=== PATIENT | male | born 1935 | race Caucasian/White ===

== ENCOUNTER 2022-08-21 04:26 | Emergency (ER) | payer OTHER, BC ==
--- OUTSIDE RECORDS SUMMARY | 2022-08-21 04:53 | XMS REPORT | Continuity of Care Document ---
:1935 Author Organization [facility] t Address [address] [place] [address] Care Team Providers Name Role Phone Philip Dawson MD Primary Care Physician BRIANNA BRAND Attending Clinician Unavailable ALAN BEAULIEU Attending Clinician Unavailable PHILIP DAWSON Attending Clinician Unavailable AMANDA ENG Attending Clinician Unavailable CHANDAN SHEEHAN Attending Clinician Unavailable CHANDAN SHEEHAN Attending Clinician Unavailable Alan Beaulieu MD Attending Clinician Antonia Bautista Attending Clinician Philip Dawson MD Attending Clinician 2, [facility] Attending Clinician Unavailable PATRICIA SERRANO Attending Clinician Unavailable Susan Wiley MD Attending Clinician Doctor Unassigned, [place] Attending Clinician Unavailable Cyrus Pablo MD Attending Clinician Unavailable Kaylee Velasquez LMSW Attending Clinician Unavailable CONNIE OSUNA Attending Clinician Unavailable Connie Ferguson Attending Clinician Adelaide Bentley LVN Attending Clinician Unavailable Lab, Ang - Db Attending Clinician Unavailable SUSAN WILEY Attending Clinician Unavailable Ania Limon LMSW Attending Clinician Brianna Portillo Attending Clinician Helen CURRICULUM AND INSTRUCTION DIRECTOR, Landon Attending Clinician LANDON CERVANTES Attending Clinician Unavailable Unknown, Attending Attending Clinician Unavailable UNKNOWN, ATTENDING Attending Clinician Unavailable Awa GROSS, Juan Muhammad Attending Clinician MARCY RUIZ Attending Clinician Unavailable Kaci CURRICULUM AND INSTRUCTION DIRECTOR, Marcy Attending Clinician JULIO MORRIS Attending Clinician Unavailable Julio Morris MD Attending Clinician Mustapha GROSS, Mickey Attending Clinician Uche MONTES, Jaylin Leach Attending Clinician Unavailable MORALES MCKEON Attending Clinician Unavailable Anuj Barroso MD Attending Clinician Reese Hanson DO Attending Clinician Morales Mckeon MD Attending Clinician Haroon DELGADO, Rita Attending Clinician SKINNY WHATLEY Attending Clinician Unavailable Susan Cueto DPM Attending Clinician SUSAN CUETO Attending Clinician Unavailable CYRUS PABLO Attending Clinician Unavailable Dora Quiros Attending Clinician Skinny Whatley MD Attending Clinician Michael Casillas MD Attending Clinician MICHAEL CASILLAS Attending Clinician Unavailable MICHAEL CASILLAS Attending Clinician Unavailable DORA MOHAN Attending Clinician Unavailable Nathan LUNA, K Brenda Attending Clinician Ambrocio Rothman DO Attending Clinician RITA PATIÑO Attending Clinician Unavailable , [facility] Vascular Room 1 - Attending Clinician Unavailable Demian Theodore MD Attending Clinician , [facility] Echo Room 1 - Attending Clinician Unavailable Gorge Chris Attending Clinician GORGE SCHILLING Attending Clinician Unavailable Lab, [facility] Fam Pob I Attending Clinician Unavailable Provider, [facility] Attending Clinician Unavailable ALAN BEAULIEU Admitting Clinician Unavailable MORALES MCKEON Admitting Clinician Unavailable Morales Mckeon MD Admitting Clinician MICHAEL CASILLAS Admitting Clinician Unavailable Reese Hanson DO Admitting Clinician Payers Payer Name Policy Type Policy Number Effective Date Expiration Date S nancie MEDICARE PART A \\T\\ [id number] 2002 B 00:00:00 [employer] TRADITIONAL [id number] 2014 00:00:00 Problems Condition Condition Condition Status Onset Resolution Last Treating Co mments Source Name Details Category Date Date Treatment Clinician Date 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 00:00: [place] stenosis stenosis 00 Medica l Branch 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 00:00: [place] stenosis stenosis 00 Medica l Branch Leg edema Leg edema Disease Active Uni vers 5-05 ity of 00:00: [place] 00 Medical Branch Urinary Urinary Disease Active Univers frequency frequency 1-03 ity of 00:00: [place] 00 Medical Branch Bad odor Bad odor Disease Active Unive rs of urine of urine 1-03 ity of 00:00: [place] 00 Medical Branch Unwitnesse Unwitnesse Disease Active 2021-02 U nivers d fall d fall 1-04 ity of 00:00: [place] 00 Medical Branch 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, disease, 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 00 Me dical cular cular Branch Obesity Obesity Disease Active 2020-02 Univers (BMI (BMI 1-10 ity of 30-39.9) 30-39.9) 00:00: 00 Medical Branch 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 1-10 ity of mellitus mellitus 00:00: [place] without without 00 Medical complicati complicati Br anch on, on, without without long-term long-term current current use of use of insulin insulin Constipati Constipati Disease Active 2020-02 U nivers on, on, 1-10 ity of unspecifie unspecifie [place] Medical constipati constipati Br anch on type on type Primary Primary Disease Active 2020-02 Univers hypertensi hypertensi 1-10 it y of on on 00:00: [place] 00 Medical Branch Pressure Pressure Disease Active 2020-02 Unive rs injury of injury of 1-10 ity of buttock, buttock, 00:00: [place] stage 1, stage 1, 00 Medica l unspecifie unspecifie Br anch d d laterality laterality COVID-19 COVID-19 Disease Active Unive rs 9-28 ity of 00:00: [place] 00 Medical Branch Allergies, Adverse Reactions, Alerts Allergy Allergy Status Severity Reaction(s) Onset Inactive Treating Comm ents Source Name Type Date Date Clinician NO KNOWN Drug Active Univers ALLERGIE Class ity of S [facility] Social History Social Habit Start Date Stop Date Quantity Comments Source History of Cigarette Smoker Universi ty of tobacco use [facility] Alcohol intake 2022-08-14 2022-08-14 Current drinker Unive rsity of 00:00:00 00:00:00 of alcohol [facility] (finding) Branch Exposure to 2022-07-04 2022-07-14 Not sure [facility] SARS-CoV-2 00:00:00 08:26:00 [place] [facility] (event) Branch History SDOH Food 2021-12-23 2021-12-23 1 Univers ity of Worry 00:00:00 00:00:00 [place] [facility] History SDOH Food 2021-12-23 2021-12-23 1 Univers ity of Scarcity 00:00:00 00:00:00 [place] [facility] History SDOH 2021-12-23 2021-12-23 2 University o f Transport Med 00:00:00 00:00:00 [place] Medic al Branch History SDOH 2021-12-23 2021-12-23 2 University o f Transport Non-Med 00:00:00 00:00:00 [facility] [place] [facility] edical Branch Education 2021-12-19 2021-12-19 12 University of 00:00:00 00:00:00 [facility] Tobacco use and 2021-12-10 2021-12-10 Smokeless tobacco Un iversity of exposure 00:00:00 00:00:00 non-user [facility] Tobacco Comment 2021-12-10 2021-12-10 quit over 30 yrs Uni versity of 00:00:00 00:00:00 ago [facility] Sex Ass[birth year] At [birth year] [facility] y of 00:00:00 00:00:00 [facility] Smoking Status Start Date Stop Date Source Ex-smoker 2021-12-10 00:00:00 2021-12-10 00:00:00 [facility] Medications Ordered Filled Start Stop Current Ordering Indication Dosage Frequency Signature Comments Components Source Medication Medication Date Date Medication? Clinician (SIG) Name Name ezetimibe Yes [id number] 10mg Take 1 Un bhumi (ZETIA) 10 7-03 tablet by ity of mg tablet [place] the Medical morning. Branch GLIMEPIRIDE Yes [id number] TAKE 1 Univers 2 mg tablet 6-23 TABLET BY ity of 00:00: MOUTH [place] 00 EVERY DAY Medical WITH Branch BREAKFAST GLIMEPIRIDE Yes [id number] TAKE 1 Univers 2 mg tablet 6-23 TABLET BY ity of 00:00: MOUTH [place] 00 EVERY DAY Medical WITH Branch BREAKFAST GLIMEPIRIDE Yes [id number] TAKE 1 Univers 2 mg tablet 6-23 TABLET BY ity of 00:00: MOUTH [place] 00 EVERY DAY Medical WITH Branch BREAKFAST GLIMEPIRIDE 0 Yes [id number] TAKE 1 Univers 2 mg tablet 6-23 TABLET BY ity of 00:00: MOUTH [place] 00 EVERY DAY Medical WITH Branch BREAKFAST GLIMEPIRIDE 0 Yes [id number] TAKE 1 Univers 2 mg tablet 6-23 TABLET BY ity of 00:00: MOUTH [place] 00 EVERY DAY Medical WITH Branch BREAKFAST potassium Yes [id number] 10meq Take 1 Univers chloride 6-12 tablet by ity of (KLOR-CON 00:[place] 10[place] 10 mEq 00 the Medical CR tablet morning. Branch potassium 2022-0 Yes [id number] 10meq Take 1 Univers chloride 6-12 tablet by ity of (KLOR-CON 00:[place] 10[place] 10 mEq 00 the Medical CR tablet morning. Branch potassium Yes [id number] 10meq Take 1 Univers chloride 6-12 tablet by ity of (KLOR-CON 00:[place]: [place] 10[place] 10 mEq 00 the Medical CR tablet morning. Branch potassium 3-0 Yes [id number] 10meq Take 1 Univers chloride 6-12 tablet by ity of (KLOR-CON 00:[place]: [place] 10[place] 10 mEq 00 the Medical CR tablet morning. Branch potassium 3-0 Yes [id number] 10meq Take 1 Univers chloride 6-12 tablet by ity of (KLOR-CON 00:00: [place] 10[place] 10 mEq 00 the Medical CR tablet morning. Branch potassium 3-0 Yes [id number] 10meq Take 1 Univers chloride 6-12 tablet by ity of (KLOR-CON 00:00: [place] 10[place] 10 mEq 00 the Medical CR tablet morning. Branch potassium 3-0 Yes [id number] 10meq Take 1 Univers chloride 6-12 tablet by ity of (KLOR-CON 00:00: [place] 10) 10 mEq 00 the Medical CR tablet morning. Branch potassium 3-0 Yes [id number] 10meq Take 1 Univers chloride 6-12 tablet by ity of (KLOR-CON 00:00: [place] 10[place] 10 mEq 00 the Medical CR tablet morning. Branch potassium 3-0 Yes [id number] 10meq Take 1 Univers chloride 6-12 tablet by ity of (KLOR-CON 00:00: [place] 10) 10 mEq 00 the Medical CR tablet morning. Branch potassium 3-0 Yes [id number] 10meq Take 1 Univers chloride 6-12 tablet by ity of (KLOR-CON 00:00: [place] 10[place] 10 mEq 00 the Medical CR tablet morning. Branch potassium 3-0 Yes [id number] 10meq Take 1 Univers chloride 6-12 tablet by ity of (KLOR-CON 00:[place]: [place] 10[place] 10 mEq 00 the Medical CR tablet morning. Branch potassium 3-0 Yes [id number] 10meq Take 1 Univers chloride 6-12 tablet by ity of (KLOR-CON 00:00: [place] 10[place] 10 mEq 00 the Medical CR tablet morning. Branch potassium 3-0 Yes [id number] 10meq Take 1 Univers chloride 6-12 tablet by ity of (KLOR-CON 00:[place]: [place] 10[place] 10 mEq 00 the Medical CR tablet morning. Branch potassium 3-0 Yes [id number] 10meq Take 1 Univers chloride 6-12 tablet by ity of (KLOR-CON 00:[place]: [place] 10) 10 mEq 00 the Medical CR tablet morning. Branch glimepiride 2022-0 Yes [id number] 2mg Take 1 Univers 2 mg tablet 6-05 tablet by ity of 00:00: mouth [place] 00 daily with Medical breakfast. Branch ezetimibe 2022-0 Yes [id number] 10mg Take 1 Un bhumi (ZETIA) 10 6-05 tablet by ity of mg tablet 00:00: [place] the Medical morning. Branch glimepiride 3-0 Yes [id number] 2mg Take 1 Univers 2 mg tablet 6-05 tablet by ity of 00:00: mouth [place] 00 daily with Medical breakfast. Branch ezetimibe 2022-0 Yes [id number] 10mg Take 1 Un [facility] (ZETIA) 10 6-05 tablet by ity of mg tablet 00:00: [place] the Medical morning. Branch glimepiride 3-0 Yes [id number] 2mg Take 1 Univers 2 mg tablet 6-05 tablet by ity of 00:00: mouth [place] 00 daily with Medical breakfast. Branch ezetimibe 3-0 Yes [id number] 10mg Take 1 Un [facility] (ZETIA) 10 6-05 tablet by ity of mg tablet 00:00: [place] the Medical morning. Branch glimepiride 3-0 Yes [id number] 2mg Take 1 Univers 2 mg tablet 6-05 tablet by ity of 00:00: mouth [place] 00 daily with Medical breakfast. Branch ezetimibe 3-0 Yes [id number] 10mg Take 1 Un [facility] (ZETIA) 10 6-05 tablet by ity of mg tablet 00:00: [place] 00 the Medical morning. Branch glimepiride 3-0 Yes [id number] 2mg Take 1 Univers 2 mg tablet 6-05 tablet by ity of 00:00: mouth [place] 00 daily with Medical breakfast. Branch ezetimibe 2023-0 Yes [id number] 10mg Take 1 Un [facility] (ZETIA) 10 6-05 tablet by ity of mg tablet 00:00: [place] 00 the Medical morning. Branch glimepiride 3-0 Yes [id number] 2mg Take 1 Univers 2 mg tablet 6-05 tablet by ity of 00:00: mouth [place] 00 daily with Medical breakfast. Branch ezetimibe 2023-0 Yes [id number] 10mg Take 1 Un [facility] (ZETIA) 10 6-05 tablet by ity of mg tablet 00:00: [place] 00 the Medical morning. Branch glimepiride 3-0 Yes [id number] 2mg Take 1 Univers 2 mg tablet 6-05 tablet by ity of 00:00: mouth [place] 00 daily with Medical breakfast. Branch ezetimibe 2023-0 Yes [id number] 10mg Take 1 Un [facility] (ZETIA) 10 6-05 tablet by ity of mg tablet 00:00: [place] the Medical morning. Branch glimepiride 3-0 Yes [id number] 2mg Take 1 Univers 2 mg tablet 6-05 tablet by ity of 00:00: mouth [place] 00 daily with Medical breakfast. Branch ezetimibe 3-0 Yes [id number] 10mg Take 1 Un [facility] (ZETIA) 10 6-05 tablet by ity of mg tablet 00:00: [place] 00 the Medical morning. Branch glimepiride 2023-0 Yes [id number] 2mg Take 1 Univers 2 mg tablet 6-05 tablet by ity of 00:00: mouth [place] 00 daily with Medical breakfast. Branch ezetimibe 3-0 Yes [id number] 10mg Take 1 Un [facility] (ZETIA) 10 6-05 tablet by ity of mg tablet 00:00: [place] 00 the Medical morning. Branch glimepiride 2023-0 Yes [id number] 2mg Take 1 Univers 2 mg tablet 6-05 tablet by ity of 00:00: mouth [place] 00 daily with Medical breakfast. Branch ezetimibe 2023-0 Yes [id number] 10mg Take 1 Un [facility] (ZETIA) 10 6-05 tablet by ity of mg tablet 00:00: [place] 00 the Medical morning. Branch glimepiride 2023-0 Yes [id number] 2mg Take 1 Univers 2 mg tablet 6-05 tablet by ity of 00:00: mouth [place] 00 daily with Medical breakfast. Branch ezetimibe 2023-0 Yes [id number] 10mg Take 1 Un [facility] (ZETIA) 10 6-05 tablet by ity of mg tablet 00:00: [place] 00 the Medical morning. Branch glimepiride 2023-0 Yes [id number] 2mg Take 1 Univers 2 mg tablet 6-05 tablet by ity of 00:00: mouth [place] 00 daily with Medical breakfast. Branch ezetimibe 2023-0 Yes [id number] 10mg Take 1 Un [facility] (ZETIA) 10 6-05 tablet by ity of mg tablet 00:00: [place] 00 the Medical morning. Branch glimepiride 2023-0 Yes [id number] 2mg Take 1 Univers 2 mg tablet 6-05 tablet by ity of 00:00: mouth [place] 00 daily with Medical breakfast. Branch ezetimibe 2023-0 Yes [id number] 10mg Take 1 Un [facility] (ZETIA) 10 6-05 tablet by ity of mg tablet 00:00: [place] 00 the Medical morning. Branch glimepiride 3-0 Yes [id number] 2mg Take 1 Univers 2 mg tablet 6-05 tablet by ity of 00:00: mouth [place] 00 daily with Medical breakfast. Branch ezetimibe 2023-0 Yes [id number] 10mg Take 1 Un [facility] (ZETIA) 10 6-05 tablet by ity of mg tablet 00:00: [place] 00 the Medical morning. Branch glimepiride 2023-0 Yes [id number] 2mg Take 1 Univers 2 mg tablet 6-05 tablet by ity of 00:00: mouth [place] 00 daily with Medical breakfast. Branch ezetimibe 2023-0 Yes [id number] 10mg Take 1 Un b[facility] (ZETIA) 10 6-05 tablet by ity of mg tablet 00:00: [place] 00 the Medical morning. Branch ezetimibe 2023-0 Yes [id number] 10mg Take 1 Un [facility] (ZETIA) 10 6-05 tablet by ity of mg tablet 00:00: [place] 00 the Medical morning. Branch ezetimibe 0 Yes [id number] 10mg Take 1 Un [facility] (ZETIA) 10 6-05 tablet by ity of mg tablet 00:00: [place] 00 the Medical morning. Branch ezetimibe 0 Yes [id number] 10mg Take 1 Un [facility] (ZETIA) 10 6-05 tablet by ity of mg tablet 00:00: [place] 00 the Medical morning. Branch ezetimibe 0 2022- No [id number] 10mg Take 1 U nivers (ZETIA) 10 6-05 07-03 tablet by ity of mg tablet 00:00: 00:00 mouth [place] :00 the Medical morning. Branch glimepiride 2022- No [id number] 2mg Take 1 Univers 2 mg tablet 07-20 tablet by it y of 00:00: 00:00 mouth [place] 00 :00 daily with Medical breakfast. Branch triamcinolo 2022- No [id number] 40mg U nivers ne 5- 05-30 ity of acetonide 14:30: 13:43 [place] (KENALOG) 00 :00 Medical injection Branch 40 mg triamcinolo 2022- No [id number] 40mg 40 mg, Univers ne 5-30 05-30 Intramuscu ity of acetonide 14:30: 13:43 [place], [place] (KE[place]LOG[place] 00 :00 1 dose, On Medi jennifer injection Tue Branch 40 mg 07/14/22 at 0930, Routine triamcinolo 2022- No [id number] 40mg U nivers ne 5-30 05-30 ity of acetonide 14:30: 13:43 [place] (KENALOG) 00 :00 Medical injection Branch 40 mg triamcinolo 2022- No [id number] 40mg 40 mg, Univers ne 5-30 05-30 Intramuscu ity of acetonide 14:30: 13:43 [place] (KE[place]LOG[place] 00 :00 1 dose, On Medi jennifer injection Tue Branch 40 mg 07/14/22 at 0930, Routine triamcinolo 2022- No [id number] 40mg U nivers ne 5-30 05-30 ity of acetonide 14:30: 13:43 [place] (KENALOG) 00 :00 Medical injection Branch 40 mg triamcinolo 2022- No [id number] 40mg 40 mg, Univers ne -30 05-30 Intramuscu ity of acetonide 14:30: 13:43 [place], [place], [place] (KE[place]LOG) 00 :00 1 dose, On Medi jennifer injection Tue Branch 40 mg 07/14/22 at 0930, Routine triamcinolo 2022- No [id number] 40mg U nivers ne 5 05-30 ity of acetonide 14:30: 13:43 [place] (KENALOG) 00 :00 Medical injection Branch 40 mg triamcinolo 2022- No [id number] 40mg 40 mg, Univers ne 5- 05-30 Intramuscu ity of acetonide 14:30: 13:43 [place], ONCE, [place] (KENALOG) 00 :00 1 dose, On Medi jennifer injection Tue Branch 40 mg 07/14/22 at 0930, Routine potassium Yes [id number] 10meq Take 1 Univers chloride 5-22 tablet by ity of (KLOR-CON 00:00: [place] 10) 10 mEq 00 the Medical CR tablet morning. Branch potassium Yes [id number] 10meq Take 1 Univers chloride 5-22 tablet by ity of (KLOR-CON 00:00: [place] 10) 10 mEq 00 the Medical CR tablet morning. Branch potassium Yes [id number] 10meq Take 1 Univers chloride 5-22 tablet by ity of (KLOR-CON 00:00: [place] 10) 10 mEq 00 the Medical CR tablet morning. Branch potassium 0 Yes [id number] 10meq Take 1 Univers chloride 5-22 tablet by ity of (KLOR-CON 00:00: [place] 10) 10 mEq 00 the Medical CR tablet morning. Branch potassium Yes [id number] 10meq Take 1 Univers chloride 5-22 tablet by ity of (KLOR-CON 00:00: [place] 10) 10 mEq 00 the Medical CR tablet morning. Branch potassium 2023-0 Yes [id number] 10meq Take 1 Univers chloride 5-22 tablet by ity of (KLOR-CON 00:00: [place] 10) 10 mEq 00 the Medical CR tablet morning. Branch potassium 2023-0 Yes [id number] 10meq Take 1 Univers chloride 5-22 tablet by ity of (KLOR-CON 00:00: [place] 10) 10 mEq 00 the Medical CR tablet morning. Branch potassium 2023-0 Yes [id number] 10meq Take 1 Univers chloride 5-22 tablet by ity of (KLOR-CON 00:00: [place] 10) 10 mEq 00 the Medical CR tablet morning. Branch potassium 2023-0 Yes [id number] 10meq Take 1 Univers chloride 5-22 tablet by ity of (KLOR-CON 00:00: [place] 10) 10 mEq 00 the Medical CR tablet morning. Branch potassium 2023-0 Yes [id number] 10meq Take 1 Univers chloride 5-22 tablet by ity of (KLOR-CON 00:00: [place] 10) 10 mEq 00 the Medical CR tablet morning. Branch potassium 2023-0 Yes [id number] 10meq Take 1 Univers chloride 5-22 tablet by ity of (KLOR-CON 00:00: [place] 10) 10 mEq 00 the Medical CR tablet morning. Branch potassium 2023-0 Yes [id number] 10meq Take 1 Univers chloride 5-22 tablet by ity of (KLOR-CON 00:00: [place] 10) 10 mEq 00 the Medical CR tablet morning. Branch potassium 2023-0 Yes [id number] 10meq Take 1 Univers chloride 5-22 tablet by ity of (KLOR-CON 00:00: [place] 10) 10 mEq 00 the Medical CR tablet morning. Branch potassium 2023-0 Yes [id number] 10meq Take 1 Univers chloride 5-22 tablet by ity of (KLOR-CON 00:00: [place] 10) 10 mEq 00 the Medical CR tablet morning. Branch potassium 2023-0 Yes [id number] 10meq Take 1 Univers chloride 5-22 tablet by ity of (KLOR-CON 00:00: [place] 10) 10 mEq 00 the Medical CR tablet morning. Branch potassium 2022-0 Yes [id number] 10meq Take 1 Univers chloride 5-22 tablet by ity of (KLOR-CON 00:00: [place] 10) 10 mEq 00 the Medical CR tablet morning. Branch potassium 2022-0 Yes [id number] 10meq Take 1 Univers chloride 5-22 tablet by ity of (KLOR-CON 00:00: [place] 10) 10 mEq 00 the Medical CR tablet morning. Branch potassium 2022-0 2022- No [id number] 10meq Take 1 Univers chloride 5-22 06-12 tablet by ity o f (KLOR-CON 00:00: 00:00 [place] 10) 10 mEq 00 :00 the Medical CR tablet morning. Branch potassium 2022-0 2022- No [id number] 10meq Take 1 Univers chloride 5-22 06-12 tablet by ity o f (KLOR-CON 00:00: 00:00 [place] 10) 10 mEq 00 :00 the Medical CR tablet morning. Branch potassium 2022-0 2022- No [id number] 10meq Take 1 Univers chloride 5-22 06-12 tablet by ity o f (KLOR-CON 00:00: 00:00 [place] 10) 10 mEq 00 :00 the Medical CR tablet morning. Branch potassium 2022-0 2022- No [id number] 10meq Take 1 Univers chloride 5-22 06-12 tablet by ity o f (KLOR-CON 00:00: 00:00 [place] 10) 10 mEq 00 :00 the Medical CR tablet morning. Branch potassium 2022-0 2022- No [id number] 10meq Take 1 Univers chloride 5-22 06-12 tablet by ity o f (KLOR-CON 00:00: 00:00 mouth in [place] 10) 10 mEq 00 :00 the Medical CR tablet morning. Branch LACTULOSE 2022-0 Yes [id number] TAKE 15 ML Univers 10 gram/15 5-10 BY MOUTH ity o f mL solution 00:00: DAILY [place] [id number] Medical Branch LACTULOSE 3-0 Yes [id number] TAKE 15 ML Univers 10 gram/15 5-10 BY MOUTH ity o f mL solution 00:00: DAILY Medical Branch LACTULOSE 2023-0 Yes [id number] TAKE 15 ML Univers 10 gram/15 5-10 BY MOUTH ity o f mL solution 00:00: DAILY Medical Branch LACTULOSE 2023-0 Yes [id number] TAKE 15 ML Univers 10 gram/15 5-10 BY MOUTH ity o f mL solution 00:00: DAILY Medical Branch LACTULOSE 2023-0 Yes [id number] TAKE 15 ML Univers 10 gram/15 5-10 BY MOUTH ity o f mL solution 00:00: DAILY Medical Branch LACTULOSE 2023-0 Yes [id number] TAKE 15 ML Univers 10 gram/15 5-10 BY MOUTH ity o f mL solution 00:00: DAILY Medical Branch LACTULOSE 2023-0 Yes [id number] TAKE 15 ML Univers 10 gram/15 5-10 BY MOUTH ity o f mL solution 00:00: DAILY Medical Branch LACTULOSE 2023-0 Yes [id number] TAKE 15 ML Univers 10 gram/15 5-10 BY MOUTH ity o f mL solution 00:00: DAILY Medical Branch LACTULOSE 2023-0 Yes [id number] TAKE 15 ML Univers 10 gram/15 5-10 BY MOUTH ity o f mL solution 00:00: DAILY Medical Branch LACTULOSE 2023-0 Yes [id number] TAKE 15 ML Univers 10 gram/15 5-10 BY MOUTH ity o f mL solution 00:00: DAILY Medical Branch LACTULOSE 2023-0 Yes [id number] TAKE 15 ML Univers 10 gram/15 5-10 BY MOUTH ity o f mL solution 00:00: DAILY Medical Branch LACTULOSE 2023-0 Yes [id number] TAKE 15 ML Univers 10 gram/15 5-10 BY MOUTH ity o f mL solution 00:00: DAILY Medical Branch LACTULOSE 2023-0 Yes [id number] TAKE 15 ML Univers 10 gram/15 5-10 BY MOUTH ity o f mL solution 00:00: DAILY Medical Branch LACTULOSE 2023-0 Yes [id number] TAKE 15 ML Univers 10 gram/15 5-10 BY MOUTH ity o f mL solution 00:00: DAILY Medical Branch LACTULOSE 2023-0 Yes [id number] TAKE 15 ML Univers 10 gram/15 5-10 BY MOUTH ity o f mL solution 00:00: DAILY Medical Branch LACTULOSE 2023-0 Yes [id number] TAKE 15 ML Univers 10 gram/15 5-10 BY MOUTH ity o f mL solution 00:00: DAILY Medical Branch LACTULOSE 2023-0 Yes [id number] TAKE 15 ML Univers 10 gram/15 5-10 BY MOUTH ity o f mL solution 00:00: DAILY Medical Branch LACTULOSE 2023-0 Yes [id number] TAKE 15 ML Univers 10 gram/15 5-10 BY MOUTH ity o f mL solution 00:00: DAILY Medical Branch LACTULOSE 2023-0 Yes [id number] TAKE 15 ML Univers 10 gram/15 5-10 BY MOUTH ity o f mL solution 00:00: DAILY Medical Branch LACTULOSE 2023-0 Yes [id number] TAKE 15 ML Univers 10 gram/15 5-10 BY MOUTH ity o f mL solution 00:00: DAILY Medical Branch LACTULOSE 2023-0 Yes [id number] TAKE 15 ML Univers 10 gram/15 5-10 BY MOUTH ity o f mL solution 00:00: DAILY Medical Branch LACTULOSE 2023-0 Yes [id number] TAKE 15 ML Univers 10 gram/15 5-10 BY MOUTH ity o f mL solution 00:00: DAILY Medical Branch LACTULOSE 2023-0 Yes [id number] TAKE 15 ML Univers 10 gram/15 5-10 BY MOUTH ity o f mL solution 00:00: DAILY Medical Branch LACTULOSE 2023-0 Yes [id number] TAKE 15 ML Univers 10 gram/15 5-10 BY MOUTH ity o f mL solution 00:00: DAILY Medical Branch LACTULOSE 2023-0 Yes [id number] TAKE 15 ML Univers 10 gram/15 5-10 BY MOUTH ity o f mL solution 00:00: DAILY Medical Branch LACTULOSE 2023-0 Yes [id number] TAKE 15 ML Univers 10 gram/15 5-10 BY MOUTH ity o f mL solution 00:00: DAILY Medical Branch LACTULOSE 2023-0 Yes [id number] TAKE 15 ML Univers 10 gram/15 5-10 BY MOUTH ity o f mL solution 00:00: DAILY Medical Branch LACTULOSE 2023-0 Yes [id number] TAKE 15 ML Univers 10 gram/15 5-10 BY MOUTH ity o f mL solution 00:00: DAILY [facility] LACTULOSE 2023-0 Yes [id number] TAKE 15 ML [facility] 10 gram/15 5-10 BY MOUTH ity o f mL solution 00:00: DAILY [facility] LACTULOSE 2023-0 Yes [id number] TAKE 15 ML [facility] 10 gram/15 5-10 BY MOUTH [facility] o f mL solution 00:00: DAILY [facility] LACTULOSE 2023-0 Yes [id number] TAKE 15 ML [facility] 10 gram/15 5-10 BY MOUTH [facility] o f mL solution 00:00: DAILY [facility] LACTULOSE 2023-0 Yes [id number] TAKE 15 ML [facility] 10 gram/15 5-10 BY MOUTH [facility] o f mL solution 00:00: DAILY [facility] LACTULOSE 3-0 Yes [id number] TAKE 15 ML [facility] 10 gram/15 5-10 BY MOUTH it[facility] o f mL solution 00:00: DAILY [facility] LACTULOSE 3-0 Yes [id number] TAKE 15 ML [facility] 10 gram/15 5-10 BY MOUTH it[facility] o f mL solution 00:00: DAILY [facility] LACTULOSE 3-0 Yes [id number] TAKE 15 ML [facility] 10 gram/15 5-10 BY MOUTH [facility] o f mL solution 00:00: DAILY [facility] LACTULOSE 3-0 Yes [id number] TAKE 15 ML [facility] 10 gram/15 5-10 BY MOUTH [facility] o f mL solution 00:00: DAILY [facility] LACTULOSE 2023-0 Yes [id number] TAKE 15 ML [facility] 10 gram/15 5-10 BY MOUTH it[facility] o f mL solution 00:00: DAILY [facility] LACTULOSE 2023-0 Yes [id number] TAKE 15 ML [facility] 10 gram/15 5-10 BY MOUTH it[facility] o f mL solution 00:00: DAILY [facility] LACTULOSE 2023-0 Yes [id number] TAKE 15 ML [facility] 10 gram/15 5-10 BY MOUTH it[facility] o f mL solution 00:00: DAILY [facility] LACTULOSE 2023-0 Yes [id number] TAKE 15 ML [facility] 10 gram/15 5-10 BY MOUTH it[facility] o f mL solution 00:00: DAILY [facility] ezetimibe 2023-0 Yes [id number] 10mg Take 1 [facility] (ZETIA) 10 5-08 tablet by [facility] mg tablet 00:00: [place] the Medical morning. [facility] ezetimibe 2023-0 Yes [id number] 10mg Take 1 [facility] (ZETIA) 10 5-08 tablet by [facility] mg tablet 00:00: mouth [place] 00 the Medical morning. [facility] ezetimibe 2023-0 Yes [id number] 10mg Take 1 [facility] (ZETIA) 10 5-08 tablet by [facility] mg tablet 00:00: mouth [place] 00 the Medical morning. [facility] ezetimibe 2023-0 Yes [id number] 10mg Take 1 [facility] (ZETIA) 10 5-08 tablet by [facility] tablet 00:00: mouth [place] 00 the Medical morning. [facility] ezetimibe 2023-0 Yes [id number] 10mg Take 1 [facility] (ZETIA) 10 5-08 tablet by [facility] tablet 00:00: mouth [place] 00 the Medical morning. [facility] ezetimibe 2023-0 Yes [id number] 10mg Take 1 [facility] (ZETIA) 10 5-08 tablet by [facility] mg tablet 00:00: mouth [place] 00 the Medical morning. [facility] ezetimibe 2023-0 Yes [id number] 10mg Take 1 [facility] (ZETIA) 10 5-08 tablet by [facility] mg tablet 00:00: mouth [place] 00 the Medical morning. [facility] ezetimibe 2023-0 Yes [id number] 10mg Take 1 [facility] (ZETIA) 10 5-08 tablet by [facility] mg tablet 00:00: mouth [place] 00 the Medical morning. [facility] ezetimibe 2023-0 Yes [id number] 10mg Take 1 [facility] (ZETIA) 10 5-08 tablet by [facility] mg tablet 00:00: mouth [place] 00 the Medical morning. [facility] ezetimibe 2023-0 Yes [id number] 10mg Take 1 [facility] (ZETIA) 10 5-08 tablet by [facility] mg tablet 00:00: mouth [place] 00 the Medical morning. [facility] ezetimibe 2023-0 Yes [id number] 10mg Take 1 [facility] (ZETIA) 10 5-08 tablet by [facility] mg tablet 00:00: mouth [place] 00 the Medical morning. [facility] ezetimibe 2023-0 Yes [id number] 10mg Take 1 [facility] (ZETIA) 10 5-08 tablet by [facility] mg tablet 00:00: mouth [place] 00 the Medical morning. [facility] ezetimibe 2023-0 Yes [id number] 10mg Take 1 [facility] (ZETIA) 10 5-08 tablet by [facility] mg tablet 00:00: mouth [place] 00 the Medical morning. Branch ezetimibe 2023-0 Yes [id number] 10mg Take 1 [facility] (ZETIA) 10 5-08 tablet by [facility] mg tablet 00:00: mouth [place] 00 the Medical morning. [facility] ezetimibe 2023-0 Yes [id number] 10mg Take 1 [facility] (ZETIA) 10 5-08 tablet by [facility] mg tablet 00:00: mouth [place] 00 the Medical morning. Branch ezetimibe 2023-0 Yes [id number] 10mg Take 1 [facility] (ZETIA) 10 5-08 tablet by [facility] mg tablet 00:00: mouth [place] 00 the Medical morning. Branch ezetimibe 2023-0 Yes [id number] 10mg Take 1 [facility] (ZETIA) 10 5-08 tablet by [facility] mg tablet 00:00: mouth [place] 00 the Medical morning. Branch ezetimibe 2023-0 Yes [id number] 10mg Take 1 [facility] (ZETIA) 10 5-08 tablet by [facility] mg tablet 00:00: mouth [place] 00 the Medical morning. Branch ezetimibe 2023-0 Yes [id number] 10mg Take 1 [facility] (ZETIA) 10 5-08 tablet by [facility] mg tablet 00:00: mouth [place] 00 the Medical morning. Branch ezetimibe 2023-0 Yes [id number] 10mg Take 1 [facility] (ZETIA) 10 5-08 tablet by [facility] mg tablet 00:00: mouth [place] 00 the Medical morning. Branch ezetimibe 2023-0 Yes [id number] 10mg Take 1 [facility] (ZETIA) 10 5-08 tablet by [facility] mg tablet 00:00: mouth [place] 00 the Medical morning. Branch ezetimibe 2023-0 Yes [id number] 10mg Take 1 [facility] (ZETIA) 10 5-08 tablet by ity of mg tablet 00:00: mouth in [facility] 00 the Medical morning. Branch ezetimibe 2022-0 Yes [id number] 10mg Take 1 [facility] (ZETIA) 10 5-08 tablet by ity of mg tablet 00:00: mouth in [facility] 00 the Medical morning. Branch ezetimibe 2022-0 2023- No [id number] 10mg Take 1 [facility] (ZETIA) 10 5-08 06-04 tablet by ity of mg tablet 00:00: 00:00 mouth in [place] :00 the Medical morning. Branch furosemide 2022-0 Yes [id number] 40mg Take 1 [facility] 40 mg 5-05 tablet by it[facility] of tablet 00:00: mouth in [place] 00 the Medical morning. Branch furosemide 3-0 Yes [id number] 40mg Take 1 [facility] 40 mg 5-05 tablet by ity of tablet 00:00: mouth in [place] 00 the Medical morning. Branch furosemide 3-0 Yes [id number] 40mg Take 1 [facility] 40 mg 5-05 tablet by ity of tablet 00:00: mouth in [place] 00 the Medical morning. Branch furosemide 3-0 Yes [id number] 40mg Take 1 [facility] 40 mg 5-05 tablet by ity of tablet 00:00: mouth in [place] 00 the Medical morning. Branch furosemide 3-0 Yes [id number] 40mg Take 1 [facility] 40 mg 5-05 tablet by ity of tablet 00:00: mouth in [place] 00 the Medical morning. Branch furosemide 3-0 Yes [id number] 40mg Take 1 [facility] 40 mg 5-05 tablet by ity of tablet 00:00: mouth in [place] 00 the Medical morning. Branch furosemide 3-0 Yes [id number] 40mg Take 1 [facility] 40 mg 5-05 tablet by ity of tablet 00:00: mouth in [place] 00 the Medical morning. Branch furosemide 2023-0 Yes [id number] 40mg Take 1 [facility] 40 mg 5-05 tablet by ity of tablet 00:00: mouth in [place] 00 the Medical morning. Branch furosemide 2023-0 Yes [id number] 40mg Take 1 [facility] 40 mg 5-05 tablet by ity of tablet 00:00: mouth in [place] 00 the Medical morning. Branch furosemide 2023-0 Yes [id number] 40mg Take 1 [facility] 40 mg 5-05 tablet by ity of tablet 00:00: mouth in [place] the Medical morning. Branch furosemide 2023-0 Yes [id number] 40mg Take 1 [facility] 40 mg 5-05 tablet by ity of tablet 00:00: mouth in [place] the Medical morning. Branch furosemide 2023-0 Yes [id number] 40mg Take 1 [facility] 40 mg 5-05 tablet by it[facility] of tablet 00:00: mouth in [place] the Medical morning. Branch furosemide 2023-0 Yes [id number] 40mg Take 1 [facility] 40 mg 5-05 tablet by ity of tablet 00:00: mouth in [place] the Medical morning. Branch furosemide 2023-0 Yes [id number] 40mg Take 1 [facility] 40 mg 5-05 tablet by ity of tablet 00:00: mouth in [place] the Medical morning. Branch furosemide 2023-0 Yes [id number] 40mg Take 1 [facility] 40 mg 5-05 tablet by ity of tablet 00:00: mouth in [place] the Medical morning. Branch furosemide 2023-0 Yes [id number] 40mg Take 1 [facility] 40 mg 5-05 tablet by ity of tablet 00:00: mouth in [place] the Medical morning. Branch furosemide 2023-0 Yes [id number] 40mg Take 1 [facility] 40 mg 5-05 tablet by ity of tablet 00:00: mouth in [place] the Medical morning. Branch furosemide 2023-0 Yes [id number] 40mg Take 1 [facility] 40 mg 5-05 tablet by it[facility] of tablet 00:00: mouth in [place] the Medical morning. Branch furosemide 2023-0 Yes [id number] 40mg Take 1 [facility] 40 mg 5-05 tablet by ity of tablet 00:00: mouth in [place] the Medical morning. Branch furosemide 2023-0 Yes [id number] 40mg Take 1 [facility] 40 mg 5-05 tablet by ity of tablet 00:00: mouth in [place] the Medical morning. Branch furosemide 2023-0 Yes [id number] 40mg Take 1 [facility] 40 mg 5-05 tablet by [facility]y of tablet 00:00: mouth in [place] the Medical morning. Branch furosemide 2023-0 Yes [id number] 40mg Take 1 [facility] 40 mg 5-05 tablet by ity of tablet 00:00: mouth in [place] the Medical morning. Branch furosemide 2023-0 Yes [id number] 40mg Take 1 [facility] 40 mg 5-05 tablet by ity of tablet 00:00: mouth in [place] 00 the Medical morning. Branch furosemide 2023-0 Yes [id number] 40mg Take 1 [facility] 40 mg 5-05 tablet by ity of tablet 00:00: mouth in [place] the Medical morning. Branch furosemide 2023-0 Yes [id number] 40mg Take 1 [facility] 40 mg 5-05 tablet by ity of tablet 00:00: mouth in [place] the Medical morning. Branch furosemide 2023-0 Yes [id number] 40mg Take 1 [facility] 40 mg 5-05 tablet by ity of tablet 00:00: mouth in [place] the Medical morning. Branch furosemide 2023-0 Yes [id number] 40mg Take 1 [facility] 40 mg 5-05 tablet by ity of tablet 00:00: mouth in [place] the Medical morning. Branch furosemide 2023-0 Yes [id number] 40mg Take 1 [facility] 40 mg 5-05 tablet by ity of tablet 00:00: mouth in [place] the Medical morning. Branch furosemide 2023-0 Yes [id number] 40mg Take 1 [facility] 40 mg 5-05 tablet by ity of tablet 00:00: mouth in [place] the Medical morning. Branch furosemide 2023-0 Yes [id number] 40mg Take 1 [facility] 40 mg 5-05 tablet by ity of tablet 00:00: mouth in [place] the Medical morning. Branch furosemide 2023-0 Yes [id number] 40mg Take 1 [facility] 40 mg 5-05 tablet by it[facility] of tablet 00:00: mouth in [place] the Medical morning. Branch furosemide 2023-0 Yes [id number] 40mg Take 1 [facility] 40 mg 5-05 tablet by it[facility] of tablet 00:00: mouth in [place] the Medical morning. Branch furosemide 2023-0 Yes [id number] 40mg Take 1 [facility] 40 mg 5-05 tablet by it[facility] of tablet 00:00: mouth in [place] the Medical morning. Branch furosemide 2023-0 Yes [id number] 40mg Take 1 [facility] 40 mg 5-05 tablet by [facility] of tablet 00:00: mouth in [place] 00 the Medical morning. Branch furosemide 2023-0 Yes [id number] 40mg Take 1 [facility] 40 mg 5-05 tablet by ity of tablet 00:00: mouth in [place] 00 the Medical morning. Branch furosemide 2023-0 Yes [id number] 40mg Take 1 [facility] 40 mg 5-05 tablet by ity of tablet 00:00: mouth in [place] 00 the Medical morning. Branch furosemide 2023-0 Yes [id number] 40mg Take 1 [facility] 40 mg 5-05 tablet by ity of tablet 00:00: mouth in [place] 00 the Medical morning. Branch furosemide 2023-0 Yes [id number] 40mg Take 1 [facility] 40 mg 5-05 tablet by ity of tablet 00:00: mouth in [place] 00 the Medical morning. Branch furosemide 2023-0 Yes [id number] 40mg Take 1 [facility] 40 mg 5-05 tablet by ity of tablet 00:00: mouth in [place] 00 the Medical morning. Branch furosemide 2023-0 Yes [id number] 40mg Take 1 [facility] 40 mg 5-05 tablet by ity of tablet 00:00: mouth in [place] 00 the Medical morning. Branch furosemide 2023-0 Yes [id number] 40mg Take 1 [facility] 40 mg 5-05 tablet by ity of tablet 00:00: mouth in [place] the Medical morning. Branch furosemide 2023-0 Yes [id number] 40mg Take 1 [facility] 40 mg 5-05 tablet by ity of tablet 00:00: mouth in [place] 00 the Medical morning. Branch furosemide 2023-0 Yes [id number] 40mg Take 1 [facility] 40 mg 5-05 tablet by ity of tablet 00:00: mouth in [place] the Medical morning. Branch furosemide 2023-0 Yes [id number] 40mg Take 1 [facility] 40 mg 5-05 tablet by ity of tablet 00:00: mouth in [place] 00 the Medical morning. Branch furosemide 2023-0 Yes [id number] Take one [facility] 40 mg 4-21 tablet by ity of tablet 00:00: mouth [place] 00 twice a Medical day for Branch one week then decrease to daily then every other day based on weight gain/swell ing furosemide 2023-0 Yes [id number] Take one [facility] 40 mg 4-21 tablet by ity of tablet 00:00: mouth [place] 00 twice a Medical day for Branch one week then decrease to daily then every other day based on weight gain/swell ing furosemide 2023-0 Yes [id number] Take one [facility] 40 mg 4-21 tablet by ity of tablet 00:00: mouth [place] 00 twice a Medical day for Branch one week then decrease to daily then every other day based on weight gain/swell ing furosemide 2023-0 Yes [id number] Take one [facility] 40 mg 4-21 tablet by ity of tablet 00:00: mouth [place] 00 twice a Medical day for Branch one week then decrease to daily then every other day based on weight gain/swell ing furosemide 2023-0 Yes [id number] Take one [facility] 40 mg 4-21 tablet by ity of tablet 00:00: mouth [place] 00 twice a Medical day for Branch one week then decrease to daily then every other day based on weight gain/swell ing furosemide 2023-0 Yes [id number] Take one [facility] 40 mg 4-21 tablet by ity of tablet 00:00: mouth [place] 00 twice a Medical day for Branch one week then decrease to daily then every other day based on weight gain/swell ing furosemide 2023-0 Yes [id number] Take one [facility] 40 mg 4-21 tablet by ity of tablet 00:00: mouth [place] 00 twice a Medical day for Branch one week then decrease to daily then every other day based on weight gain/swell ing furosemide 2023-0 Yes [id number] Take one [facility] 40 mg 4-21 tablet by ity of tablet 00:00: mouth [place] 00 twice a Medical day for Branch one week then decrease to daily then every other day based on weight gain/swell ing furosemide 2023-0 Yes [id number] Take one [facility] 40 mg 4-21 tablet by ity of tablet 00:00: mouth [place] 00 twice a Medical day for Branch one week then decrease to daily then every other day based on weight gain/swell ing furosemide 2023-0 Yes [id number] Take one [facility] 40 mg 4-21 tablet by ity of tablet 00:00: mouth [place] 00 twice a Medical day for Branch one week then decrease to daily then every other day based on weight gain/swell ing furosemide 2023-0 Yes [id number] Take one [facility] 40 mg 4-21 tablet by ity of tablet 00:00: mouth [place] 00 twice a Medical day for Branch one week then decrease to daily then every other day based on weight gain/swell ing furosemide 2023-0 Yes [id number] Take one [facility] 40 mg 4-21 tablet by ity of tablet 00:00: mouth [place] 00 twice a Medical day for Branch one week then decrease to daily then every other day based on weight gain/swell ing furosemide 2023-0 Yes [id number] Take one [facility] 40 mg 4-21 tablet by ity of tablet 00:00: mouth [place] 00 twice a Medical day for Branch one week then decrease to daily then every other day based on weight gain/swell ing furosemide 2023-0 Yes [id number] Take one [facility] 40 mg 4-21 tablet by ity of tablet 00:00: mouth [place] 00 twice a Medical day for Branch one week then decrease to daily then every other day based on weight gain/swell ing furosemide 2023-0 Yes [id number] Take one [facility] 40 mg 4-21 tablet by ity of tablet 00:00: mouth [place] 00 twice a Medical day for Branch one week then decrease to daily then every other day based on weight gain/swell ing furosemide 2023-0 Yes [id number] Take one [facility] 40 mg 4-21 tablet by ity of tablet 00:00: mouth [place] 00 twice a Medical day for Branch one week then decrease to daily then every other day based on weight gain/swell ing furosemide 2023-0 Yes [id number] Take one [facility] 40 mg 4-21 tablet by ity of tablet 00:00: mouth [place] 00 twice a Medical day for Branch one week then decrease to daily then every other day based on weight gain/swell ing furosemide 2023-0 Yes [id number] Take one [facility] 40 mg 4-21 tablet by ity of tablet 00:00: mouth [place] 00 twice a Medical day for Branch one week then decrease to daily then every other day based on weight gain/swell ing furosemide 2023-0 Yes [id number] Take one [facility] 40 mg 4-21 tablet by ity of tablet 00:00: mouth [place] 00 twice a Medical day for Branch one week then decrease to daily then every other day based on weight gain/swell ing furosemide 2023-0 Yes [id number] Take one [facility] 40 mg 4-21 tablet by ity of tablet 00:00: mouth [place] 00 twice a Medical day for Branch one week then decrease to daily then every other day based on weight gain/swell ing furosemide 2023-0 Yes [id number] Take one [facility] 40 mg 4-21 tablet by ity of tablet 00:00: mouth [place] 00 twice a Medical day for Branch one week then decrease to daily then every other day based on weight gain/swell ing furosemide 3-0 Yes [id number] Take one [facility] 40 mg 4-21 tablet by ity of tablet 00:00: mouth [place] 00 twice a Medical day for Branch one week then decrease to daily then every other day based on weight gain/swell ing furosemide 2023-0 2023- No [id number] Take one [facility] 40 mg 4-21 05-05 tablet by ity of tablet 00:00: 00:00 mouth [place] 00 :00 twice a Medical day for Branch one week then decrease to daily then every other day based on weight gain/swell ing furosemide 3-0 2023- No [id number] Take one [facility] 40 mg 4-21 05-05 tablet by ity of tablet 00:00: 00:00 mouth [place] 00 :00 twice a Medical day for Branch one week then decrease to daily then every other day based on weight gain/swell ing furosemide 3-0 2023- No [id number] Take one [facility] 40 mg 4-21 05-05 tablet by ity of tablet 00:00: 00:00 mouth [place] 00 :00 twice a Medical day for Branch one week then decrease to daily then every other day based on weight gain/swell ing lactulose 2022-0 Yes [id number] TAKE 15 ML [facility] 10 gram/15 4-10 BY MOUTH ity o f mL solution 00:00: DAILY. [place] 00 Medical Branch lactulose 2022-0 Yes [id number] TAKE 15 ML [facility] 10 gram/15 4-10 BY MOUTH ity o f mL solution 00:00: DAILY. [place] 00 [facility] Branch lactulose 3-0 Yes [id number] TAKE 15 ML [facility] 10 gram/15 4-10 BY MOUTH ity o f mL solution 00:00: DAILY. [place] 00 [facility] Branch lactulose 3-0 Yes [id number] TAKE 15 ML [facility] 10 gram/15 4-10 BY MOUTH ity o f mL solution 00:00: DAILY. [place] 00 [facility] Branch lactulose 2022-0 Yes [id number] TAKE 15 ML [facility] 10 gram/15 4-10 BY MOUTH ity o f mL solution 00:00: DAILY. [place] 00 [facility] Branch lactulose 3-0 Yes [id number] TAKE 15 ML [facility] 10 gram/15 4-10 BY MOUTH ity o f mL solution 00:00: DAILY. [place] 00 [facility] lactulose 2022-0 Yes [id number] TAKE 15 ML [facility] 10 gram/15 4-10 BY MOUTH ity o f mL solution 00:00: DAILY. [place] 00 [facility] lactulose 2022-0 Yes [id number] TAKE 15 ML [facility] 10 gram/15 4-10 BY MOUTH ity o f mL solution 00:00: DAILY. [place] 00 [facility] lactulose 2022-0 Yes [id number] TAKE 15 ML [facility] 10 gram/15 4-10 BY MOUTH ity o f mL solution 00:00[facility] lactulose 2022-0 Yes [id number] TAKE 15 ML [facility] 10 gram/15 4-10 BY MOUTH ity o f mL solution 00:00: [facility] lactulose 2022-0 Yes [id number] TAKE 15 ML [facility] 10 gram/15 4-10 BY MOUTH ity o f mL solution 00:00: [facility] lactulose 2022-0 Yes [id number] TAKE 15 ML [facility] 10 gram/15 4-10 BY MOUTH ity o f mL solution 00:00: [facility] lactulose 2022-0 Yes [id number] TAKE 15 ML [facility] 10 gram/15 4-10 BY MOUTH ity o f mL solution 00:00: [facility] lactulose 2022-0 Yes [id number] TAKE 15 ML [facility] 10 gram/15 4-10 BY MOUTH ity o f mL solution 00:00: [facility] lactulose 2022-0 Yes [id number] TAKE 15 ML [facility] 10 gram/15 4-10 BY MOUTH ity o f mL solution 00:00: DAILY. [place] 00 [facility] lactulose 2022-0 Yes [id number] TAKE 15 ML [facility] 10 gram/15 4-10 BY MOUTH ity o f mL solution 00:00: DAILY. [place] 00 [facility] lactulose 2022-0 Yes [id number] TAKE 15 ML [facility] 10 gram/15 4-10 BY MOUTH ity o f mL solution 00:00: DAILY. [place] 00 [facility] lactulose 2022-0 Yes [id number] TAKE 15 ML [facility] 10 gram/15 4-10 BY MOUTH ity o f mL solution 00:00: DAILY. [place] 00 [facility] lactulose 2022-0 Yes [id number] TAKE 15 ML [facility] 10 gram/15 4-10 BY MOUTH ity o f mL solution 00:00: DAILY. [place] 00 [facility] lactulose 2022-0 Yes [id number] TAKE 15 ML [facility] 10 gram/15 4-10 BY MOUTH ity o f mL solution 00:00: DAILY. [place] 00 [facility] lactulose 2022-0 Yes [id number] TAKE 15 ML [facility] 10 gram/15 4-10 BY MOUTH ity o f mL solution 00:00: DAILY. [place] 00 [facility] lactulose 2022-0 Yes [id number] TAKE 15 ML [facility] 10 gram/15 4-10 BY MOUTH ity o f mL solution 00:00: DAILY. [place] 00 [facility] lactulose 2022-0 Yes [id number] TAKE 15 ML [facility] 10 gram/15 4-10 BY MOUTH ity o f mL solution 00:00: DAILY. [place] 00 [facility] lactulose 2022-0 Yes [id number] TAKE 15 ML [facility] 10 gram/15 4-10 BY MOUTH ity o f mL solution 00:00: DAILY. [place] 00 [facility] lactulose 2022-0 Yes [id number] TAKE 15 ML [facility] 10 gram/15 4-10 BY MOUTH ity o f mL solution 00:00: DAILY. [place] 00 [facility] lactulose 2022-0 Yes [id number] TAKE 15 ML [facility] 10 gram/15 4-10 BY MOUTH ity o f mL solution 00:00: DAILY. [place] 00 [facility] lactulose 2022-0 Yes [id number] TAKE 15 ML [facility] 10 gram/15 4-10 BY MOUTH ity o f mL solution 00:00: DAILY. [place] 00 [facility] lactulose 2022-0 Yes [id number] TAKE 15 ML [facility] 10 gram/15 4-10 BY MOUTH ity o f mL solution 00:00: DAILY. [place] 00 [facility] lactulose 2022-0 Yes [id number] TAKE 15 ML [facility] 10 gram/15 4-10 BY MOUTH ity o f mL solution 00:00: DAILY. [place] 00 [facility] lactulose 2022-0 Yes [id number] TAKE 15 ML [facility] 10 gram/15 4-10 BY MOUTH ity o f mL solution 00:00: DAILY. [place] 00 [facility] lactulose 2022-0 Yes [id number] TAKE 15 ML [facility] 10 gram/15 4-10 BY MOUTH ity o f mL solution 00:00: DAILY. [place] 00 [facility] lactulose 2022-0 Yes [id number] TAKE 15 ML [facility] 10 gram/15 4-10 BY MOUTH ity o f mL solution 00:00: DAILY. [place] 00 [facility] lactulose 2022-0 Yes [id number] TAKE 15 ML [facility] 10 gram/15 4-10 BY MOUTH ity o f mL solution 00:00: DAILY. [place] 00 [facility] lactulose 2022-0 Yes [id number] TAKE 15 ML [facility] 10 gram/15 4-10 BY MOUTH ity o f mL solution 00:00: DAILY. [place] 00 [facility] lactulose 2022-0 2022- No [id number] TAKE 15 ML [facility] 10 gram/15 4-10 05-10 BY MOUTH ity of mL solution 00:00: 00:00 DAILY. [place] : [facility] Branch aspirin 81 0 Yes 325mg Take 325 [facility] mg EC 3-28 mg by ity of tablet 13:27: mouth. [address] Branch aspirin 81 2022-0 Yes 325mg Take 325 [facility] mg EC 3-28 mg by ity of tablet 13:27: mouth. [address] Branch aspirin 81 2022-0 Yes 325mg Take 325 [facility] mg EC 3-28 mg by ity of tablet 13:27: mouth. [address] Branch aspirin 81 2022-0 Yes 325mg Take 325 [facility] mg EC 3-28 mg by ity of tablet 13:27: mouth. [address] Branch aspirin 81 2022-0 Yes 325mg Take 325 [facility] mg EC 3-28 mg by ity of tablet 13:27: mouth. [address] Branch aspirin 81 2022-0 Yes 325mg Take 325 [facility] mg EC 3-28 mg by ity of tablet 13:27: mouth. [address] Branch aspirin 81 2022-0 Yes 325mg Take 325 [facility] mg EC 3-28 mg by ity of tablet 13:27: mouth. [address] aspirin 81 2022-0 Yes 325mg Take 325 [facility] mg EC 3-28 mg by ity of tablet 13:27: mouth. [address] aspirin 81 2022-0 Yes 325mg Take 325 [facility] mg EC 3-28 mg by ity of tablet 13:27: mouth. [place] [address] Medical Branch aspirin 81 2022-0 Yes 325mg Take 325 [facility] mg EC 3-28 mg by ity of tablet 13:27: mouth. [place] [address] Medical Branch aspirin 81 2022-0 Yes 325mg Take 325 [facility] mg EC 3-28 mg by ity of tablet 13:27: mouth. [place] [address] Medical Branch aspirin 81 2022-0 Yes 325mg Take 325 [facility] mg EC 3-28 mg by ity of tablet 13:27: mouth. [place] [address] Medical Branch aspirin 81 2022-0 Yes 325mg Take 325 [facility] mg EC 3-28 mg by ity of tablet 13:27: mouth. [place] [address] Medical Branch aspirin 81 2022-0 Yes 325mg Take 325 [facility] mg EC 3-28 mg by ity of tablet 13:27: mouth. [place] [address] Medical Branch aspirin 81 2022-0 Yes 325mg Take 325 [facility] mg EC 3-28 mg by ity of tablet 13:27: mouth. [place] [address] Medical Branch aspirin 81 2022-0 Yes 325mg Take 325 [facility] mg EC 3-28 mg by ity of tablet 13:27: mouth. [place] [address] Medical Branch aspirin 81 2022-0 Yes 325mg Take 325 [facility] mg EC 3-28 mg by ity of tablet 13:27: mouth. [place] [address] Medical Branch aspirin 81 2022-0 Yes 325mg Take 325 [facility] mg EC 3-28 mg by ity of tablet 13:27: mouth. [place] [address] Medical Branch aspirin 81 2022-0 Yes 325mg Take 325 [facility] mg EC 3-28 mg by ity of tablet 13:27: mouth. [place] [address] Medical Branch aspirin 81 2022-0 Yes 325mg Take 325 [facility] mg EC 3-28 mg by ity of tablet 13:27: mouth. [place] [address] Medical Branch aspirin 81 2022-0 Yes 325mg Take 325 [facility] mg EC 3-28 mg by ity of tablet 13:27: mouth. [place] [address] [facility] aspirin 81 2022-0 Yes 325mg Take 325 [facility] mg EC 3-28 mg by ity of tablet 13:27: mouth. [place] [address] [facility] aspirin 81 2022-0 Yes 325mg Take 325 [facility] mg EC 3-28 mg by ity of tablet 13:27: mouth. [place] [address] [facility] aspirin 81 2022-0 Yes 325mg Take 325 [facility] mg EC 3-28 mg by ity of tablet 13:27: mouth. [place] [address] [facility] aspirin 81 2022-0 Yes 325mg Take 325 [facility] mg EC 3-28 mg by ity of tablet 13:27: mouth. [place] [address] [facility] aspirin 81 2022-0 Yes 325mg Take 325 [facility] mg EC 3-28 mg by ity of tablet 13:27: mouth. [place] [address] [facility] aspirin 81 2022-0 Yes 325mg Take 325 [facility] mg EC 3-28 mg by ity of tablet 13:27: mouth. [place] [address] [facility] aspirin 81 2022-0 Yes 325mg Take 325 [facility] mg EC 3-28 mg by ity of tablet 13:27: mouth. [place] [address] [facility] aspirin 81 2022-0 Yes 325mg Take 325 [facility] mg EC 3-28 mg by ity of tablet 13:27: mouth. [place] [address] [facility] aspirin 81 2022-0 Yes 325mg Take 325 [facility] mg EC 3-28 mg by ity of tablet 13:27: mouth. [place] [address] [facility] aspirin 81 2022-0 Yes 325mg Take 325 [facility] mg EC 3-28 mg by ity of tablet 13:27: mouth. [place] [address] [facility] aspirin 81 2022-0 Yes 325mg Take 325 [facility] mg EC 3-28 mg by ity of tablet 13:27: mouth. [place] [address] [facility] aspirin 81 2022-0 Yes 325mg Take 325 [facility] mg EC 3-28 mg by ity of tablet 13:27: mouth. [place] [address] [facility] aspirin 81 2022-0 Yes 325mg Take 325 [facility] mg EC 3-28 mg by ity of tablet 13:27: mouth. [place] [address] [facility] aspirin 81 3-0 Yes 325mg Take 325 [facility] mg EC 3-28 mg by ity of tablet 13:27: mouth. [place] [address] [facility] aspirin 81 3-0 Yes 325mg Take 325 [facility] mg EC 3-28 mg by ity of tablet 13:27: mouth. [place] [address] [facility] aspirin 81 3-0 Yes 325mg Take 325 [facility] mg EC 3-28 mg by ity of tablet 13:27: mouth. [place] [address] [facility] aspirin 81 2023-0 Yes 325mg Take 325 [facility] mg EC 3-28 mg by ity of tablet 13:27: mouth. [place] [address] [facility] aspirin 81 2022-0 Yes 325mg Take 325 [facility] mg EC 3-28 mg by ity of tablet 13:27: mouth. [place] [address] [facility] aspirin 81 2022-0 Yes 325mg Take 325 [facility] mg EC 3-28 mg by ity of tablet 13:27: mouth. [place] [address] [facility] aspirin 81 2022-0 Yes 325mg Take 325 [facility] mg EC 3-28 mg by ity of tablet 13:27: mouth. [place] [address] [facility] aspirin 81 2022-0 Yes 325mg Take 325 [facility] mg EC 3-28 mg by ity of tablet 13:27: mouth. [place] [address] [facility] aspirin 81 2022-0 Yes 325mg Take 325 [facility] mg EC 3-28 mg by ity of tablet 13:27: mouth. [place] [address] [facility] aspirin 81 2022-0 Yes 325mg Take 325 [facility] mg EC 3-28 mg by ity of tablet 13:27: mouth. [place] [address] [facility] aspirin 81 2022-0 Yes 325mg Take 325 [facility] mg EC 3-28 mg by ity of tablet 13:27: mouth. [place] [address] [facility] aspirin 81 2022-0 Yes 325mg Take 325 [facility] mg EC 3-28 mg by ity of tablet 13:27: mouth. [address] Branch aspirin 81 2022-0 Yes 325mg Take 325 Un [facility] mg EC 3-28 mg by ity of tablet 13:27: mouth. [place] [address] [facility] aspirin 81 2022-0 Yes 325mg Take 325 [facility] mg EC 3-28 mg by ity of tablet 13:27: mouth. [place] [address] [facility] aspirin 81 2022-0 Yes 325mg Take 325 [facility] mg EC 3-28 mg by ity of tablet 13:27: mouth. [place] [address] [facility] aspirin 81 3-0 Yes 325mg Take 325 [facility] mg EC 3-28 mg by ity of tablet 13:27: mouth. [place] [address] [facility] aspirin 81 2022-0 Yes 325mg Take 325 [facility] mg EC 3-28 mg by ity of tablet 13:27: mouth. [place] [address] [facility] aspirin 81 2023-0 Yes 325mg Take 325 [facility] mg EC 3-28 mg by ity of tablet 13:27: mouth. [place] [address] [facility] aspirin 81 2022-0 Yes 325mg Take 325 [facility] mg EC 3-28 mg by ity of tablet 13:27: mouth. [place] [address] [facility] aspirin 81 2022-0 Yes 325mg Take 325 [facility] mg EC 3-28 mg by ity of tablet 13:27: mouth. [place] [address] [facility] aspirin 81 2022-0 Yes 325mg Take 325 [facility] mg EC 3-28 mg by ity of tablet 13:27: mouth. [place] [address] [facility] aspirin 81 2022-0 Yes 325mg Take 325 [facility] mg EC 3-28 mg by ity of tablet 13:27: mouth. [place] [address] [facility] aspirin 81 2022-0 Yes 325mg Take 325 [facility] mg EC 3-28 mg by ity of tablet 13:27: mouth. [place] [address] [facility] aspirin 81 2022-0 Yes 325mg Take 325 [facility] mg EC 3-28 mg by ity of tablet 13:27: mouth. [place] [address] [facility] aspirin 81 2022-0 Yes 325mg Take 325 [facility] mg EC 3-28 mg by ity of tablet 13:27: mouth. [place] [address] [facility] aspirin 81 2022-0 Yes 325mg Take 325 [facility] mg EC 3-28 mg by ity of tablet 13:27: mouth. [address] Branch aspirin 81 2022-0 Yes 325mg Take 325 [facility] mg EC 3-28 mg by ity of tablet 13:27: mouth. [place] [address] [facility] aspirin 81 2022-0 Yes 325mg Take 325 [facility] mg EC 3-28 mg by ity of tablet 13:27: mouth. [place] [address] [facility] aspirin 81 2022-0 Yes 325mg Take 325 [facility] mg EC 3-28 mg by ity of tablet 13:27: mouth. [place] [address] [facility] aspirin 81 2022-0 Yes 325mg Take 325 [facility] mg EC 3-28 mg by ity of tablet 13:27: mouth. [place] [address] [facility] aspirin 81 2022-0 Yes 325mg Take 325 [facility] mg EC 3-28 mg by ity of tablet 13:27: mouth. [address] Branch aspirin 81 2022-0 Yes 325mg Take 325 [facility] mg EC 3-28 mg by ity of tablet 13:27: mouth. [place] [address] [facility] aspirin 81 2022-0 Yes 325mg Take 325 [facility] mg EC 3-28 mg by ity of tablet 13:27: mouth. [place] [address] [facility] aspirin 81 2022-0 Yes 325mg Take 325 [facility] mg EC 3-28 mg by ity of tablet 13:27: mouth. [place] [address] [facility] aspirin 81 2022-0 Yes 325mg Take 325 [facility] mg EC 3-28 mg by ity of tablet 13:27: mouth. [place] [address] [facility] aspirin 81 2022-0 Yes 325mg Take 325 [facility] mg EC 3-28 mg by ity of tablet 13:27: mouth. [place] [address] [facility] aspirin 81 2022-0 Yes 325mg Take 325 [facility] mg EC 3-28 mg by ity of tablet 13:27: mouth. [place] [address] [facility] aspirin 81 2022-0 Yes 325mg Take 325 [facility] mg EC 3-28 mg by ity of tablet 13:27: mouth. [place] [address] [facility] aspirin 81 2022-0 Yes 325mg Take 325 [facility] mg EC 3-28 mg by ity of tablet 13:27: mouth. [place] [address] [facility] aspirin 81 2022-0 Yes 325mg Take 325 [facility] mg EC 3-28 mg by ity of tablet 13:27: mouth. [place] [address] [facility] aspirin 81 2022-0 Yes 325mg Take 325 [facility] mg EC 3-28 mg by ity of tablet 13:27: mouth. [place] [address] [facility] aspirin 81 2022-0 Yes 325mg Take 325 [facility] mg EC 3-28 mg by ity of tablet 13:27: mouth. [place] [address] [facility] aspirin 81 2022-0 Yes 325mg Take 325 [facility] mg EC 3-28 mg by ity of tablet 13:27: mouth. [place] [address] [facility] aspirin 81 2022-0 Yes 325mg Take 325 [facility] mg EC 3-28 mg by ity of tablet 13:27: mouth. [place] [address] [facility] aspirin 81 2022-0 Yes 325mg Take 325 [facility] mg EC 3-28 mg by ity of tablet 13:27: mouth. [place] [address] [facility] aspirin 81 2022-0 Yes 325mg Take 325 [facility] mg EC 3-28 mg by ity of tablet 13:27: mouth. [address] aspirin 81 2022-0 Yes 325mg Take 325 [facility] mg EC 3-28 mg by ity of tablet 13:27: mouth. [address] aspirin 81 2022-0 Yes 325mg Take 325 [facility] mg EC 3-28 mg by ity of tablet 13:27: mouth. [address] aspirin 81 2022-0 Yes 325mg Take 325 [facility] mg EC 3-28 mg by ity of tablet 13:27: mouth. [address] aspirin 81 2022-0 Yes 325mg Take 325 [facility] mg EC 3-28 mg by ity of tablet 13:27: mouth. [address] aspirin 81 2022-0 Yes 325mg Take 325 [facility] mg EC 3-28 mg by ity of tablet 13:27: mouth. [address] aspirin 81 2022-0 Yes 325mg Take 325 [facility] mg EC 3-28 mg by ity of tablet 13:27: mouth. [address] ezetimibe 2022-0 Yes [id number] 10mg Take 1 [facility] (ZETIA) 10 3-28 tablet by [facility] of mg tablet 00:00: mouth [place] the Medical morning. Branch ezetimibe 3-0 Yes [id number] 10mg Take 1 [facility] (ZETIA) 10 3-28 tablet by [facility] of mg tablet 00:00: mouth [place] the Medical morning. Branch ezetimibe 3-0 Yes [id number] 10mg Take 1 [facility] (ZETIA) 10 3-28 tablet by [facility] of mg tablet 00:00: mouth [place] the Medical morning. Branch ezetimibe 3-0 Yes [id number] 10mg Take 1 [facility] (ZETIA) 10 3-28 tablet by [facility] of mg tablet 00:00: mouth [place] the Medical morning. Branch ezetimibe 2023-0 Yes [id number] 10mg Take 1 [facility] (ZETIA) 10 3-28 tablet by [facility] of mg tablet 00:00: mouth [place] the Medical morning. Branch ezetimibe 3-0 Yes [id number] 10mg Take 1 [facility] (ZETIA) 10 3-28 tablet by [facility] of mg tablet 00:00: mouth [place] the Medical morning. Branch ezetimibe 2023-0 Yes [id number] 10mg Take 1 [facility] (ZETIA) 10 3-28 tablet by [facility] of mg tablet 00:00: mouth [place] the Medical morning. Branch ezetimibe 2023-0 Yes [id number] 10mg Take 1 [facility] (ZETIA) 10 3-28 tablet by [facility] of mg tablet 00:00: mouth [place] the Medical morning. Branch ezetimibe 2023-0 Yes [id number] 10mg Take 1 [facility] (ZETIA) 10 3-28 tablet by [facility] of mg tablet 00:00: mouth [place] the Medical morning. Branch ezetimibe 2023-0 Yes [id number] 10mg Take 1 [facility] (ZETIA) 10 3-28 tablet by [facility] of mg tablet 00:00: mouth [place] the Medical morning. Branch ezetimibe 2023-0 Yes [id number] 10mg Take 1 [facility] (ZETIA) 10 3-28 tablet by [facility] of mg tablet 00:00: mouth [place] the Medical morning. Branch ezetimibe 2023-0 Yes [id number] 10mg Take 1 [facility] (ZETIA) 10 3-28 tablet by [facility] of mg tablet 00:00: mouth [place] the Medical morning. Branch ezetimibe 2023-0 Yes [id number] 10mg Take 1 [facility] (ZETIA) 10 3-28 tablet by [facility] of mg tablet 00:00: mouth [place] the Medical morning. Branch ezetimibe 2023-0 Yes [id number] 10mg Take 1 [facility] (ZETIA) 10 3-28 tablet by [facility] of mg tablet 00:00: mouth [place] 00 the Medical morning. Branch ezetimibe 2023-0 Yes [id number] 10mg Take 1 [facility] (ZETIA) 10 3-28 tablet by [facility] of mg tablet 00:00: mouth [place] 00 the Medical morning. Branch ezetimibe 2023-0 Yes [id number] 10mg Take 1 [facility] (ZETIA) 10 3-28 tablet by [facility] of mg tablet 00:00: mouth [place] 00 the Medical morning. Branch ezetimibe 2023-0 Yes [id number] 10mg Take 1 [facility] (ZETIA) 10 3-28 tablet by [facility] of mg tablet 00:00: mouth in [place] 00 the Medical morning. Branch ezetimibe 2023-0 Yes [id number] 10mg Take 1 [facility] (ZETIA) 10 3-28 tablet by [facility] of mg tablet 00:00: mouth in [place] 00 the Medical morning. Branch ezetimibe 2023-0 Yes [id number] 10mg Take 1 [facility] (ZETIA) 10 3-28 tablet by [facility] of mg tablet 00:00: mouth in [place] 00 the Medical morning. Branch ezetimibe 2023-0 Yes [id number] 10mg Take 1 [facility] (ZETIA) 10 3-28 tablet by [facility] of mg tablet 00:00: mouth in [place] 00 the Medical morning. Branch ezetimibe 2023-0 Yes [id number] 10mg Take 1 [facility] (ZETIA) 10 3-28 tablet by [facility] of mg tablet 00:00: mouth in [place] 00 the Medical morning. Branch ezetimibe 3-0 Yes [id number] 10mg Take 1 [facility] (ZETIA) 10 3-28 tablet by [facility] of mg tablet 00:00: mouth [place] 00 the Medical morning. Branch ezetimibe 2023-0 Yes [id number] 10mg Take 1 [facility] (ZETIA) 10 3-28 tablet by [facility] of mg tablet 00:00: mouth [place] 00 the Medical morning. Branch ezetimibe 2023-0 Yes [id number] 10mg Take 1 [facility] (ZETIA) 10 3-28 tablet by [facility] of mg tablet 00:00: mouth [place] 00 the Medical morning. Branch ezetimibe 2023-0 Yes [id number] 10mg Take 1 [facility] (ZETIA) 10 3-28 tablet by [facility] of mg tablet 00:00: mouth [place] the Medical morning. Branch ezetimibe 2023-0 Yes [id number] 10mg Take 1 [facility] (ZETIA) 10 3-28 tablet by [facility] of mg tablet 00:00: mouth [place] 00 the Medical morning. Branch ezetimibe 2023-0 Yes [id number] 10mg Take 1 [facility] (ZETIA) 10 3-28 tablet by [facility] of mg tablet 00:00: mouth [place] 00 the Medical morning. Branch ezetimibe 2023-0 Yes [id number] 10mg Take 1 [facility] (ZETIA) 10 3-28 tablet by [facility] of mg tablet 00:00: mouth [place] the Medical morning. Branch ezetimibe 2023-0 Yes [id number] 10mg Take 1 [facility] (ZETIA) 10 3-28 tablet by [facility] of mg tablet 00:00: mouth [place] 00 the Medical morning. Branch ezetimibe 2023-0 Yes [id number] 10mg Take 1 [facility] (ZETIA) 10 3-28 tablet by [facility] of mg tablet 00:00: mouth [place] 00 the Medical morning. Branch ezetimibe 2023-0 Yes [id number] 10mg Take 1 [facility] (ZETIA) 10 3-28 tablet by [facility] of mg tablet 00:00: mouth [place] 00 the Medical morning. Branch ezetimibe 3-0 Yes [id number] 10mg Take 1 [facility] (ZETIA) 10 3-28 tablet by [facility] of mg tablet 00:00: mouth [place] 00 the Medical morning. Branch ezetimibe 3-0 Yes [id number] 10mg Take 1 [facility] (ZETIA) 10 3-28 tablet by [facility] of mg tablet 00:00: mouth [place] 00 the Medical morning. Branch ezetimibe 2023-0 Yes [id number] 10mg Take 1 [facility] (ZETIA) 10 3-28 tablet by [facility] of mg tablet 00:00: mouth [place] 00 the Medical morning. Branch ezetimibe 2023-0 Yes [id number] 10mg Take 1 [facility] (ZETIA) 10 3-28 tablet by [facility] of mg tablet 00:00: mouth [place] 00 the Medical morning. Branch ezetimibe 2023-0 Yes [id number] 10mg Take 1 [facility] (ZETIA) 10 3-28 tablet by [facility] of mg tablet 00:00: mouth [place] 00 the Medical morning. Branch ezetimibe 2023-0 Yes [id number] 10mg Take 1 [facility] (ZETIA) 10 3-28 tablet by [facility] of mg tablet 00:00: mouth [place] 00 the Medical morning. Branch ezetimibe Yes [id number] 10mg Take 1 [facility] (ZETIA) 10 3-28 tablet by [facility] of mg tablet 00:00: mouth [place] 00 the Medical morning. Branch ezetimibe 2022- No [id number] 10mg Take 1 U nivers (ZETIA) 10 3-28 05-07 tablet by ity of mg tablet 00:00: 00:00 mouth in [place] :00 the Medical morning. Branch rivastigmin 2022- No [id number] 1{patch Apply 1 [facility] 4.6 mg/24 3-28 04-28 } Patch to ity of hour patch 00:00: 04:59 skin in [place] :00 the Medical morning Branch for 30 days. rivastigmin 2022- No [id number] 1{patch Apply 1 [facility] 4.6 mg/24 3-28 04-28 } Patch to ity of hour patch 00:00: 04:59 skin in [place] :00 the Medical morning Branch for 30 days. rivastigmin 2022- No [id number] 1{patch Apply 1 [facility] 4.6 mg/24 3-28 04-28 } Patch to ity of hour patch 00:00: 04:59 skin in [place] :00 the Medical morning Branch for 30 days. rivastigmin 2022- No [id number] 1{patch Apply 1 [facility] 4.6 mg/24 3-28 04-28 } Patch to ity of hour patch 00:00: 04:59 skin in [place] :00 the Medical morning Branch for 30 days. rivastigmin 2022- No [id number] 1{patch Apply 1 [facility] 4.6 mg/24 3-28 04-28 } Patch to ity of hour patch 00:00: 04:59 skin in [place] 00 :00 the Medical morning Branch for 30 days. rivastigmin 2022- No [id number] 1{patch Apply 1 [facility] 4.6 mg/24 3-28 04-28 } Patch to ity of hour patch 00:00: 04:59 skin in [place] 00 :00 the Medical morning Branch for 30 days. rivastigmin 2022- No [id number] 1{patch Apply 1 [facility] 4.6 mg/24 3-28 04-28 } Patch to ity of hour patch 00:00: 04:59 skin in [place] :00 the Medical morning Branch for 30 days. rivastigmin No [id number] 1{patch Apply 1 [facility] 4.6 mg/24 3-28 04-28 } Patch to ity of hour patch 00:00: 04:59 skin in [place] :00 the Medical morning Branch for 30 days. rivastigmin 2022- No [id number] 1{patch Apply 1 [facility] 4.6 mg/24 3-28 04-28 } Patch to ity of hour patch 00:00: 04:59 skin in [place] 00 :00 the Medical morning Branch for 30 days. rivastigmin 2022- No [id number] 1{patch Apply 1 [facility] e 4.6 mg/24 3-28 04-28 } Patch to ity of hour patch 00:00: 04:59 skin in [place] :00 the Medical morning Branch for 30 days. rivastigmin 2022- No [id number] 1{patch Apply 1 [facility] 4.6 mg/24 3-28 04-28 } Patch to ity of hour patch 00:00: 04:59 skin in [place] :00 the Medical morning Branch for 30 days. rivastigmin 2022- No [id number] 1{patch Apply 1 [facility] 4.6 mg/24 3-28 04-28 } Patch to ity of hour patch 00:00: 04:59 skin in [place] 00 :00 the Medical morning Branch for 30 days. rivastigmin 2022- No [id number] 1{patch Apply 1 [facility] e 4.6 mg/24 3-28 04-28 } Patch to ity of hour patch 00:00: 04:59 skin in [place] :00 the Medical morning Branch for 30 days. rivastigmin No [id number] 1{patch Apply 1 [facility] e 4.6 mg/24 3-28 04-28 } Patch to ity of hour patch 00:00: 04:59 skin in [place] :00 the Medical morning Branch for 30 days. rivastigmin No [id number] 1{patch Apply 1 [facility] e 4.6 mg/24 3-28 04-28 } Patch to ity of hour patch 00:00: 04:59 skin in [place] 00 :00 the Medical morning Branch for 30 days. rivastigmin No [id number] 1{patch Apply 1 [facility] e 4.6 mg/24 3-28 04-28 } Patch to ity of hour patch 00:00: 04:59 skin in [place] :00 the Medical morning Branch for 30 days. rivastigmin No [id number] 1{patch Apply 1 [facility] e 4.6 mg/24 3-28 04-28 } Patch to ity of hour patch 00:00: 04:59 skin in [place] 00 :00 the [facility] morning Branch for 30 days. rivastigmin No [id number] 1{patch Apply 1 [facility] e 4.6 mg/24 3-28 04-28 } Patch to ity of hour patch 00:00: 04:59 skin in [place] 00 :00 the [facility] morning Branch for 30 days. rivastigmin No [id number] 1{patch Apply 1 [facility] e 4.6 mg/24 3-28 04-28 } Patch to ity of hour patch 00:00: 04:59 skin in [place] 00 :00 the [facility] morning Branch for 30 days. rivastigmin No [id number] 1{patch Apply 1 [facility] e 4.6 mg/24 3-28 04-28 } Patch to ity of hour patch 00:00: 04:59 skin in [place] 00 :00 the Medical morning Branch for 30 days. rivastigmin No [id number] 1{patch Apply 1 [facility] e 4.6 mg/24 3-28 04-28 } Patch to ity of hour patch 00:00: 04:59 skin in [place] 00 :00 the Medical morning Branch for 30 days. rivastigmin No [id number] 1{patch Apply 1 [facility] e 4.6 mg/24 3-28 04-28 } Patch to ity of hour patch 00:00: 04:59 skin in [place] 00 :00 the [facility] morning Branch for 30 days. rivastigmin 2022- No [id number] 1{patch Apply 1 [facility] e 4.6 mg/24 3-28 04-28 } Patch to ity of hour patch 00:00: 04:59 skin in [place] 00 :00 the [facility] morning Branch for 30 days. rivastigmin 2022- No [id number] 1{patch Apply 1 [facility] e 4.6 mg/24 3-28 04-28 } Patch to ity of hour patch 00:00: 04:59 skin in [place] 00 :00 the [facility] morning Branch for 30 days. rivastigmin 2022- No [id number] 1{patch Apply 1 [facility] e 4.6 mg/24 3-28 04-28 } Patch to ity of hour patch 00:00: 04:59 skin in [place] 00 :00 the [facility] morning Branch for 30 days. rivastigmin 2022- No [id number] 1{patch Apply 1 [facility] e 4.6 mg/24 3-28 04-28 } Patch to ity of hour patch 00:00: 04:59 skin in [place] 00 :00 the [facility] morning Branch for 30 days. rivastigmin 2022- No [id number] 1{patch Apply 1 [facility] e 4.6 mg/24 3-28 04-28 } Patch to ity of hour patch 00:00: 04:59 skin in [place] 00 :00 the [facility] morning Branch for 30 days. rivastigmin 2022- No [id number] 1{patch Apply 1 [facility] e 4.6 mg/24 3-28 04-28 } Patch to ity of hour patch 00:00: 04:59 skin in [place] 00 :00 the [facility] morning Branch for 30 days. rivastigmin 2022- No [id number] 1{patch Apply 1 [facility] e 4.6 mg/24 3-28 04-28 } Patch to ity of hour patch 00:00: 04:59 skin in [place] 00 :00 the [facility] morning Branch for 30 days. Cholecalcif 2023-0 Yes 125ug Take 125 [facility] [place], 3-20 mcg by ity of Vitamin D3, 14:47: mouth. [place] 125 mcg 49 Medical (5,000 Branch unit) tablet multivitami 0 Yes 1{tbl} Take 1 Un [facility] n tablet 3-20 tablet by ity of 14:47: mouth in [place] [address] the Medical morning. Branch Cholecalcif 0 Yes 125ug Take 125 [facility] [place], 3-20 mcg by ity of Vitamin D3, 14:47: mouth. [place] 125 mcg 49 Medical (5,000 Branch unit) tablet multivitami 2022-0 Yes 1{tbl} Take 1 [facility] n tablet 3-20 tablet by ity of 14:47: mouth in [place] [address] the Medical morning. Branch Cholecalcif 0 Yes 125ug Take 125 [facility] [place], 3-20 mcg by ity of Vitamin D3, 14:47: mouth. [place] 125 mcg 49 Medical (5,000 Branch unit) tablet multivitami 0 Yes 1{tbl} Take 1 [facility] n tablet 3-20 tablet by ity of 14:47: mouth in [place] [address] the Medical morning. Branch Cholecalcif 0 Yes 125ug Take 125 [facility] [place], 3-20 mcg by ity of Vitamin D3, 14:47: mouth. [place] 125 mcg 49 Medical (5,000 Branch unit) tablet multivitami 0 Yes 1{tbl} Take 1 [facility] n tablet 3-20 tablet by ity of 14:47: mouth in [place] [address] the Medical morning. Branch Cholecalcif 0 Yes 125ug Take 125 [facility] [place], 3-20 mcg by ity of Vitamin D3, 14:47: mouth. [place] 125 mcg 49 Medical (5,000 Branch unit) tablet multivitami 2022-0 Yes 1{tbl} Take 1 [facility] n tablet 3-20 tablet by ity of 14:47: mouth in [place] [address] the Medical morning. Branch Cholecalcif 2022-0 Yes 125ug Take 125 [facility] [place], 3-20 mcg by ity of Vitamin D3, 14:47: mouth. [place] 125 mcg 49 Medical (5,000 Branch unit) tablet multivitami 2022-0 Yes 1{tbl} Take 1 [facility] n tablet 3-20 tablet by ity of 14:47: mouth in [place] [address] the Medical morning. Branch Cholecalcif 2022-0 Yes 125ug Take 125 [facility]ivers [place], 3-20 mcg by ity of Vitamin D3, 14:47: mouth. [place] 125 mcg 49 Medical (5,000 Branch unit) tablet multivitami 2022-0 Yes 1{tbl} Take 1 [facility] n tablet 3-20 tablet by ity of 14:47: mouth in [place] [address] the Medical morning. Branch Cholecalcif 2022-0 Yes 125ug Take 125 [facility] [place], 3-20 mcg by ity of Vitamin D3, 14:47: mouth. [place] 125 mcg 49 Medical (5,000 Branch unit) tablet multivitami 2022-0 Yes 1{tbl} Take 1 [facility] n tablet 3-20 tablet by ity of 14:47: mouth in [place] [address] the Medical morning. Branch Cholecalcif 2022-0 Yes 125ug Take 125 [facility] [place], 3-20 mcg by ity of Vitamin D3, 14:47: mouth. [place] 125 mcg 49 Medical (5,000 Branch unit) tablet multivitami 2022-0 Yes 1{tbl} Take 1 [facility] n tablet 3-20 tablet by ity of 14:47: mouth in [place] [address] the Medical morning. Branch Cholecalcif 2022-0 Yes 125ug Take 125 [facility] [place], 3-20 mcg by ity of Vitamin D3, 14:47: mouth. [place] 125 mcg 49 Medical (5,000 Branch unit) tablet multivitami 2022-0 Yes 1{tbl} Take 1 [facility] n tablet 3-20 tablet by ity of 14:47: mouth in [place] [address] the Medical morning. Branch Cholecalcif 2022-0 Yes 125ug Take 125 U [facility] [place], 3-20 mcg by ity of Vitamin D3, 14:47: mouth. [place] 125 mcg 49 Medical (5,000 Branch unit) tablet multivitami 2022-0 Yes 1{tbl} Take 1 [facility] n tablet 3-20 tablet by ity of 14:47: mouth in [place] [address] the Medical morning. Branch Cholecalcif 2022-0 Yes 125ug Take 125 U nivers [place], 3-20 mcg by ity of Vitamin D3, 14:47: mouth. [place] 125 mcg 49 Medical (5,000 Branch unit) tablet multivitami 2022-0 Yes 1{tbl} Take 1 [facility] n tablet 3-20 tablet by ity of 14:47: mouth in [place] [address] the Medical morning. Branch Cholecalcif 2022-0 Yes 125ug Take 125 U nivers [place], 3-20 mcg by ity of Vitamin D3, 14:47: mouth. [place] 125 mcg 49 Medical (5,000 Branch unit) tablet multivitami 2022-0 Yes 1{tbl} Take 1 [facility] n tablet 3-20 tablet by ity of 14:47: mouth in [place] [address] the Medical morning. Branch Cholecalcif 2022-0 Yes 125ug Take 125 U nivers [place], 3-20 mcg by ity of Vitamin D3, 14:47: mouth. [place] 125 mcg 49 Medical (5,000 Branch unit) tablet multivitami 2022-0 Yes 1{tbl} Take 1 [facility] n tablet 3-20 tablet by ity of 14:47: mouth in [place] [address] the Medical morning. Branch Cholecalcif 0 Yes 125ug Take 125 U nivers [place], 3-20 mcg by ity of Vitamin D3, 14:47: mouth. [place] 125 mcg 49 Medical (5,000 Branch unit) tablet multivitami 2022-0 Yes 1{tbl} Take 1 Un [facility] n tablet 3-20 tablet by ity of 14:47: mouth in [place] [address] the Medical morning. Branch Cholecalcif 2022-0 Yes 125ug Take 125 U nivers [place], 3-20 mcg by ity of Vitamin D3, 14:47: mouth. [place] 125 mcg 49 Medical (5,000 Branch unit) tablet multivitami 2022-0 Yes 1{tbl} Take 1 Un [facility] n tablet 3-20 tablet by ity of 14:47: mouth in [place] [address] the Medical morning. Branch Cholecalcif 2022-0 Yes 125ug Take 125 U nivers [place], 3-20 mcg by ity of Vitamin D3, 14:47: mouth. [place] 125 mcg 49 Medical (5,000 Branch unit) tablet multivitami 202-0 Yes 1{tbl} Take 1 [facility] n tablet 3-20 tablet by ity of 14:47: mouth in [place] [address] the Medical morning. Branch Cholecalcif 2022-0 Yes 125ug Take 125 U n[facility] [place], 3-20 mcg by [facility] of Vitamin D3, 14:47[place] 125 [place] 49 [facility] (5,000 Branch unit) tablet multivitami 2022-0 Yes 1{tbl} Take 1 Un bhumi n tablet 3-20 tablet by ity of 14:47: mouth in [place] [address] the Medical morning. Branch Cholecalcif 2022-0 Yes 125ug Take 125 [facility] [place], 3-20 mcg by [facility] Vitamin D3, 14:47: [place] 49 [facility] (5,000 Branch unit) tablet multivitami 2022-0 Yes 1{tbl} Take 1 Un bhumi n tablet 3-20 tablet by ity of 14:47: mouth in [place] [address] the Medical morning. Branch Cholecalcif 2022-0 Yes 125ug Take 125 [facility] [place], 3-20 mcg by [facility] Vitamin D3, 14:47: [place] 49 [facility] (5,000 Branch unit) tablet multivitami 2022-0 Yes 1{tbl} Take 1 Un [facility] n tablet 3-20 tablet by ity of 14:47: mouth in [place] [address] the Medical morning. Branch Cholecalcif 2022-0 Yes 125ug Take 125 [facility] [place], 3-20 mcg by [facility] of Vitamin D3, 14:47: [place] 49 [facility] (5,000 Branch unit) tablet multivitami 2022-0 Yes 1{tbl} Take 1 Un b[facility]i n tablet 3-20 tablet by ity of 14:47: mouth in [place] [address] the Medical morning. Branch Cholecalcif 2022-0 Yes 125ug Take 125 [facility] [place], 3-20 mcg by [facility] of Vitamin D3, 14:47: [place] 125 [place] 49 [facility] (5,000 Branch unit) tablet multivitami 2022-0 Yes 1{tbl} Take 1 Un [facility]i n tablet 3-20 tablet by ity of 14:47: mouth in [place] [address] the Medical morning. Branch Cholecalcif 202-0 Yes 125ug Take 125 U n[facility] [place], 3-20 mcg by [facility] of Vitamin D3, 14:47: [place] 125 [place]cg 49 [facility] (5,000 Branch unit) tablet multivitami 2022-0 Yes 1{tbl} Take 1 Un b[facility]i n tablet 3-20 tablet by ity of 14:47: mouth in [place] [address] the Medical morning. Branch Cholecalcif 2022-0 Yes 125ug Take 125 U [facility] [place], 3-20 mcg by [facility] of Vitamin D3, 14:47: [place] 125 [place]cg 49 [facility] (5,000 Branch unit) tablet multivitami 2022-0 Yes 1{tbl} Take 1 Un bhumi n tablet 3-20 tablet by ity of 14:47: mouth in [place] [address] the Medical morning. Branch Cholecalcif 2022-0 Yes 125ug Take 125 [facility] n[facility] [place], 3-20 mcg by [facility] of Vitamin D3, 14:47: [place] 125 [place]cg 49 [facility] (5,000 Branch unit) tablet multivitami 2022-0 Yes 1{tbl} Take 1 Un b[facility]i n tablet 3-20 tablet by ity of 14:47: mouth in [place] [address] the Medical morning. Branch Cholecalcif 2022-0 Yes 125ug Take 125 [facility] [place], 3-20 mcg by [facility] of Vitamin D3, 14:47: [place] 125 [place] 49 [facility] (5,000 Branch unit) tablet multivitami 2022-0 Yes 1{tbl} Take 1 Un b[facility]i n tablet 3-20 tablet by ity of 14:47: mouth in [place] [address] the Medical morning. Branch Cholecalcif 2022-0 Yes 125ug Take 125 [facility] n[facility] [place], 3-20 mcg by [facility] of Vitamin D3, 14:47: [place] 125 [place]cg 49 [facility] (5,000 Branch unit) tablet multivitami 2022-0 Yes 1{tbl} Take 1 Un b[facility]i n tablet 3-20 tablet by ity of 14:47: mouth in [place] [address] the Medical morning. Branch Cholecalcif 2022-0 Yes 125ug Take 125 [facility] n[facility] [place]ight, 3-20 mcg by [facility] of Vitamin D3, 14:47: [place] 125 [place]cg 49 [facility] (5,000 Branch unit) tablet multivitami 2023-0 Yes 1{tbl} Take 1 Un bhumi n tablet 3-20 tablet by ity of 14:47: mouth in [place] [address] the Medical morning. Branch Cholecalcif 2022-0 Yes 125ug Take 125 [facility] [place], 3-20 mcg by [facility] of Vitamin D3, 14:47: [place] 125 [place] 49 [facility] (5,000 Branch unit) tablet multivitami 2022-0 Yes 1{tbl} Take 1 Un b[facility]i n tablet 3-20 tablet by ity of 14:47: mouth in [place] [address] the Medical morning. Branch Cholecalcif 2022-0 Yes 125ug Take 125 U nivers [place], 3-20 mcg by [facility] of Vitamin D3, 14:47: [place] 125 [place]cg 49 [facility] (5,000 Branch unit) tablet multivitami 2022-0 Yes 1{tbl} Take 1 Un bhumi n tablet 3-20 tablet by ity of 14:47: mouth in [place] [address] the Medical morning. Branch Cholecalcif 2022-0 Yes 125ug Take 125 U nivers wdight, 3-20 mcg by it[facility] of Vitamin D3, 14:47: [place] 125 mcg 49 Medical (5,000 Branch unit) tablet multivitami 2022-0 Yes 1{tbl} Take 1 Un bhumi n tablet 3-20 tablet by ity of 14:47: mouth in [place] [address] the Medical morning. Branch Cholecalcif 2022-0 Yes 125ug Take 125 U nivers [place]ight, 3-20 mcg by [facility] of Vitamin D3, 14:47: [place] 125 mcg 49 Medical (5,000 Branch unit) tablet multivitami 2022-0 Yes 1{tbl} Take 1 Un bhumi n tablet 3-20 tablet by ity of 14:47: mouth in [place] [address] the Medical morning. Branch Cholecalcif 2022-0 Yes 125ug Take 125 U n[facility] [place]ight, 3-20 mcg by [facility] of Vitamin D3, 14:47: [place] 125 [place]cg 49 [facility] (5,000 Branch unit) tablet multivitami 2022-0 Yes 1{tbl} Take 1 Un bhumi n tablet 3-20 tablet by ity of 14:47: mouth in [place] [address] the Medical morning. Branch Cholecalcif 2023-0 Yes 125ug Take 125 U n[facility] [place], 3-20 mcg by it[facility] of Vitamin D3, 14:47: [place] 125 [place] 49 [facility] (5,000 Branch unit) tablet multivitami 2022-0 Yes 1{tbl} Take 1 Un b[facility]i n tablet 3-20 tablet by ity of 14:47: mouth in [place] [address] the Medical morning. Branch Cholecalcif 0 Yes 125ug Take 125 U n[facility] [place], 3-20 mcg by it[facility] of Vitamin D3, 14:47: [place] 125 [place] 49 Medical (5,000 Branch unit) tablet multivitami 2022-0 Yes 1{tbl} Take 1 Un b[facility]i n tablet 3-20 tablet by ity of 14:47: mouth in [place] [address] the Medical morning. Branch Cholecalcif 0 Yes 125ug Take 125 [facility] n[facility] [place], 3-20 mcg by [facility] of Vitamin D3, 14:47: [place] 125 [place] 49 [facility] (5,000 Branch unit) tablet multivitami 0 Yes 1{tbl} Take 1 Un [facility] n tablet 3-20 tablet by ity of 14:47: mouth in [place] [address] the Medical morning. Branch Cholecalcif 0 Yes 125ug Take 125 [facility] [place], 3-20 mcg by [facility] of Vitamin D3, 14:47: [place] 125 [place] 49 [facility] (5,000 Branch unit) tablet multivitami 2022-0 Yes 1{tbl} Take 1 Un b[facility]i n tablet 3-20 tablet by ity of 14:47: mouth in [place] [address] the Medical morning. Branch Cholecalcif 2022-0 Yes 125ug Take 125 [facility] [place], 3-20 mcg by [facility] of Vitamin D3, 14:47: [place] 125 [place] 49 [facility] (5,000 Branch unit) tablet multivitami 2022-0 Yes 1{tbl} Take 1 Un b[facility]i n tablet 3-20 tablet by ity of 14:47: mouth in [place] [address] the Medical morning. Branch Cholecalcif 2022-0 Yes 125ug Take 125 U n[facility] [place], 3-20 mcg by [facility] of Vitamin D3, 14:47: [place] 125 [place] 49 [facility] (5,000 Branch unit) tablet multivitami 2022-0 Yes 1{tbl} Take 1 Un b[facility]i n tablet 3-20 tablet by ity of 14:47: mouth in [place] [address] the Medical morning. Branch Cholecalcif 2022-0 Yes 125ug Take 125 U n[facility] [place], 3-20 mcg by [facility] of Vitamin D3, 14:47: [place] 125 [place] 49 [facility] (5,000 Branch unit) tablet multivitami 2022-0 Yes 1{tbl} Take 1 Un [facility]i n tablet 3-20 tablet by ity of 14:47: mouth in [place] [address] the Medical morning. Branch Cholecalcif 2022-0 Yes 125ug Take 125 U n[facility] [place], 3-20 mcg by [facility] of Vitamin D3, 14:47: [place] 125 [place] 49 [facility] (5,000 Branch unit) tablet multivitami 2022-0 Yes 1{tbl} Take 1 Un [facility] n tablet 3-20 tablet by ity of 14:47: mouth in [place] [address] the Medical morning. Branch Cholecalcif 2022-0 Yes 125ug Take 125 U n[facility] [place], 3-20 mcg by [facility] of Vitamin D3, 14:47: [place] 49 [facility] (5,000 Branch unit) tablet multivitami 2022-0 Yes 1{tbl} Take 1 Un [facility] n tablet 3-20 tablet by ity of 14:47: mouth in [place] [address] the Medical morning. Branch Cholecalcif 2022-0 Yes 125ug Take 125 U n[facility] [place], 3-20 mcg by [facility] of Vitamin D3, 14:47: mouth[place] 125 [place] 49 Medical (5,000 Branch unit) tablet multivitami 2022-0 Yes 1{tbl} Take 1 Un b[facility]i n tablet 3-20 tablet by ity of 14:47: mouth in [place] [address] the Medical morning. Branch Cholecalcif 2023-0 Yes 125ug Take 125 U n[facility] [place], 3-20 mcg by [facility] of Vitamin D3, 14:47: [place] 125 [place] 49 Medical (5,000 Branch unit) tablet multivitami 2022-0 Yes 1{tbl} Take 1 Un b[facility]i n tablet 3-20 tablet by ity of 14:47: mouth in [place] [address] the Medical morning. Branch Cholecalcif 2023-0 Yes 125ug Take 125 U n[facility] [place], 3-20 mcg by [facility] of Vitamin D3, 14:47: mouth[place] 125 [place] 49 Medical (5,000 Branch unit) tablet multivitami 2022-0 Yes 1{tbl} Take 1 Un b[facility] n tablet 3-20 tablet by ity of 14:47: mouth in [place] [address] the Medical morning. Branch Cholecalcif 0 Yes 125ug Take 125 U n[facility] [place], 3-20 mcg by it[facility] of Vitamin D3, 14:47: mouth[place] 125 [place] 49 Medical (5,000 Branch unit) tablet multivitami 2022-0 Yes 1{tbl} Take 1 Un bhumi n tablet 3-20 tablet by ity of 14:47: mouth in [place] [address] the Medical morning. Branch Cholecalcif 0 Yes 125ug Take 125 U n[facility] [place], 3-20 mcg by it[facility] of Vitamin D3, 14:47: mouth[place] 125 [place] 49 Medical (5,000 Branch unit) tablet multivitami 2022-0 Yes 1{tbl} Take 1 Un b[facility] n tablet 3-20 tablet by ity of 14:47: mouth in [place] [address] the Medical morning. Branch Cholecalcif 0 Yes 125ug Take 125 U n[facility] [place], 3-20 mcg by it[facility] of Vitamin D3, 14:47: mouth[place] 125 [place]cg 49 Medical (5,000 Branch unit) tablet multivitami 2022-0 Yes 1{tbl} Take 1 Un b[facility] n tablet 3-20 tablet by ity of 14:47: mouth in [place] [address] the Medical morning. Branch Cholecalcif 2022-0 Yes 125ug Take 125 U n[facility] [place], 3-20 mcg by it[facility] of Vitamin D3, 14:47: mouth. [place] 125 [place] 49 Medical (5,000 Branch unit) tablet multivitami 2022-0 Yes 1{tbl} Take 1 Un b[facility] n tablet 3-20 tablet by ity of 14:47: mouth in [place] [address] the Medical morning. Branch Cholecalcif 2022-0 Yes 125ug Take 125 U nivers [place], 3-20 mcg by it[facility] of Vitamin D3, 14:47: mouth. [place] 125 mcg 49 Medical (5,000 Branch unit) tablet multivitami 2022-0 Yes 1{tbl} Take 1 Un b[facility]i n tablet 3-20 tablet by ity of 14:47: mouth in [place] [address] the Medical morning. Branch Cholecalcif 2022-0 Yes 125ug Take 125 U nivers [place], 3-20 mcg by it[facility] of Vitamin D3, 14:47: mouth. [place] 125 mcg 49 Medical (5,000 Branch unit) tablet multivitami 2022-0 Yes 1{tbl} Take 1 Un b[facility] n tablet 3-20 tablet by ity of 14:47: mouth in [place] [address] the Medical morning. Branch Cholecalcif 2022-0 Yes 125ug Take 125 U nivers [place]ight, 3-20 mcg by it[facility] of Vitamin D3, 14:47: mouth. [place] 125 mcg 49 Medical (5,000 Branch unit) tablet multivitami 2022-0 Yes 1{tbl} Take 1 Un b[facility] n tablet 3-20 tablet by ity of 14:47: mouth in [place] [address] the Medical morning. Branch Cholecalcif 2022-0 Yes 125ug Take 125 U n[facility] [place], 3-20 mcg by it[facility] of Vitamin D3, 14:47: mouth. [place] 125 [place]cg 49 Medical (5,000 Branch unit) tablet multivitami 2022-0 Yes 1{tbl} Take 1 Un b[facility]i n tablet 3-20 tablet by ity of 14:47: mouth in [place] [address] the Medical morning. Branch Cholecalcif 2022-0 Yes 125ug Take 125 U n[facility] [place]ight, 3-20 mcg by it[facility] of Vitamin D3, 14:47: mouth. [place] 125 mcg 49 Medical (5,000 Branch unit) tablet multivitami 2022-0 Yes 1{tbl} Take 1 Un b[facility]i n tablet 3-20 tablet by ity of 14:47: mouth in [place] [address] the Medical morning. Branch Cholecalcif 2022-0 Yes 125ug Take 125 U nivers [place]ight, 3-20 mcg by it[facility] of Vitamin D3, 14:47: mouth. [place] 125 mcg 49 Medical (5,000 Branch unit) tablet multivitami 2022-0 Yes 1{tbl} Take 1 Un b[facility]i n tablet 3-20 tablet by ity of 14:47: mouth in [place] [address] the Medical morning. Branch Cholecalcif 2022-0 Yes 125ug Take 125 U nivers [place]ight, 3-20 mcg by it[facility] of Vitamin D3, 14:47: mouth. [place] 125 mcg 49 Medical (5,000 Branch unit) tablet multivitami 2022-0 Yes 1{tbl} Take 1 Un b[facility] n tablet 3-20 tablet by ity of 14:47: mouth in [place] [address] the Medical morning. Branch Cholecalcif 2022-0 Yes 125ug Take 125 U nivers [place]ight, 3-20 mcg by ity of Vitamin D3, 14:47: mouth. [place] 125 mcg 49 Medical (5,000 Branch unit) tablet multivitami 2022-0 Yes 1{tbl} Take 1 Un b[facility] n tablet 3-20 tablet by ity of 14:47: mouth in [place] [address] the Medical morning. Branch Cholecalcif 0 Yes 125ug Take 125 U nivers [place], 3-20 mcg by it[facility] of Vitamin D3, 14:47: mouth. [place] 125 mcg 49 Medical (5,000 Branch unit) tablet multivitami 2022-0 Yes 1{tbl} Take 1 Un b[facility]i n tablet 3-20 tablet by ity of 14:47: mouth in [place] [address] the Medical morning. Branch Cholecalcif 0 Yes 125ug Take 125 U nivers [place]ight, 3-20 mcg by ity of Vitamin D3, 14:47: mouth. [place] 125 mcg 49 Medical (5,000 Branch unit) tablet multivitami 2022-0 Yes 1{tbl} Take 1 Un b[facility]i n tablet 3-20 tablet by ity of 14:47: mouth in [place] [address] the Medical morning. Branch Cholecalcif 2022-0 Yes 125ug Take 125 U nivers [place]ight, 3-20 mcg by ity of Vitamin D3, 14:47: mouth. [place] 125 mcg 49 Medical (5,000 Branch unit) tablet multivitami 2022-0 Yes 1{tbl} Take 1 Un b[facility]i n tablet 3-20 tablet by ity of 14:47: mouth in [place] [address] the Medical morning. Branch Cholecalcif 2022-0 Yes 125ug Take 125 U nivers [place]ight, 3-20 mcg by ity of Vitamin D3, 14:47: mouth. [place] 125 mcg 49 Medical (5,000 Branch unit) tablet multivitami 2022-0 Yes 1{tbl} Take 1 Un b[facility]i n tablet 3-20 tablet by ity of 14:47: mouth in [place] [address] the Medical morning. Branch Cholecalcif 2022-0 Yes 125ug Take 125 U nivers [place]ight, 3-20 mcg by ity of Vitamin D3, 14:47: mouth. [place] 125 mcg 49 Medical (5,000 Branch unit) tablet multivitami 2022-0 Yes 1{tbl} Take 1 Un b[facility]i n tablet 3-20 tablet by ity of 14:47: mouth in [place] [address] the Medical morning. Branch Cholecalcif 2022-0 Yes 125ug Take 125 U nivers [place]ight, 3-20 mcg by ity of Vitamin D3, 14:47: mouth. [place] 125 mcg 49 Medical (5,000 Branch unit) tablet multivitami 2022-0 Yes 1{tbl} Take 1 Un bhumi n tablet 3-20 tablet by ity of 14:47: mouth in [place] [address] the Medical morning. Branch Cholecalcif 2022-0 Yes 125ug Take 125 U nivers [place]ight, 3-20 mcg by ity of Vitamin D3, 14:47: mouth. [place] 125 mcg 49 Medical (5,000 Branch unit) tablet multivitami 2022-0 Yes 1{tbl} Take 1 Un b[facility] n tablet 3-20 tablet by ity of 14:47: mouth in [place] [address] the Medical morning. Branch Cholecalcif 2022-0 Yes 125ug Take 125 U nivers [place]ight, 3-20 mcg by it[facility] of Vitamin D3, 14:47: mouth. [place] 125 [place]cg 49 Medical (5,000 Branch unit) tablet multivitami 2022-0 Yes 1{tbl} Take 1 Un b[facility] n tablet 3-20 tablet by ity of 14:47: mouth in [place] [address] the Medical morning. Branch Cholecalcif 2022-0 Yes 125ug Take 125 U nivers [place], 3-20 mcg by ity of Vitamin D3, 14:47: [place] 125 mcg 49 Medical (5,000 Branch unit) tablet multivitami 2022-0 Yes 1{tbl} Take 1 Un b[facility] n tablet 3-20 tablet by ity of 14:47: mouth in [place] [address] the Medical morning. Branch Cholecalcif 2022-0 Yes 125ug Take 125 U nivers [place]ight, 3-20 mcg by ity of Vitamin D3, 14:47: [place] 125 mcg 49 Medical (5,000 Branch unit) tablet multivitami 2022-0 Yes 1{tbl} Take 1 Un [facility] n tablet 3-20 tablet by ity of 14:47: mouth in [place] [address] the Medical morning. Branch Cholecalcif 2022-0 Yes 125ug Take 125 U nivers [place]ight, 3-20 mcg by it[facility] of Vitamin D3, 14:47: [place]. [place] 125 mcg 49 Medical (5,000 Branch unit) tablet multivitami 2022-0 Yes 1{tbl} Take 1 Un b[facility] n tablet 3-20 tablet by ity of 14:47: mouth in [place] [address] the Medical morning. Branch Cholecalcif 2022-0 Yes 125ug Take 125 U nivers [place], 3-20 mcg by it[facility] of Vitamin D3, 14:47: mouth. [place] 125 mcg 49 Medical (5,000 Branch unit) tablet multivitami 2022-0 Yes 1{tbl} Take 1 Un b[facility] n tablet 3-20 tablet by ity of 14:47: mouth in [place] [address] the Medical morning. Branch Cholecalcif 2022-0 Yes 125ug Take 125 U nivers [place], 3-20 mcg by ity of Vitamin D3, 14:47: [place]. [place] 125 [place]cg 49 Medical (5,000 Branch unit) tablet multivitami 2022-0 Yes 1{tbl} Take 1 Un [facility] n tablet 3-20 tablet by ity of 14:47: mouth in [place] [address] the Medical morning. Branch Cholecalcif 2022-0 Yes 125ug Take 125 U nivers [place], 3-20 mcg by it[facility] of Vitamin D3, 14:47: [place] 125 [place]cg 49 Medical (5,000 Branch unit) tablet multivitami 2022-0 Yes 1{tbl} Take 1 Un [facility] n tablet 3-20 tablet by ity of 14:47: mouth in [place] [address] the Medical morning. Branch Cholecalcif 2023-0 Yes 125ug Take 125 U nivers [place]ight, 3-20 mcg by ity of Vitamin D3, 14:47: mouth. [place] 125 [place]cg 49 Medical (5,000 Branch unit) tablet multivitami 2022-0 Yes 1{tbl} Take 1 Un b[facility] n tablet 3-20 tablet by ity of 14:47: mouth in [place] [address] the Medical morning. Branch Cholecalcif 2022-0 Yes 125ug Take 125 U nivers [place], 3-20 mcg by it[facility] of Vitamin D3, 14:47: mouth. [place] 125 [place]cg 49 Medical (5,000 Branch unit) tablet multivitami 2022-0 Yes 1{tbl} Take 1 Un [facility] n tablet 3-20 tablet by ity of 14:47: mouth in [place] [address] the Medical morning. Branch Cholecalcif 2022-0 Yes 125ug Take 125 U nivers [place], 3-20 mcg by ity of Vitamin D3, 14:47: mouth. [place] 125 [place]cg 49 Medical (5,000 Branch unit) tablet multivitami 2022-0 Yes 1{tbl} Take 1 Un b[facility] n tablet 3-20 tablet by ity of 14:47: mouth in [place] [address] the Medical morning. Branch Cholecalcif 2022-0 Yes 125ug Take 125 U nivers [place], 3-20 mcg by it[facility] of Vitamin D3, 14:47: [place] 125 [place] 49 Medical (5,000 Branch unit) tablet multivitami 2022-0 Yes 1{tbl} Take 1 Un [facility] n tablet 3-20 tablet by ity of 14:47: mouth in [place] [address] the Medical morning. Branch Cholecalcif 2022-0 Yes 125ug Take 125 U nivers [place]ight, 3-20 mcg by ity of Vitamin D3, 14:47: [place] 125 [place] 49 Medical (5,000 Branch unit) tablet multivitami 2022-0 Yes 1{tbl} Take 1 Un [facility] n tablet 3-20 tablet by ity of 14:47: mouth in [place] [address] the Medical morning. Branch Cholecalcif 2022-0 Yes 125ug Take 125 U nivers [place], 3-20 mcg by ity of Vitamin D3, 14:47: mouth[place] 125 [place]cg 49 Medical (5,000 Branch unit) tablet multivitami 2022-0 Yes 1{tbl} Take 1 Un bhumi n tablet 3-20 tablet by ity of 14:47: mouth in [place] 49 the Medical morning. Branch Cholecalcif 2023-0 Yes 125ug Take 125 U nivers dwight, 3-20 mcg by ity of Vitamin D3, 14:47: mouth. [place] 125 [place]cg 49 Medical (5,000 Branch unit) tablet multivitami 2022-0 Yes 1{tbl} Take 1 Un b[facility] n tablet 3-20 tablet by ity of 14:47: mouth in [place] [address] the Medical morning. Branch Cholecalcif 2022-0 Yes 125ug Take 125 U nivers [place]ight, 3-20 mcg by it[facility] of Vitamin D3, 14:47: [place] 125 [place] 49 Medical (5,000 Branch unit) tablet multivitami 2022-0 Yes 1{tbl} Take 1 Un b[facility] n tablet 3-20 tablet by ity of 14:47: mouth in [place] [address] the Medical morning. Branch Cholecalcif 2022-0 Yes 125ug Take 125 U n[facility] [place], 3-20 mcg by it[facility] of Vitamin D3, 14:47: mouth[place] 125 [place] 49 Medical (5,000 Branch unit) tablet multivitami 2022-0 Yes 1{tbl} Take 1 Un [facility] n tablet 3-20 tablet by ity of 14:47: mouth in [place] [address] the Medical morning. Branch Cholecalcif 2022-0 Yes 125ug Take 125 U nivers [place], 3-20 mcg by it[facility] of Vitamin D3, 14:47: [place] 49 Medical (5,000 Branch unit) tablet multivitami 2022-0 Yes 1{tbl} Take 1 Un [facility] n tablet 3-20 tablet by ity of 14:47: mouth in [place] [address] the Medical morning. Branch Cholecalcif 2022-0 Yes 125ug Take 125 U nivers [place]ight, 3-20 mcg by it[facility] of Vitamin D3, 14:47: [place] 125 [place] 49 Medical (5,000 Branch unit) tablet multivitami 2022-0 Yes 1{tbl} Take 1 Un [facility] n tablet 3-20 tablet by ity of 14:47: mouth in [place] [address] the Medical morning. Branch Cholecalcif 3-0 Yes 125ug Take 125 U n[facility] [place], 3-20 mcg by it[facility] of Vitamin D3, 14:47: [place]. [place] 125 [place] 49 Medical (5,000 Branch unit) tablet multivitami 2022-0 Yes 1{tbl} Take 1 Un [facility] n tablet 3-20 tablet by ity of 14:47: mouth in [place] [address] the Medical morning. Branch Cholecalcif 2022-0 Yes 125ug Take 125 U n[facility] [place], 3-20 mcg by it[facility] of Vitamin D3, 14:47: [place] 125 [place] 49 Medical (5,000 Branch unit) tablet multivitami 2022-0 Yes 1{tbl} Take 1 Un [facility] n tablet 3-20 tablet by ity of 14:47: mouth in [place] [address] the Medical morning. Branch Cholecalcif 2022-0 Yes 125ug Take 125 U nivers [place], 3-20 mcg by ity of Vitamin D3, 14:47: [place]. [place] 125 [place] 49 Medical (5,000 Branch unit) tablet multivitami 2022-0 Yes 1{tbl} Take 1 Un [facility] n tablet 3-20 tablet by ity of 14:47: mouth in [place] [address] the Medical morning. Branch Cholecalcif 2022-0 Yes 125ug Take 125 U nivers [place], 3-20 mcg by it[facility] of Vitamin D3, 14:47: [place] 49 Medical (5,000 Branch unit) tablet multivitami 2022-0 Yes 1{tbl} Take 1 Un [facility] n tablet 3-20 tablet by ity of 14:47: mouth in [place] [address] the Medical morning. Branch Cholecalcif 2022-0 Yes 125ug Take 125 U n[facility] [place], 3-20 mcg by ity of Vitamin D3, 14:47: [place] 125 [place] 49 Medical (5,000 Branch unit) tablet multivitami 2022-0 Yes 1{tbl} Take 1 Un [facility] n tablet 3-20 tablet by ity of 14:47: mouth in [place] [address] the Medical morning. Branch Cholecalcif 2022-0 Yes 125ug Take 125 U n[facility] [place], 3-20 mcg by ity of Vitamin D3, 14:47: [place] 125 [place] 49 Medical (5,000 Branch unit) tablet multivitami 2022-0 Yes 1{tbl} Take 1 Un [facility] n tablet 3-20 tablet by ity of 14:47: mouth in [place] 49 the Medical morning. Branch Cholecalcif 2022-0 Yes 125ug Take 125 U nivers [place]ight, 3-20 mcg by it[facility] of Vitamin D3, 14:47: [place] 125 [place] 49 Medical (5,000 Branch unit) tablet multivitami 2022-0 Yes 1{tbl} Take 1 Un [facility] n tablet 3-20 tablet by ity of 14:47: mouth in [place] [address] the Medical morning. Branch Cholecalcif 2022-0 Yes 125ug Take 125 U n[facility] [place], 3-20 mcg by it[facility] of Vitamin D3, 14:47: [place] 49 Medical (5,000 Branch unit) tablet multivitami 2022-0 Yes 1{tbl} Take 1 Un [facility] n tablet 3-20 tablet by ity of 14:47: mouth in [place] [address] the Medical morning. Branch Cholecalcif 0 Yes 125ug Take 125 U n[facility] [place], 3-20 mcg by it[facility] of Vitamin D3, 14:47: [place] 49 Medical (5,000 Branch unit) tablet multivitami 2022-0 Yes 1{tbl} Take 1 Un [facility] n tablet 3-20 tablet by ity of 14:47: mouth in [place] [address] the Medical morning. Branch TAMSULOSIN 2022-0 Yes TAKE 1 Un bhumi 0.4 mg 24 3-20 CAPSULE BY ity of hr capsule 00:00: MOUTH [place] [address] EVERY DAY Medical IN THE Branch MORNING tamsulosin 2022-0 Yes .4mg Take 1 Un bhumi 0.4 mg 24 3-20 capsule by ity of hr capsule 00:00: mouth [place] [address] every Medical morning. Branch oxybutynin 2022-0 Yes [id number] 5mg Take 1 [facility] XL 5 mg 24 3-20 tablet by ity of hr tablet 00:00: mouth in [facility] 00 the Medical morning. Branch metoprolol 2022-0 Yes [id number] 25mg Take 1 U nivers succinate 3-20 tablet by ity o f XL 25 mg 24 00:00: mouth in [place] hr tablet 00 the Medical morning. Branch hydrALAZINE 2022-0 Yes [id number] 50mg Take 1 [facility] 50 mg 3-20 tablet by ity of tablet 00:00: mouth in [place] 00 the Medical morning Branch and 1 tablet in the evening. furosemide 2023-0 Yes [id number] 20mg Take 1 [facility] 20 mg 3-20 tablet by ity of tablet 00:00: mouth in [place] the Medical morning. Branch clopidogreL 3-0 Yes [id number] 75mg Take 1 [facility] 75 mg 3-20 tablet by ity of tablet 00:00: mouth in [place] the Medical morning. Branch tamsulosin 3-0 Yes [id number] .4mg Take 1 Un bhumi 0.4 mg 24 3-20 capsule by ity of hr capsule 00:00: mouth [place] [address] every Medical morning. Branch oxybutynin 3-0 Yes [id number] 5mg Take 1 [facility] XL 5 mg 24 3-20 tablet by ity of hr tablet 00:00: mouth in [facility] the Medical morning. Branch metoprolol 3-0 Yes [id number] 25mg Take 1 U nivers succinate 3-20 tablet by ity o f XL 25 mg 24 00:00: mouth in [place] hr tablet 00 the Medical morning. Branch hydrALAZINE 3-0 Yes [id number] 50mg Take 1 [facility] 50 mg 3-20 tablet by ity of tablet 00:00: mouth in [place] the Medical morning Branch and 1 tablet in the evening. furosemide 3-0 Yes [id number] 20mg Take 1 [facility] 20 mg 3-20 tablet by ity of tablet 00:00: mouth in [place] the Medical morning. Branch clopidogreL 3-0 Yes [id number] 75mg Take 1 [facility] 75 mg 3-20 tablet by ity of tablet 00:00: mouth in [place] the Medical morning. Branch tamsulosin 3-0 Yes [id number] .4mg Take 1 Un bhumi 0.4 mg 24 3-20 capsule by ity of hr capsule 00:00: mouth [place] [address] every Medical morning. Branch oxybutynin 3-0 Yes [id number] 5mg Take 1 [facility] XL 5 mg 24 3-20 tablet by ity of hr tablet 00:00: mouth in [facility] the Medical morning. Branch metoprolol 3-0 Yes [id number] 25mg Take 1 U nivers succinate 3-20 tablet by ity o f XL 25 mg 24 00:00: mouth in [place] hr tablet 00 the Medical morning. Branch hydrALAZINE 2023-0 Yes [id number] 50mg Take 1 [facility] 50 mg 3-20 tablet by it[facility] of tablet 00:00: mouth in [place] the Medical morning Branch and 1 tablet in the evening. furosemide 3-0 Yes [id number] 20mg Take 1 [facility] 20 mg 3-20 tablet by ity of tablet 00:00: mouth in [place] 00 the Medical morning. Branch clopidogreL 3-0 Yes [id number] 75mg Take 1 [facility] 75 mg 3-20 tablet by it[facility] of tablet 00:00: mouth in [place] the Medical morning. Branch tamsulosin 3-0 Yes [id number] .4mg Take 1 Un bhumi 0.4 mg 24 3-20 capsule by ity of hr capsule 00:00: mouth [place] [address] every Medical morning. Branch oxybutynin 3-0 Yes [id number] 5mg Take 1 [facility] XL 5 mg 24 3-20 tablet by ity of hr tablet 00:00: mouth in [facility] the Medical morning. Branch metoprolol 3-0 Yes [id number] 25mg Take 1 U nivers succinate 3-20 tablet by ity o f XL 25 mg 24 00:00: mouth in [place] hr tablet 00 the Medical morning. Branch hydrALAZINE 2022-0 Yes [id number] 50mg Take 1 [facility] 50 mg 3-20 tablet by ity of tablet 00:00: mouth in [place] the Medical morning Branch and 1 tablet in the evening. furosemide 3-0 Yes [id number] 20mg Take 1 [facility] 20 mg 3-20 tablet by ity of tablet 00:00: mouth in [place] the Medical morning. Branch clopidogreL 3-0 Yes [id number] 75mg Take 1 [facility] 75 mg 3-20 tablet by ity of tablet 00:00: mouth in [place] the Medical morning. Branch tamsulosin 3-0 Yes [id number] .4mg Take 1 Un [facility]humi 0.4 mg 24 3-20 capsule by ity of hr capsule 00:00: mouth [place] [address] every Medical morning. Branch oxybutynin 3-0 Yes [id number] 5mg Take 1 [facility] XL 5 mg 24 3-20 tablet by ity of hr tablet 00:00: mouth in [facility] 00 the Medical morning. Branch metoprolol 3-0 Yes [id number] 25mg Take 1 U nivers succinate 3-20 tablet by ity o f XL 25 mg 24 00:00: mouth in [place] hr tablet 00 the Medical morning. Branch hydrALAZINE 3-0 Yes [id number] 50mg Take 1 [facility] 50 mg 3-20 tablet by ity of tablet 00:00: mouth in [place] the Medical morning Branch and 1 tablet in the evening. furosemide 3-0 Yes [id number] 20mg Take 1 [facility] 20 mg 3-20 tablet by ity of tablet 00:00: mouth in [place] the Medical morning. Branch clopidogreL 3-0 Yes [id number] 75mg Take 1 [facility] 75 mg 3-20 tablet by ity of tablet 00:00: mouth in [place] the Medical morning. Branch tamsulosin 3-0 Yes [id number] .4mg Take 1 Un [facility] 0.4 mg 24 3-20 capsule by ity of hr capsule 00:00: mouth [place] [address] every Medical morning. Branch oxybutynin 3-0 Yes [id number] 5mg Take 1 [facility] XL 5 mg 24 3-20 tablet by ity of hr tablet 00:00: mouth in [facility] the Medical morning. Branch metoprolol 2022-0 Yes [id number] 25mg Take 1 U nivers succinate 3-20 tablet by ity o f XL 25 mg 24 00:00: mouth in [place] hr tablet 00 the Medical morning. Branch hydrALAZINE 2022-0 Yes [id number] 50mg Take 1 [facility] 50 mg 3-20 tablet by ity of tablet 00:00: mouth in [place] the Medical morning Branch and 1 tablet in the evening. furosemide 3-0 Yes [id number] 20mg Take 1 [facility] 20 mg 3-20 tablet by ity of tablet 00:00: mouth in [place] the Medical morning. Branch clopidogreL 3-0 Yes [id number] 75mg Take 1 [facility] 75 mg 3-20 tablet by ity of tablet 00:00: mouth in [place] the Medical morning. Branch tamsulosin 3-0 Yes [id number] .4mg Take 1 Un [facility] 0.4 mg 24 3-20 capsule by ity of hr capsule 00:00: mouth [place] [address] every Medical morning. Branch oxybutynin 3-0 Yes [id number] 5mg Take 1 [facility] XL 5 mg 24 3-20 tablet by ity of hr tablet 00:00: mouth in [facility] 00 the Medical morning. Branch metoprolol 3-0 Yes [id number] 25mg Take 1 U nivers succinate 3-20 tablet by ity o f XL 25 mg 24 00:00: mouth in [place] hr tablet 00 the Medical morning. Branch hydrALAZINE 3-0 Yes [id number] 50mg Take 1 [facility] 50 mg 3-20 tablet by ity of tablet 00:00: mouth in [place] 00 the Medical morning Branch and 1 tablet in the evening. furosemide 3-0 Yes [id number] 20mg Take 1 [facility] 20 mg 3-20 tablet by ity of tablet 00:00: mouth in [place] the Medical morning. Branch clopidogreL 2022-0 Yes [id number] 75mg Take 1 [facility] 75 mg 3-20 tablet by ity of tablet 00:00: mouth in [place] the Medical morning. Branch tamsulosin 3-0 Yes [id number] .4mg Take 1 Un [facility] 0.4 mg 24 3-20 capsule by ity of hr capsule 00:00: mouth [place] [address] every Medical morning. Branch oxybutynin 3-0 Yes [id number] 5mg Take 1 [facility] XL 5 mg 24 3-20 tablet by ity of hr tablet 00:00: mouth in [facility] the Medical morning. Branch metoprolol 2022-0 Yes [id number] 25mg Take 1 U nivers succinate 3-20 tablet by ity o f XL 25 mg 24 00:00: mouth in [facility] hr tablet 00 the Medical morning. Branch hydrALAZINE 3-0 Yes [id number] 50mg Take 1 [facility] 50 mg 3-20 tablet by ity of tablet 00:00: mouth in [place] the Medical morning Branch and 1 tablet in the evening. furosemide 3-0 Yes [id number] 20mg Take 1 [facility] 20 mg 3-20 tablet by ity of tablet 00:00: mouth in [place] 00 the Medical morning. Branch clopidogreL 3-0 Yes [id number] 75mg Take 1 [facility] 75 mg 3-20 tablet by ity of tablet 00:00: mouth in [place] 00 the Medical morning. Branch tamsulosin 3-0 Yes [id number] .4mg Take 1 Un [facility] 0.4 mg 24 3-20 capsule by ity of hr capsule 00:00: mouth [place] 00 every Medical morning. Branch oxybutynin 3-0 Yes [id number] 5mg Take 1 [facility] XL 5 mg 24 3-20 tablet by ity of hr tablet 00:00: mouth in [facility] 00 the Medical morning. Branch metoprolol 3-0 Yes [id number] 25mg Take 1 U nivers succinate 3-20 tablet by ity o f XL 25 mg 24 00:00: mouth in [place] hr tablet 00 the Medical morning. Branch hydrALAZINE 3-0 Yes [id number] 50mg Take 1 [facility] 50 mg 3-20 tablet by ity of tablet 00:00: mouth in [place] 00 the Medical morning Branch and 1 tablet in the evening. furosemide 3-0 Yes [id number] 20mg Take 1 [facility] 20 mg 3-20 tablet by ity of tablet 00:00: mouth in [place] the Medical morning. Branch clopidogreL 2022-0 Yes [id number] 75mg Take 1 [facility] 75 mg 3-20 tablet by ity of tablet 00:00: mouth in [place] the Medical morning. Branch tamsulosin 2022-0 Yes [id number] .4mg Take 1 Un [facility] 0.4 mg 24 3-20 capsule by ity of hr capsule 00:00: mouth [place] 00 every Medical morning. Branch oxybutynin 2022-0 Yes [id number] 5mg Take 1 [facility] XL 5 mg 24 3-20 tablet by ity of hr tablet 00:00: mouth in [facility] the Medical morning. Branch metoprolol 3-0 Yes [id number] 25mg Take 1 U nivers succinate 3-20 tablet by ity o f XL 25 mg 24 00:00: mouth in [place] hr tablet 00 the Medical morning. Branch hydrALAZINE 3-0 Yes [id number] 50mg Take 1 [facility] 50 mg 3-20 tablet by ity of tablet 00:00: mouth in [place] 00 the Medical morning Branch and 1 tablet in the evening. furosemide 3-0 Yes [id number] 20mg Take 1 [facility] 20 mg 3-20 tablet by ity of tablet 00:00: mouth in [place] 00 the Medical morning. Branch clopidogreL 3-0 Yes [id number] 75mg Take 1 [facility] 75 mg 3-20 tablet by ity of tablet 00:00: mouth in [place] 00 the Medical morning. Branch tamsulosin 3-0 Yes [id number] .4mg Take 1 Un [facility] 0.4 mg 24 3-20 capsule by ity of hr capsule 00:00: mouth [place] 00 every Medical morning. Branch oxybutynin 3-0 Yes [id number] 5mg Take 1 [facility] XL 5 mg 24 3-20 tablet by [facility] hr tablet 00:00: [facility] Medical [facility]. Branch metoprolol 3-0 Yes [id number] 25mg Take 1 U nivers succinate 3-20 tablet by ity o f XL 25 mg 24 00:00: mouth in [place] hr tablet 00 the Medical morning. Branch hydrALAZINE 2022-0 Yes [id number] 50mg Take 1 [facility] 50 mg 3-20 tablet by ity of tablet 00:00: mouth in [place] 00 the Medical morning Branch and 1 tablet in the evening. furosemide 2022-0 Yes [id number] 20mg Take 1 [facility] 20 mg 3-20 tablet by ity of tablet 00:00: mouth in [place] the Medical morning. Branch clopidogreL 2022-0 Yes [id number] 75mg Take 1 [facility] 75 mg 3-20 tablet by ity of tablet 00:00: mouth in [place] the Medical morning. Branch tamsulosin 3-0 Yes [id number] .4mg Take 1 Un [facility] 0.4 mg 24 3-20 capsule by ity of hr capsule 00:00: mouth [place] 00 every Medical morning. Branch oxybutynin 2022-0 Yes [id number] 5mg Take 1 [facility] XL 5 mg 24 3-20 tablet by ity of hr tablet 00:00: mouth in [facility] the Medical morning. Branch metoprolol 2022-0 Yes [id number] 25mg Take 1 U nivers succinate 3-20 tablet by ity o f XL 25 mg 24 00:00: mouth in [place] hr tablet 00 the Medical morning. Branch hydrALAZINE 3-0 Yes [id number] 50mg Take 1 [facility] 50 mg 3-20 tablet by ity of tablet 00:00: mouth in [place] 00 the Medical morning Branch and 1 tablet in the evening. furosemide 3-0 Yes [id number] 20mg Take 1 [facility] 20 mg 3-20 tablet by ity of tablet 00:00: mouth in [place] 00 the Medical morning. Branch clopidogreL 2022-0 Yes [id number] 75mg Take 1 [facility] 75 mg 3-20 tablet by ity of tablet 00:00: mouth in [place] 00 the Medical morning. Branch tamsulosin 3-0 Yes [id number] .4mg Take 1 Un [facility] 0.4 mg 24 3-20 capsule by ity of hr capsule 00:00: mouth [place] [address] every Medical morning. Branch oxybutynin 3-0 Yes [id number] 5mg Take 1 [facility] XL 5 mg 24 3-20 tablet by ity of hr tablet 00:00: mouth in [facility] 00 the Medical morning. Branch metoprolol 3-0 Yes [id number] 25mg Take 1 U nivers succinate 3-20 tablet by ity o f XL 25 mg 24 00:00: mouth in [place] hr tablet 00 the Medical morning. Branch hydrALAZINE 3-0 Yes [id number] 50mg Take 1 [facility] 50 mg 3-20 tablet by ity of tablet 00:00: mouth in [place] 00 the Medical morning Branch and 1 tablet in the evening. furosemide 3-0 Yes [id number] 20mg Take 1 [facility] 20 mg 3-20 tablet by ity of tablet 00:00: mouth in [place] the Medical morning. Branch clopidogreL 3-0 Yes [id number] 75mg Take 1 [facility] 75 mg 3-20 tablet by ity of tablet 00:00: mouth in [place] the Medical morning. Branch tamsulosin 3-0 Yes [id number] .4mg Take 1 Un [facility] 0.4 mg 24 3-20 capsule by ity of hr capsule 00:00: mouth [place] 00 every Medical morning. Branch oxybutynin 3-0 Yes [id number] 5mg Take 1 [facility] XL 5 mg 24 3-20 tablet by ity of hr tablet 00:00: mouth in [facility] the Medical morning. Branch metoprolol 3-0 Yes [id number] 25mg Take 1 U nivers succinate 3-20 tablet by ity o f XL 25 mg 24 00:00: mouth in [place] hr tablet 00 the Medical morning. Branch hydrALAZINE 3-0 Yes [id number] 50mg Take 1 [facility] 50 mg 3-20 tablet by ity of tablet 00:00: mouth in [place] 00 the Medical morning Branch and 1 tablet in the evening. furosemide 3-0 Yes [id number] 20mg Take 1 [facility] 20 mg 3-20 tablet by ity of tablet 00:00: mouth in [place] 00 the Medical morning. Branch clopidogreL 3-0 Yes [id number] 75mg Take 1 [facility] 75 mg 3-20 tablet by ity of tablet 00:00: mouth in [place] the Medical morning. Branch tamsulosin 3-0 Yes [id number] .4mg Take 1 Un [facility] 0.4 mg 24 3-20 capsule by ity of hr capsule 00:00: mouth [place] [address] every Medical morning. Branch oxybutynin 3-0 Yes [id number] 5mg Take 1 [facility] XL 5 mg 24 3-20 tablet by ity of hr tablet 00:00: mouth in [facility] the Medical morning. Branch metoprolol 3-0 Yes [id number] 25mg Take 1 U nivers succinate 3-20 tablet by ity o f XL 25 mg 24 00:00: mouth in [place] hr tablet 00 the Medical morning. Branch hydrALAZINE 3-0 Yes [id number] 50mg Take 1 [facility] 50 mg 3-20 tablet by ity of tablet 00:00: mouth in [place] the Medical morning Branch and 1 tablet in the evening. furosemide 2023-0 Yes [id number] 20mg Take 1 [facility] 20 mg 3-20 tablet by ity of tablet 00:00: mouth in [place] the Medical morning. Branch clopidogreL 3-0 Yes [id number] 75mg Take 1 [facility] 75 mg 3-20 tablet by ity of tablet 00:00: mouth in [place] the Medical morning. Branch tamsulosin 3-0 Yes [id number] .4mg Take 1 Un [facility] 0.4 mg 24 3-20 capsule by ity of hr capsule 00:00: mouth [place] [address] every Medical morning. Branch oxybutynin 3-0 Yes [id number] 5mg Take 1 [facility] XL 5 mg 24 3-20 tablet by ity of hr tablet 00:00: mouth in [facility] the Medical morning. Branch metoprolol 3-0 Yes [id number] 25mg Take 1 U nivers succinate 3-20 tablet by ity o f XL 25 mg 24 00:00: mouth in [place] hr tablet 00 the Medical morning. Branch hydrALAZINE 3-0 Yes [id number] 50mg Take 1 [facility] 50 mg 3-20 tablet by ity of tablet 00:00: mouth in [place] 00 the Medical morning Branch and 1 tablet in the evening. furosemide 2023-0 Yes [id number] 20mg Take 1 [facility] 20 mg 3-20 tablet by ity of tablet 00:00: mouth in [place] the Medical morning. Branch clopidogreL 3-0 Yes [id number] 75mg Take 1 [facility] 75 mg 3-20 tablet by ity of tablet 00:00: mouth in [place] the Medical morning. Branch tamsulosin 3-0 Yes [id number] .4mg Take 1 Un [facility] 0.4 mg 24 3-20 capsule by ity of hr capsule 00:00: mouth [place] every Medical morning. Branch oxybutynin 3-0 Yes [id number] 5mg Take 1 [facility] XL 5 mg 24 3-20 tablet by ity of hr tablet 00:00: mouth in [facility] the Medical morning. Branch metoprolol 3-0 Yes [id number] 25mg Take 1 U nivers succinate 3-20 tablet by ity o f XL 25 mg 24 00:00: mouth in [place] hr tablet 00 the Medical morning. Branch hydrALAZINE 3-0 Yes [id number] 50mg Take 1 [facility] 50 mg 3-20 tablet by ity of tablet 00:00: mouth in [place] the Medical morning Branch and 1 tablet in the evening. furosemide 3-0 Yes [id number] 20mg Take 1 [facility] 20 mg 3-20 tablet by ity of tablet 00:00: mouth in [place] the Medical morning. Branch clopidogreL 3-0 Yes [id number] 75mg Take 1 [facility] 75 mg 3-20 tablet by ity of tablet 00:00: mouth in [place] the Medical morning. Branch tamsulosin 3-0 Yes [id number] .4mg Take 1 Un [facility] 0.4 mg 24 3-20 capsule by ity of hr capsule 00:00: mouth [place] [address] every Medical morning. Branch oxybutynin 3-0 Yes [id number] 5mg Take 1 [facility] XL 5 mg 24 3-20 tablet by ity of hr tablet 00:00: mouth in [facility] the Medical morning. Branch metoprolol 3-0 Yes [id number] 25mg Take 1 U nivers succinate 3-20 tablet by ity o f XL 25 mg 24 00:00: mouth in [place] hr tablet 00 the Medical morning. Branch hydrALAZINE 3-0 Yes [id number] 50mg Take 1 [facility] 50 mg 3-20 tablet by ity of tablet 00:00: mouth in [place] 00 the Medical morning Branch and 1 tablet in the evening. furosemide 3-0 Yes [id number] 20mg Take 1 [facility] 20 mg 3-20 tablet by ity of tablet 00:00: mouth in [place] 00 the Medical morning. Branch clopidogreL 3-0 Yes [id number] 75mg Take 1 [facility] 75 mg 3-20 tablet by ity of tablet 00:00: mouth in [place] 00 the Medical morning. Branch tamsulosin 3-0 Yes [id number] .4mg Take 1 Un [facility] 0.4 mg 24 3-20 capsule by ity of hr capsule 00:00: mouth [place] [address] every Medical morning. Branch oxybutynin 2022-0 Yes [id number] 5mg Take 1 [facility] XL 5 mg 24 3-20 tablet by ity of hr tablet 00:00: mouth in [facility] the Medical morning. Branch metoprolol 2022-0 Yes [id number] 25mg Take 1 U nivers succinate 3-20 tablet by ity o f XL 25 mg 24 00:00: mouth in [place] hr tablet 00 the Medical morning. Branch hydrALAZINE 2022-0 Yes [id number] 50mg Take 1 [facility] 50 mg 3-20 tablet by ity of tablet 00:00: mouth in [place] the Medical morning Branch and 1 tablet in the evening. furosemide 3-0 Yes [id number] 20mg Take 1 [facility] 20 mg 3-20 tablet by ity of tablet 00:00: mouth in [place] 00 the Medical morning. Branch clopidogreL 3-0 Yes [id number] 75mg Take 1 [facility] 75 mg 3-20 tablet by ity of tablet 00:00: mouth in [place] 00 the Medical morning. Branch tamsulosin 3-0 Yes [id number] .4mg Take 1 Un [facility] 0.4 mg 24 3-20 capsule by ity of hr capsule 00:00: mouth [place] [address] every Medical morning. Branch oxybutynin 3-0 Yes [id number] 5mg Take 1 [facility] XL 5 mg 24 3-20 tablet by ity of hr tablet 00:00: mouth in [facility] 00 the Medical morning. Branch metoprolol 3-0 Yes [id number] 25mg Take 1 U nivers succinate 3-20 tablet by ity o f XL 25 mg 24 00:00: mouth in [place] hr tablet 00 the Medical morning. Branch hydrALAZINE 3-0 Yes [id number] 50mg Take 1 [facility] 50 mg 3-20 tablet by ity of tablet 00:00: mouth in [place] 00 the Medical morning Branch and 1 tablet in the evening. furosemide 3-0 Yes [id number] 20mg Take 1 [facility] 20 mg 3-20 tablet by ity of tablet 00:00: mouth in [place] 00 the Medical morning. Branch clopidogreL 2022-0 Yes [id number] 75mg Take 1 [facility] 75 mg 3-20 tablet by ity of tablet 00:00: mouth in [place] the Medical morning. Branch tamsulosin 3-0 Yes [id number] .4mg Take 1 Un [facility] 0.4 mg 24 3-20 capsule by ity of hr capsule 00:00: mouth [place] every Medical morning. Branch oxybutynin 2022-0 Yes [id number] 5mg Take 1 [facility] XL 5 mg 24 3-20 tablet by ity of hr tablet 00:00: mouth in [facility] the Medical morning. Branch metoprolol 3-0 Yes [id number] 25mg Take 1 U nivers succinate 3-20 tablet by ity o f XL 25 mg 24 00:00: mouth in [place] hr tablet 00 the Medical morning. Branch hydrALAZINE 2022-0 Yes [id number] 50mg Take 1 [facility] 50 mg 3-20 tablet by ity of tablet 00:00: mouth in [place] the Medical morning Branch and 1 tablet in the evening. furosemide 3-0 Yes [id number] 20mg Take 1 [facility] 20 mg 3-20 tablet by ity of tablet 00:00: mouth in [place] the Medical morning. Branch clopidogreL 3-0 Yes [id number] 75mg Take 1 [facility] 75 mg 3-20 tablet by ity of tablet 00:00: mouth in [place] 00 the Medical morning. Branch tamsulosin 3-0 Yes [id number] .4mg Take 1 Un [facility] 0.4 mg 24 3-20 capsule by ity of hr capsule 00:00: mouth [place] 00 every Medical morning. Branch oxybutynin 3-0 Yes [id number] 5mg Take 1 [facility] XL 5 mg 24 3-20 tablet by [facility] of hr tablet 00:00: mouth [place] 00 the Medical morning. Branch metoprolol 3-0 Yes [id number] 25mg Take 1 U nivers succinate 3-20 tablet by ity o f XL 25 mg 24 00:00: mouth in [place] hr tablet 00 the Medical morning. Branch hydrALAZINE 3-0 Yes [id number] 50mg Take 1 [facility] 50 mg 3-20 tablet by ity of tablet 00:00: mouth in [place] the Medical morning Branch and 1 tablet in the evening. furosemide 3-0 Yes [id number] 20mg Take 1 [facility] 20 mg 3-20 tablet by ity of tablet 00:00: mouth in [place] the Medical morning. Branch clopidogreL 3-0 Yes [id number] 75mg Take 1 [facility] 75 mg 3-20 tablet by ity of tablet 00:00: mouth in [place] the Medical morning. Branch tamsulosin 3-0 Yes [id number] .4mg Take 1 Un [facility] 0.4 mg 24 3-20 capsule by ity of hr capsule 00:00: mouth [place] [address] every Medical morning. Branch oxybutynin 3-0 Yes [id number] 5mg Take 1 [facility] XL 5 mg 24 3-20 tablet by ity of hr tablet 00:00: mouth in [facility] the Medical morning. Branch metoprolol 3-0 Yes [id number] 25mg Take 1 U nivers succinate 3-20 tablet by ity o f XL 25 mg 24 00:00: mouth in [facility] hr tablet 00 the Medical morning. Branch hydrALAZINE 3-0 Yes [id number] 50mg Take 1 [facility] 50 mg 3-20 tablet by ity of tablet 00:00: mouth in [place] the Medical morning Branch and 1 tablet in the evening. furosemide 3-0 Yes [id number] 20mg Take 1 [facility] 20 mg 3-20 tablet by ity of tablet 00:00: mouth in [place] 00 the Medical morning. Branch clopidogreL 3-0 Yes [id number] 75mg Take 1 [facility] 75 mg 3-20 tablet by ity of tablet 00:00: mouth in [place] [address] the Medical morning. Branch tamsulosin 3-0 Yes [id number] .4mg Take 1 Un [facility] 0.4 mg 24 3-20 capsule by ity of hr capsule 00:00: mouth [place] 00 every Medical morning. Branch oxybutynin 3-0 Yes [id number] 5mg Take 1 [facility] XL 5 mg 24 3-20 tablet by ity of hr tablet 00:00: mouth in [facility] 00 the Medical morning. Branch metoprolol 3-0 Yes [id number] 25mg Take 1 U nivers succinate 3-20 tablet by ity o f XL 25 mg 24 00:00: mouth in [place] hr tablet 00 the Medical morning. Branch hydrALAZINE 3-0 Yes [id number] 50mg Take 1 [facility] 50 mg 3-20 tablet by ity of tablet 00:00: mouth in [place] 00 the Medical morning Branch and 1 tablet in the evening. furosemide 2022-0 Yes [id number] 20mg Take 1 [facility] 20 mg 3-20 tablet by ity of tablet 00:00: mouth in [place] the Medical morning. Branch clopidogreL 2022-0 Yes [id number] 75mg Take 1 [facility] 75 mg 3-20 tablet by ity of tablet 00:00: mouth in [place] the Medical morning. Branch tamsulosin 2022-0 Yes [id number] .4mg Take 1 Un [facility] 0.4 mg 24 3-20 capsule by [facility]y of hr capsule 00:00: mouth [place] 00 every Medical morning. Branch oxybutynin 2022-0 Yes [id number] 5mg Take 1 [facility] XL 5 mg 24 3-20 tablet by [facility]y of hr tablet 00:00: mouth in [facility] the Medical morning. Branch metoprolol 3-0 Yes [id number] 25mg Take 1 U nivers succinate 3-20 tablet by ity o f XL 25 mg 24 00:00: mouth in [place] hr tablet 00 the Medical morning. Branch hydrALAZINE 3-0 Yes [id number] 50mg Take 1 [facility] 50 mg 3-20 tablet by ity of tablet 00:00: mouth in [place] 00 the Medical morning Branch and 1 tablet in the evening. furosemide 3-0 Yes [id number] 20mg Take 1 [facility] 20 mg 3-20 tablet by ity of tablet 00:00: mouth in [place] 00 the Medical morning. Branch clopidogreL 3-0 Yes [id number] 75mg Take 1 [facility] 75 mg 3-20 tablet by [facility]y of tablet 00:00: mouth in [place] 00 the Medical morning. Branch tamsulosin 2023-0 Yes [id number] .4mg Take 1 [facility] 0.4 mg 24 3-20 capsule by [facility]y of hr capsule 00:00: mouth [place] 00 every Medical morning. Branch oxybutynin 3-0 Yes [id number] 5mg Take 1 [facility] XL 5 mg 24 3-20 tablet by [facility] hr tablet 00:00: [facility] Medical [facility]. Branch metoprolol 3-0 Yes [id number] 25mg Take 1 U nivers succinate 3-20 tablet by ity o f XL 25 mg 24 00:00: mouth in [place] hr tablet 00 the Medical morning. Branch hydrALAZINE 2022-0 Yes [id number] 50mg Take 1 [facility] 50 mg 3-20 tablet by ity of tablet 00:00: mouth in [place] 00 the Medical morning Branch and 1 tablet in the evening. furosemide 2022-0 Yes [id number] 20mg Take 1 [facility] 20 mg 3-20 tablet by ity of tablet 00:00: mouth in [place] the Medical morning. Branch clopidogreL 2022-0 Yes [id number] 75mg Take 1 [facility] 75 mg 3-20 tablet by [facility]y of tablet 00:00: mouth in [place] the Medical morning. Branch tamsulosin 3-0 Yes [id number] .4mg Take 1 [facility] 0.4 mg 24 3-20 capsule by [facility] of hr capsule 00:00: mouth [place] 00 every Medical morning. Branch oxybutynin 3-0 Yes [id number] 5mg Take 1 [facility] XL 5 mg 24 3-20 tablet by [facility]y of hr tablet 00:00: mouth in [facility] 00 the Medical morning. Branch metoprolol 3-0 Yes [id number] 25mg Take 1 U nivers succinate 3-20 tablet by ity o f XL 25 mg 24 00:00: mouth in [place] hr tablet 00 the Medical morning. Branch hydrALAZINE 3-0 Yes [id number] 50mg Take 1 [facility] 50 mg 3-20 tablet by [facility]y of tablet 00:00: mouth in [place] 00 the Medical morning Branch and 1 tablet in the evening. furosemide 3-0 Yes [id number] 20mg Take 1 [facility] 20 mg 3-20 tablet by ity of tablet 00:00: mouth in [place] 00 the Medical morning. Branch clopidogreL 3-0 Yes [id number] 75mg Take 1 [facility] 75 mg 3-20 tablet by [facility]y of tablet 00:00: mouth in [place] 00 the Medical morning. Branch tamsulosin 3-0 Yes [id number] .4mg Take 1 [facility] 0.4 mg 24 3-20 capsule by [facility]y of hr capsule 00:00: mouth [place] 00 every Medical morning. Branch oxybutynin 3-0 Yes [id number] 5mg Take 1 [facility] XL 5 mg 24 3-20 tablet by [facility]y of hr tablet 00:00: mouth in [facility] 00 the Medical morning. Branch metoprolol 3-0 Yes [id number] 25mg Take 1 U nivers succinate 3-20 tablet by ity o f XL 25 mg 24 00:00: mouth in [place] hr tablet 00 the Medical morning. Branch hydrALAZINE 2022-0 Yes [id number] 50mg Take 1 [facility] 50 mg 3-20 tablet by [facility]y of tablet 00:00: mouth in [place] 00 the Medical morning Branch and 1 tablet in the evening. furosemide 2022-0 Yes [id number] 20mg Take 1 [facility] 20 mg 3-20 tablet by [facility]y of tablet 00:00: mouth in [place] 00 the Medical morning. Branch clopidogreL 2022-0 Yes [id number] 75mg Take 1 [facility] 75 mg 3-20 tablet by [facility]y of tablet 00:00: mouth in [place] 00 the Medical morning. Branch tamsulosin 3-0 Yes [id number] .4mg Take 1 [facility] 0.4 mg 24 3-20 capsule by [facility] of hr capsule 00:00: mouth [place] 00 every Medical morning. Branch oxybutynin 3-0 Yes [id number] 5mg Take 1 [facility] XL 5 mg 24 3-20 tablet by [facility]y of hr tablet 00:00: mouth in [facility] 00 the Medical morning. Branch metoprolol 3-0 Yes [id number] 25mg Take 1 U nivers succinate 3-20 tablet by ity o f XL 25 mg 24 00:00: mouth in [place] hr tablet 00 the Medical morning. Branch hydrALAZINE 3-0 Yes [id number] 50mg Take 1 [facility] 50 mg 3-20 tablet by [facility]y of tablet 00:00: mouth in [place] 00 the Medical morning Branch and 1 tablet in the evening. furosemide 3-0 Yes [id number] 20mg Take 1 [facility] 20 mg 3-20 tablet by [facility] tablet 00:00: mouth in [place] 00 the Medical morning. Branch clopidogreL 3-0 Yes [id number] 75mg Take 1 [facility] 75 mg 3-20 tablet by [facility] tablet 00:00: mouth in [place] the Medical morning. Branch tamsulosin 3-0 Yes [id number] .4mg Take 1 [facility] 0.4 mg 24 3-20 capsule by [facility] of hr capsule 00:00: mouth [place] 00 every Medical morning. Branch oxybutynin 3-0 Yes [id number] 5mg Take 1 [facility] XL 5 mg 24 3-20 tablet by [facility] of hr tablet 00:00: mouth in [facility] the Medical morning. Branch metoprolol 3-0 Yes [id number] 25mg Take 1 U nivers succinate 3-20 tablet by it[facility] o f XL 25 mg 24 00:00: mouth in [place] hr tablet 00 the Medical morning. Branch hydrALAZINE 3-0 Yes [id number] 50mg Take 1 [facility] 50 mg 3-20 tablet by [facility] of tablet 00:00: mouth in [place] 00 the Medical morning Branch and 1 tablet in the evening. furosemide 3-0 Yes [id number] 20mg Take 1 [facility] 20 mg 3-20 tablet by [facility] of tablet 00:00: mouth in [place] the Medical morning. Branch clopidogreL 2022-0 Yes [id number] 75mg Take 1 [facility] 75 mg 3-20 tablet by [facility] of tablet 00:00: mouth in [place] the Medical morning. Branch tamsulosin 3-0 Yes [id number] .4mg Take 1 [facility] 0.4 mg 24 3-20 capsule by [facility] of hr capsule 00:00: mouth [place] [address] every Medical morning. Branch oxybutynin 3-0 Yes [id number] 5mg Take 1 [facility] XL 5 mg 24 3-20 tablet by [facility] of hr tablet 00:00: mouth in [facility] 00 the Medical morning. Branch metoprolol 3-0 Yes [id number] 25mg Take 1 U nivers succinate 3-20 tablet by ity o f XL 25 mg 24 00:00: mouth in [place] hr tablet 00 the Medical morning. Branch hydrALAZINE 3-0 Yes [id number] 50mg Take 1 [facility] 50 mg 3-20 tablet by [facility] of tablet 00:00: mouth in [place] the Medical morning Branch and 1 tablet in the evening. furosemide 2023-0 Yes [id number] 20mg Take 1 [facility] 20 mg 3-20 tablet by [facility] of tablet 00:00: mouth in [place] 00 the Medical morning. Branch clopidogreL 3-0 Yes [id number] 75mg Take 1 [facility] 75 mg 3-20 tablet by [facility] of tablet 00:00: mouth in [place] 00 the Medical morning. Branch tamsulosin 2023-0 Yes [id number] .4mg Take 1 [facility] 0.4 mg 24 3-20 capsule by [facility] of hr capsule 00:00: mouth [place] 00 every Medical morning. Branch oxybutynin 3-0 Yes [id number] 5mg Take 1 [facility] XL 5 mg 24 3-20 tablet by [facility] of hr tablet 00:00: mouth in [facility] the Medical morning. Branch metoprolol 3-0 Yes [id number] 25mg Take 1 [facility] nivers succinate 3-20 tablet by ity o f XL 25 mg 24 00:00: mouth in [place] hr tablet 00 the Medical morning. Branch hydrALAZINE 3-0 Yes [id number] 50mg Take 1 [facility] 50 mg 3-20 tablet by [facility] of tablet 00:00: mouth in [place] the Medical morning Branch and 1 tablet in the evening. furosemide 3-0 Yes [id number] 20mg Take 1 [facility] 20 mg 3-20 tablet by [facility] of tablet 00:00: mouth in [place] the Medical morning. Branch clopidogreL 3-0 Yes [id number] 75mg Take 1 [facility] 75 mg 3-20 tablet by [facility] of tablet 00:00: mouth in [place] the Medical morning. Branch tamsulosin 2023-0 Yes [id number] .4mg Take 1 [facility] 0.4 mg 24 3-20 capsule by [facility] of hr capsule 00:00: mouth [place] 00 every Medical morning. Branch oxybutynin 3-0 Yes [id number] 5mg Take 1 [facility] XL 5 mg 24 3-20 tablet by [facility] of hr tablet 00:00: mouth in [facility] 00 the Medical morning. Branch metoprolol 2023-0 Yes [id number] 25mg Take 1 [facility] nivers succinate 3-20 tablet by ity o f XL 25 mg 24 00:00: mouth in [place] hr tablet 00 the Medical morning. Branch hydrALAZINE 3-0 Yes [id number] 50mg Take 1 [facility] 50 mg 3-20 tablet by [facility] of tablet 00:00: mouth in [place] the Medical morning Branch and 1 tablet in the evening. furosemide 3-0 Yes [id number] 20mg Take 1 [facility] 20 mg 3-20 tablet by [facility] of tablet 00:00: mouth in [place] the Medical morning. Branch clopidogreL 3-0 Yes [id number] 75mg Take 1 [facility] 75 mg 3-20 tablet by [facility] of tablet 00:00: mouth in [place] the Medical morning. Branch tamsulosin 3-0 Yes [id number] .4mg Take 1 [facility] 0.4 mg 24 3-20 capsule by [facility] of hr capsule 00:00: mouth [place] [address] every Medical morning. Branch oxybutynin 3-0 Yes [id number] 5mg Take 1 [facility] XL 5 mg 24 3-20 tablet by [facility] of hr tablet 00:00: mouth in [facility] the Medical morning. Branch metoprolol 3-0 Yes [id number] 25mg Take 1 U nivers succinate 3-20 tablet by ity o f XL 25 mg 24 00:00: mouth in [place] hr tablet 00 the Medical morning. Branch hydrALAZINE 3-0 Yes [id number] 50mg Take 1 [facility] 50 mg 3-20 tablet by [facility] of tablet 00:00: mouth in [place] the Medical morning Branch and 1 tablet in the evening. furosemide 3-0 Yes [id number] 20mg Take 1 [facility] 20 mg 3-20 tablet by [facility] of tablet 00:00: mouth in [place] the Medical morning. Branch clopidogreL 3-0 Yes [id number] 75mg Take 1 [facility] 75 mg 3-20 tablet by [facility] of tablet 00:00: mouth in [place] [address] the Medical morning. Branch tamsulosin 3-0 Yes [id number] .4mg Take 1 [facility] 0.4 mg 24 3-20 capsule by [facility] of hr capsule 00:00: mouth [place] [address] every Medical morning. Branch oxybutynin 3-0 Yes [id number] 5mg Take 1 [facility] XL 5 mg 24 3-20 tablet by [facility] of hr tablet 00:00: mouth in [place] [address] the Medical morning. Branch metoprolol 3-0 Yes [id number] 25mg Take 1 [facility] nivers succinate 3-20 tablet by ity o f XL 25 mg 24 00:00: mouth in [place] hr tablet 00 the Medical morning. Branch hydrALAZINE 3-0 Yes [id number] 50mg Take 1 [facility] 50 mg 3-20 tablet by [facility] of tablet 00:00: mouth in [place] 00 the Medical morning Branch and 1 tablet in the evening. furosemide 3-0 Yes [id number] 20mg Take 1 [facility] 20 mg 3-20 tablet by [facility] of tablet 00:00: mouth in [place] 00 the Medical morning. Branch clopidogreL 2022-0 Yes [id number] 75mg Take 1 [facility] 75 mg 3-20 tablet by [facility] of tablet 00:00: mouth in [place] the Medical morning. Branch tamsulosin 2022-0 Yes [id number] .4mg Take 1 [facility] 0.4 mg 24 3-20 capsule by [facility] of hr capsule 00:00: mouth [place] every Medical morning. Branch oxybutynin 2022-0 Yes [id number] 5mg Take 1 [facility] XL 5 mg 24 3-20 tablet by [facility] of hr tablet 00:00: mouth in [facility] the Medical morning. Branch metoprolol 2022-0 Yes [id number] 25mg Take 1 U nivers succinate 3-20 tablet by ity o f XL 25 mg 24 00:00: mouth in [place] hr tablet 00 the Medical morning. Branch hydrALAZINE 2022-0 Yes [id number] 50mg Take 1 [facility] 50 mg 3-20 tablet by [facility] of tablet 00:00: mouth in [place] the Medical morning Branch and 1 tablet in the evening. furosemide 3-0 Yes [id number] 20mg Take 1 [facility] 20 mg 3-20 tablet by [facility] of tablet 00:00: mouth in [place] 00 the Medical morning. Branch clopidogreL 3-0 Yes [id number] 75mg Take 1 [facility] 75 mg 3-20 tablet by [facility] of tablet 00:00: mouth in [place] 00 the Medical morning. Branch tamsulosin 3-0 Yes [id number] .4mg Take 1 [facility] 0.4 mg 24 3-20 capsule by [facility] of hr capsule 00:00: mouth [place] 00 every Medical morning. Branch oxybutynin 3-0 Yes [id number] 5mg Take 1 [facility] XL 5 mg 24 3-20 tablet by [facility] of hr tablet 00:00: [facility] the Medical morning. Branch metoprolol 3-0 Yes [id number] 25mg Take 1 U nivers succinate 3-20 tablet by ity o f XL 25 mg 24 00:00: mouth in [place] hr tablet 00 the Medical morning. Branch hydrALAZINE 3-0 Yes [id number] 50mg Take 1 [facility] 50 mg 3-20 tablet by [facility] of tablet 00:00: mouth in [place] the Medical morning Branch and 1 tablet in the evening. furosemide 3-0 Yes [id number] 20mg Take 1 [facility] 20 mg 3-20 tablet by [facility] of tablet 00:00: mouth in [place] the Medical morning. Branch clopidogreL 3-0 Yes [id number] 75mg Take 1 [facility] 75 mg 3-20 tablet by [facility] of tablet 00:00: mouth in [place] the Medical morning. Branch tamsulosin 3-0 Yes [id number] .4mg Take 1 [facility] 0.4 mg 24 3-20 capsule by [facility] of hr capsule 00:00: mouth [place] [address] every Medical morning. Branch oxybutynin 3-0 Yes [id number] 5mg Take 1 [facility] XL 5 mg 24 3-20 tablet by [facility] of hr tablet 00:00: mouth in [facility] the Medical morning. Branch metoprolol 3-0 Yes [id number] 25mg Take 1 U nivers succinate 3-20 tablet by ity o f XL 25 mg 24 00:00: mouth in [place] hr tablet 00 the Medical morning. Branch hydrALAZINE 3-0 Yes [id number] 50mg Take 1 [facility] 50 mg 3-20 tablet by [facility] of tablet 00:00: mouth in [place] the Medical morning Branch and 1 tablet in the evening. furosemide 3-0 Yes [id number] 20mg Take 1 [facility] 20 mg 3-20 tablet by [facility] of tablet 00:00: mouth in [place] 00 the Medical morning. Branch clopidogreL 3-0 Yes [id number] 75mg Take 1 [facility] 75 mg 3-20 tablet by [facility] of tablet 00:00: mouth in [place] 00 the Medical morning. Branch tamsulosin 3-0 Yes [id number] .4mg Take 1 [facility] 0.4 mg 24 3-20 capsule by [facility] of hr capsule 00:00: mouth [place] every Medical morning. Branch oxybutynin 2023-0 Yes [id number] 5mg Take 1 [facility] XL 5 mg 24 3-20 tablet by [facility] of hr tablet 00:00: mouth in [facility] 00 the Medical morning. Branch metoprolol 3-0 Yes [id number] 25mg Take 1 U nivers succinate 3-20 tablet by ity o f XL 25 mg 24 00:00: mouth in [place] hr tablet 00 the Medical morning. Branch hydrALAZINE 3-0 Yes [id number] 50mg Take 1 [facility] 50 mg 3-20 tablet by [facility] of tablet 00:00: mouth in [place] 00 the Medical morning Branch and 1 tablet in the evening. furosemide 3-0 Yes [id number] 20mg Take 1 [facility] 20 mg 3-20 tablet by [facility] of tablet 00:00: mouth in [place] the Medical morning. Branch clopidogreL 3-0 Yes [id number] 75mg Take 1 [facility] 75 mg 3-20 tablet by [facility] of tablet 00:00: mouth in [place] the Medical morning. Branch tamsulosin 3-0 Yes [id number] .4mg Take 1 [facility] 0.4 mg 24 3-20 capsule by [facility] of hr capsule 00:00: mouth [place] every Medical morning. Branch oxybutynin 3-0 Yes [id number] 5mg Take 1 [facility] XL 5 mg 24 3-20 tablet by ity of hr tablet 00:00: mouth in [facility] the Medical morning. Branch metoprolol 3-0 Yes [id number] 25mg Take 1 U nivers succinate 3-20 tablet by ity o f XL 25 mg 24 00:00: mouth in [place] hr tablet 00 the Medical morning. Branch hydrALAZINE 3-0 Yes [id number] 50mg Take 1 [facility] 50 mg 3-20 tablet by [facility] of tablet 00:00: mouth in [place] 00 the Medical morning Branch and 1 tablet in the evening. clopidogreL 3-0 Yes [id number] 75mg Take 1 [facility] 75 mg 3-20 tablet by [facility] of tablet 00:00: mouth in [place] 00 the Medical morning. Branch tamsulosin 3-0 Yes [id number] .4mg Take 1 [facility] 0.4 mg 24 3-20 capsule by [facility] of hr capsule 00:00: mouth [place] 00 every Medical morning. Branch oxybutynin 2023-0 Yes [id number] 5mg Take 1 [facility] XL 5 mg 24 3-20 tablet by ity of hr tablet 00:00: mouth in [facility] the Medical morning. Branch metoprolol 3-0 Yes [id number] 25mg Take 1 U nivers succinate 3-20 tablet by ity o f XL 25 mg 24 00:00: mouth in [place] hr tablet 00 the Medical morning. Branch hydrALAZINE 2023-0 Yes [id number] 50mg Take 1 [facility] 50 mg 3-20 tablet by it[facility] of tablet 00:00: mouth in [place] 00 the Medical morning Branch and 1 tablet in the evening. clopidogreL 3-0 Yes [id number] 75mg Take 1 [facility] 75 mg 3-20 tablet by [facility] of tablet 00:00: mouth in [place] the Medical morning. Branch tamsulosin 2023-0 Yes [id number] .4mg Take 1 [facility] 0.4 mg 24 3-20 capsule by [facility] of hr capsule 00:00: mouth [place] every Medical morning. Branch oxybutynin 3-0 Yes [id number] 5mg Take 1 [facility] XL 5 mg 24 3-20 tablet by ity of hr tablet 00:00: mouth in [facility] the Medical morning. Branch metoprolol 3-0 Yes [id number] 25mg Take 1 U nivers succinate 3-20 tablet by ity o f XL 25 mg 24 00:00: mouth in [place] hr tablet 00 the Medical morning. Branch hydrALAZINE 3-0 Yes [id number] 50mg Take 1 [facility] 50 mg 3-20 tablet by [facility] of tablet 00:00: mouth in [place] the Medical morning Branch and 1 tablet in the evening. clopidogreL 2023-0 Yes [id number] 75mg Take 1 [facility] 75 mg 3-20 tablet by [facility] of tablet 00:00: mouth in [place] 00 the Medical morning. Branch tamsulosin 2023-0 Yes [id number] .4mg Take 1 [facility] 0.4 mg 24 3-20 capsule by [facility]y of hr capsule 00:00: mouth [place] [address] every Medical morning. Branch oxybutynin 2023-0 Yes [id number] 5mg Take 1 [facility] XL 5 mg 24 3-20 tablet by ity of hr tablet 00:00: mouth in [facility] 00 the Medical morning. Branch metoprolol 2023-0 Yes [id number] 25mg Take 1 U nivers succinate 3-20 tablet by ity o f XL 25 mg 24 00:00: mouth in [place] hr tablet 00 the Medical morning. Branch hydrALAZINE 3-0 Yes [id number] 50mg Take 1 [facility] 50 mg 3-20 tablet by ity of tablet 00:00: mouth in [place] 00 the Medical morning Branch and 1 tablet in the evening. clopidogreL 2023-0 Yes [id number] 75mg Take 1 [facility] 75 mg 3-20 tablet by [facility]y of tablet 00:00: mouth in [place] 00 the Medical morning. Branch tamsulosin 2023-0 Yes [id number] .4mg Take 1 [facility] 0.4 mg 24 3-20 capsule by [facility] of hr capsule 00:00: mouth [place] [address] every Medical morning. Branch oxybutynin 3-0 Yes [id number] 5mg Take 1 [facility] XL 5 mg 24 3-20 tablet by ity of hr tablet 00:00: mouth in [facility] the Medical morning. Branch metoprolol 2023-0 Yes [id number] 25mg Take 1 U nivers succinate 3-20 tablet by ity o f XL 25 mg 24 00:00: mouth in [place] hr tablet 00 the Medical morning. Branch hydrALAZINE 3-0 Yes [id number] 50mg Take 1 [facility] 50 mg 3-20 tablet by [facility] of tablet 00:00: mouth in [place] the Medical morning Branch and 1 tablet in the evening. clopidogreL 3-0 Yes [id number] 75mg Take 1 [facility] 75 mg 3-20 tablet by [facility]y of tablet 00:00: mouth in [place] the Medical morning. Branch tamsulosin 2023-0 Yes [id number] .4mg Take 1 [facility] 0.4 mg 24 3-20 capsule by [facility] of hr capsule 00:00: mouth [place] [address] every Medical morning. Branch oxybutynin 2023-0 Yes [id number] 5mg Take 1 [facility] XL 5 mg 24 3-20 tablet by [facility] hr tablet 00:00: mouth [place] 00 the Medical morning. Branch metoprolol 2023-0 Yes [id number] 25mg Take 1 U nivers succinate 3-20 tablet by ity o f XL 25 mg 24 00:00: mouth in [place] hr tablet 00 the Medical morning. Branch hydrALAZINE 3-0 Yes [id number] 50mg Take 1 [facility] 50 mg 3-20 tablet by ity of tablet 00:00: mouth in [place] 00 the Medical morning Branch and 1 tablet in the evening. clopidogreL 3-0 Yes [id number] 75mg Take 1 [facility] 75 mg 3-20 tablet by [facility] of tablet 00:00: mouth in [place] 00 the Medical morning. Branch tamsulosin 3-0 Yes [id number] .4mg Take 1 [facility] 0.4 mg 24 3-20 capsule by [facility] of hr capsule 00:00: mouth [place] 00 every Medical morning. Branch oxybutynin 3-0 Yes [id number] 5mg Take 1 [facility] XL 5 mg 24 3-20 tablet by ity of hr tablet 00:00: mouth in [place] [address] the Medical morning. Branch metoprolol 3-0 Yes [id number] 25mg Take 1 U nivers succinate 3-20 tablet by ity o f XL 25 mg 24 00:00: mouth in [place] hr tablet 00 the Medical morning. Branch hydrALAZINE 2022-0 Yes [id number] 50mg Take 1 [facility] 50 mg 3-20 tablet by ity of tablet 00:00: mouth in [place] the Medical morning Branch and 1 tablet in the evening. clopidogreL 2022-0 Yes [id number] 75mg Take 1 [facility] 75 mg 3-20 tablet by ity of tablet 00:00: mouth in [place] the Medical morning. Branch tamsulosin 3-0 Yes [id number] .4mg Take 1 [facility] 0.4 mg 24 3-20 capsule by [facility]y of hr capsule 00:00: mouth [place] 00 every Medical morning. Branch oxybutynin 3-0 Yes [id number] 5mg Take 1 [facility] XL 5 mg 24 3-20 tablet by ity of hr tablet 00:00: mouth in [facility] 00 the Medical morning. Branch metoprolol 3-0 Yes [id number] 25mg Take 1 U nivers succinate 3-20 tablet by ity o f XL 25 mg 24 00:00: mouth in [place] hr tablet 00 the Medical morning. Branch hydrALAZINE 3-0 Yes [id number] 50mg Take 1 [facility] 50 mg 3-20 tablet by ity of tablet 00:00: mouth in [place] the Medical morning Branch and 1 tablet in the evening. clopidogreL 2023-0 Yes [id number] 75mg Take 1 [facility] 75 mg 3-20 tablet by ity of tablet 00:00: mouth in [place] 00 the Medical morning. Branch tamsulosin 2023-0 Yes [id number] .4mg Take 1 [facility] 0.4 mg 24 3-20 capsule by [facility]y of hr capsule 00:00: mouth [place] [address] every Medical morning. Branch oxybutynin 2023-0 Yes [id number] 5mg Take 1 [facility] XL 5 mg 24 3-20 tablet by [facility]y of hr tablet 00:00: mouth in [place] [address] the Medical morning. Branch metoprolol 2023-0 Yes [id number] 25mg Take 1 U nivers succinate 3-20 tablet by ity o f XL 25 mg 24 00:00: mouth in [place] hr tablet 00 the Medical morning. Branch hydrALAZINE 3-0 Yes [id number] 50mg Take 1 [facility] 50 mg 3-20 tablet by [facility]y of tablet 00:00: mouth in [place] the Medical morning Branch and 1 tablet in the evening. clopidogreL 3-0 Yes [id number] 75mg Take 1 [facility] 75 mg 3-20 tablet by [facility]y of tablet 00:00: mouth in [place] the Medical morning. Branch tamsulosin 3-0 Yes [id number] .4mg Take 1 [facility] 0.4 mg 24 3-20 capsule by [facility] of hr capsule 00:00: mouth [place] [address] every Medical morning. Branch oxybutynin 3-0 Yes [id number] 5mg Take 1 [facility] XL 5 mg 24 3-20 tablet by [facility]y of hr tablet 00:00: mouth in [facility] the Medical morning. Branch metoprolol 2023-0 Yes [id number] 25mg Take 1 U nivers succinate 3-20 tablet by ity o f XL 25 mg 24 00:00: mouth in [place] hr tablet 00 the Medical morning. Branch hydrALAZINE 2023-0 Yes [id number] 50mg Take 1 [facility] 50 mg 3-20 tablet by [facility]y of tablet 00:00: mouth in [place] [address] the Medical morning Branch and 1 tablet in the evening. clopidogreL 2023-0 Yes [id number] 75mg Take 1 [facility] 75 mg 3-20 tablet by ity of tablet 00:00: mouth in [place] the Medical morning. Branch tamsulosin 2023-0 Yes [id number] .4mg Take 1 [facility] 0.4 mg 24 3-20 capsule by [facility]y of hr capsule 00:00: mouth [place] 00 every Medical morning. Branch oxybutynin 3-0 Yes [id number] 5mg Take 1 [facility] XL 5 mg 24 3-20 tablet by [facility]y of hr tablet 00:00: mouth in [facility] the Medical morning. Branch metoprolol 3-0 Yes [id number] 25mg Take 1 U nivers succinate 3-20 tablet by ity o f XL 25 mg 24 00:00: mouth in [place] hr tablet 00 the Medical morning. Branch hydrALAZINE 3-0 Yes [id number] 50mg Take 1 [facility] 50 mg 3-20 tablet by ity of tablet 00:00: mouth in [place] the Medical morning Branch and 1 tablet in the evening. clopidogreL 3-0 Yes [id number] 75mg Take 1 [facility] 75 mg 3-20 tablet by [facility]y of tablet 00:00: mouth in [place] the Medical morning. Branch tamsulosin 3-0 Yes [id number] .4mg Take 1 [facility] 0.4 mg 24 3-20 capsule by [facility] of hr capsule 00:00: mouth [place] [address] every Medical morning. Branch oxybutynin 3-0 Yes [id number] 5mg Take 1 [facility] XL 5 mg 24 3-20 tablet by ity of hr tablet 00:00: mouth in [facility] the Medical morning. Branch metoprolol 3-0 Yes [id number] 25mg Take 1 U nivers succinate 3-20 tablet by ity o f XL 25 mg 24 00:00: mouth in [place] hr tablet 00 the Medical morning. Branch hydrALAZINE 3-0 Yes [id number] 50mg Take 1 [facility] 50 mg 3-20 tablet by ity of tablet 00:00: mouth in [place] the Medical morning Branch and 1 tablet in the evening. clopidogreL 3-0 Yes [id number] 75mg Take 1 [facility] 75 mg 3-20 tablet by ity of tablet 00:00: mouth in [place] [address] the Medical morning. Branch tamsulosin 2023-0 Yes [id number] .4mg Take 1 [facility] 0.4 mg 24 3-20 capsule by [facility]y of hr capsule 00:00: mouth [place] 00 every Medical morning. Branch oxybutynin 2023-0 Yes [id number] 5mg Take 1 [facility] XL 5 mg 24 3-20 tablet by [facility]y of hr tablet 00:00: mouth in [facility] the Medical morning. Branch metoprolol 3-0 Yes [id number] 25mg Take 1 U nivers succinate 3-20 tablet by ity o f XL 25 mg 24 00:00: mouth in [place] hr tablet 00 the Medical morning. Branch hydrALAZINE 3-0 Yes [id number] 50mg Take 1 [facility] 50 mg 3-20 tablet by [facility]y of tablet 00:00: mouth in [place] the Medical morning Branch and 1 tablet in the evening. clopidogreL 3-0 Yes [id number] 75mg Take 1 [facility] 75 mg 3-20 tablet by ity of tablet 00:00: mouth in [place] the Medical morning. Branch tamsulosin 3-0 Yes [id number] .4mg Take 1 [facility] 0.4 mg 24 3-20 capsule by [facility] of hr capsule 00:00: mouth [place] [address] every Medical morning. Branch oxybutynin 3-0 Yes [id number] 5mg Take 1 [facility] XL 5 mg 24 3-20 tablet by ity of hr tablet 00:00: mouth in [facility] the Medical morning. Branch metoprolol 3-0 Yes [id number] 25mg Take 1 U nivers succinate 3-20 tablet by ity o f XL 25 mg 24 00:00: mouth in [facility] hr tablet 00 the Medical morning. Branch hydrALAZINE 3-0 Yes [id number] 50mg Take 1 [facility] 50 mg 3-20 tablet by ity of tablet 00:00: mouth in [place] the Medical morning Branch and 1 tablet in the evening. clopidogreL 3-0 Yes [id number] 75mg Take 1 [facility] 75 mg 3-20 tablet by ity of tablet 00:00: mouth in [place] 00 the Medical morning. Branch tamsulosin 2023-0 Yes [id number] .4mg Take 1 [facility] 0.4 mg 24 3-20 capsule by [facility] of hr capsule 00:00: mouth [place] [address] every Medical morning. Branch oxybutynin 2023-0 Yes [id number] 5mg Take 1 [facility] XL 5 mg 24 3-20 tablet by [facility]y of hr tablet 00:00: mouth in [facility] the Medical morning. Branch metoprolol 3-0 Yes [id number] 25mg Take 1 U nivers succinate 3-20 tablet by ity o f XL 25 mg 24 00:00: mouth in [place] hr tablet 00 the Medical morning. Branch hydrALAZINE 3-0 Yes [id number] 50mg Take 1 [facility] 50 mg 3-20 tablet by ity of tablet 00:00: mouth in [place] 00 the Medical morning Branch and 1 tablet in the evening. clopidogreL 3-0 Yes [id number] 75mg Take 1 [facility] 75 mg 3-20 tablet by [facility]y of tablet 00:00: mouth in [place] the Medical morning. Branch tamsulosin 3-0 Yes [id number] .4mg Take 1 [facility] 0.4 mg 24 3-20 capsule by [facility] of hr capsule 00:00: mouth [place] [address] every Medical morning. Branch oxybutynin 3-0 Yes [id number] 5mg Take 1 [facility] XL 5 mg 24 3-20 tablet by [facility]y of hr tablet 00:00: mouth in [facility] the Medical morning. Branch metoprolol 3-0 Yes [id number] 25mg Take 1 U nivers succinate 3-20 tablet by ity o f XL 25 mg 24 00:00: mouth in [facility] hr tablet the Medical morning. Branch hydrALAZINE 2022-0 Yes [id number] 50mg Take 1 [facility] 50 mg 3-20 tablet by ity of tablet 00:00: mouth in [place] the Medical morning Branch and 1 tablet in the evening. clopidogreL 3-0 Yes [id number] 75mg Take 1 [facility] 75 mg 3-20 tablet by ity of tablet 00:00: mouth in [place] the Medical morning. Branch tamsulosin 3-0 Yes [id number] .4mg Take 1 [facility] 0.4 mg 24 3-20 capsule by [facility] of hr capsule 00:00: mouth [place] [address] every Medical morning. Branch oxybutynin 3-0 Yes [id number] 5mg Take 1 [facility] XL 5 mg 24 3-20 tablet by [facility]y of hr tablet 00:00: mouth in [facility] 00 the Medical morning. Branch metoprolol 3-0 Yes [id number] 25mg Take 1 U nivers succinate 3-20 tablet by ity o f XL 25 mg 24 00:00: mouth in [place] hr tablet 00 the Medical morning. Branch hydrALAZINE 3-0 Yes [id number] 50mg Take 1 [facility] 50 mg 3-20 tablet by ity of tablet 00:00: mouth in [place] 00 the Medical morning Branch and 1 tablet in the evening. clopidogreL 3-0 Yes [id number] 75mg Take 1 [facility] 75 mg 3-20 tablet by [facility]y of tablet 00:00: mouth in [place] 00 the Medical morning. Branch tamsulosin 3-0 Yes [id number] .4mg Take 1 [facility] 0.4 mg 24 3-20 capsule by [facility] of hr capsule 00:00: mouth [place] 00 every Medical morning. Branch oxybutynin 3-0 Yes [id number] 5mg Take 1 [facility] XL 5 mg 24 3-20 tablet by [facility]y of hr tablet 00:00: mouth in [facility] 00 the Medical morning. Branch metoprolol 3-0 Yes [id number] 25mg Take 1 U nivers succinate 3-20 tablet by ity o f XL 25 mg 24 00:00: mouth in [place] hr tablet 00 the Medical morning. Branch hydrALAZINE 2022-0 Yes [id number] 50mg Take 1 [facility] 50 mg 3-20 tablet by [facility]y of tablet 00:00: mouth in [place] the Medical morning Branch and 1 tablet in the evening. clopidogreL 2022-0 Yes [id number] 75mg Take 1 [facility] 75 mg 3-20 tablet by [facility]y of tablet 00:00: mouth in [place] the Medical morning. Branch tamsulosin 3-0 Yes [id number] .4mg Take 1 [facility] 0.4 mg 24 3-20 capsule by [facility] of hr capsule 00:00: mouth [place] 00 every Medical morning. Branch oxybutynin 3-0 Yes [id number] 5mg Take 1 [facility] XL 5 mg 24 3-20 tablet by [facility] of hr tablet 00:00: mouth [facility] the Medical morning. Branch metoprolol 3-0 Yes [id number] 25mg Take 1 U nivers succinate 3-20 tablet by ity o f XL 25 mg 24 00:00: mouth in [place] hr tablet 00 the Medical morning. Branch hydrALAZINE 3-0 Yes [id number] 50mg Take 1 [facility] 50 mg 3-20 tablet by [facility] of tablet 00:00: mouth in [place] the Medical morning Branch and 1 tablet in the evening. clopidogreL 2023-0 Yes [id number] 75mg Take 1 [facility] 75 mg 3-20 tablet by [facility]y of tablet 00:00: mouth in [place] 00 the Medical morning. Branch tamsulosin 2023-0 Yes [id number] .4mg Take 1 [facility] 0.4 mg 24 3-20 capsule by [facility] of hr capsule 00:00: mouth [place] [address] every Medical morning. Branch oxybutynin 3-0 Yes [id number] 5mg Take 1 [facility] XL 5 mg 24 3-20 tablet by [facility] of hr tablet 00:00: mouth in [facility] the Medical morning. Branch metoprolol 3-0 Yes [id number] 25mg Take 1 U nivers succinate 3-20 tablet by ity o f XL 25 mg 24 00:00: mouth in [place] hr tablet 00 the Medical morning. Branch hydrALAZINE 3-0 Yes [id number] 50mg Take 1 [facility] 50 mg 3-20 tablet by [facility] of tablet 00:00: mouth in [place] the Medical morning Branch and 1 tablet in the evening. clopidogreL 3-0 Yes [id number] 75mg Take 1 [facility] 75 mg 3-20 tablet by [facility] of tablet 00:00: mouth in [place] the Medical morning. Branch tamsulosin 3-0 Yes [id number] .4mg Take 1 [facility] 0.4 mg 24 3-20 capsule by [facility] of hr capsule 00:00: mouth [place] every Medical morning. Branch oxybutynin 3-0 Yes [id number] 5mg Take 1 [facility] XL 5 mg 24 3-20 tablet by [facility] of hr tablet 00:00: mouth in [facility] the Medical morning. Branch metoprolol 3-0 Yes [id number] 25mg Take 1 U nivers succinate 3-20 tablet by ity o f XL 25 mg 24 00:00: mouth in [place] hr tablet 00 the Medical morning. Branch hydrALAZINE 2023-0 Yes [id number] 50mg Take 1 [facility] 50 mg 3-20 tablet by [facility] of tablet 00:00: mouth in [place] the Medical morning Branch and 1 tablet in the evening. clopidogreL 2023-0 Yes [id number] 75mg Take 1 [facility] 75 mg 3-20 tablet by [facility] of tablet 00:00: mouth in [place] 00 the Medical morning. Branch tamsulosin 3-0 Yes [id number] .4mg Take 1 [facility] 0.4 mg 24 3-20 capsule by [facility] of hr capsule 00:00: mouth [place] 00 every Medical morning. Branch oxybutynin 3-0 Yes [id number] 5mg Take 1 [facility] XL 5 mg 24 3-20 tablet by [facility] of hr tablet 00:00: mouth in [facility] 00 the Medical morning. Branch metoprolol 3-0 Yes [id number] 25mg Take 1 U nivers succinate 3-20 tablet by ity o f XL 25 mg 24 00:00: mouth in [place] hr tablet 00 the Medical morning. Branch hydrALAZINE 3-0 Yes [id number] 50mg Take 1 [facility] 50 mg 3-20 tablet by [facility] of tablet 00:00: mouth in [place] the Medical morning Branch and 1 tablet in the evening. clopidogreL 2022-0 Yes [id number] 75mg Take 1 [facility] 75 mg 3-20 tablet by [facility] of tablet 00:00: mouth in [place] the Medical morning. Branch tamsulosin 3-0 Yes [id number] .4mg Take 1 [facility] 0.4 mg 24 3-20 capsule by [facility] of hr capsule 00:00: mouth [place] [address] every Medical morning. Branch oxybutynin 3-0 Yes [id number] 5mg Take 1 [facility] XL 5 mg 24 3-20 tablet by [facility] of hr tablet 00:00: mouth in [facility] the Medical morning. Branch metoprolol 3-0 Yes [id number] 25mg Take 1 U nivers succinate 3-20 tablet by ity o f XL 25 mg 24 00:00: mouth in [place] hr tablet 00 the Medical morning. Branch hydrALAZINE 3-0 Yes [id number] 50mg Take 1 [facility] 50 mg 3-20 tablet by [facility] of tablet 00:00: mouth in [place] the Medical morning Branch and 1 tablet in the evening. clopidogreL 3-0 Yes [id number] 75mg Take 1 [facility] 75 mg 3-20 tablet by [facility] of tablet 00:00: mouth in [place] [address] the Medical morning. Branch tamsulosin 3-0 Yes [id number] .4mg Take 1 [facility] 0.4 mg 24 3-20 capsule by [facility] of hr capsule 00:00: mouth [place] 00 every Medical morning. Branch oxybutynin 3-0 Yes [id number] 5mg Take 1 [facility] XL 5 mg 24 3-20 tablet by [facility] tablet 00:00[facility] Branch metoprolol 3-0 Yes [id number] 25mg Take 1 U nivers succinate 3-20 tablet by ity o f XL 25 mg 24 00:00: mouth in [place] hr tablet 00 the Medical morning. Branch hydrALAZINE 3-0 Yes [id number] 50mg Take 1 [facility] 50 mg 3-20 tablet by [facility] of tablet 00:00: mouth in [place] 00 the Medical morning Branch and 1 tablet in the evening. clopidogreL 3-0 Yes [id number] 75mg Take 1 [facility] 75 mg 3-20 tablet by [facility] of tablet 00:00: mouth in [place] 00 the Medical morning. Branch tamsulosin 3-0 Yes [id number] .4mg Take 1 [facility] 0.4 mg 24 3-20 capsule by [facility] of hr capsule 00:00: mouth [place] 00 every Medical morning. Branch oxybutynin 3-0 Yes [id number] 5mg Take 1 [facility] XL 5 mg 24 3-20 tablet by [facility] of hr tablet 00:00: mouth in [facility] the Medical morning. Branch metoprolol 3-0 Yes [id number] 25mg Take 1 U nivers succinate 3-20 tablet by ity o f XL 25 mg 24 00:00: mouth in [place] hr tablet 00 the Medical morning. Branch hydrALAZINE 3-0 Yes [id number] 50mg Take 1 [facility] 50 mg 3-20 tablet by [facility] of tablet 00:00: mouth in [place] 00 the Medical morning Branch and 1 tablet in the evening. clopidogreL 3-0 Yes [id number] 75mg Take 1 [facility] 75 mg 3-20 tablet by [facility] of tablet 00:00: mouth in [place] 00 the Medical morning. Branch tamsulosin 2023-0 Yes [id number] .4mg Take 1 [facility] 0.4 mg 24 3-20 capsule by [facility] of hr capsule 00:00: mouth [place] 00 every Medical morning. Branch oxybutynin 2023-0 Yes [id number] 5mg Take 1 [facility] XL 5 mg 24 3-20 tablet by [facility] hr tablet 00:00[facility]. Branch metoprolol 3-0 Yes [id number] 25mg Take 1 U nivers succinate 3-20 tablet by ity o f XL 25 mg 24 00:00: mouth in [place] hr tablet 00 the Medical morning. Branch hydrALAZINE 3-0 Yes [id number] 50mg Take 1 [facility] 50 mg 3-20 tablet by [facility] of tablet 00:00: mouth in [place] the Medical morning Branch and 1 tablet in the evening. clopidogreL 3-0 Yes [id number] 75mg Take 1 [facility] 75 mg 3-20 tablet by [facility] of tablet 00:00: mouth in [place] 00 the Medical morning. Branch tamsulosin 3-0 Yes [id number] .4mg Take 1 [facility] 0.4 mg 24 3-20 capsule by [facility] of hr capsule 00:00: mouth [place] 00 every Medical morning. Branch oxybutynin 3-0 Yes [id number] 5mg Take 1 [facility] XL 5 mg 24 3-20 tablet by [facility] of hr tablet 00:00: mouth in [facility] the Medical morning. Branch metoprolol 3-0 Yes [id number] 25mg Take 1 U nivers succinate 3-20 tablet by ity o f XL 25 mg 24 00:00: mouth in [place] hr tablet 00 the Medical morning. Branch hydrALAZINE 2022-0 Yes [id number] 50mg Take 1 [facility] 50 mg 3-20 tablet by [facility] of tablet 00:00: mouth in [place] the Medical morning Branch and 1 tablet in the evening. clopidogreL 3-0 Yes [id number] 75mg Take 1 [facility] 75 mg 3-20 tablet by [facility] of tablet 00:00: mouth in [place] 00 the Medical morning. Branch tamsulosin 3-0 Yes [id number] .4mg Take 1 [facility] 0.4 mg 24 3-20 capsule by [facility] of hr capsule 00:00: mouth [place] 00 every Medical morning. Branch oxybutynin 3-0 Yes [id number] 5mg Take 1 [facility] XL 5 mg 24 3-20 tablet by [facility] of hr tablet 00:00: mouth in [facility] 00 the Medical morning. Branch metoprolol 3-0 Yes [id number] 25mg Take 1 U nivers succinate 3-20 tablet by ity o f XL 25 mg 24 00:00: mouth in [place] hr tablet 00 the Medical morning. Branch hydrALAZINE 3-0 Yes [id number] 50mg Take 1 [facility] 50 mg 3-20 tablet by [facility] of tablet 00:00: mouth in [place] 00 the Medical morning Branch and 1 tablet in the evening. clopidogreL 3-0 Yes [id number] 75mg Take 1 [facility] 75 mg 3-20 tablet by [facility] of tablet 00:00: mouth in [place] 00 the Medical morning. Branch tamsulosin 3-0 Yes [id number] .4mg Take 1 [facility] 0.4 mg 24 3-20 capsule by [facility] of hr capsule 00:00: mouth [place] 00 every Medical morning. Branch oxybutynin 3-0 Yes [id number] 5mg Take 1 [facility] XL 5 mg 24 3-20 tablet by [facility] of hr tablet 00:00: mouth in [facility] 00 the Medical morning. Branch metoprolol 3-0 Yes [id number] 25mg Take 1 U nivers succinate 3-20 tablet by ity o f XL 25 mg 24 00:00: mouth in [place] hr tablet 00 the Medical morning. Branch hydrALAZINE 3-0 Yes [id number] 50mg Take 1 [facility] 50 mg 3-20 tablet by [facility] of tablet 00:00: mouth in [place] the Medical morning Branch and 1 tablet in the evening. clopidogreL 3-0 Yes [id number] 75mg Take 1 [facility] 75 mg 3-20 tablet by [facility] of tablet 00:00: mouth in [place] 00 the Medical morning. Branch tamsulosin 3-0 Yes [id number] .4mg Take 1 [facility] 0.4 mg 24 3-20 capsule by [facility] of hr capsule 00:00: mouth [place] 00 every Medical morning. Branch oxybutynin 3-0 Yes [id number] 5mg Take 1 [facility] XL 5 mg 24 3-20 tablet by [facility] of hr tablet 00:00: mouth in [facility] 00 the Medical morning. Branch metoprolol 3-0 Yes [id number] 25mg Take 1 U nivers succinate 3-20 tablet by ity o f XL 25 mg 24 00:00: mouth in [place] hr tablet 00 the Medical morning. Branch hydrALAZINE 3-0 Yes [id number] 50mg Take 1 [facility] 50 mg 3-20 tablet by [facility] of tablet 00:00: mouth in [place] the Medical morning Branch and 1 tablet in the evening. clopidogreL 2023-0 Yes [id number] 75mg Take 1 [facility] 75 mg 3-20 tablet by [facility] of tablet 00:00: mouth in [place] the Medical morning. Branch tamsulosin 2023-0 Yes [id number] .4mg Take 1 [facility] 0.4 mg 24 3-20 capsule by [facility] of hr capsule 00:00: mouth [place] [address] every Medical morning. Branch oxybutynin 3-0 Yes [id number] 5mg Take 1 [facility] XL 5 mg 24 3-20 tablet by ity of hr tablet 00:00: mouth in [facility] the Medical morning. Branch metoprolol 3-0 Yes [id number] 25mg Take 1 U nivers succinate 3-20 tablet by ity o f XL 25 mg 24 00:00: mouth in [place] hr tablet 00 the Medical morning. Branch hydrALAZINE 3-0 Yes [id number] 50mg Take 1 [facility] 50 mg 3-20 tablet by [facility] of tablet 00:00: mouth in [place] the Medical morning Branch and 1 tablet in the evening. clopidogreL 3-0 Yes [id number] 75mg Take 1 [facility] 75 mg 3-20 tablet by [facility] of tablet 00:00: mouth in [place] the Medical morning. Branch tamsulosin 3-0 Yes [id number] .4mg Take 1 [facility] 0.4 mg 24 3-20 capsule by [facility] of hr capsule 00:00: mouth [place] every Medical morning. Branch oxybutynin 3-0 Yes [id number] 5mg Take 1 [facility] XL 5 mg 24 3-20 tablet by [facility]y of hr tablet 00:00: mouth in [facility] the Medical morning. Branch metoprolol 3-0 Yes [id number] 25mg Take 1 U nivers succinate 3-20 tablet by ity o f XL 25 mg 24 00:00: mouth in [place] hr tablet 00 the Medical morning. Branch hydrALAZINE 2023-0 Yes [id number] 50mg Take 1 [facility] 50 mg 3-20 tablet by [facility] of tablet 00:00: mouth in [place] the Medical morning Branch and 1 tablet in the evening. clopidogreL 2023-0 Yes [id number] 75mg Take 1 [facility] 75 mg 3-20 tablet by [facility] of tablet 00:00: mouth in [place] 00 the Medical morning. Branch tamsulosin 3-0 Yes [id number] .4mg Take 1 [facility] 0.4 mg 24 3-20 capsule by [facility] of hr capsule 00:00: mouth [place] 00 every Medical morning. Branch oxybutynin 3-0 Yes [id number] 5mg Take 1 [facility] XL 5 mg 24 3-20 tablet by ity of hr tablet 00:00: mouth in [facility] 00 the Medical morning. Branch metoprolol 3-0 Yes [id number] 25mg Take 1 U nivers succinate 3-20 tablet by ity o f XL 25 mg 24 00:00: mouth in [place] hr tablet 00 the Medical morning. Branch hydrALAZINE 3-0 Yes [id number] 50mg Take 1 [facility] 50 mg 3-20 tablet by [facility] of tablet 00:00: mouth in [place] the Medical morning Branch and 1 tablet in the evening. clopidogreL 2022-0 Yes [id number] 75mg Take 1 [facility] 75 mg 3-20 tablet by [facility] of tablet 00:00: mouth in [place] the Medical morning. Branch tamsulosin 3-0 Yes [id number] .4mg Take 1 [facility] 0.4 mg 24 3-20 capsule by [facility] of hr capsule 00:00: mouth [place] 00 every Medical morning. Branch oxybutynin 3-0 Yes [id number] 5mg Take 1 [facility] XL 5 mg 24 3-20 tablet by ity of hr tablet 00:00: mouth in [facility] 00 the Medical morning. Branch metoprolol 3-0 Yes [id number] 25mg Take 1 U nivers succinate 3-20 tablet by ity o f XL 25 mg 24 00:00: mouth in [place] hr tablet 00 the Medical morning. Branch hydrALAZINE 3-0 Yes [id number] 50mg Take 1 [facility] 50 mg 3-20 tablet by it[facility] of tablet 00:00: mouth in [place] 00 the Medical morning Branch and 1 tablet in the evening. clopidogreL 3-0 Yes [id number] 75mg Take 1 [facility] 75 mg 3-20 tablet by it[facility] of tablet 00:00: mouth in [place] 00 the Medical morning. Branch tamsulosin 3-0 Yes [id number] .4mg Take 1 [facility] 0.4 mg 24 3-20 capsule by [facility] of hr capsule 00:00: mouth [place] 00 every Medical morning. Branch oxybutynin 3-0 Yes [id number] 5mg Take 1 [facility] XL 5 mg 24 3-20 tablet by [facility] hr tablet 00:00[facility] Branch metoprolol 3-0 Yes [id number] 25mg Take 1 U nivers succinate 3-20 tablet by ity o f XL 25 mg 24 00:00: mouth in [place] hr tablet 00 the Medical morning. Branch hydrALAZINE 3-0 Yes [id number] 50mg Take 1 [facility] 50 mg 3-20 tablet by [facility] of tablet 00:00: mouth in [place] 00 the Medical morning Branch and 1 tablet in the evening. clopidogreL 2022-0 Yes [id number] 75mg Take 1 [facility] 75 mg 3-20 tablet by [facility] of tablet 00:00: mouth in [place] the Medical morning. Branch tamsulosin 3-0 Yes [id number] .4mg Take 1 [facility] 0.4 mg 24 3-20 capsule by [facility] of hr capsule 00:00: mouth [place] every Medical morning. Branch oxybutynin 3-0 Yes [id number] 5mg Take 1 [facility] XL 5 mg 24 3-20 tablet by ity of hr tablet 00:00: mouth in [facility] the Medical morning. Branch metoprolol 3-0 Yes [id number] 25mg Take 1 U nivers succinate 3-20 tablet by ity o f XL 25 mg 24 00:00: mouth in [place] hr tablet 00 the Medical morning. Branch hydrALAZINE 3-0 Yes [id number] 50mg Take 1 [facility] 50 mg 3-20 tablet by [facility]y of tablet 00:00: mouth in [place] 00 the Medical morning Branch and 1 tablet in the evening. clopidogreL 3-0 Yes [id number] 75mg Take 1 [facility] 75 mg 3-20 tablet by [facility] of tablet 00:00: mouth in [place] 00 the Medical morning. Branch tamsulosin 3-0 Yes [id number] .4mg Take 1 [facility] 0.4 mg 24 3-20 capsule by [facility] of hr capsule 00:00: mouth [place] 00 every Medical morning. Branch oxybutynin 3-0 Yes [id number] 5mg Take 1 [facility] XL 5 mg 24 3-20 tablet by [facility] hr tablet 00:00: mouth [place] the Medical morning. Branch metoprolol 3-0 Yes [id number] 25mg Take 1 U nivers succinate 3-20 tablet by ity o f XL 25 mg 24 00:00: mouth in [place] hr tablet 00 the Medical morning. Branch hydrALAZINE 2022-0 Yes [id number] 50mg Take 1 [facility] 50 mg 3-20 tablet by [facility]y of tablet 00:00: mouth in [place] 00 the Medical morning Branch and 1 tablet in the evening. clopidogreL 3-0 Yes [id number] 75mg Take 1 [facility] 75 mg 3-20 tablet by [facility]y of tablet 00:00: mouth in [place] 00 the Medical morning. Branch tamsulosin 2022-0 Yes [id number] .4mg Take 1 [facility] 0.4 mg 24 3-20 capsule by [facility]y of hr capsule 00:00: mouth [place] 00 every Medical morning. Branch oxybutynin 2022-0 Yes [id number] 5mg Take 1 [facility] XL 5 mg 24 3-20 tablet by ity of hr tablet 00:00: mouth in [facility] the Medical morning. Branch metoprolol 2022-0 Yes [id number] 25mg Take 1 U nivers succinate 3-20 tablet by ity o f XL 25 mg 24 00:00: mouth in [place] hr tablet 00 the Medical morning. Branch hydrALAZINE 2022-0 Yes [id number] 50mg Take 1 [facility] 50 mg 3-20 tablet by ity of tablet 00:00: mouth in [place] the Medical morning Branch and 1 tablet in the evening. clopidogreL 3-0 Yes [id number] 75mg Take 1 [facility] 75 mg 3-20 tablet by [facility]y of tablet 00:00: mouth in [place] 00 the Medical morning. Branch tamsulosin 3-0 Yes [id number] .4mg Take 1 [facility] 0.4 mg 24 3-20 capsule by [facility] of hr capsule 00:00: mouth [place] 00 every Medical morning. Branch oxybutynin 3-0 Yes [id number] 5mg Take 1 [facility] XL 5 mg 24 3-20 tablet by [facility] of hr tablet 00:00: mouth [place] 00 the Medical morning. Branch metoprolol 3-0 Yes [id number] 25mg Take 1 U nivers succinate 3-20 tablet by ity o f XL 25 mg 24 00:00: mouth in [place] hr tablet 00 the Medical morning. Branch hydrALAZINE 3-0 Yes [id number] 50mg Take 1 [facility] 50 mg 3-20 tablet by ity of tablet 00:00: mouth in [place] 00 the Medical morning Branch and 1 tablet in the evening. clopidogreL 3-0 Yes [id number] 75mg Take 1 [facility] 75 mg 3-20 tablet by [facility]y of tablet 00:00: mouth in [place] 00 the Medical morning. Branch tamsulosin 3-0 Yes [id number] .4mg Take 1 [facility] 0.4 mg 24 3-20 capsule by [facility] of hr capsule 00:00: mouth [place] 00 every Medical morning. Branch oxybutynin 2022-0 Yes [id number] 5mg Take 1 [facility] XL 5 mg 24 3-20 tablet by [facility]y of hr tablet 00:00: mouth in [facility] 00 the Medical morning. Branch metoprolol 2022-0 Yes [id number] 25mg Take 1 U nivers succinate 3-20 tablet by ity o f XL 25 mg 24 00:00: mouth in [place] hr tablet 00 the Medical morning. Branch hydrALAZINE 2022-0 Yes [id number] 50mg Take 1 [facility] 50 mg 3-20 tablet by ity of tablet 00:00: mouth in [place] the Medical morning Branch and 1 tablet in the evening. clopidogreL 2022-0 Yes [id number] 75mg Take 1 [facility] 75 mg 3-20 tablet by [facility]y of tablet 00:00: mouth in [place] 00 the Medical morning. Branch tamsulosin 3-0 Yes [id number] .4mg Take 1 [facility] 0.4 mg 24 3-20 capsule by [facility] of hr capsule 00:00: mouth [place] 00 every Medical morning. Branch oxybutynin 3-0 Yes [id number] 5mg Take 1 [facility] XL 5 mg 24 3-20 tablet by [facility] hr tablet 00:00: mouth [place] 00 the Medical morning. Branch metoprolol 3-0 Yes [id number] 25mg Take 1 U nivers succinate 3-20 tablet by ity o f XL 25 mg 24 00:00: mouth in [place] hr tablet 00 the Medical morning. Branch hydrALAZINE 3-0 Yes [id number] 50mg Take 1 [facility] 50 mg 3-20 tablet by ity of tablet 00:00: mouth in [place] the Medical morning Branch and 1 tablet in the evening. clopidogreL 3-0 Yes [id number] 75mg Take 1 [facility] 75 mg 3-20 tablet by ity of tablet 00:00: mouth in [place] the Medical morning. Branch tamsulosin 2023-0 Yes [id number] .4mg Take 1 [facility] 0.4 mg 24 3-20 capsule by [facility] of hr capsule 00:00: mouth [place] [address] every Medical morning. Branch oxybutynin 3-0 Yes [id number] 5mg Take 1 [facility] XL 5 mg 24 3-20 tablet by [facility]y of hr tablet 00:00: mouth in [facility] the Medical morning. Branch metoprolol 3-0 Yes [id number] 25mg Take 1 U nivers succinate 3-20 tablet by ity o f XL 25 mg 24 00:00: mouth in [place] hr tablet 00 the Medical morning. Branch hydrALAZINE 3-0 Yes [id number] 50mg Take 1 [facility] 50 mg 3-20 tablet by [facility]y of tablet 00:00: mouth in [place] the Medical morning Branch and 1 tablet in the evening. clopidogreL 3-0 Yes [id number] 75mg Take 1 [facility] 75 mg 3-20 tablet by ity of tablet 00:00: mouth in [place] the Medical morning. Branch tamsulosin 3-0 Yes [id number] .4mg Take 1 [facility] 0.4 mg 24 3-20 capsule by [facility]y of hr capsule 00:00: mouth [place] [address] every Medical morning. Branch oxybutynin 3-0 Yes [id number] 5mg Take 1 [facility] XL 5 mg 24 3-20 tablet by ity of hr tablet 00:00: mouth in [facility] the Medical morning. Branch metoprolol 3-0 Yes [id number] 25mg Take 1 U nivers succinate 3-20 tablet by ity o f XL 25 mg 24 00:00: mouth in [place] hr tablet 00 the Medical morning. Branch hydrALAZINE 3-0 Yes [id number] 50mg Take 1 [facility] 50 mg 3-20 tablet by [facility]y of tablet 00:00: mouth in [place] the Medical morning Branch and 1 tablet in the evening. clopidogreL 2023-0 Yes [id number] 75mg Take 1 [facility] 75 mg 3-20 tablet by [facility]y of tablet 00:00: mouth in [place] 00 the Medical morning. Branch tamsulosin 3-0 Yes [id number] .4mg Take 1 [facility] 0.4 mg 24 3-20 capsule by [facility]y of hr capsule 00:00: mouth [place] 00 every Medical morning. Branch oxybutynin 3-0 Yes [id number] 5mg Take 1 [facility] XL 5 mg 24 3-20 tablet by [facility]y of hr tablet 00:00: mouth in [facility] 00 the Medical morning. Branch metoprolol 3-0 Yes [id number] 25mg Take 1 U nivers succinate 3-20 tablet by ity o f XL 25 mg 24 00:00: mouth in [place] hr tablet 00 the Medical morning. Branch hydrALAZINE 3-0 Yes [id number] 50mg Take 1 [facility] 50 mg 3-20 tablet by ity of tablet 00:00: mouth in [place] the Medical morning Branch and 1 tablet in the evening. clopidogreL 2022-0 Yes [id number] 75mg Take 1 [facility] 75 mg 3-20 tablet by [facility]y of tablet 00:00: mouth in [place] the Medical morning. Branch tamsulosin 2022-0 Yes [id number] .4mg Take 1 [facility] 0.4 mg 24 3-20 capsule by [facility] of hr capsule 00:00: mouth [place] 00 every Medical morning. Branch oxybutynin 3-0 Yes [id number] 5mg Take 1 [facility] XL 5 mg 24 3-20 tablet by [facility]y of hr tablet 00:00: mouth in [facility] 00 the Medical morning. Branch metoprolol 3-0 Yes [id number] 25mg Take 1 U nivers succinate 3-20 tablet by ity o f XL 25 mg 24 00:00: mouth in [place] hr tablet 00 the Medical morning. Branch hydrALAZINE 3-0 Yes [id number] 50mg Take 1 [facility] 50 mg 3-20 tablet by ity of tablet 00:00: mouth in [place] 00 the Medical morning Branch and 1 tablet in the evening. clopidogreL 3-0 Yes [id number] 75mg Take 1 [facility] 75 mg 3-20 tablet by [facility]y of tablet 00:00: mouth in [place] 00 the Medical morning. Branch tamsulosin 2023-0 Yes [id number] .4mg Take 1 [facility] 0.4 mg 24 3-20 capsule by [facility] of hr capsule 00:00: mouth [place] 00 every Medical morning. Branch oxybutynin 3-0 Yes [id number] 5mg Take 1 [facility] XL 5 mg 24 3-20 tablet by [facility] hr tablet 00:00: mouth [place] 00 the Medical morning. Branch metoprolol 3-0 Yes [id number] 25mg Take 1 U nivers succinate 3-20 tablet by ity o f XL 25 mg 24 00:00: mouth in [place] hr tablet 00 the Medical morning. Branch hydrALAZINE 3-0 Yes [id number] 50mg Take 1 [facility] 50 mg 3-20 tablet by [facility]y of tablet 00:00: mouth in [place] 00 the Medical morning Branch and 1 tablet in the evening. clopidogreL 2022-0 Yes [id number] 75mg Take 1 [facility] 75 mg 3-20 tablet by [facility]y of tablet 00:00: mouth in [place] 00 the Medical morning. Branch tamsulosin 3-0 Yes [id number] .4mg Take 1 [facility] 0.4 mg 24 3-20 capsule by [facility] of hr capsule 00:00: mouth [place] 00 every Medical morning. Branch oxybutynin 3-0 Yes [id number] 5mg Take 1 [facility] XL 5 mg 24 3-20 tablet by [facility]y of hr tablet 00:00: mouth in [facility] 00 the Medical morning. Branch metoprolol 3-0 Yes [id number] 25mg Take 1 U nivers succinate 3-20 tablet by ity o f XL 25 mg 24 00:00: mouth in [place] hr tablet 00 the Medical morning. Branch hydrALAZINE 3-0 Yes [id number] 50mg Take 1 [facility] 50 mg 3-20 tablet by [facility]y of tablet 00:00: mouth in [place] the Medical morning Branch and 1 tablet in the evening. clopidogreL 3-0 Yes [id number] 75mg Take 1 [facility] 75 mg 3-20 tablet by ity of tablet 00:00: mouth in [place] 00 the Medical morning. Branch tamsulosin 3-0 Yes [id number] .4mg Take 1 [facility] 0.4 mg 24 3-20 capsule by [facility] of hr capsule 00:00: mouth [place] 00 every Medical morning. Branch oxybutynin 3-0 Yes [id number] 5mg Take 1 [facility] XL 5 mg 24 3-20 tablet by [facility] hr tablet 00:00: mouth [place] the Medical morning. Branch metoprolol 3-0 Yes [id number] 25mg Take 1 U nivers succinate 3-20 tablet by ity o f XL 25 mg 24 00:00: mouth in [place] hr tablet 00 the Medical morning. Branch hydrALAZINE 3-0 Yes [id number] 50mg Take 1 [facility] 50 mg 3-20 tablet by ity of tablet 00:00: mouth in [place] the Medical morning Branch and 1 tablet in the evening. clopidogreL 3-0 Yes [id number] 75mg Take 1 [facility] 75 mg 3-20 tablet by [facility]y of tablet 00:00: mouth in [place] the Medical morning. Branch tamsulosin 3-0 Yes [id number] .4mg Take 1 [facility] 0.4 mg 24 3-20 capsule by [facility]y of hr capsule 00:00: mouth [place] [address] every Medical morning. Branch oxybutynin 3-0 Yes [id number] 5mg Take 1 [facility] XL 5 mg 24 3-20 tablet by [facility]y of hr tablet 00:00: mouth in [facility] the Medical morning. Branch metoprolol 3-0 Yes [id number] 25mg Take 1 U nivers succinate 3-20 tablet by ity o f XL 25 mg 24 00:00: mouth in [place] hr tablet 00 the Medical morning. Branch hydrALAZINE 3-0 Yes [id number] 50mg Take 1 [facility] 50 mg 3-20 tablet by [facility]y of tablet 00:00: mouth in [place] the Medical morning Branch and 1 tablet in the evening. clopidogreL 3-0 Yes [id number] 75mg Take 1 [facility] 75 mg 3-20 tablet by [facility]y of tablet 00:00: mouth in [place] the Medical morning. Branch tamsulosin 2023-0 Yes [id number] .4mg Take 1 [facility] 0.4 mg 24 3-20 capsule by [facility] of hr capsule 00:00: mouth [place] [address] every Medical morning. Branch oxybutynin 2023-0 Yes [id number] 5mg Take 1 [facility] XL 5 mg 24 3-20 tablet by [facility]y of hr tablet 00:00: mouth in [place] 00 the Medical morning. Branch metoprolol 2023-0 Yes [id number] 25mg Take 1 U nivers succinate 3-20 tablet by ity o f XL 25 mg 24 00:00: mouth in [place] hr tablet 00 the Medical morning. Branch hydrALAZINE 2022-0 Yes [id number] 50mg Take 1 [facility] 50 mg 3-20 tablet by [facility]y of tablet 00:00: mouth in [place] 00 the Medical morning Branch and 1 tablet in the evening. clopidogreL 2022-0 Yes [id number] 75mg Take 1 [facility] 75 mg 3-20 tablet by [facility]y of tablet 00:00: mouth in [place] 00 the Medical morning. Branch tamsulosin 3-0 Yes [id number] .4mg Take 1 [facility] 0.4 mg 24 3-20 capsule by [facility] of hr capsule 00:00: mouth [place] [address] every Medical morning. Branch oxybutynin 2022-0 Yes [id number] 5mg Take 1 [facility] XL 5 mg 24 3-20 tablet by [facility]y of hr tablet 00:00: mouth in [facility] 00 the Medical morning. Branch metoprolol 2022-0 Yes [id number] 25mg Take 1 U nivers succinate 3-20 tablet by ity o f XL 25 mg 24 00:00: mouth in [place] hr tablet 00 the Medical morning. Branch hydrALAZINE 2022-0 Yes [id number] 50mg Take 1 [facility] 50 mg 3-20 tablet by ity of tablet 00:00: mouth in [place] 00 the Medical morning Branch and 1 tablet in the evening. clopidogreL 2022-0 Yes [id number] 75mg Take 1 [facility] 75 mg 3-20 tablet by ity of tablet 00:00: mouth in [place] 00 the Medical morning. Branch furosemide 2023-0 2023- No [id number] 20mg Take 1 [facility] 20 mg 3-20 05-05 tablet by ity of tablet 00:00: 00:00 mouth in [place] 00 :00 the Medical morning. Branch furosemide 2023-0 2023- No [id number] 20mg Take 1 [facility] 20 mg 3-20 05-05 tablet by ity of tablet 00:00: 00:00 mouth in [place] 00 :00 the Medical morning. Branch furosemide 2023-0 2023- No [id number] 20mg Take 1 [facility] 20 mg 3-20 05-05 tablet by ity of tablet 00:00: 00:00 mouth in [place] 00 :00 the Medical morning. [place] TAMSULOSIN 3-0 2022- No TAKE 1 U nivers 0.4 mg 24 3-20 03-20 CAPSULE BY ity of hr capsule 00:00: 00:00 MOUTH [place] 00 :00 EVERY DAY Medical IN [facility] TAMSULOSIN 2022-0 3- No TAKE 1 U nivers 0.4 mg 24 3-20 03-20 CAPSULE BY ity of hr capsule 00:00: 00:00 MOUTH [place] 00 :00 EVERY DAY Medical IN THE [facility] [employer] TAMSULOSIN 3-0 2022- No TAKE 1 U nivers 0.4 mg 24 3-20 03-20 CAPSULE BY ity of hr capsule 00:00: 00:00 MOUTH [place] 00 :00 EVERY DAY Medical IN THE [employer] TAMSULOSIN 2022-0 2022- No TAKE 1 U nivers 0.4 mg 24 3-20 03-20 CAPSULE BY ity of hr capsule 00:00: 00:00 MOUTH [place] 00 :00 EVERY DAY Medical IN [facility] metoprolol 2022-0 Yes [id number] 25mg Take 1 U nivers succinate 3-14 tablet by ity o f XL 25 mg 24 00:00: mouth in [place] hr tablet 00 the Medical morning. Branch metoprolol 2022-0 Yes [id number] 25mg Take 1 U nivers succinate 3-14 tablet by ity o f XL 25 mg 24 00:00: mouth in [place] hr tablet 00 the Medical morning. Branch metoprolol 3-0 Yes [id number] 25mg Take 1 U nivers succinate 3-14 tablet by ity o f XL 25 mg 24 00:00: mouth in [place] hr tablet 00 the Medical morning. Branch metoprolol 3-0 Yes [id number] 25mg Take 1 U nivers succinate 3-14 tablet by ity o f XL 25 mg 24 00:00: mouth in [place] hr tablet 00 the Medical morning. Branch metoprolol 3-0 Yes [id number] 25mg Take 1 U nivers succinate 3-14 tablet by ity o f XL 25 mg 24 00:00: mouth in [place] hr tablet 00 the Medical morning. Branch metoprolol 3-0 Yes [id number] 25mg Take 1 [facility] nivers succinate 3-14 tablet by ity o f XL 25 mg 24 00:00: mouth in [place] hr tablet 00 the Medical morning. Branch metoprolol 2022-0 Yes [id number] 25mg Take 1 [facility] nivers succinate 3-14 tablet by ity o f XL 25 mg 24 00:00: mouth in [place] hr tablet 00 the Medical morning. Branch metoprolol 2022-0 Yes [id number] 25mg Take 1 [facility] nivers succinate 3-14 tablet by ity o f XL 25 mg 24 00:00: mouth in [place] hr tablet 00 the Medical morning. Branch metoprolol 2022-0 Yes [id number] 25mg Take 1 [facility] nivers succinate 3-14 tablet by ity o f XL 25 mg 24 00:00: mouth in [place] hr tablet 00 the Medical morning. Branch metoprolol 2022-0 Yes [id number] 25mg Take 1 [facility] nivers succinate 3-14 tablet by ity o f XL 25 mg 24 00:00: mouth in [place] hr tablet 00 the Medical morning. Branch metoprolol 2022-0 Yes [id number] 25mg Take 1 [facility] nivers succinate 3-14 tablet by ity o f XL 25 mg 24 00:00: mouth in [place] hr tablet 00 the Medical morning. Branch metoprolol 2022-0 Yes [id number] 25mg Take 1 [facility] nivers succinate 3-14 tablet by ity o f XL 25 mg 24 00:00: mouth in [place] hr tablet 00 the Medical morning. Branch metoprolol 2022-0 3- No [id number] 25mg Take 1 [facility] succinate 3-14 03-20 tablet by ity of XL 25 mg 24 00:00: 00:00 mouth in [place] hr tablet 00 :00 the Medical morning. Branch metoprolol 2022-0 3- No [id number] 25mg Take 1 [facility] succinate 3-14 03-20 tablet by ity of XL 25 mg 24 00:00: 00:00 mouth in [place] hr tablet 00 :00 the Medical morning. Branch metoprolol 2022-0 3- No [id number] 25mg Take 1 [facility] succinate 3-14 03-20 tablet by ity of XL 25 mg 24 00:00: 00:00 mouth in [place] hr tablet 00 :00 the Medical morning. Branch metoprolol 2022-0 2023- No [id number] 25mg Take 1 [facility] succinate 3-14 03-20 tablet by ity of XL 25 mg 24 00:00: 00:00 mouth in [place] hr tablet 00 :00 the Medical morning. Branch hydrALAZINE 2022-0 Yes TAKE 1 [facility] ers 50 mg 3-02 TABLET BY ity of tablet 00:00: MOUTH [place] 00 TWICE A Medical DAY Branch hydrALAZINE 2022-0 Yes TAKE 1 [facility] ers 50 mg 3-02 TABLET BY ity of tablet 00:00: MOUTH [place] 00 TWICE A Medical DAY Branch hydrALAZINE 2022-0 Yes TAKE 1 [facility] ers 50 mg 3-02 TABLET BY ity of tablet 00:00: MOUTH 00 TWICE A Medical DAY Branch hydrALAZINE 2022-0 Yes TAKE 1 [facility] ers 50 mg 3-02 TABLET BY ity of tablet 00:00: MOUTH [place] 00 TWICE A Medical DAY Branch hydrALAZINE 2022-0 Yes TAKE 1 [facility] ers 50 mg 3-02 TABLET BY ity of tablet 00:00: MOUTH 00 TWICE A Medical DAY Branch hydrALAZINE 2022-0 Yes TAKE 1 [facility] ers 50 mg 3-02 TABLET BY ity of tablet 00:00: MOUTH [place] 00 TWICE A Medical DAY Branch hydrALAZINE 2022-0 Yes TAKE 1 Univ ers 50 mg 3-02 TABLET BY ity of tablet 00:00: MOUTH 00 TWICE A Medical DAY Branch hydrALAZINE 2022-0 Yes TAKE 1 Univ ers 50 mg 3-02 TABLET BY ity of tablet 00:00: MOUTH 00 TWICE A Medical DAY Branch hydrALAZINE 2022-0 Yes TAKE 1 [facility] ers 50 mg 3-02 TABLET BY ity of tablet 00:00: MOUTH [place] 00 TWICE A Medical DAY Branch hydrALAZINE 2022-0 Yes TAKE 1 Univ ers 50 mg 3-02 TABLET BY ity of tablet 00:00: MOUTH [place] 00 TWICE A Medical DAY Branch hydrALAZINE 2022-0 Yes TAKE 1 [facility] ers 50 mg 3-02 TABLET BY ity of tablet 00:00: MOUTH [place] 00 TWICE A Medical DAY Branch hydrALAZINE 2022-0 Yes TAKE 1 Univ ers 50 mg 3-02 TABLET BY ity of tablet 00:00: MOUTH [place] 00 TWICE A Medical DAY Branch hydrALAZINE 2022-0 Yes TAKE 1 Univ ers 50 mg 3-02 TABLET BY ity of tablet 00:00: MOUTH [place] 00 TWICE A Medical DAY Branch hydrALAZINE 2022-0 Yes TAKE 1 Univ ers 50 mg 3-02 TABLET BY ity of tablet 00:00: MOUTH [place] 00 TWICE A Medical DAY Branch hydrALAZINE 2022-0 Yes TAKE 1 Univ ers 50 mg 3-02 TABLET BY ity of tablet 00:00: MOUTH [place] 00 TWICE A Medical DAY Branch hydrALAZINE 2022-0 3- No TAKE 1 Uni vers 50 mg 3-02 03-20 TABLET BY ity of tablet 00:00: 00:00 MOUTH [place] 00 :00 TWICE A Medical DAY Branch hydrALAZINE 2022-0 2022- No TAKE 1 Uni vers 50 mg 3-02 03-20 TABLET BY ity of tablet 00:00: 00:00 MOUTH [place] 00 :00 TWICE A Medical DAY Branch hydrALAZINE 2022-0 2022- No TAKE 1 Uni vers 50 mg 3-02 03-20 TABLET BY ity of tablet 00:00: 00:00 MOUTH [place] 00 :00 TWICE A Medical DAY Branch hydrALAZINE 2022-0 2022- No TAKE 1 Uni vers 50 mg 3-02 03-20 TABLET BY ity of tablet 00:00: 00:00 MOUTH [place] 00 :00 TWICE A Medical DAY Branch TAMSULOSIN 3-0 Yes TAKE 1 Un bhumi 0.4 mg 24 2-20 CAPSULE BY ity of hr capsule 00:00: MOUTH [place] 00 EVERY DAY Medical IN THE Branch MORNING TAMSULOSIN 3-0 Yes TAKE 1 Un bhumi 0.4 mg 24 2-20 CAPSULE BY ity of hr capsule 00:00: MOUTH [place] 00 EVERY DAY Medical IN THE Branch MORNING TAMSULOSIN 3-0 Yes TAKE 1 Un bhumi 0.4 mg 24 2-20 CAPSULE BY ity of hr capsule 00:00: MOUTH [place] 00 EVERY DAY Medical IN THE Branch MORNING TAMSULOSIN 3-0 Yes TAKE 1 Un bhumi 0.4 mg 24 2-20 CAPSULE BY ity of hr capsule 00:00: MOUTH [place] 00 EVERY DAY Medical IN THE Branch MORNING TAMSULOSIN 3-0 Yes TAKE 1 Un bhumi 0.4 mg 24 2-20 CAPSULE BY ity of hr capsule 00:00: MOUTH [place] 00 EVERY DAY Medical IN THE Branch MORNING TAMSULOSIN 3-0 Yes TAKE 1 Un bhumi 0.4 mg 24 2-20 CAPSULE BY ity of hr capsule 00:00: MOUTH [place] 00 EVERY DAY Medical IN THE [place] MORNING TAMSULOSIN 2022-0 Yes TAKE 1 Un bhumi 0.4 mg 24 2-20 CAPSULE BY ity of hr capsule 00:00: MOUTH [place] 00 EVERY DAY Medical IN THE [place] MORNING TAMSULOSIN 3-0 Yes [id number] TAKE 1 Un bhumi 0.4 mg 24 2-20 CAPSULE BY ity of hr capsule 00:00: MOUTH [place] 00 EVERY DAY Medical IN THE [place] MORNING TAMSULOSIN 2022-0 Yes TAKE 1 Un bhumi 0.4 mg 24 2-20 CAPSULE BY ity of hr capsule 00:00: MOUTH [place] 00 EVERY DAY Medical IN THE [place] MORNING TAMSULOSIN 2022-0 Yes TAKE 1 Un bhumi 0.4 mg 24 2-20 CAPSULE BY ity of hr capsule 00:00: MOUTH [place] 00 EVERY DAY Medical IN THE [place] MORNING TAMSULOSIN 3-0 Yes TAKE 1 Un bhuim 0.4 mg 24 2-20 CAPSULE BY ity of hr capsule 00:00: MOUTH [place] 00 EVERY DAY Medical IN THE [place] MORNING TAMSULOSIN 3-0 Yes TAKE 1 Un bhumi 0.4 mg 24 2-20 CAPSULE BY ity of hr capsule 00:00: MOUTH [place] 00 EVERY DAY Medical IN THE [place] MORNING TAMSULOSIN 3-0 Yes TAKE 1 Un bhumi 0.4 mg 24 2-20 CAPSULE BY ity of hr capsule 00:00: MOUTH [place] 00 EVERY DAY Medical IN THE [place] MORNING TAMSULOSIN 3-0 Yes TAKE 1 Un bhumi 0.4 mg 24 2-20 CAPSULE BY ity of hr capsule 00:00: MOUTH [place] 00 EVERY DAY Medical IN THE [place] MORNING TAMSULOSIN 3-0 Yes TAKE 1 Un bhumi 0.4 mg 24 2-20 CAPSULE BY ity of hr capsule 00:00: MOUTH [place] 00 EVERY DAY Medical IN THE [place] MORNING TAMSULOSIN 3-0 Yes TAKE 1 Un bhumi 0.4 mg 24 2-20 CAPSULE BY ity of hr capsule 00:00: MOUTH [place] 00 EVERY DAY Medical IN THE [place] MORNING TAMSULOSIN 2022-0 3- No [id number] TAKE 1 U nivers 0.4 mg 24 2-20 03-20 CAPSULE BY ity of hr capsule 00:00: 00:00 MOUTH [place] 00 :00 EVERY DAY Medical IN THE Branch MORNING FUROSEMIDE 3-0 Yes [id number] TAKE 1 [facility] 20 mg 2-01 TABLET BY ity of tablet 00:00: MOUTH [place] 00 EVERY DAY Medical Branch FUROSEMIDE 2023-0 Yes [id number] TAKE 1 [facility] 20 mg 2-01 TABLET BY ity of tablet 00:00: MOUTH [place] 00 EVERY DAY Medical Branch FUROSEMIDE 2023-0 Yes [id number] TAKE 1 [facility] 20 mg 2-01 TABLET BY ity of tablet 00:00: MOUTH [place] 00 EVERY DAY Medical Branch FUROSEMIDE 2023-0 Yes [id number] TAKE 1 [facility] 20 mg 2-01 TABLET BY ity of tablet 00:00: MOUTH [place] 00 EVERY DAY Medical Branch FUROSEMIDE 2023-0 Yes [id number] TAKE 1 [facility] 20 mg 2-01 TABLET BY ity of tablet 00:00: MOUTH [place] 00 EVERY DAY Medical Branch FUROSEMIDE 2023-0 Yes [id number] TAKE 1 [facility] 20 mg 2-01 TABLET BY ity of tablet 00:00: MOUTH [place] 00 EVERY DAY Medical Branch FUROSEMIDE 2023-0 Yes [id number] TAKE 1 [facility] 20 mg 2-01 TABLET BY ity of tablet 00:00: MOUTH [place] 00 EVERY DAY Medical Branch FUROSEMIDE 2023-0 Yes [id number] TAKE 1 [facility] 20 mg 2-01 TABLET BY ity of tablet 00:00: MOUTH [place] 00 EVERY DAY Medical Branch FUROSEMIDE 2023-0 Yes [id number] TAKE 1 [facility] 20 mg 2-01 TABLET BY ity of tablet 00:00: MOUTH [place] 00 EVERY DAY Medical Branch FUROSEMIDE 2023-0 Yes [id number] TAKE 1 [facility] 20 mg 2-01 TABLET BY ity of tablet 00:00: MOUTH [place] 00 EVERY DAY Medical Branch FUROSEMIDE 2023-0 Yes [id number] TAKE 1 [facility] 20 mg 2-01 TABLET BY ity of tablet 00:00: MOUTH [place] 00 EVERY DAY Medical Branch FUROSEMIDE 2023-0 Yes [id number] TAKE 1 [facility] 20 mg 2-01 TABLET BY ity of tablet 00:00: MOUTH [place] 00 EVERY DAY Medical Branch FUROSEMIDE 2023-0 Yes [id number] TAKE 1 [facility] 20 mg 2-01 TABLET BY ity of tablet 00:00: MOUTH [place] 00 EVERY DAY Medical Branch FUROSEMIDE 2023-0 Yes [id number] TAKE 1 [facility] 20 mg 2-01 TABLET BY ity of tablet 00:00: MOUTH [place] 00 EVERY DAY Medical Branch FUROSEMIDE 2023-0 Yes [id number] TAKE 1 [facility] 20 mg 2-01 TABLET BY ity of tablet 00:00: MOUTH [place] 00 EVERY DAY Medical Branch FUROSEMIDE 2023-0 Yes [id number] TAKE 1 [facility] 20 mg 2-01 TABLET BY ity of tablet 00:00: MOUTH [place] 00 EVERY DAY Medical Branch FUROSEMIDE 2023-0 Yes [id number] TAKE 1 [facility] 20 mg 2-01 TABLET BY ity of tablet 00:00: MOUTH [place] 00 EVERY DAY Medical Branch FUROSEMIDE 2023-0 Yes [id number] TAKE 1 [facility] 20 mg 2-01 TABLET BY ity of tablet 00:00: MOUTH [place] 00 EVERY DAY Medical Branch FUROSEMIDE 2023-0 Yes [id number] TAKE 1 [facility] 20 mg 2-01 TABLET BY ity of tablet 00:00: MOUTH [place] 00 EVERY DAY Medical Branch FUROSEMIDE 2023-0 Yes [id number] TAKE 1 [facility] 20 mg 2-01 TABLET BY ity of tablet 00:00: MOUTH [place] 00 EVERY DAY Medical Branch FUROSEMIDE 2023-0 Yes [id number] TAKE 1 [facility] 20 mg 2-01 TABLET BY ity of tablet 00:00: MOUTH [place] 00 EVERY DAY Medical Branch FUROSEMIDE 2023-0 2023- No [id number] TAKE 1 [facility] 20 mg 2-01 03-20 TABLET BY ity of tablet 00:00: 00:00 MOUTH [place] 00 :00 EVERY DAY Medical Branch FUROSEMIDE 2023-0 2023- No [id number] TAKE 1 [facility] 20 mg 2-01 03-20 TABLET BY ity of tablet 00:00: 00:00 MOUTH [place] 00 :00 EVERY DAY Medical Branch FUROSEMIDE 2023-0 2023- No [id number] TAKE 1 [facility] 20 mg 2-01 03-20 TABLET BY ity of tablet 00:00: 00:00 MOUTH [place] 00 :00 EVERY DAY Medical Branch FUROSEMIDE 2023-0 2023- No [id number] TAKE 1 [facility] 20 mg 2-01 03-20 TABLET BY ity of tablet 00:00: 00:00 MOUTH [place] 00 :00 EVERY DAY Medical Branch TAMSULOSIN 2023-0 Yes [id number] TAKE 1 Un bhumi 0.4 mg 24 1-23 CAPSULE BY ity of hr capsule 00:00: MOUTH [place] 00 EVERY Medical MORNING Branch TAMSULOSIN 2023-0 Yes TAKE 1 Un [facility]humi 0.4 mg 24 1-23 CAPSULE BY ity of hr capsule 00:00: MOUTH [place] 00 EVERY Medical MORNING Branch TAMSULOSIN 2023-0 Yes TAKE 1 Un [facility]hum[facility] 0.4 mg 24 1-23 CAPSULE BY ity of hr capsule 00:00: MOUTH [place] 00 EVERY Medical MORNING Branch TAMSULOSIN 2023-0 Yes TAKE 1 Un [facility]hum[facility] 0.4 mg 24 1-23 CAPSULE BY ity of hr capsule 00:00: MOUTH [place] 00 EVERY Medical MORNING Branch TAMSULOSIN 3-0 Yes TAKE 1 Un [facility]humi 0.4 mg 24 1-23 CAPSULE BY ity of hr capsule 00:00: MOUTH [place] 00 EVERY Medical MORNING Branch TAMSULOSIN 2023-0 2023- No TAKE 1 U nivers 0.4 mg 24 1-23 02-20 CAPSULE BY ity of hr capsule 00:00: 00:00 MOUTH [place] 00 :00 EVERY Medical MORNING Branch clopidogreL 2023-0 Yes [id number] 75mg Take 1 [facility] 75 mg 1-17 tablet by ity of tablet 00:00: mouth in [place] 00 the Medical morning. Branch clopidogreL 3-0 Yes [id number] 75mg Take 1 [facility] 75 mg 1-17 tablet by ity of tablet 00:00: mouth in [place] 00 the Medical morning. Branch clopidogreL 2023-0 Yes [id number] 75mg Take 1 [facility] 75 mg 1-17 tablet by ity of tablet 00:00: mouth in [place] 00 the Medical morning. Branch clopidogreL 2023-0 Yes [id number] 75mg Take 1 [facility] 75 mg 1-17 tablet by ity of tablet 00:00: mouth in [place] 00 the Medical morning. Branch clopidogreL 2023-0 Yes [id number] 75mg Take 1 [facility] 75 mg 1-17 tablet by ity of tablet 00:00: mouth in [place] 00 the Medical morning. Branch clopidogreL 2023-0 Yes [id number] 75mg Take 1 [facility] 75 mg 1-17 tablet by ity of tablet 00:00: mouth in [place] 00 the Medical morning. Branch clopidogreL 2023-0 Yes [id number] 75mg Take 1 [facility] 75 mg 1-17 tablet by ity of tablet 00:00: mouth in [place] 00 the Medical morning. Branch clopidogreL 2023-0 Yes [id number] 75mg Take 1 [facility] 75 mg 1-17 tablet by ity of tablet 00:00: mouth in [place] 00 the Medical morning. Branch clopidogreL 2023-0 Yes [id number] 75mg Take 1 [facility] 75 mg 1-17 tablet by ity of tablet 00:00: mouth in [place] 00 the Medical morning. Branch clopidogreL 2023-0 Yes [id number] 75mg Take 1 [facility] 75 mg 1-17 tablet by ity of tablet 00:00: mouth in [place] 00 the Medical morning. Branch clopidogreL 2023-0 Yes [id number] 75mg Take 1 [facility] 75 mg 1-17 tablet by ity of tablet 00:00: mouth in [place] 00 the Medical morning. Branch clopidogreL 2023-0 Yes [id number] 75mg Take 1 [facility] 75 mg 1-17 tablet by ity of tablet 00:00: mouth in [place] 00 the Medical morning. Branch clopidogreL 2023-0 Yes [id number] 75mg Take 1 [facility] 75 mg 1-17 tablet by ity of tablet 00:00: mouth in [place] 00 the Medical morning. Branch clopidogreL 2023-0 Yes [id number] 75mg Take 1 [facility] 75 mg 1-17 tablet by ity of tablet 00:00: mouth in [place] 00 the Medical morning. Branch clopidogreL 2023-0 Yes [id number] 75mg Take 1 [facility] 75 mg 1-17 tablet by ity of tablet 00:00: mouth in [place] 00 the Medical morning. Branch clopidogreL 2023-0 Yes [id number] 75mg Take 1 [facility] 75 mg 1-17 tablet by ity of tablet 00:00: mouth in [place] 00 the Medical morning. Branch clopidogreL 2023-0 Yes [id number] 75mg Take 1 [facility] 75 mg 1-17 tablet by ity of tablet 00:00: mouth in [place] 00 the Medical morning. Branch clopidogreL 2023-0 Yes [id number] 75mg Take 1 [facility] 75 mg 1-17 tablet by ity of tablet 00:00: mouth in [place] 00 the Medical morning. Branch clopidogreL 2023-0 Yes [id number] 75mg Take 1 [facility] 75 mg 1-17 tablet by ity of tablet 00:00: mouth in [place] 00 the Medical morning. Branch clopidogreL 2023-0 Yes [id number] 75mg Take 1 [facility] 75 mg 1-17 tablet by ity of tablet 00:00: mouth in [place] 00 the Medical morning. Branch clopidogreL 3-0 Yes [id number] 75mg Take 1 [facility] 75 mg 1-17 tablet by ity of tablet 00:00: mouth in [place] 00 the Medical morning. Branch clopidogreL 2022-0 Yes [id number] 75mg Take 1 [facility] 75 mg 1-17 tablet by ity of tablet 00:00: mouth in [place] 00 the Medical morning. Branch clopidogreL 2022-0 Yes [id number] 75mg Take 1 [facility] 75 mg 1-17 tablet by ity of tablet 00:00: mouth in [place] 00 the Medical morning. Branch clopidogreL 2022-0 3- No [id number] 75mg Take 1 [facility] 75 mg 1-17 03-20 tablet by ity of tablet 00:00: 00:00 mouth in [place] 00 :00 the Medical morning. Branch clopidogreL 2022-0 3- No [id number] 75mg Take 1 [facility] 75 mg 1-17 03-20 tablet by ity of tablet 00:00: 00:00 mouth in [place] 00 :00 the Medical morning. Branch clopidogreL 2022-0 3- No [id number] 75mg Take 1 [facility] 75 mg 1-17 03-20 tablet by ity of tablet 00:00: 00:00 mouth in [place] 00 :00 the Medical morning. Branch clopidogreL 2022-0 2022- No [id number] 75mg Take 1 [facility] 75 mg 1-17 03-20 tablet by ity of tablet 00:00: 00:00 mouth in [place] 00 :00 the [facility] [id number] TA[facility] 1 [facility] 10 mEq CR 2-28 TABLET BY ity o f tablet 00:00: MOUTH [place] 00 EVERY DAY Medical [facility] Yes [id number] TAKE 1 [facility] 10 mEq CR 2-28 TABLET BY ity o f tablet 00:00: MOUTH [place] 00 EVERY DAY Medical [facility]-02 Yes [id number] TAKE 1 [facility] 10 mEq CR 2-28 TABLET BY ity o f tablet 00:00: MOUTH [place] 00 EVERY DAY Medical [facility] 2021-02 Yes [id number] TAKE 1 [facility] 10 mEq CR 2-28 TABLET BY ity o f tablet 00:00: MOUTH [place] 00 EVERY DAY Medical [facility] 10 2021-02 Yes [id number] TAKE 1 Univers 10 mEq CR 2-28 TABLET BY ity o f tablet 00:00: MOUTH [place] 00 DAY Medical Branch [facility] 10 2021-02 Yes [id number] TAKE 1 [facility] 10 mEq CR 2-28 TABLET BY ity o f tablet 00:00: MOUTH [place] 00 DAY [facility] 10 2021-02 Yes [id number] TAKE 1 [facility] 10 mEq CR 2-28 TABLET BY ity o f tablet 00:00: MOUTH [place] 00 DAY [facility] 10 2021-02 Yes [id number] TAKE 1 [facility] 10 mEq CR 2-28 TABLET BY ity o f tablet 00:00: MOUTH [place] 00 DAY [facility] 10 2021-02 Yes [id number] TAKE 1 [facility] 10 mEq CR 2-28 TABLET BY ity o f tablet 00:00: MOUTH [place] 00 DAY [facility] 10 2021-02 Yes [id number] TAKE 1 [facility] 10 mEq CR 2-28 TABLET BY ity o f tablet 00:00: MOUTH [place] 00 DAY [facility] 10 2021-02 Yes [id number] TAKE 1 [facility] 10 mEq CR 2-28 TABLET BY ity o f tablet 00:00: MOUTH [place] 00 DAY [facility] 10 2021-02 Yes [id number] TAKE 1 [facility] 10 mEq CR 2-28 TABLET BY ity o f tablet 00:00: MOUTH [place] 00 DAY [facility] 10 2021-02 Yes [id number] TAKE 1 [facility] 10 mEq CR 2-28 TABLET BY ity o f tablet 00:00: MOUTH [place] 00 DAY Medical [facility] 10 2021-02 Yes [id number] TAKE 1 [facility] 10 mEq CR 2-28 TABLET BY ity o f tablet 00:00: MOUTH [place] 00 DAY Medical [facility] 10 2021-02 Yes [id number] TAKE 1 [facility] 10 mEq CR 2-28 TABLET BY ity o f tablet 00:00: MOUTH [place] 00 DAY Medical [facility] 10 2021-02 Yes [id number] TAKE 1 [facility] 10 mEq CR 2-28 TABLET BY ity o f tablet 00:00: MOUTH [place] 00 DAY Medical [facility] 10 2021-02 Yes [id number] TAKE 1 [facility] 10 mEq CR 2-28 TABLET BY ity o f tablet 00:00: MOUTH [place] 00 EVERY DAY Medical Branch [facility] 10 2021-02 Yes [id number] TAKE 1 [facility] 10 mEq CR 2-28 TABLET BY ity o f tablet 00:00: MOUTH [place] 00 EVERY DAY Medical Branch [facility] 10 2021-02 Yes [id number] TAKE 1 [facility] 10 mEq CR 2-28 TABLET BY ity o f tablet 00:00: MOUTH [place] 00 EVERY DAY Medical Branch [facility] 10 2021-02 Yes [id number] TAKE 1 [facility] 10 mEq CR 2-28 TABLET BY ity o f tablet 00:00: MOUTH [place] 00 EVERY DAY Medical [place] [facility] 10 2021-02 Yes [id number] TAKE 1 [facility] 10 mEq CR 2-28 TABLET BY ity o f tablet 00:00: MOUTH [place] 00 EVERY DAY [facility] 10 2021-02 Yes [id number] TAKE 1 [facility] 10 mEq CR 2-28 TABLET BY ity o f tablet 00:00: MOUTH [place] 00 DAY [facility] Branch [facility] 10 2021-02 Yes [id number] TAKE 1 [facility] 10 mEq CR 2-28 TABLET BY ity o f tablet 00:00: MOUTH [place] 00 EVERY DAY [facility] Branch [facility] 10 2021-02 Yes [id number] TAKE 1 [facility] 10 mEq CR 2-28 TABLET BY ity o f tablet 00:00: MOUTH [place] 00 EVERY DAY [facility] Branch [facility] 10 2021-02 Yes [id number] TAKE 1 [facility] 10 mEq CR 2-28 TABLET BY ity o f tablet 00:00: MOUTH [place] 00 EVERY DAY Medical Branch [facility] 10 2021-02 Yes [id number] TAKE 1 [facility] 10 mEq CR 2-28 TABLET BY ity o f tablet 00:00: MOUTH [place] 00 EVERY DAY Medical [place] [facility] 10 2021-02 Yes [id number] TAKE 1 [facility] 10 mEq CR 2-28 TABLET BY ity o f tablet 00:00: MOUTH [place] 00 EVERY DAY Medical [facility] 10 2021-02 Yes [id number] TAKE 1 [facility] 10 mEq CR 2-28 TABLET BY ity o f tablet 00:00: MOUTH [place] 00 EVERY DAY Medical [facility] 10 2021-02 Yes [id number] TAKE 1 [facility] 10 mEq CR 2-28 TABLET BY ity o f tablet 00:00: MOUTH [place] 00 EVERY DAY [facility] 10 2021-02 Yes [id number] TAKE 1 [facility] 10 mEq CR 2-28 TABLET BY ity o f tablet 00:00: MOUTH [place] 00 DAY [facility] 10 2021-02 Yes [id number] TAKE 1 [facility] 10 mEq CR 2-28 TABLET BY ity o f tablet 00:00: MOUTH [place] DAY [facility] 10 2021-02 Yes [id number] TAKE 1 [facility] 10 mEq CR 2-28 TABLET BY ity o f tablet 00:00: MOUTH [place] 00 DAY [facility] 10 2021-02 Yes [id number] TAKE 1 [facility] 10 mEq CR 2-28 TABLET BY ity o f tablet 00:00: MOUTH [place] 00 DAY [facility] 10 2021-02 Yes [id number] TAKE 1 [facility] 10 mEq CR 2-28 TABLET BY ity o f tablet 00:00: MOUTH [place] 00 DAY [facility] 10 2021-02 Yes [id number] TAKE 1 [facility] 10 mEq CR 2-28 TABLET BY ity o f tablet 00:00: MOUTH [place] 00 DAY [facility] 10 2021-02 Yes [id number] TAKE 1 [facility] 10 mEq CR 2-28 TABLET BY ity o f tablet 00:00: MOUTH [place] 00 DAY [facility] 10 2021-02 Yes [id number] TAKE 1 [facility] 10 mEq CR 2-28 TABLET BY ity o f tablet 00:00: MOUTH [place] 00 DAY [facility] 10 2021-02 Yes [id number] TAKE 1 [facility] 10 mEq CR 2-28 TABLET BY ity o f tablet 00:00: MOUTH [place] 00 DAY [facility] 10 2021-02 Yes [id number] TAKE 1 [facility] 10 mEq CR 2-28 TABLET BY ity o f tablet 00:00: MOUTH [place] 00 DAY [facility] 10 2021-02 Yes [id number] TAKE 1 [facility] 10 mEq CR 2-28 TABLET BY ity o f tablet 00:00: MOUTH [place] 00 DAY [facility] 10 2021-02 Yes [id number] TAKE 1 [facility] 10 mEq CR 2-28 TABLET BY ity o f tablet 00:00: MOUTH [place] 00 EVERY DAY [facility]02 Yes [id number] TAKE 1 [facility] 10 mEq CR 2-28 TABLET BY ity o f tablet 00:00: MOUTH [place] 00 EVERY DAY Medical Branch [facility] 10 2021-02 Yes [id number] TAKE 1 [facility] 10 mEq CR 2-28 TABLET BY ity o f tablet 00:00: MOUTH [place] DAY [facility] 10 2021-02 Yes [id number] TAKE 1 [facility] 10 mEq CR 2-28 TABLET BY ity o f tablet 00:00: MOUTH [place] 00 EVERY DAY [facility] [facility] 10 2021-02 Yes [id number] TAKE 1 [facility] 10 mEq CR 2-28 TABLET BY ity o f tablet 00:00: MOUTH [place] 00 DAY [facility] 10 2021-02 Yes [id number] TAKE 1 [facility] 10 mEq CR 2-28 TABLET BY ity o f tablet 00:00: MOUTH [place] DAY [facility] 10 2021-02 Yes [id number] TAKE 1 [facility] 10 mEq CR 2-28 TABLET BY ity o f tablet 00:00: MOUTH [place] 00 DAY [facility] 10 2021-02 Yes [id number] TAKE 1 [facility] 10 mEq CR 2-28 TABLET BY ity o f tablet 00:00: MOUTH [place] 00 DAY [facility] 10 2021-02 Yes [id number] TAKE 1 [facility] 10 mEq CR 2-28 TABLET BY ity o f tablet 00:00: MOUTH [place] 00 EVERY DAY [facility] 10 2021-02 Yes [id number] TAKE 1 [facility] 10 mEq CR 2-28 TABLET BY ity o f tablet 00:00: MOUTH [place] 00 EVERY DAY Medical [facility] 10 2021-02 Yes [id number] TAKE 1 [facility] 10 mEq CR 2-28 TABLET BY ity o f tablet 00:00: MOUTH [place] 00 EVERY DAY Medical [facility] 10 2021-02 Yes [id number] TAKE 1 [facility] 10 mEq CR 2-28 TABLET BY ity o f tablet 00:00: MOUTH [place] 00 EVERY DAY Medical [facility] 10 2021-02 Yes [id number] TAKE 1 [facility] 10 mEq CR 2-28 TABLET BY ity o f tablet 00:00: MOUTH [place] 00 EVERY DAY [facility] 10 2021-02 Yes [id number] TAKE 1 [facility] 10 mEq CR 2-28 TABLET BY ity o f tablet 00:00: MOUTH [place] 00 EVERY DAY Medical [facility] 10 2021-02 Yes [id number] TAKE 1 [facility] 10 mEq CR 2-28 TABLET BY ity o f tablet 00:00: MOUTH [place] EVERY DAY [facility] 10 2021-02 Yes [id number] TAKE 1 [facility] 10 mEq CR 2-28 TABLET BY ity o f tablet 00:00: MOUTH [place] 00 EVERY DAY [facility] 10 2021-02 Yes [id number] TAKE 1 [facility] 10 mEq CR 2-28 TABLET BY ity o f tablet 00:00: MOUTH [place] 00 DAY [facility] 10 2021-02 Yes [id number] TAKE 1 [facility] 10 mEq CR 2-28 TABLET BY ity o f tablet 00:00: MOUTH [place] DAY [facility] 10 2021-02 Yes [id number] TAKE 1 [facility] 10 mEq CR 2-28 TABLET BY ity o f tablet 00:00: MOUTH [place] 00 DAY [facility] 10 2021-02 Yes [id number] TAKE 1 [facility] 10 mEq CR 2-28 TABLET BY ity o f tablet 00:00: MOUTH [place] 00 DAY [facility] 10 2021-02 Yes [id number] TAKE 1 [facility] 10 mEq CR 2-28 TABLET BY ity o f tablet 00:00: MOUTH [place] 00 DAY [facility] 10 2021-02 Yes [id number] TAKE 1 [facility] 10 mEq CR 2-28 TABLET BY ity o f tablet 00:00: MOUTH [place] 00 EVERY DAY [facility] 10 2021-02 Yes [id number] TAKE 1 [facility] 10 mEq CR 2-28 TABLET BY ity o f tablet 00:00: MOUTH [place] 00 DAY [facility] 10 2021-02 Yes [id number] TAKE 1 [facility] 10 mEq CR 2-28 TABLET BY ity o f tablet 00:00: MOUTH [place] 00 EVERY DAY [facility] 10 2021-02 Yes [id number] TAKE 1 [facility] 10 mEq CR 2-28 TABLET BY ity o f tablet 00:00: MOUTH [place] 00 EVERY DAY [facility] 10 2021-02 Yes [id number] TAKE 1 [facility] 10 mEq CR 2-28 TABLET BY ity o f tablet 00:00: MOUTH [place] 00 DAY Medical Branch [facility] 10 2021-02 Yes [id number] TAKE 1 [facility] 10 mEq CR 2-28 TABLET BY ity o f tablet 00:00: MOUTH [place] 00 DAY [facility] 10 2021-02 Yes [id number] TAKE 1 [facility] 10 mEq CR 2-28 TABLET BY ity o f tablet 00:00: MOUTH [place] 00 DAY [facility] 10 2021-02 Yes [id number] TAKE 1 [facility] 10 mEq CR 2-28 TABLET BY ity o f tablet 00:00: MOUTH [place] 00 DAY [facility] 10 2021-02 Yes [id number] TAKE 1 [facility] 10 mEq CR 2-28 TABLET BY ity o f tablet 00:00: MOUTH [place] 00 DAY [facility] 10 2021-02 Yes [id number] TAKE 1 [facility] 10 mEq CR 2-28 TABLET BY ity o f tablet 00:00: MOUTH [place] 00 DAY [facility] 10 2021-02 Yes [id number] TAKE 1 [facility] 10 mEq CR 2-28 TABLET BY ity o f tablet 00:00: MOUTH [place] 00 DAY [facility] 10 2021-02 Yes [id number] TAKE 1 [facility] 10 mEq CR 2-28 TABLET BY ity o f tablet 00:00: MOUTH [place] 00 DAY [facility] 10 2021-02 Yes [id number] TAKE 1 [facility] 10 mEq CR 2-28 TABLET BY ity o f tablet 00:00: MOUTH [place] 00 DAY Medical Branch [facility] 10 2021-02 Yes [id number] TAKE 1 [facility] 10 mEq CR 2-28 TABLET BY ity o f tablet 00:00: MOUTH [place] 00 DAY Medical [facility] 10 2021-02 Yes [id number] TAKE 1 [facility] 10 mEq CR 2-28 TABLET BY ity o f tablet 00:00: MOUTH [place] 00 DAY [facility] 10 2021-02 Yes [id number] TAKE 1 [facility] 10 mEq CR 2-28 TABLET BY ity o f tablet 00:00: MOUTH [place] 00 DAY Medical [facility] 10 2021-02 Yes [id number] TAKE 1 [facility] 10 mEq CR 2-28 TABLET BY ity o f tablet 00:00: MOUTH [place] 00 EVERY DAY Medical Branch [facility] 10 2021-02 Yes [id number] TAKE 1 [facility] 10 mEq CR 2-28 TABLET BY ity o f tablet 00:00: MOUTH [place] 00 EVERY DAY Medical Branch [facility] 10 2021-02 Yes [id number] TAKE 1 [facility] 10 mEq CR 2-28 TABLET BY ity o f tablet 00:00: MOUTH [place] 00 EVERY DAY Medical Branch [facility] 10 2021-02 Yes [id number] TAKE 1 [facility] 10 mEq CR 2-28 TABLET BY ity o f tablet 00:00: MOUTH [place] 00 EVERY DAY Medical Branch [facility] 10 2021-02 Yes [id number] TAKE 1 [facility] 10 mEq CR 2-28 TABLET BY ity o f tablet 00:00: MOUTH [place] 00 EVERY DAY Medical Branch [facility] 10 2021-02 Yes [id number] TAKE 1 [facility] 10 mEq CR 2-28 TABLET BY ity o f tablet 00:00: MOUTH [place] 00 EVERY DAY Medical Branch [facility] 10 2021-02- No [id number] TAKE 1 [facility] 10 mEq CR 2-28 05-22 TABLET BY ity of tablet 00:00: 00:00 MOUTH [place] 00 :00 EVERY DAY Medical Branch TAMSULOSIN 2021-02 Yes TAKE 1 Un bhumi 0.4 mg 24 2-27 CAPSULE BY ity of hr capsule 00:00: MOUTH [place] 00 EVERY Medical MORNING Branch TAMSULOSIN 2021-02 Yes TAKE 1 Un [facility] 0.4 mg 24 2-27 CAPSULE BY ity of hr capsule 00:00: MOUTH [place] 00 EVERY Medical MORNING Branch TAMSULOSIN 2021-02 Yes TAKE 1 Un [facility] 0.4 mg 24 2-27 CAPSULE BY ity of hr capsule 00:00: MOUTH [place] EVERY Medical MORNING Branch TAMSULOSIN 2021-02 Yes TAKE 1 Un [facility] 0.4 mg 24 2-27 CAPSULE BY ity of hr capsule 00:00: MOUTH [place] 00 EVERY Medical MORNING Branch TAMSULOSIN 2021-02 Yes TAKE 1 Un [facility] 0.4 mg 24 2-27 CAPSULE BY ity of hr capsule 00:00: MOUTH [place] 00 EVERY Medical MORNING Branch TAMSULOSIN 2021-02 Yes TAKE 1 Un [facility] 0.4 mg 24 2-27 CAPSULE BY ity of hr capsule 00:00: MOUTH [place] 00 EVERY Medical MORNING Branch TAMSULOSIN 2021-2022- No TAKE 1 U nivers 0.4 mg 24 2-27 -23 CAPSULE BY ity of hr capsule 00:00: 00:00 MOUTH [place] 00 :00 EVERY Medical MORNING Branch oxybutynin 2021-2021- No 5mg Take 5 mg U nivers XL 5 mg 24 1-21 11-21 by mouth ity of hr tablet 10:29: 00:00 in the [place] 33 :00 morning. Medical Branch oxybutynin 2021-2021- No 5mg Take 5 mg U nivers XL 5 mg 24 1-21 -21 by mouth ity of hr tablet 10:29: 00:00 in the [place] 33 :00 morning. Medical Branch tamsulosin 2021- Yes [id number] .4mg Take 1 Un [facility] 0.4 mg 24 1-21 capsule by ity of hr capsule 00:00: mouth in [place] 00 the Medical morning. Branch oxybutynin 2021-02 Yes [id number] 5mg Take 1 [facility] XL 5 mg 24 1-21 tablet by [facility] hr tablet 00:00: [place] 00 the Medical morning. Branch tamsulosin 2021- Yes [id number] .4mg Take 1 Un [facility] 0.4 mg 24 1-21 capsule by ity of hr capsule 00:00: mouth in [place] 00 the Medical morning. Branch oxybutynin 2021- Yes [id number] 5mg Take 1 [facility] XL 5 mg 24 1-21 tablet by [facility] hr tablet 00:00: [place] 00 the Medical morning. Branch tamsulosin 2021- Yes [id number] .4mg Take 1 Un [facility] 0.4 mg 24 1-21 capsule by ity of hr capsule 00:00: mouth in [place] 00 the Medical morning. Branch oxybutynin 2021- Yes [id number] 5mg Take 1 [facility] XL 5 mg 24 1-21 tablet by [facility] hr tablet 00:00: [place] 00 the Medical morning. Branch tamsulosin 2021- Yes [id number] .4mg Take 1 Un [place] 0.4 mg 24 1-21 capsule by ity of hr capsule 00:00: mouth in [place] 00 the Medical morning. Branch oxybutynin 2021-1 Yes [id number] 5mg Take 1 [facility] XL 5 mg 24 1-21 tablet by [facility] hr tablet 00:00: [place] 00 the Medical morning. Branch oxybutynin 2021-1 Yes [id number] 5mg Take 1 [facility] XL 5 mg 24 1-21 tablet by [facility] hr tablet 00:00: [place] 00 the Medical morning. Branch oxybutynin 2021-1 Yes [id number] 5mg Take 1 [facility] XL 5 mg 24 1-21 tablet by [facility]y [facility] hr tablet 00:00: [place] the Medical morning. Branch oxybutynin 2021-1 Yes [id number] 5mg Take 1 [facility] XL 5 mg 24 1-21 tablet by [facility] hr tablet 00:00: [place] the Medical morning. Branch oxybutynin 2021-1 Yes [id number] 5mg Take 1 [facility] XL 5 mg 24 1-21 tablet by [facility]y [facility] hr tablet 00:00: mouth [place] the Medical morning. Branch oxybutynin 2021-1 Yes [id number] 5mg Take 1 [facility] XL 5 mg 24 1-21 tablet by [facility] hr tablet 00:00: [place] the Medical morning. Branch oxybutynin 2021-1 Yes [id number] 5mg Take 1 [facility] XL 5 mg 24 1-21 tablet by [facility]y [facility] hr tablet 00:00: mouth [place] the Medical morning. Branch oxybutynin 2021-1 Yes [id number] 5mg Take 1 [facility] XL 5 mg 24 1-21 tablet by [facility] hr tablet 00:00: [place] 00 the Medical morning. Branch oxybutynin 2021-1 Yes [id number] 5mg Take 1 [facility] XL 5 mg 24 1-21 tablet by [facility] hr tablet 00:00: mouth [place] 00 the Medical morning. Branch oxybutynin 2021-1 Yes [id number] 5mg Take 1 [facility] XL 5 mg 24 1-21 tablet by [facility]y [facility] hr tablet 00:00: mouth [place] 00 the Medical morning. Branch oxybutynin 2021-1 Yes [id number] 5mg Take 1 [facility] XL 5 mg 24 1-21 tablet by [facility] [place] hr tablet 00:00: [place] the Medical morning. Branch oxybutynin 2021-1 Yes [id number] 5mg Take 1 [facility] XL 5 mg 24 1-21 tablet by [facility]y [facility] hr tablet 00:00: mouth [place] the Medical morning. Branch oxybutynin 2021-1 Yes [id number] 5mg Take 1 [facility] XL 5 mg 24 1-21 tablet by [facility] hr tablet 00:00: mouth [place] the Medical morning. Branch oxybutynin 2021-1 Yes [id number] 5mg Take 1 [facility] XL 5 mg 24 1-21 tablet by [facility] [place] tablet 00:00: [place] the Medical morning. Branch oxybutynin 2021-1 Yes [id number] 5mg Take 1 [facility] XL 5 mg 24 1-21 tablet by [facility] hr tablet 00:00: [place] morning. Branch oxybutynin 2021-1 Yes [id number] 5mg Take 1 [facility] XL 5 mg 24 1-21 tablet by [facility] hr tablet 00:00: [place] morning. Branch oxybutynin 2021-1 Yes [id number] 5mg Take 1 [facility] XL 5 mg 24 1-21 tablet by [facility] hr tablet 00:00: mouth [place] the Medical morning. Branch oxybutynin 2021-1 Yes [id number] 5mg Take 1 [facility] XL 5 mg 24 1-21 tablet by [facility]y of hr tablet 00:00: mouth [place] the Medical morning. Branch oxybutynin 2021-1 Yes [id number] 5mg Take 1 [facility] XL 5 mg 24 1-21 tablet by [facility]y [facility] hr tablet 00:00: mouth [place] the Medical morning. Branch oxybutynin 2-1 Yes [id number] 5mg Take 1 [facility] XL 5 mg 24 1-21 tablet by [facility] hr tablet 00:00: mouth [place] 00 the Medical morning. Branch oxybutynin 2-1 Yes [id number] 5mg Take 1 [facility] XL 5 mg 24 1-21 tablet by [facility]y [facility] hr tablet 00:00: mouth [place] 00 the Medical morning. Branch oxybutynin 2021- Yes [id number] 5mg Take 1 [facility] XL 5 mg 24 1-21 tablet by [facility]y [facility] hr tablet 00:00: mouth [place] 00 the Medical morning. Branch oxybutynin 2021-1 Yes [id number] 5mg Take 1 [facility] XL 5 mg 24 1-21 tablet by [facility] hr tablet 00:00: mouth [place] 00 the Medical morning. Branch oxybutynin 2021- Yes [id number] 5mg Take 1 [facility] XL 5 mg 24 1-21 tablet by [facility]y of hr tablet 00:00: mouth [place] 00 the Medical morning. Branch oxybutynin 2021- Yes [id number] 5mg Take 1 [facility] XL 5 mg 24 1-21 tablet by [facility] hr tablet 00:00: mouth [place] 00 the Medical morning. Branch oxybutynin 2021- Yes [id number] 5mg Take 1 [facility] XL 5 mg 24 1-21 tablet by [facility] hr tablet 00:00: mouth [place] 00 the Medical morning. Branch oxybutynin 2021- Yes [id number] 5mg Take 1 [facility] XL 5 mg 24 1-21 tablet by [facility] hr tablet 00:00: mouth [place] 00 the Medical morning. Branch oxybutynin 2021- Yes [id number] 5mg Take 1 [facility] XL 5 mg 24 1-21 tablet by [facility] hr tablet 00:00: [place] 00 the Medical morning. Branch oxybutynin 2021- Yes [id number] 5mg Take 1 [facility] XL 5 mg 24 1-21 tablet by [facility] hr tablet 00:00: mouth [place] 00 the Medical morning. Branch oxybutynin 2021-2022- No [id number] 5mg Take 1 [facility] XL 5 mg 24 1-21 03-20 tablet by ity of hr tablet 00:00: 00:00 mouth in [place] 00 :00 the Medical morning. Branch oxybutynin 2021-2022- No [id number] 5mg Take 1 [facility] XL 5 mg 24 1-21 03-20 tablet by ity of hr tablet 00:00: 00:00 mouth in [place] 00 :00 the Medical morning. Branch oxybutynin 2021-02- No [id number] 5mg Take 1 [facility] XL 5 mg 24 03-07-20 tablet by ity of hr tablet 00:00: 00:00 mouth in [place] 00 :00 the Medical morning. Branch oxybutynin 2021-02- No [id number] 5mg Take 1 [facility] XL 5 mg 24 03-0720 tablet by ity of hr tablet 00:00: 00:00 mouth in [place] 00 :00 the Medical morning. Branch tamsulosin 2021-02- No [id number] .4mg Take 1 U nivers 0.4 mg 24 03-07 capsule by ity of hr capsule 00:00: 00:00 mouth in [place] 00 :00 the Medical morning. Branch tamsulosin 2021-02- No [id number] .4mg Take 1 U nivers 0.4 mg 24 03-07 capsule by ity of hr capsule 00:00: 00:00 mouth in [place] 00 :00 the Medical morning. Branch METOPROLOL 2021-02 Yes [id number] TAKE 1 U nivers TARTRATE 25 1-16 TABLET BY ity of mg tablet 00:00: MOUTH [place] 00 TWICE A Medical DAY Branch METOPROLOL 2021-02 Yes [id number] TAKE 1 U nivers TARTRATE 25 1-16 TABLET BY ity of mg tablet 00:00: MOUTH [place] 00 TWICE A Medical DAY Branch METOPROLOL 2021-02 Yes [id number] TAKE 1 U nivers TARTRATE 25 1-16 TABLET BY ity of mg tablet 00:00: MOUTH [place] 00 TWICE A Medical DAY Branch METOPROLOL 2021-02- No [id number] TAKE 1 Univers TARTRATE 25 1-16 11-21 TABLET BY it y of mg tablet 00:00: 00:00 MOUTH [place] 00 :00 TWICE A Medical DAY Branch METOPROLOL 2021-02- No [id number] TAKE 1 Univers TARTRATE 25 1-16 11-21 TABLET BY it y of mg tablet 00:00: 00:00 MOUTH [place] 00 :00 TWICE A Medical DAY Branch tamsulosin 2021-02- No [id number] .4mg Take 1 U nivers 0.4 mg 24 02-21 capsule by ity of hr capsule 00:00: 05:59 mouth in [place] 00 :00 the Medical morning Branch for 30 days. tamsulosin 2021-02 No [id number] .4mg Take 1 U nivers 0.4 mg 24 02-21 capsule by ity of hr capsule 00:00: 05:59 mouth in [place] 00 :00 the Medical morning Branch for 30 days. tamsulosin 2021-02 No [id number] .4mg Take 1 U nivers 0.4 mg 24 02-21 capsule by ity of hr capsule 00:00: 05:59 mouth in [place] 00 :00 the Medical morning Branch for 30 days. tamsulosin 2021-02 No [id number] .4mg Take 1 U nivers 0.4 mg 24 02-21 capsule by ity of hr capsule 00:00: 05:59 mouth in [place] 00 :00 the Medical morning Branch for 30 days. tamsulosin 2021-02 No .4mg Take 1 U nivers 0.4 mg 24 02-21 capsule by ity of hr capsule 00:00: 05:59 mouth in [place] 00 :00 the Medical morning Branch for 30 days. tamsulosin 2021-02 No [id number] .4mg Take 1 U nivers 0.4 mg 24 02-21 capsule by ity of hr capsule 00:00: 05:59 mouth in [place] 00 :00 the Medical morning Branch for 30 days. tamsulosin 2021-02 No [id number] .4mg Take 1 U nivers 0.4 mg 24 02-21 capsule by ity of hr capsule 00:00: 05:59 mouth in [place] 00 :00 the Medical morning Branch for 30 days. tamsulosin 2021-02 No [id number] .4mg Take 1 U nivers 0.4 mg 24 02-21 capsule by ity of hr capsule 00:00: 00:00 mouth in [place] 00 :00 the Medical morning Branch for 30 days. tamsulosin 2021-02 No [id number] .4mg Take 1 U nivers 0.4 mg 24 1-07 11-21 capsule by ity of hr capsule 00:00: 00:00 mouth in [place] 00 :00 the Medical morning Branch for 30 days. aspirin 81 2021-02 Yes 325mg Take 325 Un bhumi mg EC 1-06 mg by ity of tablet 16:35: mouth. [address] Branch Cholecalcif 2021-02 Yes 125ug Take 125 U nivers [place]ight, 1-06 mcg by ity of Vitamin D3, 16:35: [place] 125 mcg 15 Medical (5,000 Branch unit) tablet oxybutynin 2021-02 Yes 5mg Take 5 mg Un [facility] XL 5 mg 24 1-06 by mouth ity o f hr tablet 16:35: in the [place] [address] morning. Medical Branch multivitami 2021-02 Yes 1{tbl} Take 1 Un bhumi n tablet 1-06 tablet by ity of 16:35: mouth in [place] [address] the Medical morning. Branch aspirin 81 2021-02 Yes 325mg Take 325 Un [place] mg EC 1-06 mg by ity of tablet 16:35: mouth. [place] [address] Medical Branch Cholecalcif 2021-02 Yes 125ug Take 125 U nivers [place], 1-06 mcg by ity of Vitamin D3, 16:35: mouth. [place] 125 mcg 15 Medical (5,000 Branch unit) tablet oxybutynin 2021-02 Yes 5mg Take 5 mg Un [place] XL 5 mg 24 1-06 by mouth ity o f hr tablet 16:35: in the [place] [address] morning. Medical Branch multivitami 2021-02 Yes 1{tbl} Take 1 Un bhumi n tablet 1-06 tablet by ity of 16:35: mouth in [place] [address] the Medical morning. Branch aspirin 81 2021-02 Yes 325mg Take 325 Un [facility] mg EC 1-06 mg by ity of tablet 16:35: mouth. [place] [address] Medical Branch Cholecalcif 2021-02 Yes 125ug Take 125 U nivers [place], 1-06 mcg by ity of Vitamin D3, 16:35: mouth. [place] 125 mcg 15 Medical (5,000 Branch unit) tablet oxybutynin 2021-02 Yes 5mg Take 5 mg Un [facility] XL 5 mg 24 1-06 by mouth ity o f hr tablet 16:35: in the [place] [address] morning. Medical Branch multivitami 2021-02 Yes 1{tbl} Take 1 Un bhumi n tablet 1-06 tablet by ity of 16:35: mouth in [place] [address] the Medical morning. Branch aspirin 81 2021-02 Yes 325mg Take 325 Un [place] mg EC 1-06 mg by ity of tablet 16:35: mouth. [place] [address] Medical Branch Cholecalcif 2021-02 Yes 125ug Take 125 U nivers [place], 1-06 mcg by ity of Vitamin D3, 16:35: mouth. [place] 125 mcg 15 Medical (5,000 Branch unit) tablet oxybutynin 2021-02 Yes 5mg Take 5 mg Un [place] XL 5 mg 24 1-06 by mouth ity o f hr tablet 16:35: in the [place] [address] morning. Medical Branch multivitami 2021-02 Yes 1{tbl} Take 1 Un bhumi n tablet 1-06 tablet by ity of 16:35: mouth in [place] [address] the Medical morning. Branch aspirin 81 2021-02 Yes 325mg Take 325 Un [place] mg EC 1-06 mg by ity of tablet 16:35: mouth. [place] [address] Medical Branch Cholecalcif 2021-02 Yes 125ug Take 125 U nivers [place], 1-06 mcg by ity of Vitamin D3, 16:35: mouth. [place] 125 mcg 15 Medical (5,000 Branch unit) tablet oxybutynin 2021-02 Yes 5mg Take 5 mg Un [place] XL 5 mg 24 1-06 by mouth ity o f hr tablet 16:35: in the [place] [address] morning. Medical Branch multivitami 2021-02 Yes 1{tbl} Take 1 Un bhumi n tablet 1-06 tablet by ity of 16:35: mouth in [place] [address] the Medical morning. Branch aspirin 81 2021-02 Yes 325mg Take 325 Un [place] mg EC 1-06 mg by ity of tablet 16:35: mouth. [place] [address] Medical Branch Cholecalcif 2021-02 Yes 125ug Take 125 U nivers [place], 1-06 mcg by ity of Vitamin D3, 16:35: mouth. [place] 125 mcg 15 Medical (5,000 Branch unit) tablet oxybutynin 2021-02 Yes 5mg Take 5 mg Un [place] XL 5 mg 24 1-06 by mouth ity o f hr tablet 16:35: in the [place] 15 morning. Medical Branch multivitami 2021-02 Yes 1{tbl} Take 1 Un bhumi n tablet 1-06 tablet by ity of 16:35: mouth in [place] 15 the Medical morning. Branch aspirin 81 2021-02 Yes 325mg Take 325 Un [facility] mg EC 1-06 mg by ity of tablet 16:35: mouth. [place] [address] Medical Branch Cholecalcif 2021-02 Yes 125ug Take 125 U nivers [place], 1-06 mcg by ity of Vitamin D3, 16:35: mouth. [place] 125 mcg 15 Medical (5,000 Branch unit) tablet oxybutynin 2021-02 Yes 5mg Take 5 mg Un [place] XL 5 mg 24 1-06 by mouth ity o f hr tablet 16:35: in the [place] 15 morning. Medical Branch multivitami 2021-02 Yes 1{tbl} Take 1 Un bhumi n tablet 1-06 tablet by ity of 16:35: mouth in [place] [address] the Medical morning. Branch aspirin 81 2021-02 Yes 325mg Take 325 Un [facility] mg EC 1-06 mg by ity of tablet 16:35: mouth. [place] [address] Medical Branch Cholecalcif 2021-02 Yes 125ug Take 125 U nivers [place], 1-06 mcg by ity of Vitamin D3, 16:35: mouth. [place] 125 mcg 15 Medical (5,000 Branch unit) tablet multivitami 2021-02 Yes 1{tbl} Take 1 Un bhumi n tablet 1-06 tablet by ity of 16:35: mouth in [place] 15 the Medical morning. Branch aspirin 81 2021-02 Yes 325mg Take 325 Un [place] mg EC 1-06 mg by ity of tablet 16:35: mouth. [place] [address] Medical Branch Cholecalcif 2021-02 Yes 125ug Take 125 U nivers [place], 1-06 mcg by ity of Vitamin D3, 16:35: mouth. [place] 125 mcg 15 Medical (5,000 Branch unit) tablet multivitami 2021-02 Yes 1{tbl} Take 1 Un [place] n tablet 1-06 tablet by ity of 16:35: mouth in [place] [address] the Medical morning. Branch aspirin 81 2021-02 Yes 325mg Take 325 Un [facility] mg EC 1-06 mg by ity of tablet 16:35: mouth. [place] [address] Medical Branch Cholecalcif 2021-02 Yes 125ug Take 125 U nivers [place], 1-06 mcg by ity of Vitamin D3, 16:35: mouth. [place] 125 mcg 15 Medical (5,000 Branch unit) tablet multivitami 2021-02 Yes 1{tbl} Take 1 Un [place]hum[facility] n tablet 1-06 tablet by ity of 16:35: mouth in [place] 15 the Medical morning. Branch aspirin 81 2021-02 Yes 325mg Take 325 Un [place] mg EC 1-06 mg by ity of tablet 16:35: mouth. [place] [address] Medical Branch Cholecalcif 2021-02 Yes 125ug Take 125 U nivers [place], 1-06 mcg by ity of Vitamin D3, 16:35: mouth. [place] 125 mcg 15 Medical (5,000 Branch unit) tablet multivitami 2021-02 Yes 1{tbl} Take 1 Un [place] n tablet 1-06 tablet by ity of 16:35: mouth in [place] [address] the Medical morning. Branch aspirin 81 2021-02 Yes 325mg Take 325 Un [place] mg EC 1-06 mg by ity of tablet 16:35: mouth. [place] [address] Medical Branch Cholecalcif 2021-02 Yes 125ug Take 125 U nivers [place], 1-06 mcg by ity of Vitamin D3, 16:35: [place]. [place] 125 mcg 15 Medical (5,000 Branch unit) tablet multivitami 2021-02 Yes 1{tbl} Take 1 Un [place]humi n tablet 1-06 tablet by ity of 16:35: mouth in [place] [address] the Medical morning. Branch aspirin 81 2021-02 Yes 325mg Take 325 Un [facility] mg EC 1-06 mg by ity of tablet 16:35: mouth. [place] [address] Medical Branch Cholecalcif 2021-02 Yes 125ug Take 125 U nivers [place]ight, 1-06 mcg by ity of Vitamin D3, 16:35: [place]. [place] 125 mcg 15 Medical (5,000 Branch unit) tablet multivitami 2021-02 Yes 1{tbl} Take 1 Un [facility]humi n tablet 1-06 tablet by ity of 16:35: mouth in [place] [address] the Medical morning. Branch aspirin 81 2021-02 Yes 325mg Take 325 Un [facility] mg EC 1-06 mg by ity of tablet 16:35: mouth. [place] [address] Medical Branch Cholecalcif 2021-02 Yes 125ug Take 125 U nivers [place], 1-06 mcg by ity of Vitamin D3, 16:35: [place]. [place] 125 m[place] 15 Medical (5,000 Branch unit) tablet multivitami 2021-02 Yes 1{tbl} Take 1 Un [place] n tablet 1-06 tablet by ity of 16:35: mouth in [place] [address] the Medical morning. Branch aspirin 81 2021-02 Yes 325mg Take 325 Un [facility] mg EC 1-06 mg by ity of tablet 16:35: mouth. [place] [address] Medical Branch Cholecalcif 2021-02 Yes 125ug Take 125 U nivers [place], 1-06 mcg by ity of Vitamin D3, 16:35: [place]. [place] 125 m[place] 15 Medical (5,000 Branch unit) tablet multivitami 2021-02 Yes 1{tbl} Take 1 Un [facility]hum[facility] n tablet 1-06 tablet by ity of 16:35: mouth in [place] [address] the Medical morning. Branch aspirin 81 2021-02 Yes 325mg Take 325 Un [facility] mg EC 1-06 mg by ity of tablet 16:35: mouth. [place] [address] Medical Branch Cholecalcif 2021-02 Yes 125ug Take 125 U nivers [place], 1-06 mcg by ity of Vitamin D3, 16:35: [place]. [place] 125 m[place] 15 Medical (5,000 Branch unit) tablet multivitami 2021-02 Yes 1{tbl} Take 1 Un [facility]humi n tablet 1-06 tablet by ity of 16:35: mouth in [place] [address] the Medical morning. Branch aspirin 81 2021-02 Yes 325mg Take 325 Un [facility] mg EC 1-06 mg by ity of tablet 16:35: mouth. [place] [address] Medical Branch Cholecalcif 2021-02 Yes 125ug Take 125 U nivers dwight, 1-06 mcg by ity of Vitamin D3, 16:35: [place]. [place] 125 [place] 15 Medical (5,000 Branch unit) tablet multivitami 2021-02 Yes 1{tbl} Take 1 [facility] tablet 1-06 tablet by ity of 16:35: mouth in [place] [address] the Medical morning. Branch aspirin 81 2021-02 Yes 325mg Take 325 Un [facility] mg EC 1-06 mg by ity of tablet 16:35: mouth. [place] [address] Medical Branch Cholecalcif 2021-02 Yes 125ug Take 125 U nivers dwight, 1-06 mcg by ity of Vitamin D3, 16:35: mouth. [place] 125 mcg 15 Medical (5,000 Branch unit) tablet multivitami 2021-02 Yes 1{tbl} Take 1 [facility] tablet 1-06 tablet by ity of 16:35: mouth in [place] [address] the Medical morning. Branch aspirin 81 2021-02 Yes 325mg Take 325 Un [facility] mg EC 1-06 mg by ity of tablet 16:35: mouth. [address] Branch Cholecalcif 2021-02 Yes 125ug Take 125 U nivers dwight, 1-06 mcg by ity of Vitamin D3, 16:35: mouth. [place] 125 mcg 15 Medical (5,000 Branch unit) tablet multivitami 2021-02 Yes 1{tbl} Take 1 [facility] tablet 1-06 tablet by ity of 16:35: mouth in [place] [address] the Medical morning. Branch aspirin 81 2021-02 Yes 325mg Take 325 [facility] mg EC 1-06 mg by ity of tablet 16:35: mouth. [place] [address] Medical Branch Cholecalcif 2021-02 Yes 125ug Take 125 U nivers dwight, 1-06 mcg by ity of Vitamin D3, 16:35: mouth. [place] 125 mcg 15 Medical (5,000 Branch unit) tablet multivitami 2021-02 Yes 1{tbl} Take 1 [facility] tablet 1-06 tablet by ity of 16:35: mouth in [place] [address] the Medical morning. Branch aspirin 81 2021-02 Yes 325mg Take 325 [facility] mg EC 1-06 mg by ity of tablet 16:35: mouth. [place] [address] Medical Branch Cholecalcif 2021-02 Yes 125ug Take 125 U nivers dwight, 1-06 mcg by ity of Vitamin D3, 16:35: mouth. [place] 125 mcg 15 Medical (5,000 Branch unit) tablet multivitami 2021-02 Yes 1{tbl} Take 1 [facility] tablet 1-06 tablet by ity of 16:35: mouth in [place] [address] the Medical morning. Branch aspirin 81 2021-02 Yes 325mg Take 325 [facility] mg EC 1-06 mg by ity of tablet 16:35: mouth. [place] [address] Medical Branch Cholecalcif 2021-02 Yes 125ug Take 125 U nivers [place]ight, 1-06 mcg by ity of Vitamin D3, 16:35: mouth. [place] 125 mcg 15 Medical (5,000 Branch unit) tablet multivitami 2021-02 Yes 1{tbl} Take 1 [facility] n tablet 1-06 tablet by ity of 16:35: mouth in [place] [address] the Medical morning. Branch aspirin 81 2021-02 Yes 325mg Take 325 [facility] mg EC 1-06 mg by ity of tablet 16:35: mouth. [place] [address] Medical Branch Cholecalcif 2021-02 Yes 125ug Take 125 [facility] nivers dwight, 1-06 mcg by ity of Vitamin D3, 16:35: mouth. [place] 125 mcg 15 Medical (5,000 Branch unit) tablet multivitami 2021-02 Yes 1{tbl} Take 1 [facility] n tablet 1-06 tablet by ity of 16:35: mouth in [place] [address] the Medical morning. Branch aspirin 81 2021-02 Yes 325mg Take 325 [facility] mg EC 1-06 mg by ity of tablet 16:35: mouth. [place] [address] Medical Branch Cholecalcif 2021-02 Yes 125ug Take 125 [facility] n[facility] [place]ight, 1-06 mcg by [facility] of Vitamin D3, 16:35: mouth. [place] 125 mcg 15 Medical (5,000 Branch unit) tablet multivitami 2021-02 Yes 1{tbl} Take 1 [facility] tablet 1-06 tablet by ity of 16:35: mouth in [place] [address] the Medical morning. Branch aspirin 81 2021-02 Yes 325mg Take 325 [facility] mg EC 1-06 mg by ity of tablet 16:35: mouth. [place] [address] Medical Branch Cholecalcif 2021-02 Yes 125ug Take 125 [facility] [place], 1-06 mcg by [facility] of Vitamin D3, 16:35: mouth. [place] 125 mcg 15 Medical (5,000 Branch unit) tablet multivitami 2021-02 Yes 1{tbl} Take 1 [facility] tablet 1-06 tablet by ity of 16:35: mouth in [place] [address] the Medical morning. Branch aspirin 81 2021-02 Yes 325mg Take 325 [facility] mg EC 1-06 mg by ity of tablet 16:35: mouth. [place] [address] Medical Branch Cholecalcif 2021-02 Yes 125ug Take 125 [facility] nivers [place]ight, 1-06 mcg by ity of Vitamin D3, 16:35: mouth. [place] 125 mcg 15 Medical (5,000 Branch unit) tablet multivitami 2021-02 Yes 1{tbl} Take 1 [facility] n tablet 1-06 tablet by ity of 16:35: mouth in [place] [address] the Medical morning. Branch aspirin 81 2021-02 Yes 325mg Take 325 Un [facility] mg EC 1-06 mg by ity of tablet 16:35: mouth. [address] Branch Cholecalcif 2021-02 Yes 125ug Take 125 U nivers dwight, 1-06 mcg by ity of Vitamin D3, 16:35: mouth. [place] 125 mcg 15 Medical (5,000 Branch unit) tablet multivitami 2021-02 Yes 1{tbl} Take 1 [facility] n tablet 1-06 tablet by ity of 16:35: mouth in [place] [address] the Medical morning. Branch aspirin 81 2021-02 Yes 325mg Take 325 [facility] mg EC 1-06 mg by ity of tablet 16:35: mouth. [address] Branch Cholecalcif 2021-02 Yes 125ug Take 125 U nivers dwight, 1-06 mcg by ity of Vitamin D3, 16:35: mouth. [place] 125 mcg 15 Medical (5,000 Branch unit) tablet multivitami 2021-02 Yes 1{tbl} Take 1 [facility] n tablet 1-06 tablet by ity of 16:35: mouth in [place] [address] the Medical morning. Branch aspirin 81 2021-02 Yes 325mg Take 325 [facility] mg EC 1-06 mg by ity of tablet 16:35: mouth. [place] [address] Medical Branch Cholecalcif 2021-02 Yes 125ug Take 125 [facility] n[facility] [place]ight, 1-06 mcg by ity of Vitamin D3, 16:35: mouth. [place] 125 mcg 15 Medical (5,000 Branch unit) tablet multivitami 2021-02 Yes 1{tbl} Take 1 [facility] n tablet 1-06 tablet by ity of 16:35: mouth in [place] [address] the Medical morning. Branch aspirin 81 2021-02 Yes 325mg Take 325 [facility] mg EC 1-06 mg by ity of tablet 16:35: mouth. [place] [address] Medical Branch Cholecalcif 2021-02 Yes 125ug Take 125 [facility] n[facility] [place]ight, 1-06 mcg by ity of Vitamin D3, 16:35: mouth. [place] 125 mcg 15 Medical (5,000 Branch unit) tablet multivitami 2021-02 Yes 1{tbl} Take 1 [facility] n tablet 1-06 tablet by ity of 16:35: mouth in [place] 15 the Medical morning. Branch aspirin 81 2021-02 Yes 325mg Take 325 [facility] mg EC 1-06 mg by ity of tablet 16:35: mouth. [place] [address] Medical Branch Cholecalcif 2021-02 Yes 125ug Take 125 U nivers dwight, 1-06 mcg by ity of Vitamin D3, 16:35: mouth. [place] 125 mcg 15 Medical (5,000 Branch unit) tablet multivitami 2021-02 Yes 1{tbl} Take 1 [facility] n tablet 1-06 tablet by ity of 16:35: mouth in [place] [address] the Medical morning. Branch aspirin 81 2021-02 Yes 325mg Take 325 [facility] mg EC 1-06 mg by ity of tablet 16:35: mouth. [place] [address] Medical Branch Cholecalcif 2021-02 Yes 125ug Take 125 [facility] [place]ight, 1-06 mcg by ity of Vitamin D3, 16:35: mouth. [place] 125 mcg 15 Medical (5,000 Branch unit) tablet multivitami 2021-02 Yes 1{tbl} Take 1 [facility] n tablet 1-06 tablet by ity of 16:35: mouth in [place] [address] the Medical morning. Branch aspirin 81 2021-02 Yes 325mg Take 325 [facility] mg EC 1-06 mg by ity of tablet 16:35: mouth. [place] [address] Medical Branch Cholecalcif 2021-02 Yes 125ug Take 125 [facility] [place]ight, 1-06 mcg by ity of Vitamin D3, 16:35: mouth. [place] 125 mcg 15 Medical (5,000 Branch unit) tablet multivitami 2021-02 Yes 1{tbl} Take 1 [facility] n tablet 1-06 tablet by ity of 16:35: mouth in [place] 15 the Medical morning. Branch aspirin 81 2021-02 Yes 325mg Take 325 [facility] mg EC 1-06 mg by ity of tablet 16:35: mouth. [place] [address] Medical Branch Cholecalcif 2021-02 Yes 125ug Take 125 [facility] [place]ight, 1-06 mcg by ity of Vitamin D3, 16:35: mouth. [place] 125 mcg 15 Medical (5,000 Branch unit) tablet multivitami 2021-02 Yes 1{tbl} Take 1 [facility] n tablet 1-06 tablet by ity of 16:35: mouth in [place] [address] the Medical morning. Branch aspirin 81 2021-02 Yes 325mg Take 325 [facility] mg EC 1-06 mg by ity of tablet 16:35: mouth. [place] [address] Medical Branch Cholecalcif 2021-02 Yes 125ug Take 125 U n[facility] [place]ight, 1-06 mcg by ity of Vitamin D3, 16:35: mouth. [place] 125 mcg 15 Medical (5,000 Branch unit) tablet multivitami 2021-02 Yes 1{tbl} Take 1 Un [facility] n tablet 1-06 tablet by ity of 16:35: mouth in [place] [address] the Medical morning. Branch aspirin 81 2021-02 Yes 325mg Take 325 [facility] mg EC 1-06 mg by ity of tablet 16:35: mouth. [place] [address] Medical Branch Cholecalcif 2021-02 Yes 125ug Take 125 U nivers dwight, 1-06 mcg by ity of Vitamin D3, 16:35: mouth. [place] 125 mcg 15 Medical (5,000 Branch unit) tablet multivitami 2021-02 Yes 1{tbl} Take 1 Un [facility] n tablet 1-06 tablet by ity of 16:35: mouth in [place] [address] the Medical morning. Branch aspirin 81 2021-02 Yes 325mg Take 325 Un [facility] mg EC 1-06 mg by ity of tablet 16:35: mouth. [place] [address] Medical Branch Cholecalcif 2021-02 Yes 125ug Take 125 U n[facility] dwight, 1-06 mcg by ity of Vitamin D3, 16:35: mouth. [place] 125 mcg 15 Medical (5,000 Branch unit) tablet multivitami 2021-02 Yes 1{tbl} Take 1 Un [facility] n tablet 1-06 tablet by ity of 16:35: mouth in [place] [address] the Medical morning. Branch aspirin 81 2021-02 Yes 325mg Take 325 Un [facility] mg EC 1-06 mg by ity of tablet 16:35: mouth. [address] Branch Cholecalcif 2021-02 Yes 125ug Take 125 U nivers dwight, 1-06 mcg by ity of Vitamin D3, 16:35: mouth. [place] 125 mcg 15 Medical (5,000 Branch unit) tablet multivitami 2021-02 Yes 1{tbl} Take 1 Un [facility] n tablet 1-06 tablet by ity of 16:35: mouth in [place] [address] the morning. Branch aspirin 81 2021-02 Yes 325mg Take 325 Un [facility] mg EC 1-06 mg by ity of tablet 16:35: mouth. [address] Branch Cholecalcif 2021-02 Yes 125ug Take 125 U nivers dwight, 1-06 mcg by ity of Vitamin D3, 16:35: mouth. [place] 125 mcg 15 Medical (5,000 Branch unit) tablet multivitami 2021-02 Yes 1{tbl} Take 1 Un [facility] n tablet 1-06 tablet by ity of 16:35: mouth in [place] [address] the morning. Branch aspirin 81 2021-02 Yes 325mg Take 325 Un [facility] mg EC 1-06 mg by ity of tablet 16:35: mouth. [address] Branch aspirin 81 2021-02 Yes 325mg Take 325 Un [facility] mg EC 1-06 mg by ity of tablet 16:35: mouth. [address] Branch aspirin 81 2021-02 Yes 325mg Take 325 Un [facility] mg EC 1-06 mg by ity of tablet 16:35: mouth. [address] Branch aspirin 81 2021-02 Yes 325mg Take 325 Un [facility] mg EC 1-06 mg by ity of tablet 16:35: mouth. [address] Branch aspirin 81 2021-02 Yes 325mg Take 325 Un [facility] mg EC 1-06 mg by ity of tablet 16:35: mouth. [address] Branch aspirin 81 2021-02 Yes 325mg Take 325 Un [facility] mg EC 1-06 mg by ity of tablet 16:35: mouth. [address] hydrALAZINE 2021-02- No [id number] 50mg Take 50 mg [facility] 50 mg - 11-06 by mouth ity of tablet 11:40: 00:00 daily. [place] 21 :00 Medical Branch ascorbic 2021-02- No [id number] 1000mg Take 2 [facility] acid, 02-20- tablets by ity of vitamin C, 00:00: 05:59 mouth in [place] 500 mg 00 :00 the Medical tablet morning Branch for 30 days. ascorbic 2021-02- No [id number] 1000mg Take 2 [facility] acid, 02-20- tablets by ity of vitamin C, 00:00: 05:59 mouth in [place] 500 mg 00 :00 the Medical tablet morning Branch for 30 days. ascorbic 2021-02- No [id number] 1000mg Take 2 [facility] acid, 02-20- tablets by ity of vitamin C, 00:00: 05:59 mouth in [place] 500 mg 00 :00 the Medical tablet morning Branch for 30 days. ascorbic 2021-02- No [id number] 1000mg Take 2 [facility] acid, 02-20- tablets by ity of vitamin C, 00:00: 05:59 mouth in [place] 500 mg 00 :00 the Medical tablet morning Branch for 30 days. ascorbic 2021-02- No [id number] 1000mg Take 2 [facility] acid, 02-20- tablets by ity of vitamin C, 00:00: 05:59 mouth in [place] 500 mg 00 :00 the Medical tablet morning Branch for 30 days. ascorbic 2021-02- No [id number] 1000mg Take 2 [facility] acid, 02-20- tablets by ity of vitamin C, 00:00: 05:59 mouth in [place] 500 mg 00 :00 the Medical tablet morning Branch for 30 days. ascorbic 2021-02- No [id number] 1000mg Take 2 [facility] acid, 02-20-07 tablets by ity of vitamin C, 00:00: 05:59 mouth in [place] 500 mg 00 :00 the Medical tablet morning Branch for 30 days. ascorbic 2021-02- No [id number] 1000mg Take 2 [facility] acid, 02-20-07 tablets by ity of vitamin C, 00:00: 05:59 mouth in [place] 500 mg 00 :00 the Medical tablet morning Branch for 30 days. ascorbic 2021-02- No [id number] 1000mg Take 2 [facility] acid, 02-20 12-07 tablets by ity of vitamin C, 00:00: 05:59 mouth in [place] 500 mg 00 :00 the Medical tablet morning Branch for 30 days. tamsulosin 2021-02 Yes .4mg 0.4 mg, Univ ers (FLOMAX) 1-05 Oral, ity of capsule 0.4 14:00: DAILY, [place] mg 00 First dose Medical on Sat Branch 12/20/21 at 0900, Until Discontinu ed, Routine ezetimibe 2021-02 Yes 10mg 10 mg, Univer s (ZETIA) 1-05 Oral, ity of tablet 10 14:00: DAILY, [place] mg 00 First dose Medical on [facility] Branch 12/20/21 at 0900, Until Discontinu ed, Routine clopidogreL 2021-02 Yes 75mg 75 mg, Univ ers (PLAVIX) 75 1-05 Oral, ity of mg tablet 14:00: DAILY, [place] 75 mg 00 First dose Medical on [facility] Branch 12/20/21 at 0900, Until Discontinu ed, Routine aspirin 2021-02 Yes 325mg 325 mg, Univer s E.C. 1-05 Oral, ity of (ECOTRIN) 14:00: DAILY, [place] tablet 325 00 First dose Med ical mg on [facility] Branch 12/20/21 at 0900, Until Discontinu ed, Routine oxybutynin 2021-02 Yes 5mg 5 mg, Univer s chloride 1-05 Oral, BID, ity o f (DITROPAN) 13:00: First dose [place] tablet 5 mg 00 on [facility] Medica l 12/20/21 at Branch 0800, Until Discontinu ed, Routine glimepiride 2021-02 Yes 2mg 2 mg, Unive rs (AMARYL) 1-05 Oral, QAM ity of tablet 2 mg 13:00: WITH [place] 00 BREAKFAST, Medical First dose Branch on 12/20/21 at 0800, Until Discontinu ed, Routine Sliding 2021-02 Yes Subcutaneo Univ ers Scale 1-04 us, TID ity of Insulin - 22:00: MEALS+HS, [place] as Lispro 00 First dose Medical (HumaLOG) + on Wed Branch Fsbg 12/19/21 at Testing 1700, Until Discontinu ed, Routine enoxaparin 2021-02 No 40mg 40 mg, Univ ers (LOVENOX) 02-1805 Subcutaneo ity of injection 22:00: 01:13 us, DAILY, [place] 40 mg 00 :13 First dose Medical on Wed Branch 12/19/21 at 1700, Until Discontinu ed, Routine glucagon 2021-02 Yes 1mg 1 mg, Univers (GLUCAGEN 02-18 Intramuscu ity of DIAGNOSTIC 19:23: lar, PRN, [place] KIT) 13 Starting Medical injection 1 on Wed Branch mg 12/19/21 at 1423, Until Discontinu ed, MANUEL, Blood Glucose < or = 70 mg/dL and patient is unable to swallow or has mental changes. dextrose 50 2021-02 Yes 25mL 25 mL, Univ ers % in water 02-18 Slow IV ity of (D50W) 19:23: Push, PRN, [place] injection 13 Starting Medica l 25 mL on Wed Branch 12/19/21 at 1423, Until Discontinu ed, MANUEL, Blood Glucose < or = 70 mg/dL and patient is unable to swallow or has mental status changes. traMADoL 2021-02 No 50mg 50 mg, Univer s (ULTRAM) 02-18 Oral, ity of tablet 50 19:22: 20:21 Q8HPRN, [place] mg 59 :59 Starting Medical on Wed Branch 12/19/21 at 1422, Until 12/21/21 at 1421, Routine, Pain (scale 4-6) acetaminoph 2021-02 Yes 650mg 650 mg, Un bhumi en 02-18 Oral, ity of (TYLENOL) 19:22: Q6HPRN, [place] tablet 650 56 Starting Medic al mg on Wed Branch 12/19/21 at 1422, Until Discontinu ed, Routine, Pain (scale 1-3) acetaminoph 2021-02- No 975mg 975 mg, U nivers en 02-18 Oral, ity of (TYLENOL) 18:30: 17:27 ONCE, 1 [place] tablet 975 00 :00 dose, On Medic al mg Wed Branch 12/19/21 at 1330, MANUEL furosemide 2021- Yes [id number] TAKE 1 [facility] 20 mg 1-03 TABLET BY ity of tablet 00:00: MOUTH [place] 00 EVERY DAY Medical Branch furosemide 2021- Yes [id number] TAKE 1 [facility] 20 mg 1-03 TABLET BY ity of tablet 00:00: MOUTH [place] 00 EVERY DAY Medical Branch furosemide 2021-02 Yes [id number] TAKE 1 [facility] 20 mg 1-03 TABLET BY ity of tablet 00:00: MOUTH [place] 00 EVERY DAY Medical Branch furosemide 2021- Yes [id number] TAKE 1 [facility] 20 mg 1-03 TABLET BY ity of tablet 00:00: MOUTH [place] 00 EVERY DAY Medical Branch furosemide 2021-02 Yes [id number] TAKE 1 [facility] 20 mg 1-03 TABLET BY ity of tablet 00:00: MOUTH [place] 00 EVERY DAY Medical Branch furosemide 2021-02 Yes [id number] TAKE 1 [facility] 20 mg 1-03 TABLET BY ity of tablet 00:00: MOUTH [place] 00 EVERY DAY Medical Branch furosemide 2021- Yes [id number] TAKE 1 [facility] 20 mg 1-03 TABLET BY ity of tablet 00:00: MOUTH [place] 00 EVERY DAY Medical Branch furosemide 2021- Yes [id number] TAKE 1 [facility] 20 mg 1-03 TABLET BY ity of tablet 00:00: MOUTH [place] 00 EVERY DAY Medical Branch furosemide 2021- Yes [id number] TAKE 1 [facility] 20 mg 1-03 TABLET BY ity of tablet 00:00: MOUTH [place] 00 EVERY DAY Medical Branch furosemide 2021- Yes [id number] TAKE 1 [facility] 20 mg 1-03 TABLET BY ity of tablet 00:00: MOUTH [place] 00 EVERY DAY Medical Branch furosemide 2021- Yes [id number] TAKE 1 [facility] 20 mg 1-03 TABLET BY ity of tablet 00:00: MOUTH [place] 00 EVERY DAY Medical Branch furosemide 2021- Yes [id number] TAKE 1 [facility] 20 mg 1-03 TABLET BY ity of tablet 00:00: MOUTH [place] 00 EVERY DAY Medical Branch furosemide 2021- Yes [id number] TAKE 1 [facility] 20 mg 1-03 TABLET BY ity of tablet 00:00: MOUTH [place] 00 EVERY DAY Medical Branch furosemide 2021- Yes [id number] TAKE 1 [facility] 20 mg 1-03 TABLET BY ity of tablet 00:00: MOUTH [place] 00 EVERY DAY Medical Branch furosemide 2021-02 Yes [id number] TAKE 1 [facility] 20 mg 1-03 TABLET BY ity of tablet 00:00: MOUTH [place] 00 EVERY DAY Medical Branch furosemide 2021-02 Yes [id number] TAKE 1 [facility] 20 mg 1-03 TABLET BY ity of tablet 00:00: MOUTH [place] 00 EVERY DAY Medical Branch furosemide 2021-02 Yes [id number] TAKE 1 [facility] 20 mg 1-03 TABLET BY ity of tablet 00:00: MOUTH [place] 00 EVERY DAY Medical Branch furosemide 2021-02 Yes [id number] TAKE 1 [facility] 20 mg 1-03 TABLET BY ity of tablet 00:00: MOUTH [place] 00 EVERY DAY Medical Branch furosemide 2021-02 Yes [id number] TAKE 1 [facility] 20 mg 1-03 TABLET BY ity of tablet 00:00: MOUTH [place] 00 EVERY DAY Medical Branch furosemide 2021-02- No [id number] TAKE 1 [facility] 20 mg 1-03 - TABLET BY ity of tablet 00:00: 00:00 MOUTH [place] 00 :00 EVERY DAY Medical Branch mirabegron 2021-02 Yes [id number] 25mg Take 1 Univers (MYRBETRIQ) 0-27 tablet by ity of 25 mg 00:00: mouth in [place] tablet 00 the Medical morning. Branch mirabegron 2021-02 Yes [id number] 25mg Take 1 Univers (MYRBETRIQ) 0-27 tablet by ity of 25 mg 00:00: mouth in [place] tablet 00 the Medical morning. Branch mirabegron 2021-02 Yes [id number] 25mg Take 1 Univers (MYRBETRIQ) 0-27 tablet by ity of 25 mg 00:00: mouth in [place] tablet 00 the Medical morning. Branch mirabegron 2021-02- No [id number] 25mg Take 1 Univers (MYRBETRIQ) 0-27 - tablet by it y of 25 mg 00:00: 00:00 mouth in [place] tablet 00 :00 the Medical morning. Branch amLODIPine 2021-02- No Univer s 5 mg tablet 01-05 ity of 00:00: 00:00 [place] 00 :00 Medical Branch amLODIPine 2021-02- No Univer s 5 mg tablet 01-05 ity of 00:00: 00:00 [place] 00 :00 Medical Branch METOPROLOL Yes [id number] TAKE 1 U nivers TARTRATE 25 8-15 TABLET BY ity of mg tablet 00:00: MOUTH [place] 00 TWICE A Medical DAY Branch METOPROLOL 2021-0 Yes [id number] TAKE 1 U nivers TARTRATE 25 8-15 TABLET BY ity of mg tablet 00:00: MOUTH 00 TWICE A Medical DAY Branch METOPROLOL 2021-0 Yes [id number] TAKE 1 U nivers TARTRATE 25 8-15 TABLET BY ity of mg tablet 00:00: MOUTH 00 TWICE A Medical DAY Branch METOPROLOL 2021-0 Yes [id number] TAKE 1 U nivers TARTRATE 25 8-15 TABLET BY ity of mg tablet 00:00: MOUTH 00 TWICE A Medical DAY Branch METOPROLOL 2021-0 Yes [id number] TAKE 1 U nivers TARTRATE 25 8-15 TABLET BY ity of mg tablet 00:00: MOUTH 00 TWICE A Medical DAY Branch METOPROLOL 2021-0 Yes [id number] TAKE 1 U nivers TARTRATE 25 8-15 TABLET BY ity of mg tablet 00:00: MOUTH 00 TWICE A Medical DAY Branch METOPROLOL 2021-0 Yes [id number] TAKE 1 U nivers TARTRATE 25 8-15 TABLET BY ity of mg tablet 00:00: MOUTH 00 TWICE A Medical DAY Branch METOPROLOL 0 Yes [id number] TAKE 1 U nivers TARTRATE 25 8-15 TABLET BY ity of mg tablet 00:00: MOUTH 00 TWICE A Medical DAY Branch METOPROLOL 0 2021- No [id number] TAKE 1 Univers TARTRATE 25 8-15 11-16 TABLET BY it y of mg tablet 00:00: 00:00 MOUTH [place] 00 :00 TWICE A Medical DAY Branch ezetimibe 2021-0 Yes [id number] 10mg Take 1 Un bhumi (ZETIA) 10 7-14 tablet by ity of mg tablet 00:00: mouth in [place] 00 the Medical morning. Branch ezetimibe 2021-0 Yes [id number] 10mg Take 1 Un b[facility]i (ZETIA) 10 7-14 tablet by ity of mg tablet 00:00: mouth in [place] 00 the Medical morning. Branch ezetimibe 2021-0 Yes [id number] 10mg Take 1 Un [facility]i (ZETIA) 10 7-14 tablet by ity of mg tablet 00:00: mouth in [place] 00 the Medical morning. Branch ezetimibe 2022-0 Yes [id number] 10mg Take 1 Un [facility]i (ZETIA) 10 7-14 tablet by ity of mg tablet 00:00: mouth in [place] 00 the Medical morning. Branch ezetimibe 2022-0 Yes [id number] 10mg Take 1 Un [facility]i (ZETIA) 10 7-14 tablet by ity of mg tablet 00:00: mouth in [place] 00 the Medical morning. Branch ezetimibe 2022-0 Yes [id number] 10mg Take 1 Un b[facility]i (ZETIA) 10 7-14 tablet by ity of mg tablet 00:00: mouth in [place] 00 the Medical morning. Branch ezetimibe 2022-0 Yes [id number] 10mg Take 1 Un b[facility]i (ZETIA) 10 7-14 tablet by ity of mg tablet 00:00: mouth in [place] 00 the Medical morning. Branch ezetimibe 2-0 Yes [id number] 10mg Take 1 Un bhumi (ZETIA) 10 7-14 tablet by ity of mg tablet 00:00: mouth in [place] 00 the Medical morning. Branch ezetimibe 2-0 Yes [id number] 10mg Take 1 Un b[facility]i (ZETIA) 10 7-14 tablet by ity of mg tablet 00:00: mouth in [place] 00 the Medical morning. Branch ezetimibe 2022-0 Yes [id number] 10mg Take 1 Un [facility]i (ZETIA) 10 7-14 tablet by ity of mg tablet 00:00: mouth in [place] 00 the Medical morning. Branch ezetimibe 2022-0 Yes [id number] 10mg Take 1 Un [facility]i (ZETIA) 10 7-14 tablet by ity of mg tablet 00:00: mouth in [place] 00 the Medical morning. Branch ezetimibe 2022-0 Yes [id number] 10mg Take 1 Un b[facility]i (ZETIA) 10 7-14 tablet by ity of mg tablet 00:00: mouth in [place] 00 the Medical morning. Branch ezetimibe 2022-0 Yes [id number] 10mg Take 1 Un b[facility]i (ZETIA) 10 7-14 tablet by ity of mg tablet 00:00: mouth in [place] 00 the Medical morning. Branch ezetimibe 2-0 Yes [id number] 10mg Take 1 Un b[facility]i (ZETIA) 10 7-14 tablet by ity of mg tablet 00:00: mouth in [place] 00 the Medical morning. Branch ezetimibe 2022-0 Yes [id number] 10mg Take 1 Un b[facility]i (ZETIA) 10 7-14 tablet by ity of mg tablet 00:00: mouth in [place] 00 the Medical morning. Branch ezetimibe 2022-0 Yes [id number] 10mg Take 1 Un b[facility]i (ZETIA) 10 7-14 tablet by ity of mg tablet 00:00: mouth in [place] 00 the Medical morning. Branch ezetimibe 2-0 Yes [id number] 10mg Take 1 Un [facility]i (ZETIA) 10 7-14 tablet by ity of mg tablet 00:00: mouth in [place] 00 the Medical morning. Branch ezetimibe 2-0 Yes [id number] 10mg Take 1 Un [facility]i (ZETIA) 10 7-14 tablet by ity of mg tablet 00:00: mouth in [place] 00 the Medical morning. Branch ezetimibe 2-0 Yes [id number] 10mg Take 1 Un [facility]i (ZETIA) 10 7-14 tablet by ity of mg tablet 00:00: mouth in [place] 00 the Medical morning. Branch ezetimibe 2-0 Yes [id number] 10mg Take 1 Un [facility]i (ZETIA) 10 7-14 tablet by ity of mg tablet 00:00: mouth in [place] 00 the Medical morning. Branch ezetimibe 2-0 Yes [id number] 10mg Take 1 Un b[facility]i (ZETIA) 10 7-14 tablet by ity of mg tablet 00:00: mouth in [place] 00 the Medical morning. Branch ezetimibe 2022-0 Yes [id number] 10mg Take 1 Un [facility]i (ZETIA) 10 7-14 tablet by ity of mg tablet 00:00: mouth in [place] 00 the Medical morning. Branch ezetimibe 2022-0 Yes [id number] 10mg Take 1 Un b[facility]i (ZETIA) 10 7-14 tablet by ity of mg tablet 00:00: mouth in [place] 00 the Medical morning. Branch ezetimibe 2022-0 Yes [id number] 10mg Take 1 Un [facility]i (ZETIA) 10 7-14 tablet by ity of mg tablet 00:00: mouth in [place] 00 the Medical morning. Branch ezetimibe 2-0 Yes [id number] 10mg Take 1 Un [facility]i (ZETIA) 10 7-14 tablet by ity of mg tablet 00:00: mouth in [place] 00 the Medical morning. Branch ezetimibe 2-0 Yes [id number] 10mg Take 1 Un [facility]i (ZETIA) 10 7-14 tablet by ity of mg tablet 00:00: mouth in [place] 00 the Medical morning. Branch ezetimibe 2-0 Yes [id number] 10mg Take 1 Un [facility]i (ZETIA) 10 7-14 tablet by ity of mg tablet 00:00: mouth in [place] 00 the Medical morning. Branch ezetimibe 2-0 Yes [id number] 10mg Take 1 Un [facility]i (ZETIA) 10 7-14 tablet by ity of mg tablet 00:00: mouth in [place] 00 the Medical morning. Branch ezetimibe 2-0 Yes [id number] 10mg Take 1 Un [facility]i (ZETIA) 10 7-14 tablet by ity of mg tablet 00:00: mouth in [place] 00 the Medical morning. Branch ezetimibe 2-0 Yes [id number] 10mg Take 1 Un [facility] (ZETIA) 10 7-14 tablet by ity of mg tablet 00:00: mouth in [place] 00 the Medical morning. Branch ezetimibe 2-0 Yes [id number] 10mg Take 1 Un [facility] (ZETIA) 10 7-14 tablet by ity of mg tablet 00:00: mouth in [place] 00 the Medical morning. Branch ezetimibe 2-0 Yes [id number] 10mg Take 1 [facility] (ZETIA) 10 7-14 tablet by [facility] mg tablet 00:[place]: [place] 00 the Medical morning. Branch ezetimibe 2-0 Yes [id number] 10mg Take 1 [facility] (ZETIA) 10 7-14 tablet by [facility] mg tablet 00:00: [place] 00 the Medical morning. Branch ezetimibe 2-0 Yes [id number] 10mg Take 1 [facility] (ZETIA) 10 7-14 tablet by [facility] mg tablet 00:00: [place] 00 the Medical morning. Branch ezetimibe 2-0 Yes [id number] 10mg Take 1 [facility] (ZETIA) 10 7-14 tablet by [facility] mg tablet 00:00: [place] 00 the Medical morning. Branch ezetimibe 2-0 Yes [id number] 10mg Take 1 [facility] (ZETIA) 10 7-14 tablet by [facility] mg tablet 00:00: mouth [place] 00 the Medical morning. Branch ezetimibe 2-0 Yes [id number] 10mg Take 1 [facility] (ZETIA) 10 7-14 tablet by [facility] mg tablet 00:00: mouth [place] 00 the Medical morning. Branch ezetimibe 2-0 Yes [id number] 10mg Take 1 [facility] (ZETIA) 10 7-14 tablet by [facility] mg tablet 00:00: mouth [place] 00 the Medical morning. Branch ezetimibe 2-0 Yes [id number] 10mg Take 1 [facility] (ZETIA) 10 7-14 tablet by [facility] mg tablet 00:00: mouth [place] 00 the Medical morning. Branch ezetimibe 2-0 Yes [id number] 10mg Take 1 [facility] (ZETIA) 10 7-14 tablet by [facility] mg tablet 00:00: mouth [place] 00 the Medical morning. Branch ezetimibe 2-0 Yes [id number] 10mg Take 1 [facility] (ZETIA) 10 7-14 tablet by [facility] mg tablet 00:00: mouth [place] 00 the Medical morning. Branch ezetimibe 2-0 Yes [id number] 10mg Take 1 [facility] (ZETIA) 10 7-14 tablet by [facility] mg tablet 00:00: mouth [place] 00 the Medical morning. Branch ezetimibe 2-0 Yes [id number] 10mg Take 1 [facility] (ZETIA) 10 7-14 tablet by [facility] mg tablet 00:00: mouth [place] 00 the Medical morning. Branch ezetimibe 2-0 Yes [id number] 10mg Take 1 [facility] (ZETIA) 10 7-14 tablet by [facility] mg tablet 00:00: mouth [place] 00 the Medical morning. Branch ezetimibe 2021-0 Yes [id number] 10mg Take 1 [facility] (ZETIA) 10 7-14 tablet by [facility] mg tablet 00:00: mouth [place] 00 the Medical morning. Branch ezetimibe 2021-0 Yes [id number] 10mg Take 1 [facility] (ZETIA) 10 7-14 tablet by [facility] mg tablet 00:00: mouth [place] 00 the Medical morning. Branch ezetimibe 2021-0 Yes [id number] 10mg Take 1 [facility] (ZETIA) 10 7-14 tablet by [facility] mg tablet 00:00: mouth [place] 00 the Medical morning. Branch ezetimibe 2021-0 Yes [id number] 10mg Take 1 [facility] (ZETIA) 10 7-14 tablet by [facility] mg tablet 00:00: mouth [place] 00 the Medical morning. Branch ezetimibe 2021-0 Yes [id number] 10mg Take 1 [facility] (ZETIA) 10 7-14 tablet by [facility] mg tablet 00:00: mouth [place] 00 the Medical morning. Branch ezetimibe 2021-0 Yes [id number] 10mg Take 1 [facility] (ZETIA) 10 7-14 tablet by [facility] mg tablet 00:00: mouth [place] 00 the Medical morning. Branch ezetimibe 2021-0 Yes [id number] 10mg Take 1 [facility] (ZETIA) 10 7-14 tablet by [facility] mg tablet 00:00: mouth [place] 00 the Medical morning. Branch ezetimibe 2021-0 3- No [id number] 10mg Take 1 [facility] (ZETIA) 10 7-14 03-28 tablet by it[facility] of mg tablet 00:00: 00:00 mouth in [place] :00 the Medical morning. Branch KLOR-CON 10 2021-0 Yes [id number] TAKE 1 [facility] 10 mEq CR 7-06 TABLET BY ity o f tablet 00:00: MOUTH [place] 00 EVERY DAY Medical Branch KLOR-CON 10 2021-0 Yes [id number] TAKE 1 [facility] 10 mEq CR 7-06 TABLET BY ity o f tablet 00:00: MOUTH [place] 00 EVERY DAY Medical Branch clopidogreL 2021-0 Yes [id number] 75mg Take 1 [facility] 75 mg 7-06 tablet by ity of tablet 00:00: mouth [place] 00 daily. [facility] 10 2021-0 Yes [id number] TAKE 1 [facility] 10 mEq CR 7-06 TABLET BY ity o f tablet 00:00: MOUTH [place] 00 EVERY DAY Medical Branch clopidogreL 2021-0 Yes [id number] 75mg Take 1 [facility] 75 mg 7-06 tablet by ity of tablet 00:00: mouth [place] 00 daily. [facility] 10 Yes [id number] TAKE 1 [facility] 10 mEq CR 7-06 TABLET BY ity o f tablet 00:00: MOUTH [place] 00 EVERY DAY Medical Branch clopidogreL 2021-0 Yes [id number] 75mg Take 1 [facility] 75 mg 7-06 tablet by ity of tablet 00:00: mouth [place] 00 daily. [facility] 10 Yes [id number] TAKE 1 [facility] 10 mEq CR 7-06 TABLET BY ity o f tablet 00:00: MOUTH [place] 00 EVERY DAY Medical Branch clopidogreL 2021-0 Yes [id number] 75mg Take 1 [facility] 75 mg 7-06 tablet by ity of tablet 00:00: mouth [place] 00 daily. [facility] 10 Yes [id number] TAKE 1 [facility] 10 mEq CR 7-06 TABLET BY ity o f tablet 00:00: MOUTH [place] 00 EVERY DAY Medical Branch clopidogreL 2021-0 Yes [id number] 75mg Take 1 [facility] 75 mg 7-06 tablet by ity of tablet 00:00: mouth [place] 00 daily. [facility] 10 Yes [id number] TAKE 1 [facility] 10 mEq CR 7-06 TABLET BY ity o f tablet 00:00: MOUTH [place] 00 EVERY DAY Medical Branch clopidogreL 2021-0 Yes [id number] 75mg Take 1 [facility] 75 mg 7-06 tablet by ity of tablet 00:00: mouth [place] 00 daily. [facility] 10 Yes [id number] TAKE 1 [facility] 10 mEq CR 7-06 TABLET BY ity o f tablet 00:00: MOUTH [place] 00 EVERY DAY Medical Branch clopidogreL 2021-0 Yes [id number] 75mg Take 1 [facility] 75 mg 7-06 tablet by ity of tablet 00:00: mouth [place] 00 daily. [facility] 10 Yes [id number] TAKE 1 [facility] 10 mEq CR 7-06 TABLET BY ity o f tablet 00:00: MOUTH [place] 00 EVERY DAY Medical Branch clopidogreL 2021-0 Yes [id number] 75mg Take 1 [facility] 75 mg 7-06 tablet by ity of tablet 00:00: mouth [place] 00 daily. [facility] 10 Yes [id number] TAKE 1 [facility] 10 mEq CR 7-06 TABLET BY ity o f tablet 00:00: MOUTH [place] 00 EVERY DAY Medical Branch clopidogreL 2021-0 Yes [id number] 75mg Take 1 [facility] 75 mg 7-06 tablet by ity of tablet 00:00: mouth [place] 00 daily. [facility] 10 Yes [id number] TAKE 1 [facility] 10 mEq CR 7-06 TABLET BY ity o f tablet 00:00: MOUTH [place] 00 EVERY DAY Medical Branch clopidogreL 2021-0 Yes [id number] 75mg Take 1 [facility] 75 mg 7-06 tablet by ity of tablet 00:00: mouth [place] 00 daily. [facility] 10 Yes [id number] TAKE 1 [facility] 10 mEq CR 7-06 TABLET BY ity o f tablet 00:00: MOUTH [place] 00 EVERY DAY Medical [place] clopidogreL 2021-0 Yes [id number] 75mg Take 1 [facility] 75 mg 7-06 tablet by ity of tablet 00:00: mouth [place] 00 daily. [facility] 10 Yes [id number] TAKE 1 [facility] 10 mEq CR 7-06 TABLET BY ity o f tablet 00:00: MOUTH [place] 00 EVERY DAY Medical [place] clopidogreL 2021-0 Yes [id number] 75mg Take 1 [facility] 75 mg 7-06 tablet by ity of tablet 00:00: mouth [place] 00 daily. [facility] 10 Yes [id number] TAKE 1 [facility] 10 mEq CR 7-06 TABLET BY ity o f tablet 00:00: MOUTH [place] 00 EVERY DAY Medical [place] clopidogreL 2021-0 Yes [id number] 75mg Take 1 [facility] 75 mg 7-06 tablet by ity of tablet 00:00: mouth [place] 00 daily. [facility] 10 Yes [id number] TAKE 1 [facility] 10 mEq CR 7-06 TABLET BY ity o f tablet 00:00: MOUTH [place] 00 EVERY DAY Medical Branch clopidogreL 2021-0 Yes [id number] 75mg Take 1 [facility] 75 mg 7-06 tablet by ity of tablet 00:00: mouth [place] 00 daily. [facility] 10 Yes [id number] TAKE 1 [facility] 10 mEq CR 7-06 TABLET BY ity o f tablet 00:00: MOUTH [place] 00 EVERY DAY Medical Branch clopidogreL 2021-0 Yes [id number] 75mg Take 1 [facility] 75 mg 7-06 tablet by ity of tablet 00:00: mouth [place] 00 daily. [facility] Branch [facility] 10 Yes [id number] TAKE 1 [facility] 10 mEq CR 7-06 TABLET BY ity o f tablet 00:00: MOUTH [place] 00 EVERY DAY Medical Branch clopidogreL 2021-0 Yes [id number] 75mg Take 1 [facility] 75 mg 7-06 tablet by ity of tablet 00:00: mouth [place] 00 daily. [facility] 10 Yes [id number] TAKE 1 [facility] 10 mEq CR 7-06 TABLET BY ity o f tablet 00:00: MOUTH [place] 00 EVERY DAY Medical Branch clopidogreL 2021-0 Yes [id number] 75mg Take 1 [facility] 75 mg 7-06 tablet by ity of tablet 00:00: mouth [place] 00 daily. Medical [facility] 10 Yes [id number] TAKE 1 [facility] 10 mEq CR 7-06 TABLET BY ity o f tablet 00:00: MOUTH [place] 00 EVERY DAY Medical Branch clopidogreL 2021-0 Yes [id number] 75mg Take 1 [facility] 75 mg 7-06 tablet by ity of tablet 00:00: mouth [place] 00 daily. [facility] 10 Yes [id number] TAKE 1 [facility] 10 mEq CR 7-06 TABLET BY ity o f tablet 00:00: MOUTH [place] 00 EVERY DAY Medical Branch clopidogreL 2021-0 Yes [id number] 75mg Take 1 [facility] 75 mg 7-06 tablet by ity of tablet 00:00: mouth [place] 00 daily. [facility] 10 Yes [id number] TAKE 1 [facility] 10 mEq CR 7-06 TABLET BY ity o f tablet 00:00: MOUTH [place] 00 EVERY DAY Medical Branch clopidogreL 2021-0 Yes [id number] 75mg Take 1 [facility] 75 mg 7-06 tablet by ity of tablet 00:00: mouth [place] 00 daily. [facility] 10 2021-0 Yes [id number] TAKE 1 [facility] 10 mEq CR 7-06 TABLET BY ity o f tablet 00:00: MOUTH [place] 00 EVERY DAY Medical [place] clopidogreL 2021-0 Yes [id number] 75mg Take 1 [facility] 75 mg 7-06 tablet by ity of tablet 00:00: mouth [place] 00 daily. [place] [address] 2021-0 Yes [id number] TAKE 1 [facility] 10 mEq CR 7-06 TABLET BY ity o f tablet 00:00: MOUTH [place] 00 EVERY DAY Medical [place] clopidogreL 2021-0 Yes [id number] 75mg Take 1 [facility] 75 mg 7-06 tablet by ity of tablet 00:00: mouth [place] 00 daily. [place] [address] Yes [id number] TAKE 1 [facility] 10 mEq CR 7-06 TABLET BY ity o f tablet 00:00: MOUTH [place] 00 EVERY DAY [facility] clopidogreL 2021-0 Yes [id number] 75mg Take 1 [facility] 75 mg 7-06 tablet by ity of tablet 00:00: mouth [place] 00 daily. [place] [address] 0 Yes [id number] TAKE 1 [facility] 10 mEq CR 7-06 TABLET BY ity o f tablet 00:00: MOUTH [place] 00 EVERY DAY [facility] clopidogreL 2021-0 Yes [id number] 75mg Take 1 [facility] 75 mg 7-06 tablet by ity of tablet 00:00: mouth [place] 00 daily. [place] [address] 0 Yes [id number] TAKE 1 [facility] 10 mEq CR 7-06 TABLET BY ity o f tablet 00:00: MOUTH [place] 00 EVERY DAY Medical [place] clopidogreL 2021-0 Yes [id number] 75mg Take 1 [facility] 75 mg 7-06 tablet by ity of tablet 00:00: mouth [place] 00 daily. [facility] Branch clopidogreL 2021-0 Yes [id number] 75mg Take 1 [facility] 75 mg 7-06 tablet by ity of tablet 00:00: mouth [place] 00 daily. [facility] Branch clopidogreL 2021-0 Yes [id number] 75mg Take 1 [facility] 75 mg 7-06 tablet by ity of tablet 00:00: mouth [place] 00 daily. [facility] Branch clopidogreL Yes [id number] 75mg Take 1 [facility] 75 mg 06 tablet by ity of tablet 00:00: mouth [place] 00 daily. Medical Branch clopidogreL 2022- No [id number] 75mg Take 1 [facility] 75 mg 08-20-17 tablet by ity of tablet 00:00: 00:00 mouth [place] 00 :00 daily. Medical Branch KLOR-CON 10 2021- No [id number] TAKE 1 [facility] 10 mEq CR 08-20 12-28 TABLET BY ity of tablet 00:00: 00:00 MOUTH [place] 00 :00 EVERY DAY Medical Branch losartan-hy Yes [id number] 1{tbl} Take 1 [facility] drochloroth 6-02 tablet by ity of iazide 00:00: mouth [place] 100-25 mg 00 daily. Medical per tablet Branch losartan-hy Yes [id number] 1{tbl} Take 1 [facility] drochloroth 6-02 tablet by ity of iazide 00:00: mouth [place] 100-25 mg 00 daily. Medical per tablet Branch losartan-hy Yes [id number] 1{tbl} Take 1 [facility] drochloroth 6-02 tablet by ity of iazide 00:00: mouth [place] 100-25 mg 00 daily. Medical per tablet Branch losartan-hy Yes [id number] 1{tbl} Take 1 [facility] drochloroth 6-02 tablet by ity of iazide 00:00: mouth [place] 100-25 mg 00 daily. Medical per tablet Branch losartan-hy Yes [id number] 1{tbl} Take 1 [facility] drochloroth 6-02 tablet by ity of iazide 00:00: mouth [place] 100-25 mg 00 daily. Medical per tablet Branch losartan-hy Yes [id number] 1{tbl} Take 1 [facility] drochloroth 6-02 tablet by ity of iazide 00:00: mouth [place] 100-25 mg 00 daily. Medical per tablet Branch losartan-hy Yes [id number] 1{tbl} Take 1 [facility] drochloroth 6-02 tablet by ity of iazide 00:00: mouth [place] 100-25 mg 00 daily. Medical per tablet Branch losartan-hy Yes [id number] 1{tbl} Take 1 [facility] drochloroth 6-02 tablet by ity of iazide 00:00: mouth [place] 100-25 mg 00 daily. Medical per tablet Branch losartan-hy 0 Yes [id number] 1{tbl} Take 1 [facility] drochloroth 6-02 tablet by ity of iazide 00:00: mouth [place] 100-25 mg 00 daily. Medical per tablet Branch losartan-hy 0 Yes [id number] 1{tbl} Take 1 [facility] drochloroth 6-02 tablet by ity of iazide 00:00: mouth [place] 100-25 mg 00 daily. Medical per tablet Branch losartan-hy Yes [id number] 1{tbl} Take 1 [facility] drochloroth 6-02 tablet by ity of iazide 00:00: mouth [place] 100-25 mg 00 daily. Medical per tablet Branch losartan-hy Yes [id number] 1{tbl} Take 1 [facility] drochloroth 6-02 tablet by ity of iazide 00:00: mouth [place] 100-25 mg 00 daily. Medical per tablet Branch losartan-hy Yes [id number] 1{tbl} Take 1 [facility] drochloroth 6-02 tablet by ity of iazide 00:00: mouth [place] 100-25 mg 00 daily. Medical per tablet Branch losartan-hy Yes [id number] 1{tbl} Take 1 [facility] drochloroth 6-02 tablet by ity of iazide 00:00: mouth [place] 100-25 mg 00 daily. Medical per tablet Branch losartan-hy 2021- No [id number] 1{tbl} Take 1 [facility] drochloroth 6-02 11-06 tablet by it y of iazide 00:00: 00:00 mouth [place] 100-25 mg 00 :00 daily. Medical per tablet Branch losartan-hy 2021- No [id number] 1{tbl} Take 1 [facility] drochloroth 5-31 05-31 tablet by it y of iazide 12:38: 00:00 mouth [place] 100-25 mg 00 :00 daily. Medical per tablet Branch losartan-hy Yes [id number] 1{tbl} Take 1 [facility] drochloroth 5-31 tablet by ity of iazide 00:00: mouth [place] 100-25 mg 00 daily. Medical per tablet Branch losartan-hy 2021-2021- No [id number] 1{tbl} Take 1 [facility] drochloroth 5-31 06-02 tablet by it y of iazide 00:00: 00:00 mouth [place] 100-25 mg 00 :00 daily. Medical per tablet Branch metoprolol 0 2021- No 25mg Take 25 mg [facility] tartrate 25 5-16 05-16 by mouth 2 i ty of mg tablet 15:00: 00:00 (two) [place] 41 :00 times Medical daily. Branch metoprolol 2021-0 Yes [id number] 25mg Take 1 U nivers tartrate 25 5-16 tablet by ity of mg tablet 00:00: mouth [address] [place] [address] (two) Medical times Branch daily. metoprolol 2021-0 Yes [id number] 25mg Take 1 U nivers tartrate 25 5-16 tablet by ity of mg tablet 00:00: mouth 2 [place] (two) Medical times Branch daily. metoprolol 2021-0 Yes [id number] 25mg Take 1 U nivers tartrate 25 5-16 tablet by ity of mg tablet 00:00: mouth [address] [place] [address] (two) Medical times Branch daily. metoprolol 2021-0 Yes [id number] 25mg Take 1 U nivers tartrate 25 5-16 tablet by ity of mg tablet 00:00: mouth [address] [place] [address] (two) Medical times Branch daily. metoprolol 2021-0 Yes [id number] 25mg Take 1 U nivers tartrate 25 5-16 tablet by ity of mg tablet 00:00: mouth [address] [place] [address] (two) Medical times Branch daily. metoprolol 2021-0 Yes [id number] 25mg Take 1 U nivers tartrate 25 5-16 tablet by ity of mg tablet 00:00: mouth [address] [place] [address] (two) Medical times Branch daily. metoprolol 2021-0 Yes [id number] 25mg Take 1 U nivers tartrate 25 5-16 tablet by ity of mg tablet 00:00: mouth 2 [place] (two) Medical times Branch daily. metoprolol 2021-0 Yes [id number] 25mg Take 1 U nivers tartrate 25 5-16 tablet by ity of mg tablet 00:00: mouth [address] [place] [address] (two) Medical times Branch daily. metoprolol 2021-0 Yes [id number] 25mg Take 1 U nivers tartrate 25 5-16 tablet by ity of mg tablet 00:00: mouth (two) Medical times Branch daily. metoprolol 2021-0 Yes [id number] 25mg Take 1 U nivers tartrate 25 5-16 tablet by ity of mg tablet 00:00: mouth (two) Medical times Branch daily. metoprolol 2021-0 Yes [id number] 25mg Take 1 U nivers tartrate 25 5-16 tablet by ity of mg tablet 00:00: mouth (two) Medical times Branch daily. metoprolol 2021-0 Yes [id number] 25mg Take 1 [facility] nivers tartrate 25 5-16 tablet by [facility]y [facility] mg tablet [facility]: [facility] Medical times Branch daily. metoprolol 0 Yes [id number] 25mg Take 1 U nivers tartrate 25 5-16 tablet by [facility]y of mg tablet 00:00: [facility] [place] [facility] Medical times Branch daily. metoprolol 2021-0 Yes [id number] 25mg Take 1 U nivers tartrate 25 5-16 tablet by ity of mg tablet 00:00: mouth [place] ([facility]) Medical times Branch daily. metoprolol 2021-0 Yes [id number] 25mg Take 1 U nivers tartrate 25 5-16 tablet by [facility]y of mg tablet 00:00: [facility] Medical times Branch daily. metoprolol 2021-0 Yes [id number] 25mg Take 1 U nivers tartrate 25 5-16 tablet by ity of mg tablet 00:00: [facility] [place] (two) Medical times Branch daily. metoprolol 2021-0 Yes [id number] 25mg Take 1 U nivers tartrate 25 5-16 tablet by ity of mg tablet 00:00: mouth [place] (two) Medical times Branch daily. metoprolol 2021-0 Yes [id number] 25mg Take 1 U nivers tartrate 25 5-16 tablet by ity of mg tablet 00:00: mouth (two) Medical times Branch daily. metoprolol 2021-0 2021- No [id number] 25mg Take 1 [facility] tartrate 25 5-16 08-15 tablet by it y of mg tablet 00:00: 00:[place] mouth [place] :[place] (two) Medical times Branch daily. furosemide 2021-0 Yes [id number] 20mg Take 1 [facility] 20 mg 5-12 tablet by ity of tablet 00:00: mouth [place] 00 daily. Medical Branch furosemide 2021-0 Yes [id number] 20mg Take 1 [facility] 20 mg 5-12 tablet by ity of tablet 00:00: mouth [place] 00 daily. Medical Branch furosemide 2021-0 Yes [id number] 20mg Take 1 [facility] 20 mg 5-12 tablet by ity of tablet 00:00: mouth [place] 00 daily. Medical Branch furosemide 2021-0 Yes [id number] 20mg Take 1 [facility] 20 mg 5-12 tablet by ity of tablet 00:00: mouth [place] 00 daily. Medical Branch furosemide 2021-0 Yes [id number] 20mg Take 1 [facility] 20 mg 5-12 tablet by ity of tablet 00:00: mouth [place] 00 daily. Medical Branch furosemide 2021-0 Yes [id number] 20mg Take 1 [facility] 20 mg 5-12 tablet by ity of tablet 00:00: mouth [place] 00 daily. Medical Branch furosemide 2021-0 Yes [id number] 20mg Take 1 [facility] 20 mg 5-12 tablet by ity of tablet 00:00: mouth [place] 00 daily. Medical Branch furosemide 2021-0 Yes [id number] 20mg Take 1 [facility] 20 mg 5-12 tablet by ity of tablet 00:00: mouth [place] 00 daily. Medical Branch furosemide 2021-0 Yes [id number] 20mg Take 1 [facility] 20 mg 5-12 tablet by ity of tablet 00:00: mouth [place] 00 daily. Medical Branch furosemide 2021-0 Yes [id number] 20mg Take 1 [facility] 20 mg 5-12 tablet by ity of tablet 00:00: mouth [place] 00 daily. Medical Branch furosemide 2-0 Yes [id number] 20mg Take 1 [facility] 20 mg 5-12 tablet by ity of tablet 00:00: mouth [place] 00 daily. Medical Branch furosemide 2-0 Yes [id number] 20mg Take 1 [facility] 20 mg 5-12 tablet by ity of tablet 00:00: mouth [place] 00 daily. Medical Branch furosemide 2-0 Yes [id number] 20mg Take 1 [facility] 20 mg 5-12 tablet by ity of tablet 00:00: mouth [place] 00 daily. Medical Branch furosemide 2022-0 Yes [id number] 20mg Take 1 [facility] 20 mg 5-12 tablet by ity of tablet 00:00: mouth [place] 00 daily. Medical Branch furosemide 2021-0 Yes [id number] 20mg Take 1 [facility] 20 mg 5-12 tablet by ity of tablet 00:00: mouth [place] 00 daily. Medical Branch furosemide 2021-0 Yes [id number] 20mg Take 1 [facility] 20 mg 5-12 tablet by ity of tablet 00:00: mouth [place] 00 daily. Medical Branch furosemide 2021-0 Yes [id number] 20mg Take 1 [facility] 20 mg 5-12 tablet by ity of tablet 00:00: mouth [place] 00 daily. Medical Branch furosemide 2021-0 Yes [id number] 20mg Take 1 [facility] 20 mg 5-12 tablet by ity of tablet 00:00: mouth [place] 00 daily. Medical Branch furosemide 2021-0 Yes [id number] 20mg Take 1 [facility] 20 mg 5-12 tablet by ity of tablet 00:00: mouth [place] 00 daily. Medical Branch furosemide 2021-0 Yes [id number] 20mg Take 1 [facility] 20 mg 5-12 tablet by ity of tablet 00:00: mouth [place] 00 daily. Medical Branch furosemide 2021-0 Yes [id number] 20mg Take 1 [facility] 20 mg 5-12 tablet by ity of tablet 00:00: mouth [place] 00 daily. Medical Branch furosemide 2021-0 Yes [id number] 20mg Take 1 [facility] 20 mg 5-12 tablet by ity of tablet 00:00: mouth [place] 00 daily. Medical Branch furosemide 2021-0 Yes [id number] 20mg Take 1 [facility] 20 mg 5-12 tablet by ity of tablet 00:00: mouth [place] 00 daily. Medical Branch furosemide 2021-0 Yes [id number] 20mg Take 1 [facility] 20 mg 5-12 tablet by ity of tablet 00:00: mouth [place] 00 daily. Medical Branch furosemide 2021-0 Yes [id number] 20mg Take 1 [facility] 20 mg 5-12 tablet by ity of tablet 00:00: mouth [place] 00 daily. Medical Branch furosemide 2021-0 2022- No [id number] 20mg Take 1 [facility] 20 mg 5-12 11-03 tablet by ity of tablet 00:00: 00:00 mouth [place] 00 :00 daily. Medical Branch metFORMIN 2021-0 Yes [id number] 1000mg Take 1 [facility] 1,000 mg 5-02 tablet by ity of tablet 00:00: mouth [place] 00 daily. [facility] Branch glimepiride 2021-0 Yes [id number] 2mg Take 1 [facility] 2 mg tablet 5-02 tablet by ity of 00:00: mouth [place] 00 daily with Medical breakfast. Branch metFORMIN 2021-0 Yes [id number] 1000mg Take 1 [facility] 1,000 mg 5-02 tablet by ity of tablet 00:00: mouth [place] 00 daily. [facility] glimepiride 2021-0 Yes [id number] 2mg Take 1 [facility] 2 mg tablet 5-02 tablet by ity of 00:00: mouth [place] 00 daily with Medical breakfast. Branch metFORMIN 2021-0 Yes [id number] 1000mg Take 1 [facility] 1,000 mg 5-02 tablet by ity of tablet 00:00: mouth [place] 00 daily. [facility] glimepiride 2021-0 Yes [id number] 2mg Take 1 [facility] 2 mg tablet 5-02 tablet by ity of 00:00: mouth [place] 00 daily with Medical breakfast. [place] metFORMIN 2021-0 Yes [id number] 1000mg Take 1 [facility] 1,000 mg 5-02 tablet by ity of tablet 00:00: mouth [place] 00 daily. [facility] glimepiride 2021-0 Yes [id number] 2mg Take 1 [facility] 2 mg tablet 5-02 tablet by ity of 00:00: mouth [place] 00 daily with Medical breakfast. [place] metFORMIN 2021-0 Yes [id number] 1000mg Take 1 [facility] 1,000 mg 5-02 tablet by ity of tablet 00:00: mouth [place] 00 daily. [facility] glimepiride 2021-0 Yes [id number] 2mg Take 1 [facility] 2 mg tablet 5-02 tablet by ity of 00:00: mouth [place] 00 daily with Medical breakfast. [place] metFORMIN 2021-0 Yes [id number] 1000mg Take 1 [facility] 1,000 mg 5-02 tablet by ity of tablet 00:00: mouth [place] 00 daily. [facility] glimepiride 2021-0 Yes [id number] 2mg Take 1 [facility] 2 mg tablet 5-02 tablet by ity of 00:00: mouth [place] 00 daily with Medical breakfast. [place] metFORMIN 2021-0 Yes [id number] 1000mg Take 1 [facility] 1,000 mg 5-02 tablet by ity of tablet 00:00: mouth [place] 00 daily. [facility] glimepiride 2021-0 Yes [id number] 2mg Take 1 [facility] 2 mg tablet 5-02 tablet by ity of 00:00: mouth [place] 00 daily with Medical breakfast. Branch metFORMIN 2021-0 Yes [id number] 1000mg Take 1 [facility] 1,000 mg 5-02 tablet by ity of tablet 00:00: mouth [place] 00 daily. [facility] glimepiride 2021-0 Yes [id number] 2mg Take 1 [facility] 2 mg tablet 5-02 tablet by ity of 00:00: mouth [place] 00 daily with Medical breakfast. [place] metFORMIN 2021-0 Yes [id number] 1000mg Take 1 [facility] 1,000 mg 5-02 tablet by ity of tablet 00:00: mouth [place] 00 daily. [facility] glimepiride 2021-0 Yes [id number] 2mg Take 1 [facility] 2 mg tablet 5-02 tablet by ity of 00:00: mouth [place] 00 daily with Medical breakfast. [place] metFORMIN 2021-0 Yes [id number] 1000mg Take 1 [facility] 1,000 mg 5-02 tablet by ity of tablet 00:00: mouth [place] 00 daily. [facility] glimepiride 2021-0 Yes [id number] 2mg Take 1 [facility] 2 mg tablet 5-02 tablet by ity of 00:00: mouth [place] 00 daily with Medical breakfast. [place] metFORMIN 2021-0 Yes [id number] 1000mg Take 1 [facility] 1,000 mg 5-02 tablet by ity of tablet 00:00: mouth [place] 00 daily. [facility] glimepiride 2021-0 Yes [id number] 2mg Take 1 [facility] 2 mg tablet 5-02 tablet by ity of 00:00: mouth [place] 00 daily with Medical breakfast. [place] metFORMIN 2021-0 Yes [id number] 1000mg Take 1 [facility] 1,000 mg 5-02 tablet by ity of tablet 00:00: mouth [place] 00 daily. [facility] glimepiride 2021-0 Yes [id number] 2mg Take 1 [facility] 2 mg tablet 5-02 tablet by ity of 00:00: mouth [place] 00 daily with Medical breakfast. [place] metFORMIN 2021-0 Yes [id number] 1000mg Take 1 [facility] 1,000 mg 5-02 tablet by ity of tablet 00:00: mouth [place] 00 daily. [facility] glimepiride 2021-0 Yes [id number] 2mg Take 1 [facility] 2 mg tablet 5-02 tablet by [facility] of 00:00: mouth [place] 00 daily with Medical breakfast. [facility]MIN 2021-0 Yes [id number] 1000mg Take 1 [facility] 1,000 mg 5-02 tablet by [facility] of tablet 00:00: mouth [place] 00 daily. [facility] glimepiride 2021-0 Yes [id number] 2mg Take 1 [facility] 2 mg tablet 5-02 tablet by [facility] of 00:00: mouth [place] 00 daily with Medical breakfast. [place] [facility]MIN 2021-0 Yes [id number] 1000mg Take 1 [facility] 1,000 mg 5-02 tablet by [facility] of tablet 00:00: mouth [place] 00 daily. [facility] glimepiride 2021-0 Yes [id number] 2mg Take 1 [facility] 2 mg tablet 5-02 tablet by [facility] of 00:00: mouth [place] 00 daily with Medical breakfast. [place] [facility]MIN 2021-0 Yes [id number] 1000mg Take 1 [facility] 1,000 mg 5-02 tablet by [facility] of tablet 00:00: mouth [place] 00 daily. [facility] glimepiride 2021-0 Yes [id number] 2mg Take 1 [facility] 2 mg tablet 5-02 tablet by [facility] of 00:00: mouth [place] 00 daily with Medical breakfast. [place] [facility]MIN 2021-0 Yes [id number] 1000mg Take 1 [facility] 1,000 mg 5-02 tablet by [facility] of tablet 00:00: mouth [place] 00 daily. [facility] glimepiride 2021-0 Yes [id number] 2mg Take 1 [facility] 2 mg tablet 5-02 tablet by [facility] of 00:00: mouth [place] 00 daily with Medical breakfast. [place] [facility]MIN 2021-0 Yes [id number] 1000mg Take 1 [facility] 1,000 mg 5-02 tablet by [facility] of tablet 00:00: mouth [place] 00 daily. [facility] glimepiride 2021-0 Yes [id number] 2mg Take 1 [facility] 2 mg tablet 5-02 tablet by [facility] of 00:00: mouth [place] 00 daily with Medical breakfast. [place] [facility]MIN 2021-0 Yes [id number] 1000mg Take 1 [facility] 1,000 mg 5-02 tablet by [facility] of tablet 00:00: mouth [place] 00 daily. [facility] glimepiride 2021-0 Yes [id number] 2mg Take 1 [facility] 2 mg tablet 5-02 tablet by [facility] of 00:00: mouth [place] 00 daily with Medical breakfast. [facility] 2021-0 Yes [id number] 1000mg Take 1 [facility] 1,000 mg 5-02 tablet by [facility] of tablet 00:00: mouth [place] 00 daily. [facility] glimepiride 2021-0 Yes [id number] 2mg Take 1 [facility] 2 mg tablet 5-02 tablet by [facility] of 00:00: mouth [place] 00 daily with Medical breakfast. [facility]MIN 2021-0 Yes [id number] 1000mg Take 1 [facility] 1,000 mg 5-02 tablet by [facility] of tablet 00:00: mouth [place] 00 daily. [facility] glimepiride 2021-0 Yes [id number] 2mg Take 1 [facility] 2 mg tablet 5-02 tablet by [facility] of 00:00: mouth [place] 00 daily with Medical breakfast. [place] [facility]MIN 2021-0 Yes [id number] 1000mg Take 1 [facility] 1,000 mg 5-02 tablet by [facility] of tablet 00:00: mouth [place] 00 daily. [facility] glimepiride 2021-0 Yes [id number] 2mg Take 1 [facility] 2 mg tablet 5-02 tablet by [facility] of 00:00: mouth [place] 00 daily with Medical breakfast. [place] [facility]FORMIN 2021-0 Yes [id number] 1000mg Take 1 [facility] 1,000 mg 5-02 tablet by [facility] of tablet 00:00: mouth [place] 00 daily. [facility] glimepiride 2021-0 Yes [id number] 2mg Take 1 [facility] 2 mg tablet 5-02 tablet by [facility] of 00:00: mouth [place] 00 daily with Medical breakfast. [place] [facility]FORMIN 2021-0 Yes [id number] 1000mg Take 1 [facility] 1,000 mg 5-02 tablet by [facility] of tablet 00:00: mouth [place] 00 daily. [facility] glimepiride 2021-0 Yes [id number] 2mg Take 1 [facility] 2 mg tablet 5-02 tablet by [facility] of 00:00: mouth [place] 00 daily with Medical breakfast. [place] [facility]FORMIN 2021-0 Yes [id number] 1000mg Take 1 [facility] 1,000 mg 5-02 tablet by [facility] of tablet 00:00: mouth [place] 00 daily. [facility] glimepiride 2021-0 Yes [id number] 2mg Take 1 [facility] 2 mg tablet 5-02 tablet by [facility] of 00:00: mouth [place] 00 daily with Medical breakfast. [place] [facility]FORMIN 2021-0 Yes [id number] 1000mg Take 1 [facility] 1,000 mg 5-02 tablet by [facility] of tablet 00:00: mouth [place] 00 daily. [facility] glimepiride 2021-0 Yes [id number] 2mg Take 1 [facility] 2 mg tablet 5-02 tablet by [facility] of 00:00: mouth [place] 00 daily with Medical breakfast. [facility]FORMIN 2021-0 Yes [id number] 1000mg Take 1 [facility] 1,000 mg 5-02 tablet by [facility] of tablet 00:00: mouth [place] 00 daily. [facility] glimepiride 2021-0 Yes [id number] 2mg Take 1 [facility] 2 mg tablet 5-02 tablet by [facility] of 00:00: mouth [place] 00 daily with Medical breakfast. [facility]FORMIN 2021-0 Yes [id number] 1000mg Take 1 [facility] 1,000 mg 5-02 tablet by [facility] of tablet 00:00: mouth [place] 00 daily. [facility] glimepiride 2021-0 Yes [id number] 2mg Take 1 [facility] 2 mg tablet 5-02 tablet by [facility] of 00:00: mouth [place] 00 daily with Medical breakfast. [place] [facility]MIN 2021-0 Yes [id number] 1000mg Take 1 [facility] 1,000 mg 5-02 tablet by [facility] of tablet 00:00: mouth [place] 00 daily. [facility] glimepiride 2021-0 Yes [id number] 2mg Take 1 [facility] 2 mg tablet 5-02 tablet by [facility] of 00:00: mouth [place] 00 daily with Medical breakfast. [place] [facility]FORMIN 2021-0 Yes [id number] 1000mg Take 1 [facility] 1,000 mg 5-02 tablet by [facility] of tablet 00:00: mouth [place] 00 daily. [facility] glimepiride 2021-0 Yes [id number] 2mg Take 1 [facility] 2 mg tablet 5-02 tablet by [facility] of 00:00: mouth [place] 00 daily with Medical breakfast. [place] [facility]FORMIN 2021-0 Yes [id number] 1000mg Take 1 [facility] 1,000 mg 5-02 tablet by [facility] of tablet 00:00: mouth [place] 00 daily. [facility] glimepiride 2021-0 Yes [id number] 2mg Take 1 [facility] 2 mg tablet 5-02 tablet by [facility] of 00:00: mouth [place] 00 daily with Medical breakfast. [place] [facility]FORMIN 2021-0 Yes [id number] 1000mg Take 1 [facility] 1,000 mg 5-02 tablet by [facility] of tablet 00:00: mouth [place] 00 daily. [facility] glimepiride 2021-0 Yes [id number] 2mg Take 1 [facility] 2 mg tablet 5-02 tablet by [facility] of 00:00: mouth [place] 00 daily with Medical breakfast. [facility] 2021-0 Yes [id number] 1000mg Take 1 [facility] 1,000 mg 5-02 tablet by [facility] of tablet 00:00: mouth [place] 00 daily. [facility] glimepiride 2021-0 Yes [id number] 2mg Take 1 [facility] 2 mg tablet 5-02 tablet by [facility] of 00:00: mouth [place] 00 daily with Medical breakfast. [place] [facility]FORMIN 2021-0 Yes [id number] 1000mg Take 1 [facility] 1,000 mg 5-02 tablet by [facility] of tablet 00:00: mouth [place] 00 daily. [facility] glimepiride 2021-0 Yes [id number] 2mg Take 1 [facility] 2 mg tablet 5-02 tablet by [facility] of 00:00: mouth [place] 00 daily with Medical breakfast. [place] [facility]FORMIN 2021-0 Yes [id number] 1000mg Take 1 [facility] 1,000 mg 5-02 tablet by [facility] of tablet 00:00: mouth [place] 00 daily. [facility] glimepiride 2021-0 Yes [id number] 2mg Take 1 [facility] 2 mg tablet 5-02 tablet by [facility] of 00:00: mouth [place] 00 daily with Medical breakfast. [place] [facility]FORMIN 2021-0 Yes [id number] 1000mg Take 1 [facility] 1,000 mg 5-02 tablet by [facility] of tablet 00:00: mouth [place] 00 daily. [facility] glimepiride 2021-0 Yes [id number] 2mg Take 1 [facility] 2 mg tablet 5-02 tablet by [facility] of 00:00: mouth [place] 00 daily with Medical breakfast. [place] [facility]FORMIN 2021-0 Yes [id number] 1000mg Take 1 [facility] 1,000 mg 5-02 tablet by [facility] of tablet 00:00: mouth [place] 00 daily. [facility] glimepiride 2021-0 Yes [id number] 2mg Take 1 [facility] 2 mg tablet 5-02 tablet by [facility] of 00:00: mouth [place] 00 daily with Medical breakfast. [place] [facility]FORMIN 2021-0 Yes [id number] 1000mg Take 1 [facility] 1,000 mg 5-02 tablet by [facility] of tablet 00:00: mouth [place] 00 daily. [facility] glimepiride 2021-0 Yes [id number] 2mg Take 1 [facility] 2 mg tablet 5-02 tablet by [facility] of 00:00: mouth [place] 00 daily with Medical breakfast. [facility]FORMIN 2021-0 Yes [id number] 1000mg Take 1 [facility] 1,000 mg 5-02 tablet by [facility] of tablet 00:00: mouth [place] 00 daily. [facility] glimepiride 2021-0 Yes [id number] 2mg Take 1 [facility] 2 mg tablet 5-02 tablet by [facility] of 00:00: mouth [place] 00 daily with Medical breakfast. [place] [facility]FORMIN 2021-0 Yes [id number] 1000mg Take 1 [facility] 1,000 mg 5-02 tablet by [facility] of tablet 00:00: mouth [place] 00 daily. [facility] glimepiride 2021-0 Yes [id number] 2mg Take 1 [facility] 2 mg tablet 5-02 tablet by [facility] of 00:00: mouth [place] 00 daily with Medical breakfast. [place] [facility]FORMIN 2021-0 Yes [id number] 1000mg Take 1 [facility] 1,000 mg 5-02 tablet by [facility] of tablet 00:00: mouth [place] 00 daily. [facility] glimepiride 2021-0 Yes [id number] 2mg Take 1 [facility] 2 mg tablet 5-02 tablet by [facility] of 00:00: mouth [place] 00 daily with Medical breakfast. [place] [facility]FORMIN 2021-0 Yes [id number] 1000mg Take 1 [facility] 1,000 mg 5-02 tablet by [facility] of tablet 00:00: mouth [place] 00 daily. [facility] glimepiride 2021-0 Yes [id number] 2mg Take 1 [facility] 2 mg tablet 5-02 tablet by [facility] of 00:00: mouth [place] 00 daily with Medical breakfast. [place] [facility]FORMIN 2021-0 Yes [id number] 1000mg Take 1 [facility] 1,000 mg 5-02 tablet by [facility] of tablet 00:00: mouth [place] 00 daily. [facility] glimepiride 2021-0 Yes [id number] 2mg Take 1 [facility] 2 mg tablet 5-02 tablet by [facility] of 00:00: mouth [place] 00 daily with Medical breakfast. [place] [facility]FORMIN 2021-0 Yes [id number] 1000mg Take 1 [facility] 1,000 mg 5-02 tablet by [facility] of tablet 00:00: mouth [place] 00 daily. [facility] glimepiride 2021-0 Yes [id number] 2mg Take 1 [facility] 2 mg tablet 5-02 tablet by [facility] of 00:00: mouth [place] 00 daily with Medical breakfast. [facility]FORMIN 2021-0 Yes [id number] 1000mg Take 1 [facility] 1,000 mg 5-02 tablet by [facility] of tablet 00:00: mouth [place] 00 daily. [facility] glimepiride 2021-0 Yes [id number] 2mg Take 1 [facility] 2 mg tablet 5-02 tablet by [facility] of 00:00: mouth [place] 00 daily with Medical breakfast. [facility] metFORMIN 2021-0 Yes [id number] 1000mg Take 1 [facility] 1,000 mg 5-02 tablet by [facility] of tablet 00:00: mouth [place] 00 daily. [facility] glimepiride 2021-0 Yes [id number] 2mg Take 1 [facility] 2 mg tablet 5-02 tablet by [facility] of 00:00: mouth [place] 00 daily with Medical breakfast. [place] [facility]FORMIN 2021-0 Yes [id number] 1000mg Take 1 [facility] 1,000 mg 5-02 tablet by [facility] of tablet 00:00: mouth [place] 00 daily. [facility] glimepiride 2021-0 Yes [id number] 2mg Take 1 [facility] 2 mg tablet 5-02 tablet by [facility] of 00:00: mouth [place] 00 daily with Medical breakfast. [place] [facility]FORMIN 2021-0 Yes [id number] 1000mg Take 1 [facility] 1,000 mg 5-02 tablet by [facility] of tablet 00:00: mouth [place] 00 daily. [facility] glimepiride 2021-0 Yes [id number] 2mg Take 1 [facility] 2 mg tablet 5-02 tablet by [facility] of 00:00: mouth [place] 00 daily with Medical breakfast. [place] [facility]FORMIN 2021-0 Yes [id number] 1000mg Take 1 [facility] 1,000 mg 5-02 tablet by [facility] of tablet 00:00: mouth [place] 00 daily. [facility] glimepiride 2021-0 Yes [id number] 2mg Take 1 [facility] 2 mg tablet 5-02 tablet by [facility] of 00:00: mouth [place] 00 daily with Medical breakfast. [place] [facility]FORMIN 2021-0 Yes [id number] 1000mg Take 1 [facility] 1,000 mg 5-02 tablet by [facility] of tablet 00:00: mouth [place] 00 daily. [facility] glimepiride 2021-0 Yes [id number] 2mg Take 1 [facility] 2 mg tablet 5-02 tablet by [facility] of 00:00: mouth [place] 00 daily with Medical breakfast. [place] [facility]FORMIN 2021-0 Yes [id number] 1000mg Take 1 [facility] 1,000 mg 5-02 tablet by [facility] of tablet 00:00: mouth [place] 00 daily. [facility] glimepiride 2021-0 Yes [id number] 2mg Take 1 [facility] 2 mg tablet 5-02 tablet by [facility] of 00:00: mouth [place] 00 daily with Medical breakfast. [facility] metFORMIN 2021-0 Yes [id number] 1000mg Take 1 [facility] 1,000 mg 5-02 tablet by [facility] of tablet 00:00: mouth [place] 00 daily. [facility] glimepiride 2021-0 Yes [id number] 2mg Take 1 [facility] 2 mg tablet 5-02 tablet by [facility] of 00:00: mouth [place] 00 daily with Medical breakfast. [facility]FORMIN 2021-0 Yes [id number] 1000mg Take 1 [facility] 1,000 mg 5-02 tablet by [facility] of tablet 00:00: mouth [place] 00 daily. [facility] glimepiride 2021-0 Yes [id number] 2mg Take 1 [facility] 2 mg tablet 5-02 tablet by [facility] of 00:00: mouth [place] 00 daily with Medical breakfast. [place] [facility]FORMIN 2021-0 Yes [id number] 1000mg Take 1 [facility] 1,000 mg 5-02 tablet by [facility] of tablet 00:00: mouth [place] 00 daily. [facility] glimepiride 2021-0 Yes [id number] 2mg Take 1 [facility] 2 mg tablet 5-02 tablet by [facility] of 00:00: mouth [place] 00 daily with Medical breakfast. [place] metFORMIN 2021-0 Yes [id number] 1000mg Take 1 [facility] 1,000 mg 5-02 tablet by [facility] of tablet 00:00: mouth [place] 00 daily. [facility] glimepiride 2021-0 Yes [id number] 2mg Take 1 [facility] 2 mg tablet 5-02 tablet by [facility] of 00:00: mouth [place] 00 daily with Medical breakfast. [place] metFORMIN 2021-0 Yes [id number] 1000mg Take 1 [facility] 1,000 mg 5-02 tablet by [facility] of tablet 00:00: mouth [place] 00 daily. [facility] glimepiride 2021-0 Yes [id number] 2mg Take 1 [facility] 2 mg tablet 5-02 tablet by [facility] of 00:00: mouth [place] 00 daily with Medical breakfast. [place] [facility]FORMIN 2021-0 Yes [id number] 1000mg Take 1 [facility] 1,000 mg 5-02 tablet by [facility] of tablet 00:00: mouth [place] 00 daily. [facility] glimepiride 2021-0 Yes [id number] 2mg Take 1 [facility] 2 mg tablet 5-02 tablet by [facility] of 00:00: mouth [place] 00 daily with Medical breakfast. [facility]FORMIN 2021-0 Yes [id number] 1000mg Take 1 [facility] 1,000 mg 5-02 tablet by [facility] of tablet 00:00: mouth [place] 00 daily. [facility] glimepiride 2021-0 Yes [id number] 2mg Take 1 [facility] 2 mg tablet 5-02 tablet by [facility] of 00:00: mouth [place] 00 daily with Medical breakfast. [place] [facility]FORMIN 2021-0 Yes [id number] 1000mg Take 1 [facility] 1,000 mg 5-02 tablet by [facility] of tablet 00:00: mouth [place] 00 daily. [facility] glimepiride 2021-0 Yes [id number] 2mg Take 1 [facility] 2 mg tablet 5-02 tablet by [facility] of 00:00: mouth [place] 00 daily with Medical breakfast. [place] [facility]FORMIN 2021-0 Yes [id number] 1000mg Take 1 [facility] 1,000 mg 5-02 tablet by [facility] of tablet 00:00: mouth [place] 00 daily. [facility] glimepiride 2021-0 Yes [id number] 2mg Take 1 [facility] 2 mg tablet 5-02 tablet by [facility] of 00:00: mouth [place] 00 daily with Medical breakfast. [place] metFORMIN 2021-0 Yes [id number] 1000mg Take 1 [facility] 1,000 mg 5-02 tablet by [facility] of tablet 00:00: mouth [place] 00 daily. [facility] glimepiride 2021-0 Yes [id number] 2mg Take 1 [facility] 2 mg tablet 5-02 tablet by [facility] of 00:00: mouth [place] 00 daily with Medical breakfast. [place] metFORMIN 2021-0 Yes [id number] 1000mg Take 1 [facility] 1,000 mg 5-02 tablet by [facility] of tablet 00:00: mouth [place] 00 daily. [facility] glimepiride 2021-0 Yes [id number] 2mg Take 1 [facility] 2 mg tablet 5-02 tablet by [facility] of 00:00: mouth [place] 00 daily with Medical breakfast. [place] [facility]FORMIN 2021-0 Yes [id number] 1000mg Take 1 [facility] 1,000 mg 5-02 tablet by [facility] of tablet 00:00: mouth [place] 00 daily. [facility] glimepiride 2021-0 Yes [id number] 2mg Take 1 [facility] 2 mg tablet 5-02 tablet by [facility] of 00:00: mouth [place] 00 daily with Medical breakfast. [facility]FORMIN 2021-0 Yes [id number] 1000mg Take 1 [facility] 1,000 mg 5-02 tablet by [facility] of tablet 00:00: mouth [place] 00 daily. [facility] glimepiride 2021-0 Yes [id number] 2mg Take 1 [facility] 2 mg tablet 5-02 tablet by [facility] of 00:00: mouth [place] 00 daily with Medical breakfast. [place] metFORMIN 2021-0 Yes [id number] 1000mg Take 1 [facility] 1,000 mg 5-02 tablet by [facility] of tablet 00:00: mouth [place] 00 daily. [facility] glimepiride 2021-0 Yes [id number] 2mg Take 1 [facility] 2 mg tablet 5-02 tablet by [facility] of 00:00: mouth [place] 00 daily with Medical breakfast. [place] metFORMIN 2021-0 Yes [id number] 1000mg Take 1 [facility] 1,000 mg 5-02 tablet by [facility] of tablet 00:00: mouth [place] 00 daily. [facility] glimepiride 2021-0 Yes [id number] 2mg Take 1 [facility] 2 mg tablet 5-02 tablet by [facility] of 00:00: mouth [place] 00 daily with Medical breakfast. [place] metFORMIN 2021-0 Yes [id number] 1000mg Take 1 [facility] 1,000 mg 5-02 tablet by [facility] of tablet 00:00: mouth [place] 00 daily. [facility] glimepiride 2021-0 Yes [id number] 2mg Take 1 [facility] 2 mg tablet 5-02 tablet by [facility] of 00:00: mouth [place] 00 daily with Medical breakfast. [place] metFORMIN 2021-0 Yes [id number] 1000mg Take 1 [facility] 1,000 mg 5-02 tablet by [facility] of tablet 00:00: mouth [place] 00 daily. [facility] glimepiride 2021-0 Yes [id number] 2mg Take 1 [facility] 2 mg tablet 5-02 tablet by [facility] of 00:00: mouth [place] 00 daily with Medical breakfast. [place] metFORMIN 2021-0 Yes [id number] 1000mg Take 1 [facility] 1,000 mg 5-02 tablet by [facility] of tablet 00:00: mouth [place] 00 daily. [facility] glimepiride 2021-0 Yes [id number] 2mg Take 1 [facility] 2 mg tablet 5-02 tablet by [facility] of 00:00: mouth [place] 00 daily with Medical breakfast. [facility]FORMIN 2021-0 Yes [id number] 1000mg Take 1 [facility] 1,000 mg 5-02 tablet by [facility] of tablet 00:00: mouth [place] 00 daily. [facility] glimepiride 2021-0 Yes [id number] 2mg Take 1 [facility] 2 mg tablet 5-02 tablet by [facility] of 00:00: mouth [place] 00 daily with Medical breakfast. [facility] metFORMIN 2021-0 Yes [id number] 1000mg Take 1 [facility] 1,000 mg 5-02 tablet by [facility] of tablet 00:00: mouth [place] 00 daily. [facility] glimepiride 2021-0 Yes [id number] 2mg Take 1 [facility] 2 mg tablet 5-02 tablet by [facility] of 00:00: mouth [place] 00 daily with Medical breakfast. [place] metFORMIN 2021-0 Yes [id number] 1000mg Take 1 [facility] 1,000 mg 5-02 tablet by [facility] of tablet 00:00: mouth [place] 00 daily. [facility] glimepiride 2021-0 Yes [id number] 2mg Take 1 [facility] 2 mg tablet 5-02 tablet by [facility] of 00:00: mouth [place] 00 daily with Medical breakfast. [place] metFORMIN 2021-0 Yes [id number] 1000mg Take 1 [facility] 1,000 mg 5-02 tablet by [facility] of tablet 00:00: mouth [place] 00 daily. [facility] glimepiride 2021-0 Yes [id number] 2mg Take 1 [facility] 2 mg tablet 5-02 tablet by [facility] of 00:00: mouth [place] 00 daily with Medical breakfast. [place] metFORMIN 2021-0 Yes [id number] 1000mg Take 1 [facility] 1,000 mg 5-02 tablet by [facility] of tablet 00:00: mouth [place] 00 daily. [facility] glimepiride 2021-0 Yes [id number] 2mg Take 1 [facility] 2 mg tablet 5-02 tablet by [facility] of 00:00: mouth [place] 00 daily with Medical breakfast. [place] metFORMIN 2021-0 Yes [id number] 1000mg Take 1 [facility] 1,000 mg 5-02 tablet by [facility] of tablet 00:00: mouth [place] 00 daily. [facility] glimepiride 2021-0 Yes [id number] 2mg Take 1 [facility] 2 mg tablet 5-02 tablet by [facility] of 00:00: mouth [place] 00 daily with Medical breakfast. [place] metFORMIN 2021-0 Yes [id number] 1000mg Take 1 [facility] 1,000 mg 5-02 tablet by [facility] of tablet 00:00: mouth [place] 00 daily. [facility] glimepiride 2021-0 Yes [id number] 2mg Take 1 [facility] 2 mg tablet 5-02 tablet by [facility] of 00:00: mouth [place] 00 daily with Medical breakfast. [facility] metFORMIN 2021-0 Yes [id number] 1000mg Take 1 [facility] 1,000 mg 5-02 tablet by [facility] of tablet 00:00: mouth [place] 00 daily. [facility] glimepiride 2021-0 Yes [id number] 2mg Take 1 [facility] 2 mg tablet 5-02 tablet by [facility] of 00:00: mouth [place] 00 daily with Medical breakfast. [facility]FORMIN 2021-0 Yes [id number] 1000mg Take 1 [facility] 1,000 mg 5-02 tablet by [facility] of tablet 00:00: mouth [place] 00 daily. [facility] glimepiride 2021-0 Yes [id number] 2mg Take 1 [facility] 2 mg tablet 5-02 tablet by [facility] of 00:00: mouth [place] 00 daily with Medical breakfast. [place] [facility]FORMIN 2021-0 Yes [id number] 1000mg Take 1 [facility] 1,000 mg 5-02 tablet by [facility] of tablet 00:00: mouth [place] 00 daily. [facility] glimepiride 2021-0 Yes [id number] 2mg Take 1 [facility] 2 mg tablet 5-02 tablet by [facility] of 00:00: mouth [place] 00 daily with Medical breakfast. [place] metFORMIN 2021-0 Yes [id number] 1000mg Take 1 [facility] 1,000 mg 5-02 tablet by [facility] of tablet 00:00: mouth [place] 00 daily. [facility] glimepiride 2021-0 Yes [id number] 2mg Take 1 [facility] 2 mg tablet 5-02 tablet by [facility] of 00:00: mouth [place] 00 daily with Medical breakfast. [place] metFORMIN 2021-0 Yes [id number] 1000mg Take 1 [facility] 1,000 mg 5-02 tablet by [facility] of tablet 00:00: mouth [place] 00 daily. [facility] glimepiride 2021-0 Yes [id number] 2mg Take 1 [facility] 2 mg tablet 5-02 tablet by [facility] of 00:00: mouth [place] 00 daily with Medical breakfast. [place] metFORMIN 2021-0 Yes [id number] 1000mg Take 1 [facility] 1,000 mg 5-02 tablet by [facility] of tablet 00:00: mouth [place] 00 daily. [facility] glimepiride 2021-0 Yes [id number] 2mg Take 1 [facility] 2 mg tablet 5-02 tablet by [facility] of 00:00: mouth [place] 00 daily with Medical breakfast. [facility]FORMIN 2021-0 Yes [id number] 1000mg Take 1 [facility] 1,000 mg 5-02 tablet by [facility] of tablet 00:00: mouth [place] 00 daily. [facility] glimepiride 2021-0 Yes [id number] 2mg Take 1 [facility] 2 mg tablet 5-02 tablet by [facility] of 00:00: mouth [place] 00 daily with Medical breakfast. [place] metFORMIN 2021-0 Yes [id number] 1000mg Take 1 [facility] 1,000 mg 5-02 tablet by [facility] of tablet 00:00: mouth [place] 00 daily. [facility] glimepiride 2021-0 Yes [id number] 2mg Take 1 [facility] 2 mg tablet 5-02 tablet by [facility] of 00:00: mouth [place] 00 daily with Medical breakfast. [place] [facility]FORMIN 2021-0 Yes [id number] 1000mg Take 1 [facility] 1,000 mg 5-02 tablet by [facility] of tablet 00:00: mouth [place] 00 daily. [facility] glimepiride 2021-0 Yes [id number] 2mg Take 1 [facility] 2 mg tablet 5-02 tablet by [facility] of 00:00: mouth [place] 00 daily with Medical breakfast. [place] [facility]FORMIN 2021-0 Yes [id number] 1000mg Take 1 [facility] 1,000 mg 5-02 tablet by [facility] of tablet 00:00: mouth [place] 00 daily. [facility] glimepiride 2021-0 Yes [id number] 2mg Take 1 [facility] 2 mg tablet 5-02 tablet by [facility] of 00:00: mouth [place] 00 daily with Medical breakfast. [place] [facility]FORMIN 2021-0 Yes [id number] 1000mg Take 1 [facility] 1,000 mg 5-02 tablet by [facility] of tablet 00:00: mouth [place] 00 daily. [facility] glimepiride 2021-0 Yes [id number] 2mg Take 1 [facility] 2 mg tablet 5-02 tablet by [facility] of 00:00: mouth [place] 00 daily with Medical breakfast. [place] [facility]FORMIN 2021-0 Yes [id number] 1000mg Take 1 [facility] 1,000 mg 5-02 tablet by [facility] of tablet 00:00: mouth [place] 00 daily. [facility] glimepiride 2021-0 Yes [id number] 2mg Take 1 [facility] 2 mg tablet 5-02 tablet by [facility] of 00:00: mouth [place] 00 daily with Medical breakfast. [facility]FORMIN 2021-0 Yes [id number] 1000mg Take 1 [facility] 1,000 mg 5-02 tablet by [facility] of tablet 00:00: mouth [place] 00 daily. [facility] glimepiride 2021-0 Yes [id number] 2mg Take 1 [facility] 2 mg tablet 5-02 tablet by [facility] of 00:00: mouth [place] 00 daily with Medical breakfast. [place] [facility]FORMIN 2021-0 Yes [id number] 1000mg Take 1 [facility] 1,000 mg 5-02 tablet by [facility] of tablet 00:00: mouth [place] 00 daily. [facility] glimepiride 2021-0 Yes [id number] 2mg Take 1 [facility] 2 mg tablet 5-02 tablet by [facility] of 00:00: mouth [place] 00 daily with Medical breakfast. [place] [facility]FORMIN 2021-0 Yes [id number] 1000mg Take 1 [facility] 1,000 mg 5-02 tablet by [facility] of tablet 00:00: mouth [place] 00 daily. [facility] glimepiride 2021-0 Yes [id number] 2mg Take 1 [facility] 2 mg tablet 5-02 tablet by [facility] of 00:00: mouth [place] 00 daily with Medical breakfast. [place] [facility]FORMIN 2021-0 Yes [id number] 1000mg Take 1 [facility] 1,000 mg 5-02 tablet by [facility] of tablet 00:00: mouth [place] 00 daily. [facility] glimepiride 2021-0 Yes [id number] 2mg Take 1 [facility] 2 mg tablet 5-02 tablet by [facility] of 00:00: mouth [place] 00 daily with Medical breakfast. [place] [facility]FORMIN 2021-0 Yes [id number] 1000mg Take 1 [facility] 1,000 mg 5-02 tablet by [facility] of tablet 00:00: mouth [place] 00 daily. [facility] glimepiride 2021-0 Yes [id number] 2mg Take 1 [facility] 2 mg tablet 5-02 tablet by [facility] of 00:00: mouth [place] 00 daily with Medical breakfast. [place] [facility]FORMIN 2021-0 Yes [id number] 1000mg Take 1 [facility] 1,000 mg 5-02 tablet by [facility] of tablet 00:00: mouth [place] 00 daily. [facility] glimepiride 2021-0 Yes [id number] 2mg Take 1 [facility] 2 mg tablet 5-02 tablet by [facility] of 00:00: mouth [place] 00 daily with Medical breakfast. Branch metFORMIN 2021-0 Yes [id number] 1000mg Take 1 [facility] 1,000 mg 5-02 tablet by ity of tablet 00:00: mouth [place] 00 daily. [facility] Branch glimepiride 2021-0 Yes [id number] 2mg Take 1 [facility] 2 mg tablet 5-02 tablet by ity of 00:00: mouth [place] 00 daily with Medical breakfast. Branch metFORMIN 2021-0 Yes [id number] 1000mg Take 1 [facility] 1,000 mg 5-02 tablet by ity of tablet 00:00: mouth [place] 00 daily. [facility] glimepiride 2021-0 Yes [id number] 2mg Take 1 [facility] 2 mg tablet 5-02 tablet by ity of 00:00: mouth [place] 00 daily with Medical breakfast. [place] metFORMIN 2021-0 Yes [id number] 1000mg Take 1 [facility] 1,000 mg 5-02 tablet by ity of tablet 00:00: mouth [place] 00 daily. [facility] glimepiride 2021-0 Yes [id number] 2mg Take 1 [facility] 2 mg tablet 5-02 tablet by ity of 00:00: mouth [place] 00 daily with Medical breakfast. [place] metFORMIN 2021-0 Yes [id number] 1000mg Take 1 [facility] 1,000 mg 5-02 tablet by ity of tablet 00:00: mouth [place] 00 daily. [facility] glimepiride 2021-0 Yes [id number] 2mg Take 1 [facility] 2 mg tablet 5-02 tablet by ity of 00:00: mouth [place] 00 daily with Medical breakfast. [place] metFORMIN 2021-0 Yes [id number] 1000mg Take 1 [facility] 1,000 mg 5-02 tablet by ity of tablet 00:00: mouth [place] 00 daily. [facility] glimepiride 2021-0 Yes [id number] 2mg Take 1 [facility] 2 mg tablet 5-02 tablet by ity of 00:00: mouth [place] 00 daily with Medical breakfast. [place] metFORMIN 2021-0 Yes [id number] 1000mg Take 1 [facility] 1,000 mg 5-02 tablet by ity of tablet 00:00: mouth [place] 00 daily. [facility] glimepiride 2021-0 Yes [id number] 2mg Take 1 [facility] 2 mg tablet 5-02 tablet by ity of 00:00: mouth [place] 00 daily with Medical breakfast. [place] metFORMIN 2021-0 Yes [id number] 1000mg Take 1 [facility] 1,000 mg 5-02 tablet by ity of tablet 00:00: mouth [place] 00 daily. [facility] Branch glimepiride 2021-0 Yes [id number] 2mg Take 1 [facility] 2 mg tablet 5-02 tablet by ity of 00:00: mouth [place] 00 daily with Medical breakfast. Branch metFORMIN 2021-0 Yes [id number] 1000mg Take 1 [facility] 1,000 mg 5-02 tablet by ity of tablet 00:00: mouth [place] 00 daily. [facility] glimepiride 2021-0 Yes [id number] 2mg Take 1 [facility] 2 mg tablet 5-02 tablet by ity of 00:00: mouth [place] 00 daily with Medical breakfast. Branch metFORMIN 2021-0 Yes [id number] 1000mg Take 1 [facility] 1,000 mg 5-02 tablet by ity of tablet 00:00: mouth [place] 00 daily. [facility] glimepiride 2021-0 Yes [id number] 2mg Take 1 [facility] 2 mg tablet 5-02 tablet by ity of 00:00: mouth [place] 00 daily with Medical breakfast. [place] metFORMIN 2021-0 Yes [id number] 1000mg Take 1 [facility] 1,000 mg 5-02 tablet by ity of tablet 00:00: mouth [place] 00 daily. [facility] glimepiride 2021-0 Yes [id number] 2mg Take 1 [facility] 2 mg tablet 5-02 tablet by ity of 00:00: mouth [place] 00 daily with Medical breakfast. [place] metFORMIN 2021-0 Yes [id number] 1000mg Take 1 [facility] 1,000 mg 5-02 tablet by ity of tablet 00:00: mouth [place] 00 daily. [facility] glimepiride 2021-0 Yes [id number] 2mg Take 1 [facility] 2 mg tablet 5-02 tablet by ity of 00:00: mouth [place] 00 daily with Medical breakfast. [place] metFORMIN 2021-0 Yes [id number] 1000mg Take 1 [facility] 1,000 mg 5-02 tablet by ity of tablet 00:00: mouth [place] 00 daily. [facility] glimepiride 2021-0 Yes [id number] 2mg Take 1 [facility] 2 mg tablet 5-02 tablet by ity of 00:00: mouth [place] 00 daily with Medical breakfast. [place] metFORMIN 2021-0 Yes [id number] 1000mg Take 1 [facility] 1,000 mg 5-02 tablet by ity of tablet 00:00: mouth [place] 00 daily. [facility] glimepiride 2021-0 Yes [id number] 2mg Take 1 [facility] 2 mg tablet 5-02 tablet by ity of 00:00: mouth [place] 00 daily with Medical breakfast. Branch metFORMIN 2021-0 Yes [id number] 1000mg Take 1 [facility] 1,000 mg 5-02 tablet by ity of tablet 00:00: mouth [place] 00 daily. [facility] glimepiride 2021-0 Yes [id number] 2mg Take 1 [facility] 2 mg tablet 5-02 tablet by ity of 00:00: mouth [place] 00 daily with Medical breakfast. [place] metFORMIN 2021-0 Yes [id number] 1000mg Take 1 [facility] 1,000 mg 5-02 tablet by ity of tablet 00:00: mouth [place] 00 daily. [facility] glimepiride 2021-0 Yes [id number] 2mg Take 1 [facility] 2 mg tablet 5-02 tablet by ity of 00:00: mouth [place] 00 daily with Medical breakfast. [place] metFORMIN 2021-0 Yes [id number] 1000mg Take 1 [facility] 1,000 mg 5-02 tablet by ity of tablet 00:00: mouth [place] 00 daily. [facility] glimepiride 2021-0 Yes [id number] 2mg Take 1 [facility] 2 mg tablet 5-02 tablet by ity of 00:00: mouth [place] 00 daily with Medical breakfast. [place] metFORMIN 2021-0 Yes [id number] 1000mg Take 1 [facility] 1,000 mg 5-02 tablet by ity of tablet 00:00: mouth [place] 00 daily. [facility] glimepiride 2021-0 Yes [id number] 2mg Take 1 [facility] 2 mg tablet 5-02 tablet by ity of 00:00: mouth [place] 00 daily with Medical breakfast. [place] metFORMIN 2021-0 Yes [id number] 1000mg Take 1 [facility] 1,000 mg 5-02 tablet by ity of tablet 00:00: mouth [place] 00 daily. [facility] glimepiride 2021-0 Yes [id number] 2mg Take 1 [facility] 2 mg tablet 5-02 tablet by ity of 00:00: mouth [place] 00 daily with Medical breakfast. [place] metFORMIN 2021-0 Yes [id number] 1000mg Take 1 [facility] 1,000 mg 5-02 tablet by ity of tablet 00:00: mouth [place] 00 daily. [facility] glimepiride 2021-0 Yes [id number] 2mg Take 1 [facility] 2 mg tablet 5-02 tablet by ity of 00:00: mouth [place] 00 daily with Medical breakfast. Branch metFORMIN 2021-0 Yes [id number] 1000mg Take 1 [facility] 1,000 mg 5-02 tablet by ity of tablet 00:00: mouth [place] 00 daily. [facility] glimepiride 2021-0 Yes [id number] 2mg Take 1 [facility] 2 mg tablet 5-02 tablet by ity of 00:00: mouth [place] 00 daily with Medical breakfast. [place] metFORMIN 2021-0 Yes [id number] 1000mg Take 1 [facility] 1,000 mg 5-02 tablet by ity of tablet 00:00: mouth [place] 00 daily. [facility] glimepiride 2021-0 Yes [id number] 2mg Take 1 [facility] 2 mg tablet 5-02 tablet by ity of 00:00: mouth [place] 00 daily with Medical breakfast. [place] metFORMIN 2021-0 Yes [id number] 1000mg Take 1 [facility] 1,000 mg 5-02 tablet by ity of tablet 00:00: mouth [place] 00 daily. [facility] glimepiride 2021-0 Yes [id number] 2mg Take 1 [facility] 2 mg tablet 5-02 tablet by ity of 00:00: mouth [place] 00 daily with Medical breakfast. [place] metFORMIN 2021-0 Yes [id number] 1000mg Take 1 [facility] 1,000 mg 5-02 tablet by ity of tablet 00:00: mouth [place] 00 daily. [facility] glimepiride 2021-0 Yes [id number] 2mg Take 1 [facility] 2 mg tablet 5-02 tablet by ity of 00:00: mouth [place] 00 daily with Medical breakfast. [place] metFORMIN 2021-0 Yes [id number] 1000mg Take 1 [facility] 1,000 mg 5-02 tablet by ity of tablet 00:00: mouth [place] 00 daily. [facility] glimepiride 2021-0 Yes [id number] 2mg Take 1 [facility] 2 mg tablet 5-02 tablet by ity of 00:00: mouth [place] 00 daily with Medical breakfast. [place] metFORMIN 2021-0 Yes [id number] 1000mg Take 1 [facility] 1,000 mg 5-02 tablet by ity of tablet 00:00: mouth [place] 00 daily. [facility] glimepiride 2021-0 Yes [id number] 2mg Take 1 [facility] 2 mg tablet 5-02 tablet by ity of 00:00: mouth [place] 00 daily with Medical breakfast. Branch metFORMIN 2021-0 Yes [id number] 1000mg Take 1 [facility] 1,000 mg 5-02 tablet by ity of tablet 00:00: mouth [place] 00 daily. [facility] Branch glimepiride 2021-0 Yes [id number] 2mg Take 1 [facility] 2 mg tablet 5-02 tablet by ity of 00:00: mouth [place] 00 daily with Medical breakfast. Branch metFORMIN 2021-0 Yes [id number] 1000mg Take 1 [facility] 1,000 mg 5-02 tablet by ity of tablet 00:00: mouth [place] 00 daily. [facility] glimepiride 2021-0 Yes [id number] 2mg Take 1 [facility] 2 mg tablet 5-02 tablet by ity of 00:00: mouth [place] 00 daily with Medical breakfast. [place] metFORMIN 2021-0 Yes [id number] 1000mg Take 1 [facility] 1,000 mg 5-02 tablet by ity of tablet 00:00: mouth [place] 00 daily. [facility] glimepiride 2021-0 Yes [id number] 2mg Take 1 [facility] 2 mg tablet 5-02 tablet by ity of 00:00: mouth [place] 00 daily with Medical breakfast. [place] metFORMIN 2021-0 Yes [id number] 1000mg Take 1 [facility] 1,000 mg 5-02 tablet by ity of tablet 00:00: mouth [place] 00 daily. [facility] glimepiride 2021-0 Yes [id number] 2mg Take 1 [facility] 2 mg tablet 5-02 tablet by ity of 00:00: mouth [place] 00 daily with Medical breakfast. [place] metFORMIN 2021-0 Yes [id number] 1000mg Take 1 [facility] 1,000 mg 5-02 tablet by ity of tablet 00:00: mouth [place] 00 daily. [facility] glimepiride 2021-0 Yes [id number] 2mg Take 1 [facility] 2 mg tablet 5-02 tablet by ity of 00:00: mouth [place] 00 daily with Medical breakfast. [place] metFORMIN 2021-0 Yes [id number] 1000mg Take 1 [facility] 1,000 mg 5-02 tablet by ity of tablet 00:00: mouth [place] 00 daily. [facility] glimepiride 2021-0 Yes [id number] 2mg Take 1 [facility] 2 mg tablet 5-02 tablet by ity of 00:00: mouth [place] 00 daily with Medical breakfast. [place] metFORMIN 2021-0 Yes [id number] 1000mg Take 1 [facility] 1,000 mg 5-02 tablet by ity of tablet 00:00: mouth [place] 00 daily. [facility] Branch glimepiride 2021-0 Yes [id number] 2mg Take 1 [facility] 2 mg tablet 5-02 tablet by ity of 00:00: mouth [place] 00 daily with Medical breakfast. Branch metFORMIN 2021-0 Yes [id number] 1000mg Take 1 [facility] 1,000 mg 5-02 tablet by ity of tablet 00:00: mouth [place] 00 daily. [facility] glimepiride 2021-0 Yes [id number] 2mg Take 1 [facility] 2 mg tablet 5-02 tablet by ity of 00:00: mouth [place] 00 daily with Medical breakfast. Branch metFORMIN 2021-0 Yes [id number] 1000mg Take 1 [facility] 1,000 mg 5-02 tablet by ity of tablet 00:00: mouth [place] 00 daily. [facility] glimepiride 2021-0 Yes [id number] 2mg Take 1 [facility] 2 mg tablet 5-02 tablet by ity of 00:00: mouth [place] 00 daily with Medical breakfast. [place] metFORMIN 2021-0 Yes [id number] 1000mg Take 1 [facility] 1,000 mg 5-02 tablet by ity of tablet 00:00: mouth [place] 00 daily. [facility] glimepiride 2021-0 Yes [id number] 2mg Take 1 [facility] 2 mg tablet 5-02 tablet by ity of 00:00: mouth [place] 00 daily with Medical breakfast. [place] metFORMIN 2021-0 Yes [id number] 1000mg Take 1 [facility] 1,000 mg 5-02 tablet by ity of tablet 00:00: mouth [place] 00 daily. [facility] glimepiride 2021-0 Yes [id number] 2mg Take 1 [facility] 2 mg tablet 5-02 tablet by ity of 00:00: mouth [place] 00 daily with Medical breakfast. [place] metFORMIN 2021-0 Yes [id number] 1000mg Take 1 [facility] 1,000 mg 5-02 tablet by ity of tablet 00:00: mouth [place] 00 daily. [facility] glimepiride 2021-0 Yes [id number] 2mg Take 1 [facility] 2 mg tablet 5-02 tablet by ity of 00:00: mouth [place] 00 daily with Medical breakfast. [place] metFORMIN 2021-0 Yes [id number] 1000mg Take 1 [facility] 1,000 mg 5-02 tablet by ity of tablet 00:00: mouth [place] 00 daily. [facility] glimepiride 2021-0 Yes [id number] 2mg Take 1 [facility] 2 mg tablet 5-02 tablet by ity of 00:00: mouth [place] 00 daily with Medical breakfast. [place] metFORMIN 2021-0 Yes [id number] 1000mg Take 1 [facility] 1,000 mg 5-02 tablet by ity of tablet 00:00: mouth [place] 00 daily. [facility] glimepiride 2021-0 Yes [id number] 2mg Take 1 [facility] 2 mg tablet 5-02 tablet by ity of 00:00: mouth [place] 00 daily with Medical breakfast. [place] metFORMIN 2021-0 Yes [id number] 1000mg Take 1 [facility] 1,000 mg 5-02 tablet by ity of tablet 00:00: mouth [place] 00 daily. [facility] glimepiride 2021-0 Yes [id number] 2mg Take 1 [facility] 2 mg tablet 5-02 tablet by ity of 00:00: mouth [place] 00 daily with Medical breakfast. [place] metFORMIN 2021-0 Yes [id number] 1000mg Take 1 [facility] 1,000 mg 5-02 tablet by ity of tablet 00:00: mouth [place] 00 daily. [facility] glimepiride 2021-0 Yes [id number] 2mg Take 1 [facility] 2 mg tablet 5-02 tablet by ity of 00:00: mouth [place] 00 daily with Medical breakfast. [place] metFORMIN 2021-0 Yes [id number] 1000mg Take 1 [facility] 1,000 mg 5-02 tablet by ity of tablet 00:00: mouth [place] 00 daily. [facility] metFORMIN 2021-0 Yes [id number] 1000mg Take 1 [facility] 1,000 mg 5-02 tablet by ity of tablet 00:00: mouth [place] 00 daily. [facility] metFORMIN 2021-0 Yes [id number] 1000mg Take 1 [facility] 1,000 mg 5-02 tablet by ity of tablet 00:00: mouth [place] 00 daily. [facility] metFORMIN 2021-0 Yes [id number] 1000mg Take 1 [facility] 1,000 mg 5-02 tablet by ity of tablet 00:00: mouth [place] 00 daily. [facility] metFORMIN 2021-0 Yes [id number] 1000mg Take 1 [facility] 1,000 mg 5-02 tablet by ity of tablet 00:00: mouth [place] 00 daily. [facility] metFORMIN 2021-0 Yes [id number] 1000mg Take 1 [facility] 1,000 mg 5-02 tablet by ity of tablet 00:00: mouth [place] 00 daily. [facility] metFORMIN 2-0 Yes [id number] 1000mg Take 1 [facility] 1,000 mg 5-02 tablet by ity of tablet 00:00: mouth [place] 00 daily. [facility] metFORMIN 2021-0 Yes [id number] 1000mg Take 1 [facility] 1,000 mg 5-02 tablet by ity of tablet 00:00: mouth [place] 00 daily. [facility] metFORMIN 2021-0 Yes [id number] 1000mg Take 1 [facility] 1,000 mg 5-02 tablet by ity of tablet 00:00: mouth [place] 00 daily. [facility] metFORMIN 2021-0 Yes [id number] 1000mg Take 1 [facility] 1,000 mg 5-02 tablet by ity of tablet 00:00: mouth [place] 00 daily. [facility] metFORMIN 2021-0 Yes [id number] 1000mg Take 1 [facility] 1,000 mg 5-02 tablet by ity of tablet 00:00: mouth [place] 00 daily. [facility] metFORMIN 2021-0 Yes [id number] 1000mg Take 1 [facility] 1,000 mg 5-02 tablet by ity of tablet 00:00: mouth [place] 00 daily. [facility] metFORMIN 2021-0 Yes [id number] 1000mg Take 1 [facility] 1,000 mg 5-02 tablet by ity of tablet 00:00: mouth [place] 00 daily. [facility] metFORMIN 2021-0 Yes [id number] 1000mg Take 1 [facility] 1,000 mg 5-02 tablet by ity of tablet 00:00: mouth [place] 00 daily. [facility] metFORMIN 2-0 Yes [id number] 1000mg Take 1 [facility] 1,000 mg 5-02 tablet by ity of tablet 00:00: mouth [place] 00 daily. [facility] metFORMIN 2021-0 Yes [id number] 1000mg Take 1 [facility] 1,000 mg 5-02 tablet by ity of tablet 00:00: mouth [place] 00 daily. [facility] metFORMIN 2-0 Yes [id number] 1000mg Take 1 [facility] 1,000 mg 5-02 tablet by ity of tablet 00:00: mouth [place] 00 daily. [facility] metFORMIN 202-0 Yes [id number] 1000mg Take 1 [facility] 1,000 mg 5-02 tablet by ity of tablet 00:00: mouth [place] 00 daily. [facility] metFORMIN 2021-0 Yes [id number] 1000mg Take 1 [facility] 1,000 mg 5-02 tablet by ity of tablet 00:00: mouth [place] 00 daily. [facility] metFORMIN 0 Yes [id number] 1000mg Take 1 [facility] 1,000 mg 5-02 tablet by ity of tablet 00:00: mouth [place] 00 daily. Medical Branch metFORMIN 0 Yes [id number] 1000mg Take 1 [facility] 1,000 mg 5-02 tablet by ity of tablet 00:00: mouth 00 daily. Medical Branch glimepiride 0 3- No [id number] 2mg Take 1 [facility] 2 mg tablet 5-04 tablet by it y of 00:00: 00:00 mouth [place] 00 :00 daily with Medical breakfast. Branch aspirin 81 Yes 325mg Take 325 Un [place]i mg EC 4-27 mg by ity of tablet 11:01: mouth. [address] Branch Cholecalcif Yes 125ug Take 125 U nivers dwight, 4-27 mcg by ity of Vitamin D3, 11:01: mouth. [place] 125 mcg 24 Medical (5,000 Branch unit) tablet aspirin Yes 325mg Take 325 Un [place] mg EC 4-27 mg by ity of tablet 11:01: mouth. [address] Branch Cholecalcif Yes 125ug Take 125 U nivers [place], 4-27 mcg by ity of Vitamin D3, 11:01: mouth. [place] 125 mcg 24 Medical (5,000 Branch unit) tablet aspirin Yes 325mg Take 325 Un [place] mg EC 4-27 mg by ity of tablet 11:01: mouth. [address] Branch Cholecalcif Yes 125ug Take 125 U nivers [place], 4-27 mcg by ity of Vitamin D3, 11:01: mouth. [place] 125 mcg 24 Medical (5,000 Branch unit) tablet aspirin 81 Yes 325mg Take 325 Un [place] mg EC 4-27 mg by ity of tablet 11:01: mouth. [address] Branch Cholecalcif Yes 125ug Take 125 U nivers [place], 4-27 mcg by ity of Vitamin D3, 11:01: mouth. [place] 125 mcg 24 Medical (5,000 Branch unit) tablet aspirin 81 Yes 325mg Take 325 Un [place] mg EC 4-27 mg by ity of tablet 11:01: mouth. [place] [address] Medical Branch Cholecalcif Yes 125ug Take 125 U nivers [place]ight, 4-27 mcg by ity of Vitamin D3, 11:01: mouth. [place] 125 mcg 24 Medical (5,000 Branch unit) tablet aspirin Yes 325mg Take 325 Un [place] mg EC 4-27 mg by ity of tablet 11:01: mouth. [address] Branch Cholecalcif Yes 125ug Take 125 U nivers [place], 4-27 mcg by ity of Vitamin D3, 11:01: mouth. [place] 125 mcg 24 Medical (5,000 Branch unit) tablet aspirin Yes 325mg Take 325 Un [place] mg EC 4-27 mg by ity of tablet 11:01: mouth. [address] Branch Cholecalcif Yes 125ug Take 125 U nivers [place], 4-27 mcg by ity of Vitamin D3, 11:01: mouth. [place] 125 mcg 24 Medical (5,000 Branch unit) tablet aspirin Yes 325mg Take 325 Un [place] mg EC 4-27 mg by ity of tablet 11:01: mouth. [address] Branch Cholecalcif Yes 125ug Take 125 U nivers [place], 4-27 mcg by ity of Vitamin D3, 11:01: mouth. [place] 125 mcg 24 Medical (5,000 Branch unit) tablet aspirin Yes 325mg Take 325 Un [place] mg EC 4-27 mg by ity of tablet 11:01: mouth. [address] Branch Cholecalcif 0 Yes 125ug Take 125 U nivers [place], 4-27 mcg by ity of Vitamin D3, 11:01: mouth. [place] 125 mcg 24 Medical (5,000 Branch unit) tablet aspirin 0 Yes 325mg Take 325 Un [place] mg EC 4-27 mg by ity of tablet 11:01: mouth. [address] Branch Cholecalcif 0 Yes 125ug Take 125 U nivers [place], 4-27 mcg by ity of Vitamin D3, 11:01: mouth. [place] 125 mcg 24 Medical (5,000 Branch unit) tablet aspirin 0 Yes 325mg Take 325 Un [place] mg EC 4-27 mg by ity of tablet 11:01: mouth. [address] Branch Cholecalcif 0 Yes 125ug Take 125 U nivers [place], 4-27 mcg by ity of Vitamin D3, 11:01: mouth. [place] 125 mcg 24 Medical (5,000 Branch unit) tablet aspirin 81 0 Yes 325mg Take 325 Un [place] mg EC 4-27 mg by ity of tablet 11:01: mouth. [address] Branch Cholecalcif 0 Yes 125ug Take 125 U nivers [place], 4-27 mcg by ity of Vitamin D3, 11:01: mouth. [place] 125 mcg 24 Medical (5,000 Branch unit) tablet aspirin 0 Yes 325mg Take 325 Un [place] mg EC 4-27 mg by ity of tablet 11:01: mouth. [address] Cholecalcif Yes 125ug Take 125 U nivers [place], 4-27 mcg by ity of Vitamin D3, 11:01: mouth. [place] 125 mcg 24 Medical (5,000 Branch unit) tablet aspirin 0 Yes 325mg Take 325 Un [place] mg EC 4-27 mg by ity of tablet 11:01: mouth. [address] Branch Cholecalcif 0 Yes 125ug Take 125 U nivers [place], 4-27 mcg by ity of Vitamin D3, 11:01: mouth. [place] 125 mcg 24 Medical (5,000 Branch unit) tablet aspirin 0 Yes 325mg Take 325 Un [place] mg EC 4-27 mg by ity of tablet 11:01: mouth. [address] Branch Cholecalcif 0 Yes 125ug Take 125 U nivers [place], 4-27 mcg by ity of Vitamin D3, 11:01: mouth. [place] 125 mcg 24 Medical (5,000 Branch unit) tablet aspirin 2021-0 Yes 325mg Take 325 Un [place] mg EC 4-27 mg by ity of tablet 11:01: mouth. [address] Branch Cholecalcif 0 Yes 125ug Take 125 U nivers [place], 4-27 mcg by ity of Vitamin D3, 11:01: mouth. [place] 125 mcg 24 Medical (5,000 Branch unit) tablet aspirin Yes 325mg Take 325 Un [place] mg EC 4-27 mg by ity of tablet 11:01: mouth. [place] [address] Medical Branch Cholecalcif Yes 125ug Take 125 U nivers [place], 4-27 mcg by ity of Vitamin D3, 11:01: mouth. [place] 125 mcg 24 Medical (5,000 Branch unit) tablet aspirin Yes 325mg Take 325 [facility] [place] mg EC 4-27 mg by ity of tablet 11:01: mouth. [place] [address] Medical Branch Cholecalcif Yes 125ug Take 125 U nivers [place], 4-27 mcg by ity of Vitamin D3, 11:01: mouth. [place] 125 mcg 24 Medical (5,000 Branch unit) tablet aspirin Yes 325mg Take 325 [facility] [place] mg EC 4-27 mg by ity of tablet 11:01: mouth. [address] Branch Cholecalcif Yes 125ug Take 125 U nivers [place], 4-27 mcg by ity of Vitamin D3, 11:01: mouth. [place] 125 mcg 24 Medical (5,000 Branch unit) tablet aspirin Yes 325mg Take 325 [facility] [place] mg EC 4-27 mg by ity of tablet 11:01: mouth. [address] Branch Cholecalcif Yes 125ug Take 125 U nivers [place], 4-27 mcg by ity of Vitamin D3, 11:01: mouth. [place] 125 mcg 24 Medical (5,000 Branch unit) tablet aspirin Yes 325mg Take 325 Un [place] mg EC 4-27 mg by ity of tablet 11:01: mouth. [address] Branch Cholecalcif Yes 125ug Take 125 U nivers [place], 4-27 mcg by ity of Vitamin D3, 11:01: mouth. [place] 125 mcg 24 Medical (5,000 Branch unit) tablet aspirin 0 Yes 325mg Take 325 Un [place] mg EC 4-27 mg by ity of tablet 11:01: mouth. [address] Branch Cholecalcif Yes 125ug Take 125 U nivers [place], 4-27 mcg by ity of Vitamin D3, 11:01: mouth. [place] 125 mcg 24 Medical (5,000 Branch unit) tablet aspirin Yes 325mg Take 325 Un [place] mg EC 4-27 mg by ity of tablet 11:01: mouth. [place] [address] Medical Branch Cholecalcif Yes 125ug Take 125 U nivers [place], 4-27 mcg by ity of Vitamin D3, 11:01: mouth. [place] 125 mcg 24 Medical (5,000 Branch unit) tablet aspirin 81 Yes 325mg Take 325 Un [place] mg EC 4-27 mg by ity of tablet 11:01: mouth. [place] [address] Medical Branch Cholecalcif Yes 125ug Take 125 U nivers [place], 4-27 mcg by ity of Vitamin D3, 11:01: mouth. [place] 125 mcg 24 Medical (5,000 Branch unit) tablet aspirin Yes 325mg Take 325 Un [place] mg EC 4-27 mg by ity of tablet 11:01: mouth. [place] [address] Medical Branch Cholecalcif Yes 125ug Take 125 U nivers [place], 4-27 mcg by ity of Vitamin D3, 11:01: mouth. [place] 125 mcg 24 Medical (5,000 Branch unit) tablet aspirin Yes 325mg Take 325 Un [place] mg EC 4-27 mg by ity of tablet 11:01: mouth. [place] [address] Medical Branch Cholecalcif Yes 125ug Take 125 U nivers [place], 4-27 mcg by ity of Vitamin D3, 11:01: mouth. [place] 125 mcg 24 Medical (5,000 Branch unit) tablet aspirin Yes 325mg Take 325 [facility] [place] mg EC 4-27 mg by ity of tablet 11:01: mouth. [place] [address] Medical Branch Cholecalcif Yes 125ug Take 125 U nivers [place], 4-27 mcg by ity of Vitamin D3, 11:01: mouth. [place] 125 mcg 24 Medical (5,000 Branch unit) tablet oxybutynin Yes [id number] 5mg Take 1 [facility] XL 5 mg 24 4-27 tablet by ity of hr tablet 00:00: mouth [place] 00 daily. Medical Branch oxybutynin Yes [id number] 5mg Take 1 [facility] XL 5 mg 24 4-27 tablet by ity of hr tablet 00:00: mouth [place] 00 daily. Medical Branch oxybutynin 2021-0 Yes [id number] 5mg Take 1 [facility] XL 5 mg 24 4-27 tablet by ity of hr tablet 00:00: mouth [place] 00 daily. Medical Branch oxybutynin 2021-0 Yes [id number] 5mg Take 1 [facility] XL 5 mg 24 4-27 tablet by ity of hr tablet 00:00: mouth [place] 00 daily. Medical Branch oxybutynin 2021-0 Yes [id number] 5mg Take 1 [facility] XL 5 mg 24 4-27 tablet by ity of hr tablet 00:00: mouth [place] 00 daily. Medical Branch oxybutynin 2021-0 Yes [id number] 5mg Take 1 [facility] XL 5 mg 24 4-27 tablet by ity of hr tablet 00:00: mouth [place] 00 daily. Medical Branch oxybutynin 2021-0 Yes [id number] 5mg Take 1 [facility] XL 5 mg 24 4-27 tablet by ity of hr tablet 00:00: mouth [place] 00 daily. Medical Branch oxybutynin 2021-0 Yes [id number] 5mg Take 1 [facility] XL 5 mg 24 4-27 tablet by ity of hr tablet 00:00: mouth [place] 00 daily. Medical Branch oxybutynin 2021-0 Yes [id number] 5mg Take 1 [facility] XL 5 mg 24 4-27 tablet by ity of hr tablet 00:00: mouth [place] 00 daily. Medical Branch oxybutynin 2021-0 Yes [id number] 5mg Take 1 [facility] XL 5 mg 24 4-27 tablet by ity of hr tablet 00:00: mouth [place] 00 daily. Medical Branch oxybutynin 2021-0 Yes [id number] 5mg Take 1 [facility] XL 5 mg 24 4-27 tablet by ity of hr tablet 00:00: mouth [place] 00 daily. Medical Branch oxybutynin 2021-0 Yes [id number] 5mg Take 1 [facility] XL 5 mg 24 4-27 tablet by ity of hr tablet 00:00: mouth [place] 00 daily. Medical Branch oxybutynin 2021-0 Yes [id number] 5mg Take 1 [facility] XL 5 mg 24 4-27 tablet by ity of hr tablet 00:00: mouth [place] 00 daily. Medical Branch oxybutynin 2021-0 Yes [id number] 5mg Take 1 [facility] XL 5 mg 24 4-27 tablet by ity of hr tablet 00:00: mouth [place] 00 daily. Medical Branch oxybutynin 2021-0 Yes [id number] 5mg Take 1 [facility] XL 5 mg 24 4-27 tablet by ity of hr tablet 00:00: mouth [place] 00 daily. [facility] oxybutynin 2021-0 Yes [id number] 5mg Take 1 [facility] 5 mg 24 4-27 tablet by [facility] hr tablet 00:00: mouth [place] 00 daily. [facility] oxybutynin 2021-0 Yes [id number] 5mg Take 1 [facility] 5 mg 24 4-27 tablet by [facility] hr tablet 00:00: mouth [place] 00 daily. [facility] oxybutynin 2021-0 Yes [id number] 5mg Take 1 [facility] 5 mg 24 4-27 tablet by [facility] hr tablet 00:00: mouth [place] 00 daily. [facility] oxybutynin 2021-0 Yes [id number] 5mg Take 1 [facility] 5 mg 24 4-27 tablet by [facility] hr tablet 00:00: mouth [place] 00 daily. [facility] oxybutynin 2021-0 Yes [id number] 5mg Take 1 [facility] 5 mg 24 4-27 tablet by [facility] hr tablet 00:00: mouth [place] 00 daily. [facility] oxybutynin 2021-0 Yes [id number] 5mg Take 1 [facility] 5 mg 24 4-27 tablet by [facility] of hr tablet 00:00: mouth [place] 00 daily. [facility] oxybutynin 2021-0 Yes [id number] 5mg Take 1 [facility] 5 mg 24 4-27 tablet by [facility] hr tablet 00:00: mouth [place] 00 daily. [facility] oxybutynin 2021-0 Yes [id number] 5mg Take 1 [facility] 5 mg 24 4-27 tablet by [facility] of hr tablet 00:00: mouth [place] 00 daily. [facility] oxybutynin 0 2021- No [id number] 5mg Take 1 [facility] 5 mg 24 4-27 10-27 tablet by [facility] of hr tablet 00:00: 00:00 mouth [place] 00 :00 daily. [facility] oxybutynin 2021-0 2021- No [id number] 5mg Take 1 [facility] 5 mg 24 4-27 10-27 tablet by [facility] hr tablet 00:00: 00:00 mouth [place] 00 :00 daily. [facility] clopidogreL 2-0 Yes [id number] 75mg Take 1 [facility] 75 mg 4-11 tablet by [facility] of tablet 00:00: mouth [place] 00 daily. [facility] clopidogreL 2021-0 Yes [id number] 75mg Take 1 [facility] 75 mg 4-11 tablet by [facility] of tablet 00:00: mouth [place] 00 daily. [facility] clopidogreL 2021-0 Yes [id number] 75mg Take 1 [facility] 75 mg 4-11 tablet by [facility] of tablet 00:00: mouth [place] 00 daily. [facility] clopidogreL 2021-0 Yes [id number] 75mg Take 1 [facility] 75 mg 4-11 tablet by [facility]y of tablet 00:00: mouth [place] 00 daily. [facility] clopidogreL 2021-0 Yes [id number] 75mg Take 1 [facility] 75 mg 4-11 tablet by [facility] of tablet 00:00: mouth [place] 00 daily. [facility] clopidogreL 2021-0 Yes [id number] 75mg Take 1 [facility] 75 mg 4-11 tablet by [facility] of tablet 00:00: mouth [place] 00 daily. [facility] clopidogreL 2021-0 Yes [id number] 75mg Take 1 [facility] 75 mg 4-11 tablet by [facility] of tablet 00:00: mouth [place] 00 daily. [facility] clopidogreL 2021-0 Yes [id number] 75mg Take 1 [facility] 75 mg 4-11 tablet by [facility] of tablet 00:00: mouth [place] 00 daily. [facility] clopidogreL 2-0 Yes [id number] 75mg Take 1 [facility] 75 mg 4-11 tablet by [facility] of tablet 00:00: mouth [place] 00 daily. [facility] clopidogreL 2-0 Yes [id number] 75mg Take 1 [facility] 75 mg 4-11 tablet by it[facility] of tablet 00:00: mouth [place] 00 daily. [facility] clopidogreL 2-0 Yes [id number] 75mg Take 1 [facility] 75 mg 4-11 tablet by ity of tablet 00:00: mouth [place] 00 daily. [facility] clopidogreL 2022-0 Yes [id number] 75mg Take 1 [facility] 75 mg 4-11 tablet by [facility] of tablet 00:00: mouth [place] 00 daily. [facility] clopidogreL 2-0 Yes [id number] 75mg Take 1 [facility] 75 mg 4-11 tablet by ity of tablet 00:00: mouth [place] 00 daily. [facility] clopidogreL 2021-0 Yes [id number] 75mg Take 1 [facility] 75 mg 4-11 tablet by ity of tablet 00:00: mouth [place] 00 daily. [facility] clopidogreL 2021-0 2022- No [id number] 75mg Take 1 [facility] 75 mg 4-11 07-06 tablet by ity of tablet 00:00: 00:00 mouth [place] 00 :00 daily. [facility] ezetimibe 2021-0 Yes 10mg Take 1 [facility] (ZETIA) 10 4-07 tablet by ity of mg tablet 00:00: mouth [place] 00 daily. [facility] ezetimibe 2021-0 Yes 10mg Take 1 [facility] (ZETIA) 10 4-07 tablet by ity of mg tablet 00:00: mouth [place] 00 daily. [facility] ezetimibe 2021-0 Yes 10mg Take 1 [facility] (ZETIA) 10 4-07 tablet by ity of mg tablet 00:00: mouth [place] 00 daily. [facility] ezetimibe 0 Yes 10mg Take 1 [facility] (ZETIA) 10 4-07 tablet by ity of mg tablet 00:00: mouth [place] 00 daily. [facility] ezetimibe 0 Yes 10mg Take 1 [facility] (ZETIA) 10 4-07 tablet by ity of mg tablet 00:00: mouth [place] 00 daily. [facility] ezetimibe 2021-0 Yes 10mg Take 1 [facility] (ZETIA) 10 4-07 tablet by ity of mg tablet 00:00: mouth [place] 00 daily. [facility] ezetimibe 2021-0 Yes 10mg Take 1 [facility] (ZETIA) 10 4-07 tablet by ity of mg tablet 00:00: mouth [place] 00 daily. [facility] ezetimibe 2021-0 Yes 10mg Take 1 [facility] (ZETIA) 10 4-07 tablet by ity of mg tablet 00:00: mouth [place] 00 daily. [facility] ezetimibe 2021-0 Yes 10mg Take 1 [facility] s (ZETIA) 10 4-07 tablet by ity of mg tablet 00:00: mouth [place] 00 daily. [facility] ezetimibe 2021-0 Yes 10mg Take 1 [facility] (ZETIA) 10 4-07 tablet by ity of mg tablet 00:00: mouth [place] 00 daily. [facility] ezetimibe 0 Yes 10mg Take 1 [facility] (ZETIA) 10 4-07 tablet by ity of mg tablet 00:00: mouth [place] 00 daily. [facility] ezetimibe 2021-0 Yes 10mg Take 1 [facility] (ZETIA) 10 4-07 tablet by ity of mg tablet 00:00: mouth [place] 00 daily. [facility] ezetimibe 2021-0 Yes 10mg Take 1 [facility] (ZETIA) 10 4-07 tablet by ity of mg tablet 00:00: mouth [place] 00 daily. [facility] ezetimibe 0 Yes 10mg Take 1 [facility] (ZETIA) 10 4-07 tablet by ity of mg tablet 00:00: mouth [place] 00 daily. [facility] ezetimibe 0 Yes 10mg Take 1 [facility] (ZETIA) 10 4-07 tablet by ity of mg tablet 00:00: mouth [place] 00 daily. [facility] ezetimibe 0 Yes 10mg Take 1 [facility] (ZETIA) 10 4-07 tablet by ity of mg tablet 00:00: mouth [place] 00 daily. [facility] ezetimibe 0 Yes 10mg Take 1 [facility] (ZETIA) 10 4-07 tablet by ity of mg tablet 00:00: mouth [place] 00 daily. [facility] ezetimibe 0 Yes 10mg Take 1 [facility] (ZETIA) 10 4-07 tablet by ity of mg tablet 00:00: mouth [place] 00 daily. [facility] ezetimibe 0 Yes 10mg Take 1 [facility] (ZETIA) 10 4-07 tablet by ity of mg tablet 00:00: mouth [place] 00 daily. [facility] ezetimibe 0 2021- No 10mg Take 1 [facility] (ZETIA) 10 4-07 07-06 tablet by ity of mg tablet 00:00: 00:00 mouth [place] 00 :00 daily. [facility] metoprolol 0 Yes 25mg Take 25 mg U nivers tartrate 25 3-25 by mouth 2 it y of mg tablet 10:42: (two) [place] 35 times Medical daily. Branch hydrALAZINE Yes [id number] 50mg Take 50 mg [facility] 50 mg 3-25 by mouth ity of tablet 10:42: daily. [address] Branch losartan-hy Yes [id number] 1{tbl} Take 1 [facility] drochloroth 3-25 tablet by ity of iazide 10:42: mouth [place] 100-25 mg 35 daily. Medical per tablet Branch metoprolol Yes 25mg Take 25 mg U nivers tartrate 25 3-25 by mouth 2 it y of mg tablet 10:42: (two) [place] 35 times Medical daily. Branch hydrALAZINE Yes [id number] 50mg Take 50 mg [facility] 50 mg 3-25 by mouth ity of tablet 10:42: daily. [address] losartan-hy Yes [id number] 1{tbl} Take 1 [facility] drochloroth 3-25 tablet by ity of iazide 10:42: mouth [place] 100-25 mg 35 daily. Medical per tablet Branch metoprolol Yes 25mg Take 25 mg U nivers tartrate 25 3-25 by mouth 2 it y of mg tablet 10:42: (two) [place] 35 times Medical daily. Branch hydrALAZINE Yes [id number] 50mg Take 50 mg [facility] 50 mg 3-25 by mouth ity of tablet 10:42: daily. [address] losartan-hy Yes [id number] 1{tbl} Take 1 [facility] drochloroth 3-25 tablet by ity of iazide 10:42: mouth [place] 100-25 mg 35 daily. Medical per tablet Branch hydrALAZINE Yes [id number] 50mg Take 50 mg [facility] 50 mg 3-25 by mouth ity of tablet 10:42: daily. [address] losartan-hy Yes [id number] 1{tbl} Take 1 [facility] drochloroth 3-25 tablet by ity of iazide 10:42: mouth [place] 100-25 mg 35 daily. Medical per tablet Branch hydrALAZINE Yes [id number] 50mg Take 50 mg [facility] 50 mg 3-25 by mouth ity of tablet 10:42: daily. [address] losartan-hy Yes [id number] 1{tbl} Take 1 [facility] drochloroth 3-25 tablet by ity of iazide 10:42: mouth [place] 100-25 mg 35 daily. Medical per tablet Branch hydrALAZINE Yes [id number] 50mg Take 50 mg [facility] 50 mg 3-25 by mouth ity of tablet 10:42: daily. [address] losartan-hy Yes [id number] 1{tbl} Take 1 [facility] drochloroth 3-25 tablet by ity of iazide 10:42: mouth [place] 100-25 mg 35 daily. Medical per tablet Branch hydrALAZINE Yes [id number] 50mg Take 50 mg [facility] 50 mg 3-25 by mouth ity of tablet 10:42: daily. [address] losartan-hy Yes [id number] 1{tbl} Take 1 [facility] drochloroth 3-25 tablet by ity of iazide 10:42: mouth [place] 100-25 mg 35 daily. Medical per tablet Branch hydrALAZINE Yes [id number] 50mg Take 50 mg [facility] 50 mg 3-25 by mouth ity of tablet 10:42: daily. [address] losartan-hy Yes [id number] 1{tbl} Take 1 [facility] drochloroth 3-25 tablet by ity of iazide 10:42: mouth [place] 100-25 mg 35 daily. Medical per tablet Branch hydrALAZINE Yes [id number] 50mg Take 50 mg [facility] 50 mg 3-25 by mouth ity of tablet 10:42: daily. [address] losartan-hy Yes [id number] 1{tbl} Take 1 [facility] drochloroth 3-25 tablet by ity of iazide 10:42: mouth [place] 100-25 mg 35 daily. Medical per tablet Branch hydrALAZINE Yes [id number] 50mg Take 50 mg [facility] 50 mg 3-25 by mouth ity of tablet 10:42: daily. [address] losartan-hy Yes [id number] 1{tbl} Take 1 [facility] drochloroth 3-25 tablet by ity of iazide 10:42: mouth [place] 100-25 mg 35 daily. Medical per tablet Branch hydrALAZINE Yes [id number] 50mg Take 50 mg [facility] 50 mg 3-25 by mouth ity of tablet 10:42: daily. [address] losartan-hy 2021-0 Yes [id number] 1{tbl} Take 1 [facility] drochloroth 3-25 tablet by ity of iazide 10:42: mouth [place] 100-25 mg 35 daily. Medical per tablet Branch hydrALAZINE 0 Yes [id number] 50mg Take 50 mg [facility] 50 mg 3-25 by mouth ity of tablet 10:42: daily. [address] losartan-hy 2021-0 Yes [id number] 1{tbl} Take 1 [facility] drochloroth 3-25 tablet by ity of iazide 10:42: mouth [place] 100-25 mg 35 daily. Medical per tablet Branch hydrALAZINE 0 Yes [id number] 50mg Take 50 mg [facility] 50 mg 3-25 by mouth ity of tablet 10:42: daily. [address] hydrALAZINE 0 Yes [id number] 50mg Take 50 mg [facility] 50 mg 3-25 by mouth ity of tablet 10:42: daily. [address] hydrALAZINE 0 Yes [id number] 50mg Take 50 mg [facility] 50 mg 3-25 by mouth ity of tablet 10:42: daily. [address] hydrALAZINE 0 Yes [id number] 50mg Take 50 mg [facility] 50 mg 3-25 by mouth ity of tablet 10:42: daily. [address] hydrALAZINE 0 Yes [id number] 50mg Take 50 mg [facility] 50 mg 3-25 by mouth ity of tablet 10:42: daily. [address] hydrALAZINE 0 Yes [id number] 50mg Take 50 mg [facility] 50 mg 3-25 by mouth ity of tablet 10:42: daily. [address] hydrALAZINE 0 Yes [id number] 50mg Take 50 mg [facility] 50 mg 3-25 by mouth ity of tablet 10:42: daily. [address] hydrALAZINE 0 Yes [id number] 50mg Take 50 mg [facility] 50 mg 3-25 by mouth ity of tablet 10:42: daily. [address] hydrALAZINE 0 Yes [id number] 50mg Take 50 mg [facility] 50 mg 3-25 by mouth ity of tablet 10:42: daily. [address] hydrALAZINE 2021-0 Yes [id number] 50mg Take 50 mg [facility] 50 mg 3-25 by mouth ity of tablet 10:42: daily. [address] hydrALAZINE 2021-0 Yes [id number] 50mg Take 50 mg [facility] 50 mg 3-25 by mouth ity of tablet 10:42: daily. [address] hydrALAZINE 2021-0 Yes [id number] 50mg Take 50 mg [facility] 50 mg 3-25 by mouth ity of tablet 10:42: daily. [address] hydrALAZINE 2021-0 Yes [id number] 50mg Take 50 mg [facility] 50 mg 3-25 by mouth ity of tablet 10:42: daily. [address] hydrALAZINE 2021-0 Yes [id number] 50mg Take 50 mg [facility] 50 mg 3-25 by mouth ity of tablet 10:42: daily. [address] hydrALAZINE 2021-0 Yes [id number] 50mg Take 50 mg [facility] 50 mg 3-25 by mouth ity of tablet 10:42: daily. [address] oxybutynin 2021-0 Yes [id number] 5mg Take 1 [facility] XL 5 mg 24 2-24 tablet by ity of hr tablet 00:00: mouth [place] 00 daily. [facility] Branch oxybutynin 2021-0 Yes [id number] 5mg Take 1 U nivers XL 5 mg 24 2-24 tablet by ity of hr tablet 00:00: mouth [place] 00 daily. [facility] oxybutynin 2021-0 Yes [id number] 5mg Take 1 U nivers XL 5 mg 24 2-24 tablet by ity of hr tablet 00:00: mouth [place] 00 daily. [facility] Branch oxybutynin 2021-0 Yes [id number] 5mg Take 1 [facility] nivers XL 5 mg 24 2-24 tablet by ity of hr tablet 00:00: mouth [place] 00 daily. [facility] Branch oxybutynin 2021-0 Yes [id number] 5mg Take 1 [facility] nivers XL 5 mg 24 2-24 tablet by ity of hr tablet 00:00: mouth [place] 00 daily. [facility] oxybutynin 2021-0 Yes [id number] 5mg Take 1 [facility] XL 5 mg 24 2-24 tablet by ity of hr tablet 00:00: mouth [place] 00 daily. [facility] Branch oxybutynin 2-0 Yes [id number] 5mg Take 1 [facility] XL 5 mg 24 2-24 tablet by ity of hr tablet 00:00: mouth [place] 00 daily. [facility] oxybutynin 2-0 Yes [id number] 5mg Take 1 [facility] XL 5 mg 24 2-24 tablet by ity of hr tablet 00:00: mouth [place] 00 daily. [facility] oxybutynin 2-0 Yes [id number] 5mg Take 1 [facility] XL 5 mg 24 2-24 tablet by ity of hr tablet 00:00: mouth [place] 00 daily. [facility] oxybutynin 2-0 Yes [id number] 5mg Take 1 [facility] XL 5 mg 24 2-24 tablet by ity of hr tablet 00:00: mouth [place] 00 daily. [facility] oxybutynin 2-0 Yes [id number] 5mg Take 1 [facility] XL 5 mg 24 2-24 tablet by ity of hr tablet 00:00: mouth [place] 00 daily. [facility] oxybutynin 2-0 Yes [id number] 5mg Take 1 [facility] XL 5 mg 24 2-24 tablet by ity of hr tablet 00:00: mouth [place] 00 daily. [facility] oxybutynin 2-0 Yes [id number] 5mg Take 1 [facility] XL 5 mg 24 2-24 tablet by ity of hr tablet 00:00: mouth [place] 00 daily. [facility] oxybutynin 2-0 Yes [id number] 5mg Take 1 [facility] XL 5 mg 24 2-24 tablet by ity of hr tablet 00:00: mouth [place] 00 daily. [facility] oxybutynin 2-0 Yes [id number] 5mg Take 1 [facility] XL 5 mg 24 2-24 tablet by ity of hr tablet 00:00: mouth [place] 00 daily. [facility] oxybutynin 2-0 Yes [id number] 5mg Take 1 [facility] XL 5 mg 24 2-24 tablet by ity of hr tablet 00:00: mouth [place] 00 daily. [facility] oxybutynin 2-0 Yes [id number] 5mg Take 1 [facility] XL 5 mg 24 2-24 tablet by ity of hr tablet 00:00: mouth [place] 00 daily. [facility] oxybutynin 2-0 Yes [id number] 5mg Take 1 [facility] XL 5 mg 24 2-24 tablet by ity of hr tablet 00:00: mouth [place] 00 daily. [facility] oxybutynin 2-0 Yes [id number] 5mg Take 1 [facility] XL 5 mg 24 2-24 tablet by ity of hr tablet 00:00: mouth [place] 00 daily. [facility] oxybutynin 2-0 Yes [id number] 5mg Take 1 [facility] XL 5 mg 24 2-24 tablet by ity of hr tablet 00:00: mouth [place] 00 daily. [facility] oxybutynin 2-0 Yes [id number] 5mg Take 1 [facility] XL 5 mg 24 2-24 tablet by ity of hr tablet 00:00: mouth [place] 00 daily. [facility] oxybutynin 2-0 Yes [id number] 5mg Take 1 [facility] XL 5 mg 24 2-24 tablet by ity of hr tablet 00:00: mouth [place] 00 daily. [facility] oxybutynin 2021-0 Yes [id number] 5mg Take 1 [facility] XL 5 mg 24 2-24 tablet by ity of hr tablet 00:00: mouth [place] 00 daily. [facility] oxybutynin 2021-0 Yes [id number] 5mg Take 1 [facility] XL 5 mg 24 2-24 tablet by ity of hr tablet 00:00: mouth [place] 00 daily. [facility] Branch oxybutynin 2-0 2- No [id number] 5mg Take 1 [facility] XL 5 mg 24 2-24 10-27 tablet by ity of hr tablet 00:00: 00:00 mouth [place] 00 :00 daily. Medical Branch oxybutynin 2-0 2022- No [id number] 5mg Take 1 [facility] XL 5 mg 24 2-24 10-27 tablet by ity of hr tablet 00:00: 00:00 mouth [place] 00 :00 daily. Medical Branch ALFUZOSIN 2-0 Yes [id number] TAKE 1 U nivers 10 mg 24 hr 2-07 TABLET BY ity of tablet 00:00: MOUTH [place] 00 EVERY DAY Medical Branch ALFUZOSIN 2-0 Yes [id number] TAKE 1 U nivers 10 mg 24 hr 2-07 TABLET BY ity of tablet 00:00: MOUTH [place] 00 EVERY DAY Medical Branch ALFUZOSIN 2022-0 Yes [id number] TAKE 1 U nivers 10 mg 24 hr 2-07 TABLET BY ity of tablet 00:00: MOUTH [place] 00 EVERY DAY Medical Branch ALFUZOSIN 2022-0 Yes [id number] TAKE 1 U nivers 10 mg 24 hr 2-07 TABLET BY ity of tablet 00:00: MOUTH [place] 00 EVERY DAY Medical Branch ALFUZOSIN 2022-0 Yes [id number] TAKE 1 U nivers 10 mg 24 hr 2-07 TABLET BY ity of tablet 00:00: MOUTH [place] 00 EVERY DAY Medical Branch ALFUZOSIN 2022-0 Yes [id number] TAKE 1 U nivers 10 mg 24 hr 2-07 TABLET BY ity of tablet 00:00: MOUTH [place] 00 EVERY DAY Medical Branch ALFUZOSIN 2022-0 Yes [id number] TAKE 1 [facility]ivers 10 mg 24 hr 2-07 TABLET BY ity of tablet 00:00: MOUTH 00 EVERY DAY Medical Branch ALFUZOSIN 2022-0 Yes [id number] TAKE 1 U nivers 10 mg 24 hr 2-07 TABLET BY ity of tablet 00:00: MOUTH [place] 00 EVERY DAY Medical Branch ALFUZOSIN 2022-0 Yes [id number] TAKE 1 [facility] nivers 10 mg 24 hr 2-07 TABLET BY ity of tablet 00:00: MOUTH [place] 00 EVERY DAY Medical Branch ALFUZOSIN 2022-0 Yes [id number] TAKE 1 [facility] nivers 10 mg 24 hr 2-07 TABLET BY ity of tablet 00:00: MOUTH 00 EVERY DAY Medical Branch ALFUZOSIN 2022-0 Yes [id number] TAKE 1 U nivers 10 mg 24 hr 2-07 TABLET BY ity of tablet 00:00: MOUTH [place] 00 EVERY DAY Medical Branch ALFUZOSIN 2022-0 Yes [id number] TAKE 1 [facility] nivers 10 mg 24 hr 2-07 TABLET BY ity of tablet 00:00: MOUTH [place] 00 EVERY DAY Medical Branch ALFUZOSIN 2022-0 Yes [id number] TAKE 1 [facility] nivers 10 mg 24 hr 2-07 TABLET BY ity of tablet 00:00: MOUTH [place] 00 EVERY DAY Medical Branch ALFUZOSIN 2022-0 Yes [id number] TAKE 1 U nivers 10 mg 24 hr 2-07 TABLET BY ity of tablet 00:00: MOUTH [place] 00 EVERY DAY Medical Branch ALFUZOSIN 2022-0 Yes [id number] TAKE 1 [facility] nivers 10 mg 24 hr 2-07 TABLET BY ity of tablet 00:00: MOUTH [place] 00 EVERY DAY Medical Branch ALFUZOSIN 2022-0 Yes [id number] TAKE 1 [facility] nivers 10 mg 24 hr 2-07 TABLET BY ity of tablet 00:00: MOUTH [place] 00 EVERY DAY Medical Branch ALFUZOSIN 2022-0 Yes [id number] TAKE 1 [facility] nivers 10 mg 24 hr 2-07 TABLET BY ity of tablet 00:00: MOUTH [place] 00 EVERY DAY Medical Branch ALFUZOSIN 2022-0 Yes [id number] TAKE 1 [facility]ivers 10 mg 24 hr 2-07 TABLET BY ity of tablet 00:00: MOUTH 00 EVERY DAY Medical Branch ALFUZOSIN 2022-0 Yes [id number] TAKE 1 [facility]ivers 10 mg 24 hr 2-07 TABLET BY ity of tablet 00:00: MOUTH EVERY DAY Medical Branch ALFUZOSIN 2022-0 Yes [id number] TAKE 1 [facility] nivers 10 mg 24 hr 2-07 TABLET BY ity of tablet 00:00: MOUTH [place] 00 EVERY DAY Medical Branch ALFUZOSIN 2022-0 Yes [id number] TAKE 1 [facility] nivers 10 mg 24 hr 2-07 TABLET BY ity of tablet 00:00: MOUTH 00 EVERY DAY Medical Branch ALFUZOSIN 2022-0 Yes [id number] TAKE 1 [facility] nivers 10 mg 24 hr 2-07 TABLET BY ity of tablet 00:00: MOUTH 00 EVERY DAY Medical Branch ALFUZOSIN 2022-0 Yes [id number] TAKE 1 [facility] nivers 10 mg 24 hr 2-07 TABLET BY ity of tablet 00:00: MOUTH [place] 00 EVERY DAY Medical Branch ALFUZOSIN 2022-0 Yes [id number] TAKE 1 [facility]ivers 10 mg 24 hr 2-07 TABLET BY ity of tablet 00:00: MOUTH 00 EVERY DAY Medical Branch ALFUZOSIN 2022-0 Yes [id number] TAKE 1 [facility]ivers 10 mg 24 hr 2-07 TABLET BY ity of tablet 00:00: MOUTH 00 EVERY DAY Medical Branch ALFUZOSIN 2022-0 Yes [id number] TAKE 1 [facility]ivers 10 mg 24 hr 2-07 TABLET BY ity of tablet 00:00: MOUTH EVERY DAY Medical Branch ALFUZOSIN 2022-0 Yes [id number] TAKE 1 U nivers 10 mg 24 hr 2-07 TABLET BY ity of tablet 00:00: MOUTH [place] EVERY DAY Medical Branch ALFUZOSIN 2021-0 2021- No [id number] TAKE 1 [facility] 10 mg 24 hr 2- 11-04 TABLET BY it y of tablet 00:00: 00:00 MOUTH [place] 00 :00 EVERY DAY Medical Branch LACTULOSE 2021-0 Yes [id number] TAKE 15 ML [facility] 10 gram/15 1-20 BY MOUTH ity o f mL solution 00:00: DAILY. [facility] LACTULOSE 0 Yes [id number] TAKE 15 ML [facility] 10 gram/15 1-20 BY MOUTH ity o f mL solution 00:00: DAILY. [facility] LACTULOSE 0 Yes [id number] TAKE 15 ML [facility] 10 gram/15 1-20 BY MOUTH ity o f mL solution 00:00: DAILY. [facility] LACTULOSE 0 Yes [id number] TAKE 15 ML [facility] 10 gram/15 1-20 BY MOUTH ity o f mL solution 00:00: DAILY. [facility] LACTULOSE 0 Yes [id number] TAKE 15 ML [facility] 10 gram/15 1-20 BY MOUTH ity o f mL solution 00:00: DAILY. [facility] LACTULOSE 0 Yes [id number] TAKE 15 ML [facility] 10 gram/15 1-20 BY MOUTH ity o f mL solution 00:00: DAILY. [facility] LACTULOSE 2021-0 Yes [id number] TAKE 15 ML [facility] 10 gram/15 1-20 BY MOUTH ity o f mL solution 00:00: DAILY. [place] [facility] LACTULOSE 0 Yes [id number] TAKE 15 ML [facility] 10 gram/15 1-20 BY MOUTH ity o f mL solution 00:00: DAILY. [facility] LACTULOSE 2021-0 Yes [id number] TAKE 15 ML [facility] 10 gram/15 1-20 BY MOUTH ity o f mL solution 00:00: DAILY. [place] [facility] LACTULOSE 2021-0 Yes [id number] TAKE 15 ML [facility] 10 gram/15 1-20 BY MOUTH ity o f mL solution 00:00: DAILY. [place] [facility] LACTULOSE 2022-0 Yes [id number] TAKE 15 ML [facility] 10 gram/15 1-20 BY MOUTH ity o f mL solution 00:00: DAILY. [place] 00 [facility] LACTULOSE 2021-0 Yes [id number] TAKE 15 ML [facility] 10 gram/15 1-20 BY MOUTH ity o f mL solution 00:00: DAILY. [place] 00 [facility] LACTULOSE 2021-0 Yes [id number] TAKE 15 ML [facility] 10 gram/15 1-20 BY MOUTH ity o f mL solution 00:00: DAILY. [place] 00 [facility] LACTULOSE 2021-0 Yes [id number] TAKE 15 ML [facility] 10 gram/15 1-20 BY MOUTH ity o f mL solution 00:00: DAILY. [place] 00 [facility] LACTULOSE 2021-0 Yes [id number] TAKE 15 ML [facility] 10 gram/15 1-20 BY MOUTH ity o f mL solution 00:00: DAILY. [place] 00 [facility] LACTULOSE 2021-0 Yes [id number] TAKE 15 ML [facility] 10 gram/15 1-20 BY MOUTH ity o f mL solution 00:00: DAILY. [place] 00 [facility] LACTULOSE 2021-0 Yes [id number] TAKE 15 ML [facility] 10 gram/15 1-20 BY MOUTH ity o f mL solution 00:00: DAILY. [place] 00 [facility] LACTULOSE 2021-0 Yes [id number] TAKE 15 ML [facility] 10 gram/15 1-20 BY MOUTH ity o f mL solution 00:00: DAILY. [place] 00 [facility] LACTULOSE 2021-0 Yes [id number] TAKE 15 ML [facility] 10 gram/15 1-20 BY MOUTH ity o f mL solution 00:00: DAILY. [place] 00 [facility] LACTULOSE 2021-0 Yes [id number] TAKE 15 ML [facility] 10 gram/15 1-20 BY MOUTH ity o f mL solution 00:00: DAILY. [place] 00 [facility] LACTULOSE 2021-0 Yes [id number] TAKE 15 ML [facility] 10 gram/15 1-20 BY MOUTH ity o f mL solution 00:00: DAILY. [place] 00 [facility] LACTULOSE 2021-0 Yes [id number] TAKE 15 ML [facility] 10 gram/15 1-20 BY MOUTH ity o f mL solution 00:00: DAILY. [place] 00 [facility] LACTULOSE 2021-0 Yes [id number] TAKE 15 ML [facility] 10 gram/15 1-20 BY MOUTH ity o f mL solution 00:00: DAILY. [facility] Branch LACTULOSE 2021-0 Yes [id number] TAKE 15 ML [facility] 10 gram/15 1-20 BY MOUTH ity o f mL solution 00:00: DAILY. [facility] Branch LACTULOSE 2021-0 Yes [id number] TAKE 15 ML [facility] 10 gram/15 1-20 BY MOUTH ity o f mL solution 00:00: DAILY. [facility] LACTULOSE 0 Yes [id number] TAKE 15 ML [facility] 10 gram/15 1-20 BY MOUTH ity o f mL solution 00:00: DAILY. [facility] LACTULOSE 0 Yes [id number] TAKE 15 ML [facility] 10 gram/15 1-20 BY MOUTH ity o f mL solution 00:00: DAILY. [facility] 00 Medical Branch LACTULOSE 0 Yes [id number] TAKE 15 ML [facility] 10 gram/15 1-20 BY MOUTH ity o f mL solution 00:00: DAILY. [facility] Branch LACTULOSE 0 Yes [id number] TAKE 15 ML [facility] 10 gram/15 1-20 BY MOUTH ity o f mL solution 00:00: DAILY. [facility] Branch LACTULOSE 0 Yes [id number] TAKE 15 ML [facility] 10 gram/15 1-20 BY MOUTH ity o f mL solution 00:00: DAILY. [facility] 00 Medical Branch LACTULOSE 2021-0 Yes [id number] TAKE 15 ML [facility] 10 gram/15 1-20 BY MOUTH ity o f mL solution 00:00: DAILY. [facility] LACTULOSE 2021-0 Yes [id number] TAKE 15 ML [facility] 10 gram/15 1-20 BY MOUTH ity o f mL solution 00:00: DAILY. [facility] LACTULOSE 2021-0 Yes [id number] TAKE 15 ML [facility] 10 gram/15 1-20 BY MOUTH ity o f mL solution 00:00: DAILY. [facility] Branch LACTULOSE 2021-0 Yes [id number] TAKE 15 ML [facility] 10 gram/15 1-20 BY MOUTH ity o f mL solution 00:00: DAILY. [facility] Branch LACTULOSE 2021-0 Yes [id number] TAKE 15 ML [facility] 10 gram/15 1-20 BY MOUTH ity o f mL solution 00:00: DAILY. [place] [facility] 00 [facility] LACTULOSE 2021-0 Yes [id number] TAKE 15 ML [facility] 10 gram/15 1-20 BY MOUTH ity o f mL solution 00:00: DAILY. [place] [facility] LACTULOSE 2021-0 Yes [id number] TAKE 15 ML [facility] 10 gram/15 1-20 BY MOUTH it[facility] o [facility] [place] solution 00:[place] [facility] LACTULOSE 2021-0 Yes [id number] TAKE 15 ML [facility] 10 gram/15 1-20 BY MOUTH it[facility] o f mL solution 00:00: [place]. [place] [facility] LACTULOSE 2021-0 Yes [id number] TAKE 15 ML [facility] 10 gram/15 1-20 BY MOUTH it[facility] o f mL solution 00:00: [place]. [place] [facility] LACTULOSE 2021-0 Yes [id number] TAKE 15 ML [facility] 10 gram/15 1-20 BY MOUTH ity o f mL solution 00:[facility] 2021-0 Yes [id number] TAKE 15 ML [facility] 10 gram/15 1-20 BY MOUTH ity o f mL solution 00:00: DAILY. [place] [facility] LACTULOSE 2021-0 Yes [id number] TAKE 15 ML [facility] 10 gram/15 1-20 BY MOUTH ity o f mL solution 00:00: [place]. [place] [facility] LACTULOSE 2021-0 Yes [id number] TAKE 15 ML [facility] 10 gram/15 1-20 BY MOUTH ity o f mL solution 00:00: [facility] L[facility] 2021-0 Yes [id number] TAKE 15 ML [facility] 10 gram/15 1-20 BY MOUTH it[facility] o f mL solution 00:00: [place]ILY. [place] [facility] LACTULOSE 2021-0 Yes [id number] TAKE 15 ML [facility] 10 gram/15 1-20 BY MOUTH it[facility] o f mL solution 00:00: [place]ILY. [place] [facility] LACTULOSE 2021-0 Yes [id number] TAKE 15 ML [facility] 10 gram/15 1-20 BY MOUTH ity o f mL solution 00:00: [place]ILY. [place] [facility] LACTULOSE 2021-0 Yes [id number] TAKE 15 ML [facility] 10 gram/15 1-20 BY MOUTH ity o f mL solution 00:00: DAILY. [place] [facility] LACTULOSE 2021-0 Yes [id number] TAKE 15 ML [facility] 10 gram/15 1-20 BY MOUTH ity o f mL solution 00:00: [place]ILY. [place] [facility] LACTULOSE 2021-0 Yes [id number] TAKE 15 ML [facility] 10 gram/15 1-20 BY MOUTH ity o f mL solution 00:00: [place]ILY. [place] [facility] LACTULOSE 2021-0 Yes [id number] TAKE 15 ML [facility] 10 gram/15 1-20 BY MOUTH ity o f mL solution 00:00: [place]ILY. [place] [facility] LACTULOSE 2021-0 Yes [id number] TAKE 15 ML [facility] 10 gram/15 1-20 BY MOUTH ity o f mL solution 00:00: [place]ILY. [place] [facility] LACTULOSE 2021-0 Yes [id number] TAKE 15 ML [facility] 10 gram/15 1-20 BY MOUTH ity o f mL solution 00:00[facility] L[facility] 2021-0 Yes [id number] TAKE 15 ML [facility] 10 gram/15 1-20 BY MOUTH ity o f mL solution 00:00: [place]ILY. [place] [facility] LACTULOSE 2021-0 Yes [id number] TAKE 15 ML [facility] 10 gram/15 1-20 BY MOUTH it[facility] o f mL solution 00:00: DAILY. [place] [facility] LACTULOSE 2021-0 Yes [id number] TAKE 15 ML [facility] 10 gram/15 1-20 BY MOUTH ity o f mL solution 00:00: DAILY. [place] [facility] LACTULOSE 2021-0 Yes [id number] TAKE 15 ML [facility] 10 gram/15 1-20 BY MOUTH ity o f mL solution 00:00: DAILY. [place] [facility] LACTULOSE 2021-0 Yes [id number] TAKE 15 ML [facility] 10 gram/15 1-20 BY MOUTH ity o f mL solution 00:00: DAILY. [place] [facility] LACTULOSE 2021-0 Yes [id number] TAKE 15 ML [facility] 10 gram/15 1-20 BY MOUTH ity o f mL solution 00:00: DAILY. [place] [facility] LACTULOSE 2021-0 Yes [id number] TAKE 15 ML [facility] 10 gram/15 1-20 BY MOUTH ity o f mL solution 00:00: DAILY. [place] [facility] LACTULOSE 2021-0 Yes [id number] TAKE 15 ML [facility] 10 gram/15 1-20 BY MOUTH ity o f mL solution 00:00: DAILY. [place] [facility] LACTULOSE 2021-0 Yes [id number] TAKE 15 ML [facility] 10 gram/15 1-20 BY MOUTH ity o f mL solution 00:00: DAILY. [place] [facility] LACTULOSE 2021-0 Yes [id number] TAKE 15 ML [facility] 10 gram/15 1-20 BY MOUTH ity o f mL solution 00:00: DAILY. [place] [facility] LACTULOSE 2021-0 Yes [id number] TAKE 15 ML [facility] 10 gram/15 1-20 BY MOUTH ity o f mL solution 00:00[facility] L[facility] 2021-0 Yes [id number] TAKE 15 ML [facility] 10 gram/15 1-20 BY MOUTH ity o f mL solution 00:00: [facility]. [facility] LACTULOSE 2021-0 Yes [id number] TAKE 15 ML [facility] 10 gram/15 1-20 BY MOUTH ity o f mL solution 00:00: [facility]. [facility] LACTULOSE 2021-0 Yes [id number] TAKE 15 ML [facility] 10 gram/15 1-20 BY MOUTH ity o f mL solution 00:00: [facility]. [facility] LACTULOSE 2021-0 Yes [id number] TAKE 15 ML [facility] 10 gram/15 1-20 BY MOUTH ity o f mL solution 00:00: [facility]. [facility] LACTULOSE 2021-0 Yes [id number] TAKE 15 ML [facility] 10 gram/15 1-20 BY MOUTH ity o f mL solution 00:00: DAILY. [place] [facility] LACTULOSE 2021-0 Yes [id number] TAKE 15 ML [facility] 10 gram/15 1-20 BY MOUTH ity o f mL solution 00:00: DAILY. [place] [facility] LACTULOSE 2021-0 Yes [id number] TAKE 15 ML [facility] 10 gram/15 1-20 BY MOUTH ity o f mL solution 00:00: DAILY. [place] [facility] LACTULOSE 2021-0 Yes [id number] TAKE 15 ML [facility] 10 gram/15 1-20 BY MOUTH ity o f mL solution 00:00: DAILY. [place] [facility] LACTULOSE 2022-0 Yes [id number] TAKE 15 ML [facility] 10 gram/15 1-20 BY MOUTH ity o f mL solution 00:00: DAILY. [place] [facility] LACTULOSE 0 Yes [id number] TAKE 15 ML [facility] 10 gram/15 1-20 BY MOUTH ity o f mL solution 00:00: DAILY. [place] [facility] LACTULOSE 0 Yes [id number] TAKE 15 ML [facility] 10 gram/15 1-20 BY MOUTH ity o f mL solution 00:00: DAILY. [place] [facility] LACTULOSE 0 Yes [id number] TAKE 15 ML [facility] 10 gram/15 1-20 BY MOUTH ity o f mL solution 00:00: DAILY. [place] [facility] LACTULOSE 0 Yes [id number] TAKE 15 ML [facility] 10 gram/15 1-20 BY MOUTH ity o f mL solution 00:00: DAILY. [place] [facility] LACTULOSE 0 Yes [id number] TAKE 15 ML [facility] 10 gram/15 1-20 BY MOUTH ity o f mL solution 00:00: DAILY. [place] [facility] LACTULOSE 0 Yes [id number] TAKE 15 ML [facility] 10 gram/15 1-20 BY MOUTH ity o f mL solution 00:00: DAILY. [place] [facility] LACTULOSE 0 Yes [id number] TAKE 15 ML [facility] 10 gram/15 1-20 BY MOUTH ity o f mL solution 00:00: DAILY. [place] [facility] LACTULOSE 0 Yes [id number] TAKE 15 ML [facility] 10 gram/15 1-20 BY MOUTH ity o f mL solution 00:00: DAILY. [place] [facility] LACTULOSE 0 Yes [id number] TAKE 15 ML [facility] 10 gram/15 1-20 BY MOUTH ity o f mL solution 00:00: DAILY. [place] [facility] LACTULOSE 0 3- No [id number] TAKE 15 ML [facility] 10 gram/15 1-20 04-10 BY MOUTH ity of mL solution 00:00: 00:00 DAILY. [place] 00 :00 [facility] potassium 2021-0 Yes [id number] 10meq Take 1 [facility] chloride 1-13 tablet by ity of (K-TAB) 10 00:00: mouth [place] mEq CR 00 daily. Medical tablet Branch potassium 0 Yes [id number] 10meq Take 1 [facility] chloride 1-13 tablet by ity of (K-TAB) 10 00:00: mouth [place] mEq CR 00 daily. Medical tablet Branch potassium 0 Yes [id number] 10meq Take 1 [facility] chloride 1-13 tablet by ity of (K-TAB) 10 00:00: mouth [place] mEq CR 00 daily. Medical tablet Branch potassium 0 Yes [id number] 10meq Take 1 [facility] chloride 1-13 tablet by ity of (K-TAB) 10 00:00: mouth [place] mEq CR 00 daily. Medical tablet Branch potassium 0 Yes [id number] 10meq Take 1 [facility] chloride 1-13 tablet by ity of (K-TAB) 10 00:00: mouth [place] mEq CR 00 daily. Medical tablet Branch potassium Yes [id number] 10meq Take 1 [facility] chloride 1-13 tablet by ity of (K-TAB) 10 00:00: mouth [place] mEq CR 00 daily. Medical tablet Branch potassium Yes [id number] 10meq Take 1 [facility] chloride 1-13 tablet by ity of (K-TAB) 10 00:00: mouth [place] mEq CR 00 daily. Medical tablet Branch potassium Yes [id number] 10meq Take 1 [facility] chloride 1-13 tablet by ity of (K-TAB) 10 00:00: mouth [place] mEq CR 00 daily. Medical tablet Branch potassium Yes [id number] 10meq Take 1 [facility] chloride 1-13 tablet by ity of (K-TAB) 10 00:00: mouth [place] mEq CR 00 daily. Medical tablet Branch potassium 0 Yes [id number] 10meq Take 1 [facility] chloride 1-13 tablet by ity of (K-TAB) 10 00:00: mouth [place] mEq CR 00 daily. Medical tablet Branch potassium 2021-0 Yes [id number] 10meq Take 1 [facility] chloride 1-13 tablet by ity of (K-TAB) 10 00:00: mouth [place] mEq CR 00 daily. Medical tablet Branch potassium 0 Yes [id number] 10meq Take 1 [facility] chloride 1-13 tablet by ity of (K-TAB) 10 00:00: mouth [place] mEq CR 00 daily. Medical tablet Branch potassium Yes [id number] 10meq Take 1 [facility] chloride 1-13 tablet by ity of (K-TAB) 10 00:00: mouth [place] mEq CR 00 daily. Medical tablet Branch potassium Yes [id number] 10meq Take 1 [facility] chloride 1-13 tablet by ity of (K-TAB) 10 00:00: mouth [place] mEq CR 00 daily. Medical tablet Branch potassium 2021- No [id number] 10meq Take 1 [facility] chloride 1-13 07-06 tablet by ity o f (K-TAB) 10 00:00: 00:00 mouth [place] mEq CR 00 :00 daily. Medical tablet Branch furosemide 2021- No [id number] 40mg Take 1 [facility] 40 mg 1-13 05-12 tablet by ity of tablet 00:00: 00:00 mouth [place] 00 :00 daily. [facility] furosemide 2021- No [id number] 40mg Take 1 [facility] 40 mg 1-13 05-12 tablet by ity of tablet 00:00: 00:00 mouth [place] 00 :00 daily. [facility] oxybutynin 2020-02 Yes [id number] 5mg Take 1 U nivers XL 5 mg 24 1-15 tablet by ity of hr tablet 00:00: mouth [place] 00 daily. [facility] oxybutynin 2020-02 Yes [id number] 5mg Take 1 U nivers XL 5 mg 24 1-15 tablet by ity of hr tablet 00:00: mouth [place] 00 daily. [facility] oxybutynin 2020-02 Yes [id number] 5mg Take 1 U nivers XL 5 mg 24 1-15 tablet by ity of hr tablet 00:00: mouth [place] 00 daily. [facility] oxybutynin 2020-02 Yes [id number] 5mg Take 1 U nivers XL 5 mg 24 1-15 tablet by ity of hr tablet 00:00: mouth [place] 00 daily. [facility] oxybutynin 2020-02 Yes [id number] 5mg Take 1 U nivers XL 5 mg 24 1-15 tablet by ity of hr tablet 00:00: mouth [place] 00 daily. [facility] oxybutynin 2020-02 Yes [id number] 5mg Take 1 U nivers XL 5 mg 24 1-15 tablet by ity of hr tablet 00:00: mouth [place] 00 daily. [facility] oxybutynin 2020-02 Yes [id number] 5mg Take 1 U nivers XL 5 mg 24 1-15 tablet by ity of hr tablet 00:00: mouth [place] 00 daily. [facility] oxybutynin 2020-02 Yes [id number] 5mg Take 1 U nivers XL 5 mg 24 1-15 tablet by ity of hr tablet 00:00: mouth [place] 00 daily. [facility] oxybutynin 2020-02 Yes [id number] 5mg Take 1 U nivers XL 5 mg 24 1-15 tablet by ity of hr tablet 00:00: mouth [place] 00 daily. [facility] oxybutynin 2020-02 Yes [id number] 5mg Take 1 U nivers XL 5 mg 24 1-15 tablet by ity of hr tablet 00:00: mouth [place] 00 daily. [facility] oxybutynin 2020-02 Yes [id number] 5mg Take 1 U nivers XL 5 mg 24 1-15 tablet by ity of hr tablet 00:00: mouth [place] 00 daily. [facility] oxybutynin 2020-02 Yes [id number] 5mg Take 1 U nivers XL 5 mg 24 1-15 tablet by ity of hr tablet 00:00: mouth [place] 00 daily. [facility] oxybutynin 2020-02 Yes [id number] 5mg Take 1 U nivers XL 5 mg 24 1-15 tablet by ity of hr tablet 00:00: mouth [place] 00 daily. [facility] oxybutynin 2020-02 Yes [id number] 5mg Take 1 U nivers XL 5 mg 24 1-15 tablet by ity of hr tablet 00:00: mouth [place] 00 daily. [facility] oxybutynin 2020-02 Yes [id number] 5mg Take 1 [facility] nivers XL 5 mg 24 1-15 tablet by ity of hr tablet 00:00: mouth [place] 00 daily. [facility] oxybutynin 2020-02 Yes [id number] 5mg Take 1 U nivers XL 5 mg 24 1-15 tablet by ity of hr tablet 00:00: mouth [place] 00 daily. [facility] oxybutynin 2020-02 Yes [id number] 5mg Take 1 U nivers XL 5 mg 24 1-15 tablet by ity of hr tablet 00:00: mouth [place] 00 daily. [facility] oxybutynin 2020-02 Yes [id number] 5mg Take 1 U nivers XL 5 mg 24 1-15 tablet by ity of hr tablet 00:00: mouth [place] 00 daily. [facility] oxybutynin 2020-02 Yes [id number] 5mg Take 1 U nivers XL 5 mg 24 1-15 tablet by ity of hr tablet 00:00: mouth [place] 00 daily. [facility] oxybutynin 2020-02 Yes [id number] 5mg Take 1 U nivers XL 5 mg 24 1-15 tablet by ity of hr tablet 00:00: mouth [place] 00 daily. [facility] oxybutynin 2020-02 Yes [id number] 5mg Take 1 U nivers XL 5 mg 24 1-15 tablet by ity of hr tablet 00:00: mouth [place] 00 daily. [facility] oxybutynin 2020-02 Yes [id number] 5mg Take 1 U nivers XL 5 mg 24 1-15 tablet by ity of hr tablet 00:00: mouth [place] 00 daily. [facility] oxybutynin 2020-02 Yes [id number] 5mg Take 1 U nivers XL 5 mg 24 1-15 tablet by ity of hr tablet 00:00: mouth [place] 00 daily. [facility] oxybutynin 2020-02 Yes [id number] 5mg Take 1 [facility] nivers XL 5 mg 24 1-15 tablet by ity of hr tablet 00:00: mouth [place] 00 daily. [facility] oxybutynin 2020-02- No [id number] 5mg Take 1 [facility] XL 5 mg 24 1-15 10-27 tablet by ity of hr tablet 00:00: 00:00 mouth [place] 00 :00 daily. [facility] oxybutynin 2020-02- No [id number] 5mg Take 1 [facility] XL 5 mg 24 1-15 10-27 tablet by ity of hr tablet 00:00: 00:00 mouth [place] 00 :00 daily. [facility] blood sugar 2020-02 Yes [id number] Test U nivers diagnostic 1-10 glucose ity of strip 00:00: qid [place] 00 [facility] Transparent 2020- Yes [id number] Use as [facility] Dressings 1-10 [id number] directed ity of (TEGADERM) 00:00: qod [place] 2 X 2 3/4 " 00 Medical Bndg Branch blood sugar 2020-02 Yes [id number] Test U nivers diagnostic 1-10 glucose ity of strip 00:00: qid [place] 00 [facility] Transparent 2020-02 Yes [id number] Use as [facility] Dressings 1-10 [id number] directed ity of (TEGADERM) 00:00: qod [place] 2 X 2 3/4 " 00 Medical Bndg Branch blood sugar 2020-02 Yes [id number] Test U nivers diagnostic 1-10 glucose ity of strip 00:00: qid [place] 00 [facility] Transparent 2020-02 Yes [id number] Use as [facility] Dressings 1-10 [id number] directed ity of (TEGADERM) 00:00: qod [place] 2 X 2 3/4 " 00 Medical Bndg Branch blood sugar 2020-02 Yes [id number] Test U nivers diagnostic 1-10 glucose ity of strip 00:00: qid [place] 00 [facility] Transparent 2020-02 Yes [id number] Use as [facility] Dressings 1-10 [id number] directed ity of (TEGADERM) 00:00: qod [place] 2 X 2 3/4 " 00 Medical Bndg Branch blood sugar 2020-02 Yes [id number] Test U nivers diagnostic 1-10 glucose ity of strip 00:00: qid [place] 00 [facility] Transparent 2020-02 Yes [id number] Use as [facility] Dressings 1-10 [id number] directed ity of (TEGADERM) 00:00: qod [place] 2 X 2 3/4 " 00 Medical dg Branch blood sugar 2020-02 Yes [id number] Test U nivers diagnostic 1-10 glucose ity of strip 00:00: qid [place] 00 [facility] Transparent 2020-02 Yes [id number] Use as [facility] Dressings 1-10 [id number] directed ity of (TEGADERM) 00:00: qod [place] 2 X 2 3/4 " 00 Medical Bndg Branch blood sugar 2020-02 Yes [id number] Test U nivers diagnostic 1-10 glucose ity of strip 00:00: qid [place] 00 [facility] Transparent 2020-02 Yes [id number] Use as [facility] Dressings 1-10 [id number] directed ity of (TEGADERM) 00:00: qod [place] 2 X 2 3/4 " 00 Medical dg Branch blood sugar 2020-02 Yes [id number] Test U nivers diagnostic 1-10 glucose ity of strip 00:00: qid [place] 00 [facility] Transparent 2020-02 Yes [id number] Use as [facility] Dressings 1-10 [id number] directed ity of (TEGADERM) 00:00: qod [place] 2 X 2 3/4 " 00 Medical Bndg Branch blood sugar 2020-02 Yes [id number] Test U nivers diagnostic 1-10 glucose ity of strip 00:00: qid [place] 00 [facility] Transparent 2020-02 Yes [id number] Use as [facility] Dressings 1-10 [id number] directed ity of (TEGADERM) 00:00: qod [place] 2 X 2 3/4 " 00 Medical dg Branch blood sugar 2020-02 Yes [id number] Test U nivers diagnostic 1-10 glucose ity of strip 00:00: [facility] Branch Transparent 2020-02 Yes [id number] Use as [facility] Dressings 1-10 [id number] directed ity of (TEGADERM) 00:00: qod [place] 2 X 2 3/4 " 00 Medical dg Branch blood sugar 2020-02 Yes [id number] Test U nivers diagnostic 1-10 glucose ity of strip 00:00: [facility] Branch Transparent 2020-02 Yes [id number] Use as [facility] Dressings 1-10 [id number] directed ity of (TEGADERM) 00:00: qod [place] 2 X 2 3/4 " 00 Medical dg Branch blood sugar 2020-02 Yes [id number] Test U nivers diagnostic 1-10 glucose ity of strip 00:00: [facility] Branch Transparent 2020-02 Yes [id number] Use as [facility] Dressings 1-10 [id number] directed ity of (TEGADERM) 00:00: qod [place] 2 X 2 3/4 " 00 Medical dg Branch blood sugar 2020-02 Yes [id number] Test U nivers diagnostic 1-10 glucose ity of strip 00:00: [facility] Branch Transparent 2020-02 Yes [id number] Use as [facility] Dressings 1-10 [id number] directed ity of (TEGADERM) 00:00: qod [place] 2 X 2 3/4 " 00 Medical dg Branch blood sugar 2020-02 Yes [id number] Test U nivers diagnostic 1-10 glucose ity of strip 00:00: qid [place] 00 [facility] Transparent 2020-02 Yes [id number] Use as [facility] Dressings 1-10 [id number] directed ity of (TEGADERM) 00:00: qod [place] 2 X 2 3/4 " 00 Medical Bndg Branch blood sugar 2020-02 Yes [id number] Test U nivers diagnostic 1-10 glucose ity of strip 00:00: d [place] 00 [facility] Transparent 2020-02 Yes [id number] Use as [facility] Dressings 1-10 [id number] directed ity of (TEGADERM) 00:00: qod [place] 2 X 2 3/4 " 00 Medical Bndg Branch blood sugar 2020-02 Yes [id number] Test U nivers diagnostic 1-10 glucose ity of strip 00:00: [facility] Branch Transparent 2020-02 Yes [id number] Use as [facility] Dressings 1-10 [id number] directed ity of (TEGADERM) 00:00: qod [place] 2 X 2 3/4 " 00 Medical Bndg Branch blood sugar 2020-02 Yes [id number] Test U nivers diagnostic 1-10 glucose ity of strip 00:00: [facility] 00 Medical Branch Transparent 2020-02 Yes [id number] Use as [facility] Dressings 1-10 [id number] directed ity of (TEGADERM) 00:00: qod [place] 2 X 2 3/4 " 00 Medical dg Branch blood sugar 2020-02 Yes [id number] Test U nivers diagnostic 1-10 glucose ity of strip 00:00: [facility] 00 Medical Branch Transparent 2020-02 Yes [id number] Use as [facility] Dressings 1-10 [id number] directed ity of (TEGADERM) 00:00: qod [place] 2 X 2 3/4 " 00 Medical Bndg Branch blood sugar 2020-02 Yes [id number] Test U nivers diagnostic 1-10 glucose ity of strip 00:00: [facility] 00 Medical Branch Transparent 2020-02 Yes [id number] Use as [facility] Dressings 1-10 [id number] directed ity of (TEGADERM) 00:00: qod [place] 2 X 2 3/4 " 00 Medical dg Branch blood sugar 2020-02 Yes [id number] Test U nivers diagnostic 1-10 glucose ity of strip 00:00: qid [place] 00 [facility] Transparent 2020-02 Yes [id number] Use as [facility] Dressings 1-10 [id number] directed ity of (TEGADERM) 00:00: qod [place] 2 X 2 3/4 " 00 Medical [facility] Branch blood sugar 2020-02 Yes [id number] Test U nivers diagnostic 1-10 glucose ity of strip 00:00: d [place] [facility] Transparent 2020-02 Yes [id number] Use as [facility] Dressings 1-10 [id number] directed ity of (TEGADERM) 00:00: qod [place] 2 X 2 3/4 " 00 Medical dg Branch blood sugar 2020-02 Yes [id number] Test U nivers diagnostic 1-10 glucose ity of strip 00:00: [facility] Medical Branch Transparent 2020-02 Yes [id number] Use as [facility] Dressings 1-10 [id number] directed ity of (TEGADERM) 00:00: qod [place] 2 X 2 3/4 " 00 Medical [facility] Branch blood sugar 2020-02 Yes [id number] Test U nivers diagnostic 1-10 glucose ity of strip 00:00: [facility] Medical Branch Transparent 2020-02 Yes [id number] Use as [facility] Dressings 1-10 [id number] directed ity of (TEGADERM) 00:00: qod [place] 2 X 2 3/4 " 00 Medical [facility] Branch blood sugar 2020-02 Yes [id number] Test U nivers diagnostic 1-10 glucose ity of strip 00:00: [facility] Medical Branch Transparent 2020-02 Yes [id number] Use as [facility] Dressings 1-10 [id number] directed ity of (TEGADERM) 00:00: qod [place] 2 X 2 3/4 " 00 Medical [facility] Branch blood sugar 2020-02 Yes [id number] Test U nivers diagnostic 1-10 glucose ity of strip 00:00: [facility] 00 Medical Branch Transparent 2020-02 Yes [id number] Use as [facility] Dressings 1-10 [id number] directed ity of (TEGADERM) 00:00: qod [place] 2 X 2 3/4 " 00 Medical [facility] Branch blood sugar 2020-02 Yes [id number] Test U nivers diagnostic 1-10 glucose ity of strip 00:00: [facility] Medical Branch Transparent 2020- Yes [id number] Use as [facility] Dressings 1-10 [id number] directed ity of (TEGADERM) 00:00: qod [place] 2 X 2 3/4 " 00 Medical Bndg Branch blood sugar 2020-02 Yes [id number] Test U nivers diagnostic 1-10 glucose ity of strip 00:00: [facility] Branch Transparent 2020-02 Yes [id number] Use as [facility] Dressings 1-10 [id number] directed ity of (TEGADERM) 00:00: qod [place] 2 X 2 3/4 " 00 Medical Bndg Branch blood sugar 2020-02 Yes [id number] Test U nivers diagnostic 1-10 glucose ity of strip 00:00: [facility] Medical Branch blood sugar 2020-02 Yes [id number] Test U nivers diagnostic 1-10 glucose ity of strip 00:00: [facility] Medical Branch blood sugar 2020-02 Yes [id number] Test U nivers diagnostic 1-10 glucose ity of strip 00:00: [facility] Medical Branch blood sugar 2020-02 Yes [id number] Test U nivers diagnostic 1-10 glucose ity of strip 00:00: [facility] Medical Branch blood sugar 2020-02 Yes [id number] Test U nivers diagnostic 1-10 glucose ity of strip 00:00: [facility] Medical Branch blood sugar 2020-02 Yes [id number] Test U nivers diagnostic 1-10 glucose ity of strip 00:00: [facility] Medical Branch blood sugar 2020-02 Yes [id number] Test U nivers diagnostic 1-10 glucose ity of strip 00:00: [facility] Branch blood sugar 2020-02 Yes [id number] Test U nivers diagnostic 1-10 glucose ity of strip 00:00: [facility] Medical Branch blood sugar 2020- Yes [id number] Test U nivers diagnostic 1-10 glucose ity of strip 00:00: [facility] Medical Branch blood sugar 2020-02 Yes [id number] Test U nivers diagnostic 1-10 glucose ity of strip 00:00: [facility] Medical Branch blood sugar 2020- Yes [id number] Test U nivers diagnostic 1-10 glucose ity of strip 00:00: [facility] Medical Branch blood sugar 202- Yes [id number] Test U nivers diagnostic 1-10 glucose ity of strip 00:00: [facility] Branch blood sugar 202- Yes [id number] Test U nivers diagnostic 1-10 glucose ity of strip 00:00: [facility] Branch blood sugar 202- Yes [id number] Test U nivers diagnostic 1-10 glucose ity of strip 00:00: [facility] Branch blood sugar 202- Yes [id number] Test U nivers diagnostic 1-10 glucose ity of strip 00:00: [facility] Branch blood sugar 2020- Yes [id number] Test U nivers diagnostic 1-10 glucose ity of strip 00:00: [facility] Branch blood sugar 2020- Yes [id number] Test U nivers diagnostic 1-10 glucose ity of strip 00:00: [facility] Branch blood sugar 2020- Yes [id number] Test U nivers diagnostic 1-10 glucose ity of strip 00:00: [facility] Branch blood sugar 2020- Yes [id number] Test U nivers diagnostic 1-10 glucose ity of strip 00:00: [facility] Branch blood sugar 2020- Yes [id number] Test U nivers diagnostic 1-10 glucose ity of strip 00:00: [facility] Branch blood sugar 2020- Yes [id number] Test U nivers diagnostic 1-10 glucose ity of strip 00:00: [facility] Branch blood sugar 202- Yes [id number] Test U nivers diagnostic 1-10 glucose ity of strip 00:00: [facility] Branch blood sugar 2020- Yes [id number] Test U nivers diagnostic 1-10 glucose ity of strip 00:00: [facility] Branch blood sugar 202- Yes [id number] Test U nivers diagnostic 1-10 glucose ity of strip 00:00: [facility] Branch blood sugar 2020- Yes [id number] Test U nivers diagnostic 1-10 glucose ity of strip 00:00: [facility] Branch blood sugar 202-1 Yes [id number] Test U nivers diagnostic 1-10 glucose ity of strip 00:00: [facility] Branch blood sugar 2021- Yes [id number] Test U nivers diagnostic 1-10 glucose ity of strip 00:00: [facility] Branch blood sugar 2021-1 Yes [id number] Test U nivers diagnostic 1-10 glucose ity of strip 00:00: [facility] Medical Branch blood sugar 202- Yes [id number] Test U nivers diagnostic 1-10 glucose ity of strip 00:00: [facility] blood sugar 202- Yes [id number] Test U nivers diagnostic 1-10 glucose ity of strip 00:00: [facility] blood sugar 2020- Yes [id number] Test U nivers diagnostic 1-10 glucose ity of strip 00:00: [facility] blood sugar 2020- Yes [id number] Test U nivers diagnostic 1-10 glucose ity of strip 00:00: [facility] blood sugar 202- Yes [id number] Test U nivers diagnostic 1-10 glucose ity of strip 00:00: [facility] blood sugar 202- Yes [id number] Test U nivers diagnostic 1-10 glucose ity of strip 00:00: [facility] blood sugar 2020- Yes [id number] Test U nivers diagnostic 1-10 glucose ity of strip 00:00: [facility] blood sugar 202- Yes [id number] Test U nivers diagnostic 1-10 glucose ity of strip 00:00: [facility] blood sugar 2021-1 Yes [id number] Test U nivers diagnostic 1-10 glucose ity of strip 00:00: [facility] blood sugar 2021-1 Yes [id number] Test U nivers diagnostic 1-10 glucose ity of strip 00:00: [facility] blood sugar 202-1 Yes [id number] Test U nivers diagnostic 1-10 glucose ity of strip 00:00: [facility] blood sugar 202-1 Yes [id number] Test U nivers diagnostic 1-10 glucose ity of strip 00:00: [facility] blood sugar 2021- Yes [id number] Test U nivers diagnostic 1-10 glucose ity of strip 00:00: [facility] blood sugar 2020- Yes [id number] Test U nivers diagnostic 1-10 glucose ity of strip 00:00: [facility] blood sugar 2020- Yes [id number] Test U nivers diagnostic 1-10 glucose ity of strip 00:00: [facility] blood sugar 2020- Yes [id number] Test U nivers diagnostic 1-10 glucose ity of strip 00:00: [facility] blood sugar 2020-02 Yes [id number] Test U nivers diagnostic 1-10 glucose ity of strip 00:00: [facility] blood sugar 2020-02 Yes [id number] Test U nivers diagnostic 1-10 glucose ity of strip 00:00: [facility] blood sugar 2020-02 Yes [id number] Test U nivers diagnostic 1-10 glucose ity of strip 00:00: [facility] blood sugar 2020- Yes [id number] Test U nivers diagnostic 1-10 glucose ity of strip 00:00: [facility] blood sugar 2020-02 Yes [id number] Test U nivers diagnostic 1-10 glucose ity of strip 00:00: [facility] blood sugar 2020- Yes [id number] Test U nivers diagnostic 1-10 glucose ity of strip 00:00: [facility] blood sugar 2020- Yes [id number] Test U nivers diagnostic 1-10 glucose ity of strip 00:00: [facility] blood sugar 2020- Yes [id number] Test U nivers diagnostic 1-10 glucose ity of strip 00:00: [facility] blood sugar 2020- Yes [id number] Test U nivers diagnostic 1-10 glucose ity of strip 00:00: [facility] blood sugar 2020- Yes [id number] Test U nivers diagnostic 1-10 glucose ity of strip 00:00: [facility] blood sugar 2020- Yes [id number] Test U nivers diagnostic 1-10 glucose ity of strip 00:00: [facility] blood sugar 202- Yes [id number] Test U nivers diagnostic 1-10 glucose ity of strip 00:00: [facility] blood sugar 202- Yes [id number] Test U nivers diagnostic 1-10 glucose ity of strip 00:00: [facility] blood sugar 202- Yes [id number] Test U nivers diagnostic 1-10 glucose ity of strip 00:00: [facility] blood sugar 202- Yes [id number] Test U nivers diagnostic 1-10 glucose ity of strip 00:00: [facility] blood sugar 2020- Yes [id number] Test U nivers diagnostic 1-10 glucose ity of strip 00:00: [facility] blood sugar 2020- Yes [id number] Test U nivers diagnostic 1-10 glucose ity of strip 00:00: [facility] blood sugar 202- Yes [id number] Test U nivers diagnostic 1-10 glucose ity of strip 00:00: [facility] blood sugar 2020- Yes [id number] Test U nivers diagnostic 1-10 glucose ity of strip 00:00: [facility] blood sugar 2020- Yes [id number] Test U nivers diagnostic 1-10 glucose ity of strip 00:00: [facility] blood sugar 2020- Yes [id number] Test U nivers diagnostic 1-10 glucose ity of strip 00:00: [facility] blood sugar 202- Yes [id number] Test U nivers diagnostic 1-10 glucose ity of strip 00:00: [facility] blood sugar 2020- Yes [id number] Test U nivers diagnostic 1-10 glucose ity of strip 00:00: [facility] blood sugar 202- Yes [id number] Test U nivers diagnostic 1-10 glucose ity of strip 00:00: [facility] blood sugar 2020- Yes [id number] Test U nivers diagnostic 1-10 glucose ity of strip 00:00: [facility] blood sugar 202- Yes [id number] Test U nivers diagnostic 1-10 glucose ity of strip 00:00: [facility] blood sugar 2021- Yes [id number] Test U nivers diagnostic 1-10 glucose ity of strip 00:00: [facility] blood sugar 202- Yes [id number] Test U nivers diagnostic 1-10 glucose ity of strip 00:00: [facility] blood sugar 202- Yes [id number] Test U nivers diagnostic 1-10 glucose ity of strip 00:00: [facility] blood sugar 202- Yes [id number] Test U nivers diagnostic 1-10 glucose ity of strip 00:00: [facility] blood sugar 2020- Yes [id number] Test U nivers diagnostic 1-10 glucose ity of strip 00:00: [facility] blood sugar 2020- Yes [id number] Test U nivers diagnostic 1-10 glucose ity of strip 00:00: [facility] blood sugar 202- Yes [id number] Test U nivers diagnostic 1-10 glucose ity of strip 00:00: [facility] blood sugar 202- Yes [id number] Test U nivers diagnostic 1-10 glucose ity of strip 00:00: [facility] blood sugar 2020- Yes [id number] Test U nivers diagnostic 1-10 glucose ity of strip 00:00: [facility] blood sugar 202- Yes [id number] Test U nivers diagnostic 1-10 glucose ity of strip 00:00: [facility] blood sugar 202- Yes [id number] Test U nivers diagnostic 1-10 glucose ity of strip 00:00: [facility] blood sugar 202- Yes [id number] Test U nivers diagnostic 1-10 glucose ity of strip 00:00: [facility] blood sugar 202- Yes [id number] Test U nivers diagnostic 1-10 glucose ity of strip 00:00: [facility] blood sugar 202- Yes [id number] Test U nivers diagnostic 1-10 glucose ity of strip 00:00: [facility] blood sugar 2021- Yes [id number] Test U nivers diagnostic 1-10 glucose ity of strip 00:00: [facility] blood sugar 2020- Yes [id number] Test U nivers diagnostic 1-10 glucose ity of strip 00:00: [facility] blood sugar 2020- Yes [id number] Test U nivers diagnostic 1-10 glucose ity of strip 00:00: [facility] blood sugar 2020- Yes [id number] Test U nivers diagnostic 1-10 glucose ity of strip 00:00: [facility] blood sugar 2020- Yes [id number] Test U nivers diagnostic 1-10 glucose ity of strip 00:00: [facility] blood sugar 2020- Yes [id number] Test U nivers diagnostic 1-10 glucose ity of strip 00:00: [facility] blood sugar 2020- Yes [id number] Test U nivers diagnostic 1-10 glucose ity of strip 00:00: [facility] blood sugar 2020- Yes [id number] Test U nivers diagnostic 1-10 glucose ity of strip 00:00: [facility] blood sugar 2020- Yes [id number] Test U nivers diagnostic 1-10 glucose ity of strip 00:00: [facility] blood sugar 2020- Yes [id number] Test U nivers diagnostic 1-10 glucose ity of strip 00:00: [facility] blood sugar 2020- Yes [id number] Test U nivers diagnostic 1-10 glucose ity of strip 00:00: [facility] blood sugar 2020- Yes [id number] Test U nivers diagnostic 1-10 glucose ity of strip 00:00: [facility] blood sugar 2020- Yes [id number] Test U nivers diagnostic 1-10 glucose ity of strip 00:00: [facility] blood sugar 2020- Yes [id number] Test U nivers diagnostic 1-10 glucose ity of strip 00:00: [facility] blood sugar 2020- Yes [id number] Test U nivers diagnostic 1-10 glucose ity of strip 00:00: [facility] blood sugar 202- Yes [id number] Test U nivers diagnostic 1-10 glucose ity of strip 00:00: [facility] blood sugar 2020- Yes [id number] Test [facility] nivers diagnostic 1-10 glucose ity of strip 00:00: [facility] blood sugar 2020- Yes [id number] Test U nivers diagnostic 1-10 glucose ity of strip 00:00: [facility] blood sugar 2020- Yes [id number] Test U nivers diagnostic 1-10 glucose ity of strip 00:00: [facility] blood sugar 2020- Yes [id number] Test U nivers diagnostic 1-10 glucose ity of strip 00:00: [facility] blood sugar 2020- Yes [id number] Test U nivers diagnostic 1-10 glucose ity of strip 00:00: [facility] blood sugar 2020- Yes [id number] Test U nivers diagnostic 1-10 glucose ity of strip 00:00: [facility] blood sugar 2020- Yes [id number] Test U nivers diagnostic 1-10 glucose ity of strip 00:00: [facility] blood sugar 2020- Yes [id number] Test U nivers diagnostic 1-10 glucose ity of strip 00:00: [facility] blood sugar 2020- Yes [id number] Test U nivers diagnostic 1-10 glucose ity of strip 00:00: [facility] blood sugar 2020- Yes [id number] Test U nivers diagnostic 1-10 glucose ity of strip 00:00: [facility] blood sugar 2020- Yes [id number] Test [facility] nivers diagnostic 1-10 glucose ity of strip 00:00: [facility] blood sugar 2020- Yes [id number] Test U nivers diagnostic 1-10 glucose ity of strip 00:00: [facility] blood sugar 2020- Yes [id number] Test U nivers diagnostic 1-10 glucose ity of strip 00:00: [facility] blood sugar 2020- Yes [id number] Test U nivers diagnostic 1-10 glucose ity of strip 00:00: [facility] blood sugar 202- Yes [id number] Test U nivers diagnostic 1-10 glucose ity of strip 00:00: [facility] blood sugar 202- Yes [id number] Test U nivers diagnostic 1-10 glucose ity of strip 00:00: [facility] blood sugar 202- Yes [id number] Test U nivers diagnostic 1-10 glucose ity of strip 00:00: [facility] blood sugar 202- Yes [id number] Test U nivers diagnostic 1-10 glucose ity of strip 00:00: [facility] blood sugar 2020- Yes [id number] Test U nivers diagnostic 1-10 glucose ity of strip 00:00: [facility] blood sugar 2020- Yes [id number] Test U nivers diagnostic 1-10 glucose ity of strip 00:00: [facility] blood sugar 202- Yes [id number] Test U nivers diagnostic 1-10 glucose ity of strip 00:00: [facility] blood sugar 2020- Yes [id number] Test U nivers diagnostic 1-10 glucose ity of strip 00:00: [facility] blood sugar 202- Yes [id number] Test U nivers diagnostic 1-10 glucose ity of strip 00:00: [facility] blood sugar 202- Yes [id number] Test U nivers diagnostic 1-10 glucose ity of strip 00:00: [facility] blood sugar 202- Yes [id number] Test U nivers diagnostic 1-10 glucose ity of strip 00:00: [facility] blood sugar 202- Yes [id number] Test U nivers diagnostic 1-10 glucose ity of strip 00:00: [facility] blood sugar 202- Yes [id number] Test [facility] nivers diagnostic 1-10 glucose ity of strip 00:00: [facility] blood sugar 202- Yes [id number] Test U nivers diagnostic 1-10 glucose ity of strip 00:00: [facility] blood sugar 202- Yes [id number] Test U nivers diagnostic 1-10 glucose ity of strip 00:00: qid [place] 00 [facility] blood sugar 2020-02 Yes [id number] Test U nivers diagnostic 1-10 glucose ity of strip 00:00: qid [place] 00 [facility] Transparent 2020-022- No [id number] Use as [employer] 02-24 [id number] directed ity of (TEGADERM) 00:00: 00:00 qod [place] 2 X 2 3/4 " 00 :00 [facility] B[facility] Branch zinc Yes [id number] 220mg Take 1 [facility] vers sulfate 50 9-30 778584 capsule by i ty of mg zinc 00:00: mouth [place] (220 mg) 00 daily. Medical capsule Branch zinc Yes [id number] 220mg Take 1 [facility] vers sulfate 50 9-30 [id number] capsule by i ty of mg zinc 00:00: mouth [place] (220 mg) 00 daily. Medical capsule Branch zinc Yes [id number] 220mg Take 1 [facility] vers sulfate 50 9-30 884579 capsule by i ty of mg zinc 00:00: mouth [place] (220 mg) 00 daily. Medical capsule Branch zinc Yes [id number] 220mg Take 1 [facility] vers sulfate 50 9-30 [id number] capsule by i ty of mg zinc 00:00: mouth [place] (220 mg) 00 daily. Medical capsule Branch zinc Yes [id number] 220mg Take 1 [facility] vers sulfate 50 9-30 [id number] capsule by i ty of mg zinc 00:00: mouth [place] (220 mg) 00 daily. Medical capsule Branch zinc Yes [id number] 220mg Take 1 [facility] vers sulfate 50 9-30 [id number] capsule by i ty of mg zinc 00:00: mouth [place] (220 mg) 00 daily. Medical capsule Branch zinc Yes [id number] 220mg Take 1 [facility] vers sulfate 50 9-30 [id number] capsule by i ty of mg zinc 00:00: mouth [place] (220 mg) 00 daily. Medical capsule Branch zinc Yes [id number] 220mg Take 1 [facility] vers sulfate 50 9-30 [id number] capsule by i ty of mg zinc 00:00: mouth [place] (220 mg) 00 daily. Medical capsule Branch zinc Yes [id number] 220mg Take 1 [facility] vers sulfate 50 9-30 [id number] capsule by i ty of mg zinc 00:00: mouth [place] (220 mg) 00 daily. Medical capsule Branch zinc Yes [id number] 220mg Take 1 [facility] vers sulfate 50 9-30 [id number] capsule by i ty of mg zinc 00:00: mouth [place] (220 mg) 00 daily. Medical capsule Branch zinc Yes [id number] 220mg Take 1 [facility] vers sulfate 50 9-30 953815 capsule by i ty of mg zinc 00:00: mouth [place] (220 mg) 00 daily. Medical capsule Branch zinc Yes [id number] 220mg Take 1 [facility] vers sulfate 50 9-30 164135 capsule by i ty of mg zinc 00:00: mouth [place] (220 mg) 00 daily. Medical capsule Branch zinc Yes [id number] 220mg Take 1 [facility] vers sulfate 50 9-30 [id number] capsule by i ty of mg zinc 00:00: mouth [place] (220 mg) 00 daily. Medical capsule Branch zinc Yes [id number] 220mg Take 1 [facility] vers sulfate 50 9-30 [id number] capsule by i ty of mg zinc 00:00: mouth [place] (220 mg) 00 daily. Medical capsule Branch zinc Yes [id number] 220mg Take 1 [facility] vers sulfate 50 9-30 [id number] capsule by i ty of mg zinc 00:00: mouth [place] (220 mg) 00 daily. Medical capsule Branch zinc Yes [id number] 220mg Take 1 [facility] vers sulfate 50 9-30 [id number] capsule by i ty of mg zinc 00:00: mouth [place] (220 mg) 00 daily. Medical capsule Branch zinc Yes [id number] 220mg Take 1 [facility] vers sulfate 50 9-30 [id number] capsule by i ty of mg zinc 00:00: mouth [place] (220 mg) 00 daily. Medical capsule Branch zinc Yes [id number] 220mg Take 1 [facility] vers sulfate 50 9-30 [id number] capsule by i ty of mg zinc 00:00: mouth [place] (220 mg) 00 daily. Medical capsule Branch zinc Yes [id number] 220mg Take 1 [facility] vers sulfate 50 9-30 [id number] capsule by i ty of mg zinc 00:00: mouth [place] (220 mg) 00 daily. Medical capsule Branch zinc Yes [id number] 220mg Take 1 [facility] vers sulfate 50 9-30 [id number] capsule by i ty of mg zinc 00:00: mouth [place] (220 mg) 00 daily. Medical capsule Branch zinc Yes [id number] 220mg Take 1 [facility] vers sulfate 50 9-30 [id number] capsule by i ty of mg zinc 00:00: mouth [place] (220 mg) 00 daily. Medical capsule Branch zinc Yes [id number] 220mg Take 1 [facility] vers sulfate 50 9-30 [id number] capsule by i ty of mg zinc 00:00: mouth [place] (220 mg) 00 daily. Medical capsule Branch zinc Yes [id number] 220mg Take 1 [facility] vers sulfate 50 9-30 [id number] capsule by i ty of mg zinc 00:00: mouth [place] (220 mg) 00 daily. Medical capsule Branch zinc Yes [id number] 220mg Take 1 [facility] vers sulfate 50 9-30 [id number] capsule by i ty of mg zinc 00:00: mouth [place] (220 mg) 00 daily. Medical capsule Branch zinc Yes [id number] 220mg Take 1 [facility] vers sulfate 50 9-30 [id number] capsule by i ty of mg zinc 00:00: mouth [place] (220 mg) 00 daily. Medical capsule Branch zinc Yes [id number] 220mg Take 1 [facility] vers sulfate 50 9-30 869005 capsule by i ty of mg zinc 00:00: mouth [place] (220 mg) 00 daily. Medical capsule Branch zinc Yes [id number] 220mg Take 1 [facility] vers sulfate 50 9-30 147885 capsule by i ty of mg zinc 00:00: mouth [place] (220 mg) 00 daily. Medical capsule Branch zinc Yes [id number] 220mg Take 1 [facility] vers sulfate 50 9-30 [id number] capsule by i ty of mg zinc 00:00: mouth [place] (220 mg) 00 daily. Medical capsule Branch zinc Yes [id number] 220mg Take 1 [facility] vers sulfate 50 9-30 [id number] capsule by i ty of mg zinc 00:00: mouth [place] (220 mg) 00 daily. Medical capsule Branch zinc Yes [id number] 220mg Take 1 [facility] vers sulfate 50 9-30 [id number] capsule by i ty of mg zinc 00:00: mouth [place] (220 mg) 00 daily. Medical capsule Branch zinc Yes [id number] 220mg Take 1 [facility] vers sulfate 50 9-30 376254 capsule by i ty of mg zinc 00:00: mouth [place] (220 mg) 00 daily. Medical capsule Branch zinc Yes [id number] 220mg Take 1 [facility] vers sulfate 50 9-30 123634 capsule by i ty of mg zinc 00:00: mouth [place] (220 mg) 00 daily. Medical capsule Branch zinc Yes [id number] 220mg Take 1 [facility] vers sulfate 50 9-30 283908 capsule by i ty of mg zinc 00:00: mouth [place] (220 mg) 00 daily. Medical capsule Branch zinc Yes [id number] 220mg Take 1 [facility] vers sulfate 50 9-30 [id number] capsule by i ty of mg zinc 00:00: mouth [place] (220 mg) 00 daily. Medical capsule Branch zinc Yes [id number] 220mg Take 1 [facility] vers sulfate 50 9-30 898161 capsule by i ty of mg zinc 00:00: mouth [place] (220 mg) 00 daily. Medical capsule Branch zinc Yes [id number] 220mg Take 1 [facility] vers sulfate 50 9-30 [id number] capsule by i ty of mg zinc 00:00: mouth [place] (220 mg) 00 daily. Medical capsule Branch zinc Yes [id number] 220mg Take 1 [facility] vers sulfate 50 9-30 752560 capsule by i ty of mg zinc 00:00: mouth [place] (220 mg) 00 daily. Medical capsule Branch zinc Yes [id number] 220mg Take 1 [facility] vers sulfate 50 9-30 [id number] capsule by i ty of mg zinc 00:00: mouth [place] (220 mg) 00 daily. Medical capsule Branch zinc Yes [id number] 220mg Take 1 [facility] vers sulfate 50 9-30 [id number] capsule by i ty of mg zinc 00:00: mouth [place] (220 mg) 00 daily. Medical capsule Branch zinc Yes [id number] 220mg Take 1 [facility] vers sulfate 50 9-30 [id number] capsule by i ty of mg zinc 00:00: mouth [place] (220 mg) 00 daily. Medical capsule Branch zinc 2020- Yes [id number] 220mg Take 1 [facility] vers sulfate 50 9-30 [id number] capsule by i ty of mg zinc 00:00: mouth [place] (220 mg) 00 daily. Medical capsule Branch zinc Yes [id number] 220mg Take 1 [facility] vers sulfate 50 9-30 800864 capsule by i ty of mg zinc 00:00: mouth [place] (220 mg) 00 daily. Medical capsule Branch zinc Yes [id number] 220mg Take 1 [facility] vers sulfate 50 9-30 761645 capsule by i ty of mg zinc 00:00: mouth [place] (220 mg) 00 daily. Medical capsule Branch zinc Yes [id number] 220mg Take 1 [facility] vers sulfate 50 9-30 [id number] capsule by i ty of mg zinc 00:00: mouth [place] (220 mg) 00 daily. Medical capsule Branch zinc Yes [id number] 220mg Take 1 [facility] vers sulfate 50 9-30 958107 capsule by i ty of mg zinc 00:00: mouth [place] (220 mg) 00 daily. Medical capsule Branch zinc Yes [id number] 220mg Take 1 [facility] vers sulfate 50 9-30 [id number] capsule by i ty of mg zinc 00:00: mouth [place] (220 mg) 00 daily. Medical capsule Branch zinc Yes [id number] 220mg Take 1 [facility] vers sulfate 50 9-30 [id number] capsule by i ty of mg zinc 00:00: mouth [place] (220 mg) 00 daily. Medical capsule Branch zinc Yes [id number] 220mg Take 1 [facility] vers sulfate 50 9-30 741832 capsule by i ty of mg zinc 00:00: mouth [place] (220 mg) 00 daily. Medical capsule Branch zinc Yes [id number] 220mg Take 1 [facility] vers sulfate 50 9-30 [id number] capsule by i ty of mg zinc 00:00: mouth [place] (220 mg) 00 daily. Medical capsule Branch zinc Yes [id number] 220mg Take 1 [facility] vers sulfate 50 9-30 [id number] capsule by i ty of mg zinc 00:00: mouth [place] (220 mg) 00 daily. Medical capsule Branch zinc Yes [id number] 220mg Take 1 [facility] vers sulfate 50 9-30 [id number] capsule by i ty of mg zinc 00:00: mouth [place] (220 mg) 00 daily. Medical capsule Branch zinc Yes [id number] 220mg Take 1 [facility] vers sulfate 50 9-30 [id number] capsule by i ty of mg zinc 00:00: mouth [place] (220 mg) 00 daily. Medical capsule Branch zinc Yes [id number] 220mg Take 1 [facility] vers sulfate 50 9-30 007730 capsule by i ty of mg zinc 00:00: mouth [place] (220 mg) 00 daily. Medical capsule Branch zinc Yes [id number] 220mg Take 1 [facility] vers sulfate 50 9-30 [id number] capsule by i ty of mg zinc 00:00: mouth [place] (220 mg) 00 daily. Medical capsule Branch zinc Yes [id number] 220mg Take 1 [facility] vers sulfate 50 9-30 [id number] capsule by i ty of mg zinc 00:00: mouth [place] (220 mg) 00 daily. Medical capsule Branch zinc Yes [id number] 220mg Take 1 [facility] vers sulfate 50 9-30 552443 capsule by i ty of mg zinc 00:00: mouth [place] (220 mg) 00 daily. Medical capsule Branch zinc Yes [id number] 220mg Take 1 [facility] vers sulfate 50 9-30 [id number] capsule by i ty of mg zinc 00:00: mouth [place] (220 mg) 00 daily. Medical capsule Branch zinc Yes [id number] 220mg Take 1 [facility] vers sulfate 50 9-30 [id number] capsule by i ty of mg zinc 00:00: mouth [place] (220 mg) 00 daily. Medical capsule Branch zinc Yes [id number] 220mg Take 1 [facility] vers sulfate 50 9-30 [id number] capsule by i ty of mg zinc 00:00: mouth [place] (220 mg) 00 daily. Medical capsule Branch zinc Yes [id number] 220mg Take 1 [facility] vers sulfate 50 9-30 175577 capsule by i ty of mg zinc 00:00: mouth [place] (220 mg) 00 daily. Medical capsule Branch zinc Yes [id number] 220mg Take 1 [facility] vers sulfate 50 9-30 788850 capsule by i ty of mg zinc 00:00: mouth [place] (220 mg) 00 daily. Medical capsule Branch zinc Yes [id number] 220mg Take 1 [facility] vers sulfate 50 9-30 161377 capsule by i ty of mg zinc 00:00: mouth [place] (220 mg) 00 daily. Medical capsule Branch zinc Yes [id number] 220mg Take 1 [facility] vers sulfate 50 9-30 815762 capsule by i ty of mg zinc 00:00: mouth [place] (220 mg) 00 daily. Medical capsule Branch zinc Yes [id number] 220mg Take 1 [facility] vers sulfate 50 9-30 [id number] capsule by i ty of mg zinc 00:00: mouth [place] (220 mg) 00 daily. Medical capsule Branch zinc Yes [id number] 220mg Take 1 Uni vers sulfate 50 9-30 [id number] capsule by i ty of mg zinc 00:00: mouth [place] (220 mg) 00 daily. Medical capsule Branch zinc Yes [id number] 220mg Take 1 [facility] vers sulfate 50 9-30 [id number] capsule by i ty of mg zinc 00:00: mouth [place] (220 mg) 00 daily. Medical capsule Branch zinc Yes [id number] 220mg Take 1 [facility] vers sulfate 50 9-30 852427 capsule by i ty of mg zinc 00:00: mouth [place] (220 mg) 00 daily. Medical capsule Branch zinc Yes [id number] 220mg Take 1 [facility] vers sulfate 50 9-30 846403 capsule by i ty of mg zinc 00:00: mouth [place] (220 mg) 00 daily. [facility] capsule [facility] zinc Yes [id number] 220mg Take 1 [facility] sulfate 50 9-30 [id number] capsule by i ty of mg zinc 00:00: mouth [place] (220 mg) 00 daily. [facility] capsule [facility] zinc Yes [id number] 220mg Take 1 [facility] sulfate 50 9-30 [id number] capsule by i ty of mg zinc 00:00: mouth [place] (220 mg) 00 daily. [facility] capsule [facility] zinc Yes [id number] 220mg Take 1 [facility] sulfate 50 9-30 [id number] capsule by i ty of mg zinc 00:00: mouth [place] (220 mg) 00 daily. [facility] capsule [facility] zinc Yes [id number] 220mg Take 1 [facility] sulfate 50 9-30 [id number] capsule by i ty of mg zinc 00:00: mouth [place] (220 mg) 00 daily. [facility] capsule [facility] zinc Yes [id number] 220mg Take 1 [facility] sulfate 50 9-30 [id number] capsule by i ty of mg zinc 00:00: mouth [place] (220 mg) 00 daily. [facility] capsule [facility] zinc Yes [id number] 220mg Take 1 [facility] sulfate 50 9-30 [id number] capsule by i ty of mg zinc 00:00: mouth [place] (220 mg) 00 daily. [facility] capsule [facility] zinc Yes [id number] 220mg Take 1 [facility] sulfate 50 9-30 [id number] capsule by i ty of mg zinc 00:00: mouth [place] (220 mg) 00 daily. [facility] capsule [facility] zinc Yes [id number] 220mg Take 1 [facility] sulfate 50 9-30 [id number] capsule by i ty of mg zinc 00:00: mouth [place] (220 mg) 00 daily. [facility] capsule [facility] zinc Yes [id number] 220mg Take 1 [facility] sulfate 50 9-30 [id number] capsule by i ty of mg zinc 00:00: mouth [place] (220 mg) 00 daily. [facility] capsule [facility] zinc Yes [id number] 220mg Take 1 [facility] sulfate 50 9-30 [id number] capsule by i ty of mg zinc 00:00: mouth [place] (220 mg) 00 daily. [facility] capsule [facility] zinc Yes [id number] 220mg Take 1 [facility] sulfate 50 9-30 [id number] capsule by i ty of mg zinc 00:00: mouth [place] (220 mg) 00 daily. [facility] capsule [facility] zinc Yes [id number] 220mg Take 1 [facility] sulfate 50 9-30 [id number] capsule by i ty of mg zinc 00:00: mouth [place] (220 mg) 00 daily. [facility] capsule [facility] zinc Yes [id number] 220mg Take 1 [facility] sulfate 50 9-30 [id number] capsule by i ty of mg zinc 00:00: mouth [place] (220 mg) 00 daily. [facility] capsule [facility] zinc Yes [id number] 220mg Take 1 [facility] sulfate 50 9-30 [id number] capsule by i ty of mg zinc 00:00: mouth [place] (220 mg) 00 daily. [facility] capsule [facility] zinc Yes [id number] 220mg Take 1 [facility] sulfate 50 9-30 [id number] capsule by i ty of mg zinc 00:00: mouth [place] (220 mg) 00 daily. [facility] capsule [facility] zinc Yes [id number] 220mg Take 1 [facility] sulfate 50 9-30 [id number] capsule by i ty of mg zinc 00:00: mouth [place] (220 mg) 00 daily. [facility] capsule [facility] zinc Yes [id number] 220mg Take 1 [facility] sulfate 50 9-30 [id number] capsule by i ty of mg zinc 00:00: mouth [place] (220 mg) 00 daily. [facility] capsule [facility] zinc Yes [id number] 220mg Take 1 [facility] sulfate 50 9-30 [id number] capsule by i ty of mg zinc 00:00: mouth [place] (220 mg) 00 daily. [facility] capsule [facility] zinc Yes [id number] 220mg Take 1 [facility] sulfate 50 9-30 [id number] capsule by i ty of mg zinc 00:00: mouth [place] (220 mg) 00 daily. [facility] capsule [facility] zinc Yes [id number] 220mg Take 1 [facility] sulfate 50 9-30 [id number] capsule by i ty of mg zinc 00:00: mouth [place] (220 mg) 00 daily. [facility] capsule [facility] zinc Yes [id number] 220mg Take 1 [facility] sulfate 50 9-30 [id number] capsule by i ty of mg zinc 00:00: mouth [place] (220 mg) 00 daily. [facility] capsule [facility] zinc Yes [id number] 220mg Take 1 [facility] sulfate 50 9-30 [id number] capsule by i ty of mg zinc 00:00: mouth [place] (220 mg) 00 daily. [facility] capsule [facility] zinc Yes [id number] 220mg Take 1 [facility] sulfate 50 9-30 [id number] capsule by i ty of mg zinc 00:00: mouth [place] (220 mg) 00 daily. [facility] capsule [facility] zinc Yes [id number] 220mg Take 1 [facility] sulfate 50 9-30 [id number] capsule by i ty of mg zinc 00:00: mouth [place] (220 mg) 00 daily. [facility] capsule [facility] zinc Yes [id number] 220mg Take 1 [facility] sulfate 50 9-30 [id number] capsule by i ty of mg zinc 00:00: mouth [place] (220 mg) 00 daily. [facility] capsule [facility] zinc Yes [id number] 220mg Take 1 [facility] sulfate 50 9-30 [id number] capsule by i ty of mg zinc 00:00: mouth [place] (220 mg) 00 daily. [facility] capsule [facility] zinc Yes [id number] 220mg Take 1 [facility] sulfate 50 9-30 [id number] capsule by i ty of mg zinc 00:00: mouth [place] (220 mg) 00 daily. [facility] capsule [facility] zinc Yes [id number] 220mg Take 1 [facility] sulfate 50 9-30 [id number] capsule by i ty of mg zinc 00:00: mouth [place] (220 mg) 00 daily. [facility] capsule [facility] zinc Yes [id number] 220mg Take 1 [facility] sulfate 50 9-30 [id number] capsule by i ty of mg zinc 00:00: mouth [place] (220 mg) 00 daily. [facility] capsule [facility] zinc Yes [id number] 220mg Take 1 [facility] sulfate 50 9-30 [id number] capsule by i ty of mg zinc 00:00: mouth [place] (220 mg) 00 daily. [facility] capsule [facility] zinc Yes [id number] 220mg Take 1 [facility] sulfate 50 9-30 [id number] capsule by i ty of mg zinc 00:00: mouth [place] (220 mg) 00 daily. [facility] capsule [facility] zinc Yes [id number] 220mg Take 1 [facility] sulfate 50 9-30 [id number] capsule by i ty of mg zinc 00:00: mouth [place] (220 mg) 00 daily. [facility] capsule [facility] zinc Yes [id number] 220mg Take 1 [facility] sulfate 50 9-30 [id number] capsule by i ty of mg zinc 00:00: mouth [place] (220 mg) 00 daily. [facility] capsule [facility] zinc Yes [id number] 220mg Take 1 [facility] sulfate 50 9-30 [id number] capsule by i ty of mg zinc 00:00: mouth [place] (220 mg) 00 daily. [facility] capsule [facility] zinc Yes [id number] 220mg Take 1 [facility] sulfate 50 9-30 [id number] capsule by i ty of mg zinc 00:00: mouth [place] (220 mg) 00 daily. [facility] capsule [facility] zinc Yes [id number] 220mg Take 1 [facility] sulfate 50 9-30 [id number] capsule by i ty of mg zinc 00:00: mouth [place] (220 mg) 00 daily. [facility] capsule [facility] zinc Yes [id number] 220mg Take 1 [facility] sulfate 50 9-30 199775 capsule by i ty of mg zinc 00:00: mouth [place] (220 mg) 00 daily. [facility] capsule [facility] zinc Yes [id number] 220mg Take 1 [facility] sulfate 50 9-30 [id number] capsule by i ty of mg zinc 00:00: mouth [place] (220 mg) 00 daily. [facility] capsule [facility] zinc Yes [id number] 220mg Take 1 [facility] sulfate 50 9-30 [id number] capsule by i ty of mg zinc 00:00: mouth [place] (220 mg) 00 daily. [facility] capsule [facility] zinc Yes [id number] 220mg Take 1 [facility] sulfate 50 9-30 [id number] capsule by i ty of mg zinc 00:00: mouth [place] (220 mg) 00 daily. [facility] capsule [facility] zinc Yes [id number] 220mg Take 1 [facility] sulfate 50 9-30 [id number] capsule by i ty of mg zinc 00:00: mouth [place] (220 mg) 00 daily. [facility] capsule [facility] zinc Yes [id number] 220mg Take 1 [facility] sulfate 50 9-30 [id number] capsule by i ty of mg zinc 00:00: mouth [place] (220 mg) 00 daily. [facility] capsule [facility] zinc Yes [id number] 220mg Take 1 [facility] sulfate 50 9-30 [id number] capsule by i ty of mg zinc 00:00: mouth [place] (220 mg) 00 daily. [facility] capsule [facility] zinc Yes [id number] 220mg Take 1 [facility] sulfate 50 9-30 [id number] capsule by i ty of mg zinc 00:00: mouth [place] (220 mg) 00 daily. [facility] capsule [facility] zinc Yes [id number] 220mg Take 1 [facility] sulfate 50 9-30 [id number] capsule by i ty of mg zinc 00:00: mouth [place] (220 mg) 00 daily. [facility] capsule [facility] zinc Yes [id number] 220mg Take 1 [facility] sulfate 50 9-30 [id number] capsule by i ty of mg zinc 00:00: mouth [place] (220 mg) 00 daily. [facility] capsule [facility] zinc Yes [id number] 220mg Take 1 [facility] sulfate 50 9-30 [id number] capsule by i ty of mg zinc 00:00: mouth [place] (220 mg) 00 daily. [facility] capsule [facility] zinc Yes [id number] 220mg Take 1 [facility] sulfate 50 9-30 [id number] capsule by i ty of mg zinc 00:00: mouth [place] (220 mg) 00 daily. [facility] capsule [facility] zinc Yes [id number] 220mg Take 1 [facility] sulfate 50 9-30 [id number] capsule by i ty of mg zinc 00:00: mouth [place] (220 mg) 00 daily. [facility] capsule [facility] zinc Yes [id number] 220mg Take 1 [facility] sulfate 50 9-30 [id number] capsule by i ty of mg zinc 00:00: mouth [place] (220 mg) 00 daily. [facility] capsule [facility] zinc Yes [id number] 220mg Take 1 [facility] sulfate 50 9-30 [id number] capsule by i ty of mg zinc 00:00: mouth [place] (220 mg) 00 daily. [facility] capsule [facility] zinc Yes [id number] 220mg Take 1 [facility] sulfate 50 9-30 [id number] capsule by i ty of mg zinc 00:00: mouth [place] (220 mg) 00 daily. [facility] capsule [facility] zinc Yes [id number] 220mg Take 1 [facility] sulfate 50 9-30 [id number] capsule by i ty of mg zinc 00:00: mouth [place] (220 mg) 00 daily. [facility] capsule [facility] zinc Yes [id number] 220mg Take 1 [facility] sulfate 50 9-30 [id number] capsule by i ty of mg zinc 00:00: mouth [place] (220 mg) 00 daily. [facility] capsule [facility] zinc Yes [id number] 220mg Take 1 [facility] sulfate 50 9-30 [id number] capsule by i ty of mg zinc 00:00: mouth [place] (220 mg) 00 daily. [facility] capsule [facility] zinc Yes [id number] 220mg Take 1 [facility] sulfate 50 9-30 [id number] capsule by i ty of mg zinc 00:00: mouth [place] (220 mg) 00 daily. [facility] capsule [facility] zinc Yes [id number] 220mg Take 1 [facility] sulfate 50 9-30 [id number] capsule by i ty of mg zinc 00:00: mouth [place] (220 mg) 00 daily. [facility] capsule [facility] zinc Yes [id number] 220mg Take 1 [facility] sulfate 50 9-30 [id number] capsule by i ty of mg zinc 00:00: mouth [place] (220 mg) 00 daily. [facility] capsule [facility] zinc Yes [id number] 220mg Take 1 [facility] sulfate 50 9-30 [id number] capsule by i ty of mg zinc 00:00: mouth [place] (220 mg) 00 daily. [facility] capsule [facility] zinc Yes [id number] 220mg Take 1 [facility] sulfate 50 9-30 [id number] capsule by i ty of mg zinc 00:00: mouth [place] (220 mg) 00 daily. [facility] capsule [facility] zinc Yes [id number] 220mg Take 1 [facility] sulfate 50 9-30 [id number] capsule by i ty of mg zinc 00:00: mouth [place] (220 mg) 00 daily. [facility] capsule [facility] zinc Yes [id number] 220mg Take 1 [facility] sulfate 50 9-30 [id number] capsule by i ty of mg zinc 00:00: mouth [place] (220 mg) 00 daily. [facility] capsule [facility] zinc Yes [id number] 220mg Take 1 [facility] sulfate 50 9-30 [id number] capsule by i ty of mg zinc 00:00: mouth [place] (220 mg) 00 daily. [facility] capsule [facility] zinc Yes [id number] 220mg Take 1 [facility] sulfate 50 9-30 [id number] capsule by i ty of mg zinc 00:00: mouth [place] (220 mg) 00 daily. Medical capsule [facility] zinc Yes [id number] 220mg Take 1 [facility] sulfate 50 9-30 [id number] capsule by i ty of mg zinc 00:00: mouth [place] (220 mg) 00 daily. [facility] capsule [facility] zinc Yes [id number] 220mg Take 1 [facility] sulfate 50 9-30 [id number] capsule by i ty of mg zinc 00:00: mouth [place] (220 mg) 00 daily. [facility] capsule [facility] zinc Yes [id number] 220mg Take 1 [facility] sulfate 50 9-30 [id number] capsule by i ty of mg zinc 00:00: mouth [place] (220 mg) 00 daily. [facility] capsule [facility] zinc Yes [id number] 220mg Take 1 [facility] sulfate 50 9-30 [id number] capsule by i ty of mg zinc 00:00: mouth [place] (220 mg) 00 daily. [facility] capsule [facility] zinc Yes [id number] 220mg Take 1 [facility] sulfate 50 9-30 810037 capsule by i ty of mg zinc 00:00: mouth [place] (220 mg) 00 daily. [facility] capsule [facility] zinc Yes [id number] 220mg Take 1 [facility] sulfate 50 9-30 [id number] capsule by i ty of mg zinc 00:00: mouth [place] (220 mg) 00 daily. [facility] capsule [facility] zinc Yes [id number] 220mg Take 1 [facility] sulfate 50 9-30 [id number] capsule by i ty of mg zinc 00:00: mouth [place] (220 mg) 00 daily. [facility] capsule [facility] zinc Yes [id number] 220mg Take 1 [facility] sulfate 50 9-30 [id number] capsule by i ty of mg zinc 00:00: mouth [place] (220 mg) 00 daily. Medical capsule [facility] zinc Yes [id number] 220mg Take 1 [facility] sulfate 50 9-30 [id number] capsule by i ty of mg zinc 00:00: mouth [place] (220 mg) 00 daily. [facility] capsule [facility] zinc Yes [id number] 220mg Take 1 [facility] sulfate 50 9-30 [id number] capsule by i ty of mg zinc 00:00: mouth [place] (220 mg) 00 daily. [facility] capsule [facility] zinc Yes [id number] 220mg Take 1 [facility] sulfate 50 9-30 [id number] capsule by i ty of mg zinc 00:00: mouth [place] (220 mg) 00 daily. [facility] capsule [facility] zinc Yes [id number] 220mg Take 1 [facility] sulfate 50 9-30 [id number] capsule by i ty of mg zinc 00:00: mouth [place] (220 mg) 00 daily. [facility] capsule [facility] zinc Yes [id number] 220mg Take 1 [facility] sulfate 50 9-30 [id number] capsule by i ty of mg zinc 00:00: mouth [place] (220 mg) 00 daily. [facility] capsule [facility] zinc Yes [id number] 220mg Take 1 [facility] sulfate 50 9-30 [id number] capsule by i ty of mg zinc 00:00: mouth [place] (220 mg) 00 daily. [facility] capsule [facility] zinc Yes [id number] 220mg Take 1 [facility] sulfate 50 9-30 [id number] capsule by i ty of mg zinc 00:00: mouth [place] (220 mg) 00 daily. [facility] capsule [facility] zinc Yes [id number] 220mg Take 1 [facility] sulfate 50 9-30 [id number] capsule by i ty of mg zinc 00:00: mouth [place] (220 mg) 00 daily. [facility] capsule [facility] zinc Yes [id number] 220mg Take 1 [facility] sulfate 50 9-30 [id number] capsule by i ty of mg zinc 00:00: mouth [place] (220 mg) 00 daily. [facility] capsule [facility] zinc Yes [id number] 220mg Take 1 [facility] sulfate 50 9-30 [id number] capsule by i ty of mg zinc 00:00: mouth [place] (220 mg) 00 daily. [facility] capsule [facility] zinc Yes [id number] 220mg Take 1 [facility] sulfate 50 9-30 [id number] capsule by i ty of mg zinc 00:00: mouth [place] (220 mg) 00 daily. [facility] capsule [facility] zinc Yes [id number] 220mg Take 1 [facility] sulfate 50 9-30 [id number] capsule by i ty of mg zinc 00:00: mouth [place] (220 mg) 00 daily. Medical capsule [facility] zinc Yes [id number] 220mg Take 1 [facility] sulfate 50 9-30 [id number] capsule by i ty of mg zinc 00:00: mouth [place] (220 mg) 00 daily. [facility] capsule [facility] zinc Yes [id number] 220mg Take 1 [facility] sulfate 50 9-30 [id number] capsule by i ty of mg zinc 00:00: mouth [place] (220 mg) 00 daily. [facility] capsule [facility] zinc Yes [id number] 220mg Take 1 [facility] sulfate 50 9-30 [id number] capsule by i ty of mg zinc 00:00: mouth [place] (220 mg) 00 daily. [facility] capsule [facility] zinc Yes [id number] 220mg Take 1 [facility] sulfate 50 9-30 [id number] capsule by i ty of mg zinc 00:00: mouth [place] (220 mg) 00 daily. Medical capsule [facility] zinc Yes [id number] 220mg Take 1 [facility] sulfate 50 9-30 [id number] capsule by i ty of mg zinc 00:00: mouth [place] (220 mg) 00 daily. Medical capsule [facility] ascorbic Yes [id number] 500mg Take 1 [facility] acid, 11-13 [id number] tablet by [facility] of vitamin C, 00:00: mouth 2 [place] 500 mg 00 (two) Medical tablet times Branch daily. ascorbic 0 Yes [id number] 500mg Take 1 [facility] acid, 11-13 [id number] tablet by [facility] vitamin C, 00:00: mouth 2 [place] 500 mg 00 (two) Medical tablet times Branch daily. ascorbic Yes [id number] 500mg Take 1 [facility] acid, 11-13 [id number] tablet by [facility] vitamin C, 00:00: mouth 2 [place] 500 mg 00 (two) Medical tablet times Branch daily. ascorbic 2020-0 Yes [id number] 500mg Take 1 [facility] acid, 11-13 [id number] tablet by [facility] vitamin C, 00:00: mouth 2 [place] 500 mg 00 (two) Medical tablet times Branch daily. ascorbic 2020-0 Yes [id number] 500mg Take 1 [facility] acid, 9 [id number] tablet by [facility] vitamin C, 00:00: mouth 2 [place] 500 mg 00 (two) Medical tablet times Branch daily. ascorbic 2020-0 Yes [id number] 500mg Take 1 [facility] acid, 11-13 [id number] tablet by [facility] vitamin C, 00:00: mouth 2 [place] 500 mg 00 (two) Medical tablet times Branch daily. ascorbic 2020-0 Yes [id number] 500mg Take 1 [facility] acid, 9 [id number] tablet by [facility] vitamin C, 00:00: mouth 2 [place] 500 mg 00 (two) Medical tablet times Branch daily. ascorbic 2020-0 Yes [id number] 500mg Take 1 [facility] acid, 11-13 [id number] tablet by [facility] vitamin C, 00:00: mouth 2 [place] 500 mg 00 (two) Medical tablet times Branch daily. ascorbic 2020-0 Yes [id number] 500mg Take 1 [facility] acid, 11-13 [id number] tablet by [facility] vitamin C, 00:00: mouth 2 [place] 500 mg 00 (two) Medical tablet times Branch daily. ascorbic 2020-0 Yes [id number] 500mg Take 1 [facility] acid, 11-13 [id number] tablet by [facility] vitamin C, 00:00: mouth 2 [place] 500 mg 00 (two) Medical tablet times Branch daily. ascorbic 2020-0 Yes [id number] 500mg Take 1 [facility] acid, 11-13 [id number] tablet by [facility] of vitamin C, 00:00: mouth 2 [place] 500 mg 00 (two) Medical tablet times Branch daily. ascorbic 2020-0 Yes [id number] 500mg Take 1 [facility] acid, 9 [id number] tablet by [facility] of vitamin C, 00:00: mouth 2 [place] 500 mg 00 (two) Medical tablet times Branch daily. ascorbic 2020-0 Yes [id number] 500mg Take 1 [facility] acid, 9 [id number] tablet by [facility] vitamin C, 00:00: mouth 2 [place] 500 mg 00 (two) Medical tablet times Branch daily. ascorbic 2020-0 Yes [id number] 500mg Take 1 [facility] acid, 11-13 [id number] tablet by [facility] of vitamin C, 00:00: mouth 2 [place] 500 mg 00 (two) Medical tablet times Branch daily. ascorbic 2020-0 Yes [id number] 500mg Take 1 [facility] acid, 11-13 [id number] tablet by [facility] of vitamin C, 00:00: mouth 2 [place] 500 mg 00 (two) Medical tablet times Branch daily. ascorbic 2020-0 Yes [id number] 500mg Take 1 [facility] acid, 11-13 [id number] tablet by [facility] of vitamin C, 00:00: mouth 2 [place] 500 mg 00 (two) Medical tablet times Branch daily. ascorbic 2020-0 Yes [id number] 500mg Take 1 [facility] acid, 11-13 [id number] tablet by [facility] of vitamin C, 00:00: mouth 2 [place] 500 mg 00 (two) Medical tablet times Branch daily. ascorbic 2020-0 Yes [id number] 500mg Take 1 [facility] acid, 11-13 [id number] tablet by [facility] of vitamin C, 00:00: mouth 2 [place] 500 mg 00 (two) Medical tablet times Branch daily. ascorbic 2020-0 Yes [id number] 500mg Take 1 [facility] acid, 11-13 [id number] tablet by [facility] of vitamin C, 00:00: mouth 2 [place] 500 mg 00 (two) Medical tablet times Branch daily. ascorbic 2020-0 Yes [id number] 500mg Take 1 [facility] acid, 11-13 [id number] tablet by [facility] of vitamin C, 00:00: mouth 2 [place] 500 mg 00 (two) Medical tablet times Branch daily. ascorbic 2020-0 Yes [id number] 500mg Take 1 [facility] acid, 11-13 [id number] tablet by [facility] of vitamin C, 00:00: mouth 2 [place] 500 mg 00 (two) Medical tablet times Branch daily. ascorbic 2020-0 Yes [id number] 500mg Take 1 [facility] acid, 9 [id number] tablet by [facility] of vitamin C, 00:00: mouth 2 [place] 500 mg 00 (two) Medical tablet times Branch daily. ascorbic 2020-0 Yes [id number] 500mg Take 1 [facility] acid, 9 [id number] tablet by [facility] of vitamin C, 00:00: mouth 2 [place] 500 mg 00 (two) Medical tablet times Branch daily. ascorbic Yes [id number] 500mg Take 1 [facility] acid, 11-13 [id number] tablet by [facility] of vitamin C, 00:00: mouth 2 [place] 500 mg 00 (two) Medical tablet times Branch daily. ascorbic Yes [id number] 500mg Take 1 [facility] acid, 11-13 [id number] tablet by [facility] of vitamin C, 00:00: mouth 2 [place] 500 mg 00 (two) Medical tablet times Branch daily. ascorbic Yes [id number] 500mg Take 1 [facility] acid, 11-13 [id number] tablet by [facility] of vitamin C, 00:00: mouth 2 [place] 500 mg 00 (two) Medical tablet times Branch daily. ascorbic Yes [id number] 500mg Take 1 [facility] acid, 11-13 [id number] tablet by [facility] of vitamin C, 00:00: mouth 2 [place] 500 mg 00 (two) Medical tablet times Branch daily. ascorbic 2021- No [id number] 500mg Take 1 [facility] acid, 11-13 [id number] tablet by [facility]y of vitamin C, 00:00: 00:00 mouth 2 [place] 500 mg 00 :00 (two) Medical tablet times Branch daily. acetaminoph 2021- No [id number] 650mg Take 2 [facility] 325 mg 11-13 [id number] tablets by i ty of tablet 00:00: 04:59 mouth [place] 00 :00 every 6 Medical (six) Branch hours as needed for Pain (scale 1-3) or Temp > 38.5 C. acetaminoph 2021- No [id number] 650mg Take 2 [facility] 325 mg 11-13 [id number] tablets by i ty of tablet 00:00: 04:59 mouth [place] 00 :00 every 6 Medical (six) Branch hours as needed for Pain (scale 1-3) or Temp > 38.5 C. acetaminoph 2021- No [id number] 650mg Take 2 [facility] 325 mg 11-13 [id number] tablets by i ty of tablet 00:00: 04:59 mouth [place] 00 :00 every 6 Medical (six) Branch hours as needed for Pain (scale 1-3) or Temp > 38.5 C. acetaminoph 2020-0 2021- No [id number] 650mg Take 2 [facility] 325 mg 11-13- 395515 tablets by i ty of tablet 00:00: 04:59 mouth [place] 00 :00 every 6 Medical (six) Branch hours as needed for Pain (scale 1-3) or Temp > 38.5 C. acetaminoph 2020-0 2021- No [id number] 650mg Take 2 [facility] 325 mg 11-13 [id number] tablets by i ty of tablet 00:00: 04:59 mouth [place] 00 :00 every 6 Medical (six) Branch hours as needed for Pain (scale 1-3) or Temp > 38.5 C. acetaminoph 2020-2021- No [id number] 650mg Take 2 [facility] 325 mg 11-13 [id number] tablets by i ty of tablet 00:00: 04:59 mouth [place] 00 :00 every 6 Medical (six) Branch hours as needed for Pain (scale 1-3) or Temp > 38.5 C. acetaminoph 2020-2021- No [id number] 650mg Take 2 [facility] 325 mg 11-13 [id number] tablets by i ty of tablet 00:00: 04:59 mouth [place] 00 :00 every 6 Medical (six) Branch hours as needed for Pain (scale 1-3) or Temp > 38.5 C. acetaminoph 2020-2021- No [id number] 650mg Take 2 [facility] 325 mg 11-13 [id number] tablets by i ty of tablet 00:00: 04:59 mouth [place] 00 :00 every 6 Medical (six) Branch hours as needed for Pain (scale 1-3) or Temp > 38.5 C. acetaminoph 2020-0 2- No [id number] 650mg Take 2 [facility] 325 mg 11-13- [id number] tablets by i ty of tablet 00:00: 04:59 mouth [place] 00 :00 every 6 Medical (six) Branch hours as needed for Pain (scale 1-3) or Temp > 38.5 C. acetaminoph 2020-0 2021- No [id number] 650mg Take 2 [facility] 325 mg -13 11- [id number] tablets by i ty of tablet 00:00: 04:59 mouth [place] 00 :00 every 6 Medical (six) Branch hours as needed for Pain (scale 1-3) or Temp > 38.5 C. acetaminoph 2021-0 2021- No [id number] 650mg Take 2 [facility] 325 mg 11-13 [id number] tablets by i ty of tablet 00:00: 04:59 mouth [place] 00 :00 every 6 Medical (six) Branch hours as needed for Pain (scale 1-3) or Temp > 38.5 C. acetaminoph 202-0 2021- No [id number] 650mg Take 2 [facility] 325 mg 11-13 [id number] tablets by i ty of tablet 00:00: 04:59 mouth [place] 00 :00 every 6 Medical (six) Branch hours as needed for Pain (scale 1-3) or Temp > 38.5 C. acetaminoph 2020-0 2021- No [id number] 650mg Take 2 [facility] 325 mg 11-13 [id number] tablets by i ty of tablet 00:00: 04:59 mouth [place] 00 :00 every 6 Medical (six) Branch hours as needed for Pain (scale 1-3) or Temp > 38.5 C. acetaminoph 2020-0 2021- No [id number] 650mg Take 2 [facility] 325 mg 11-13 [id number] tablets by i ty of tablet 00:00: 04:59 mouth [place] 00 :00 every 6 Medical (six) Branch hours as needed for Pain (scale 1-3) or Temp > 38.5 C. acetaminoph 2020-0 2021- No [id number] 650mg Take 2 [facility] 325 mg 11-13 [id number] tablets by i ty of tablet 00:00: 04:59 mouth [place] 00 :00 every 6 Medical (six) Branch hours as needed for Pain (scale 1-3) or Temp > 38.5 C. acetaminoph 2021-0 2021- No [id number] 650mg Take 2 [facility] 325 mg 11-13 [id number] tablets by i ty of tablet 00:00: 04:59 mouth [place] 00 :00 every 6 Medical (six) Branch hours as needed for Pain (scale 1-3) or Temp > 38.5 C. acetaminoph 2021-0 2021- No [id number] 650mg Take 2 [facility] 325 mg 11-13 [id number] tablets by i ty of tablet 00:00: 04:59 mouth [place] 00 :00 every 6 Medical (six) Branch hours as needed for Pain (scale 1-3) or Temp > 38.5 C. acetaminoph 2020-2021- No [id number] 650mg Take 2 [facility] 325 mg 11-13- [id number] tablets by i ty of tablet 00:00: 04:59 mouth [place] 00 :00 every 6 Medical (six) Branch hours as needed for Pain (scale 1-3) or Temp > 38.5 C. acetaminoph 2020-2021- No [id number] 650mg Take 2 [facility] 325 mg 11-13 [id number] tablets by i ty of tablet 00:00: 04:59 mouth [place] 00 :00 every 6 Medical (six) Branch hours as needed for Pain (scale 1-3) or Temp > 38.5 C. acetaminoph 2020-2021- No [id number] 650mg Take 2 [facility] 325 mg 11-13 [id number] tablets by i ty of tablet 00:00: 04:59 mouth [place] 00 :00 every 6 Medical (six) Branch hours as needed for Pain (scale 1-3) or Temp > 38.5 C. acetaminoph 2020-2021- No [id number] 650mg Take 2 [facility] 325 mg 11-13 [id number] tablets by i ty of tablet 00:00: 04:59 mouth [place] 00 :00 every 6 Medical (six) Branch hours as needed for Pain (scale 1-3) or Temp > 38.5 C. acetaminoph 2020-2021- No [id number] 650mg Take 2 [facility] 325 mg 11-13 [id number] tablets by i ty of tablet 00:00: 04:59 mouth [place] 00 :00 every 6 Medical (six) Branch hours as needed for Pain (scale 1-3) or Temp > 38.5 C. acetaminoph 2020-2021- No [id number] 650mg Take 2 [facility] 325 mg 11-13 [id number] tablets by i ty of tablet 00:00: 04:59 mouth [place] 00 :00 every 6 Medical (six) Branch hours as needed for Pain (scale 1-3) or Temp > 38.5 C. acetaminoph 2021- No [id number] 650mg Take 2 [facility] 325 mg 11-13 [id number] tablets by i ty of tablet 00:00: 04:59 mouth [place] 00 :00 every 6 Medical (six) Branch hours as needed for Pain (scale 1-3) or Temp > 38.5 C. furosemide 2021- No [id number] 20mg Take 1 [facility] 20 mg -06 07-12 tablet by [facility]y of tablet 00:00: 00:00 mouth [place] 00 :00 daily. [facility] furosemide 2021- No [id number] 20mg Take 1 [facility] 20 mg 2- 05-12 tablet by [facility]y of tablet 00:00: 00:00 mouth [place] 00 :00 daily. Medical Branch tolnaftate 2020-0 Yes [id number] Apply to [facility] 1 % cream 9-15 area(s) 2 ity o f 00:00: (two) [place] 00 times Medical daily. Branch tolnaftate 2020-0 Yes [id number] Apply to [facility] 1 % cream 9-15 area(s) 2 ity o f 00:00: (two) [place] 00 times Medical daily. Branch tolnaftate 2020-0 Yes [id number] Apply to [facility] 1 % cream 9-15 area(s) 2 ity o f 00:00: (two) [place] 00 times Medical daily. Branch tolnaftate 2020-0 Yes [id number] Apply to [facility] 1 % cream 9-15 area(s) 2 ity o f 00:00: (two) [place] 00 times Medical daily. Branch tolnaftate 2020-0 Yes [id number] Apply to [facility] 1 % cream 9-15 area(s) 2 ity o f 00:00: (two) [place] 00 times Medical daily. Branch tolnaftate 2020-0 Yes [id number] Apply to [facility] 1 % cream 9-15 area(s) 2 ity o f 00:00: (two) [place] 00 times Medical daily. Branch tolnaftate 2020-0 Yes [id number] Apply to [facility] 1 % cream 9-15 area(s) 2 ity o f 00:00: (two) [place] 00 times Medical daily. Branch tolnaftate 2020-0 Yes [id number] Apply to [facility] 1 % cream 9-15 area(s) 2 ity o f 00:00: (two) [place] 00 times Medical daily. Branch tolnaftate 2020-0 Yes [id number] Apply to [facility] 1 % cream 9-15 area(s) 2 ity o f 00:00: (two) [place] 00 times Medical daily. Branch tolnaftate 2020-0 Yes [id number] Apply to [facility] 1 % cream 9-15 area(s) 2 ity o f 00:00: (two) [place] 00 times Medical daily. Branch tolnaftate 2020-0 Yes [id number] Apply to [facility] 1 % cream 9-15 area(s) 2 ity o f 00:00: (two) [place] 00 times Medical daily. Branch tolnaftate 2020-0 Yes [id number] Apply to [facility] 1 % cream 9-15 area(s) 2 ity o f 00:00: (two) [place] 00 times Medical daily. Branch tolnaftate 2020-0 Yes [id number] Apply to [facility] 1 % cream 9-15 area(s) 2 ity o f 00:00: (two) [place] 00 times Medical daily. Branch tolnaftate 2020-0 Yes [id number] Apply to [facility] 1 % cream 9-15 area(s) 2 ity o f 00:00: (two) [place] 00 times Medical daily. Branch tolnaftate 2020-0 Yes [id number] Apply to [facility] 1 % cream 9-15 area(s) 2 ity o f 00:00: (two) [place] 00 times Medical daily. Branch tolnaftate 2020-0 Yes [id number] Apply to [facility] 1 % cream 9-15 area(s) 2 ity o f 00:00: (two) [place] 00 times Medical daily. Branch tolnaftate 2020-0 Yes [id number] Apply to [facility] 1 % cream 9-15 area(s) 2 ity o f 00:00: (two) [place] 00 times Medical daily. Branch tolnaftate 2020-0 Yes [id number] Apply to [facility] 1 % cream 9-15 area(s) 2 ity o f 00:00: (two) [place] 00 times Medical daily. Branch tolnaftate 2020-0 Yes [id number] Apply to [facility] 1 % cream 9-15 area(s) 2 ity o f 00:00: (two) [place] 00 times Medical daily. Branch tolnaftate 2020-0 Yes [id number] Apply to [facility] 1 % cream 9-15 area(s) 2 ity o f 00:00: (two) [place] 00 times Medical daily. Branch tolnaftate 2020-0 Yes [id number] Apply to [facility] 1 % cream 9-15 area(s) 2 ity o f 00:00: (two) [place] 00 times Medical daily. Branch tolnaftate 2020-0 Yes [id number] Apply to [facility] 1 % cream 9-15 area(s) 2 ity o f 00:00: (two) [place] 00 times Medical daily. Branch tolnaftate 2020-0 Yes [id number] Apply to [facility] 1 % cream 9-15 area(s) 2 ity o f 00:00: (two) [place] 00 times Medical daily. Branch tolnaftate 2020-0 Yes [id number] Apply to [facility] 1 % cream 9-15 area(s) 2 ity o f 00:00: (two) [place] 00 times Medical daily. Branch tolnaftate 2020-0 Yes [id number] Apply to [facility] 1 % cream 9-15 area(s) 2 ity o f 00:00: (two) [place] 00 times Medical daily. Branch tolnaftate 2020-0 Yes [id number] Apply to [facility] 1 % cream 9-15 area(s) 2 ity o f 00:00: (two) [place] 00 times Medical daily. Branch tolnaftate 2020-0 Yes [id number] Apply to [facility] 1 % cream 9-15 area(s) 2 ity o f 00:00: (two) [place] 00 times Medical daily. Branch tolnaftate 2020-0 2021- No [id number] Apply to [facility] 1 % cream 9-15 11-04 area(s) 2 ity of 00:00: 00:00 (two) [place] 00 :00 times Medical daily. Branch Immunizations Ordered Filled Immunization Date Status Comments [facility] Immunization Name Name TDAP 2022-05-04 Completed [facility] of 00:00:00 [facility] Pneumococcal 20 2022[facility]04 [facility] [place]:00:00 [facility] dical (Prevnar 20) Branch [facility] 2022-05-04 Completed [facility] of 00:00:00 [facility] Pneumococcal 20 2022-05-04 Completed [facility]it y of Conjugate, PCV20 00:00:00 [facility] dical (Prevnar 20) Branch [facility] 2022-05-04 Completed [facility] of 00:00:00 [facility] Pneumococcal 20 2022-05-04 Completed [facility]it y of Conjugate, PCV20 00:00:00 [facility] dical (Prevnar 20) Branch [facility] 2022-05-04 Completed [facility] 00:00:00 [facility] Pneumococcal 20 2022-05-04 Completed [facility]it y of Conjugate, PCV20 00:00:00 [facility] dical (Prevnar 20) Branch [facility] 2022-05-04 Completed [facility] of 00:00:00 [facility] Pneumococcal 20 2022-05-04 Completed [facility] y of Conjugate, PCV20 00:00:00 [facility] dical (Prevnar 20) Branch [facility] 2022-05-04 Completed [facility] of 00:00:00 [facility] Pneumococcal 20 2022-05-04 Completed [facility]it y of Conjugate, PCV20 00:00:00 [facility] dical (Prevnar 20) Branch [facility] 2022-05-04 Completed [facility] of 00:00:00 [facility] Pneumococcal 20 2022-05-04 Completed [facility] y of Conjugate, PCV20 00:00:00 [facility] dical (Prevnar 20) Branch [facility] 2022-05-04 Completed [facility] of 00:00:00 [facility] Pneumococcal 20 2022-05-04 Completed [facility] y of Conjugate, PCV20 00:00:00 [facility] dical (Prevnar 20) Branch [facility] 2022-05-04 Completed [facility] of 00:00:00 [facility] Pneumococcal 20 2022-05-04 Completed [facility]it y of Conjugate, PCV20 00:00:00 [facility] dical (Prevnar 20) Branch [facility] 2022-05-04 Completed [facility] of 00:00:00 [facility] Pneumococcal 20 2022-05-04 Completed [facility]it y of Conjugate, PCV20 00:00:00 [facility] dical (Prevnar 20) Branch [facility] 2022-05-04 Completed [facility] of 00:00:00 [facility] Pneumococcal 20 2022-05-04 Completed [facility]it y of Conjugate, PCV20 00:00:00 [facility] dical (Prevnar 20) Branch [facility] 2022-05-04 Completed [facility] of 00:00:00 [facility] Pneumococcal 20 2022-05-04 Completed Universit y of Conjugate, PCV20 00:00:00 [facility] dical (Prevnar 20) Branch [facility] 2022-05-04 Completed [facility] of 00:00:00 [facility] Pneumococcal 20 2022-05-04 Completed [facility]it y of Conjugate, PCV20 00:00:00 [facility] dical (Prevnar 20) Branch [facility] 2022-05-04 Completed [facility] of 00:00:00 [facility] Pneumococcal 20 2022-05-04 Completed [facility]it y of Conjugate, PCV20 00:00:00 [facility] dical (Prevnar 20) Branch [facility] 2022-05-04 Completed [facility] of 00:00:00 [facility] Pneumococcal 20 2022-05-04 Completed [facility]it y of Conjugate, PCV20 00:00:00 [facility] dical (Prevnar 20) Branch [facility] 2022-05-04 Completed [facility] of 00:00:00 [facility] Pneumococcal 20 2022-05-04 Completed Universit y of Conjugate, PCV20 00:00:00 [facility] dical (Prevnar 20) Branch [facility] 2022-05-04 Completed [facility] of 00:00:00 [facility] Pneumococcal 20 2022-05-04 Completed Universit y of Conjugate, PCV20 00:00:00 [facility] dical (Prevnar 20) Branch [facility] 2022-05-04 Completed [facility] of 00:00:00 [facility] Pneumococcal 20 2022-05-04 Completed [facility]it y of Conjugate, PCV20 00:00:00 [facility] dical (Prevnar 20) Branch [facility] 2022-05-04 Completed [facility] of 00:00:00 [facility] Pneumococcal 20 2022-05-04 Completed [facility]it y of Conjugate, PCV20 00:00:00 [facility] dical (Prevnar 20) Branch [facility] 2022-05-04 Completed [facility] of 00:00:00 [facility] Pneumococcal 20 2022-05-04 Completed [facility]it y of Conjugate, PCV20 00:00:00 [facility] dical (Prevnar 20) Branch [facility] 2022-05-04 Completed [facility] of 00:00:00 [facility] Pneumococcal 20 2022-05-04 Completed [facility] y of Conjugate, PCV20 00:00:00 [facility] dical (Prevnar 20) Branch [facility] 2022-05-04 Completed [facility] of 00:00:00 [facility] Pneumococcal 20 2022-05-04 Completed [facility]it y of Conjugate, PCV20 00:00:00 [facility] dical (Prevnar 20) Branch [facility] 2022-05-04 Completed [facility] of 00:00:00 [facility] Pneumococcal 20 2022-05-04 Completed [facility]it y of Conjugate, PCV20 00:00:00 [facility] dical (Prevnar 20) Branch [facility] 2022-05-04 Completed [facility] of 00:00:00 [facility] Pneumococcal 20 2022-05-04 Completed [facility] y of Conjugate, PCV20 00:00:00 [facility] dical (Prevnar 20) Branch [facility] 2022-05-04 Completed [facility] of 00:00:00 [facility] Pneumococcal 20 2022-05-04 Completed [facility] y of Conjugate, PCV20 00:00:00 [facility] dical (Prevnar 20) Branch [facility] 2022-05-04 Completed [facility] of 00:00:00 [facility] Pneumococcal 20 2022-05-04 Completed [facility]it y of Conjugate, PCV20 00:00:00 [facility] dical (Prevnar 20) Branch [facility] 2022-05-04 Completed [facility] of 00:00:00 [facility] Pneumococcal 20 2022-05-04 Completed [facility]it y of Conjugate, PCV20 00:00:00 [facility] dical (Prevnar 20) Branch [facility] 2022-05-04 Completed [facility] of 00:00:00 [facility] Pneumococcal 20 2022-05-04 Completed [facility] y of Conjugate, PCV20 00:00:00 [facility] dical (Prevnar 20) Branch [facility] 2022-05-04 Completed [facility] of 00:00:00 [facility] Pneumococcal 20 2022-05-04 Completed [facility] y of Conjugate, PCV20 00:00:00 [facility] dical (Prevnar 20) Branch [facility] 2022-05-04 Completed [facility] of 00:00:00 [facility] Pneumococcal 20 2022-05-04 Completed [facility] y of Conjugate, PCV20 00:00:00 [facility] dical (Prevnar 20) Branch [facility] 2022-05-04 Completed [facility] of 00:00:00 [facility] Pneumococcal 20 2022-05-04 Completed [facility]it y of Conjugate, PCV20 00:00:00 [facility] dical (Prevnar 20) Branch [facility] 2022-05-04 Completed [facility] of 00:00:00 [facility] Pneumococcal 20 2022-05-04 Completed [facility] y of Conjugate, PCV20 00:00:00 [facility] dical (Prevnar 20) Branch [facility] 2022-05-04 Completed [facility] of 00:00:00 [facility] Pneumococcal 20 2022-05-04 Completed [facility]it y of Conjugate, PCV20 00:00:00 [facility] dical (Prevnar 20) Branch [facility] 2022-05-04 Completed [facility] of 00:00:00 [facility] Pneumococcal 20 2022-05-04 Completed [facility] y of Conjugate, PCV20 00:00:00 [facility] dical (Prevnar 20) Branch [facility] 2022-05-04 Completed [facility] of 00:00:00 [facility] Pneumococcal 20 2022-05-04 Completed [facility]it y of Conjugate, PCV20 00:00:00 [facility] dical (Prevnar 20) Branch [facility] 2022-05-04 Completed [facility] of 00:00:00 [facility] Pneumococcal 20 2022-05-04 Completed [facility]it y of Conjugate, PCV20 00:00:00 [facility] dical (Prevnar 20) Branch [facility] 2022-05-04 Completed [facility] of 00:00:00 [facility] Pneumococcal 20 2022-05-04 Completed Universit y of Conjugate, PCV20 00:00:00 [facility] dical (Prevnar 20) Branch [facility] 2022-05-04 Completed [facility] of 00:00:00 [facility] Pneumococcal 20 2022-05-04 Completed [facility]it y of Conjugate, PCV20 00:00:00 [facility] dical (Prevnar 20) Branch [facility] 2022-05-04 Completed [facility] of 00:00:00 [facility] Pneumococcal 20 2022-05-04 Completed [facility] y of Conjugate, PCV20 00:00:00 [facility] dical (Prevnar 20) Branch [facility] 2022-05-04 Completed [facility] of 00:00:00 [facility] Pneumococcal 20 2022-05-04 Completed [facility]it y of Conjugate, PCV20 00:00:00 [facility] dical (Prevnar 20) Branch [facility] 2022-05-04 Completed [facility] of 00:00:00 [facility] Pneumococcal 20 2022-05-04 Completed [facility]it y of Conjugate, PCV20 00:00:00 [facility] dical (Prevnar 20) Branch [facility] 2022-05-04 Completed [facility] of 00:00:00 [facility] Pneumococcal 20 2022-05-04 Completed [facility]it y of Conjugate, PCV20 00:00:00 [facility] dical (Prevnar 20) Branch [facility] 2022-05-04 Completed [facility] of 00:00:00 [facility] Pneumococcal 20 2022-05-04 Completed [facility] y of Conjugate, PCV20 00:00:00 [facility] dical (Prevnar 20) Branch [facility] 2022-05-04 Completed [facility] of 00:00:00 [facility] Pneumococcal 20 2022-05-04 Completed [facility] y of Conjugate, PCV20 00:00:00 [facility] dical (Prevnar 20) Branch [facility] 2022-05-04 Completed [facility] of 00:00:00 [facility] Pneumococcal 20 2022-05-04 Completed [facility] y of Conjugate, PCV20 00:00:00 [facility] dical (Prevnar 20) Branch [facility] 2022-05-04 Completed [facility] of 00:00:00 [facility] Pneumococcal 20 2022-05-04 Completed [facility] y of Conjugate, PCV20 00:00:00 [facility] dical (Prevnar 20) Branch [facility] 2022-05-04 Completed [facility] of 00:00:00 [facility] Pneumococcal 20 2022-05-04 Completed [facility]it y of Conjugate, PCV20 00:00:00 [facility] dical (Prevnar 20) Branch [facility] 2022-05-04 Completed [facility] of 00:00:00 [facility] Pneumococcal 20 2022-05-04 Completed [facility]it y of Conjugate, PCV20 00:00:00 [facility] dical (Prevnar 20) Branch [facility] 2022-05-04 Completed [facility] of 00:00:00 [facility] Pneumococcal 20 2022-05-04 Completed [facility] y of Conjugate, PCV20 00:00:00 [facility] dical (Prevnar 20) Branch [facility] 2022-05-04 Completed [facility] of 00:00:00 [facility] Pneumococcal 20 2022-05-04 Completed [facility] y of Conjugate, PCV20 00:00:00 [facility] dical (Prevnar 20) Branch TD 2022-05-04 Completed [facility] of 00:00:00 [facility] Pneumococcal 20 2022-05-04 Completed [facility] y of Conjugate, PCV20 00:00:00 [facility] dical (Prevnar 20) Branch [facility] 2022-05-04 Completed [facility] of 00:00:00 [facility] Pneumococcal 20 2022-05-04 Completed [facility] y of Conjugate, PCV20 00:00:00 [facility] dical (Prevnar 20) Branch [facility] 2022-05-04 Completed [facility] of 00:00:00 [facility] Pneumococcal 20 2022-05-04 Completed [facility]it y of Conjugate, PCV20 00:00:00 [facility] dical (Prevnar 20) Branch [facility] 2022-05-04 Completed [facility] of 00:00:00 [facility] Pneumococcal 20 2022-05-04 Completed [facility] y of Conjugate, PCV20 00:00:00 [facility] dical (Prevnar 20) Branch [facility] 2022-05-04 Completed [facility] of 00:00:00 [facility] Pneumococcal 20 2022-05-04 Completed [facility] y of Conjugate, PCV20 00:00:00 [facility] dical (Prevnar 20) Branch [facility] 2022-05-04 Completed [facility] of 00:00:00 [facility] Pneumococcal 20 2022-05-04 Completed [facility] y of Conjugate, PCV20 00:00:00 [facility] dical (Prevnar 20) Branch [facility] 2022-05-04 Completed [facility] of 00:00:00 [facility] Pneumococcal 20 2022-05-04 Completed [facility] y of Conjugate, PCV20 00:00:00 [facility] dical (Prevnar 20) Branch [facility] 2022-05-04 Completed [facility] of 00:00:00 [facility] Pneumococcal 20 2022-05-04 Completed [facility] y of Conjugate, PCV20 00:00:00 [facility] dical (Prevnar 20) Branch [facility] 2022-05-04 Completed [facility] of 00:00:00 [facility] Pneumococcal 20 2022-05-04 Completed [facility] y of Conjugate, PCV20 00:00:00 [facility] dical (Prevnar 20) Branch [facility] 2022-05-04 Completed [facility] of 00:00:00 [facility] Pneumococcal 20 2022-05-04 Completed [facility] y of Conjugate, PCV20 00:00:00 [facility] dical (Prevnar 20) Branch [facility] 2022-05-04 Completed [facility] of 00:00:00 [facility] Pneumococcal 20 2022-05-04 Completed [facility] y of Conjugate, PCV20 00:00:00 [facility] dical (Prevnar 20) Branch [facility] 2022-05-04 Completed [facility] of 00:00:00 [facility] Pneumococcal 20 2022-05-04 Completed [facility] y of Conjugate, PCV20 00:00:00 [facility] dical (Prevnar 20) Branch [facility] 2022-05-04 Completed [facility] of 00:00:00 [facility] Pneumococcal 20 2022-05-04 Completed [facility] y of Conjugate, PCV20 00:00:00 [facility] dical (Prevnar 20) Branch [facility] 2022-05-04 Completed [facility] of 00:00:00 [facility] Pneumococcal 20 2022-05-04 Completed [facility] y of Conjugate, PCV20 00:00:00 [facility] dical (Prevnar 20) Branch [facility] 2022-05-04 Completed [facility] of 00:00:00 [facility] Pneumococcal 20 2022-05-04 Completed [facility] y of Conjugate, PCV20 00:00:00 [facility] dical (Prevnar 20) Branch [facility] 2022-05-04 Completed [facility] of 00:00:00 [facility] Pneumococcal 20 2022-05-04 Completed [facility] y of Conjugate, PCV20 00:00:00 [facility] dical (Prevnar 20) Branch [facility] 2022-05-04 Completed [facility] of 00:00:00 [facility] Pneumococcal 20 2022-05-04 Completed [facility] y of Conjugate, PCV20 00:00:00 [facility] dical (Prevnar 20) Branch [facility] 2022-05-04 Completed [facility] of 00:00:00 [facility] Pneumococcal 20 2022-05-04 Completed [facility] y of Conjugate, PCV20 00:00:00 [facility] dical (Prevnar 20) Branch [facility] 2022-05-04 Completed [facility] of 00:00:00 [facility] Pneumococcal 20 2022-05-04 Completed [facility] y of Conjugate, PCV20 00:00:00 [facility] dical (Prevnar 20) Branch [facility] 2022-05-04 Completed [facility] of 00:00:00 [facility] Pneumococcal 20 2022-05-04 Completed [facility] y of Conjugate, PCV20 00:00:00 [facility] dical (Prevnar 20) Branch [facility] 2022-05-04 Completed [facility] of 00:00:00 [facility] Pneumococcal 20 2022-05-04 Completed [facility] y of Conjugate, PCV20 00:00:00 [facility] dical (Prevnar 20) Branch [facility] 2022-05-04 Completed [facility] of 00:00:00 [facility] Pneumococcal 20 2022-05-04 Completed [facility] y of Conjugate, PCV20 00:00:00 [facility] dical (Prevnar 20) Branch [facility] 2022-05-04 Completed [facility] of 00:00:00 [facility] Pneumococcal 20 2022-05-04 Completed [facility] y of Conjugate, PCV20 00:00:00 [facility] dical (Prevnar 20) Branch [facility] 2022-05-04 Completed [facility] of 00:00:00 [facility] Pneumococcal 20 2022-05-04 Completed [facility] y of Conjugate, PCV20 00:00:00 [facility] dical (Prevnar 20) Branch [facility] 2022-05-04 Completed [facility] of 00:00:00 [facility] Pneumococcal 20 2022-05-04 Completed [facility] y of Conjugate, PCV20 00:00:00 [facility] dical (Prevnar 20) Branch [facility] 2022-05-04 Completed [facility] of 00:00:00 [facility] Pneumococcal 20 2022-05-04 Completed [facility] y of Conjugate, PCV20 00:00:00 [facility] dical (Prevnar 20) Branch [facility] 2022-05-04 Completed [facility] of 00:00:00 [facility] Pneumococcal 20 2022-05-04 Completed [facility] y of Conjugate, PCV20 00:00:00 [facility] dical (Prevnar 20) Branch [facility] 2022-05-04 Completed [facility] of 00:00:00 [facility] Pneumococcal 20 2022-05-04 Completed [facility] y of Conjugate, PCV20 00:00:00 [facility] dical (Prevnar 20) Branch [facility] 2022-05-04 Completed [facility] of 00:00:00 [facility] Pneumococcal 20 2022-05-04 Completed [facility] y of Conjugate, PCV20 00:00:00 [facility] dical (Prevnar 20) Branch [facility] 2022-05-04 Completed [facility] of 00:00:00 [facility] Pneumococcal 20 2022-05-04 Completed [facility] y of Conjugate, PCV20 00:00:00 [facility] dical (Prevnar 20) Branch [facility] 2022-05-04 Completed [facility] of 00:00:00 [facility] Pneumococcal 20 2022-05-04 Completed [facility] y of Conjugate, PCV20 00:00:00 [facility] dical (Prevnar 20) Branch [facility] 2022-05-04 Completed [facility] of 00:00:00 [facility] Pneumococcal 20 2022-05-04 Completed [facility] y of Conjugate, PCV20 00:00:00 [facility] dical (Prevnar 20) Branch [facility] 2022-05-04 Completed [facility] of 00:00:00 [facility] Pneumococcal 20 2022-05-04 Completed [facility] y of Conjugate, PCV20 00:00:00 [facility] dical (Prevnar 20) Branch [facility] 2022-05-04 Completed [facility] of 00:00:00 [facility] Pneumococcal 20 2022-05-04 Completed [facility] y of Conjugate, PCV20 00:00:00 [facility] dical (Prevnar 20) Branch [facility] 2022-05-04 Completed [facility] 00:00:00 [facility] Pneumococcal 20 2022-05-04 Completed [facility] y of Conjugate, PCV20 00:00:00 [facility] dical (Prevnar 20) [facility] 2022-05-04 Completed [facility] 00[facility]00:00 [facility] Pneumococcal 20 2022-05-04 Completed [facility] Conjugate, PCV20 00:00:00 [facility] dical (Prevnar 20) [facility] 2022-05-04 Completed [facility] 00:00:00 [facility] Pneumococcal 20 2022-05-04 Completed [facility] of Conjugate, PCV20 00:00:00 [facility] dical (Prevnar 20) Branch Td 2021-12-19 Completed [facility] of 00:00:00 [facility] Td 2021-12-19 Completed [facility] of 00:00:00 [facility] Td 2021-12-19 Completed [facility] of 00:00:00 [facility] Td 2021-12-19 Completed [facility] of 00:00:00 [facility] Td 2021-12-19 Completed [facility] of 00:00:00 [facility] Td 2021-12-19 Completed [facility] of 00:00:00 [facility] Td 2021-12-19 Completed [facility] 00:00:00 [facility] Td 2021-12-19 Completed [facility] 00:00:00 [facility] Td 2021-12-19 Completed [facility] 00:00:00 [facility] Td 2021-12-19 Completed [facility] 00:00:00 [facility] Td 2021-12-19 Completed [facility] 00:00:00 [facility] TD, NOS 2021-12-19 Completed [facility] 00:00:00 [facility] TD, NOS 2021-12-19 Completed [facility] 00:00:00 [facility] TD, NOS 2021-12-19 Completed [facility] 00:00:00 [facility] TD, NOS 2021-12-19 Completed [facility] 00:00:00 [facility] TD, NOS 2021-12-19 Completed [facility] 00:00:00 [facility] TD, NOS 2021-12-19 Completed [facility] 00:00:00 [facility] TD, NOS 2021-12-19 Completed [facility] 00:00:00 [facility] TD, NOS 2021-12-19 Completed [facility] 00:00:00 [facility] TD, NOS 2021-12-19 Completed [facility] 00:00:00 [facility] TD, NOS 2021-12-19 Completed [facility] 00:00:00 [facility] TD, NOS 2021-12-19 Completed [facility] 00:00:00 [facility] TD, NOS 2021-12-19 Completed [facility] 00:00:00 [facility] TD, NOS 2021-12-19 Completed [facility] 00:00:00 [facility] TD, NOS 2021-12-19 Completed [facility] 00:00:00 [facility] TD, NOS 2021-12-19 Completed [facility] 00:00:00 [facility] TD, NOS 2021-12-19 Completed [facility] 00:00:00 [facility] TD, NOS 2021-12-19 Completed [facility] 00:00:00 [facility] TD, NOS 2021-12-19 Completed [facility] 00:00:00 [facility] TD, NOS 2021-12-19 Completed [facility] 00:00:00 [facility] TD, NOS 2021-12-19 Completed [facility] 00:00:00 [facility] TD, NOS 2021-12-19 Completed [facility] 00:00:00 [facility] TD, NOS 2021-12-19 Completed [facility] 00:00:00 [facility] TD, NOS 2021-12-19 Completed [facility] 00:00:00 [facility] TD, NOS 2021-12-19 Completed [facility] 00:00:00 [facility] TD, NOS 2021-12-19 Completed [facility] 00:00:00 [facility] TD, NOS 2021-12-19 Completed [facility] 00:00:00 [facility] TD, NOS 2021-12-19 Completed [facility] 00:00:00 [facility] TD, NOS 2021-12-19 Completed [facility] 00:00:00 [facility] TD, NOS 2021-12-19 Completed [facility] 00:00:00 [facility] TD, NOS 2021-12-19 Completed [facility] 00:00:00 [facility] TD, NOS 2021-12-19 Completed [facility] 00:00:00 [facility] TD, NOS 2021-12-19 Completed [facility] 00:00:00 [facility] TD, NOS 2021-12-19 Completed [facility] 00:00:00 [facility] TD, NOS 2021-12-19 Completed [facility] 00:00:00 [facility] TD, NOS 2021-12-19 Completed [facility] 00:00:00 [facility] TD, NOS 2021-12-19 Completed [facility] 00:00:00 [facility] TD, NOS 2021-12-19 Completed [facility] 00:00:00 [facility] TD, NOS 2021-12-19 Completed [facility] 00:00:00 [facility] TD, NOS 2021-12-19 Completed [facility] 00:00:00 [facility] TD, NOS 2021-12-19 Completed [facility] 00:00:00 [facility] TD, NOS 2021-12-19 Completed [facility] 00:00:00 [facility] TD, NOS 2021-12-19 Completed [facility] 00:00:00 [facility] TD, NOS 2021-12-19 Completed [facility] 00:00:00 [facility] TD, NOS 2021-12-19 Completed [facility] 00:00:00 [facility] TD, NOS 2021-12-19 Completed [facility] 00:00:00 [facility] TD, NOS 2021-12-19 Completed [facility] 00:00:00 [facility] TD, NOS 2021-12-19 Completed [facility] 00:00:00 [facility] TD, NOS 2021-12-19 Completed [facility] 00:00:00 [facility] TD, NOS 2021-12-19 Completed [facility] 00:00:00 [facility] TD, NOS 2021-12-19 Completed [facility] 00:00:00 [facility] TD, NOS 2021-12-19 Completed [facility] 00:00:00 [facility] TD, NOS 2021-12-19 Completed [facility] 00:00:00 [facility] TD, NOS 2021-12-19 Completed [facility] 00:00:00 [facility] TD, NOS 2021-12-19 Completed [facility] 00:00:00 [facility] TD, NOS 2021-12-19 Completed [facility] 00:00:00 [facility] TD, NOS 2021-12-19 Completed [facility] 00:00:00 [facility] TD, NOS 2021-12-19 Completed [facility] 00:00:00 [facility] TD, NOS 2021-12-19 Completed [facility] 00:00:00 [facility] TD, NOS 2021-12-19 Completed [facility] 00:00:00 [facility] TD, NOS 2021-12-19 Completed [facility] 00:00:00 [facility] TD, NOS 2021-12-19 Completed [facility] 00:00:00 [facility] TD, NOS 2021-12-19 Completed [facility] 00:00:00 [facility] TD, NOS 2021-12-19 Completed [facility] 00:00:00 [facility] TD, NOS 2021-12-19 Completed [facility] 00:00:00 [facility] TD, NOS 2021-12-19 Completed [facility] 00:00:00 [facility] TD, NOS 2021-12-19 Completed [facility] 00:00:00 [facility] TD, NOS 2021-12-19 Completed [facility] 00:00:00 [facility] TD, NOS 2021-12-19 Completed [facility] 00:00:00 [facility] TD, NOS 2021-12-19 Completed [facility] 00:00:00 [facility] TD, NOS 2021-12-19 Completed [facility] 00:00:00 [facility] TD, NOS 2021-12-19 Completed [facility] 00:00:00 [facility] TD, NOS 2021-12-19 Completed [facility] 00:00:00 [facility] TD, NOS 2021-12-19 Completed [facility] 00:00:00 [facility] TD, NOS 2021-12-19 Completed [facility] 00:00:00 [facility] TD, NOS 2021-12-19 Completed [facility] 00:00:00 [facility] TD, NOS 2021-12-19 Completed [facility] 00:00:00 [facility] TD, NOS 2021-12-19 Completed [facility] 00:00:00 [facility] TD, NOS 2021-12-19 Completed [facility] 00:00:00 [facility] TD, NOS 2021-12-19 Completed [facility] 00:00:00 [facility] TD, NOS 2021-12-19 Completed [facility] 00:00:00 [facility] TD, NOS 2021-12-19 Completed [facility] 00:00:00 [facility] TD, NOS 2021-12-19 Completed [facility] 00:00:00 [facility] TD, NOS 2021-12-19 Completed [facility] 00:00:00 [facility] TD, NOS 2021-12-19 Completed [facility] 00:00:00 [facility] TD, NOS 2021-12-19 Completed [facility] 00:00:00 [facility] TD, NOS 2021-12-19 Completed [facility] 00:00:00 [facility] TD, NOS 2021-12-19 Completed [facility] 00:00:00 [facility] TD, NOS 2021-12-19 Completed [facility] 00:00:00 [facility] TD, NOS 2021-12-19 Completed [facility] 00:00:00 [facility] TD, NOS 2021-12-19 Completed [facility] 00:00:00 [facility] TD, NOS 2021-12-19 Completed [facility] 00:00:00 [facility] TD, NOS 2021-12-19 Completed [facility] 00:00:00 [facility] TD, NOS 2021-12-19 Completed [facility] 00:00:00 [facility] TD, NOS 2021-12-19 Completed [facility] 00:00:00 [facility] TD, NOS 2021-12-19 Completed [facility] 00:00:00 [facility] TD, NOS 2021-12-19 Completed [facility] 00:00:00 [facility] TD, NOS 2021-12-19 Completed [facility] of 00:00:00 [facility] TD, NOS 2021-12-19 Completed [facility] of 00:00:00 [facility] TD, NOS 2021-12-19 Completed [facility] of 00:00:00 [facility] TD, NOS 2021-12-19 Completed [facility] of 00:00:00 [facility] TD, NOS 2021-12-19 Completed [facility] of 00:00:00 [facility] TD, NOS 2021-12-19 Completed [facility] of 00:00:00 [facility] TD, NOS 2021-12-19 Completed [facility] of 00:00:00 [facility] TD, NOS 2021-12-19 Completed [facility] of 00:00:00 [facility] TD, NOS 2021-12-19 Completed [facility] of 00:00:00 [facility] TD, NOS 2021-12-19 Completed [facility] of 00:00:00 [facility] TD, NOS 2021-12-19 Completed [facility] of 00:00:00 [facility] TD, NOS 2021-12-19 Completed [facility] of 00:00:00 [facility] TD, NOS 2021-12-19 Completed [facility] of 00:00:00 [facility] TD, NOS 2021-12-19 Completed [facility] of 00:00:00 [facility] TD, NOS 2021-12-19 Completed [facility] of 00:00:00 [facility] TD, NOS 2021-12-19 Completed [facility] of 00:00:00 [facility] TD, NOS 2021-12-19 Completed [facility] of 00:00:00 [facility] TD, NOS 2021-12-19 Completed [facility] of 00:00:00 [facility] TD, NOS 2021-12-19 Completed [facility] of 00:00:00 [facility] TD, NOS 2021-12-19 Completed [facility] of 00:00:00 [facility] TD, NOS 2021-12-19 Completed [facility] of 00:00:00 [facility] TD, NOS 2021-12-19 Completed [facility] of 00:00:00 [facility] TD, NOS 2021-12-19 Completed [facility] of 00:00:00 [facility] Pneumococcal 2021-04-24 Completed University o f Polysaccharide, 00:00:00 [facility] ica PPSV23 (PNEUMOVAX) Branch Influenza Virus 2021-04-24 Completed [facility] Vaccine,quad 00:00:00 [facility]+ Pneumococcal 2021-04-24 Completed [facility] o f Polysaccharide, 00:00:00 [facility] PPSV23 (PNEUMOVAX) Branch Influenza Virus 2021-04-24 Completed [facility] Vaccine,quad 00:00:00 [facility] 65+ Pneumococcal 2021-04-24 Completed [facility] o f Polysaccharide, 00:00:00 [facility] PPSV23 (PNEUMOVAX) Branch Influenza Virus 2021-04-24 Completed [facility] Vaccine,quad 00:00:00 [facility] 65+ Pneumococcal 2021-04-24 Completed [facility] o f Polysaccharide, 00:00:00 [facility] PPSV23 (PNEUMOVAX) Branch Influenza Virus 2021-04-24 Completed [facility] Vaccine,quad 00:00:00 [facility] 65+ Pneumococcal 2021-04-24 Completed [facility] o f Polysaccharide, 00:00:00 [facility] PPSV23 (PNEUMOVAX) Branch Influenza Virus 2021-04-24 Completed [facility] Vaccine,quad 00:00:00 [facility] 65+ Pneumococcal 2021-04-24 Completed [facility] o f Polysaccharide, 00:00:00 [facility] PPSV23 (PNEUMOVAX) Branch Influenza Virus 2021-04-24 Completed [facility] Vaccine,quad 00:00:00 [facility] 65+ Pneumococcal 2021-04-24 Completed [facility] o f Polysaccharide, 00:00:00 [facility] PPSV23 (PNEUMOVAX) Branch Influenza Virus 2021-04-24 Completed [facility] of Vaccine,quad 00:00:00 [facility] 65+ Pneumococcal 2021-04-24 Completed [facility] o f Polysaccharide, 00:00:00 [facility] PPSV23 (PNEUMOVAX) Branch Influenza Virus 2021-04-24 Completed [facility] of Vaccine,quad 00:00:00 [facility] 65+ Pneumococcal 2021-04-24 Completed [facility] o f Polysaccharide, 00:00:00 [facility] PPSV23 (PNEUMOVAX) Branch Influenza Virus 2021-04-24 Completed [facility] of Vaccine,quad 00:00:00 [facility] 65+ Pneumococcal 2021-04-24 Completed [facility] o f Polysaccharide, 00:00:00 [facility] PPSV23 (PNEUMOVAX) Branch Influenza Virus 2021-04-24 Completed [facility] of Vaccine,quad 00:00:00 [facility] 65+ Pneumococcal 2021-04-24 Completed [facility] o f Polysaccharide, 00:00:00 [facility] PPSV23 (PNEUMOVAX) Branch Influenza Virus 2021-04-24 Completed [facility] of Vaccine,quad 00:00:00 [facility] 65+ Pneumococcal 2021-04-24 Completed [facility] o f Polysaccharide, 00:00:00 [facility] PPSV23 (PNEUMOVAX) Branch Influenza Virus 2021-04-24 Completed [facility] of Vaccine,quad 00:00:00 [facility] 65+ Pneumococcal 2021-04-24 Completed [facility] o f Polysaccharide, 00:00:00 [facility] PPSV23 (PNEUMOVAX) Branch Influenza Virus 2021-04-24 Completed [facility] of Vaccine,quad 00:00:00 [facility] 65+ Pneumococcal 2021-04-24 Completed [facility] o f Polysaccharide, 00:00:00 [facility] PPSV23 (PNEUMOVAX) Branch Influenza Virus 2021-04-24 Completed [facility] of Vaccine,quad 00:00:00 [facility] 65+ Pneumococcal 2021-04-24 Completed [facility] o f Polysaccharide, 00:00:00 [facility] PPSV23 (PNEUMOVAX) Branch Influenza Virus 2021-04-24 Completed [facility] of Vaccine,quad 00:00:00 [facility] 65+ Pneumococcal 2021-04-24 Completed [facility] o f Polysaccharide, 00:00:00 [facility] PPSV23 (PNEUMOVAX) Branch Influenza Virus 2021-04-24 Completed [facility] of Vaccine,quad 00:00:00 [facility] 65+ Pneumococcal 2021-04-24 Completed [facility] o f Polysaccharide, 00:00:00 [facility] PPSV23 (PNEUMOVAX) Branch Influenza Virus 2021-04-24 Completed [facility] of Vaccine,quad 00:00:00 [facility] 65+ Pneumococcal 2021-04-24 Completed [facility] o f Polysaccharide, 00:00:00 [facility] PPSV23 (PNEUMOVAX) Branch Influenza Virus 2021-04-24 Completed [facility] of Vaccine,quad 00:00:00 [facility] 65+ Pneumococcal 2021-04-24 Completed [facility] o f Polysaccharide, 00:00:00 [facility] PPSV23 (PNEUMOVAX) Branch Influenza Virus 2021-04-24 Completed [facility] of Vaccine,quad 00:00:00 [facility] 65+ Pneumococcal 2021-04-24 Completed [facility] o f Polysaccharide, 00:00:00 [facility] PPSV23 (PNEUMOVAX) Branch Influenza Virus 2021-04-24 Completed [facility] of Vaccine,quad 00:00:00 [facility] 65+ Pneumococcal 2021-04-24 Completed [facility] o f Polysaccharide, 00:00:00 [facility] PPSV23 (PNEUMOVAX) Branch Influenza Virus 2021-04-24 Completed [facility] of Vaccine,quad 00:00:00 [facility] 65+ Pneumococcal 2021-04-24 Completed [facility] o f Polysaccharide, 00:00:00 [facility] PPSV23 (PNEUMOVAX) Branch Influenza Virus 2021-04-24 Completed [facility] of Vaccine,quad 00:00:00 [facility] 65+ Pneumococcal 2021-04-24 Completed [facility] o f Polysaccharide, 00:00:00 [facility] PPSV23 (PNEUMOVAX) Branch Influenza Virus 2021-04-24 Completed [facility] of Vaccine,quad 00:00:00 [facility] 65+ Pneumococcal 2021-04-24 Completed [facility] o f Polysaccharide, 00:00:00 [facility] PPSV23 (PNEUMOVAX) Branch Influenza Virus 2021-04-24 Completed [facility] of Vaccine,quad 00:00:00 [facility] 65+ Pneumococcal 2021-04-24 Completed [facility] o f Polysaccharide, 00:00:00 [place] [facility] PPSV23 (PNEUMOVAX) Branch Influenza Virus 2021-04-24 Completed [facility] of Vaccine,quad 00:00:00 [facility] 65+ Pneumococcal 2021-04-24 Completed [facility] o f Polysaccharide, 00:00:00 [place] [facility] PPSV23 (PNEUMOVAX) Branch Influenza Virus 2021-04-24 Completed [facility] of Vaccine,quad 00:00:00 [facility] 65+ Pneumococcal 2021-04-24 Completed [facility] o f Polysaccharide, 00:00:00 [place] [facility] PPSV23 (PNEUMOVAX) Branch Influenza Virus 2021-04-24 Completed [facility] of Vaccine,quad 00:00:00 [facility] 65+ Pneumococcal 2021-04-24 Completed [facility] o f Polysaccharide, 00:00:00 [place] [facility] PPSV23 (PNEUMOVAX) Branch Influenza Virus 2021-04-24 Completed [facility] of Vaccine,quad 00:00:00 [facility] 65+ Pneumococcal 2021-04-24 Completed [facility] o f Polysaccharide, 00:00:00 [place] [facility] PPSV23 (PNEUMOVAX) Branch Influenza Virus 2021-04-24 Completed [facility] of Vaccine,quad 00:00:00 [facility] 65+ Pneumococcal 2021-04-24 Completed [facility] o f Polysaccharide, 00:00:00 [place] [facility] PPSV23 (PNEUMOVAX) Branch Influenza Virus 2021-04-24 Completed [facility] of Vaccine,quad 00:00:00 [facility] 65+ Pneumococcal 2021-04-24 Completed [facility] o f Polysaccharide, 00:00:00 [place] [facility] PPSV23 (PNEUMOVAX) Branch Influenza Virus 2021-04-24 Completed [facility] of Vaccine,quad 00:00:00 [facility] 65+ Pneumococcal 2021-04-24 Completed [facility] o f Polysaccharide, 00:00:00 [place] [facility] PPSV23 (PNEUMOVAX) Branch Influenza Virus 2021-04-24 Completed [facility] of Vaccine,quad 00:00:00 [facility] 65+ Pneumococcal 2021-04-24 Completed [facility] o f Polysaccharide, 00:00:00 [place] [facility] PPSV23 (PNEUMOVAX) Branch Influenza Virus 2021-04-24 Completed [facility] of Vaccine,quad 00:00:00 [facility] 65+ Pneumococcal 2021-04-24 Completed [facility] o f Polysaccharide, 00:00:00 [place] [facility] PPSV23 (PNEUMOVAX) Branch Influenza Virus 2021-04-24 Completed [facility] of Vaccine,quad 00:00:00 [facility] 65+ Pneumococcal 2021-04-24 Completed [facility] o f Polysaccharide, 00:00:00 [facility] PPSV23 (PNEUMOVAX) Branch Influenza Virus 2021-04-24 Completed [facility] of Vaccine,quad 00:00:00 [facility] 65+ Pneumococcal 2021-04-24 Completed [facility] o f Polysaccharide, 00:00:00 [facility] PPSV23 (PNEUMOVAX) Branch Influenza Virus 2021-04-24 Completed [facility] of Vaccine,quad 00:00:00 [facility] 65+ Pneumococcal 2021-04-24 Completed [facility] o f Polysaccharide, 00:00:00 [facility] PPSV23 (PNEUMOVAX) Branch Influenza Virus 2021-04-24 Completed [facility] of Vaccine,quad 00:00:00 [facility] 65+ Pneumococcal 2021-04-24 Completed [facility] o f Polysaccharide, 00:00:00 [place] [facility] PPSV23 (PNEUMOVAX) Branch Influenza Virus 2021-04-24 Completed [facility] of Vaccine,quad 00:00:00 [facility] 65+ Pneumococcal 2021-04-24 Completed [facility] o f Polysaccharide, 00:00:00 [place] [facility] PPSV23 (PNEUMOVAX) Branch Influenza Virus 2021-04-24 Completed [facility] Vaccine,quad 00:00:00 [facility] 65+ Pneumococcal 2021-04-24 Completed [facility] o f Polysaccharide, 00:00:00 [place] [facility] PPSV23 (PNEUMOVAX) Branch Influenza Virus 2021-04-24 Completed [facility] of Vaccine,quad 00:00:00 [facility] 65+ Pneumococcal 2021-04-24 Completed [facility] o f Polysaccharide, 00:00:00 [place] [facility] PPSV23 (PNEUMOVAX) Branch Influenza Virus 2021-04-24 Completed [facility] of Vaccine,quad 00:00:00 [facility] 65+ Pneumococcal 2021-04-24 Completed [facility] o f Polysaccharide, 00:00:00 [place] [facility] PPSV23 (PNEUMOVAX) Branch Influenza Virus 2021-04-24 Completed [facility] of Vaccine,quad 00:00:00 [place] [facility] 65+ Pneumococcal 2021-04-24 Completed [facility] o f Polysaccharide, 00:00:00 [place] [facility] PPSV23 (PNEUMOVAX) Branch Influenza Virus 2021-04-24 Completed [facility] of Vaccine,quad 00:00:00 [facility] 65+ Pneumococcal 2021-04-24 Completed [facility] o f Polysaccharide, 00:00:00 [place] [facility] PPSV23 (PNEUMOVAX) Branch Influenza Virus 2021-04-24 Completed [facility] of Vaccine,quad 00:00:00 [facility] 65+ Pneumococcal 2021-04-24 Completed [facility] o f Polysaccharide, 00:00:00 [place] [facility] PPSV23 (PNEUMOVAX) Branch Influenza Virus 2021-04-24 Completed [facility] of Vaccine,quad 00:00:00 [facility] 65+ Pneumococcal 2021-04-24 Completed [facility] o f Polysaccharide, 00:00:00 [place] [facility] PPSV23 (PNEUMOVAX) Branch Influenza Virus 2021-04-24 Completed [facility] of Vaccine,quad 00:00:00 [facility] 65+ Pneumococcal 2021-04-24 Completed [facility] o f Polysaccharide, 00:00:00 [place] [facility] PPSV23 (PNEUMOVAX) Branch Influenza Virus 2021-04-24 Completed [facility] of Vaccine,quad 00:00:00 [facility] 65+ Pneumococcal 2021-04-24 Completed [facility] o f Polysaccharide, 00:00:00 [place] [facility] PPSV23 (PNEUMOVAX) Branch Influenza Virus 2021-04-24 Completed [facility] of Vaccine,quad 00:00:00 [facility] 65+ Pneumococcal 2021-04-24 Completed [facility] o f Polysaccharide, 00:00:00 [place] [facility] PPSV23 (PNEUMOVAX) Branch Influenza Virus 2021-04-24 Completed [facility] of Vaccine,quad 00:00:00 [facility] 65+ Pneumococcal 2021-04-24 Completed [facility] o f Polysaccharide, 00:00:00 [place] [facility] PPSV23 (PNEUMOVAX) Branch Influenza Virus 2021-04-24 Completed [facility] of Vaccine,quad 00:00:00 [facility] 65+ Pneumococcal 2021-04-24 Completed [facility] o f Polysaccharide, 00:00:00 [place] [facility] PPSV23 (PNEUMOVAX) Branch Influenza Virus 2021-04-24 Completed [facility] of Vaccine,quad 00:00:00 [facility] 65+ Pneumococcal 2021-04-24 Completed [facility] o f Polysaccharide, 00:00:00 [facility] PPSV23 (PNEUMOVAX) Branch Influenza Virus 2021-04-24 Completed [facility] of Vaccine,quad 00:00:00 [facility] 65+ Pneumococcal 2021-04-24 Completed [facility] o f Polysaccharide, 00:00:00 [place] [facility] PPSV23 (PNEUMOVAX) Branch Influenza Virus 2021-04-24 Completed [facility] of Vaccine,quad 00:00:00 [facility] 65+ Pneumococcal 2021-04-24 Completed [facility] o f Polysaccharide, 00:00:00 [place] [facility] PPSV23 (PNEUMOVAX) Branch Influenza Virus 2021-04-24 Completed [facility] Vaccine,quad 00:00:00 [facility] 65+ Pneumococcal 2021-04-24 Completed [facility] o f Polysaccharide, 00:00:00 [place] [facility] PPSV23 (PNEUMOVAX) Branch Influenza Virus 2021-04-24 Completed [facility] Vaccine,quad 00:00:00 [facility] 65+ Pneumococcal 2021-04-24 Completed [facility] o f Polysaccharide, 00:00:00 [place] [facility] PPSV23 (PNEUMOVAX) Branch Influenza Virus 2021-04-24 Completed [facility] of Vaccine,quad 00:00:00 [facility] 65+ Pneumococcal 2021-04-24 Completed [facility] o f Polysaccharide, 00:00:00 [place] [facility] PPSV23 (PNEUMOVAX) Branch Influenza Virus 2021-04-24 Completed [facility] Vaccine,quad 00:00:00 [place] [facility] 65+ Pneumococcal 2021-04-24 Completed [facility] o f Polysaccharide, 00:00:00 [place] [facility] PPSV23 (PNEUMOVAX) Branch Influenza Virus 2021-04-24 Completed [facility] of Vaccine,quad 00:00:00 [place] [facility] 65+ Pneumococcal 2021-04-24 Completed [facility] o f Polysaccharide, 00:00:00 [place] [facility] PPSV23 (PNEUMOVAX) Branch Influenza Virus 2021-04-24 Completed [facility] Vaccine,quad 00:00:00 [facility] 65+ Pneumococcal 2021-04-24 Completed [facility], 00:[facility]00 [place] [facility] PPSV23 (PNEUMOVAX) [facility] Influenza Virus 2021-04-24 Completed [facility] [place] [facility] 65+ Pneumococcal 2021-04-24 Completed [facility], 00:00:00 [place] [facility] PPSV23 (PNEUMOVAX) [facility] Influenza Virus 2021-04-24 Completed [facility]quad 00:00:00 [place] [facility] 65+ Pneumococcal 2021-04-24 Completed [facility], 00:00:00 [place] [facility] PPSV23 (PNEUMOVAX) [facility] Influenza Virus 2021-04-24 Completed [facility]quad 00:00:00 [place] [facility] 65+ Pneumococcal 2021-04-24 Completed [facility], 00:00:00 [place] [facility] PPSV23 (PNEUMOVAX) [facility] Influenza Virus 2021-04-24 Completed [facility]quad 00:00:00 [place] [facility] 65+ Pneumococcal 2021-04-24 Completed [facility], 00:00:00 [place] [facility] PPSV23 (PNEUMOVAX) [facility] Influenza Virus 2021-04-24 Completed [facility] Vacc[facility]quad 00:00:00 [place] [facility] 65+ Pneumococcal 2021-04-24 Completed [facility], 00:00:00 [place] [facility] PPSV23 (PNEUMOVAX) [facility] Influenza Virus 2021-04-24 Completed [facility] Vacc[facility]quad 00:00:00 [place] [facility] 65+ Pneumococcal 2021-04-24 Completed [facility] Pol[facility], 00:00:00 [place] [facility] PPSV23 (PNEUMOVAX) [facility] Influenza Virus 2021-04-24 Completed [facility] Vacc[facility]quad 00:00:00 [place] [facility] 65+ Pneumococcal 2021-04-24 Completed [facility] Pol[facility], 00:00:00 [place] [facility] PPSV23 (PNEUMOVAX) [facility] Influenza Virus 2021-04-24 Completed [facility] Vacc[facility]quad 00:00:00 [place] [facility] 65+ Pneumococcal 2021-04-24 Completed [facility] Pol[facility], 00:00:00 [place] [facility] PPSV23 (PNEUMOVAX) [facility] Influenza Virus 2021-04-24 Completed [facility] Vacc[facility],quad 00:00:00 [place] [facility] 65+ Pneumococcal 2021-04-24 Completed [facility] Pol[facility], 00:00:00 [place] [facility] PPSV23 (PNEUMOVAX) [facility] Influenza Virus 2021-04-24 Completed [facility] Vaccine[facility]quad 00:00:00 [place] [facility] 65+ Pneumococcal 2021-04-24 Completed [facility], 00:00:00 [place] [facility] PPSV23 (PNEUMOVAX) [facility] Influenza Virus 2021-04-24 Completed [facility] Vaccine,quad 00:00:00 [place] [facility] 65+ Pneumococcal 2021-04-24 Completed [facility] Pol[facility], 00:00:00 [place] [facility] PPSV23 (PNEUMOVAX) [facility] Influenza Virus 2021-04-24 Completed [facility] Vaccine,quad 00:00:00 [place] [facility] 65+ Pneumococcal 2021-04-24 Completed [facility] Pol[facility], 00:00:00 [place] [facility] PPSV23 (PNEUMOVAX) [facility] Influenza Virus 2021-04-24 Completed [facility] Vaccine,quad 00:00:00 [place] [facility] 65+ Pneumococcal 2021-04-24 Completed [facility] Pol[facility], 00:00:00 [place] [facility] PPSV23 (PNEUMOVAX) Branch Influenza Virus 2021-04-24 Completed [facility] Vaccine,quad 00:00:00 [place] [facility] 65+ Pneumococcal 2021-04-24 Completed [facility] Pol[facility], 00:00:00 [place] [facility] PPSV23 (PNEUMOVAX) [facility] Influenza Virus 2021-04-24 Completed [facility] Vaccine,quad 00:00:00 [place] [facility] 65+ Pneumococcal 2021-04-24 Completed [facility] Pol[facility], 00:00:00 [place] [facility] PPSV23 (PNEUMOVAX) Branch Influenza Virus 2021-04-24 Completed [facility] Vacc[facility],quad 00:00:00 [place] [facility] 65+ Pneumococcal 2021-04-24 Completed [facility] Pol[facility], 00:00:00 [place] [facility] PPSV23 (PNEUMOVAX) [facility] Influenza Virus 2021-04-24 Completed [facility] Vacc[facility],quad 00:00:00 [place] [facility] 65+ Pneumococcal 2021-04-24 Completed [facility] Pol[facility], 00:00:00 [place] [facility] PPSV23 (PNEUMOVAX) Branch Influenza Virus 2021-04-24 Completed [facility] Vaccine,quad 00:00:00 [place] [facility] 65+ Pneumococcal 2021-04-24 Completed [facility] Pol[facility], 00:00:00 [place] [facility] PPSV23 (PNEUMOVAX) Branch Influenza Virus 2021-04-24 Completed [facility] Vaccine,quad 00:00:00 [place] [facility] 65+ Pneumococcal 2021-04-24 Completed [facility] Pol[facility], 00:00:00 [place] [facility] PPSV23 (PNEUMOVAX) Branch Influenza Virus 2021-04-24 Completed [facility] Vacc[facility],quad 00:00:00 [place] [facility] 65+ Pneumococcal 2021-04-24 Completed [facility] Pol[facility], 00:00:00 [place] [facility] PPSV23 (PNEUMOVAX) Branch Influenza Virus 2021-04-24 Completed [facility] Vacc[facility],quad 00:00:00 [place] [facility] 65+ Pneumococcal 2021-04-24 Completed [facility] Pol[facility], 00:00:00 [place] [facility] PPSV23 (PNEUMOVAX) Branch Influenza Virus 2021-04-24 Completed [facility] Vaccine,quad 00:00:00 [place] [facility] 65+ Pneumococcal 2021-04-24 Completed [facility] Pol[facility], 00:00:00 [place] [facility] PPSV23 (PNEUMOVAX) Branch Influenza Virus 2021-04-24 Completed [facility] Vaccine,quad 00:00:00 [place] [facility] 65+ Pneumococcal 2021-04-24 Completed [facility] Pol[facility]accharide, 00:00:00 [place] [facility] PPSV23 (PNEUMOVAX) Branch Influenza Virus 2021-04-24 Completed [facility] Vaccine,quad 00:00:00 [place] [facility] 65+ Pneumococcal 2021-04-24 Completed [facility] Pol[facility]accharide, 00:00:00 [place] [facility] PPSV23 (PNEUMOVAX) Branch Influenza Virus 2021-04-24 Completed [facility] Vaccine,quad 00:00:00 [place] [facility] 65+ Pneumococcal 2021-04-24 Completed [facility] Pol[facility], 00:00:00 [place] [facility] PPSV23 (PNEUMOVAX) Branch Influenza Virus 2021-04-24 Completed [facility] Vaccine,quad 00:00:00 [place] [facility] 65+ Pneumococcal 2021-04-24 Completed [facility] Pol[facility], 00:00:00 [place] [facility] PPSV23 (PNEUMOVAX) Branch Influenza Virus 2021-04-24 Completed [facility] Vacc[facility],quad 00:00:00 [place] [facility] 65+ Pneumococcal 2021-04-24 Completed [facility] Pol[facility], 00:00:00 [place] [facility] PPSV23 (PNEUMOVAX) Branch Influenza Virus 2021-04-24 Completed [facility] Vacc[facility],quad 00:00:00 [place] [facility] 65+ Pneumococcal 2021-04-24 Completed [facility] Pol[facility], 00:00:00 [place] [facility] PPSV23 (PNEUMOVAX) Branch Influenza Virus 2021-04-24 Completed [facility] Vaccine,quad 00:00:00 [place] [facility] 65+ Pneumococcal 2021-04-24 Completed [facility] Pol[facility], 00:00:00 [place] [facility] PPSV23 (PNEUMOVAX) Branch Influenza Virus 2021-04-24 Completed [facility] Vacc[facility],quad 00:00:00 [place] [facility] 65+ Pneumococcal 2021-04-24 Completed [facility] Pol[facility], 00:00:00 [place] [facility] PPSV23 (PNEUMOVAX) Branch Influenza Virus 2021-04-24 Completed [facility] Vaccine,quad 00:00:00 [place] [facility] 65+ Pneumococcal 2021-04-24 Completed [facility] Pol[facility], 00:00:00 [place] [facility] PPSV23 (PNEUMOVAX) Branch Influenza Virus 2021-04-24 Completed [facility] Vacc[facility],quad 00:00:00 [place] [facility] 65+ Pneumococcal 2021-04-24 Completed [facility] Pol[facility], 00:00:00 [place] [facility] PPSV23 (PNEUMOVAX) Branch Influenza Virus 2021-04-24 Completed [facility]quad 00:00:00 [place] [facility] 65+ Pneumococcal 2021-04-24 Completed [facility] Pol[facility], 00:00:00 [place] [facility] PPSV23 (PNEUMOVAX) Branch Influenza Virus 2021-04-24 Completed [facility] Vaccine,quad 00:00:00 [place] [facility] 65+ Pneumococcal 2021-04-24 Completed [facility] Pol[facility], 00:00:00 [place] [facility] PPSV23 (PNEUMOVAX) [facility] Influenza Virus 2021-04-24 Completed [facility] Vacc[facility]quad 00:00:00 [place] [facility] 65+ Pneumococcal 2021-04-24 Completed [facility] Pol[facility], 00:00:00 [place] [facility] PPSV23 (PNEUMOVAX) Branch Influenza Virus 2021-04-24 Completed [facility] Vacc[facility]quad 00:00:00 [place] [facility] 65+ Pneumococcal 2021-04-24 Completed [facility] Pol[facility], 00:00:00 [place] [facility] PPSV23 (PNEUMOVAX) Branch Influenza Virus 2021-04-24 Completed [facility] Vacc[facility]quad 00:00:00 [place] [facility] 65+ Pneumococcal 2021-04-24 Completed [facility] Pol[facility], 00:00:00 [place] [facility] PPSV23 (PNEUMOVAX) Branch Influenza Virus 2021-04-24 Completed [facility] Vaccine,quad 00:00:00 [place] [facility] 65+ Pneumococcal 2021-04-24 Completed [facility] Pol[facility]accharide, 00:00:00 [place] [facility] PPSV23 (PNEUMOVAX) Branch Influenza Virus 2021-04-24 Completed [facility] Vaccine,quad 00:00:00 [place] [facility] 65+ Pneumococcal 2021-04-24 Completed [facility] Polysaccharide, 00:00:00 [place] [facility] PPSV23 (PNEUMOVAX) Branch Influenza Virus 2021-04-24 Completed [facility] Vacc[facility],quad 00:00:00 [place] [facility] 65+ Pneumococcal 2021-04-24 Completed [facility] Pol[facility], 00:00:00 [place] [facility] PPSV23 (PNEUMOVAX) Branch Influenza Virus 2021-04-24 Completed [facility] Vacc[facility],quad 00:00:00 [place] [facility] 65+ Pneumococcal 2021-04-24 Completed [facility] Pol[facility], 00:00:00 [place] [facility] PPSV23 (PNEUMOVAX) Branch Influenza Virus 2021-04-24 Completed [facility],quad 00:00:00 [place] [facility] 65+ Pneumococcal 2021-04-24 Completed [facility] Pol[facility]accharide, 00:00:00 [place] [facility] PPSV23 (PNEUMOVAX) Branch Influenza Virus 2021-04-24 Completed [facility] Vaccine,quad 00:00:00 [place] [facility] 65+ Pneumococcal 2021-04-24 Completed [facility] Pol[facility]accharide, 00:00:00 [place] [facility] PPSV23 (PNEUMOVAX) Branch Influenza Virus 2021-04-24 Completed [facility] Vacc[facility],quad 00:00:00 [place] [facility] 65+ Pneumococcal 2021-04-24 Completed [facility] Pol[facility]accharide, 00:00:00 [place] [facility] PPSV23 (PNEUMOVAX) Branch Influenza Virus 2021-04-24 Completed [facility] Vaccine,quad 00:00:00 [place] [facility] 65+ Pneumococcal 2021-04-24 Completed [facility] Polysaccharide, 00:00:00 [place] [facility] PPSV23 (PNEUMOVAX) Branch Influenza Virus 2021-04-24 Completed [facility] Vaccine,quad 00:00:00 [place] [facility] 65+ Pneumococcal 2021-04-24 Completed [facility] Polysaccharide, 00:00:00 [place] [facility] PPSV23 (PNEUMOVAX) Branch Influenza Virus 2021-04-24 Completed [facility] Vaccine,quad 00:00:00 [place] [facility] 65+ Pneumococcal 2021-04-24 Completed [facility] Pol[facility]accharide, 00:00:00 [place] [facility] PPSV23 (PNEUMOVAX) Branch Influenza Virus 2021-04-24 Completed [facility] Vacc[facility],quad 00:00:00 [place] [facility] 65+ Pneumococcal 2021-04-24 Completed [facility] Pol[facility]accharide, 00:00:00 [place] [facility] PPSV23 (PNEUMOVAX) Branch Influenza Virus 2021-04-24 Completed [facility] Vaccine,quad 00:00:00 [place] [facility] 65+ Pneumococcal 2021-04-24 Completed [facility] Polysaccharide, 00:00:00 [place] [facility] PPSV23 (PNEUMOVAX) Branch Influenza Virus 2021-04-24 Completed [facility] Vacc[facility],quad 00:00:00 [place] [facility] 65+ Pneumococcal 2021-04-24 Completed [facility] Polysaccharide, 00:00:00 [place] [facility] PPSV23 (PNEUMOVAX) Branch Influenza Virus 2021-04-24 Completed [facility],quad 00:00:00 [place] [facility] 65+ Pneumococcal 2021-04-24 Completed [facility] Pol[facility]accharide, 00:00:00 [place] [facility] PPSV23 (PNEUMOVAX) Branch Influenza Virus 2021-04-24 Completed [facility] Vacc[facility],quad 00:00:00 [place] [facility] 65+ Pneumococcal 2021-04-24 Completed [facility] Pol[facility]accharide, 00:00:00 [place] [facility] PPSV23 (PNEUMOVAX) Branch Influenza Virus 2021-04-24 Completed [facility],quad 00:00:00 [place] [facility] 65+ Pneumococcal 2021-04-24 Completed [facility] Pol[facility]accharide, 00:00:00 [place] [facility] PPSV23 (PNEUMOVAX) Branch Influenza Virus 2021-04-24 Completed [facility] Vaccine,quad 00:00:00 [place] [facility] 65+ Pneumococcal 2021-04-24 Completed [facility] Pol[facility]accharide, 00:00:00 [place] [facility] PPSV23 (PNEUMOVAX) Branch Influenza Virus 2021-04-24 Completed [facility],quad 00:00:00 [place] [facility] 65+ Pneumococcal 2021-04-24 Completed [facility] Pol[facility]accharide, 00:00:00 [place] [facility] PPSV23 (PNEUMOVAX) Branch Influenza Virus 2021-04-24 Completed [facility] Vacc[facility],quad 00:00:00 [place] [facility] 65+ Pneumococcal 2021-04-24 Completed [facility] Polysaccharide, 00:00:00 [place] [facility] PPSV23 (PNEUMOVAX) Branch Influenza Virus 2021-04-24 Completed [facility] Vaccine,quad 00:00:00 [place] [facility] 65+ Pneumococcal 2021-04-24 Completed [facility] Polysaccharide, 00:00:00 [place] [facility] PPSV23 (PNEUMOVAX) Branch Influenza Virus 2021-04-24 Completed [facility] Vaccine,quad 00:00:00 [place] [facility] 65+ Pneumococcal 2021-04-24 Completed [facility] Polysaccharide, 00:00:00 [place] [facility] PPSV23 (PNEUMOVAX) Branch Influenza Virus 2021-04-24 Completed [facility] Vaccine,quad 00:00:00 [place] [facility] 65+ Pneumococcal 2021-04-24 Completed [facility] Pol[facility]accharide, 00:00:00 [place] [facility] PPSV23 (PNEUMOVAX) Branch Influenza Virus 2021-04-24 Completed [facility] Vaccine,quad 00:00:00 [place] [facility] 65+ Pneumococcal 2021-04-24 Completed [facility] Polysaccharide, 00:00:00 [place] [facility] PPSV23 (PNEUMOVAX) Branch Influenza Virus 2021-04-24 Completed [facility] Vaccine,quad 00:00:00 [place] [facility] 65+ Pneumococcal 2021-04-24 Completed [facility] Polysaccharide, 00:00:00 [place] [facility] PPSV23 (PNEUMOVAX) Branch Influenza Virus 2021-04-24 Completed [facility] Vaccine,quad 00:00:00 [place] [facility] 65+ Pneumococcal 2021-04-24 Completed [facility] Polysaccharide, 00:00:00 [place] [facility] PPSV23 (PNEUMOVAX) Branch Influenza Virus 2021-04-24 Completed [facility],quad 00:00:00 [place] [facility] 65+ Pneumococcal 2021-04-24 Completed [facility] Polysaccharide, 00:00:00 [place] [facility] PPSV23 (PNEUMOVAX) Branch Influenza Virus 2021-04-24 Completed [facility] Vaccine,quad 00:00:00 [place] [facility] 65+ Pneumococcal 2021-04-24 Completed [facility] Polysaccharide, 00:00:00 [place] [facility] PPSV23 (PNEUMOVAX) Branch Influenza Virus 2021-04-24 Completed [facility] Vaccine,quad 00:00:00 [place] [facility] 65+ Pneumococcal 2021-04-24 Completed [facility] Polysaccharide, 00:00:00 [place] [facility] PPSV23 (PNEUMOVAX) Branch Influenza Virus 2021-04-24 Completed [facility] Vaccine,quad 00:00:00 [place] [facility] 65+ Pneumococcal 2021-04-24 Completed [facility] Polysaccharide, 00:00:00 [place] [facility] PPSV23 (PNEUMOVAX) Branch Influenza Virus 2021-04-24 Completed [facility] Vaccine,quad 00:00:00 [place] [facility] 65+ Pneumococcal 2021-04-24 Completed [facility] Polysaccharide, 00:00:00 [place] [facility] PPSV23 (PNEUMOVAX) Branch Influenza Virus 2021-04-24 Completed [facility] Vaccine,quad 00:00:00 [place] [facility] 65+ Pneumococcal 2021-04-24 Completed [facility] Polysaccharide, 00:00:00 [place] [facility] PPSV23 (PNEUMOVAX) Branch Influenza Virus 2021-04-24 Completed [facility] Vaccine,quad 00:00:00 [place] [facility] 65+ Pneumococcal 2021-04-24 Completed [facility] Polysaccharide, 00:00:00 [place] [facility] PPSV23 (PNEUMOVAX) Branch Influenza Virus 2021-04-24 Completed [facility] Vaccine,quad 00:00:00 [place] [facility] 65+ Pneumococcal 2021-04-24 Completed [facility] Polysaccharide, 00:00:00 [place] [facility] PPSV23 (PNEUMOVAX) Branch Influenza Virus 2021-04-24 Completed [facility] Vaccine,quad 00:00:00 [place] [facility] 65+ Pneumococcal 2021-04-24 Completed [facility] Polysaccharide, 00:00:00 [place] [facility] PPSV23 (PNEUMOVAX) Branch Influenza Virus 2021-04-24 Completed [facility] Vaccine,quad 00:00:00 [place] [facility] 65+ Pneumococcal 2021-04-24 Completed [facility] Polysaccharide, 00:00:00 [place] [facility] PPSV23 (PNEUMOVAX) Branch Influenza Virus 2021-04-24 Completed [facility] Vaccine,quad 00:00:00 [place] [facility] 65+ Pneumococcal 2021-04-24 Completed [facility] Polysaccharide, 00:00:00 [place] [facility] PPSV23 (PNEUMOVAX) Branch Influenza Virus 2021-04-24 Completed [facility] Vaccine,quad 00:00:00 [place] [facility] 65+ Pneumococcal 2021-04-24 Completed [facility] Polysaccharide, 00:00:00 [place] [facility] PPSV23 (PNEUMOVAX) Branch Influenza Virus 2021-04-24 Completed [facility] Vaccine,quad 00:00:00 [place] [facility] 65+ Pneumococcal 2021-04-24 Completed [facility] Polysaccharide, 00:00:00 [place] [facility] PPSV23 (PNEUMOVAX) Branch Influenza Virus 2021-04-24 Completed [facility] Vaccine,quad 00:00:00 [place] [facility] 65+ Pneumococcal 2021-04-24 Completed [facility] Polysaccharide, 00:00:00 [place] [facility] PPSV23 (PNEUMOVAX) Branch Influenza Virus 2021-04-24 Completed [facility] Vaccine,quad 00:00:00 [place] [facility] 65+ Pneumococcal 2021-04-24 Completed [facility] Polysaccharide, 00:00:00 [place] [facility] PPSV23 (PNEUMOVAX) Branch Influenza Virus 2021-04-24 Completed [facility] Vaccine,quad 00:00:00 [place] [facility] 65+ Pneumococcal 2021-04-24 Completed [facility] Polysaccharide, 00:00:00 [place] [facility] PPSV23 (PNEUMOVAX) Branch Influenza Virus 2021-04-24 Completed [facility] Vaccine,quad 00:00:00 [place] [facility] 65+ Pneumococcal 2021-04-24 Completed [facility] Polysaccharide, 00:00:00 [place] [facility] PPSV23 (PNEUMOVAX) Branch Influenza Virus 2021-04-24 Completed [facility]ine,quad 00:00:00 [place] [facility] 65+ Pneumococcal 2021-04-24 Completed [facility] Polysaccharide, 00:00:00 [place] [facility] PPSV23 (PNEUMOVAX) Branch Influenza Virus 2021-04-24 Completed [facility]ine,quad 00:00:00 [place] [facility] 65+ Pneumococcal 2021-04-24 Completed [facility] Polysaccharide, 00:00:00 [place] [facility] PPSV23 (PNEUMOVAX) Branch Influenza Virus 2021-04-24 Completed [facility]ine,quad 00:00:00 [place] [facility] 65+ Pneumococcal 2021-04-24 Completed [facility] Polysaccharide, 00:00:00 [place] [facility] PPSV23 (PNEUMOVAX) Branch Influenza Virus 2021-04-24 Completed [facility] Vaccine,quad 00:00:00 [place] [facility] 65+ Pneumococcal 2021-04-24 Completed [facility] Polysaccharide, 00:00:00 [place] [facility] PPSV23 (PNEUMOVAX) Branch Influenza Virus 2021-04-24 Completed [facility] Vaccine,quad 00:00:00 [place] [facility] 65+ Pneumococcal 2021-04-24 Completed [facility] Polysaccharide, 00:00:00 [place] [facility] PPSV23 (PNEUMOVAX) Branch Influenza Virus 2021-04-24 Completed [facility],quad 00:00:00 [place] [facility] 65+ Pneumococcal 2021-04-24 Completed [facility] Pol[facility]accharide, 00:00:00 [place] [facility] PPSV23 (PNEUMOVAX) Branch Influenza Virus 2021-04-24 Completed [facility]ine,quad 00:00:00 [place] [facility] 65+ Pneumococcal 2021-04-24 Completed [facility] Polysaccharide, 00:00:00 [place] [facility] PPSV23 (PNEUMOVAX) Branch Influenza Virus 2021-04-24 Completed [facility] Vaccine,quad 00:00:00 [place] [facility] 65+ Pneumococcal 2021-04-24 Completed [facility] Polysaccharide, 00:00:00 [place] [facility] PPSV23 (PNEUMOVAX) Branch Influenza Virus 2021-04-24 Completed [facility],quad 00:00:00 [place] [facility] 65+ Pneumococcal 2021-04-24 Completed [facility] Polysaccharide, 00:00:00 [place] [facility] PPSV23 (PNEUMOVAX) Branch Influenza Virus 2021-04-24 Completed [facility]ine,quad 00:00:00 [place] [facility] 65+ Pneumococcal 2021-04-24 Completed [facility] Polysaccharide, 00:00:00 [place] [facility] PPSV23 (PNEUMOVAX) Branch Influenza Virus 2021-04-24 Completed [facility]quad 00:00:00 [place] [facility] 65+ Pneumococcal 2021-04-24 Completed [facility] Polysaccharide, 00:00:00 [place] [facility] PPSV23 (PNEUMOVAX) Branch Influenza Virus 2021-04-24 Completed [facility]ine,quad 00:00:00 [place] [facility] 65+ Pneumococcal 2021-04-24 Completed [facility] Polysaccharide, 00:00:00 [place] [facility] PPSV23 (PNEUMOVAX) Branch Influenza Virus 2021-04-24 Completed [facility] Vaccine,quad 00:00:00 [place] [facility] 65+ Pneumococcal 2021-04-24 Completed [facility] Polysaccharide, 00:00:00 [place] [facility] PPSV23 (PNEUMOVAX) Branch Influenza Virus 2021-04-24 Completed [facility] Vaccine,quad 00:00:00 [place] [facility] 65+ Pneumococcal 2021-04-24 Completed [facility] Polysaccharide, 00:00:00 [place] [facility] PPSV23 (PNEUMOVAX) Branch Influenza Virus 2021-04-24 Completed [facility] Vaccine,quad 00:00:00 [place] [facility] 65+ Pneumococcal 2021-04-24 Completed [facility] Polysaccharide, 00:00:00 [place] [facility] PPSV23 (PNEUMOVAX) Branch Influenza Virus 2021-04-24 Completed [facility] Vaccine,quad 00:00:00 [place] [facility] 65+ Pneumococcal 2021-04-24 Completed [facility] Polysaccharide, 00:00:00 [place] [facility] PPSV23 (PNEUMOVAX) Branch Influenza Virus 2021-04-24 Completed [facility] Vaccine,quad 00:00:00 [place] [facility] 65+ Pneumococcal 2021-04-24 Completed [facility] Polysaccharide, 00:00:00 [place] [facility] PPSV23 (PNEUMOVAX) Branch Influenza Virus 2021-04-24 Completed [facility] Vaccine,quad 00:00:00 [place] [facility] 65+ Pneumococcal 2021-04-24 Completed [facility] Polysaccharide, 00:00:00 [place] [facility] PPSV23 (PNEUMOVAX) Branch Influenza Virus 2021-04-24 Completed [facility]quad 00:00:00 [place] [facility] 65+ Vital Signs Vital Name Observation Time Observation Value Comments Source Systolic blood 2022-08-14 14:18:00 138 mm[Hg] [facility] Diastolic blood 2022-08-14 14:18:00 64 mm[Hg] Unive rs[facility] of pressure [facility] Heart rate 2022-08-14 14:10:00 57 /min [facility] Respiratory rate 2022-08-14 14:10:00 18 /min [facility] Body height 2022-08-14 14:10:00 180.3 cm [facility] Body weight 2022-08-14 14:10:00 102.059 kg [facility] BMI 2022-08-14 14:10:00 31.38 kg/m2 [facility] Systolic blood 2022-08-05 19:03:00 135 mm[Hg] [facility] Diastolic blood 2022-08-05 19:03:00 69 mm[Hg] [facility] Heart rate 2022-08-05 19:03:00 57 /min [facility] Body temperature 2022-08-05 19:03:00 36.11 [place] [facility] Body weight 2022-08-05 19:03:00 101.152 kg per pt [facility] BMI 2022-08-05 19:03:00 30.24 kg/m2 [facility] Oxygen saturation in 2022-08-05 19:03:00 95 /min [facility] Arterial blood by [employer] jennifer [facility] Body height 2022-07-14 13:28:00 182.9 cm [facility] Body weight 2022-07-14 13:28:00 102.059 kg [facility] BMI 2022-07-14 13:28:00 30.52 kg/m2 [facility] Systolic blood 2022-07-07 15:17:00 138 mm[Hg] [facility] Diastolic blood 2022-07-07 15:17:00 72 mm[Hg] [facility] Heart rate 2022-07-07 15:16:00 60 /min [facility] Body height 2022-07-07 15:16:00 182.9 cm [facility] Body weight 2022-07-07 15:16:00 102.059 kg [facility] BMI 2022-07-07 15:16:00 30.52 kg/m2 [facility] Oxygen saturation in 2022-07-07 15:16:00 96 /min [facility] Arterial blood by [employer] jennifer [facility] Systolic blood 2022-07-03 20:41:00 138 mm[Hg] [facility] Diastolic blood 2022-07-03 20:41:00 55 mm[Hg] [facility] Heart rate 2022-07-03 20:41:00 57 /min [facility] Body height 2022-07-03 20:41:00 182.9 cm [facility] Body weight 2022-07-03 20:41:00 100.699 kg [facility] BMI 2022-07-03 20:41:00 30.11 kg/m2 [facility] Oxygen saturation in 2022-07-03 20:41:00 95 /min [facility] by [facility] Systolic blood 2022-06-19 18:14:00 137 mm[Hg] [facility] Diastolic blood 2022-06-19 18:14:00 69 mm[Hg] [facility] Heart rate 2022-06-19 18:14:00 58 /min [facility] Respiratory rate 2022-06-19 18:14:00 23 /min [facility] Body height 2022-06-19 18:14:00 177.8 cm [facility] Body weight 2022-06-19 18:14:00 102.059 kg [facility] BMI 2022-06-19 18:14:00 32.28 kg/m2 [facility] Oxygen saturation in 2022-06-19 18:14:00 96 /min [facility] Systolic blood 2022-06-12 14:26:00 159 mm[Hg] [facility] Diastolic blood 2022-06-12 14:26:00 75 mm[Hg] [facility] Heart rate 2022-06-12 14:25:00 69 /min [facility] Body height 2022-06-12 14:25:00 182.9 cm [facility] Body weight 2022-06-12 14:25:00 102.105 kg [facility] BMI 2022-06-12 14:25:00 30.53 kg/m2 [facility] Systolic blood 2022-06-11 13:26:00 164 mm[Hg] [facility] Diastolic blood 2022-06-11 13:26:00 73 mm[Hg] [facility] Heart rate 2022-06-11 13:25:00 66 /min [facility] Body temperature 2022-06-11 13:25:00 36.56 Yumiko [facility] Body height 2022-06-11 13:25:00 182.9 cm [facility] Body weight 2022-06-11 13:25:00 101.152 kg [facility] BMI 2022-06-11 13:25:00 30.24 kg/m2 [facility] Oxygen saturation in 2022-06-11 13:25:00 97 /min [facility] Systolic blood 2022-06-10 14:16:00 150 mm[Hg] [facility] Diastolic blood 2022-06-10 14:16:00 69 mm[Hg] [facility] Heart rate 2022-06-10 14:16:00 59 /min [facility] Body temperature 2022-06-10 14:16:00 36.61 Yumiko [facility] Respiratory rate 2022-06-10 14:16:00 18 /min [facility] Body height 2022-06-10 14:16:00 182.9 cm [facility] Body weight 2022-06-10 14:16:00 101.152 kg [facility] BMI 2022-06-10 14:16:00 30.24 kg/m2 [facility] Systolic blood 2022-06-05 14:07:00 197 mm[Hg] [facility] Diastolic blood 2022-06-05 14:07:00 90 mm[Hg] [facility] Heart rate 2022-06-05 14:07:00 60 /min [facility] Respiratory rate 2022-06-05 14:07:00 20 /min [facility] Oxygen saturation in 2022-06-05 14:07:00 99 /min [facility] [place] [employer]enn[facility] Body temperature 2022-06-05 13:56:00 36.67 Yumiko [facility] Body height 2022-06-05 13:56:00 182.9 cm [facility] Body weight 2022-06-05 13:56:00 100.699 kg [facility] BMI 2022-06-05 13:56:00 30.11 kg/m2 [facility] Systolic blood 2022-05-13 20:14:00 160 mm[Hg] [facility] Diastolic blood 2022-05-13 20:14:00 81 mm[Hg] [facility] Heart rate 2022-05-13 20:08:00 62 /min [facility] Body weight 2022-05-13 20:08:00 100.699 kg [facility] BMI 2022-05-13 20:08:00 30.11 kg/m2 [facility] Oxygen saturation in 2022-05-13 20:08:00 95 /min [facility] Systolic blood 2022-05-12 18:39:00 172 mm[Hg] [facility] Diastolic blood 2022-05-12 18:39:00 84 mm[Hg] [facility] Heart rate 2022-05-12 18:38:00 64 /min [facility] Body height 2022-05-12 18:38:00 182.9 cm [facility] Body weight 2022-05-12 18:38:00 102.967 kg [facility] BMI 2022-05-12 18:38:00 30.79 kg/m2 [facility] Systolic blood 2022-05-04 19:46:00 176 mm[Hg] [facility] Diastolic blood 2022-05-04 19:46:00 72 mm[Hg] [facility] Heart rate 2022-05-04 19:46:00 65 /min [facility] Body height 2022-05-04 19:45:00 182.9 cm [facility] Body weight 2022-05-04 19:45:00 103.057 kg [facility] BMI 2022-05-04 19:45:00 30.81 kg/m2 [facility] Oxygen saturation in 2022-05-04 19:45:00 97 /min [facility] Systolic blood 2022-05-01 16:12:00 136 mm[Hg] [facility] Diastolic blood 2022-05-01 16:12:00 68 mm[Hg] [facility] Heart rate 2022-05-01 16:12:00 62 /min [facility] Body temperature 2022-05-01 16:12:00 36.56 Yumiko [facility] Respiratory rate 2022-05-01 16:12:00 16 /min [facility] Body weight 2022-05-01 16:12:00 100.699 kg [facility] BMI 2022-05-01 16:12:00 30.11 kg/m2 [facility] Oxygen saturation in 2022-05-01 16:12:00 98 /min [facility] Systolic blood 2022-04-01 20:41:00 138 mm[Hg] [facility] Diastolic blood 2022-04-01 20:41:00 73 mm[Hg] [facility] Heart rate 2022-04-01 20:41:00 64 /min [facility] Body weight 2022-04-01 20:41:00 102.694 kg [facility] BMI 2022-04-01 20:41:00 30.71 kg/m2 [facility] Oxygen saturation in 2022-04-01 20:41:00 98 /min [facility] Systolic blood 2022-02-17 16:13:00 152 mm[Hg] [facility] Diastolic blood 2022-02-17 16:13:00 81 mm[Hg] [facility] Heart rate 2022-02-17 14:50:00 59 /min [facility] Body temperature 2022-02-17 14:50:00 36.94 Yumiko [facility] Body height 2022-02-17 14:50:00 182.9 cm [facility] Body weight 2022-02-17 14:50:00 100.699 kg [facility] BMI 2022-02-17 14:50:00 30.11 kg/m2 [facility] Oxygen saturation in 2022-02-17 14:50:00 95 /min [facility] [place] [facility] Systolic blood 2022-01-05 16:06:00 144 mm[Hg] [facility] Diastolic blood 2022-01-05 16:06:00 69 mm[Hg] [facility] Heart rate 2022-01-05 16:06:00 64 /min [facility] Body height 2022-01-05 16:06:00 182.9 cm [facility] Body weight 2022-01-05 16:06:00 106.142 kg [facility] BMI 2022-01-05 16:06:00 31.74 kg/m2 [facility] Oxygen saturation in 2022-01-05 16:06:00 97 /min [facility] Systolic blood 2021-12-21 13:20:00 127 mm[Hg] [facility] Diastolic blood 2021-12-21 13:20:00 69 mm[Hg] [facility] Heart rate 2021-12-21 13:20:00 68 /min [facility] Body temperature 2021-12-21 13:20:00 35.83 Yumiko [facility] Respiratory rate 2021-12-21 13:20:00 18 /min [facility] Oxygen saturation in 2021-12-21 13:20:00 96 /min [facility] Body weight 2021-12-21 09:04:00 101.969 kg [facility] BMI 2021-12-21 09:04:00 30.49 kg/m2 [facility] Body height 2021-12-19 18:50:00 182.9 cm [facility] Systolic blood 2021-12-10 17:00:00 120 mm[Hg] [facility] Diastolic blood 2021-12-10 17:00:00 67 mm[Hg] Unive rsity of pressure [facility] Heart rate 2021-12-10 17:00:00 78 /min [facility] Respiratory rate 2021-12-10 17:00:00 18 /min [facility] Body height 2021-12-10 17:00:00 182.9 cm [facility] Body weight 2021-12-10 17:00:00 96.253 kg [facility] BMI 2021-12-10 17:00:00 28.78 kg/m2 [facility] Oxygen saturation in 2021-12-10 17:00:00 95 /min [facility] Systolic blood 2021-06-26 18:16:00 122 mm[Hg] [facility] Diastolic blood 2021-06-26 18:16:00 75 mm[Hg] [facility] Heart rate 2021-06-26 18:16:00 68 /min [facility] Body height 2021-06-26 18:16:00 182.9 cm [facility] Body weight 2021-06-26 18:16:00 101.152 kg stated [facility] BMI 2021-06-26 18:16:00 30.24 kg/m2 [facility] Oxygen saturation in 2021-06-26 18:16:00 96 /min [facility] Procedures Procedure Date / Time Performing Clinician Source Performed HOME HEALTH 485 2022-06-26 05:01:00 Doctor Unassigned, [facility] [place] [facility] HOME HEALTH 485 2022-06-15 05:01:00 Doctor Unassigned, [facility] Name [facility] MICROALBUMIN URINE 2022-06-11 19:00:00 Cyrus Pablo [facility] URINALYSIS 2022-06-11 19:00:00 [facility] BASIC METABOLIC PANEL 2022-06-11 14:04:00 [facility] (NA, K, CL, CO2, GLUCOSE, Medica l Branch BUN, CREATININE, CA) XR CHEST 2 VW 2022-06-05 16:12:02 [facility] CBC WITH DIFF 2022-06-05 15:23:00 [facility] FREE T4 2022-06-05 15:23:00 [facility] THYROID STIMULATING 2022-06-05 15:23:00 [facility] COMP. METABOLIC PANEL 2022-06-05 15:23:00 [facility] ([id number]) [facility] LIPID PANEL ([id number])(TOTAL 2022-06-05 15:23:00 Cyrus Pablo [facility] CHOLESTEROL, [facility] TRIGLYCERIDES, HDL) N-TERMINAL PRO-BNP 2022-06-05 15:23:[address] [facility] TDAP VACCINE, >11 YRS, IM 2022-05-04 20:34:16 Philip [facility] [address] [facility] [place] [place] PNEUMOCOCCAL 20 CONJUGATE 2022-05-04 20:34:16 Philip Dawson [facility] (PREVNAR 20) VACCINE [facility] XR ELBOW >3 VW RIGHT 2022-05-01 17:54:00 Landon Cervantes [facility] XR HUMERUS 2 VW RIGHT 2022-05-01 17:54:00 [facility] XR FOREARM 2 VW RIGHT 2022-05-01 17:54:00 Landon Cervantes [facility] XR SHOULDER 2+ VW RIGHT 2022-05-01 17:54:00 Landon [facility]ervantes [facility] HUMERUS 2 VW RIGHT 2022-05-01 17:54:00 EbLandon silva [facility] XR FOREARM 2 VW RIGHT 2022-05-01 17:54:00 Landon Cervantes [facility] XR ELBOW >3 VW RIGHT 2022-05-01 17:54:[address] [facility] PATIENT FINANCIAL 2022-05-01 16:02:10 Doctor Unassigned, [facility] POLICY [place] [facility] POCT HEMOGLOBIN A1C TEST 2022-04-01 20:56:00 Chandan Sheehan [facility] PATIENT QUESTIONNAIRE 2022-03-28 06:01:00 Doctor Unassigned, [facility] [place] [facility] [place] [facility] POCT URINALYSIS 2022-02-17 16:11:00 Kaci Marcy [place] [facility] ASSIGNMENT OF BENEFITS 2022-01-05 15:58:59 Doctor Unassigned, [facility] Name [facility] [place] CONSENT/REFUSAL FOR 2022-01-05 15:57:56 Doctor Unassigned, [facility] DIAGNOSIS AND TREATMENT [place] [facility] POCT GLUCOSE (AUTOMATED) 2021-12-21 17:29:00 Morales Mckeon [facility] POCT GLUCOSE (AUTOMATED) 2021-12-21 13:22:00 Morales Mckeon [facility] BASIC METABOLIC PANEL 2021-12-21 09:46:00 Padma Sullivan [facility] (NA, K, CL, CO2, GLUCOSE, Medica l Branch BUN, CREATININE, CA) CBC WITH DIFF 2021-12-21 09:46:00 [facility] GLUCOSE (AUTOMATED) 2021-12-21 00:56:00 Morales Mckeon [facility] POCT GLUCOSE (AUTOMATED) 2021-12-20 21:23:00 Morales Mckeon [facility] POCT GLUCOSE (AUTOMATED) 2021-12-20 16:24:00 Morales Mckeon [facility] POCT GLUCOSE (AUTOMATED) 2021-12-20 12:38:00 Morales Mckeon [facility] BASIC METABOLIC PANEL 2021-12-20 09:12:00 Padma Sullivan [facility] (NA, K, CL, CO2, GLUCOSE, Medica l Branch BUN, CREATININE, CA) CBC WITH DIFF 2021-12-20 09:12:00 Padma Sullivan [facility] POCT GLUCOSE (AUTOMATED) 2021-12-20 01:16:00 Reese Hanson [facility] POCT GLUCOSE (AUTOMATED) 2021-12-19 21:36:00 Reese Hanson [facility] MS RESUP NPTERF WND BODY 2021-12-19 18:22:00 Anuj Barroso [facility] 2.6-7.5 CM [facility] BLOOD CULTURE SCREEN 2021-12-19 18:09:00 Anuj Barroso [facility] BLOOD CULTURE SCREEN 2021-12-19 18:08:00 Anuj Barroso [facility] LACTIC ACID WHOLE BLOOD 2021-12-19 18:08:00 Anuj Barroso [facility] URINALYSIS 2021-12-19 16:16:00 Anuj Barroso [place] [facility] URINE DRUG (IMMUNOASSAY) 2021-12-19 16:16:00 Anuj Barroso [facility] DRUG Medical [facility] SCREEN W/O REFLEX XR HAND 3+ VW RIGHT 2021-12-19 15:56:29 Anuj Barroso [facility] XR SHOULDER 2+ VW RIGHT 2021-12-19 15:56:29 Anuj Barroso [facility] CT CERVICAL SPINE WO 2021-12-19 15:42:28 Anuj Barroso [facility] CONTRAST [facility] HEAD WO CONTRAST 2021-12-19 15:42:28 Anuj Barroso [facility] TROPONIN I 2021-12-19 14:59:00 Anuj Barroso [place] [facility] COMP. METABOLIC PANEL 2021-12-19 14:59:00 Anuj Barroso [facility] ([id number]) [facility] LIPID PANEL ([id number])(TOTAL 2021-12-19 14:59:00 Padma Sullivan [facility] CHOLESTEROL, [facility] TRIGLYCERIDES, HDL) ETHANOL 2021-12-19 14:59:00 Anuj Barroso [facility] CBC WITH DIFF 2021-12-19 14:59:00 Anuj Barroso [facility] GLYCOSYLATED HEMOGLOBIN 2021-12-19 14:59:00 Padma Sullivan [facility] (A1C) [facility] PROTHROMBIN TIME / INR 2021-12-19 14:59:00 Anuj Barroso [facility] ACTIVATED PARTIAL 2021-12-19 14:59:00 Anuj Barroso [facility]MPMt. [facility] N-TERMINAL PRO-BNP 2021-12-19 14:59:00 Anuj Barroso [facility] POCT GLUCOSE (AUTOMATED) 2021-12-19 14:51:00 Anuj Barroso [facility] INSURANCE CORRESPONDENCE 2021-08-22 05:01:00 Doctor Nicole, [facility] EXTERNAL PROVIDER RECORDS 2021-07-05 05:01:00 Doctor Nicole, [facility] Name [facility] HOME HEALTH 485 2021-06-26 05:01:00 Doctor Nicole, [facility] Name [facility] PATIENT QUESTIONNAIRE 2021-05-13 05:01:00 Doctor Nicole [facility] Name [facility] PATIENT QUESTIONNAIRE 2020-02-14 06:01:00 Doctor Nicole [facility] Encounters Start End Encounter Admission Attending Care Care Encounter Source Date/Time Date/Time Type Type Clinicians Facility Department ID 2020-12-17 Emergency [facility] [id number] Univers 02:08:19 [facility] 2020-12-13 Emergency [facility] [id number] Univers 19:20:51 [facility] 2022-12-09 2022-12-09 Outpatient Antonia [facility] [id number] Univers 08:45:00 08:45:00 BRIANNA josias [facility] 2022-10-07 2022-10-07 Outpatient R [facility] [id number] Univers 09:30:00 09:30:00 PHILIP vidal [facility] 2022-08-31 2022-08-31 Outpatient R SISSY [facility] [id number] Univers 10:00:00 10:00:00 CHANDAN SHEEHAN [facility] 2022-08-17 2022-08-17 [facility] [id number] Univers 00:00:00 00:00:00 [facility]uis [facility]ernando [facility] 350.1.13.10 ity of [facility] [place] 4[place] [id number] In dical NAL 059 [facility] 2022-08-14 2022-08-14 Office [facility] 1.2.840.114 [id number] Univers 09:00:00 09:30:00 Visit [facility] 350.1.13.10 it y of [place] 4.2.7.2.686 Brian as RUBEN?BLEA [id number] In dical KNEY 092 [facility] OFFICE [facility] 2022-08-14 2022-08-14 [facility] [id number] Univers 09:00:00 09:00:00 ANTONIA josias [facility] 2022-08-14 2022-08-14 Telephone [facility]AC[facility] [id number] Univers 00:00:00 00:00:00 Philip HEALTH 350.1.13.10 it y of [place] 4.2.7.2.686 Brian as RUBEN?BLEA [id number] In dical KNEY 044 [facility] OFFICE [facility] 2022-08-07 2022-08-07 Refill Chandan Sheehan [facility] 1.2.840.114 [id number] Univers 00:00:00 00:00:00 HEALTH 350.1.13.10 it y of [place] 4.2.7.2.686 Brian as RUBEN?BLEA [id number] In dical KNEY 220 [facility] OFFICE [facility] 2022-08-05 2022-08-05 Delivery Crew Member 2, Adc Lab [facility] 1.2.840.114 [id number] Univers 14:15:00 14:22:34 Visit Alan Beaulieu 350.1.13.10 [place]y of [place] [id number] In dical NAL 353 [facility] 2022-08-05 2022-08-05 [facility] [id number] Univers 14:15:00 14:15:00 ALAN hernandezy o f [facility] 2022-08-05 2022-08-05 Office [facility] 1.2.840.114 [id number] Univers 13:40:00 14:13:02 Visit Alan BERRY 350.1.13.10 it[place] [facility] [place] [id number] [facility] 059 [facility] 2022-07-29 2022-07-29 Outpatient [facility] [id number] Univers 11:00:00 23:59:00 ALAN hernandezy o f [facility] 2022-07-28 2022-07-28 Telephone [facility] [id number] Univers 00:00:00 00:00:00 Susan HEALTH 350.1.13.10 ity [facility] 4.2.7.2.686 Brian as RUBEN?BLEA [id number] [facility] 044 [facility] 2022-07-27 2022-07-27 Telephone [facility] [id number] Univers 00:00:00 00:00:00 Susan HEALTH 350.1.13.10 ity of [place] 4.2.7.2.686 Brian as RUBEN?BLEA [id number] [address] OFFICE [facility] 2022-07-27 2022-07-27 Micha [facility] 1.2.840.114 [id number] Univers 00:00:00 00:00:00 Philip HEALTH 350.1.13.10 it y of [place] 4.2.7.2.686 Brian as RUBEN?BLEA [id number] In dical YOVANY 044 [facility] OFFICE [facility] 2022-07-27 2022-07-27 Telephone [facility] [id number] Univers 00:00:00 00:00:00 [facility] 350.1.13.10 it y of [place] 4.2.7.2.686 Brian as RUBEN?BLEA [id number] In dical YOVANY 044 [facility] OFFICE [facility] 2022-07-22 2022-07-22 Refill [facility] 1.2.840.114 [id number] Univers 00:00:00 00:00:00 [facility] 350.1.13.10 it y of [place] 4.2.7.2.686 Brian as RUBEN?BLEA [id number] In dicjefe PEDROZA 044 [facility] OFFICE [facility] 2022-07-21 2022-07-21 Refill [facility]AC[facility] 1.2.840.114 [id number] Univers 00:00:00 00:00:00 Qiangjun [place] 350.1.13.10 ity of [place] [id number] In dicjefe NAL 059 [facility] 2022-07-19 2022-07-19 Patient Doctor [facility] 1.2.840.114 [id number] Univers 00:00:00 00:00:00 Secure Ms Unassigned, HEALTH 350.1.13.10 ity of [place] 4.2.7.2.686 Brian as RUBEN?BLEA [id number] In dical YOVANY 044 [facility] OFFICE [facility] 2022-07-19 2022-07-19 Refill Bev [facility] 1.2.840.114 [id number] Univers 00:00:00 00:00:00 Cyrus HEALTH 350.1.13.10 it y of [place] 4.2.7.2.686 Brian as RUBEN?BLEA [id number] In dical SUSYEY 220 [facility] OFFICE [facility] 2022-07-19 2022-07-19 Refill Christofer [facility] 1.2.840.114 [id number] Univers 00:00:00 00:00:00 Qiangko [place] 350.1.13.10 ity of [place] [id number] [address] 2022-07-16 2022-07-16 Patient [facility] 1.2.840.114 [id number] Univers 00:00:00 00:00:00 Outreach Kaylee Antonia [facility] 350.1.13.10 ity [facility] 4.2.7.2.686 Brian as RUBEN?BLEA [id number] In velma PEDROZA 198 [facility] OFFICE [facility] 2022-07-15 2022-07-15 Telephone [facility] [id number] Univers 00:00:00 00:00:00 Qiangko [place] 350.1.13.10 ity of [facility] [place] 4[place] [id number] [address] 2022-07-14 2022-07-14 Outpatient [facility] [id number] Univers 08:30:00 08:59:44 [facility] 2022-07-14 2022-07-14 Office [facility] 1.2.840.114 [id number] Univers 08:30:00 08:59:44 Visit [facility] 350.1.13.10 it y [facility] 4[facility]2.7.2.686 Brian as RUBEN?BLEA [phone] In velma PEDROZA 198 [facility] OFFICE [facility] 2022-07-12 2022-07-12 Refill [facility] 1.2.840.114 [id number] Univers 00:00:00 00:00:00 Qiangjun [place] 350.1.13.10 ity of [facility].7.2.[place] [id number] [address] 2022-07-10 2022-07-10 [facility] [id number] Univers 08:30:00 08:30:00 CONNIE [facility] 2022-07-072022-07-07 Office [facility] 1.2.840.114 [id number] Univers 10:00:00 10:30:00 Visit Philip [facility] 350.1.13.10 it y of [place] 4.2.7.2.686 Brian as RUBEN?BLEA [phone] In dical KNEY 044 [facility] OFFICE [facility] 2022-07-07 2022-07-07 Outpatient R [facility] [id number] Univers 10:00:00 10:00:00 PHILIP ity [facility] 2022-07-06 2022-07-06 Refill RASHID Bentley 1.2.840.114 [id number] Univers 00:00:00 00:00:00 Adelaide KWAN 350.1.13.10 ity of [facility] 4.2.7.2.686 Brian as [phone] [address] 2022-07-04 2022-07-04 Patient [facility] 1.2.840.114 [id number] Univers 00:00:00 00:00:00 Secure Msg Alan [place] 350.1.13.10 ity of [place].2.[place] [phone] In velma NAL 059 [facility] 2022-07-03 2022-07-03 Delivery Crew Member 2, Adc Lab [facility] 1.2.840.114 [id number] Univers 16:00:00 16:21:47 Visit Alan Beaulieu 350.1.13.10 ity of [place].7.2.[place] [phone] In dical NAL 353 [facility] 2022-07-03 2022-07-03 [facility] [id number] Univers 15:40:00 15:50:51 ALAN vidal o f [facility] 2022-07-03 2022-07-03 Office [facility] 1.2.840.114 [id number] Univers 15:40:00 15:50:51 Visit Alan BERRY 350.1.13.10 ity of [facility] [place] 4.2.7.2.[place] [phone] In dical NAL 9 [facility] 2022-06-26 2022-06-26 Telephone [facility] 1.2.589.027 [id number] [id number] Univers 00:00:00 00:00:00 Agra [facility] 350.1.13.10 it y of [place] 4.2.7.2.686 Brian as RUBEN?BLEA [id number] [address] OFFICE [facility] 2022-06-26 2022-06-26 Orders Doctor RASHID 1.2.840.114 [id number] Univers 00:00:00 00:00:00 Only Unassigned, AQUILES 350.1.13.10 ity of [place] [facility] 4.2.7.2.686 Brian as [phone] [address] 2022-06-24 2022-06-24 Refill [facility] 1.2.840.114 [id number] Univers 00:00:00 00:00:00 [facility] 350.1.13.10 it y of [place] 4.2.7.2.686 Brian as RUBEN?BLEA [id number] [address] OFFICE [facility] 2022-06-22 2022-06-22 Telephone [facility] 1.2.866.202 [id number] [id number] Univers 00:00:00 00:00:00 [facility] 350.1.13.10 ity of [place] 4.2.7.2.686 Brian as RUBEN?BLEA [phone] [facility] [address] OFFICE [facility] 2022-06-21 2022-06-21 Micha [facility] 1.2.840.114 [id number] Univers 00:00:00 00:00:00 Alan [place] 350.1.13.10 ity of [place].2.[place] [phone] In dical NAL [address] [place] [address] 2022-06-19 2022-06-19 Outpatient [facility] [id number] Univers 13:00:00 13:48:49 ALAN hernandezy o f [facility] 2022-06-19 2022-06-19 Office [facility] 1.2.840.114 [id number] Univers 13:00:00 13:48:49 Visit Alan [facility] 350.1.13.10 ity of [place].2.7.2.[place] AL[place] [phone] In velma [facility] 059 [facility] 2022-06-18 2022-06-18 Telephone [facility] 1.2.992.253 [id number] [id number] Univers 00:00:00 00:00:00 Susan HEALTH 350.1.13.10 ity of [place] 4.2.7.2.686 Brian as RUBEN?BLEA [phone] [address] OFFICE [facility] 2022-06-17 2022-06-17 Patient [facility] 1.2.840.114 [id number] Univers 00:00:00 00:00:00 Secure Msg Philip HEALTH 350.1.13.10 ity of [place] 4.2.7.2.686 Brian as RUBEN?BLEA [phone] [address] OFFICE [facility] 2022-06-17 2022-06-17 Telephone [facility] 1.2.107.411 [id number] [id number] Univers 00:00:00 00:00:00 Philip HEALTH 350.1.13.10 it y of [place] 4.2.7.2.686 Brian as RUBEN?BLEA [id number] [address] OFFICE [facility] 2022-06-16 2022-06-16 Telephone [facility] 1.2.504.345 [id number] Univers 00:00:00 00:00:00 Susan HEALTH 350.1.13.10 ity of [place] 4.2.7.2.686 Brian as RUBEN?BLEA [phone] [address] OFFICE [facility] 2022-06-15 2022-06-15 Orders Doctor RASHID 1.2.840.114 [id number] Univers 00:00:00 00:00:00 Only Unassigned, AQUILES 350.1.13.10 ity of [place] [facility] 4.2.7.2.686 Brian as [phone] [facility] jennifer [address] [place] 2022-06-12 2022-06-12 Outpatient R [facility] [id number] Univers 09:30:00 10:01:28 ANTONIA marcy [facility] 2022-06-12 2022-06-12 Office [facility] 1.2.840.114 [id number] Univers 09:30:00 10:01:28 Visit [facility] 350.1.13.10 it y of [facility] 4.2.7.2.686 Brian as RUBEN?BLEA [phone] In dical YOVANY 092 [facility] OFFICE [facility] 2022-06-12 2022-06-12 Telephone Christofer [facility] 1.2.447.433 [id number] Univers 00:00:00 00:00:00 Qialuis fernando [place] 350.1.13.10 ity of [facility] [place] 4[place]2.7.2.[place] [phone] In dical NAL 059 [facility] 2022-06-11 2022-06-11 Delivery Crew Member Lab, [facility] 1.2.840.1 14 [id number] Univers 09:00:00 09:41:08 Visit [facility] 350.1.13.10 ity of [place] 4.2.7.2.686 Brian as RUBEN?BLEA [phone] In dical YOVANY 353 [facility] OFFICE [facility] 2022-06-11 2022-06-11 Outpatient R SUSAN [facility] [id number] Univers 08:00:00 08:53:17 SUSAN WILEY josias [facility] 2022-06-11 2022-06-11 Office [facility] 1.2.840.114 [id number] Univers 08:00:00 08:53:17 Visit [facility] 350.1.13.10 ity of [place] 4.2.7.2.686 Brian as RUBEN?BLEA [phone] In dical KNEY 044 [facility] OFFICE [facility] 2022-06-11 2022-06-11 Patient Braxton [facility] 1.2.840.114 [id number] Univers 00:00:00 00:00:00 Outreach [facility] 350.1.13.10 i ty of [place] 4.2.7.2.686 Brian as RUBEN?BLEA [phone] In velma KNEY 044 [facility] OFFICE [facility] 2022-06-10 2022-06-10 Outpatient R [facility] [id number] Univers 09:15:00 10:14:40 BRIANNA davidjosias o f [facility] 2022-06-10 2022-06-10 Office Brand, [facility] 1.2.840.114 [id number] Univers 09:15:00 10:14:40 Visit Brianna BERRY 350.1.13.10 ity of [place].2.7.2.686 [place] [facility] [phone] In dicjefe NAL 204 [facility] 2022-06-08 2022-06-08 Outpatient [facility] [id number] Univers 15:40:00 15:40:00 LUANKO marcy o f [facility] 2022-06-08 2022-06-08 Telephone [facility] 1.2.353.798 [id number] Univers 00:00:00 00:00:00 Alan BERRY 350.1.13.10 ity of [place].2.7.2.686 [place] [facility] [phone] In dicjefe NAL 059 [facility] 2022-06-05 2022-06-05 Hospital [facility] 1.2.840.114 [id number] Univers 10:54:49 23:59:00 Encounter Susan BERRY 350.1.13.10 ity of [place] 4.2.7.2.686 [place] [phone] [facility] [address] [place] 2022-06-05 2022-06-05 Outpatient R SUSAN [facility] [id number] Univers 09:47:15 10:53:00 SUSAN WILEY [facility] 2022-06-05 2022-06-05 Delivery Crew Member Lab, Ang - Keith [facility] 1.2.840.1 14 [id number] Univers 09:45:00 10:33:[address] [facility] 350.1.13.10 ity of [place] 4.2.7.2.686 Brian as RUBEN?BLEA [phone] [facility] PEDROZA 353 [facility] OFFICE [facility] 2022-06-05 2022-06-05 Office [facility] 1.2.840.114 [id number] Univers 08:40:00 09:38:18 Visit [facility] 350.1.13.10 ity [facility] 4.2.7.2.686 Brian as RUBEN?BLEA [phone] [facility] 044 [facility] OFFICE [facility] 2022-06-02 2022-06-02 Refill [facility] 1.2.840.114 [id number] Univers 00:00:00 00:00:00 [facility] 350.1.13.10 it y [facility] 4.2.7.2.686 Brian as RUBEN?BLEA [phone] [facility] 044 [facility] OFFICE [facility] 2022-05-25 2022-05-25 Telephone [facility] 1.2.644.017 [id number] [id number] Univers 00:00:00 00:00:00 Agra [facility] 350.1.13.10 it y of [place] 4.2.7.2.686 Brian as RUBEN?BLEA [id number] [facility] 044 [facility] OFFICE [facility] 2022-05-24 2022-05-24 [facility] 1.2.840.114 [id number] Univers 00:00:00 00:00:00 Qialuis fernando [place] 350.1.13.10 ity of [facility] [place] 4.2.7.2.686 [place] [phone] [facility] 059 [facility] 2022-05-20 2022-05-20 Telephone [facility] 1.2.339.553 [id number] [id number] Univers 00:00:00 00:00:00 Philip HEALTH 350.1.13.10 it y of [facility] 4.2.7.2.686 Brian as RUBEN?BLEA [id number] [address] OFFICE [facility] 2022-05-20 2022-05-20 Telephone [place], [facility] 1.2.083.766 [id number] Univers 00:00:00 00:00:00 [facility] 350.1.13.10 it y of [place] 4.2.7.2.686 Brian as RUBEN?BLEA [id number] [facility] 044 [facility] OFFICE [facility] 2022-05-20 2022-05-20 Refill [facility] 1.2.840.114 [id number] Univers 00:00:00 00:00:00 [facility] 350.1.13.10 it y [facility] 4.2.7.2.686 Brian as RUBEN?BLEA [phone] [address] OFFICE [facility] 2022-05-13 2022-05-13 Office [facility] 1.2.840.114 [id number] Univers 15:15:00 15:30:00 Visit [facility] 350.1.13.10 it y of [place] 4.2.7.2.686 Brian as RUBEN?BLEA [phone] [address] OFFICE [facility] 2022-05-13 2022-05-13 Outpatient [facility] [id number] Univers 15:15:00 15:15:00 [facility] 2022-05-12 2022-05-12 Outpatient [facility] [id number] Univers 13:00:00 14:25:34 [facility] 2022-05-12 2022-05-12 Office [facility] 1.2.840.114 [id number] Univers 13:00:00 14:25:34 Visit [facility] 350.1.13.10 it y of [place] 4.2.7.2.686 Brian as RUBEN?BLEA [id number] [facility] 092 [facility] OFFICE [facility] 2022-05-12 2022-05-12 [facility] 1.2.840.114 [id number] Univers 00:00:00 00:00:00 Alan [place] 350.1.13.10 ity of [facility] [place] 4.2.7.2.[place] [phone] Me dical NAL 059 [facility] 2022-05-06 2022-05-06 Telephone [facility] 1.2.863.202 [id number] Univers 00:00:00 00:00:00 [facility] 350.1.13.10 it y of [place] 4.2.7.2.686 Brian as RUBEN?BLEA [phone] In dical KNEY 044 [facility] OFFICE [facility] 2022-05-05 2022-05-05 Outpatient R [facility] [id number] Univers 10:15:00 10:15:00 [facility] 2022-05-04 2022-05-04 Outpatient R [facility] [id number] Univers 15:00:00 15:34:06 [facility] 2022-05-04 2022-05-04 Office [facility] 1.2.840.114 [id number] Univers 15:00:00 15:34:06 Visit Ag[facility] 350.1.13.10 it y [facility] 4.2.7.2.686 Brian as RUBEN?BLEA [id number] In dicjefe PEDROZA 044 [facility] OFFICE [facility] 2022-05-02 2022-05-02 Refill [facility] 1.2.840.114 [id number] Univers 00:00:00 00:00:00 Philip HEALTH 350.1.13.10 it y of [place] 4.2.7.2.686 Brian as RUBEN?BLEA [id number] In dical KNEY [address] [place] MEDICAL OFFICE [facility] 2022-05-01 2022-05-01 [facility] 1.2.395.159 [id number] [id number] Univers 11:21:52 23:59:00 Encounter [facility] HEALTH 350.1.13.10 ity of [place] 4.2.7.2.686 Brian as RUBEN?BLEA [id number] In dical KNEY [address] [place] MEDICAL OFFICE [facility] 2022-05-01 2022-05-01 [facility] 1.2.037.441 [id number] Univers 11:21:51 23:59:00 Encounter Ranwa HEALTH 350.1.13.10 ity of [place] 4.2.7.2.686 Brian as RUBEN?BLEA [id number] [facility] [address] [place] MEDICAL OFFICE [facility] 2022-05-01 2022-05-01 [facility] 1.2.271.832 [id number] Univers 11:21:51 23:59:00 Encounter Ranwa HEALTH 350.1.13.10 ity [facility] 4.2.7.2.686 Brian as RUBEN?BLEA [id number] [facility] [address] [place] MEDICAL OFFICE [facility] 2022-05-01 2022-05-01 Outpatient R [facility] [id number] Univers 11:21:50 23:59:00 RANIA ity [facility] 2022-05-01 2022-05-01 [facility] 1.2.234.335 [id number] Univers 11:21:50 23:59:00 Encounter Ranwa HEALTH 350.1.13.10 ity of [place] 4.2.7.2.686 Brian as RUBEN?BLEA [phone] [facility] 808 [facility] OFFICE [facility] 2022-05-01 2022-05-01 [facility] 1.2.840.114 [id number] Univers 10:40:00 11:31:41 Care Unknown, Attending HEALTH 350.1.13.10 ity [facility] 4.2.7.2.686 Brian as RUBEN?BLEA [id number] [facility] [address] [place] MEDICAL OFFICE [facility] 2022-05-01 2022-05-01 Orders Doctor RASHID 1.2.840.114 [id number] Univers 00:00:00 00:00:00 Only Unassigned, AQUILES 350.1.13.10 ity of [place] [facility] 4.2.7.2.686 Brian as [phone] [address] 2022-05-01 2022-05-01 Telephone [facility] 1.2.043.434 [id number] [id number] Univers 00:00:00 00:00:00 Philip HEALTH 350.1.13.10 it y of [place] 4.2.7.2.686 Brian as RUBEN?BLEA [id number] In velma PEDROZA [address] [place] MEDICAL OFFICE BUILDING 2022-04-27 2022-04-27 Telephone [facility] 1.2.830.643 [id number] [id number] Univers 00:00:00 00:00:00 Philip HEALTH 350.1.13.10 it y of [place] 4.2.7.2.686 Brian as RUBEN?BLEA [phone] In velma PEDROZA [address] [place] MEDICAL OFFICE [facility] 2022-04-27 2022-04-27 Telephone [facility] 1.2.608.886 [id number] [id number] Univers 00:00:00 00:00:00 Philip HEALTH 350.1.13.10 it y of [place] 4.2.7.2.686 Brian as RUBEN?BLEA [phone] In velma PEDROZA 044 [facility] OFFICE [facility] 2022-04-17 2022-04-17 Telephone [facility] 1.2.991.142 [id number] Univers 00:00:00 00:00:00 Philip HEALTH 350.1.13.10 it y of [place] 4.2.7.2.686 Brian as RUBEN?BLEA [id number] In velma PEDROZA [address] [place] MEDICAL OFFICE [facility] 2022-04-15 2022-04-15 Refill [facility] 1.2.840.114 [id number] Univers 00:00:00 00:00:00 Philip HEALTH 350.1.13.10 it y of [place] 4.2.7.2.686 Brian as RUBEN?BLEA [phone] In velma PEDROZA [address] [place] MEDICAL OFFICE [facility] 2022-04-13 2022-04-13 Telephone [facility] 1.2.960.949 [id number] Univers 00:00:00 00:00:00 Philip HEALTH 350.1.13.10 it y of [place] 4.2.7.2.686 Brian as RUBEN?BLEA [id number] In velma PEDROZA [address] [place] MEDICAL OFFICE [facility] 2022-04-06 2022-04-06 Refgriselda Billings [facility] 1.2.840.114 [id number] Univers 00:00:00 00:00:00 Juan HEALTH 350.1.13.10 it y of [place] 4.2.7.2.686 Brian as RUBEN?BLEA [phone] In velma JAIN [address] [place] MEDICAL OFFICE [facility] 2022-04-01 2022-04-01 Outpatient R [facility]AN [facility] [id number] Univers 14:30:00 15:19:43 CHANDAN SHEEHAN ity of [facility] 2022-04-01 2022-04-01 Office Chandan Sheehan [facility] 1.2.840.114 [id number] Univers 14:30:00 15:19:43 Visit HEALTH 350.1.13.10 it y of [place] 4.2.7.2.686 Brian as RUBEN?BLEA [phone] [facility] PEDROZA [address] [place] MEDICAL OFFICE [facility] 2022-04-01 2022-04-01 Delivery Crew Member Lab, [facility] 1.2.840.1 14 [id number] Univers 15:00:00 15:15:00 Visit Chandan Sheehan [facility] 350.1.13.10 it y of [place] 4.2.7.2.686 Brian as RUBEN?BLEA [id number] In velma JAIN [address] [place] MEDICAL OFFICE [facility] 2022-03-28 2022-03-28 Orders Doctor RASHID 1.2.840.114 [id number] Univers 00:00:00 00:00:00 Only Unassigned, AQUILES 350.1.13.10 ity of [place] [facility] 4.2.7.2.686 Brian as [id number] [address] 2022-03-18 2022-03-18 Micha [facility] 1.2.840.114 [id number] Univers 00:00:00 00:00:00 Philip HEALTH 350.1.13.10 it y [facility] 4.2.7.2.686 Brian as RUBEN?BLEA [id number] [facility] [address] [place] MEDICAL OFFICE [facility] 2022-03-08 2022-03-08 Micha Dawson [facility] 1.2.840.114 [id number] Univers 00:00:00 00:00:00 [facility] 350.1.13.10 it y of [place] 4.2.7.2.686 Brian as RUBEN?BLEA [id number] [address] MEDICAL OFFICE BUILDING 2022-03-03 2022-03-03 Refgriselda DawsonAC[facility] 1.2.840.114 [id number] Univers 00:00:00 00:00:00 Philip HEALTH 350.1.13.10 it y of [place] 4.2.7.2.686 Brian as RUBEN?BLEA [phone] [address] MEDICAL OFFICE BUILDING 2022-02-17 2022-02-17 Outpatient R [facility] [id number] Univers 08:30:00 09:20:40 MARCY davidjosias [facility] 2022-02-17 2022-02-17 Office [facility] 1.2.840.114 [id number] Univers 08:30:00 09:20:40 Visit Critical access hospital 350.1.13.10 it y of [place] 4.2.7.2.686 Brian as RUBEN?BLEA [id number] [address] OFFICE [facility] 2022-02-11 2022-02-11 Micha [facility] 1.2.840.114 [id number] Univers 00:00:00 00:00:00 [facility] 350.1.13.10 it y of [place] 4.2.7.2.686 Brian as RUBEN?BLEA [id number] [address] MEDICAL OFFICE [facility] 2022-02-09 2022-02-09 Micha [facility] 1.2.840.114 [id number] Univers 00:00:00 00:00:00 Philip HEALTH 350.1.13.10 it y of [place] 4.2.7.2.686 Brian as RUBEN?BLEA [id number] [address] MEDICAL OFFICE [facility] 2022-01-23 2022-01-23 Outpatient [facility] [id number] Univers 09:00:00 09:49:47 JULIO vidal [facility] 2022-01-23 2022-01-23 Office [facility] 1.2.931.696 [id number] Univers 09:00:00 09:49:47 Visit Julio Infante [facility] 350.1.13.10 it y of [place] 4.2.7.2.686 Brian as RUBEN?BLEA [phone] In dicjefe PEDROZA [address] [place] MEDICAL OFFICE [facility] 2022-01-05 2022-01-05 Outpatient R [facility] [id number] Univers 10:15:00 10:33:23 PHILIP josias [facility] 2022-01-05 2022-01-05 Office [facility] 1.2.840.114 [id number] Univers 10:15:00 10:30:00 Visit [facility] 350.1.13.10 [facility] 4.2.7.2.686 Brian as RUBEN?BLEA [phone] [facility] 0[address] [facility] OFFICE [facility] 2022-01-05 2022-01-05 Orders Doctor RASHID 1.2.840.114 [id number] Univers 00:00:00 00:00:00 Only Unassigned, AQUILES 350.1.13.10 ity of [place] [facility] 4.2.7.2.686 Brian as [phone] [address] 2021-12-31 2021-12-31 Refill [facility] 1.2.840.114 [id number] Univers 00:00:00 00:00:00 [facility] 350.1.13.10 it y of [place] 4.2.7.2.686 Brian as RUBEN?BLEA [phone] [facility] [address] [facility] OFFICE [facility] 2021-12-29 2021-12-29 Outpatient R [facility] [id number] Univers 09:30:00 09:30:00 PHILIP josias [facility] 2021-12-24 2021-12-24 Telephone Mustapha [facility] [id number] [id number] Univers 00:00:00 00:00:00 [facility] 350.1.13.10 it y of [place] 4.2.7.2.686 Brian as RUBEN?BLEA [phone] In dicjefe PEDROZA [address] MEDICAL OFFICE [facility] 2021-12-23 2021-12-23 Transition HECTOR IveyPhilip 1.2.840.114 [id number] Univers 00:00:00 00:00:00 of Care Jaylin CONTEY 350.1.13.10 [place] [phone] [facility] [address] 2021-12-19 2021-12-21 Outpatient X JAZMYN [facility] GARY [id number] Univers 09:53:00 16:19:00 MORALES ity of [facility] 2021-12-19 2021-12-21 Emergency Dharmesh Anuj [facility] 1.2.840. 114 [id number] Univers 09:53:00 16:19:00 Reese Hanson 350.1.13.10 ity of [place] 4.2.7.2.686 [facility] [phone] [facility] [address] 2021-12-18 2021-12-18 Micha [facility] 1.2.840.114 [id number] Univers 00:00:00 00:00:00 [facility] 350.1.13.10 [facility] 4.2.7.2.686 Brian as RUBEN?BLEA [phone] In dicjefe PEDROZA [address] [facility] OFFICE [facility] 2021-12-17 2021-12-17 Outpatient R [facility]AN [facility] [id number] Univers 09:30:00 09:30:00 CHANDAN SHEEHAN itjosias of [facility] 2021-12-10 2021-12-10 [facility] [id number] Univers 11:30:00 12:18:32 BRIANNA vidal o f [facility] 2021-12-10 2021-12-10 Office Brand, [facility] 1.2.840.114 [id number] Univers 11:30:00 12:18:32 Visit Brianna BERRY 350.1.13.10 ity of [facility] [place].2.[place] [phone] In dicjefe [facility] [address] [facility] 2021-09-27 2021-09-27 Refill [facility] 1.2.840.114 [id number] Univers 00:00:00 00:00:00 Philip [facility]ALTH 350.1.13.10 it y of [place] 4.2.7.2.686 Brian as RUBEN?BLEA [phone] In velma PEDROZA [address] [place] [address] OFFICE [facility] 2021-09-08 2021-09-08 Letter [facility] 1.2.840.114 [id number] Univers 00:00:00 00:00:00 (Out) Philip HEALTH 350.1.13.10 it y of [place] 4.2.7.2.686 Brian as RUBEN?BLEA [phone] In velma PEDROZA [address] [place] [address] 2021-08-25 2021-08-25 Telephone [facility] 1.2.405.705 [id number] Univers 00:00:00 00:00:00 Philip HEALTH 350.1.13.10 it y of [place] 4.2.7.2.686 Brian as RUBEN?BLEA [phone] In velma PEDROZA [address] [place] [address] OFFICE [facility] 2021-08-25 2021-08-25 Letter [facility] 1.2.840.114 [id number] Univers 00:00:00 00:00:00 (Out) Philip HEALTH 350.1.13.10 it y of [place] 4.2.7.2.686 Brian as RUBEN?BLEA [phone] In velma PEDROZA [address] [place] [address] 2021-08-25 2021-08-25 Letter [facility] 1.2.840.114 [id number] Univers 00:00:00 00:00:00 (Out) Philip HEALTH 350.1.13.10 it y of [place] 4.2.7.2.686 Brian as RUBEN?BLEA [phone] In velma PEDROZA [address] [place] [address] 2021-08-22 2021-08-22 Svitlana PatiñoAC[facility] 1.2.029.902 [id number] Univers 00:00:00 00:00:00 Rita HEALTH 350.1.13.10 it y of [place] 4.2.7.2.686 Brian as RUBEN?BLEA [phone] [address] MEDICAL OFFICE [facility] 2021-08-22 2021-08-22 Orders Doctor RASHID 1.2.840.114 [id number] Univers 00:00:00 00:00:00 Only Unassigned, AQUILES 350.1.13.10 ity of [place] [facility] 4.2.7.2.686 Brian as [phone] [address] 2021-08-20 2021-08-20 Refgriselda DawsonAC[facility] 1.2.840.114 [id number] Univers 00:00:00 00:00:00 Philip HEALTH 350.1.13.10 it y [facility] 4.2.7.2.686 Brian as RUBEN?BLEA [phone] [address] OFFICE [facility] 2021-08-20 2021-08-20 Micha PatiñoAC[facility] 1.2.840.114 [id number] Univers 00:00:00 00:00:00 Rita HEALTH 350.1.13.10 it y of [place] 4.2.7.2.686 Brian as RUBEN?BLEA [phone] [address] OFFICE [facility] 2021-08-20 2021-08-20 Refgriselda BeaulieuACOMA[facility] 1.2.840.114 [id number] Univers 00:00:00 00:00:00 Alan [place] 350.1.13.10 ity of [place].2.7.2.686 [place] [phone] In dicmo NAL 059 [facility] 2021-08-14 2021-08-14 Outpatient R [facility] [id number] Univers 10:45:00 10:45:00 SKINNY ity of [facility] 2021-07-17 2021-07-17 Micha PatiñoAC[facility] 1.2.840.114 [id number] Univers 00:00:00 00:00:00 Rita HEALTH 350.1.13.10 it y [facility] 4.2.7.2.686 Brian as RUBEN?BLEA [phone] [address] MEDICAL OFFICE [facility] 2021-07-15 2021-07-15 Micha Dawson[facility] 1.2.840.114 [id number] Univers 00:00:00 00:00:00 Philip HEALTH 350.1.13.10 it y [facility] 4.2.7.2.686 Brian as RUBEN?BLEA [phone] [facility] YOVANY [address] [place] [address] OFFICE [facility] 2021-07-10 2021-07-10 Telephone Rossana [facility] 1.2.297.463 [id number] Univers 00:00:00 00:00:00 Susan SPECIALTY 350.1.13.10 ity of [facility] 4.2.7.2.686 [place] C[place] AT [phone] In velma ESTRELLA [address] [place] [address] 2021-07-09 2021-07-09 Outpatient R SUSAN [facility] [id number] Univers 13:30:00 13:30:00 SUSAN CUETO ity [facility] 2021-07-07 2021-07-07 Micha Pati[facility]AC[facility] 1.2.840.114 [id number] Univers 00:00:00 00:00:00 Rita HEALTH 350.1.13.10 it y of [place] 4.2.7.2.686 Brian as RUBEN?BLEA [phone] [address] MEDICAL OFFICE [facility] 2021-07-05 2021-07-05 Orders Doctor RASHID 1.2.840.114 [id number] Univers 00:00:00 00:00:00 Only Unassigned, AQUILES 350.1.13.10 ity of [place] [facility] 4.2.7.2.686 Brian as [phone] [address] 2021-07-04 2021-07-04 Telephone [facility]AC[facility] 1.2.034.855 [id number] Univers 00:00:00 00:00:00 Philip HEALTH 350.1.13.10 it y of [place] 4.2.7.2.686 Brian as RUBEN?BLEA [phone] [facility] YOVANY [address] [place] [address] MEDICAL OFFICE [facility] 2021-07-03 2021-07-03 Micha [facility] 1.2.840.114 [id number] Univers 00:00:00 00:00:00 Philip HEALTH 350.1.13.10 it y of [place] 4.2.7.2.686 Brian as RUBEN?BLEA [phone] [address] MEDICAL OFFICE [facility] 2021-07-01 2021-07-01 Telephone [facility] 1.2.166.413 [id number] Univers 00:00:00 00:00:00 Philip HEALTH 350.1.13.10 it y of [place] 4.2.7.2.686 Brian as RUBEN?BLEA [phone] [address] OFFICE [facility] 2021-06-30 2021-06-30 [facility] 1.2.840.114 [id number] Univers 00:00:00 00:00:00 Philip HEALTH 350.1.13.10 it y of [place] 4.2.7.2.686 Brian as RUBEN?BLEA [phone] [address] OFFICE [facility] 2021-06-27 2021-06-27 Telephone [facility] 1.2.398.005 [id number] Univers 00:00:00 00:00:00 Philip HEALTH 350.1.13.10 it y of [place] 4.2.7.2.686 Brian as RUBEN?BLEA [phone] [address] OFFICE [facility] 2021-06-26 2021-06-26 Office [facility] 1.2.840.114 [id number] Univers 13:00:00 13:30:00 Visit Philip HEALTH 350.1.13.10 it y of [place] 4.2.7.2.686 Brian as RUBEN?BLEA [phone] [address] OFFICE [facility] 2021-06-26 2021-06-26 Outpatient Antonia [facility] [id number] Univers 13:00:00 13:00:00 PHILIP vidal [facility] 2021-06-26 2021-06-26 Outpatient Antonia [facility] [id number] Univers 13:00:00 13:00:00 PHILIP [facility] 2021-06-26 2021-06-26 Orders Doctor RASHID 1.2.840.114 [id number] Univers 00:00:00 00:00:00 Only Unassigned, AQUILES 350.1.13.10 ity of [facility] 4.2.7.2.686 Brian as [phone] [address] 2021-06-16 2021-06-16 Outpatient R [facility] [id number] Univers 13:30:00 14:27:56 [facility] 2021-06-16 2021-06-16 Office [facility] 1.2.840.114 [id number] Univers 13:30:00 14:00:00 Visit [facility] 350.1.13.10 it y of [place] 4.2.7.2.686 Brian as RUBEN?BLEA [phone] [facility] [address] [facility] OFFICE [facility] 2021-06-16 2021-06-16 Outpatient R [facility] [id number] Univers 13:30:00 13:30:00 [facility] 2021-06-16 2021-06-16 Outpatient R [facility] [id number] Univers 13:30:00 13:30:00 [facility] 2021-06-16 2021-06-16 Telephone [facility]oon[facility] 1.2.120.901 [id number] Univers 00:00:00 00:00:00 [facility] 350.1.13.10 i ty of [place]2.7.2.[place] [phone] In velma HELM [address] [place] [address] 2021-06-16 2021-06-16 Telephone [facility] 1.2.946.544 [id number] Univers 00:00:00 00:00:00 Rita HEALTH 350.1.13.10 it y [facility] 4.2.7.2.686 Brian as RUBEN?BLEA [phone] In nijefe SUSY[address] OFFICE [facility] 2021-06-16 2021-06-16 Patient [facility] 1.2.840.114 [id number] Univers 00:00:00 00:00:00 Secure Msg Philip HEALTH 350.1.13.10 ity [facility] 4.2.7.2.686 Brian as RUBEN?BLEA [phone] In velma PEDROZA 044 [facility] 2021-06-11 2021-06-11 Out[facility] [id number] Univers 10:00:00 10:45:21 BRIANNA vidal o f [facility] 2021-06-11 2021-06-11 Office Brand, [facility] 1.2.840.114 [id number] Univers 10:00:00 10:45:21 Visit Brianna [facility] 350.1.13.10 ity of [place] 4.2.7.2.686 [place] [phone] In dical NAL 204 [facility] 2021-06-08 2021-06-08 Refgriselda PabloACOMA[facility] 1.2.840.114 [id number] Univers 00:00:00 00:00:00 Cyrus HEALTH 350.1.13.10 it y of [place] 4.2.7.2.686 Brian as RUBEN?BLEA [phone] In dicjefe PEDROZA 220 [facility] 2021-05-26 2021-05-26 Micha PatiñoACOMA[facility] 1.2.840.114 [id number] Univers 00:00:00 00:00:00 Rita HEALTH 350.1.13.10 it y [facility] 4.2.7.2.686 Brian as RUBEN?BLEA [phone] In dicjefe PEDROZA 044 [facility] OFFICE [facility] 2021-05-21 2021-05-21 Telephone ChristoferAC[facility] 1.2.185.289 [id number] Univers 00:00:00 00:00:00 Alan [facility] 350.1.13.10 ity of [facility] 4.2.7.2.686 [place] [phone] In dical NAL 059 [facility] 2021-05-19 2021-05-19 Outpatient R [facility] [id number] Univers 11:00:00 11:00:00 ALAN marcy bolanos edmond [facility] 2021-05-19 2021-05-19 Outpatient R [facility] [id number] Univers 09:42:00 09:42:00 ALAN marcy bolanos edmond [facility] 2021-05-13 2021-05-13 Orders Doctor RASHID 1.2.840.114 [id number] Univers 00:00:00 00:00:00 Only Unassigned, AQUILES 350.1.13.10 ity of [place] [facility] 4.2.7.2.686 Brian as [phone] [address] 2021-05-09 2021-05-09 Outpatient R [facility] [id number] Univers 10:40:00 11:09:07 ALAN marcy bolanos edmond [facility] 2021-05-09 2021-05-09 Office [facility] 1.2.840.114 [id number] Univers 10:40:00 11:09:07 Visit Alan KRISTI 350.1.13.10 ity of [place] 4.2.7.2.686 [place] [phone] [place] 832799 [facility] 2021-05-01 2021-05-01 Orders Doctor RASHID Hunter.2.840.114 [id number] Univers 00:00:00 00:00:00 Only Unassigned, AQUILES 350.1.13.10 ity of [place] [facility] 4.2.7.2.686 Brian as [phone] [address] 2021-04-24 2021-04-24 Outpatient R SAMIR[facility] [id number] Univers 08:00:00 08:00:00 PHILIP vidal [facility] 2021-04-18 2021-04-18 Orders Doctor RASHID 1.2.840.114 [id number] Univers 00:00:00 00:00:00 Only Unassigned, AQUILES 350.1.13.10 ity of [place] [facility]OSPITAL 4.2.7.2.686 Brian as [phone] [address] 2021-04-10 2021-04-10 Ward Moh[facility]AC[facility] 1.2.840.114 [id number] Univers 00:00:00 00:00:00 Management Dora Danielson KRISTI 350.1.13.10 ity of [facility] [place] 4.2.7.2.[place] [phone] [address] 2021-03-30 2021-03-30 Refill [facility] 1.2.840.114 [id number] Univers 00:00:00 00:00:00 Philip HEALTH 350.1.13.10 it y of [facility] 4.2.7.2.686 Brian as RUBEN?BLEA [phone] [address] OFFICE [facility] 2021-03-23 2021-03-23 [facility] 1.2.840.114 [id number] Univers 00:00:00 00:00:00 Skinny [place] 350.1.13.10 i ty of [place] 4.2.7.2.686 [place] [phone] [address] 2021-03-06 2021-03-06 Refill [facility] 1.2.840.114 [id number] Univers 00:00:00 00:00:00 Agra HEALTH 350.1.13.10 it y of [place] 4.2.7.2.686 Brian as RUBEN?BLEA [phone] [address] OFFICE [facility] 2021-02-28 2021-02-28 [facility] 1.2.840.114 [id number] Univers 00:00:00 00:00:00 Skinny [place] 350.1.13.10 i ty of [place] 4.2.7.2.686 [place] [phone] [address] 2021-02-27 2021-02-27 Outpatient R SAMIR [facility] [id number] Univers 12:45:00 13:07:08 PHILIP vidal [facility] 2021-02-27 2021-02-27 Office [facility] 1.2.840.114 [id number] Univers 12:45:00 13:00:00 Visit [facility] 350.1.13.10 it y of [facility] 4.2.7.2.686 Brian as RUBEN?BLEA [phone] [facility] 044 [facility] OFFICE [facility] 2021-02-27 2021-02-27 Outpatient Antonia [facility] [id number] Univers 12:45:00 12:45:00 PHILIP ity [facility] 2021-02-24 2021-02-24 Outpatient [facility] [id number] Univers 09:45:00 09:45:00 [facility] 2021-02-20 2021-02-20 [facility] 1.2.840.114 [id number] Univers 00:00:00 00:00:00 Michael Bry [facility] 350.1.13.10 ity of [place] 4.2.7.2.686 Brian as RUBEN?BLEA [phone] [facility] 092 [facility] 2021-02-17 2021-02-17 Outpatient MICHAEL [facility] [id number] Univers 10:40:49 23:59:00 MICHAEL CASILLAS [facility] 2021-02-17 2021-02-17 [facility] 1.2.121.788 [id number] Univers 10:40:49 23:59:00 Encounter Michael BERRY 350.1.13.10 ity of [place] 4.2.7.2.686 [place] [facility] [phone] [facility] [address] [place] 2021-02-10 2021-02-10 Refill [facility] 1.2.840.114 [id number] Univers 00:00:00 00:00:00 [facility] 350.1.13.10 it y of [place] 4.2.7.2.686 Brian as RUBEN?BLEA [phone] [facility] 044 [facility] OFFICE [facility] 2021-01-28 2021-01-28 Office [facility] 1.2.840.114 [id number] Univers 10:00:00 10:47:59 Visit [facility] 350.1.13.10 ity of [facility] 4.2.7.2.686 Brian as RUBEN?BLEA [id number] In dicjefe PEDROZA 092 [facility] OFFICE [facility] 2021-01-28 2021-01-28 Outpatient MICHAEL [facility] [id number] Univers 10:00:00 10:47:59 MICHAEL CASILLAS davidjosias [facility] 2021-01-28 2021-01-28 Outpatient MICHAEL [facility] [id number] Univers 10:00:00 10:00:00 MICHAEL CASILLAS josias [facility] 2021-01-28 2021-01-28 Orders Doctor RASHID 1.2.840.114 [id number] Univers 00:00:00 00:00:00 Only Unassigned, AQUILES 350.1.13.10 ity of [place] [facility] 4.2.7.2.686 Brian as [phone] [address] 2021-01-23 2021-01-23 Telephone [facility] 1.2.221.932 [id number] Univers 00:00:00 00:00:00 Dora NGUYỄNTON 350.1.13.10 ity of [place] 4.2.7.2.686 [place] [phone] In dical NAL 204 [facility] 2021-01-21 2021-01-21 Telephone [facility] 1.2.840.114 [id number] Univers 00:00:00 00:00:00 Cyrus HEALTH 350.1.13.10 it y of [place] 4.2.7.2.686 Brian as RUBEN?BLEA [phone] In dical KNEY [address] MEDICAL OFFICE [facility] 2021-01-17 2021-01-17 Refill [facility] 1.2.840.114 [id number] Univers 00:00:00 00:00:00 Philip HEALTH 350.1.13.10 it y of [place] 4.2.7.2.686 Brian as RUBEN?BLEA [phone] In dical SUSYEY 044 [facility] OFFICE [facility] 2021-01-13 2021-01-13 Office [facility] 1.2.840.114 [id number] Univers 09:54:13 10:09:13 Visit [facility] 350.1.13.10 it y of [facility] 4.2.7.2.686 Brian as RUBEN?BLEA [phone] [address] OFFICE [facility] 2021-01-13 2021-01-13 Outpatient R SAMIR [facility] [id number] Univers 09:45:00 09:45:00 PHILIP vidal [facility] 2021-01-13 2021-01-13 [facility] [id number] Univers 09:45:00 09:45:00 PHILIP josias [facility] 2021-01-02 2021-01-02 Telephone [facility] 1.2.977.458 [id number] Univers 00:00:00 00:00:00 [facility] 350.1.13.10 it y of [place] 4.2.7.2.686 Brian as RUBEN?BLEA [phone] [address] 2020-12-30 2020-12-30 [facility] [id number] Univers 15:30:00 15:36:48 DORA [facility] 2020-12-30 2020-12-30 Outpatient [facility] [id number] Univers 15:30:00 15:36:48 DORA [facility] 2020-12-30 2020-12-30 Office [facility] 1.2.840.114 [id number] Univers 15:00:54 15:36:48 Visit Dora BERRY 350.1.13.10 ity of [place] 4.2.7.2.686 [place] [phone] [facility] 204 [facility] 2020-12-30 2020-12-30 Outpatient [facility] [id number] Univers 15:30:00 15:30:00 DORA [facility] 2020-12-25 2020-12-25 [facility]patient [facility] [id number] Univers 10:00:00 10:58:06 PHILIP vidal [facility] 2020-12-25 2020-12-25 Office [facility] 1.2.840.114 [id number] Univers 10:16:30 10:31:30 Visit [facility] 350.1.13.10 it y of [place] 4.2.7.2.686 Brian as RUBEN?BLEA [phone] In velma JAIN[address] OFFICE [facility] 2020-12-25 2020-12-25 [facility] [id number] Univers 10:00:00 10:00:00 PHILIP josias [facility] 2020-12-25 2020-12-25 Orders Doctor MIKE 1.2.840.114 [id number] Univers 00:00:00 00:00:00 Only Unassigned, AQUILES 350.1.13.10 ity of [place] [facility] 4.2.7.2.686 Brian as [phone] [address] 2020-12-18 2020-12-18 Outpatient [facility] [id number] Univers 10:30:00 10:30:00 DORA vidal [facility] 2020-12-16 2020-12-16 Office [facility] 1.2.840.114 [id number] Univers 14:08:52 14:38:52 Visit [facility] 350.1.13.10 it y of [place] 4.2.7.2.686 Brian as RUBEN?BLEA [phone] In nijefe [facility] [address] [facility] OFFICE [facility] 2020-12-16 2020-12-16 Outpatient R BEV [facility] [id number] Univers 14:30:00 14:30:00 CYRUS josias [facility] 2020-12-16 2020-12-16 Outpatient R BEV [facility] [id number] Univers 14:30:00 14:30:00 CYRUS [facility] 2020-11-19 2020-11-19 Refill [facility] 1.2.840.114 [id number] Univers 00:00:00 00:00:00 Cyrus Kristi 350.1.13.10 i ty of [place] 4[place]2.7.2.[place] [phone] In dical nal [address] [facility] 2020-11-14 2020-11-14 Transition Bakari Ivey 1.2.840.114 [id number] Univers 00:00:00 00:00:00 of Care Jaylin Prince 350.1.13.10 it y of [employer] 4.2.7.2.686 [place] [phone] [facility] [address] 2020-11-12 2020-11-13 Emergency Kellie Evans [facility] 1.2.840. 114 [id number] Univers 17:49:00 17:20:00 Reese Hanson 350.1.13.10 ity of [place] 4.2.7.2.686 [facility] [phone] [facility] [address] [place] 2020-11-13 2020-11-13 Telephone Christofer [facility] 1.2.919.313 [id number] Univers 00:00:00 00:00:00 Alan Berry 350.1.13.10 ity of [place] 4[place]2.7.2.[place] [phone] [facility] 059 [facility] 2020-11-12 2020-11-12 Telephone Bev NCCHARLES 1.2.840.114 [id number] Univers 00:00:00 00:00:00 350.1.13.10 it y of [place] 4.2.7.2.686 Brian as Ruben?Blea [phone] [facility] [address] [place] [facility] 2020-08-19 2020-08-19 Telephone Christofer [facility] 1.2.190.025 [id number] Univers 00:00:00 00:00:00 Luanko Kristi 350.1.13.10 ity of [place] 4.2.7.2.686 [place] [phone] [facility] nal 059 [facility] 2020-08-19 2020-08-19 Orders Doctor MIKE 1.2.840.114 [id number] Univers 00:00:00 00:00:00 Only Unassigned, AQUILES 350.1.13.10 ity of [facility] 4.2.7.2.686 Brian as [phone] [facility] [address] [place] 2020-08-07 2020-08-07 Office Christofer, [facility] 1.2.840.114 [id number] Univers 09:32:57 10:27:50 Visit Alan Berry 350.1.13.10 ity of [place] 4.2.7.2.[place] [phone] In dical nal 059 [facility] 2020-08-07 2020-08-07 [facility] [id number] Univers 09:40:00 09:40:00 ALAN vidal o f [facility] 2020-06-26 2020-06-26 Outpatient [facility] [id number] Univers 10:40:00 10:40:00 ALAN vidal o f [facility] 2020-06-12 2020-06-12 Office [facility] 1.2.840.114 [id number] Univers 10:20:19 10:45:04 Visit Dora Berry 350.1.13.10 ity of [place] 4.2.7.2.686 [place] [phone] In dical nal 204 [facility] 2020-06-12 2020-06-12 Outpatient [facility] [id number] Univers 10:30:00 10:30:00 DORA vidal of [facility] 2020-05-27 2020-05-27 [facility] 1.2.840.114 [id number] Univers 00:00:00 00:00:00 [facility] 350.1.13.10 it y of [place] 4.2.7.2.686 [place] as Professio [phone] In dical nal [address] [facility] 2020-05-17 2020-05-17 Patient Lennyrona NCCHARLES 1.2.840.114 [id number] Univers 00:00:00 00:00:00 Secure Msg Cyrus Berry 350.1.13.10 [place] [phone] In dical [facility] 220 [facility] 2020-05-13 2020-05-13 Delivery Crew Member 2, Adc Lab [facility] 1.2.840.114 [id number] Univers 14:16:02 14:31:02 Visit Cyrus Pablo 350.1.13.10 [place] [phone] [facility] 353 [facility] 2020-05-13 2020-05-13 Office Bev [facility] 1.2.840.114 [id number] Univers 13:18:45 14:11:09 Visit Cyrus Berry 350.1.13.10 i [place] [phone] [facility] 220 [facility] 2020-05-13 2020-05-13 Outpatient R [facility] [id number] Univers 13:30:00 13:30:00 CYRUS vidal [facility] 2020-04-24 2020-04-24 Orders Doctor RASHID 1.2.840.114 [id number] Univers 00:00:00 00:00:00 Only Unassigned, AQUILES 350.1.13.10 ity of [place] [facility] 4.2.7.2.686 Brian as [phone] [address] 2020-04-22 2020-04-22 Office Kimberlee [facility] 1.2.840.114 [id number] Univers 12:39:04 13:56:26 Visit Dora Berry 350.1.13.10 [place] [phone] [facility] 204 [facility] 2020-04-22 2020-04-22 [facility] [id number] Univers 13:00:00 13:00:00 DORA vidal [facility] 2020-04-10 2020-04-10 Micha Dawson [facility] 1.2.840.114 [id number] Univers 00:00:00 00:00:00 [facility] 350.1.13.10 it y of [place] 4.2.7.2.686 [place] as Professio [phone] [facility] [address] [facility] 2020-04-10 2020-04-10 Orders Doctor RASHID 1.2.840.114 [id number] Univers 00:00:00 00:00:00 Only Unassigned, AQUILES 350.1.13.10 [facility] 4.2.7.2.686 Brian as [phone] [address] 2020-04-08 2020-04-08 Telephone [facility] [id number] [id number] Univers 00:00:00 00:00:00 Kalin[place]ko [place] 350.1.13.10 it[place] [phone] [facility] 059 [facility] 2020-04-08 2020-04-08 [facility] [id number] Univers 00:00:00 00:00:00 Luanko [place] 350.1.13.10 [place] [phone] [facility] 059 [facility] 2020-04-01 2020-04-01 Outpatient [facility] [id number] Univers 09:30:00 09:30:00 SKINNY ity of [facility] 2020-03-27 2020-03-27 Office [facility] 1.2.840.114 [id number] Univers 13:05:40 13:48:46 Visit Alan Berry 350.1.13.10 it[place] [phone] [address] 2020-03-27 2020-03-27 [facility] [id number] Univers 13:20:00 13:20:00 ALAN hernandezy o f [facility] 2020-03-19 2020-03-19 [facility] [id number] Univers 09:40:00 09:40:00 ALAN itjosias o f [facility] 2020-03-16 2020-03-16 Refill Samir [facility] 1.2.840.114 [id number] Univers 00:00:00 00:00:00 [facility] 350.1.13.10 it y of [place] 4.2.7.2.686 Brian as Professio [phone] [facility] 044 [facility] 2020-02-28 2020-02-28 Telephone [facility] 1.2.076.356 [id number] Univers 00:00:00 00:00:00 Dora BERRY 350.1.13.10 ity of [place] [phone] [facility] 204 [facility] 2020-02-26 2020-02-26 Outpatient R [facility] [id number] Univers 13:30:00 13:30:00 CYRUS [facility] 2020-02-23 2020-02-23 Patient [facility] 1.2.840.114 [id number] Univers 00:00:00 00:00:00 Outreach Ambrocio HERRMANN 350.1.13.10 i ty of [facility] [place] [phone] [address] 2020-02-22 2020-02-22 Office [facility] 1.2.840.114 [id number] Univers 14:35:25 16:11:21 Visit Rita [facility] 350.1.13.10 it y of [place] 4.2.7.2.686 [place] as Professio [phone] [facility] 044 [facility] 2020-02-22 2020-02-22 Out[facility] [id number] Univers 15:00:00 15:00:00 [facility] 2020-02-21 2020-02-21 Refill [facility] 1.2.840.114 [id number] Univers 00:00:00 00:00:00 Skinny Berry 350.1.13.10 i ty of [place] [phone] In dical nal 204 [facility] 2020-02-20 2020-02-20 Refill [facility] 1.2.840.114 [id number] Univers 00:00:00 00:00:00 [facility] 350.1.13.10 it y of [place] 4.2.7.2.686 [place] as Professio [phone] In dical nal 0[address] [place] Office [facility] 2020-02-14 2020-02-14 Delivery Crew Member 2, Adc Lab [facility] 1.2.840.114 [id number] Univers 14:28:03 14:43:03 Visit Alan Beaulieu 350.1.13.10 ity of [place] [phone] In dical nal 353 [facility] 2020-02-14 2020-02-14 Office [facility] 1.2.840.114 [id number] Univers 13:38:40 13:58:40 Visit Alan Berry 350.1.13.10 ity of [place] [phone] In dical nal 059 [facility] 2020-02-14 2020-02-14 Out[facility] [id number] Univers 13:40:00 13:40:00 ALAN vidal o f [facility] 2020-02-14 2020-02-14 Orders Doctor RASHID 1.2.840.114 [id number] Univers 00:00:00 00:00:00 Only Unassigned, AQUILES 350.1.13.10 ity of [place] [facility] 4.2.7.2.686 Brian as [phone] [address] 2020-02-07 2020-02-07 Refill [facility] 1.2.840.114 [id number] Univers 00:00:00 00:00:00 Alan Berry 350.1.13.10 ity of [place] [phone] In dical nal 059 [facility] 2020-02-01 2020-02-01 Refill [facility] 1.2.840.114 [id number] Univers 00:00:00 00:00:00 Alan [place] 350.1.13.10 ity of [place] [phone] In dical nal 059 [facility] 2020-01-30 2020-01-30 Outpatient [facility] [id number] Univers 13:20:00 13:20:00 ALAN hernandezy o f [facility] 2020-01-24 2020-01-24 Refill [facility] 1.2.840.114 [id number] Univers 00:00:00 00:00:00 [facility] 350.1.13.10 it y of [place] 4.2.7.2.686 Brian as Professio [phone] In dical nal 044 [place] Office [facility] 2020-01-17 2020-01-17 Orders Doctor RASHID 1.2.840.114 [id number] Univers 00:00:00 00:00:00 Only Unassigned, AQUILES 350.1.13.10 ity of [place] [facility] 4.2.7.2.686 Brian as [phone] [address] 2020-01-09 2020-01-09 Refill [facility] 1.2.840.114 [id number] Univers 00:00:00 00:00:00 Alan Berry 350.1.13.10 ity of [place] [phone] In dical nal 059 [facility] 2020-01-08 2020-01-08 Office [facility] 1.2.840.114 [id number] Univers 14:35:37 15:22:08 Visit Dora Danielson Kristi 350.1.13.10 ity of [place] [phone] In dical nal 204 [facility] 2020-01-08 2020-01-08 Office [facility] 1.2.840.114 [id number] Univers 13:22:21 14:29:18 Visit Alan Berry 350.1.13.10 ity of [place] [phone] In dical nal 9 [facility] 2020-01-08 2020-01-08 Outpatient R [facility] [id number] Univers 13:40:00 13:40:00 ALAN ity o f [facility] 2020-01-08 2020-01-08 Orders Doctor RASHID 1.2.840.114 [id number] Univers 00:00:00 00:00:00 Only Unassigned, AQUILES 350.1.13.10 ity of [place] [facility] 4.2.7.2.686 Brian as [phone] [address] 2019-12-29 2019-12-29 [facility] 1.2.840.114 [id number] Univers 00:00:00 00:00:00 [facility] 350.1.13.10 it y of [place] 4.2.7.2.686 Brian as Professio [phone] In dical [facility] 044 [facility] 2019-12-19 2019-12-19 Telephone [facility] 1.2.196.930 [id number] Univers 00:00:00 00:00:00 [facility] 350.1.13.10 i [place] [phone] [address] Office [facility] 2019-12-15 2019-12-15 Delivery Crew Member Pc, [facility] Vascular Room [address] [place] [address] 1.2.840.114 [id number] Univers 09:40:58 11:16:28 Visit Demian Theodore 350.1.13. 10 ity of [place] [phone] In dical nal [address] [place] [address] 2019-12-15 2019-12-15 Appointmen Pc, [facility] Room 1 [facility] 1.2.840.114 [id number] Univers 09:42:09 10:42:09 t Demian Theodore 350.1.13. 10 ity of [place] [phone] In dical nal 059 [facility] 2019-12-15 2019-12-15 Laboratory Pc, Adc Echo Room 1 - [facility] 1 .2.840.114 [id number] Univers 08:53:31 09:53:31 Only Demian Theodore 350.1.13. 10 ity of [place] [phone] In dical nal 059 [facility] 2019-12-15 2019-12-15 Outpatient [facility] [id number] Univers 09:00:00 09:00:00 ity of [facility] 2019-12-07 2019-12-07 Orders Doctor RASHID 1.2.840.114 [id number] Univers 00:00:00 00:00:00 Only Unassigned, AQUILES 350.1.13.10 [facility] 4.2.7.2.686 Brian as [phone] [address] 2019-12-06 2019-12-06 Delivery Crew Member 2, Adc Lab [facility] 1.2.840.114 [id number] Univers 15:04:38 15:19:38 Visit Alan Beaulieu 350.1.13.10 ity of [place] [phone] In dicjefe ramya 353 [facility] 2019-12-06 2019-12-06 Office [facility] 1.2.840.114 [id number] Univers 13:55:15 14:56:18 Visit Alan Berry 350.1.13.10 ity of [place] [phone] In dical nal 059 [facility] 2019-12-06 2019-12-06 Outpatient R [facility] [id number] Univers 13:40:00 13:40:00 ALAN vidal o f [facility] 2019-12-04 2019-12-04 Office Chacorta [facility] 1.2.840.114 [id number] Univers 09:57:56 10:47:23 Visit Skinny Berry 350.1.13.10 i ty of [place] [phone] In dical nal 204 [facility] 2019-12-04 2019-12-04 Outpatient R [facility] [id number] Univers 10:00:00 10:00:00 SKINNY ity [facility] 2019-12-04 2019-12-04 [facility] 1.2.840.114 [id number] Univers 00:00:00 00:00:00 [facility] 350.1.13.10 it y of [place] 4.2.7.2.686 Brian as Professio [phone] In dical nal 044 [facility] 2019-11-15 2019-11-15 Abiquiu [facility] 1.2.173.474 [id number] Univers 00:00:00 00:00:00 [facility] 350.1.13.10 it y of [place] 4.2.7.2.686 Brian as Professio [phone] In dical nal 044 [place] Office [facility] 2019-11-09 2019-11-10 Office [facility] 1.2.840.114 [id number] [facility] 12:49:44 09:31:32 Visit Rita [facility] 350.1.13.10 it y of [place] 4.2.7.2.686 Brian as Professio [phone] In dical nal 044 [place] Office [facility] 2019-11-10 2019-11-10 [facility] 1.2.840.114 [id number] Univers 00:00:00 00:00:00 [facility] 350.1.13.10 it y of [place] 4.2.7.2.686 Brian as Professio [phone] In dical nal 044 [place] Office [facility] 2019-11-09 2019-11-09 Emergency [facility] 1.2.840.114 [id number] Univers 17:57:00 23:23:00 Shinta [place] 350.1.13.10 i ty of [place].2.[place] [phone] [place] 258514 [place] 2019-11-09 2019-11-09 Emergency X SHAKIR, [facility] ERT [id number] Univers 17:57:00 23:23:00 GORGE vidal [facility] 2019-11-09 2019-11-09 Delivery Crew Member Lab, Adc Fam Pob I [facility] 1.2. 840.114 [id number] Univers 14:14:20 14:24:20 Visit Rita Patiño 350.1.13.10 ity of [place] 4.2.7.2.686 Brian as Professio [phone] In dical nal 0[address] [place] Office Building [facility] 2019-11-09 2019-11-09 Outpatient [facility] [id number] Univers 13:00:00 13:00:00 RITA vidal [facility] 2019-10-31 2019-10-31 Urgent Provider, [facility] 1.2.840.114 [id number] Univers 16:00:27 16:20:27 Care Rita Patiño 350.1.13.10 ity of [place] 4.2.7.2.686 Brian as Professio [phone] In dicmo nal [address] [place] [address] Office [facility] 2019-10-31 2019-10-31 Outpatient R [facility]JOSE [facility] [id number] Univers 15:40:00 15:40:00 RITA vidal [facility] 2019-10-31 2019-10-31 Orders Doctor MIKE 1.2.840.114 [id number] Univers 00:00:00 00:00:00 Only Unassigned, AQUILES 350.1.13.10 ity of [place] [facility]PITAL 4.2.7.2.686 Brian as [phone] [address] 2019-10-21 2019-10-21 Orders Doctor MIKE 1.2.840.114 [id number] Univers 00:00:00 00:00:00 Only Unassigned, AQUILES 350.1.13.10 ity of [place] [facility]OSPITAL 4.2.7.2.686 Brian as [phone] [address] Results Test Description Test Time Test Comments Results Result Comments Source BASIC METABOLIC PANEL (NA, K, CL, CO2, GLUCOSE, BUN, 2022-05 18:56:43 CREATININE, CA) Test Item Value Reference Range Interpretation Comme nts NA (test code = 4117716362) 138 mmol/L 135-145 K (test code = 0123646001) 4.2 mmol/L 3.5-5.0 CL (test code = 5325754248) 100 mmol/L 98-108 CO2 TOTAL (test code = 6602212342) 34 mmol/L 23-31 H AGAP (test code = 6650563429) 4 2-16 BUN (test code = 4094577453) 31 mg/dL 7-23 H GLUCOSE (test code = 0407806986) 226 mg/dL 70-110 H CREATININE (test code = 1.27 mg/dL 0.60-1.25 H 9763449162) CALCIUM (test code = 4147835916) 9.2 mg/dL 8.6-10.6 eGFR (test code = 3196198378) 54.0 mL/min/1.73m2 JOSEPHINE (test code = JOSEPHINE) Association of Glomerular Filtration Rate (GFR) and Staging of Kidney Disease* + +-------- + ------+| GFR (mL/min/1.73 m2) ?| With Kidney Damage ?| ?Without Kidney Damage+ +-- + +| ?>90 ?| ?Stage one ?| ? Normal ?+ +------- + -------+| ?60-89 ?| ?Stage two ?| ? Decreased GFR ? + +-------- + ------+| ?30-59 ?| ?Stage three ?| ? Stage three ? + +-------- + ------+| ?15-29 ?| ?Stage four ? | ? Stage four ?+ +------- + -------+| ?<15 (or dialysis) ? ?| ?Stage five ? | ? Stage five ?+ +------- + -------+ *Each stage assumes the associated GFR level has been in effect for at least three months. ?Stages 1 to 5, with or without kidney disease, indicate chronic kidney disease. Notes: Determination of stages one and two (with eGFR >59mL/min/1.73 m2) requires estimation of kidney damage for at least three months as defined by structural or functional abnormalities of the kidney, manifested by either:Pathological abnormalities or Markers of kidney damage (including abnormalities in the composition of the blood or urine or abnormalities in imaging tests). Lab Interpretation (test code = Abnormal 85598-0) [facility] [id number] 20:40:05 Test Item Value Reference Range Interpretation Comments TSH (test code = 3.26 See_Comment [Automated message] 8332938323) The system [employer] generated this result transmitted ref erence range: 0.45 - 4 .70 mIU/L. The refe rence range was not u sed to interpret this result as normal/abnor mal. Lab Interpretation (test Normal code = 51913-4) [facility] [id number] 20:26:25 Test Item Value Reference Range Interpretation Comments FREE T4 (test code = 1.24 See_Comment [Autom ated message] 9154183709) The system [employer] generated this result transmitted ref erence range: 0.78 - 2 .20 ng/dL:. The ref erence range was not u sed to interpret this result as normal/abnor mal. Lab Interpretation (test Normal code = 69384-1) [facility]AL [id number] 20:18:39 Test Item Value Reference Range Interpretation Comments NT-proBNP (test code = 785 pg/mL <=450 H 3568097054) JOSEPHINE (test code = JOSEPHINE) Biotin has been reported to cause a negative bias, interpret results relative to patient's use of biotin. Lab Interpretation (test Abnormal code = 03055-8) [facility]OLIC PAN[facility] (10870)2022-06-05 20:16:21 Test Item Value Reference Range Interpretation Comments NA (test code = 142 mmol/L 135-145 3769007799) K (test code = 4.5 mmol/L 3.5-5.0 4009307225) CL (test code = 105 mmol/L 98-108 8201502752) CO2 TOTAL (test code = 26 mmol/L 23-31 4228151813) AGAP (test code = 11 2-16 3536051128) BUN (test code = 22 mg/dL 7-23 5074323442) GLUCOSE (test code = 155 mg/dL 70-110 H 2724194419) CREATININE (test code = 0.96 mg/dL 0.60-1.25 9832757741) TOTAL BILI (test code = 0.5 mg/dL 0.1-1.6 7728192360) CALCIUM (test code = 9.5 mg/dL 8.6-10.6 6515908164) T PROTEIN (test code = 7.0 g/dL 6.3-8.2 2143481945) ALBUMIN (test code = 4.0 g/dL 3.5-5.0 9389443536) ALK PHOS (test code = 72 U/L 34-122 0894097963) ALTv (test code = 26 U/L 5-50 1741-6) AST(SGOT) (test code = 25 U/L 13-40 1506424736) eGFR (test code = 74.6 mL/min/1.73m2 5325387653) JOSEPHINE (test code = JOSEPHINE) Association of Glomerular Filtration Rate (GFR) and Staging of Kidney Disease* + --+ --+ ------+| GFR (mL/min/1.73 m2) ?| With Kidney Damage ?| ?Without Kidney Damage+ --------+ --------+ +| ?>90 ?| ?Stage one ?| ? Normal ?+ ---+ ---+ -------+| ?60-89 ?| ?Stage two ?| ? Decreased GFR ? + --+ --+ ------+| ?30-59 ?| ?Stage three ?| ? Stage three ? + --+ --+ ------+| ?15-29 ?| ?Stage four ? | ? Stage four ?+ ---+ ---+ -------+| ?<15 (or dialysis) ? ?| ?Stage five ? | ? Stage five ?+ ---+ ---+ -------+ *Each stage assumes the associated GFR level has been in effect for at least three months. ?Stages 1 to 5, with or without kidney disease, indicate chronic kidney disease. Notes: Determination of stages one and two (with eGFR >59mL/min/1.73 m2) requires estimation of kidney damage for at least three months as defined by structural or functional abnormalities of the kidney, manifested by either:Pathological abnormalities or Markers of kidney damage (including abnormalities in the composition of the blood or urine or abnormalities in imaging tests). Lab Interpretation Abnormal (test code = 15931-6) [facility] HospitalLIP[facility] PAN[facility] (19909)(TOTAL CHOLESTEROL, TRIGLYCERIDES, HDL)2022-06-05 20:11:42 Test Item Value Reference Range Interpretation Comments CHOL (test code = 4417716035) 177 mg/dL 120-200 HDL (test code = 5476150909) 38 mg/dL >=40 L HDLC RATIO (test code = 7159275950) 4.7 <=5.0 TRIG (test code = 3115771562) 174 mg/dL 30-170 H LDL CHOL (test code = 34732-1) 104 mg/dL <=160 VLDL (test code = 2890732359) 35 mg/dL 5-60 Lab Interpretation (test code = Abnormal 69544-1) [facility] WITH [id number] 19:38:34 Test Item Value Reference Range Interpretation Comments WBC (test code = 9.70 See_Comment [Automated 6690-2) message] The sy stem which generated this result transmitted reference range : 4.20 - 10.70 10*3/?L. The reference range was not used to interpret this result as normal/abnormal . RBC (test code = 4.76 See_Comment [Automated 759-8) message] The sy stem which generated this result transmitted reference range : 4.26 - 5.52 10*6/?L. The reference range was not used to interpret this result as normal/abnormal . HGB (test code = 14.3 g/dL 12.2-16.4 718-7) HCT (test code = 43.9 % 38.4-49.3 4544-3) MCV (test code = 92.2 fL 81.7-95.6 787-2) MCH (test code = 30.0 pg 26.1-32.7 785-6) MCHC (test code = 32.6 g/dL 31.2-35.0 786-4) RDW-SD (test code = 50.5 fL 38.5-51.6 32485-9) RDW-CV (test code = 14.8 % 12.1-15.4 788-0) PLT (test code = 159 See_Comment [Automated 777-3) message] The sy stem which generated this result transmitted reference range : 150 - 328 10*3/ ?L. The reference r ike was not used to interpret this result as normal/abnormal . MPV (test code = 11.9 fL 9.8-13.0 94174-1) NRBC/100 WBC (test 0.0 See_Comment [Automat ed code = 4302310295) message] The system which generated this result transmitted reference range : 0.0 - 10.0 /100 WBCs. The refer ence range was not u sed to interpret th is result as normal/abnormal . NRBC x10^3 (test code See_Comment [Auto mated = 7773318444) message] The s ystem which generated this result transmitted reference range : 10*3/?L. The reference range was not used to interpret this result as normal/abnormal . GRAN MAT (NEUT) % 53.0 % (test code = 770-8) IMM GRAN % (test code 0.30 % = 8914392979) LYMPH % (test code = 30.6 % 736-9) MONO % (test code = 10.6 % 5905-5) EOS % (test code = 4.7 % 713-8) BASO % (test code = 0.8 % 706-2) GRAN MAT x10^3(ANC) 5.13 10*3/uL 1.99-6.95 (test code = 6347927269) IMM GRAN x10^3 (test 0.03 10*3/uL 0.00-0.06 code = 3310085228) LYMPH x10^3 (test code 2.97 10*3/uL 1.09-3.23 = 731-0) MONO x10^3 (test code 1.03 10*3/uL 0.36-1.02 H = 742-7) EOS x10^3 (test code = 0.46 10*3/uL 0.06-0.53 711-2) BASO x10^3 (test code 0.08 10*3/uL 0.01-0.09 = 704-7) Lab Interpretation Abnormal (test code = 63967-0) [facility] WITH [id number] 19:38:34 Test Item Value Reference Range Interpretation Comments WBC (test code = 9.70 See_Comment [Automated 6690-2) message] The sy stem which generated this result transmitted reference range : 4.20 - 10.70 10*3/?L. The reference range was not used to interpret this result as normal/abnormal . RBC (test code = 4.76 See_Comment [Automated 789-8) message] The sy stem which generated this result transmitted reference range : 4.26 - 5.52 10*6/?L. The reference range was not used to interpret this result as normal/abnormal . HGB (test code = 14.3 g/dL 12.2-16.4 718-7) HCT (test code = 43.9 % 38.4-49.3 4544-3) MCV (test code = 92.2 fL 81.7-95.6 787-2) MCH (test code = 30.0 pg 26.1-32.7 785-6) MCHC (test code = 32.6 g/dL 31.2-35.0 786-4) RDW-SD (test code = 50.5 fL 38.5-51.6 13173-9) RDW-CV (test code = 14.8 % 12.1-15.4 788-0) PLT (test code = 159 See_Comment [Automated 777-3) message] The sy stem which generated this result transmitted reference range : 150 - 328 10*3/ ?L. The reference r ike was not used to interpret this result as normal/abnormal . MPV (test code = 11.9 fL 9.8-13.0 63436-5) NRBC/100 WBC (test 0.0 See_Comment [Automat ed code = 7760862066) message] The system which generated this result transmitted reference range : 0.0 - 10.0 /100 WBCs. The refer ence range was not u sed to interpret th is result as normal/abnormal . NRBC x10^3 (test code See_Comment [Auto mated = 4948386752) message] The s ystem which generated this result transmitted reference range : 10*3/?L. The reference range was not used to interpret this result as normal/abnormal . GRAN MAT (NEUT) % 53.0 % (test code = 770-8) IMM GRAN % (test code 0.30 % = 3544928821) LYMPH % (test code = 30.6 % 736-9) MONO % (test code = 10.6 % 5905-5) EOS % (test code = 4.7 % 713-8) BASO % (test code = 0.8 % 706-2) GRAN MAT x10^3(ANC) 5.13 10*3/uL 1.99-6.95 (test code = 2680457854) IMM GRAN x10^3 (test 0.03 10*3/uL 0.00-0.06 code = 3689589144) LYMPH x10^3 (test code 2.97 10*3/uL 1.09-3.23 = 731-0) MONO x10^3 (test code 1.03 10*3/uL 0.36-1.02 H = 742-7) EOS x10^3 (test code = 0.46 10*3/uL 0.06-0.53 711-2) BASO x10^3 (test code 0.08 10*3/uL 0.01-0.09 = 704-7) Lab Interpretation Abnormal (test code = 54244-5) [facility] HEMOGLOBIN A1C [id number] 20:57:00 Test Item Value Reference Range Interpretation Comments POCT HBA1C (test code = 4548-4) 7.4 % 4-6 A Lab Interpretation (test code = Abnormal 73844-7) [facility] HEMOGLOBIN A1C [id number] 20:57:00 Test Item Value Reference Range Interpretation Comments POCT HBA1C (test code = 4548-4) 7.4 % 4-6 A Lab Interpretation (test code = Abnormal 36928-2) [facility] URINALYSIS W SPECIFIC [id number] 16:12:00 Test Item Value Reference Range Interpretation Comments POCT U SP GRAV (test code = 1.020 mg/dl 1.005-1.025 3255) POCT PH U (test code = 3254) 5 mg/dl 5-8 POCT U LEUK EST (test code = neg Negative - Negative 3263) POCT U NIT (test code = 3262) neg Negative - Negative POCT U PROT (test code = trace Negative - Negative 3259) POCT U GLU (test code = 3256) Negative - Negative POCT U KETONE (test code = neg Negative - Negative 3258) POCT U UROBILI (test code = neg 0.2-1 3260) POCT U BILI (test code = neg Negative - Negative 3261) POCT U BLD (test code = 3257) neg Negative - Negative POCT U COLOR (test code = dark yellow 3266) POCT U APPEAR (test code = clear 3267) [facility] URINALYSIS W SPECIFIC [id number] 16:12:00 Test Item Value Reference Range Interpretation Comments POCT U SP GRAV (test code = 1.020 mg/dl 1.005-1.025 3255) POCT PH U (test code = 3254) 5 mg/dl 5-8 POCT U LEUK EST (test code = neg Negative - Negative 3263) POCT U NIT (test code = 3262) neg Negative - Negative POCT U PROT (test code = trace Negative - Negative 3259) POCT U GLU (test code = 3256) Negative - Negative POCT U KETONE (test code = neg Negative - Negative 3258) POCT U UROBILI (test code = neg 0.2-1 3260) POCT U BILI (test code = neg Negative - Negative 3261) POCT U BLD (test code = 3257) neg Negative - Negative POCT U COLOR (test code = dark yellow 3266) POCT U APPEAR (test code = clear 3267) [facility] GLUCOSE (AUTOMATED)2021-12-21 19:15:33 Test Item Value Reference Range Interpretation Comments POCT GLU (test code = [id number]) 235 mg/dL 70-110 H Lab Interpretation (test code = Abnormal 23767-2) [facility] GLUCOSE (AUTOMATED)2021-12-21 19:15:28 Test Item Value Reference Range Interpretation Comments POCT GLU (test code = 7730163085) 189 mg/dL 70-110 H Lab Interpretation (test code = Abnormal 95952-9) [facility]NA, K, CL, CO2, GLUCOSE, BUN, CREATININE, CA)2021-12-21 10:15:33 Test Item Value Reference Range Interpretation Comments NA (test code = 137 mmol/L 135-145 [id number]) K (test code = 4.0 mmol/L 3.5-5.0 [id number]) CL (test code = 102 mmol/L 98-108 [id number]) CO2 TOTAL (test code = 28 mmol/L 23-31 [id number]) AGAP (test code = 2-16 6347602706) BUN (test code = 25 mg/dL 7-23 H 6348725727) GLUCOSE (test code = 181 mg/dL 70-110 H 7965085070) CREATININE (test code = 1.25 mg/dL 0.60-1.25 9727550848) CALCIUM (test code = 8.5 mg/dL 8.6-10.6 L 0824886768) eGFR (test code = mL/min/1.73m2 1547684991) JOSEPHINE (test code = JOSEPHINE) Association of Glomerular Filtration Rate (GFR) and Staging of Kidney Disease* + --+ --+ ------+| GFR (mL/min/1.73 m2) ?| With Kidney Damage ?| ?Without Kidney Damage+ --------+ --------+ +| ?>90 ?| ?Stage one ?| ? Normal ?+ ---+ ---+ -------+| ?60-89 ?| ?Stage two ?| ? Decreased GFR ? + --+ --+ ------+| ?30-59 ?| ?Stage three ?| ? Stage three ? + --+ --+ ------+| ?15-29 ?| ?Stage four ? | ? Stage four ?+ ---+ ---+ -------+| ?<15 (or dialysis) ? ?| ?Stage five ? | ? Stage five ?+ ---+ ---+ -------+ *Each stage assumes the associated GFR level has been in effect for at least three months. ?Stages 1 to 5, with or without kidney disease, indicate chronic kidney disease. Notes: Determination of stages one and two (with eGFR >59mL/min/1.73 m2) requires estimation of kidney damage for at least three months as defined by structural or functional abnormalities of the kidney, manifested by either:Pathological abnormalities or Markers of kidney damage (including abnormalities in the composition of the blood or urine or abnormalities in imaging tests). Lab Interpretation Abnormal (test code = 17714-3) [facility] WITH [id number] 10:01:53 Test Item Value Reference Range Interpretation Comments WBC (test code = See_Comment [Automated 6690-2) message] The sy stem which generated this result transmitted reference range : 4.20 - 10.70 10*3/?L. The reference range was not used to interpret this result as normal/abnormal . RBC (test code = See_Comment L [Automated 789-8) message] The sy stem which generated this result transmitted reference range : 4.26 - 5.52 10*6/?L. The reference range was not used to interpret this result as normal/abnormal . HGB (test code = 12.1 g/dL 12.2-16.4 L 718-7) HCT (test code = 36.3 % 38.4-49.3 L 4544-3) MCV (test code = 91.9 fL 81.7-95.6 787-2) MCH (test code = 30.6 pg 26.1-32.7 785-6) MCHC (test code = 33.3 g/dL 31.2-35.0 786-4) RDW-SD (test code = 46.1 fL 38.5-51.6 85123-1) RDW-CV (test code = 13.6 % 12.1-15.4 788-0) PLT (test code = See_Comment L [Automated 777-3) message] The sy stem which generated this result transmitted reference range : 150 - 328 10*3/ ?L. The reference r ike was not used to interpret this result as normal/abnormal . MPV (test code = 10.8 fL 9.8-13.0 31754-5) NRBC/100 WBC (test See_Comment [Automat ed code = 0177285633) message] The system which generated this result transmitted reference range : 0.0 - 10.0 /100 WBCs. The refer ence range was not u sed to interpret th is result as normal/abnormal . NRBC x10^3 (test code See_Comment [Auto mated = 6168554156) message] The s [employer] which generated this result transmitted reference range : 10*3/?L. The reference range was not used to interpret this result as normal/abnormal . GRAN MAT (NEUT) % 52.4 % (test code = 770-8) IMM GRAN % (test code 0.40 % = 7832748851) LYMPH % (test code = 31.3 % 736-9) MONO % (test code = 9.5 % 5905-5) EOS % (test code = 5.7 % 713-8) BASO % (test code = 0.7 % 706-2) GRAN MAT x10^3(ANC) 4.03 10*3/uL 1.99-6.95 (test code = 4689261256) IMM GRAN x10^3 (test 0.03 10*3/uL 0.00-0.06 code = 4439170931) LYMPH x10^3 (test code 2.40 10*3/uL 1.09-3.23 = 731-0) MONO x10^3 (test code 0.73 10*3/uL 0.36-1.02 = 742-7) EOS x10^3 (test code = 0.44 10*3/uL 0.06-0.53 711-2) BASO x10^3 (test code 0.05 10*3/uL 0.01-0.09 = 704-7) Lab Interpretation Abnormal (test code = 79726-3) [facility] GLUCOSE (AUTOMATED)2021-12-21 00:58:59 Test Item Value Reference Range Interpretation Comments POCT GLU (test code = 7245613069) 194 mg/dL 70-110 H Lab Interpretation (test code = Abnormal 47216-9) [facility] GLUCOSE (AUTOMATED)2021-12-20 21:29:16 Test Item Value Reference Range Interpretation Comments POCT GLU (test code = 0070693167) 210 mg/dL 70-110 H Lab Interpretation (test code = Abnormal 75667-7) [facility] GLUCOSE (AUTOMATED)2021-12-20 16:26:45 Test Item Value Reference Range Interpretation Comments POCT GLU (test code = 1171175675) 311 mg/dL 70-110 H Lab Interpretation (test code = Abnormal 40843-9) [facility] GLUCOSE (AUTOMATED)2021-12-20 12:55:27 Test Item Value Reference Range Interpretation Comments POCT GLU (test code = 0379007720) 208 mg/dL 70-110 H Lab Interpretation (test code = Abnormal 91950-7) [facility] GLUCOSE (AUTOMATED)2021-12-20 12:55:27 Test Item Value Reference Range Interpretation Comments POCT GLU (test code = 0353687483) 232 mg/dL 70-110 H Lab Interpretation (test code = Abnormal 91172-7) [facility] GLUCOSE (AUTOMATED)2021-12-20 12:42:07 Test Item Value Reference Range Interpretation Comments POCT GLU (test code = 4472897374) 169 mg/dL 70-110 H Lab Interpretation (test code = Abnormal 81439-2) [facility] 01:00:21 Test Item Value Reference Range Interpretation Comments HGB A1C (test code = 8.3 % 4.0-5.7 H 4548-4) JOSEPHINE (test code = JOSEPHINE) Reference RangesNormal: <5.7%Prediabetes: 5.7 - 6.4%Diabetes: > 6.5% Lab Interpretation (test Abnormal code = 34514-8) [facility] (Total Cholesterol, Triglycerides, HDL) - [id number] 19:41:58 Test Item Value Reference Range Interpretation Comments CHOL (test code = 160 mg/dL 120-200 2023878158) HDL (test code = 35 mg/dL See_Comment L [Automated message] 8810168359) The system [employer] generated this result transmit nae reference range : >=40. The refer ence range was not u sed to interpret th is result as normal/abnormal . HDLC RATIO (test code = See_Comment [Au tomated message] 7636832911) The system [employer] generated this result transmit nae reference range : <=5.0. The refe rence range was not u sed to interpret th is result as normal/abnormal . TRIG (test code = 130 mg/dL 30-170 9700469902) LDL CHOL (test code = 99 mg/dL See_Comment [Auto mated message] 70997-0) The system [employer] generated this result transmit nae reference range : <=160. The refe rence range was not u sed to interpret th is result as normal/abnormal . VLDL (test code = 26 mg/dL 5-60 7532462964) Lab Interpretation (test Abnormal code = 09207-0) [facility] Whole [id number] 18:19:29 Test Item Value Reference Range Interpretation Comments LACTIC ACID (test code = 1.97 mmol/L 0.50-2.20 4613974183) Lab Interpretation (test code = Normal 48236-3) [facility] 16:09:56 ALCOHOL<10mg/dL12/19/2021 11:09 AM [facility]<10 [id number] Toxic>100 Depression of NURSING AGENCY MANAGER>400 Fatalities ReportedUnTexas [facility] WorthACTIVATED PARTIAL THRMPLAS ZAIRE 2021-12-19 15:48:41 Test Item Value Reference Range Interpretation Comments APTT Patient (test See_Comment [Automat ed code = 3173-2) message] The system which generated this result transmitted reference range : 23 - 38 Seconds . The reference range was not used to interpr et this result as normal/abnormal . JOSEPHINE (test code = JOSEPHINE) The [facility] patient population mean normal value for aPTT is 30 seconds. Lab Interpretation Normal (test code = 84796-9) [facility]TR[facility] [id number] 15:47:19 Test Item Value Reference Interpretation Comments Range TROPONIN I (test 0.007 ng/mL See_Comment [Automated code = 6207799520) message] The system which generated this result transmitted reference range : <=0.034. The reference range was not used to interpret this result as normal/abnormal . JOSEPHINE (test code = Reference (Normal) JOSEPHINE) Range (defined by the 99th percentile reference limit): <= 0.034 ng/mL Note: Cardiac troponin begins to rise 3-4 hours after the onset of ischemia. Repeat in 4-6 hours if the sample was drawn within 3-4 hours of the onset of the symptom and found normal. Diagnosis of myocardial injury is made with acute changes in cTn concentrations with at least one serial sample above the 99th percentile upper reference limit (URL), taken together with the patient's clinical presentation. Biotin has been reported to cause a negative bias, interpret results relative to patient's use of biotin. Lab Interpretation Normal (test code = 22271-8) [facility] HospitalPROT[facility]OMBIN [facility] / [id number] 15:46:39 Test Item Value Reference Range Interpretation Comments PROTIME PATIENT (test See_Comment [Auto mated message] code = 5964-2) The system wh ich generated this result transmitted ref erence range: 12.0 - 1 4.7 Seconds. The re ference range was not u sed to interpret this result as normal/abnor mal. INR (test code = 6301-6) Nor mal INR <1.1; Warfarin Therap eutic range 2.0 to 3. 0 or 2.5 to 3.5, dep ending upon the indica tions. Lab Interpretation (test Normal code = 04793-6) [facility] HospitalN-TERMINAL [id number] 15:44:04 Test Item Value Reference Range Interpretation Comments NT-proBNP (test code 214 pg/mL See_Comment [Autom ated = 8741160662) message] The system which generated this result transmitted reference range : <=450. The reference range was not used to interpret this result as normal/abnormal . JOSEPHINE (test code = JOSEPHINE) Biotin has been reported to cause a negative bias, interpret results relative to patient's use of biotin. Lab Interpretation Normal (test code = 03182-3) [facility]COMP. METABOLIC PANEL (01795)2021-12-19 15:35:18 Test Item Value Reference Range Interpretation Comments NA (test code = 142 mmol/L 135-145 0383125107) K (test code = 4.1 mmol/L 3.5-5.0 9847849188) CL (test code = 104 mmol/L 98-108 3287654952) CO2 TOTAL (test code = 27 mmol/L 23-31 1388279144) AGAP (test code = 2-16 0662555526) BUN (test code = 32 mg/dL 7-23 H 3527960110) GLUCOSE (test code = 164 mg/dL 70-110 H 6995089739) CREATININE (test code = 1.22 mg/dL 0.60-1.25 7986283958) TOTAL BILI (test code = 0.4 mg/dL 0.1-1.9 0294253215) CALCIUM (test code = 9.2 mg/dL 8.6-10.6 5412356838) T PROTEIN (test code = 6.7 g/dL 6.3-8.2 3971940739) ALBUMIN (test code = 4.0 g/dL 3.5-5.0 6477472934) ALK PHOS (test code = 87 U/L 34-122 4750332103) ALTv (test code = 34 U/L 5-50 1742-6) AST(SGOT) (test code = 31 U/L 13-40 7747196161) eGFR (test code = mL/min/1.73m2 4396479212) JOSEPHINE (test code = JOSEPHINE) Association of Glomerular Filtration Rate (GFR) and Staging of Kidney Disease* + --+ --+ ------+| GFR (mL/min/1.73 m2) ?| With Kidney Damage ?| ?Without Kidney Damage+ --------+ --------+ +| ?>90 ?| ?Stage one ?| ? Normal ?+ ---+ ---+ -------+| ?60-89 ?| ?Stage two ?| ? Decreased GFR ? + --+ --+ ------+| ?30-59 ?| ?Stage three ?| ? Stage three ? + --+ --+ ------+| ?15-29 ?| ?Stage four ? | ? Stage four ?+ ---+ ---+ -------+| ?<15 (or dialysis) ? ?| ?Stage five ? | ? Stage five ?+ ---+ ---+ -------+ *Each stage assumes the associated GFR level has been in effect for at least three months. ?Stages 1 to 5, with or without kidney disease, indicate chronic kidney disease. Notes: Determination of stages one and two (with eGFR >59mL/min/1.73 m2) requires estimation of kidney damage for at least three months as defined by structural or functional abnormalities of the kidney, manifested by either:Pathological abnormalities or Markers of kidney damage (including abnormalities in the composition of the blood or urine or abnormalities in imaging tests). Lab Interpretation Abnormal (test code = 24773-8) [facility] WITH [id number] 15:29:39 Test Item Value Reference Range Interpretation Comments WBC (test code = See_Comment [Automated 6690-2) message] The sy stem which generated this result transmitted reference range : 4.20 - 10.70 10*3/?L. The reference range was not used to interpret this result as normal/abnormal . RBC (test code = See_Comment [Automated 789-8) message] The sy stem which generated this result transmitted reference range : 4.26 - 5.52 10*6/?L. The reference range was not used to interpret this result as normal/abnormal . HGB (test code = 14.0 g/dL 12.2-16.4 718-7) HCT (test code = 41.4 % 38.4-49.3 4544-3) MCV (test code = 91.6 fL 81.7-95.6 787-2) MCH (test code = 31.0 pg 26.1-32.7 785-6) MCHC (test code = 33.8 g/dL 31.2-35.0 786-4) RDW-SD (test code = 46.5 fL 38.5-51.6 03055-2) RDW-CV (test code = 13.7 % 12.1-15.4 788-0) PLT (test code = See_Comment [Automated 777-3) message] The sy stem which generated this result transmitted reference range : 150 - 328 10*3/ ?L. The reference r ike was not used to interpret this result as normal/abnormal . MPV (test code = 11.2 fL 9.8-13.0 88291-6) NRBC/100 WBC (test See_Comment [Automat ed code = 9308560312) message] The system which generated this result transmitted reference range : 0.0 - 10.0 /100 WBCs. The refer ence range was not u sed to interpret th is result as normal/abnormal . NRBC x10^3 (test code See_Comment [Auto mated = 2535211090) message] The s ystem which generated this result transmitted reference range : 10*3/?L. The reference range was not used to interpret this result as normal/abnormal . GRAN MAT (NEUT) % 69.4 % (test code = 770-8) IMM GRAN % (test code 0.40 % = 9875209208) LYMPH % (test code = 20.6 % 736-9) MONO % (test code = 7.6 % 5905-5) EOS % (test code = 1.4 % 713-8) BASO % (test code = 0.6 % 706-2) GRAN MAT x10^3(ANC) 7.38 10*3/uL 1.99-6.95 H (test code = 2051609699) IMM GRAN x10^3 (test 0.04 10*3/uL 0.00-0.06 code = 9658616426) LYMPH x10^3 (test code 2.19 10*3/uL 1.09-3.23 = 731-0) MONO x10^3 (test code 0.81 10*3/uL 0.36-1.02 = 742-7) EOS x10^3 (test code = 0.15 10*3/uL 0.06-0.53 711-2) BASO x10^3 (test code 0.06 10*3/uL 0.01-0.09 = 704-7) Lab Interpretation Abnormal (test code = 50940-5) [facility]21-[facility] 14:53:52 Test Item Value Reference Range Interpretation Comments POCT GLU (test code = 6905857125) 160 mg/dL 70-110 H Lab Interpretation (test code = Abnormal 39296-4) [facility]
[2022-08-21 04:57] LABS: Absolute Lymphocytes (CBC) 3.4 K/uL (0.7-4.9); Hematocrit 40.9 % (39.6-49.0); Lymphocytes % 36.1 % (15.3-44.8); MCV 92.6 fL (80-100); MPV 9.3 fL (7.6-11.3); RBC Red Blood Cell Count 4.42 M/uL (4.33-5.43)
[2022-08-21 05:03] LABS: Protime INR 0.89
[2022-08-21 05:17] LABS: Albumin 3.2 g/dL (3.4-5.0); Bilirubin Direct 0.1 mg/dL (0-0.2); Bilirubin Indirect, Calculated 0.3 mg/dL (0.2-0.8); Bilirubin Total 0.4 mg/dL (0.2-1.0); Magnesium 1.9 mg/dL (1.6-2.4); Potassium 4.2 mEq/L (3.5-5.1); Protein, Total 7.2 g/dL (6.4-8.2); Troponin High Sensitivity 18.5 pg/mL (<58.9)
--- NOTE | 2022-08-21 06:49 | ER ---
Nurse's Notes [facility] Name: Romeo Liao Age: 86 yrs Sex: Male : 1935 Arrival Date: 08/21/2022 Time: 04:26 Bed 5 Private MD: Diagnosis: Physical debility, syncope and collapse, fall at home;Left bundle branch block on EKG Presentation: 08/21 04:46 Chief complaint: EMS states: toned out for fall at 0200. pt refused transport. toned lg3 out again at 0345 for another fall witnessed by caregiver. caregiver sates pt was sitting in care and had a syncopal episode and slid out. denies hitting head. pt denies pain. Coronavirus screen: Client denies travel out of the [place] in the last 14 days. At this time, the client does not indicate any symptoms associated with coronavirus-19. Ebola Screen: No symptoms or risks identified at this time. Initial Sepsis Screen: Does the patient meet any 2 criteria? No. Patient's initial sepsis screen is negative. Does the patient have a suspected source of infection? No. Patient's initial sepsis screen is negative. Risk Assessment: Do you want to hurt yourself or someone else? Patient reports no desire to harm self or others. Onset of symptoms was August 21, 2022. 04:46 Method Of Arrival: EMS: [facility] lg3 04:46 Acuity: SHAYLEE 3 lg3 Triage Assessment: 04:48 General: Appears in no apparent distress. comfortable, Behavior is calm, cooperative. lg3 Pain: Denies pain. EENT: No deficits noted. No signs and/or symptoms were reported regarding the EENT system. Neuro: No deficits noted. Castaneda Agitation-Sedation Scale (RASS): 0 - Alert and Calm Level of Consciousness is awake, alert, obeys commands, Oriented to person, place, time, situation, Denture Finisher are equal bilaterally Speech is normal. Cardiovascular: No deficits noted. Denies chest pain, shortness of breath, Capillary refill < 3 seconds Clubbing of nail beds is absent JVD is absent Patient's skin is warm and dry. Chest pain is denied. Respiratory: No deficits noted. Airway is patent Respiratory effort is even, unlabored, Respiratory pattern is regular, symmetrical. GI: No deficits noted. No signs and/or symptoms were reported involving the gastrointestinal system. Abdomen is round non-distended, Abd is soft and non tender X 4 quads. : No deficits noted. No signs and/or symptoms were reported regarding the genitourinary system. Derm: No deficits noted. No signs and/or symptoms reported regarding the dermatologic system. Skin is intact, is healthy with good turgor, Skin is dry, Skin is normal, Skin temperature is warm. Musculoskeletal: No deficits noted. Circulation, motion, and sensation intact. Range of motion: intact in all extremities, Parent/caregiver report the patient having new onset weakness. Historical: - Allergies: 04:48 No Known Allergies; lg3 - Home Meds: 04:48 oxybutynin chloride 5 mg Oral tablet daily [Active]; Klor-Con 10 10 mEq Oral tablet, lg3 extended release daily [Active]; clopidogrel 75 mg oral tablet daily [Active]; hydralazine 50 mg Oral tablet once [Active]; furosemide 40 mg Oral tablet daily [Active]; glimepiride 2 mg Oral tablet once [Active]; metformin 1,000 mg Oral tablet daily [Active]; metoprolol tartrate 25 mg Oral tablet [Active]; ezetimibe 10 mg oral tablet daily [Active]; tamsulosin 0.4 mg oral capsule daily [Active]; aspirin 325 mg Oral capsule daily [Active]; - PMHx: 04:48 Diabetes mellitus; HTN; high cholesterol; over active bladder; lg3 - PSHx: 04:48 back; neck; lg3 - Immunization history:: Adult Immunizations up to date, Client reports receiving the Preston \T\ Preston single-dose vaccine. - Social history:: Smoking status: Patient denies any tobacco usage or history of. Patient/guardian denies using alcohol, street drugs. - Family history:: not pertinent. Screenin:56 [facility] ED Fall Risk Assessment (Adult) History of falling in the last 3 months, lg3 including since admission Yes- fall prone (multiple falls) (3 pts) Confusion or Disorientation No (0 pts) Intoxicated or Sedated No (0 pts) Impaired Gait Yes (1 pt) Mobility Assist Device Used No (0 pt) Altered Elimination No (0 pt) Score/Fall Risk Level 3 or more points = High Risk Oriented to surroundings, Maintained a safe environment, Educated pt \T\ family on fall prevention, incl call for assistance when getting out of bed, Utilized family, sitter, or virtual camera prototyping engineer as indicated. Abuse screen: Denies threats or abuse. Denies injuries from another. Nutritional screening: No deficits noted. Tuberculosis screening: No symptoms or risk factors identified. Assessment: 04:56 General: see triage assessment. lg3 07:30 Neuro: Level of Consciousness is awake, obeys commands, confused. Respiratory: Airway aa5 is patent Respiratory effort is even, unlabored, Respiratory pattern is regular, symmetrical. Derm: Skin is pink, warm \T\ dry. 07:30 Reassessment: POC was arranged between Dr. Alcantar and pt's son, pt's son requested aa5 for pt to be discharged home. . Vital Signs: 04:46 BP 135 / 78; Pulse 86; Resp 18 S; Temp 98.7(O); Pulse Ox 96% on R/A; Weight 102.06 kg lg3 (R); Height 5 ft. 11 in. (R); Pain 0/10; 06:10 BP 99 / 63; Pulse 71; Resp 18 S; Pulse Ox 96% on R/A; as6 06:41 BP 122 / 72; Pulse 75; Resp 17 S; Pulse Ox 98% on R/A; as6 04:46 Body Mass Index 31.38 (102.06 kg, 180.34 cm) lg3 04:46 Pain Scale: Adult lg3 ED Course: 04:28 Patient arrived in ED. ja2 04:28 Rito Alcantar MD is Attending Physician. sp4 04:48 Triage completed. lg3 04:48 Arm band placed on right wrist. lg3 04:53 Inserted saline lock: 20 gauge in right antecubital area, using aseptic technique. as6 Blood collected. 04:56 Patient maintains SpO2 saturation greater than 95% on room air. lg3 04:56 Patient has correct armband on for positive identification. Placed in gown. Bed in low lg3 position. Call light in reach. Side rails up X 1. Client placed on continuous cardiac and pulse oximetry monitoring. NIBP monitoring applied. medicare interviewer on. Door closed. Noise minimized. Warm blanket given. Family accompanied patient. 05:25 CT Head C Spine In Process Unspecified. EDMS 05:31 Chest Single View XRAY In Process Unspecified. EDMS 05:31 Pelvis XRAY In Process Unspecified. EDMS 06:41 No provider procedures requiring assistance completed. as6 07:10 Philip Dawson MD is Referral Physician. sp4 07:21 Gracy Ramirez, RN is Primary Nurse. ap3 07:30 IV discontinued, intact, bleeding controlled, No redness/swelling at site. Pressure aa5 dressing applied. Administered Medications: No medications were administered Medication: 06:41 VIS not applicable for this client. as6 Outcome: 06:41 Condition: stable as6 06:48 ER care complete, transfer ordered by . sp4 07:11 Discharge ordered by MD. sp4 07:30 Discharged to home via wheelchair, with son aa5 07:30 Condition: stable 07:30 Discharge instructions given to patient, family, Instructed on discharge instructions, follow up and referral plans. Demonstrated understanding of instructions, follow-up care. 07:44 Patient left the ED. aa5 Signatures: Dispatcher [employer] Nicolle Lucia, RN RN aa5 Gracy Ramirez, RN RN ap3 Fern Pulido, SIMON MONTES lg3 Antonia Christie Ashby, RN RN as6 Rito Alcantar MD MD sp4
--- NOTE | 2022-08-21 06:49 | EDPHYS ---
Physician Documentation [facility] Name: Romeo Liao Age: 86 yrs Sex: Male : 1935 Arrival Date: 08/21/2022 Time: 04:26 Bed 5 Private MD: ED Physician Rito Alcantar HPI: 08/21 04:28 This 86 yrs old Male presents to ER via Unassigned with complaints of syncope.sp4 06:38 86-year-old male with past medical history of diabetes, hypertension, high cholesterol, sp4 overactive bladder, presents from home with complaint of syncope x2 also fall at home.. Patient cannot recall what has happened to him at home. History was collected from EMS and caregiver . . Historical: - Allergies: 04:48 No Known Allergies; lg3 - Home Meds: 04:48 oxybutynin chloride 5 mg Oral tablet daily [Active]; Klor-Con 10 10 mEq Oral tablet, lg3 extended release daily [Active]; clopidogrel 75 mg oral tablet daily [Active]; hydralazine 50 mg Oral tablet once [Active]; furosemide 40 mg Oral tablet daily [Active]; glimepiride 2 mg Oral tablet once [Active]; metformin 1,000 mg Oral tablet daily [Active]; metoprolol tartrate 25 mg Oral tablet [Active]; ezetimibe 10 mg oral tablet daily [Active]; tamsulosin 0.4 mg oral capsule daily [Active]; aspirin 325 mg Oral capsule daily [Active]; - PMHx: 04:48 Diabetes mellitus; HTN; high cholesterol; over active bladder; lg3 - PSHx: 04:48 back; neck; lg3 - Immunization history:: Adult Immunizations up to date, Client reports receiving the Preston \T\ Preston single-dose vaccine. - Social history:: Smoking status: Patient denies any tobacco usage or history of. Patient/guardian denies using alcohol, street drugs. - Family history:: not pertinent. ROS: 06:38 Constitutional: Negative for fever, chills, and weight loss, positive for syncope at sp4 home, positive for confusion, positive for overall physical debility Eyes: Negative for injury, pain, redness, and discharge, ENT: Negative for injury, pain, and discharge, Neck: Negative for injury, pain, and swelling, Cardiovascular: Negative for chest pain, palpitations, and edema, Respiratory: Negative for shortness of breath, cough, wheezing, and pleuritic chest pain, Abdomen/GI: Negative for abdominal pain, nausea, vomiting, diarrhea, and constipation, Back: Negative for injury and pain, : Negative for injury, bleeding, discharge, and swelling, MS/Extremity: Negative for injury and deformity, Skin: Negative for injury, rash, and discoloration, Neuro: Negative for headache, weakness, numbness, tingling, and seizure, positive for generalized weakness negative for localized weakness Psych: Negative for depression, anxiety, Allergy/Immunology: Negative for hives, rash, and allergies Endocrine: Negative for neck swelling, polydipsia, polyuria, polyphagia, and weight changes Hematologic/Lymphatic: Negative for swollen nodes, abnormal bleeding, and unusual bruising Exam: 06:38 Constitutional: This is a well developed, well nourished patient who is awake, alert, sp4 frail elderly male, signs of physical debility, signs of aging and dementia Head/Face: Normocephalic, atraumatic. Eyes: Pupils equal round and reactive to light, extra-ocular motions intact. Lids and lashes normal. Conjunctiva and sclera are not injected. Cornea within normal limits. Periorbital areas with no swelling, redness, or edema. ENT: Nares patent. No nasal discharge, no septal abnormalities noted. Tympanic membranes are normal and external auditory canals are clear. Oropharynx with no redness, swelling, or masses, exudates, or evidence of obstruction, uvula midline. Mucous membranes moist. Neck: Trachea midline, no thyromegaly or masses palpated, and no cervical lymphadenopathy. Supple, full range of motion without nuchal rigidity, or vertebral point tenderness. Chest/axilla: Normal chest wall appearance and motion. Nontender with no deformity. No lesions are appreciated. Cardiovascular: Regular rate and rhythm with a normal S1 and S2. No gallops, murmurs, or rubs. Normal PMI, no JVD. No pulse deficits. Respiratory: Lungs have equal breath sounds bilaterally, clear to auscultation and percussion. No rales, rhonchi or wheezes noted. No increased work of breathing, no retractions or nasal flaring. Abdomen/GI: Soft, non-tender, with normal bowel sounds. No distension or tympany. No guarding or rebound. No evidence of tenderness throughout. Back: No spinal tenderness. No costovertebral tenderness. Male : Normal genitalia with no discharge or lesions. Skin: Warm, dry with normal turgor. Normal color with no rashes, no lesions, and no evidence of cellulitis. MS/ Extremity: Pulses equal, no cyanosis. Neurovascular intact. Generalized physical deconditioning and bilateral lower extremity muscular atrophy secondary to poor mobility Neuro: Awake and alert, GCS 15, oriented to person, place, Cranial nerves II-XII grossly intact. Motor strength 5/5 in all extremities. Sensory grossly intact. Psych: Awake, alert, with orientation to person, place 07:00 ECG was reviewed by the Attending Physician. EKG time 0 450, there is sinus rhythm at a sp4 rate of 87, there is left axis deviation, left bundle branch block, negative acute [place] based on Sgarbossa criteria Vital Signs: 04:46 BP 135 / 78; Pulse 86; Resp 18 S; Temp 98.7(O); Pulse Ox 96% on R/A; Weight 102.06 kg lg3 (R); Height 5 ft. 11 in. (R); Pain 0/10; 06:10 BP 99 / 63; Pulse 71; Resp 18 S; Pulse Ox 96% on R/A; as6 06:41 BP 122 / 72; Pulse 75; Resp 17 S; Pulse Ox 98% on R/A; as6 04:46 Body Mass Index 31.38 (102.06 kg, 180.34 cm) lg3 04:46 Pain Scale: Adult lg3 MDM: 04:38 Patient medically screened. sp4 06:38 ED course: EXAM: CT Head COMPARISON: None. INDICATION: [facility] MAIN CONFUSED, SYNCOPE sp4 technique. FINDINGS: Brain parenchyma, ventricles, dura, meninges, and extra-axial spaces: Moderate generalized cerebral and cerebellar volume loss is present. Moderate hypodensities in the subcortical white matter of both hemispheres are nonspecific but likely relate to chronic small vessel disease. No acute intracranial hemorrhage or abnormal extra-axial fluid collections. Vascular structures: Intracranial atherosclerosis is present. Calvarium, mastoid air cells, paranasal sinuses and orbits: The calvarium is normal. The mastoid air cells are clear. Visualized paranasal sinuses are unremarkable. Orbital structures are unremarkable. EXAM: CT Cervical Spine COMPARISON: None. INDICATION: [facility] MAIN CONFUSED, SYNCOPE FINDINGS: Vertebrae: Vertebral statures and alignment are normal. Chronic multilevel spinal fusions. Ossification of the posterior longitudinal ligament. Degenerative changes of the odontoid process. No acute fracture, dislocation or destructive osseous process is present. Spinal canal, foramina, and facet joints: Severe multilevel neural foraminal stenoses are due to uncovertebral and facet hypertrophy. C5-C6 laminectomy. T1 laminectomy. 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 Paraspinous soft-tissues: Normal. Thyroid: Normal. Other Findings: Atherosclerosis. HEAD IMPRESSION: 1. No acute intracranial abnormality. 2. Moderate senescent changes. C-SPINE IMPRESSION: Severe chronic degenerative changes with spinal canal and neural foraminal stenoses. No acute fracture or subluxation. . 06:57 Differential Diagnosis altered mental status, sepsis, flu. ED course: EXAM: sp4 Radiographic Examination COMPARISON: None. INDICATION: [facility] MAIN fall, assess for fractures FINDINGS: 2 views of the pelvis demonstrate no acute fracture or dislocation. No significant joint effusion. Soft tissues are unremarkable. Lumbar spondylosis. IMPRESSION: No acute findings of the pelvis. . 07:00 Data reviewed: vital signs, nurses notes, EMS record, old medical records, lab test sp4 result(s), cardiac enzymes, CBC, electrolytes, urinalysis, EKG, radiologic studies, CT scan, plain films. Consideration of Admission/Observation Patient was admitted/placed on observation. Escalation of care including admission/observation considered. Management of patient was discussed with the following: Hospitalist: [facility] hospitalist. 07:08 ED course: EXAM DESCRIPTION: Chest Single View CLINICAL HISTORY: fall , syncope sp4 TECHNIQUE: AP chest COMPARISON: None available for comparison FINDINGS: CHEST: Heart: The cardiomediastinal silhouette is within normal limits. Lungs: No focal consolidation. Mediastinum: Unremarkable Pleura: No appreciable effusion. No pneumothorax. Bones: Intact IMPRESSION: No acute cardiopulmonary disease. . 07:12 ED course: Patient was attempted to be transferred to [facility] in [place] but [facility] [place] declined secondary to capacity. Patient was offered transfer to [facility] in [place] but patient has declined transfer. At this time patient prefers to go home his family prefers to take him home from the emergency room. We will advised patient to see optical lathe operator on outpatient basis for syncope work up. Patient understands all the provided instruction. 08/21 04:38 Order name: Basic Metabolic Panel; Complete Time: 06:36 sp4 08/21 04:38 Order name: CBC with Diff; Complete Time: 06:36 sp4 08/21 04:38 Order name: Hepatic Function; Complete Time: 06:36 sp4 08/21 04:38 Order name: Magnesium; Complete Time: 06:36 sp4 08/21 04:38 Order name: Protime (+inr); Complete Time: 06:36 sp4 08/21 04:38 Order name: Ptt, Activated; Complete Time: 06:36 sp4 08/21 04:38 Order name: Troponin High Sensitivity; Complete Time: 06:36 sp4 08/21 04:38 Order name: CT Head C Spine sp4 08/21 04:38 Order name: Chest Single View XRAY 4 08/21 04:38 Order name: Pelvis XRAY sp4 08/21 04:38 Order name: EKG; Complete Time: 04:39 sp4 08/21 04:38 Order name: Cardiac monitoring; Complete Time: 04:53 sp4 08/21 04:38 Order name: EKG - Nurse/Tech; Complete Time: 04:53 sp4 08/21 04:38 Order name: IV Saline Lock; Complete Time: 04:53 sp4 08/21 04:38 Order name: Labs collected and sent; Complete Time: 04:53 sp4 08/21 04:38 Order name: NPO; Complete Time: 04:53 sp4 08/21 04:38 Order name: O2 Per Protocol; Complete Time: 04:53 sp4 08/21 04:38 Order name: O2 Sat Monitoring; Complete Time: 04:53 sp4 EC:00 Rate is 87 beats/min. Rhythm is regular, Normal Sinus Rhythm. QRS [place] is Normal. Left sp4 axis deviation noted. CT interval is normal. QRS interval is prolonged. No ST changes noted. Clinical impression: No evidence of ischemia. Interpreted by me. Administered Medications: No medications were administered Disposition Summary: 08/21/22 07:11 Discharge Ordered Location: Home sp4 Problem: new(08/21/22 07:11) sp4 Symptoms: have improved(08/21/22 07:11) sp4 Condition: Stable(08/21/22 07:11) sp4 Diagnosis - Physical debility, syncope and collapse, fall at home sp4 - Left bundle branch block on EKG sp4 Followup: sp4 - With: Philip Dawson MD - When: 7 - 10 days - Reason: Recheck today's complaints Discharge Instructions: - Discharge Summary Sheet sp4 - Syncope, [id number] sp4 Forms: - [email or web address] sp4 Signatures: Dispatcher [employer] Fern Chairez RN RN lg3 Rito Alcantar MD MD sp4 Corrections: (The following items were deleted from the chart) 07:10 06:48 Samir GROSS at [facility] sp4 sp4 07:10 06:48 [facility]-System sp4 sp4 07:10 06:48 Higher level of care sp4 sp4 07:10 06:48 Stable sp4 sp4 07:10 06:48 new sp4 sp4 07:10 06:48 have improved sp4 sp4 07:10 06:48 Syncopal episode, syncope and collapse, physical debility sp4 sp4 07:41 07:05 Orthostatics ordered. sp4 aa5
[2022-08-21 07:48] VITALS: TEMP 98.7
[2022-08-21 07:52] VITALS: BP 122/72; O2SAT 98
--- NOTE | 2022-08-21 09:16 | RAD REPORT ---
EXAM DESCRIPTION: CT - Head C Spine Mpr Wo Con - 08/21/2022 6:49 am COMPARISON: None. CLINICAL HISTORY: [facility] MAIN CONFUSED, SYNCOPE TECHNIQUE: Axial images were obtained from skull base to vertex without intravenous contrast. Imag es viewed on bone and brain windows. Multiplanar reformats were performed. Automated exposure contr ol was utilized on this examination as a dose lowering technique. FINDINGS: Brain parenchyma, ventricles, dura, meninges, and extra-axial spaces: Moderate generalized cerebral and cerebellar volume loss is present. Moderate hypodensities in the subcortical white georgette er of both hemispheres are nonspecific but likely relate to chronic small vessel disease. No acute in tracranial hemorrhage or abnormal extra-axial fluid collections. Vascular structures: Intracranial atherosclerosis is present. Calvarium, mastoid air cells, paranasal sinuses and orbits: The calvarium is normal. The mastoid air cells are clear. Visualized paranasal sinuses are unremarkable. Orbital structures are unremarkable. EXAM DESCRIPTION: CT Cervical Spine COMPARISON: None. CLINICAL HISTORY: [facility] MAIN CONFUSED, SYNCOPE TECHNIQUE: Axial CT images were obtained through the entire cervical spine without contrast. Sagit eugenio and coronal reconstructions are provided. Automated exposure control was utilized on this examina tion as a dose lowering technique. FINDINGS: Vertebrae: Vertebral statures and alignment are normal. Chronic multilevel spinal fusion s. Ossification of the posterior longitudinal ligament. Degenerative changes of the odontoid process. No acute fracture, dislocation or destructive osseous process is present. Spinal canal, foramina, and facet joints: Severe multilevel neural foraminal stenoses are due to uncovertebral and facet hypertrophy. C5-C6 quigley inectomy. T1 laminectomy. 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 Paraspinous soft-tissues: Normal. Thyroid: Normal. Other Findings: Atherosclerosis. IMPRESSION: HEAD: 1. No acute intracranial abnormality. 2. Moderate senescent changes. 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 No acute fractur e or subluxation. Electronically signed by: Jeffy Cooper MD 08/21/2022 6:37 AM CDT Due to temporary technical issues with the PACS/Fluency reporting system, reports are being signed by the in house radiologists without review as a courtesy to insure prompt reporting. The interpreting radiologist is fully responsible for the content of the report.
--- NOTE | 2022-08-21 09:40 | RAD REPORT ---
EXAM DESCRIPTION: RAD - Pelvis - 08/21/2022 5:30 am COMPARISON: None. CLINICAL HISTORY: [facility] MAIN fall, assess for fractures FINDINGS: 2 views of the pelvis demonstrate no acute fracture or dislocation. No significant joint e ffusion. Soft tissues are unremarkable. Lumbar spondylosis. IMPRESSION: No acute findings of the pelvis. Electronically signed by: Jeffy Cooper MD 08/21/2022 6:51 AM CDT Due to temporary technical issues with the PACS/Fluency reporting system, reports are being signed by the in house radiologists without review as a courtesy to insure prompt reporting. The interpreting radiologist is fully responsible for the content of the report.
--- NOTE | 2022-08-21 10:24 | RAD REPORT ---
EXAM DESCRIPTION: RAD - Chest Single View - 08/21/2022 5:30 am CLINICAL HISTORY: Fall , syncope TECHNIQUE: AP chest COMPARISON: None available for comparison FINDINGS: CHEST: Heart: The cardiomediastinal silhouette is within normal limits. Lungs: No focal consolidation. Mediastinum: Unremarkable Pleura: No appreciable effusion. No pneumothorax. Bones: Intact IMPRESSION: No acute cardiopulmonary disease. Electronically signed by: Ted Joel MD 08/21/2022 6:46 AM CDT Due to temporary technical issues with the PACS/Fluency reporting system, reports are being signed by the in house radiologists without review as a courtesy to insure prompt reporting. The interpreting radiologist is fully responsible for the content of the report.
--- NOTE | 2022-08-24 17:19 | EKG ---
Test Date: 2022-08-21 Test Time: 04:50:45 Card Filer: GIRISH MEASUREMENT RESULTS: Intervals: Rate: 87 SC: QRSD: 154 QT: 440 QTc: 529 [place]: P: SC: QRS: -60 T: 88 INTERPRETIVE STATEMENTS: Sinus rhythm Left axis deviation Left bundle branch block Abnormal ECG Compared to ECG 06/15/2013 14:43:54 Uncertain supraventricular rhythm now present Left-axis deviation now present Left bundle-branch block now present Electronically Signed On 08-24-22 17:14:52 CDT by Loy Sainz
== END 2022-08-21 07:44 | disposition home or self-care (01) ==
LOC: ER 04:26
DX: R55 Syncope and collapse (principal); I44.7 Left bundle-branch block, unspecified; W18.30XA Fall on same level, unspecified, initial encounter; Y92.009 Unspecified place in unspecified non-institutional (private) residence as the place of occurrence of the external cause; R54 Age-related physical debility; I10 Essential (primary) hypertension; E11.9 Type 2 diabetes mellitus without complications
CPT/HCPCS: 36415; 70450; 71045; 72125; 72170; 80048; 80076; 83735; 84484; 85025; 85610; 85730; 93005; 99285

== ENCOUNTER 2022-11-18 23:42 | Emergency (ER) | payer OTHER, BC ==
--- OUTSIDE RECORDS SUMMARY | 2022-11-19 00:14 | XMS REPORT | Continuity of Care Document ---
:1935 Author Organization [facility] t Address [address] [place] [address] Care Team Providers Name Role Phone Philip Dawson MD Primary Care Physician PHILIP DAWSON Attending Clinician Unavailable NIVIA ENG Attending Clinician Unavailable ALAN BEAULIEU Attending Clinician Unavailable BRIANNA BRAND Attending Clinician Unavailable CONNIE OSUNA Attending Clinician Unavailable Philip Dawson MD Attending Clinician LANDON CERVANTES Attending Clinician Unavailable Lab, Ang - Db Attending Clinician Unavailable Unknown, Attending Attending Clinician Unavailable EbLandon Gray Attending Clinician Nurse, [facility] Attending Clinician Unavailable Susan Wiley MD Attending Clinician Alan Beaulieu MD Attending Clinician Antonia Bautista Attending Clinician Adelaide Bentley LVN Attending Clinician Unavailable Julio Morris MD Attending Clinician Cyrus Pablo MD Attending Clinician Unavailable Doctor Unassigned, [place] Attending Clinician Unavailable Chandan Sheehan MD Attending Clinician Nivia Sarmiento Attending Clinician CHANDAN SHEEHAN Attending Clinician Unavailable 2, [facility] Attending Clinician Unavailable PATRICIA SERRANO Attending Clinician Unavailable Ron INCOME TAX ADVISOR, Kaylee Knight Attending Clinician Unavailable Connie Ferguson Attending Clinician SUSAN WILEY Attending Clinician Unavailable Braxton INCOME TAX ADVISOR, Aina Infante Attending Clinician Brianna Portillo Attending Clinician UNKNOWN, ATTENDING Attending Clinician Unavailable Juan Billings MD Attending Clinician MARCY RUIZ Attending Clinician Unavailable Kaci BATCH HEAT TREAT OPERATOR, Marcy Attending Clinician JULIO MORRIS Attending Clinician Unavailable Mustapha GROSS, Mickey Attending Clinician Uche MONTES, [...] Clinician Unavailable DORA MOHAN Attending Clinician Unavailable Kellie Diaz Attending Clinician Ambrocio Rothman DO Attending Clinician RITA PATIÑO Attending Clinician Unavailable , [facility] Room 1 - Attending Clinician Unavailable [...] Date S nancie MEDICARE PART A \\T\\ [id number] 2002 B 00:00:00 [employer] TRADITIONAL [id number] 2014 00:00:00 Problems Condition Condition Condition Status Onset Resolution Last Treating Co mments Source Name Details Category Date Date Treatment Clinician Date Mixed Mixed Disease Active Univers hyperlipid hyperlipid 7-18 it y of emia emia 00:00: [place] 00 Medical Branch 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 00:00: [place] stenosis stenosis 00 Medica l Branch 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 00:00: [place] stenosis stenosis 00 Medica l Branch Leg edema Leg edema Disease Active Uni vers 5-05 ity of 00:00: [place] 00 Medical Branch Urinary Urinary Disease Active Univers frequency frequency 1-03 ity of 00:00: [place] 00 Medical Branch Bad odor Bad odor Disease Active Unive rs of urine of urine 1-03 ity of 00:00: [place] 00 Medical Branch Unwitnesse Unwitnesse Disease Active 2021-02 U nivers d fall d fall 1-04 ity of 00:00: [place] 00 Medical Branch 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, disease, 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 00 Me dical cular cular Branch Obesity Obesity Disease Active 2020-02 Univers (BMI (BMI 1-10 ity of 30-39.9) 30-39.9) 00:00: [place] 00 Medical Branch 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 1-10 ity of mellitus mellitus 00:00: [place] without without 00 Medical complicati complicati Br [...] 1-10 it y of on on 00:00: [place] [address] Medical Branch Pressure Pressure Disease Active 2020-02 Unive rs injury of injury of 1-10 ity of buttock, buttock, 00:00: [place] stage 1, stage 1, 00 Medica l unspecifie unspecifie Br anch d d laterality laterality COVID-19 COVID-19 Disease Active Unive rs 9-28 ity of 00:00: [place] [address] Medical Branch Allergies, Adverse Reactions, Alerts Allergy Allergy Status Severity Reaction(s) Onset Inactive Treating Comm ents Source Name Type Date Date Clinician NO KNOWN Drug Active Univers ALLERGIE Class ity of S [facility] Branch Social History Social Habit Start Date Stop Date Quantity Comments Source History of tobacco Cigarette Smoker University of use [facility] Gender identity Universit y of [facility] Sexual orientation Univer sity of [facility] Alcohol intake 2022-11-12 2022-11-12 Current drinker Unive rsity of 00:00:00 00:00:00 of alcohol [facility] (finding) Branch History of Social 2022-10-07 2022-10-07 Univers ity of function 00:00:00 00:00:00 [facility] Branch Exposure to 2022-07-04 2022-07-14 Not sure University of SARS-CoV-2 (event) 00:00:00 08:26:00 [place] Medical [facility] History SDMT Food 2021-12-23 2021-12-23 1 Univers ity of Worry 00:00:00 00:00:00 [place] [facility] History SDOH Food 2021-12-23 2021-12-23 1 Univers ity of Scarcity 00:00:00 00:00:00 [facility] Branch History SDOH 2021-12-23 2021-12-23 2 University o f Transport Med 00:00:00 00:00:00 [place] Medic al Branch History SDOH 2021-12-23 2021-12-23 2 [place] o f Transport Non-Med 00:00:00 00:00:00 [facility] ed[facility] Education 2021-12-19 2021-12-19 12 [facility] 00:00:00 00:00:00 [facility] Tobacco use and 2021-12-10 2021-12-10 Smokeless Universit y of exposure 00:00:00 00:00:00 tobacco non-user [facility] [place] [facility] [place] Tobacco Comment 2021-12-10 2021-12-10 quit over 30 yrs Uni versity of 00:00:00 00:00:00 ago [facility] Sex [birth year] At [birth year] Universit y of 00:00:00 00:00:00 [facility] Smoking Status Start Date Stop Date Source Ex-smoker 2021-12-10 00:00:00 2021-12-10 00:00:00 [facility] [place] [facility] Medications Ordered Filled Start Stop Current Ordering Indication Dosage Frequency Signature Comments Components Source Medication Medication Date Date Medication? Clinician (SIG) Name Name sulfamethox Yes [id number] 1{tbl} Take 1 Univers azole-trime 9-28 tablet by ity of thoprim 00:00: mouth in [place] ([facility] 00 [facility] Medical DS) 800-160 morning Branc h mg per and 1 tablet tablet in the evening. sulfamethox Yes [id number] 1{tbl} Take 1 Univers azole-trime 9-28 tablet by ity of thoprim 00:00: mouth in [place] ([facility] 00 [facility] Medical DS) 800-160 morning Branc h mg per and 1 tablet tablet in the evening. sulfamethox Yes [id number] 1{tbl} Take 1 Univers azole-trime 9-28 tablet by ity of thoprim 00:00: mouth in [place] ([facility] 00 [facility] Medical DS) 800-160 morning Branc h mg per and 1 tablet tablet in the evening. sulfamethox Yes [id number] 1{tbl} Take 1 Univers azole-trime 9-28 tablet by ity of thoprim 00:00: mouth in [place] ([facility]IM 00 the Medical DS) 800-160 morning Branc h mg per and 1 tablet tablet in the evening. sulfamethox 2023-0 Yes [id number] 1{tbl} Take 1 Univers azole-trime 9-28 tablet by ity of thoprim 00:00: mouth in [place] ([facility]CTRIM 00 the Medical DS) 800-160 morning Branc h mg per and 1 tablet tablet in the evening. sulfamethox 2023-0 Yes [id number] 1{tbl} Take 1 Univers azole-trime 9-28 tablet by ity of thoprim 00:00: mouth in [place] ([facility]CTRIM 00 the Medical DS) 800-160 morning Branc h mg per and 1 tablet tablet in the evening. ezetimibe 2023-0 Yes [id number] 10mg Take 1 Un [place] (ZETIA) 10 9-21 tablet by ity of mg tablet 00:00: [place] the Medical morning. Branch ezetimibe 2023-0 Yes [id number] 10mg Take 1 Un [place] (ZETIA) 10 9-21 tablet by ity of mg tablet 00:00: [place] the Medical morning. Branch ezetimibe 2023-0 Yes [id number] 10mg Take 1 Un [place] (ZETIA) 10 9-21 tablet by ity of mg tablet 00:00: [place] the Medical morning. Branch ezetimibe 2023-0 Yes [id number] 10mg Take 1 Un [place] (ZETIA) 10 9-21 tablet by ity of mg tablet 00:00: [place] the Medical morning. Branch ezetimibe 2023-0 Yes [id number] 10mg Take 1 Un [place] (ZETIA) 10 9-21 tablet by ity of mg tablet 00:00: [place] the Medical morning. Branch ezetimibe 2023-0 Yes [id number] 10mg Take 1 Un [place] (ZETIA) 10 9-21 tablet by ity of mg tablet 00:00: [place] the Medical morning. Branch ezetimibe 2023-0 Yes [id number] 10mg Take 1 Un [place] (ZETIA) 10 9-21 tablet by ity of mg tablet 00:00: [place] 00 the Medical morning. Branch ezetimibe 3-0 Yes [id number] 10mg Take 1 Un [place] (ZETIA) 10 9-21 tablet by ity of mg tablet 00:00: [place] the Medical morning. Branch ezetimibe 3-0 Yes [id number] 10mg Take 1 Un [place] (ZETIA) 10 9-21 tablet by ity of mg tablet 00:00: [place] the Medical morning. Branch ezetimibe 3-0 Yes [id number] 10mg Take 1 Un [place] (ZETIA) 10 9-19 tablet by ity of mg tablet 00:00: [place] 00 the Medical morning. Branch ezetimibe 3-0 Yes [id number] 10mg Take 1 Un [place] (ZETIA) 10 9-19 tablet by ity of mg tablet 00:00: [place] the Medical morning. Branch ezetimibe 3-0 2023- No [id number] 10mg Take 1 U nivers (ZETIA) 10 9-19 09-21 tablet by ity of mg tablet 00:00: 00:00 mouth in [place] :00 the Medical morning. Branch hydrALAZINE 3-0 Yes [id number] 50mg Take 1 Univers 50 mg 8-22 tablet by ity of tablet 00:00: mouth in [place] the Medical morning Branch and 1 tablet in the evening. hydrALAZINE 3-0 Yes [id number] 50mg Take 1 Univers 50 mg 8-22 tablet by ity of tablet 00:00: mouth in [place] 00 the morning Branch and 1 tablet in the evening. hydrALAZINE 2023-0 Yes [id number] 50mg Take 1 Univers 50 mg 8-22 tablet by ity of tablet 00:00: mouth in [place] the Medical morning Branch and 1 tablet in the evening. hydrALAZINE 2023-0 Yes [id number] 50mg Take 1 Univers 50 mg 8-22 tablet by ity of tablet 00:00: mouth in [place] the Medical morning Branch and 1 tablet in the evening. hydrALAZINE 2023-0 Yes [id number] 50mg Take 1 Univers 50 mg 8-22 tablet by ity of tablet 00:00: mouth in [place] the Medical morning Branch and 1 tablet in the evening. hydrALAZINE 2023-0 Yes [id number] 50mg Take 1 Univers 50 mg 8-22 tablet by ity of tablet 00:00: mouth in [place] [address] the Medical morning Branch and 1 tablet in the evening. hydrALAZINE 2023-0 Yes [id number] 50mg Take 1 Univers 50 mg 8-22 tablet by ity of tablet 00:00: mouth in [place] [address] the Medical morning Branch and 1 tablet in the evening. hydrALAZINE 2023-0 Yes [id number] 50mg Take 1 Univers 50 mg 8-22 tablet by ity of tablet 00:00: mouth in [place] [address] the Medical morning Branch and 1 tablet in the evening. hydrALAZINE 2023-0 Yes [id number] 50mg Take 1 Univers 50 mg 8-22 tablet by ity of tablet 00:00: mouth in [place] [address] the Medical morning Branch and 1 tablet in the evening. hydrALAZINE 2023-0 Yes [id number] 50mg Take 1 Univers 50 mg 8-22 tablet by ity of tablet 00:00: mouth in [place] [address] the Medical morning Branch and 1 tablet in the evening. hydrALAZINE 2023-0 Yes [id number] 50mg Take 1 Univers 50 mg 8-22 tablet by ity of tablet 00:00: mouth in [place] [address] the [facility] morning [place] and 1 tablet in the evening. hydrALAZINE 2023-0 Yes [id number] 50mg Take 1 Univers 50 mg 8-22 tablet by ity of tablet 00:00: mouth in [place] [address] the Medical morning [place] and 1 tablet in the evening. hydrALAZINE 2023-0 Yes [id number] 50mg Take 1 Univers 50 mg 8-22 tablet by ity of tablet 00:00: mouth in [place] [address] the Medical morning [place] and 1 tablet in the evening. hydrALAZINE 2023-0 Yes [id number] 50mg Take 1 Univers 50 mg 8-22 tablet by ity of tablet 00:00: mouth in [place] [address] the Medical morning [place] and 1 tablet in the evening. hydrALAZINE 2023-0 Yes [id number] 50mg Take 1 Univers 50 mg 8-22 tablet by ity of tablet 00:00: mouth in [address] Medical morning [place] and 1 tablet in the evening. hydrALAZINE 2023-0 Yes [id number] 50mg Take 1 Univers 50 mg 8-22 tablet by ity of tablet 00:00: mouth in [place] 00 the [facility] Branch and 1 tablet in the evening. hydrALAZINE 3-0 Yes [id number] 50mg Take 1 Univers 50 mg 8-22 tablet by ity of tablet 00:00: mouth in [place] 00 the [facility] Branch and 1 tablet in the evening. hydrALAZINE 3-0 Yes [id number] 50mg Take 1 Univers 50 mg 8-22 tablet by ity of tablet 00:00: mouth in [place] 00 the [facility] Branch and 1 tablet in the evening. CLOPIDOGREL 3-0 Yes [id number] 75mg TAKE 1 Univers 75 mg 8-21 TABLET BY ity of tablet 00:00: MOUTH [place] 00 EVERY DAY Medical IN THE [place] MORNING TAMSULOSIN 2022-0 Yes [id number] .4mg TAKE 1 Un [place]hum[place] 0.4 mg 24 8-21 CAPSULE BY ity of hr capsule 00:00: MOUTH [place] 00 EVERY DAY Medical IN THE [place] MORNING OXYBUTYNIN 2022-0 Yes [id number] 5mg TAKE 1 Univers XL 5 mg 24 8-21 TABLET BY ity of hr tablet 00:00: MOUTH [place] 00 EVERY DAY Medical IN THE [place] MORNING CLOPIDOGREL 2022-0 Yes [id number] 75mg TAKE 1 Univers 75 mg 8-21 TABLET BY ity of tablet 00:00: MOUTH [place] 00 EVERY DAY Medical IN THE [place] MORNING TAMSULOSIN 3-0 Yes [id number] .4mg TAKE 1 Un [place] 0.4 mg 24 8-21 CAPSULE BY ity of hr capsule 00:00: MOUTH [place] 00 EVERY DAY Medical IN THE [place] MORNING OXYBUTYNIN 3-0 Yes [id number] 5mg TAKE 1 Univers XL 5 mg 24 8-21 TABLET BY ity of hr tablet 00:00: MOUTH [place] 00 EVERY DAY Medical IN THE [place] MORNING CLOPIDOGREL 3-0 Yes [id number] 75mg TAKE 1 Univers 75 mg 8-21 TABLET BY ity of tablet 00:00: MOUTH [place] 00 EVERY DAY Medical IN THE [place] MORNING TAMSULOSIN 3-0 Yes [id number] .4mg TAKE 1 Un [place] 0.4 mg 24 8-21 CAPSULE BY ity of hr capsule 00:00: MOUTH [place] 00 EVERY DAY Medical IN THE [place] MORNING OXYBUTYNIN 3-0 Yes [id number] 5mg TAKE 1 Univers XL 5 mg 24 8-21 TABLET BY ity of hr tablet 00:00: MOUTH [place] 00 EVERY DAY Medical IN THE [place] MORNING CLOPIDOGREL 2022-0 Yes [id number] 75mg TAKE 1 Univers 75 mg 8-21 TABLET BY ity of tablet 00:00: MOUTH [place] 00 EVERY DAY Medical IN THE [facility] TAMSULOSIN 2022-0 Yes [id number] .4mg TAKE 1 Un [place] 0.4 mg 24 8-21 CAPSULE BY ity of hr capsule 00:00: MOUTH [place] 00 EVERY DAY Medical IN THE [place] MORNING OXYBUTYNIN 2022-0 Yes [id number] 5mg TAKE 1 Univers XL 5 mg 24 8-21 TABLET BY ity of hr tablet 00:00: MOUTH [place] 00 EVERY DAY Medical IN THE [facility] CLOPIDOGREL 2022-0 Yes [id number] 75mg TAKE 1 Univers 75 mg 8-21 TABLET BY ity of tablet 00:00: MOUTH [place] 00 EVERY DAY Medical IN THE [facility] TAMSULOSIN 2022-0 Yes [id number] .4mg TAKE 1 Un [place] 0.4 mg 24 8-21 CAPSULE BY ity of hr capsule 00:00: MOUTH [place] 00 EVERY DAY Medical IN THE [facility] OXYBUTYNIN 2022-0 Yes [id number] 5mg TAKE 1 Univers XL 5 mg 24 8-21 TABLET BY ity of hr tablet 00:00: MOUTH [place] 00 EVERY DAY Medical IN THE [facility] CLOPIDOGREL 2022-0 Yes [id number] 75mg TAKE 1 Univers 75 mg 8-21 TABLET BY ity of tablet 00:00: MOUTH [place] 00 EVERY DAY Medical IN THE [facility] TAMSULOSIN 2022-0 Yes [id number] .4mg TAKE 1 Un [place] 0.4 mg 24 8-21 CAPSULE BY ity of hr capsule 00:00: MOUTH [place] 00 EVERY DAY Medical IN THE [place] MORNING OXYBUTYNIN 3-0 Yes [id number] 5mg TAKE 1 Univers XL 5 mg 24 8-21 TABLET BY ity of hr tablet 00:00: MOUTH [place] 00 EVERY DAY Medical IN THE [place] MORNING CLOPIDOGREL 2022-0 Yes [id number] 75mg TAKE 1 Univers 75 mg 8-21 TABLET BY ity of tablet 00:00: MOUTH [place] 00 EVERY DAY Medical IN THE [facility] TAMSULOSIN 3-0 Yes [id number] .4mg TAKE 1 Un [place] 0.4 mg 24 8-21 CAPSULE BY ity of hr capsule 00:00: MOUTH [place] 00 EVERY DAY Medical IN THE Branch MORNING OXYBUTYNIN 2022-0 Yes [id number] 5mg TAKE 1 Univers XL 5 mg 24 8-21 TABLET BY ity of hr tablet 00:00: MOUTH [place] 00 EVERY DAY Medical IN THE [place] MORNING CLOPIDOGREL 2022-0 Yes [id number] 75mg TAKE 1 Univers 75 mg 8-21 TABLET BY ity of tablet 00:00: MOUTH [place] 00 EVERY DAY Medical IN THE [facility] TAMSULOSIN 2022-0 Yes [id number] .4mg TAKE 1 Un [place] 0.4 mg 24 8-21 CAPSULE BY ity of hr capsule 00:00: MOUTH [place] 00 EVERY DAY Medical IN THE [place] MORNING OXYBUTYNIN 2022-0 Yes [id number] 5mg TAKE 1 Univers XL 5 mg 24 8-21 TABLET BY ity of hr tablet 00:00: MOUTH [place] 00 EVERY DAY Medical IN THE [facility] CLOPIDOGREL 2022-0 Yes [id number] 75mg TAKE 1 Univers 75 mg 8-21 TABLET BY ity of tablet 00:00: MOUTH [place] 00 EVERY DAY Medical IN THE [facility] TAMSULOSIN 2022-0 Yes [id number] .4mg TAKE 1 Un [place] 0.4 mg 24 8-21 CAPSULE BY ity of hr capsule 00:00: MOUTH [place] 00 EVERY DAY Medical IN THE [place] MORNING OXYBUTYNIN 2022-0 Yes [id number] 5mg TAKE 1 Univers XL 5 mg 24 8-21 TABLET BY ity of hr tablet 00:00: MOUTH [place] 00 EVERY DAY Medical IN THE [place] MORNING CLOPIDOGREL 2022-0 Yes [id number] 75mg TAKE 1 Univers 75 mg 8-21 TABLET BY ity of tablet 00:00: MOUTH [place] 00 EVERY DAY Medical IN THE [place] MORNING TAMSULOSIN 2022-0 Yes [id number] .4mg TAKE 1 Un [place] 0.4 mg 24 8-21 CAPSULE BY ity of hr capsule 00:00: MOUTH [place] 00 EVERY DAY Medical IN THE [place] MORNING OXYBUTYNIN 2022-0 Yes [id number] 5mg TAKE 1 Univers XL 5 mg 24 8-21 TABLET BY ity of hr tablet 00:00: MOUTH [place] 00 EVERY DAY Medical IN THE [place] MORNING CLOPIDOGREL 2022-0 Yes [id number] 75mg TAKE 1 Univers 75 mg 8-21 TABLET BY ity of tablet 00:00: MOUTH [place] 00 EVERY DAY Medical IN THE [place] MORNING TAMSULOSIN 2022-0 Yes [id number] .4mg TAKE 1 Un [place] 0.4 mg 24 8-21 CAPSULE BY ity of hr capsule 00:00: MOUTH [place] 00 EVERY DAY Medical IN THE [place] MORNING OXYBUTYNIN 2022-0 Yes [id number] 5mg TAKE 1 Univers XL 5 mg 24 8-21 TABLET BY ity of hr tablet 00:00: MOUTH [place] 00 EVERY DAY Medical IN THE [facility] CLOPIDOGREL 2022-0 Yes [id number] 75mg TAKE 1 Univers 75 mg 8-21 TABLET BY ity of tablet 00:00: MOUTH [place] 00 EVERY DAY Medical IN THE [facility] TAMSULOSIN 2022-0 Yes [id number] .4mg TAKE 1 Un [place] 0.4 mg 24 8-21 CAPSULE BY ity of hr capsule 00:00: MOUTH [place] 00 EVERY DAY Medical IN THE [facility] OXYBUTYNIN 2022-0 Yes [id number] 5mg TAKE 1 Univers XL 5 mg 24 8-21 TABLET BY ity of hr tablet 00:00: MOUTH [place] 00 EVERY DAY Medical IN THE [facility] CLOPIDOGREL 2022-0 Yes [id number] 75mg TAKE 1 Univers 75 mg 8-21 TABLET BY ity of tablet 00:00: MOUTH [place] 00 EVERY DAY Medical IN THE [facility] TAMSULOSIN 2022-0 Yes [id number] .4mg TAKE 1 Un [place] 0.4 mg 24 8-21 CAPSULE BY ity of hr capsule 00:00: MOUTH [place] 00 EVERY DAY Medical IN THE [facility] OXYBUTYNIN 2022-0 Yes [id number] 5mg TAKE 1 Univers XL 5 mg 24 8-21 TABLET BY ity of hr tablet 00:00: MOUTH [place] 00 EVERY DAY Medical IN THE [place] MORNING CLOPIDOGREL 2022-0 Yes [id number] 75mg TAKE 1 Univers 75 mg 8-21 TABLET BY ity of tablet 00:00: MOUTH [place] 00 EVERY DAY Medical IN THE [facility] TAMSULOSIN 2022-0 Yes [id number] .4mg TAKE 1 Un [place] 0.4 mg 24 8-21 CAPSULE BY ity of hr capsule 00:00: MOUTH [place] 00 EVERY DAY Medical IN THE [place] MORNING OXYBUTYNIN 2022-0 Yes [id number] 5mg TAKE 1 Univers XL 5 mg 24 8-21 TABLET BY ity of hr tablet 00:00: MOUTH [place] 00 EVERY DAY Medical IN THE [place] MORNING CLOPIDOGREL 2022-0 Yes [id number] 75mg TAKE 1 Univers 75 mg 8-21 TABLET BY ity of tablet 00:00: MOUTH [place] 00 EVERY DAY Medical IN THE [place] MORNING TAMSULOSIN 2022-0 Yes [id number] .4mg TAKE 1 Un [place] 0.4 mg 24 8-21 CAPSULE BY ity of hr capsule 00:00: MOUTH [place] 00 EVERY DAY Medical IN THE [place] MORNING OXYBUTYNIN 2022-0 Yes [id number] 5mg TAKE 1 Univers XL 5 mg 24 8-21 TABLET BY ity of hr tablet 00:00: MOUTH [place] 00 EVERY DAY Medical IN THE [place] MORNING CLOPIDOGREL 2022-0 Yes [id number] 75mg TAKE 1 Univers 75 mg 8-21 TABLET BY ity of tablet 00:00: MOUTH [place] 00 EVERY DAY Medical IN THE [place] MORNING TAMSULOSIN 2022-0 Yes [id number] .4mg TAKE 1 Un [place] 0.4 mg 24 8-21 CAPSULE BY ity of hr capsule 00:00: MOUTH [place] 00 EVERY DAY Medical IN THE [place] MORNING OXYBUTYNIN 2022-0 Yes [id number] 5mg TAKE 1 Univers XL 5 mg 24 8-21 TABLET BY ity of hr tablet 00:00: MOUTH [place] 00 EVERY DAY Medical IN THE [place] MORNING CLOPIDOGREL 2022-0 Yes [id number] 75mg TAKE 1 Univers 75 mg 8-21 TABLET BY ity of tablet 00:00: MOUTH [place] 00 EVERY DAY Medical IN THE [place] MORNING TAMSULOSIN 2022-0 Yes [id number] .4mg TAKE 1 Un [place] 0.4 mg 24 8-21 CAPSULE BY ity of hr capsule 00:00: MOUTH [place] 00 EVERY DAY Medical IN THE [place] MORNING OXYBUTYNIN 2022-0 Yes [id number] 5mg TAKE 1 Univers XL 5 mg 24 8-21 TABLET BY ity of hr tablet 00:00: MOUTH [place] 00 EVERY DAY Medical IN THE [place] MORNING CLOPIDOGREL 3-0 Yes [id number] 75mg TAKE 1 Univers 75 mg 8-21 TABLET BY ity of tablet 00:00: MOUTH [place] 00 EVERY DAY Medical IN THE [place] MORNING TAMSULOSIN 3-0 Yes [id number] .4mg TAKE 1 Un [place] 0.4 mg 24 8-21 CAPSULE BY ity of hr capsule 00:00: MOUTH [place] 00 EVERY DAY Medical IN THE [place] MORNING OXYBUTYNIN 3-0 Yes [id number] 5mg TAKE 1 Univers XL 5 mg 24 8-21 TABLET BY ity of hr tablet 00:00: MOUTH [place] 00 EVERY DAY Medical IN THE [place] MORNING CLOPIDOGREL 3-0 Yes [id number] 75mg TAKE 1 Univers 75 mg 8-21 TABLET BY ity of tablet 00:00: MOUTH [place] 00 EVERY DAY Medical IN THE [place] MORNING TAMSULOSIN 2022-0 Yes [id number] .4mg TAKE 1 Un [place] 0.4 mg 24 8-21 CAPSULE BY ity of hr capsule 00:00: MOUTH [place] 00 EVERY DAY Medical IN THE [place] MORNING OXYBUTYNIN 2022-0 Yes [id number] 5mg TAKE 1 Univers XL 5 mg 24 8-21 TABLET BY ity of hr tablet 00:00: MOUTH [place] 00 EVERY DAY Medical IN THE [place] MORNING metFORMIN 2022-0 Yes [id number] 500mg Take 1 U nivers 500 mg 7-23 tablet by ity of tablet 00:00: mouth [place] 00 daily with Medical breakfast. [place] metFORMIN 2022-0 Yes [id number] 500mg Take 1 U nivers 500 mg 7-23 tablet by ity of tablet 00:00: mouth [place] 00 daily with Medical breakfast. [place] metFORMIN 2022-0 Yes [id number] 500mg Take 1 U nivers 500 mg 7-23 tablet by ity of tablet 00:00: mouth [place] 00 daily with Medical breakfast. [place] metFORMIN 2022-0 Yes [id number] 500mg Take 1 U nivers 500 mg 7-23 tablet by ity of tablet 00:00: mouth [place] 00 daily with Medical breakfast. [place] metFORMIN 2022-0 Yes [id number] 500mg Take 1 U nivers 500 mg 7-23 tablet by ity of tablet 00:00: mouth [place] 00 daily with Medical breakfast. [place] metFORMIN 2022-0 Yes [id number] 500mg Take 1 U nivers 500 mg 7-23 tablet by ity of tablet 00:00: mouth [place] 00 daily with Medical breakfast. [place] metFORMIN 2022-0 Yes [id number] 500mg Take 1 U nivers 500 mg 7-23 tablet by ity of tablet 00:00: mouth [place] 00 daily with Medical breakfast. [place] metFORMIN 2022-0 Yes [id number] 500mg Take 1 U nivers 500 mg 7-23 tablet by ity of tablet 00:00: mouth [place] 00 daily with Medical breakfast. [place] metFORMIN 2022-0 Yes [id number] 500mg Take 1 U nivers 500 mg 7-23 tablet by ity of tablet 00:00: mouth [place] 00 daily with Medical breakfast. Branch metFORMIN 3-0 Yes [id number] 500mg Take 1 U nivers 500 mg 7-23 tablet by ity of tablet 00:00: mouth [place] 00 daily with Medical breakfast. Branch metFORMIN 3-0 Yes [id number] 500mg Take 1 U nivers 500 mg 7-23 tablet by ity of tablet 00:00: mouth [place] 00 daily with Medical breakfast. Branch metFORMIN 3-0 Yes [id number] 500mg Take 1 U nivers 500 mg 7-23 tablet by ity of tablet 00:00: mouth [place] 00 daily with Medical breakfast. Branch metFORMIN 3-0 Yes [id number] 500mg Take 1 U nivers 500 mg 7-23 tablet by ity of tablet 00:00: mouth [place] 00 daily with Medical breakfast. Branch metFORMIN 3-0 Yes [id number] 500mg Take 1 U nivers 500 mg 7-23 tablet by ity of tablet 00:00: mouth [place] 00 daily with Medical breakfast. Branch metFORMIN 3-0 Yes [id number] 500mg Take 1 U nivers 500 mg 7-23 tablet by ity of tablet 00:00: mouth [place] 00 daily with Medical breakfast. Branch metFORMIN 3-0 Yes [id number] 500mg Take 1 U nivers 500 mg 7-23 tablet by ity of tablet 00:00: mouth [place] 00 daily with Medical breakfast. Branch metFORMIN 3-0 Yes [id number] 500mg Take 1 U nivers 500 mg 7-23 tablet by ity of tablet 00:00: mouth [place] 00 daily with Medical breakfast. Branch metFORMIN 3-0 Yes [id number] 500mg Take 1 [facility] 500 mg 7-23 tablet by [facility] tablet 00:00: mouth [place] 00 daily with Medical breakfast. Branch metFORMIN 2023-0 Yes [id number] 500mg Take 1 [facility] 500 mg 7-23 tablet by [facility] tablet 00:00: mouth [place] 00 daily with Medical breakfast. Branch metFORMIN 2023-0 Yes [id number] 500mg Take 1 [facility] 500 mg 7-23 tablet by [facility] tablet 00:00: mouth [place] 00 daily with Medical breakfast. Branch metFORMIN 2023-0 Yes [id number] 500mg Take 1 [facility] 500 mg 7-23 tablet by [facility] tablet 00:00: mouth [place] 00 daily with Medical breakfast. Branch metFORMIN 2023-0 Yes [id number] 500mg Take 1 [facility] 500 mg 7-23 tablet by [facility] of tablet 00:00: mouth [place] 00 daily with Medical breakfast. Branch metFORMIN 2022-0 Yes [id number] 500mg Take 1 [facility] 500 mg 7-23 tablet by [facility] tablet 00:00: mouth [place] 00 daily with Medical breakfast. Branch metFORMIN 2022-0 Yes [id number] 500mg Take 1 [facility] 500 mg 7-23 tablet by [facility] tablet 00:00: mouth [place] 00 daily with Medical breakfast. Branch metFORMIN 2022-0 Yes [id number] 500mg Take 1 [facility] 500 mg 7-23 tablet by [facility] tablet 00:00: mouth [place] 00 daily with Medical breakfast. Branch metFORMIN 2022-0 Yes [id number] 500mg Take 1 [facility] 500 mg 7-23 tablet by [facility] tablet 00:00: mouth [place] 00 daily with Medical breakfast. Branch metFORMIN 2022-0 Yes [id number] 500mg Take 1 [facility] 500 mg 7-23 tablet by [facility] tablet 00:00: mouth [place] 00 daily with Medical breakfast. Branch glimepiride 2022-0 Yes [id number] TAKE 1 [facility] 2 mg tablet 7-22 TABLET BY [facility] of 00:00: MOUTH [place] 00 EVERY DAY Medical WITH Branch BREAKFAST glimepiride 2022-0 Yes [id number] TAKE 1 [facility] 2 mg tablet 7-22 TABLET BY [facility] of 00:00: MOUTH [place] 00 EVERY DAY Medical WITH Branch BREAKFAST glimepiride 2022-0 Yes [id number] TAKE 1 [facility] 2 mg tablet 7-22 TABLET BY [facility] of 00:00: MOUTH [place] 00 EVERY DAY Medical WITH Branch BREAKFAST glimepiride 2022-0 Yes [id number] TAKE 1 [facility] 2 mg tablet 7-22 TABLET BY [facility] of 00:00: MOUTH [place] 00 EVERY DAY Medical WITH Branch BREAKFAST glimepiride 2022-0 Yes [id number] TAKE 1 [facility] 2 mg tablet 7-22 TABLET BY [facility] of 00:00: MOUTH [place] 00 EVERY DAY Medical WITH Branch BREAKFAST glimepiride 2022-0 Yes [id number] TAKE 1 [facility] 2 mg tablet 7-22 TABLET BY [facility] of 00:00: MOUTH [place] 00 EVERY DAY Medical WITH Branch BREAKFAST glimepiride 2022-0 Yes [id number] TAKE 1 [facility] 2 mg tablet 7-22 TABLET BY [facility] of 00:00: MOUTH [place] 00 EVERY DAY Medical WITH Branch BREAKFAST glimepiride 2023-0 Yes [id number] TAKE 1 [facility] 2 mg tablet 7-22 TABLET BY [facility] of 00:00: MOUTH [place] 00 EVERY DAY Medical WITH Branch BREAKFAST glimepiride 2023-0 Yes [id number] TAKE 1 [facility] 2 mg tablet 7-22 TABLET BY [facility] of 00:00: MOUTH [place] 00 EVERY DAY Medical WITH Branch BREAKFAST glimepiride 2023-0 Yes [id number] TAKE 1 [facility] 2 mg tablet 7-22 TABLET BY [facility] of 00:00: MOUTH [place] 00 EVERY DAY Medical WITH Branch BREAKFAST glimepiride 2023-0 Yes [id number] TAKE 1 [facility] 2 mg tablet 7-22 TABLET BY [facility] of 00:00: MOUTH [place] 00 EVERY DAY Medical WITH Branch BREAKFAST glimepiride 2023-0 Yes [id number] TAKE 1 [facility] 2 mg tablet 7-22 TABLET BY [facility] of 00:00: MOUTH [place] 00 EVERY DAY Medical WITH Branch BREAKFAST glimepiride 2023-0 Yes [id number] TAKE 1 [facility] 2 mg tablet 7-22 TABLET BY [facility] of 00:00: MOUTH [place] 00 EVERY DAY Medical WITH Branch BREAKFAST glimepiride 2023-0 Yes [id number] TAKE 1 [facility] 2 mg tablet 7-22 TABLET BY [facility] of 00:00: MOUTH [place] 00 EVERY DAY Medical WITH Branch BREAKFAST glimepiride 2023-0 Yes [id number] TAKE 1 [facility] 2 mg tablet 7-22 TABLET BY [facility] of 00:00: MOUTH [place] 00 EVERY DAY Medical WITH Branch BREAKFAST glimepiride 2023-0 Yes [id number] TAKE 1 [facility] 2 mg tablet 7-22 TABLET BY [facility] of 00:00: MOUTH [place] 00 EVERY DAY Medical WITH Branch BREAKFAST glimepiride 2023-0 Yes [id number] TAKE 1 [facility] 2 mg tablet 7-22 TABLET BY [facility] of 00:00: MOUTH [place] 00 EVERY DAY Medical WITH Branch BREAKFAST glimepiride 2023-0 Yes [id number] TAKE 1 [facility] 2 mg tablet 7-22 TABLET BY [facility] of 00:00: MOUTH [place] 00 EVERY DAY Medical WITH Branch BREAKFAST glimepiride 2023-0 Yes [id number] TAKE 1 [facility] 2 mg tablet 7-22 TABLET BY [facility] of 00:00: MOUTH [place] 00 EVERY DAY Medical WITH Branch BREAKFAST glimepiride 2023-0 Yes [id number] TAKE 1 [facility] 2 mg tablet 7-22 TABLET BY [facility] of 00:00: MOUTH [place] 00 EVERY DAY Medical WITH Branch BREAKFAST glimepiride 2022-0 Yes [id number] TAKE 1 [facility] 2 mg tablet 7-22 TABLET BY [facility] of 00:00: MOUTH [place] 00 EVERY DAY Medical WITH Branch BREAKFAST glimepiride 2022-0 Yes [id number] TAKE 1 [facility] 2 mg tablet 7-22 TABLET BY [facility] of 00:00: MOUTH [place] 00 EVERY DAY Medical WITH Branch BREAKFAST glimepiride 2022-0 Yes [id number] TAKE 1 [facility] 2 mg tablet 7-22 TABLET BY [facility] of 00:00: MOUTH [place] 00 EVERY DAY Medical WITH Branch BREAKFAST glimepiride 2022-0 Yes [id number] TAKE 1 [facility] 2 mg tablet 7-22 TABLET BY [facility] of 00:00: MOUTH [place] 00 EVERY DAY Medical WITH Branch BREAKFAST glimepiride 2022-0 Yes [id number] TAKE 1 [facility] 2 mg tablet 7-22 TABLET BY [facility] of 00:00: MOUTH [place] 00 EVERY DAY Medical WITH Branch BREAKFAST glimepiride 2022-0 Yes [id number] TAKE 1 [facility] 2 mg tablet 7-22 TABLET BY [facility] of 00:00: MOUTH [place] 00 EVERY DAY Medical WITH Branch BREAKFAST glimepiride 2022-0 Yes [id number] TAKE 1 [facility] 2 mg tablet 7-22 TABLET BY [facility] of 00:00: MOUTH [place] 00 EVERY DAY Medical WITH Branch BREAKFAST glimepiride 2022-0 Yes [id number] TAKE 1 [facility] 2 mg tablet 7-22 TABLET BY [facility] of 00:00: MOUTH [place] 00 EVERY DAY Medical WITH Branch BREAKFAST aspirin 81 2022-0 Yes 325mg Take 325 [facility] mg EC 7-18 mg by [facility] of tablet 11:23: mouth. [address] Branch aspirin 81 2022-0 Yes 325mg Take 325 [facility] mg EC 7-18 mg by [facility] of tablet 11:23: mouth. [address] Branch aspirin 81 2022-0 Yes 325mg Take 325 [facility] mg EC 7-18 mg by [facility] of tablet 11:23: mouth. [address] aspirin 81 2022-0 Yes 325mg Take 325 [facility] mg EC 7-18 mg by [facility] of tablet 11:23: mouth. [address] aspirin 81 2022-0 Yes 325mg Take 325 [facility] mg EC 7-18 mg by [facility] of tablet 11:23: mouth. [place] [address] Medical Branch aspirin 81 2023-0 Yes 325mg Take 325 [facility] mg EC 7-18 mg by it[facility] of tablet 11:23: mouth. [address] Branch aspirin 81 3-0 Yes 325mg Take 325 [facility] mg EC 7-18 mg by [facility] of tablet 11:23: mouth. [address] Branch aspirin 81 2022-0 Yes 325mg Take 325 [facility] mg EC 7-18 mg by [facility] of tablet 11:23: mouth. [address] Branch aspirin 81 2022-0 Yes 325mg Take 325 [facility] mg EC 7-18 mg by [facility] of tablet 11:23: mouth. [address] Branch aspirin 81 2022-0 Yes 325mg Take 325 [facility] mg EC 7-18 mg by [facility] of tablet 11:23: mouth. [address] Branch aspirin 81 2022-0 Yes 325mg Take 325 [facility] mg EC 7-18 mg by [facility] of tablet 11:23: mouth. [address] Branch aspirin 81 2022-0 Yes 325mg Take 325 [facility] mg EC 7-18 mg by [facility] of tablet 11:23: mouth. [address] Branch aspirin 81 3-0 Yes 325mg Take 325 [facility] mg EC 7-18 mg by [facility] of tablet 11:23: mouth. [address] Branch aspirin 81 3-0 Yes 325mg Take 325 [facility] mg EC 7-18 mg by [facility] of tablet 11:23: mouth. [address] aspirin 81 2022-0 Yes 325mg Take 325 [facility] mg EC 7-18 mg by [facility] of tablet 11:23: mouth. [address] Branch aspirin 81 3-0 Yes 325mg Take 325 [facility] mg EC 7-18 mg by [facility] of tablet 11:23: mouth. [address] Branch aspirin 81 2023-0 Yes 325mg Take 325 [facility] mg EC 7-18 mg by [facility] of tablet 11:23: mouth. [address] Branch aspirin 81 3-0 Yes 325mg Take 325 [facility] mg EC 7-18 mg by [facility] of tablet 11:23: mouth. [address] Branch aspirin 81 3-0 Yes 325mg Take 325 [facility] mg EC 7-18 mg by [facility] of tablet 11:23: mouth. [place] [address] Medical Branch aspirin 81 2022-0 Yes 325mg Take 325 [facility] mg EC 7-18 mg by [facility] of tablet 11:23: mouth. [place] [address] Medical Branch aspirin 81 202-0 Yes 325mg Take 325 [facility] mg EC 7-18 mg by [facility] of tablet 11:23: mouth. [place] [address] Medical Branch aspirin 81 2022-0 Yes 325mg Take 325 [facility] mg EC 7-18 mg by [facility] of tablet 11:23: mouth. [address] Branch aspirin 81 2022-0 Yes 325mg Take 325 [facility] mg EC 7-18 mg by [facility] of tablet 11:23: mouth. [address] Branch aspirin 81 2022-0 Yes 325mg Take 325 [facility] mg EC 7-18 mg by [facility] of tablet 11:23: mouth. [address] Branch aspirin 81 2022-0 Yes 325mg Take 325 [facility] mg EC 7-18 mg by [facility] of tablet 11:23: mouth. [address] Branch aspirin 81 2022-0 Yes 325mg Take 325 [facility] mg EC 7-18 mg by [facility] of tablet 11:23: mouth. [place] [address] Medical Branch aspirin 81 2022-0 Yes 325mg Take 325 [facility] mg EC 7-18 mg by [facility] of tablet 11:23: mouth. [address] Branch aspirin 81 2022-0 Yes 325mg Take 325 [facility] mg EC 7-18 mg by [facility] of tablet 11:23: mouth. [address] Branch aspirin 81 2022-0 Yes 325mg Take 325 [facility] mg EC 7-18 mg by [facility] of tablet 11:23: mouth. [address] Branch aspirin 81 2022-0 Yes 325mg Take 325 [facility] mg EC 7-18 mg by [facility] of tablet 11:23: mouth. [address] Branch aspirin 81 3-0 Yes 325mg Take 325 [facility] mg EC 7-18 mg by it[facility] of tablet 11:23: mouth. [address] Branch aspirin 81 3-0 Yes 325mg Take 325 [facility] mg EC 7-18 mg by [facility] of tablet 11:23: mouth. [address] Branch aspirin 81 3-0 Yes 325mg Take 325 [facility] mg EC 7-18 mg by ity of tablet 11:23: mouth. [address] Branch aspirin 81 3-0 Yes 325mg Take 325 [facility] mg EC 7-18 mg by [facility] of tablet 11:23: mouth. [address] Branch aspirin 81 2023-0 Yes 325mg Take 325 [facility] mg EC 7-18 mg by ity of tablet 11:23: mouth. [address] Branch aspirin 81 2023-0 Yes 325mg Take 325 [facility] mg EC 7-18 mg by it[facility] of tablet 11:23: mouth. [address] Branch aspirin 81 202-0 Yes 325mg Take 325 [facility] mg EC 7-18 mg by ity of tablet 11:23: mouth. [address] Branch aspirin 81 202-0 Yes 325mg Take 325 [facility] mg EC 7-18 mg by ity of tablet 11:23: mouth. [address] Branch aspirin 81 202-0 Yes 325mg Take 325 [facility] mg EC 7-18 mg by it[facility] of tablet 11:23: mouth. [address] Branch aspirin 81 2022-0 Yes 325mg Take 325 [facility] mg EC 7-18 mg by ity of tablet 11:23: mouth. [address] Branch aspirin 81 3-0 Yes 325mg Take 325 [facility] mg EC 7-18 mg by ity of tablet 11:23: mouth. [address] Branch aspirin 81 3-0 Yes 325mg Take 325 [facility] mg EC 7-18 mg by ity of tablet 11:23: mouth. [address] Branch aspirin 81 3-0 Yes 325mg Take 325 [facility] mg EC 7-18 mg by ity of tablet 11:23: mouth. [address] Branch aspirin 81 2022-0 Yes 325mg Take 325 [facility] mg EC 7-18 mg by ity of tablet 11:23: mouth. [address] Branch aspirin 81 3-0 Yes 325mg Take 325 [facility] mg EC 7-18 mg by ity of tablet 11:23: mouth. [address] Branch Cholecalcif 2023-0 Yes 125ug Take 125 U nivers [place], 7-18 mcg by ity of Vitamin D3, 11:23: mouth. [place] 125 mcg 03 Medical (5,000 Branch unit) tablet Cholecalcif 2022-0 Yes 125ug Take 125 [facility] n[facility] [place], 7-18 mcg by [facility] Vitamin D3, 11:23: [place] 125 [place] 03 [facility] (5,000 Branch unit) tablet Cholecalcif 2023-0 Yes 125ug Take 125 U n[facility] [place], 7-18 mcg by [facility] of Vitamin D3, 11:23: [place]. [place] 125 mcg 03 [facility] (5,000 Branch unit) tablet Cholecalcif 2023-0 Yes 125ug Take 125 [facility] n[facility] [place], 7-18 mcg by [facility] of Vitamin D3, 11:23: mouth. [place] 125 mcg 03 [facility] (5,000 Branch unit) tablet Cholecalcif 2023-0 Yes 125ug Take 125 U n[facility] [place], 7-18 mcg by [facility] of Vitamin D3, 11:23: mouth. [place] 125 mcg 03 [facility] (5,000 Branch unit) tablet Cholecalcif 2023-0 Yes 125ug Take 125 U n[facility] [place], 7-18 mcg by [facility] of Vitamin D3, 11:23: mouth. [place] 125 mcg 03 [facility] (5,000 Branch unit) tablet Cholecalcif 2023-0 Yes 125ug Take 125 [facility] n[facility] [place], 7-18 mcg by [facility] of Vitamin D3, 11:23: mouth. [place] 125 mcg 03 [facility] (5,000 Branch unit) tablet Cholecalcif 2023-0 Yes 125ug Take 125 U n[facility] [place], 7-18 mcg by [facility] of Vitamin D3, 11:23: mouth. [place] 125 mcg 03 [facility] (5,000 Branch unit) tablet Cholecalcif 2023-0 Yes 125ug Take 125 [facility] n[facility] [place], 7-18 mcg by [facility] of Vitamin D3, 11:23: mouth. [place] 125 mcg 03 [facility] (5,000 Branch unit) tablet Cholecalcif 2023-0 Yes 125ug Take 125 [facility] n[facility] [place], 7-18 mcg by [facility] of Vitamin D3, 11:23: mouth. [place] 125 mcg 03 [facility] (5,000 Branch unit) tablet Cholecalcif 2023-0 Yes 125ug Take 125 [facility] n[facility] [place], 7-18 mcg by [facility] of Vitamin D3, 11:23: mouth. [place] 125 mcg 03 [facility] (5,000 Branch unit) tablet Cholecalcif 2023-0 Yes 125ug Take 125 [facility] n[facility] [place], 7-18 mcg by [facility] of Vitamin D3, 11:23: mouth. [place] 125 mcg 03 [facility] (5,000 Branch unit) tablet Cholecalcif 2023-0 Yes 125ug Take 125 [facility] n[facility] [place], 7-18 mcg by [facility] of Vitamin D3, 11:23: mouth. [place] 125 mcg 03 [facility] (5,000 Branch unit) tablet Cholecalcif 2023-0 Yes 125ug Take 125 [facility] n[facility] [place], 7-18 mcg by [facility] of Vitamin D3, 11:23: mouth. [place] 125 mcg 03 [facility] (5,000 Branch unit) tablet Cholecalcif 2023-0 Yes 125ug Take 125 U n[facility] [place], 7-18 mcg by [facility] of Vitamin D3, 11:23: mouth. [place] 125 mcg 03 [facility] (5,000 Branch unit) tablet Cholecalcif 2023-0 Yes 125ug Take 125 [facility] n[facility] [place], 7-18 mcg by it[facility] of Vitamin D3, 11:23: mouth. [place] 125 mcg 03 [facility] (5,000 Branch unit) tablet Cholecalcif 2023-0 Yes 125ug Take 125 [facility] n[facility] [place], 7-18 mcg by [facility] of Vitamin D3, 11:23: mouth. [place] 125 mcg 03 [facility] (5,000 Branch unit) tablet Cholecalcif 2023-0 Yes 125ug Take 125 [facility] n[facility] [place], 7-18 mcg by it[facility] of Vitamin D3, 11:23: mouth. [place] 125 mcg 03 [facility] (5,000 Branch unit) tablet Cholecalcif 2023-0 Yes 125ug Take 125 [facility] n[facility] [place], 7-18 mcg by [facility] of Vitamin D3, 11:23: mouth. [place] 125 mcg 03 [facility] (5,000 Branch unit) tablet Cholecalcif 2023-0 Yes 125ug Take 125 [facility] n[facility] [place], 7-18 mcg by it[facility] of Vitamin D3, 11:23: mouth. [place] 125 mcg 03 [facility] (5,000 Branch unit) tablet Cholecalcif 2023-0 Yes 125ug Take 125 U n[facility] [place], 7-18 mcg by ity of Vitamin D3, 11:23: mouth. [place] 125 mcg 03 [facility] (5,000 Branch unit) tablet Cholecalcif 2023-0 Yes 125ug Take 125 [facility] n[facility] [place], 7-18 mcg by it[facility] of Vitamin D3, 11:23: mouth. [place] 125 mcg 03 [facility] (5,000 Branch unit) tablet Cholecalcif 2023-0 Yes 125ug Take 125 [facility] n[facility] [place], 7-18 mcg by it[facility] of Vitamin D3, 11:23: mouth. [place] 125 mcg 03 [facility] (5,000 Branch unit) tablet Cholecalcif 2023-0 Yes 125ug Take 125 U n[facility] [place], 7-18 mcg by ity of Vitamin D3, 11:23: mouth. [place] 125 mcg 03 [facility] (5,000 Branch unit) tablet Cholecalcif 2023-0 Yes 125ug Take 125 U n[facility] [place], 7-18 mcg by ity of Vitamin D3, 11:23: mouth. [place] 125 mcg 03 [facility] (5,000 Branch unit) tablet Cholecalcif 2023-0 Yes 125ug Take 125 U n[facility] [place], 7-18 mcg by ity of Vitamin D3, 11:23: mouth. [place] 125 mcg 03 [facility] (5,000 Branch unit) tablet Cholecalcif 2023-0 Yes 125ug Take 125 U n[facility] [place], 7-18 mcg by ity of Vitamin D3, 11:23: mouth. [place] 125 mcg 03 [facility] (5,000 Branch unit) tablet Cholecalcif 2023-0 Yes 125ug Take 125 [facility] n[facility] [place], 7-18 mcg by ity of Vitamin D3, 11:23: mouth. [place] 125 mcg 03 [facility] (5,000 Branch unit) tablet Cholecalcif 2023-0 Yes 125ug Take 125 [facility] n[facility] [place], 7-18 mcg by ity of Vitamin D3, 11:23: mouth. [place] 125 mcg 03 [facility] (5,000 Branch unit) tablet Cholecalcif 2023-0 Yes 125ug Take 125 [facility] n[facility] [place], 7-18 mcg by it[facility] of Vitamin D3, 11:23: mouth. [place] 125 mcg 03 [facility] (5,000 Branch unit) tablet Cholecalcif 2023-0 Yes 125ug Take 125 [facility] n[facility] [place], 7-18 mcg by [facility]y of Vitamin D3, 11:23: mouth. [place] 125 mcg 03 [facility] (5,000 Branch unit) tablet Cholecalcif 2023-0 Yes 125ug Take 125 U n[facility] [place], 7-18 mcg by it[facility] of Vitamin D3, 11:23: mouth. [place] 125 mcg 03 [facility] (5,000 Branch unit) tablet Cholecalcif 2023-0 Yes 125ug Take 125 [facility] n[facility] [place], 7-18 mcg by [facility] of Vitamin D3, 11:23: mouth. [place] 125 mcg 03 [facility] (5,000 Branch unit) tablet Cholecalcif 2023-0 Yes 125ug Take 125 [facility] n[facility] [place], 7-18 mcg by ity of Vitamin D3, 11:23: mouth. [place] 125 mcg 03 [facility] (5,000 Branch unit) tablet Cholecalcif 2023-0 Yes 125ug Take 125 [facility] n[facility] [place], 7-18 mcg by [facility] of Vitamin D3, 11:23: mouth. [place] 125 mcg 03 [facility] (5,000 Branch unit) tablet Cholecalcif 2023-0 Yes 125ug Take 125 [facility] n[facility] [place], 7-18 mcg by it[facility] of Vitamin D3, 11:23: mouth. [place] 125 mcg 03 [facility] (5,000 Branch unit) tablet Cholecalcif 2023-0 Yes 125ug Take 125 U n[facility] [place], 7-18 mcg by ity of Vitamin D3, 11:23: mouth. [place] 125 mcg 03 [facility] (5,000 Branch unit) tablet Cholecalcif 2023-0 Yes 125ug Take 125 U n[facility] [place], 7-18 mcg by it[facility] of Vitamin D3, 11:23: mouth. [place] 125 mcg 03 [facility] (5,000 Branch unit) tablet Cholecalcif 2023-0 Yes 125ug Take 125 U n[facility] [place], 7-18 mcg by ity of Vitamin D3, 11:23: mouth. [place] 125 mcg 03 [facility] (5,000 Branch unit) tablet Cholecalcif 2023-0 Yes 125ug Take 125 [facility] n[facility] [place], 7-18 mcg by it[facility] of Vitamin D3, 11:23: mouth. [place] 125 mcg 03 [facility] (5,000 Branch unit) tablet Cholecalcif 2023-0 Yes 125ug Take 125 [facility] [place], 7-18 mcg by it[facility] of Vitamin D3, 11:23: mouth. [place] 125 mcg 03 [facility] (5,000 Branch unit) tablet Cholecalcif 2023-0 Yes 125ug Take 125 U n[facility] [place], 7-18 mcg by ity of Vitamin D3, 11:23: mouth. [place] 125 mcg 03 [facility] (5,000 Branch unit) tablet Cholecalcif Yes 125ug Take 125 [facility] n[facility] [place], 7-18 mcg by ity of Vitamin D3, 11:23: mouth. [place] 125 mcg 03 [facility] (5,000 Branch unit) tablet multivitami Yes 1{tbl} Take 1 [facility] n tablet 7-18 tablet by ity of 11:23: mouth in [place] the Medical morning. Branch multivitami Yes 1{tbl} Take 1 [facility] n tablet 7-18 tablet by ity of 11:23: mouth in [place] the Medical morning. Branch multivitami Yes 1{tbl} Take 1 [facility] n tablet 7-18 tablet by ity of 11:23: mouth in [place] [address] the Medical morning. Branch multivitami Yes 1{tbl} Take 1 [facility] n tablet 7-18 tablet by ity of 11:23: mouth in [place] [address] the Medical morning. Branch multivitami Yes 1{tbl} Take 1 [facility] n tablet 7-18 tablet by ity of 11:23: mouth in [place] the Medical morning. Branch multivitami Yes 1{tbl} Take 1 [facility] n tablet 7-18 tablet by ity of 11:23: mouth in [place] the Medical morning. Branch multivitami Yes 1{tbl} Take 1 [facility] n tablet 7-18 tablet by ity of 11:23: mouth in [place] the Medical morning. Branch multivitami Yes 1{tbl} Take 1 [facility] n tablet 7-18 tablet by ity of 11:23: mouth in [place] the Medical morning. Branch multivitami 0 Yes 1{tbl} Take 1 [facility] n tablet 7-18 tablet by ity of 11:23: mouth in [place] [address] the Medical morning. Branch multivitami Yes 1{tbl} Take 1 [facility] n tablet 7-18 tablet by ity of 11:23: mouth in [place] the Medical morning. Branch multivitami 2023-0 Yes 1{tbl} Take 1 [facility] n tablet 7-18 tablet by ity of 11:23: mouth in [place] 02 the Medical morning. Branch multivitami 0 Yes 1{tbl} Take 1 [facility] n tablet 7-18 tablet by ity of 11:23: mouth in [place] 02 the Medical morning. Branch multivitami Yes 1{tbl} Take 1 [facility] n tablet 7-18 tablet by ity of 11:23: mouth in [place] 02 the Medical morning. Branch multivitami Yes 1{tbl} Take 1 [facility] n tablet 7-18 tablet by ity of 11:23: mouth in [place] 02 the Medical morning. Branch multivitami 0 Yes 1{tbl} Take 1 [facility] n tablet 7-18 tablet by ity of 11:23: mouth in [place] 02 the Medical morning. Branch multivitami Yes 1{tbl} Take 1 [facility] n tablet 7-18 tablet by ity of 11:23: mouth in [place] the Medical morning. Branch multivitami Yes 1{tbl} Take 1 [facility] n tablet 7-18 tablet by ity of 11:23: mouth in [place] 02 the Medical morning. Branch multivitami Yes 1{tbl} Take 1 [facility] n tablet 7-18 tablet by ity of 11:23: mouth in [place] 02 the Medical morning. Branch multivitami Yes 1{tbl} Take 1 [facility] n tablet 7-18 tablet by ity of 11:23: mouth in [place] the Medical morning. Branch multivitami 0 Yes 1{tbl} Take 1 [facility] n tablet 7-18 tablet by ity of 11:23: mouth in [place] 02 the Medical morning. Branch multivitami 0 Yes 1{tbl} Take 1 [facility] n tablet 7-18 tablet by ity of 11:23: mouth in [place] 02 the Medical morning. Branch multivitami 0 Yes 1{tbl} Take 1 [facility] n tablet 7-18 tablet by ity of 11:23: mouth in [place] 02 the Medical morning. Branch multivitami 0 Yes 1{tbl} Take 1 [facility] n tablet 7-18 tablet by [facility]y of 11:23: mouth in [place] 02 the Medical morning. Branch multivitami Yes 1{tbl} Take 1 [facility] n tablet 7-18 tablet by ity of 11:23: mouth in [place] 02 the Medical morning. Branch multivitami Yes 1{tbl} Take 1 [facility] n tablet 7-18 tablet by ity of 11:23: mouth in [place] the Medical morning. Branch multivitami Yes 1{tbl} Take 1 [facility] tablet 7-18 tablet by ity of 11:23: mouth in [place] the Medical morning. Branch multivitami Yes 1{tbl} Take 1 [facility] n tablet 7-18 tablet by ity of 11:23: mouth in [place] the Medical morning. Branch multivitami Yes 1{tbl} Take 1 [facility] n tablet 7-18 tablet by ity of 11:23: mouth in [place] the Medical morning. Branch multivitami Yes 1{tbl} Take 1 [facility] n tablet 7-18 tablet by ity of 11:23: mouth in [place] the Medical morning. Branch multivitami Yes 1{tbl} Take 1 [facility] n tablet 7-18 tablet by ity of 11:23: mouth in [place] the Medical morning. Branch multivitami Yes 1{tbl} Take 1 [facility] n tablet 7-18 tablet by ity of 11:23: mouth in [place] the Medical morning. Branch multivitami Yes 1{tbl} Take 1 [facility] n tablet 7-18 tablet by ity of 11:23: mouth in [place] the Medical morning. Branch multivitami Yes 1{tbl} Take 1 [facility] n tablet 7-18 tablet by ity of 11:23: mouth in [place] the Medical morning. Branch multivitami Yes 1{tbl} Take 1 [facility] n tablet 7-18 tablet by ity of 11:23: mouth in [place] the Medical morning. Branch multivitami Yes 1{tbl} Take 1 [facility] n tablet 7-18 tablet by ity of 11:23: mouth in [place] 02 the Medical morning. Branch multivitami 2022-0 Yes 1{tbl} Take 1 [facility] tablet 7-18 tablet by ity of 11:23: mouth in [place] 02 the Medical morning. Branch multivitami 2022-0 Yes 1{tbl} Take 1 [facility] tablet 7-18 tablet by ity of 11:23: mouth in [place] 02 the Medical morning. Branch multivitami 2022-0 Yes 1{tbl} Take 1 [facility] tablet 7-18 tablet by ity of 11:23: mouth in [place] 02 the Medical morning. Branch multivitami 2022-0 Yes 1{tbl} Take 1 [facility] tablet 7-18 tablet by ity of 11:23: mouth in [place] the Medical morning. Branch multivitami 2022-0 Yes 1{tbl} Take 1 [facility] tablet 7-18 tablet by [facility]y of 11:23: mouth in [place] the Medical morning. Branch multivitami 2022-0 Yes 1{tbl} Take 1 [facility] tablet 7-18 tablet by [facility]y of 11:23: mouth in [place] the Medical morning. Branch furosemide 3-0 Yes [id number] 40mg Take 1 [facility] 40 mg 7-13 tablet by [facility] of tablet 00:00: mouth in [place] 00 the Medical morning. Branch furosemide 3-0 Yes [id number] 40mg Take 1 [facility] 40 mg 7-13 tablet by [facility] of tablet 00:00: mouth in [place] 00 the Medical morning. Branch furosemide 2023-0 Yes [id number] 40mg Take 1 [facility] 40 mg 7-13 tablet by [facility] of tablet 00:00: mouth in [place] 00 the Medical morning. Branch furosemide 2023-0 Yes [id number] 40mg Take 1 [facility] 40 mg 7-13 tablet by [facility] of tablet 00:00: mouth in [place] 00 the Medical morning. Branch furosemide 2023-0 Yes [id number] 40mg Take 1 [facility] 40 mg 7-13 tablet by [facility] of tablet 00:00: mouth in [place] 00 the Medical morning. Branch furosemide 2023-0 Yes [id number] 40mg Take 1 [facility] 40 mg 7-13 tablet by [facility] of tablet 00:00: mouth in [place] 00 the Medical morning. Branch furosemide 2023-0 Yes [id number] 40mg Take 1 [facility] 40 mg 7-13 tablet by [facility] of tablet 00:00: mouth in [place] 00 the Medical morning. Branch furosemide 2023-0 Yes [id number] 40mg Take 1 [facility] 40 mg 7-13 tablet by [facility] of tablet 00:00: mouth in [place] the Medical morning. Branch furosemide 2023-0 Yes [id number] 40mg Take 1 [facility] 40 mg 7-13 tablet by [facility] of tablet 00:00: mouth in [place] 00 the Medical morning. Branch furosemide 2023-0 Yes [id number] 40mg Take 1 [facility] 40 mg 7-13 tablet by [facility] of tablet 00:00: mouth in [place] the Medical morning. Branch furosemide 2023-0 Yes [id number] 40mg Take 1 [facility] 40 mg 7-13 tablet by [facility] of tablet 00:00: mouth in [place] the Medical morning. Branch furosemide 2023-0 Yes [id number] 40mg Take 1 [facility] 40 mg 7-13 tablet by ity of tablet 00:00: mouth in [place] the Medical morning. Branch furosemide 2023-0 Yes [id number] 40mg Take 1 [facility] 40 mg 7-13 tablet by [facility] tablet 00:00: mouth in [place] the Medical morning. Branch furosemide 2023-0 Yes [id number] 40mg Take 1 [facility] 40 mg 7-13 tablet by [facility] of tablet 00:00: mouth in [place] the Medical morning. Branch furosemide 2023-0 Yes [id number] 40mg Take 1 [facility] 40 mg 7-13 tablet by [facility] of tablet 00:00: mouth in [place] the Medical morning. Branch furosemide 2023-0 Yes [id number] 40mg Take 1 [facility] 40 mg 7-13 tablet by [facility] of tablet 00:00: mouth in [place] 00 the Medical morning. Branch furosemide 2023-0 Yes [id number] 40mg Take 1 [facility] 40 mg 7-13 tablet by [facility] of tablet 00:00: mouth in [place] 00 the Medical morning. Branch furosemide 2023-0 Yes [id number] 40mg Take 1 [facility] 40 mg 7-13 tablet by [facility] of tablet 00:00: mouth in [place] 00 the Medical morning. Branch furosemide 2023-0 Yes [id number] 40mg Take 1 [facility] 40 mg 7-13 tablet by [facility] of tablet 00:00: mouth in [place] 00 the Medical morning. Branch furosemide 2023-0 Yes [id number] 40mg Take 1 [facility] 40 mg 7-13 tablet by [facility] of tablet 00:00: mouth in [place] the Medical morning. Branch furosemide 2023-0 Yes [id number] 40mg Take 1 [facility] 40 mg 7-13 tablet by [facility] of tablet 00:00: mouth in [place] the Medical morning. Branch furosemide 2023-0 Yes [id number] 40mg Take 1 [facility] 40 mg 7-13 tablet by [facility] of tablet 00:00: mouth in [place] the Medical morning. Branch furosemide 2023-0 Yes [id number] 40mg Take 1 [facility] 40 mg 7-13 tablet by [facility] of tablet 00:00: mouth in [place] the Medical morning. Branch furosemide 2023-0 Yes [id number] 40mg Take 1 [facility] 40 mg 7-13 tablet by [facility] of tablet 00:00: mouth in [place] the Medical morning. Branch furosemide 2023-0 Yes [id number] 40mg Take 1 [facility] 40 mg 7-13 tablet by [facility] of tablet 00:00: mouth in [place] the Medical morning. Branch furosemide 2023-0 Yes [id number] 40mg Take 1 [facility] 40 mg 7-13 tablet by [facility] of tablet 00:00: mouth in [place] the Medical morning. Branch furosemide 2023-0 Yes [id number] 40mg Take 1 [facility] 40 mg 7-13 tablet by [facility] of tablet 00:00: mouth in [place] the Medical morning. Branch furosemide 2023-0 Yes [id number] 40mg Take 1 [facility] 40 mg 7-13 tablet by [facility] of tablet 00:00: mouth in [place] the Medical morning. Branch furosemide 2023-0 Yes [id number] 40mg Take 1 [facility] 40 mg 7-13 tablet by [facility] of tablet 00:00: mouth in [place] the Medical morning. Branch furosemide 2023-0 Yes [id number] 40mg Take 1 [facility] 40 mg 7-13 tablet by [facility] of tablet 00:00: mouth in [place] 00 the Medical morning. Branch furosemide 2023-0 Yes [id number] 40mg Take 1 [facility] 40 mg 7-13 tablet by [facility] of tablet 00:00: mouth in [place] 00 the Medical morning. Branch furosemide 2023-0 Yes [id number] 40mg Take 1 [facility] 40 mg 7-13 tablet by [facility] of tablet 00:00: mouth in [place] the Medical morning. Branch furosemide 2023-0 Yes [id number] 40mg Take 1 [facility] 40 mg 7-13 tablet by [facility] of tablet 00:00: mouth in [place] the Medical morning. Branch furosemide 2023-0 Yes [id number] 40mg Take 1 [facility] 40 mg 7-13 tablet by [facility] of tablet 00:00: mouth in [place] the Medical morning. Branch furosemide 2023-0 Yes [id number] 40mg Take 1 [facility] 40 mg 7-13 tablet by [facility] of tablet 00:00: mouth in [place] the Medical morning. Branch furosemide 2023-0 Yes [id number] 40mg Take 1 [facility] 40 mg 7-13 tablet by [facility] of tablet 00:00: mouth in [place] the Medical morning. Branch furosemide 2023-0 Yes [id number] 40mg Take 1 [facility] 40 mg 7-13 tablet by [facility] of tablet 00:00: mouth in [place] the Medical morning. Branch ezetimibe 3-0 Yes [id number] 10mg Take 1 [facility] (ZETIA) 10 7-03 tablet by [facility] of mg tablet 00:00: mouth in [facility] the Medical morning. Branch ezetimibe 3-0 Yes [id number] 10mg Take 1 [facility] (ZETIA) 10 7-03 tablet by [facility] of mg tablet 00:00: mouth in [facility] 00 the Medical morning. Branch ezetimibe 2023-0 Yes [id number] 10mg Take 1 [facility] (ZETIA) 10 7-03 tablet by [facility] of mg tablet 00:00: mouth in [facility] 00 the Medical morning. Branch ezetimibe 2023-0 Yes [id number] 10mg Take 1 [facility] (ZETIA) 10 7-03 tablet by [facility] of mg tablet 00:00: mouth in [facility] 00 the Medical morning. Branch ezetimibe 2023-0 Yes [id number] 10mg Take 1 [facility] (ZETIA) 10 7-03 tablet by [facility] of mg tablet 00:00: mouth in [facility] 00 the Medical morning. Branch ezetimibe 2023-0 Yes [id number] 10mg Take 1 [facility] (ZETIA) 10 7-03 tablet by [facility] mg tablet 00:00: mouth [place] 00 the Medical morning. Branch ezetimibe 2023-0 Yes [id number] 10mg Take 1 [facility] (ZETIA) 10 7-03 tablet by [facility] of mg tablet 00:00: mouth [place] 00 the Medical morning. Branch ezetimibe 2023-0 Yes [id number] 10mg Take 1 [facility] (ZETIA) 10 7-03 tablet by [facility] of mg tablet 00:00: mouth [place] 00 the Medical morning. Branch ezetimibe 2023-0 Yes [id number] 10mg Take 1 [facility] (ZETIA) 10 7-03 tablet by [facility] of mg tablet 00:00: mouth [place] 00 the Medical morning. Branch ezetimibe 2023-0 Yes [id number] 10mg Take 1 [facility] (ZETIA) 10 7-03 tablet by [facility] of mg tablet 00:00: mouth [place] 00 the Medical morning. Branch ezetimibe 2023-0 Yes [id number] 10mg Take 1 [facility] (ZETIA) 10 7-03 tablet by [facility] of mg tablet 00:00: mouth [place] 00 the Medical morning. Branch ezetimibe 2023-0 Yes [id number] 10mg Take 1 [facility] (ZETIA) 10 7-03 tablet by [facility] of mg tablet 00:00: mouth [place] 00 the Medical morning. Branch ezetimibe 2023-0 Yes [id number] 10mg Take 1 [facility] (ZETIA) 10 7-03 tablet by [facility] mg tablet 00:00: mouth [place] 00 the Medical morning. Branch ezetimibe 2023-0 Yes [id number] 10mg Take 1 [facility] (ZETIA) 10 7-03 tablet by [facility] of mg tablet 00:00: mouth [place] 00 the Medical morning. Branch ezetimibe 2023-0 Yes [id number] 10mg Take 1 [facility] (ZETIA) 10 7-03 tablet by [facility] of mg tablet 00:00: mouth [place] 00 the Medical morning. Branch ezetimibe 2023-0 Yes [id number] 10mg Take 1 [facility] (ZETIA) 10 7-03 tablet by [facility] of mg tablet 00:00: mouth [place] 00 the Medical morning. Branch ezetimibe 2023-0 Yes [id number] 10mg Take 1 [facility] (ZETIA) 10 7-03 tablet by [facility] of mg tablet 00:00: mouth [place] 00 the Medical morning. Branch ezetimibe 3-0 Yes [id number] 10mg Take 1 [facility] (ZETIA) 10 7-03 tablet by [facility] of mg tablet 00:00: mouth [place] 00 the Medical morning. Branch ezetimibe 2023-0 Yes [id number] 10mg Take 1 [facility] (ZETIA) 10 7-03 tablet by [facility] of mg tablet 00:00: mouth [place] 00 the Medical morning. Branch ezetimibe 3-0 Yes [id number] 10mg Take 1 [facility] (ZETIA) 10 7-03 tablet by [facility] of mg tablet 00:00: mouth [place] 00 the Medical morning. Branch ezetimibe 3-0 Yes [id number] 10mg Take 1 [facility] (ZETIA) 10 7-03 tablet by [facility] of mg tablet 00:00: mouth [place] 00 the Medical morning. Branch ezetimibe 3-0 Yes [id number] 10mg Take 1 [facility] (ZETIA) 10 7-03 tablet by [facility] of mg tablet 00:00: mouth [place] 00 the Medical morning. Branch ezetimibe 3-0 Yes [id number] 10mg Take 1 [facility] (ZETIA) 10 7-03 tablet by [facility] of mg tablet 00:00: mouth [place] 00 the Medical morning. Branch ezetimibe 3-0 Yes [id number] 10mg Take 1 [facility] (ZETIA) 10 7-03 tablet by [facility] of mg tablet 00:00: mouth [place] 00 the Medical morning. Branch ezetimibe 3-0 Yes [id number] 10mg Take 1 [facility] (ZETIA) 10 7-03 tablet by [facility] of mg tablet 00:00: mouth [place] 00 the Medical morning. Branch ezetimibe 2023-0 Yes [id number] 10mg Take 1 [facility] (ZETIA) 10 7-03 tablet by [facility] of mg tablet 00:00: mouth [place] 00 the Medical morning. Branch ezetimibe 2023-0 3- No [id number] 10mg Take 1 [facility] (ZETIA) 10 08-17 tablet by [facility] of mg tablet 00:00: 00:00 mouth in [place] 00 :00 the Medical morning. Branch ezetimibe 2022-0 3- No [id number] 10mg Take 1 [facility] (ZETIA) 10 08-17 tablet by [facility] of mg tablet 00:00: 00:00 mouth in [place] 00 :00 the Medical morning. Branch ezetimibe 2022-0 3- No [id number] 10mg Take 1 [facility] (ZETIA) 10 08-17 tablet by [facility] of mg tablet 00:00: 00:00 mouth in [place] 00 :00 the Medical morning. Branch GLIMEPIRIDE 2023-0 Yes [id number] TAKE 1 [facility] 2 mg tablet 6-23 TABLET BY [facility] of 00:00: MOUTH [place] 00 EVERY DAY Medical WITH Branch BREAKFAST GLIMEPIRIDE 2023-0 Yes [id number] TAKE 1 [facility] 2 mg tablet 6-23 TABLET BY [facility] of 00:00: MOUTH [place] 00 EVERY DAY Medical WITH Branch BREAKFAST GLIMEPIRIDE 2023-0 Yes [id number] TAKE 1 [facility] 2 mg tablet 6-23 TABLET BY [facility] of 00:00: MOUTH [place] 00 EVERY DAY Medical WITH Branch BREAKFAST GLIMEPIRIDE 2023-0 Yes [id number] TAKE 1 [facility] 2 mg tablet 6-23 TABLET BY [facility] of 00:00: MOUTH [place] 00 EVERY DAY Medical WITH Branch BREAKFAST GLIMEPIRIDE 2023-0 Yes [id number] TAKE 1 [facility] 2 mg tablet 6-23 TABLET BY [facility] of 00:00: MOUTH [place] 00 EVERY DAY Medical WITH Branch BREAKFAST GLIMEPIRIDE 2023-0 Yes [id number] TAKE 1 [facility] 2 mg tablet 6-23 TABLET BY [facility] of 00:00: MOUTH [place] 00 EVERY DAY Medical WITH Branch BREAKFAST GLIMEPIRIDE 2023-0 Yes [id number] TAKE 1 [facility] 2 mg tablet 6-23 TABLET BY [facility] of 00:00: MOUTH [place] 00 EVERY DAY Medical WITH Branch BREAKFAST GLIMEPIRIDE 2023-0 Yes [id number] TAKE 1 [facility] 2 mg tablet 6-23 TABLET BY it[facility] of 00:00: MOUTH [place] 00 EVERY DAY Medical WITH Branch BREAKFAST GLIMEPIRIDE 2023-0 Yes [id number] TAKE 1 [facility] 2 mg tablet 6-23 TABLET BY it[facility] of 00:00: MOUTH [place] 00 EVERY DAY Medical WITH Branch BREAKFAST GLIMEPIRIDE 3-0 Yes [id number] TAKE 1 [facility] 2 mg tablet 6-23 TABLET BY ity of 00:00: MOUTH [place] 00 EVERY DAY Medical WITH Branch BREAKFAST GLIMEPIRIDE 3-0 Yes [id number] TAKE 1 [facility] 2 mg tablet 6-23 TABLET BY ity of 00:00: MOUTH [place] 00 EVERY DAY Medical WITH Branch BREAKFAST GLIMEPIRIDE 3-0 Yes [id number] TAKE 1 [facility] 2 mg tablet 6-23 TABLET BY ity of 00:00: MOUTH [place] 00 EVERY DAY Medical WITH Branch BREAKFAST GLIMEPIRIDE 3-0 Yes [id number] TAKE 1 [facility] 2 mg tablet 6-23 TABLET BY ity of 00:00: MOUTH [place] 00 EVERY DAY Medical WITH Branch BREAKFAST GLIMEPIRIDE 3-0 2023- No [id number] TAKE 1 [facility] 2 mg tablet 6-23 07-22 TABLET BY it y of 00:00: 00:00 MOUTH [place] 00 :00 EVERY DAY Medical WITH Branch BREAKFAST GLIMEPIRIDE 3-0 2023- No [id number] TAKE 1 [facility] 2 mg tablet 6-23 07-22 TABLET BY it y of 00:00: 00:00 MOUTH [place] 00 :00 EVERY DAY Medical WITH Branch BREAKFAST potassium 3-0 Yes [id number] 10meq Take 1 [facility] chloride 6-12 tablet by [facility] of (KLOR-CON 00:00: mouth in [place] 10) 10 mEq 00 the Medical CR tablet morning. Branch potassium 3-0 Yes [id number] 10meq Take 1 [facility] chloride 6-12 tablet by [facility] of (KLOR-CON 00:00: mouth in [place] 10) 10 mEq 00 the Medical CR tablet morning. Branch potassium 3-0 Yes [id number] 10meq Take 1 [facility] chloride 6-12 tablet by it[facility] of (KLOR-CON 00:00: mouth in [place] 10) 10 mEq 00 the Medical CR tablet morning. Branch potassium 3-0 Yes [id number] 10meq Take 1 [facility] chloride 6-12 tablet by it[facility] of (KLOR-CON 00:00: mouth in [place] 10) 10 mEq 00 the Medical CR tablet morning. Branch potassium 3-0 Yes [id number] 10meq Take 1 [facility] chloride 6-12 tablet by [facility] of (KLOR-CON 00:00: mouth in [place] 10) 10 mEq 00 the Medical CR tablet morning. Branch potassium 3-0 Yes [id number] 10meq Take 1 [facility] chloride 6-12 tablet by [facility] of (KLOR-CON 00:00: mouth in [place] 10) 10 mEq 00 the Medical CR tablet morning. Branch potassium 3-0 Yes [id number] 10meq Take 1 [facility] chloride 6-12 tablet by it[facility] of (KLOR-CON 00:00: mouth in [place] 10) 10 mEq 00 the Medical CR tablet morning. Branch potassium 3-0 Yes [id number] 10meq Take 1 [facility] chloride 6-12 tablet by [facility] of (KLOR-CON 00:00: mouth in [place] 10) 10 mEq 00 the Medical CR tablet morning. Branch potassium 3-0 Yes [id number] 10meq Take 1 [facility] chloride 6-12 tablet by [facility] of (KLOR-CON 00:00: mouth in [place] 10) 10 mEq 00 the Medical CR tablet morning. Branch potassium 3-0 Yes [id number] 10meq Take 1 [facility] chloride 6-12 tablet by [facility] of (KLOR-CON 00:00: mouth in [place] 10) 10 mEq 00 the Medical CR tablet morning. Branch potassium 3-0 Yes [id number] 10meq Take 1 [facility] chloride 6-12 tablet by [facility] of (KLOR-CON 00:00: mouth in [place] 10) 10 mEq 00 the Medical CR tablet morning. Branch potassium 3-0 Yes [id number] 10meq Take 1 [facility] chloride 6-12 tablet by [facility] of (KLOR-CON 00:00: mouth in [place] 10) 10 mEq 00 the Medical CR tablet morning. Branch potassium 2023-0 Yes [id number] 10meq Take 1 [facility] chloride 6-12 tablet by [facility] of (KLOR-CON 00:00: mouth in [place] 10) 10 mEq 00 the Medical CR tablet morning. Branch potassium 2023-0 Yes [id number] 10meq Take 1 [facility] chloride 6-12 tablet by [facility] of (KLOR-CON 00:00: mouth in [place] 10) 10 mEq 00 the Medical CR tablet morning. Branch potassium 2023-0 Yes [id number] 10meq Take 1 [facility] chloride 6-12 tablet by [facility] of (KLOR-CON 00:00: mouth in [place] 10) 10 mEq 00 the Medical CR tablet morning. Branch potassium 2023-0 Yes [id number] 10meq Take 1 [facility] chloride 6-12 tablet by [facility] of (KLOR-CON 00:00: mouth in [place] 10) 10 mEq 00 the Medical CR tablet morning. Branch potassium 2023-0 Yes [id number] 10meq Take 1 [facility] chloride 6-12 tablet by [facility] of (KLOR-CON 00:00: mouth in [place] 10) 10 mEq 00 the Medical CR tablet morning. Branch potassium 2023-0 Yes [id number] 10meq Take 1 [facility] chloride 6-12 tablet by [facility] of (KLOR-CON 00:00: mouth in [place] 10) 10 mEq 00 the Medical CR tablet morning. Branch potassium 2023-0 Yes [id number] 10meq Take 1 [facility] chloride 6-12 tablet by [facility] of (KLOR-CON 00:00: mouth in [place] 10) 10 mEq 00 the Medical CR tablet morning. Branch potassium 3-0 Yes [id number] 10meq Take 1 [facility] chloride 6-12 tablet by [facility] of (KLOR-CON 00:00: mouth [place] 10) 10 mEq 00 the Medical CR tablet morning. Branch potassium 2023-0 Yes [id number] 10meq Take 1 [facility] chloride 6-12 tablet by [facility] of (KLOR-CON 00:00: mouth in [place] 10) 10 mEq 00 the Medical CR tablet morning. Branch potassium 2023-0 Yes [id number] 10meq Take 1 [facility] chloride 6-12 tablet by [facility] of (KLOR-CON 00:00: mouth in [place] 10) 10 mEq 00 the Medical CR tablet morning. Branch potassium 2023-0 Yes [id number] 10meq Take 1 [facility] chloride 6-12 tablet by [facility] of (KLOR-CON 00:00: mouth in [place] 10) 10 mEq 00 the Medical CR tablet morning. Branch potassium 2023-0 Yes [id number] 10meq Take 1 [facility] chloride 6-12 tablet by it[facility] of (KLOR-CON 00:00: mouth in [place] 10) 10 mEq 00 the Medical CR tablet morning. Branch potassium 2023-0 Yes [id number] 10meq Take 1 [facility] chloride 6-12 tablet by ity of (KLOR-CON 00:00: mouth in [place] 10) 10 mEq 00 the Medical CR tablet morning. Branch potassium 2023-0 Yes [id number] 10meq Take 1 [facility] chloride 6-12 tablet by [facility] of (KLOR-CON 00:00: mouth in [place] 10) 10 mEq 00 the Medical CR tablet morning. Branch potassium 2023-0 Yes [id number] 10meq Take 1 [facility] chloride 6-12 tablet by ity of (KLOR-CON 00:00: mouth in [place] 10) 10 mEq 00 the Medical CR tablet morning. Branch potassium 2023-0 Yes [id number] 10meq Take 1 [facility] chloride 6-12 tablet by ity of (KLOR-CON 00:00: mouth in [place] 10) 10 mEq 00 the Medical CR tablet morning. Branch potassium 2023-0 Yes [id number] 10meq Take 1 [facility] chloride 6-12 tablet by [facility] of (KLOR-CON 00:00: mouth in [place] 10) 10 mEq 00 the Medical CR tablet morning. Branch potassium 2023-0 Yes [id number] 10meq Take 1 [facility] chloride 6-12 tablet by [facility] of (KLOR-CON 00:00: mouth in [place] 10) 10 mEq 00 the Medical CR tablet morning. Branch potassium 2023-0 Yes [id number] 10meq Take 1 [facility] chloride 6-12 tablet by [facility]y of (KLOR-CON 00:00: mouth in [place] 10) 10 mEq 00 the Medical CR tablet morning. Branch potassium 2023-0 Yes [id number] 10meq Take 1 [facility] chloride 6-12 tablet by [facility] of (KLOR-CON 00:00: mouth in [place] 10) 10 mEq 00 the Medical CR tablet morning. Branch potassium 2023-0 Yes [id number] 10meq Take 1 [facility] chloride 6-12 tablet by ity of (KLOR-CON 00:00: mouth in [place] 10) 10 mEq 00 the Medical CR tablet morning. Branch potassium 2023-0 Yes [id number] 10meq Take 1 [facility] chloride 6-12 tablet by [facility] of (KLOR-CON 00:00: mouth in [place] 10) 10 mEq 00 the Medical CR tablet morning. Branch potassium 2023-0 Yes [id number] 10meq Take 1 [facility] chloride 6-12 tablet by [facility] of (KLOR-CON 00:00: mouth in [place] 10) 10 mEq 00 the Medical CR tablet morning. Branch potassium 2023-0 Yes [id number] 10meq Take 1 [facility] chloride 6-12 tablet by [facility] of (KLOR-CON 00:00: mouth in [place] 10) 10 mEq 00 the Medical CR tablet morning. Branch potassium 2023-0 Yes [id number] 10meq Take 1 [facility] chloride 6-12 tablet by [facility] of (KLOR-CON 00:00: mouth in [place] 10) 10 mEq 00 the Medical CR tablet morning. Branch potassium 2023-0 Yes [id number] 10meq Take 1 [facility] chloride 6-12 tablet by ity of (KLOR-CON 00:00: mouth in [place] 10) 10 mEq 00 the Medical CR tablet morning. Branch potassium 2023-0 Yes [id number] 10meq Take 1 [facility] chloride 6-12 tablet by [facility] of (KLOR-CON 00:00: mouth in [place] 10) 10 mEq 00 the Medical CR tablet morning. Branch potassium 2023-0 Yes [id number] 10meq Take 1 [facility] chloride 6-12 tablet by [facility] of (KLOR-CON 00:00: mouth in [place] 10) 10 mEq 00 the Medical CR tablet morning. Branch potassium 2023-0 Yes [id number] 10meq Take 1 [facility] chloride 6-12 tablet by [facility] of (KLOR-CON 00:00: mouth in [place] 10) 10 mEq 00 the Medical CR tablet morning. Branch potassium 2023-0 Yes [id number] 10meq Take 1 [facility] chloride 6-12 tablet by [facility] of (KLOR-CON 00:00: mouth in [place] 10) 10 mEq 00 the Medical CR tablet morning. Branch potassium 2023-0 Yes [id number] 10meq Take 1 [facility] chloride 6-12 tablet by [facility] of (KLOR-CON 00:00: mouth in [place] 10) 10 mEq 00 the Medical CR tablet morning. Branch potassium 2023-0 Yes [id number] 10meq Take 1 [facility] chloride 6-12 tablet by [facility] of (KLOR-CON 00:00: mouth in [place] 10) 10 mEq 00 the Medical CR tablet morning. Branch potassium 2022-0 Yes [id number] 10meq Take 1 [facility] chloride 6-12 tablet by [facility] of (KLOR-CON 00:00: mouth in [place] 10) 10 mEq 00 the Medical CR tablet morning. Branch potassium 2022-0 Yes [id number] 10meq Take 1 [facility] chloride 6-12 tablet by [facility] of (KLOR-CON 00:00: mouth in [place] 10) 10 mEq 00 the Medical CR tablet morning. Branch potassium 2022-0 Yes [id number] 10meq Take 1 [facility] chloride 6-12 tablet by [facility] of (KLOR-CON 00:00: mouth in [place] 10) 10 mEq 00 the Medical CR tablet morning. Branch potassium 2022-0 Yes [id number] 10meq Take 1 [facility] chloride 6-12 tablet by [facility] of (KLOR-CON 00:00: mouth in [place] 10) 10 mEq 00 the Medical CR tablet morning. Branch potassium 2022-0 Yes [id number] 10meq Take 1 [facility] chloride 6-12 tablet by [facility] of (KLOR-CON 00:00: mouth in [place] 10) 10 mEq 00 the Medical CR tablet morning. Branch potassium 2022-0 Yes [id number] 10meq Take 1 [facility] chloride 6-12 tablet by [facility] of (KLOR-CON 00:00: mouth in [place] 10) 10 mEq 00 the Medical CR tablet morning. Branch potassium 2022-0 Yes [id number] 10meq Take 1 [facility] chloride 6-12 tablet by [facility] of (KLOR-CON 00:00: mouth in [place] 10) 10 mEq 00 the Medical CR tablet morning. Branch potassium 2022-0 Yes [id number] 10meq Take 1 [facility] chloride 6-12 tablet by [facility] of (KLOR-CON 00:00: mouth in [place] 10) 10 mEq 00 the Medical CR tablet morning. Branch potassium 3-0 Yes [id number] 10meq Take 1 [facility] chloride 6-12 tablet by [facility] of (KLOR-CON 00:00: mouth in [place] 10) 10 mEq 00 the Medical CR tablet morning. Branch glimepiride 2022-0 Yes [id number] 2mg Take 1 [facility] 2 mg tablet 6-05 tablet by [facility]y of 00:00: mouth [place] 00 daily with Medical breakfast. Branch ezetimibe 2023-0 Yes [id number] 10mg Take 1 [facility] (ZETIA) 10 6-05 tablet by [facility] of mg tablet 00:00: mouth in [place] 00 the Medical morning. Branch glimepiride 3-0 Yes [id number] 2mg Take 1 [facility] 2 mg tablet 6-05 tablet by [facility]y of 00:00: mouth [place] 00 daily with Medical breakfast. Branch ezetimibe 3-0 Yes [id number] 10mg Take 1 [facility] (ZETIA) 10 6-05 tablet by [facility] of mg tablet 00:00: mouth in [place] 00 the Medical morning. Branch glimepiride 3-0 Yes [id number] 2mg Take 1 [facility] 2 mg tablet 6-05 tablet by [facility] of 00:00: mouth [place] 00 daily with Medical breakfast. Branch ezetimibe 3-0 Yes [id number] 10mg Take 1 [facility] (ZETIA) 10 6-05 tablet by [facility] of mg tablet 00:00: mouth in [place] 00 the Medical morning. Branch glimepiride 3-0 Yes [id number] 2mg Take 1 [facility] 2 mg tablet 6-05 tablet by [facility]y of 00:00: mouth [place] 00 daily with Medical breakfast. Branch ezetimibe 3-0 Yes [id number] 10mg Take 1 [facility] (ZETIA) 10 6-05 tablet by [facility] of mg tablet 00:00: mouth in [place] 00 the Medical morning. Branch glimepiride 3-0 Yes [id number] 2mg Take 1 [facility] 2 mg tablet 6-05 tablet by [facility]y of 00:00: mouth [place] 00 daily with Medical breakfast. Branch ezetimibe 2023-0 Yes [id number] 10mg Take 1 [facility] (ZETIA) 10 6-05 tablet by [facility] of mg tablet 00:00: mouth in [place] 00 the Medical morning. Branch glimepiride 2023-0 Yes [id number] 2mg Take 1 [facility] 2 mg tablet 6-05 tablet by [facility] of 00:00: mouth [place] 00 daily with Medical breakfast. Branch ezetimibe 2023-0 Yes [id number] 10mg Take 1 [facility] (ZETIA) 10 6-05 tablet by [facility] of mg tablet 00:00: mouth in [place] 00 the Medical morning. Branch glimepiride 3-0 Yes [id number] 2mg Take 1 [facility] 2 mg tablet 6-05 tablet by ity of 00:00: mouth [place] 00 daily with Medical breakfast. Branch ezetimibe 3-0 Yes [id number] 10mg Take 1 [facility] (ZETIA) 10 6-05 tablet by [facility] of mg tablet 00:00: mouth in [place] 00 the Medical morning. Branch glimepiride 3-0 Yes [id number] 2mg Take 1 [facility] 2 mg tablet 6-05 tablet by ity of 00:00: mouth [place] 00 daily with Medical breakfast. Branch ezetimibe 3-0 Yes [id number] 10mg Take 1 [facility] (ZETIA) 10 6-05 tablet by [facility] of mg tablet 00:00: mouth in [place] 00 the Medical morning. Branch glimepiride 3-0 Yes [id number] 2mg Take 1 [facility] 2 mg tablet 6-05 tablet by ity of 00:00: mouth [place] 00 daily with Medical breakfast. Branch ezetimibe 3-0 Yes [id number] 10mg Take 1 [facility] (ZETIA) 10 6-05 tablet by [facility] of mg tablet 00:00: mouth in [place] 00 the Medical morning. Branch glimepiride 3-0 Yes [id number] 2mg Take 1 [facility] 2 mg tablet 6-05 tablet by ity of 00:00: mouth [place] 00 daily with Medical breakfast. Branch ezetimibe 3-0 Yes [id number] 10mg Take 1 [facility] (ZETIA) 10 6-05 tablet by [facility] of mg tablet 00:00: mouth in [place] 00 the Medical morning. Branch glimepiride 3-0 Yes [id number] 2mg Take 1 [facility] 2 mg tablet 6-05 tablet by ity of 00:00: mouth [place] 00 daily with Medical breakfast. Branch ezetimibe 2023-0 Yes [id number] 10mg Take 1 [facility] (ZETIA) 10 6-05 tablet by [facility] of mg tablet 00:00: mouth in [place] 00 the Medical morning. Branch glimepiride 2023-0 Yes [id number] 2mg Take 1 [facility] 2 mg tablet 6-05 tablet by ity of 00:00: mouth [place] 00 daily with Medical breakfast. Branch ezetimibe 3-0 Yes [id number] 10mg Take 1 [facility] (ZETIA) 10 6-05 tablet by [facility] of mg tablet 00:00: mouth in [place] 00 the Medical morning. Branch glimepiride 3-0 Yes [id number] 2mg Take 1 [facility] 2 mg tablet 6-05 tablet by ity of 00:00: mouth [place] 00 daily with Medical breakfast. Branch ezetimibe 3-0 Yes [id number] 10mg Take 1 [facility] (ZETIA) 10 6-05 tablet by [facility] of mg tablet 00:00: mouth in [place] 00 the Medical morning. Branch glimepiride 3-0 Yes [id number] 2mg Take 1 [facility] 2 mg tablet 6-05 tablet by [facility]y of 00:00: mouth [place] 00 daily with Medical breakfast. Branch ezetimibe 3-0 Yes [id number] 10mg Take 1 [facility] (ZETIA) 10 6-05 tablet by [facility] of mg tablet 00:00: mouth in [place] 00 the Medical morning. Branch glimepiride 3-0 Yes [id number] 2mg Take 1 [facility] 2 mg tablet 6-05 tablet by [facility] of 00:00: mouth [place] 00 daily with Medical breakfast. Branch ezetimibe 3-0 Yes [id number] 10mg Take 1 [facility] (ZETIA) 10 6-05 tablet by [facility] of mg tablet 00:00: mouth in [place] 00 the Medical morning. Branch ezetimibe 3-0 Yes [id number] 10mg Take 1 [facility] (ZETIA) 10 6-05 tablet by [facility] of mg tablet 00:00: mouth in [place] 00 the Medical morning. Branch ezetimibe 2023-0 Yes [id number] 10mg Take 1 [facility] (ZETIA) 10 6-05 tablet by [facility] of mg tablet 00:00: mouth in [place] 00 the Medical morning. Branch ezetimibe 2023-0 Yes [id number] 10mg Take 1 [facility] (ZETIA) 10 6-05 tablet by [facility] mg tablet 00:00: mouth in [place] 00 the Medical morning. Branch ezetimibe 2023-0 2023- No [id number] 10mg Take 1 [facility] (ZETIA) 10 07-20 tablet by [facility] mg tablet 00:00: 00:00 mouth in [place] 00 :00 the Medical morning. Branch glimepiride No [id number] 2mg Take 1 [facility] 2 mg tablet 07-20 tablet by it y of 00:00: 00:00 mouth [place] 00 :00 daily with Medical breakfast. Branch triamcinolo No [id number] 40mg U nivers ne - 05-30 ity of acetonide 14:30: 13:43 [place] (KENALOG) 00 :00 Medical injection Branch 40 mg triamcinolo No [id number] 40mg 40 mg, [facility] ne - 05-30 Intramuscu ity of acetonide 14:30: 13:43 [place], [place]CE, [place] (KE[place]LOG[place] 00 :00 1 dose, On Medi jennifer injection Tue Branch 40 mg 07/14/22 at 0930, Routine triamcinolo No [id number] 40mg U nivers ne - 05-30 ity of acetonide 14:30: 13:43 [place] (KENALOG) 00 :00 Medical injection Branch 40 mg triamcinolo 2022- No [id number] 40mg 40 mg, [facility] ne 5-30 05-30 Intramuscu ity of acetonide 14:30: 13:43 [place] 00 :00 1 dose, On Medi jennifer injection Tue Branch 40 mg 07/14/22 at 0930, Routine triamcinolo 2022- No [id number] 40mg U nivers ne -30 05-30 ity of acetonide 14:30: 13:43 [place] (KENALOG) 00 :00 Medical injection Branch 40 mg triamcinolo 2022- No [id number] 40mg 40 mg, [facility] ne 5-30 05-30 Intramuscu ity of acetonide 14:30: 13:43 [place], [place], [place] ([place] 00 :00 1 dose, On Medi jennifer injection Tue Branch 40 mg 07/14/22 at 0930, Routine triamcinolo 2022- No [id number] 40mg U nivers ne 07-14-30 ity of acetonide 14:30: 13:43 [place] (KENALOG) 00 :00 Medical injection Branch 40 mg triamcinolo 2022- No [id number] 40mg 40 mg, [facility] ne 07-14-30 Intramuscu ity of acetonide 14:30: 13:43 [place], [place]CE[place] ([place] 00 :00 1 dose, On Medi jennifer injection Tue Branch 40 mg 07/14/22 at 0930, Routine potassium Yes [id number] 10meq Take 1 [facility] chloride 5-22 tablet by ity of (KLOR-CON [place]: [place] 10[place] 10 mEq 00 the Medical CR tablet morning. Branch potassium Yes [id number] 10meq Take 1 [facility] chloride 5-22 tablet by ity of (KLOR-CON 00:[place]: [place] 10[place] 10 mEq 00 the Medical CR tablet morning. Branch potassium 0 Yes [id number] 10meq Take 1 [facility] chloride 5-22 tablet by ity of (KLOR-CON 00:[place]: [place] 10) 10 mEq 00 the Medical CR tablet morning. Branch potassium 0 Yes [id number] 10meq Take 1 [facility] chloride 5-22 tablet by ity of (KLOR-CON 00:[place]: [place] 10) 10 mEq 00 the Medical CR tablet morning. Branch potassium 0 Yes [id number] 10meq Take 1 [facility] chloride 5-22 tablet by ity of (KLOR-CON 00:[place]: [place] 10) 10 mEq 00 the Medical CR tablet morning. Branch potassium 0 Yes [id number] 10meq Take 1 [facility] chloride 5-22 tablet by ity of (KLOR-CON 00:[place]: [place] 10) 10 mEq 00 the Medical CR tablet morning. Branch potassium 0 Yes [id number] 10meq Take 1 [facility] chloride 5-22 tablet by ity of (KL[facility]-CON [place]: [place] 10[place] 10 mEq 00 the Medical CR tablet morning. Branch potassium 0 Yes [id number] 10meq Take 1 [facility] chloride 5-22 tablet by ity of (KL[facility]-CON 00:[place]: [place] 10) 10 mEq 00 the Medical CR tablet morning. Branch potassium 2023-0 Yes [id number] 10meq Take 1 [facility] chloride 5-22 tablet by ity of (KLOR-CON 00:[place]: [place] 10) 10 mEq 00 the Medical CR tablet morning. Branch potassium 2023-0 Yes [id number] 10meq Take 1 [facility] chloride 5-22 tablet by ity of (KLOR-CON 00:[place]: [place] 10) 10 mEq 00 the Medical CR tablet morning. Branch potassium 3-0 Yes [id number] 10meq Take 1 [facility] chloride 5-22 tablet by ity of (KL[facility]-CON 00:[place]: [place] 10) 10 mEq 00 the Medical CR tablet morning. Branch potassium 2023-0 Yes [id number] 10meq Take 1 [facility] chloride 5-22 tablet by ity of (KL[facility]-CON 00:[place]: [place] 10[place] 10 mEq 00 the Medical CR tablet morning. Branch potassium 3-0 Yes [id number] 10meq Take 1 [facility] chloride 5-22 tablet by [facility] of (KL[facility]-CON 00:[place]: [place] 10) 10 mEq 00 the Medical CR tablet morning. Branch potassium 3-0 Yes [id number] 10meq Take 1 [facility] chloride 5-22 tablet by ity of (KL[facility]-CON 00:[place]: [place] 10[place] 10 mEq 00 the Medical CR tablet morning. Branch potassium 2023-0 Yes [id number] 10meq Take 1 [facility] chloride 5-22 tablet by ity of (KL[facility]-CON 00:[place]: [place] 10[place] 10 mEq 00 the Medical CR tablet morning. Branch potassium 2023-0 Yes [id number] 10meq Take 1 [facility] chloride 5-22 tablet by ity of (KL[facility]-CON 00:[place]: [place] 10[place] 10 mEq 00 the Medical CR tablet morning. Branch potassium 2023-0 Yes [id number] 10meq Take 1 [facility] chloride 5-22 tablet by it[facility] of (KLOR-CON 00:[place]: [place] 10[place] 10 mEq 00 the Medical CR tablet morning. Branch potassium 2022-0 2022- No [id number] 10meq Take 1 [facility] chloride 5-22 06-12 tablet by ity o f (KLOR-CON 00:00: 00:00 mouth [place] 10) 10 mEq 00 :00 the Medical CR tablet morning. Branch potassium 2022-0 2022- No [id number] 10meq Take 1 [facility] chloride 5-22 06-12 tablet by ity o f (KLOR-CON 00:00: 00:00 mouth [place] 10) 10 mEq 00 :00 the Medical CR tablet morning. Branch potassium 2022-0 2022- No [id number] 10meq Take 1 [facility] chloride 5-22 06-12 tablet by ity o f (KLOR-CON 00:00: 00:00 mouth [place] 10) 10 mEq 00 :00 the Medical CR tablet morning. Branch potassium 2022-0 2022- No [id number] 10meq Take 1 [facility] chloride 5-22 06-12 tablet by ity o f (KLOR-CON 00:00: 00:00 mouth [place] 10) 10 mEq 00 :00 the Medical CR tablet morning. Branch potassium 2022-0 2022- No [id number] 10meq Take 1 [facility] chloride 5-22 06-12 tablet by ity o f (KLOR-CON 00:00: 00:00 mouth [place] 10) 10 mEq 00 :00 the Medical CR tablet morning. Branch LACTULOSE 3-0 Yes [id number] TAKE 15 ML [facility] 10 gram/15 5-10 BY MOUTH ity o f mL solution 00:00: DAILY [place] [facility] LACTULOSE 3-0 Yes [id number] TAKE 15 ML [facility] 10 gram/15 5-10 BY MOUTH ity o f mL solution 00:00: DAILY [place] [facility] LACTULOSE 3-0 Yes [id number] TAKE 15 ML [facility] 10 gram/15 5-10 BY MOUTH ity o f mL solution 00:00: DAILY Medical Branch LACTULOSE 3-0 Yes [id number] TAKE 15 ML [facility] 10 gram/15 5-10 BY MOUTH ity o f mL solution 00:00: DAILY Medical Branch LACTULOSE 3-0 Yes [id number] TAKE 15 ML [facility] 10 gram/15 5-10 BY MOUTH ity o f mL solution 00:00: DAILY Medical Branch LACTULOSE 2023-0 Yes [id number] TAKE 15 ML [facility] 10 gram/15 5-10 BY MOUTH ity o f mL solution 00:00: DAILY Medical Branch LACTULOSE 2023-0 Yes [id number] TAKE 15 ML [facility] 10 gram/15 5-10 BY MOUTH ity o f mL solution 00:00: DAILY Medical Branch LACTULOSE 2023-0 Yes [id number] TAKE 15 ML [facility] 10 gram/15 5-10 BY MOUTH ity o f mL solution 00:00: DAILY Medical Branch LACTULOSE 2023-0 Yes [id number] TAKE 15 ML [facility] 10 gram/15 5-10 BY MOUTH ity o f mL solution 00:00: DAILY Medical Branch LACTULOSE 2023-0 Yes [id number] TAKE 15 ML [facility] 10 gram/15 5-10 BY MOUTH ity o f mL solution 00:00: DAILY Medical Branch LACTULOSE 2023-0 Yes [id number] TAKE 15 ML [facility] 10 gram/15 5-10 BY MOUTH ity o f mL solution 00:00: DAILY Medical Branch LACTULOSE 2023-0 Yes [id number] TAKE 15 ML [facility] 10 gram/15 5-10 BY MOUTH ity o f mL solution 00:00: DAILY Medical Branch LACTULOSE 2023-0 Yes [id number] TAKE 15 ML [facility] 10 gram/15 5-10 BY MOUTH ity o f mL solution 00:00: DAILY Medical Branch LACTULOSE 2023-0 Yes [id number] TAKE 15 ML [facility] 10 gram/15 5-10 BY MOUTH ity o f mL solution 00:00: DAILY Medical Branch LACTULOSE 2023-0 Yes [id number] TAKE 15 ML [facility] 10 gram/15 5-10 BY MOUTH ity o f mL solution 00:00: DAILY Medical Branch LACTULOSE 2023-0 Yes [id number] TAKE 15 ML [facility] 10 gram/15 5-10 BY MOUTH ity o f mL solution 00:00: DAILY Medical Branch LACTULOSE 2023-0 Yes [id number] TAKE 15 ML [facility] 10 gram/15 5-10 BY MOUTH ity o f mL solution 00:00: DAILY Medical Branch LACTULOSE 2023-0 Yes [id number] TAKE 15 ML [facility] 10 gram/15 5-10 BY MOUTH ity o f mL solution 00:00: DAILY Medical Branch LACTULOSE 2023-0 Yes [id number] TAKE 15 ML [facility] 10 gram/15 5-10 BY MOUTH ity o f mL solution 00:00: DAILY Medical Branch LACTULOSE 2023-0 Yes [id number] TAKE 15 ML [facility] 10 gram/15 5-10 BY MOUTH ity o f mL solution 00:00: DAILY Medical Branch LACTULOSE 2023-0 Yes [id number] TAKE 15 ML [facility] 10 gram/15 5-10 BY MOUTH ity o f mL solution 00:00: DAILY Medical Branch LACTULOSE 2023-0 Yes [id number] TAKE 15 ML [facility] 10 gram/15 5-10 BY MOUTH ity o f mL solution 00:00: DAILY Medical Branch LACTULOSE 2023-0 Yes [id number] TAKE 15 ML [facility] 10 gram/15 5-10 BY MOUTH ity o f mL solution 00:00: DAILY Medical Branch LACTULOSE 2023-0 Yes [id number] TAKE 15 ML [facility] 10 gram/15 5-10 BY MOUTH ity o f mL solution 00:00: DAILY Medical Branch LACTULOSE 2023-0 Yes [id number] TAKE 15 ML [facility] 10 gram/15 5-10 BY MOUTH ity o f mL solution 00:00: DAILY Medical Branch LACTULOSE 2023-0 Yes [id number] TAKE 15 ML [facility] 10 gram/15 5-10 BY MOUTH ity o f mL solution 00:00: DAILY Medical Branch LACTULOSE 2023-0 Yes [id number] TAKE 15 ML [facility] 10 gram/15 5-10 BY MOUTH ity o f mL solution 00:00: DAILY Medical Branch LACTULOSE 2023-0 Yes [id number] TAKE 15 ML [facility] 10 gram/15 5-10 BY MOUTH ity o f mL solution 00:00: DAILY Medical Branch LACTULOSE 2023-0 Yes [id number] TAKE 15 ML [facility] 10 gram/15 5-10 BY MOUTH ity o f mL solution 00:00: DAILY Medical Branch LACTULOSE 2023-0 Yes [id number] TAKE 15 ML [facility] 10 gram/15 5-10 BY MOUTH ity o f mL solution 00:00: DAILY Medical Branch LACTULOSE 2023-0 Yes [id number] TAKE 15 ML [facility] 10 gram/15 5-10 BY MOUTH ity o f mL solution 00:00: DAILY Medical Branch LACTULOSE 2023-0 Yes [id number] TAKE 15 ML [facility] 10 gram/15 5-10 BY MOUTH ity o f mL solution 00:00: DAILY Medical Branch LACTULOSE 2023-0 Yes [id number] TAKE 15 ML [facility] 10 gram/15 5-10 BY MOUTH ity o f mL solution 00:00: DAILY Medical Branch LACTULOSE 2023-0 Yes [id number] TAKE 15 ML [facility] 10 gram/15 5-10 BY MOUTH ity o f mL solution 00:00: DAILY Medical Branch LACTULOSE 2023-0 Yes [id number] TAKE 15 ML [facility] 10 gram/15 5-10 BY MOUTH ity o f mL solution 00:00: DAILY Medical Branch LACTULOSE 2023-0 Yes [id number] TAKE 15 ML [facility] 10 gram/15 5-10 BY MOUTH ity o f mL solution 00:00: DAILY Medical Branch LACTULOSE 2023-0 Yes [id number] TAKE 15 ML [facility] 10 gram/15 5-10 BY MOUTH ity o f mL solution 00:00: DAILY Medical Branch LACTULOSE 2023-0 Yes [id number] TAKE 15 ML [facility] 10 gram/15 5-10 BY MOUTH ity o f mL solution 00:00: DAILY Medical Branch LACTULOSE 2023-0 Yes [id number] TAKE 15 ML [facility] 10 gram/15 5-10 BY MOUTH ity o f mL solution 00:00: DAILY Medical Branch LACTULOSE 2023-0 Yes [id number] TAKE 15 ML [facility] 10 gram/15 5-10 BY MOUTH ity o f mL solution 00:00: DAILY Medical Branch LACTULOSE 2023-0 Yes [id number] TAKE 15 ML [facility] 10 gram/15 5-10 BY MOUTH ity o f mL solution 00:00: DAILY Medical Branch LACTULOSE 2023-0 Yes [id number] TAKE 15 ML [facility] 10 gram/15 5-10 BY MOUTH ity o f mL solution 00:00: DAILY Medical Branch LACTULOSE 2023-0 Yes [id number] TAKE 15 ML [facility] 10 gram/15 5-10 BY MOUTH ity o f mL solution 00:00: DAILY Medical Branch LACTULOSE 2023-0 Yes [id number] TAKE 15 ML [facility] 10 gram/15 5-10 BY MOUTH ity o f mL solution 00:00: DAILY Medical Branch LACTULOSE 2023-0 Yes [id number] TAKE 15 ML [facility] 10 gram/15 5-10 BY MOUTH ity o f mL solution 00:00: DAILY Medical Branch LACTULOSE 2023-0 Yes [id number] TAKE 15 ML [facility] 10 gram/15 5-10 BY MOUTH ity o f mL solution 00:00: DAILY Medical Branch LACTULOSE 2023-0 Yes [id number] TAKE 15 ML [facility] 10 gram/15 5-10 BY MOUTH ity o f mL solution 00:00: DAILY Medical Branch LACTULOSE 2023-0 Yes [id number] TAKE 15 ML [facility] 10 gram/15 5-10 BY MOUTH ity o f mL solution 00:00: DAILY Medical Branch LACTULOSE 2023-0 Yes [id number] TAKE 15 ML [facility] 10 gram/15 5-10 BY MOUTH ity o f mL solution 00:00: DAILY Medical Branch LACTULOSE 2023-0 Yes [id number] TAKE 15 ML [facility] 10 gram/15 5-10 BY MOUTH ity o f mL solution 00:00: DAILY Medical Branch LACTULOSE 2023-0 Yes [id number] TAKE 15 ML [facility] 10 gram/15 5-10 BY MOUTH ity o f mL solution 00:00: DAILY Medical Branch LACTULOSE 2023-0 Yes [id number] TAKE 15 ML [facility] 10 gram/15 5-10 BY MOUTH ity o f mL solution 00:00: DAILY Medical Branch LACTULOSE 2023-0 Yes [id number] TAKE 15 ML [facility] 10 gram/15 5-10 BY MOUTH ity o f mL solution 00:00: DAILY Medical Branch LACTULOSE 2023-0 Yes [id number] TAKE 15 ML [facility] 10 gram/15 5-10 BY MOUTH ity o f mL solution 00:00: DAILY Medical Branch LACTULOSE 2023-0 Yes [id number] TAKE 15 ML [facility] 10 gram/15 5-10 BY MOUTH ity o f mL solution 00:00: DAILY Medical Branch LACTULOSE 2023-0 Yes [id number] TAKE 15 ML [facility] 10 gram/15 5-10 BY MOUTH ity o f mL solution 00:00: DAILY Medical Branch LACTULOSE 2023-0 Yes [id number] TAKE 15 ML [facility] 10 gram/15 5-10 BY MOUTH ity o f mL solution 00:00: DAILY Medical Branch LACTULOSE 2023-0 Yes [id number] TAKE 15 ML [facility] 10 gram/15 5-10 BY MOUTH ity o f mL solution 00:00: DAILY Medical Branch LACTULOSE 2023-0 Yes [id number] TAKE 15 ML [facility] 10 gram/15 5-10 BY MOUTH ity o f mL solution 00:00: DAILY Medical Branch LACTULOSE 2023-0 Yes [id number] TAKE 15 ML [facility] 10 gram/15 5-10 BY MOUTH ity o f mL solution 00:00: DAILY Medical Branch LACTULOSE 2023-0 Yes [id number] TAKE 15 ML [facility] 10 gram/15 5-10 BY MOUTH ity o f mL solution 00:00: DAILY Medical Branch LACTULOSE 2023-0 Yes [id number] TAKE 15 ML [facility] 10 gram/15 5-10 BY MOUTH ity o f mL solution 00:00: DAILY Medical Branch LACTULOSE 2023-0 Yes [id number] TAKE 15 ML [facility] 10 gram/15 5-10 BY MOUTH ity o f mL solution 00:00: DAILY Medical Branch LACTULOSE 2023-0 Yes [id number] TAKE 15 ML [facility] 10 gram/15 5-10 BY MOUTH ity o f mL solution 00:00: DAILY Medical Branch LACTULOSE 2023-0 Yes [id number] TAKE 15 ML [facility] 10 gram/15 5-10 BY MOUTH ity o f mL solution 00:00: DAILY Medical Branch LACTULOSE 2023-0 Yes [id number] TAKE 15 ML [facility] 10 gram/15 5-10 BY MOUTH ity o f mL solution 00:00: DAILY Medical Branch LACTULOSE 2023-0 Yes [id number] TAKE 15 ML [facility] 10 gram/15 5-10 BY MOUTH ity o f mL solution 00:00: DAILY Medical Branch LACTULOSE 2023-0 Yes [id number] TAKE 15 ML [facility] 10 gram/15 5-10 BY MOUTH ity o f mL solution 00:00: DAILY Medical Branch LACTULOSE 2023-0 Yes [id number] TAKE 15 ML [facility] 10 gram/15 5-10 BY MOUTH ity o f mL solution 00:00: DAILY Medical Branch LACTULOSE 2023-0 Yes [id number] TAKE 15 ML [facility] 10 gram/15 5-10 BY MOUTH ity o f mL solution 00:00: DAILY Medical Branch LACTULOSE 2023-0 Yes [id number] TAKE 15 ML [facility] 10 gram/15 5-10 BY MOUTH ity o f mL solution 00:00: DAILY Medical Branch LACTULOSE 2023-0 Yes [id number] TAKE 15 ML [facility] 10 gram/15 5-10 BY MOUTH ity o f mL solution 00:00: DAILY Medical Branch LACTULOSE 2023-0 Yes [id number] TAKE 15 ML [facility] 10 gram/15 5-10 BY MOUTH ity o f mL solution 00:00: DAILY Medical Branch LACTULOSE 2023-0 Yes [id number] TAKE 15 ML [facility] 10 gram/15 5-10 BY MOUTH ity o f mL solution 00:00: DAILY Medical Branch LACTULOSE 2023-0 Yes [id number] TAKE 15 ML [facility] 10 gram/15 5-10 BY MOUTH ity o f mL solution 00:00: DAILY Medical Branch LACTULOSE 2023-0 Yes [id number] TAKE 15 ML [facility] 10 gram/15 5-10 BY MOUTH ity o f mL solution 00:00: DAILY Medical Branch LACTULOSE 2023-0 Yes [id number] TAKE 15 ML [facility] 10 gram/15 5-10 BY MOUTH ity o f mL solution 00:00: DAILY Medical Branch LACTULOSE 2023-0 Yes [id number] TAKE 15 ML [facility] 10 gram/15 5-10 BY MOUTH ity o f mL solution 00:00: DAILY Medical Branch LACTULOSE 2023-0 Yes [id number] TAKE 15 ML [facility] 10 gram/15 5-10 BY MOUTH ity o f mL solution 00:00: DAILY Medical Branch ezetimibe 2023-0 Yes [id number] 10mg Take 1 [facility] (ZETIA) 10 5-08 tablet by [facility] mg tablet 00:00: [place] 00 the Medical morning. Branch ezetimibe 2023-0 Yes [id number] 10mg Take 1 [facility] (ZETIA) 10 5-08 tablet by [facility] mg tablet 00:00: [place] 00 the Medical morning. Branch ezetimibe 2023-0 Yes [id number] 10mg Take 1 [facility] [place] (ZETIA) 10 5-08 tablet by [facility] mg tablet 00:00: [place] 00 the Medical morning. Branch ezetimibe 2023-0 Yes [id number] 10mg Take 1 [facility] (ZETIA) 10 5-08 tablet by [facility] mg tablet 00:00: [place] 00 the Medical morning. Branch ezetimibe 2023-0 Yes [id number] 10mg Take 1 [facility] [place] (ZETIA) 10 5-08 tablet by [facility] mg tablet 00:00: [place] 00 the Medical morning. Branch ezetimibe 2023-0 Yes [id number] 10mg Take 1 [facility] [place] (ZETIA) 10 5-08 tablet by [facility] of mg tablet 00:00: [place] 00 the Medical morning. Branch ezetimibe 2023-0 Yes [id number] 10mg Take 1 [facility] [place] (ZETIA) 10 5-08 tablet by [facility] of mg tablet 00:00: [place] 00 the Medical morning. Branch ezetimibe 2023-0 Yes [id number] 10mg Take 1 [facility] [place] (ZETIA) 10 5-08 tablet by [facility] of mg tablet 00:00: [place] 00 the Medical morning. Branch ezetimibe 2023-0 Yes [id number] 10mg Take 1 [facility] [place] (ZETIA) 10 5-08 tablet by [facility] of mg tablet 00:00: [place] 00 the Medical morning. Branch ezetimibe 2023-0 Yes [id number] 10mg Take 1 [facility] [place] (ZETIA) 10 5-08 tablet by [facility] of mg tablet 00:00: [place] 00 the Medical morning. Branch ezetimibe 2023-0 Yes [id number] 10mg Take 1 [facility] [place] (ZETIA) 10 5-08 tablet by [facility] of mg tablet 00:00: [place] 00 the Medical morning. Branch ezetimibe 2023-0 Yes [id number] 10mg Take 1 [facility] [place] (ZETIA) 10 5-08 tablet by [facility] of mg tablet 00:00: [place] 00 the Medical morning. Branch ezetimibe 2023-0 Yes [id number] 10mg Take 1 [facility] [place] (ZETIA) 10 5-08 tablet by [facility] of mg tablet 00:00: [place] 00 the Medical morning. Branch ezetimibe 2023-0 Yes [id number] 10mg Take 1 [facility] (ZETIA) 10 5-08 tablet by [facility] of mg tablet 00:00: [place] 00 the Medical morning. Branch ezetimibe 2023-0 Yes [id number] 10mg Take 1 [facility] [place] (ZETIA) 10 5-08 tablet by [facility] of mg tablet 00:00: [place] 00 the Medical morning. Branch ezetimibe 2023-0 Yes [id number] 10mg Take 1 [facility] (ZETIA) 10 5-08 tablet by [facility] of mg tablet 00:00: [place] 00 the Medical morning. Branch ezetimibe 2023-0 Yes [id number] 10mg Take 1 [facility] (ZETIA) 10 5-08 tablet by [facility] of mg tablet 00:00: [place] 00 the Medical morning. Branch ezetimibe 2023-0 Yes [id number] 10mg Take 1 [facility] (ZETIA) 10 5-08 tablet by [facility] of mg tablet 00:00: [place] 00 the Medical morning. Branch ezetimibe 2023-0 Yes [id number] 10mg Take 1 [facility] (ZETIA) 10 5-08 tablet by [facility] of mg tablet 00:00: [place] 00 the Medical morning. Branch ezetimibe 2023-0 Yes [id number] 10mg Take 1 [facility] (ZETIA) 10 5-08 tablet by [facility] of mg tablet 00:00: [place] 00 the Medical morning. Branch ezetimibe 2023-0 Yes [id number] 10mg Take 1 [facility] (ZETIA) 10 5-08 tablet by [facility] of mg tablet 00:00: [place] 00 the Medical morning. Branch ezetimibe 2023-0 Yes [id number] 10mg Take 1 [facility] (ZETIA) 10 5-08 tablet by [facility] of mg tablet 00:00: [place] 00 the Medical morning. Branch ezetimibe 2023-0 Yes [id number] 10mg Take 1 [facility] (ZETIA) 10 5-08 tablet by [facility] of mg tablet 00:00: [place] 00 the Medical morning. Branch ezetimibe 2023-0 2023- No [id number] 10mg Take 1 [facility] (ZETIA) 10 5-08 06-04 tablet by ity of mg tablet 00:00: 00:00 mouth [place] :00 the Medical morning. Branch furosemide 2023-0 Yes [id number] 40mg Take 1 [facility] 40 mg 5-05 tablet by ity of tablet 00:00: mouth in [place] 00 the Medical morning. Branch furosemide 2023-0 Yes [id number] 40mg Take 1 [facility] 40 mg 5-05 tablet by ity of tablet 00:00: mouth in [place] 00 the Medical morning. Branch furosemide 2023-0 Yes [id number] 40mg Take 1 [facility] 40 mg 5-05 tablet by ity of tablet 00:00: mouth in [place] 00 the Medical morning. Branch furosemide 2023-0 Yes [id number] 40mg Take 1 [facility] 40 mg 5-05 tablet by ity of tablet 00:00: mouth in [place] 00 the Medical morning. Branch furosemide 2023-0 Yes [id number] 40mg Take 1 [facility] 40 mg 5-05 tablet by ity of tablet 00:00: mouth in [place] 00 the Medical morning. Branch furosemide 2023-0 Yes [id number] 40mg Take 1 [facility] 40 mg 5-05 tablet by ity of tablet 00:00: mouth in [place] the Medical morning. Branch furosemide 2023-0 Yes [id number] 40mg Take 1 [facility] 40 mg 5-05 tablet by ity of tablet 00:00: mouth in [place] the Medical morning. Branch furosemide 2023-0 Yes [id number] 40mg Take 1 [facility] 40 mg 5-05 tablet by ity of tablet 00:00: mouth in [place] the Medical morning. Branch furosemide 2023-0 Yes [id number] 40mg Take 1 [facility] 40 mg 5-05 tablet by ity of tablet 00:00: mouth in [place] 00 the Medical morning. Branch furosemide 2023-0 Yes [id number] 40mg Take 1 [facility] 40 mg 5-05 tablet by ity of tablet 00:00: mouth in [place] 00 the Medical morning. Branch furosemide 2023-0 Yes [id number] 40mg Take 1 [facility] 40 mg 5-05 tablet by ity of tablet 00:00: mouth in [place] 00 the Medical morning. Branch furosemide 2023-0 Yes [id number] 40mg Take 1 [facility] 40 mg 5-05 tablet by ity of tablet 00:00: mouth in [place] 00 the Medical morning. Branch furosemide 2023-0 Yes [id number] 40mg Take 1 [facility] 40 mg 5-05 tablet by ity of tablet 00:00: mouth in [place] the Medical morning. Branch furosemide 2023-0 Yes [id number] 40mg Take 1 [facility] 40 mg 5-05 tablet by ity of tablet 00:00: mouth in [place] the Medical morning. Branch furosemide 2023-0 Yes [id number] 40mg Take 1 [facility] 40 mg 5-05 tablet by ity of tablet 00:00: mouth in [place] the Medical morning. Branch furosemide 2023-0 Yes [id number] 40mg Take 1 [facility] 40 mg 5-05 tablet by ity of tablet 00:00: mouth in [place] the Medical morning. Branch furosemide 2023-0 Yes [id number] 40mg Take 1 [facility] 40 mg 5-05 tablet by ity of tablet 00:00: mouth in [place] the Medical morning. Branch furosemide 2023-0 Yes [id number] 40mg Take 1 [facility] 40 mg 5-05 tablet by ity of tablet 00:00: mouth in [place] the Medical morning. Branch furosemide 2023-0 Yes [id number] 40mg Take 1 [facility] 40 mg 5-05 tablet by ity of tablet 00:00: mouth in [place] the Medical morning. Branch furosemide 2023-0 Yes [id number] 40mg Take 1 [facility] 40 mg 5-05 tablet by ity of tablet 00:00: mouth in [place] the Medical morning. Branch furosemide 2023-0 Yes [id number] 40mg Take 1 [facility] 40 mg 5-05 tablet by ity of tablet 00:00: mouth in [place] the Medical morning. Branch furosemide 2023-0 Yes [id number] 40mg Take 1 [facility] 40 mg 5-05 tablet by ity of tablet 00:00: mouth in [place] the Medical morning. Branch furosemide 2023-0 Yes [id number] 40mg Take 1 [facility] 40 mg 5-05 tablet by ity of tablet 00:00: mouth in [place] the Medical morning. Branch furosemide 2023-0 Yes [id number] 40mg Take 1 [facility] 40 mg 5-05 tablet by ity of tablet 00:00: mouth in [place] the Medical morning. Branch furosemide 2023-0 Yes [id number] 40mg Take 1 [facility] 40 mg 5-05 tablet by ity of tablet 00:00: mouth in [place] the Medical morning. Branch furosemide 2023-0 Yes [id number] 40mg Take 1 [facility] 40 mg 5-05 tablet by ity of tablet 00:00: mouth in [place] 00 the Medical morning. Branch furosemide 2023-0 Yes [id number] 40mg Take 1 [facility] 40 mg 5-05 tablet by ity of tablet 00:00: mouth in [place] the Medical morning. Branch furosemide 2023-0 Yes [id number] 40mg Take 1 [facility] 40 mg 5-05 tablet by ity of tablet 00:00: mouth in [place] the Medical morning. Branch furosemide 2023-0 Yes [id number] 40mg Take 1 [facility] 40 mg 5-05 tablet by ity of tablet 00:00: mouth in [place] the Medical morning. Branch furosemide 2023-0 Yes [id number] 40mg Take 1 [facility] 40 mg 5-05 tablet by ity of tablet 00:00: mouth in [place] the Medical morning. Branch furosemide 2023-0 Yes [id number] 40mg Take 1 [facility] 40 mg 5-05 tablet by ity of tablet 00:00: mouth in [place] the Medical morning. Branch furosemide 2023-0 Yes [id number] 40mg Take 1 [facility] 40 mg 5-05 tablet by ity of tablet 00:00: mouth in [place] the Medical morning. Branch furosemide 2023-0 Yes [id number] 40mg Take 1 [facility] 40 mg 5-05 tablet by ity of tablet 00:00: mouth in [place] the Medical morning. Branch furosemide 2023-0 Yes [id number] 40mg Take 1 [facility] 40 mg 5-05 tablet by ity of tablet 00:00: mouth in [place] the Medical morning. Branch furosemide 2023-0 Yes [id number] 40mg Take 1 [facility] 40 mg 5-05 tablet by ity of tablet 00:00: mouth in [place] the Medical morning. Branch furosemide 2023-0 Yes [id number] 40mg Take 1 [facility] 40 mg 5-05 tablet by ity of tablet 00:00: mouth in [place] the Medical morning. Branch furosemide 2023-0 Yes [id number] 40mg Take 1 [facility] 40 mg 5-05 tablet by ity of tablet 00:00: mouth in [place] the Medical morning. Branch furosemide 2023-0 Yes [id number] 40mg Take 1 [facility] 40 mg 5-05 tablet by ity of tablet 00:00: mouth in [place] 00 the Medical morning. Branch furosemide 2023-0 Yes [id number] 40mg Take 1 [facility] 40 mg 5-05 tablet by [facility] tablet 00:00: mouth in [place] 00 the Medical morning. Branch furosemide 2023-0 Yes [id number] 40mg Take 1 [facility] 40 mg 5-05 tablet by [facility] tablet 00:00: mouth in [place] 00 the Medical morning. Branch furosemide 2023-0 Yes [id number] 40mg Take 1 [facility] 40 mg 5-05 tablet by [facility] of tablet 00:00: mouth in [place] 00 the Medical morning. Branch furosemide 2023-0 Yes [id number] 40mg Take 1 [facility] 40 mg 5-05 tablet by [facility] of tablet 00:00: mouth in [place] 00 the Medical morning. Branch furosemide 2023-0 Yes [id number] 40mg Take 1 [facility] 40 mg 5-05 tablet by [facility] of tablet 00:00: mouth in [place] 00 the Medical morning. Branch furosemide 2023-0 Yes [id number] 40mg Take 1 [facility] 40 mg 5-05 tablet by [facility] of tablet 00:00: mouth in [place] 00 the Medical morning. Branch furosemide 2023-0 2023- No [id number] 40mg Take 1 [facility] 40 mg 5-05 07-13 tablet by ity of tablet 00:00: 00:00 mouth in [place] 00 :00 the Medical morning. Branch furosemide 2023-0 Yes [id number] Take one [facility] 40 mg 4-21 tablet by [facility] of tablet 00:00: mouth [place] 00 twice a Medical day for Branch one week then decrease to daily then every other day based on weight gain/swell ing furosemide 2023-0 Yes [id number] Take one [facility] 40 mg 4-21 tablet by [facility] of tablet 00:00: mouth [place] 00 twice a Medical day for Branch one week then decrease to daily then every other day based on weight gain/swell ing furosemide 2023-0 Yes [id number] Take one [facility] 40 mg 4-21 tablet by it[facility] of tablet 00:00: mouth [place] 00 twice a Medical day for Branch one week then decrease to daily then every other day based on weight gain/swell ing furosemide 2023-0 Yes [id number] Take one [facility] 40 mg 4-21 tablet by ity of tablet 00:00: mouth [place] 00 twice a Medical day for Branch one week then decrease to daily then every other day based on weight gain/swell ing furosemide 2023-0 Yes [id number] Take one [facility] 40 mg 4-21 tablet by ity of tablet 00:00: mouth [place] 00 twice a Medical day for Branch one week then decrease to daily then every other day based on weight gain/swell ing furosemide 2023-0 Yes [id number] Take one [facility] 40 mg 4-21 tablet by ity of tablet 00:00: mouth [place] 00 twice a Medical day for Branch one week then decrease to daily then every other day based on weight gain/swell ing furosemide 2023-0 Yes [id number] Take one [facility] 40 mg 4-21 tablet by ity of tablet 00:00: mouth [place] 00 twice a Medical day for Branch one week then decrease to daily then every other day based on weight gain/swell ing furosemide 2023-0 Yes [id number] Take one [facility] 40 mg 4-21 tablet by ity of tablet 00:00: mouth [place] 00 twice a Medical day for Branch one week then decrease to daily then every other day based on weight gain/swell ing furosemide 2023-0 Yes [id number] Take one [facility] 40 mg 4-21 tablet by ity of tablet 00:00: mouth [place] 00 twice a Medical day for Branch one week then decrease to daily then every other day based on weight gain/swell ing furosemide 2023-0 Yes [id number] Take one [facility] 40 mg 4-21 tablet by ity of tablet 00:00: mouth [place] 00 twice a Medical day for Branch one week then decrease to daily then every other day based on weight gain/swell ing furosemide 2023-0 Yes [id number] Take one [facility] 40 mg 4-21 tablet by [facility] of tablet 00:00: mouth [place] 00 twice a Medical day for Branch one week then decrease to daily then every other day based on weight gain/swell ing furosemide 2023-0 Yes [id number] Take one [facility] 40 mg 4-21 tablet by ity of tablet 00:00: mouth [place] 00 twice a Medical day for Branch one week then decrease to daily then every other day based on weight gain/swell ing furosemide 2023-0 Yes [id number] Take one [facility] 40 mg 4-21 tablet by [facility]y of tablet 00:00: mouth [place] 00 twice a Medical day for Branch one week then decrease to daily then every other day based on weight gain/swell ing furosemide 2023-0 Yes [id number] Take one [facility] 40 mg 4-21 tablet by [facility]y of tablet 00:00: mouth [place] 00 twice a Medical day for Branch one week then decrease to daily then every other day based on weight gain/swell ing furosemide 2023-0 Yes [id number] Take one [facility] 40 mg 4-21 tablet by [facility] of tablet 00:00: mouth [place] 00 twice a Medical day for Branch one week then decrease to daily then every other day based on weight gain/swell ing furosemide 2023-0 Yes [id number] Take one [facility] 40 mg 4-21 tablet by ity of tablet 00:00: mouth [place] 00 twice a Medical day for Branch one week then decrease to daily then every other day based on weight gain/swell ing furosemide 2023-0 Yes [id number] Take one [facility] 40 mg 4-21 tablet by ity of tablet 00:00: mouth [place] 00 twice a Medical day for Branch one week then decrease to daily then every other day based on weight gain/swell ing furosemide 2023-0 Yes [id number] Take one [facility] 40 mg 4-21 tablet by ity of tablet 00:00: mouth [place] 00 twice a Medical day for Branch one week then decrease to daily then every other day based on weight gain/swell ing furosemide 2023-0 Yes [id number] Take one [facility] 40 mg 4-21 tablet by ity of tablet 00:00: mouth [place] 00 twice a Medical day for Branch one week then decrease to daily then every other day based on weight gain/swell ing furosemide 2023-0 Yes [id number] Take one [facility] 40 mg 4-21 tablet by ity of tablet 00:00: mouth [place] 00 twice a Medical day for Branch one week then decrease to daily then every other day based on weight gain/swell ing furosemide 2023-0 Yes [id number] Take one [facility] 40 mg 4-21 tablet by ity of tablet 00:00: mouth [place] 00 twice a Medical day for Branch one week then decrease to daily then every other day based on weight gain/swell ing furosemide 2023-0 Yes [id number] Take one [facility] 40 mg 4-21 tablet by ity of tablet 00:00: mouth [place] 00 twice a Medical day for Branch one week then decrease to daily then every other day based on weight gain/swell ing furosemide 2023-0 2023- No [id number] Take one [facility] 40 mg 4-21 05-05 tablet by ity of tablet 00:00: 00:00 mouth [place] 00 :00 twice a Medical day for Branch one week then decrease to daily then every other day based on weight gain/swell ing furosemide 2022-0 3- No [id number] Take one [facility] 40 mg 4-21 05-05 tablet by [facility] of tablet 00:00: 00:00 mouth [place] 00 :00 twice a Medical day for Branch one week then decrease to daily then every other day based on weight gain/swell ing furosemide 2022-0 3- No [id number] Take one [facility] 40 mg 4-21 05-05 tablet by ity of tablet 00:00: 00:00 mouth [place] 00 :00 twice a Medical day for Branch one week then decrease to daily then every other day based on weight gain/swell ing furosemide 2022-0 2022- No [id number] Take one [facility] 40 mg 4-21 05-05 tablet by ity of tablet 00:00: 00:00 mouth [place] 00 :00 twice a Medical day for Branch one week then decrease to daily then every other day based on weight gain/swell ing furosemide 2022-0 2022- No [id number] Take one [facility] 40 mg 4-21 05-05 tablet by ity of tablet 00:00: 00:00 mouth [place] 00 :00 twice a Medical day for Branch one week then decrease to daily then every other day based on weight gain/swell ing lactulose 2022-0 Yes [id number] TAKE 15 ML [facility] 10 gram/15 4-10 BY MOUTH ity o f mL solution 00:00: DAILY. [place] 00 [facility] lactulose 2022-0 Yes [id number] TAKE 15 ML [facility] 10 gram/15 4-10 BY MOUTH ity o f mL solution 00:00: DAILY. [place] 00 [facility] lactulose 3-0 Yes [id number] TAKE 15 ML [facility] 10 gram/15 4-10 BY MOUTH ity o f mL solution 00:00: DAILY. [place] 00 [facility] lactulose 2022-0 Yes [id number] TAKE 15 ML [facility] 10 gram/15 4-10 BY MOUTH it[facility] o f mL solution 00:00: DAILY. [place] 00 [facility] [place] lactulose 2022-0 Yes [id number] TAKE 15 ML [facility] 10 gram/15 4-10 BY MOUTH ity o f mL solution 00:00: DAILY. [place] 00 [facility] lactulose 2022-0 Yes [id number] TAKE 15 ML [facility] 10 gram/15 4-10 BY MOUTH ity o f mL solution 00:00: DAILY. [place] 00 [facility] lactulose 2022-0 Yes [id number] TAKE 15 ML [facility] 10 gram/15 4-10 BY MOUTH ity o f mL solution 00:00: DAILY. [place] 00 [facility] lactulose 2022-0 Yes [id number] TAKE 15 ML [facility] 10 gram/15 4-10 BY MOUTH ity o f mL solution 00:00: DAILY. [place] 00 [facility] lactulose 2022-0 Yes [id number] TAKE 15 ML [facility] 10 gram/15 4-10 BY MOUTH ity o f mL solution 00:00: DAILY. [place] 00 [facility] lactulose 2022-0 Yes [id number] TAKE 15 ML [facility] 10 gram/15 4-10 BY MOUTH ity o f mL solution 00:00: DAILY. [place] 00 [facility] lactulose 2022-0 Yes [id number] TAKE 15 ML [facility] 10 gram/15 4-10 BY MOUTH ity o f mL solution 00:00: DAILY. [place] 00 [facility] lactulose 2022-0 Yes [id number] TAKE 15 ML [facility] 10 gram/15 4-10 BY MOUTH ity o f mL solution 00:00: DAILY. [place] 00 [facility] lactulose 2022-0 Yes [id number] TAKE 15 ML [facility] 10 gram/15 4-10 BY MOUTH ity o f mL solution 00:00: DAILY. [place] 00 [facility] lactulose 2022-0 Yes [id number] TAKE 15 ML [facility] 10 gram/15 4-10 BY MOUTH ity o f mL solution 00:00: DAILY. [place] 00 [facility] lactulose 2022-0 Yes [id number] TAKE 15 ML [facility] 10 gram/15 4-10 BY MOUTH ity o f mL solution 00:00: DAILY. [place] 00 [facility] lactulose 2022-0 Yes [id number] TAKE 15 ML [facility] 10 gram/15 4-10 BY MOUTH ity o f mL solution 00:00: DAILY. [place] 00 [facility] lactulose 2022-0 Yes [id number] TAKE 15 ML [facility] 10 gram/15 4-10 BY MOUTH ity o f mL solution 00:00: DAILY. [place] 00 [facility] lactulose 2022-0 Yes [id number] TAKE 15 ML [facility] 10 gram/15 4-10 BY MOUTH ity o f mL solution 00:00: DAILY. [place] 00 [facility] lactulose 2022-0 Yes [id number] TAKE 15 ML [facility] 10 gram/15 4-10 BY MOUTH ity o f mL solution 00:00: [facility] lactulose 2022-0 Yes [id number] TAKE 15 ML [facility] 10 gram/15 4-10 BY MOUTH ity o f mL solution 00:00: DAILY. [facility] [place] [facility] lactulose 2022-0 Yes [id number] TAKE 15 ML [facility] 10 gram/15 4-10 BY MOUTH ity o f mL solution 00:00: DAILY. [facility] [place] [facility] lactulose 2022-0 Yes [id number] TAKE 15 ML [facility] 10 gram/15 4-10 BY MOUTH ity o f mL solution 00:00: DAILY. [facility] [place] [facility] lactulose 2022-0 Yes [id number] TAKE 15 ML [facility] 10 gram/15 4-10 BY MOUTH ity o f mL solution 00:00: DAILY. [facility] [place] [facility] lactulose 2022-0 Yes [id number] TAKE 15 ML [facility] 10 gram/15 4-10 BY MOUTH ity o f mL solution 00:00: DAILY. [facility] [place] [facility] lactulose 2022-0 Yes [id number] TAKE 15 ML [facility] 10 gram/15 4-10 BY MOUTH ity o f mL solution 00:00: DAILY. [facility] [place] [facility] lactulose 2022-0 Yes [id number] TAKE 15 ML [facility] 10 gram/15 4-10 BY MOUTH ity o f mL solution 00:00: DAILY. [place] [facility] lactulose 2022-0 Yes [id number] TAKE 15 ML [facility] 10 gram/15 4-10 BY MOUTH ity o f mL solution 00:00: DAILY. [place] 00 [facility] lactulose 2022-0 Yes [id number] TAKE 15 ML [facility] 10 gram/15 4-10 BY MOUTH ity o f mL solution 00:00: DAILY. [place] 00 [facility] lactulose 2022-0 Yes [id number] TAKE 15 ML [facility] 10 gram/15 4-10 BY MOUTH ity o f mL solution 00:00: DAILY. [place] 00 [facility] lactulose 2022-0 Yes [id number] TAKE 15 ML [facility] 10 gram/15 4-10 BY MOUTH ity o f mL solution 00:00: DAILY. [place] 00 [facility] lactulose 2022-0 Yes [id number] TAKE 15 ML [facility] 10 gram/15 4-10 BY MOUTH ity o f mL solution 00:00: DAILY. [place] 00 [facility] lactulose 2022-0 Yes [id number] TAKE 15 ML [facility] 10 gram/15 4-10 BY MOUTH ity o f mL solution 00:00: DAILY. [place] 00 [facility] lactulose 2022-0 Yes [id number] TAKE 15 ML [facility] 10 gram/15 4-10 BY MOUTH ity o f mL solution 00:00: DAILY. [place] 00 [facility] lactulose 2022-0 Yes [id number] TAKE 15 ML [facility] 10 gram/15 4-10 BY MOUTH ity o f mL solution 00:00: DAILY. [place] 00 [facility] lactulose 2022-0 3- No [id number] TAKE 15 ML [facility] 10 gram/15 4-10 05-10 BY MOUTH ity of mL solution 00:00: 00:00 DAILY. [place] 00 :00 Medical Branch lactulose 2022-0 3- No [id number] TAKE 15 ML [facility] 10 gram/15 4-10 05-10 BY MOUTH ity of mL solution 00:00: 00:00 DAILY. [place] 00 :00 Medical Branch lactulose 2022-0 3- No [id number] TAKE 15 ML [facility] 10 gram/15 4-10 05-10 BY MOUTH ity of mL solution 00:00: 00:00 DAILY. [place] 00 :00 [facility] aspirin 81 2022-0 Yes 325mg Take 325 [facility] mg EC 3-28 mg by ity of tablet 13:27: mouth. [address] aspirin 81 2022-0 Yes 325mg Take 325 [facility] mg EC 3-28 mg by ity of tablet 13:27: mouth. [address] aspirin 81 2022-0 Yes 325mg Take 325 [facility] mg EC 3-28 mg by ity of tablet 13:27: mouth. [address] aspirin 81 2022-0 Yes 325mg Take 325 [facility] mg EC 3-28 mg by ity of tablet 13:27: mouth. [address] aspirin 81 2022-0 Yes 325mg Take 325 [facility] mg EC 3-28 mg by ity of tablet 13:27: mouth. [place] [address] Medical Branch aspirin 81 2022-0 Yes 325mg Take 325 [facility] [place] mg EC 3-28 mg by ity of tablet 13:27: mouth. [place] [address] Medical Branch aspirin 81 2022-0 Yes 325mg Take 325 [facility] [place] mg EC 3-28 mg by ity of tablet 13:27: mouth. [place] [address] Medical Branch aspirin 81 2022-0 Yes 325mg Take 325 [facility] [place] mg EC 3-28 mg by ity of tablet 13:27: mouth. [place] [address] Medical Branch aspirin 81 2022-0 Yes 325mg Take 325 [facility] [place] mg EC 3-28 mg by ity of tablet 13:27: mouth. [place] [address] Medical Branch aspirin 81 2022-0 Yes 325mg Take 325 [facility] [place] mg EC 3-28 mg by ity of tablet 13:27: mouth. [place] [address] Medical Branch aspirin 81 2022-0 Yes 325mg Take 325 [facility] [place] mg EC 3-28 mg by ity of tablet 13:27: mouth. [place] [address] Medical Branch aspirin 81 2022-0 Yes 325mg Take 325 [facility] [place] mg EC 3-28 mg by ity of tablet 13:27: mouth. [place] [address] Medical Branch aspirin 81 2022-0 Yes 325mg Take 325 [facility] [place] mg EC 3-28 mg by ity of tablet 13:27: mouth. [place] [address] Medical Branch aspirin 81 2022-0 Yes 325mg Take 325 [facility] [place] mg EC 3-28 mg by ity of tablet 13:27: mouth. [place] [address] Medical Branch aspirin 81 2022-0 Yes 325mg Take 325 [facility] [place] mg EC 3-28 mg by ity of tablet 13:27: mouth. [place] [address] Medical Branch aspirin 81 2022-0 Yes 325mg Take 325 [facility] [place] mg EC 3-28 mg by ity of tablet 13:27: mouth. [place] [address] Medical Branch aspirin 81 2022-0 Yes 325mg Take 325 [facility] [place] mg EC 3-28 mg by ity of tablet 13:27: mouth. [place] [address] Medical Branch aspirin 81 3-0 Yes 325mg Take 325 [facility] [place] mg EC 3-28 mg by ity of tablet 13:27: mouth. [address] Branch aspirin 81 2022-0 Yes 325mg Take 325 [facility] mg EC 3-28 mg by ity of tablet 13:27: mouth. [place] [address] Medical Branch aspirin 81 2022-0 Yes 325mg Take 325 [facility] mg EC 3-28 mg by ity of tablet 13:27: mouth. [place] [address] Medical Branch aspirin 81 2022-0 Yes 325mg Take 325 [facility] [place] mg EC 3-28 mg by ity of tablet 13:27: mouth. [place] [address] Medical Branch aspirin 81 2022-0 Yes 325mg Take 325 [facility] [place] mg EC 3-28 mg by ity of tablet 13:27: mouth. [place] [address] Medical Branch aspirin 81 2022-0 Yes 325mg Take 325 [facility] [place] mg EC 3-28 mg by ity of tablet 13:27: mouth. [place] [address] Medical Branch aspirin 81 2022-0 Yes 325mg Take 325 [facility] [place] mg EC 3-28 mg by ity of tablet 13:27: mouth. [place] [address] Medical Branch aspirin 81 2022-0 Yes 325mg Take 325 [facility] [place] mg EC 3-28 mg by ity of tablet 13:27: mouth. [place] [address] Medical Branch aspirin 81 2022-0 Yes 325mg Take 325 [facility] [place] mg EC 3-28 mg by ity of tablet 13:27: mouth. [place] [address] Medical Branch aspirin 81 2022-0 Yes 325mg Take 325 [facility] [place] mg EC 3-28 mg by ity of tablet 13:27: mouth. [place] [address] Medical Branch aspirin 81 2022-0 Yes 325mg Take 325 [facility] mg EC 3-28 mg by ity of tablet 13:27: mouth. [place] [address] Medical Branch aspirin 81 2022-0 Yes 325mg Take 325 [facility] mg EC 3-28 mg by ity of tablet 13:27: mouth. [place] [address] Medical Branch aspirin 81 2022-0 Yes 325mg Take 325 [facility] [place] mg EC 3-28 mg by ity of tablet 13:27: mouth. [place] [address] Medical Branch aspirin 81 3-0 Yes 325mg Take 325 [facility] [place] mg EC 3-28 mg by ity of tablet 13:27: mouth. [place] [address] Medical Branch aspirin 81 2022-0 Yes 325mg Take 325 [facility] [place] mg EC 3-28 mg by ity of tablet 13:27: mouth. [place] [address] Medical Branch aspirin 81 2022-0 Yes 325mg Take 325 [facility] [place] mg EC 3-28 mg by ity of tablet 13:27: mouth. [place] [address] Medical Branch aspirin 81 2022-0 Yes 325mg Take 325 [facility] [place] mg EC 3-28 mg by ity of tablet 13:27: mouth. [place] [address] Medical Branch aspirin 81 2022-0 Yes 325mg Take 325 [facility] mg EC 3-28 mg by ity of tablet 13:27: mouth. [place] [address] Medical Branch aspirin 81 2022-0 Yes 325mg Take 325 [facility] [place] mg EC 3-28 mg by ity of tablet 13:27: mouth. [place] [address] Medical Branch aspirin 81 2022-0 Yes 325mg Take 325 [facility] mg EC 3-28 mg by ity of tablet 13:27: mouth. [place] [address] Medical Branch aspirin 81 2022-0 Yes 325mg Take 325 [facility] mg EC 3-28 mg by ity of tablet 13:27: mouth. [place] [address] Medical Branch aspirin 81 2022-0 Yes 325mg Take 325 [facility] mg EC 3-28 mg by ity of tablet 13:27: mouth. [place] [address] Medical Branch aspirin 81 2022-0 Yes 325mg Take 325 [facility] mg EC 3-28 mg by ity of tablet 13:27: mouth. [place] [address] Medical Branch aspirin 81 2022-0 Yes 325mg Take 325 [facility] mg EC 3-28 mg by ity of tablet 13:27: mouth. [place] [address] Medical Branch aspirin 81 2022-0 Yes 325mg Take 325 [facility] mg EC 3-28 mg by ity of tablet 13:27: mouth. [place] [address] Medical Branch aspirin 81 2022-0 Yes 325mg Take 325 [facility] mg EC 3-28 mg by ity of tablet 13:27: mouth. [place] [address] Medical Branch aspirin 81 2022-0 Yes 325mg Take 325 [facility] mg EC 3-28 mg by ity of tablet 13:27: mouth. [place] [address] Medical Branch aspirin 81 2022-0 Yes 325mg Take 325 [facility] mg EC 3-28 mg by ity of tablet 13:27: mouth. [place] [address] [facility] Branch aspirin 81 3-0 Yes 325mg Take 325 [facility] mg EC 3-28 mg by ity of tablet 13:27: mouth. [place] [address] [facility] Branch aspirin 81 2022-0 Yes 325mg Take 325 [facility] mg EC 3-28 mg by ity of tablet 13:27: mouth. [place] [address] [facility] Branch aspirin 81 2022-0 Yes 325mg Take 325 [facility] mg EC 3-28 mg by ity of tablet 13:27: mouth. [place] [address] Medical Branch aspirin 81 2022-0 Yes 325mg Take 325 [facility] mg EC 3-28 mg by ity of tablet 13:27: mouth. [place] [address] [facility] Branch aspirin 81 2022-0 Yes 325mg Take 325 [facility] mg EC 3-28 mg by ity of tablet 13:27: mouth. [place] [address] [facility] Branch aspirin 81 2022-0 Yes 325mg Take 325 [facility] mg EC 3-28 mg by ity of tablet 13:27: mouth. [place] [address] [facility] Branch aspirin 81 2022-0 Yes 325mg Take 325 [facility] mg EC 3-28 mg by ity of tablet 13:27: mouth. [place] [address] [facility] Branch aspirin 81 2022-0 Yes 325mg Take 325 [facility] mg EC 3-28 mg by ity of tablet 13:27: mouth. [place] [address] [facility] Branch aspirin 81 2022-0 Yes 325mg Take 325 [facility] mg EC 3-28 mg by ity of tablet 13:27: mouth. [place] [address] [facility] Branch aspirin 81 2022-0 Yes 325mg Take 325 [facility] mg EC 3-28 mg by ity of tablet 13:27: mouth. [place] [address] [facility] Branch aspirin 81 2022-0 Yes 325mg Take 325 [facility] mg EC 3-28 mg by ity of tablet 13:27: mouth. [address] Branch aspirin 81 2022-0 Yes 325mg Take 325 [facility] mg EC 3-28 mg by ity of tablet 13:27: mouth. [address] Branch aspirin 81 2022-0 Yes 325mg Take 325 [facility] mg EC 3-28 mg by ity of tablet 13:27: mouth. [place] [address] Medical Branch aspirin 81 2022-0 Yes 325mg Take 325 [facility] mg EC 3-28 mg by ity of tablet 13:27: mouth. [place] [address] [facility] Branch aspirin 81 3-0 Yes 325mg Take 325 [facility] mg EC 3-28 mg by ity of tablet 13:27: mouth. [place] [address] [facility] Branch aspirin 81 2022-0 Yes 325mg Take 325 [facility] mg EC 3-28 mg by ity of tablet 13:27: mouth. [address] Branch aspirin 81 2022-0 Yes 325mg Take 325 [facility] mg EC 3-28 mg by ity of tablet 13:27: mouth. [place] [address] Medical Branch aspirin 81 2022-0 Yes 325mg Take 325 [facility] mg EC 3-28 mg by ity of tablet 13:27: mouth. [place] [address] [facility] Branch aspirin 81 2022-0 Yes 325mg Take 325 [facility] mg EC 3-28 mg by ity of tablet 13:27: mouth. [place] [address] [facility] Branch aspirin 81 2022-0 Yes 325mg Take 325 [facility] mg EC 3-28 mg by ity of tablet 13:27: mouth. [place] [address] [facility] Branch aspirin 81 2022-0 Yes 325mg Take 325 [facility] mg EC 3-28 mg by ity of tablet 13:27: mouth. [place] [address] [facility] Branch aspirin 81 2022-0 Yes 325mg Take 325 [facility] mg EC 3-28 mg by ity of tablet 13:27: mouth. [place] [address] [facility] Branch aspirin 81 2022-0 Yes 325mg Take 325 [facility] mg EC 3-28 mg by ity of tablet 13:27: mouth. [place] [address] [facility] Branch aspirin 81 2022-0 Yes 325mg Take 325 [facility] mg EC 3-28 mg by ity of tablet 13:27: mouth. [place] [address] [facility] Branch aspirin 81 2022-0 Yes 325mg Take 325 [facility] mg EC 3-28 mg by ity of tablet 13:27: mouth. [place] [address] [facility] Branch aspirin 81 2022-0 Yes 325mg Take 325 [facility] mg EC 3-28 mg by ity of tablet 13:27: mouth. [place] [address] [facility] Branch aspirin 81 2022-0 Yes 325mg Take 325 [facility] mg EC 3-28 mg by ity of tablet 13:27: mouth. [place] [address] [facility] Branch aspirin 81 2022-0 Yes 325mg Take 325 [facility] mg EC 3-28 mg by ity of tablet 13:27: mouth. [place] [address] [facility] Branch aspirin 81 2022-0 Yes 325mg Take 325 [facility] mg EC 3-28 mg by ity of tablet 13:27: mouth. [place] [address] [facility] Branch aspirin 81 2022-0 Yes 325mg Take 325 [facility] mg EC 3-28 mg by ity of tablet 13:27: mouth. [place] [address] [facility] Branch aspirin 81 2022-0 Yes 325mg Take 325 [facility] mg EC 3-28 mg by ity of tablet 13:27: mouth. [place] [address] [facility] Branch aspirin 81 2022-0 Yes 325mg Take 325 [facility] mg EC 3-28 mg by ity of tablet 13:27: mouth. [place] [address] [facility] Branch aspirin 81 2022-0 Yes 325mg Take 325 [facility] mg EC 3-28 mg by ity of tablet 13:27: mouth. [place] [address] [facility] Branch aspirin 81 2022-0 Yes 325mg Take 325 [facility] mg EC 3-28 mg by ity of tablet 13:27: mouth. [place] [address] [facility] Branch aspirin 81 2022-0 Yes 325mg Take 325 [facility] mg EC 3-28 mg by ity of tablet 13:27: mouth. [place] [address] [facility] Branch aspirin 81 2022-0 Yes 325mg Take 325 [facility] mg EC 3-28 mg by ity of tablet 13:27: mouth. [place] [address] [facility] Branch aspirin 81 2022-0 Yes 325mg Take 325 [facility] mg EC 3-28 mg by ity of tablet 13:27: mouth. [place] [address] [facility] Branch aspirin 81 2022-0 Yes 325mg Take 325 [facility] mg EC 3-28 mg by ity of tablet 13:27: mouth. [place] [address] [facility] Branch aspirin 81 2022-0 Yes 325mg Take 325 [facility] mg EC 3-28 mg by ity of tablet 13:27: mouth. [place] [address] [facility] Branch aspirin 81 2022-0 Yes 325mg Take 325 [facility] mg EC 3-28 mg by ity of tablet 13:27: mouth. [place] [address] [facility] Branch aspirin 81 2022-0 Yes 325mg Take 325 [facility] mg EC 3-28 mg by ity of tablet 13:27: mouth. [place] [address] [facility] Branch aspirin 81 2022-0 Yes 325mg Take 325 [facility] mg EC 3-28 mg by ity of tablet 13:27: mouth. [place] [address] [facility] Branch aspirin 81 3-0 Yes 325mg Take 325 [facility] mg EC 3-28 mg by ity of tablet 13:27: mouth. [place] [address] [facility] Branch aspirin 81 3-0 Yes 325mg Take 325 [facility] mg EC 3-28 mg by ity of tablet 13:27: mouth. [place] [address] [facility] Branch aspirin 81 3-0 Yes 325mg Take 325 [facility] mg EC 3-28 mg by ity of tablet 13:27: mouth. [address] Branch ezetimibe 2023-0 Yes [id number] 10mg Take 1 [facility] (ZETIA) 10 3-28 tablet by [facility]y of mg tablet 00:00: mouth [place] the Medical morning. Branch ezetimibe 2023-0 Yes [id number] 10mg Take 1 [facility] (ZETIA) 10 3-28 tablet by [facility] of mg tablet 00:00: mouth [place] the Medical morning. Branch ezetimibe 2023-0 Yes [id number] 10mg Take 1 [facility] (ZETIA) 10 3-28 tablet by [facility]y of mg tablet 00:00: mouth [place] the Medical morning. Branch ezetimibe 2023-0 Yes [id number] 10mg Take 1 [facility] (ZETIA) 10 3-28 tablet by [facility] of mg tablet 00:00: mouth [place] the Medical morning. Branch ezetimibe 2023-0 Yes [id number] 10mg Take 1 [facility] (ZETIA) 10 3-28 tablet by ity of mg tablet 00:00: mouth in [place] [facility] [place] ezetimibe 3-0 Yes [id number] 10mg Take 1 [facility] (ZETIA) 10 3-28 tablet by [facility] mg tablet [place]: [place] [facility] [place]. Branch ezetimibe 3-0 Yes [id number] 10mg Take 1 [facility] (ZETIA) 10 3-28 tablet by [facility] tablet [place]: [place] the [facility] morning. Branch ezetimibe 2023-0 Yes [id number] 10mg Take 1 [facility] (ZETIA) 10 3-28 tablet by [facility] mg tablet 00:[place]: [place] the [facility] morning. Branch ezetimibe 2023-0 Yes [id number] 10mg Take 1 [facility] (ZETIA) 10 3-28 tablet by [facility] tablet 00:[place]: [place] the [facility] morning. Branch ezetimibe 2023-0 Yes [id number] 10mg Take 1 [facility] (ZETIA) 10 3-28 tablet by [facility] tablet [place]: [place] the [facility] morning. Branch ezetimibe 2023-0 Yes [id number] 10mg Take 1 [facility] (ZETIA) 10 3-28 tablet by [facility] mg tablet 00:[place]: [place] the [facility] morning. Branch ezetimibe 2023-0 Yes [id number] 10mg Take 1 [facility] (ZETIA) 10 3-28 tablet by [facility] mg tablet [place]: [place] the [facility] morning. Branch ezetimibe 2023-0 Yes [id number] 10mg Take 1 [facility] (ZETIA) 10 3-28 tablet by [facility] mg tablet 00:[place]: [place] the [facility] morning. Branch ezetimibe 2023-0 Yes [id number] 10mg Take 1 [facility] (ZETIA) 10 3-28 tablet by [facility] mg tablet 00:[place]: [place] the [facility] morning. Branch ezetimibe 2023-0 Yes [id number] 10mg Take 1 [facility] (ZETIA) 10 3-28 tablet by [facility] mg tablet 00:[place]: [place] the [facility] morning. Branch ezetimibe 2023-0 Yes [id number] 10mg Take 1 [facility] (ZETIA) 10 3-28 tablet by [facility] mg tablet 00:00: [place] the [facility] morning. Branch ezetimibe 2023-0 Yes [id number] 10mg Take 1 [facility] (ZETIA) 10 3-28 tablet by [facility] mg tablet 00:[place]: [place] the [facility] morning. Branch ezetimibe 2023-0 Yes [id number] 10mg Take 1 [facility] (ZETIA) 10 3-28 tablet by [facility] mg tablet 00:[place]: [place] the [facility] morning. Branch ezetimibe 2023-0 Yes [id number] 10mg Take 1 [facility] (ZETIA) 10 3-28 tablet by [facility] mg tablet 00:00: [place] the [facility] morning. Branch ezetimibe 2023-0 Yes [id number] 10mg Take 1 [facility] (ZETIA) 10 3-28 tablet by [facility] mg tablet 00:00: [place] the Medical morning. Branch ezetimibe 2023-0 Yes [id number] 10mg Take 1 [facility] (ZETIA) 10 3-28 tablet by [facility] mg tablet 00:00: [place] the [facility] morning. Branch ezetimibe 2023-0 Yes [id number] 10mg Take 1 [facility] (ZETIA) 10 3-28 tablet by [facility] mg tablet 00:[place]: [place] the Medical morning. Branch ezetimibe 2023-0 Yes [id number] 10mg Take 1 [facility] (ZETIA) 10 3-28 tablet by [facility] mg tablet 00:00: [place] the Medical morning. Branch ezetimibe 2023-0 Yes [id number] 10mg Take 1 [facility] (ZETIA) 10 3-28 tablet by [facility] mg tablet 00:00: [place] the [facility] morning. Branch ezetimibe 2023-0 Yes [id number] 10mg Take 1 [facility] (ZETIA) 10 3-28 tablet by [facility] mg tablet 00:00: [place] the Medical morning. Branch ezetimibe 3-0 Yes [id number] 10mg Take 1 [facility] (ZETIA) 10 3-28 tablet by [facility] mg tablet 00:00: [place] the Medical morning. Branch ezetimibe 3-0 Yes [id number] 10mg Take 1 [facility] (ZETIA) 10 3-28 tablet by [facility] mg tablet 00:00: [place] the Medical morning. Branch ezetimibe 2023-0 Yes [id number] 10mg Take 1 [facility] (ZETIA) 10 3-28 tablet by [facility] mg tablet 00:00: [place] the Medical morning. Branch ezetimibe 2023-0 Yes [id number] 10mg Take 1 [facility] (ZETIA) 10 3-28 tablet by [facility] mg tablet 00:00: [place] the Medical morning. Branch ezetimibe 2023-0 Yes [id number] 10mg Take 1 [facility] (ZETIA) 10 3-28 tablet by [facility] mg tablet 00:00: [place] the Medical morning. Branch ezetimibe 2023-0 Yes [id number] 10mg Take 1 [facility] (ZETIA) 10 3-28 tablet by [facility] mg tablet 00:00: [place] the Medical morning. Branch ezetimibe 2023-0 Yes [id number] 10mg Take 1 [facility] (ZETIA) 10 3-28 tablet by [facility] mg tablet 00:00: [place] the Medical morning. Branch ezetimibe 2023-0 Yes [id number] 10mg Take 1 [facility] (ZETIA) 10 3-28 tablet by [facility] mg tablet 00:00: [place] the Medical morning. Branch ezetimibe 2023-0 Yes [id number] 10mg Take 1 [facility] (ZETIA) 10 3-28 tablet by [facility] mg tablet 00:00: [place] the Medical morning. Branch ezetimibe 2023-0 Yes [id number] 10mg Take 1 [facility] (ZETIA) 10 3-28 tablet by [facility] mg tablet 00:00: [place] the Medical morning. Branch ezetimibe 2023-0 Yes [id number] 10mg Take 1 [facility] (ZETIA) 10 3-28 tablet by [facility] mg tablet 00:00: [place] the [facility] morning. Branch ezetimibe 2023-0 Yes [id number] 10mg Take 1 [facility] (ZETIA) 10 3-28 tablet by [facility] mg tablet 00:00: [place] the [facility] morning. Branch ezetimibe 2023-0 Yes [id number] 10mg Take 1 [facility] (ZETIA) 10 3-28 tablet by [facility] mg tablet 00:00: [place] the [facility] morning. Branch ezetimibe 2023-0 2023- No [id number] 10mg Take 1 U nivers (ZETIA) 10 3-28 05-07 tablet by it[facility] of mg tablet 00:00: 00:00 mouth in [place] 00 :00 the Medical morning. Branch ezetimibe 2023-0 2023- No [id number] 10mg Take 1 [facility] n[facility] (ZETIA) 10 3-28 05-07 tablet by ity of mg tablet 00:00: 00:00 mouth in [place] 00 :00 the Medical morning. Branch ezetimibe 2023-0 2023- No [id number] 10mg Take 1 [facility] n[facility] (ZETIA) 10 05-12 05-07 tablet by it[facility] of mg tablet 00:00: 00:00 mouth [place] 00 :00 the [facility]. Branch rivastigmin No [id number] 1{patch Apply 1 [facility] e 4.6 mg/24 3-28 04-28 } Patch to ity of hour patch 00:00: 04:59 skin in [place] 00 :00 the [facility] for 30 days. rivastigmin No [id number] 1{patch Apply 1 [facility] e 4.6 mg/24 3-28 04-28 } Patch to ity of hour patch 00:00: 04:59 skin in [place] :00 the [facility] for 30 days. rivastigmin No [id number] 1{patch Apply 1 [facility] e 4.6 mg/24 3-28 04-28 } Patch to ity of hour patch 00:00: 04:59 skin in [place] 00 :00 the [facility] for 30 days. rivastigmin No [id number] 1{patch Apply 1 [facility] e 4.6 mg/24 3-28 04-28 } Patch to ity of hour patch 00:00: 04:59 skin in [place] 00 :00 the [facility] for 30 days. rivastigmin No [id number] 1{patch Apply 1 [facility] e 4.6 mg/24 3-28 04-28 } Patch to ity of hour patch 00:00: 04:59 skin in [place] 00 :00 the [facility] for 30 days. rivastigmin No [id number] 1{patch Apply 1 [facility] e 4.6 mg/24 3-28 04-28 } Patch to ity of hour patch 00:00: 04:59 skin in [place] 00 :00 the [facility] for 30 days. rivastigmin No [id number] 1{patch Apply 1 [facility] e 4.6 mg/24 3-28 04-28 } Patch to ity of hour patch 00:00: 04:59 skin in [place] 00 :00 the [facility] for 30 days. rivastigmin No [id number] 1{patch Apply 1 [facility] e 4.6 mg/24 3-28 04-28 } Patch to ity of hour patch 00:00: 04:59 [place] in [place] 00 :00 the [facility] morning Branch for 30 days. rivastigmin No [id number] 1{patch Apply 1 [facility] e 4.6 mg/24 3-28 04-28 } Patch to ity of hour patch 00:00: 04:59 skin in [place] 00 :00 the [facility] morning Branch for 30 days. rivastigmin No [id number] 1{patch Apply 1 [facility] e 4.6 mg/24 3-28 04-28 } Patch to ity of hour patch 00:00: 04:59 skin in [place] 00 :00 the [facility] Branch for 30 days. rivastigmin 2022- No [id number] 1{patch Apply 1 [facility] e 4.6 mg/24 3-28 04-28 } Patch to ity of hour patch 00:00: 04:59 skin in [place] 00 :00 the [facility] for 30 days. rivastigmin No [id number] 1{patch Apply 1 [facility] e 4.6 mg/24 3-28 04-28 } Patch to ity of hour patch 00:00: 04:59 skin in [place] 00 :00 the [facility] for 30 days. rivastigmin No [id number] 1{patch Apply 1 [facility] e 4.6 mg/24 3-28 04-28 } Patch to ity of hour patch 00:00: 04:59 skin in [place] 00 :00 the [facility] Branch for 30 days. rivastigmin No [id number] 1{patch Apply 1 [facility] e 4.6 mg/24 3-28 04-28 } Patch to ity of hour patch 00:00: 04:59 skin in [place] 00 :00 the [facility] morning Branch for 30 days. rivastigmin No [id number] 1{patch Apply 1 [facility] e 4.6 mg/24 3-28 04-28 } Patch to ity of hour patch 00:00: 04:59 skin in [place] 00 :00 the [facility] morning Branch for 30 days. rivastigmin 2022- No [id number] 1{patch Apply 1 [facility] e 4.6 mg/24 3-28 04-28 } Patch to ity of hour patch 00:00: 04:59 skin in [place] 00 :00 the [facility] morning Branch for 30 days. rivastigmin 2022- No [id number] 1{patch Apply 1 [facility] e 4.6 mg/24 3-28 04-28 } Patch to [facility]y of hour patch 00:00: 04:59 skin in [place] 00 :00 the [facility] morning Branch for 30 days. rivastigmin 2022- No [id number] 1{patch Apply 1 [facility] e 4.6 mg/24 3-28 04-28 } Patch to ity of hour patch 00:00: 04:59 skin in [place] 00 :00 the [facility] morning Branch for 30 days. rivastigmin 2022- No [id number] 1{patch Apply 1 [facility] e 4.6 mg/24 3-28 04-28 } Patch to ity of hour patch 00:00: 04:59 skin in [place] 00 :00 the [facility] morning Branch for 30 days. rivastigmin 2022- No [id number] 1{patch Apply 1 [facility] e 4.6 mg/24 3-28 04-28 } Patch to [facility]y of hour patch 00:00: 04:59 skin in [place] 00 :00 the [facility] morning Branch for 30 days. rivastigmin 2022- No [id number] 1{patch Apply 1 [facility] e 4.6 mg/24 3-28 04-28 } Patch to ity of hour patch 00:00: 04:59 skin in [place] 00 :00 the [facility] morning Branch for 30 days. rivastigmin 2022- No [id number] 1{patch Apply 1 [facility] e 4.6 mg/24 3-28 04-28 } Patch to ity of hour patch 00:00: 04:59 skin in [place] 00 :00 the [facility] morning Branch for 30 days. rivastigmin 2022- No [id number] 1{patch Apply 1 [facility] e 4.6 mg/24 3-28 04-28 } Patch to ity of hour patch 00:00: 04:59 skin in [place] 00 :00 the Medical morning Branch for 30 days. rivastigmin 2022- No [id number] 1{patch Apply 1 [facility] e 4.6 mg/24 3-28 04-28 } Patch to ity of hour patch 00:00: 04:59 skin in [place] 00 :00 the Medical morning Branch for 30 days. rivastigmin 2022- No [id number] 1{patch Apply 1 [facility] e 4.6 mg/24 3-28 04-28 } Patch to ity of hour patch 00:00: 04:59 skin in [place] 00 :00 the Medical morning Branch for 30 days. rivastigmin 2022- No [id number] 1{patch Apply 1 [facility] e 4.6 mg/24 3-28 04-28 } Patch to ity of hour patch 00:00: 04:59 skin in [place] 00 :00 the Medical morning Branch for 30 days. rivastigmin 2022- No [id number] 1{patch Apply 1 [facility] e 4.6 mg/24 3-28 04-28 } Patch to ity of hour patch 00:00: 04:59 skin in [place] 00 :00 the Medical morning Branch for 30 days. rivastigmin 2022- No [id number] 1{patch Apply 1 [facility] e 4.6 mg/24 3-28 04-28 } Patch to ity of hour patch 00:00: 04:59 skin in [place] 00 :00 the Medical morning Branch for 30 days. rivastigmin 2022- No [id number] 1{patch Apply 1 [facility] e 4.6 mg/24 3-28 04-28 } Patch to ity of hour patch 00:00: 04:59 skin in [place] 00 :00 the Medical morning Branch for 30 days. rivastigmin 2022- No [id number] 1{patch Apply 1 [facility] e 4.6 mg/24 3-28 04-28 } Patch to ity of hour patch 00:00: 04:59 skin in [place] 00 :00 the Medical morning Branch for 30 days. rivastigmin 2022- No [id number] 1{patch Apply 1 [facility] e 4.6 mg/24 3-28 04-28 } Patch to ity of hour patch 00:00: 04:59 skin in [place] 00 :00 the Medical morning Branch for 30 days. Cholecalcif 2023-0 Yes 125ug Take 125 [facility] [place], 3-20 mcg by ity of Vitamin D3, 14:47: mouth[place] 125 mcg 49 Medical (5,000 Branch unit) tablet multivitami 2023-0 Yes 1{tbl} Take 1 Un b[facility]i n tablet 3-20 tablet by ity of 14:47: mouth in [place] [address] the Medical morning. Branch Cholecalcif 2023-0 Yes 125ug Take 125 U nivers dwight, 3-20 mcg by ity of Vitamin D3, 14:47: mouth. [place] 125 mcg 49 Medical (5,000 Branch unit) tablet multivitami 3-0 Yes 1{tbl} Take 1 Un bhumi n tablet 3-20 tablet by ity of 14:47: mouth in [place] [address] the Medical morning. Branch Cholecalcif 3-0 Yes 125ug Take 125 U nivers [place]ight, 3-20 mcg by ity of Vitamin D3, 14:47: [place]. [place] 125 [place]cg 49 Medical (5,000 Branch unit) tablet multivitami 2022-0 Yes 1{tbl} Take 1 Un b[facility]i n tablet 3-20 tablet by ity of 14:47: mouth in [place] [address] the Medical morning. Branch Cholecalcif 3-0 Yes 125ug Take 125 U nivers dwight, 3-20 mcg by ity of Vitamin D3, 14:47: [place] 125 mcg 49 Medical (5,000 Branch unit) tablet multivitami 3-0 Yes 1{tbl} Take 1 Un bhumi n tablet 3-20 tablet by ity of 14:47: mouth in [place] [address] the Medical morning. Branch Cholecalcif 2023-0 Yes 125ug Take 125 U nivers [place]ight, 3-20 mcg by ity of Vitamin D3, 14:47: mouth[place] 125 mcg 49 Medical (5,000 Branch unit) tablet multivitami 2023-0 Yes 1{tbl} Take 1 Un b[facility]i n tablet 3-20 tablet by ity of 14:47: mouth in [place] [address] the Medical morning. Branch Cholecalcif 2023-0 Yes 125ug Take 125 U nivers dwight, 3-20 mcg by ity of Vitamin D3, 14:47: mouth. [place] 125 mcg 49 Medical (5,000 Branch unit) tablet multivitami 2022-0 Yes 1{tbl} Take 1 Un b[facility]i n tablet 3-20 tablet by ity of 14:47: mouth in [place] [address] the Medical morning. Branch Cholecalcif 2022-0 Yes 125ug Take 125 U nivers dwight, 3-20 mcg by ity of Vitamin D3, 14:47: mouth[place] 125 mcg 49 Medical (5,000 Branch unit) tablet multivitami 2022-0 Yes 1{tbl} Take 1 Un b[facility]i n tablet 3-20 tablet by ity of 14:47: mouth in [place] [address] the Medical morning. Branch Cholecalcif 0 Yes 125ug Take 125 U nivers dwight, 3-20 mcg by ity of Vitamin D3, 14:47: mouth. [place] 125 mcg 49 Medical (5,000 Branch unit) tablet multivitami 2022-0 Yes 1{tbl} Take 1 Un bhumi n tablet 3-20 tablet by ity of 14:47: mouth in [place] [address] the Medical morning. Branch Cholecalcif 2022-0 Yes 125ug Take 125 U nivers dwight, 3-20 mcg by ity of Vitamin D3, 14:47: [place] 125 mcg 49 Medical (5,000 Branch unit) tablet multivitami 2022-0 Yes 1{tbl} Take 1 Un bhumi n tablet 3-20 tablet by ity of 14:47: mouth in [place] [address] the Medical morning. Branch Cholecalcif 2022-0 Yes 125ug Take 125 U nivers dwight, 3-20 mcg by ity of Vitamin D3, 14:47: [place]. [place] 125 mcg 49 Medical (5,000 Branch unit) tablet multivitami 2022-0 Yes 1{tbl} Take 1 Un bhumi n tablet 3-20 tablet by ity of 14:47: mouth in [place] [address] the Medical morning. Branch Cholecalcif 2022-0 Yes 125ug Take 125 U nivers dwight, 3-20 mcg by ity of Vitamin D3, 14:47: [place] 125 mcg 49 Medical (5,000 Branch unit) tablet multivitami 2022-0 Yes 1{tbl} Take 1 Un bhumi n tablet 3-20 tablet by ity of 14:47: mouth in [place] [address] the Medical morning. Branch Cholecalcif 2022-0 Yes 125ug Take 125 U nivers dwight, 3-20 mcg by ity of Vitamin D3, 14:47: mouth. [place] 125 mcg 49 Medical (5,000 Branch unit) tablet multivitami 2022-0 Yes 1{tbl} Take 1 Un bhumi n tablet 3-20 tablet by ity of 14:47: mouth in [place] [address] the Medical morning. Branch Cholecalcif 2022-0 Yes 125ug Take 125 U nivers dwihgt, 3-20 mcg by ity of Vitamin D3, 14:47: [place] 125 mcg 49 Medical (5,000 Branch unit) tablet multivitami 2022-0 Yes 1{tbl} Take 1 Un bhumi n tablet 3-20 tablet by ity of 14:47: mouth in [place] [address] the Medical morning. Branch Cholecalcif 2022-0 Yes 125ug Take 125 U nivers dwight, 3-20 mcg by ity of Vitamin D3, 14:47: [place] 125 mcg 49 Medical (5,000 Branch unit) tablet multivitami 2022-0 Yes 1{tbl} Take 1 Un bhumi n tablet 3-20 tablet by ity of 14:47: mouth in [place] [address] the Medical morning. Branch Cholecalcif 2022-0 Yes 125ug Take 125 U nivers dwight, 3-20 mcg by ity of Vitamin D3, 14:47: mouth[place] 125 mcg 49 Medical (5,000 Branch unit) tablet multivitami 2022-0 Yes 1{tbl} Take 1 Un bhumi n tablet 3-20 tablet by ity of 14:47: mouth in [place] [address] the Medical morning. Branch Cholecalcif 2022-0 Yes 125ug Take 125 U nivers dwight, 3-20 mcg by ity of Vitamin D3, 14:47: [place]. [place] 125 mcg 49 Medical (5,000 Branch unit) tablet multivitami 2022-0 Yes 1{tbl} Take 1 Un bhumi n tablet 3-20 tablet by ity of 14:47: mouth in [place] [address] the Medical morning. Branch Cholecalcif 2022-0 Yes 125ug Take 125 U nivers dwight, 3-20 mcg by ity of Vitamin D3, 14:47: mouth. [place] 125 mcg 49 Medical (5,000 Branch unit) tablet multivitami 2022-0 Yes 1{tbl} Take 1 Un bhumi n tablet 3-20 tablet by ity of 14:47: mouth in [place] [address] the Medical morning. Branch Cholecalcif 2022-0 Yes 125ug Take 125 U nivers dwight, 3-20 mcg by ity of Vitamin D3, 14:47: [place]. [place] 125 mcg 49 Medical (5,000 Branch unit) tablet multivitami 2022-0 Yes 1{tbl} Take 1 Un bhumi n tablet 3-20 tablet by ity of 14:47: mouth in [place] [address] the Medical morning. Branch Cholecalcif 0 Yes 125ug Take 125 U nivers dwight, 3-20 mcg by ity of Vitamin D3, 14:47: [place] 125 mcg 49 Medical (5,000 Branch unit) tablet multivitami 2022-0 Yes 1{tbl} Take 1 Un bhumi n tablet 3-20 tablet by ity of 14:47: mouth in [place] [address] the Medical morning. Branch Cholecalcif 2022-0 Yes 125ug Take 125 U nivers dwight, 3-20 mcg by ity of Vitamin D3, 14:47: [place] 125 mcg 49 Medical (5,000 Branch unit) tablet multivitami 2022-0 Yes 1{tbl} Take 1 Un bhumi n tablet 3-20 tablet by ity of 14:47: mouth in [place] [address] the Medical morning. Branch Cholecalcif 2022-0 Yes 125ug Take 125 U nivers dwight, 3-20 mcg by ity of Vitamin D3, 14:47: mouth[place] 125 mcg 49 Medical (5,000 Branch unit) tablet multivitami 2022-0 Yes 1{tbl} Take 1 Un b[facility]i n tablet 3-20 tablet by ity of 14:47: mouth in [place] [address] the Medical morning. Branch Cholecalcif 2022-0 Yes 125ug Take 125 U nivers dwight, 3-20 mcg by ity of Vitamin D3, 14:47: mouth[place] 125 mcg 49 Medical (5,000 Branch unit) tablet multivitami 2022-0 Yes 1{tbl} Take 1 Un b[facility]i n tablet 3-20 tablet by ity of 14:47: mouth in [place] [address] the Medical morning. Branch Cholecalcif 2022-0 Yes 125ug Take 125 U nivers dwight, 3-20 mcg by ity of Vitamin D3, 14:47: mouth[place] 125 mcg 49 Medical (5,000 Branch unit) tablet multivitami 2022-0 Yes 1{tbl} Take 1 Un b[facility]i n tablet 3-20 tablet by ity of 14:47: mouth in [place] [address] the Medical morning. Branch Cholecalcif 2022-0 Yes 125ug Take 125 U nivers dwight, 3-20 mcg by ity of Vitamin D3, 14:47: mouth. [place] 125 mcg 49 Medical (5,000 Branch unit) tablet multivitami 2022-0 Yes 1{tbl} Take 1 Un bhumi n tablet 3-20 tablet by ity of 14:47: mouth in [place] [address] the Medical morning. Branch Cholecalcif 2022-0 Yes 125ug Take 125 U nivers dwight, 3-20 mcg by ity of Vitamin D3, 14:47: mouth. [place] 125 mcg 49 Medical (5,000 Branch unit) tablet multivitami 2022-0 Yes 1{tbl} Take 1 Un bhumi n tablet 3-20 tablet by ity of 14:47: mouth in [place] [address] the Medical morning. Branch Cholecalcif 2022-0 Yes 125ug Take 125 U nivers dwight, 3-20 mcg by ity of Vitamin D3, 14:47: mouth[place] 125 mcg 49 Medical (5,000 Branch unit) tablet multivitami 2022-0 Yes 1{tbl} Take 1 Un b[facility]i n tablet 3-20 tablet by ity of 14:47: mouth in [place] [address] the Medical morning. Branch Cholecalcif 2022-0 Yes 125ug Take 125 U nivers dwight, 3-20 mcg by ity of Vitamin D3, 14:47: [place] 125 [place]cg 49 Medical (5,000 Branch unit) tablet multivitami 2022-0 Yes 1{tbl} Take 1 Un b[facility]i n tablet 3-20 tablet by ity of 14:47: mouth in [place] [address] the Medical morning. Branch Cholecalcif 2022-0 Yes 125ug Take 125 U nivers dwight, 3-20 mcg by ity of Vitamin D3, 14:47: mouth[place] 125 mcg 49 Medical (5,000 Branch unit) tablet multivitami 2022-0 Yes 1{tbl} Take 1 Un b[facility] n tablet 3-20 tablet by ity of 14:47: mouth in [place] [address] the Medical morning. Branch Cholecalcif 2022-0 Yes 125ug Take 125 U nivers dwight, 3-20 mcg by ity of Vitamin D3, 14:47: mouth[place] 125 mcg 49 Medical (5,000 Branch unit) tablet multivitami 2022-0 Yes 1{tbl} Take 1 Un b[facility] n tablet 3-20 tablet by ity of 14:47: mouth in [place] [address] the Medical morning. Branch Cholecalcif 0 Yes 125ug Take 125 U nivers dwight, 3-20 mcg by ity of Vitamin D3, 14:47: [place] 125 mcg 49 Medical (5,000 Branch unit) tablet multivitami 2022-0 Yes 1{tbl} Take 1 Un bhumi n tablet 3-20 tablet by ity of 14:47: mouth in [place] [address] the Medical morning. Branch Cholecalcif 2022-0 Yes 125ug Take 125 U nivers dwight, 3-20 mcg by ity of Vitamin D3, 14:47: [place] 125 mcg 49 Medical (5,000 Branch unit) tablet multivitami 2022-0 Yes 1{tbl} Take 1 Un bhumi n tablet 3-20 tablet by ity of 14:47: mouth in [place] [address] the Medical morning. Branch Cholecalcif 2022-0 Yes 125ug Take 125 U nivers dwight, 3-20 mcg by ity of Vitamin D3, 14:47: [place] 125 [place]cg 49 Medical (5,000 Branch unit) tablet multivitami 2022-0 Yes 1{tbl} Take 1 Un bhumi n tablet 3-20 tablet by ity of 14:47: mouth in [place] [address] the Medical morning. Branch Cholecalcif 2022-0 Yes 125ug Take 125 U nivers dwight, 3-20 mcg by ity of Vitamin D3, 14:47: [place] 125 [place]cg 49 Medical (5,000 Branch unit) tablet multivitami 2022-0 Yes 1{tbl} Take 1 Un b[facility]i n tablet 3-20 tablet by ity of 14:47: mouth in [place] [address] the Medical morning. Branch Cholecalcif 2022-0 Yes 125ug Take 125 U nivers dwight, 3-20 mcg by ity of Vitamin D3, 14:47: [place] 125 [place]cg 49 Medical (5,000 Branch unit) tablet multivitami 2022-0 Yes 1{tbl} Take 1 Un bhumi n tablet 3-20 tablet by ity of 14:47: mouth in [place] [address] the Medical morning. Branch Cholecalcif 2022-0 Yes 125ug Take 125 U nivers dwight, 3-20 mcg by ity of Vitamin D3, 14:47: [place] 125 [place]cg 49 Medical (5,000 Branch unit) tablet multivitami 2022-0 Yes 1{tbl} Take 1 Un b[facility] n tablet 3-20 tablet by ity of 14:47: mouth in [place] [address] the Medical morning. Branch Cholecalcif 2022-0 Yes 125ug Take 125 U nivers dwight, 3-20 mcg by ity of Vitamin D3, 14:47: [place] 125 mcg 49 Medical (5,000 Branch unit) tablet multivitami 2022-0 Yes 1{tbl} Take 1 Un b[facility] n tablet 3-20 tablet by ity of 14:47: mouth in [place] [address] the Medical morning. Branch Cholecalcif 2022-0 Yes 125ug Take 125 U nivers dwight, 3-20 mcg by ity of Vitamin D3, 14:47: [place] 125 [place]cg 49 Medical (5,000 Branch unit) tablet multivitami 2022-0 Yes 1{tbl} Take 1 Un b[facility] n tablet 3-20 tablet by ity of 14:47: mouth in [place] [address] the Medical morning. Branch Cholecalcif 2022-0 Yes 125ug Take 125 U nivers dwight, 3-20 mcg by ity of Vitamin D3, 14:47: [place] 125 [place]cg 49 Medical (5,000 Branch unit) tablet multivitami 2022-0 Yes 1{tbl} Take 1 Un [facility] n tablet 3-20 tablet by ity of 14:47: mouth in [place] [address] the Medical morning. Branch Cholecalcif 2022-0 Yes 125ug Take 125 U nivers dwight, 3-20 mcg by ity of Vitamin D3, 14:47: [place] 125 [place]cg 49 Medical (5,000 Branch unit) tablet multivitami 2022-0 Yes 1{tbl} Take 1 Un [facility] n tablet 3-20 tablet by ity of 14:47: mouth in [place] [address] the Medical morning. Branch Cholecalcif 2022-0 Yes 125ug Take 125 U nivers dwight, 3-20 mcg by ity of Vitamin D3, 14:47: [place] 125 [place]cg 49 Medical (5,000 Branch unit) tablet multivitami 2022-0 Yes 1{tbl} Take 1 Un b[facility] n tablet 3-20 tablet by ity of 14:47: mouth in [place] [address] the Medical morning. Branch Cholecalcif 2022-0 Yes 125ug Take 125 U nivers dwight, 3-20 mcg by ity of Vitamin D3, 14:47: [place] 125 [place]cg 49 Medical (5,000 Branch unit) tablet multivitami 2022-0 Yes 1{tbl} Take 1 Un b[facility] n tablet 3-20 tablet by ity of 14:47: mouth in [place] [address] the Medical morning. Branch Cholecalcif 2022-0 Yes 125ug Take 125 U nivers dwight, 3-20 mcg by ity of Vitamin D3, 14:47: [place] 125 [place]cg 49 Medical (5,000 Branch unit) tablet multivitami 2022-0 Yes 1{tbl} Take 1 Un [facility] n tablet 3-20 tablet by ity of 14:47: mouth in [place] [id number] the Medical morning. Branch Cholecalcif 2022-0 Yes 125ug Take 125 U nivers [place]ight, 3-20 mcg by ity of Vitamin D3, 14:47: [place] 125 mcg 49 Medical (5,000 Branch unit) tablet multivitami 2022-0 Yes 1{tbl} Take 1 Un bhumi n tablet 3-20 tablet by ity of 14:47: mouth in [place] [id number] the Medical morning. Branch Cholecalcif 2022-0 Yes 125ug Take 125 U nivers dwight, 3-20 mcg by [facility] Vitamin D3, 14:47: [place] 125 [place] 49 [facility] (5,000 Branch unit) tablet multivitami 2023-0 Yes 1{tbl} Take 1 Un bhumi n tablet 3-20 tablet by ity of 14:47: mouth in [place] [address] the Medical morning. Branch Cholecalcif 2022-0 Yes 125ug Take 125 U nivers [place]ight, 3-20 mcg by [facility] of Vitamin D3, 14:47: [place] 125 [place]cg 49 [facility] (5,000 Branch unit) tablet multivitami 2022-0 Yes 1{tbl} Take 1 Un bhumi n tablet 3-20 tablet by ity of 14:47: mouth in [place] [address] the Medical morning. Branch Cholecalcif 2022-0 Yes 125ug Take 125 U nivers [place], 3-20 mcg by [facility] of Vitamin D3, 14:47: [place] 125 [place]cg 49 Medical (5,000 Branch unit) tablet multivitami 2022-0 Yes 1{tbl} Take 1 Un b[facility]i n tablet 3-20 tablet by ity of 14:47: mouth in [place] [address] the Medical morning. Branch Cholecalcif 2022-0 Yes 125ug Take 125 U nivers [place]ight, 3-20 mcg by [facility] of Vitamin D3, 14:47: [place] 125 mcg 49 Medical (5,000 Branch unit) tablet multivitami 2022-0 Yes 1{tbl} Take 1 Un bhumi n tablet 3-20 tablet by ity of 14:47: mouth in [place] [address] the Medical morning. Branch Cholecalcif 2022-0 Yes 125ug Take 125 U nivers [place]ight, 3-20 mcg by [facility] of Vitamin D3, 14:47: [place] 125 mcg 49 Medical (5,000 Branch unit) tablet multivitami 2022-0 Yes 1{tbl} Take 1 Un bhumi n tablet 3-20 tablet by ity of 14:47: mouth in [place] [address] the Medical morning. Branch Cholecalcif 2022-0 Yes 125ug Take 125 U nivers [place]ight, 3-20 mcg by [facility] of Vitamin D3, 14:47: [place] 125 mcg 49 Medical (5,000 Branch unit) tablet multivitami 2022-0 Yes 1{tbl} Take 1 Un bhumi n tablet 3-20 tablet by ity of 14:47: mouth in [place] [address] the Medical morning. Branch Cholecalcif 2022-0 Yes 125ug Take 125 U nivers [place]ight, 3-20 mcg by [facility] of Vitamin D3, 14:47: [place] 125 mcg 49 Medical (5,000 Branch unit) tablet multivitami 2022-0 Yes 1{tbl} Take 1 Un bhumi n tablet 3-20 tablet by ity of 14:47: mouth in [place] [address] the Medical morning. Branch Cholecalcif 2022-0 Yes 125ug Take 125 U nivers [place]ight, 3-20 mcg by [facility] of Vitamin D3, 14:47: [place] 125 mcg 49 Medical (5,000 Branch unit) tablet multivitami 2022-0 Yes 1{tbl} Take 1 Un bhumi n tablet 3-20 tablet by ity of 14:47: mouth in [place] [address] the Medical morning. Branch Cholecalcif 2022-0 Yes 125ug Take 125 U n[facility] [place], 3-20 mcg by [facility] of Vitamin D3, 14:47: [place] 125 [place]cg 49 Medical (5,000 Branch unit) tablet multivitami 2022-0 Yes 1{tbl} Take 1 Un b[facility]i n tablet 3-20 tablet by ity of 14:47: mouth in [place] [address] the Medical morning. Branch Cholecalcif 2022-0 Yes 125ug Take 125 U nivers [place]ight, 3-20 mcg by [facility] of Vitamin D3, 14:47: [place] 125 mcg 49 Medical (5,000 Branch unit) tablet multivitami 2022-0 Yes 1{tbl} Take 1 Un b[facility] n tablet 3-20 tablet by ity of 14:47: mouth in [place] [address] the Medical morning. Branch Cholecalcif 2022-0 Yes 125ug Take 125 U n[facility] [place]ight, 3-20 mcg by [facility] of Vitamin D3, 14:47: [place] 125 [place]cg 49 Medical (5,000 Branch unit) tablet multivitami 2022-0 Yes 1{tbl} Take 1 Un b[facility]i n tablet 3-20 tablet by ity of 14:47: mouth in [place] [address] the Medical morning. Branch Cholecalcif 2022-0 Yes 125ug Take 125 U nivers [place]ight, 3-20 mcg by [facility] of Vitamin D3, 14:47: [place] 125 [place]cg 49 [facility] (5,000 Branch unit) tablet multivitami 2022-0 Yes 1{tbl} Take 1 Un b[facility]i n tablet 3-20 tablet by ity of 14:47: mouth in [place] [address] the Medical morning. Branch Cholecalcif 2022-0 Yes 125ug Take 125 U nivers [place]ight, 3-20 mcg by [facility] of Vitamin D3, 14:47: [place] 125 mcg 49 Medical (5,000 Branch unit) tablet multivitami 2022-0 Yes 1{tbl} Take 1 Un bhumi n tablet 3-20 tablet by ity of 14:47: mouth in [place] [address] the Medical morning. Branch Cholecalcif 2022-0 Yes 125ug Take 125 U nivers [place]ight, 3-20 mcg by [facility] of Vitamin D3, 14:47: [place] 125 mcg 49 Medical (5,000 Branch unit) tablet multivitami 2022-0 Yes 1{tbl} Take 1 Un bhumi n tablet 3-20 tablet by ity of 14:47: mouth in [place] [address] the Medical morning. Branch Cholecalcif 2022-0 Yes 125ug Take 125 U n[facility] [place]ight, 3-20 mcg by [facility] of Vitamin D3, 14:47: [place]. [place] 125 mcg 49 Medical (5,000 Branch unit) tablet multivitami 2022-0 Yes 1{tbl} Take 1 Un b[facility]i n tablet 3-20 tablet by ity of 14:47: mouth in [place] [address] the Medical morning. Branch Cholecalcif 2022-0 Yes 125ug Take 125 U nivers [place]ight, 3-20 mcg by [facility] of Vitamin D3, 14:47: [place] 125 mcg 49 Medical (5,000 Branch unit) tablet multivitami 2022-0 Yes 1{tbl} Take 1 Un b[facility] n tablet 3-20 tablet by ity of 14:47: mouth in [place] [address] the Medical morning. Branch Cholecalcif 2022-0 Yes 125ug Take 125 U nivers [place]ight, 3-20 mcg by [facility] of Vitamin D3, 14:47: [place] 125 mcg 49 Medical (5,000 Branch unit) tablet multivitami 2022-0 Yes 1{tbl} Take 1 Un b[facility] n tablet 3-20 tablet by ity of 14:47: mouth in [place] [address] the Medical morning. Branch Cholecalcif 2022-0 Yes 125ug Take 125 U nivers [place]ight, 3-20 mcg by [facility] of Vitamin D3, 14:47: [place] 125 mcg 49 Medical (5,000 Branch unit) tablet multivitami 2022-0 Yes 1{tbl} Take 1 Un b[facility] n tablet 3-20 tablet by ity of 14:47: mouth in [place] [address] the Medical morning. Branch Cholecalcif 0 Yes 125ug Take 125 U nivers [place]ight, 3-20 mcg by [facility] of Vitamin D3, 14:47: [place] 125 mcg 49 Medical (5,000 Branch unit) tablet multivitami 2022-0 Yes 1{tbl} Take 1 Un b[facility] n tablet 3-20 tablet by ity of 14:47: mouth in [place] [address] the Medical morning. Branch Cholecalcif 0 Yes 125ug Take 125 U nivers [place]ight, 3-20 mcg by [facility] of Vitamin D3, 14:47: mouth[place] 125 mcg 49 Medical (5,000 Branch unit) tablet multivitami 2022-0 Yes 1{tbl} Take 1 Un b[facility] n tablet 3-20 tablet by ity of 14:47: mouth in [place] [address] the Medical morning. Branch Cholecalcif 0 Yes 125ug Take 125 U nivers [place]ight, 3-20 mcg by [facility] of Vitamin D3, 14:47: [place] 125 mcg 49 Medical (5,000 Branch unit) tablet multivitami 2022-0 Yes 1{tbl} Take 1 Un [facility] n tablet 3-20 tablet by ity of 14:47: mouth in [place] [address] the Medical morning. Branch Cholecalcif 0 Yes 125ug Take 125 U nivers dwight, 3-20 mcg by [facility] of Vitamin D3, 14:47: [place] 125 mcg 49 Medical (5,000 Branch unit) tablet multivitami 2022-0 Yes 1{tbl} Take 1 Un b[facility]i n tablet 3-20 tablet by ity of 14:47: mouth in [place] [address] the Medical morning. Branch Cholecalcif 2022-0 Yes 125ug Take 125 U nivers [place], 3-20 mcg by [facility] of Vitamin D3, 14:47: mouth[place] 125 mcg 49 Medical (5,000 Branch unit) tablet multivitami 2022-0 Yes 1{tbl} Take 1 Un b[facility] n tablet 3-20 tablet by ity of 14:47: mouth in [place] [address] the Medical morning. Branch Cholecalcif 2022-0 Yes 125ug Take 125 U n[facility] [place], 3-20 mcg by [facility] of Vitamin D3, 14:47: mouth[place] 125 [place] 49 Medical (5,000 Branch unit) tablet multivitami 2022-0 Yes 1{tbl} Take 1 Un [facility] n tablet 3-20 tablet by ity of 14:47: mouth in [place] [address] the Medical morning. Branch Cholecalcif 2022-0 Yes 125ug Take 125 U nivers [place], 3-20 mcg by [facility] of Vitamin D3, 14:47: mouth[place] 125 mcg 49 Medical (5,000 Branch unit) tablet multivitami 2022-0 Yes 1{tbl} Take 1 Un b[facility] n tablet 3-20 tablet by ity of 14:47: mouth in [place] [address] the Medical morning. Branch Cholecalcif 2022-0 Yes 125ug Take 125 U nivers [place]ight, 3-20 mcg by [facility] of Vitamin D3, 14:47: mouth[place] 125 mcg 49 Medical (5,000 Branch unit) tablet multivitami 2022-0 Yes 1{tbl} Take 1 Un [facility] n tablet 3-20 tablet by ity of 14:47: mouth in [place] [address] the Medical morning. Branch Cholecalcif 2022-0 Yes 125ug Take 125 U n[facility] [place], 3-20 mcg by [facility] of Vitamin D3, 14:47: mouth[place] 125 mcg 49 Medical (5,000 Branch unit) tablet multivitami 2022-0 Yes 1{tbl} Take 1 Un [facility] n tablet 3-20 tablet by ity of 14:47: mouth in [place] [address] the Medical morning. Branch Cholecalcif 2022-0 Yes 125ug Take 125 U nivers [place]ight, 3-20 mcg by [facility] of Vitamin D3, 14:47: mouth. [place] 125 mcg 49 Medical (5,000 Branch unit) tablet multivitami 2022-0 Yes 1{tbl} Take 1 Un [facility] n tablet 3-20 tablet by ity of 14:47: mouth in [place] [address] the Medical morning. Branch Cholecalcif 2022-0 Yes 125ug Take 125 U nivers [place]ight, 3-20 mcg by [facility] of Vitamin D3, 14:47: mouth. [place] 125 mcg 49 Medical (5,000 Branch unit) tablet multivitami 2022-0 Yes 1{tbl} Take 1 Un b[facility] n tablet 3-20 tablet by ity of 14:47: mouth in [place] [address] the Medical morning. Branch Cholecalcif 0 Yes 125ug Take 125 U nivers [place]ight, 3-20 mcg by it[facility] of Vitamin D3, 14:47: mouth. [place] 125 mcg 49 Medical (5,000 Branch unit) tablet multivitami 2022-0 Yes 1{tbl} Take 1 Un b[facility] n tablet 3-20 tablet by ity of 14:47: mouth in [place] [address] the Medical morning. Branch Cholecalcif 0 Yes 125ug Take 125 U nivers dwight, 3-20 mcg by it[facility] of Vitamin D3, 14:47: mouth. [place] 125 mcg 49 Medical (5,000 Branch unit) tablet multivitami 2022-0 Yes 1{tbl} Take 1 Un b[facility] n tablet 3-20 tablet by ity of 14:47: mouth in [place] [address] the Medical morning. Branch Cholecalcif 0 Yes 125ug Take 125 U nivers dwight, 3-20 mcg by it[facility] of Vitamin D3, 14:47: mouth. [place] 125 mcg 49 Medical (5,000 Branch unit) tablet multivitami 2022-0 Yes 1{tbl} Take 1 Un [facility] n tablet 3-20 tablet by ity of 14:47: mouth in [place] [address] the Medical morning. Branch Cholecalcif 0 Yes 125ug Take 125 U nivers dwight, 3-20 mcg by it[facility] of Vitamin D3, 14:47: mouth. [place] 125 mcg 49 Medical (5,000 Branch unit) tablet multivitami 2022-0 Yes 1{tbl} Take 1 Un b[facility] n tablet 3-20 tablet by ity of 14:47: mouth in [place] [address] the Medical morning. Branch Cholecalcif 2022-0 Yes 125ug Take 125 U nivers [place]ight, 3-20 mcg by it[facility] of Vitamin D3, 14:47: mouth. [place] 125 mcg 49 Medical (5,000 Branch unit) tablet multivitami 2022-0 Yes 1{tbl} Take 1 Un b[facility] n tablet 3-20 tablet by ity of 14:47: mouth in [place] [address] the Medical morning. Branch Cholecalcif 2022-0 Yes 125ug Take 125 U nivers dwight, 3-20 mcg by it[facility] of Vitamin D3, 14:47: mouth. [place] 125 mcg 49 Medical (5,000 Branch unit) tablet multivitami 2022-0 Yes 1{tbl} Take 1 Un b[facility]i n tablet 3-20 tablet by ity of 14:47: mouth in [place] [address] the Medical morning. Branch Cholecalcif 2022-0 Yes 125ug Take 125 U nivers [place]ight, 3-20 mcg by it[facility] of Vitamin D3, 14:47: mouth. [place] 125 mcg 49 Medical (5,000 Branch unit) tablet multivitami 2022-0 Yes 1{tbl} Take 1 Un b[facility] n tablet 3-20 tablet by ity of 14:47: mouth in [place] [address] the Medical morning. Branch Cholecalcif 2022-0 Yes 125ug Take 125 U nivers [place]ight, 3-20 mcg by it[facility] of Vitamin D3, 14:47: mouth. [place] 125 mcg 49 Medical (5,000 Branch unit) tablet multivitami 2022-0 Yes 1{tbl} Take 1 Un b[facility] n tablet 3-20 tablet by ity of 14:47: mouth in [place] [address] the Medical morning. Branch Cholecalcif 2022-0 Yes 125ug Take 125 U nivers dwight, 3-20 mcg by it[facility] of Vitamin D3, 14:47: mouth. [place] 125 mcg 49 Medical (5,000 Branch unit) tablet multivitami 2022-0 Yes 1{tbl} Take 1 Un bhumi n tablet 3-20 tablet by ity of 14:47: mouth in [place] [address] the Medical morning. Branch Cholecalcif 2022-0 Yes 125ug Take 125 U nivers [place]ight, 3-20 mcg by ity of Vitamin D3, 14:47: mouth. [place] 125 mcg 49 Medical (5,000 Branch unit) tablet multivitami 2022-0 Yes 1{tbl} Take 1 Un b[facility] n tablet 3-20 tablet by ity of 14:47: mouth in [place] [address] the Medical morning. Branch Cholecalcif 2022-0 Yes 125ug Take 125 U nivers [place]ight, 3-20 mcg by it[facility] of Vitamin D3, 14:47: mouth. [place] 125 mcg 49 Medical (5,000 Branch unit) tablet multivitami 2022-0 Yes 1{tbl} Take 1 Un [facility] n tablet 3-20 tablet by ity of 14:47: mouth in [place] [address] the Medical morning. Branch Cholecalcif 0 Yes 125ug Take 125 U nivers [place]ight, 3-20 mcg by ity of Vitamin D3, 14:47: mouth. [place] 125 mcg 49 Medical (5,000 Branch unit) tablet multivitami 2022-0 Yes 1{tbl} Take 1 Un b[facility] n tablet 3-20 tablet by ity of 14:47: mouth in [place] [address] the Medical morning. Branch Cholecalcif 0 Yes 125ug Take 125 U nivers dwight, 3-20 mcg by ity of Vitamin D3, 14:47: mouth. [place] 125 mcg 49 Medical (5,000 Branch unit) tablet multivitami 2022-0 Yes 1{tbl} Take 1 Un b[facility] n tablet 3-20 tablet by ity of 14:47: mouth in [place] [address] the Medical morning. Branch Cholecalcif 0 Yes 125ug Take 125 U nivers [place]ight, 3-20 mcg by it[facility] of Vitamin D3, 14:47: mouth. [place] 125 mcg 49 Medical (5,000 Branch unit) tablet multivitami 0 Yes 1{tbl} Take 1 Un hbumi n tablet 3-20 tablet by ity of 14:47: mouth in [place] [address] the Medical morning. Branch Cholecalcif 0 Yes 125ug Take 125 U nivers [place]ight, 3-20 mcg by it[facility] of Vitamin D3, 14:47: mouth. [place] 125 mcg 49 Medical (5,000 Branch unit) tablet multivitami 2022-0 Yes 1{tbl} Take 1 Un b[facility] n tablet 3-20 tablet by ity of 14:47: mouth in [place] [address] the Medical morning. Branch Cholecalcif 2022-0 Yes 125ug Take 125 U nivers [place]ight, 3-20 mcg by it[facility] of Vitamin D3, 14:47: mouth. [place] 125 mcg 49 Medical (5,000 Branch unit) tablet multivitami 2022-0 Yes 1{tbl} Take 1 Un b[facility] n tablet 3-20 tablet by ity of 14:47: mouth in [place] [address] the Medical morning. Branch Cholecalcif 2022-0 Yes 125ug Take 125 U nivers [place]ight, 3-20 mcg by ity of Vitamin D3, 14:47: mouth. [place] 125 mcg 49 Medical (5,000 Branch unit) tablet multivitami 2022-0 Yes 1{tbl} Take 1 Un b[facility] n tablet 3-20 tablet by ity of 14:47: mouth in [place] [address] the Medical morning. Branch Cholecalcif 2022-0 Yes 125ug Take 125 U nivers [place]ight, 3-20 mcg by it[facility] of Vitamin D3, 14:47: mouth. [place] 125 mcg 49 Medical (5,000 Branch unit) tablet multivitami 2022-0 Yes 1{tbl} Take 1 Un b[facility] n tablet 3-20 tablet by ity of 14:47: mouth in [place] [address] the Medical morning. Branch Cholecalcif 2022-0 Yes 125ug Take 125 U nivers [place]ight, 3-20 mcg by ity of Vitamin D3, 14:47: mouth. [place] 125 mcg 49 Medical (5,000 Branch unit) tablet multivitami 2022-0 Yes 1{tbl} Take 1 Un b[facility] n tablet 3-20 tablet by ity of 14:47: mouth in [place] [address] the Medical morning. Branch Cholecalcif 2022-0 Yes 125ug Take 125 U nivers [place]ight, 3-20 mcg by ity of Vitamin D3, 14:47: mouth. [place] 125 mcg 49 Medical (5,000 Branch unit) tablet multivitami 2022-0 Yes 1{tbl} Take 1 Un bhumi n tablet 3-20 tablet by ity of 14:47: mouth in [place] [address] the Medical morning. Branch Cholecalcif 2022-0 Yes 125ug Take 125 U nivers [place]ight, 3-20 mcg by it[facility] of Vitamin D3, 14:47: mouth. [place] 125 mcg 49 Medical (5,000 Branch unit) tablet multivitami 2022-0 Yes 1{tbl} Take 1 Un [place] n tablet 3-20 tablet by ity of 14:47: mouth in [place] [address] the Medical morning. Branch Cholecalcif 2023-0 Yes 125ug Take 125 U nivers [place]ight, 3-20 mcg by it[facility] of Vitamin D3, 14:47: [place]. [place] 125 mcg 49 Medical (5,000 Branch unit) tablet multivitami 2022-0 Yes 1{tbl} Take 1 Un [place] n tablet 3-20 tablet by ity of 14:47: mouth in [place] [address] the Medical morning. Branch Cholecalcif 2022-0 Yes 125ug Take 125 U nivers dwight, 3-20 mcg by ity of Vitamin D3, 14:47: mouth. [place] 125 mcg 49 Medical (5,000 Branch unit) tablet multivitami 2022-0 Yes 1{tbl} Take 1 Un b[facility] n tablet 3-20 tablet by ity of 14:47: mouth in [place] [address] the Medical morning. Branch TAMSULOSIN 2022-0 Yes TAKE 1 Un bhumi 0.4 mg 24 3-20 CAPSULE BY ity of hr capsule 00:00: MOUTH [place] [address] EVERY DAY Medical IN THE Branch MORNING tamsulosin 2022-0 Yes .4mg Take 1 Un bhumi 0.4 mg 24 3-20 capsule by ity of hr capsule 00:00: mouth [place] [address] every Medical morning. Branch oxybutynin 2022-0 Yes [id number] 5mg Take 1 [facility] XL 5 mg 24 3-20 tablet by ity of hr tablet 00:00: mouth in [facility] 00 the Medical morning. Branch metoprolol 2022-0 Yes [id number] 25mg Take 1 U nivers succinate 3-20 tablet by ity o f XL 25 mg 24 00:00: mouth in [place] hr tablet 00 the Medical morning. Branch hydrALAZINE 2022-0 Yes [id number] 50mg Take 1 [facility] 50 mg 3-20 tablet by ity of tablet 00:00: mouth in [place] 00 the Medical morning Branch and 1 tablet in the evening. furosemide 2022-0 Yes [id number] 20mg Take 1 [facility] 20 mg 3-20 tablet by ity of tablet 00:00: mouth in [place] 00 the Medical morning. Branch clopidogreL 2022-0 Yes [id number] 75mg Take 1 [facility] 75 mg 3-20 tablet by ity of tablet 00:00: mouth in [place] [address] the Medical morning. Branch tamsulosin 2022-0 Yes [id number] .4mg Take 1 Un bhumi 0.4 mg 24 3-20 capsule by ity of hr capsule 00:00: mouth [place] 00 every Medical morning. Branch oxybutynin 3-0 Yes [id number] 5mg Take 1 [facility] XL 5 mg 24 3-20 tablet by ity of hr tablet 00:00: mouth in [facility] 00 the Medical morning. Branch metoprolol 2022-0 Yes [id number] 25mg Take 1 U nivers succinate 3-20 tablet by ity o f XL 25 mg 24 00:00: mouth in [place] hr tablet 00 the Medical morning. Branch hydrALAZINE 2022-0 Yes [id number] 50mg Take 1 [facility] 50 mg 3-20 tablet by ity of tablet 00:00: mouth in [place] 00 the Medical morning Branch and 1 tablet in the evening. furosemide 2022-0 Yes [id number] 20mg Take 1 [facility] 20 mg 3-20 tablet by ity of tablet 00:00: mouth in [place] the Medical morning. Branch clopidogreL 2022-0 Yes [id number] 75mg Take 1 [facility] 75 mg 3-20 tablet by ity of tablet 00:00: mouth in [place] the Medical morning. Branch tamsulosin 2022-0 Yes [id number] .4mg Take 1 Un bhumi 0.4 mg 24 3-20 capsule by ity of hr capsule 00:00: mouth [place] 00 every Medical morning. Branch oxybutynin 2022-0 Yes [id number] 5mg Take 1 [facility] XL 5 mg 24 3-20 tablet by ity of hr tablet 00:00: mouth in [facility] 00 the Medical morning. Branch metoprolol 2022-0 Yes [id number] 25mg Take 1 U nivers succinate 3-20 tablet by ity o f XL 25 mg 24 00:00: mouth in [place] hr tablet 00 the Medical morning. Branch hydrALAZINE 3-0 Yes [id number] 50mg Take 1 [facility] 50 mg 3-20 tablet by ity of tablet 00:00: mouth in [place] 00 the Medical morning Branch and 1 tablet in the evening. furosemide 3-0 Yes [id number] 20mg Take 1 [facility] 20 mg 3-20 tablet by ity of tablet 00:00: mouth in [place] 00 the Medical morning. Branch clopidogreL 2022-0 Yes [id number] 75mg Take 1 [facility] 75 mg 3-20 tablet by ity of tablet 00:00: mouth in [place] 00 the Medical morning. Branch tamsulosin 2023-0 Yes [id number] .4mg Take 1 Un bhumi 0.4 mg 24 3-20 capsule by ity of hr capsule 00:00: mouth [place] [address] every Medical morning. Branch oxybutynin 3-0 Yes [id number] 5mg Take 1 [facility] XL 5 mg 24 3-20 tablet by ity of hr tablet 00:00: mouth in [facility] 00 the Medical morning. Branch metoprolol 3-0 Yes [id number] 25mg Take 1 U nivers succinate 3-20 tablet by ity o f XL 25 mg 24 00:00: mouth in [place] hr tablet 00 the Medical morning. Branch hydrALAZINE 3-0 Yes [id number] 50mg Take 1 [facility] 50 mg 3-20 tablet by ity of tablet 00:00: mouth in [place] 00 the Medical morning Branch and 1 tablet in the evening. furosemide 3-0 Yes [id number] 20mg Take 1 [facility] 20 mg 3-20 tablet by ity of tablet 00:00: mouth in [place] the Medical morning. Branch clopidogreL 3-0 Yes [id number] 75mg Take 1 [facility] 75 mg 3-20 tablet by ity of tablet 00:00: mouth in [place] the Medical morning. Branch tamsulosin 3-0 Yes [id number] .4mg Take 1 Un bhumi 0.4 mg 24 3-20 capsule by ity of hr capsule 00:00: mouth [place] [address] every Medical morning. Branch oxybutynin 3-0 Yes [id number] 5mg Take 1 [facility] XL 5 mg 24 3-20 tablet by ity of hr tablet 00:00: mouth in [facility] the Medical morning. Branch metoprolol 3-0 Yes [id number] 25mg Take 1 U nivers succinate 3-20 tablet by ity o f XL 25 mg 24 00:00: mouth in [place] hr tablet 00 the Medical morning. Branch hydrALAZINE 3-0 Yes [id number] 50mg Take 1 [facility] 50 mg 3-20 tablet by ity of tablet 00:00: mouth in [place] 00 the Medical morning Branch and 1 tablet in the evening. furosemide 3-0 Yes [id number] 20mg Take 1 [facility] 20 mg 3-20 tablet by ity of tablet 00:00: mouth in [place] 00 the Medical morning. Branch clopidogreL 3-0 Yes [id number] 75mg Take 1 [facility] 75 mg 3-20 tablet by ity of tablet 00:00: mouth in [place] 00 the Medical morning. Branch tamsulosin 3-0 Yes [id number] .4mg Take 1 Un bhumi 0.4 mg 24 3-20 capsule by ity of hr capsule 00:00: mouth [place] 00 every Medical morning. Branch oxybutynin 3-0 Yes [id number] 5mg Take 1 [facility] XL 5 mg 24 3-20 tablet by ity of hr tablet 00:00: mouth in [facility] 00 the Medical morning. Branch metoprolol 3-0 Yes [id number] 25mg Take 1 U nivers succinate 3-20 tablet by ity o f XL 25 mg 24 00:00: mouth in [place] hr tablet 00 the Medical morning. Branch hydrALAZINE 3-0 Yes [id number] 50mg Take 1 [facility] 50 mg 3-20 tablet by ity of tablet 00:00: mouth in [place] 00 the Medical morning Branch and 1 tablet in the evening. furosemide 2023-0 Yes [id number] 20mg Take 1 [facility] 20 mg 3-20 tablet by ity of tablet 00:00: mouth in [place] the Medical morning. Branch clopidogreL 3-0 Yes [id number] 75mg Take 1 [facility] 75 mg 3-20 tablet by ity of tablet 00:00: mouth in [place] the Medical morning. Branch tamsulosin 3-0 Yes [id number] .4mg Take 1 Un bhumi 0.4 mg 24 3-20 capsule by ity of hr capsule 00:00: mouth [place] 00 every Medical morning. Branch oxybutynin 3-0 Yes [id number] 5mg Take 1 [facility] XL 5 mg 24 3-20 tablet by ity of hr tablet 00:00: mouth in [facility] 00 the Medical morning. Branch metoprolol 3-0 Yes [id number] 25mg Take 1 U nivers succinate 3-20 tablet by ity o f XL 25 mg 24 00:00: mouth in [place] hr tablet 00 the Medical morning. Branch hydrALAZINE 3-0 Yes [id number] 50mg Take 1 [facility] 50 mg 3-20 tablet by ity of tablet 00:00: mouth in [place] 00 the Medical morning Branch and 1 tablet in the evening. furosemide 2023-0 Yes [id number] 20mg Take 1 [facility] 20 mg 3-20 tablet by ity of tablet 00:00: mouth in [place] the Medical morning. Branch clopidogreL 3-0 Yes [id number] 75mg Take 1 [facility] 75 mg 3-20 tablet by ity of tablet 00:00: mouth in [place] the Medical morning. Branch tamsulosin 3-0 Yes [id number] .4mg Take 1 Un bhumi 0.4 mg 24 3-20 capsule by ity of hr capsule 00:00: mouth [place] [address] every Medical morning. Branch oxybutynin 3-0 Yes [id number] 5mg Take 1 [facility] XL 5 mg 24 3-20 tablet by ity of hr tablet 00:00: mouth in [facility] the Medical morning. Branch metoprolol 3-0 Yes [id number] 25mg Take 1 U nivers succinate 3-20 tablet by ity o f XL 25 mg 24 00:00: mouth in [place] hr tablet 00 the Medical morning. Branch hydrALAZINE 3-0 Yes [id number] 50mg Take 1 [facility] 50 mg 3-20 tablet by ity of tablet 00:00: mouth in [place] the Medical morning Branch and 1 tablet in the evening. furosemide 3-0 Yes [id number] 20mg Take 1 [facility] 20 mg 3-20 tablet by ity of tablet 00:00: mouth in [place] the Medical morning. Branch clopidogreL 3-0 Yes [id number] 75mg Take 1 [facility] 75 mg 3-20 tablet by ity of tablet 00:00: mouth in [place] the Medical morning. Branch tamsulosin 3-0 Yes [id number] .4mg Take 1 Un bhumi 0.4 mg 24 3-20 capsule by ity of hr capsule 00:00: mouth [place] [address] every Medical morning. Branch oxybutynin 3-0 Yes [id number] 5mg Take 1 [facility] XL 5 mg 24 3-20 tablet by ity of hr tablet 00:00: mouth in [facility] the Medical morning. Branch metoprolol 3-0 Yes [id number] 25mg Take 1 U nivers succinate 3-20 tablet by ity o f XL 25 mg 24 00:00: mouth in [place] hr tablet 00 the Medical morning. Branch hydrALAZINE 2023-0 Yes [id number] 50mg Take 1 [facility] 50 mg 3-20 tablet by ity of tablet 00:00: mouth in [place] the Medical morning Branch and 1 tablet in the evening. furosemide 3-0 Yes [id number] 20mg Take 1 [facility] 20 mg 3-20 tablet by ity of tablet 00:00: mouth in [place] 00 the Medical morning. Branch clopidogreL 3-0 Yes [id number] 75mg Take 1 [facility] 75 mg 3-20 tablet by ity of tablet 00:00: mouth in [place] the Medical morning. Branch tamsulosin 3-0 Yes [id number] .4mg Take 1 Un bhumi 0.4 mg 24 3-20 capsule by ity of hr capsule 00:00: mouth [place] [address] every Medical morning. Branch oxybutynin 3-0 Yes [id number] 5mg Take 1 [facility] XL 5 mg 24 3-20 tablet by it[facility] of hr tablet 00:00: mouth in [facility] the Medical morning. Branch metoprolol 3-0 Yes [id number] 25mg Take 1 [facility] nivers succinate 3-20 tablet by ity o f XL 25 mg 24 00:00: mouth in [place] hr tablet 00 the Medical morning. Branch hydrALAZINE 2022-0 Yes [id number] 50mg Take 1 [facility] 50 mg 3-20 tablet by [facility] of tablet 00:00: mouth in [place] the Medical morning Branch and 1 tablet in the evening. furosemide 3-0 Yes [id number] 20mg Take 1 [facility] 20 mg 3-20 tablet by [facility] of tablet 00:00: mouth in [place] the Medical morning. Branch clopidogreL 3-0 Yes [id number] 75mg Take 1 [facility] 75 mg 3-20 tablet by [facility] of tablet 00:00: mouth in [place] the Medical morning. Branch tamsulosin 3-0 Yes [id number] .4mg Take 1 [facility] 0.4 mg 24 3-20 capsule by ity of hr capsule 00:00: mouth [place] [address] every Medical morning. Branch oxybutynin 3-0 Yes [id number] 5mg Take 1 [facility] XL 5 mg 24 3-20 tablet by ity of hr tablet 00:00: mouth in [facility] 00 the Medical morning. Branch metoprolol 3-0 Yes [id number] 25mg Take 1 U nivers succinate 3-20 tablet by ity o f XL 25 mg 24 00:00: mouth in [place] hr tablet 00 the Medical morning. Branch hydrALAZINE 3-0 Yes [id number] 50mg Take 1 [facility] 50 mg 3-20 tablet by it[facility] of tablet 00:00: mouth in [place] the Medical morning Branch and 1 tablet in the evening. furosemide 3-0 Yes [id number] 20mg Take 1 [facility] 20 mg 3-20 tablet by [facility] of tablet 00:00: mouth in [place] the Medical morning. Branch clopidogreL 3-0 Yes [id number] 75mg Take 1 [facility] 75 mg 3-20 tablet by [facility] of tablet 00:00: mouth in [place] the Medical morning. Branch tamsulosin 3-0 Yes [id number] .4mg Take 1 [facility] 0.4 mg 24 3-20 capsule by [facility]y of hr capsule 00:00: mouth [place] [address] every Medical morning. Branch oxybutynin 3-0 Yes [id number] 5mg Take 1 [facility] XL 5 mg 24 3-20 tablet by it[facility] of hr tablet 00:00: mouth in [facility] the Medical morning. Branch metoprolol 2022-0 Yes [id number] 25mg Take 1 [facility] nivers succinate 3-20 tablet by ity o f XL 25 mg 24 00:00: mouth in [place] hr tablet 00 the Medical morning. Branch hydrALAZINE 2022-0 Yes [id number] 50mg Take 1 [facility] 50 mg 3-20 tablet by [facility] of tablet 00:00: mouth in [place] the Medical morning Branch and 1 tablet in the evening. furosemide 3-0 Yes [id number] 20mg Take 1 [facility] 20 mg 3-20 tablet by [facility] of tablet 00:00: mouth in [place] the Medical morning. Branch clopidogreL 3-0 Yes [id number] 75mg Take 1 [facility] 75 mg 3-20 tablet by [facility] of tablet 00:00: mouth in [place] the Medical morning. Branch tamsulosin 3-0 Yes [id number] .4mg Take 1 [facility] 0.4 mg 24 3-20 capsule by [facility] of hr capsule 00:00: mouth [place] [address] every Medical morning. Branch oxybutynin 3-0 Yes [id number] 5mg Take 1 [facility] XL 5 mg 24 3-20 tablet by ity of hr tablet 00:00: mouth in [facility] 00 the Medical morning. Branch metoprolol 3-0 Yes [id number] 25mg Take 1 [facility] nivers succinate 3-20 tablet by ity o f XL 25 mg 24 00:00: mouth in [place] hr tablet 00 the Medical morning. Branch hydrALAZINE 3-0 Yes [id number] 50mg Take 1 [facility] 50 mg 3-20 tablet by [facility] of tablet 00:00: mouth in [place] 00 the Medical morning Branch and 1 tablet in the evening. furosemide 3-0 Yes [id number] 20mg Take 1 [facility] 20 mg 3-20 tablet by [facility] of tablet 00:00: mouth in [place] the Medical morning. Branch clopidogreL 2022-0 Yes [id number] 75mg Take 1 [facility] 75 mg 3-20 tablet by [facility] of tablet 00:00: mouth in [place] the Medical morning. Branch tamsulosin 3-0 Yes [id number] .4mg Take 1 [facility] 0.4 mg 24 3-20 capsule by it[facility] of hr capsule 00:00: mouth [place] [address] every Medical morning. Branch oxybutynin 3-0 Yes [id number] 5mg Take 1 [facility] XL 5 mg 24 3-20 tablet by ity of hr tablet 00:00: mouth in [facility] the Medical morning. Branch metoprolol 2022-0 Yes [id number] 25mg Take 1 [facility] nivers succinate 3-20 tablet by ity o f XL 25 mg 24 00:00: mouth in [facility] hr tablet 00 the Medical morning. Branch hydrALAZINE 3-0 Yes [id number] 50mg Take 1 [facility] 50 mg 3-20 tablet by [facility] of tablet 00:00: mouth in [place] the Medical morning Branch and 1 tablet in the evening. furosemide 3-0 Yes [id number] 20mg Take 1 [facility] 20 mg 3-20 tablet by it[facility] of tablet 00:00: mouth in [place] 00 the Medical morning. Branch clopidogreL 3-0 Yes [id number] 75mg Take 1 [facility] 75 mg 3-20 tablet by [facility] of tablet 00:00: mouth in [place] 00 the Medical morning. Branch tamsulosin 3-0 Yes [id number] .4mg Take 1 [facility] 0.4 mg 24 3-20 capsule by ity of hr capsule 00:00: mouth [place] 00 every Medical morning. Branch oxybutynin 3-0 Yes [id number] 5mg Take 1 [facility] XL 5 mg 24 3-20 tablet by ity of hr tablet 00:00: mouth in [facility] 00 the Medical morning. Branch metoprolol 3-0 Yes [id number] 25mg Take 1 [facility] nivers succinate 3-20 tablet by ity o f XL 25 mg 24 00:00: mouth in [place] hr tablet 00 the Medical morning. Branch hydrALAZINE 3-0 Yes [id number] 50mg Take 1 [facility] 50 mg 3-20 tablet by it[facility] of tablet 00:00: mouth in [place] 00 the Medical morning Branch and 1 tablet in the evening. furosemide 3-0 Yes [id number] 20mg Take 1 [facility] 20 mg 3-20 tablet by it[facility] of tablet 00:00: mouth in [place] the Medical morning. Branch clopidogreL 2022-0 Yes [id number] 75mg Take 1 [facility] 75 mg 3-20 tablet by [facility] of tablet 00:00: mouth in [place] the Medical morning. Branch tamsulosin 2022-0 Yes [id number] .4mg Take 1 [facility] 0.4 mg 24 3-20 capsule by ity of hr capsule 00:00: mouth [place] 00 every Medical morning. Branch oxybutynin 2022-0 Yes [id number] 5mg Take 1 [facility] XL 5 mg 24 3-20 tablet by ity of hr tablet 00:00: mouth in [facility] the Medical morning. Branch metoprolol 3-0 Yes [id number] 25mg Take 1 [facility] nivers succinate 3-20 tablet by ity o f XL 25 mg 24 00:00: mouth in [place] hr tablet 00 the Medical morning. Branch hydrALAZINE 3-0 Yes [id number] 50mg Take 1 [facility] 50 mg 3-20 tablet by [facility] of tablet 00:00: mouth in [place] 00 the Medical morning Branch and 1 tablet in the evening. furosemide 3-0 Yes [id number] 20mg Take 1 [facility] 20 mg 3-20 tablet by it[facility] of tablet 00:00: mouth in [place] 00 the Medical morning. Branch clopidogreL 3-0 Yes [id number] 75mg Take 1 [facility] 75 mg 3-20 tablet by ity of tablet 00:00: mouth in [place] 00 the Medical morning. Branch tamsulosin 3-0 Yes [id number] .4mg Take 1 [facility] 0.4 mg 24 3-20 capsule by ity of hr capsule 00:00: mouth [place] 00 every Medical morning. Branch oxybutynin 3-0 Yes [id number] 5mg Take 1 [facility] XL 5 mg 24 3-20 tablet by ity of hr tablet 00:00: mouth [facility] 00 the Medical morning. Branch metoprolol 3-0 Yes [id number] 25mg Take 1 [facility] nivers succinate 3-20 tablet by ity o f XL 25 mg 24 00:00: mouth in [place] hr tablet 00 the Medical morning. Branch hydrALAZINE 2022-0 Yes [id number] 50mg Take 1 [facility] 50 mg 3-20 tablet by ity of tablet 00:00: mouth in [place] 00 the Medical morning Branch and 1 tablet in the evening. furosemide 2022-0 Yes [id number] 20mg Take 1 [facility] 20 mg 3-20 tablet by it[facility] of tablet 00:00: mouth in [place] the Medical morning. Branch clopidogreL 2022-0 Yes [id number] 75mg Take 1 [facility] 75 mg 3-20 tablet by ity of tablet 00:00: mouth in [place] the Medical morning. Branch tamsulosin 3-0 Yes [id number] .4mg Take 1 [facility] 0.4 mg 24 3-20 capsule by ity of hr capsule 00:00: mouth [place] 00 every Medical morning. Branch oxybutynin 2022-0 Yes [id number] 5mg Take 1 [facility] XL 5 mg 24 3-20 tablet by ity of hr tablet 00:00: mouth in [facility] the Medical morning. Branch metoprolol 2022-0 Yes [id number] 25mg Take 1 [facility] nivers succinate 3-20 tablet by ity o f XL 25 mg 24 00:00: mouth in [place] hr tablet 00 the Medical morning. Branch hydrALAZINE 3-0 Yes [id number] 50mg Take 1 [facility] 50 mg 3-20 tablet by it[facility] of tablet 00:00: mouth in [place] 00 the Medical morning Branch and 1 tablet in the evening. furosemide 3-0 Yes [id number] 20mg Take 1 [facility] 20 mg 3-20 tablet by ity of tablet 00:00: mouth in [place] 00 the Medical morning. Branch clopidogreL 2022-0 Yes [id number] 75mg Take 1 [facility] 75 mg 3-20 tablet by ity of tablet 00:00: mouth in [place] 00 the Medical morning. Branch tamsulosin 3-0 Yes [id number] .4mg Take 1 [facility] 0.4 mg 24 3-20 capsule by ity of hr capsule 00:00: mouth [place] [address] every Medical morning. Branch oxybutynin 3-0 Yes [id number] 5mg Take 1 [facility] XL 5 mg 24 3-20 tablet by ity of hr tablet 00:00: mouth in [facility] 00 the Medical morning. Branch metoprolol 3-0 Yes [id number] 25mg Take 1 [facility] nivers succinate 3-20 tablet by ity o f XL 25 mg 24 00:00: mouth in [place] hr tablet 00 the Medical morning. Branch hydrALAZINE 3-0 Yes [id number] 50mg Take 1 [facility] 50 mg 3-20 tablet by ity of tablet 00:00: mouth in [place] 00 the Medical morning Branch and 1 tablet in the evening. furosemide 3-0 Yes [id number] 20mg Take 1 [facility] 20 mg 3-20 tablet by ity of tablet 00:00: mouth in [place] the Medical morning. Branch clopidogreL 3-0 Yes [id number] 75mg Take 1 [facility] 75 mg 3-20 tablet by ity of tablet 00:00: mouth in [place] the Medical morning. Branch tamsulosin 3-0 Yes [id number] .4mg Take 1 [facility] 0.4 mg 24 3-20 capsule by ity of hr capsule 00:00: mouth [place] 00 every Medical morning. Branch oxybutynin 3-0 Yes [id number] 5mg Take 1 [facility] XL 5 mg 24 3-20 tablet by ity of hr tablet 00:00: mouth in [facility] the Medical morning. Branch metoprolol 3-0 Yes [id number] 25mg Take 1 U nivers succinate 3-20 tablet by ity o f XL 25 mg 24 00:00: mouth in [place] hr tablet 00 the Medical morning. Branch hydrALAZINE 3-0 Yes [id number] 50mg Take 1 [facility] 50 mg 3-20 tablet by ity of tablet 00:00: mouth in [place] 00 the Medical morning Branch and 1 tablet in the evening. furosemide 3-0 Yes [id number] 20mg Take 1 [facility] 20 mg 3-20 tablet by ity of tablet 00:00: mouth in [place] 00 the Medical morning. Branch clopidogreL 3-0 Yes [id number] 75mg Take 1 [facility] 75 mg 3-20 tablet by ity of tablet 00:00: mouth in [place] the Medical morning. Branch tamsulosin 3-0 Yes [id number] .4mg Take 1 [facility] 0.4 mg 24 3-20 capsule by ity of hr capsule 00:00: mouth [place] [address] every Medical morning. Branch oxybutynin 3-0 Yes [id number] 5mg Take 1 [facility] XL 5 mg 24 3-20 tablet by ity of hr tablet 00:00: mouth in [facility] the Medical morning. Branch metoprolol 3-0 Yes [id number] 25mg Take 1 [facility] nivers succinate 3-20 tablet by ity o f XL 25 mg 24 00:00: mouth [place] hr tablet 00 the Medical morning. Branch hydrALAZINE 3-0 Yes [id number] 50mg Take 1 [facility] 50 mg 3-20 tablet by ity of tablet 00:00: mouth in [place] the Medical morning Branch and 1 tablet in the evening. furosemide 2023-0 Yes [id number] 20mg Take 1 [facility] 20 mg 3-20 tablet by ity of tablet 00:00: mouth in [place] the Medical morning. Branch clopidogreL 3-0 Yes [id number] 75mg Take 1 [facility] 75 mg 3-20 tablet by ity of tablet 00:00: mouth in [place] the Medical morning. Branch tamsulosin 3-0 Yes [id number] .4mg Take 1 [facility] 0.4 mg 24 3-20 capsule by ity of hr capsule 00:00: mouth [place] [address] every Medical morning. Branch oxybutynin 3-0 Yes [id number] 5mg Take 1 [facility] XL 5 mg 24 3-20 tablet by ity of hr tablet 00:00: mouth in [facility] the Medical morning. Branch metoprolol 3-0 Yes [id number] 25mg Take 1 [facility] nivers succinate 3-20 tablet by ity o f XL 25 mg 24 00:00: mouth in [place] hr tablet 00 the Medical morning. Branch hydrALAZINE 3-0 Yes [id number] 50mg Take 1 [facility] 50 mg 3-20 tablet by ity of tablet 00:00: mouth in [place] 00 the Medical morning Branch and 1 tablet in the evening. furosemide 2023-0 Yes [id number] 20mg Take 1 [facility] 20 mg 3-20 tablet by ity of tablet 00:00: mouth in [place] the Medical morning. Branch clopidogreL 3-0 Yes [id number] 75mg Take 1 [facility] 75 mg 3-20 tablet by ity of tablet 00:00: mouth in [place] the Medical morning. Branch tamsulosin 3-0 Yes [id number] .4mg Take 1 [facility] 0.4 mg 24 3-20 capsule by ity of hr capsule 00:00: mouth [place] every Medical morning. Branch oxybutynin 3-0 Yes [id number] 5mg Take 1 [facility] XL 5 mg 24 3-20 tablet by ity of hr tablet 00:00: mouth in [facility] the Medical morning. Branch metoprolol 3-0 Yes [id number] 25mg Take 1 U nivers succinate 3-20 tablet by ity o f XL 25 mg 24 00:00: mouth in [place] hr tablet 00 the Medical morning. Branch hydrALAZINE 3-0 Yes [id number] 50mg Take 1 [facility] 50 mg 3-20 tablet by ity of tablet 00:00: mouth in [place] the Medical morning Branch and 1 tablet in the evening. furosemide 3-0 Yes [id number] 20mg Take 1 [facility] 20 mg 3-20 tablet by ity of tablet 00:00: mouth in [place] the Medical morning. Branch clopidogreL 3-0 Yes [id number] 75mg Take 1 [facility] 75 mg 3-20 tablet by ity of tablet 00:00: mouth in [place] the Medical morning. Branch tamsulosin 3-0 Yes [id number] .4mg Take 1 [facility] 0.4 mg 24 3-20 capsule by ity of hr capsule 00:00: mouth [place] [address] every Medical morning. Branch oxybutynin 3-0 Yes [id number] 5mg Take 1 [facility] XL 5 mg 24 3-20 tablet by ity of hr tablet 00:00: mouth in [facility] the Medical morning. Branch metoprolol 3-0 Yes [id number] 25mg Take 1 [facility] nivers succinate 3-20 tablet by ity o f XL 25 mg 24 00:00: mouth in [place] hr tablet 00 the Medical morning. Branch hydrALAZINE 3-0 Yes [id number] 50mg Take 1 [facility] 50 mg 3-20 tablet by ity of tablet 00:00: mouth in [place] 00 the Medical morning Branch and 1 tablet in the evening. furosemide 3-0 Yes [id number] 20mg Take 1 [facility] 20 mg 3-20 tablet by ity of tablet 00:00: mouth in [place] 00 the Medical morning. Branch clopidogreL 3-0 Yes [id number] 75mg Take 1 [facility] 75 mg 3-20 tablet by ity of tablet 00:00: mouth in [place] 00 the Medical morning. Branch tamsulosin 3-0 Yes [id number] .4mg Take 1 [facility] 0.4 mg 24 3-20 capsule by ity of hr capsule 00:00: mouth [place] [address] every Medical morning. Branch oxybutynin 2022-0 Yes [id number] 5mg Take 1 [facility] XL 5 mg 24 3-20 tablet by ity of hr tablet 00:00: mouth in [facility] the Medical morning. Branch metoprolol 2022-0 Yes [id number] 25mg Take 1 U nivers succinate 3-20 tablet by ity o f XL 25 mg 24 00:00: mouth in [place] hr tablet 00 the Medical morning. Branch hydrALAZINE 2022-0 Yes [id number] 50mg Take 1 [facility] 50 mg 3-20 tablet by ity of tablet 00:00: mouth in [place] the Medical morning Branch and 1 tablet in the evening. furosemide 3-0 Yes [id number] 20mg Take 1 [facility] 20 mg 3-20 tablet by ity of tablet 00:00: mouth in [place] 00 the Medical morning. Branch clopidogreL 3-0 Yes [id number] 75mg Take 1 [facility] 75 mg 3-20 tablet by ity of tablet 00:00: mouth in [place] 00 the Medical morning. Branch tamsulosin 3-0 Yes [id number] .4mg Take 1 [facility] 0.4 mg 24 3-20 capsule by ity of hr capsule 00:00: mouth [place] [address] every Medical morning. Branch oxybutynin 3-0 Yes [id number] 5mg Take 1 [facility] XL 5 mg 24 3-20 tablet by ity of hr tablet 00:00: mouth in [facility] 00 the Medical morning. Branch metoprolol 3-0 Yes [id number] 25mg Take 1 U nivers succinate 3-20 tablet by ity o f XL 25 mg 24 00:00: mouth in [place] hr tablet 00 the Medical morning. Branch hydrALAZINE 3-0 Yes [id number] 50mg Take 1 [facility] 50 mg 3-20 tablet by ity of tablet 00:00: mouth in [place] 00 the Medical morning Branch and 1 tablet in the evening. furosemide 3-0 Yes [id number] 20mg Take 1 [facility] 20 mg 3-20 tablet by ity of tablet 00:00: mouth in [place] 00 the Medical morning. Branch clopidogreL 2022-0 Yes [id number] 75mg Take 1 [facility] 75 mg 3-20 tablet by ity of tablet 00:00: mouth in [place] the Medical morning. Branch tamsulosin 3-0 Yes [id number] .4mg Take 1 [facility] 0.4 mg 24 3-20 capsule by ity of hr capsule 00:00: mouth [place] every Medical morning. Branch oxybutynin 2022-0 Yes [id number] 5mg Take 1 [facility] XL 5 mg 24 3-20 tablet by ity of hr tablet 00:00: mouth in [facility] the Medical morning. Branch metoprolol 3-0 Yes [id number] 25mg Take 1 U nivers succinate 3-20 tablet by ity o f XL 25 mg 24 00:00: mouth in [place] hr tablet 00 the Medical morning. Branch hydrALAZINE 2022-0 Yes [id number] 50mg Take 1 [facility] 50 mg 3-20 tablet by ity of tablet 00:00: mouth in [place] the Medical morning Branch and 1 tablet in the evening. furosemide 3-0 Yes [id number] 20mg Take 1 [facility] 20 mg 3-20 tablet by ity of tablet 00:00: mouth in [place] the Medical morning. Branch clopidogreL 3-0 Yes [id number] 75mg Take 1 [facility] 75 mg 3-20 tablet by ity of tablet 00:00: mouth in [place] 00 the Medical morning. Branch tamsulosin 3-0 Yes [id number] .4mg Take 1 [facility] 0.4 mg 24 3-20 capsule by ity of hr capsule 00:00: mouth [place] 00 every Medical morning. Branch oxybutynin 3-0 Yes [id number] 5mg Take 1 [facility] XL 5 mg 24 3-20 tablet by [facility] of hr tablet 00:00: mouth [place] 00 the Medical morning. Branch metoprolol 3-0 Yes [id number] 25mg Take 1 U nivers succinate 3-20 tablet by ity o f XL 25 mg 24 00:00: mouth in [place] hr tablet 00 the Medical morning. Branch hydrALAZINE 3-0 Yes [id number] 50mg Take 1 [facility] 50 mg 3-20 tablet by ity of tablet 00:00: mouth in [place] the Medical morning Branch and 1 tablet in the evening. furosemide 3-0 Yes [id number] 20mg Take 1 [facility] 20 mg 3-20 tablet by ity of tablet 00:00: mouth in [place] the Medical morning. Branch clopidogreL 3-0 Yes [id number] 75mg Take 1 [facility] 75 mg 3-20 tablet by ity of tablet 00:00: mouth in [place] the Medical morning. Branch tamsulosin 3-0 Yes [id number] .4mg Take 1 [facility] 0.4 mg 24 3-20 capsule by ity of hr capsule 00:00: mouth [place] [address] every Medical morning. Branch oxybutynin 3-0 Yes [id number] 5mg Take 1 [facility] XL 5 mg 24 3-20 tablet by ity of hr tablet 00:00: mouth in [facility] the Medical morning. Branch metoprolol 3-0 Yes [id number] 25mg Take 1 U nivers succinate 3-20 tablet by ity o f XL 25 mg 24 00:00: mouth in [facility] hr tablet 00 the Medical morning. Branch hydrALAZINE 3-0 Yes [id number] 50mg Take 1 [facility] 50 mg 3-20 tablet by ity of tablet 00:00: mouth in [place] the Medical morning Branch and 1 tablet in the evening. furosemide 3-0 Yes [id number] 20mg Take 1 [facility] 20 mg 3-20 tablet by ity of tablet 00:00: mouth in [place] 00 the Medical morning. Branch clopidogreL 3-0 Yes [id number] 75mg Take 1 [facility] 75 mg 3-20 tablet by ity of tablet 00:00: mouth in [place] [address] the Medical morning. Branch tamsulosin 3-0 Yes [id number] .4mg Take 1 [facility] 0.4 mg 24 3-20 capsule by ity of hr capsule 00:00: mouth [place] 00 every Medical morning. Branch oxybutynin 3-0 Yes [id number] 5mg Take 1 [facility] XL 5 mg 24 3-20 tablet by ity of hr tablet 00:00: mouth in [facility] 00 the Medical morning. Branch metoprolol 3-0 Yes [id number] 25mg Take 1 U nivers succinate 3-20 tablet by ity o f XL 25 mg 24 00:00: mouth in [place] hr tablet 00 the Medical morning. Branch hydrALAZINE 3-0 Yes [id number] 50mg Take 1 [facility] 50 mg 3-20 tablet by ity of tablet 00:00: mouth in [place] 00 the Medical morning Branch and 1 tablet in the evening. furosemide 2022-0 Yes [id number] 20mg Take 1 [facility] 20 mg 3-20 tablet by ity of tablet 00:00: mouth in [place] the Medical morning. Branch clopidogreL 2022-0 Yes [id number] 75mg Take 1 [facility] 75 mg 3-20 tablet by ity of tablet 00:00: mouth in [place] the Medical morning. Branch tamsulosin 2022-0 Yes [id number] .4mg Take 1 [facility] 0.4 mg 24 3-20 capsule by ity of hr capsule 00:00: mouth [place] 00 every Medical morning. Branch oxybutynin 2022-0 Yes [id number] 5mg Take 1 [facility] XL 5 mg 24 3-20 tablet by ity of hr tablet 00:00: mouth in [facility] the Medical morning. Branch metoprolol 3-0 Yes [id number] 25mg Take 1 U nivers succinate 3-20 tablet by ity o f XL 25 mg 24 00:00: mouth in [place] hr tablet 00 the Medical morning. Branch hydrALAZINE 3-0 Yes [id number] 50mg Take 1 [facility] 50 mg 3-20 tablet by ity of tablet 00:00: mouth in [place] 00 the Medical morning Branch and 1 tablet in the evening. furosemide 3-0 Yes [id number] 20mg Take 1 [facility] 20 mg 3-20 tablet by ity of tablet 00:00: mouth in [place] 00 the Medical morning. Branch clopidogreL 3-0 Yes [id number] 75mg Take 1 [facility] 75 mg 3-20 tablet by ity of tablet 00:00: mouth in [place] 00 the Medical morning. Branch tamsulosin 2023-0 Yes [id number] .4mg Take 1 [facility] 0.4 mg 24 3-20 capsule by ity of hr capsule 00:00: mouth [place] 00 every Medical morning. Branch oxybutynin 3-0 Yes [id number] 5mg Take 1 [facility] XL 5 mg 24 3-20 tablet by [facility]y of hr tablet 00:00: mouth [facility] the Medical morning. Branch metoprolol 3-0 Yes [id number] 25mg Take 1 U nivers succinate 3-20 tablet by ity o f XL 25 mg 24 00:00: mouth in [place] hr tablet 00 the Medical morning. Branch hydrALAZINE 2022-0 Yes [id number] 50mg Take 1 [facility] 50 mg 3-20 tablet by ity of tablet 00:00: mouth in [place] 00 the Medical morning Branch and 1 tablet in the evening. furosemide 2022-0 Yes [id number] 20mg Take 1 [facility] 20 mg 3-20 tablet by ity of tablet 00:00: mouth in [place] the Medical morning. Branch clopidogreL 2022-0 Yes [id number] 75mg Take 1 [facility] 75 mg 3-20 tablet by ity of tablet 00:00: mouth in [place] the Medical morning. Branch tamsulosin 3-0 Yes [id number] .4mg Take 1 [facility] 0.4 mg 24 3-20 capsule by ity of hr capsule 00:00: mouth [place] 00 every Medical morning. Branch oxybutynin 3-0 Yes [id number] 5mg Take 1 [facility] XL 5 mg 24 3-20 tablet by ity of hr tablet 00:00: mouth in [facility] 00 the Medical morning. Branch metoprolol 3-0 Yes [id number] 25mg Take 1 U nivers succinate 3-20 tablet by ity o f XL 25 mg 24 00:00: mouth in [place] hr tablet 00 the Medical morning. Branch hydrALAZINE 3-0 Yes [id number] 50mg Take 1 [facility] 50 mg 3-20 tablet by ity of tablet 00:00: mouth in [place] 00 the Medical morning Branch and 1 tablet in the evening. furosemide 3-0 Yes [id number] 20mg Take 1 [facility] 20 mg 3-20 tablet by ity of tablet 00:00: mouth in [place] 00 the Medical morning. Branch clopidogreL 3-0 Yes [id number] 75mg Take 1 [facility] 75 mg 3-20 tablet by ity of tablet 00:00: mouth in [place] 00 the Medical morning. Branch tamsulosin 3-0 Yes [id number] .4mg Take 1 [facility] 0.4 mg 24 3-20 capsule by ity of hr capsule 00:00: mouth [place] 00 every Medical morning. Branch oxybutynin 3-0 Yes [id number] 5mg Take 1 [facility] XL 5 mg 24 3-20 tablet by ity of hr tablet 00:00: mouth in [facility] 00 the Medical morning. Branch metoprolol 3-0 Yes [id number] 25mg Take 1 U nivers succinate 3-20 tablet by ity o f XL 25 mg 24 00:00: mouth in [place] hr tablet 00 the Medical morning. Branch hydrALAZINE 2022-0 Yes [id number] 50mg Take 1 [facility] 50 mg 3-20 tablet by ity of tablet 00:00: mouth in [place] 00 the Medical morning Branch and 1 tablet in the evening. furosemide 2022-0 Yes [id number] 20mg Take 1 [facility] 20 mg 3-20 tablet by ity of tablet 00:00: mouth in [place] 00 the Medical morning. Branch clopidogreL 2022-0 Yes [id number] 75mg Take 1 [facility] 75 mg 3-20 tablet by ity of tablet 00:00: mouth in [place] 00 the Medical morning. Branch tamsulosin 3-0 Yes [id number] .4mg Take 1 [facility] 0.4 mg 24 3-20 capsule by ity of hr capsule 00:00: mouth [place] 00 every Medical morning. Branch oxybutynin 3-0 Yes [id number] 5mg Take 1 [facility] XL 5 mg 24 3-20 tablet by ity of hr tablet 00:00: mouth in [facility] 00 the Medical morning. Branch metoprolol 3-0 Yes [id number] 25mg Take 1 U nivers succinate 3-20 tablet by ity o f XL 25 mg 24 00:00: mouth in [place] hr tablet 00 the Medical morning. Branch hydrALAZINE 3-0 Yes [id number] 50mg Take 1 [facility] 50 mg 3-20 tablet by ity of tablet 00:00: mouth in [place] 00 the Medical morning Branch and 1 tablet in the evening. furosemide 3-0 Yes [id number] 20mg Take 1 [facility] 20 mg 3-20 tablet by [facility] of tablet 00:00: mouth in [place] 00 the Medical morning. Branch clopidogreL 3-0 Yes [id number] 75mg Take 1 [facility] 75 mg 3-20 tablet by [facility] of tablet 00:00: mouth in [place] the Medical morning. Branch tamsulosin 3-0 Yes [id number] .4mg Take 1 Un b[facility]i 0.4 mg 24 3-20 capsule by [facility] of hr capsule 00:00: mouth [place] 00 every Medical morning. Branch oxybutynin 3-0 Yes [id number] 5mg Take 1 [facility] XL 5 mg 24 3-20 tablet by [facility] of hr tablet 00:00: mouth in [facility] the Medical morning. Branch metoprolol 3-0 Yes [id number] 25mg Take 1 U nivers succinate 3-20 tablet by ity o f XL 25 mg 24 00:00: mouth in [place] hr tablet 00 the Medical morning. Branch hydrALAZINE 3-0 Yes [id number] 50mg Take 1 [facility] 50 mg 3-20 tablet by [facility] of tablet 00:00: mouth in [place] 00 the Medical morning Branch and 1 tablet in the evening. furosemide 3-0 Yes [id number] 20mg Take 1 [facility] 20 mg 3-20 tablet by [facility] of tablet 00:00: mouth in [place] the Medical morning. Branch clopidogreL 2022-0 Yes [id number] 75mg Take 1 [facility] 75 mg 3-20 tablet by [facility] of tablet 00:00: mouth in [place] the Medical morning. Branch tamsulosin 3-0 Yes [id number] .4mg Take 1 [facility] 0.4 mg 24 3-20 capsule by [facility] of hr capsule 00:00: mouth [place] [address] every Medical morning. Branch oxybutynin 3-0 Yes [id number] 5mg Take 1 [facility] XL 5 mg 24 3-20 tablet by [facility]y of hr tablet 00:00: mouth in [facility] 00 the Medical morning. Branch metoprolol 3-0 Yes [id number] 25mg Take 1 U nivers succinate 3-20 tablet by ity o f XL 25 mg 24 00:00: mouth in [place] hr tablet 00 the Medical morning. Branch hydrALAZINE 3-0 Yes [id number] 50mg Take 1 [facility] 50 mg 3-20 tablet by [facility] of tablet 00:00: mouth in [place] the Medical morning Branch and 1 tablet in the evening. furosemide 2023-0 Yes [id number] 20mg Take 1 [facility] 20 mg 3-20 tablet by [facility] of tablet 00:00: mouth in [place] 00 the Medical morning. Branch clopidogreL 3-0 Yes [id number] 75mg Take 1 [facility] 75 mg 3-20 tablet by [facility] of tablet 00:00: mouth in [place] 00 the Medical morning. Branch tamsulosin 2023-0 Yes [id number] .4mg Take 1 [facility] 0.4 mg 24 3-20 capsule by [facility] of hr capsule 00:00: mouth [place] 00 every Medical morning. Branch oxybutynin 3-0 Yes [id number] 5mg Take 1 [facility] XL 5 mg 24 3-20 tablet by [facility] of hr tablet 00:00: mouth in [facility] the Medical morning. Branch metoprolol 3-0 Yes [id number] 25mg Take 1 U nivers succinate 3-20 tablet by ity o f XL 25 mg 24 00:00: mouth in [place] hr tablet 00 the Medical morning. Branch hydrALAZINE 3-0 Yes [id number] 50mg Take 1 [facility] 50 mg 3-20 tablet by [facility] of tablet 00:00: mouth in [place] the Medical morning Branch and 1 tablet in the evening. furosemide 3-0 Yes [id number] 20mg Take 1 [facility] 20 mg 3-20 tablet by [facility] of tablet 00:00: mouth in [place] the Medical morning. Branch clopidogreL 3-0 Yes [id number] 75mg Take 1 [facility] 75 mg 3-20 tablet by [facility] of tablet 00:00: mouth in [place] the Medical morning. Branch tamsulosin 2023-0 Yes [id number] .4mg Take 1 [facility] 0.4 mg 24 3-20 capsule by [facility] of hr capsule 00:00: mouth [place] 00 every Medical morning. Branch oxybutynin 3-0 Yes [id number] 5mg Take 1 [facility] XL 5 mg 24 3-20 tablet by [facility] of hr tablet 00:00: mouth in [facility] 00 the Medical morning. Branch metoprolol 2023-0 Yes [id number] 25mg Take 1 U nivers succinate 3-20 tablet by ity o f XL 25 mg 24 00:00: mouth in [place] hr tablet 00 the Medical morning. Branch hydrALAZINE 3-0 Yes [id number] 50mg Take 1 [facility] 50 mg 3-20 tablet by [facility] of tablet 00:00: mouth in [place] the Medical morning Branch and 1 tablet in the evening. furosemide 2023-0 Yes [id number] 20mg Take 1 [facility] 20 mg 3-20 tablet by [facility] of tablet 00:00: mouth in [place] the Medical morning. Branch clopidogreL 3-0 Yes [id number] 75mg Take 1 [facility] 75 mg 3-20 tablet by [facility] of tablet 00:00: mouth in [place] the Medical morning. Branch tamsulosin 3-0 Yes [id number] .4mg Take 1 [facility] 0.4 mg 24 3-20 capsule by [facility] of hr capsule 00:00: mouth [place] [address] every Medical morning. Branch oxybutynin 3-0 Yes [id number] 5mg Take 1 [facility] XL 5 mg 24 3-20 tablet by it[facility] of hr tablet 00:00: mouth in [place] [address] the Medical morning. Branch metoprolol 3-0 Yes [id number] 25mg Take 1 U nivers succinate 3-20 tablet by ity o f XL 25 mg 24 00:00: mouth in [place] hr tablet 00 the Medical morning. Branch hydrALAZINE 2022-0 Yes [id number] 50mg Take 1 [facility] 50 mg 3-20 tablet by [facility] of tablet 00:00: mouth in [place] the morning Branch and 1 tablet in the evening. clopidogreL 3-0 Yes [id number] 75mg Take 1 [facility] 75 mg 3-20 tablet by [facility] of tablet 00:00: mouth in [place] the Medical morning. Branch tamsulosin 3-0 Yes [id number] .4mg Take 1 [facility] 0.4 mg 24 3-20 capsule by [facility] of hr capsule 00:00: mouth [place] [address] every Medical morning. Branch oxybutynin 3-0 Yes [id number] 5mg Take 1 [facility] XL 5 mg 24 3-20 tablet by [facility] of hr tablet 00:00: mouth in [place] [address] the Medical morning. Branch metoprolol 3-0 Yes [id number] 25mg Take 1 U nivers succinate 3-20 tablet by ity o f XL 25 mg 24 00:00: mouth in [place] hr tablet 00 the Medical morning. Branch hydrALAZINE 3-0 Yes [id number] 50mg Take 1 [facility] 50 mg 3-20 tablet by [facility] of tablet 00:00: mouth in [place] the Medical morning Branch and 1 tablet in the evening. clopidogreL 3-0 Yes [id number] 75mg Take 1 [facility] 75 mg 3-20 tablet by [facility] of tablet 00:00: mouth in [place] 00 the Medical morning. Branch tamsulosin 3-0 Yes [id number] .4mg Take 1 [facility] 0.4 mg 24 3-20 capsule by [facility] of hr capsule 00:00: mouth [place] [address] every Medical morning. Branch oxybutynin 3-0 Yes [id number] 5mg Take 1 [facility] XL 5 mg 24 3-20 tablet by [facility] of hr tablet 00:00: mouth in [place] [address] the Medical morning. Branch metoprolol 3-0 Yes [id number] 25mg Take 1 U nivers succinate 3-20 tablet by ity o f XL 25 mg 24 00:00: mouth in [place] hr tablet 00 the Medical morning. Branch hydrALAZINE 3-0 Yes [id number] 50mg Take 1 [facility] 50 mg 3-20 tablet by [facility] of tablet 00:00: mouth in [place] the Medical morning Branch and 1 tablet in the evening. clopidogreL 3-0 Yes [id number] 75mg Take 1 [facility] 75 mg 3-20 tablet by [facility] of tablet 00:00: mouth in [place] the Medical morning. Branch tamsulosin 3-0 Yes [id number] .4mg Take 1 [facility] 0.4 mg 24 3-20 capsule by [facility] of hr capsule 00:00: mouth [place] every Medical morning. Branch oxybutynin 3-0 Yes [id number] 5mg Take 1 [facility] XL 5 mg 24 3-20 tablet by [facility] of hr tablet 00:00: mouth in [facility] the Medical morning. Branch metoprolol 2023-0 Yes [id number] 25mg Take 1 U nivers succinate 3-20 tablet by ity o f XL 25 mg 24 00:00: mouth in [place] hr tablet 00 the Medical morning. Branch hydrALAZINE 3-0 Yes [id number] 50mg Take 1 [facility] 50 mg 3-20 tablet by [facility] of tablet 00:00: mouth in [place] the Medical morning Branch and 1 tablet in the evening. clopidogreL 3-0 Yes [id number] 75mg Take 1 [facility] 75 mg 3-20 tablet by [facility] of tablet 00:00: mouth in [place] 00 the Medical morning. Branch tamsulosin 3-0 Yes [id number] .4mg Take 1 [facility] 0.4 mg 24 3-20 capsule by [facility] of hr capsule 00:00: mouth [place] 00 every Medical morning. Branch oxybutynin 3-0 Yes [id number] 5mg Take 1 [facility] XL 5 mg 24 3-20 tablet by [facility] of hr tablet 00:00: mouth in [facility] 00 the Medical morning. Branch metoprolol 3-0 Yes [id number] 25mg Take 1 U nivers succinate 3-20 tablet by ity o f XL 25 mg 24 00:00: mouth in [place] hr tablet 00 the Medical morning. Branch hydrALAZINE 2022-0 Yes [id number] 50mg Take 1 [facility] 50 mg 3-20 tablet by [facility] of tablet 00:00: mouth in [place] the Medical morning Branch and 1 tablet in the evening. clopidogreL 2022-0 Yes [id number] 75mg Take 1 [facility] 75 mg 3-20 tablet by [facility] of tablet 00:00: mouth in [place] the Medical morning. Branch tamsulosin 2022-0 Yes [id number] .4mg Take 1 [facility] 0.4 mg 24 3-20 capsule by [facility] of hr capsule 00:00: mouth [place] 00 every Medical morning. Branch oxybutynin 3-0 Yes [id number] 5mg Take 1 [facility] XL 5 mg 24 3-20 tablet by [facility] of hr tablet 00:00: mouth in [facility] the Medical morning. Branch metoprolol 3-0 Yes [id number] 25mg Take 1 U nivers succinate 3-20 tablet by ity o f XL 25 mg 24 00:00: mouth in [place] hr tablet 00 the Medical morning. Branch hydrALAZINE 3-0 Yes [id number] 50mg Take 1 [facility] 50 mg 3-20 tablet by [facility] of tablet 00:00: mouth in [place] 00 the Medical morning Branch and 1 tablet in the evening. clopidogreL 3-0 Yes [id number] 75mg Take 1 [facility] 75 mg 3-20 tablet by [facility] of tablet 00:00: mouth in [place] 00 the Medical morning. Branch tamsulosin 3-0 Yes [id number] .4mg Take 1 [facility] 0.4 mg 24 3-20 capsule by [facility] of hr capsule 00:00: mouth [place] 00 every Medical morning. Branch oxybutynin 3-0 Yes [id number] 5mg Take 1 [facility] XL 5 mg 24 3-20 tablet by ity of hr tablet 00:00: mouth in [facility] 00 the Medical morning. Branch metoprolol 3-0 Yes [id number] 25mg Take 1 U nivers succinate 3-20 tablet by ity o f XL 25 mg 24 00:00: mouth in [place] hr tablet 00 the Medical morning. Branch hydrALAZINE 3-0 Yes [id number] 50mg Take 1 [facility] 50 mg 3-20 tablet by ity of tablet 00:00: mouth in [place] 00 the Medical morning Branch and 1 tablet in the evening. clopidogreL 2022-0 Yes [id number] 75mg Take 1 [facility] 75 mg 3-20 tablet by it[facility] of tablet 00:00: mouth in [place] the Medical morning. Branch tamsulosin 3-0 Yes [id number] .4mg Take 1 Un [facility] 0.4 mg 24 3-20 capsule by [facility]y of hr capsule 00:00: mouth [place] 00 every Medical morning. Branch oxybutynin 3-0 Yes [id number] 5mg Take 1 [facility] XL 5 mg 24 3-20 tablet by ity of hr tablet 00:00: mouth in [facility] 00 the Medical morning. Branch metoprolol 3-0 Yes [id number] 25mg Take 1 U nivers succinate 3-20 tablet by ity o f XL 25 mg 24 00:00: mouth in [place] hr tablet 00 the Medical morning. Branch hydrALAZINE 3-0 Yes [id number] 50mg Take 1 [facility] 50 mg 3-20 tablet by it[facility] of tablet 00:00: mouth in [place] 00 the Medical morning Branch and 1 tablet in the evening. clopidogreL 3-0 Yes [id number] 75mg Take 1 [facility] 75 mg 3-20 tablet by ity of tablet 00:00: mouth in [place] 00 the Medical morning. Branch tamsulosin 3-0 Yes [id number] .4mg Take 1 Un [facility] 0.4 mg 24 3-20 capsule by [facility]y of hr capsule 00:00: mouth [place] 00 every Medical morning. Branch oxybutynin 2023-0 Yes [id number] 5mg Take 1 [facility] XL 5 mg 24 3-20 tablet by ity of hr tablet 00:00: mouth in [facility] the Medical morning. Branch metoprolol 3-0 Yes [id number] 25mg Take 1 U nivers succinate 3-20 tablet by ity o f XL 25 mg 24 00:00: mouth in [place] hr tablet 00 the Medical morning. Branch hydrALAZINE 3-0 Yes [id number] 50mg Take 1 [facility] 50 mg 3-20 tablet by it[facility] of tablet 00:00: mouth in [place] the Medical morning Branch and 1 tablet in the evening. clopidogreL 3-0 Yes [id number] 75mg Take 1 [facility] 75 mg 3-20 tablet by ity of tablet 00:00: mouth in [place] the Medical morning. Branch tamsulosin 3-0 Yes [id number] .4mg Take 1 [facility] 0.4 mg 24 3-20 capsule by [facility]y of hr capsule 00:00: mouth [place] every Medical morning. Branch oxybutynin 3-0 Yes [id number] 5mg Take 1 [facility] XL 5 mg 24 3-20 tablet by ity of hr tablet 00:00: mouth in [facility] the Medical morning. Branch metoprolol 3-0 Yes [id number] 25mg Take 1 U nivers succinate 3-20 tablet by ity o f XL 25 mg 24 00:00: mouth in [place] hr tablet 00 the Medical morning. Branch hydrALAZINE 3-0 Yes [id number] 50mg Take 1 [facility] 50 mg 3-20 tablet by ity of tablet 00:00: mouth in [place] the Medical morning Branch and 1 tablet in the evening. clopidogreL 3-0 Yes [id number] 75mg Take 1 [facility] 75 mg 3-20 tablet by [facility] of tablet 00:00: mouth in [place] the Medical morning. Branch tamsulosin 2023-0 Yes [id number] .4mg Take 1 Un [facility] 0.4 mg 24 3-20 capsule by [facility]y of hr capsule 00:00: mouth [place] 00 every Medical morning. Branch oxybutynin 2023-0 Yes [id number] 5mg Take 1 [facility] XL 5 mg 24 3-20 tablet by [facility] hr tablet 00:00: mouth [place] 00 the Medical morning. Branch metoprolol 2023-0 Yes [id number] 25mg Take 1 U nivers succinate 3-20 tablet by ity o f XL 25 mg 24 00:00: mouth in [place] hr tablet 00 the Medical morning. Branch hydrALAZINE 3-0 Yes [id number] 50mg Take 1 [facility] 50 mg 3-20 tablet by ity of tablet 00:00: mouth in [place] 00 the Medical morning Branch and 1 tablet in the evening. clopidogreL 3-0 Yes [id number] 75mg Take 1 [facility] 75 mg 3-20 tablet by ity of tablet 00:00: mouth in [place] 00 the Medical morning. Branch tamsulosin 3-0 Yes [id number] .4mg Take 1 Un [facility] 0.4 mg 24 3-20 capsule by ity of hr capsule 00:00: mouth [place] 00 every Medical morning. Branch oxybutynin 3-0 Yes [id number] 5mg Take 1 [facility] XL 5 mg 24 3-20 tablet by ity of hr tablet 00:00: mouth in [facility] the Medical morning. Branch metoprolol 3-0 Yes [id number] 25mg Take 1 U nivers succinate 3-20 tablet by ity o f XL 25 mg 24 00:00: mouth in [place] hr tablet 00 the Medical morning. Branch hydrALAZINE 3-0 Yes [id number] 50mg Take 1 [facility] 50 mg 3-20 tablet by ity of tablet 00:00: mouth in [place] 00 the Medical morning Branch and 1 tablet in the evening. clopidogreL 3-0 Yes [id number] 75mg Take 1 [facility] 75 mg 3-20 tablet by it[facility] of tablet 00:00: mouth in [place] 00 the Medical morning. Branch tamsulosin 3-0 Yes [id number] .4mg Take 1 [facility] 0.4 mg 24 3-20 capsule by ity of hr capsule 00:00: mouth [place] 00 every Medical morning. Branch oxybutynin 3-0 Yes [id number] 5mg Take 1 [facility] XL 5 mg 24 3-20 tablet by ity of hr tablet 00:00: mouth in [facility] 00 the Medical morning. Branch metoprolol 3-0 Yes [id number] 25mg Take 1 U nivers succinate 3-20 tablet by ity o f XL 25 mg 24 00:00: mouth in [place] hr tablet 00 the Medical morning. Branch hydrALAZINE 2023-0 Yes [id number] 50mg Take 1 [facility] 50 mg 3-20 tablet by ity of tablet 00:00: mouth in [place] the Medical morning Branch and 1 tablet in the evening. clopidogreL 3-0 Yes [id number] 75mg Take 1 [facility] 75 mg 3-20 tablet by ity of tablet 00:00: mouth in [place] 00 the Medical morning. Branch tamsulosin 3-0 Yes [id number] .4mg Take 1 Un [facility] 0.4 mg 24 3-20 capsule by ity of hr capsule 00:00: mouth [place] [address] every Medical morning. Branch oxybutynin 3-0 Yes [id number] 5mg Take 1 [facility] XL 5 mg 24 3-20 tablet by ity of hr tablet 00:00: mouth in [facility] 00 the Medical morning. Branch metoprolol 3-0 Yes [id number] 25mg Take 1 U nivers succinate 3-20 tablet by ity o f XL 25 mg 24 00:00: mouth in [place] hr tablet 00 the Medical morning. Branch hydrALAZINE 3-0 Yes [id number] 50mg Take 1 [facility] 50 mg 3-20 tablet by ity of tablet 00:00: mouth in [place] the Medical morning Branch and 1 tablet in the evening. clopidogreL 3-0 Yes [id number] 75mg Take 1 [facility] 75 mg 3-20 tablet by ity of tablet 00:00: mouth in [place] the Medical morning. Branch tamsulosin 3-0 Yes [id number] .4mg Take 1 [facility] 0.4 mg 24 3-20 capsule by ity of hr capsule 00:00: mouth [place] 00 every Medical morning. Branch oxybutynin 3-0 Yes [id number] 5mg Take 1 [facility] XL 5 mg 24 3-20 tablet by ity of hr tablet 00:00: mouth in [facility] 00 the Medical morning. Branch metoprolol 2023-0 Yes [id number] 25mg Take 1 U nivers succinate 3-20 tablet by ity o f XL 25 mg 24 00:00: mouth in [place] hr tablet 00 the Medical morning. Branch hydrALAZINE 2023-0 Yes [id number] 50mg Take 1 [facility] 50 mg 3-20 tablet by ity of tablet 00:00: mouth in [place] 00 the Medical morning Branch and 1 tablet in the evening. clopidogreL 2023-0 Yes [id number] 75mg Take 1 [facility] 75 mg 3-20 tablet by ity of tablet 00:00: mouth in [place] the Medical morning. Branch tamsulosin 2023-0 Yes [id number] .4mg Take 1 [facility] 0.4 mg 24 3-20 capsule by ity of hr capsule 00:00: mouth [place] every Medical morning. Branch oxybutynin 3-0 Yes [id number] 5mg Take 1 [facility] XL 5 mg 24 3-20 tablet by ity of hr tablet 00:00: mouth in [facility] the Medical morning. Branch metoprolol 3-0 Yes [id number] 25mg Take 1 U nivers succinate 3-20 tablet by ity o f XL 25 mg 24 00:00: mouth in [place] hr tablet 00 the Medical morning. Branch hydrALAZINE 3-0 Yes [id number] 50mg Take 1 [facility] 50 mg 3-20 tablet by ity of tablet 00:00: mouth in [place] the Medical morning Branch and 1 tablet in the evening. clopidogreL 3-0 Yes [id number] 75mg Take 1 [facility] 75 mg 3-20 tablet by ity of tablet 00:00: mouth in [place] the Medical morning. Branch tamsulosin 3-0 Yes [id number] .4mg Take 1 [facility] 0.4 mg 24 3-20 capsule by ity of hr capsule 00:00: mouth [place] every Medical morning. Branch oxybutynin 3-0 Yes [id number] 5mg Take 1 [facility] XL 5 mg 24 3-20 tablet by ity of hr tablet 00:00: mouth in [facility] the Medical morning. Branch metoprolol 2023-0 Yes [id number] 25mg Take 1 U nivers succinate 3-20 tablet by ity o f XL 25 mg 24 00:00: mouth in [place] hr tablet 00 the Medical morning. Branch hydrALAZINE 3-0 Yes [id number] 50mg Take 1 [facility] 50 mg 3-20 tablet by ity of tablet 00:00: mouth in [place] the Medical morning Branch and 1 tablet in the evening. clopidogreL 2023-0 Yes [id number] 75mg Take 1 [facility] 75 mg 3-20 tablet by ity of tablet 00:00: mouth in [place] the Medical morning. Branch tamsulosin 2023-0 Yes [id number] .4mg Take 1 [facility] 0.4 mg 24 3-20 capsule by ity of hr capsule 00:00: mouth [place] every Medical morning. Branch oxybutynin 3-0 Yes [id number] 5mg Take 1 [facility] XL 5 mg 24 3-20 tablet by ity of hr tablet 00:00: mouth in [facility] the Medical morning. Branch metoprolol 3-0 Yes [id number] 25mg Take 1 U nivers succinate 3-20 tablet by ity o f XL 25 mg 24 00:00: mouth in [place] hr tablet 00 the Medical morning. Branch hydrALAZINE 3-0 Yes [id number] 50mg Take 1 [facility] 50 mg 3-20 tablet by ity of tablet 00:00: mouth in [place] the Medical morning Branch and 1 tablet in the evening. clopidogreL 3-0 Yes [id number] 75mg Take 1 [facility] 75 mg 3-20 tablet by ity of tablet 00:00: mouth in [place] the Medical morning. Branch tamsulosin 3-0 Yes [id number] .4mg Take 1 Un [facility] 0.4 mg 24 3-20 capsule by ity of hr capsule 00:00: mouth [place] every Medical morning. Branch oxybutynin 3-0 Yes [id number] 5mg Take 1 [facility] XL 5 mg 24 3-20 tablet by ity of hr tablet 00:00: mouth in [facility] the Medical morning. Branch metoprolol 3-0 Yes [id number] 25mg Take 1 U nivers succinate 3-20 tablet by ity o f XL 25 mg 24 00:00: mouth in [place] hr tablet 00 the Medical morning. Branch hydrALAZINE 3-0 Yes [id number] 50mg Take 1 [facility] 50 mg 3-20 tablet by ity of tablet 00:00: mouth in [place] the Medical morning Branch and 1 tablet in the evening. clopidogreL 3-0 Yes [id number] 75mg Take 1 [facility] 75 mg 3-20 tablet by ity of tablet 00:00: mouth in [place] 00 the Medical morning. Branch tamsulosin 3-0 Yes [id number] .4mg Take 1 Un [facility] 0.4 mg 24 3-20 capsule by ity of hr capsule 00:00: mouth [place] 00 every Medical morning. Branch oxybutynin 2023-0 Yes [id number] 5mg Take 1 [facility] XL 5 mg 24 3-20 tablet by ity of hr tablet 00:00: mouth in [facility] the Medical morning. Branch metoprolol 2023-0 Yes [id number] 25mg Take 1 U nivers succinate 3-20 tablet by ity o f XL 25 mg 24 00:00: mouth in [place] hr tablet 00 the Medical morning. Branch hydrALAZINE 3-0 Yes [id number] 50mg Take 1 [facility] 50 mg 3-20 tablet by ity of tablet 00:00: mouth in [place] 00 the Medical morning Branch and 1 tablet in the evening. clopidogreL 2023-0 Yes [id number] 75mg Take 1 [facility] 75 mg 3-20 tablet by ity of tablet 00:00: mouth in [place] the Medical morning. Branch tamsulosin 2023-0 Yes [id number] .4mg Take 1 Un [facility] 0.4 mg 24 3-20 capsule by ity of hr capsule 00:00: mouth [place] every Medical morning. Branch oxybutynin 2023-0 Yes [id number] 5mg Take 1 [facility] XL 5 mg 24 3-20 tablet by ity of hr tablet 00:00: mouth in [facility] the Medical morning. Branch metoprolol 3-0 Yes [id number] 25mg Take 1 U nivers succinate 3-20 tablet by ity o f XL 25 mg 24 00:00: mouth in [place] hr tablet 00 the Medical morning. Branch hydrALAZINE 3-0 Yes [id number] 50mg Take 1 [facility] 50 mg 3-20 tablet by ity of tablet 00:00: mouth in [place] the Medical morning Branch and 1 tablet in the evening. clopidogreL 2023-0 Yes [id number] 75mg Take 1 [facility] 75 mg 3-20 tablet by ity of tablet 00:00: mouth in [place] 00 the Medical morning. Branch tamsulosin 2023-0 Yes [id number] .4mg Take 1 [facility] 0.4 mg 24 3-20 capsule by ity of hr capsule 00:00: mouth [place] 00 every Medical morning. Branch oxybutynin 2023-0 Yes [id number] 5mg Take 1 [facility] XL 5 mg 24 3-20 tablet by ity of hr tablet 00:00: mouth in [place] [address] the Medical morning. Branch metoprolol 2023-0 Yes [id number] 25mg Take 1 U nivers succinate 3-20 tablet by ity o f XL 25 mg 24 00:00: mouth in [place] hr tablet 00 the Medical morning. Branch hydrALAZINE 3-0 Yes [id number] 50mg Take 1 [facility] 50 mg 3-20 tablet by ity of tablet 00:00: mouth in [place] 00 the Medical morning Branch and 1 tablet in the evening. clopidogreL 3-0 Yes [id number] 75mg Take 1 [facility] 75 mg 3-20 tablet by ity of tablet 00:00: mouth in [place] the Medical morning. Branch tamsulosin 3-0 Yes [id number] .4mg Take 1 [facility] 0.4 mg 24 3-20 capsule by ity of hr capsule 00:00: mouth [place] [address] every Medical morning. Branch oxybutynin 3-0 Yes [id number] 5mg Take 1 [facility] XL 5 mg 24 3-20 tablet by ity of hr tablet 00:00: mouth in [facility] the Medical morning. Branch metoprolol 3-0 Yes [id number] 25mg Take 1 U nivers succinate 3-20 tablet by ity o f XL 25 mg 24 00:00: mouth in [facility] hr tablet 00 the Medical morning. Branch hydrALAZINE 3-0 Yes [id number] 50mg Take 1 [facility] 50 mg 3-20 tablet by ity of tablet 00:00: mouth in [place] the Medical morning Branch and 1 tablet in the evening. clopidogreL 3-0 Yes [id number] 75mg Take 1 [facility] 75 mg 3-20 tablet by ity of tablet 00:00: mouth in [place] the Medical morning. Branch tamsulosin 2023-0 Yes [id number] .4mg Take 1 [facility] 0.4 mg 24 3-20 capsule by ity of hr capsule 00:00: mouth [place] [address] every Medical morning. Branch oxybutynin 2023-0 Yes [id number] 5mg Take 1 [facility] XL 5 mg 24 3-20 tablet by ity of hr tablet 00:00: mouth in [place] [address] the Medical morning. Branch metoprolol 2023-0 Yes [id number] 25mg Take 1 U nivers succinate 3-20 tablet by ity o f XL 25 mg 24 00:00: mouth in [place] hr tablet 00 the Medical morning. Branch hydrALAZINE 3-0 Yes [id number] 50mg Take 1 [facility] 50 mg 3-20 tablet by ity of tablet 00:00: mouth in [place] 00 the Medical morning Branch and 1 tablet in the evening. clopidogreL 3-0 Yes [id number] 75mg Take 1 [facility] 75 mg 3-20 tablet by ity of tablet 00:00: mouth in [place] 00 the Medical morning. Branch tamsulosin 3-0 Yes [id number] .4mg Take 1 [facility] 0.4 mg 24 3-20 capsule by ity of hr capsule 00:00: mouth [place] 00 every Medical morning. Branch oxybutynin 3-0 Yes [id number] 5mg Take 1 [facility] XL 5 mg 24 3-20 tablet by ity of hr tablet 00:00: mouth in [facility] 00 the Medical morning. Branch metoprolol 3-0 Yes [id number] 25mg Take 1 U nivers succinate 3-20 tablet by ity o f XL 25 mg 24 00:00: mouth in [place] hr tablet 00 the Medical morning. Branch hydrALAZINE 3-0 Yes [id number] 50mg Take 1 [facility] 50 mg 3-20 tablet by ity of tablet 00:00: mouth in [place] the Medical morning Branch and 1 tablet in the evening. clopidogreL 2022-0 Yes [id number] 75mg Take 1 [facility] 75 mg 3-20 tablet by ity of tablet 00:00: mouth in [place] the Medical morning. Branch tamsulosin 3-0 Yes [id number] .4mg Take 1 [facility] 0.4 mg 24 3-20 capsule by [facility]y of hr capsule 00:00: mouth [place] 00 every Medical morning. Branch oxybutynin 3-0 Yes [id number] 5mg Take 1 [facility] XL 5 mg 24 3-20 tablet by ity of hr tablet 00:00: mouth in [facility] [facility]. Branch metoprolol 2023-0 Yes [id number] 25mg Take 1 U nivers succinate 3-20 tablet by ity o f XL 25 mg 24 00:00: mouth in [place] hr tablet 00 the Medical morning. Branch hydrALAZINE 2023-0 Yes [id number] 50mg Take 1 [facility] 50 mg 3-20 tablet by it[facility] of tablet 00:00: mouth in [place] the Medical morning Branch and 1 tablet in the evening. clopidogreL 2023-0 Yes [id number] 75mg Take 1 [facility] 75 mg 3-20 tablet by it[facility] of tablet 00:00: mouth in [place] 00 the Medical morning. Branch tamsulosin 2023-0 Yes [id number] .4mg Take 1 Un bhumi 0.4 mg 24 3-20 capsule by ity of hr capsule 00:00: mouth [place] [address] every Medical morning. Branch oxybutynin 3-0 Yes [id number] 5mg Take 1 [facility] XL 5 mg 24 3-20 tablet by ity of hr tablet 00:00: mouth in [place] [address] the Medical morning. Branch metoprolol 3-0 Yes [id number] 25mg Take 1 U nivers succinate 3-20 tablet by ity o f XL 25 mg 24 00:00: mouth in [place] hr tablet 00 the Medical morning. Branch hydrALAZINE 3-0 Yes [id number] 50mg Take 1 [facility] 50 mg 3-20 tablet by it[facility] of tablet 00:00: mouth in [place] the Medical morning Branch and 1 tablet in the evening. clopidogreL 3-0 Yes [id number] 75mg Take 1 [facility] 75 mg 3-20 tablet by ity of tablet 00:00: mouth in [place] the Medical morning. Branch tamsulosin 3-0 Yes [id number] .4mg Take 1 Un [facility]humi 0.4 mg 24 3-20 capsule by ity of hr capsule 00:00: mouth [place] [address] every Medical morning. Branch oxybutynin 3-0 Yes [id number] 5mg Take 1 [facility] XL 5 mg 24 3-20 tablet by ity of hr tablet 00:00: mouth in [place] [address] the Medical morning. Branch metoprolol 3-0 Yes [id number] 25mg Take 1 U nivers succinate 3-20 tablet by ity o f XL 25 mg 24 00:00: mouth in [place] hr tablet 00 the Medical morning. Branch hydrALAZINE 2023-0 Yes [id number] 50mg Take 1 [facility] 50 mg 3-20 tablet by ity of tablet 00:00: mouth in [place] the Medical morning Branch and 1 tablet in the evening. clopidogreL 3-0 Yes [id number] 75mg Take 1 [facility] 75 mg 3-20 tablet by ity of tablet 00:00: mouth in [place] 00 the Medical morning. Branch tamsulosin 3-0 Yes [id number] .4mg Take 1 [facility] 0.4 mg 24 3-20 capsule by ity of hr capsule 00:00: mouth [place] 00 every Medical morning. Branch oxybutynin 3-0 Yes [id number] 5mg Take 1 [facility] XL 5 mg 24 3-20 tablet by ity of hr tablet 00:00: mouth in [facility] the Medical morning. Branch metoprolol 3-0 Yes [id number] 25mg Take 1 U nivers succinate 3-20 tablet by ity o f XL 25 mg 24 00:00: mouth [place] hr tablet 00 the Medical morning. Branch hydrALAZINE 3-0 Yes [id number] 50mg Take 1 [facility] 50 mg 3-20 tablet by ity of tablet 00:00: mouth in [place] the Medical morning Branch and 1 tablet in the evening. clopidogreL 3-0 Yes [id number] 75mg Take 1 [facility] 75 mg 3-20 tablet by ity of tablet 00:00: mouth in [place] the Medical morning. Branch tamsulosin 3-0 Yes [id number] .4mg Take 1 Un [facility] 0.4 mg 24 3-20 capsule by ity of hr capsule 00:00: mouth [place] [address] every Medical morning. Branch oxybutynin 3-0 Yes [id number] 5mg Take 1 [facility] XL 5 mg 24 3-20 tablet by ity of hr tablet 00:00: mouth in [facility] the Medical morning. Branch metoprolol 3-0 Yes [id number] 25mg Take 1 [facility] nivers succinate 3-20 tablet by ity o f XL 25 mg 24 00:00: mouth [place] hr tablet 00 the Medical morning. Branch hydrALAZINE 3-0 Yes [id number] 50mg Take 1 [facility] 50 mg 3-20 tablet by ity of tablet 00:00: mouth in [place] the Medical morning Branch and 1 tablet in the evening. clopidogreL 3-0 Yes [id number] 75mg Take 1 [facility] 75 mg 3-20 tablet by ity of tablet 00:00: mouth in [place] [address] the Medical morning. Branch tamsulosin 2023-0 Yes [id number] .4mg Take 1 [facility] 0.4 mg 24 3-20 capsule by ity of hr capsule 00:00: mouth [place] 00 every Medical morning. Branch oxybutynin 2023-0 Yes [id number] 5mg Take 1 [facility] XL 5 mg 24 3-20 tablet by ity of hr tablet 00:00: mouth in [facility] the Medical morning. Branch metoprolol 2023-0 Yes [id number] 25mg Take 1 U nivers succinate 3-20 tablet by ity o f XL 25 mg 24 00:00: mouth in [place] hr tablet 00 the Medical morning. Branch hydrALAZINE 3-0 Yes [id number] 50mg Take 1 [facility] 50 mg 3-20 tablet by ity of tablet 00:00: mouth in [place] the Medical morning Branch and 1 tablet in the evening. clopidogreL 3-0 Yes [id number] 75mg Take 1 [facility] 75 mg 3-20 tablet by ity of tablet 00:00: mouth in [place] the Medical morning. Branch tamsulosin 2023-0 Yes [id number] .4mg Take 1 Un [facility] 0.4 mg 24 3-20 capsule by ity of hr capsule 00:00: mouth [place] [address] every Medical morning. Branch oxybutynin 3-0 Yes [id number] 5mg Take 1 [facility] XL 5 mg 24 3-20 tablet by ity of hr tablet 00:00: mouth in [facility] the Medical morning. Branch metoprolol 3-0 Yes [id number] 25mg Take 1 U nivers succinate 3-20 tablet by ity o f XL 25 mg 24 00:00: mouth in [facility] hr tablet 00 the Medical morning. Branch hydrALAZINE 3-0 Yes [id number] 50mg Take 1 [facility] 50 mg 3-20 tablet by ity of tablet 00:00: mouth in [place] the Medical morning Branch and 1 tablet in the evening. clopidogreL 3-0 Yes [id number] 75mg Take 1 [facility] 75 mg 3-20 tablet by ity of tablet 00:00: mouth in [place] the Medical morning. Branch tamsulosin 2023-0 Yes [id number] .4mg Take 1 Un [facility] 0.4 mg 24 3-20 capsule by ity of hr capsule 00:00: mouth [place] [address] every Medical morning. Branch oxybutynin 2023-0 Yes [id number] 5mg Take 1 [facility] XL 5 mg 24 3-20 tablet by ity of hr tablet 00:00: mouth in [facility] the Medical morning. Branch metoprolol 3-0 Yes [id number] 25mg Take 1 U nivers succinate 3-20 tablet by ity o f XL 25 mg 24 00:00: mouth in [place] hr tablet 00 the Medical morning. Branch hydrALAZINE 3-0 Yes [id number] 50mg Take 1 [facility] 50 mg 3-20 tablet by ity of tablet 00:00: mouth in [place] 00 the Medical morning Branch and 1 tablet in the evening. clopidogreL 3-0 Yes [id number] 75mg Take 1 [facility] 75 mg 3-20 tablet by ity of tablet 00:00: mouth in [place] the Medical morning. Branch tamsulosin 3-0 Yes [id number] .4mg Take 1 Un [facility] 0.4 mg 24 3-20 capsule by ity of hr capsule 00:00: mouth [place] [address] every Medical morning. Branch oxybutynin 3-0 Yes [id number] 5mg Take 1 [facility] XL 5 mg 24 3-20 tablet by ity of hr tablet 00:00: mouth in [facility] the Medical morning. Branch metoprolol 2022-0 Yes [id number] 25mg Take 1 U nivers succinate 3-20 tablet by ity o f XL 25 mg 24 00:00: mouth in [facility] hr tablet 00 the Medical morning. Branch hydrALAZINE 3-0 Yes [id number] 50mg Take 1 [facility] 50 mg 3-20 tablet by ity of tablet 00:00: mouth in [place] the Medical morning Branch and 1 tablet in the evening. clopidogreL 3-0 Yes [id number] 75mg Take 1 [facility] 75 mg 3-20 tablet by ity of tablet 00:00: mouth in [place] the Medical morning. Branch tamsulosin 3-0 Yes [id number] .4mg Take 1 Un [facility] 0.4 mg 24 3-20 capsule by ity of hr capsule 00:00: mouth [place] [address] every Medical morning. Branch oxybutynin 3-0 Yes [id number] 5mg Take 1 [facility] XL 5 mg 24 3-20 tablet by ity of hr tablet 00:00: mouth in [facility] 00 the Medical morning. Branch metoprolol 3-0 Yes [id number] 25mg Take 1 U nivers succinate 3-20 tablet by ity o f XL 25 mg 24 00:00: mouth in [place] hr tablet 00 the Medical morning. Branch hydrALAZINE 3-0 Yes [id number] 50mg Take 1 [facility] 50 mg 3-20 tablet by ity of tablet 00:00: mouth in [place] 00 the Medical morning Branch and 1 tablet in the evening. clopidogreL 3-0 Yes [id number] 75mg Take 1 [facility] 75 mg 3-20 tablet by ity of tablet 00:00: mouth in [place] 00 the Medical morning. Branch tamsulosin 3-0 Yes [id number] .4mg Take 1 Un [facility] 0.4 mg 24 3-20 capsule by ity of hr capsule 00:00: mouth [place] 00 every Medical morning. Branch oxybutynin 3-0 Yes [id number] 5mg Take 1 [facility] XL 5 mg 24 3-20 tablet by ity of hr tablet 00:00: mouth in [facility] 00 the Medical morning. Branch metoprolol 3-0 Yes [id number] 25mg Take 1 U nivers succinate 3-20 tablet by ity o f XL 25 mg 24 00:00: mouth in [place] hr tablet 00 the Medical morning. Branch hydrALAZINE 3-0 Yes [id number] 50mg Take 1 [facility] 50 mg 3-20 tablet by ity of tablet 00:00: mouth in [place] the Medical morning Branch and 1 tablet in the evening. clopidogreL 3-0 Yes [id number] 75mg Take 1 [facility] 75 mg 3-20 tablet by ity of tablet 00:00: mouth in [place] the Medical morning. Branch tamsulosin 3-0 Yes [id number] .4mg Take 1 Un [facility]i 0.4 mg 24 3-20 capsule by ity of hr capsule 00:00: mouth [place] 00 every Medical morning. Branch oxybutynin 3-0 Yes [id number] 5mg Take 1 [facility] XL 5 mg 24 3-20 tablet by ity of hr tablet 00:00: mouth in [facility] 00 the Medical morning. Branch metoprolol 3-0 Yes [id number] 25mg Take 1 U nivers succinate 3-20 tablet by ity o f XL 25 mg 24 00:00: mouth in [place] hr tablet 00 the Medical morning. Branch hydrALAZINE 3-0 Yes [id number] 50mg Take 1 [facility] 50 mg 3-20 tablet by ity of tablet 00:00: mouth in [place] the Medical morning Branch and 1 tablet in the evening. clopidogreL 2023-0 Yes [id number] 75mg Take 1 [facility] 75 mg 3-20 tablet by ity of tablet 00:00: mouth in [place] the Medical morning. Branch tamsulosin 3-0 Yes [id number] .4mg Take 1 Un [facility]humi 0.4 mg 24 3-20 capsule by ity of hr capsule 00:00: mouth [place] [address] every Medical morning. Branch oxybutynin 3-0 Yes [id number] 5mg Take 1 [facility] XL 5 mg 24 3-20 tablet by ity of hr tablet 00:00: mouth in [facility] the Medical morning. Branch metoprolol 3-0 Yes [id number] 25mg Take 1 U nivers succinate 3-20 tablet by ity o f XL 25 mg 24 00:00: mouth in [place] hr tablet 00 the Medical morning. Branch hydrALAZINE 3-0 Yes [id number] 50mg Take 1 [facility] 50 mg 3-20 tablet by ity of tablet 00:00: mouth in [place] the Medical morning Branch and 1 tablet in the evening. clopidogreL 3-0 Yes [id number] 75mg Take 1 [facility] 75 mg 3-20 tablet by ity of tablet 00:00: mouth in [place] the Medical morning. Branch tamsulosin 3-0 Yes [id number] .4mg Take 1 Un [facility] 0.4 mg 24 3-20 capsule by ity of hr capsule 00:00: mouth [place] every Medical morning. Branch oxybutynin 3-0 Yes [id number] 5mg Take 1 [facility] XL 5 mg 24 3-20 tablet by ity of hr tablet 00:00: mouth in [facility] the Medical morning. Branch metoprolol 3-0 Yes [id number] 25mg Take 1 U nivers succinate 3-20 tablet by ity o f XL 25 mg 24 00:00: mouth in [place] hr tablet 00 the Medical morning. Branch hydrALAZINE 3-0 Yes [id number] 50mg Take 1 [facility] 50 mg 3-20 tablet by ity of tablet 00:00: mouth in [place] the Medical morning Branch and 1 tablet in the evening. clopidogreL 3-0 Yes [id number] 75mg Take 1 [facility] 75 mg 3-20 tablet by ity of tablet 00:00: mouth in [place] 00 the Medical morning. Branch tamsulosin 3-0 Yes [id number] .4mg Take 1 Un [facility] 0.4 mg 24 3-20 capsule by ity of hr capsule 00:00: mouth [place] 00 every Medical morning. Branch oxybutynin 3-0 Yes [id number] 5mg Take 1 [facility] XL 5 mg 24 3-20 tablet by ity of hr tablet 00:00: mouth in [facility] 00 the Medical morning. Branch metoprolol 3-0 Yes [id number] 25mg Take 1 U nivers succinate 3-20 tablet by ity o f XL 25 mg 24 00:00: mouth in [place] hr tablet 00 the Medical morning. Branch hydrALAZINE 3-0 Yes [id number] 50mg Take 1 [facility] 50 mg 3-20 tablet by ity of tablet 00:00: mouth in [place] the Medical morning Branch and 1 tablet in the evening. clopidogreL 2022-0 Yes [id number] 75mg Take 1 [facility] 75 mg 3-20 tablet by ity of tablet 00:00: mouth in [place] the Medical morning. Branch tamsulosin 3-0 Yes [id number] .4mg Take 1 Un [facility]i 0.4 mg 24 3-20 capsule by ity of hr capsule 00:00: mouth [place] [address] every Medical morning. Branch oxybutynin 3-0 Yes [id number] 5mg Take 1 [facility] XL 5 mg 24 3-20 tablet by ity of hr tablet 00:00: mouth in [facility] the Medical morning. Branch metoprolol 3-0 Yes [id number] 25mg Take 1 U nivers succinate 3-20 tablet by ity o f XL 25 mg 24 00:00: mouth [place] hr tablet 00 the Medical morning. Branch hydrALAZINE 3-0 Yes [id number] 50mg Take 1 [facility] 50 mg 3-20 tablet by ity of tablet 00:00: mouth in [place] the Medical morning Branch and 1 tablet in the evening. clopidogreL 3-0 Yes [id number] 75mg Take 1 [facility] 75 mg 3-20 tablet by ity of tablet 00:00: mouth in [place] 00 the Medical morning. Branch tamsulosin 3-0 Yes [id number] .4mg Take 1 Un [facility] 0.4 mg 24 3-20 capsule by ity of hr capsule 00:00: mouth [place] 00 every Medical morning. Branch oxybutynin 3-0 Yes [id number] 5mg Take 1 [facility] XL 5 mg 24 3-20 tablet by ity of hr tablet 00:00: mouth in [facility] 00 the Medical morning. Branch metoprolol 3-0 Yes [id number] 25mg Take 1 U nivers succinate 3-20 tablet by ity o f XL 25 mg 24 00:00: mouth in [place] hr tablet 00 the Medical morning. Branch hydrALAZINE 3-0 Yes [id number] 50mg Take 1 [facility] 50 mg 3-20 tablet by ity of tablet 00:00: mouth in [place] the Medical morning Branch and 1 tablet in the evening. clopidogreL 3-0 Yes [id number] 75mg Take 1 [facility] 75 mg 3-20 tablet by ity of tablet 00:00: mouth in [place] the Medical morning. Branch tamsulosin 3-0 Yes [id number] .4mg Take 1 Un [facility] 0.4 mg 24 3-20 capsule by ity of hr capsule 00:00: mouth [place] every Medical morning. Branch oxybutynin 3-0 Yes [id number] 5mg Take 1 [facility] XL 5 mg 24 3-20 tablet by ity of hr tablet 00:00: mouth in [facility] the Medical morning. Branch metoprolol 3-0 Yes [id number] 25mg Take 1 U nivers succinate 3-20 tablet by ity o f XL 25 mg 24 00:00: mouth in [place] hr tablet 00 the Medical morning. Branch hydrALAZINE 3-0 Yes [id number] 50mg Take 1 [facility] 50 mg 3-20 tablet by ity of tablet 00:00: mouth in [place] the Medical morning Branch and 1 tablet in the evening. clopidogreL 3-0 Yes [id number] 75mg Take 1 [facility] 75 mg 3-20 tablet by ity of tablet 00:00: mouth in [place] 00 the Medical morning. Branch tamsulosin 2023-0 Yes [id number] .4mg Take 1 Un [facility]i 0.4 mg 24 3-20 capsule by ity of hr capsule 00:00: mouth [place] 00 every Medical morning. Branch oxybutynin 2023-0 Yes [id number] 5mg Take 1 [facility] XL 5 mg 24 3-20 tablet by ity of hr tablet 00:00: [facility] the Medical [facility]. Branch metoprolol 3-0 Yes [id number] 25mg Take 1 U nivers succinate 3-20 tablet by ity o f XL 25 mg 24 00:00: mouth in [place] hr tablet 00 the Medical morning. Branch hydrALAZINE 3-0 Yes [id number] 50mg Take 1 [facility] 50 mg 3-20 tablet by ity of tablet 00:00: mouth in [place] 00 the Medical morning Branch and 1 tablet in the evening. clopidogreL 3-0 Yes [id number] 75mg Take 1 [facility] 75 mg 3-20 tablet by ity of tablet 00:00: mouth in [place] 00 the Medical morning. Branch tamsulosin 3-0 Yes [id number] .4mg Take 1 Un [facility] 0.4 mg 24 3-20 capsule by ity of hr capsule 00:00: mouth [place] 00 every Medical morning. Branch oxybutynin 3-0 Yes [id number] 5mg Take 1 [facility] XL 5 mg 24 3-20 tablet by ity of hr tablet 00:00: mouth in [facility] the Medical morning. Branch metoprolol 3-0 Yes [id number] 25mg Take 1 U nivers succinate 3-20 tablet by ity o f XL 25 mg 24 00:00: mouth in [facility] hr tablet 00 the Medical morning. Branch hydrALAZINE 3-0 Yes [id number] 50mg Take 1 [facility] 50 mg 3-20 tablet by ity of tablet 00:00: mouth in [place] the Medical morning Branch and 1 tablet in the evening. clopidogreL 3-0 Yes [id number] 75mg Take 1 [facility] 75 mg 3-20 tablet by ity of tablet 00:00: mouth in [place] 00 the Medical morning. Branch tamsulosin 2023-0 Yes [id number] .4mg Take 1 Un [facility] 0.4 mg 24 3-20 capsule by ity of hr capsule 00:00: mouth [place] 00 every Medical morning. Branch oxybutynin 2023-0 Yes [id number] 5mg Take 1 [facility] XL 5 mg 24 3-20 tablet by ity of hr tablet 00:00: mouth in [facility] 00 the Medical morning. Branch metoprolol 3-0 Yes [id number] 25mg Take 1 U nivers succinate 3-20 tablet by ity o f XL 25 mg 24 00:00: mouth in [place] hr tablet 00 the Medical morning. Branch hydrALAZINE 3-0 Yes [id number] 50mg Take 1 [facility] 50 mg 3-20 tablet by ity of tablet 00:00: mouth in [place] 00 the Medical morning Branch and 1 tablet in the evening. clopidogreL 2023-0 Yes [id number] 75mg Take 1 [facility] 75 mg 3-20 tablet by ity of tablet 00:00: mouth in [place] 00 the Medical morning. Branch tamsulosin 3-0 Yes [id number] .4mg Take 1 Un [facility] 0.4 mg 24 3-20 capsule by ity of hr capsule 00:00: mouth [place] 00 every Medical morning. Branch oxybutynin 3-0 Yes [id number] 5mg Take 1 [facility] XL 5 mg 24 3-20 tablet by ity of hr tablet 00:00: mouth in [facility] 00 the Medical morning. Branch metoprolol 3-0 Yes [id number] 25mg Take 1 U nivers succinate 3-20 tablet by ity o f XL 25 mg 24 00:00: mouth in [place] hr tablet 00 the Medical morning. Branch hydrALAZINE 3-0 Yes [id number] 50mg Take 1 [facility] 50 mg 3-20 tablet by ity of tablet 00:00: mouth in [place] the Medical morning Branch and 1 tablet in the evening. clopidogreL 3-0 Yes [id number] 75mg Take 1 [facility] 75 mg 3-20 tablet by ity of tablet 00:00: mouth in [place] 00 the Medical morning. Branch tamsulosin 3-0 Yes [id number] .4mg Take 1 Un [facility] 0.4 mg 24 3-20 capsule by ity of hr capsule 00:00: mouth [place] 00 every Medical morning. Branch oxybutynin 3-0 Yes [id number] 5mg Take 1 [facility] XL 5 mg 24 3-20 tablet by ity of hr tablet 00:00: mouth in [facility] 00 the Medical morning. Branch metoprolol 3-0 Yes [id number] 25mg Take 1 U nivers succinate 3-20 tablet by ity o f XL 25 mg 24 00:00: mouth in [place] hr tablet 00 the Medical morning. Branch hydrALAZINE 2023-0 Yes [id number] 50mg Take 1 [facility] 50 mg 3-20 tablet by ity of tablet 00:00: mouth in [place] the Medical morning Branch and 1 tablet in the evening. clopidogreL 3-0 Yes [id number] 75mg Take 1 [facility] 75 mg 3-20 tablet by ity of tablet 00:00: mouth in [place] the Medical morning. Branch tamsulosin 3-0 Yes [id number] .4mg Take 1 Un [facility] 0.4 mg 24 3-20 capsule by ity of hr capsule 00:00: mouth [place] [address] every Medical morning. Branch oxybutynin 3-0 Yes [id number] 5mg Take 1 [facility] XL 5 mg 24 3-20 tablet by ity of hr tablet 00:00: mouth in [facility] the Medical morning. Branch metoprolol 3-0 Yes [id number] 25mg Take 1 U nivers succinate 3-20 tablet by ity o f XL 25 mg 24 00:00: mouth in [place] hr tablet 00 the Medical morning. Branch hydrALAZINE 3-0 Yes [id number] 50mg Take 1 [facility] 50 mg 3-20 tablet by ity of tablet 00:00: mouth in [place] the Medical morning Branch and 1 tablet in the evening. clopidogreL 3-0 Yes [id number] 75mg Take 1 [facility] 75 mg 3-20 tablet by ity of tablet 00:00: mouth in [place] the Medical morning. Branch tamsulosin 3-0 Yes [id number] .4mg Take 1 Un [facility] 0.4 mg 24 3-20 capsule by ity of hr capsule 00:00: mouth [place] [address] every Medical morning. Branch oxybutynin 3-0 Yes [id number] 5mg Take 1 [facility] XL 5 mg 24 3-20 tablet by ity of hr tablet 00:00: mouth in [facility] the Medical morning. Branch metoprolol 3-0 Yes [id number] 25mg Take 1 U nivers succinate 3-20 tablet by ity o f XL 25 mg 24 00:00: mouth in [place] hr tablet 00 the Medical morning. Branch hydrALAZINE 3-0 Yes [id number] 50mg Take 1 [facility] 50 mg 3-20 tablet by ity of tablet 00:00: mouth in [place] the Medical morning Branch and 1 tablet in the evening. clopidogreL 2023-0 Yes [id number] 75mg Take 1 [facility] 75 mg 3-20 tablet by ity of tablet 00:00: mouth in [place] 00 the Medical morning. Branch tamsulosin 3-0 Yes [id number] .4mg Take 1 Un [facility] 0.4 mg 24 3-20 capsule by ity of hr capsule 00:00: mouth [place] 00 every Medical morning. Branch oxybutynin 3-0 Yes [id number] 5mg Take 1 [facility] XL 5 mg 24 3-20 tablet by ity of hr tablet 00:00: mouth in [facility] 00 the Medical morning. Branch metoprolol 3-0 Yes [id number] 25mg Take 1 U nivers succinate 3-20 tablet by ity o f XL 25 mg 24 00:00: mouth in [place] tablet 00 the Medical morning. Branch hydrALAZINE 3-0 Yes [id number] 50mg Take 1 [facility] 50 mg 3-20 tablet by ity of tablet 00:00: mouth in [place] the Medical morning Branch and 1 tablet in the evening. clopidogreL 2022-0 Yes [id number] 75mg Take 1 [facility] 75 mg 3-20 tablet by ity of tablet 00:00: mouth in [place] the Medical morning. Branch tamsulosin 3-0 Yes [id number] .4mg Take 1 Un [facility] 0.4 mg 24 3-20 capsule by ity of hr capsule 00:00: mouth [place] 00 every Medical morning. Branch oxybutynin 3-0 Yes [id number] 5mg Take 1 [facility] XL 5 mg 24 3-20 tablet by ity of hr tablet 00:00: mouth in [facility] the Medical morning. Branch metoprolol 3-0 Yes [id number] 25mg Take 1 U nivers succinate 3-20 tablet by ity o f XL 25 mg 24 00:00: mouth in [place] hr tablet 00 the Medical morning. Branch hydrALAZINE 3-0 Yes [id number] 50mg Take 1 [facility] 50 mg 3-20 tablet by ity of tablet 00:00: mouth in [place] 00 the Medical morning Branch and 1 tablet in the evening. clopidogreL 3-0 Yes [id number] 75mg Take 1 [facility] 75 mg 3-20 tablet by ity of tablet 00:00: mouth in [place] 00 the Medical morning. Branch tamsulosin 3-0 Yes [id number] .4mg Take 1 Un [facility] 0.4 mg 24 3-20 capsule by ity of hr capsule 00:00: mouth [place] 00 every Medical morning. Branch oxybutynin 3-0 Yes [id number] 5mg Take 1 [facility] XL 5 mg 24 3-20 tablet by [facility] hr tablet 00:00: [place] the Medical morning. Branch metoprolol 3-0 Yes [id number] 25mg Take 1 U nivers succinate 3-20 tablet by ity o f XL 25 mg 24 00:00: mouth in [place] hr tablet 00 the Medical morning. Branch hydrALAZINE 3-0 Yes [id number] 50mg Take 1 [facility] 50 mg 3-20 tablet by ity of tablet 00:00: mouth in [place] 00 the Medical morning Branch and 1 tablet in the evening. clopidogreL 3-0 Yes [id number] 75mg Take 1 [facility] 75 mg 3-20 tablet by ity of tablet 00:00: mouth in [place] the Medical morning. Branch tamsulosin 3-0 Yes [id number] .4mg Take 1 Un [facility] 0.4 mg 24 3-20 capsule by [facility]y of hr capsule 00:00: mouth [place] 00 every Medical morning. Branch oxybutynin 3-0 Yes [id number] 5mg Take 1 [facility] XL 5 mg 24 3-20 tablet by ity of hr tablet 00:00: mouth in [facility] 00 the Medical morning. Branch metoprolol 3-0 Yes [id number] 25mg Take 1 U nivers succinate 3-20 tablet by ity o f XL 25 mg 24 00:00: mouth in [place] hr tablet 00 the Medical morning. Branch hydrALAZINE 3-0 Yes [id number] 50mg Take 1 [facility] 50 mg 3-20 tablet by ity of tablet 00:00: mouth in [place] the Medical morning Branch and 1 tablet in the evening. clopidogreL 3-0 Yes [id number] 75mg Take 1 [facility] 75 mg 3-20 tablet by ity of tablet 00:00: mouth in [place] 00 the Medical morning. Branch tamsulosin 3-0 Yes [id number] .4mg Take 1 Un [facility] 0.4 mg 24 3-20 capsule by [facility]y of hr capsule 00:00: mouth [place] 00 every Medical morning. Branch oxybutynin 3-0 Yes [id number] 5mg Take 1 [facility] XL 5 mg 24 3-20 tablet by [facility] hr tablet 00:00: mouth [place] 00 the Medical morning. Branch metoprolol 3-0 Yes [id number] 25mg Take 1 U nivers succinate 3-20 tablet by ity o f XL 25 mg 24 00:00: mouth in [place] hr tablet 00 the Medical morning. Branch hydrALAZINE 3-0 Yes [id number] 50mg Take 1 [facility] 50 mg 3-20 tablet by ity of tablet 00:00: mouth in [place] 00 the Medical morning Branch and 1 tablet in the evening. clopidogreL 3-0 Yes [id number] 75mg Take 1 [facility] 75 mg 3-20 tablet by ity of tablet 00:00: mouth in [place] 00 the Medical morning. Branch tamsulosin 2022-0 Yes [id number] .4mg Take 1 Un [facility] 0.4 mg 24 3-20 capsule by ity of hr capsule 00:00: mouth [place] 00 every Medical morning. Branch oxybutynin 2022-0 Yes [id number] 5mg Take 1 [facility] XL 5 mg 24 3-20 tablet by ity of hr tablet 00:00: mouth in [facility] the Medical morning. Branch metoprolol 2022-0 Yes [id number] 25mg Take 1 U nivers succinate 3-20 tablet by ity o f XL 25 mg 24 00:00: mouth [place] hr tablet 00 the Medical morning. Branch hydrALAZINE 2022-0 Yes [id number] 50mg Take 1 [facility] 50 mg 3-20 tablet by it[facility] of tablet 00:00: mouth in [place] the Medical morning Branch and 1 tablet in the evening. clopidogreL 3-0 Yes [id number] 75mg Take 1 [facility] 75 mg 3-20 tablet by ity of tablet 00:00: mouth in [place] 00 the Medical morning. Branch tamsulosin 3-0 Yes [id number] .4mg Take 1 Un [facility] 0.4 mg 24 3-20 capsule by ity of hr capsule 00:00: mouth [place] 00 every Medical morning. Branch oxybutynin 3-0 Yes [id number] 5mg Take 1 [facility] XL 5 mg 24 3-20 tablet by ity of hr tablet 00:00: mouth [place] 00 the Medical morning. Branch metoprolol 3-0 Yes [id number] 25mg Take 1 U nivers succinate 3-20 tablet by ity o f XL 25 mg 24 00:00: mouth in [place] hr tablet 00 the Medical morning. Branch hydrALAZINE 2022-0 Yes [id number] 50mg Take 1 [facility] 50 mg 3-20 tablet by it[facility] of tablet 00:00: mouth in [place] 00 the Medical morning Branch and 1 tablet in the evening. clopidogreL 3-0 Yes [id number] 75mg Take 1 [facility] 75 mg 3-20 tablet by ity of tablet 00:00: mouth in [place] 00 the Medical morning. Branch tamsulosin 3-0 Yes [id number] .4mg Take 1 Un [facility] 0.4 mg 24 3-20 capsule by ity of hr capsule 00:00: mouth [place] 00 every Medical morning. Branch oxybutynin 2022-0 Yes [id number] 5mg Take 1 [facility] XL 5 mg 24 3-20 tablet by ity of hr tablet 00:00: mouth in [facility] 00 the Medical morning. Branch metoprolol 2022-0 Yes [id number] 25mg Take 1 U nivers succinate 3-20 tablet by ity o f XL 25 mg 24 00:00: mouth in [place] hr tablet 00 the Medical morning. Branch hydrALAZINE 2022-0 Yes [id number] 50mg Take 1 [facility] 50 mg 3-20 tablet by ity of tablet 00:00: mouth in [place] the Medical morning Branch and 1 tablet in the evening. clopidogreL 2022-0 Yes [id number] 75mg Take 1 [facility] 75 mg 3-20 tablet by ity of tablet 00:00: mouth in [place] 00 the Medical morning. Branch tamsulosin 3-0 Yes [id number] .4mg Take 1 [facility] 0.4 mg 24 3-20 capsule by ity of hr capsule 00:00: mouth [place] 00 every Medical morning. Branch oxybutynin 3-0 Yes [id number] 5mg Take 1 [facility] XL 5 mg 24 3-20 tablet by ity of hr tablet 00:00: mouth [place] 00 the Medical morning. Branch metoprolol 3-0 Yes [id number] 25mg Take 1 U nivers succinate 3-20 tablet by ity o f XL 25 mg 24 00:00: mouth in [place] hr tablet 00 the Medical morning. Branch hydrALAZINE 3-0 Yes [id number] 50mg Take 1 [facility] 50 mg 3-20 tablet by ity of tablet 00:00: mouth in [place] the Medical morning Branch and 1 tablet in the evening. clopidogreL 3-0 Yes [id number] 75mg Take 1 [facility] 75 mg 3-20 tablet by ity of tablet 00:00: mouth in [place] 00 the Medical morning. Branch tamsulosin 3-0 Yes [id number] .4mg Take 1 [facility] 0.4 mg 24 3-20 capsule by ity of hr capsule 00:00: mouth [place] every Medical morning. Branch oxybutynin 3-0 Yes [id number] 5mg Take 1 [facility] XL 5 mg 24 3-20 tablet by ity of hr tablet 00:00: mouth in [facility] 00 the Medical morning. Branch metoprolol 3-0 Yes [id number] 25mg Take 1 U nivers succinate 3-20 tablet by ity o f XL 25 mg 24 00:00: mouth [place] hr tablet 00 the Medical morning. Branch hydrALAZINE 3-0 Yes [id number] 50mg Take 1 [facility] 50 mg 3-20 tablet by ity of tablet 00:00: mouth in [place] the Medical morning Branch and 1 tablet in the evening. clopidogreL 2022-0 Yes [id number] 75mg Take 1 [facility] 75 mg 3-20 tablet by ity of tablet 00:00: mouth in [place] the Medical morning. Branch tamsulosin 3-0 Yes [id number] .4mg Take 1 [facility] [place] 0.4 mg 24 3-20 capsule by ity of hr capsule 00:00: mouth [place] every Medical morning. Branch oxybutynin 3-0 Yes [id number] 5mg Take 1 [facility] XL 5 mg 24 3-20 tablet by ity of hr tablet 00:00: mouth in [facility] 00 the Medical morning. Branch metoprolol 3-0 Yes [id number] 25mg Take 1 U nivers succinate 3-20 tablet by ity o f XL 25 mg 24 00:00: mouth in [place] hr tablet 00 the Medical morning. Branch hydrALAZINE 3-0 Yes [id number] 50mg Take 1 [facility] 50 mg 3-20 tablet by ity of tablet 00:00: mouth in [place] the Medical morning Branch and 1 tablet in the evening. clopidogreL 2023-0 Yes [id number] 75mg Take 1 [facility] 75 mg 3-20 tablet by ity of tablet 00:00: mouth in [place] 00 the Medical morning. Branch tamsulosin 3-0 Yes [id number] .4mg Take 1 [facility] 0.4 mg 24 3-20 capsule by ity of hr capsule 00:00: mouth [place] 00 every Medical morning. Branch oxybutynin 3-0 Yes [id number] 5mg Take 1 [facility] XL 5 mg 24 3-20 tablet by ity of hr tablet 00:00: mouth in [facility] the Medical morning. Branch metoprolol 3-0 Yes [id number] 25mg Take 1 U nivers succinate 3-20 tablet by ity o f XL 25 mg 24 00:00: mouth in [place] hr tablet 00 the Medical morning. Branch hydrALAZINE 3-0 Yes [id number] 50mg Take 1 [facility] 50 mg 3-20 tablet by ity of tablet 00:00: mouth in [place] the Medical morning Branch and 1 tablet in the evening. clopidogreL 2022-0 Yes [id number] 75mg Take 1 [facility] 75 mg 3-20 tablet by ity of tablet 00:00: mouth in [place] the Medical morning. Branch tamsulosin 2022-0 Yes [id number] .4mg Take 1 [facility] [place] 0.4 mg 24 3-20 capsule by ity of hr capsule 00:00: mouth [place] 00 every Medical morning. Branch oxybutynin 3-0 Yes [id number] 5mg Take 1 [facility] XL 5 mg 24 3-20 tablet by ity of hr tablet 00:00: mouth in [facility] the Medical morning. Branch metoprolol 3-0 Yes [id number] 25mg Take 1 U nivers succinate 3-20 tablet by ity o f XL 25 mg 24 00:00: mouth in [place] hr tablet 00 the Medical morning. Branch hydrALAZINE 3-0 Yes [id number] 50mg Take 1 [facility] 50 mg 3-20 tablet by ity of tablet 00:00: mouth in [place] the Medical morning Branch and 1 tablet in the evening. clopidogreL 3-0 Yes [id number] 75mg Take 1 [facility] 75 mg 3-20 tablet by ity of tablet 00:00: mouth in [place] 00 the Medical morning. Branch tamsulosin 3-0 Yes [id number] .4mg Take 1 [facility] [place] 0.4 mg 24 3-20 capsule by ity of hr capsule 00:00: mouth [place] 00 every Medical morning. Branch oxybutynin 3-0 Yes [id number] 5mg Take 1 [facility] XL 5 mg 24 3-20 tablet by [facility] of hr tablet 00:00: mouth [place] 00 the Medical morning. Branch metoprolol 3-0 Yes [id number] 25mg Take 1 U nivers succinate 3-20 tablet by ity o f XL 25 mg 24 00:00: mouth in [place] hr tablet 00 the Medical morning. Branch hydrALAZINE 3-0 Yes [id number] 50mg Take 1 [facility] 50 mg 3-20 tablet by ity of tablet 00:00: mouth in [place] the Medical morning Branch and 1 tablet in the evening. clopidogreL 2022-0 Yes [id number] 75mg Take 1 [facility] 75 mg 3-20 tablet by ity of tablet 00:00: mouth in [place] the Medical morning. Branch tamsulosin 3-0 Yes [id number] .4mg Take 1 [facility] [place] 0.4 mg 24 3-20 capsule by ity of hr capsule 00:00: mouth [place] 00 every Medical morning. Branch oxybutynin 3-0 Yes [id number] 5mg Take 1 [facility] XL 5 mg 24 3-20 tablet by ity of hr tablet 00:00: mouth in [facility] the Medical morning. Branch metoprolol 3-0 Yes [id number] 25mg Take 1 U nivers succinate 3-20 tablet by ity o f XL 25 mg 24 00:00: mouth in [place] hr tablet 00 the Medical morning. Branch hydrALAZINE 3-0 Yes [id number] 50mg Take 1 [facility] 50 mg 3-20 tablet by ity of tablet 00:00: mouth in [place] the Medical morning Branch and 1 tablet in the evening. clopidogreL 3-0 Yes [id number] 75mg Take 1 [facility] 75 mg 3-20 tablet by ity of tablet 00:00: mouth in [place] 00 the Medical morning. Branch tamsulosin 3-0 Yes [id number] .4mg Take 1 [facility] 0.4 mg 24 3-20 capsule by ity of hr capsule 00:00: mouth [place] 00 every Medical morning. Branch oxybutynin 3-0 Yes [id number] 5mg Take 1 [facility] XL 5 mg 24 3-20 tablet by ity of hr tablet 00:00: mouth in [facility] the Medical morning. Branch metoprolol 3-0 Yes [id number] 25mg Take 1 U nivers succinate 3-20 tablet by ity o f XL 25 mg 24 00:00: mouth in [place] hr tablet 00 the Medical morning. Branch hydrALAZINE 3-0 Yes [id number] 50mg Take 1 [facility] 50 mg 3-20 tablet by ity of tablet 00:00: mouth in [place] the Medical morning Branch and 1 tablet in the evening. clopidogreL 3-0 Yes [id number] 75mg Take 1 [facility] 75 mg 3-20 tablet by ity of tablet 00:00: mouth in [place] the Medical morning. Branch tamsulosin 3-0 Yes [id number] .4mg Take 1 Un [facility] 0.4 mg 24 3-20 capsule by ity of hr capsule 00:00: mouth [place] [address] every Medical morning. Branch oxybutynin 3-0 Yes [id number] 5mg Take 1 [facility] XL 5 mg 24 3-20 tablet by ity of hr tablet 00:00: mouth in [facility] the Medical morning. Branch metoprolol 2022-0 Yes [id number] 25mg Take 1 U nivers succinate 3-20 tablet by ity o f XL 25 mg 24 00:00: mouth in [facility] hr tablet 00 the Medical morning. Branch hydrALAZINE 3-0 Yes [id number] 50mg Take 1 [facility] 50 mg 3-20 tablet by ity of tablet 00:00: mouth in [place] the Medical morning Branch and 1 tablet in the evening. clopidogreL 3-0 Yes [id number] 75mg Take 1 [facility] 75 mg 3-20 tablet by ity of tablet 00:00: mouth in [place] the Medical morning. Branch tamsulosin 3-0 Yes [id number] .4mg Take 1 Un [facility] 0.4 mg 24 3-20 capsule by ity of hr capsule 00:00: mouth [place] [address] every Medical morning. Branch oxybutynin 3-0 Yes [id number] 5mg Take 1 [facility] XL 5 mg 24 3-20 tablet by ity of hr tablet 00:00: mouth in [facility] 00 the Medical morning. Branch metoprolol 3-0 Yes [id number] 25mg Take 1 U nivers succinate 3-20 tablet by ity o f XL 25 mg 24 00:00: mouth in [place] hr tablet 00 the Medical morning. Branch hydrALAZINE 2022-0 Yes [id number] 50mg Take 1 [facility] 50 mg 3-20 tablet by ity of tablet 00:00: mouth in [place] 00 the Medical morning Branch and 1 tablet in the evening. clopidogreL 3-0 Yes [id number] 75mg Take 1 [facility] 75 mg 3-20 tablet by ity of tablet 00:00: mouth in [place] 00 the Medical morning. Branch tamsulosin 3-0 Yes [id number] .4mg Take 1 Un [facility] 0.4 mg 24 3-20 capsule by ity of hr capsule 00:00: mouth [place] 00 every Medical morning. Branch oxybutynin 3-0 Yes [id number] 5mg Take 1 [facility] XL 5 mg 24 3-20 tablet by ity of hr tablet 00:00: mouth in [facility] 00 the Medical morning. Branch metoprolol 3-0 Yes [id number] 25mg Take 1 U nivers succinate 3-20 tablet by ity o f XL 25 mg 24 00:00: mouth in [place] hr tablet 00 the Medical morning. Branch hydrALAZINE 2022-0 Yes [id number] 50mg Take 1 [facility] 50 mg 3-20 tablet by ity of tablet 00:00: mouth in [place] 00 the Medical morning Branch and 1 tablet in the evening. clopidogreL 3-0 Yes [id number] 75mg Take 1 [facility] 75 mg 3-20 tablet by ity of tablet 00:00: mouth in [place] 00 the Medical morning. Branch tamsulosin 3-0 Yes [id number] .4mg Take 1 Un [facility] 0.4 mg 24 3-20 capsule by ity of hr capsule 00:00: mouth [place] 00 every Medical morning. Branch oxybutynin 3-0 Yes [id number] 5mg Take 1 [facility] XL 5 mg 24 3-20 tablet by [facility]y of hr tablet 00:00: mouth [place] 00 the Medical morning. Branch metoprolol 3-0 Yes [id number] 25mg Take 1 U nivers succinate 3-20 tablet by ity o f XL 25 mg 24 00:00: mouth in [place] hr tablet 00 the Medical morning. Branch hydrALAZINE 3-0 Yes [id number] 50mg Take 1 [facility] 50 mg 3-20 tablet by ity of tablet 00:00: mouth in [place] 00 the Medical morning Branch and 1 tablet in the evening. clopidogreL 3-0 Yes [id number] 75mg Take 1 [facility] 75 mg 3-20 tablet by ity of tablet 00:00: mouth in [place] 00 the Medical morning. Branch tamsulosin 3-0 Yes [id number] .4mg Take 1 Un [facility] 0.4 mg 24 3-20 capsule by ity of hr capsule 00:00: mouth [place] [address] every Medical morning. Branch oxybutynin 3-0 Yes [id number] 5mg Take 1 [facility] XL 5 mg 24 3-20 tablet by ity of hr tablet 00:00: mouth in [facility] the Medical morning. Branch metoprolol 3-0 Yes [id number] 25mg Take 1 U nivers succinate 3-20 tablet by ity o f XL 25 mg 24 00:00: mouth [place] tablet 00 the Medical morning. Branch hydrALAZINE 2022-0 Yes [id number] 50mg Take 1 [facility] 50 mg 3-20 tablet by ity of tablet 00:00: mouth in [place] the Medical morning Branch and 1 tablet in the evening. clopidogreL 2022-0 Yes [id number] 75mg Take 1 [facility] 75 mg 3-20 tablet by ity of tablet 00:00: mouth in [place] the Medical morning. Branch metoprolol 3-0 Yes [id number] 25mg Take 1 U nivers succinate 3-20 tablet by ity o f XL 25 mg 24 00:00: mouth in [place] hr tablet 00 the Medical morning. Branch hydrALAZINE 3-0 Yes [id number] 50mg Take 1 [facility] 50 mg 3-20 tablet by ity of tablet 00:00: mouth in [place] 00 the Medical morning Branch and 1 tablet in the evening. metoprolol 2023-0 Yes [id number] 25mg Take 1 U nivers succinate 3-20 tablet by ity o f XL 25 mg 24 00:00: mouth in [place] hr tablet 00 the Medical morning. Branch hydrALAZINE 3-0 Yes [id number] 50mg Take 1 [facility] 50 mg 3-20 tablet by ity of tablet 00:00: mouth in [place] 00 the Medical morning Branch and 1 tablet in the evening. metoprolol 3-0 Yes [id number] 25mg Take 1 U nivers succinate 3-20 tablet by ity o f XL 25 mg 24 00:00: mouth in [place] hr tablet 00 the Medical morning. Branch metoprolol 2022-0 Yes [id number] 25mg Take 1 U nivers succinate 3-20 tablet by ity o f XL 25 mg 24 00:00: mouth in [place] hr tablet 00 the Medical morning. Branch metoprolol 3-0 Yes [id number] 25mg Take 1 U nivers succinate 3-20 tablet by ity o f XL 25 mg 24 00:00: mouth in [place] hr tablet 00 the Medical morning. Branch metoprolol 2022-0 Yes [id number] 25mg Take 1 U nivers succinate 3-20 tablet by ity o f XL 25 mg 24 00:00: mouth in [place] hr tablet 00 the Medical morning. Branch metoprolol 2022-0 Yes [id number] 25mg Take 1 U nivers succinate 3-20 tablet by ity o f XL 25 mg 24 00:00: mouth in [place] hr tablet 00 the Medical morning. Branch metoprolol 2022-0 Yes [id number] 25mg Take 1 U nivers succinate 3-20 tablet by ity o f XL 25 mg 24 00:00: mouth in [place] hr tablet 00 the Medical morning. Branch metoprolol 2022-0 Yes [id number] 25mg Take 1 U nivers succinate 3-20 tablet by ity o f XL 25 mg 24 00:00: mouth in [place] hr tablet 00 the Medical morning. Branch metoprolol 3-0 Yes [id number] 25mg Take 1 U nivers succinate 3-20 tablet by ity o f XL 25 mg 24 00:00: mouth in [place] hr tablet 00 the Medical morning. Branch metoprolol 3-0 Yes [id number] 25mg Take 1 U nivers succinate 3-20 tablet by ity o f XL 25 mg 24 00:00: mouth in [place] hr tablet 00 the Medical morning. Branch metoprolol 3-0 Yes [id number] 25mg Take 1 U nivers succinate 3-20 tablet by ity o f XL 25 mg 24 00:00: mouth in [place] hr tablet 00 the Medical morning. Branch metoprolol 2023-0 Yes [id number] 25mg Take 1 U nivers succinate 3-20 tablet by ity o f XL 25 mg 24 00:00: mouth in [place] hr tablet 00 the Medical morning. Branch metoprolol 2022-0 Yes [id number] 25mg Take 1 U nivers succinate 3-20 tablet by ity o f XL 25 mg 24 00:00: mouth in [place] hr tablet 00 the Medical morning. Branch metoprolol 2022-0 Yes [id number] 25mg Take 1 U nivers succinate 3-20 tablet by ity o f XL 25 mg 24 00:00: mouth in [place] hr tablet 00 the Medical morning. Branch metoprolol 2022-0 Yes [id number] 25mg Take 1 U nivers succinate 3-20 tablet by ity o f XL 25 mg 24 00:00: mouth in [place] hr tablet 00 the Medical morning. Branch metoprolol 2022-0 Yes [id number] 25mg Take 1 U nivers succinate 3-20 tablet by ity o f XL 25 mg 24 00:00: mouth in [place] hr tablet 00 the Medical morning. Branch metoprolol 2022-0 Yes [id number] 25mg Take 1 U nivers succinate 3-20 tablet by ity o f XL 25 mg 24 00:00: mouth in [place] hr tablet 00 the Medical morning. Branch metoprolol 2022-0 Yes [id number] 25mg Take 1 U nivers succinate 3-20 tablet by ity o f XL 25 mg 24 00:00: mouth in [place] hr tablet 00 the Medical morning. Branch metoprolol 3-0 Yes [id number] 25mg Take 1 U nivers succinate 3-20 tablet by ity o f XL 25 mg 24 00:00: mouth in [place] hr tablet 00 the Medical morning. Branch metoprolol 3-0 Yes [id number] 25mg Take 1 U nivers succinate 3-20 tablet by ity o f XL 25 mg 24 00:00: mouth in [place] hr tablet 00 the Medical morning. Branch metoprolol 3-0 Yes [id number] 25mg Take 1 U nivers succinate 3-20 tablet by ity o f XL 25 mg 24 00:00: mouth in [place] hr tablet 00 the Medical morning. Branch metoprolol 3-0 Yes [id number] 25mg Take 1 U nivers succinate 3-20 tablet by ity o f XL 25 mg 24 00:00: mouth in [place] hr tablet 00 the Medical morning. Branch metoprolol 2022-0 Yes [id number] 25mg Take 1 U nivers succinate 3-20 tablet by ity o f XL 25 mg 24 00:00: mouth in [place] hr tablet 00 the Medical morning. Branch hydrALAZINE 2022-0 3- No [id number] 50mg Take 1 [facility] 50 mg 3-20 -22 tablet by ity of tablet 00:00: 00:00 mouth in [place] 00 :00 the Medical morning Branch and 1 tablet in the evening. tamsulosin 2022-0 2022- No [id number] .4mg Take 1 U nivers 0.4 mg 24 3-20 -21 capsule by ity of hr capsule 00:00: 00:00 mouth [place] 00 :00 every Medical morning. Branch oxybutynin 2022-2022- No [id number] 5mg Take 1 [facility] XL 5 mg 24 3-20 -21 tablet by ity of hr tablet 00:00: 00:00 mouth in [facility] 00 :00 the Medical morning. Branch clopidogreL 2022-0 2022- No [id number] 75mg Take 1 [facility] 75 mg 3-20 -21 tablet by ity of tablet 00:00: 00:00 mouth in [place] 00 :00 the Medical morning. Branch furosemide 2022-0 2022- No [id number] 20mg Take 1 [facility] 20 mg 3-20 05-05 tablet by ity of tablet 00:00: 00:00 mouth in [place] 00 :00 the Medical morning. Branch furosemide 2022-0 2022- No [id number] 20mg Take 1 [facility] 20 mg 3-20 05-05 tablet by ity of tablet 00:00: 00:00 mouth in [place] 00 :00 the Medical morning. Branch furosemide 2022-0 2022- No [id number] 20mg Take 1 [facility] 20 mg 3-20 05-05 tablet by ity of tablet 00:00: 00:00 mouth in [place] 00 :00 the Medical morning. Branch furosemide 2022-0 2022- No [id number] 20mg Take 1 [facility] 20 mg 3-20 05-05 tablet by ity of tablet 00:00: 00:00 mouth in [place] 00 :00 the Medical morning. [place] furosemide 2022-0 2022- No [id number] 20mg Take 1 [facility] 20 mg 3-20 05-05 tablet by ity of tablet 00:00: 00:00 mouth in [place] 00 :00 the Medical morning. [place] TAMSULOSIN 2022-0 2022- No [id number] TAKE 1 U nivers 0.4 mg 24 3-20 03-20 CAPSULE BY ity of hr capsule 00:00: 00:00 MOUTH [place] 00 :00 EVERY DAY Medical IN [facility] TAMSULOSIN 2022-0 2022- No TAKE 1 U nivers 0.4 mg 24 3-20 03-20 CAPSULE BY ity of hr capsule 00:00: 00:00 MOUTH [place] 00 :00 EVERY DAY Medical IN [facility] TAMSULOSIN 2022-0 2022- No TAKE 1 U nivers 0.4 mg 24 3-20 03-20 CAPSULE BY ity of hr capsule 00:00: 00:00 MOUTH [place] 00 :00 EVERY DAY Medical IN [facility] TAMSULOSIN 2022-0 2022- No TAKE 1 U nivers 0.4 mg 24 3-20 03-20 CAPSULE BY ity of hr capsule 00:00: 00:00 MOUTH [place] 00 :00 EVERY DAY Medical IN THE [facility] metoprolol 2022-0 Yes [id number] 25mg Take 1 U nivers succinate 3-14 tablet by ity o f XL 25 mg 24 00:00: mouth in [place] hr tablet 00 the Medical morning. [place] metoprolol 2022-0 Yes [id number] 25mg Take 1 U nivers succinate 3-14 tablet by ity o f XL 25 mg 24 00:00: mouth in [place] hr tablet 00 the Medical morning. [place] metoprolol 2022-0 Yes [id number] 25mg Take 1 U nivers succinate 3-14 tablet by ity o f XL 25 mg 24 00:00: mouth in [place] hr tablet 00 the Medical morning. Branch metoprolol 2022-0 Yes [id number] 25mg Take 1 U nivers succinate 3-14 tablet by ity o f XL 25 mg 24 00:00: mouth in [place] hr tablet 00 the Medical morning. Branch metoprolol 2022-0 Yes [id number] 25mg Take 1 U nivers succinate 3-14 tablet by ity o f XL 25 mg 24 00:00: mouth in [place] hr tablet 00 the Medical morning. Branch metoprolol 2022-0 Yes [id number] 25mg Take 1 U nivers succinate 3-14 tablet by ity o f XL 25 mg 24 00:00: mouth in [place] hr tablet 00 the Medical morning. Branch metoprolol 2022-0 Yes [id number] 25mg Take 1 U nivers succinate 3-14 tablet by ity o f XL 25 mg 24 00:00: mouth in [place] hr tablet 00 the Medical morning. Branch metoprolol 2022-0 Yes [id number] 25mg Take 1 U nivers succinate 3-14 tablet by ity o f XL 25 mg 24 00:00: mouth in [place] hr tablet 00 the Medical morning. Branch metoprolol 2022-0 Yes [id number] 25mg Take 1 U nivers succinate 3-14 tablet by ity o f XL 25 mg 24 00:00: mouth in [place] hr tablet 00 the Medical morning. Branch metoprolol 2022-0 Yes [id number] 25mg Take 1 U nivers succinate 3-14 tablet by ity o f XL 25 mg 24 00:00: mouth in [place] hr tablet 00 the Medical morning. Branch metoprolol 2022-0 Yes [id number] 25mg Take 1 U nivers succinate 3-14 tablet by ity o f XL 25 mg 24 00:00: mouth in [place] hr tablet 00 the Medical morning. Branch metoprolol 2022-0 Yes [id number] 25mg Take 1 U nivers succinate 3-14 tablet by ity o f XL 25 mg 24 00:00: mouth in [place] hr tablet 00 the Medical morning. Branch metoprolol 2022-0 3- No [id number] 25mg Take 1 [facility] succinate 3-14 03-20 tablet by ity of XL 25 mg 24 00:00: 00:00 mouth in [place] hr tablet 00 :00 the Medical morning. Branch metoprolol 3-0 3- No [id number] 25mg Take 1 [facility] succinate 3-14 03-20 tablet by ity of XL 25 mg 24 00:00: 00:00 mouth in [place] hr tablet 00 :00 the Medical morning. Branch metoprolol 2022-0 2023- No [id number] 25mg Take 1 [facility] succinate 3-14 03-20 tablet by ity of XL 25 mg 24 00:00: 00:00 mouth in [place] hr tablet 00 :00 the Medical morning. Branch metoprolol 2022-0 3- No [id number] 25mg Take 1 [facility] succinate 3-14 03-20 [...] 00 TWICE A Medical DAY Branch hydrALAZINE 3-0 Yes TAKE 1 [facility] ers 50 mg 3-02 TABLET BY ity of tablet 00:00: MOUTH [place] 00 TWICE A Medical DAY Branch hydrALAZINE 3-0 Yes TAKE 1 [facility] ers 50 mg 3-02 TABLET BY ity of tablet 00:00: MOUTH [place] 00 TWICE A Medical DAY Branch hydrALAZINE 3-0 Yes TAKE 1 [facility] ers 50 mg 3-02 TABLET BY ity of tablet 00:00: MOUTH [place] 00 TWICE A Medical DAY Branch hydrALAZINE 3-0 Yes TAKE 1 [facility] ers 50 mg 3-02 TABLET BY ity of tablet 00:00: MOUTH [place] 00 TWICE A Medical DAY Branch hydrALAZINE 3-0 Yes TAKE 1 [facility] ers 50 mg 3-02 TABLET BY ity of tablet 00:00: MOUTH [place] 00 TWICE A Medical DAY Branch hydrALAZINE 3-0 Yes TAKE 1 [facility] ers 50 mg 3-02 TABLET BY ity of tablet 00:00: MOUTH [place] 00 TWICE A Medical DAY Branch hydrALAZINE 3-0 Yes TAKE 1 [facility] ers 50 mg [...] :00 TWICE A Medical DAY Branch TAMSULOSIN 2022-0 Yes TAKE 1 Un [facility]i 0.4 mg 24 2-20 CAPSULE BY ity of hr capsule 00:00: MOUTH [place] 00 EVERY DAY Medical IN THE Branch MORNING TAMSULOSIN 2022-0 Yes TAKE 1 Un [facility]i 0.4 mg 24 2-20 CAPSULE BY ity of hr capsule 00:00: MOUTH [place] 00 EVERY DAY Medical IN THE Branch MORNING TAMSULOSIN 2022-0 Yes TAKE 1 Un [facility] 0.4 mg 24 2-20 CAPSULE BY ity of hr capsule 00:00: MOUTH [place] 00 EVERY DAY Medical IN THE Branch MORNING TAMSULOSIN 2022-0 Yes TAKE 1 Un [facility] 0.4 mg 24 2-20 CAPSULE BY ity of hr capsule 00:00: MOUTH [place] 00 EVERY DAY Medical IN THE [place] MORNING TAMSULOSIN 3-0 Yes TAKE 1 Un [facility]i 0.4 mg 24 2-20 CAPSULE BY ity of hr capsule 00:00: MOUTH [place] 00 EVERY DAY Medical IN THE [place] MORNING TAMSULOSIN 3-0 Yes TAKE 1 Un [facility] 0.4 mg 24 2-20 CAPSULE BY ity of hr capsule 00:00: MOUTH [place] 00 EVERY DAY Medical IN THE [place] MORNING TAMSULOSIN 3-0 Yes TAKE 1 Un [facility] 0.4 mg 24 2-20 CAPSULE BY ity of hr capsule 00:00: MOUTH [place] 00 EVERY DAY Medical IN THE [place] MORNING TAMSULOSIN 3-0 Yes TAKE 1 Un [facility] 0.4 mg 24 2-20 CAPSULE BY ity of hr capsule 00:00: MOUTH [place] 00 EVERY DAY Medical IN THE [place] MORNING TAMSULOSIN 3-0 Yes TAKE 1 Un [facility] 0.4 mg 24 2-20 CAPSULE BY ity of hr capsule 00:00: MOUTH [place] 00 EVERY DAY Medical IN THE [place] MORNING TAMSULOSIN 3-0 Yes TAKE 1 Un [facility] 0.4 mg 24 2-20 CAPSULE BY ity of hr capsule 00:00: MOUTH [place] 00 EVERY DAY Medical IN THE [place] MORNING TAMSULOSIN 3-0 Yes TAKE 1 Un [facility] 0.4 mg 24 2-20 CAPSULE BY ity of hr capsule 00:00: MOUTH [place] 00 EVERY DAY Medical IN THE [place] MORNING TAMSULOSIN 3-0 Yes TAKE 1 Un [facility] 0.4 mg 24 2-20 CAPSULE BY ity of hr capsule 00:00: MOUTH [place] 00 EVERY DAY Medical IN THE [place] MORNING TAMSULOSIN 3-0 Yes TAKE 1 Un [facility] 0.4 mg 24 2-20 CAPSULE BY ity of hr capsule 00:00: MOUTH [place] 00 EVERY DAY Medical IN THE [place] MORNING TAMSULOSIN 3-0 Yes TAKE 1 Un [facility] 0.4 mg 24 2-20 CAPSULE BY ity of hr capsule 00:00: MOUTH [place] 00 EVERY DAY Medical IN THE [place] MORNING TAMSULOSIN 3-0 Yes TAKE 1 Un bhum[facility] 0.4 mg 24 2-20 CAPSULE BY ity of hr capsule 00:00: MOUTH [place] 00 EVERY DAY Medical IN THE [place] MORNING TAMSULOSIN 2022-0 Yes TAKE 1 [facility] 0.4 mg 24 2-20 CAPSULE BY ity of hr capsule 00:00: MOUTH [place] 00 EVERY DAY Medical IN THE [place] MORNING TAMSULOSIN 2022-0 2023- No TAKE 1 U nivers 0.4 mg 24 2-20 03-20 CAPSULE BY ity of hr capsule 00:00: 00:00 MOUTH [place] 00 :00 EVERY DAY Medical IN THE Branch MORNING FUROSEMIDE 3-0 Yes [id number] TAKE 1 [facility] 20 mg 2-01 TABLET BY ity of tablet 00:00: MOUTH [place] 00 EVERY DAY Medical Branch FUROSEMIDE 2023-0 Yes [id number] TAKE 1 [facility] 20 mg 2-01 TABLET BY ity of tablet 00:00: MOUTH [place] 00 EVERY DAY Medical Branch FUROSEMIDE 2023-0 Yes [id number] TAKE 1 [facility] 20 mg 2-01 TABLET BY ity of tablet 00:00: MOUTH [place] 00 EVERY DAY Medical Branch FUROSEMIDE 2023-0 Yes [id number] TAKE 1 [facility] 20 mg 2-01 TABLET BY ity of tablet 00:00: MOUTH [place] 00 EVERY DAY Medical Branch FUROSEMIDE 2023-0 Yes [id number] TAKE 1 [facility] 20 mg 2-01 TABLET BY ity of tablet 00:00: MOUTH [place] 00 EVERY DAY Medical Branch FUROSEMIDE 2023-0 Yes [id number] TAKE 1 [facility] 20 mg 2-01 TABLET BY ity of tablet 00:00: MOUTH [place] 00 EVERY DAY Medical Branch FUROSEMIDE 2023-0 Yes [id number] TAKE 1 [facility] 20 mg 2-01 TABLET BY ity of tablet 00:00: MOUTH [place] 00 EVERY DAY Medical Branch FUROSEMIDE 2023-0 Yes [id number] TAKE 1 [facility] 20 mg 2-01 TABLET BY ity of tablet 00:00: MOUTH [place] 00 EVERY DAY Medical Branch FUROSEMIDE 2023-0 Yes [id number] TAKE 1 [facility] 20 mg 2-01 TABLET BY ity of tablet 00:00: MOUTH [place] 00 EVERY DAY Medical Branch FUROSEMIDE 2023-0 Yes [id number] TAKE 1 [facility] 20 mg 2-01 TABLET BY ity of tablet 00:00: MOUTH [place] 00 EVERY DAY Medical Branch FUROSEMIDE 2023-0 Yes [id number] TAKE 1 [facility] 20 mg 2-01 TABLET BY ity of tablet 00:00: MOUTH [place] 00 EVERY DAY Medical Branch FUROSEMIDE 2023-0 Yes [id number] TAKE 1 [facility] 20 mg 2-01 TABLET BY ity of tablet 00:00: MOUTH [place] 00 EVERY DAY Medical Branch FUROSEMIDE 2023-0 Yes [id number] TAKE 1 [facility] 20 mg 2-01 TABLET BY ity of tablet 00:00: MOUTH [place] 00 EVERY DAY Medical Branch FUROSEMIDE 2023-0 Yes [id number] TAKE 1 [facility] 20 mg 2-01 TABLET BY ity of tablet 00:00: MOUTH [place] 00 EVERY DAY Medical Branch FUROSEMIDE 2023-0 Yes [id number] TAKE 1 [facility] 20 mg 2-01 TABLET BY ity of tablet 00:00: MOUTH [place] 00 EVERY DAY Medical Branch FUROSEMIDE 2023-0 Yes [id number] TAKE 1 [facility] 20 mg 2-01 TABLET BY ity of tablet 00:00: MOUTH [place] 00 EVERY DAY Medical Branch FUROSEMIDE 2023-0 Yes [id number] TAKE 1 [facility] 20 mg 2-01 TABLET BY ity of tablet 00:00: MOUTH [place] 00 EVERY DAY Medical Branch FUROSEMIDE 2023-0 Yes [id number] TAKE 1 [facility] 20 mg 2-01 TABLET BY ity of tablet 00:00: MOUTH [place] 00 EVERY DAY Medical Branch FUROSEMIDE 2023-0 Yes [id number] TAKE 1 [facility] 20 mg 2-01 TABLET BY ity of tablet 00:00: MOUTH [place] 00 EVERY DAY Medical Branch FUROSEMIDE 2023-0 Yes [id number] TAKE 1 [facility] 20 mg 2-01 TABLET BY ity of tablet 00:00: MOUTH [place] 00 EVERY DAY Medical Branch FUROSEMIDE 2023-0 Yes [id number] TAKE 1 [facility] 20 mg 2-01 TABLET BY ity of tablet 00:00: MOUTH [place] 00 EVERY DAY Medical Branch FUROSEMIDE 2023-0 2023- No [id number] TAKE 1 [facility] 20 mg 2-01 03-20 TABLET BY ity of tablet 00:00: 00:00 MOUTH [place] 00 :00 EVERY DAY Medical Branch FUROSEMIDE 2023-0 2023- No [id number] TAKE 1 [facility] 20 mg 2-01 03-20 TABLET BY ity of tablet 00:00: 00:00 MOUTH [place] 00 :00 EVERY DAY Medical Branch FUROSEMIDE 2023-0 2023- No [id number] TAKE 1 [facility] 20 mg 2-01 03-20 TABLET BY ity of tablet 00:00: 00:00 MOUTH [place] 00 :00 EVERY DAY Medical Branch FUROSEMIDE 2023-0 2023- No [id number] TAKE 1 [facility] 20 mg 2-01 03-20 TABLET BY ity of tablet 00:00: 00:00 MOUTH [place] 00 :00 EVERY DAY Medical Branch TAMSULOSIN 2023-0 Yes TAKE 1 Un [...] BY ity of hr capsule 00:00: MOUTH [place] 00 EVERY Medical MORNING Branch TAMSULOSIN 3-0 Yes TAKE 1 Un [facility] 0.4 mg 24 1-23 CAPSULE BY ity of hr capsule 00:00: MOUTH [place] 00 EVERY Medical MORNING Branch TAMSULOSIN 3-0 Yes TAKE 1 [facility] 0.4 mg 24 1-23 CAPSULE BY ity of hr capsule 00:00: MOUTH [place] 00 EVERY Medical MORNING Branch TAMSULOSIN 2023-0 2023- No TAKE 1 [facility] nivers 0.4 mg 24 1-23 02-20 CAPSULE BY ity of hr capsule 00:00: 00:00 MOUTH [place] 00 :00 EVERY Medical MORNING Branch clopidogreL 2023-0 Yes [id number] 75mg Take 1 [facility] 75 mg 1-17 tablet by ity of tablet 00:00: mouth in [place] 00 the Medical morning. Branch clopidogreL 2023-0 Yes [id number] 75mg Take 1 [facility] 75 mg 1-17 tablet by ity of tablet 00:00: mouth in [place] 00 the Medical morning. Branch clopidogreL 2023-0 Yes [id number] 75mg Take 1 [facility] 75 mg 1-17 tablet by ity of tablet 00:00: mouth in [place] 00 the Medical morning. Branch clopidogreL 2023-0 Yes [id number] 75mg Take 1 [facility] 75 mg 1-17 tablet by ity of tablet 00:00: mouth in [place] 00 the Medical morning. Branch clopidogreL 2023-0 Yes [id number] 75mg Take 1 [facility] 75 mg 1-17 tablet by ity of tablet 00:00: mouth in [place] 00 the Medical morning. Branch clopidogreL 2023-0 Yes [id number] 75mg Take 1 [facility] 75 mg 1-17 tablet by ity of tablet 00:00: mouth in [place] 00 the Medical morning. Branch clopidogreL 2023-0 Yes [id number] 75mg Take 1 [facility] 75 mg 1-17 tablet by ity of tablet 00:00: mouth in [place] 00 the Medical morning. Branch clopidogreL 2023-0 Yes [id number] 75mg Take 1 [facility] 75 mg 1-17 tablet by ity of tablet 00:00: mouth in [place] 00 the Medical morning. Branch clopidogreL 2023-0 Yes [id number] 75mg Take 1 [facility] 75 mg 1-17 tablet by ity of tablet 00:00: mouth in [place] 00 the Medical morning. Branch clopidogreL 2023-0 Yes [id number] 75mg Take 1 [facility] 75 mg 1-17 tablet by ity of tablet 00:00: mouth in [place] 00 the Medical morning. Branch clopidogreL 2023-0 Yes [id number] 75mg Take 1 [facility] 75 mg 1-17 tablet by ity of tablet 00:00: mouth in [place] the Medical morning. Branch clopidogreL 2023-0 Yes [id number] 75mg Take 1 [facility] 75 mg 1-17 tablet by ity of tablet 00:00: mouth in [place] the Medical morning. Branch clopidogreL 2023-0 Yes [id number] 75mg Take 1 [facility] 75 mg 1-17 tablet by ity of tablet 00:00: mouth in [place] the Medical morning. Branch clopidogreL 2023-0 Yes [id number] 75mg Take 1 [facility] 75 mg 1-17 tablet by ity of tablet 00:00: mouth in [place] the Medical morning. Branch clopidogreL 2023-0 Yes [id number] 75mg Take 1 [facility] 75 mg 1-17 tablet by ity of tablet 00:00: mouth in [place] 00 the Medical morning. Branch clopidogreL 2023-0 Yes [id number] 75mg Take 1 [facility] 75 mg 1-17 tablet by ity of tablet 00:00: mouth in [place] 00 the Medical morning. Branch clopidogreL 2023-0 Yes [id number] 75mg Take 1 [facility] 75 mg 1-17 tablet by ity of tablet 00:00: mouth in [place] 00 the Medical morning. Branch clopidogreL 2023-0 Yes [id number] 75mg Take 1 [facility] 75 mg 1-17 tablet by ity of tablet 00:00: mouth in [place] 00 the Medical morning. Branch clopidogreL 2023-0 Yes [id number] 75mg Take 1 [facility] 75 mg 1-17 tablet by ity of tablet 00:00: mouth in [place] 00 the Medical morning. Branch clopidogreL 2022-0 Yes [id number] 75mg Take 1 [facility] 75 mg 1-17 tablet by ity of tablet 00:00: mouth in [place] 00 the Medical morning. Branch clopidogreL 2022-0 Yes [id number] 75mg Take 1 [facility] 75 mg 1-17 tablet by ity of tablet 00:00: mouth in [place] 00 the Medical morning. Branch clopidogreL 2022-0 Yes [id number] 75mg Take 1 [facility] 75 mg 1-17 tablet by ity of tablet 00:00: mouth in [place] 00 the Medical morning. Branch clopidogreL 2022-0 Yes [id number] 75mg Take 1 [facility] 75 mg 1-17 tablet by ity of tablet 00:00: mouth in [place] 00 the Medical morning. Branch clopidogreL 2022-0 2022- No [id number] 75mg Take 1 [facility] 75 mg 1-17 03-20 tablet by ity of tablet 00:00: 00:00 mouth in [place] 00 :00 the Medical morning. Branch clopidogreL 2022-0 2022- No [id number] 75mg Take 1 [facility] 75 mg 1-17 03-20 tablet by ity of tablet 00:00: 00:00 mouth in [place] 00 :00 the Medical morning. Branch clopidogreL 2022-0 2022- No [id number] 75mg Take 1 [facility] 75 mg 1-17 03-20 tablet by ity of tablet 00:00: 00:00 mouth in [place] 00 :00 the Medical morning. Branch clopidogreL 2022-0 2022- No [id number] 75mg Take 1 [facility] 75 mg 1-17 03-20 tablet by ity of tablet 00:00: 00:00 mouth in [place] 00 :00 the Medical morning. Branch KLOR-CON 10 2021-02 Yes [id number] TAKE 1 [facility] 10 mEq CR 2-28 TABLET BY ity o f tablet 00:00: MOUTH [place] 00 EVERY DAY Medical Branch KLOR-CON 10 2021-02 Yes [id number] TAKE 1 [facility] 10 mEq CR 2-28 TABLET BY ity o f tablet 00:00: MOUTH [place] 00 EVERY DAY Medical Branch KLOR-CON 10 2021-02 Yes [id number] TAKE 1 [facility] 10 mEq CR 2-28 TABLET BY ity o f tablet 00:00: MOUTH [place] 00 EVERY DAY [facility] KLMS-CON 10 2021-02 Yes [id number] TAKE 1 [facility] 10 mEq CR 2-28 TABLET BY ity o f tablet 00:00: MOUTH [place] 00 EVERY DAY [facility] 10 2021-02 Yes [id number] TAKE 1 [facility] 10 mEq CR 2-28 TABLET BY ity o f tablet 00:00: MOUTH [place] EVERY DAY [facility] 10 2021-02 Yes [id number] TAKE 1 [facility] 10 mEq CR 2-28 TABLET BY ity o f tablet 00:00: MOUTH [place] 00 EVERY DAY [facility] 10 2021-02 Yes [id number] TAKE 1 [facility] 10 mEq CR 2-28 TABLET BY ity o f tablet 00:00: MOUTH [place] 00 DAY [facility] 10 2021-02 Yes [id number] TAKE 1 [facility] 10 mEq CR 2-28 TABLET BY ity o f tablet 00:00: MOUTH [place] DAY [facility] 10 2021-02 Yes [id number] TAKE 1 [facility] 10 mEq CR 2-28 TABLET BY ity o f tablet 00:00: MOUTH [place] 00 DAY [facility] 10 2021-02 Yes [id number] TAKE 1 [facility] 10 mEq CR 2-28 TABLET BY ity o f tablet 00:00: MOUTH [place] 00 DAY [facility] 10 2021-02 Yes [id number] TAKE 1 [facility] 10 mEq CR 2-28 TABLET BY ity o f tablet 00:00: MOUTH [place] 00 DAY [facility] 10 2021-02 Yes [id number] TAKE 1 [facility] 10 mEq CR 2-28 TABLET BY ity o f tablet 00:00: MOUTH [place] 00 EVERY DAY [facility] 10 2021-02 Yes [id number] TAKE 1 [facility] 10 mEq CR 2-28 TABLET BY ity o f tablet 00:00: MOUTH [place] 00 DAY [facility] 10 2021-02 Yes [id number] TAKE 1 [facility] 10 mEq CR 2-28 TABLET BY ity o f tablet 00:00: MOUTH [place] 00 EVERY DAY [facility] 10 2021-02 Yes [id number] TAKE 1 [facility] 10 mEq CR 2-28 TABLET BY ity o f tablet 00:00: MOUTH [place] 00 EVERY DAY [facility] 10 2021-02 Yes [id number] TAKE 1 [facility] 10 mEq CR 2-28 TABLET BY ity o f tablet 00:00: MOUTH [place] [address] [facility] 10 2021-02 Yes [id number] TAKE 1 [facility] 10 mEq CR 2-28 TABLET BY ity o f tablet 00:00: MOUTH [place] 00 DAY [facility] 10 2021-02 Yes [id number] TAKE 1 [facility] 10 mEq CR 2-28 TABLET BY ity o f tablet 00:00: MOUTH [place] 00 DAY [facility] 10 2021-02 Yes [id number] TAKE 1 [facility] 10 mEq CR 2-28 TABLET BY ity o f tablet 00:00: MOUTH [place] 00 DAY [facility] 10 2021-02 Yes [id number] TAKE 1 [facility] 10 mEq CR 2-28 TABLET BY ity o f tablet 00:00: MOUTH [place] 00 DAY [facility] 10 2021-02 Yes [id number] TAKE 1 [facility] 10 mEq CR 2-28 TABLET BY ity o f tablet 00:00: MOUTH [place] 00 DAY [facility] 10 2021-02 Yes [id number] TAKE 1 [facility] 10 mEq CR 2-28 TABLET BY ity o f tablet 00:00: MOUTH [place] 00 DAY [facility] 10 2021-02 Yes [id number] TAKE 1 [facility] 10 mEq CR 2-28 TABLET BY ity o f tablet 00:00: MOUTH [place] 00 DAY [facility] 10 2021-02 Yes [id number] TAKE 1 [facility] 10 mEq CR 2-28 TABLET BY ity o f tablet 00:00: MOUTH [place] [address] [facility] 10 2021-02 Yes [id number] TAKE 1 [facility] 10 mEq CR 2-28 TABLET BY ity o f tablet 00:00: MOUTH [place] 00 DAY [facility] 10 2021-02 Yes [id number] TAKE 1 [facility] 10 mEq CR 2-28 TABLET BY ity o f tablet 00:00: MOUTH [place] 00 DAY [facility] 10 2021-02 Yes [id number] TAKE 1 [facility] 10 mEq CR 2-28 TABLET BY ity o f tablet 00:00: MOUTH [place] 00 DAY [facility] 10 2021-02 Yes [id number] TAKE 1 [facility] 10 mEq CR 2-28 TABLET BY ity o f tablet 00:00: MOUTH [place] 00 EVERY DAY Medical Branch KLMS-CON 10 2021-02 Yes [id number] TAKE 1 [facility] 10 mEq CR 2-28 TABLET BY ity o f tablet 00:00: MOUTH [place] 00 EVERY DAY Medical Branch KLMS-CON 10 2021-02 Yes [id number] TAKE 1 [facility] 10 mEq CR 2-28 TABLET BY ity o f tablet 00:00: MOUTH [place] 00 EVERY DAY Medical Branch KLMS-CON 10 2021-02 Yes [id number] TAKE 1 [facility] 10 mEq CR 2-28 TABLET BY ity o f tablet 00:00: MOUTH [place] 00 EVERY DAY Medical [place] [facility] 10 2021-02 Yes [id number] TAKE 1 [facility] 10 mEq CR 2-28 TABLET BY ity o f tablet 00:00: MOUTH [place] 00 DAY [facility] Branch [facility] 10 2021-02 Yes [id number] TAKE 1 [facility] 10 mEq CR 2-28 TABLET BY ity o f tablet 00:00: MOUTH [place] 00 DAY [facility] Branch [facility] 10 2021-02 Yes [id number] TAKE 1 [facility] 10 mEq CR 2-28 TABLET BY ity o f tablet 00:00: MOUTH [place] 00 DAY [facility] Branch [facility] 10 2021-02 Yes [id number] TAKE 1 [facility] 10 mEq CR 2-28 TABLET BY ity o f tablet 00:00: MOUTH [place] 00 DAY [facility] 10 2021-02 Yes [id number] TAKE 1 [facility] 10 mEq CR 2-28 TABLET BY ity o f tablet 00:00: MOUTH [place] 00 DAY Medical Branch KLMS-CON 10 2021-02 Yes [id number] TAKE 1 [facility] 10 mEq CR 2-28 TABLET BY ity o f tablet 00:00: MOUTH [place] 00 EVERY DAY Medical [place] KLMS-CON 10 2021-02 Yes [id number] TAKE 1 [facility] 10 mEq CR 2-28 TABLET BY ity o f tablet 00:00: MOUTH [place] 00 EVERY DAY [facility] 10 2021-02 Yes [id number] TAKE 1 [facility] 10 mEq CR 2-28 TABLET BY ity o f tablet 00:00: MOUTH [place] 00 EVERY DAY [facility] 10 2021-02 Yes [id number] TAKE 1 [facility] 10 mEq CR 2-28 TABLET BY ity o f tablet 00:00: MOUTH [place] 00 EVERY DAY [facility] 10 2021-02 Yes [id number] TAKE 1 [facility] 10 mEq CR 2-28 TABLET BY ity o f tablet 00:00: MOUTH [place] 00 DAY [facility] 10 2021-02 Yes [id number] TAKE 1 [facility] 10 mEq CR 2-28 TABLET BY ity o f tablet 00:00: MOUTH [place] 00 DAY [facility] 10 2021-02 Yes [id number] TAKE 1 [facility] 10 mEq CR 2-28 TABLET BY ity o f tablet 00:00: MOUTH [place] 00 DAY [facility] 10 2021-02 Yes [id number] TAKE 1 [facility] 10 mEq CR 2-28 TABLET BY ity o f tablet 00:00: MOUTH [place] 00 DAY [facility] 10 2021-02 Yes [id number] TAKE 1 [facility] 10 mEq CR 2-28 TABLET BY ity o f tablet 00:00: MOUTH [place] 00 DAY [facility] 10 2021-02 Yes [id number] TAKE 1 [facility] 10 mEq CR 2-28 TABLET BY ity o f tablet 00:00: MOUTH [place] 00 DAY [facility] 10 2021-02 Yes [id number] TAKE 1 [facility] 10 mEq CR 2-28 TABLET BY ity o f tablet 00:00: MOUTH [place] 00 DAY [facility] 10 2021-02 Yes [id number] TAKE 1 [facility] 10 mEq CR 2-28 TABLET BY ity o f tablet 00:00: MOUTH [place] 00 DAY [facility] 10 2021-02 Yes [id number] TAKE 1 [facility] 10 mEq CR 2-28 TABLET BY ity o f tablet 00:00: MOUTH [place] 00 DAY [facility] 10 2021-02 Yes [id number] TAKE 1 [facility] 10 mEq CR 2-28 TABLET BY ity o f tablet 00:00: MOUTH [place] 00 DAY [facility] 10 2021-02 Yes [id number] TAKE 1 [facility] 10 mEq CR 2-28 TABLET BY ity o f tablet 00:00: MOUTH [place] 00 EVERY DAY [facility] 10 2021-02 Yes [id number] TAKE 1 [facility] 10 mEq CR 2-28 TABLET BY ity o f tablet 00:00: MOUTH [place] 00 EVERY DAY Medical Branch [facility] 10 2021-02 Yes [id number] TAKE 1 [facility] 10 mEq CR 2-28 TABLET BY ity o f tablet 00:00: MOUTH [place] 00 DAY [facility] 10 2021-02 Yes [id number] TAKE 1 [facility] 10 mEq CR 2-28 TABLET BY ity o f tablet 00:00: MOUTH [place] DAY [facility] 10 2021-02 Yes [id number] TAKE 1 [facility] 10 mEq CR 2-28 TABLET BY ity o f tablet 00:00: MOUTH [place] 00 EVERY DAY [facility] 10 2021-02 Yes [id number] TAKE 1 [facility] 10 mEq CR 2-28 TABLET BY ity o f tablet 00:00: MOUTH [place] 00 DAY [facility] 10 2021-02 Yes [id number] TAKE 1 [facility] 10 mEq CR 2-28 TABLET BY ity o f tablet 00:00: MOUTH [place] DAY [facility] 10 2021-02 Yes [id number] TAKE 1 [facility] 10 mEq CR 2-28 TABLET BY ity o f tablet 00:00: MOUTH [place] 00 DAY [facility] 10 2021-02 Yes [id number] TAKE 1 [facility] 10 mEq CR 2-28 TABLET BY ity o f tablet 00:00: MOUTH [place] 00 DAY [facility] 10 2021-02 Yes [id number] TAKE 1 [facility] 10 mEq CR 2-28 TABLET BY ity o f tablet 00:00: MOUTH [place] 00 DAY [facility] 10 2021-02 Yes [id number] TAKE 1 [facility] 10 mEq CR 2-28 TABLET BY ity o f tablet 00:00: MOUTH [place] 00 EVERY DAY [facility] 10 2021-02 Yes [id number] TAKE 1 [facility] 10 mEq CR 2-28 TABLET BY ity o f tablet 00:00: MOUTH [place] 00 EVERY DAY Medical [facility] 10 2021-02 Yes [id number] TAKE 1 [facility] 10 mEq CR 2-28 TABLET BY ity o f tablet 00:00: MOUTH [place] 00 EVERY DAY Medical [facility] 10 2021-02 Yes [id number] TAKE 1 [facility] 10 mEq CR 2-28 TABLET BY ity o f tablet 00:00: MOUTH [place] 00 EVERY DAY Medical Branch KLMS-CON 10 2021-02 Yes [id number] TAKE 1 [facility] 10 mEq CR 2-28 TABLET BY ity o f tablet 00:00: MOUTH [place] 00 DAY [facility] 10 2021-02 Yes [id number] TAKE 1 [facility] 10 mEq CR 2-28 TABLET BY ity o f tablet 00:00: MOUTH [place] DAY Medical [facility] 10 2021-02 Yes [id number] TAKE 1 [facility] 10 mEq CR 2-28 TABLET BY ity o f tablet 00:00: MOUTH [place] 00 EVERY DAY Medical [place] KLMS-CON 10 2021-02 Yes [id number] TAKE 1 [facility] 10 mEq CR 2-28 TABLET BY ity o f tablet 00:00: MOUTH [place] 00 DAY [facility] 10 2021-02 Yes [id number] TAKE 1 [facility] 10 mEq CR 2-28 TABLET BY ity o f tablet 00:00: MOUTH [place] DAY [facility] 10 2021-02 Yes [id number] TAKE 1 [facility] 10 mEq CR 2-28 TABLET BY ity o f tablet 00:00: MOUTH [place] 00 DAY [facility] 10 2021-02 Yes [id number] TAKE 1 [facility] 10 mEq CR 2-28 TABLET BY ity o f tablet 00:00: MOUTH [place] 00 DAY [facility] 10 2021-02 Yes [id number] TAKE 1 [facility] 10 mEq CR 2-28 TABLET BY ity o f tablet 00:00: MOUTH [place] 00 DAY [facility] 10 2021-02 Yes [id number] TAKE 1 [facility] 10 mEq CR 2-28 TABLET BY ity o f tablet 00:00: MOUTH [place] 00 DAY Medical Branch KLMS-CON 10 2021-02 Yes [id number] TAKE 1 [facility] 10 mEq CR 2-28 TABLET BY ity o f tablet 00:00: MOUTH [place] 00 DAY [facility] 10 2021-02 Yes [id number] TAKE 1 [facility] 10 mEq CR 2-28 TABLET BY ity o f tablet 00:00: MOUTH [place] 00 EVERY DAY [facility] 10 2021-02 Yes [id number] TAKE 1 [facility] 10 mEq CR 2-28 TABLET BY ity o f tablet 00:00: MOUTH [place] 00 EVERY DAY [facility] 10 2021-02 Yes [id number] TAKE 1 [facility] 10 mEq CR 2-28 TABLET BY ity o f tablet 00:00: MOUTH [place] 00 DAY Medical [facility] 10 2021-02 Yes [id number] TAKE 1 [facility] 10 mEq CR 2-28 TABLET BY ity o f tablet 00:00: MOUTH [place] 00 EVERY DAY Medical [facility] 10 2021-02 Yes [id number] TAKE 1 [facility] 10 mEq CR 2-28 TABLET BY ity o f tablet 00:00: MOUTH [place] 00 EVERY DAY Medical [facility] 10 2021-02 Yes [id number] TAKE 1 [facility] 10 mEq CR 2-28 TABLET BY ity o f tablet 00:00: MOUTH [place] 00 EVERY DAY Medical [facility] 10 2021-02 Yes [id number] TAKE 1 [facility] 10 mEq CR 2-28 TABLET BY ity o f tablet 00:00: MOUTH [place] 00 EVERY DAY [facility] 10 2021-02 Yes [id number] TAKE 1 [facility] 10 mEq CR 2-28 TABLET BY ity o f tablet 00:00: MOUTH [place] 00 EVERY DAY Medical [facility] 10 2021-02 Yes [id number] TAKE 1 [facility] 10 mEq CR 2-28 TABLET BY ity o f tablet 00:00: MOUTH [place] 00 EVERY DAY [facility] 10 2021-02- No [id number] TAKE 1 [facility] 10 mEq CR 2-28 05-22 TABLET BY ity of tablet 00:00: 00:00 MOUTH [place] 00 :00 EVERY DAY Medical [facility] 10 2021-02- No [id number] TAKE 1 [facility] 10 mEq CR 2-28 05-22 TABLET BY ity of tablet 00:00: 00:00 MOUTH [place] 00 :00 EVERY DAY Medical [facility] 10 2021-02- No [id number] TAKE 1 [facility] 10 mEq CR 2-28 [...] BY ity of hr capsule 00:00: MOUTH [place] 00 EVERY Medical MORNING Branch TAMSULOSIN 2021-02- No TAKE 1 U nivers 0.4 mg 24 2-27 01-23 CAPSULE BY ity of hr capsule 00:00: 00:00 MOUTH [place] 00 :00 EVERY Medical MORNING Branch oxybutynin 2021-02- No 5mg Take 5 mg U nivers XL 5 mg 24 1-21 11-21 by mouth ity of hr tablet 10:29: 00:00 in the [place] 33 :00 morning. Medical Branch oxybutynin 2021-02- No 5mg Take 5 mg U nivers XL 5 mg 24 1-21 11-21 by mouth ity of hr tablet 10:29: 00:00 in the [place] 33 :00 morning. Medical Branch tamsulosin 2021-02 Yes .4mg Take 1 Un bhumi 0.4 mg 24 1-21 capsule by ity of hr capsule 00:00: mouth in [place] 00 the Medical morning. Branch oxybutynin 2021-02 Yes [id number] 5mg Take 1 [facility] XL 5 mg 24 1-21 tablet by [facility]y of hr tablet 00:00: mouth in [place] 00 the Medical morning. Branch tamsulosin 2021-02 Yes .4mg Take 1 [facility] 0.4 mg 24 1-21 capsule by ity of hr capsule 00:00: mouth in [place] 00 the Medical morning. Branch oxybutynin 2021-02 Yes [id number] 5mg Take 1 [facility] XL 5 mg 24 1-21 tablet by [facility]y of hr tablet 00:00: mouth [place] the Medical morning. Branch tamsulosin 2021-1 Yes [id number] .4mg Take 1 [facility] 0.4 mg 24 1-21 capsule by ity of hr capsule 00:00: mouth in [place] 00 the Medical morning. Branch oxybutynin 2021-1 Yes [id number] 5mg Take 1 [facility] XL 5 mg 24 1-21 tablet by [facility]y of hr tablet 00:00: mouth [place] the Medical morning. Branch tamsulosin 2021-1 Yes [id number] .4mg Take 1 [facility] 0.4 mg 24 1-21 capsule by ity of hr capsule 00:00: mouth in [place] 00 the Medical morning. Branch oxybutynin 2021-1 Yes [id number] 5mg Take 1 [facility] XL 5 mg 24 1-21 tablet by [facility]y of hr tablet 00:00: mouth [place] the Medical morning. Branch oxybutynin 2021-1 Yes [id number] 5mg Take 1 [facility] XL 5 mg 24 1-21 tablet by [facility]y of hr tablet 00:00: mouth [place] the Medical morning. Branch oxybutynin 2021-1 Yes [id number] 5mg Take 1 [facility] XL 5 mg 24 1-21 tablet by [facility]y of hr tablet 00:00: mouth [place] the Medical morning. Branch oxybutynin 2021-1 Yes [id number] 5mg Take 1 [facility] XL 5 mg 24 1-21 tablet by [facility]y of hr tablet 00:00: mouth [place] the Medical morning. Branch oxybutynin 2021-1 Yes [id number] 5mg Take 1 [facility] 5 mg 24 1-21 tablet by [facility] hr tablet 00:00: mouth [place] 00 the Medical morning. Branch oxybutynin 2021-1 Yes [id number] 5mg Take 1 [facility] 5 mg 24 1-21 tablet by [facility] tablet 00:00: mouth [place] 00 the Medical morning. Branch oxybutynin 2021-1 Yes [id number] 5mg Take 1 [facility] 5 mg 24 1-21 tablet by [facility] tablet 00:00: mouth [place] 00 the Medical morning. Branch oxybutynin 2021-1 Yes [id number] 5mg Take 1 [facility] 5 mg 24 1-21 tablet by [facility] hr tablet 00:00: mouth [place] 00 the Medical morning. Branch oxybutynin 2021-1 Yes [id number] 5mg Take 1 [facility] 5 mg 24 1-21 tablet by [facility] tablet 00:00: mouth [place] 00 the Medical morning. Branch oxybutynin 2021-1 Yes [id number] 5mg Take 1 [facility] 5 mg 24 1-21 tablet by [facility] hr tablet 00:00: mouth [place] 00 the Medical morning. Branch oxybutynin 2021-1 Yes [id number] 5mg Take 1 [facility] 5 mg 24 1-21 tablet by [facility] tablet 00:00: mouth [place] 00 the Medical morning. Branch oxybutynin 2021-1 Yes [id number] 5mg Take 1 [facility] 5 mg 24 1-21 tablet by [facility] tablet 00:00: mouth [place] 00 the Medical morning. Branch oxybutynin 2021-1 Yes [id number] 5mg Take 1 [facility] 5 mg 24 1-21 tablet by [facility] tablet 00:00: mouth [place] 00 the Medical morning. Branch oxybutynin 2021-1 Yes [id number] 5mg Take 1 [facility] 5 mg 24 1-21 tablet by [facility] tablet 00:00: mouth [place] 00 the Medical morning. Branch oxybutynin 2021-1 Yes [id number] 5mg Take 1 [facility] 5 mg 24 1-21 tablet by [facility] hr tablet 00:00: mouth [place] 00 the Medical morning. Branch oxybutynin 2021-1 Yes [id number] 5mg Take 1 [facility] 5 mg 24 1-21 tablet by [facility] tablet 00:00: mouth [place] 00 the Medical morning. Branch oxybutynin 2-1 Yes [id number] 5mg Take 1 [facility] 5 mg 24 1-21 tablet by [facility] hr tablet 00:00: mouth [place] 00 the Medical morning. Branch oxybutynin 2021-1 Yes [id number] 5mg Take 1 [facility] 5 mg 24 1-21 tablet by [facility] tablet 00:00: mouth [place] 00 the Medical morning. Branch oxybutynin 2021-1 Yes [id number] 5mg Take 1 [facility] 5 mg 24 1-21 tablet by [facility] hr tablet 00:00: mouth [place] 00 the Medical morning. Branch oxybutynin 2021-1 Yes [id number] 5mg Take 1 [facility] 5 mg 24 1-21 tablet by [facility] tablet 00:00: mouth [place] 00 the Medical morning. Branch oxybutynin 2021-1 Yes [id number] 5mg Take 1 [facility] 5 mg 24 1-21 tablet by [facility] tablet 00:00: mouth [place] the Medical morning. Branch oxybutynin 2021-1 Yes [id number] 5mg Take 1 [facility] 5 mg 24 1-21 tablet by [facility] hr tablet 00:00: mouth [place] 00 the Medical morning. Branch oxybutynin 2021-1 Yes [id number] 5mg Take 1 [facility] 5 mg 24 1-21 tablet by [facility] hr tablet 00:00: mouth [place] 00 the Medical morning. Branch oxybutynin 2021-1 Yes [id number] 5mg Take 1 [facility] 5 mg 24 1-21 tablet by [facility] hr tablet 00:00: mouth [place] 00 the Medical morning. Branch oxybutynin 2021-1 Yes [id number] 5mg Take 1 [facility] 5 mg 24 1-21 tablet by [facility] hr tablet 00:00: mouth [place] 00 the Medical morning. Branch oxybutynin 2021-1 Yes [id number] 5mg Take 1 [facility] 5 mg 24 1-21 tablet by [facility] hr tablet 00:00: mouth [place] 00 the Medical morning. Branch oxybutynin 2021-1 Yes [id number] 5mg Take 1 [facility] 5 mg 24 1-21 tablet by [facility] hr tablet 00:00: mouth [place] 00 the Medical morning. Branch oxybutynin 2021-1 Yes [id number] 5mg Take 1 [facility] 5 mg 24 1-21 tablet by [facility] tablet 00:00: mouth [place] 00 the Medical morning. Branch oxybutynin 2021-02 Yes [id number] 5mg Take 1 [facility] 5 mg 24 - tablet by [facility] hr tablet 00:00: mouth [place] 00 the Medical morning. Branch oxybutynin 2021-02- No [id number] 5mg Take 1 [facility] 5 mg 24 -05 05-20 tablet by [facility] hr tablet 00:00: 00:00 mouth in [place] 00 :00 the Medical morning. Branch oxybutynin 2021-02- No [id number] 5mg Take 1 [facility] 5 mg 24 03-0720 tablet by [facility] hr tablet 00:00: 00:00 mouth in [place] 00 :00 the Medical morning. Branch oxybutynin 2021-02- No [id number] 5mg Take 1 [facility] 5 mg 03-0720 tablet by [facility] of hr tablet 00:00: 00:00 mouth in [place] 00 :00 the Medical morning. Branch oxybutynin 2021-02- No [id number] 5mg Take 1 [facility] 5 mg 03-0720 tablet by [facility] of hr tablet 00:00: 00:00 mouth in [place] 00 :00 the Medical morning. Branch tamsulosin 2021-02- No [id number] .4mg Take 1 [facility] 0.4 mg 24 03-07-27 capsule by [facility] of hr capsule 00:00: 00:00 mouth in [place] 00 :00 the Medical morning. Branch tamsulosin 2021-02- No [id number] .4mg Take 1 [facility] 0.4 mg 24 -04 02-27 capsule by [facility] of hr capsule 00:00: 00:00 mouth in [place] 00 :00 the Medical morning. Branch METOPROLOL 2021-02 Yes [id number] TAKE 1 [facility] TARTRATE 25 1-16 TABLET BY [facility] of mg tablet 00:00: MOUTH [place] 00 TWICE A Medical DAY Branch METOPROLOL 2021-02 Yes [id number] TAKE 1 [facility] TARTRATE 25 1-16 TABLET BY [facility] of mg tablet 00:00: MOUTH [place] 00 TWICE A Medical DAY Branch METOPROLOL 2021-02 Yes [id number] TAKE 1 [facility] TARTRATE 25 1-16 TABLET BY it[facility] of mg tablet 00:00: MOUTH [place] 00 TWICE A Medical DAY Branch METOPROLOL 2021-02- No [id number] TAKE 1 [facility] TARTRATE 25 1-16 11-21 TABLET BY it y of mg tablet 00:00: 00:00 MOUTH [place] 00 :00 TWICE A Medical DAY Branch METOPROLOL 2021-02- No [id number] TAKE 1 [facility] TARTRATE 25 1-16 11-21 TABLET BY it y of mg tablet 00:00: 00:00 MOUTH [place] 00 :00 TWICE A Medical DAY Branch tamsulosin 2021-02- No [id number] .4mg Take 1 [facility] 0.4 mg 24 02-21-08 capsule by [facility] of hr capsule 00:00: 05:59 mouth in [place] 00 :00 the Medical morning Branch for 30 days. tamsulosin 2021-02 No [id number] .4mg Take 1 [facility] 0.4 mg 24 02-21- capsule by [facility] of hr capsule 00:00: 05:59 mouth in [place] 00 :00 the Medical morning Branch for 30 days. tamsulosin 2021-02 No [id number] .4mg Take 1 [facility] 0.4 mg 24 02-21- capsule by [facility] of hr capsule 00:00: 05:59 mouth in [place] 00 :00 the Medical morning Branch for 30 days. tamsulosin 2021-02 No [id number] .4mg Take 1 [facility] 0.4 mg 24 02-21-08 capsule by [facility] of hr capsule 00:00: 05:59 mouth in [place] 00 :00 the Medical morning Branch for 30 days. tamsulosin 2021-02 No [id number] .4mg Take 1 [facility] 0.4 mg 24 02-21-08 capsule by [facility] of hr capsule 00:00: 05:59 mouth in [place] 00 :00 the Medical morning Branch for 30 days. tamsulosin 2021-02 No [id number] .4mg Take 1 [facility] 0.4 mg 24 02-21-08 capsule by [facility] of hr capsule 00:00: 05:59 mouth in [place] 00 :00 the Medical morning Branch for 30 days. tamsulosin 2021-02- No [id number] .4mg Take 1 [facility] 0.4 mg 24 02-21 12-08 capsule by [facility] of hr capsule 00:00: 05:59 mouth in [place] 00 :00 the Medical morning Branch for 30 days. tamsulosin 2021-02- No [id number] .4mg Take 1 [facility] 0.4 mg 24 02-21- capsule by [facility] of hr capsule 00:00: 00:00 mouth in [place] 00 :00 the Medical morning Branch for 30 days. tamsulosin 2021-02- No [id number] .4mg Take 1 [facility] 0.4 mg 24 02-21 capsule by [facility] of hr capsule 00:00: 00:00 mouth in [place] 00 :00 the Medical morning Branch for 30 days. aspirin 81 2021-02 Yes 325mg Take 325 Un [facility] mg EC 1-06 mg by it[facility] of tablet 16:35: mouth. [address] Branch Cholecalcif 2021-02 Yes 125ug Take 125 [facility] n[facility] [place]ight, 1-06 mcg by ity of Vitamin D3, 16:35: mouth. [place] 125 mcg 15 Medical (5,000 Branch unit) tablet oxybutynin 2021-02 Yes 5mg Take 5 mg [facility] XL 5 mg 24 1-06 by mouth ity o f hr tablet 16:35: in the [place] [address] morning. [facility] Branch multivitami 2021-02 Yes 1{tbl} Take 1 Un [facility] n tablet 1-06 tablet by ity of 16:35: mouth in [place] [address] the [facility]. Branch aspirin 81 2021-02 Yes 325mg Take 325 [facility] mg EC 1-06 mg by ity of tablet 16:35: mouth. [address] Cholecalcif 2021-02 Yes 125ug Take 125 U nivers [place]ight, 1-06 mcg by ity of Vitamin D3, 16:35: mouth. [place] 125 mcg 15 Medical (5,000 Branch unit) tablet oxybutynin 2021-02 Yes 5mg Take 5 mg [facility] XL 5 mg 24 1-06 by mouth ity o f hr tablet 16:35: in the [place] 15 morning. Medical Branch multivitami 2021-02 Yes 1{tbl} Take 1 [facility] n tablet 1-06 tablet by ity of 16:35: mouth in [place] [address] the Medical morning. Branch aspirin 81 2021-02 Yes 325mg Take 325 [facility] mg EC 1-06 mg by ity of tablet 16:35: mouth. [place] [address] Medical Branch Cholecalcif 2021-02 Yes 125ug Take 125 [facility] nivers [place]ight, 1-06 mcg by ity of Vitamin D3, 16:35: mouth. [place] 125 mcg 15 Medical (5,000 Branch unit) tablet oxybutynin 2021-02 Yes 5mg Take 5 mg [facility] XL 5 mg 24 1-06 by mouth ity o f hr tablet 16:35: in the [place] 15 morning. Medical Branch multivitami 2021-02 Yes 1{tbl} Take 1 [facility] n tablet 1-06 tablet by ity of 16:35: mouth in [place] [address] the Medical morning. Branch aspirin 81 2021-02 Yes 325mg Take 325 [facility] mg EC 1-06 mg by ity of tablet 16:35: mouth. [place] [address] Medical Branch Cholecalcif 2021-02 Yes 125ug Take 125 [facility] nivers [place]ight, 1-06 mcg by ity of Vitamin D3, 16:35: mouth. [place] 125 mcg 15 Medical (5,000 Branch unit) tablet oxybutynin 2021-02 Yes 5mg Take 5 mg [facility] XL 5 mg 24 1-06 by mouth ity o f hr tablet 16:35: in the [place] 15 morning. Medical Branch multivitami 2021-02 Yes 1{tbl} Take 1 [facility] n tablet 1-06 tablet by ity of 16:35: mouth in [place] [address] the Medical morning. Branch aspirin 81 2021-02 Yes 325mg Take 325 [facility] mg EC 1-06 mg by ity of tablet 16:35: mouth. [place] [address] Medical Branch Cholecalcif 2021-02 Yes 125ug Take 125 U nivers [place]ight, 1-06 mcg by ity of Vitamin D3, 16:35: mouth. [place] 125 mcg 15 Medical (5,000 Branch unit) tablet oxybutynin 2021-02 Yes 5mg Take 5 mg [facility] XL 5 mg 24 1-06 by mouth ity o f hr tablet 16:35: in the [place] 15 morning. Medical Branch multivitami 2021-02 Yes 1{tbl} Take 1 [facility] n tablet 1-06 tablet by ity of 16:35: mouth in [place] 15 the Medical morning. Branch aspirin 81 2021-02 Yes 325mg Take 325 [facility] mg EC 1-06 mg by ity of tablet 16:35: mouth. [place] [address] Medical Branch Cholecalcif 2021-02 Yes 125ug Take 125 U nivers dwight, 1-06 mcg by ity of Vitamin D3, 16:35: mouth. [place] 125 mcg 15 Medical (5,000 Branch unit) tablet oxybutynin 2021-02 Yes 5mg Take 5 mg [facility] XL 5 mg 24 1-06 by mouth ity o f hr tablet 16:35: in the [place] 15 morning. Medical Branch multivitami 2021-02 Yes 1{tbl} Take 1 [facility] n tablet 1-06 tablet by ity of 16:35: mouth in [place] [address] the Medical morning. Branch aspirin 81 2021-02 Yes 325mg Take 325 [facility] mg EC 1-06 mg by ity of tablet 16:35: mouth. [place] [address] Medical Branch Cholecalcif 2021-02 Yes 125ug Take 125 U nivers dwight, 1-06 mcg by ity of Vitamin D3, 16:35: mouth. [place] 125 mcg 15 Medical (5,000 Branch unit) tablet oxybutynin 2021-02 Yes 5mg Take 5 mg [facility] XL 5 mg 24 1-06 by mouth ity o f hr tablet 16:35: in the [place] [address] morning. Medical Branch multivitami 2021-02 Yes 1{tbl} Take 1 [facility] n tablet 1-06 tablet by ity of 16:35: mouth in [place] [address] the Medical morning. Branch aspirin 81 2021-02 Yes 325mg Take 325 [facility] mg EC 1-06 mg by ity of tablet 16:35: mouth. [place] [address] Medical Branch Cholecalcif 2021-02 Yes 125ug Take 125 U nivers dwight, 1-06 mcg by ity of Vitamin D3, 16:35: mouth. [place] 125 mcg 15 Medical (5,000 Branch unit) tablet multivitami 2021-02 Yes 1{tbl} Take 1 [facility] n tablet 1-06 tablet by ity of 16:35: mouth in [place] [address] the Medical morning. Branch aspirin 81 2021-02 Yes 325mg Take 325 [facility] mg EC 1-06 mg by ity of tablet 16:35: mouth. [place] [address] Medical Branch Cholecalcif 2021-02 Yes 125ug Take 125 U nivers dwight, 1-06 mcg by ity of Vitamin D3, 16:35: mouth. [place] 125 mcg 15 Medical (5,000 Branch unit) tablet multivitami 2021-02 Yes 1{tbl} Take 1 [facility] n tablet 1-06 tablet by ity of 16:35: mouth in [place] [address] the Medical morning. Branch aspirin 81 2021-02 Yes 325mg Take 325 [facility] mg EC 1-06 mg by ity of tablet 16:35: mouth. [place] [address] Medical Branch Cholecalcif 2021-02 Yes 125ug Take 125 U nivers dwight, 1-06 mcg by ity of Vitamin D3, 16:35: mouth. [place] 125 mcg 15 Medical (5,000 Branch unit) tablet multivitami 2021-02 Yes 1{tbl} Take 1 [facility] n tablet 1-06 tablet by ity of 16:35: mouth in [place] [address] the Medical morning. Branch aspirin 81 2021-02 Yes 325mg Take 325 [facility] mg EC 1-06 mg by ity of tablet 16:35: mouth. [place] [address] Medical Branch Cholecalcif 2021-02 Yes 125ug Take 125 U nivers dwight, 1-06 mcg by ity of Vitamin D3, 16:35: mouth. [place] 125 mcg 15 Medical (5,000 Branch unit) tablet multivitami 2021-02 Yes 1{tbl} Take 1 [facility] n tablet 1-06 tablet by ity of 16:35: mouth in [place] [address] the Medical morning. Branch aspirin 81 2021-02 Yes 325mg Take 325 [facility] mg EC 1-06 mg by ity of tablet 16:35: mouth. [place] [address] Medical Branch Cholecalcif 2021-02 Yes 125ug Take 125 U nivers dwight, 1-06 mcg by ity of Vitamin D3, 16:35: mouth. [place] 125 mcg 15 Medical (5,000 Branch unit) tablet multivitami 2021-02 Yes 1{tbl} Take 1 [facility] n tablet 1-06 tablet by ity of 16:35: mouth in [place] [address] the Medical morning. Branch aspirin 81 2021-02 Yes 325mg Take 325 [facility] mg EC 1-06 mg by ity of tablet 16:35: mouth. [place] [address] Medical Branch Cholecalcif 2021-02 Yes 125ug Take 125 U nivers dwight, 1-06 mcg by ity of Vitamin D3, 16:35: mouth. [place] 125 mcg 15 Medical (5,000 Branch unit) tablet multivitami 2021-02 Yes 1{tbl} Take 1 [facility] n tablet 1-06 tablet by ity of 16:35: mouth in [place] [address] the Medical morning. Branch aspirin 81 2021-02 Yes 325mg Take 325 Un [facility] mg EC 1-06 mg by ity of tablet 16:35: mouth. [place] [address] Medical Branch Cholecalcif 2021-02 Yes 125ug Take 125 U nivers [place]ight, 1-06 mcg by ity of Vitamin D3, 16:35: mouth. [place] 125 mcg 15 Medical (5,000 Branch unit) tablet multivitami 2021-02 Yes 1{tbl} Take 1 [facility] n tablet 1-06 tablet by ity of 16:35: mouth in [place] [address] the Medical morning. Branch aspirin 81 2021-02 Yes 325mg Take 325 Un [facility] mg EC 1-06 mg by ity of tablet 16:35: mouth. [place] [address] Medical Branch Cholecalcif 2021-02 Yes 125ug Take 125 U nivers dwight, 1-06 mcg by ity of Vitamin D3, 16:35: mouth. [place] 125 mcg 15 Medical (5,000 Branch unit) tablet multivitami 2021-02 Yes 1{tbl} Take 1 [facility] n tablet 1-06 tablet by ity of 16:35: mouth in [place] [address] the Medical morning. Branch aspirin 81 2021-02 Yes 325mg Take 325 Un [facility] mg EC 1-06 mg by ity of tablet 16:35: mouth. [place] [address] Medical Branch Cholecalcif 2021-02 Yes 125ug Take 125 U nivers dwight, 1-06 mcg by ity of Vitamin D3, 16:35: mouth. [place] 125 mcg 15 Medical (5,000 Branch unit) tablet multivitami 2021-02 Yes 1{tbl} Take 1 Un [facility] n tablet 1-06 tablet by ity of 16:35: mouth in [place] [address] the Medical morning. Branch aspirin 81 2021-02 Yes 325mg Take 325 Un [facility] mg EC 1-06 mg by ity of tablet 16:35: mouth. [place] [address] Medical Branch Cholecalcif 2021-02 Yes 125ug Take 125 U nivers dwight, 1-06 mcg by ity of Vitamin D3, 16:35: mouth. [place] 125 mcg 15 Medical (5,000 Branch unit) tablet multivitami 2021-02 Yes 1{tbl} Take 1 Un [facility] n tablet 1-06 tablet by ity of 16:35: mouth in [place] [address] the Medical morning. Branch aspirin 81 2021-02 Yes 325mg Take 325 Un [facility] mg EC 1-06 mg by ity of tablet 16:35: mouth. [place] [address] Medical Branch Cholecalcif 2021-02 Yes 125ug Take 125 U nivers dwight, 1-06 mcg by ity of Vitamin D3, 16:35: mouth. [place] 125 mcg 15 Medical (5,000 Branch unit) tablet multivitami 2021-02 Yes 1{tbl} Take 1 [facility] n tablet 1-06 tablet by ity of 16:35: mouth in [place] [address] the Medical morning. Branch aspirin 81 2021-02 Yes 325mg Take 325 Un [facility] mg EC 1-06 mg by ity of tablet 16:35: mouth. [place] [address] Medical Branch Cholecalcif 2021-02 Yes 125ug Take 125 U nivers dwight, 1-06 mcg by ity of Vitamin D3, 16:35: mouth. [place] 125 mcg 15 Medical (5,000 Branch unit) tablet multivitami 2021-02 Yes 1{tbl} Take 1 [facility] n tablet 1-06 tablet by ity of 16:35: mouth in [place] [address] the Medical morning. Branch aspirin 81 2021-02 Yes 325mg Take 325 Un [facility] mg EC 1-06 mg by ity of tablet 16:35: mouth. [place] [address] Medical Branch Cholecalcif 2021-02 Yes 125ug Take 125 U nivers dwight, 1-06 mcg by ity of Vitamin D3, 16:35: mouth. [place] 125 mcg 15 Medical (5,000 Branch unit) tablet multivitami 2021-02 Yes 1{tbl} Take 1 [facility] n tablet 1-06 tablet by ity of 16:35: mouth in [place] [address] the Medical morning. Branch aspirin 81 2021-02 Yes 325mg Take 325 Un [facility] mg EC 1-06 mg by ity of tablet 16:35: mouth. [place] [address] Medical Branch Cholecalcif 2021-02 Yes 125ug Take 125 U nivers [place]ight, 1-06 mcg by ity of Vitamin D3, 16:35: mouth. [place] 125 mcg 15 Medical (5,000 Branch unit) tablet multivitami 2021-02 Yes 1{tbl} Take 1 [facility] n tablet 1-06 tablet by ity of 16:35: mouth in [place] [address] the Medical morning. Branch aspirin 81 2021-02 Yes 325mg Take 325 Un [facility] mg EC 1-06 mg by ity of tablet 16:35: mouth. [place] [address] Medical Branch Cholecalcif 2021-02 Yes 125ug Take 125 U nivers [place]ight, 1-06 mcg by ity of Vitamin D3, 16:35: mouth. [place] 125 mcg 15 Medical (5,000 Branch unit) tablet multivitami 2021-02 Yes 1{tbl} Take 1 [facility] n tablet 1-06 tablet by ity of 16:35: mouth in [place] [address] the Medical morning. Branch aspirin 81 2021-02 Yes 325mg Take 325 Un [facility] mg EC 1-06 mg by ity of tablet 16:35: mouth. [place] [address] Medical Branch Cholecalcif 2021-02 Yes 125ug Take 125 U nivers dwight, 1-06 mcg by ity of Vitamin D3, 16:35: mouth. [place] 125 mcg 15 Medical (5,000 Branch unit) tablet multivitami 2021-02 Yes 1{tbl} Take 1 [facility] n tablet 1-06 tablet by ity of 16:35: mouth in [place] [address] the Medical morning. Branch aspirin 81 2021-02 Yes 325mg Take 325 Un [facility] mg EC 1-06 mg by ity of tablet 16:35: mouth. [place] [address] Medical Branch Cholecalcif 2021-02 Yes 125ug Take 125 U nivers dwight, 1-06 mcg by ity of Vitamin D3, 16:35: mouth. [place] 125 mcg 15 Medical (5,000 Branch unit) tablet multivitami 2021-02 Yes 1{tbl} Take 1 Un [facility] n tablet 1-06 tablet by ity of 16:35: mouth in [place] [address] the Medical morning. Branch aspirin 81 2021-02 Yes 325mg Take 325 Un [facility] mg EC 1-06 mg by ity of tablet 16:35: mouth. [place] [address] Medical Branch Cholecalcif 2021-02 Yes 125ug Take 125 U nivers dwight, 1-06 mcg by ity of Vitamin D3, 16:35: mouth. [place] 125 mcg 15 Medical (5,000 Branch unit) tablet multivitami 2021-02 Yes 1{tbl} Take 1 Un [facility] n tablet 1-06 tablet by ity of 16:35: mouth in [place] [address] the Medical morning. Branch aspirin 81 2021-02 Yes 325mg Take 325 Un [facility] mg EC 1-06 mg by ity of tablet 16:35: mouth. [place] [address] Medical Branch Cholecalcif 2021-02 Yes 125ug Take 125 U nivers [place]ight, 1-06 mcg by ity of Vitamin D3, 16:35: mouth. [place] 125 mcg 15 Medical (5,000 Branch unit) tablet multivitami 2021-02 Yes 1{tbl} Take 1 Un [facility] n tablet 1-06 tablet by ity of 16:35: mouth in [place] [address] the Medical morning. Branch aspirin 81 2021-02 Yes 325mg Take 325 Un [facility] mg EC 1-06 mg by ity of tablet 16:35: mouth. [place] [address] Medical Branch Cholecalcif 2021-02 Yes 125ug Take 125 U nivers dwight, 1-06 mcg by ity of Vitamin D3, 16:35: mouth. [place] 125 mcg 15 Medical (5,000 Branch unit) tablet multivitami 2021-02 Yes 1{tbl} Take 1 [facility] n tablet 1-06 tablet by ity of 16:35: mouth in [place] [address] the Medical morning. Branch aspirin 81 2021-02 Yes 325mg Take 325 Un [facility] mg EC 1-06 mg by ity of tablet 16:35: mouth. [place] [address] Medical Branch Cholecalcif 2021-02 Yes 125ug Take 125 U nivers [place]ight, 1-06 mcg by ity of Vitamin D3, 16:35: mouth. [place] 125 m[place] 15 Medical (5,000 Branch unit) tablet multivitami 2021-02 Yes 1{tbl} Take 1 [facility] n tablet 1-06 tablet by ity of 16:35: mouth in [place] [address] the Medical morning. Branch aspirin 81 2021-02 Yes 325mg Take 325 Un [facility] mg EC 1-06 mg by ity of tablet 16:35: mouth. [place] [address] Medical Branch Cholecalcif 2021-02 Yes 125ug Take 125 U nivers dwight, 1-06 mcg by ity of Vitamin D3, 16:35: mouth. [place] 125 m[place] 15 Medical (5,000 Branch unit) tablet multivitami 2021-02 Yes 1{tbl} Take 1 Un [facility] n tablet 1-06 tablet by ity of 16:35: mouth in [place] [address] the Medical morning. Branch aspirin 81 2021-02 Yes 325mg Take 325 Un [facility] mg EC 1-06 mg by ity of tablet 16:35: mouth. [place] [address] Medical Branch Cholecalcif 2021-02 Yes 125ug Take 125 U nivers [place]ight, 1-06 mcg by ity of Vitamin D3, 16:35: mouth. [place] 125 m[place] 15 Medical (5,000 Branch unit) tablet multivitami 2021-02 Yes 1{tbl} Take 1 [facility] n tablet 1-06 tablet by ity of 16:35: mouth in [place] [address] the Medical morning. Branch aspirin 81 2021-02 Yes 325mg Take 325 Un [facility] mg EC 1-06 mg by ity of tablet 16:35: mouth. [place] [address] Medical Branch Cholecalcif 2021-02 Yes 125ug Take 125 U nivers [place]ight, 1-06 mcg by ity of Vitamin D3, 16:35: mouth. [place] 125 m[place] 15 Medical (5,000 Branch unit) tablet multivitami 2021-02 Yes 1{tbl} Take 1 [facility] n tablet 1-06 tablet by ity of 16:35: mouth in [place] [address] the Medical morning. Branch aspirin 81 2021-02 Yes 325mg Take 325 Un [facility] mg EC 1-06 mg by ity of tablet 16:35: mouth. [place] [address] Medical Branch Cholecalcif 2021-02 Yes 125ug Take 125 U nivers [place]ight, 1-06 mcg by ity of Vitamin D3, 16:35: mouth. [place] 125 m[place] 15 Medical (5,000 Branch unit) tablet multivitami 2021-02 Yes 1{tbl} Take 1 [facility] n tablet 1-06 tablet by ity of 16:35: mouth in [place] [address] the Medical morning. Branch aspirin 81 2021-02 Yes 325mg Take 325 Un [facility] mg EC 1-06 mg by ity of tablet 16:35: mouth. [place] [address] Medical Branch Cholecalcif 2021-02 Yes 125ug Take 125 U nivers [place]ight, 1-06 mcg by ity of Vitamin D3, 16:35: mouth. [place] 125 [place] 15 Medical (5,000 Branch unit) tablet multivitami 2021-02 Yes 1{tbl} Take 1 [facility] n tablet 1-06 tablet by ity of 16:35: mouth in [place] [address] the Medical morning. Branch aspirin 81 2021-02 Yes 325mg Take 325 Un [facility] mg EC 1-06 mg by ity of tablet 16:35: mouth. [place] [address] Medical Branch Cholecalcif 2021-02 Yes 125ug Take 125 U nivers [place]ight, 1-06 mcg by ity of Vitamin D3, 16:35: mouth. [place] 125 [place] 15 Medical (5,000 Branch unit) tablet multivitami 2021-02 Yes 1{tbl} Take 1 [facility] n tablet 1-06 tablet by ity of 16:35: mouth in [place] [address] the Medical morning. Branch aspirin 81 2021-02 Yes 325mg Take 325 Un [facility] mg EC 1-06 mg by ity of tablet 16:35: mouth. [place] [address] Medical Branch Cholecalcif 2021-02 Yes 125ug Take 125 U nivers [place]ight, 1-06 mcg by ity of Vitamin D3, 16:35: mouth. [place] 125 [place] 15 Medical (5,000 Branch unit) tablet multivitami 2021-02 Yes 1{tbl} Take 1 [facility] n tablet 1-06 tablet by ity of 16:35: mouth in [place] [address] the Medical morning. Branch aspirin 81 2021-02 Yes 325mg Take 325 [facility] mg EC 1-06 mg by ity of tablet 16:35: mouth. [place] [address] Medical Branch Cholecalcif 2021-02 Yes 125ug Take 125 U nivers [place]ight, 1-06 mcg by ity of Vitamin D3, 16:35: mouth. [place] 125 [place] 15 Medical (5,000 Branch unit) tablet multivitami 2021-02 Yes 1{tbl} Take 1 [facility] n tablet 1-06 tablet by ity of 16:35: mouth in [place] [address] the Medical morning. Branch aspirin 81 2021-02 Yes 325mg Take 325 Un [facility] mg EC 1-06 mg by ity of tablet 16:35: mouth. [place] [address] Medical Branch Cholecalcif 2021-02 Yes 125ug Take 125 U nivers [place]ight, 1-06 mcg by ity of Vitamin D3, 16:35: mouth. [place] 125 [place] 15 Medical (5,000 Branch unit) tablet multivitami 2021-02 Yes 1{tbl} Take 1 [facility] n tablet 1-06 tablet by ity of 16:35: mouth in [place] [address] the Medical morning. Branch aspirin 81 2021-02 Yes 325mg Take 325 [facility] mg EC 1-06 mg by ity of tablet 16:35: mouth. [place] [address] Medical Branch Cholecalcif 2021-02 Yes 125ug Take 125 U nivers [place], 1-06 mcg by ity of Vitamin D3, 16:35: mouth. [place] 125 [place] 15 Medical (5,000 Branch unit) tablet multivitami 2021-02 Yes 1{tbl} Take 1 [facility] n tablet 1-06 tablet by ity of 16:35: mouth in [place] [address] the Medical morning. Branch aspirin 81 2021-02 Yes 325mg Take 325 [facility] mg EC 1-06 mg by ity of tablet 16:35: mouth. [place] [address] Medical Branch Cholecalcif 2021-02 Yes 125ug Take 125 U nivers dwight, 1-06 mcg by ity of Vitamin D3, 16:35: mouth. [place] 125 mcg 15 Medical (5,000 Branch unit) tablet multivitami 2021-02 Yes 1{tbl} Take 1 Un [facility] n tablet 1-06 tablet by ity of 16:35: mouth in [place] [address] the Medical morning. Branch aspirin 81 2021-02 Yes 325mg Take 325 Un [facility] mg EC 1-06 mg by ity of tablet 16:35: mouth. [place] [address] Medical Branch aspirin 81 2021-02 Yes 325mg Take 325 Un [facility] mg EC 1-06 mg by ity of tablet 16:35: mouth. [place] [address] Medical Branch aspirin 81 2021-02 Yes 325mg Take 325 Un [facility] mg EC 1-06 mg by ity of tablet 16:35: mouth. [address] aspirin 81 2021-02 Yes 325mg Take 325 Un [facility] mg EC 1-06 mg by ity of tablet 16:35: mouth. [address] aspirin 81 2021-02 Yes 325mg Take 325 Un [facility] mg EC 1-06 mg by ity of tablet 16:35: mouth. [address] aspirin 81 2021-02 Yes 325mg Take 325 Un [facility] mg EC 1-06 mg by ity of tablet 16:35: mouth. [address] hydrALAZINE 2021-02- No [id number] 50mg Take 50 mg Univers 50 mg 02-20 by mouth ity of tablet 11:40: 00:00 daily. [place] 21 :00 [facility] ascorbic 2021-02- No [id number] 1000mg Take 2 Univers acid, 02-20 tablets by ity of vitamin C, 00:00: 05:59 mouth in [place] 500 mg 00 :00 the Medical tablet morning Branch for 30 days. ascorbic 2021-02- No [id number] 1000mg Take 2 [facility] acid, 02-20 tablets by ity of vitamin C, 00:00: 05:59 mouth in [place] 500 mg 00 :00 the Medical tablet morning Branch for 30 days. ascorbic 2021-02- No [id number] 1000mg Take 2 Univers acid, 02-20 tablets by ity of vitamin C, 00:00: 05:59 mouth in [place] 500 mg 00 :00 the Medical tablet morning Branch for 30 days. ascorbic 2021-02- No [id number] 1000mg Take 2 [facility] acid, 02-20 tablets by ity of vitamin C, 00:00: 05:59 mouth in [place] 500 mg 00 :00 the Medical tablet morning Branch for 30 days. ascorbic 2021-02- No [id number] 1000mg Take 2 Univers acid, 02-20 tablets by ity of vitamin C, 00:00: 05:59 mouth in [place] 500 mg 00 :00 the Medical tablet morning Branch for 30 days. ascorbic 2021-02- No [id number] 1000mg Take 2 Univers acid, 02-20 tablets by ity of vitamin C, 00:00: 05:59 mouth in [place] 500 mg 00 :00 the Medical tablet morning Branch for 30 days. ascorbic 2021-02- No [id number] 1000mg Take 2 Univers acid, 02-20 tablets by ity of vitamin C, 00:00: 05:59 mouth in [place] 500 mg 00 :00 the Medical tablet morning Branch for 30 days. ascorbic 2021-02- No [id number] 1000mg Take 2 Univers acid, 02-20 tablets by ity of vitamin C, 00:00: 05:59 mouth in [place] 500 mg 00 :00 the Medical tablet morning Branch for 30 days. ascorbic 2021-02- No [id number] 1000mg Take 2 Univers acid, 02-20 tablets by ity of vitamin C, 00:00: 05:59 mouth in [place] 500 mg 00 :00 the Medical tablet morning Branch for 30 days. tamsulosin 2021-02 Yes .4mg 0.4 mg, Univ ers (FLOMAX) 1-05 Oral, ity of capsule 0.4 14:00: DAILY, [place] mg 00 First dose Medical on [facility] 12/20/21 at 0900, Until Discontinu ed, Routine ezetimibe 2021-02 Yes 10mg 10 mg, Univer s (ZETIA) 1-05 Oral, ity of tablet 10 14:00: DAILY, [place] mg 00 First dose Medical on [facility] 12/20/21 at 0900, Until Discontinu ed, Routine clopidogreL 2021-02 Yes 75mg 75 mg, Univ ers (PLAVIX) 75 1-05 Oral, ity of mg tablet 14:00: DAILY, [place] 75 mg 00 First dose Medical on [facility] 12/20/21 at 0900, Until Discontinu ed, Routine aspirin 2021-02 Yes 325mg 325 mg, Univer s E.C. 1-05 Oral, ity of (ECOTRIN) 14:00: DAILY, [place] tablet 325 00 First dose Med ical mg on [facility] 12/20/21 at 0900, Until Discontinu ed, Routine oxybutynin 2021-02 Yes 5mg 5 mg, Univer s chloride 1-05 Oral, BID, ity o f (DITROPAN) 13:00: First dose [place] tablet 5 mg 00 on Sat Medica l 12/20/21 at Branch 0800, Until Discontinu ed, Routine glimepiride 2021-02 Yes 2mg 2 mg, Unive rs (AMARYL) 02-19 Oral, QAM ity of tablet 2 mg 13:00: WITH [place] 00 BREAKFAST, Medical First dose Branch on 12/20/21 at 0800, Until Discontinu ed, Routine Sliding 2021-02 Yes Subcutaneo Univ ers Scale -04 us, TID ity of Insulin - 22:00: MEALS+HS, [place] Lispro 00 First dose Medical (HumaLOG) + on Wed Branch Fsbg 12/19/21 at Testing 1700, Until Discontinu ed, Routine enoxaparin 2021-02- No 40mg 40 mg, Univ ers (LOVENOX) 02-1805 Subcutaneo ity of injection 22:00: 01:13 us, DAILY, [place] 40 mg 00 :13 First dose Medical on Wed Branch 12/19/21 at 1700, Until Discontinu ed, Routine glucagon 2021-02 Yes 1mg 1 mg, Univers (GLUCAGEN 02-18 Intramuscu ity of DIAGNOSTIC 19:23: lar, PRN, [place] KIT) 13 Starting Medical injection 1 on Fri Branch mg 12/19/21 at 1423, Until Discontinu ed, MANUEL, Blood Glucose < or = 70 mg/dL and patient is unable to swallow or has mental changes. dextrose 50 2021-02 Yes 25mL 25 mL, Univ ers % in water 02-18 Slow IV ity of (D50W) 19:23: Push, PRN, [place] injection 13 Starting Medica l 25 mL on Wed Branch 12/19/21 at 1423, Until Discontinu ed, MANUEL, Blood Glucose < or = 70 mg/dL and patient is unable to swallow or has mental status changes. traMADoL 2021-02- No 50mg 50 mg, Univer s (ULTRAM) 106 Oral, ity of tablet 50 19:22: 20:21 Q8HPRN, [place] mg 59 :59 Starting Medical on Wed Branch 12/19/21 at 1422, Until 11/6/22 at 1421, Routine, Pain (scale 4-6) acetaminoph 2021-02 Yes 650mg 650 mg, Un b[facility]i en 02-18 Oral, ity of (TYLENOL) 19:22: Q6HPRN, [place] tablet 650 56 Starting Medic al mg on Fri Branch 12/19/21 at 1422, Until Discontinu ed, Routine, Pain (scale 1-3) acetaminoph 2021-02- No 975mg 975 mg, U nivers en 02-18 Oral, ity of (TYLENOL) 18:30: 17:27 ONCE, 1 [place] tablet 975 00 :00 dose, On Medic al mg Fri Branch 12/19/21 at 1330, [place] furosemide 2021-02 Yes [id number] TAKE 1 [facility] 20 mg 1-03 TABLET BY ity of tablet 00:00: MOUTH [place] 00 EVERY DAY Medical Branch furosemide 2021-02 Yes [id number] TAKE 1 [facility] 20 mg 1-03 TABLET BY ity of tablet 00:00: MOUTH [place] 00 EVERY DAY Medical Branch furosemide 2021-02 Yes [id number] TAKE 1 [facility] 20 mg 1-03 TABLET BY ity of tablet 00:00: MOUTH [place] 00 EVERY DAY Medical Branch furosemide 2021-02 Yes [id number] TAKE 1 [facility] 20 mg 1-03 TABLET BY ity of tablet 00:00: MOUTH [place] 00 EVERY DAY Medical Branch furosemide 2021-02 Yes [id number] TAKE 1 [facility] 20 mg 1-03 TABLET BY ity of tablet 00:00: MOUTH [place] 00 EVERY DAY Medical Branch furosemide 2021-02 Yes [id number] TAKE 1 [facility] 20 mg 1-03 TABLET BY ity of tablet 00:00: MOUTH [place] 00 EVERY DAY Medical Branch furosemide 2021-02 Yes [id number] TAKE 1 Univers 20 mg 1-03 TABLET BY ity of tablet 00:00: MOUTH [place] 00 EVERY DAY Medical Branch furosemide 2021-02 Yes [id number] TAKE 1 [facility] 20 mg 1-03 TABLET BY ity of tablet 00:00: MOUTH [place] 00 EVERY DAY Medical Branch furosemide 2021-02 Yes [id number] TAKE 1 [facility] 20 mg 1-03 TABLET BY ity of tablet 00:00: MOUTH [place] 00 EVERY DAY Medical Branch furosemide 2021-02 Yes [id number] TAKE 1 Univers 20 mg 1-03 TABLET BY ity of tablet 00:00: MOUTH [place] 00 EVERY DAY Medical Branch furosemide 2- Yes [id number] TAKE 1 Univers 20 mg 1-03 TABLET BY ity of tablet 00:00: MOUTH [place] 00 EVERY DAY Medical Branch furosemide 2- Yes [id number] TAKE 1 [facility] 20 mg 1-03 TABLET BY ity of tablet 00:00: MOUTH [place] 00 EVERY DAY Medical Branch furosemide 2-1 Yes [id number] TAKE 1 [facility] 20 mg 1-03 TABLET BY ity of tablet 00:00: MOUTH [place] 00 EVERY DAY Medical Branch furosemide 2021- Yes [id number] TAKE 1 Univers 20 mg 1-03 TABLET BY ity of tablet 00:00: MOUTH [place] 00 EVERY DAY Medical Branch furosemide 2021- Yes [id number] TAKE 1 [facility] 20 mg 1-03 TABLET BY ity of tablet 00:00: MOUTH [place] 00 EVERY DAY Medical Branch furosemide 2021- Yes [id number] TAKE 1 Univers 20 mg 1-03 TABLET BY ity of tablet 00:00: MOUTH [place] 00 EVERY DAY Medical Branch furosemide 2021- Yes [id number] TAKE 1 [facility] 20 mg 1-03 TABLET BY ity of tablet 00:00: MOUTH [place] 00 EVERY DAY Medical Branch furosemide 2021- Yes [id number] TAKE 1 [facility] 20 mg 1-03 TABLET BY ity of tablet 00:00: MOUTH [place] 00 EVERY DAY Medical Branch furosemide 2021- Yes [id number] TAKE 1 [facility] 20 mg 1-03 TABLET BY ity of tablet 00:00: MOUTH [place] 00 EVERY DAY Medical Branch furosemide 2021- 2023- No [id number] TAKE 1 Univers 20 mg 1-03 02-01 TABLET BY ity of tablet 00:00: 00:00 MOUTH [place] 00 :00 EVERY DAY Medical Branch mirabegron 2021- Yes [id number] 25mg Take 1 Univers (MYRBETRIQ) 0-27 tablet by ity of 25 mg 00:00: mouth in [place] tablet 00 the Medical morning. Branch mirabegron 2021- Yes [id number] 25mg Take 1 Univers (MYRBETRIQ) 0-27 tablet by ity of 25 mg 00:00: mouth in [place] tablet 00 the Medical morning. Branch mirabegron 2021- Yes [id number] 25mg Take 1 Univers (MYRBETRIQ) 0-27 tablet by ity of 25 mg 00:00: mouth in [place] tablet 00 the Medical morning. Branch mirabegron 2021-02- No [id number] 25mg Take 1 Univers (MYRBETRIQ) 0- tablet by it y of 25 mg 00:00: 00:00 mouth in [place] tablet 00 :00 the Medical morning. Branch amLODIPine 2021-02- No Univer s 5 mg tablet 01-05 ity of 00:00: 00:00 [place] 00 :00 Medical Branch amLODIPine 2021-02- No Univer s 5 mg tablet 01-05 ity of 00:00: 00:00 [place] 00 :00 Medical Branch METOPROLOL 0 Yes [id number] TAKE 1 U nivers TARTRATE 25 8-15 TABLET BY ity of mg tablet 00:00: MOUTH [place] 00 TWICE A Medical DAY Branch METOPROLOL 0 Yes [id number] TAKE 1 U nivers TARTRATE 25 8-15 TABLET BY ity of mg tablet 00:00: MOUTH [place] 00 TWICE A Medical DAY Branch METOPROLOL 0 Yes [id number] TAKE 1 U nivers TARTRATE 25 8-15 TABLET BY ity of mg tablet 00:00: MOUTH [place] 00 TWICE A Medical DAY Branch METOPROLOL 0 Yes [id number] TAKE 1 U nivers TARTRATE 25 8-15 TABLET BY ity of mg tablet 00:00: MOUTH [place] 00 TWICE A Medical DAY Branch METOPROLOL 0 Yes [id number] TAKE 1 U nivers TARTRATE 25 8-15 TABLET BY ity of mg tablet 00:00: MOUTH [place] 00 TWICE A Medical DAY Branch METOPROLOL 2021-0 Yes [id number] TAKE 1 U nivers TARTRATE 25 8-15 TABLET BY ity of mg tablet 00:00: MOUTH [place] 00 TWICE A Medical DAY Branch METOPROLOL 0 Yes [id number] TAKE 1 U nivers TARTRATE 25 8-15 TABLET BY ity of mg tablet 00:00: MOUTH [place] 00 TWICE A Medical DAY Branch METOPROLOL 0 Yes [id number] TAKE 1 U nivers TARTRATE 25 8-15 TABLET BY ity of mg tablet 00:00: MOUTH [place] 00 TWICE A Medical DAY Branch METOPROLOL 2021- No [id number] TAKE 1 Univers TARTRATE 25 8-15 11-16 TABLET BY it y of mg tablet 00:00: 00:00 MOUTH [place] 00 :00 TWICE A Medical DAY Branch ezetimibe 2-0 Yes [id number] 10mg Take 1 Un [facility] (ZETIA) 10 7-14 tablet by ity of mg tablet 00:00: mouth [place] 00 the Medical morning. Branch ezetimibe 2022-0 Yes [id number] 10mg Take 1 [facility] (ZETIA) 10 7-14 tablet by ity of mg tablet 00:00: mouth [place] 00 the Medical morning. Branch ezetimibe 2-0 Yes [id number] 10mg Take 1 [facility] (ZETIA) 10 7-14 tablet by ity of mg tablet 00:00: mouth [place] 00 the Medical morning. Branch ezetimibe 2022-0 Yes [id number] 10mg Take 1 [facility] (ZETIA) 10 7-14 tablet by ity of mg tablet 00:00: mouth [place] 00 the Medical morning. Branch ezetimibe 2-0 Yes [id number] 10mg Take 1 [facility] (ZETIA) 10 7-14 tablet by ity of mg tablet 00:00: mouth in [place] 00 the Medical morning. Branch ezetimibe 2-0 Yes [id number] 10mg Take 1 [facility] (ZETIA) 10 7-14 tablet by ity of mg tablet 00:00: mouth in [place] 00 the Medical morning. Branch ezetimibe 2022-0 Yes [id number] 10mg Take 1 [facility] (ZETIA) 10 7-14 tablet by ity of mg tablet 00:00: mouth [place] 00 the Medical morning. Branch ezetimibe 2-0 Yes [id number] 10mg Take 1 [facility] (ZETIA) 10 7-14 tablet by ity of mg tablet 00:00: mouth [place] 00 the Medical morning. Branch ezetimibe 2022-0 Yes [id number] 10mg Take 1 Un [facility] (ZETIA) 10 7-14 tablet by ity of mg tablet 00:00: mouth [place] 00 the Medical morning. Branch ezetimibe 2022-0 Yes [id number] 10mg Take 1 [facility] (ZETIA) 10 7-14 tablet by ity of mg tablet 00:00: mouth in [place] 00 the Medical morning. Branch ezetimibe 2-0 Yes [id number] 10mg Take 1 [facility] (ZETIA) 10 7-14 tablet by ity of mg tablet 00:00: mouth [place] 00 the Medical morning. Branch ezetimibe 2022-0 Yes [id number] 10mg Take 1 [facility] (ZETIA) 10 7-14 tablet by ity of mg tablet 00:00: mouth in [place] 00 the Medical morning. Branch ezetimibe 2-0 Yes [id number] 10mg Take 1 Un [facility] (ZETIA) 10 7-14 tablet by ity of mg tablet 00:00: mouth [place] 00 the Medical morning. Branch ezetimibe 2-0 Yes [id number] 10mg Take 1 Un [facility] (ZETIA) 10 7-14 tablet by ity of mg tablet 00:00: mouth in [place] 00 the Medical morning. Branch ezetimibe 2-0 Yes [id number] 10mg Take 1 Un [facility] (ZETIA) 10 7-14 tablet by ity of mg tablet 00:00: mouth in [place] 00 the Medical morning. Branch ezetimibe 2-0 Yes [id number] 10mg Take 1 Un [facility] (ZETIA) 10 7-14 tablet by ity of mg tablet 00:00: mouth [place] 00 the Medical morning. Branch ezetimibe 2-0 Yes [id number] 10mg Take 1 Un [facility] (ZETIA) 10 7-14 tablet by ity of mg tablet 00:00: mouth [place] 00 the Medical morning. Branch ezetimibe 2-0 Yes [id number] 10mg Take 1 [facility] (ZETIA) 10 7-14 tablet by ity of mg tablet 00:00: mouth [place] 00 the Medical morning. Branch ezetimibe 2022-0 Yes [id number] 10mg Take 1 [facility] (ZETIA) 10 7-14 tablet by ity of mg tablet 00:00: mouth [place] 00 the Medical morning. Branch ezetimibe 2022-0 Yes [id number] 10mg Take 1 [facility] (ZETIA) 10 7-14 tablet by ity of mg tablet 00:00: mouth [place] 00 the Medical morning. Branch ezetimibe 2-0 Yes [id number] 10mg Take 1 [facility] (ZETIA) 10 7-14 tablet by ity of mg tablet 00:00: mouth [place] 00 the Medical morning. Branch ezetimibe 2-0 Yes [id number] 10mg Take 1 [facility] (ZETIA) 10 7-14 tablet by ity of mg tablet 00:00: mouth in [place] 00 the Medical morning. Branch ezetimibe 2-0 Yes [id number] 10mg Take 1 [facility] (ZETIA) 10 7-14 tablet by ity of mg tablet 00:00: mouth [place] 00 the Medical morning. Branch ezetimibe 2-0 Yes [id number] 10mg Take 1 [facility] (ZETIA) 10 7-14 tablet by ity of mg tablet 00:00: mouth in [place] 00 the Medical morning. Branch ezetimibe 2-0 Yes [id number] 10mg Take 1 [facility] (ZETIA) 10 7-14 tablet by ity of mg tablet 00:00: mouth in [place] 00 the Medical morning. Branch ezetimibe 2-0 Yes [id number] 10mg Take 1 [facility] (ZETIA) 10 7-14 tablet by ity of mg tablet 00:00: mouth in [place] 00 the Medical morning. Branch ezetimibe 2-0 Yes [id number] 10mg Take 1 Un [facility] (ZETIA) 10 7-14 tablet by ity of mg tablet 00:00: mouth [place] 00 the Medical morning. Branch ezetimibe 2-0 Yes [id number] 10mg Take 1 [facility] (ZETIA) 10 7-14 tablet by ity of mg tablet 00:00: mouth [place] 00 the Medical morning. Branch ezetimibe 2-0 Yes [id number] 10mg Take 1 [facility] (ZETIA) 10 7-14 tablet by ity of mg tablet 00:00: mouth [place] 00 the Medical morning. Branch ezetimibe 2022-0 Yes [id number] 10mg Take 1 Un [facility] (ZETIA) 10 7-14 tablet by ity of mg tablet 00:00: mouth [place] 00 the Medical morning. Branch ezetimibe 2-0 Yes [id number] 10mg Take 1 Un [facility] (ZETIA) 10 7-14 tablet by ity of mg tablet 00:00: mouth in [place] 00 the Medical morning. Branch ezetimibe 2-0 Yes [id number] 10mg Take 1 [facility] (ZETIA) 10 7-14 tablet by ity of mg tablet 00:00: mouth in [place] 00 the Medical morning. Branch ezetimibe 2-0 Yes [id number] 10mg Take 1 [facility] (ZETIA) 10 7-14 tablet by ity of mg tablet 00:00: mouth in [place] 00 the Medical morning. Branch ezetimibe 2-0 Yes [id number] 10mg Take 1 [facility] (ZETIA) 10 7-14 tablet by ity of mg tablet 00:00: mouth in [place] 00 the Medical morning. Branch ezetimibe 2-0 Yes [id number] 10mg Take 1 [facility] (ZETIA) 10 7-14 tablet by ity of mg tablet 00:00: mouth in [place] 00 the Medical morning. Branch ezetimibe 2-0 Yes [id number] 10mg Take 1 [facility] (ZETIA) 10 7-14 tablet by ity of mg tablet 00:00: mouth in [place] 00 the Medical morning. Branch ezetimibe 2-0 Yes [id number] 10mg Take 1 [facility] (ZETIA) 10 7-14 tablet by ity of mg tablet 00:00: mouth [place] 00 the Medical morning. Branch ezetimibe 2-0 Yes [id number] 10mg Take 1 Un [facility] (ZETIA) 10 7-14 tablet by ity of mg tablet 00:00: mouth in [place] 00 the Medical morning. Branch ezetimibe 2-0 Yes [id number] 10mg Take 1 [facility] (ZETIA) 10 7-14 tablet by ity of mg tablet 00:00: mouth in [place] 00 the Medical morning. Branch ezetimibe 2-0 Yes [id number] 10mg Take 1 [facility] (ZETIA) 10 7-14 tablet by ity of mg tablet 00:00: mouth in [place] 00 the Medical morning. Branch ezetimibe 2-0 Yes [id number] 10mg Take 1 [facility] (ZETIA) 10 7-14 tablet by ity of mg tablet 00:00: mouth in [place] 00 the Medical morning. Branch ezetimibe 2-0 Yes [id number] 10mg Take 1 [facility] (ZETIA) 10 7-14 tablet by ity of mg tablet 00:00: mouth [place] 00 the Medical morning. Branch ezetimibe 2-0 Yes [id number] 10mg Take 1 [facility] (ZETIA) 10 7-14 tablet by ity of mg tablet 00:00: mouth [place] 00 the Medical morning. Branch ezetimibe 2-0 Yes [id number] 10mg Take 1 [facility] (ZETIA) 10 7-14 tablet by ity of mg tablet 00:00: mouth [place] 00 the Medical morning. Branch ezetimibe 2-0 Yes [id number] 10mg Take 1 [facility] (ZETIA) 10 7-14 tablet by ity of mg tablet 00:00: mouth [place] 00 the Medical morning. Branch ezetimibe 2-0 Yes [id number] 10mg Take 1 [facility] (ZETIA) 10 7-14 tablet by ity of mg tablet 00:00: mouth [place] 00 the Medical morning. Branch ezetimibe 2-0 Yes [id number] 10mg Take 1 [facility] (ZETIA) 10 7-14 tablet by ity of mg tablet 00:00: mouth [place] 00 the Medical morning. Branch ezetimibe 2-0 Yes [id number] 10mg Take 1 [facility] (ZETIA) 10 7-14 tablet by ity of mg tablet 00:00: mouth [place] 00 the Medical morning. Branch ezetimibe 2-0 Yes [id number] 10mg Take 1 [facility] (ZETIA) 10 7-14 tablet by ity of mg tablet 00:00: mouth [place] 00 the Medical morning. Branch ezetimibe 2022-0 Yes [id number] 10mg Take 1 [facility] (ZETIA) 10 7-14 tablet by ity of mg tablet 00:00: mouth [place] 00 the Medical morning. Branch ezetimibe 2-0 Yes [id number] 10mg Take 1 [facility] (ZETIA) 10 7-14 tablet by ity of mg tablet 00:00: mouth [place] 00 the Medical morning. Branch ezetimibe 2022- No [id number] 10mg Take 1 U nivers (ZETIA) 10 7-14 03-28 tablet by ity of mg tablet 00:00: 00:00 mouth in [place] 00 :00 the Medical morning. Branch [place] [address] Yes [id number] TAKE 1 Univers 10 mEq CR 7-06 TABLET BY ity o f tablet 00:00: MOUTH [place] 00 EVERY DAY Medical [place] [address] Yes [id number] TAKE 1 [facility] 10 mEq CR 7-06 TABLET BY ity o f tablet 00:00: MOUTH [place] 00 EVERY DAY Medical Branch clopidogreL Yes [id number] 75mg Take 1 Univers 75 mg 7-06 tablet by ity of tablet 00:00: mouth [place] 00 daily. [place] [address] Yes [id number] TAKE 1 [facility] 10 mEq CR 7-06 TABLET BY ity o f tablet 00:00: MOUTH [place] 00 EVERY DAY Medical Branch clopidogreL 2021-0 Yes [id number] 75mg Take 1 [facility] 75 mg 7-06 tablet by ity of tablet 00:00: mouth [place] 00 daily. [place] [address] Yes [id number] TAKE 1 [facility] 10 mEq CR 7-06 TABLET BY ity o f tablet 00:00: MOUTH [place] 00 EVERY DAY Medical Branch clopidogreL 2021-0 Yes [id number] 75mg Take 1 [facility] 75 mg 7-06 tablet by ity of tablet 00:00: mouth [place] 00 daily. [place] [address] Yes [id number] TAKE 1 Univers 10 mEq CR 7-06 TABLET BY ity o f tablet 00:00: MOUTH [place] 00 EVERY DAY Medical [place] clopidogreL 2021-0 Yes [id number] 75mg Take 1 Univers 75 mg 7-06 tablet by ity of tablet 00:00: mouth [place] 00 daily. [place] [address] Yes [id number] TAKE 1 Univers 10 mEq CR 7-06 TABLET BY ity o f tablet 00:00: MOUTH [place] 00 EVERY DAY Medical [place] clopidogreL 2021-0 Yes [id number] 75mg Take 1 [facility] 75 mg 7-06 tablet by ity of tablet 00:00: mouth [place] 00 daily. [facility] 10 Yes [id number] TAKE 1 Univers 10 mEq CR 7-06 TABLET BY ity o f tablet 00:00: MOUTH [place] 00 EVERY DAY Medical [place] clopidogreL 2021-0 Yes [id number] 75mg Take 1 [facility] 75 mg 7-06 tablet by ity of tablet 00:00: mouth [place] 00 daily. [facility] 10 Yes [id number] TAKE 1 Univers 10 mEq CR 7-06 TABLET BY ity o f tablet 00:00: MOUTH [place] 00 EVERY DAY Medical [place] clopidogreL 2021-0 Yes [id number] 75mg Take 1 [facility] 75 mg 7-06 tablet by ity of tablet 00:00: mouth [place] 00 daily. [facility] 10 Yes [id number] TAKE 1 Univers 10 mEq CR 7-06 TABLET BY ity o f tablet 00:00: MOUTH [place] 00 EVERY DAY [facility] clopidogreL 2021-0 Yes [id number] 75mg Take 1 [facility] 75 mg 7-06 tablet by ity of tablet 00:00: mouth [place] 00 daily. [facility] 10 Yes [id number] TAKE 1 Univers 10 mEq CR 7-06 TABLET BY ity o f tablet 00:00: MOUTH [place] 00 EVERY DAY [facility] clopidogreL 2021-0 Yes [id number] 75mg Take 1 [facility] 75 mg 7-06 tablet by ity of tablet 00:00: mouth [place] 00 daily. [facility] 10 Yes [id number] TAKE 1 Univers 10 mEq CR 7-06 TABLET BY ity o f tablet 00:00: MOUTH [place] 00 EVERY DAY [facility] clopidogreL 2021-0 Yes [id number] 75mg Take 1 [facility] 75 mg 7-06 tablet by ity of tablet 00:00: mouth [place] 00 daily. [place] [address] Yes [id number] TAKE 1 [facility] 10 mEq CR 7-06 TABLET BY ity o f tablet 00:00: MOUTH [place] 00 EVERY DAY Medical [place] clopidogreL 2021-0 Yes [id number] 75mg Take 1 [facility] 75 mg 7-06 tablet by ity of tablet 00:00: mouth [place] 00 daily. [place] [address] Yes [id number] TAKE 1 [facility] 10 mEq CR 7-06 TABLET BY ity o f tablet 00:00: MOUTH [place] 00 EVERY DAY Medical Branch clopidogreL 2021-0 Yes [id number] 75mg Take 1 [facility] 75 mg 7-06 tablet by ity of tablet 00:00: mouth [place] 00 daily. [facility] 10 2021- Yes [id number] TAKE 1 Univers 10 mEq CR 7-06 TABLET BY ity o f tablet 00:00: MOUTH [place] 00 EVERY DAY Medical Branch clopidogreL 2021-0 Yes [id number] 75mg Take 1 [facility] 75 mg 7-06 tablet by ity of tablet 00:00: mouth [place] 00 daily. [facility] 10 Yes [id number] TAKE 1 Univers 10 mEq CR 7-06 TABLET BY ity o f tablet 00:00: MOUTH [place] 00 EVERY DAY Medical Branch clopidogreL 2021-0 Yes [id number] 75mg Take 1 [facility] 75 mg 7-06 tablet by ity of tablet 00:00: mouth [place] 00 daily. [facility] 10 Yes [id number] TAKE 1 Univers 10 mEq CR 7-06 TABLET BY ity o f tablet 00:00: MOUTH [place] 00 EVERY DAY Medical Branch clopidogreL 2021-0 Yes [id number] 75mg Take 1 [facility] 75 mg 7-06 tablet by ity of tablet 00:00: mouth [place] 00 daily. [facility] 10 2021- Yes [id number] TAKE 1 Univers 10 mEq CR 7-06 TABLET BY ity o f tablet 00:00: MOUTH [place] 00 EVERY DAY Medical Branch clopidogreL 2021-0 Yes [id number] 75mg Take 1 [facility] 75 mg 7-06 tablet by ity of tablet 00:00: mouth [place] 00 daily. [facility] 10 Yes [id number] TAKE 1 Univers 10 mEq CR 7-06 TABLET BY ity o f tablet 00:00: MOUTH [place] 00 EVERY DAY Medical Branch clopidogreL 2021-0 Yes [id number] 75mg Take 1 [facility] 75 mg 7-06 tablet by ity of tablet 00:00: mouth [place] 00 daily. [facility] 10 2021- Yes [id number] TAKE 1 Univers 10 mEq CR 7-06 TABLET BY ity o f tablet 00:00: MOUTH [place] 00 EVERY DAY Medical [place] clopidogreL 2021-0 Yes [id number] 75mg Take 1 [facility] 75 mg 7-06 tablet by ity of tablet 00:00: mouth [place] 00 daily. [place] [address] Yes [id number] TAKE 1 [facility] 10 mEq CR 7-06 TABLET BY ity o f tablet 00:00: MOUTH [place] 00 EVERY DAY Medical Branch clopidogreL 2021-0 Yes [id number] 75mg Take 1 [facility] 75 mg 7-06 tablet by ity of tablet 00:00: mouth [place] 00 daily. [place] [address] Yes [id number] TAKE 1 [facility] 10 mEq CR 7-06 TABLET BY ity o f tablet 00:00: MOUTH [place] 00 EVERY DAY Medical [place] clopidogreL 2021-0 Yes [id number] 75mg Take 1 [facility] 75 mg 7-06 tablet by ity of tablet 00:00: mouth [place] 00 daily. [place] [address] Yes [id number] TAKE 1 [facility] 10 mEq CR 7-06 TABLET BY ity o f tablet 00:00: MOUTH [place] 00 EVERY DAY Medical [place] clopidogreL 2021-0 Yes [id number] 75mg Take 1 [facility] 75 mg 7-06 tablet by ity of tablet 00:00: mouth [place] 00 daily. [facility] 10 Yes [id number] TAKE 1 Univers 10 mEq CR 7-06 TABLET BY ity o f tablet 00:00: MOUTH [place] 00 EVERY DAY Medical [place] clopidogreL 2021-0 Yes [id number] 75mg Take 1 [facility] 75 mg 7-06 tablet by ity of tablet 00:00: mouth [place] 00 daily. [place] [address] 0 Yes [id number] TAKE 1 [facility] 10 mEq CR 7-06 TABLET BY ity o f tablet 00:00: MOUTH [place] 00 EVERY DAY Medical [place] clopidogreL 2021-0 Yes [id number] 75mg Take 1 [facility] 75 mg 7-06 tablet by [facility] of tablet 00:00: mouth [place] 00 daily. [place] [address] Yes [id number] TAKE 1 [facility] 10 mEq CR 7-06 TABLET BY ity o f tablet 00:00: MOUTH [place] 00 EVERY DAY Medical [place] clopidogreL 2021-0 Yes [id number] 75mg Take 1 [facility] 75 mg 7-06 tablet by [facility] of tablet 00:00: mouth [place] 00 daily. [place] [address] Yes [id number] TAKE 1 [facility] 10 mEq CR 7-06 TABLET BY ity o f tablet 00:00: MOUTH [place] 00 EVERY DAY [facility] clopidogreL 0 Yes [id number] 75mg Take 1 [facility] 75 mg 7-06 tablet by [facility] of tablet 00:00: mouth [place] 00 daily. [facility] clopidogreL 0 Yes [id number] 75mg Take 1 [facility] 75 mg 7-06 tablet by [facility] of tablet 00:00: mouth [place] 00 daily. [facility] clopidogreL 0 Yes [id number] 75mg Take 1 [facility] 75 mg 7-06 tablet by [facility] of tablet 00:00: mouth [place] 00 daily. [facility] clopidogreL 0 Yes [id number] 75mg Take 1 [facility] 75 mg 7-06 tablet by [facility] of tablet 00:00: mouth [place] 00 daily. [facility] clopidogreL 0 2022- No [id number] 75mg Take 1 [facility] 75 mg 7-06 01-17 tablet by ity of tablet 00:00: 00:00 mouth [place] 00 :00 daily. [facility] 10 2022- No [id number] TAKE 1 [facility] 10 mEq CR 7-06 12-28 TABLET BY ity of tablet 00:00: 00:00 MOUTH [place] 00 :00 EVERY DAY Medical Branch losartan-hy 0 Yes [id number] 1{tbl} Take 1 [facility] drochloroth 6-02 tablet by ity of iazide 00:00: mouth [place] 100-25 mg 00 daily. Medical per tablet Branch losartan-hy 0 Yes [id number] 1{tbl} Take 1 [facility] drochloroth 6-02 tablet by ity of iazide 00:00: mouth [place] 100-25 mg 00 daily. Medical per tablet Branch losartan-hy 2021-0 Yes [id number] 1{tbl} Take 1 [facility] drochloroth 6-02 tablet by ity of iazide 00:00: mouth [place] 100-25 mg 00 daily. Medical per tablet Branch losartan-hy 0 Yes [id number] 1{tbl} Take 1 [facility] drochloroth 6-02 tablet by ity of iazide 00:00: mouth [place] 100-25 mg 00 daily. Medical per tablet Branch losartan-hy Yes [id number] 1{tbl} Take 1 [facility] drochloroth 6-02 tablet by ity of iazide 00:00: mouth [place] 100-25 mg 00 daily. Medical per tablet Branch losartan-hy 2021-0 Yes [id number] 1{tbl} Take 1 [facility] drochloroth 6-02 tablet by ity of iazide 00:00: mouth [place] 100-25 mg 00 daily. Medical per tablet Branch losartan-hy 2021-0 Yes [id number] 1{tbl} Take 1 [facility] drochloroth 6-02 tablet by ity of iazide 00:00: mouth [place] 100-25 mg 00 daily. Medical per tablet Branch losartan-hy 0 Yes [id number] 1{tbl} Take 1 [facility] drochloroth 6-02 tablet by ity of iazide 00:00: mouth [place] 100-25 mg 00 daily. Medical per tablet Branch losartan-hy 0 Yes [id number] 1{tbl} Take 1 [facility] drochloroth 6-02 tablet by ity of iazide 00:00: mouth [place] 100-25 mg 00 daily. Medical per tablet Branch losartan-hy 0 Yes [id number] 1{tbl} Take 1 [facility] drochloroth 6-02 tablet by ity of iazide 00:00: mouth [place] 100-25 mg 00 daily. Medical per tablet Branch losartan-hy 0 Yes [id number] 1{tbl} Take 1 [facility] drochloroth 6-02 tablet by ity of iazide 00:00: mouth [place] 100-25 mg 00 daily. Medical per tablet Branch losartan-hy 0 Yes [id number] 1{tbl} Take 1 [facility] drochloroth 6-02 tablet by ity of iazide 00:00: mouth [place] 100-25 mg 00 daily. Medical per tablet Branch losartan-hy 2021-0 Yes [id number] 1{tbl} Take 1 [facility] drochloroth 6-02 tablet by ity of iazide 00:00: mouth [place] 100-25 mg 00 daily. Medical per tablet Branch losartan-hy 2021-0 Yes [id number] 1{tbl} Take 1 [facility] drochloroth 6-02 tablet by ity of iazide 00:00: mouth [place] 100-25 mg 00 daily. Medical per tablet Branch losartan-hy 2021-0 2021- No [id number] 1{tbl} Take 1 [facility] drochloroth 6-02 11-06 tablet by it y of iazide 00:00: 00:00 mouth [place] 100-25 mg 00 :00 daily. Medical per tablet Branch losartan-hy 2021-2021- No [id number] 1{tbl} Take 1 [facility] drochloroth 5-31 05-31 tablet by it y of iazide 12:38: 00:00 mouth [place] 100-25 mg 00 :00 daily. Medical per tablet Branch losartan-hy Yes [id number] 1{tbl} Take 1 [facility] drochloroth 5-31 tablet by ity of iazide 00:00: mouth [place] 100-25 mg 00 daily. Medical per tablet Branch losartan-hy 2021-2021- No [id number] 1{tbl} Take 1 [facility] drochloroth 5-31 06-02 tablet by it y of iazide 00:00: 00:00 mouth [place] 100-25 mg 00 :00 daily. Medical per tablet Branch metoprolol 2021- No 25mg Take 25 mg [facility] tartrate 25 5-16 05-16 by mouth 2 i ty of mg tablet 15:00: 00:00 (two) [place] 41 :00 times Medical daily. Branch metoprolol 2021- No 25mg Take 25 mg [facility] tartrate 25 5-16 05-16 by mouth 2 i ty of mg tablet 15:00: 00:00 (two) [place] 41 :00 times Medical daily. Branch metoprolol Yes [id number] 25mg Take 1 U nivers tartrate 25 5-16 tablet by ity of mg tablet 00:00: mouth 2 [place] 00 (two) Medical times Branch daily. metoprolol Yes [id number] 25mg Take 1 U nivers tartrate 25 5-16 tablet by ity of mg tablet 00:00: mouth 2 [place] (two) Medical times Branch daily. metoprolol 0 Yes [id number] 25mg Take 1 U nivers tartrate 25 5-16 tablet by ity of mg tablet 00:00: mouth 2 [place] 00 (two) Medical times Branch daily. metoprolol 2021- Yes [id number] 25mg Take 1 U nivers tartrate 25 5-16 tablet by ity of mg tablet 00:00: mouth 2 [place] 00 (two) Medical times Branch daily. metoprolol 2-0 Yes [id number] 25mg Take 1 U nivers tartrate 25 5-16 tablet by ity of mg tablet 00:00: mouth (two) Medical times Branch daily. metoprolol 2021-0 Yes [id number] 25mg Take 1 U nivers tartrate 25 5-16 tablet by ity of mg tablet 00:00: mouth (two) Medical times Branch daily. metoprolol 2-0 Yes [id number] 25mg Take 1 U nivers tartrate 25 5-16 tablet by ity of mg tablet 00:00: mouth (two) Medical times Branch daily. metoprolol 2021-0 Yes [id number] 25mg Take 1 U nivers tartrate 25 5-16 tablet by ity of mg tablet 00:00: mouth (two) Medical times Branch daily. metoprolol 2021-0 Yes [id number] 25mg Take 1 U nivers tartrate 25 5-16 tablet by ity of mg tablet 00:00: [facility] (two) Medical times Branch daily. metoprolol 2021-0 Yes [id number] 25mg Take 1 U nivers tartrate 25 5-16 tablet by ity of mg tablet 00:00: [facility] () Medical times Branch daily. metoprolol 2021-0 Yes [id number] 25mg Take 1 U nivers tartrate 25 5-16 tablet by ity of mg tablet 00:00: mouth (two) Medical times Branch daily. metoprolol 2-0 Yes [id number] 25mg Take 1 U nivers tartrate 25 5-16 tablet by ity of mg tablet 00:00: mouth (two) Medical times Branch daily. metoprolol 2-0 Yes [id number] 25mg Take 1 U nivers tartrate 25 5-16 tablet by ity of mg tablet 00:00: mouth (two) Medical times Branch daily. metoprolol 2-0 Yes [id number] 25mg Take 1 U nivers tartrate 25 5-16 tablet by ity of mg tablet 00:00: mouth (two) Medical times Branch daily. metoprolol 2-0 Yes [id number] 25mg Take 1 U nivers tartrate 25 5-16 tablet by ity of mg tablet 00:00: mouth 2 (two) Medical times Branch daily. metoprolol 2021-0 Yes [id number] 25mg Take 1 U nivers tartrate 25 5-16 tablet by ity of mg tablet 00:00: mouth 2 (two) Medical times Branch daily. metoprolol 2021-0 Yes [id number] 25mg Take 1 U nivers tartrate 25 5-16 tablet by ity of mg tablet 00:00: mouth 2 (two) Medical times Branch daily. metoprolol 2021-0 Yes [id number] 25mg Take 1 U nivers tartrate 25 5-16 tablet by ity of mg tablet 00:00: mouth 2 (two) Medical times Branch daily. metoprolol 2021-0 2021- No [id number] 25mg Take 1 [facility] tartrate 25 5-16 08-15 tablet by it y of mg tablet 00:00: 00:[place] mouth [place] (two) Medical times Branch daily. furosemide 2021-0 Yes [id number] 20mg Take 1 [facility] 20 mg 5-12 tablet by ity of tablet 00:00: mouth 00 daily. Medical Branch furosemide 2021-0 Yes [id number] 20mg Take 1 [facility] 20 mg 5-12 tablet by ity of tablet 00:00: mouth 00 daily. Medical Branch furosemide 2021-0 Yes [id number] 20mg Take 1 [facility] 20 mg 5-12 tablet by ity of tablet 00:00: mouth [place] 00 daily. Medical Branch furosemide 2021-0 Yes [id number] 20mg Take 1 [facility] 20 mg 5-12 tablet by ity of tablet 00:00: mouth [place] 00 daily. Medical Branch furosemide 2021-0 Yes [id number] 20mg Take 1 [facility] 20 mg 5-12 tablet by ity of tablet 00:00: mouth [place] 00 daily. Medical Branch furosemide 2021-0 Yes [id number] 20mg Take 1 [facility] 20 mg 5-12 tablet by ity of tablet 00:00: mouth [place] 00 daily. Medical Branch furosemide 2021-0 Yes [id number] 20mg Take 1 [facility] 20 mg 5-12 tablet by ity of tablet 00:00: mouth [place] 00 daily. Medical Branch furosemide 2021-0 Yes [id number] 20mg Take 1 [facility] 20 mg 5-12 tablet by ity of tablet 00:00: mouth [place] 00 daily. Medical Branch furosemide 2-0 Yes [id number] 20mg Take 1 [facility] 20 mg 5-12 tablet by ity of tablet 00:00: mouth [place] 00 daily. Medical Branch furosemide 2-0 Yes [id number] 20mg Take 1 [facility] 20 mg 5-12 tablet by ity of tablet 00:00: mouth [place] 00 daily. Medical Branch furosemide 2021-0 Yes [id number] 20mg Take 1 [facility] 20 mg 5-12 tablet by ity of tablet 00:00: mouth [place] 00 daily. Medical Branch furosemide 2021-0 Yes [id number] 20mg Take 1 [facility] 20 mg 5-12 tablet by ity of tablet 00:00: mouth [place] 00 daily. Medical Branch furosemide 2021-0 Yes [id number] 20mg Take 1 [facility] 20 mg 5-12 tablet by ity of tablet 00:00: mouth [place] 00 daily. Medical Branch furosemide 2021-0 Yes [id number] 20mg Take 1 [facility] 20 mg 5-12 tablet by ity of tablet 00:00: mouth [place] 00 daily. Medical Branch furosemide 2021-0 Yes [id number] 20mg Take 1 [facility] 20 mg 5-12 tablet by ity of tablet 00:00: mouth [place] 00 daily. Medical Branch furosemide 2021-0 Yes [id number] 20mg Take 1 [facility] 20 mg 5-12 tablet by ity of tablet 00:00: mouth [place] 00 daily. Medical Branch furosemide 2-0 Yes [id number] 20mg Take 1 [facility] 20 mg 5-12 tablet by ity of tablet 00:00: mouth [place] 00 daily. Medical Branch furosemide 2-0 Yes [id number] 20mg Take 1 [facility] 20 mg 5-12 tablet by ity of tablet 00:00: mouth [place] 00 daily. Medical Branch furosemide 2-0 Yes [id number] 20mg Take 1 [facility] 20 mg 5-12 tablet by ity of tablet 00:00: mouth [place] 00 daily. Medical Branch furosemide 2-0 Yes [id number] 20mg Take 1 [facility] 20 mg 5-12 tablet by ity of tablet 00:00: mouth [place] 00 daily. Medical Branch furosemide 2-0 Yes [id number] 20mg Take 1 [facility] 20 mg 5-12 tablet by ity of tablet 00:00: mouth [place] 00 daily. Medical Branch furosemide 2021-0 Yes [id number] 20mg Take 1 [facility] 20 mg 5-12 tablet by ity of tablet 00:00: mouth [place] 00 daily. [facility] furosemide 2021-0 Yes [id number] 20mg Take 1 [facility] 20 mg 5-12 tablet by ity of tablet 00:00: mouth [place] 00 daily. [facility] furosemide 2021-0 Yes [id number] 20mg Take 1 [facility] 20 mg 5-12 tablet by ity of tablet 00:00: mouth [place] 00 daily. [facility] furosemide 2021-0 Yes [id number] 20mg Take 1 [facility] 20 mg 5-12 tablet by ity of tablet 00:00: mouth [place] 00 daily. [facility] furosemide 2021-0 2021- No [id number] 20mg Take 1 [facility] 20 mg 5-12 -03 tablet by ity of tablet 00:00: 00:00 mouth [place] 00 :00 daily. [facility] metFORMIN 2021-0 Yes [id number] 1000mg Take 1 [facility] 1,000 mg 5-02 tablet by ity of tablet 00:00: mouth [place] 00 daily. [facility] glimepiride 2021-0 Yes [id number] 2mg Take 1 [facility] 2 mg tablet 5-02 tablet by ity of 00:00: mouth [place] 00 daily with Medical breakfast. Branch metFORMIN 2021-0 Yes [id number] 1000mg Take 1 [facility] 1,000 mg 5-02 tablet by ity of tablet 00:00: mouth [place] 00 daily. [facility] glimepiride 2021-0 Yes [id number] 2mg Take 1 [facility] 2 mg tablet 5-02 tablet by ity of 00:00: mouth [place] 00 daily with Medical breakfast. Branch metFORMIN 2021-0 Yes [id number] 1000mg Take 1 [facility] 1,000 mg 5-02 tablet by ity of tablet 00:00: mouth [place] 00 daily. [facility] glimepiride 2021-0 Yes [id number] 2mg Take 1 [facility] 2 mg tablet 5-02 tablet by ity of 00:00: mouth [place] 00 daily with Medical breakfast. [place] metFORMIN 2021-0 Yes [id number] 1000mg Take 1 [facility] 1,000 mg 5-02 tablet by ity of tablet 00:00: mouth [place] 00 daily. [facility] glimepiride 2021-0 Yes [id number] 2mg Take 1 [facility] 2 mg tablet 5-02 tablet by ity of 00:00: mouth [place] 00 daily with Medical breakfast. Branch metFORMIN 2021-0 Yes [id number] 1000mg Take 1 [facility] 1,000 mg 5-02 tablet by ity of tablet 00:00: mouth [place] 00 daily. [facility] glimepiride 2021-0 Yes [id number] 2mg Take 1 [facility] 2 mg tablet 5-02 tablet by ity of 00:00: mouth [place] 00 daily with Medical breakfast. Branch metFORMIN 2021-0 Yes [id number] 1000mg Take 1 [facility] 1,000 mg 5-02 tablet by ity of tablet 00:00: mouth [place] 00 daily. [facility] glimepiride 2021-0 Yes [id number] 2mg Take 1 [facility] 2 mg tablet 5-02 tablet by ity of 00:00: mouth [place] 00 daily with Medical breakfast. [place] metFORMIN 2021-0 Yes [id number] 1000mg Take 1 [facility] 1,000 mg 5-02 tablet by ity of tablet 00:00: mouth [place] 00 daily. [facility] glimepiride 2021-0 Yes [id number] 2mg Take 1 [facility] 2 mg tablet 5-02 tablet by ity of 00:00: mouth [place] 00 daily with Medical breakfast. [place] metFORMIN 2021-0 Yes [id number] 1000mg Take 1 [facility] 1,000 mg 5-02 tablet by ity of tablet 00:00: mouth [place] 00 daily. [facility] glimepiride 2021-0 Yes [id number] 2mg Take 1 [facility] 2 mg tablet 5-02 tablet by ity of 00:00: mouth [place] 00 daily with Medical breakfast. [place] metFORMIN 2021-0 Yes [id number] 1000mg Take 1 [facility] 1,000 mg 5-02 tablet by ity of tablet 00:00: mouth [place] 00 daily. [facility] glimepiride 2021-0 Yes [id number] 2mg Take 1 [facility] 2 mg tablet 5-02 tablet by ity of 00:00: mouth [place] 00 daily with Medical breakfast. [place] metFORMIN 2021-0 Yes [id number] 1000mg Take 1 [facility] 1,000 mg 5-02 tablet by ity of tablet 00:00: mouth [place] 00 daily. [facility] glimepiride 2021-0 Yes [id number] 2mg Take 1 [facility] 2 mg tablet 5-02 tablet by ity of 00:00: mouth [place] 00 daily with Medical breakfast. [place] metFORMIN 2021-0 Yes [id number] 1000mg Take 1 [facility] 1,000 mg 5-02 tablet by ity of tablet 00:00: mouth [place] 00 daily. [facility] glimepiride 2021-0 Yes [id number] 2mg Take 1 [facility] 2 mg tablet 5-02 tablet by ity of 00:00: mouth [place] 00 daily with Medical breakfast. Branch metFORMIN 2021-0 Yes [id number] 1000mg Take 1 [facility] 1,000 mg 5-02 tablet by ity of tablet 00:00: mouth [place] 00 daily. [facility] glimepiride 2021-0 Yes [id number] 2mg Take 1 [facility] 2 mg tablet 5-02 tablet by ity of 00:00: mouth [place] 00 daily with Medical breakfast. [place] metFORMIN 2021-0 Yes [id number] 1000mg Take 1 [facility] 1,000 mg 5-02 tablet by ity of tablet 00:00: mouth [place] 00 daily. [facility] glimepiride 2021-0 Yes [id number] 2mg Take 1 [facility] 2 mg tablet 5-02 tablet by ity of 00:00: mouth [place] 00 daily with Medical breakfast. [place] metFORMIN 2021-0 Yes [id number] 1000mg Take 1 [facility] 1,000 mg 5-02 tablet by ity of tablet 00:00: mouth [place] 00 daily. [facility] glimepiride 2021-0 Yes [id number] 2mg Take 1 [facility] 2 mg tablet 5-02 tablet by ity of 00:00: mouth [place] 00 daily with Medical breakfast. [place] metFORMIN 2021-0 Yes [id number] 1000mg Take 1 [facility] 1,000 mg 5-02 tablet by ity of tablet 00:00: mouth [place] 00 daily. [facility] glimepiride 2021-0 Yes [id number] 2mg Take 1 [facility] 2 mg tablet 5-02 tablet by ity of 00:00: mouth [place] 00 daily with Medical breakfast. [place] metFORMIN 2021-0 Yes [id number] 1000mg Take 1 [facility] 1,000 mg 5-02 tablet by ity of tablet 00:00: mouth [place] 00 daily. [facility] glimepiride 2021-0 Yes [id number] 2mg Take 1 [facility] 2 mg tablet 5-02 tablet by ity of 00:00: mouth [place] 00 daily with Medical breakfast. [place] metFORMIN 2021-0 Yes [id number] 1000mg Take 1 [facility] 1,000 mg 5-02 tablet by ity of tablet 00:00: mouth [place] 00 daily. [facility] glimepiride 2021-0 Yes [id number] 2mg Take 1 [facility] 2 mg tablet 5-02 tablet by ity of 00:00: mouth [place] 00 daily with Medical breakfast. Branch metFORMIN 2021-0 Yes [id number] 1000mg Take 1 [facility] 1,000 mg 5-02 tablet by ity of tablet 00:00: mouth [place] 00 daily. [facility] glimepiride 2021-0 Yes [id number] 2mg Take 1 [facility] 2 mg tablet 5-02 tablet by ity of 00:00: mouth [place] 00 daily with Medical breakfast. Branch metFORMIN 2021-0 Yes [id number] 1000mg Take 1 [facility] 1,000 mg 5-02 tablet by ity of tablet 00:00: mouth [place] 00 daily. [facility] glimepiride 2021-0 Yes [id number] 2mg Take 1 [facility] 2 mg tablet 5-02 tablet by ity of 00:00: mouth [place] 00 daily with Medical breakfast. Branch metFORMIN 2021-0 Yes [id number] 1000mg Take 1 [facility] 1,000 mg 5-02 tablet by ity of tablet 00:00: mouth [place] 00 daily. [facility] glimepiride 2021-0 Yes [id number] 2mg Take 1 [facility] 2 mg tablet 5-02 tablet by ity of 00:00: mouth [place] 00 daily with Medical breakfast. Branch metFORMIN 2021-0 Yes [id number] 1000mg Take 1 [facility] 1,000 mg 5-02 tablet by ity of tablet 00:00: mouth [place] 00 daily. [facility] glimepiride 2021-0 Yes [id number] 2mg Take 1 [facility] 2 mg tablet 5-02 tablet by ity of 00:00: mouth [place] 00 daily with Medical breakfast. Branch metFORMIN 2021-0 Yes [id number] 1000mg Take 1 [facility] 1,000 mg 5-02 tablet by ity of tablet 00:00: mouth [place] 00 daily. [facility] glimepiride 2021-0 Yes [id number] 2mg Take 1 [facility] 2 mg tablet 5-02 tablet by ity of 00:00: mouth [place] 00 daily with Medical breakfast. Branch metFORMIN 2021-0 Yes [id number] 1000mg Take 1 [facility] 1,000 mg 5-02 tablet by ity of tablet 00:00: mouth [place] 00 daily. [facility] glimepiride 2021-0 Yes [id number] 2mg Take 1 [facility] 2 mg tablet 5-02 tablet by ity of 00:00: mouth [place] 00 daily with Medical breakfast. Branch metFORMIN 2021-0 Yes [id number] 1000mg Take 1 [facility] 1,000 mg 5-02 tablet by ity of tablet 00:00: mouth [place] 00 daily. [facility] glimepiride 2021-0 Yes [id number] 2mg Take 1 [facility] 2 mg tablet 5-02 tablet by ity of 00:00: mouth [place] 00 daily with Medical breakfast. Branch metFORMIN 2021-0 Yes [id number] 1000mg Take 1 [facility] 1,000 mg 5-02 tablet by ity of tablet 00:00: mouth [place] 00 daily. [facility] glimepiride 2021-0 Yes [id number] 2mg Take 1 [facility] 2 mg tablet 5-02 tablet by ity of 00:00: mouth [place] 00 daily with Medical breakfast. Branch metFORMIN 2021-0 Yes [id number] 1000mg Take 1 [facility] 1,000 mg 5-02 tablet by ity of tablet 00:00: mouth [place] 00 daily. [facility] glimepiride 2021-0 Yes [id number] 2mg Take 1 [facility] 2 mg tablet 5-02 tablet by ity of 00:00: mouth [place] 00 daily with Medical breakfast. [place] metFORMIN 2021-0 Yes [id number] 1000mg Take 1 [facility] 1,000 mg 5-02 tablet by ity of tablet 00:00: mouth [place] 00 daily. [facility] glimepiride 2021-0 Yes [id number] 2mg Take 1 [facility] 2 mg tablet 5-02 tablet by ity of 00:00: mouth [place] 00 daily with Medical breakfast. [place] metFORMIN 2021-0 Yes [id number] 1000mg Take 1 [facility] 1,000 mg 5-02 tablet by ity of tablet 00:00: mouth [place] 00 daily. [facility] glimepiride 2021-0 Yes [id number] 2mg Take 1 [facility] 2 mg tablet 5-02 tablet by ity of 00:00: mouth [place] 00 daily with Medical breakfast. [place] metFORMIN 2021-0 Yes [id number] 1000mg Take 1 [facility] 1,000 mg 5-02 tablet by ity of tablet 00:00: mouth [place] 00 daily. [facility] glimepiride 2021-0 Yes [id number] 2mg Take 1 [facility] 2 mg tablet 5-02 tablet by ity of 00:00: mouth [place] 00 daily with Medical breakfast. Branch metFORMIN 2021-0 Yes [id number] 1000mg Take 1 [facility] 1,000 mg 5-02 tablet by ity of tablet 00:00: mouth [place] 00 daily. [facility] glimepiride 2021-0 Yes [id number] 2mg Take 1 [facility] 2 mg tablet 5-02 tablet by ity of 00:00: mouth [place] 00 daily with Medical breakfast. Branch metFORMIN 2021-0 Yes [id number] 1000mg Take 1 [facility] 1,000 mg 5-02 tablet by ity of tablet 00:00: mouth [place] 00 daily. [facility] glimepiride 2021-0 Yes [id number] 2mg Take 1 [facility] 2 mg tablet 5-02 tablet by ity of 00:00: mouth [place] 00 daily with Medical breakfast. [place] metFORMIN 2021-0 Yes [id number] 1000mg Take 1 [facility] 1,000 mg 5-02 tablet by ity of tablet 00:00: mouth [place] 00 daily. [facility] glimepiride 2021-0 Yes [id number] 2mg Take 1 [facility] 2 mg tablet 5-02 tablet by ity of 00:00: mouth [place] 00 daily with Medical breakfast. [place] metFORMIN 2021-0 Yes [id number] 1000mg Take 1 [facility] 1,000 mg 5-02 tablet by ity of tablet 00:00: mouth [place] 00 daily. [facility] glimepiride 2021-0 Yes [id number] 2mg Take 1 [facility] 2 mg tablet 5-02 tablet by ity of 00:00: mouth [place] 00 daily with Medical breakfast. [place] metFORMIN 2021-0 Yes [id number] 1000mg Take 1 [facility] 1,000 mg 5-02 tablet by ity of tablet 00:00: mouth [place] 00 daily. [facility] glimepiride 2021-0 Yes [id number] 2mg Take 1 [facility] 2 mg tablet 5-02 tablet by ity of 00:00: mouth [place] 00 daily with Medical breakfast. [place] metFORMIN 2021-0 Yes [id number] 1000mg Take 1 [facility] 1,000 mg 5-02 tablet by ity of tablet 00:00: mouth [place] 00 daily. [facility] glimepiride 2021-0 Yes [id number] 2mg Take 1 [facility] 2 mg tablet 5-02 tablet by ity of 00:00: mouth [place] 00 daily with Medical breakfast. [place] metFORMIN 2021-0 Yes [id number] 1000mg Take 1 [facility] 1,000 mg 5-02 tablet by ity of tablet 00:00: mouth [place] 00 daily. [facility] glimepiride 2021-0 Yes [id number] 2mg Take 1 [facility] 2 mg tablet 5-02 tablet by ity of 00:00: mouth [place] 00 daily with Medical breakfast. Branch metFORMIN 2021-0 Yes [id number] 1000mg Take 1 [facility] 1,000 mg 5-02 tablet by ity of tablet 00:00: mouth [place] 00 daily. [facility] glimepiride 2021-0 Yes [id number] 2mg Take 1 [facility] 2 mg tablet 5-02 tablet by ity of 00:00: mouth [place] 00 daily with Medical breakfast. [place] metFORMIN 2021-0 Yes [id number] 1000mg Take 1 [facility] 1,000 mg 5-02 tablet by ity of tablet 00:00: mouth [place] 00 daily. [facility] glimepiride 2021-0 Yes [id number] 2mg Take 1 [facility] 2 mg tablet 5-02 tablet by ity of 00:00: mouth [place] 00 daily with Medical breakfast. [place] metFORMIN 2021-0 Yes [id number] 1000mg Take 1 [facility] 1,000 mg 5-02 tablet by ity of tablet 00:00: mouth [place] 00 daily. [facility] glimepiride 2021-0 Yes [id number] 2mg Take 1 [facility] 2 mg tablet 5-02 tablet by ity of 00:00: mouth [place] 00 daily with Medical breakfast. [place] metFORMIN 2021-0 Yes [id number] 1000mg Take 1 [facility] 1,000 mg 5-02 tablet by ity of tablet 00:00: mouth [place] 00 daily. [facility] glimepiride 2021-0 Yes [id number] 2mg Take 1 [facility] 2 mg tablet 5-02 tablet by ity of 00:00: mouth [place] 00 daily with Medical breakfast. [place] metFORMIN 2021-0 Yes [id number] 1000mg Take 1 [facility] 1,000 mg 5-02 tablet by ity of tablet 00:00: mouth [place] 00 daily. [facility] glimepiride 2021-0 Yes [id number] 2mg Take 1 [facility] 2 mg tablet 5-02 tablet by ity of 00:00: mouth [place] 00 daily with Medical breakfast. [place] metFORMIN 2021-0 Yes [id number] 1000mg Take 1 [facility] 1,000 mg 5-02 tablet by ity of tablet 00:00: mouth [place] 00 daily. [facility] glimepiride 2021-0 Yes [id number] 2mg Take 1 [facility] 2 mg tablet 5-02 tablet by ity of 00:00: mouth [place] 00 daily with Medical breakfast. Branch metFORMIN 2021-0 Yes [id number] 1000mg Take 1 [facility] 1,000 mg 5-02 tablet by ity of tablet 00:00: mouth [place] 00 daily. [facility] glimepiride 2021-0 Yes [id number] 2mg Take 1 [facility] 2 mg tablet 5-02 tablet by ity of 00:00: mouth [place] 00 daily with Medical breakfast. Branch metFORMIN 2021-0 Yes [id number] 1000mg Take 1 [facility] 1,000 mg 5-02 tablet by ity of tablet 00:00: mouth [place] 00 daily. [facility] glimepiride 2021-0 Yes [id number] 2mg Take 1 [facility] 2 mg tablet 5-02 tablet by ity of 00:00: mouth [place] 00 daily with Medical breakfast. Branch metFORMIN 2021-0 Yes [id number] 1000mg Take 1 [facility] 1,000 mg 5-02 tablet by ity of tablet 00:00: mouth [place] 00 daily. [facility] glimepiride 2021-0 Yes [id number] 2mg Take 1 [facility] 2 mg tablet 5-02 tablet by ity of 00:00: mouth [place] 00 daily with Medical breakfast. Branch metFORMIN 2021-0 Yes [id number] 1000mg Take 1 [facility] 1,000 mg 5-02 tablet by ity of tablet 00:00: mouth [place] 00 daily. [facility] glimepiride 2021-0 Yes [id number] 2mg Take 1 [facility] 2 mg tablet 5-02 tablet by ity of 00:00: mouth [place] 00 daily with Medical breakfast. [facility]FORMIN 2021-0 Yes [id number] 1000mg Take 1 [facility] 1[facility]000 mg 5-02 tablet by [facility] tablet 00:00: mouth [place] 00 daily. [facility] glimepiride 2021-0 Yes [id number] 2mg Take 1 [facility] 2 mg tablet 5-02 tablet by [facility] of 00:00: mouth [place] 00 daily with Medical breakfast. [facility]FORMIN 2021-0 Yes [id number] 1000mg Take 1 [facility] 1,000 mg 5-02 tablet by [facility] of tablet 00:00: mouth [place] 00 daily. [facility] glimepiride 2021-0 Yes [id number] 2mg Take 1 [facility] 2 mg tablet 5-02 tablet by [facility] of 00:00: mouth [place] 00 daily with Medical breakfast. [facility]FORMIN 2021-0 Yes [id number] 1000mg Take 1 [facility] 1,000 mg 5-02 tablet by [facility] of tablet 00:00: mouth [place] 00 daily. [facility] glimepiride 2021-0 Yes [id number] 2mg Take 1 [facility] 2 mg tablet 5-02 tablet by [facility] of 00:00: mouth [place] 00 daily with Medical breakfast. [facility]FORMIN 2021-0 Yes [id number] 1000mg Take 1 [facility] 1,000 mg 5-02 tablet by [facility] of tablet 00:00: mouth [place] 00 daily. [facility] glimepiride 2021-0 Yes [id number] 2mg Take 1 [facility] 2 mg tablet 5-02 tablet by [facility] of 00:00: mouth [place] 00 daily with Medical breakfast. [facility]FORMIN 2021-0 Yes [id number] 1000mg Take 1 [facility] 1,000 mg 5-02 tablet by [facility] of tablet 00:00: mouth [place] 00 daily. [facility] glimepiride 2021-0 Yes [id number] 2mg Take 1 [facility] 2 mg tablet 5-02 tablet by [facility] of 00:00: mouth [place] 00 daily with Medical breakfast. [place] metFORMIN 2021-0 Yes [id number] 1000mg Take 1 [facility] 1,000 mg 5-02 tablet by [facility] of tablet 00:00: mouth [place] 00 daily. [facility] glimepiride 2021-0 Yes [id number] 2mg Take 1 [facility] 2 mg tablet 5-02 tablet by [facility] of 00:00: mouth [place] 00 daily with Medical breakfast. [place] metFORMIN 2021-0 Yes [id number] 1000mg Take 1 [facility] 1,000 mg 5-02 tablet by [facility] of tablet 00:00: mouth [place] 00 daily. [facility] glimepiride 2021-0 Yes [id number] 2mg Take 1 [facility] 2 mg tablet 5-02 tablet by [facility] of 00:00: mouth [place] 00 daily with Medical breakfast. [place] metFORMIN 2021-0 Yes [id number] 1000mg Take 1 [facility] 1,000 mg 5-02 tablet by [facility] of tablet 00:00: mouth [place] 00 daily. [facility] glimepiride 2021-0 Yes [id number] 2mg Take 1 [facility] 2 mg tablet 5-02 tablet by [facility] of 00:00: mouth [place] 00 daily with Medical breakfast. [facility] metFORMIN 2021-0 Yes [id number] 1000mg Take 1 [facility] 1,000 mg 5-02 tablet by [facility] tablet 00:00: mouth [place] 00 daily. [facility] glimepiride 2021-0 Yes [id number] 2mg Take 1 [facility] 2 mg tablet 5-02 tablet by [facility] of 00:00: mouth [place] 00 daily with Medical breakfast. [facility] metFORMIN 2021-0 Yes [id number] 1000mg Take 1 [facility] 1,000 mg 5-02 tablet by [facility] tablet 00:00: mouth [place] 00 daily. [facility] glimepiride 2021-0 Yes [id number] 2mg Take 1 [facility] 2 mg tablet 5-02 tablet by [facility] of 00:00: mouth [place] 00 daily with Medical breakfast. [place] metFORMIN 2021-0 Yes [id number] 1000mg Take 1 [facility] 1,000 mg 5-02 tablet by [facility] of tablet 00:00: mouth [place] 00 daily. [facility] glimepiride 2021-0 Yes [id number] 2mg Take 1 [facility] 2 mg tablet 5-02 tablet by [facility] of 00:00: mouth [place] 00 daily with Medical breakfast. [place] metFORMIN 2021-0 Yes [id number] 1000mg Take 1 [facility] 1,000 mg 5-02 tablet by [facility] of tablet 00:00: mouth [place] 00 daily. [facility] glimepiride 2021-0 Yes [id number] 2mg Take 1 [facility] 2 mg tablet 5-02 tablet by [facility] of 00:00: mouth [place] 00 daily with Medical breakfast. [place] metFORMIN 2021-0 Yes [id number] 1000mg Take 1 [facility] 1,000 mg 5-02 tablet by [facility] of tablet 00:00: mouth [place] 00 daily. [facility] glimepiride 2021-0 Yes [id number] 2mg Take 1 [facility] 2 mg tablet 5-02 tablet by [facility] of 00:00: mouth [place] 00 daily with Medical breakfast. [place] metFORMIN 2021-0 Yes [id number] 1000mg Take 1 [facility] 1,000 mg 5-02 tablet by [facility] of tablet 00:00: mouth [place] 00 daily. [facility] glimepiride 2021-0 Yes [id number] 2mg Take 1 [facility] 2 mg tablet 5-02 tablet by [facility] of 00:00: mouth [place] 00 daily with Medical breakfast. [place] metFORMIN 2021-0 Yes [id number] 1000mg Take 1 [facility] 1,000 mg 5-02 tablet by [facility] of tablet 00:00: mouth [place] 00 daily. [facility] glimepiride 2021-0 Yes [id number] 2mg Take 1 [facility] 2 mg tablet 5-02 tablet by [facility] of 00:00: mouth [place] 00 daily with Medical breakfast. [facility] metFORMIN 2021-0 Yes [id number] 1000mg Take 1 [facility] 1,000 mg 5-02 tablet by [facility] of tablet 00:00: mouth [place] 00 daily. [facility] glimepiride 2021-0 Yes [id number] 2mg Take 1 [facility] 2 mg tablet 5-02 tablet by [facility] of 00:00: mouth [place] 00 daily with Medical breakfast. [place] metFORMIN 2021-0 Yes [id number] 1000mg Take 1 [facility] 1,000 mg 5-02 tablet by [facility] of tablet 00:00: mouth [place] 00 daily. [facility] glimepiride 2021-0 Yes [id number] 2mg Take 1 [facility] 2 mg tablet 5-02 tablet by [facility] of 00:00: mouth [place] 00 daily with Medical breakfast. [place] metFORMIN 2021-0 Yes [id number] 1000mg Take 1 [facility] 1,000 mg 5-02 tablet by [facility] of tablet 00:00: mouth [place] 00 daily. [facility] glimepiride 2021-0 Yes [id number] 2mg Take 1 [facility] 2 mg tablet 5-02 tablet by [facility] of 00:00: mouth [place] 00 daily with Medical breakfast. [place] metFORMIN 2021-0 Yes [id number] 1000mg Take 1 [facility] 1,000 mg 5-02 tablet by [facility] of tablet 00:00: mouth [place] 00 daily. [facility] glimepiride 2021-0 Yes [id number] 2mg Take 1 [facility] 2 mg tablet 5-02 tablet by [facility] of 00:00: mouth [place] 00 daily with Medical breakfast. [place] metFORMIN 2021-0 Yes [id number] 1000mg Take 1 [facility] 1,000 mg 5-02 tablet by [facility] of tablet 00:00: mouth [place] 00 daily. [facility] glimepiride 2021-0 Yes [id number] 2mg Take 1 [facility] 2 mg tablet 5-02 tablet by [facility] of 00:00: mouth [place] 00 daily with Medical breakfast. [place] metFORMIN 2021-0 Yes [id number] 1000mg Take 1 [facility] 1,000 mg 5-02 tablet by [facility] of tablet 00:00: mouth [place] 00 daily. [facility] glimepiride 2021-0 Yes [id number] 2mg Take 1 [facility] 2 mg tablet 5-02 tablet by [facility] of 00:00: mouth [place] 00 daily with Medical breakfast. [facility] metFORMIN 2021-0 Yes [id number] 1000mg Take 1 [facility] 1,000 mg 5-02 tablet by [facility] of tablet 00:00: mouth [place] 00 daily. [facility] glimepiride 2021-0 Yes [id number] 2mg Take 1 [facility] 2 mg tablet 5-02 tablet by [facility] of 00:00: mouth [place] 00 daily with Medical breakfast. [facility] metFORMIN 2021-0 Yes [id number] 1000mg Take 1 [facility] 1,000 mg 5-02 tablet by [facility] of tablet 00:00: mouth [place] 00 daily. [facility] glimepiride 2021-0 Yes [id number] 2mg Take 1 [facility] 2 mg tablet 5-02 tablet by [facility] of 00:00: mouth [place] 00 daily with Medical breakfast. [facility] metFORMIN 2021-0 Yes [id number] 1000mg Take 1 [facility] 1,000 mg 5-02 tablet by [facility] of tablet 00:00: mouth [place] 00 daily. [facility] glimepiride 2021-0 Yes [id number] 2mg Take 1 [facility] 2 mg tablet 5-02 tablet by [facility] of 00:00: mouth [place] 00 daily with Medical breakfast. [facility] metFORMIN 2021-0 Yes [id number] 1000mg Take 1 [facility] 1,000 mg 5-02 tablet by [facility] of tablet 00:00: mouth [place] 00 daily. [facility] glimepiride 2021-0 Yes [id number] 2mg Take 1 [facility] 2 mg tablet 5-02 tablet by [facility] of 00:00: mouth [place] 00 daily with Medical breakfast. [facility] metFORMIN 2021-0 Yes [id number] 1000mg Take 1 [facility] 1,000 mg 5-02 tablet by [facility] of tablet 00:00: mouth [place] 00 daily. [facility] glimepiride 2021-0 Yes [id number] 2mg Take 1 [facility] 2 mg tablet 5-02 tablet by [facility] of 00:00: mouth [place] 00 daily with Medical breakfast. [facility] metFORMIN 2021-0 Yes [id number] 1000mg Take 1 [facility] 1,000 mg 5-02 tablet by [facility] of tablet 00:00: mouth [place] 00 daily. [facility] glimepiride 2021-0 Yes [id number] 2mg Take 1 [facility] 2 mg tablet 5-02 tablet by [facility] of 00:00: mouth [place] 00 daily with Medical breakfast. [facility] metFORMIN 2021-0 Yes [id number] 1000mg Take 1 [facility] 1,000 mg 5-02 tablet by [facility] of tablet 00:00: mouth [place] 00 daily. [facility] glimepiride 2021-0 Yes [id number] 2mg Take 1 [facility] 2 mg tablet 5-02 tablet by [facility] of 00:00: mouth [place] 00 daily with Medical breakfast. [facility] metFORMIN 2021-0 Yes [id number] 1000mg Take 1 [facility] 1,000 mg 5-02 tablet by [facility] of tablet 00:00: mouth [place] 00 daily. [facility] glimepiride 2021-0 Yes [id number] 2mg Take 1 [facility] 2 mg tablet 5-02 tablet by [facility] of 00:00: mouth [place] 00 daily with Medical breakfast. [facility] metFORMIN 2021-0 Yes [id number] 1000mg Take 1 [facility] 1,000 mg 5-02 tablet by [facility] of tablet 00:00: mouth [place] 00 daily. [facility] glimepiride 2021-0 Yes [id number] 2mg Take 1 [facility] 2 mg tablet 5-02 tablet by [facility] of 00:00: mouth [place] 00 daily with Medical breakfast. [place] metFORMIN 2021-0 Yes [id number] 1000mg Take 1 [facility] 1,000 mg 5-02 tablet by [facility] of tablet 00:00: mouth [place] 00 daily. [facility] glimepiride 2021-0 Yes [id number] 2mg Take 1 [facility] 2 mg tablet 5-02 tablet by [facility] of 00:00: mouth [place] 00 daily with Medical breakfast. [place] metFORMIN 2021-0 Yes [id number] 1000mg Take 1 [facility] 1,000 mg 5-02 tablet by [facility] of tablet 00:00: mouth [place] 00 daily. [facility] glimepiride 2021-0 Yes [id number] 2mg Take 1 [facility] 2 mg tablet 5-02 tablet by [facility] of 00:00: mouth [place] 00 daily with Medical breakfast. [place] metFORMIN 2021-0 Yes [id number] 1000mg Take 1 [facility] 1,000 mg 5-02 tablet by [facility] of tablet 00:00: mouth [place] 00 daily. [facility] glimepiride 2021-0 Yes [id number] 2mg Take 1 [facility] 2 mg tablet 5-02 tablet by [facility] of 00:00: mouth [place] 00 daily with Medical breakfast. [facility] metFORMIN 2021-0 Yes [id number] 1000mg Take 1 [facility] 1,000 mg 5-02 tablet by [facility] of tablet 00:00: mouth [place] 00 daily. [facility] glimepiride 2021-0 Yes [id number] 2mg Take 1 [facility] 2 mg tablet 5-02 tablet by [facility] of 00:00: mouth [place] 00 daily with Medical breakfast. [facility] metFORMIN 2021-0 Yes [id number] 1000mg Take 1 [facility] 1,000 mg 5-02 tablet by [facility] of tablet 00:00: mouth [place] 00 daily. [facility] glimepiride 2021-0 Yes [id number] 2mg Take 1 [facility] 2 mg tablet 5-02 tablet by [facility] of 00:00: mouth [place] 00 daily with Medical breakfast. [place] metFORMIN 2021-0 Yes [id number] 1000mg Take 1 [facility] 1,000 mg 5-02 tablet by [facility] of tablet 00:00: mouth [place] 00 daily. [facility] glimepiride 2021-0 Yes [id number] 2mg Take 1 [facility] 2 mg tablet 5-02 tablet by [facility] of 00:00: mouth [place] 00 daily with Medical breakfast. [place] metFORMIN 2021-0 Yes [id number] 1000mg Take 1 [facility] 1,000 mg 5-02 tablet by [facility] of tablet 00:00: mouth [place] 00 daily. [facility] glimepiride 2021-0 Yes [id number] 2mg Take 1 [facility] 2 mg tablet 5-02 tablet by [facility] of 00:00: mouth [place] 00 daily with Medical breakfast. [place] metFORMIN 2021-0 Yes [id number] 1000mg Take 1 [facility] 1,000 mg 5-02 tablet by [facility] of tablet 00:00: mouth [place] 00 daily. [facility] glimepiride 2021-0 Yes [id number] 2mg Take 1 [facility] 2 mg tablet 5-02 tablet by [facility] of 00:00: mouth [place] 00 daily with Medical breakfast. [place] metFORMIN 2021-0 Yes [id number] 1000mg Take 1 [facility] 1,000 mg 5-02 tablet by [facility] of tablet 00:00: mouth [place] 00 daily. [facility] glimepiride 2021-0 Yes [id number] 2mg Take 1 [facility] 2 mg tablet 5-02 tablet by [facility] of 00:00: mouth [place] 00 daily with Medical breakfast. [place] metFORMIN 2021-0 Yes [id number] 1000mg Take 1 [facility] 1,000 mg 5-02 tablet by [facility] of tablet 00:00: mouth [place] 00 daily. [facility] glimepiride 2021-0 Yes [id number] 2mg Take 1 [facility] 2 mg tablet 5-02 tablet by [facility] of 00:00: mouth [place] 00 daily with Medical breakfast. [facility] metFORMIN 2021-0 Yes [id number] 1000mg Take 1 [facility] 1,000 mg 5-02 tablet by [facility] of tablet 00:00: mouth [place] 00 daily. [facility] glimepiride 2021-0 Yes [id number] 2mg Take 1 [facility] 2 mg tablet 5-02 tablet by [facility] of 00:00: mouth [place] 00 daily with Medical breakfast. [place] metFORMIN 2021-0 Yes [id number] 1000mg Take 1 [facility] 1,000 mg 5-02 tablet by [facility] of tablet 00:00: mouth [place] 00 daily. [facility] glimepiride 2021-0 Yes [id number] 2mg Take 1 [facility] 2 mg tablet 5-02 tablet by [facility] of 00:00: mouth [place] 00 daily with Medical breakfast. [place] metFORMIN 2021-0 Yes [id number] 1000mg Take 1 [facility] 1,000 mg 5-02 tablet by [facility] of tablet 00:00: mouth [place] 00 daily. [facility] glimepiride 2021-0 Yes [id number] 2mg Take 1 [facility] 2 mg tablet 5-02 tablet by [facility] of 00:00: mouth [place] 00 daily with Medical breakfast. [place] metFORMIN 2021-0 Yes [id number] 1000mg Take 1 [facility] 1,000 mg 5-02 tablet by [facility] of tablet 00:00: mouth [place] 00 daily. [facility] glimepiride 2021-0 Yes [id number] 2mg Take 1 [facility] 2 mg tablet 5-02 tablet by [facility] of 00:00: mouth [place] 00 daily with Medical breakfast. [place] metFORMIN 2021-0 Yes [id number] 1000mg Take 1 [facility] 1,000 mg 5-02 tablet by [facility] of tablet 00:00: mouth [place] 00 daily. [facility] glimepiride 2021-0 Yes [id number] 2mg Take 1 [facility] 2 mg tablet 5-02 tablet by [facility] of 00:00: mouth [place] 00 daily with Medical breakfast. [place] metFORMIN 2021-0 Yes [id number] 1000mg Take 1 [facility] 1,000 mg 5-02 tablet by [facility] of tablet 00:00: mouth [place] 00 daily. [facility] glimepiride 2021-0 Yes [id number] 2mg Take 1 [facility] 2 mg tablet 5-02 tablet by [facility] of 00:00: mouth [place] 00 daily with Medical breakfast. [facility] metFORMIN 2021-0 Yes [id number] 1000mg Take 1 [facility] 1,000 mg 5-02 tablet by [facility] of tablet 00:00: mouth [place] 00 daily. [facility] glimepiride 2021-0 Yes [id number] 2mg Take 1 [facility] 2 mg tablet 5-02 tablet by [facility] of 00:00: mouth [place] 00 daily with Medical breakfast. [facility] metFORMIN 2021-0 Yes [id number] 1000mg Take 1 [facility] 1,000 mg 5-02 tablet by [facility] of tablet 00:00: mouth [place] 00 daily. [facility] glimepiride 2021-0 Yes [id number] 2mg Take 1 [facility] 2 mg tablet 5-02 tablet by [facility] of 00:00: mouth [place] 00 daily with Medical breakfast. [facility] metFORMIN 2021-0 Yes [id number] 1000mg Take 1 [facility] 1,000 mg 5-02 tablet by [facility] of tablet 00:00: mouth [place] 00 daily. [facility] glimepiride 2021-0 Yes [id number] 2mg Take 1 [facility] 2 mg tablet 5-02 tablet by [facility] of 00:00: mouth [place] 00 daily with Medical breakfast. [facility] metFORMIN 2021-0 Yes [id number] 1000mg Take 1 [facility] 1,000 mg 5-02 tablet by [facility] of tablet 00:00: mouth [place] 00 daily. [facility] glimepiride 2021-0 Yes [id number] 2mg Take 1 [facility] 2 mg tablet 5-02 tablet by [facility] of 00:00: mouth [place] 00 daily with Medical breakfast. [facility] metFORMIN 2021-0 Yes [id number] 1000mg Take 1 [facility] 1,000 mg 5-02 tablet by [facility] of tablet 00:00: mouth [place] 00 daily. [facility] glimepiride 2021-0 Yes [id number] 2mg Take 1 [facility] 2 mg tablet 5-02 tablet by [facility] of 00:00: mouth [place] 00 daily with Medical breakfast. [facility] metFORMIN 2021-0 Yes [id number] 1000mg Take 1 [facility] 1,000 mg 5-02 tablet by [facility] of tablet 00:00: mouth [place] 00 daily. [facility] glimepiride 2021-0 Yes [id number] 2mg Take 1 [facility] 2 mg tablet 5-02 tablet by [facility] of 00:00: mouth [place] 00 daily with Medical breakfast. [facility] metFORMIN 2021-0 Yes [id number] 1000mg Take 1 [facility] 1,000 mg 5-02 tablet by [facility] of tablet 00:00: mouth [place] 00 daily. [facility] glimepiride 2021-0 Yes [id number] 2mg Take 1 [facility] 2 mg tablet 5-02 tablet by [facility] of 00:00: mouth [place] 00 daily with Medical breakfast. [facility] metFORMIN 2021-0 Yes [id number] 1000mg Take 1 [facility] 1,000 mg 5-02 tablet by [facility] of tablet 00:00: mouth [place] 00 daily. [facility] glimepiride 2021-0 Yes [id number] 2mg Take 1 [facility] 2 mg tablet 5-02 tablet by [facility] of 00:00: mouth [place] 00 daily with Medical breakfast. [facility] metFORMIN 2021-0 Yes [id number] 1000mg Take 1 [facility] 1,000 mg 5-02 tablet by [facility] of tablet 00:00: mouth [place] 00 daily. [facility] glimepiride 2021-0 Yes [id number] 2mg Take 1 [facility] 2 mg tablet 5-02 tablet by [facility] of 00:00: mouth [place] 00 daily with Medical breakfast. [place] metFORMIN 2021-0 Yes [id number] 1000mg Take 1 [facility] 1,000 mg 5-02 tablet by [facility] of tablet 00:00: mouth [place] 00 daily. [facility] glimepiride 2021-0 Yes [id number] 2mg Take 1 [facility] 2 mg tablet 5-02 tablet by [facility] of 00:00: mouth [place] 00 daily with Medical breakfast. [place] metFORMIN 2021-0 Yes [id number] 1000mg Take 1 [facility] 1,000 mg 5-02 tablet by [facility] of tablet 00:00: mouth [place] 00 daily. [facility] glimepiride 2021-0 Yes [id number] 2mg Take 1 [facility] 2 mg tablet 5-02 tablet by [facility] of 00:00: mouth [place] 00 daily with Medical breakfast. [place] metFORMIN 2021-0 Yes [id number] 1000mg Take 1 [facility] 1,000 mg 5-02 tablet by [facility] of tablet 00:00: mouth [place] 00 daily. [facility] glimepiride 2021-0 Yes [id number] 2mg Take 1 [facility] 2 mg tablet 5-02 tablet by [facility] of 00:00: mouth [place] 00 daily with Medical breakfast. [facility] metFORMIN 2021-0 Yes [id number] 1000mg Take 1 [facility] 1,000 mg 5-02 tablet by [facility] of tablet 00:00: mouth [place] 00 daily. [facility] glimepiride 2021-0 Yes [id number] 2mg Take 1 [facility] 2 mg tablet 5-02 tablet by [facility] of 00:00: mouth [place] 00 daily with Medical breakfast. [facility] metFORMIN 2021-0 Yes [id number] 1000mg Take 1 [facility] 1,000 mg 5-02 tablet by [facility] of tablet 00:00: mouth [place] 00 daily. [facility] glimepiride 2021-0 Yes [id number] 2mg Take 1 [facility] 2 mg tablet 5-02 tablet by [facility] of 00:00: mouth [place] 00 daily with Medical breakfast. [place] metFORMIN 2021-0 Yes [id number] 1000mg Take 1 [facility] 1,000 mg 5-02 tablet by [facility] of tablet 00:00: mouth [place] 00 daily. [facility] glimepiride 2021-0 Yes [id number] 2mg Take 1 [facility] 2 mg tablet 5-02 tablet by [facility] of 00:00: mouth [place] 00 daily with Medical breakfast. [place] metFORMIN 2021-0 Yes [id number] 1000mg Take 1 [facility] 1,000 mg 5-02 tablet by [facility] of tablet 00:00: mouth [place] 00 daily. [facility] glimepiride 2021-0 Yes [id number] 2mg Take 1 [facility] 2 mg tablet 5-02 tablet by [facility] of 00:00: mouth [place] 00 daily with Medical breakfast. [place] metFORMIN 2021-0 Yes [id number] 1000mg Take 1 [facility] 1,000 mg 5-02 tablet by [facility] of tablet 00:00: mouth [place] 00 daily. [facility] glimepiride 2021-0 Yes [id number] 2mg Take 1 [facility] 2 mg tablet 5-02 tablet by [facility] of 00:00: mouth [place] 00 daily with Medical breakfast. [place] metFORMIN 2021-0 Yes [id number] 1000mg Take 1 [facility] 1,000 mg 5-02 tablet by [facility] of tablet 00:00: mouth [place] 00 daily. [facility] glimepiride 2021-0 Yes [id number] 2mg Take 1 [facility] 2 mg tablet 5-02 tablet by [facility] of 00:00: mouth [place] 00 daily with Medical breakfast. [place] metFORMIN 2021-0 Yes [id number] 1000mg Take 1 [facility] 1,000 mg 5-02 tablet by [facility] of tablet 00:00: mouth [place] 00 daily. [facility] glimepiride 2021-0 Yes [id number] 2mg Take 1 [facility] 2 mg tablet 5-02 tablet by [facility] of 00:00: mouth [place] 00 daily with Medical breakfast. [facility] metFORMIN 2021-0 Yes [id number] 1000mg Take 1 [facility] 1,000 mg 5-02 tablet by [facility] of tablet 00:00: mouth [place] 00 daily. [facility] glimepiride 2021-0 Yes [id number] 2mg Take 1 [facility] 2 mg tablet 5-02 tablet by [facility] of 00:00: mouth [place] 00 daily with Medical breakfast. [place] metFORMIN 2021-0 Yes [id number] 1000mg Take 1 [facility] 1,000 mg 5-02 tablet by [facility] of tablet 00:00: mouth [place] 00 daily. [facility] glimepiride 2021-0 Yes [id number] 2mg Take 1 [facility] 2 mg tablet 5-02 tablet by [facility] of 00:00: mouth [place] 00 daily with Medical breakfast. [place] metFORMIN 2021-0 Yes [id number] 1000mg Take 1 [facility] 1,000 mg 5-02 tablet by [facility] of tablet 00:00: mouth [place] 00 daily. [facility] glimepiride 2021-0 Yes [id number] 2mg Take 1 [facility] 2 mg tablet 5-02 tablet by [facility] of 00:00: mouth [place] 00 daily with Medical breakfast. [place] metFORMIN 2021-0 Yes [id number] 1000mg Take 1 [facility] 1,000 mg 5-02 tablet by [facility] of tablet 00:00: mouth [place] 00 daily. [facility] glimepiride 2021-0 Yes [id number] 2mg Take 1 [facility] 2 mg tablet 5-02 tablet by [facility] of 00:00: mouth [place] 00 daily with Medical breakfast. [place] metFORMIN 2021-0 Yes [id number] 1000mg Take 1 [facility] 1,000 mg 5-02 tablet by [facility] of tablet 00:00: mouth [place] 00 daily. [facility] glimepiride 2021-0 Yes [id number] 2mg Take 1 [facility] 2 mg tablet 5-02 tablet by [facility] of 00:00: mouth [place] 00 daily with Medical breakfast. [place] metFORMIN 2021-0 Yes [id number] 1000mg Take 1 [facility] 1,000 mg 5-02 tablet by [facility] of tablet 00:00: mouth [place] 00 daily. [facility] glimepiride 2021-0 Yes [id number] 2mg Take 1 [facility] 2 mg tablet 5-02 tablet by [facility] of 00:00: mouth [place] 00 daily with Medical breakfast. [facility] metFORMIN 2021-0 Yes [id number] 1000mg Take 1 [facility] 1,000 mg 5-02 tablet by [facility] of tablet 00:00: mouth [place] 00 daily. [facility] glimepiride 2021-0 Yes [id number] 2mg Take 1 [facility] 2 mg tablet 5-02 tablet by [facility] of 00:00: mouth [place] 00 daily with Medical breakfast. [facility] metFORMIN 2021-0 Yes [id number] 1000mg Take 1 [facility] 1,000 mg 5-02 tablet by [facility] of tablet 00:00: mouth [place] 00 daily. [facility] glimepiride 2021-0 Yes [id number] 2mg Take 1 [facility] 2 mg tablet 5-02 tablet by [facility] of 00:00: mouth [place] 00 daily with Medical breakfast. [facility] metFORMIN 2021-0 Yes [id number] 1000mg Take 1 [facility] 1,000 mg 5-02 tablet by [facility] of tablet 00:00: mouth [place] 00 daily. [facility] glimepiride 2021-0 Yes [id number] 2mg Take 1 [facility] 2 mg tablet 5-02 tablet by [facility] of 00:00: mouth [place] 00 daily with Medical breakfast. [facility] metFORMIN 2021-0 Yes [id number] 1000mg Take 1 [facility] 1,000 mg 5-02 tablet by [facility] of tablet 00:00: mouth [place] 00 daily. [facility] glimepiride 2021-0 Yes [id number] 2mg Take 1 [facility] 2 mg tablet 5-02 tablet by [facility] of 00:00: mouth [place] 00 daily with Medical breakfast. [facility] metFORMIN 2021-0 Yes [id number] 1000mg Take 1 [facility] 1,000 mg 5-02 tablet by [facility] of tablet 00:00: mouth [place] 00 daily. [facility] glimepiride 2021-0 Yes [id number] 2mg Take 1 [facility] 2 mg tablet 5-02 tablet by [facility] of 00:00: mouth [place] 00 daily with Medical breakfast. [facility] metFORMIN 2021-0 Yes [id number] 1000mg Take 1 [facility] 1,000 mg 5-02 tablet by [facility] of tablet 00:00: mouth [place] 00 daily. [facility] glimepiride 2021-0 Yes [id number] 2mg Take 1 [facility] 2 mg tablet 5-02 tablet by [facility] of 00:00: mouth [place] 00 daily with Medical breakfast. [facility] metFORMIN 2021-0 Yes [id number] 1000mg Take 1 [facility] 1,000 mg 5-02 tablet by [facility] of tablet 00:00: mouth [place] 00 daily. [facility] glimepiride 2021-0 Yes [id number] 2mg Take 1 [facility] 2 mg tablet 5-02 tablet by [facility] of 00:00: mouth [place] 00 daily with Medical breakfast. [facility] metFORMIN 2021-0 Yes [id number] 1000mg Take 1 [facility] 1,000 mg 5-02 tablet by [facility] of tablet 00:00: mouth [place] 00 daily. [facility] glimepiride 2021-0 Yes [id number] 2mg Take 1 [facility] 2 mg tablet 5-02 tablet by [facility] of 00:00: mouth [place] 00 daily with Medical breakfast. [facility] metFORMIN 2021-0 Yes [id number] 1000mg Take 1 [facility] 1,000 mg 5-02 tablet by [facility] of tablet 00:00: mouth [place] 00 daily. [facility] glimepiride 2021-0 Yes [id number] 2mg Take 1 [facility] 2 mg tablet 5-02 tablet by [facility] of 00:00: mouth [place] 00 daily with Medical breakfast. [place] metFORMIN 2021-0 Yes [id number] 1000mg Take 1 [facility] 1,000 mg 5-02 tablet by [facility] of tablet 00:00: mouth [place] 00 daily. [facility] glimepiride 2021-0 Yes [id number] 2mg Take 1 [facility] 2 mg tablet 5-02 tablet by [facility] of 00:00: mouth [place] 00 daily with Medical breakfast. [place] metFORMIN 2021-0 Yes [id number] 1000mg Take 1 [facility] 1,000 mg 5-02 tablet by [facility] of tablet 00:00: mouth [place] 00 daily. [facility] glimepiride 2021-0 Yes [id number] 2mg Take 1 [facility] 2 mg tablet 5-02 tablet by [facility] of 00:00: mouth [place] 00 daily with Medical breakfast. [place] metFORMIN 2021-0 Yes [id number] 1000mg Take 1 [facility] 1,000 mg 5-02 tablet by [facility] of tablet 00:00: mouth [place] 00 daily. [facility] glimepiride 2021-0 Yes [id number] 2mg Take 1 [facility] 2 mg tablet 5-02 tablet by [facility] of 00:00: mouth [place] 00 daily with Medical breakfast. [facility] metFORMIN 2021-0 Yes [id number] 1000mg Take 1 [facility] 1,000 mg 5-02 tablet by [facility] of tablet 00:00: mouth [place] 00 daily. [facility] glimepiride 2021-0 Yes [id number] 2mg Take 1 [facility] 2 mg tablet 5-02 tablet by [facility] of 00:00: mouth [place] 00 daily with Medical breakfast. [facility] metFORMIN 2021-0 Yes [id number] 1000mg Take 1 [facility] 1,000 mg 5-02 tablet by [facility] of tablet 00:00: mouth [place] 00 daily. [facility] glimepiride 2021-0 Yes [id number] 2mg Take 1 [facility] 2 mg tablet 5-02 tablet by [facility] of 00:00: mouth [place] 00 daily with Medical breakfast. [place] [facility]FORMIN 2021-0 Yes [id number] 1000mg Take 1 [facility] 1,000 mg 5-02 tablet by ity of tablet 00:00: mouth [place] 00 daily. [facility] glimepiride 2021-0 Yes [id number] 2mg Take 1 [facility] 2 mg tablet 5-02 tablet by ity of 00:00: mouth [place] 00 daily with Medical breakfast. [place] metFORMIN 2021-0 Yes [id number] 1000mg Take 1 [facility] 1,000 mg 5-02 tablet by ity of tablet 00:00: mouth [place] 00 daily. [facility] glimepiride 2021-0 Yes [id number] 2mg Take 1 [facility] 2 mg tablet 5-02 tablet by ity of 00:00: mouth [place] 00 daily with Medical breakfast. [place] metFORMIN 2021-0 Yes [id number] 1000mg Take 1 [facility] 1,000 mg 5-02 tablet by ity of tablet 00:00: mouth [place] 00 daily. [facility] glimepiride 2021-0 Yes [id number] 2mg Take 1 [facility] 2 mg tablet 5-02 tablet by ity of 00:00: mouth [place] 00 daily with Medical breakfast. [place] metFORMIN 2021-0 Yes [id number] 1000mg Take 1 [facility] 1,000 mg 5-02 tablet by ity of tablet 00:00: mouth [place] 00 daily. [facility] glimepiride 2021-0 Yes [id number] 2mg Take 1 [facility] 2 mg tablet 5-02 tablet by ity of 00:00: mouth [place] 00 daily with Medical breakfast. [place] metFORMIN 2021-0 Yes [id number] 1000mg Take 1 [facility] 1,000 mg 5-02 tablet by ity of tablet 00:00: mouth [place] 00 daily. [facility] metFORMIN 2021-0 Yes [id number] 1000mg Take 1 [facility] 1,000 mg 5-02 tablet by ity of tablet 00:00: mouth [place] 00 daily. [facility] metFORMIN 2021-0 Yes [id number] 1000mg Take 1 [facility] 1,000 mg 5-02 tablet by ity of tablet 00:00: mouth [place] 00 daily. [facility] metFORMIN 2021-0 Yes [id number] 1000mg Take 1 [facility] 1,000 mg 5-02 tablet by ity of tablet 00:00: mouth [place] 00 daily. [facility] metFORMIN 2021-0 Yes [id number] 1000mg Take 1 [facility] 1,000 mg 5-02 tablet by ity of tablet 00:00: mouth [place] 00 daily. [facility] metFORMIN 2021-0 Yes [id number] 1000mg Take 1 [facility] 1,000 mg 5-02 tablet by ity of tablet 00:00: mouth [place] 00 daily. [facility] metFORMIN 2021-0 Yes [id number] 1000mg Take 1 [facility] 1,000 mg 5-02 tablet by ity of tablet 00:00: mouth [place] 00 daily. [facility] metFORMIN 2021-0 Yes [id number] 1000mg Take 1 [facility] 1,000 mg 5-02 tablet by ity of tablet 00:00: mouth [place] 00 daily. [facility] metFORMIN 2021-0 Yes [id number] 1000mg Take 1 [facility] 1,000 mg 5-02 tablet by ity of tablet 00:00: mouth [place] 00 daily. [facility] metFORMIN 2021-0 Yes [id number] 1000mg Take 1 [facility] 1,000 mg 5-02 tablet by ity of tablet 00:00: mouth [place] 00 daily. [facility] metFORMIN 2021-0 Yes [id number] 1000mg Take 1 [facility] 1,000 mg 5-02 tablet by ity of tablet 00:00: mouth [place] 00 daily. [facility] metFORMIN 2021-0 Yes [id number] 1000mg Take 1 [facility] 1,000 mg 5-02 tablet by ity of tablet 00:00: mouth [place] 00 daily. [facility] metFORMIN 2021-0 Yes [id number] 1000mg Take 1 [facility] 1,000 mg 5-02 tablet by ity of tablet 00:00: mouth [place] 00 daily. [facility] metFORMIN 2021-0 Yes [id number] 1000mg Take 1 [facility] 1,000 mg 5-02 tablet by ity of tablet 00:00: mouth [place] 00 daily. [facility] metFORMIN 2021-0 Yes [id number] 1000mg Take 1 [facility] 1,000 mg 5-02 tablet by ity of tablet 00:00: mouth [place] 00 daily. [facility] metFORMIN 2021-0 Yes [id number] 1000mg Take 1 [facility] 1,000 mg 5-02 tablet by ity of tablet 00:00: mouth [place] 00 daily. [facility] metFORMIN 2021-0 Yes [id number] 1000mg Take 1 [facility] 1,000 mg 5-02 tablet by ity of tablet 00:00: mouth [place] 00 daily. [facility] metFORMIN 2021-0 Yes [id number] 1000mg Take 1 [facility] 1,000 mg 5-02 tablet by ity of tablet 00:00: mouth [place] 00 daily. [facility] metFORMIN 2021-0 Yes [id number] 1000mg Take 1 [facility] 1,000 mg 5-02 tablet by ity of tablet 00:00: mouth [place] 00 daily. [facility] metFORMIN 2021-0 Yes [id number] 1000mg Take 1 [facility] 1,000 mg 5-02 tablet by ity of tablet 00:00: mouth [place] 00 daily. [facility] metFORMIN 2021-0 Yes [id number] 1000mg Take 1 [facility] 1,000 mg 5-02 tablet by ity of tablet 00:00: mouth [place] 00 daily. [facility] metFORMIN 2021-0 Yes [id number] 1000mg Take 1 [facility] 1,000 mg 5-02 tablet by ity of tablet 00:00: mouth [place] 00 daily. [facility] metFORMIN 2021-0 Yes [id number] 1000mg Take 1 [facility] 1,000 mg 5-02 tablet by ity of tablet 00:00: mouth [place] 00 daily. [facility] metFORMIN 2021-0 Yes [id number] 1000mg Take 1 [facility] 1,000 mg 5-02 tablet by ity of tablet 00:00: mouth [place] 00 daily. [facility] metFORMIN 2021-0 Yes [id number] 1000mg Take 1 [facility] 1,000 mg 5-02 tablet by ity of tablet 00:00: mouth [place] 00 daily. [facility] metFORMIN 2021-0 Yes [id number] 1000mg Take 1 [facility] 1,000 mg 5-02 tablet by ity of tablet 00:00: mouth [place] 00 daily. [facility] metFORMIN 2021-0 Yes [id number] 1000mg Take 1 [facility] 1,000 mg 5-02 tablet by ity of tablet 00:00: mouth [place] 00 daily. [facility] metFORMIN 2021-0 Yes [id number] 1000mg Take 1 [facility] 1,000 mg 5-02 tablet by ity of tablet 00:00: mouth [place] 00 daily. [facility] metFORMIN 0 Yes [id number] 1000mg Take 1 [facility] 1,000 mg 5-02 tablet by ity of tablet 00:00: mouth [place] 00 daily. [facility] metFORMIN 2021-0 Yes [id number] 1000mg Take 1 [facility] 1,000 mg 5-02 tablet by ity of tablet 00:00: mouth [place] 00 daily. [facility] metFORMIN 0 Yes [id number] 1000mg Take 1 [facility] 1,000 mg 5-02 tablet by ity of tablet 00:00: mouth [place] 00 daily. [facility] metFORMIN 0 Yes [id number] 1000mg Take 1 [facility] 1,000 mg 5-02 tablet by ity of tablet 00:00: mouth [place] 00 daily. [facility] metFORMIN 0 3- No [id number] 1000mg Take 1 [facility] 1,000 mg 5-02 -23 tablet by ity o f tablet 00:00: 00:00 mouth [place] 00 :00 daily. [facility] metFORMIN 0 3- No [id number] 1000mg Take 1 [facility] 1,000 mg 5-02 -23 tablet by ity o f tablet 00:00: 00:00 mouth [place] 00 :00 daily. [facility] metFORMIN 2021-0 3- No [id number] 1000mg Take 1 [facility] 1,000 mg 5-02 -23 tablet by ity o f tablet 00:00: 00:00 mouth [place] 00 :00 daily. [facility] glimepiride 2021-0 3- No [id number] 2mg Take 1 [facility] 2 mg tablet -03 23- tablet by it y of 00:00: 00:00 mouth [place] 00 :00 daily with Medical breakfast. [place] glimepiride 2021-0 3- No [id number] 2mg Take 1 [facility] 2 mg tablet -03 23- tablet by it y of 00:00: 00:00 mouth [place] 00 :00 daily with Medical breakfast. [place] glimepiride 2021-0 3- No [id number] 2mg Take 1 [facility] 2 mg tablet 5-03 23- tablet by it y of 00:00: 00:00 mouth [place] 00 :00 daily with Medical breakfast. Branch aspirin Yes 325mg Take 325 Un bhumi mg EC 4-27 mg by ity of tablet 11:01: mouth. [place] [address] Medical Branch Cholecalcif Yes 125ug Take 125 U nivers dwight, 4-27 mcg by ity of Vitamin D3, 11:01: mouth. [place] 125 m[place] 24 Medical (5,000 Branch unit) tablet aspirin Yes 325mg Take 325 Un [facility] mg EC 4-27 mg by ity of tablet 11:01: mouth. [place] [address] Medical Branch Cholecalcif Yes 125ug Take 125 U nivers dwight, 4-27 mcg by ity of Vitamin D3, 11:01: mouth. [place] 125 m[place] 24 Medical (5,000 Branch unit) tablet aspirin Yes 325mg Take 325 Un [facility] mg EC 4-27 mg by ity of tablet 11:01: mouth. [place] [address] Medical Branch Cholecalcif Yes 125ug Take 125 U nivers dwight, 4-27 mcg by ity of Vitamin D3, 11:01: mouth. [place] 125 mcg 24 Medical (5,000 Branch unit) tablet aspirin Yes 325mg Take 325 Un [facility] mg EC 4-27 mg by ity of tablet 11:01: mouth. [place] [address] Medical Branch Cholecalcif Yes 125ug Take 125 U nivers [place]ight, 4-27 mcg by ity of Vitamin D3, 11:01: mouth. [place] 125 m[place] 24 Medical (5,000 Branch unit) tablet aspirin Yes 325mg Take 325 Un [facility] mg EC 4-27 mg by ity of tablet 11:01: mouth. [place] [address] Medical Branch Cholecalcif Yes 125ug Take 125 U nivers dwight, 4-27 mcg by ity of Vitamin D3, 11:01: mouth. [place] 125 mcg 24 Medical (5,000 Branch unit) tablet aspirin Yes 325mg Take 325 Un [place] mg EC 4-27 mg by ity of tablet 11:01: mouth. [address] Branch Cholecalcif Yes 125ug Take 125 U nivers dwight, 4-27 mcg by ity of Vitamin D3, 11:01: mouth. [place] 125 mcg 24 Medical (5,000 Branch unit) tablet aspirin 0 Yes 325mg Take 325 Un [facility] mg EC 4-27 mg by ity of tablet 11:01: mouth. [place] [address] Medical Branch Cholecalcif 0 Yes 125ug Take 125 U nivers dwight, 4-27 mcg by ity of Vitamin D3, 11:01: mouth. [place] 125 mcg 24 Medical (5,000 Branch unit) tablet aspirin 0 Yes 325mg Take 325 Un [place] mg EC 4-27 mg by ity of tablet 11:01: mouth. [address] Branch Cholecalcif 0 Yes 125ug Take 125 U nivers dwight, 4-27 mcg by ity of Vitamin D3, 11:01: mouth. [place] 125 mcg 24 Medical (5,000 Branch unit) tablet aspirin Yes 325mg Take 325 Un [place] mg EC 4-27 mg by ity of tablet 11:01: mouth. [place] [address] Medical Branch Cholecalcif 0 Yes 125ug Take 125 U nivers dwight, 4-27 mcg by ity of Vitamin D3, 11:01: mouth. [place] 125 mcg 24 Medical (5,000 Branch unit) tablet aspirin Yes 325mg Take 325 Un [facility] mg EC 4-27 mg by ity of tablet 11:01: mouth. [place] [address] Medical Branch Cholecalcif Yes 125ug Take 125 U nivers dwight, 4-27 mcg by ity of Vitamin D3, 11:01: mouth. [place] 125 mcg 24 Medical (5,000 Branch unit) tablet aspirin 0 Yes 325mg Take 325 Un [place] mg EC 4-27 mg by ity of tablet 11:01: mouth. [address] Branch Cholecalcif 0 Yes 125ug Take 125 U nivers dwight, 4-27 mcg by ity of Vitamin D3, 11:01: mouth. [place] 125 mcg 24 Medical (5,000 Branch unit) tablet aspirin 0 Yes 325mg Take 325 Un [facility] mg EC 4-27 mg by ity of tablet 11:01: mouth. [place] [address] Medical Branch Cholecalcif 2022-0 Yes 125ug Take 125 U nivers [place]ight, 4-27 mcg by ity of Vitamin D3, 11:01: mouth. [place] 125 mcg 24 Medical (5,000 Branch unit) tablet aspirin Yes 325mg Take 325 [facility] [place] mg EC 4-27 mg by ity of tablet 11:01: mouth. [address] Branch Cholecalcif Yes 125ug Take 125 U nivers dwight, 4-27 mcg by ity of Vitamin D3, 11:01: mouth. [place] 125 mcg 24 Medical (5,000 Branch unit) tablet aspirin Yes 325mg Take 325 Un [facility] mg EC 4-27 mg by ity of tablet 11:01: mouth. [address] Branch Cholecalcif Yes 125ug Take 125 U nivers dwight, 4-27 mcg by ity of Vitamin D3, 11:01: mouth. [place] 125 mcg 24 Medical (5,000 Branch unit) tablet aspirin Yes 325mg Take 325 Un [place] mg EC 4-27 mg by ity of tablet 11:01: mouth. [address] Branch Cholecalcif Yes 125ug Take 125 U nivers dwight, 4-27 mcg by ity of Vitamin D3, 11:01: mouth. [place] 125 mcg 24 Medical (5,000 Branch unit) tablet aspirin Yes 325mg Take 325 Un [facility] mg EC 4-27 mg by ity of tablet 11:01: mouth. [address] Cholecalcif 0 Yes 125ug Take 125 U nivers dwight, 4-27 mcg by ity of Vitamin D3, 11:01: mouth. [place] 125 mcg 24 Medical (5,000 Branch unit) tablet aspirin 0 Yes 325mg Take 325 Un [facility] mg EC 4-27 mg by ity of tablet 11:01: mouth. [address] Branch Cholecalcif 0 Yes 125ug Take 125 U nivers dwight, 4-27 mcg by ity of Vitamin D3, 11:01: mouth. [place] 125 mcg 24 Medical (5,000 Branch unit) tablet aspirin 0 Yes 325mg Take 325 Un [facility] mg EC 4-27 mg by ity of tablet 11:01: mouth. [address] Cholecalcif 0 Yes 125ug Take 125 U nivers dwight, 4-27 mcg by ity of Vitamin D3, 11:01: mouth. [place] 125 mcg 24 Medical (5,000 Branch unit) tablet aspirin 0 Yes 325mg Take 325 Un [facility] mg EC 4-27 mg by ity of tablet 11:01: mouth. [address] Branch Cholecalcif 0 Yes 125ug Take 125 U nivers dwight, 4-27 mcg by ity of Vitamin D3, 11:01: mouth. [place] 125 mcg 24 Medical (5,000 Branch unit) tablet aspirin 0 Yes 325mg Take 325 [facility] [place] mg EC 4-27 mg by ity of tablet 11:01: mouth. [address] Branch Cholecalcif Yes 125ug Take 125 U nivers dwight, 4-27 mcg by ity of Vitamin D3, 11:01: mouth. [place] 125 mcg 24 Medical (5,000 Branch unit) tablet aspirin Yes 325mg Take 325 Un bhmui mg EC 4-27 mg by ity of tablet 11:01: mouth. [address] Branch Cholecalcif Yes 125ug Take 125 U nivers dwight, 4-27 mcg by ity of Vitamin D3, 11:01: mouth. [place] 125 mcg 24 Medical (5,000 Branch unit) tablet aspirin 0 Yes 325mg Take 325 Un [place] mg EC 4-27 mg by ity of tablet 11:01: mouth. [address] Branch Cholecalcif 0 Yes 125ug Take 125 U nivers dwight, 4-27 mcg by ity of Vitamin D3, 11:01: mouth. [place] 125 mcg 24 Medical (5,000 Branch unit) tablet aspirin 2021-0 Yes 325mg Take 325 [facility] mg EC 4-27 mg by ity of tablet 11:01: mouth. [address] Branch Cholecalcif 0 Yes 125ug Take 125 U nivers dwight, 4-27 mcg by ity of Vitamin D3, 11:01: mouth. [place] 125 mcg 24 Medical (5,000 Branch unit) tablet aspirin 2021-0 Yes 325mg Take 325 [facility] [place] mg EC 4-27 mg by ity of tablet 11:01: mouth. Medical Branch Cholecalcif Yes 125ug Take 125 U nivers [place], 4-27 mcg by ity of Vitamin D3, 11:01: mouth. [place] 125 mcg 24 Medical (5,000 Branch unit) tablet aspirin 81 0 Yes 325mg Take 325 [facility] mg EC 4-27 mg by ity of tablet 11:01: mouth. Medical Branch Cholecalcif Yes 125ug Take 125 U nivers [place], 4-27 mcg by ity of Vitamin D3, 11:01: mouth. [place] 125 mcg 24 Medical (5,000 Branch unit) tablet aspirin 81 0 Yes 325mg Take 325 [facility] mg EC 4-27 mg by ity of tablet 11:01: mouth. Medical Branch Cholecalcif Yes 125ug Take 125 U nivers [place], 4-27 mcg by ity of Vitamin D3, 11:01: mouth. [place] 125 mcg 24 Medical (5,000 Branch unit) tablet aspirin 0 Yes 325mg Take 325 [facility] mg EC 4-27 mg by ity of tablet 11:01: mouth. Medical Branch Cholecalcif Yes 125ug Take 125 U nivers [place], 4-27 mcg by ity of Vitamin D3, 11:01: mouth. [place] 125 mcg 24 Medical (5,000 Branch unit) tablet oxybutynin 0 Yes [id number] 5mg Take 1 [facility] XL 5 mg 24 4-27 tablet by ity of hr tablet 00:00: mouth [place] 00 daily. Medical Branch oxybutynin 2021-0 Yes [id number] 5mg Take 1 [facility] XL 5 mg 24 4-27 tablet by ity of hr tablet 00:00: mouth [place] 00 daily. Medical Branch oxybutynin 2021-0 Yes [id number] 5mg Take 1 [facility] XL 5 mg 24 4-27 tablet by ity of hr tablet 00:00: mouth [place] 00 daily. Medical Branch oxybutynin 0 Yes [id number] 5mg Take 1 [facility] XL 5 mg 24 4-27 tablet by ity of hr tablet 00:00: mouth [place] 00 daily. Medical Branch oxybutynin 2021-0 Yes [id number] 5mg Take 1 [facility] XL 5 mg 24 4-27 tablet by ity of hr tablet 00:00: mouth [place] 00 daily. Medical Branch oxybutynin 2021-0 Yes [id number] 5mg Take 1 [facility] XL 5 mg 24 4-27 tablet by ity of hr tablet 00:00: mouth [place] 00 daily. Medical Branch oxybutynin 2021-0 Yes [id number] 5mg Take 1 [facility] XL 5 mg 24 4-27 tablet by ity of hr tablet 00:00: mouth [place] 00 daily. Medical Branch oxybutynin 2021-0 Yes [id number] 5mg Take 1 [facility] XL 5 mg 24 4-27 tablet by ity of hr tablet 00:00: mouth [place] 00 daily. Medical Branch oxybutynin 2021-0 Yes [id number] 5mg Take 1 [facility] XL 5 mg 24 4-27 tablet by ity of hr tablet 00:00: mouth [place] 00 daily. Medical Branch oxybutynin 2021-0 Yes [id number] 5mg Take 1 [facility] XL 5 mg 24 4-27 tablet by ity of hr tablet 00:00: mouth [place] 00 daily. Medical Branch oxybutynin 2021-0 Yes [id number] 5mg Take 1 [facility] XL 5 mg 24 4-27 tablet by ity of hr tablet 00:00: mouth [place] 00 daily. Medical Branch oxybutynin 2021-0 Yes [id number] 5mg Take 1 [facility] XL 5 mg 24 4-27 tablet by ity of hr tablet 00:00: mouth [place] 00 daily. Medical Branch oxybutynin 2021-0 Yes [id number] 5mg Take 1 [facility] XL 5 mg 24 4-27 tablet by ity of hr tablet 00:00: mouth [place] 00 daily. Medical Branch oxybutynin 2021-0 Yes [id number] 5mg Take 1 [facility] XL 5 mg 24 4-27 tablet by ity of hr tablet 00:00: mouth [place] 00 daily. Medical Branch oxybutynin 2021-0 Yes [id number] 5mg Take 1 [facility] XL 5 mg 24 4-27 tablet by ity of hr tablet 00:00: mouth [place] 00 daily. Medical Branch oxybutynin 2021-0 Yes [id number] 5mg Take 1 [facility] XL 5 mg 24 4-27 tablet by ity of hr tablet 00:00: mouth [place] 00 daily. Medical Branch oxybutynin 2021-0 Yes [id number] 5mg Take 1 [facility] XL 5 mg 24 4-27 tablet by ity of hr tablet 00:00: mouth [place] 00 daily. Medical Branch oxybutynin 2021-0 Yes [id number] 5mg Take 1 [facility] XL 5 mg 24 4-27 tablet by ity of hr tablet 00:00: mouth [place] 00 daily. Medical Branch oxybutynin 2021-0 Yes [id number] 5mg Take 1 [facility] XL 5 mg 24 4-27 tablet by ity of hr tablet 00:00: mouth [place] 00 daily. Medical Branch oxybutynin 2021-0 Yes [id number] 5mg Take 1 [facility] XL 5 mg 24 4-27 tablet by ity of hr tablet 00:00: mouth [place] 00 daily. Medical Branch oxybutynin 2021-0 Yes [id number] 5mg Take 1 [facility] XL 5 mg 24 4-27 tablet by ity of hr tablet 00:00: mouth [place] 00 daily. Medical Branch oxybutynin 2021-0 Yes [id number] 5mg Take 1 [facility] XL 5 mg 24 4-27 tablet by ity of hr tablet 00:00: mouth [place] 00 daily. Medical Branch oxybutynin 2021-0 Yes [id number] 5mg Take 1 [facility] XL 5 mg 24 4-27 tablet by ity of hr tablet 00:00: mouth [place] 00 daily. Medical Branch oxybutynin 2021-0 2021- No [id number] 5mg Take 1 [facility] XL 5 mg 24 4-27 10-27 tablet by ity of hr tablet 00:00: 00:00 mouth [place] 00 :00 daily. Medical Branch oxybutynin 2021-0 2021- No [id number] 5mg Take 1 [facility] XL 5 mg 24 4-27 10-27 tablet by ity of hr tablet 00:00: 00:00 mouth [place] 00 :00 daily. Medical Branch clopidogreL 2021-0 Yes [id number] 75mg Take 1 [facility] 75 mg 4-11 tablet by ity of tablet 00:00: mouth [place] 00 daily. Medical Branch clopidogreL 2021-0 Yes [id number] 75mg Take 1 [facility] 75 mg 4-11 tablet by ity of tablet 00:00: mouth [place] 00 daily. Medical Branch clopidogreL 2021-0 Yes [id number] 75mg Take 1 [facility] 75 mg 4-11 tablet by ity of tablet 00:00: mouth [place] 00 daily. Medical Branch clopidogreL 2021-0 Yes [id number] 75mg Take 1 [facility] 75 mg 4-11 tablet by ity of tablet 00:00: mouth [place] 00 daily. Medical Branch clopidogreL 2021-0 Yes [id number] 75mg Take 1 [facility] 75 mg 4-11 tablet by ity of tablet 00:00: mouth [place] 00 daily. Medical Branch clopidogreL 2021-0 Yes [id number] 75mg Take 1 [facility] 75 mg 4-11 tablet by ity of tablet 00:00: mouth [place] 00 daily. Medical Branch clopidogreL 2021-0 Yes [id number] 75mg Take 1 [facility] 75 mg 4-11 tablet by ity of tablet 00:00: mouth [place] 00 daily. Medical Branch clopidogreL 2021-0 Yes [id number] 75mg Take 1 [facility] 75 mg 4-11 tablet by ity of tablet 00:00: mouth [place] 00 daily. Medical Branch clopidogreL 2021-0 Yes [id number] 75mg Take 1 [facility] 75 mg 4-11 tablet by ity of tablet 00:00: mouth [place] 00 daily. Medical Branch clopidogreL 2021-0 Yes [id number] 75mg Take 1 [facility] 75 mg 4-11 tablet by ity of tablet 00:00: mouth [place] 00 daily. Medical Branch clopidogreL 2021-0 Yes [id number] 75mg Take 1 [facility] 75 mg 4-11 tablet by ity of tablet 00:00: mouth [place] 00 daily. Medical Branch clopidogreL 2021-0 Yes [id number] 75mg Take 1 [facility] 75 mg 4-11 tablet by ity of tablet 00:00: mouth [place] 00 daily. Medical Branch clopidogreL 2021-0 Yes [id number] 75mg Take 1 [facility] 75 mg 4-11 tablet by ity of tablet 00:00: mouth [place] 00 daily. Medical Branch clopidogreL 2021-0 Yes [id number] 75mg Take 1 [facility] 75 mg 4-11 tablet by ity of tablet 00:00: mouth [place] 00 daily. Medical Branch clopidogreL 2-0 2022- No [id number] 75mg Take 1 [facility] 75 mg 4-11 07-06 tablet by ity of tablet 00:00: 00:00 mouth [place] 00 :00 daily. Medical Branch ezetimibe 2021-0 Yes 10mg Take 1 Univer s (ZETIA) 10 4-07 tablet by ity of mg tablet 00:00: mouth [place] 00 daily. Medical Branch ezetimibe 2021-0 Yes 10mg Take 1 Univer s (ZETIA) 10 4-07 tablet by ity of mg tablet 00:00: mouth [place] 00 daily. Medical Branch ezetimibe 2022-0 Yes 10mg Take 1 Univer s (ZETIA) 10 4-07 tablet by ity of mg tablet 00:00: mouth [place] 00 daily. Medical Branch ezetimibe 2-0 Yes 10mg Take 1 Univer s (ZETIA) [...] mouth [place] 00 daily. Medical Branch ezetimibe 2-0 Yes 10mg Take 1 Univer s (ZETIA) 10 4-07 tablet by ity of mg tablet 00:00: mouth [place] 00 daily. Medical Branch ezetimibe 2-0 Yes 10mg Take 1 Univer s (ZETIA) 10 4-07 tablet by ity of mg tablet 00:00: mouth [place] 00 daily. Medical Branch ezetimibe 2022-0 Yes 10mg Take 1 Univer s (ZETIA) 10 4-07 tablet by ity of mg tablet 00:00: mouth [place] 00 daily. Medical Branch ezetimibe 2022-0 Yes 10mg Take 1 Univer s (ZETIA) 10 4-07 tablet by ity of mg tablet 00:00: mouth [place] 00 daily. Medical Branch ezetimibe 2022-0 Yes 10mg Take 1 Univer s (ZETIA) [...] [place] 35 times Medical daily. Branch hydrALAZINE 0 Yes [id number] 50mg Take 50 mg [facility] 50 mg 3-25 by mouth ity of tablet 10:42: daily. [place] 35 Medical Branch losartan-hy 2021-0 Yes [id number] 1{tbl} Take 1 [facility] drochloroth 3-25 tablet by ity of iazide 10:42: mouth [place] 100-25 mg 35 daily. Medical per tablet Branch metoprolol 2021-0 Yes 25mg Take 25 mg U nivers tartrate 25 3-25 by mouth 2 it y of mg tablet 10:42: (two) [place] 35 times Medical daily. Branch hydrALAZINE Yes [id number] 50mg Take 50 mg [facility] 50 mg 3-25 by mouth ity of tablet 10:42: daily. [address] Branch losartan-hy Yes [id number] 1{tbl} Take 1 [facility] drochloroth 3-25 tablet by ity of iazide 10:42: mouth [place] 100-25 mg 35 daily. Medical per tablet Branch metoprolol 0 Yes 25mg Take 25 mg U nivers tartrate 25 3-25 by mouth 2 it y of mg tablet 10:42: (two) [place] 35 times Medical daily. Branch hydrALAZINE Yes [id number] 50mg Take 50 mg [facility] 50 mg 3-25 by mouth ity of tablet 10:42: daily. [address] Branch losartan-hy Yes [id number] 1{tbl} Take 1 [facility] drochloroth 3-25 tablet by ity of iazide 10:42: mouth [place] 100-25 mg 35 daily. Medical per tablet Branch hydrALAZINE Yes [id number] 50mg Take 50 mg [facility] 50 mg 3-25 by mouth ity of tablet 10:42: daily. [address] Branch losartan-hy Yes [id number] 1{tbl} Take 1 [facility] drochloroth 3-25 tablet by ity of iazide 10:42: mouth [place] 100-25 mg 35 daily. Medical per tablet Branch hydrALAZINE 0 Yes [id number] 50mg Take 50 mg [facility] 50 mg 3-25 by mouth ity of tablet 10:42: daily. [address] Branch losartan-hy Yes [id number] 1{tbl} Take 1 [facility] drochloroth 3-25 tablet by ity of iazide 10:42: mouth [place] 100-25 mg 35 daily. Medical per tablet Branch hydrALAZINE 0 Yes [id number] 50mg Take 50 mg [facility] 50 mg 3-25 by mouth ity of tablet 10:42: daily. [address] losartan-hy 0 Yes [id number] 1{tbl} Take 1 [facility] drochloroth 3-25 tablet by ity of iazide 10:42: mouth [place] 100-25 mg 35 daily. Medical per tablet Branch hydrALAZINE Yes [id number] 50mg Take 50 mg [facility] 50 mg 3-25 by mouth ity of tablet 10:42: daily. [address] losartan-hy Yes [id number] 1{tbl} Take 1 [facility] drochloroth 3-25 tablet by ity of iazide 10:42: mouth [place] 100-25 mg 35 daily. Medical per tablet Branch hydrALAZINE Yes [id number] 50mg Take 50 mg [facility] 50 mg 3-25 by mouth ity of tablet 10:42: daily. [address] losartan-hy Yes [id number] 1{tbl} Take 1 [facility] drochloroth 3-25 tablet by ity of iazide 10:42: mouth [place] 100-25 mg 35 daily. Medical per tablet Branch hydrALAZINE Yes [id number] 50mg Take 50 mg [facility] 50 mg 3-25 by mouth ity of tablet 10:42: daily. [address] losartan-hy Yes [id number] 1{tbl} Take 1 [facility] drochloroth 3-25 tablet by ity of iazide 10:42: mouth [place] 100-25 mg 35 daily. Medical per tablet Branch hydrALAZINE Yes [id number] 50mg Take 50 mg [facility] 50 mg 3-25 by mouth ity of tablet 10:42: daily. [address] losartan-hy Yes [id number] 1{tbl} Take 1 [facility] drochloroth 3-25 tablet by ity of iazide 10:42: mouth [place] 100-25 mg 35 daily. Medical per tablet Branch hydrALAZINE Yes [id number] 50mg Take 50 mg [facility] 50 mg 3-25 by mouth ity of tablet 10:42: daily. [address] losartan-hy Yes [id number] 1{tbl} Take 1 [facility] drochloroth 3-25 tablet by ity of iazide 10:42: mouth [place] 100-25 mg 35 daily. Medical per tablet Branch hydrALAZINE Yes [id number] 50mg Take 50 mg [facility] 50 mg 3-25 by mouth ity of tablet 10:42: daily. [address] losartan-hy Yes [id number] 1{tbl} Take 1 [facility] drochloroth 3-25 tablet by ity of iazide 10:42: mouth [place] 100-25 mg 35 daily. Medical per [facility] Branch hydrALAZINE 0 Yes [id number] 50mg Take 50 mg [facility] 50 mg 3-25 by mouth ity of tablet 10:42: daily. [address] hydrALAZINE 0 Yes [id number] 50mg Take 50 mg [facility] 50 mg 3-25 by mouth ity of tablet 10:42: daily. [address] hydrALAZINE 0 Yes [id number] 50mg Take 50 mg [facility] 50 mg 3-25 by mouth ity of tablet 10:42: daily. [address] hydrALAZINE 0 Yes [id number] 50mg Take 50 mg [facility] 50 mg 3-25 by mouth ity of tablet 10:42: daily. [address] hydrALAZINE 0 Yes [id number] 50mg Take 50 mg [facility] 50 mg 3-25 by mouth ity of tablet 10:42: daily. [address] hydrALAZINE 0 Yes [id number] 50mg Take 50 mg [facility] 50 mg 3-25 by mouth ity of tablet 10:42: daily. [address] hydrALAZINE 0 Yes [id number] 50mg Take 50 mg [facility] 50 mg 3-25 by mouth ity of tablet 10:42: daily. [address] hydrALAZINE 0 Yes [id number] 50mg Take 50 mg [facility] 50 mg 3-25 by mouth ity of tablet 10:42: daily. [address] hydrALAZINE 0 Yes [id number] 50mg Take 50 mg [facility] 50 mg 3-25 by mouth ity of tablet 10:42: daily. [address] hydrALAZINE 0 Yes [id number] 50mg Take 50 mg [facility] 50 mg 3-25 by mouth ity of tablet 10:42: daily. [address] hydrALAZINE 0 Yes [id number] 50mg Take 50 mg [facility] 50 mg 3-25 by mouth ity of tablet 10:42: daily. [address] hydrALAZINE 0 Yes [id number] 50mg Take 50 mg [facility] 50 mg 3-25 by mouth ity of tablet 10:42: daily. [place] [facility] hydrALAZINE 2021-0 Yes [id number] 50mg Take 50 mg [facility] 50 mg 3-25 by mouth ity of tablet 10:42: daily. [place] [address] [facility] hydrALAZINE 2021-0 Yes [id number] 50mg Take 50 mg [facility] 50 mg 3-25 by mouth ity of tablet 10:42: daily. [place] [address] [facility] hydrALAZINE 2021-0 Yes [id number] 50mg Take 50 mg [facility] 50 mg 3-25 by mouth ity of tablet 10:42: daily. [place] [address] [facility] oxybutynin 2021-0 Yes [id number] 5mg Take 1 U nivers XL 5 mg 24 2-24 tablet by ity of hr tablet 00:00: mouth [place] 00 daily. [facility] oxybutynin 2021-0 Yes [id number] 5mg Take 1 [facility] XL 5 mg 24 2-24 tablet by ity of hr tablet 00:00: mouth [place] 00 daily. [facility] oxybutynin 2021-0 Yes [id number] 5mg Take 1 [facility] XL 5 mg 24 2-24 tablet by ity of hr tablet 00:00: mouth [place] 00 daily. [facility] oxybutynin 2021-0 Yes [id number] 5mg Take 1 [facility] XL 5 mg 24 2-24 tablet by ity of hr tablet 00:00: mouth [place] 00 daily. [facility] oxybutynin 2021-0 Yes [id number] 5mg Take 1 [facility] XL 5 mg 24 2-24 tablet by ity of hr tablet 00:00: mouth [place] 00 daily. [facility] oxybutynin 2021-0 Yes [id number] 5mg Take 1 [facility] XL 5 mg 24 2-24 tablet by ity of hr tablet 00:00: mouth [place] 00 daily. [facility] oxybutynin 2021-0 Yes [id number] 5mg Take 1 [facility] XL 5 mg 24 2-24 tablet by ity of hr tablet 00:00: mouth [place] 00 daily. [facility] oxybutynin 2021-0 Yes [id number] 5mg Take 1 [facility] XL 5 mg 24 2-24 tablet by ity of hr tablet 00:00: mouth [place] 00 daily. [facility] oxybutynin 2021-0 Yes [id number] 5mg Take 1 [facility] XL 5 mg 24 2-24 tablet by ity of hr tablet 00:00: mouth [place] 00 daily. [facility] oxybutynin 2021-0 Yes [id number] 5mg Take 1 [facility] XL 5 mg 24 2-24 tablet by ity of hr tablet 00:00: mouth [place] 00 daily. [facility] oxybutynin 2-0 Yes [id number] 5mg Take 1 [facility] XL 5 mg 24 2-24 tablet by ity of hr tablet 00:00: mouth [place] 00 daily. [facility] oxybutynin 2021-0 Yes [id number] 5mg Take 1 [facility] XL 5 mg 24 2-24 tablet by ity of hr tablet 00:00: mouth [place] 00 daily. [facility] oxybutynin 2021-0 Yes [id number] 5mg Take 1 [facility] XL 5 mg 24 2-24 tablet by ity of hr tablet 00:00: mouth [place] 00 daily. [facility] oxybutynin 2021-0 Yes [id number] 5mg Take 1 [facility] XL 5 mg 24 2-24 tablet by ity of hr tablet 00:00: mouth [place] 00 daily. [facility] oxybutynin 2021-0 Yes [id number] 5mg Take 1 [facility] XL 5 mg 24 2-24 tablet by ity of hr tablet 00:00: mouth [place] 00 daily. [facility] oxybutynin 2021-0 Yes [id number] 5mg Take 1 [facility] XL 5 mg 24 2-24 tablet by ity of hr tablet 00:00: mouth [place] 00 daily. [facility] oxybutynin 2021-0 Yes [id number] 5mg Take 1 [facility] XL 5 mg 24 2-24 tablet by ity of hr tablet 00:00: mouth [place] 00 daily. [facility] oxybutynin 2-0 Yes [id number] 5mg Take 1 [facility] XL 5 mg 24 2-24 tablet by ity of hr tablet 00:00: mouth [place] 00 daily. [facility] oxybutynin 2-0 Yes [id number] 5mg Take 1 [facility] XL 5 mg 24 2-24 tablet by ity of hr tablet 00:00: mouth [place] 00 daily. [facility] oxybutynin 2-0 Yes [id number] 5mg Take 1 [facility] XL 5 mg 24 2-24 tablet by ity of hr tablet 00:00: mouth [place] 00 daily. [facility] oxybutynin 2-0 Yes [id number] 5mg Take 1 [facility] XL 5 mg 24 2-24 tablet by ity of hr tablet 00:00: mouth [place] 00 daily. [facility] oxybutynin 2021-0 Yes [id number] 5mg Take 1 [facility] XL 5 mg 24 2-24 tablet by ity of hr tablet 00:00: mouth [place] 00 daily. [facility] oxybutynin 2-0 Yes [id number] 5mg Take 1 [facility] XL 5 mg 24 2-24 tablet by ity of hr tablet 00:00: mouth [place] 00 daily. [facility] oxybutynin 2021-0 Yes [id number] 5mg Take 1 [facility] XL 5 mg 24 2-24 tablet by ity of hr tablet 00:00: mouth [place] 00 daily. [facility] oxybutynin 2021-0 2- No [id number] 5mg Take 1 [facility] XL 5 mg 24 2-24 10-27 tablet by ity of hr tablet 00:00: 00:00 mouth [place] 00 :00 daily. [facility] oxybutynin 2021-0 2- No [id number] 5mg Take 1 [facility] XL 5 mg 24 2-24 10-27 tablet by ity of hr tablet 00:00: 00:00 mouth [place] 00 :00 daily. [facility] ALFUZOSIN 2-0 Yes [id number] TAKE 1 [facility] nivers 10 mg 24 hr 2-07 TABLET BY ity of tablet 00:00: MOUTH [place] 00 EVERY DAY [facility] ALFUZOSIN 2-0 Yes [id number] TAKE 1 [facility] nivers 10 mg 24 hr 2-07 TABLET BY ity of tablet 00:00: MOUTH [place] 00 EVERY DAY [facility] ALFUZOSIN 2-0 Yes [id number] TAKE 1 [facility] nivers 10 mg 24 hr 2-07 TABLET BY ity of tablet 00:00: MOUTH [place] 00 EVERY DAY [facility] ALFUZOSIN 2-0 Yes [id number] TAKE 1 [facility] n[facility] 10 mg 24 hr 2-07 TABLET BY ity of tablet 00:00: MOUTH [place] 00 EVERY DAY [facility] ALFUZOSIN 2-0 Yes [id number] TAKE 1 [facility] n[facility] 10 mg 24 hr 2-07 TABLET BY ity of tablet 00:00: MOUTH [place] 00 EVERY DAY [facility] ALFUZOSIN 2022-0 Yes [id number] TAKE 1 [facility] n[facility] 10 mg 24 hr 2-07 TABLET BY ity of tablet 00:00: MOUTH [place] 00 EVERY DAY [facility] ALFUZOSIN 2022-0 Yes [id number] TAKE 1 [facility] n[facility] 10 mg 24 hr 2-07 TABLET BY ity of tablet 00:00: MOUTH [place] 00 EVERY DAY [facility] ALFUZOSIN 2022-0 Yes [id number] TAKE 1 [facility] n[facility] 10 mg 24 hr 2-07 TABLET BY ity of tablet 00:00: MOUTH [place] 00 EVERY DAY [facility] ALFUZOSIN 2022-0 Yes [id number] TAKE 1 [facility] n[facility] 10 mg 24 hr 2-07 TABLET BY ity of tablet 00:00: MOUTH [place] 00 EVERY DAY [facility] ALFUZOSIN 2022-0 Yes [id number] TAKE 1 [facility] n[facility] 10 mg 24 hr 2-07 TABLET BY ity of tablet 00:00: MOUTH [place] 00 EVERY DAY [facility] ALFUZOSIN 2022-0 Yes [id number] TAKE 1 U nivers 10 mg 24 hr 2-07 TABLET BY ity of tablet 00:00: MOUTH [place] 00 EVERY DAY [facility] ALFUZOSIN 2022-0 Yes [id number] TAKE 1 [facility] n[facility] 10 mg 24 hr 2-07 TABLET BY ity of tablet 00:00: MOUTH [place] 00 EVERY DAY [facility] ALFUZOSIN 2022-0 Yes [id number] TAKE 1 [facility] n[facility] 10 mg 24 hr 2-07 TABLET BY ity of tablet 00:00: MOUTH [place] 00 EVERY DAY [facility] ALFUZOSIN 2022-0 Yes [id number] TAKE 1 [facility] n[facility] 10 mg 24 hr 2-07 TABLET BY ity of tablet 00:00: MOUTH [place] 00 EVERY DAY [facility] ALFUZOSIN 2022-0 Yes [id number] TAKE 1 [facility] n[facility] 10 mg 24 hr 2-07 TABLET BY ity of tablet 00:00: MOUTH [place] 00 EVERY DAY [facility] ALFUZOSIN 2022-0 Yes [id number] TAKE 1 [facility] nivers 10 mg 24 hr 2-07 TABLET BY ity of tablet 00:00: MOUTH [place] 00 EVERY DAY [facility] ALFUZOSIN 2022-0 Yes [id number] TAKE 1 [facility] n[facility] 10 mg 24 hr 2-07 TABLET BY ity of tablet 00:00: MOUTH [place] 00 EVERY DAY [facility] ALFUZOSIN 2-0 Yes [id number] TAKE 1 [facility] n[facility] 10 mg 24 hr 2-07 TABLET BY ity of tablet 00:00: MOUTH EVERY DAY [facility] ALFUZOSIN 2-0 Yes [id number] TAKE 1 [facility] 10 mg 24 hr 2-07 TABLET BY ity of tablet 00:00: MOUTH EVERY DAY [facility] ALFUZOSIN 2-0 Yes [id number] TAKE 1 [facility] 10 mg 24 hr 2-07 TABLET BY ity of tablet 00:00: MOUTH EVERY DAY [facility] ALFUZOSIN 2-0 Yes [id number] TAKE 1 [facility] 10 mg 24 hr 2-07 TABLET BY ity of tablet 00:00: MOUTH EVERY DAY [facility] ALFUZOSIN 2-0 Yes [id number] TAKE 1 [facility] 10 mg 24 hr 2-07 TABLET BY ity of tablet 00:00: MOUTH [place] EVERY DAY [facility] ALFUZOSIN 2-0 Yes [id number] TAKE 1 [facility] n[facility] 10 mg 24 hr 2-07 TABLET BY ity of tablet 00:00: MOUTH EVERY DAY [facility] ALFUZOSIN 2-0 Yes [id number] TAKE 1 [facility] 10 mg 24 hr 2-07 TABLET BY ity of tablet 00:00: MOUTH [place] 00 EVERY DAY [facility] ALFUZOSIN 2-0 Yes [id number] TAKE 1 [facility] n[facility] 10 mg 24 hr 2-07 TABLET BY ity of tablet 00:00: MOUTH [place] EVERY DAY [facility] ALFUZOSIN 2-0 Yes [id number] TAKE 1 [facility] 10 mg 24 hr 2-07 TABLET BY ity of tablet 00:00: MOUTH 00 EVERY DAY [facility] ALFUZOSIN 2-0 Yes [id number] TAKE 1 [facility] n[facility] 10 mg 24 hr 2-07 TABLET BY ity of tablet 00:00: MOUTH [place] EVERY DAY [facility] ALFUZOSIN 2022-0 2- No [id number] TAKE 1 [facility] 10 mg 24 hr 2-07 11-04 TABLET BY it y of tablet 00:00: 00:00 MOUTH [place] 00 :00 EVERY DAY [facility] LACTULOSE 2-0 Yes [id number] TAKE 15 ML [facility] 10 gram/15 1-20 BY MOUTH ity o f mL solution 00:00: DAILY. [place] [facility] LACTULOSE 2021-0 Yes [id number] TAKE 15 ML [facility] 10 gram/15 1-20 BY MOUTH ity o f mL solution 00:00: DAILY. [place] [facility] LACTULOSE 2021-0 Yes [id number] TAKE 15 ML [facility] 10 gram/15 1-20 BY MOUTH ity o f mL solution 00:00: DAILY. [facility] [place] [facility] LACTULOSE 2021-0 Yes [id number] TAKE 15 ML [facility] 10 gram/15 1-20 BY MOUTH ity o f mL solution 00:00: DAILY. [facility] [place] [facility] LACTULOSE 0 Yes [id number] TAKE 15 ML [facility] 10 gram/15 1-20 BY MOUTH ity o f mL solution 00:00: DAILY. [facility] [place] [facility] LACTULOSE 2021-0 Yes [id number] TAKE 15 ML [facility] 10 gram/15 1-20 BY MOUTH ity o f mL solution 00:00: DAILY. [facility] [place] [facility] LACTULOSE 2021-0 Yes [id number] TAKE 15 ML [facility] 10 gram/15 1-20 BY MOUTH ity o f mL solution 00:00: DAILY. [facility] [place] [facility] LACTULOSE 2021-0 Yes [id number] TAKE 15 ML [facility] 10 gram/15 1-20 BY MOUTH ity o f mL solution 00:00: DAILY. [facility] [place] [facility] LACTULOSE 2021-0 Yes [id number] TAKE 15 ML [facility] 10 gram/15 1-20 BY MOUTH ity o f mL solution 00:00: DAILY. [facility] [place] [facility] LACTULOSE 2021-0 Yes [id number] TAKE 15 ML [facility] 10 gram/15 1-20 BY MOUTH ity o f mL solution 00:00: DAILY. [facility] [place] [facility] LACTULOSE 2021-0 Yes [id number] TAKE 15 ML [facility] 10 gram/15 1-20 BY MOUTH ity o f mL solution 00:00: DAILY. [facility] [place] [facility] LACTULOSE 2021-0 Yes [id number] TAKE 15 ML [facility] 10 gram/15 1-20 BY MOUTH ity o f mL solution 00:00: DAILY. [place] [facility] LACTULOSE 2021-0 Yes [id number] TAKE 15 ML [facility] 10 gram/15 1-20 BY MOUTH ity o f mL solution 00:00: DAILY. [place] [facility] LACTULOSE 2021-0 Yes [id number] TAKE 15 ML [facility] 10 gram/15 1-20 BY MOUTH ity o f mL solution 00:00: DAILY. [place] [facility] LACTULOSE 2021-0 Yes [id number] TAKE 15 ML [facility] 10 gram/15 1-20 BY MOUTH ity o f mL solution 00:00: DAILY. [place] [facility] LACTULOSE 2021-0 Yes [id number] TAKE 15 ML [facility] 10 gram/15 1-20 BY MOUTH ity o f mL solution 00:00: DAILY. [place] [facility] LACTULOSE 2021-0 Yes [id number] TAKE 15 ML [facility] 10 gram/15 1-20 BY MOUTH ity o f mL solution 00:00: DAILY. [place] [facility] LACTULOSE 2021-0 Yes [id number] TAKE 15 ML [facility] 10 gram/15 1-20 BY MOUTH ity o f mL solution 00:00: DAILY. [place] [facility] LACTULOSE 2021-0 Yes [id number] TAKE 15 ML [facility] 10 gram/15 1-20 BY MOUTH ity o f mL solution 00:00: DAILY. [place] [facility] LACTULOSE 2021-0 Yes [id number] TAKE 15 ML [facility] 10 gram/15 1-20 BY MOUTH ity o f mL solution 00:00: DAILY. [place] [facility] LACTULOSE 2021-0 Yes [id number] TAKE 15 ML [facility] 10 gram/15 1-20 BY MOUTH ity o f mL solution 00:00: DAILY. [place] [facility] LACTULOSE 2021-0 Yes [id number] TAKE 15 ML [facility] 10 gram/15 1-20 BY MOUTH ity o f mL solution 00:00: DAILY. [place] [facility] LACTULOSE 2021-0 Yes [id number] TAKE 15 ML [facility] 10 gram/15 1-20 BY MOUTH ity o f mL solution 00:00: DAILY. [place] [facility] LACTULOSE 2021-0 Yes [id number] TAKE 15 ML [facility] 10 gram/15 1-20 BY MOUTH ity o f mL solution 00:00: DAILY. [place] [facility] LACTULOSE 2021-0 Yes [id number] TAKE 15 ML [facility] 10 gram/15 1-20 BY MOUTH ity o f mL solution 00:00: DAILY. [place] [facility] LACTULOSE 2021-0 Yes [id number] TAKE 15 ML [facility] 10 gram/15 1-20 BY MOUTH ity o f mL solution 00:00: DAILY. [facility] [place] [facility] LACTULOSE 2021-0 Yes [id number] TAKE 15 ML [facility] 10 gram/15 1-20 BY MOUTH ity o f mL solution 00:00: DAILY. [place] [facility] LACTULOSE 2021-0 Yes [id number] TAKE 15 ML [facility] 10 gram/15 1-20 BY MOUTH ity o f mL solution 00:00: DAILY. [facility] [place] [facility] LACTULOSE 2021-0 Yes [id number] TAKE 15 ML [facility] 10 gram/15 1-20 BY MOUTH ity o f mL solution 00:00: DAILY. [facility] [place] [facility] LACTULOSE 2021-0 Yes [id number] TAKE 15 ML [facility] 10 gram/15 1-20 BY MOUTH ity o f mL solution 00:00: DAILY. [facility] [place] [facility] LACTULOSE 2021-0 Yes [id number] TAKE 15 ML [facility] 10 gram/15 1-20 BY MOUTH ity o f mL solution 00:00: DAILY. [facility] [place] [facility] LACTULOSE 2021-0 Yes [id number] TAKE 15 ML [facility] 10 gram/15 1-20 BY MOUTH ity o f mL solution 00:00: DAILY. [facility] [place] [facility] LACTULOSE 2021-0 Yes [id number] TAKE 15 ML [facility] 10 gram/15 1-20 BY MOUTH ity o f mL solution 00:00: DAILY. [facility] [place] [facility] LACTULOSE 2021-0 Yes [id number] TAKE 15 ML [facility] 10 gram/15 1-20 BY MOUTH ity o f mL solution 00:00: DAILY. [facility] [place] [facility] LACTULOSE 2021-0 Yes [id number] TAKE 15 ML [facility] 10 gram/15 1-20 BY MOUTH [facility] o f mL solution 00:00: DAILY. [place] [facility] LACTULOSE 2021-0 Yes [id number] TAKE 15 ML [facility] 10 gram/15 1-20 BY MOUTH ity o f mL solution 00:00: DAILY. [place] [facility] LACTULOSE 2021-0 Yes [id number] TAKE 15 ML [facility] 10 gram/15 1-20 BY MOUTH ity o f mL solution 00:00: DAILY. [place] [facility] LACTULOSE 2021-0 Yes [id number] TAKE 15 ML [facility] 10 gram/15 1-20 BY MOUTH ity o f mL solution 00:00: DAILY. [facility] [place] [facility] LACTULOSE 2021-0 Yes [id number] TAKE 15 ML [facility] 10 gram/15 1-20 BY MOUTH ity o f mL solution 00:00: DAILY. [place] [facility] LACTULOSE 2021-0 Yes [id number] TAKE 15 ML [facility] 10 gram/15 1-20 BY MOUTH ity o f mL solution 00:00: DAILY. [place] [facility] LACTULOSE 2021-0 Yes [id number] TAKE 15 ML [facility] 10 gram/15 1-20 BY MOUTH ity o f mL solution 00:00: DAILY. [place] [facility] LACTULOSE 2021-0 Yes [id number] TAKE 15 ML [facility] 10 gram/15 1-20 BY MOUTH ity o f mL solution 00:00: DAILY. [place] [facility] LACTULOSE 2021-0 Yes [id number] TAKE 15 ML [facility] 10 gram/15 1-20 BY MOUTH ity o f mL solution 00:00: DAILY. [facility] [place] [facility] LACTULOSE 2021-0 Yes [id number] TAKE 15 ML [facility] 10 gram/15 1-20 BY MOUTH ity o f mL solution 00:00: DAILY. [facility] [place] [facility] LACTULOSE 2021-0 Yes [id number] TAKE 15 ML [facility] 10 gram/15 1-20 BY MOUTH ity o f mL solution 00:00: DAILY. [facility] [place] [facility] LACTULOSE 2021-0 Yes [id number] TAKE 15 ML [facility] 10 gram/15 1-20 BY MOUTH ity o f mL solution 00:00: DAILY. [facility] [place] [facility] LACTULOSE 2021-0 Yes [id number] TAKE 15 ML [facility] 10 gram/15 1-20 BY MOUTH ity o f mL solution 00:00: DAILY. [place] [facility] LACTULOSE 2021-0 Yes [id number] TAKE 15 ML [facility] 10 gram/15 1-20 BY MOUTH ity o f mL solution 00:00: DAILY. [place] [facility] LACTULOSE 2021-0 Yes [id number] TAKE 15 ML [facility] 10 gram/15 1-20 BY MOUTH ity o f mL solution 00:00: DAILY. [place] [facility] LACTULOSE 2021-0 Yes [id number] TAKE 15 ML [facility] 10 gram/15 1-20 BY MOUTH ity o f mL solution 00:00: DAILY. [place] [facility] LACTULOSE 2021-0 Yes [id number] TAKE 15 ML [facility] 10 gram/15 1-20 BY MOUTH ity o f mL solution 00:00: DAILY. [place] [facility] LACTULOSE 2021-0 Yes [id number] TAKE 15 ML [facility] 10 gram/15 1-20 BY MOUTH ity o f mL solution 00:00: DAILY. [place] [facility] LACTULOSE 2021-0 Yes [id number] TAKE 15 ML [facility] 10 gram/15 1-20 BY MOUTH ity o f mL solution 00:00: DAILY. [place] [facility] LACTULOSE 2021-0 Yes [id number] TAKE 15 ML [facility] 10 gram/15 1-20 BY MOUTH ity o f mL solution 00:00: DAILY. [place] [facility] LACTULOSE 2021-0 Yes [id number] TAKE 15 ML [facility] 10 gram/15 1-20 BY MOUTH ity o f mL solution 00:00: DAILY. [place] [facility] LACTULOSE 2021-0 Yes [id number] TAKE 15 ML [facility] 10 gram/15 1-20 BY MOUTH ity o f mL solution 00:00: DAILY. [place] [facility] LACTULOSE 2021-0 Yes [id number] TAKE 15 ML [facility] 10 gram/15 1-20 BY MOUTH ity o f mL solution 00:00: DAILY. [place] [facility] LACTULOSE 2021-0 Yes [id number] TAKE 15 ML [facility] 10 gram/15 1-20 BY MOUTH ity o f mL solution 00:00: DAILY. [place] [facility] LACTULOSE 2021-0 Yes [id number] TAKE 15 ML [facility] 10 gram/15 1-20 BY MOUTH ity o f mL solution 00:00: DAILY. [place] [facility] LACTULOSE 2021-0 Yes [id number] TAKE 15 ML [facility] 10 gram/15 1-20 BY MOUTH ity o f mL solution 00:00: DAILY. [place] [facility] LACTULOSE 2021-0 Yes [id number] TAKE 15 ML [facility] 10 gram/15 1-20 BY MOUTH ity o f mL solution 00:00: DAILY. [place] [facility] LACTULOSE 2021-0 Yes [id number] TAKE 15 ML [facility] 10 gram/15 1-20 BY MOUTH ity o f mL solution 00:00: DAILY. [place] [facility] LACTULOSE 2021-0 Yes [id number] TAKE 15 ML [facility] 10 gram/15 1-20 BY MOUTH ity o f mL solution 00:00: DAILY. [place] [facility] LACTULOSE 2021-0 Yes [id number] TAKE 15 ML [facility] 10 gram/15 1-20 BY MOUTH ity o f mL solution 00:00: DAILY. [place] [facility] LACTULOSE 2021-0 Yes [id number] TAKE 15 ML [facility] 10 gram/15 1-20 BY MOUTH ity o f mL solution 00:00: DAILY. [facility] [place] [facility] LACTULOSE 2021-0 Yes [id number] TAKE 15 ML [facility] 10 gram/15 1-20 BY MOUTH ity o f mL solution 00:00: DAILY. [facility] [place] [facility] LACTULOSE 2021-0 Yes [id number] TAKE 15 ML [facility] 10 gram/15 1-20 BY MOUTH ity o f mL solution 00:00: DAILY. [facility] [place] [facility] LACTULOSE 2021-0 Yes [id number] TAKE 15 ML [facility] 10 gram/15 1-20 BY MOUTH ity o f mL solution 00:00: DAILY. [facility] [place] [facility] LACTULOSE 2021-0 Yes [id number] TAKE 15 ML [facility] 10 gram/15 1-20 BY MOUTH ity o f mL solution 00:00: DAILY. [facility] [place] [facility] LACTULOSE 2021-0 Yes [id number] TAKE 15 ML [facility] 10 gram/15 1-20 BY MOUTH ity o f mL solution 00:00: DAILY. [facility] [place] [facility] LACTULOSE 2021-0 Yes [id number] TAKE 15 ML [facility] 10 gram/15 1-20 BY MOUTH ity o f mL solution 00:00: DAILY. [place] [facility] LACTULOSE 2021-0 Yes [id number] TAKE 15 ML [facility] 10 gram/15 1-20 BY MOUTH ity o f mL solution 00:00: DAILY. [place] [facility] LACTULOSE 2021-0 Yes [id number] TAKE 15 ML [facility] 10 gram/15 1-20 BY MOUTH ity o f mL solution 00:00: DAILY. [place] [facility] LACTULOSE 2021-0 Yes [id number] TAKE 15 ML [facility] 10 gram/15 1-20 BY MOUTH ity o f mL solution 00:00: DAILY. [place] [facility] LACTULOSE 2022-0 Yes [id number] TAKE 15 ML [facility] 10 gram/15 1-20 BY MOUTH ity o f mL solution 00:00: DAILY. [place] [facility] LACTULOSE 0 Yes [id number] TAKE 15 ML [facility] 10 gram/15 1-20 BY MOUTH ity o f mL solution 00:00: DAILY. [place] [facility] LACTULOSE 0 Yes [id number] TAKE 15 ML [facility] 10 gram/15 1-20 BY MOUTH ity o f mL solution 00:00: DAILY. [place] [facility] LACTULOSE 0 Yes [id number] TAKE 15 ML [facility] 10 gram/15 1-20 BY MOUTH ity o f mL solution 00:00: DAILY. [place] [facility] LACTULOSE Yes [id number] TAKE 15 ML [facility] 10 gram/15 1-20 BY MOUTH ity o f mL solution 00:00: DAILY. [place] [facility] LACTULOSE Yes [id number] TAKE 15 ML [facility] 10 gram/15 1-20 BY MOUTH ity o f mL solution 00:00: DAILY. [place] [facility] LACTULOSE Yes [id number] TAKE 15 ML [facility] 10 gram/15 1-20 BY MOUTH it[facility] o f mL solution 00:00: DAILY. [place] [facility] LACTULOSE 3- No [id number] TAKE 15 ML [facility] 10 gram/15 1-20 04-10 BY MOUTH ity of mL solution 00:00: 00:00 DAILY. [place] 00 :00 [facility] potassium 0 Yes [id number] 10meq Take 1 [facility] chloride 1-13 tablet by ity of (K-TAB) 10 00:00: mouth [place] mEq CR 00 daily. Medical tablet Branch potassium 0 Yes [id number] 10meq Take 1 [facility] chloride 1-13 tablet by ity of (K-TAB) 10 00:00: mouth [place] mEq CR 00 daily. Medical tablet Branch potassium 0 Yes [id number] 10meq Take 1 [facility] chloride 1-13 tablet by ity of (K-TAB) 10 00:00: mouth [place] mEq CR 00 daily. Medical tablet Branch potassium 0 Yes [id number] 10meq Take 1 [facility] chloride 1-13 tablet by ity of (K-TAB) 10 00:00: mouth [place] mEq CR 00 daily. Medical tablet Branch potassium 0 Yes [id number] 10meq Take 1 [facility] chloride 1-13 tablet by ity of (K-TAB) 10 00:00: mouth [place] mEq CR 00 daily. Medical tablet Branch potassium 0 Yes [id number] 10meq Take 1 [facility] chloride 1-13 tablet by ity of (K-TAB) 10 00:00: mouth [place] mEq CR 00 daily. Medical tablet Branch potassium 0 Yes [id number] 10meq Take 1 [facility] chloride 1-13 tablet by ity of (K-TAB) 10 00:00: mouth [place] mEq CR 00 daily. Medical tablet Branch potassium 0 Yes [id number] 10meq Take 1 [facility] chloride 1-13 tablet by ity of (K-TAB) 10 00:00: mouth [place] mEq CR 00 daily. Medical tablet Branch potassium Yes [id number] 10meq Take 1 [facility] chloride 1-13 tablet by ity of (K-TAB) 10 00:00: mouth [place] mEq CR 00 daily. Medical tablet Branch potassium 0 Yes [id number] 10meq Take 1 [facility] chloride 1-13 tablet by ity of (K-TAB) 10 00:00: mouth [place] mEq CR 00 daily. Medical tablet Branch potassium 0 Yes [id number] 10meq Take 1 [facility] chloride 1-13 tablet by ity of (K-TAB) 10 00:00: mouth [place] mEq CR 00 daily. Medical tablet Branch potassium Yes [id number] 10meq Take 1 [facility] chloride 1-13 tablet by ity of (K-TAB) 10 00:00: mouth [place] mEq CR 00 daily. Medical tablet Branch potassium 0 Yes [id number] 10meq Take 1 [facility] chloride 1-13 tablet by ity of (K-TAB) 10 00:00: mouth [place] mEq CR 00 daily. Medical tablet Branch potassium 0 Yes [id number] 10meq Take 1 [facility] chloride 1-13 tablet by ity of (K-TAB) 10 00:00: mouth [place] mEq CR 00 daily. Medical tablet Branch potassium 2021-0 2021- No [id number] 10meq Take 1 [facility] chloride 1-13 07-06 tablet by ity o f (K-TAB) 10 00:00: 00:00 mouth [place] mEq CR 00 :00 daily. Medical tablet Branch furosemide 2021- No [id number] 40mg Take 1 [facility] 40 mg 1-13 05-12 tablet by ity of tablet 00:00: 00:00 mouth [place] 00 :00 daily. [facility] furosemide 2021- No [id number] 40mg Take 1 [facility] 40 mg 1-13 05-12 tablet by ity of tablet 00:00: 00:00 mouth [place] 00 :00 daily. [facility] oxybutynin 2020-02 Yes [id number] 5mg Take 1 [facility] XL 5 mg 24 1-15 tablet by ity of hr tablet 00:00: mouth [place] 00 daily. [facility] oxybutynin 2020-02 Yes [id number] 5mg Take 1 [facility] n[facility] XL 5 mg 24 1-15 tablet by ity of hr tablet 00:00: mouth [place] 00 daily. [facility] oxybutynin 2020-02 Yes [id number] 5mg Take 1 [facility] n[facility] XL 5 mg 24 1-15 tablet by ity of hr tablet 00:00: mouth [place] 00 daily. [facility] oxybutynin 2020-02 Yes [id number] 5mg Take 1 [facility] n[facility] XL 5 mg 24 1-15 tablet by ity of hr tablet 00:00: mouth [place] 00 daily. [facility] oxybutynin 2020-02 Yes [id number] 5mg Take 1 [facility] n[facility] XL 5 mg 24 1-15 tablet by ity of hr tablet 00:00: mouth [place] 00 daily. [facility] oxybutynin 2020-02 Yes [id number] 5mg Take 1 [facility] n[facility] XL 5 mg 24 1-15 tablet by ity of hr tablet 00:00: mouth [place] 00 daily. [facility] oxybutynin 2020-02 Yes [id number] 5mg Take 1 [facility] nivers XL 5 mg 24 1-15 tablet by ity of hr tablet 00:00: mouth [place] 00 daily. [facility] oxybutynin 2020-02 Yes [id number] 5mg Take 1 [facility] XL 5 mg 24 1-15 tablet by ity of hr tablet 00:00: mouth [place] 00 daily. [facility] oxybutynin 2020-02 Yes [id number] 5mg Take 1 [facility] XL 5 mg 24 1-15 tablet by [facility] of hr tablet 00:00: mouth [place] 00 daily. [facility] oxybutynin 2020-02 Yes [id number] 5mg Take 1 [facility] XL 5 mg 24 1-15 tablet by ity of hr tablet 00:00: mouth [place] 00 daily. [facility] oxybutynin 2020-02 Yes [id number] 5mg Take 1 [facility] XL 5 mg 24 1-15 tablet by ity of hr tablet 00:00: mouth [place] 00 daily. [facility] oxybutynin 2020-02 Yes [id number] 5mg Take 1 [facility] XL 5 mg 24 1-15 tablet by [facility]y of hr tablet 00:00: mouth [place] 00 daily. [facility] oxybutynin 2020-02 Yes [id number] 5mg Take 1 [facility] XL 5 mg 24 1-15 tablet by [facility] of hr tablet 00:00: mouth [place] 00 daily. [facility] oxybutynin 2020-02 Yes [id number] 5mg Take 1 [facility] XL 5 mg 24 1-15 tablet by [facility] of hr tablet 00:00: mouth [place] 00 daily. [facility] oxybutynin 2020-02 Yes [id number] 5mg Take 1 [facility] XL 5 mg 24 1-15 tablet by ity of hr tablet 00:00: mouth [place] 00 daily. [facility] oxybutynin 2020-02 Yes [id number] 5mg Take 1 [facility] XL 5 mg 24 1-15 tablet by ity of hr tablet 00:00: mouth [place] 00 daily. [facility] oxybutynin 2020-02 Yes [id number] 5mg Take 1 [facility] XL 5 mg 24 1-15 tablet by ity of hr tablet 00:00: mouth [place] 00 daily. [facility] oxybutynin 2020-02 Yes [id number] 5mg Take 1 [facility] XL 5 mg 24 1-15 tablet by ity of hr tablet 00:00: mouth [place] 00 daily. [facility] oxybutynin 2020-02 Yes [id number] 5mg Take 1 [facility] XL 5 mg 24 1-15 tablet by ity of hr tablet 00:00: mouth [place] 00 daily. [facility] oxybutynin 2020-02 Yes [id number] 5mg Take 1 [facility] XL 5 mg 24 1-15 tablet by ity of hr tablet 00:00: mouth [place] 00 daily. [facility] oxybutynin 2020-02 Yes [id number] 5mg Take 1 [facility] XL 5 mg 24 1-15 tablet by [facility]y of hr tablet 00:00: mouth [place] 00 daily. [facility] oxybutynin 2020-02 Yes [id number] 5mg Take 1 [facility] XL 5 mg 24 1-15 tablet by ity of hr tablet 00:00: mouth [place] 00 daily. [facility] oxybutynin 2020-02 Yes [id number] 5mg Take 1 [facility] XL 5 mg 24 1-15 tablet by ity of hr tablet 00:00: mouth [place] 00 daily. [facility] oxybutynin 2020-02 Yes [id number] 5mg Take 1 [facility] XL 5 mg 24 1-15 tablet by ity of hr tablet 00:00: mouth [place] 00 daily. [facility] oxybutynin 2020-02- No [id number] 5mg Take 1 [facility] 5 mg 24 1-15 10-27 tablet by ity of hr tablet 00:00: 00:00 mouth [place] 00 :00 daily. [facility] oxybutynin 2020-02- No [id number] 5mg Take 1 [facility] XL 5 mg 24 1-15 10-27 tablet by ity of hr tablet 00:00: 00:00 mouth [place] 00 :00 daily. [facility] blood sugar 2020-02 Yes [id number] Test U nivers diagnostic 1-10 glucose ity of strip 00:00: qid [place] 00 [facility] Transparent 2020- Yes [id number] Use as [facility] [employer] 1-10 [id number] directed ity of (TEGADERM) 00:00: qod [place] 2 X 2 3/4 " 00 Medical [facility] Branch blood sugar 2020-02 Yes [id number] Test U nivers diagnostic 1-10 glucose ity of strip 00:00: qid [place] 00 Medical [facility] Transparent 2020-02 Yes [id number] Use as [employer] 1-10 [id number] directed ity of (TEGADERM) 00:00: qod [place] 2 X 2 3/4 " 00 Medical [facility] blood sugar 2020-02 Yes [id number] Test U nivers diagnostic 1-10 glucose ity of strip 00:00: qid [place] 00 Medical [facility] Transparent 2020-02 Yes [id number] Use as [employer] 1-10 [id number] directed ity of (TEGADERM) 00:00: qod [place] 2 X 2 3/4 " 00 Medical dg Branch blood sugar 2020-02 Yes [id number] Test U nivers diagnostic 1-10 glucose ity of strip 00:00: qid [place] [facility] Transparent 2020-02 Yes [id number] Use as [employer] 1-10 [id number] directed ity of (TEGADERM) 00:00: qod [place] 2 X 2 3/4 " 00 Medical dg Branch blood sugar 2020-02 Yes [id number] Test U nivers diagnostic 1-10 glucose ity of strip 00:00: [facility] Transparent 2020-02 Yes [id number] Use as [employer] 1-10 [id number] directed ity of (TEGADERM) 00:00: qod [place] 2 X 2 3/4 " 00 Medical [facility] Branch blood sugar 2020-02 Yes [id number] Test U nivers diagnostic 1-10 glucose ity of strip 00:00: d [place] [facility] Transparent 2020-02 Yes [id number] Use as [employer] 1-10 [id number] directed ity of (TEGADERM) 00:00: qod [place] 2 X 2 3/4 " 00 Medical dg Branch blood sugar 2020-02 Yes [id number] Test U nivers diagnostic 1-10 glucose ity of strip 00:00: [facility] Branch Transparent 2020-02 Yes [id number] Use as [employer] 1-10 [id number] directed ity of (TEGADERM) 00:00: qod [place] 2 X 2 3/4 " 00 Medical [facility] Branch blood sugar 2020-02 Yes [id number] Test U nivers diagnostic 1-10 glucose ity of strip 00:00: [facility] Branch Transparent 2020-02 Yes [id number] Use as [employer] 1-10 [id number] directed ity of (TEGADERM) 00:00: qod [place] 2 X 2 3/4 " 00 Medical [facility] Branch blood sugar 2020-02 Yes [id number] Test U nivers diagnostic 1-10 glucose ity of strip 00:00: [facility] Branch Transparent 2020-02 Yes [id number] Use as [employer] 1-10 [id number] directed ity of (TEGADERM) 00:00: qod [place] 2 X 2 3/4 " 00 Medical [facility] Branch blood sugar 2020-02 Yes [id number] Test U nivers diagnostic 1-10 glucose ity of strip 00:00: qid [place] 00 Medical Branch Transparent 2020-02 Yes [id number] Use as [employer] 1-10 [id number] directed ity of (TEGADERM) 00:00: qod [place] 2 X 2 3/4 " 00 Medical [facility] Branch blood sugar 2020-02 Yes [id number] Test U nivers diagnostic 1-10 glucose ity of strip 00:00: d [place] 00 Medical Branch Transparent 2020-02 Yes [id number] Use as [employer] 1-10 [id number] directed ity of (TEGADERM) 00:00: qod [place] 2 X 2 3/4 " 00 Medical [facility] Branch blood sugar 2020-02 Yes [id number] Test U nivers diagnostic 1-10 glucose ity of strip 00:00: qid [place] 00 Medical Branch Transparent 2020-02 Yes [id number] Use as [employer] 1-10 [id number] directed ity of (TEGADERM) 00:00: qod [place] 2 X 2 3/4 " 00 Medical [facility] Branch blood sugar 2020-02 Yes [id number] Test U nivers diagnostic 1-10 glucose ity of strip 00:00: d [place] 00 Medical Branch Transparent 2020-02 Yes [id number] Use as [employer] 1-10 [id number] directed ity of (TEGADERM) 00:00: qod [place] 2 X 2 3/4 " 00 Medical [facility] Branch blood sugar 2020-02 Yes [id number] Test U nivers diagnostic 1-10 glucose ity of strip 00:00: d [place] 00 Medical Branch Transparent 2020-02 Yes [id number] Use as [employer] 1-10 [id number] directed ity of (TEGADERM) 00:00: qod [place] 2 X 2 3/4 " 00 Medical [facility] Branch blood sugar 2020-02 Yes [id number] Test U nivers diagnostic 1-10 glucose ity of strip 00:00: d [place] [facility] Transparent 2020-02 Yes [id number] Use as [employer] 1-10 [id number] directed ity of (TEGADERM) 00:00: qod [place] 2 X 2 3/4 " 00 Medical [facility] Branch blood sugar 2020-02 Yes [id number] Test U nivers diagnostic 1-10 glucose ity of strip 00:00: qid [place] 00 Medical Branch Transparent 2020-02 Yes [id number] Use as [employer] 1-10 [id number] directed ity of (TEGADERM) 00:00: qod [place] 2 X 2 3/4 " 00 Medical [facility] Branch blood sugar 2020-02 Yes [id number] Test U nivers diagnostic 1-10 glucose ity of strip 00:00: d [place] 00 Medical Branch Transparent 2020-02 Yes [id number] Use as [employer] 1-10 [id number] directed ity of (TEGADERM) 00:00: qod [place] 2 X 2 3/4 " 00 Medical [facility] Branch blood sugar 2020-02 Yes [id number] Test U nivers diagnostic 1-10 glucose ity of strip 00:00: qid [place] 00 Medical Branch Transparent 2020-02 Yes [id number] Use as [employer] 1-10 [id number] directed ity of (TEGADERM) 00:00: qod [place] 2 X 2 3/4 " 00 Medical [facility] Branch blood sugar 2020-02 Yes [id number] Test U nivers diagnostic 1-10 glucose ity of strip 00:00: d [place] 00 Medical Branch Transparent 2020-02 Yes [id number] Use as [employer] 1-10 [id number] directed ity of (TEGADERM) 00:00: qod [place] 2 X 2 3/4 " 00 Medical [facility] Branch blood sugar 2020-02 Yes [id number] Test U nivers diagnostic 1-10 glucose ity of strip 00:00: d [place] 00 Medical Branch Transparent 2020-02 Yes [id number] Use as [facility] [employer] 1-10 [id number] directed ity of (TEGADERM) 00:00: qod [place] 2 X 2 3/4 " 00 Medical [facility] Branch blood sugar 2020-02 Yes [id number] Test U nivers diagnostic 1-10 glucose ity of strip 00:00: d [place] 00 Medical Branch Transparent 2020-02 Yes [id number] Use as [employer] 1-10 [id number] directed ity of (TEGADERM) 00:00: qod [place] 2 X 2 3/4 " 00 Medical [facility] Branch blood sugar 2020-02 Yes [id number] Test U nivers diagnostic 1-10 glucose ity of strip 00:00: qid [place] 00 Medical Branch Transparent 2020-02 Yes [id number] Use as [employer] 1-10 [id number] directed ity of (TEGADERM) 00:00: qod [place] 2 X 2 3/4 " 00 Medical [facility] Branch blood sugar 2020-02 Yes [id number] Test U nivers diagnostic 1-10 glucose ity of strip 00:00: qid [place] 00 Medical Branch Transparent 2020-02 Yes [id number] Use as [employer] 1-10 [id number] directed ity of (TEGADERM) 00:00: qod [place] 2 X 2 3/4 " 00 Medical [facility] Branch blood sugar 2020-02 Yes [id number] Test U nivers diagnostic 1-10 glucose ity of strip 00:00: qid [place] 00 Medical Branch Transparent 2020-02 Yes [id number] Use as [employer] 1-10 [id number] directed ity of (TEGADERM) 00:00: qod [place] 2 X 2 3/4 " 00 Medical [facility] Branch blood sugar 2020-02 Yes [id number] Test U nivers diagnostic 1-10 glucose ity of strip 00:00: qid [place] 00 Medical Branch Transparent 2020-02 Yes [id number] Use as [employer] 1-10 [id number] directed ity of (TEGADERM) 00:00: qod [place] 2 X 2 3/4 " 00 Medical [facility] Branch blood sugar 2020-02 Yes [id number] Test U nivers diagnostic 1-10 glucose ity of strip 00:00: qid [place] 00 Medical Branch Transparent 2020-02 Yes [id number] Use as [employer] 1-10 [id number] directed ity of (TEGADERM) 00:00: qod [place] 2 X 2 3/4 " 00 Medical [facility] Branch blood sugar 2020-02 Yes [id number] Test U nivers diagnostic 1-10 glucose ity of strip 00:00: qid [place] 00 Medical Branch Transparent 2020-02 Yes [id number] Use as [employer] 1-10 [id number] directed ity of (TEGADERM) 00:00: [facility] [place] [facility] 2 X 2 3/4 " 00 Medical Bndg Branch blood sugar 2020- Yes [id number] Test U nivers diagnostic 1-10 glucose ity of strip 00:00: [facility] Medical Branch blood sugar 2020- Yes [id number] Test U nivers diagnostic 1-10 glucose ity of strip 00:00: [facility] Branch blood sugar 2020- Yes [id number] Test U nivers diagnostic 1-10 glucose ity of strip 00:00: [facility] Branch blood sugar 2020- Yes [id number] Test U nivers diagnostic 1-10 glucose ity of strip 00:00: [facility] Branch blood sugar 2020- Yes [id number] Test U nivers diagnostic 1-10 glucose ity of strip 00:00: [facility] Branch blood sugar 2020- Yes [id number] Test U nivers diagnostic 1-10 glucose ity of strip 00:00: [facility] Branch blood sugar 2020- Yes [id number] Test U nivers diagnostic 1-10 glucose ity of strip 00:00: [facility] Branch blood sugar 2020- Yes [id number] Test U nivers diagnostic 1-10 glucose ity of strip 00:00: [facility] Branch blood sugar 2020- Yes [id number] Test U nivers diagnostic 1-10 glucose ity of strip 00:00: [facility] Branch blood sugar 2020- Yes [id number] Test U nivers diagnostic 1-10 glucose ity of strip 00:00: [facility] Branch blood sugar 2020- Yes [id number] Test U nivers diagnostic 1-10 glucose ity of strip 00:00: [facility] Branch blood sugar 2020- Yes [id number] Test U nivers diagnostic 1-10 glucose ity of strip 00:00: [facility] Branch blood sugar 2020- Yes [id number] Test U nivers diagnostic 1-10 glucose ity of strip 00:00: [facility] Branch blood sugar 2020- Yes [id number] Test U nivers diagnostic 1-10 glucose ity of strip 00:00: [facility] Branch blood sugar 2020- Yes [id number] Test U nivers diagnostic 1-10 glucose ity of strip 00:00: [facility] Branch blood sugar 2021- Yes [id number] Test U nivers diagnostic 1-10 glucose ity of strip 00:00: [facility] Branch blood sugar 202- Yes [id number] Test U nivers diagnostic 1-10 glucose ity of strip 00:00: [facility] Branch blood sugar 202- Yes [id number] Test U nivers diagnostic 1-10 glucose ity of strip 00:00: [facility] Branch blood sugar 2020- Yes [id number] Test U nivers diagnostic 1-10 glucose ity of strip 00:00: [facility] Branch blood sugar 2020- Yes [id number] Test U nivers diagnostic 1-10 glucose ity of strip 00:00: [facility] Branch blood sugar 202- Yes [id number] Test U nivers diagnostic 1-10 glucose ity of strip 00:00: [facility] Branch blood sugar 2020- Yes [id number] Test U nivers diagnostic 1-10 glucose ity of strip 00:00: [facility] Branch blood sugar 2020- Yes [id number] Test U nivers diagnostic 1-10 glucose ity of strip 00:00: [facility] Branch blood sugar 2020- Yes [id number] Test U nivers diagnostic 1-10 glucose ity of strip 00:00: [facility] Branch blood sugar 202- Yes [id number] Test U nivers diagnostic 1-10 glucose ity of strip 00:00: [facility] Branch blood sugar 202- Yes [id number] Test U nivers diagnostic 1-10 glucose ity of strip 00:00: [facility] Branch blood sugar 202- Yes [id number] Test U nivers diagnostic 1-10 glucose ity of strip 00:00: [facility] Branch blood sugar 202- Yes [id number] Test U nivers diagnostic 1-10 glucose ity of strip 00:00: [facility] Branch blood sugar 202- Yes [id number] Test U nivers diagnostic 1-10 glucose ity of strip 00:00: [facility] Branch blood sugar 202- Yes [id number] Test U nivers diagnostic 1-10 glucose ity of strip 00:00: [facility] Branch blood sugar 2020- Yes [id number] Test U nivers diagnostic 1-10 glucose ity of strip 00:00: [facility] Branch blood sugar 2020- Yes [id number] Test U nivers diagnostic 1-10 glucose ity of strip 00:00: [facility] Branch blood sugar 2020- Yes [id number] Test U nivers diagnostic 1-10 glucose ity of strip 00:00: [facility] Branch blood sugar 2020- Yes [id number] Test U nivers diagnostic 1-10 glucose ity of strip 00:00: [facility] Branch blood sugar 2020- Yes [id number] Test U nivers diagnostic 1-10 glucose ity of strip 00:00: [facility] Branch blood sugar 2020- Yes [id number] Test U nivers diagnostic 1-10 glucose ity of strip 00:00: [facility] Branch blood sugar 2020- Yes [id number] Test U nivers diagnostic 1-10 glucose ity of strip 00:00: [facility] Branch blood sugar 2020- Yes [id number] Test U nivers diagnostic 1-10 glucose ity of strip 00:00: [facility] Branch blood sugar 2020- Yes [id number] Test U nivers diagnostic 1-10 glucose ity of strip 00:00: [facility] Branch blood sugar 2020- Yes [id number] Test U nivers diagnostic 1-10 glucose ity of strip 00:00: [facility] Branch blood sugar 2020- Yes [id number] Test U nivers diagnostic 1-10 glucose ity of strip 00:00: [facility] Branch blood sugar 2020- Yes [id number] Test U nivers diagnostic 1-10 glucose ity of strip 00:00: [facility] Branch blood sugar 2020- Yes [id number] Test U nivers diagnostic 1-10 glucose ity of strip 00:00: [facility] Branch blood sugar 2020- Yes [id number] Test U nivers diagnostic 1-10 glucose ity of strip 00:00: [facility] Branch blood sugar 202- Yes [id number] Test U nivers diagnostic 1-10 glucose ity of strip 00:00: [facility] Branch blood sugar 202- Yes [id number] Test U nivers diagnostic 1-10 glucose ity of strip 00:00: [facility] Branch blood sugar 202- Yes [id number] Test U nivers diagnostic 1-10 glucose ity of strip 00:00: [facility] Branch blood sugar 202- Yes [id number] Test U nivers diagnostic 1-10 glucose ity of strip 00:00: [facility] Branch blood sugar 2020- Yes [id number] Test U nivers diagnostic 1-10 glucose ity of strip 00:00: [facility] Branch blood sugar 2020- Yes [id number] Test U nivers diagnostic 1-10 glucose ity of strip 00:00: [facility] Branch blood sugar 202- Yes [id number] Test U nivers diagnostic 1-10 glucose ity of strip 00:00: [facility] Branch blood sugar 2020- Yes [id number] Test U nivers diagnostic 1-10 glucose ity of strip 00:00: [facility] Branch blood sugar 202- Yes [id number] Test U nivers diagnostic 1-10 glucose ity of strip 00:00: [facility] Branch blood sugar 202- Yes [id number] Test U nivers diagnostic 1-10 glucose ity of strip 00:00: [facility] Branch blood sugar 202- Yes [id number] Test U nivers diagnostic 1-10 glucose ity of strip 00:00: [facility] Branch blood sugar 202- Yes [id number] Test U nivers diagnostic 1-10 glucose ity of strip 00:00: [facility] Branch blood sugar 202- Yes [id number] Test U nivers diagnostic 1-10 glucose ity of strip 00:00: [facility] Branch blood sugar 202- Yes [id number] Test U nivers diagnostic 1-10 glucose ity of strip 00:00: [facility] Branch blood sugar 2021-1 Yes [id number] Test U nivers diagnostic 1-10 glucose ity of strip 00:00: [facility] Branch blood sugar 2021- Yes [id number] Test U nivers diagnostic 1-10 glucose ity of strip 00:00: [facility] Branch blood sugar 202-1 Yes [id number] Test U nivers diagnostic 1-10 glucose ity of strip 00:00: [facility] Branch blood sugar 202- Yes [id number] Test U nivers diagnostic 1-10 glucose ity of strip 00:00: [facility] Branch blood sugar 202- Yes [id number] Test U nivers diagnostic 1-10 glucose ity of strip 00:00: [facility] Branch blood sugar 2020- Yes [id number] Test U nivers diagnostic 1-10 glucose ity of strip 00:00: [facility] Branch blood sugar 202- Yes [id number] Test U nivers diagnostic 1-10 glucose ity of strip 00:00: [facility] Branch blood sugar 202- Yes [id number] Test U nivers diagnostic 1-10 glucose ity of strip 00:00: [facility] Branch blood sugar 202- Yes [id number] Test U nivers diagnostic 1-10 glucose ity of strip 00:00: [facility] Branch blood sugar 2020- Yes [id number] Test U nivers diagnostic 1-10 glucose ity of strip 00:00: [facility] Branch blood sugar 202- Yes [id number] Test U nivers diagnostic 1-10 glucose ity of strip 00:00: [facility] Branch blood sugar 2021-1 Yes [id number] Test U nivers diagnostic 1-10 glucose ity of strip 00:00: [facility] Branch blood sugar 202-1 Yes [id number] Test U nivers diagnostic 1-10 glucose ity of strip 00:00: [facility] Branch blood sugar 202- Yes [id number] Test U nivers diagnostic 1-10 glucose ity of strip 00:00: [facility] Branch blood sugar 202- Yes [id number] Test U nivers diagnostic 1-10 glucose ity of strip 00:00: [facility] Branch blood sugar 2021- Yes [id number] Test U nivers diagnostic 1-10 glucose ity of strip 00:00: [facility] Branch blood sugar 2020- Yes [id number] Test U nivers diagnostic 1-10 glucose ity of strip 00:00: [facility] Branch blood sugar 2020- Yes [id number] Test U nivers diagnostic 1-10 glucose ity of strip 00:00: [facility] Branch blood sugar 2020- Yes [id number] Test U nivers diagnostic 1-10 glucose ity of strip 00:00: [facility] Branch blood sugar 2020- Yes [id number] Test U nivers diagnostic 1-10 glucose ity of strip 00:00: [facility] Branch blood sugar 2020- Yes [id number] Test U nivers diagnostic 1-10 glucose ity of strip 00:00: [facility] Branch blood sugar 2020- Yes [id number] Test U nivers diagnostic 1-10 glucose ity of strip 00:00: [facility] Branch blood sugar 2020- Yes [id number] Test U nivers diagnostic 1-10 glucose ity of strip 00:00: [facility] Branch blood sugar 2020- Yes [id number] Test U nivers diagnostic 1-10 glucose ity of strip 00:00: [facility] Branch blood sugar 2020- Yes [id number] Test U nivers diagnostic 1-10 glucose ity of strip 00:00: [facility] Branch blood sugar 2020- Yes [id number] Test U nivers diagnostic 1-10 glucose ity of strip 00:00: [facility] Branch blood sugar 2020- Yes [id number] Test U nivers diagnostic 1-10 glucose ity of strip 00:00: [facility] Branch blood sugar 2020- Yes [id number] Test U nivers diagnostic 1-10 glucose ity of strip 00:00: [facility] Branch blood sugar 2020- Yes [id number] Test U nivers diagnostic 1-10 glucose ity of strip 00:00: [facility] Branch blood sugar 2020- Yes [id number] Test U nivers diagnostic 1-10 glucose ity of strip 00:00: [facility] Branch blood sugar 2021- Yes [id number] Test U nivers diagnostic 1-10 glucose ity of strip 00:00: [facility] Branch blood sugar 202- Yes [id number] Test U nivers diagnostic 1-10 glucose ity of strip 00:00: [facility] Branch blood sugar 202-1 Yes [id number] Test U nivers diagnostic 1-10 glucose ity of strip 00:00: [facility] Branch blood sugar 202- Yes [id number] Test U nivers diagnostic 1-10 glucose ity of strip 00:00: [facility] Branch blood sugar 202- Yes [id number] Test U nivers diagnostic 1-10 glucose ity of strip 00:00: [facility] Branch blood sugar 202- Yes [id number] Test U nivers diagnostic 1-10 glucose ity of strip 00:00: [facility] Branch blood sugar 202- Yes [id number] Test U nivers diagnostic 1-10 glucose ity of strip 00:00: [facility] blood sugar 202- Yes [id number] Test U nivers diagnostic 1-10 glucose ity of strip 00:00: [facility] blood sugar 202- Yes [id number] Test U nivers diagnostic 1-10 glucose ity of strip 00:00: [facility] blood sugar 202- Yes [id number] Test U nivers diagnostic 1-10 glucose ity of strip 00:00: [facility] blood sugar 2021- Yes [id number] Test U nivers diagnostic 1-10 glucose ity of strip 00:00: [facility] blood sugar 202-1 Yes [id number] Test U nivers diagnostic 1-10 glucose ity of strip 00:00: [facility] blood sugar 202- Yes [id number] Test U nivers diagnostic 1-10 glucose ity of strip 00:00: [facility] blood sugar 202- Yes [id number] Test U nivers diagnostic 1-10 glucose ity of strip 00:00: [facility] blood sugar 202- Yes [id number] Test U nivers diagnostic 1-10 glucose ity of strip 00:00: [facility] blood sugar 202- Yes [id number] Test U nivers diagnostic 1-10 glucose ity of strip 00:00: [facility] blood sugar 202- Yes [id number] Test U nivers diagnostic 1-10 glucose ity of strip 00:00: [facility] blood sugar 2020- Yes [id number] Test U nivers diagnostic 1-10 glucose ity of strip 00:00: [facility] blood sugar 202- Yes [id number] Test U nivers diagnostic 1-10 glucose ity of strip 00:00: [facility] blood sugar 2020- Yes [id number] Test U nivers diagnostic 1-10 glucose ity of strip 00:00: [facility] blood sugar 2020- Yes [id number] Test U nivers diagnostic 1-10 glucose ity of strip 00:00: [facility] blood sugar 202- Yes [id number] Test U nivers diagnostic 1-10 glucose ity of strip 00:00: [facility] blood sugar 2020- Yes [id number] Test U nivers diagnostic 1-10 glucose ity of strip 00:00: [facility] blood sugar 2020- Yes [id number] Test U nivers diagnostic 1-10 glucose ity of strip 00:00: [facility] blood sugar 2020- Yes [id number] Test U nivers diagnostic 1-10 glucose ity of strip 00:00: [facility] blood sugar 202- Yes [id number] Test U nivers diagnostic 1-10 glucose ity of strip 00:00: [facility] blood sugar 202- Yes [id number] Test U nivers diagnostic 1-10 glucose ity of strip 00:00: [facility] blood sugar 202- Yes [id number] Test U nivers diagnostic 1-10 glucose ity of strip 00:00: [facility] blood sugar 2020- Yes [id number] Test U nivers diagnostic 1-10 glucose ity of strip 00:00: [facility] blood sugar 202- Yes [id number] Test U nivers diagnostic 1-10 glucose ity of strip 00:00: [facility] blood sugar 2020- Yes [id number] Test U nivers diagnostic 1-10 glucose ity of strip 00:00: [facility] blood sugar 2020- Yes [id number] Test U nivers diagnostic 1-10 glucose ity of strip 00:00: [facility] blood sugar 2020- Yes [id number] Test U nivers diagnostic 1-10 glucose ity of strip 00:00: [facility] blood sugar 2020- Yes [id number] Test U nivers diagnostic 1-10 glucose ity of strip 00:00: [facility] blood sugar 2020- Yes [id number] Test U nivers diagnostic 1-10 glucose ity of strip 00:00: [facility] blood sugar 2020- Yes [id number] Test U nivers diagnostic 1-10 glucose ity of strip 00:00: [facility] blood sugar 2020- Yes [id number] Test U nivers diagnostic 1-10 glucose ity of strip 00:00: [facility] blood sugar 2020- Yes [id number] Test U nivers diagnostic 1-10 glucose ity of strip 00:00: [facility] blood sugar 2020- Yes [id number] Test U nivers diagnostic 1-10 glucose ity of strip 00:00: [facility] blood sugar 2020- Yes [id number] Test U nivers diagnostic 1-10 glucose ity of strip 00:00: [facility] blood sugar 2020- Yes [id number] Test U nivers diagnostic 1-10 glucose ity of strip 00:00: [facility] blood sugar 2020- Yes [id number] Test U nivers diagnostic 1-10 glucose ity of strip 00:00: [facility] blood sugar 2020- Yes [id number] Test U nivers diagnostic 1-10 glucose ity of strip 00:00: [facility] blood sugar 2020- Yes [id number] Test U nivers diagnostic 1-10 glucose ity of strip 00:00: [facility] blood sugar 202- Yes [id number] Test U nivers diagnostic 1-10 glucose ity of strip 00:00: [facility] blood sugar 2020- Yes [id number] Test U nivers diagnostic 1-10 glucose ity of strip 00:00: [facility] blood sugar 2020- Yes [id number] Test U nivers diagnostic 1-10 glucose ity of strip 00:00: [facility] blood sugar 2020- Yes [id number] Test U nivers diagnostic 1-10 glucose ity of strip 00:00: [facility] blood sugar 2020- Yes [id number] Test U nivers diagnostic 1-10 glucose ity of strip 00:00: [facility] blood sugar 2020- Yes [id number] Test U nivers diagnostic 1-10 glucose ity of strip 00:00: [facility] blood sugar 2020- Yes [id number] Test U nivers diagnostic 1-10 glucose ity of strip 00:00: [facility] blood sugar 2020- Yes [id number] Test U nivers diagnostic 1-10 glucose ity of strip 00:00: [facility] blood sugar 2020- Yes [id number] Test U nivers diagnostic 1-10 glucose ity of strip 00:00: [facility] blood sugar 2020- Yes [id number] Test U nivers diagnostic 1-10 glucose ity of strip 00:00: [facility] blood sugar 2020- Yes [id number] Test U nivers diagnostic 1-10 glucose ity of strip 00:00: [facility] blood sugar 2020- Yes [id number] Test U nivers diagnostic 1-10 glucose ity of strip 00:00: [facility] blood sugar 2020- Yes [id number] Test U nivers diagnostic 1-10 glucose ity of strip 00:00: [facility] blood sugar 2020- Yes [id number] Test U nivers diagnostic 1-10 glucose ity of strip 00:00: [facility] blood sugar 2020- Yes [id number] Test U nivers diagnostic 1-10 glucose ity of strip 00:00: [facility] blood sugar 202- Yes [id number] Test U nivers diagnostic 1-10 glucose ity of strip 00:00: [facility] blood sugar 2020- Yes [id number] Test U nivers diagnostic 1-10 glucose ity of strip 00:00: [facility] blood sugar 202- Yes [id number] Test U nivers diagnostic 1-10 glucose ity of strip 00:00: [facility] blood sugar 202- Yes [id number] Test U nivers diagnostic 1-10 glucose ity of strip 00:00: [facility] blood sugar 2020- Yes [id number] Test U nivers diagnostic 1-10 glucose ity of strip 00:00: [facility] blood sugar 2020- Yes [id number] Test U nivers diagnostic 1-10 glucose ity of strip 00:00: [facility] blood sugar 2020- Yes [id number] Test U nivers diagnostic 1-10 glucose ity of strip 00:00: [facility] blood sugar 2020- Yes [id number] Test U nivers diagnostic 1-10 glucose ity of strip 00:00: [facility] blood sugar 2020- Yes [id number] Test U nivers diagnostic 1-10 glucose ity of strip 00:00: [facility] blood sugar 2020- Yes [id number] Test U nivers diagnostic 1-10 glucose ity of strip 00:00: [facility] blood sugar 202- Yes [id number] Test U nivers diagnostic 1-10 glucose ity of strip 00:00: [facility] blood sugar 2020- Yes [id number] Test U nivers diagnostic 1-10 glucose ity of strip 00:00: [facility] blood sugar 202- Yes [id number] Test U nivers diagnostic 1-10 glucose ity of strip 00:00: [facility] blood sugar 2020- Yes [id number] Test U nivers diagnostic 1-10 glucose ity of strip 00:00: [facility] blood sugar 202- Yes [id number] Test U nivers diagnostic 1-10 glucose ity of strip 00:00: [facility] blood sugar 202- Yes [id number] Test U nivers diagnostic 1-10 glucose ity of strip 00:00: [facility] blood sugar 202- Yes [id number] Test U nivers diagnostic 1-10 glucose ity of strip 00:00: [facility] blood sugar 2020- Yes [id number] Test U nivers diagnostic 1-10 glucose ity of strip 00:00: [facility] blood sugar 2020- Yes [id number] Test U nivers diagnostic 1-10 glucose ity of strip 00:00: [facility] blood sugar 2020- Yes [id number] Test U nivers diagnostic 1-10 glucose ity of strip 00:00: [facility] blood sugar 2020- Yes [id number] Test U nivers diagnostic 1-10 glucose ity of strip 00:00: [facility] blood sugar 2020- Yes [id number] Test U nivers diagnostic 1-10 glucose ity of strip 00:00: [facility] blood sugar 2020- Yes [id number] Test U nivers diagnostic 1-10 glucose ity of strip 00:00: [facility] blood sugar 2020- Yes [id number] Test U nivers diagnostic 1-10 glucose ity of strip 00:00: [facility] blood sugar 2020- Yes [id number] Test U nivers diagnostic 1-10 glucose ity of strip 00:00: [facility] blood sugar 202- Yes [id number] Test U nivers diagnostic 1-10 glucose ity of strip 00:00: [facility] blood sugar 2020- Yes [id number] Test U nivers diagnostic 1-10 glucose ity of strip 00:00: [facility] blood sugar 2020- Yes [id number] Test U nivers diagnostic 1-10 glucose ity of strip 00:00: [facility] blood sugar 2020- Yes [id number] Test U nivers diagnostic 1-10 glucose ity of strip 00:00: [facility] blood sugar 2020-02 Yes [id number] Test U nivers diagnostic 02-24 glucose ity of strip 00:00: qid [facility] Transparent 2020-02- No [id number] Use as [employer] 02-24 002002 directed ity of (TEGADERM) 00:00: 00:00 qod [place] 2 X 2 3/4 " 00 :00 Medical Bndg Branch zinc Yes [id number] 220mg Take 1 Uni vers sulfate 50 9-30 [id number] capsule by i ty of mg zinc 00:00: mouth [place] (220 mg) 00 daily. Medical capsule Branch zinc Yes [id number] 220mg Take 1 [facility] vers sulfate 50 9-30 [id number] capsule by i ty of mg zinc 00:00: mouth [place] (220 mg) 00 daily. Medical capsule Branch zinc Yes [id number] 220mg Take 1 Uni vers sulfate 50 9-30 [id number] capsule by i ty of mg zinc 00:00: mouth [place] (220 mg) 00 daily. Medical capsule Branch zinc Yes [id number] 220mg Take 1 [facility] vers sulfate 50 9-30 [id number] capsule by i ty of mg zinc 00:00: mouth [place] (220 mg) 00 daily. Medical capsule Branch zinc Yes [id number] 220mg Take 1 [facility] vers sulfate 50 9-30 [id number] capsule by i ty of mg zinc 00:00: mouth [place] (220 mg) 00 daily. Medical capsule Branch zinc Yes [id number] 220mg Take 1 [facility] vers sulfate 50 9-30 [id number] capsule by i ty of mg zinc 00:00: mouth [place] (220 mg) 00 daily. Medical capsule Branch zinc Yes [id number] 220mg Take 1 [facility] vers sulfate 50 9-30 [id number] capsule by i ty of mg zinc 00:00: mouth [place] (220 mg) 00 daily. Medical capsule Branch zinc Yes [id number] 220mg Take 1 [facility] vers sulfate 50 9-30 [id number] capsule by i ty of mg zinc 00:00: mouth [place] (220 mg) 00 daily. Medical capsule Branch zinc Yes [id number] 220mg Take 1 [facility] vers sulfate 50 9-30 [id number] capsule by i ty of mg zinc 00:00: mouth [place] (220 mg) 00 daily. Medical capsule Branch zinc Yes [id number] 220mg Take 1 [facility] vers sulfate 50 9-30 [id number] capsule by i ty of mg zinc 00:00: mouth [place] (220 mg) 00 daily. Medical capsule Branch zinc Yes [id number] 220mg Take 1 [facility] vers sulfate 50 9-30 [id number] capsule by i ty of mg zinc 00:00: mouth [place] (220 mg) 00 daily. Medical capsule Branch zinc Yes [id number] 220mg Take 1 [facility] vers sulfate 50 9-30 [id number] capsule by i ty of mg zinc 00:00: mouth [place] (220 mg) 00 daily. Medical capsule Branch zinc Yes [id number] 220mg Take 1 [facility] vers sulfate 50 9-30 [id number] capsule by i ty of mg zinc 00:00: mouth [place] (220 mg) 00 daily. Medical capsule Branch zinc Yes [id number] 220mg Take 1 [facility] vers sulfate 50 9-30 009614 capsule by i ty of mg zinc 00:00: mouth [place] (220 mg) 00 daily. Medical capsule Branch zinc Yes [id number] 220mg Take 1 [facility] vers sulfate 50 9-30 [id number] capsule by i ty of mg zinc 00:00: mouth [place] (220 mg) 00 daily. Medical capsule Branch zinc Yes [id number] 220mg Take 1 [facility] vers sulfate 50 9-30 [id number] capsule by i ty of mg zinc 00:00: mouth [place] (220 mg) 00 daily. Medical capsule Branch zinc Yes [id number] 220mg Take 1 [facility] vers sulfate 50 9-30 276716 capsule by i ty of mg zinc 00:00: mouth [place] (220 mg) 00 daily. Medical capsule Branch zinc Yes [id number] 220mg Take 1 [facility] vers sulfate 50 9-30 [id number] capsule by i ty of mg zinc 00:00: mouth [place] (220 mg) 00 daily. Medical capsule Branch zinc Yes [id number] 220mg Take 1 [facility] vers sulfate 50 9-30 [id number] capsule by i ty of mg zinc 00:00: mouth [place] (220 mg) 00 daily. Medical capsule Branch zinc Yes [id number] 220mg Take 1 [facility] vers sulfate 50 9-30 [id number] capsule by i ty of mg zinc 00:00: mouth [place] (220 mg) 00 daily. Medical capsule Branch zinc Yes [id number] 220mg Take 1 [facility] vers sulfate 50 9-30 [id number] capsule by i ty of mg zinc 00:00: mouth [place] (220 mg) 00 daily. Medical capsule Branch zinc Yes [id number] 220mg Take 1 [facility] vers sulfate 50 9-30 166890 capsule by i ty of mg zinc 00:00: mouth [place] (220 mg) 00 daily. Medical capsule Branch zinc Yes [id number] 220mg Take 1 [facility] vers sulfate 50 9-30 [id number] capsule by i ty of mg zinc 00:00: mouth [place] (220 mg) 00 daily. Medical capsule Branch zinc Yes [id number] 220mg Take 1 [facility] vers sulfate 50 9-30 197068 capsule by i ty of mg zinc 00:00: mouth [place] (220 mg) 00 daily. Medical capsule Branch zinc Yes [id number] 220mg Take 1 [facility] vers sulfate 50 9-30 [id number] capsule by i ty of mg zinc 00:00: mouth [place] (220 mg) 00 daily. Medical capsule Branch zinc Yes [id number] 220mg Take 1 [facility] vers sulfate 50 9-30 [id number] capsule by i ty of mg zinc 00:00: mouth [place] (220 mg) 00 daily. Medical capsule Branch zinc Yes [id number] 220mg Take 1 Uni vers sulfate 50 9-30 [id number] capsule by i ty of mg zinc 00:00: mouth [place] (220 mg) 00 daily. Medical capsule Branch zinc Yes [id number] 220mg Take 1 [facility] vers sulfate 50 9-30 [id number] capsule by i ty of mg zinc 00:00: mouth [place] (220 mg) 00 daily. Medical capsule Branch zinc Yes [id number] 220mg Take 1 [facility] vers sulfate 50 9-30 [id number] capsule by i ty of mg zinc 00:00: mouth [place] (220 mg) 00 daily. Medical capsule Branch zinc Yes [id number] 220mg Take 1 [facility] vers sulfate 50 9-30 [id number] capsule by i ty of mg zinc 00:00: mouth [place] (220 mg) 00 daily. Medical capsule Branch zinc Yes [id number] 220mg Take 1 [facility] vers sulfate 50 9-30 663689 capsule by i ty of mg zinc 00:00: mouth [place] (220 mg) 00 daily. Medical capsule Branch zinc Yes [id number] 220mg Take 1 [facility] vers sulfate 50 9-30 [id number] capsule by i ty of mg zinc 00:00: mouth [place] (220 mg) 00 daily. Medical capsule Branch zinc Yes [id number] 220mg Take 1 [facility] vers sulfate 50 9-30 286898 capsule by i ty of mg zinc 00:00: mouth [place] (220 mg) 00 daily. Medical capsule Branch zinc Yes [id number] 220mg Take 1 [facility] vers sulfate 50 9-30 [id number] capsule by i ty of mg zinc 00:00: mouth [place] (220 mg) 00 daily. Medical capsule Branch zinc Yes [id number] 220mg Take 1 [facility] vers sulfate 50 9-30 [id number] capsule by i ty of mg zinc 00:00: mouth [place] (220 mg) 00 daily. Medical capsule Branch zinc Yes [id number] 220mg Take 1 [facility] vers sulfate 50 9-30 [id number] capsule by i ty of mg zinc 00:00: mouth [place] (220 mg) 00 daily. Medical capsule Branch zinc Yes [id number] 220mg Take 1 [facility] vers sulfate 50 9-30 [id number] capsule by i ty of mg zinc 00:00: mouth [place] (220 mg) 00 daily. Medical capsule Branch zinc Yes [id number] 220mg Take 1 [facility] vers sulfate 50 9-30 027626 capsule by i ty of mg zinc 00:00: mouth [place] (220 mg) 00 daily. Medical capsule Branch zinc Yes [id number] 220mg Take 1 [facility] vers sulfate 50 9-30 [id number] capsule by i ty of mg zinc 00:00: mouth [place] (220 mg) 00 daily. Medical capsule Branch zinc Yes [id number] 220mg Take 1 Uni vers sulfate 50 9-30 088263 capsule by i ty of mg zinc 00:00: mouth [place] (220 mg) 00 daily. Medical capsule Branch zinc Yes [id number] 220mg Take 1 [facility] vers sulfate 50 9-30 063152 capsule by i ty of mg zinc 00:00: mouth [place] (220 mg) 00 daily. Medical capsule Branch zinc Yes [id number] 220mg Take 1 [facility] vers sulfate 50 9-30 816993 capsule by i ty of mg zinc 00:00: mouth [place] (220 mg) 00 daily. Medical capsule Branch zinc Yes [id number] 220mg Take 1 [facility] vers sulfate 50 9-30 [id number] capsule by i ty of mg zinc 00:00: mouth [place] (220 mg) 00 daily. Medical capsule Branch zinc Yes [id number] 220mg Take 1 [facility] vers sulfate 50 9-30 088411 capsule by i ty of mg zinc 00:00: mouth [place] (220 mg) 00 daily. Medical capsule Branch zinc Yes [id number] 220mg Take 1 [facility] vers sulfate 50 9-30 486839 capsule by i ty of mg zinc 00:00: mouth [place] (220 mg) 00 daily. Medical capsule Branch zinc Yes [id number] 220mg Take 1 [facility] vers sulfate 50 9-30 [id number] capsule by i ty of mg zinc 00:00: mouth [place] (220 mg) 00 daily. Medical capsule Branch zinc Yes [id number] 220mg Take 1 [facility] vers sulfate 50 9-30 247932 capsule by i ty of mg zinc 00:00: mouth [place] (220 mg) 00 daily. Medical capsule Branch zinc Yes [id number] 220mg Take 1 [facility] vers sulfate 50 9-30 129577 capsule by i ty of mg zinc 00:00: mouth [place] (220 mg) 00 daily. Medical capsule Branch zinc Yes [id number] 220mg Take 1 [facility] vers sulfate 50 9-30 174935 capsule by i ty of mg zinc 00:00: mouth [place] (220 mg) 00 daily. Medical capsule Branch zinc Yes [id number] 220mg Take 1 [facility] vers sulfate 50 9-30 020727 capsule by i ty of mg zinc 00:00: mouth [place] (220 mg) 00 daily. Medical capsule Branch zinc Yes [id number] 220mg Take 1 [facility] vers sulfate 50 9-30 [id number] capsule by i ty of mg zinc 00:00: mouth [place] (220 mg) 00 daily. Medical capsule Branch zinc Yes [id number] 220mg Take 1 [facility] vers sulfate 50 9-30 729955 capsule by i ty of mg zinc 00:00: mouth [place] (220 mg) 00 daily. Medical capsule Branch zinc Yes [id number] 220mg Take 1 Uni vers sulfate 50 9-30 108189 capsule by i ty of mg zinc 00:00: mouth [place] (220 mg) 00 daily. Medical capsule Branch zinc Yes [id number] 220mg Take 1 [facility] vers sulfate 50 9-30 330316 capsule by i ty of mg zinc 00:00: mouth [place] (220 mg) 00 daily. Medical capsule Branch zinc Yes [id number] 220mg Take 1 [facility] vers sulfate 50 9-30 [id number] capsule by i ty of mg zinc 00:00: mouth [place] (220 mg) 00 daily. Medical capsule Branch zinc Yes [id number] 220mg Take 1 [facility] vers sulfate 50 9-30 [id number] capsule by i ty of mg zinc 00:00: mouth [place] (220 mg) 00 daily. Medical capsule Branch zinc Yes [id number] 220mg Take 1 Uni vers sulfate 50 9-30 080325 capsule by i ty of mg zinc 00:00: mouth [place] (220 mg) 00 daily. Medical capsule Branch zinc Yes [id number] 220mg Take 1 [facility] vers sulfate 50 9-30 842882 capsule by i ty of mg zinc 00:00: mouth [place] (220 mg) 00 daily. Medical capsule Branch zinc Yes [id number] 220mg Take 1 [facility] vers sulfate 50 9-30 830555 capsule by i ty of mg zinc 00:00: mouth [place] (220 mg) 00 daily. Medical capsule Branch zinc Yes [id number] 220mg Take 1 [facility] vers sulfate 50 9-30 115001 capsule by i ty of mg zinc 00:00: mouth [place] (220 mg) 00 daily. Medical capsule Branch zinc Yes [id number] 220mg Take 1 [facility] vers sulfate 50 9-30 191219 capsule by i ty of mg zinc 00:00: mouth [place] (220 mg) 00 daily. Medical capsule Branch zinc Yes [id number] 220mg Take 1 [facility] vers sulfate 50 9-30 249443 capsule by i ty of mg zinc 00:00: mouth [place] (220 mg) 00 daily. Medical capsule Branch zinc Yes [id number] 220mg Take 1 [facility] vers sulfate 50 9-30 283727 capsule by i ty of mg zinc 00:00: mouth [place] (220 mg) 00 daily. Medical capsule Branch zinc Yes [id number] 220mg Take 1 [facility] vers sulfate 50 9-30 [id number] capsule by i ty of mg zinc 00:00: mouth [place] (220 mg) 00 daily. Medical capsule Branch zinc Yes [id number] 220mg Take 1 Uni vers sulfate 50 9-30 677602 capsule by i ty of mg zinc 00:00: mouth [place] (220 mg) 00 daily. Medical capsule Branch zinc Yes [id number] 220mg Take 1 Uni vers sulfate 50 9-30 515381 capsule by i ty of mg zinc 00:00: mouth [place] (220 mg) 00 daily. Medical capsule Branch zinc Yes [id number] 220mg Take 1 [facility] vers sulfate 50 9-30 885851 capsule by i ty of mg zinc 00:00: mouth [place] (220 mg) 00 daily. Medical capsule Branch zinc Yes [id number] 220mg Take 1 [facility] vers sulfate 50 9-30 269588 capsule by i ty of mg zinc 00:00: mouth [place] (220 mg) 00 daily. Medical capsule Branch zinc Yes [id number] 220mg Take 1 Uni vers sulfate 50 9-30 608183 capsule by i ty of mg zinc 00:00: mouth [place] (220 mg) 00 daily. Medical capsule Branch zinc Yes [id number] 220mg Take 1 Uni vers sulfate 50 9-30 196333 capsule by i ty of mg zinc 00:00: mouth [place] (220 mg) 00 daily. Medical capsule Branch zinc Yes [id number] 220mg Take 1 Uni vers sulfate 50 9-30 580826 capsule by i ty of mg zinc 00:00: mouth [place] (220 mg) 00 daily. Medical capsule Branch zinc Yes [id number] 220mg Take 1 Uni vers sulfate 50 9-30 251185 capsule by i ty of mg zinc 00:00: mouth [place] (220 mg) 00 daily. Medical capsule Branch zinc Yes [id number] 220mg Take 1 Uni vers sulfate 50 9-30 368185 capsule by i ty of mg zinc 00:00: mouth [place] (220 mg) 00 daily. Medical capsule Branch zinc Yes [id number] 220mg Take 1 Uni vers sulfate 50 9-30 086319 capsule by i ty of mg zinc 00:00: mouth [place] (220 mg) 00 daily. Medical capsule Branch zinc Yes [id number] 220mg Take 1 Uni vers sulfate 50 9-30 223048 capsule by i ty of mg zinc 00:00: mouth [place] (220 mg) 00 daily. Medical capsule Branch zinc Yes [id number] 220mg Take 1 Uni vers sulfate 50 9-30 396035 capsule by i ty of mg zinc 00:00: mouth [place] (220 mg) 00 daily. Medical capsule Branch zinc Yes [id number] 220mg Take 1 Uni vers sulfate 50 9-30 894642 capsule by i ty of mg zinc 00:00: mouth [place] (220 mg) 00 daily. Medical capsule Branch zinc Yes [id number] 220mg Take 1 Uni vers sulfate 50 9-30 618130 capsule by i ty of mg zinc 00:00: mouth [place] (220 mg) 00 daily. Medical capsule Branch zinc Yes [id number] 220mg Take 1 Uni vers sulfate 50 9-30 890852 capsule by i ty of mg zinc 00:00: mouth [place] (220 mg) 00 daily. Medical capsule Branch zinc Yes [id number] 220mg Take 1 Uni vers sulfate 50 9-30 741101 capsule by i ty of mg zinc 00:00: mouth [place] (220 mg) 00 daily. Medical capsule Branch zinc Yes [id number] 220mg Take 1 Uni vers sulfate 50 9-30 130941 capsule by i ty of mg zinc 00:00: mouth [place] (220 mg) 00 daily. Medical capsule Branch zinc Yes [id number] 220mg Take 1 Uni vers sulfate 50 9-30 436562 capsule by i ty of mg zinc 00:00: mouth [place] (220 mg) 00 daily. [facility] capsule [facility] zinc Yes [id number] 220mg Take 1 [facility] sulfate 50 9-30 [id number] capsule by i ty of mg zinc 00:00: mouth [place] (220 mg) 00 daily. [facility] capsule [facility] zinc Yes [id number] 220mg Take 1 [facility] sulfate 50 9-30 [id number] capsule by i ty of mg zinc 00:00: mouth [place] (220 mg) 00 daily. [facility] capsule [facility] zinc Yes [id number] 220mg Take 1 [facility] sulfate 50 9-30 [id number] capsule by i ty of mg zinc 00:00: mouth [place] (220 mg) 00 daily. [facility] capsule [facility] zinc Yes [id number] 220mg Take 1 [facility] sulfate 50 9-30 [id number] capsule by i ty of mg zinc 00:00: mouth [place] (220 mg) 00 daily. [facility] capsule [facility] zinc Yes [id number] 220mg Take 1 [facility] sulfate 50 9-30 [id number] capsule by i ty of mg zinc 00:00: mouth [place] (220 mg) 00 daily. [facility] capsule [facility] zinc Yes [id number] 220mg Take 1 [facility] sulfate 50 9-30 [id number] capsule by i ty of mg zinc 00:00: mouth [place] (220 mg) 00 daily. [facility] capsule [facility] zinc Yes [id number] 220mg Take 1 [facility] sulfate 50 9-30 [id number] capsule by i ty of mg zinc 00:00: mouth [place] (220 mg) 00 daily. [facility] capsule [facility] zinc Yes [id number] 220mg Take 1 [facility] sulfate 50 9-30 [id number] capsule by i ty of mg zinc 00:00: mouth [place] (220 mg) 00 daily. [facility] capsule [facility] zinc Yes [id number] 220mg Take 1 [facility] sulfate 50 9-30 108063 capsule by i ty of mg zinc 00:00: mouth [place] (220 mg) 00 daily. [facility] capsule [facility] zinc Yes [id number] 220mg Take 1 [facility] sulfate 50 9-30 [id number] capsule by i ty of mg zinc 00:00: mouth [place] (220 mg) 00 daily. [facility] capsule [facility] zinc Yes [id number] 220mg Take 1 [facility] sulfate 50 9-30 [id number] capsule by i ty of mg zinc 00:00: mouth [place] (220 mg) 00 daily. [facility] capsule [facility] zinc Yes [id number] 220mg Take 1 [facility] sulfate 50 9-30 [id number] capsule by i ty of mg zinc 00:00: mouth [place] (220 mg) 00 daily. [facility] capsule [facility] zinc Yes [id number] 220mg Take 1 [facility] sulfate 50 9-30 [id number] capsule by i ty of mg zinc 00:00: mouth [place] (220 mg) 00 daily. [facility] capsule [facility] zinc Yes [id number] 220mg Take 1 [facility] sulfate 50 9-30 [id number] capsule by i ty of mg zinc 00:00: mouth [place] (220 mg) 00 daily. [facility] capsule [facility] zinc Yes [id number] 220mg Take 1 [facility] sulfate 50 9-30 [id number] capsule by i ty of mg zinc 00:00: mouth [place] (220 mg) 00 daily. [facility] capsule [facility] zinc Yes [id number] 220mg Take 1 [facility] sulfate 50 9-30 [id number] capsule by i ty of mg zinc 00:00: mouth [place] (220 mg) 00 daily. [facility] capsule [facility] zinc Yes [id number] 220mg Take 1 [facility] sulfate 50 9-30 [id number] capsule by i ty of mg zinc 00:00: mouth [place] (220 mg) 00 daily. [facility] capsule [facility] zinc Yes [id number] 220mg Take 1 [facility] sulfate 50 9-30 [id number] capsule by i ty of mg zinc 00:00: mouth [place] (220 mg) 00 daily. [facility] capsule [facility] zinc Yes [id number] 220mg Take 1 [facility] sulfate 50 9-30 [id number] capsule by i ty of mg zinc 00:00: mouth [place] (220 mg) 00 daily. [facility] capsule [facility] zinc Yes [id number] 220mg Take 1 [facility] sulfate 50 9-30 [id number] capsule by i ty of mg zinc 00:00: mouth [place] (220 mg) 00 daily. [facility] capsule [facility] zinc Yes [id number] 220mg Take 1 [facility] sulfate 50 9-30 [id number] capsule by i ty of mg zinc 00:00: mouth [place] (220 mg) 00 daily. [facility] capsule [facility] zinc Yes [id number] 220mg Take 1 [facility] sulfate 50 9-30 [id number] capsule by i ty of mg zinc 00:00: mouth [place] (220 mg) 00 daily. [facility] capsule [facility] zinc Yes [id number] 220mg Take 1 [facility] sulfate 50 9-30 [id number] capsule by i ty of mg zinc 00:00: mouth [place] (220 mg) 00 daily. [facility] capsule [facility] zinc Yes [id number] 220mg Take 1 [facility] sulfate 50 9-30 [id number] capsule by i ty of mg zinc 00:00: mouth [place] (220 mg) 00 daily. [facility] capsule [facility] zinc Yes [id number] 220mg Take 1 [facility] sulfate 50 9-30 [id number] capsule by i ty of mg zinc 00:00: mouth [place] (220 mg) 00 daily. [facility] capsule [facility] zinc Yes [id number] 220mg Take 1 [facility] sulfate 50 9-30 [id number] capsule by i ty of mg zinc 00:00: mouth [place] (220 mg) 00 daily. [facility] capsule [facility] zinc Yes [id number] 220mg Take 1 [facility] sulfate 50 9-30 [id number] capsule by i ty of mg zinc 00:00: mouth [place] (220 mg) 00 daily. [facility] capsule [facility] zinc Yes [id number] 220mg Take 1 [facility] sulfate 50 9-30 [id number] capsule by i ty of mg zinc 00:00: mouth [place] (220 mg) 00 daily. [facility] capsule [facility] zinc Yes [id number] 220mg Take 1 [facility] sulfate 50 9-30 [id number] capsule by i ty of mg zinc 00:00: mouth [place] (220 mg) 00 daily. [facility] capsule [facility] zinc Yes [id number] 220mg Take 1 [facility] sulfate 50 9-30 [id number] capsule by i ty of mg zinc 00:00: mouth [place] (220 mg) 00 daily. [facility] capsule [facility] zinc Yes [id number] 220mg Take 1 [facility] sulfate 50 9-30 [id number] capsule by i ty of mg zinc 00:00: mouth [place] (220 mg) 00 daily. [facility] capsule [facility] zinc Yes [id number] 220mg Take 1 [facility] sulfate 50 9-30 [id number] capsule by i ty of mg zinc 00:00: mouth [place] (220 mg) 00 daily. [facility] capsule [facility] zinc Yes [id number] 220mg Take 1 [facility] sulfate 50 9-30 [id number] capsule by i ty of mg zinc 00:00: mouth [place] (220 mg) 00 daily. [facility] capsule [facility] zinc Yes [id number] 220mg Take 1 [facility] sulfate 50 9-30 [id number] capsule by i ty of mg zinc 00:00: mouth [place] (220 mg) 00 daily. [facility] capsule [facility] zinc Yes [id number] 220mg Take 1 [facility] sulfate 50 9-30 [id number] capsule by i ty of mg zinc 00:00: mouth [place] (220 mg) 00 daily. [facility] capsule [facility] zinc 2020- Yes [id number] 220mg Take 1 [facility] sulfate 50 9-30 [id number] capsule by i ty of mg zinc 00:00: mouth [place] (220 mg) 00 daily. [facility] capsule [facility] zinc Yes [id number] 220mg Take 1 [facility] sulfate 50 9-30 [id number] capsule by i ty of mg zinc 00:00: mouth [place] (220 mg) 00 daily. [facility] capsule [facility] zinc Yes [id number] 220mg Take 1 [facility] sulfate 50 9-30 [id number] capsule by i ty of mg zinc 00:00: mouth [place] (220 mg) 00 daily. [facility] capsule [facility] zinc Yes [id number] 220mg Take 1 [facility] sulfate 50 9-30 [id number] capsule by i ty of mg zinc 00:00: mouth [place] (220 mg) 00 daily. [facility] capsule [facility] zinc Yes [id number] 220mg Take 1 [facility] sulfate 50 9-30 [id number] capsule by i ty of mg zinc 00:00: mouth [place] (220 mg) 00 daily. [facility] capsule [facility] zinc Yes [id number] 220mg Take 1 [facility] sulfate 50 9-30 [id number] capsule by i ty of mg zinc 00:00: mouth [place] (220 mg) 00 daily. [facility] capsule [facility] zinc Yes [id number] 220mg Take 1 [facility] sulfate 50 9-30 [id number] capsule by i ty of mg zinc 00:00: mouth [place] (220 mg) 00 daily. [facility] capsule [facility] zinc Yes [id number] 220mg Take 1 [facility] sulfate 50 9-30 [id number] capsule by i ty of mg zinc 00:00: mouth [place] (220 mg) 00 daily. [facility] capsule [facility] zinc Yes [id number] 220mg Take 1 [facility] sulfate 50 9-30 [id number] capsule by i ty of mg zinc 00:00: mouth [place] (220 mg) 00 daily. [facility] capsule [facility] zinc Yes [id number] 220mg Take 1 [facility] sulfate 50 9-30 [id number] capsule by i ty of mg zinc 00:00: mouth [place] (220 mg) 00 daily. [facility] capsule [facility] zinc Yes [id number] 220mg Take 1 [facility] sulfate 50 9-30 [id number] capsule by i ty of mg zinc 00:00: mouth [place] (220 mg) 00 daily. [facility] capsule [facility] zinc Yes [id number] 220mg Take 1 [facility] sulfate 50 9-30 [id number] capsule by i ty of mg zinc 00:00: mouth [place] (220 mg) 00 daily. [facility] capsule [facility] zinc Yes [id number] 220mg Take 1 [facility] sulfate 50 9-30 [id number] capsule by i ty of mg zinc 00:00: mouth [place] (220 mg) 00 daily. [facility] capsule [facility] zinc Yes [id number] 220mg Take 1 [facility] sulfate 50 9-30 [id number] capsule by i ty of mg zinc 00:00: mouth [place] (220 mg) 00 daily. [facility] capsule [facility] zinc Yes [id number] 220mg Take 1 [facility] sulfate 50 9-30 [id number] capsule by i ty of mg zinc 00:00: mouth [place] (220 mg) 00 daily. [facility] capsule [facility] zinc Yes [id number] 220mg Take 1 [facility] sulfate 50 9-30 [id number] capsule by i ty of mg zinc 00:00: mouth [place] (220 mg) 00 daily. [facility] capsule [facility] zinc Yes [id number] 220mg Take 1 [facility] sulfate 50 9-30 [id number] capsule by i ty of mg zinc 00:00: mouth [place] (220 mg) 00 daily. [facility] capsule [facility] zinc Yes [id number] 220mg Take 1 [facility] sulfate 50 9-30 [id number] capsule by i ty of mg zinc 00:00: mouth [place] (220 mg) 00 daily. [facility] capsule [facility] zinc Yes [id number] 220mg Take 1 [facility] sulfate 50 9-30 [id number] capsule by i ty of mg zinc 00:00: mouth [place] (220 mg) 00 daily. [facility] capsule [facility] zinc Yes [id number] 220mg Take 1 [facility] sulfate 50 9-30 [id number] capsule by i ty of mg zinc 00:00: mouth [place] (220 mg) 00 daily. [facility] capsule [facility] zinc Yes [id number] 220mg Take 1 [facility] sulfate 50 9-30 [id number] capsule by i ty of mg zinc 00:00: mouth [place] (220 mg) 00 daily. [facility] capsule [facility] zinc Yes [id number] 220mg Take 1 [facility] sulfate 50 9-30 [id number] capsule by i ty of mg zinc 00:00: mouth [place] (220 mg) 00 daily. [facility] capsule [facility] zinc 2021-0 Yes [id number] 220mg Take 1 [facility] sulfate 50 9-30 [id number] capsule by i ty of mg zinc 00:00: mouth [place] (220 mg) 00 daily. [facility] capsule [facility] zinc Yes [id number] 220mg Take 1 [facility] sulfate 50 9-30 [id number] capsule by i ty of mg zinc 00:00: mouth [place] (220 mg) 00 daily. [facility] capsule [facility] zinc Yes [id number] 220mg Take 1 [facility] sulfate 50 9-30 [id number] capsule by i ty of mg zinc 00:00: mouth [place] (220 mg) 00 daily. [facility] capsule [facility] zinc Yes [id number] 220mg Take 1 [facility] sulfate 50 9-30 [id number] capsule by i ty of mg zinc 00:00: mouth [place] (220 mg) 00 daily. [facility] capsule [facility] zinc Yes [id number] 220mg Take 1 [facility] sulfate 50 9-30 [id number] capsule by i ty of mg zinc 00:00: mouth [place] (220 mg) 00 daily. [facility] capsule [facility] zinc Yes [id number] 220mg Take 1 [facility] sulfate 50 9-30 [id number] capsule by i ty of mg zinc 00:00: mouth [place] (220 mg) 00 daily. [facility] capsule [facility] zinc Yes [id number] 220mg Take 1 [facility] sulfate 50 9-30 [id number] capsule by i ty of mg zinc 00:00: mouth [place] (220 mg) 00 daily. [facility] capsule [facility] zinc Yes [id number] 220mg Take 1 [facility] sulfate 50 9-30 [id number] capsule by i ty of mg zinc 00:00: mouth [place] (220 mg) 00 daily. [facility] capsule [facility] zinc Yes [id number] 220mg Take 1 [facility] sulfate 50 9-30 [id number] capsule by i ty of mg zinc 00:00: mouth [place] (220 mg) 00 daily. [facility] capsule [facility] zinc Yes [id number] 220mg Take 1 [facility] sulfate 50 9-30 [id number] capsule by i ty of mg zinc 00:00: mouth [place] (220 mg) 00 daily. [facility] capsule [facility] zinc Yes [id number] 220mg Take 1 [facility] sulfate 50 9-30 [id number] capsule by i ty of mg zinc 00:00: mouth [place] (220 mg) 00 daily. [facility] capsule [facility] zinc Yes [id number] 220mg Take 1 [facility] sulfate 50 9-30 [id number] capsule by i ty of mg zinc 00:00: mouth [place] (220 mg) 00 daily. [facility] capsule [facility] zinc Yes [id number] 220mg Take 1 [facility] sulfate 50 9-30 [id number] capsule by i ty of mg zinc 00:00: mouth [place] (220 mg) 00 daily. [facility] capsule [facility] zinc Yes [id number] 220mg Take 1 [facility] sulfate 50 9-30 [id number] capsule by i ty of mg zinc 00:00: mouth [place] (220 mg) 00 daily. [facility] capsule [facility] zinc Yes [id number] 220mg Take 1 [facility] sulfate 50 9-30 [id number] capsule by i ty of mg zinc 00:00: mouth [place] (220 mg) 00 daily. [facility] capsule [facility] zinc Yes [id number] 220mg Take 1 [facility] sulfate 50 9-30 [id number] capsule by i ty of mg zinc 00:00: mouth [place] (220 mg) 00 daily. [facility] capsule [facility] zinc Yes [id number] 220mg Take 1 [facility] sulfate 50 9-30 [id number] capsule by i ty of mg zinc 00:00: mouth [place] (220 mg) 00 daily. [facility] capsule [facility] zinc Yes [id number] 220mg Take 1 [facility] sulfate 50 9-30 [id number] capsule by i ty of mg zinc 00:00: mouth [place] (220 mg) 00 daily. [facility] capsule [facility] zinc Yes [id number] 220mg Take 1 [facility] sulfate 50 9-30 [id number] capsule by i ty of mg zinc 00:00: mouth [place] (220 mg) 00 daily. [facility] capsule [facility] zinc Yes [id number] 220mg Take 1 [facility] sulfate 50 9-30 [id number] capsule by i ty of mg zinc 00:00: mouth [place] (220 mg) 00 daily. [facility] capsule [facility] zinc Yes [id number] 220mg Take 1 [facility] sulfate 50 9-30 [id number] capsule by i ty of mg zinc 00:00: mouth [place] (220 mg) 00 daily. [facility] capsule [facility] zinc Yes [id number] 220mg Take 1 [facility] sulfate 50 9-30 [id number] capsule by i ty of mg zinc 00:00: mouth [place] (220 mg) 00 daily. [facility] capsule [facility] zinc Yes [id number] 220mg Take 1 [facility] sulfate 50 9-30 [id number] capsule by i ty of mg zinc 00:00: mouth [place] (220 mg) 00 daily. [facility] capsule [facility] zinc Yes [id number] 220mg Take 1 [facility] sulfate 50 9-30 [id number] capsule by i ty of mg zinc 00:00: mouth [place] (220 mg) 00 daily. [facility] capsule [facility] zinc Yes [id number] 220mg Take 1 [facility] sulfate 50 9-30 [id number] capsule by i ty of mg zinc 00:00: mouth [place] (220 mg) 00 daily. [facility] capsule [facility] zinc Yes [id number] 220mg Take 1 [facility] sulfate 50 9-30 [id number] capsule by i ty of mg zinc 00:00: mouth [place] (220 mg) 00 daily. [facility] capsule [facility] zinc Yes [id number] 220mg Take 1 [facility] sulfate 50 9-30 [id number] capsule by i ty of mg zinc 00:00: mouth [place] (220 mg) 00 daily. [facility] capsule [facility] zinc Yes [id number] 220mg Take 1 [facility] sulfate 50 9-30 [id number] capsule by i ty of mg zinc 00:00: mouth [place] (220 mg) 00 daily. [facility] capsule [facility] zinc Yes [id number] 220mg Take 1 [facility] sulfate 50 9-30 [id number] capsule by i ty of mg zinc 00:00: mouth [place] (220 mg) 00 daily. [facility] capsule [facility] zinc Yes [id number] 220mg Take 1 [facility] sulfate 50 9-30 [id number] capsule by i ty of mg zinc 00:00: mouth [place] (220 mg) 00 daily. [facility] capsule [facility] zinc Yes [id number] 220mg Take 1 [facility] sulfate 50 9-30 [id number] capsule by i ty of mg zinc 00:00: mouth [place] (220 mg) 00 daily. [facility] capsule [facility] zinc Yes [id number] 220mg Take 1 [facility] sulfate 50 9-30 [id number] capsule by i ty of mg zinc 00:00: mouth [place] (220 mg) 00 daily. [facility] capsule [facility] zinc Yes [id number] 220mg Take 1 [facility] sulfate 50 9-30 [id number] capsule by i ty of mg zinc 00:00: mouth [place] (220 mg) 00 daily. [facility] capsule [facility] zinc Yes [id number] 220mg Take 1 [facility] sulfate 50 9-30 [id number] capsule by i ty of mg zinc 00:00: mouth [place] (220 mg) 00 daily. [facility] capsule [facility] zinc Yes [id number] 220mg Take 1 [facility] sulfate 50 9-30 [id number] capsule by i ty of mg zinc 00:00: mouth [place] (220 mg) 00 daily. [facility] capsule [facility] zinc Yes [id number] 220mg Take 1 [facility] sulfate 50 9-30 [id number] capsule by i ty of mg zinc 00:00: mouth [place] (220 mg) 00 daily. [facility] capsule [facility] zinc Yes [id number] 220mg Take 1 [facility] sulfate 50 9-30 [id number] capsule by i ty of mg zinc 00:00: mouth [place] (220 mg) 00 daily. [facility] capsule [facility] zinc Yes [id number] 220mg Take 1 [facility] sulfate 50 9-30 [id number] capsule by i ty of mg zinc 00:00: mouth [place] (220 mg) 00 daily. [facility] capsule [facility] zinc Yes [id number] 220mg Take 1 [facility] sulfate 50 9-30 [id number] capsule by i ty of mg zinc 00:00: mouth [place] (220 mg) 00 daily. [facility] capsule [facility] zinc Yes [id number] 220mg Take 1 [facility] sulfate 50 9-30 [id number] capsule by i ty of mg zinc 00:00: mouth [place] (220 mg) 00 daily. [facility] capsule [facility] zinc Yes [id number] 220mg Take 1 [facility] sulfate 50 9-30 [id number] capsule by i ty of mg zinc 00:00: mouth [place] (220 mg) 00 daily. [facility] capsule [facility] zinc Yes [id number] 220mg Take 1 [facility] sulfate 50 9-30 [id number] capsule by i ty of mg zinc 00:00: mouth [place] (220 mg) 00 daily. [facility] capsule [facility] zinc Yes [id number] 220mg Take 1 [facility] sulfate 50 9-30 [id number] capsule by i ty of mg zinc 00:00: mouth [place] (220 mg) 00 daily. [facility] capsule [facility] zinc Yes [id number] 220mg Take 1 [facility] sulfate 50 9-30 [id number] capsule by i ty of mg zinc 00:00: mouth [place] (220 mg) 00 daily. [facility] capsule [facility] zinc 0 Yes [id number] 220mg Take 1 [facility] sulfate 50 9-30 [id number] capsule by i ty of mg zinc 00:00: mouth [place] (220 mg) 00 daily. [facility] capsule [facility] zinc 0 Yes [id number] 220mg Take 1 [facility] sulfate 50 9-30 [id number] capsule by i ty of mg zinc 00:00: mouth [place] (220 mg) 00 daily. [facility] capsule [facility] zinc Yes [id number] 220mg Take 1 [facility] sulfate 50 9-30 [id number] capsule by i ty of mg zinc 00:00: mouth [place] (220 mg) 00 daily. [facility] capsule [facility] zinc Yes [id number] 220mg Take 1 [facility] sulfate 50 9-30 [id number] capsule by i ty of mg zinc 00:00: mouth [place] (220 mg) 00 daily. [facility] capsule [facility] zinc Yes [id number] 220mg Take 1 [facility] sulfate 50 9-30 [id number] capsule by i ty of mg zinc 00:00: mouth [place] (220 mg) 00 daily. [facility] capsule [facility] zinc Yes [id number] 220mg Take 1 [facility] sulfate 50 9-30 [id number] capsule by i ty of mg zinc 00:00: mouth [place] (220 mg) 00 daily. [facility] capsule [facility] zinc Yes [id number] 220mg Take 1 [facility] sulfate 50 9-30 [id number] capsule by i ty of mg zinc 00:00: mouth [place] (220 mg) 00 daily. [facility] capsule [facility] zinc Yes [id number] 220mg Take 1 [facility] sulfate 50 9-30 [id number] capsule by i ty of mg zinc 00:00: mouth [place] (220 mg) 00 daily. [facility] capsule [facility] zinc 0 Yes [id number] 220mg Take 1 [facility] sulfate 50 9-30 [id number] capsule by i ty of mg zinc 00:00: mouth [place] (220 mg) 00 daily. [facility] capsule [facility] zinc 0 Yes [id number] 220mg Take 1 [facility] sulfate 50 9-30 [id number] capsule by i ty of mg zinc 00:00: mouth [place] (220 mg) 00 daily. [facility] capsule [facility] zinc 2020-0 Yes [id number] 220mg Take 1 [facility] sulfate 50 9-30 [id number] capsule by i ty of mg zinc 00:00: mouth [place] (220 mg) 00 daily. [facility] capsule [facility] zinc Yes [id number] 220mg Take 1 [facility] sulfate 50 9-30 [id number] capsule by i ty of mg zinc 00:00: mouth [place] (220 mg) 00 daily. [facility] capsule [facility] zinc Yes [id number] 220mg Take 1 [facility] sulfate 50 9-30 [id number] capsule by i ty of mg zinc 00:00: mouth [place] (220 mg) 00 daily. [facility] capsule [facility] zinc Yes [id number] 220mg Take 1 [facility] sulfate 50 9-30 [id number] capsule by i ty of mg zinc 00:00: mouth [place] (220 mg) 00 daily. [facility] capsule [facility] zinc Yes [id number] 220mg Take 1 [facility] sulfate 50 9-30 [id number] capsule by i ty of mg zinc 00:00: mouth [place] (220 mg) 00 daily. [facility] capsule [facility] zinc Yes [id number] 220mg Take 1 [facility] sulfate 50 9-30 [id number] capsule by i ty of mg zinc 00:00: mouth [place] (220 mg) 00 daily. [facility] capsule [facility] zinc Yes [id number] 220mg Take 1 [facility] sulfate 50 9-30 [id number] capsule by i ty of mg zinc 00:00: mouth [place] (220 mg) 00 daily. [facility] capsule [facility] zinc Yes [id number] 220mg Take 1 [facility] sulfate 50 9-30 [id number] capsule by i ty of mg zinc 00:00: mouth [place] (220 mg) 00 daily. [facility] capsule [facility] zinc Yes [id number] 220mg Take 1 [facility] sulfate 50 9-30 [id number] capsule by i ty of mg zinc 00:00: mouth [place] (220 mg) 00 daily. [facility] capsule [facility] zinc Yes [id number] 220mg Take 1 [facility] sulfate 50 9-30 [id number] capsule by i ty of mg zinc 00:00: mouth [place] (220 mg) 00 daily. [facility] capsule [facility] zinc Yes [id number] 220mg Take 1 [facility] sulfate 50 9-30 [id number] capsule by i ty of mg zinc 00:00: mouth [place] (220 mg) 00 daily. Medical capsule [facility] ascorbic 2020- Yes [id number] 500mg Take 1 [facility] acid, 9- 333606 tablet by [facility] vitamin C, 00:00: [facility] [place] 500 mg 00 (two) Medical tablet times Branch daily. ascorbic 2020-0 Yes [id number] 500mg Take 1 [facility] acid, 11-13 [id number] tablet by [facility] vitamin C, 00:00: mouth [facility] [place] 500 mg 00 (two) Medical tablet times Branch daily. ascorbic 2020-0 Yes [id number] 500mg Take 1 [facility] acid, 11-13 [id number] tablet by [facility] vitamin C, 00:00: mouth [facility] [place] 500 mg 00 (two) Medical tablet times Branch daily. ascorbic 2020-0 Yes [id number] 500mg Take 1 [facility] acid, 11-13 [id number] tablet by [facility] of vitamin C, 00:00: mouth [facility] [place] 500 mg 00 (two) Medical tablet times Branch daily. ascorbic 2020-0 Yes [id number] 500mg Take 1 [facility] acid, 11-13 [id number] tablet by [facility] vitamin C, 00:00: mouth [facility] [place] 500 mg 00 (two) Medical tablet times Branch daily. ascorbic 2020-0 Yes [id number] 500mg Take 1 [facility] acid, 11-13 [id number] tablet by [facility] of vitamin C, 00:00: mouth [facility] [place] 500 mg 00 (two) Medical tablet times Branch daily. ascorbic 2020-0 Yes [id number] 500mg Take 1 [facility] acid, 11-13 [id number] tablet by [facility] vitamin C, 00:00: mouth 2 [place] 500 mg 00 (two) Medical tablet times Branch daily. ascorbic 2020-0 Yes [id number] 500mg Take 1 [facility] acid, 11-13 [id number] tablet by [facility] of vitamin C, 00:00: mouth 2 [place] 500 mg 00 (two) Medical tablet times Branch daily. ascorbic 2020-0 Yes [id number] 500mg Take 1 [facility] acid, 11-13 [id number] tablet by [facility] of vitamin C, 00:00: mouth 2 [place] 500 mg 00 (two) Medical tablet times Branch daily. ascorbic 2020-0 Yes [id number] 500mg Take 1 [facility] acid, 11-13 [id number] tablet by [facility] of vitamin C, 00:00: mouth 2 [place] 500 mg 00 (two) Medical tablet times Branch daily. ascorbic 2020-0 Yes [id number] 500mg Take 1 [facility] acid, 11-13 [id number] tablet by [facility] of vitamin C, 00:00: mouth 2 [place] 500 mg 00 (two) Medical tablet times Branch daily. ascorbic 2020-0 Yes [id number] 500mg Take 1 [facility] acid, 11-13 [id number] tablet by [facility] of vitamin C, 00:00: mouth 2 [place] 500 mg 00 (two) Medical tablet times Branch daily. ascorbic 2020-0 Yes [id number] 500mg Take 1 [facility] acid, 11-13 [id number] tablet by [facility] vitamin C, 00:00: mouth 2 [place] 500 mg 00 (two) Medical tablet times Branch daily. ascorbic 2020-0 Yes [id number] 500mg Take 1 [facility] acid, 11-13 [id number] tablet by [facility] of vitamin C, 00:00: mouth 2 [place] 500 mg 00 (two) Medical tablet times Branch daily. ascorbic 2020-0 Yes [id number] 500mg Take 1 [facility] acid, 11-13 [id number] tablet by [facility] of vitamin C, 00:00: mouth 2 [place] 500 mg 00 (two) Medical tablet times Branch daily. ascorbic 2020-0 Yes [id number] 500mg Take 1 [facility] acid, 11-13 [id number] tablet by [facility] of vitamin C, 00:00: mouth 2 [place] 500 mg 00 (two) Medical tablet times Branch daily. ascorbic 2020-0 Yes [id number] 500mg Take 1 [facility] acid, 11-13 [id number] tablet by [facility] of vitamin C, 00:00: mouth 2 [place] 500 mg 00 (two) Medical tablet times Branch daily. ascorbic 2020-0 Yes [id number] 500mg Take 1 [facility] acid, 11-13 [id number] tablet by [facility] of vitamin C, 00:00: mouth 2 [place] 500 mg 00 (two) Medical tablet times Branch daily. ascorbic 2020-0 Yes [id number] 500mg Take 1 [facility] acid, 11-13 [id number] tablet by [facility] of vitamin C, 00:00: mouth 2 [place] 500 mg 00 (two) Medical tablet times Branch daily. ascorbic 2020-0 Yes [id number] 500mg Take 1 [facility] acid, 11-13 [id number] tablet by [facility] of vitamin C, 00:00: mouth 2 [place] 500 mg 00 (two) Medical tablet times Branch daily. ascorbic 2020- Yes [id number] 500mg Take 1 [facility] acid, 11-13 [id number] tablet by [facility] of vitamin C, 00:00: mouth 2 [place] 500 mg 00 (two) Medical tablet times Branch daily. ascorbic 2020-0 Yes [id number] 500mg Take 1 [facility] acid, 11-13 [id number] tablet by [facility] of vitamin C, 00:00: mouth 2 [place] 500 mg 00 (two) Medical tablet times Branch daily. ascorbic 2020- Yes [id number] 500mg Take 1 [facility] acid, 11-13 [id number] tablet by [facility] of vitamin C, 00:00: mouth 2 [place] 500 mg 00 (two) Medical tablet times Branch daily. ascorbic 2020- Yes [id number] 500mg Take 1 [facility] acid, 11-13 [id number] tablet by [facility] of vitamin C, 00:00: mouth 2 [place] 500 mg 00 (two) Medical tablet times Branch daily. ascorbic Yes [id number] 500mg Take 1 [facility] acid, 11-13 [id number] tablet by [facility] of vitamin C, 00:00: mouth 2 [place] 500 mg 00 (two) Medical tablet times Branch daily. ascorbic Yes [id number] 500mg Take 1 [facility] acid, 11-13 [id number] tablet by [facility] of vitamin C, 00:00: mouth 2 [place] 500 mg 00 (two) Medical tablet times Branch daily. ascorbic Yes [id number] 500mg Take 1 [facility] acid, 11-13 [id number] tablet by [facility] of vitamin C, 00:00: mouth 2 [place] 500 mg 00 (two) Medical tablet times Branch daily. ascorbic 2021- No [id number] 500mg Take 1 [facility] acid, 11-13 [id number] tablet by [facility] of vitamin C, 00:00: 00:00 mouth 2 [place] 500 mg 00 :00 (two) Medical tablet times Branch daily. acetaminoph 2021- No [id number] 650mg Take 2 [facility] 325 mg 11-13 [id number] tablets by i ty of tablet 00:00: 04:59 mouth [place] 00 :00 every 6 Medical (six) Branch hours as needed for Pain (scale 1-3) or Temp > 38.5 C. acetaminoph 2021- No [id number] 650mg Take 2 [facility] 325 mg 11-13 [id number] tablets by i ty of tablet 00:00: 04:59 mouth [place] 00 :00 every 6 Medical (six) Branch hours as needed for Pain (scale 1-3) or Temp > 38.5 C. acetaminoph 2020-2021- No [id number] 650mg Take 2 [facility] en 325 mg 11-13 [id number] tablets by i ty of tablet 00:00: 04:59 mouth [place] 00 :00 every 6 Medical (six) Branch hours as needed for Pain (scale 1-3) or Temp > 38.5 C. acetaminoph 2020-2021- No [id number] 650mg Take 2 [facility] en 325 mg 11-13 [id number] tablets by i ty of tablet 00:00: 04:59 mouth [place] 00 :00 every 6 Medical (six) Branch hours as needed for Pain (scale 1-3) or Temp > 38.5 C. acetaminoph 2020-2021- No [id number] 650mg Take 2 [facility] en 325 mg 11-13 [id number] tablets by i ty of tablet 00:00: 04:59 mouth [place] 00 :00 every 6 Medical (six) Branch hours as needed for Pain (scale 1-3) or Temp > 38.5 C. acetaminoph 2020-2021- No [id number] 650mg Take 2 [facility] en 325 mg 11-13 [id number] tablets by i ty of tablet 00:00: 04:59 mouth [place] 00 :00 every 6 Medical (six) Branch hours as needed for Pain (scale 1-3) or Temp > 38.5 C. acetaminoph 2020-2021- No [id number] 650mg Take 2 [facility] en 325 mg 11-13 [id number] tablets by i ty of tablet 00:00: 04:59 mouth [place] 00 :00 every 6 Medical (six) Branch hours as needed for Pain (scale 1-3) or Temp > 38.5 C. acetaminoph 2020-2021- No [id number] 650mg Take 2 [facility] en 325 mg 11-13 [id number] tablets by i ty of tablet 00:00: 04:59 mouth [place] 00 :00 every 6 Medical (six) Branch hours as needed for Pain (scale 1-3) or Temp > 38.5 C. acetaminoph 2020-0 2021- No [id number] 650mg Take 2 [facility] en 325 mg 11-13 [id number] tablets by i ty of tablet 00:00: 04:59 mouth [place] 00 :00 every 6 Medical (six) Branch hours as needed for Pain (scale 1-3) or Temp > 38.5 C. acetaminoph 2020-0 2021- No [id number] 650mg Take 2 [facility] en 325 mg 11-13 [id number] tablets by i ty of tablet 00:00: 04:59 mouth [place] 00 :00 every 6 Medical (six) Branch hours as needed for Pain (scale 1-3) or Temp > 38.5 C. acetaminoph 2020-2021- No [id number] 650mg Take 2 [facility] en 325 mg 11-13 [id number] tablets by i ty of tablet 00:00: 04:59 mouth [place] 00 :00 every 6 Medical (six) Branch hours as needed for Pain (scale 1-3) or Temp > 38.5 C. acetaminoph 2020-2021- No [id number] 650mg Take 2 [facility] en 325 mg 11-13 [id number] tablets by i ty of tablet 00:00: 04:59 mouth [place] 00 :00 every 6 Medical (six) Branch hours as needed for Pain (scale 1-3) or Temp > 38.5 C. acetaminoph 2020-2021- No [id number] 650mg Take 2 [facility] en 325 mg 11-13 [id number] tablets by i ty of tablet 00:00: 04:59 mouth [place] 00 :00 every 6 Medical (six) Branch hours as needed for Pain (scale 1-3) or Temp > 38.5 C. acetaminoph 2020-0 2021- No [id number] 650mg Take 2 [facility] en 325 mg 11-13 [id number] tablets by i ty of tablet 00:00: 04:59 mouth [place] 00 :00 every 6 Medical (six) Branch hours as needed for Pain (scale 1-3) or Temp > 38.5 C. acetaminoph 202-0 2021- No [id number] 650mg Take 2 [facility] en 325 mg 11-13 [id number] tablets by i ty of tablet 00:00: 04:59 mouth [place] 00 :00 every 6 Medical (six) Branch hours as needed for Pain (scale 1-3) or Temp > 38.5 C. acetaminoph 2020-2021- No [id number] 650mg Take 2 [facility] en 325 mg 11-13 [id number] tablets by i ty of tablet 00:00: 04:59 mouth [place] 00 :00 every 6 Medical (six) Branch hours as needed for Pain (scale 1-3) or Temp > 38.5 C. acetaminoph 2020-2021- No [id number] 650mg Take 2 [facility] en 325 mg 11-13 [id number] tablets by i ty of tablet 00:00: 04:59 mouth [place] 00 :00 every 6 Medical (six) Branch hours as needed for Pain (scale 1-3) or Temp > 38.5 C. acetaminoph 2020-2021- No [id number] 650mg Take 2 [facility] en 325 mg 11-13 [id number] tablets by i ty of tablet 00:00: 04:59 mouth [place] 00 :00 every 6 Medical (six) Branch hours as needed for Pain (scale 1-3) or Temp > 38.5 C. acetaminoph 2020-2021- No [id number] 650mg Take 2 [facility] en 325 mg 11-13 [id number] tablets by i ty of tablet 00:00: 04:59 mouth [place] 00 :00 every 6 Medical (six) Branch hours as needed for Pain (scale 1-3) or Temp > 38.5 C. acetaminoph 2020-2021- No [id number] 650mg Take 2 [facility] en 325 mg 11-13 [id number] tablets by i ty of tablet 00:00: 04:59 mouth [place] 00 :00 every 6 Medical (six) Branch hours as needed for Pain (scale 1-3) or Temp > 38.5 C. acetaminoph 2020-2021- No [id number] 650mg Take 2 [facility] en 325 mg 11-13 [id number] tablets by i ty of tablet 00:00: 04:59 mouth [place] 00 :00 every 6 Medical (six) Branch hours as needed for Pain (scale 1-3) or Temp > 38.5 C. acetaminoph 2021- No [id number] 650mg Take 2 [facility] en 325 mg 11-13 [id number] tablets by i ty of tablet 00:00: 04:59 mouth [place] 00 :00 every 6 Medical (six) Branch hours as needed for Pain (scale 1-3) or Temp > 38.5 C. acetaminoph 2021- No [id number] 650mg Take 2 [facility] en 325 mg 11-13 [id number] tablets by i ty of tablet 00:00: 04:59 mouth [place] 00 :00 every 6 Medical (six) Branch hours as needed for Pain (scale 1-3) or Temp > 38.5 C. acetaminoph 2021- No [id number] 650mg Take 2 [facility] en 325 mg 11-13 [id number] tablets by i ty of tablet 00:00: 04:59 mouth [place] 00 :00 every 6 Medical (six) Branch hours as needed for Pain (scale 1-3) or Temp > 38.5 C. furosemide 2021- No [id number] 20mg Take 1 [facility] 20 mg 2-22 05-12 tablet by ity of tablet 00:00: 00:00 mouth [place] 00 :00 daily. Medical Branch furosemide 2021- No [id number] 20mg Take 1 [facility] 20 mg 2-22 05-12 tablet by ity of tablet 00:00: 00:00 mouth [place] 00 :00 daily. Medical Branch hydroCHLORO 2019-02- No 25mg Take 25 mg [facility] thiazide 25 02-24 by mouth ity of mg tablet 00:00: 00:00 daily. [place] 00 :00 Medical Branch hydrALAZINE 2019-02- No 25mg Take 1 [facility] vers 25 mg 012-16 tablet by ity of tablet 00:00: 00:00 mouth 2 [place] 00 :00 (two) Medical times Branch daily. tolnaftate Yes [id number] Apply to Univers 1 % cream 9-15 area(s) 2 ity o f 00:00: (two) [place] 00 times Medical daily. Branch tolnaftate Yes [id number] Apply to [facility] 1 % cream 9-15 area(s) 2 ity o f 00:00: (two) [place] 00 times Medical daily. Branch tolnaftate 2020-0 Yes [id number] Apply to [facility] 1 % cream 9-15 area(s) 2 ity o f 00:00: (two) [place] 00 times Medical daily. Branch tolnaftate 2020-0 Yes [id number] Apply to [facility] 1 % cream 9-15 area(s) 2 ity o f 00:00: (two) [place] 00 times Medical daily. Branch tolnaftate 2020-0 Yes [id number] Apply to Univers 1 % cream 9-15 area(s) 2 ity o f 00:00: (two) [place] 00 times Medical daily. Branch tolnaftate 2020-0 Yes [id number] Apply to [facility] 1 % cream 9-15 area(s) 2 ity o f 00:00: (two) [place] 00 times Medical daily. Branch tolnaftate 2020-0 Yes [id number] Apply to Univers 1 % cream 9-15 area(s) 2 ity o f 00:00: (two) [place] 00 times Medical daily. Branch tolnaftate 2020-0 Yes [id number] Apply to [facility] 1 % cream 9-15 area(s) 2 ity o f 00:00: (two) [place] 00 times Medical daily. Branch tolnaftate 2020-0 Yes [id number] Apply to Univers 1 % cream 9-15 area(s) 2 ity o f 00:00: (two) [place] 00 times Medical daily. Branch tolnaftate 2020-0 Yes [id number] Apply to Univers 1 % cream 9-15 area(s) 2 ity o f 00:00: (two) [place] 00 times Medical daily. Branch tolnaftate 2020-0 Yes [id number] Apply to Univers 1 % cream 9-15 area(s) 2 ity o f 00:00: (two) [place] 00 times Medical daily. Branch tolnaftate 2020-0 Yes [id number] Apply to Univers 1 % cream 9-15 area(s) 2 ity o f 00:00: (two) [place] 00 times Medical daily. Branch tolnaftate 2020-0 Yes [id number] Apply to Univers 1 % cream 9-15 area(s) 2 ity o f 00:00: (two) [place] 00 times Medical daily. Branch tolnaftate 2020-0 Yes [id number] Apply to Univers 1 % cream 9-15 area(s) 2 ity o f 00:00: (two) [place] 00 times Medical daily. Branch tolnaftate 2020-0 Yes [id number] Apply to Univers 1 % cream 9-15 area(s) 2 ity o f 00:00: (two) [place] 00 times Medical daily. Branch tolnaftate 2020-0 Yes [id number] Apply to Univers 1 % cream 9-15 area(s) 2 ity o f 00:00: (two) [place] 00 times Medical daily. Branch tolnaftate 2020-0 Yes [id number] Apply to Univers 1 % cream 9-15 area(s) 2 ity o f 00:00: (two) [place] 00 times Medical daily. Branch tolnaftate 2020-0 Yes [id number] Apply to Univers 1 % cream 9-15 area(s) 2 ity o f 00:00: (two) [place] 00 times Medical daily. Branch tolnaftate 2020-0 Yes [id number] Apply to Univers 1 % cream 9-15 area(s) 2 ity o f 00:00: (two) [place] 00 times Medical daily. Branch tolnaftate 2020-0 Yes [id number] Apply to Univers 1 % cream 9-15 area(s) 2 ity o f 00:00: (two) [place] 00 times Medical daily. Branch tolnaftate 2020-0 Yes [id number] Apply to Univers 1 % cream 9-15 area(s) 2 ity o f 00:00: (two) [place] 00 times Medical daily. Branch tolnaftate 2020-0 Yes [id number] Apply to Univers 1 % cream 9-15 area(s) 2 ity o f 00:00: (two) [place] 00 times Medical daily. Branch tolnaftate 2020-0 Yes [id number] Apply to Univers 1 % cream 9-15 area(s) 2 ity o f 00:00: (two) [place] 00 times Medical daily. Branch tolnaftate 2020-0 Yes [id number] Apply to Univers 1 % cream 9-15 area(s) 2 ity o f 00:00: (two) [place] 00 times Medical daily. Branch tolnaftate 2020-0 Yes [id number] Apply to Univers 1 % cream 9-15 area(s) 2 ity o f 00:00: (two) [place] 00 times Medical daily. Branch tolnaftate 2019- Yes [id number] Apply to Univers 1 % cream 9-15 area(s) 2 ity o f 00:00: (two) [place] 00 times Medical daily. Branch tolnaftate 2019- Yes [id number] Apply to Univers 1 % cream 9-15 area(s) 2 ity o f 00:00: (two) [place] 00 times Medical daily. Branch tolnaftate 2021- No [id number] Apply to Univers 1 % cream 9-15 11-04 area(s) 2 ity of 00:00: 00:00 (two) [place] 00 :00 times Medical daily. Branch tolnaftate 2021- No [id number] Apply to Univers 1 % cream 9-15 11-04 area(s) 2 ity of 00:00: 00:00 (two) [place] 00 :00 times Medical daily. Branch glimepiride 2020- No Unive rs 2 mg tablet 10-25 ity of 00:00: 00:00 [place] 00 :00 Medical Branch tamsulosin 2020- No .4mg Take 0.4 Un bhumi 0.4 mg 24 8- 03-08 mg by ity of hr capsule 00:00: 00:00 mouth [place] 00 :00 daily. Medical Branch clopidogreL 2021- No 75mg Take 75 mg Univers 75 mg 10-09 04-11 by mouth ity of tablet 00:00: 00:00 daily. [place] 00 :00 Medical Branch losartan 2020- No 100mg Take 100 Uni vers 100 mg 8- 11-01 mg by ity of tablet 00:00: 00:00 mouth [place] 00 :00 daily. Medical Branch Immunizations Ordered Filled Date Status Comments Source Immunization Name Immunization Name TDAP 2022-05-04 Completed [facility] of 00:00:00 [facility] Pneumococcal 20 2022-05-04 Completed Universit y of Conjugate, PCV20 00:00:00 [facility] dical (Prevnar 20) Branch TDAP 2022-05-04 Completed [facility] of 00:00:00 [place] [facility] Pneumococcal 20 2022-05-04 Completed Universit y of Conjugate, PCV20 00:00:00 [facility] dical (Prevnar 20) Branch [facility] 2022-05-04 Completed University of 00:00:00 [facility] Pneumococcal 20 2022-05-04 Completed Universit y of Conjugate, PCV20 00:00:00 [facility] dical (Prevnar 20) Branch [facility] 2022-05-04 Completed University of 00:00:00 [facility] Pneumococcal 20 2022-05-04 Completed Universit y of Conjugate, PCV20 00:00:00 [facility] dical (Prevnar 20) Branch [facility] 2022-05-04 Completed University of 00:00:00 [facility] Pneumococcal 20 2022-05-04 Completed Universit y of Conjugate, PCV20 00:00:00 [facility] dical (Prevnar 20) Branch [facility] 2022-05-04 Completed University of 00:00:00 [facility] Pneumococcal 20 2022-05-04 Completed Universit y of Conjugate, PCV20 00:00:00 [facility] dical (Prevnar 20) Branch [facility] 2022-05-04 Completed University of 00:00:00 [facility] Pneumococcal 20 2022-05-04 Completed Universit y of Conjugate, PCV20 00:00:00 [facility] dical (Prevnar 20) Branch [facility] 2022-05-04 Completed University of 00:00:00 [facility] Pneumococcal 20 2022-05-04 Completed Universit y of Conjugate, PCV20 00:00:00 [facility] dical (Prevnar 20) Branch [facility] 2022-05-04 Completed University of 00:00:00 [facility] Pneumococcal 20 2022-05-04 Completed Universit y of Conjugate, PCV20 00:00:00 [facility] dical (Prevnar 20) Branch [facility] 2022-05-04 Completed University of 00:00:00 [facility] Pneumococcal 20 2022-05-04 Completed Universit y of Conjugate, PCV20 00:00:00 [facility] dical (Prevnar 20) Branch [facility] 2022-05-04 Completed University of 00:00:00 [facility] Pneumococcal 20 2022-05-04 Completed Universit y of Conjugate, PCV20 00:00:00 [facility] dical (Prevnar 20) Branch [facility] 2022-05-04 Completed University of 00:00:00 [facility] Pneumococcal 20 2022-05-04 Completed Universit y of Conjugate, PCV20 00:00:00 [facility] dical (Prevnar 20) Branch [facility] 2022-05-04 Completed University of 00:00:00 [facility] Pneumococcal 20 2022-05-04 Completed Universit y of Conjugate, PCV20 00:00:00 [facility] dical (Prevnar 20) Branch [facility] 2022-05-04 Completed University of 00:00:00 [facility] Pneumococcal 20 2022-05-04 Completed Universit y of Conjugate, PCV20 00:00:00 [facility] dical (Prevnar 20) Branch [facility] 2022-05-04 Completed University of 00:00:00 [facility] Pneumococcal 20 2022-05-04 Completed Universit y of Conjugate, PCV20 00:00:00 [facility] dical (Prevnar 20) Branch [facility] 2022-05-04 Completed University of 00:00:00 [facility] Pneumococcal 20 2022-05-04 Completed Universit y of Conjugate, PCV20 00:00:00 [facility] dical (Prevnar 20) Branch [facility] 2022-05-04 Completed University of 00:00:00 [facility] Pneumococcal 20 2022-05-04 Completed Universit y of Conjugate, PCV20 00:00:00 [facility] dical (Prevnar 20) Branch [facility] 2022-05-04 Completed University of 00:00:00 [facility] Pneumococcal 20 2022-05-04 Completed Universit y of Conjugate, PCV20 00:00:00 [facility] dical (Prevnar 20) Branch [facility] 2022-05-04 Completed University of 00:00:00 [facility] Pneumococcal 20 2022-05-04 Completed Universit y of Conjugate, PCV20 00:00:00 [facility] dical (Prevnar 20) Branch [facility] 2022-05-04 Completed University of 00:00:00 [facility] Pneumococcal 20 2022-05-04 Completed Universit y of Conjugate, PCV20 00:00:00 [facility] dical (Prevnar 20) Branch [facility] 2022-05-04 Completed University of 00:00:00 [facility] Pneumococcal 20 2022-05-04 Completed Universit y of Conjugate, PCV20 00:00:00 [facility] dical (Prevnar 20) Branch [facility] 2022-05-04 Completed University of 00:00:00 [facility] Pneumococcal 20 2022-05-04 Completed Universit y of Conjugate, PCV20 00:00:00 [facility] dical (Prevnar 20) Branch [facility] 2022-05-04 Completed University of 00:00:00 [facility] Pneumococcal 20 2022-05-04 Completed Universit y of Conjugate, PCV20 00:00:00 [facility] dical (Prevnar 20) Branch [facility] 2022-05-04 Completed University of 00:00:00 [facility] Pneumococcal 20 2022-05-04 Completed Universit y of Conjugate, PCV20 00:00:00 [facility] dical (Prevnar 20) Branch [facility] 2022-05-04 Completed University of 00:00:00 [facility] Pneumococcal 20 2022-05-04 Completed Universit y of Conjugate, PCV20 00:00:00 [facility] dical (Prevnar 20) Branch [facility] 2022-05-04 Completed University of 00:00:00 [facility] Pneumococcal 20 2022-05-04 Completed Universit y of Conjugate, PCV20 00:00:00 [facility] dical (Prevnar 20) Branch [facility] 2022-05-04 Completed University of 00:00:00 [facility] Pneumococcal 20 2022-05-04 Completed Universit y of Conjugate, PCV20 00:00:00 [facility] dical (Prevnar 20) Branch [facility] 2022-05-04 Completed University of 00:00:00 [facility] Pneumococcal 20 2022-05-04 Completed Universit y of Conjugate, PCV20 00:00:00 [facility] dical (Prevnar 20) Branch [facility] 2022-05-04 Completed University of 00:00:00 [facility] Pneumococcal 20 2022-05-04 Completed Universit y of Conjugate, PCV20 00:00:00 [facility] dical (Prevnar 20) Branch [facility] 2022-05-04 Completed University of 00:00:00 [facility] Pneumococcal 20 2022-05-04 Completed Universit y of Conjugate, PCV20 00:00:00 [facility] dical (Prevnar 20) Branch [facility] 2022-05-04 Completed University of 00:00:00 [facility] Pneumococcal 20 2022-05-04 Completed Universit y of Conjugate, PCV20 00:00:00 [facility] dical (Prevnar 20) Branch [facility] 2022-05-04 Completed University of 00:00:00 [facility] Pneumococcal 20 2022-05-04 Completed Universit y of Conjugate, PCV20 00:00:00 [facility] dical (Prevnar 20) Branch [facility] 2022-05-04 Completed University of 00:00:00 [facility] Pneumococcal 20 2022-05-04 Completed Universit y of Conjugate, PCV20 00:00:00 [facility] dical (Prevnar 20) Branch [facility] 2022-05-04 Completed University of 00:00:00 [facility] Pneumococcal 20 2022-05-04 Completed Universit y of Conjugate, PCV20 00:00:00 [facility] dical (Prevnar 20) Branch [facility] 2022-05-04 Completed University of 00:00:00 [facility] Pneumococcal 20 2022-05-04 Completed Universit y of Conjugate, PCV20 00:00:00 [facility] dical (Prevnar 20) Branch [facility] 2022-05-04 Completed University of 00:00:00 [facility] Pneumococcal 20 2022-05-04 Completed Universit y of Conjugate, PCV20 00:00:00 [facility] dical (Prevnar 20) Branch [facility] 2022-05-04 Completed University of 00:00:00 [facility] Pneumococcal 20 2022-05-04 Completed Universit y of Conjugate, PCV20 00:00:00 [facility] dical (Prevnar 20) Branch [facility] 2022-05-04 Completed University of 00:00:00 [facility] Pneumococcal 20 2022-05-04 Completed Universit y of Conjugate, PCV20 00:00:00 [facility] dical (Prevnar 20) Branch [facility] 2022-05-04 Completed University of 00:00:00 [facility] Pneumococcal 20 2022-05-04 Completed Universit y of Conjugate, PCV20 00:00:00 [facility] dical (Prevnar 20) Branch [facility] 2022-05-04 Completed University of 00:00:00 [facility] Pneumococcal 20 2022-05-04 Completed Universit y of Conjugate, PCV20 00:00:00 [facility] dical (Prevnar 20) Branch [facility] 2022-05-04 Completed University of 00:00:00 [facility] Pneumococcal 20 2022-05-04 Completed Universit y of Conjugate, PCV20 00:00:00 [facility] dical (Prevnar 20) Branch [facility] 2022-05-04 Completed University of 00:00:00 [facility] Pneumococcal 20 2022-05-04 Completed Universit y of Conjugate, PCV20 00:00:00 [facility] dical (Prevnar 20) Branch [facility] 2022-05-04 Completed University of 00:00:00 [facility] Pneumococcal 20 2022-05-04 Completed Universit y of Conjugate, PCV20 00:00:00 [facility] dical (Prevnar 20) Branch [facility] 2022-05-04 Completed University of 00:00:00 [facility] Pneumococcal 20 2022-05-04 Completed Universit y of Conjugate, PCV20 00:00:00 [facility] dical (Prevnar 20) Branch [facility] 2022-05-04 Completed University of 00:00:00 [facility] Pneumococcal 20 2022-05-04 Completed Universit y of Conjugate, PCV20 00:00:00 [facility] dical (Prevnar 20) Branch [facility] 2022-05-04 Completed University of 00:00:00 [facility] Pneumococcal 20 2022-05-04 Completed Universit y of Conjugate, PCV20 00:00:00 [facility] dical (Prevnar 20) Branch [facility] 2022-05-04 Completed University of 00:00:00 [facility] Pneumococcal 20 2022-05-04 Completed Universit y of Conjugate, PCV20 00:00:00 [facility] dical (Prevnar 20) Branch [facility] 2022-05-04 Completed University of 00:00:00 [facility] Pneumococcal 20 2022-05-04 Completed Universit y of Conjugate, PCV20 00:00:00 [facility] dical (Prevnar 20) Branch [facility] 2022-05-04 Completed University of 00:00:00 [facility] Pneumococcal 20 2022-05-04 Completed Universit y of Conjugate, PCV20 00:00:00 [facility] dical (Prevnar 20) Branch [facility] 2022-05-04 Completed University of 00:00:00 [facility] Pneumococcal 20 2022-05-04 Completed Universit y of Conjugate, PCV20 00:00:00 [facility] dical (Prevnar 20) Branch [facility] 2022-05-04 Completed University of 00:00:00 [facility] Pneumococcal 20 2022-05-04 Completed Universit y of Conjugate, PCV20 00:00:00 [facility] dical (Prevnar 20) Branch [facility] 2022-05-04 Completed University of 00:00:00 [facility] Pneumococcal 20 2022-05-04 Completed Universit y of Conjugate, PCV20 00:00:00 [facility] dical (Prevnar 20) Branch [facility] 2022-05-04 Completed University of 00:00:00 [facility] Pneumococcal 20 2022-05-04 Completed Universit y of Conjugate, PCV20 00:00:00 [facility] dical (Prevnar 20) Branch [facility] 2022-05-04 Completed University of 00:00:00 [facility] Pneumococcal 20 2022-05-04 Completed Universit y of Conjugate, PCV20 00:00:00 [facility] dical (Prevnar 20) Branch [facility] 2022-05-04 Completed University of 00:00:00 [facility] Pneumococcal 20 2022-05-04 Completed Universit y of Conjugate, PCV20 00:00:00 [facility] dical (Prevnar 20) Branch [facility] 2022-05-04 Completed University of 00:00:00 [facility] Pneumococcal 20 2022-05-04 Completed [facility] Conjugate, PCV20 00:00:00 [facility]ical (Prevnar 20) Branch [facility] 2022-05-04 Completed University of 00:00:00 [facility] Pneumococcal 20 2022-05-04 Completed [facility]it y of Conjugate, PCV20 00:00:00 [facility]ical (Prevnar 20) Branch [facility] 2022-05-04 Completed University of 00:00:00 [facility] Pneumococcal 20 2022-05-04 Completed [facility]it [facility] of Conjugate, PCV20 00:00:00 [facility]ical (Prevnar 20) Branch [facility] 2022-05-04 Completed [facility] of 00:00:00 [facility] Pneumococcal 20 2022-05-04 Completed [facility]it [facility] of Conjugate, PCV20 00:00:00 [facility] dical (Prevnar 20) Branch [facility] 2022-05-04 Completed [facility] of 00:00:00 [facility] Pneumococcal 20 2022-05-04 Completed [facility]it [facility] of Conjugate, PCV20 00:00:00 [facility] dical (Prevnar 20) Branch [facility] 2022-05-04 Completed [facility] of 00:00:00 [facility] Pneumococcal 20 2022-05-04 Completed [facility] of Conjugate, PCV20 00:00:00 [facility] dical (Prevnar 20) Branch [facility] 2022-05-04 Completed [facility] of 00:00:00 [facility] Pneumococcal 20 2022-05-04 Completed [facility] of Conjugate, PCV20 00:00:00 [facility] dical (Prevnar 20) Branch [facility] 2022-05-04 Completed [facility] of 00:00:00 [facility] Pneumococcal 20 2022-05-04 Completed [facility] of Conjugate, PCV20 00:00:00 [facility] dical (Prevnar 20) Branch [facility] 2022-05-04 Completed [facility] of 00:00:00 [facility] Pneumococcal 20 2022-05-04 Completed [facility] of Conjugate, PCV20 00:00:00 [facility] dical (Prevnar 20) Branch [facility] 2022-05-04 Completed [facility] of 00:00:00 [facility] Pneumococcal 20 2022-05-04 Completed [facility] of Conjugate, PCV20 00:00:00 [facility] dical (Prevnar 20) Branch [facility] 2022-05-04 Completed [facility] of 00:00:00 [facility] Pneumococcal 20 2022-05-04 Completed [facility] of Conjugate, PCV20 00:00:00 [facility] dical (Prevnar 20) Branch [facility] 2022-05-04 Completed [facility] of 00:00:00 [facility] Pneumococcal 20 2022-05-04 Completed [facility] of Conjugate, PCV20 00:00:00 [facility] dical (Prevnar 20) Branch [facility] 2022-05-04 Completed [facility] of 00:00:00 [facility] Pneumococcal 20 2022-05-04 Completed [facility]it y of Conjugate, PCV20 00:00:00 [facility] dical (Prevnar 20) Branch [facility] 2022-05-04 Completed [facility] of 00:00:00 [facility] Pneumococcal 20 2022-05-04 Completed [facility]it y of Conjugate, PCV20 00:00:00 [facility] dical (Prevnar 20) Branch [facility] 2022-05-04 Completed [facility] of 00:00:00 [facility] Pneumococcal 20 2022-05-04 Completed [facility] of Conjugate, PCV20 00:00:00 [facility] dical (Prevnar 20) Branch [facility] 2022-05-04 Completed [facility] of 00:00:00 [facility] Pneumococcal 20 2022-05-04 Completed [facility] of Conjugate, PCV20 00:00:00 [facility] dical (Prevnar 20) Branch [facility] 2022-05-04 Completed [facility] of 00:00:00 [facility] Pneumococcal 20 2022-05-04 Completed [facility] of Conjugate, PCV20 00:00:00 [facility] dical (Prevnar 20) Branch [facility] 2022-05-04 Completed [facility] of 00:00:00 [facility] Pneumococcal 20 2022-05-04 Completed [facility]it y of Conjugate, PCV20 00:00:00 [facility] dical (Prevnar 20) Branch [facility] 2022-05-04 Completed [facility] of 00:00:00 [facility] Pneumococcal 20 2022-05-04 Completed [facility]it y of Conjugate, PCV20 00:00:00 [facility] dical (Prevnar 20) Branch [facility] 2022-05-04 Completed [facility] of 00:00:00 [facility] Pneumococcal 20 2022-05-04 Completed [facility] of Conjugate, PCV20 00:00:00 [facility] dical (Prevnar 20) Branch [facility] 2022-05-04 Completed [facility] of 00:00:00 [facility] Pneumococcal 20 2022-05-04 Completed [facility]it y of Conjugate, PCV20 00:00:00 [facility] dical (Prevnar 20) Branch [facility] 2022-05-04 Completed [facility] of 00:00:00 [facility] Pneumococcal 20 2022-05-04 Completed [facility]it y of Conjugate, PCV20 00:00:00 [facility] dical (Prevnar 20) Branch [facility] 2022-05-04 Completed [facility] of 00:00:00 [facility] Pneumococcal 20 2022-05-04 Completed [facility] y of Conjugate, PCV20 00:00:00 [facility] dical (Prevnar 20) Branch [facility] 2022-05-04 Completed [facility] of 00:00:00 [facility] Pneumococcal 20 2022-05-04 Completed [facility] y of Conjugate, PCV20 00:00:00 [facility] dical (Prevnar 20) Branch [facility] 2022-05-04 Completed [facility] of 00:00:00 [facility] Pneumococcal 20 2022-05-04 Completed [facility]it y of Conjugate, PCV20 00:00:00 [facility] dical (Prevnar 20) Branch TD 2022-05-04 Completed [facility] of 00:00:00 [facility] Pneumococcal 20 2022-05-04 Completed [facility] of Conjugate, PCV20 00:00:00 [facility] dical (Prevnar 20) Branch [facility] 2022-05-04 Completed [facility] of 00:00:00 [facility] Pneumococcal 20 2022-05-04 Completed [facility]it y of Conjugate, PCV20 00:00:00 [facility] dical (Prevnar 20) Branch [facility] 2022-05-04 Completed [facility] of 00:00:00 [facility] Pneumococcal 20 2022-05-04 Completed [facility]it y of Conjugate, PCV20 00:00:00 [facility] dical (Prevnar 20) Branch [facility] 2022-05-04 Completed [facility] of 00:00:00 [facility] Pneumococcal 20 2022-05-04 Completed [facility] of Conjugate, PCV20 00:00:00 [facility] dical (Prevnar 20) Branch [facility] 2022-05-04 Completed [facility] of 00:00:00 [facility] Pneumococcal 20 2022-05-04 Completed [facility] y of Conjugate, PCV20 00:00:00 [facility] dical (Prevnar 20) Branch [facility] 2022-05-04 Completed [facility] of 00:00:00 [facility] Pneumococcal 20 2022-05-04 Completed [facility]it y of Conjugate, PCV20 00:00:00 [facility] dical (Prevnar 20) Branch [facility] 2022-05-04 Completed [facility] of 00:00:00 [facility] Pneumococcal 20 2022-05-04 Completed [facility] y of Conjugate, PCV20 00:00:00 [facility] dical (Prevnar 20) Branch [facility] 2022-05-04 Completed [facility] of 00:00:00 [facility] Pneumococcal 20 2022-05-04 Completed [facility] y of Conjugate, PCV20 00:00:00 [facility] dical (Prevnar 20) Branch [facility] 2022-05-04 Completed [facility] of 00:00:00 [facility] Pneumococcal 20 2022-05-04 Completed [facility]it y of Conjugate, PCV20 00:00:00 [facility] dical (Prevnar 20) Branch [facility] 2022-05-04 Completed [facility] of 00:00:00 [facility] Pneumococcal 20 2022-05-04 Completed [facility]it y of Conjugate, PCV20 00:00:00 [facility] dical (Prevnar 20) Branch [facility] 2022-05-04 Completed [facility] of 00:00:00 [facility] Pneumococcal 20 2022-05-04 Completed [facility]it y of Conjugate, PCV20 00:00:00 [facility] dical (Prevnar 20) Branch [facility] 2022-05-04 Completed [facility] of 00:00:00 [facility] Pneumococcal 20 2022-05-04 Completed [facility]it y of Conjugate, PCV20 00:00:00 [facility] dical (Prevnar 20) Branch [facility] 2022-05-04 Completed [facility] of 00:00:00 [facility] Pneumococcal 20 2022-05-04 Completed [facility]it y of Conjugate, PCV20 00:00:00 [facility] dical (Prevnar 20) Branch [facility] 2022-05-04 Completed [facility] of 00:00:00 [facility] Pneumococcal 20 2022-05-04 Completed [facility]it y of Conjugate, PCV20 00:00:00 [facility] dical (Prevnar 20) Branch [facility] 2022-05-04 Completed [facility] of 00:00:00 [facility] Pneumococcal 20 2022-05-04 Completed [facility]it y of Conjugate, PCV20 00:00:00 [facility] dical (Prevnar 20) Branch [facility] 2022-05-04 Completed [facility] of 00:00:00 [facility] Pneumococcal 20 2022-05-04 Completed [facility]it y of Conjugate, PCV20 00:00:00 [facility] dical (Prevnar 20) Branch [facility] 2022-05-04 Completed [facility] of 00:00:00 [facility] Pneumococcal 20 2022-05-04 Completed [facility]it y of Conjugate, PCV20 00:00:00 [facility] dical (Prevnar 20) Branch [facility] 2022-05-04 Completed [facility] of 00:00:00 [facility] Pneumococcal 20 2022-05-04 Completed [facility]it y of Conjugate, PCV20 00:00:00 [facility] dical (Prevnar 20) Branch [facility] 2022-05-04 Completed [facility] of 00:00:00 [facility] Pneumococcal 20 2022-05-04 Completed [facility]it y of Conjugate, PCV20 00:00:00 [facility] dical (Prevnar 20) Branch [facility] 2022-05-04 Completed [facility] of 00:00:00 [facility] Pneumococcal 20 2022-05-04 Completed [facility]it y of Conjugate, PCV20 00:00:00 [facility] dical (Prevnar 20) Branch [facility] 2022-05-04 Completed [facility] of 00:00:00 [facility] Pneumococcal 20 2022-05-04 Completed [facility] y of Conjugate, PCV20 00:00:00 [facility] dical (Prevnar 20) Branch [facility] 2022-05-04 Completed [facility] of 00:00:00 [facility] Pneumococcal 20 2022-05-04 Completed [facility]it y of Conjugate, PCV20 00:00:00 [facility] dical (Prevnar 20) Branch [facility] 2022-05-04 Completed [facility] of 00:00:00 [facility] Pneumococcal 20 2022-05-04 Completed [facility]it y of Conjugate, PCV20 00:00:00 [facility] dical (Prevnar 20) Branch [facility] 2022-05-04 Completed [facility] of 00:00:00 [facility] Pneumococcal 20 2022-05-04 Completed [facility] y of Conjugate, PCV20 00:00:00 [facility] dical (Prevnar 20) Branch [facility] 2022-05-04 Completed [facility] of 00:00:00 [facility] Pneumococcal 20 2022-05-04 Completed [facility]it y of Conjugate, PCV20 00:00:00 [facility] dical (Prevnar 20) Branch [facility] 2022-05-04 Completed [facility] of 00:00:00 [facility] Pneumococcal 20 2022-05-04 Completed [facility]it y of Conjugate, PCV20 00:00:00 [facility] dical (Prevnar 20) Branch [facility] 2022-05-04 Completed [facility] of 00:00:00 [facility] Pneumococcal 20 2022-05-04 Completed [facility]it y of Conjugate, PCV20 00:00:00 [facility] dical (Prevnar 20) Branch [facility] 2022-05-04 Completed [facility] of 00:00:00 [facility] Pneumococcal 20 2022-05-04 Completed [facility] y of Conjugate, PCV20 00:00:00 [facility] dical (Prevnar 20) Branch [facility] 2022-05-04 Completed [facility] of 00:00:00 [facility] Pneumococcal 20 2022-05-04 Completed [facility]it y of Conjugate, PCV20 00:00:00 [facility] dical (Prevnar 20) Branch [facility] 2022-05-04 Completed [facility] of 00:00:00 [facility] Pneumococcal 20 2022-05-04 Completed [facility] y of Conjugate, PCV20 00:00:00 [facility] dical (Prevnar 20) Branch [facility] 2022-05-04 Completed [facility] of 00:00:00 [facility] Pneumococcal 20 2022-05-04 Completed [facility] y of Conjugate, PCV20 00:00:00 [facility] dical (Prevnar 20) Branch [facility] 2022-05-04 Completed [facility] of 00:00:00 [facility] Pneumococcal 20 2022-05-04 Completed [facility] y of Conjugate, PCV20 00:00:00 [facility] dical (Prevnar 20) Branch [facility] 2022-05-04 Completed [facility] of 00:00:00 [facility] Pneumococcal 20 2022-05-04 Completed [facility]it y of Conjugate, PCV20 00:00:00 [facility] dical (Prevnar 20) Branch [facility] 2022-05-04 Completed [facility] of 00:00:00 [facility] Pneumococcal 20 2022-05-04 Completed [facility] y of Conjugate, PCV20 00:00:00 [facility] dical (Prevnar 20) Branch [facility] 2022-05-04 Completed [facility] of 00:00:00 [facility] Pneumococcal 20 2022-05-04 Completed [facility] y of Conjugate, PCV20 00:00:00 [facility] dical (Prevnar 20) Branch [facility] 2022-05-04 Completed [facility] of 00:00:00 [facility] Pneumococcal 20 2022-05-04 Completed [facility]it y of Conjugate, PCV20 00:00:00 [facility] dical (Prevnar 20) Branch [facility] 2022-05-04 Completed [facility] of 00:00:00 [facility] Pneumococcal 20 2022-05-04 Completed [facility]it y of Conjugate, PCV20 00:00:00 [facility] dical (Prevnar 20) Branch Td 2021-12-19 Completed [facility] of 00:00:00 [facility] Td 2021-12-19 Completed [facility] of 00:00:00 [facility] Td 2021-12-19 Completed [facility] of 00:00:00 [facility] Td 2021-12-19 Completed [facility] of 00:00:00 [facility] Td 2021-12-19 Completed [facility] of 00:00:00 [facility] Td 2021-12-19 Completed [facility] of 00:00:00 [facility] Td 2021-12-19 Completed [facility] of 00:00:00 [place] [...] TD, NOS 2021-12-19 Completed University of 00:00:00 [facility] TD, NOS 2021-12-19 Completed [facility] of 00:00:00 [facility] TD, NOS 2021-12-19 Completed [facility] of 00:00:00 [facility] TD, NOS 2021-12-19 Completed [facility] of 00:00:00 [facility] Pneumococcal 2021-04-24 Completed University o f Polysaccharide, [...] [place] [facility] 65+ (FLUAD) Pneumococcal 2021-04-24 Completed [facility] o f Polysaccharide, 00:00:00 [place] [facility] PPSV23 (PNEUMOVAX) Branch Influenza Virus 2021-04-24 Completed [facility]it y of Vaccine,quad 00:00:00 [place] [facility] 65+ (FLUAD) Pneumococcal 2021-04-24 Completed University o f Polysaccharide, 00:00:00 [place] [facility] PPSV23 (PNEUMOVAX) Branch Influenza Virus 2021-04-24 Completed [facility] y of Vaccine,quad 00:00:00 [place] [facility] 65+ (FLUAD) Pneumococcal Unknown Completed [facility] o f Polysaccharide, [place] [facility] PPSV23 (PNEUMOVAX) Branch Influenza Virus Unknown Completed [facility] Vaccine,quad [place] [facility] 65+ (FLUAD) TD, NOS Unknown Completed [facility] TDAP Unknown Completed [facility] Pneumococcal 20 Unknown Completed [facility] of Conjugate, PCV20 [place] [facility] (Prevnar 20) Branch Pneumococcal Unknown Completed [facility] o f Polysaccharide, [place] [facility] PPSV23 (PNEUMOVAX) Branch Influenza Virus Unknown Completed [facility] Vaccine,quad [place] [facility] 65+ (FLUAD) TD, NOS Unknown Completed [facility] TDAP Unknown Completed [facility] Pneumococcal 20 Unknown Completed [facility] of Conjugate, PCV20 [place] [facility] (Prevnar 20) Branch Pneumococcal Unknown Completed [facility] o f Polysaccharide, [place] [facility] PPSV23 (PNEUMOVAX) Branch Influenza Virus Unknown Completed [facility] Vaccine,quad [place] [facility] 65+ (FLUAD) TD, NOS Unknown Completed [facility] TDAP Unknown Completed [facility] Pneumococcal 20 Unknown Completed [facility] of Conjugate, PCV20 [place] [facility] (Prevnar 20) Branch Pneumococcal Unknown Completed [facility] o f Polysaccharide, [place] [facility] PPSV23 (PNEUMOVAX) Branch Influenza Virus Unknown Completed [facility] Vaccine,quad [place] [facility] 65+ (FLUAD) TD, NOS Unknown Completed [facility] TDAP Unknown Completed [facility] Pneumococcal 20 Unknown Completed [facility] of Conjugate, PCV20 [place] [facility] (Prevnar 20) Branch Pneumococcal Unknown Completed [facility] o f Polysaccharide, [place] [facility] PPSV23 (PNEUMOVAX) Branch Influenza Virus Unknown Completed [facility] Vaccine,quad [place] [facility] 65+ (FLUAD) TD, NOS Unknown Completed [facility] TDAP Unknown Completed [facility] Pneumococcal 20 Unknown Completed [facility]it y of Conjugate, PCV20 [facility] dical (Prevnar 20) Branch Pneumococcal Unknown Completed University o f Polysaccharide, [place] [facility] PPSV23 (PNEUMOVAX) Branch Influenza Virus Unknown Completed [facility] Vaccine,quad [place] [facility] 65+ (FLUAD) TD, NOS Unknown Completed [facility] TDAP Unknown Completed [facility] Pneumococcal 20 Unknown Completed [facility]it y of Conjugate, PCV20 [facility] dical (Prevnar 20) Branch Pneumococcal Unknown Completed [facility] o f Polysaccharide, [place] [facility] PPSV23 (PNEUMOVAX) Branch Influenza Virus Unknown Completed [facility] Vaccine,quad [place] [facility] 65+ (FLUAD) TD, NOS Unknown Completed [facility] TDAP Unknown Completed [facility] Pneumococcal 20 Unknown Completed [facility] of Conjugate, PCV20 [place] [facility] (Prevnar 20) Branch Pneumococcal Unknown Completed [facility] o f Polysaccharide, [place] [facility] PPSV23 (PNEUMOVAX) Branch Influenza Virus Unknown Completed [facility] Vaccine,quad [place] [facility] 65+ (FLUAD) TD, NOS Unknown Completed [facility] TDAP Unknown Completed [facility] Pneumococcal 20 Unknown Completed [facility] of Conjugate, PCV20 [place] [facility] (Prevnar 20) Branch Pneumococcal Unknown Completed [facility] o f Polysaccharide, [place] [facility] PPSV23 (PNEUMOVAX) Branch Influenza Virus Unknown Completed [facility] Vaccine,quad [place] [facility] 65+ (FLUAD) TD, NOS Unknown Completed [facility] TDAP Unknown Completed [facility] Pneumococcal 20 Unknown Completed [facility] of Conjugate, PCV20 [place] [facility] (Prevnar 20) Branch Pneumococcal Unknown Completed [facility] o f Polysaccharide, [place] [facility] PPSV23 (PNEUMOVAX) Branch Influenza Virus Unknown Completed [facility] Vaccine,quad [place] [facility] 65+ (FLUAD) TD, NOS Unknown Completed [facility] TDAP Unknown Completed [facility] Pneumococcal 20 Unknown Completed [facility] of Conjugate, PCV20 [place] [facility] (Prevnar 20) Branch Pneumococcal Unknown Completed [facility] o f Polysaccharide, [place] [facility] PPSV23 (PNEUMOVAX) Branch Influenza Virus Unknown Completed [facility] Vaccine,quad [place] [facility] 65+ (FLUAD) TD, NOS Unknown Completed [facility] TDAP Unknown Completed [facility] Pneumococcal 20 Unknown Completed [facility] of Conjugate, PCV20 [place] [facility] (Prevnar 20) Branch Pneumococcal Unknown Completed [facility] o f Polysaccharide, [place] [facility] PPSV23 (PNEUMOVAX) Branch Influenza Virus Unknown Completed [facility] Vaccine,quad [place] [facility] 65+ (FLUAD) TD, NOS Unknown Completed [facility] TDAP Unknown Completed [facility] Pneumococcal 20 Unknown Completed [facility] of Conjugate, PCV20 [place] [facility] (Prevnar 20) Branch Pneumococcal Unknown Completed [facility] o f Polysaccharide, [place] [facility] PPSV23 (PNEUMOVAX) Branch Influenza Virus Unknown Completed [facility] Vaccine,quad [place] [facility] 65+ (FLUAD) TD, NOS Unknown Completed [facility] TDAP Unknown Completed [facility] Pneumococcal 20 Unknown Completed [facility] of Conjugate, PCV20 [place] [facility] (Prevnar 20) Branch Pneumococcal Unknown Completed [facility] o f Polysaccharide, [place] [facility] PPSV23 (PNEUMOVAX) Branch Influenza Virus Unknown Completed [facility] Vaccine,quad [place] [facility] 65+ (FLUAD) TD, NOS Unknown Completed [facility] Pneumococcal Unknown Completed [facility] o f Polysaccharide, [place] [facility] PPSV23 (PNEUMOVAX) Branch Influenza Virus Unknown Completed [facility] Vaccine,quad [place] [facility] 65+ (FLUAD) Pneumococcal Unknown Completed [facility] o f Polysaccharide, [place] [facility] PPSV23 (PNEUMOVAX) Branch Influenza Virus Unknown Completed [facility] Vaccine,quad [place] [facility] 65+ (FLUAD) Pneumococcal Unknown Completed [facility] o f Polysaccharide, [place] [facility] PPSV23 (PNEUMOVAX) Branch Influenza Virus Unknown Completed [facility] Vaccine,quad [place] [facility] 65+ (FLUAD) TD, NOS Unknown Completed [facility] TDAP Unknown Completed [facility] Pneumococcal 20 Unknown Completed [facility]it y of Conjugate, PCV20 [facility] dical (Prevnar 20) [place] Vital Signs Vital Name Observation Time Observation Value Comments Source Systolic blood 2022-11-12 15:00:00 146 mm[Hg] [facility] Diastolic blood 2022-11-12 15:00:00 68 mm[Hg] [facility] [place] Heart rate 2022-11-12 14:59:00 58 /min [facility] Respiratory rate 2022-11-12 14:59:00 18 /min [facility] Body height 2022-11-12 14:59:00 182.9 cm [facility] Body weight 2022-11-12 14:59:00 97.977 kg [facility] BMI 2022-11-12 14:59:00 29.29 kg/m2 [facility] Oxygen saturation in 2022-11-12 14:59:00 97 /min [facility] Arterial blood by [facility] Pulse oximetry Branch Systolic blood 2022-11-12 14:30:00 155 mm[Hg] Univer [facility] Diastolic blood 2022-11-12 14:30:00 69 mm[Hg] Unive rsity of [facility] Heart rate 2022-11-12 14:30:00 61 /min [facility] Body temperature 2022-11-12 14:30:00 37.06 Yumiko [facility] Respiratory rate 2022-11-12 14:30:00 20 /min [facility] Body height 2022-11-12 14:30:00 182.9 cm [facility] Body weight 2022-11-12 14:30:00 102.513 kg [facility] BMI 2022-11-12 14:30:00 30.65 kg/m2 [facility] Oxygen saturation in 2022-11-12 14:30:00 99 /min University of Arterial blood by [facility]ennifer Pulse oximetry Branch Systolic blood 2022-10-07 15:11:00 181 mm[Hg] Univer sity of pressure [facility] Diastolic blood 2022-10-07 15:11:00 89 mm[Hg] Unive rsity of pressure [facility] Heart rate 2022-10-07 15:10:00 65 /min [facility] Respiratory rate 2022-10-07 15:10:00 18 /min [facility] Body height 2022-10-07 15:10:00 182.9 cm [facility] Body weight 2022-10-07 15:10:00 97.977 kg [facility] BMI 2022-10-07 15:10:00 29.29 kg/m2 [facility] Oxygen saturation in 2022-10-07 15:10:00 96 /min [facility] of Arterial blood by [facility] jennifer Pulse oximetry Branch Systolic blood 2022-09-25 19:06:00 114 mm[Hg] Univer sity of [facility] Diastolic blood 2022-09-25 19:06:00 54 mm[Hg] Unive rsity of pressure [facility] Heart rate 2022-09-25 19:06:00 59 /min [facility] Body temperature 2022-09-25 19:06:00 36.67 Yumiko [facility] Respiratory rate 2022-09-25 19:06:00 19 /min [facility] Body weight 2022-09-25 19:06:00 98.884 kg [facility] BMI 2022-09-25 19:06:00 30.40 kg/m2 [facility] Oxygen saturation in 2022-09-25 19:06:00 94 /min [facility] Arterial blood by [facility] Pulse oximetry Branch Systolic blood 2022-09-01 15:42:00 175 mm[Hg] Univer sity of [facility] Diastolic blood 2022-09-01 15:42:00 82 mm[Hg] Unive rsity of [facility] Heart rate 2022-09-01 15:36:00 59 /min [facility] Oxygen saturation in 2022-09-01 15:36:00 91 /min [facility] Arterial blood by [facility] Pulse oximetry Branch Systolic blood 2022-08-14 14:18:00 138 mm[Hg] Univer sity of pressure [facility] Diastolic blood 2022-08-14 14:18:00 64 mm[Hg] Unive rsity of [facility] Heart rate 2022-08-14 14:10:00 57 /min [facility] Respiratory rate 2022-08-14 14:10:00 18 /min [facility] Body height 2022-08-14 14:10:00 180.3 cm [facility] Body weight 2022-08-14 14:10:00 102.059 kg [facility] BMI 2022-08-14 14:10:00 31.38 kg/m2 [facility] Systolic blood 2022-08-05 19:03:00 135 mm[Hg] Univer sity of [facility] Diastolic blood 2022-08-05 19:03:00 69 mm[Hg] Unive rsity [facility] Heart rate 2022-08-05 19:03:00 57 /min [facility] Body temperature 2022-08-05 19:03:00 36.11 Yumiko [facility] Body weight 2022-08-05 19:03:00 101.152 kg per pt [facility] BMI 2022-08-05 19:03:00 30.24 kg/m2 [facility] Oxygen saturation in 2022-08-05 19:03:00 95 /min [facility] Arterial blood by [facility] Pulse oximetry Branch Body height 2022-07-14 13:28:00 182.9 cm [facility] Body weight 2022-07-14 13:28:00 102.059 kg [facility] BMI 2022-07-14 13:28:00 30.52 kg/m2 [facility] Systolic blood 2022-07-07 15:17:00 138 mm[Hg] Univer [facility]ity [facility] Diastolic blood 2022-07-07 15:17:00 72 mm[Hg] Unive rsity of pressure [facility] Heart rate 2022-07-07 15:16:00 60 /min [facility] Body height 2022-07-07 15:16:00 182.9 cm [facility] Body weight 2022-07-07 15:16:00 102.059 kg [facility] BMI 2022-07-07 15:16:00 30.52 kg/m2 [facility] Oxygen saturation in 2022-07-07 15:16:00 96 /min [facility] Arterial blood by [facility] Pulse oximetry Branch Systolic blood 2022-07-03 20:41:00 138 mm[Hg] Univer [facility]ity [facility] Diastolic blood 2022-07-03 20:41:00 55 mm[Hg] Unive rsity of pressure [facility] Heart rate 2022-07-03 20:41:00 57 /min [facility] Body height 2022-07-03 20:41:00 182.9 cm [facility] Body weight 2022-07-03 20:41:00 100.699 kg [facility] BMI 2022-07-03 20:41:00 30.11 kg/m2 [facility] Oxygen saturation in 2022-07-03 20:41:00 95 /min [facility] Arterial blood by [facility] Pulse oximetry Branch Systolic blood 2022-06-19 18:14:00 137 mm[Hg] Univer [facility]ity [facility] Diastolic blood 2022-06-19 18:14:00 69 mm[Hg] Unive rsity of [facility] Heart rate 2022-06-19 18:14:00 58 /min [facility] Respiratory rate 2022-06-19 18:14:00 23 /min [facility] Body height 2022-06-19 18:14:00 177.8 cm [facility] Body weight 2022-06-19 18:14:00 102.059 kg [facility] BMI 2022-06-19 18:14:00 32.28 kg/m2 Universi ty of [facility] Oxygen saturation in 2022-06-19 18:14:00 96 /min [facility] Arterial blood by [facility] Pulse oximetry Branch Systolic blood 2022-06-12 14:26:00 159 mm[Hg] Univer sity of [facility] Diastolic blood 2022-06-12 14:26:00 75 mm[Hg] Unive rsity of [facility] Heart rate 2022-06-12 14:25:00 69 /min [facility] Body height 2022-06-12 14:25:00 182.9 cm [facility] Body weight 2022-06-12 14:25:00 102.105 kg [facility] BMI 2022-06-12 14:25:00 30.53 kg/m2 [facility] Systolic blood 2022-06-11 13:26:00 164 mm[Hg] Univer [facility] Diastolic blood 2022-06-11 13:26:00 73 mm[Hg] Unive [facility]ity [facility] Heart rate 2022-06-11 13:25:00 66 /min [facility] Body temperature 2022-06-11 13:25:00 36.56 Yumiko [facility] Body height 2022-06-11 13:25:00 182.9 cm [facility] Body weight 2022-06-11 13:25:00 101.152 kg [facility] BMI 2022-06-11 13:25:00 30.24 kg/m2 [facility] Oxygen saturation in 2022-06-11 13:25:00 97 /min [facility] Arterial blood by [facility] Pulse oximetry Branch Systolic blood 2022-06-10 14:16:00 150 mm[Hg] Univer [facility]ity [facility] Diastolic blood 2022-06-10 14:16:00 69 mm[Hg] Unive rsity [facility] Heart rate 2022-06-10 14:16:00 59 /min [facility] Body temperature 2022-06-10 14:16:00 36.61 Yumiko [facility] Respiratory rate 2022-06-10 14:16:00 18 /min [facility] Body height 2022-06-10 14:16:00 182.9 cm [facility] Body weight 2022-06-10 14:16:00 101.152 kg [facility] BMI 2022-06-10 14:16:00 30.24 kg/m2 [facility] Systolic blood 2022-06-05 14:07:00 197 mm[Hg] Univer sity of [facility] Diastolic blood 2022-06-05 14:07:00 90 mm[Hg] Unive rsity of [facility] Heart rate 2022-06-05 14:07:00 60 /min [facility] Respiratory rate 2022-06-05 14:07:00 20 /min [facility] Oxygen saturation in 2022-06-05 14:07:00 99 /min [facility] Arterial blood by [facility] Pulse oximetry Branch Body temperature 2022-06-05 13:56:00 36.67 Yumiko [facility] Body height 2022-06-05 13:56:00 182.9 cm [facility] Body weight 2022-06-05 13:56:00 100.699 kg [facility] BMI 2022-06-05 13:56:00 30.11 kg/m2 [facility] Systolic blood 2022-05-13 20:14:00 160 mm[Hg] Univer sity of [facility] Diastolic blood 2022-05-13 20:14:00 81 mm[Hg] Unive rsity of pressure [facility] Heart rate 2022-05-13 20:08:00 62 /min [facility] Body weight 2022-05-13 20:08:00 100.699 kg [facility] BMI 2022-05-13 20:08:00 30.11 kg/m2 [facility] Oxygen saturation in 2022-05-13 20:08:00 95 /min [facility] Arterial blood by [facility] Pulse oximetry Branch Systolic blood 2022-05-12 18:39:00 172 mm[Hg] Univer sity of [facility] Diastolic blood 2022-05-12 18:39:00 84 mm[Hg] Unive rsity of [facility] Heart rate 2022-05-12 18:38:00 64 /min [facility] Body height 2022-05-12 18:38:00 182.9 cm [facility] Body weight 2022-05-12 18:38:00 102.967 kg [facility] BMI 2022-05-12 18:38:00 30.79 kg/m2 [facility] Systolic blood 2022-05-04 19:46:00 176 mm[Hg] Univer sity of [facility] Diastolic blood 2022-05-04 19:46:00 72 mm[Hg] Unive rsity of [facility] Heart rate 2022-05-04 19:46:00 65 /min [facility] Body height 2022-05-04 19:45:00 182.9 cm [facility] Body weight 2022-05-04 19:45:00 103.057 kg [facility] BMI 2022-05-04 19:45:00 30.81 kg/m2 [facility] Oxygen saturation in 2022-05-04 19:45:00 97 /min [facility] Arterial blood by [facility] Pulse oximetry Branch Systolic blood 2022-05-01 16:12:00 136 mm[Hg] Univer sity of [facility] Diastolic blood 2022-05-01 16:12:00 68 mm[Hg] Unive rsity of [facility] Heart rate 2022-05-01 16:12:00 62 /min [facility] Body temperature 2022-05-01 16:12:00 36.56 Yumiko [facility] Respiratory rate 2022-05-01 16:12:00 16 /min [facility] Body weight 2022-05-01 16:12:00 100.699 kg [facility] BMI 2022-05-01 16:12:00 30.11 kg/m2 [facility] Oxygen saturation in 2022-05-01 16:12:00 98 /min [facility] Arterial blood by [facility] jennifer Pulse oximetry Branch Systolic blood 2022-04-01 20:41:00 138 mm[Hg] Univer sity of [facility] Diastolic blood 2022-04-01 20:41:00 73 mm[Hg] Unive rsity of [facility] Heart rate 2022-04-01 20:41:00 64 /min [facility] Body weight 2022-04-01 20:41:00 102.694 kg [facility] BMI 2022-04-01 20:41:00 30.71 kg/m2 [facility] Oxygen saturation in 2022-04-01 20:41:00 98 /min [facility] Arterial blood by [facility] jennifer Pulse oximetry Branch Systolic blood 2022-02-17 16:13:00 152 mm[Hg] Univer sity of [facility] Diastolic blood 2022-02-17 16:13:00 81 mm[Hg] Unive rsity of [facility] Heart rate 2022-02-17 14:50:00 59 /min [facility] Body temperature 2022-02-17 14:50:00 36.94 Yumiko [facility] Body height 2022-02-17 14:50:00 182.9 cm [facility] Body weight 2022-02-17 14:50:00 100.699 kg [facility] BMI 2022-02-17 14:50:00 30.11 kg/m2 [facility] Oxygen saturation in 2022-02-17 14:50:00 95 /min [facility] Arterial blood by [facility] Pulse oximetry Branch Systolic blood 2022-01-05 16:06:00 144 mm[Hg] Univer [facility]ity of [facility] Diastolic blood 2022-01-05 16:06:00 69 mm[Hg] Unive rsity of [facility] Heart rate 2022-01-05 16:06:00 64 /min [facility] Body height 2022-01-05 16:06:00 182.9 cm [facility] Body weight 2022-01-05 16:06:00 106.142 kg [facility] BMI 2022-01-05 16:06:00 31.74 kg/m2 [facility] Oxygen saturation in 2022-01-05 16:06:00 97 /min [facility] Arterial blood by [facility] Pulse oximetry Branch Systolic blood 2021-12-21 13:20:00 127 mm[Hg] Univer [facility]ity of [facility] Diastolic blood 2021-12-21 13:20:00 69 mm[Hg] Unive rsity of [facility] Heart rate 2021-12-21 13:20:00 68 /min [facility] Body temperature 2021-12-21 13:20:00 35.83 Yumiko [facility] Respiratory rate 2021-12-21 13:20:00 18 /min [facility] Oxygen saturation in 2021-12-21 13:20:00 96 /min [facility] Arterial blood by [facility] Pulse oximetry Branch Body weight 2021-12-21 09:04:00 101.969 kg [facility] BMI 2021-12-21 09:04:00 30.49 kg/m2 [facility] Body height 2021-12-19 18:50:00 182.9 cm [facility] Systolic blood 2021-12-10 17:00:00 120 mm[Hg] Univer [facility]ity of [facility] Diastolic blood 2021-12-10 17:00:00 67 mm[Hg] Unive rsity of [facility] Heart rate 2021-12-10 17:00:00 78 /min [facility] Respiratory rate 2021-12-10 17:00:00 18 /min [facility] height 2021-12-10 17:00:00 182.9 cm Universi ty [facility] Body weight 2021-12-10 17:00:00 96.253 kg Universi [facility] BMI 2021-12-10 17:00:00 28.78 kg/m2 [facility] Oxygen saturation in 2021-12-10 17:00:00 95 /min [facility] Arterial blood by [facility] Pulse oximetry Branch Systolic blood 2021-06-26 18:16:00 122 mm[Hg] [facility] Diastolic blood 2021-06-26 18:16:00 75 mm[facility]Hg] [facility] 2021-06-26 18:16:00 68 /min Universi [facility] Body height 2021-06-26 18:16:00 182.9 cm [facility] Body weight 2021-06-26 18:16:00 101.152 kg stated Universi [facility] BMI 2021-06-26 18:16:00 30.24 kg/m2 Universi [facility] Oxygen saturation in 2021-06-26 18:16:00 96 /min [place] [facility] Arterial blood by [facility] Pulse oximetry Branch Procedures Procedure Date / Time Performing Clinician Source Performed GLYCOSYLATED HEMOGLOBIN 2022-09-01 16:51:00 Nivia Eng [facility] (A1C) [facility] EXTERNAL PROVIDER RECORDS 2022-08-28 05:01:00 Doctor Unassigned, [facility] Name [facility] HOME HEALTH [id number] 2022-06-26 05:01:00 Doctor Unassigned, [facility] Name [facility] HOME HEALTH 485 2022-06-15 05:01:00 Doctor Antonioigned, [facility] Name [facility] MICROALBUMIN URINE 2022-06-11 19:00:00 Cyrus Pablo [facility] URINALYSIS 2022-06-11 19:00:00 [facility] BASIC METABOLIC PANEL 2022-06-11 14:04[facility]00 [facility], CL, CO2, GLUCOSE, Medica l Branch BUN, CREATININE, CA) HOME HEALTH - OTHER 2022-06-11 05:01:00 Doctor Unassigned, [facility] [place] [facility] XR CHEST 2 VW 2022-06-05 16:12:02 [facility] CBC WITH DIFF 2022-06-05 15:23:00 [facility] FREE T4 2022-06-05 15:23:00 [facility] THYROID STIMULATING 2022-06-05 15:23:00 [facility] COMP. METABOLIC PANEL 2022-06-05 15:23:00 [facility] ([id number]) [facility] LIPID PANEL ([id number])(TOTAL 2022-06-05 15:23:00 Cyrus Pablo [facility] CHOLESTEROL, [facility] TRIGLYCERIDES, HDL) N-TERMINAL PRO-BNP 2022-06-05 15:23:00 [facility] TDAP VACCINE, >11 YRS, IM 2022-05-04 20:34:16 Philip Dawson [facility] PNEUMOCOCCAL 20 CONJUGATE 2022-05-04 20:34:16 Philip Dawson [facility] (PREVNAR 20) VACCINE Medical [facility] XR ELBOW >3 VW RIGHT 2022-05-01 17:54:00 EbLandon silva [facility] XR HUMERUS 2 VW RIGHT 2022-05-01 17:54:00 [facility] XR FOREARM 2 VW RIGHT 2022-05-01 17:54:00 Ebshira [facility] XR SHOULDER 2+ VW RIGHT 2022-05-01 17:54:00 EbrahiLandon terrell [facility] XR HUMERUS 2 VW RIGHT 2022-05-01 17:54:00 Ebshira [facility] XR FOREARM 2 VW RIGHT 2022-05-01 17:54:00 Landon Cervantes [facility] XR ELBOW >3 VW RIGHT 2022-05-01 17:54:00 Landon Cervantes [facility] PATIENT FINANCIAL 2022-05-01 16:02:10 Doctor Unassigned, Un [facility] POLICY [facility] [facility] POCT HEMOGLOBIN A1C TEST 2022-04-01 20:56:00 Chandan Sheehan [facility] PATIENT QUESTIONNAIRE 2022-03-28 06:01:00 Doctor Unassigned, [facility] POCT URINALYSIS 2022-02-17 16:11:00 Kaci Marcy [facility] ASSIGNMENT OF BENEFITS 2022-01-05 15:58:59 Doctor Unassigned, [facility] [facility] [place] CONSENT/REFUSAL FOR 2022-01-05 15:57:56 Doctor Unassigned, [facility] DIAGNOSIS AND TREATMENT [place] [facility] POCT GLUCOSE (AUTOMATED) 2021-12-21 17:29:[address] [facility] POCT GLUCOSE (AUTOMATED) 2021-12-21 13:22:[address] Uni [facility] BASIC METABOLIC PANEL 2021-12-21 09:46:00 [facility] [place] (NA, K, CL, CO2, GLUCOSE, Medica l Branch BUN, CREATININE, CA) CBC WITH DIFF 2021-12-21 09:46:00 [facility]SE (AUTOMATED) 2021-12-21 00:56:[address] [facility] POCT GLUCOSE (AUTOMATED) 2021-12-20 21:23:00 Morales Mckeon Uni versity [facility] POCT GLUCOSE (AUTOMATED) 2021-12-20 16:24:00 Morales Mckeon Uni versity [facility] POCT GLUCOSE (AUTOMATED) 2021-12-20 12:38:00 Morales Mckeon Uni versity [facility] BASIC METABOLIC PANEL 2021-12-20 09:12:00 [facility] (NA, K, CL, CO2, GLUCOSE, Medica l Branch BUN, CREATININE, CA) CBC WITH DIFF 2021-12-20 09:12:00 Padma Sullivan [facility] POCT GLUCOSE (AUTOMATED) 2021-12-20 01:16:00 Reese Hanson [facility] POCT GLUCOSE (AUTOMATED) 2021-12-19 21:36:00 Reese Hanson [facility] MT RESUP NPTERF WND BODY 2021-12-19 18:22:00 Anuj Barroso [facility] 2.6-7.5 CM [facility] BLOOD CULTURE SCREEN 2021-12-19 18:09:00 Anuj Barroso [facility] BLOOD CULTURE SCREEN 2021-12-19 18:08:00 Anuj Barroso [facility] LACTIC ACID WHOLE BLOOD 2021-12-19 18:08:00 Anuj Barroso [facility] URINALYSIS 2021-12-19 16:16:00 Anuj Barroso [place] [facility] URINE DRUG (IMMUNOASSAY) 2021-12-19 16:16:00 Anuj Barroso [facility] DRUG [facility] SCREEN W/O REFLEX XR HAND 3+ VW RIGHT 2021-12-19 15:56:29 Anuj Barroso [facility] XR SHOULDER 2+ VW RIGHT 2021-12-19 15:56:29 Anuj Barroso [facility] CT CERVICAL SPINE WO 2021-12-19 15:42:28 Anuj Barroso [facility] CONTRAST [facility] CT HEAD WO CONTRAST 2021-12-19 15:42:28 Anuj Barroso [facility] TROPONIN I 2021-12-19 14:59:00 Anuj Barroso [facility] COMP. METABOLIC PANEL 2021-12-19 14:59:00 Anuj Barroso [facility] ([id number]) [facility] LIPID PANEL ([id number])(TOTAL 2021-12-19 14:59:00 Padma Sullivan [facility] CHOLESTEROL, [facility] TRIGLYCERIDES, HDL) ETHANOL 2021-12-19 14:59:00 Anuj Barroso [facility] CBC WITH DIFF 2021-12-19 14:59:00 Anuj Barroso [place] [facility] GLYCOSYLATED HEMOGLOBIN 2021-12-19 14:59:00 Padma Sullivan [facility] (A1C) [facility] PROTHROMBIN TIME / INR 2021-12-19 14:59:00 Anuj Barroso [facility] ACTIV[facility] PARTIAL 2021-12-19 14:59:00 Anuj Barroso [facility] THRMPLAS [facility] N-TERMINAL PRO-BNP 2021-12-19 14:59:00 Anuj Bar[facility]so [facility] POCT GLUCOSE (AUTOMATED) 2021-12-19 14:51:[address] Uni [facility] INSURANCE CORRESPONDENCE 2021-08-22 05:01:00 Doctor Nicole, [facility] EXTERNAL PROVIDER RECORDS 2021-07-05 05:01:00 Doctor Nicole, [facility] Name [facility] HOME HEALTH [id number] 2021-06-26 05:01:00 Doctor Nicole, [facility] Name [facility] PATIENT QUESTIONNAIRE 2021-05-13 05:01:00 Doctor Unatori, [facility] Name [facility] PATIENT QUESTIONNAIRE 2020-02-14 06:01:00 Doctor Nicole, Uni [facility] Encounters Start End Encounter Admission Attending Care Care Encounter Source Date/Time Date/Time Type Type Clinicians Facility Department ID 2020-12-17 Emergency [facility] [id number] Univers 02:08:19 ity [facility] 2020-12-13 Emergency [facility] [id number] [facility] 2023-01-25 Outpatient R CHRISTOFER [facility] [id number] Univers 13:20:00 13:20:00 ALAN vidal o f [facility] 2022-12-09 2022-12-09 Outpatient R SUNDAY [facility] [id number] Univers 08:45:00 08:45:00 BRIANNA bolanos f [facility] 2022-11-17 2022-11-17 [id number] Univers 00:00:00 00:00:00 Philip BERRY [id number] i ty [facility] [id number] [id number] [place] evlma NAL [address] [facility] 2022-11-12 2022-11-12 Outpatient R HELEN [facility] [id number] Univers 11:45:00 11:45:00 RANIA ity [facility] 2022-11-12 2022-11-12 Broadcast Field Supervisor Lab, Rodger Parker [facility] 1.2.840.1 14 [id number] [facility] 11:45:00 11:45:00 Visit Unknown, Attending HEALTH 350.1.13.10 ity of [place] 4.2.7.2.686 [place] RUBEN?BLEA [phone] [facility] AJIN [address] MEDICAL OFFICE [facility] 2022-11-12 2022-11-12 Office [facility] 1.2.840.114 [id number] Univers 10:15:00 10:30:00 Visit [facility] 350.1.13.10 it y of [facility] 4.2.7.2.686 Brian as RUBEN?BLEA [phone] [facility] [address] MEDICAL OFFICE [facility] 2022-11-12 2022-11-12 Nurse Nurse, Rodger [facility] 1.2.840.114 [id number] Univers 09:30:00 09:50:00 Visit Unknown, Attending HEALTH 350.1.13.10 ity of [place] 4.2.7.2.686 Brian as RUBEN?BLEA [phone] [facility] PEDROZA [address] MEDICAL OFFICE BUILDING 2022-11-11 2022-11-11 Telephone Leif [facility] 1.2.466.944 [id number] Univers 00:00:00 00:00:00 Shoals HEALTH 350.1.13.10 ity of [place] 4.2.7.2.686 Brian as RUBEN?BLEA [phone] [facility] [address] MEDICAL OFFICE BUILDING 2022-11-03 2022-11-03 Refgriselda Beaulieu [facility] 1.2.840.114 [id number] Univers 00:00:00 00:00:00 Alan BERRY 350.1.13.10 ity of [facility] 4.2.7.2.[place] [phone] Tn velma HELM [address] [facility] 2022-10-29 2022-10-29 Telephone [facility] 1.2.459.703 [id number] [id number] Univers 00:00:00 00:00:00 [facility] 350.1.13.10 it y of [facility] 4.2.7.2.686 Brian as RUBEN?BLEA [id number] [address] OFFICE [facility] 2022-10-27 2022-10-27 Telephone [facility] 1.2.931.249 [id number] Univers 00:00:00 00:00:00 [facility] 350.1.13.10 it y of [place] 4.2.7.2.686 Brian as RUBEN?BLEA [phone] [address] 2022-10-15 2022-10-15 Outpatient Antonia BEAULIEU [facility] [id number] Univers 13:00:00 13:00:00 LUANKO davidy o f [facility] 2022-10-08 2022-10-08 Telephone [facility] 1.2.242.113 [id number] Univers 00:00:00 00:00:00 [facility] 350.1.13.10 it y of [place] 4.2.7.2.686 Brian as RUBEN?BLEA [id number] [address] 2022-10-07 2022-10-07 Outpatient R [facility] [id number] Univers 09:30:00 10:23:18 PHILIP ity [facility] 2022-10-07 2022-10-07 Office [facility] 1.2.840.114 [id number] Univers 09:30:00 09:45:00 Visit [facility] 350.1.13.10 it y of [facility] 4.2.7.2.686 Brian as RUBEN?BLEA [id number] [address] 2022-10-07 2022-10-07 [facility] 1.2.840.114 [id number] Univers 00:00:00 00:00:00 Antonia HEALTH 350.1.13.10 it y of [place] 4.2.7.2.686 Brian as RUBEN?BLEA [id number] [facility] [address] MEDICAL OFFICE [facility] 2022-10-06 2022-10-06 Refill RASHID Bentley 1.2.840.114 [id number] Univers 00:00:00 00:00:00 Adelaide M AQUILES 350.1.13.10 ity of [facility] 4.2.7.2.686 Brian as [id number] [address] 2022-10-03 2022-10-03 Refgriselda [facility] 1.2.840.114 [id number] Univers 00:00:00 00:00:00 Philip HEALTH 350.1.13.10 it y of [place] 4.2.7.2.686 Brian as RUBEN?BLEA [phone] [address] OFFICE [facility] 2022-09-25 2022-09-25 Outpatient R [facility] [id number] Univers 14:20:00 14:32:13 ALAN vidal o f [facility] 2022-09-25 2022-09-25 Office [facility] 1.2.840.114 [id number] Univers 14:20:00 14:32:13 Visit Alan [facility] 350.1.13.10 ity of [place] 4.2.7.2.[place] [phone] [address] 2022-09-24 2022-09-24 Telephone [facility] 1.2.046.404 [id number] [id number] Univers 00:00:00 00:00:00 Luanko [place] 350.1.13.10 ity of [place].2.[place] [phone] [address] 2022-09-08 2022-09-08 Telephone [facility] 1.2.840.114 10 [id number] Univers 00:00:00 00:00:00 Julio L HEALTH 350.1.13.10 it y of [place] 4.2.7.2.686 Brian as RUBEN?BLEA [phone] Me dical YOVANY [address] MEDICAL OFFICE BUILDING 2022-09-08 2022-09-08 Telephone Samir [facility] 1.2.809.481 [id number] [id number] Univers 00:00:00 00:00:00 Philip HEALTH 350.1.13.10 it y of [place] 4.2.7.2.686 Brian as RUBEN?BLEA [phone] Me dicjefe [address]EDROZA [address] MEDICAL OFFICE BUILDING 2022-09-06 2022-09-06 Refill Bev [facility] 1.2.840.114 [id number] Univers 00:00:00 00:00:00 Cyrus HEALTH 350.1.13.10 it y of [place] 4.2.7.2.686 Brian as RUBEN?BLEA [phone] Me velma PEDROZA 220 [facility] OFFICE BUILDING 2022-09-06 2022-09-06 Patient Doctor [facility] 1.2.840.114 [id number] Univers 00:00:00 00:00:00 Secure Msg Unassigned, MULTISPEC 350.1.13.10 ity of [place].2.[place].2.686 [place] [phone] [facility] AND YONG [address] [facility] 2022-09-03 2022-09-03 Refill Chandan Sheehan [facility] 1.2.840.114 [id number] Univers 00:00:00 00:00:00 HEALTH 350.1.13.10 it y of [place] 4.2.7.2.686 Brian as RUBEN?BLEA [phone] Me dicjefe [address] MEDICAL OFFICE BUILDING 2022-09-01 2022-09-01 Broadcast Field Supervisor Lab, Rodger - Keith [facility] 1.2.840.1 14 [id number] Univers 11:45:00 12:36:58 Visit Nivia Eng HEALTH 350.1.13.10 ity of [place] 4.2.7.2.686 Brian as RUBEN?BLEA [phone] Me dical YOVANY [address] MEDICAL OFFICE BUILDING 2022-09-01 2022-09-01 Outpatient R MEGAAXEL [facility] [id number] Univers 10:30:00 11:35:28 NIVIA ity of [facility] 2022-09-01 2022-09-01 Office Addie [facility] 1.2.840.114 [id number] Univers 10:30:00 11:35:28 Visit Nivia HEALTH 350.1.13.10 it y of [facility] 4.2.7.2.686 Brian as RUBEN?BLEA [phone] Tn nijefe [address] 220 [facility] OFFICE [facility] 2022-09-01 2022-09-01 Patient Doctor [facility] 1.2.840.114 [id number] Univers 00:00:00 00:00:00 Secure Msg Unassigned, HEALTH 350.1.13.10 ity of [place] [facility] 4.2.7.2.686 Brian as RUBEN?BLEA [phone] Tn velma YOVANY 044 [facility] OFFICE [facility] 2022-08-31 2022-08-31 Outpatient R CHANDAN SHEEHAN [facility] [id number] Univers 10:00:00 10:00:00 CHANDAN SHEEHAN ity [facility] 2022-08-28 2022-08-28 Orders Doctor RASHID 1.2.840.114 [id number] Univers 00:00:00 00:00:00 Only Unassigned, AQUILES 350.1.13.10 ity of [place] [facility] 4.2.7.2.686 Brian as [phone] [address] 2022-08-27 2022-08-27 Refill Christofer [facility] 1.2.840.114 [id number] Univers 00:00:00 00:00:00 Qiayelitza [facility] 350.1.13.10 ity of [place] 4.2.7.2.686 [place] [phone] Tn velma HELM [address] [facility] 2022-08-27 2022-08-27 Telephone [facility] 1.2.540.387 [id number] [id number] Univers 00:00:00 00:00:00 Philip HEALTH 350.1.13.10 it y of [place] 4.2.7.2.686 Brian as RUBEN?BLEA [phone] Tn dicjefe PEDROZA 044 [facility] OFFICE [facility] 2022-08-17 2022-08-17 Refill Christofer [facility] 1.2.840.114 [id number] Univers 00:00:00 00:00:00 Qiayelitza [facility] 350.1.13.10 ity of [facility] 4.2.7.2.686 [place] [phone] Tn dical NAL [address] [facility] 2022-08-14 2022-08-14 Office [facility] 1.2.840.114 [id number] Univers 09:00:00 09:30:00 Visit AntoniaLob 350.1.13.10 it y of [facility] 4.2.7.2.686 Brian as RUBNE?BLEA [phone] Tn dicjefe PEDROZA 092 [facility] 2022-08-14 2022-08-14 Outpatient R KAISER [facility] [id number] Univers 09:00:00 09:00:00 ANTONIA ity [facility] 2022-08-14 2022-08-14 Telephone Samir [facility] 1.2.342.361 [id number] Univers 00:00:00 00:00:00 Philip HEALTH 350.1.13.10 it y of [place] 4.2.7.2.686 Brian as RUBEN?BLEA [phone] Tn dicjefe P[address]ZA 044 [facility] 2022-08-07 2022-08-07 Refill Chandan Sheehan [facility] 1.2.840.114 [id number] Univers 00:00:00 00:00:00 HEALTH 350.1.13.10 it y of [place] 4.2.7.2.686 Brian as RUBEN?BLEA [phone] Tn dical YOVANY 220 [facility] OFFICE [facility] 2022-08-05 2022-08-05 Broadcast Field Supervisor 2, Adc Lab [facility] 1.2.840.114 [id number] Univers 14:15:00 14:22:34 Visit Alan Beaulieu DELMAAJ 350.1.13.10 ity of [facility] 4.2.7.2.686 [place] [phone] Tn dical NAL [address] [facility] 2022-08-05 2022-08-05 Outpatient R CHRISTOFER, [facility] [id number] Univers 14:15:00 14:15:00 ALAN hernandezy o f [facility] 2022-08-05 2022-08-05 Office Christofer, [facility] 1.2.840.114 [id number] Univers 13:40:00 14:13:02 Visit Alan BERRY 350.1.13.10 ity of [facility] 4.2.7.2.686 [place] [phone] Tn dical NAL [address] [facility] 2022-08-05 2022-08-05 Patient Christofer, [facility] 1.2.840.114 [id number] Univers 00:00:00 00:00:00 Secure Msg Alan [place] 350.1.13.10 ity of [facility] 4.2.7.2.686 [place] [phone] Tn dicjefe NAL [address] [facility] 2022-07-29 2022-07-29 Outpatient R CHRISTOFER, [facility] [id number] Univers 11:00:00 23:59:00 QIAYELITZA hernandezy o f [facility] 2022-07-29 2022-07-29 Patient Christofer, [facility] 1.2.840.114 [id number] Univers 00:00:00 00:00:00 Secure Msg Alan [place] 350.1.13.10 ity of [place] 4.2.7.2.686 [place] [phone] Tn dical NAL [address] [facility] 2022-07-28 2022-07-28 Telephone [facility] 1.2.323.052 [id number] [id number] Univers 00:00:00 00:00:00 [facility] 350.1.13.10 ity of [facility] 4.2.7.2.686 Brian as RUBEN?BLEA [phone] Tn nijefe PEDROZA [address] [place] [address] OFFICE [facility] 2022-07-27 2022-07-27 Telephone [facility] 1.2.146.742 [id number] [id number] Univers 00:00:00 00:00:00 [facility] 350.1.13.10 ity of [place] 4.2.7.2.686 Brian as RUBEN?BLEA [phone] Tn dicjefe PEDROZA [address] [place] [address] OFFICE [facility] 2022-07-27 2022-07-27 Refill [facility] 1.2.840.114 [id number] Univers 00:00:00 00:00:00 Uriah HEALTH 350.1.13.10 it y of [facility] 4.2.7.2.686 Brian as RUBEN?BLEA [phone] [facility] [address] OFFICE [facility] 2022-07-27 2022-07-27 Telephone [facility] 1.2.877.756 [id number] Univers 00:00:00 00:00:00 [facility] 350.1.13.10 it y of [facility] 4.2.7.2.686 Brian as RUBEN?BLEA [phone] Tn dicjefe [address] 2022-07-22 2022-07-22 Refill [facility] 1.2.840.114 [id number] Univers 00:00:00 00:00:00 [facility] 350.1.13.10 it y of [place] 4.2.7.2.686 Brian as RUBNE?BLEA [phone] Tn dicjefe [address] 2022-07-21 2022-07-21 Refill [facility] 1.2.840.114 [id number] Univers 00:00:00 00:00:00 Qiakenjun [place] 350.1.13.10 ity of [facility] 4.2.7.2.686 [place] [phone] Tn dicjefe NAL [address] [facility] 2022-07-19 2022-07-19 Patient Doctor [facility] 1.2.840.114 [id number] Univers 00:00:00 00:00:00 Secure Msg Unassigned, HEALTH 350.1.13.10 ity of [place] 4.2.7.2.686 Brian as RUBEN?BLEA 706.1043240 Tn dical [address] OFFICE [facility] 2022-07-19 2022-07-19 Refill [facility] 1.2.840.114 [id number] Univers 00:00:00 00:00:00 Cyrus HEALTH 350.1.13.10 it y of [place] 4.2.7.2.686 Brian as RUBEN?BLEA [phone] Me velma PEDROZA 220 [facility] OFFICE [facility] 2022-07-19 2022-07-19 Refill [facility] 1.2.840.114 [id number] Univers 00:00:00 00:00:00 Qiangjun [place] 350.1.13.10 ity of [facility] 4.2.7.2.686 [place] 174.0621701 Tn velma NAL 0[address] [facility] 2022-07-16 2022-07-16 Patient [facility] 1.2.840.114 [id number] Univers 00:00:00 00:00:00 Outreach Kaylee R HEALTH 350.1.13.10 ity of [facility] 4.2.7.2.686 Brian as RUBEN?BLEA 178.9423690 Tn velma P[address]ZA 198 [facility] 2022-07-15 2022-07-15 Telephone [facility] 1.2.633.793 [id number] [id number] Univers 00:00:00 00:00:00 Qiako [place] 350.1.13.10 ity of [facility] 4.2.7.2.686 [place] 792.8694339 Tn velma NAL 0[address] [facility] 2022-07-14 2022-07-14 Outpatient R ENRRIQUE [facility] [id number] Univers 08:30:00 08:59:44 CONNIE ity of [facility] 2022-07-14 2022-07-14 Office [facility] 1.2.840.114 [id number] Univers 08:30:00 08:59:44 Visit Connie S HEALTH 350.1.13.10 it y of [place] 4.2.7.2.686 Brian as RUBEN?BLEA [phone] Tn velma PEDROZA 198 [facility] 2022-07-12 2022-07-12 Refill [facility] 1.2.840.114 [id number] Univers 00:00:00 00:00:00 Kalniayelitza KRISTI 350.1.13.10 ity of [place] 4.2.7.2.686 [place] 462.7290018 [facility] 0[address] [facility] 2022-07-10 2022-07-10 Outpatient R ENRRIQUE [facility] [id number] Univers 08:30:00 08:30:00 CONNIE ity [facility] 2022-07-07 2022-07-07 Office [facility] 1.2.840.114 [id number] Univers 10:00:00 10:30:00 Visit [facility] 350.1.13.10 it y of [place] 4.2.7.2.686 Brian as RUBEN?BLEA [phone] [address] OFFICE [facility] 2022-07-07 2022-07-07 Outpatient R SAMIR [facility] [id number] Univers 10:00:00 10:00:00 [facility] 2022-07-06 2022-07-06 RefRASHID Rao 1.2.840.114 [id number] Univers 00:00:00 00:00:00 Adelaide KWAN 350.1.13.10 ity of [facility] 4.2.7.2.686 Brian as [phone] [address] 2022-07-04 2022-07-04 Patient [facility] 1.2.840.114 [id number] Univers 00:00:00 00:00:00 Secure Msg Kalinakenko KRISTI 350.1.13.10 ity of [place] 4.2.7.2.686 [place] 992.5179898 Tn dical NAL 0[address] [facility] 2022-07-03 2022-07-03 Broadcast Field Supervisor 2, Adc Lab [facility] 1.2.840.114 [id number] Univers 16:00:00 16:21:47 Visit Kalina Beaulieuyelitaz BERRY 350.1.13.10 ity of [place] 4.2.7.2.686 [place] [phone] [facility] 353 [facility] 2022-07-03 2022-07-03 Outpatient R CHRISTOFER [facility] [id number] Univers 15:40:00 15:50:51 ALAN vidal o f [facility] 2022-07-03 2022-07-03 Office [facility] 1.2.840.114 [id number] Univers 15:40:00 15:50:51 Visit Alan [place] 350.1.13.10 ity of [place] 4.2.7.2.686 [place] [phone] Tn dical NAL 059 [facility] 2022-06-26 2022-06-26 Telephone [facility] 1.2.417.889 [id number] [id number] Univers 00:00:00 00:00:00 Uriah HEALTH 350.1.13.10 it y of [place] 4.2.7.2.686 Brian as RUBEN?BLEA [phone] [address] OFFICE [facility] 2022-06-26 2022-06-26 Orders Doctor RASHID 1.2.840.114 [id number] Univers 00:00:00 00:00:00 Only Unassigned, AQUILES 350.1.13.10 ity of [place] [facility] 4.2.7.2.686 Brian as [id number] [address] 2022-06-24 2022-06-24 Refill [facility] 1.2.840.114 [id number] Univers 00:00:00 00:00:00 Uriah HEALTH 350.1.13.10 it y of [place] 4.2.7.2.686 Brian as RUBEN?BLEA 794.9564113 [address] OFFICE [facility] 2022-06-22 2022-06-22 Telephone [facility] 1.2.694.334 [id number] Univers 00:00:00 00:00:00 Susan HEALTH 350.1.13.10 ity of [place] 4.2.7.2.686 Brian as RUBEN?BLEA [id number] [address] OFFICE [facility] 2022-06-21 2022-06-21 Refill [facility] 1.2.840.114 [id number] Univers 00:00:00 00:00:00 Alan [place] 350.1.13.10 ity of [facility] 4.2.7.2.[place] 390.5987222 Tn dicny NAL [address] [place] [address] 2022-06-19 2022-06-19 Outpatient R CHRISTOFER [facility] [id number] Univers 13:00:00 13:48:49 LUANKO ity o f [facility] 2022-06-19 2022-06-19 Office [facility] 1.2.840.114 [id number] Univers 13:00:00 13:48:49 Visit Luanko [place] 350.1.13.10 ity of [facility] 4.2.7.2.[place] 044.8256853 [address] 2022-06-18 2022-06-18 Telephone [facility] 1.2.569.148 [id number] [id number] Univers 00:00:00 00:00:00 Susan HEALTH 350.1.13.10 ity of [place] 4.2.7.2.686 Brian as RUBEN?BLEA [id number] [address] 2022-06-17 2022-06-17 Patient [facility] 1.2.840.114 [id number] Univers 00:00:00 00:00:00 Secure [facility] HEALTH 350.1.13.10 ity of [place] 4.2.7.2.686 Brian as RUBEN?BLEA 442.3550599 [address] 2022-06-17 2022-06-17 Telephone [facility] 1.2.238.062 [id number] [id number] Univers 00:00:00 00:00:00 Philip HEALTH 350.1.13.10 it y of [place] 4.2.7.2.686 Brian as RUBEN?BLEA [phone] [address] OFFICE [facility] 2022-06-16 2022-06-16 Telephone [facility] 1.2.751.832 [id number] [id number] Univers 00:00:00 00:00:00 Miret Surgical 350.1.13.10 ity of [facility] 4.2.7.2.686 Brian as RUBEN?BLEA 133.1152298 Tn velma PEDROZA [address] MEDICAL OFFICE [facility] 2022-06-15 2022-06-15 Orders Doctor RASHID 1.2.840.114 [id number] Univers 00:00:00 00:00:00 Only Unassigned, AQUILES 350.1.13.10 ity of [place] [facility] 4.2.7.2.686 Brian as [phone] [address] 2022-06-14 2022-06-14 Refill [facility] 1.2.840.114 [id number] Univers 00:00:00 00:00:00 AntoniaLob 350.1.13.10 it y of [facility] 4.2.7.2.686 Brian as RUBEN?BLEA 356.5559517 [facility] 092 [facility] OFFICE [facility] 2022-06-12 2022-06-12 Outpatient [facility] [id number] Univers 09:30:00 10:01:28 ANTONIA ity of [facility] 2022-06-12 2022-06-12 Office [facility] 1.2.840.114 [id number] Univers 09:30:00 10:01:[address] [facility] 350.1.13.10 it y of [place] 4.2.7.2.686 Brian as RUBEN?BLEA [id number] Tn velma PEDROZA 092 [facility] OFFICE [facility] 2022-06-12 2022-06-12 Telephone Christofer [facility] 1.2.418.809 [id number] Univers 00:00:00 00:00:00 Qiayelitza [place] 350.1.13.10 ity of [facility] 4.2.7.2.686 [place] ESSIO 398.6633930 Tn velma HELM 059 [facility] 2022-06-11 2022-06-11 Broadcast Field Supervisor Lab, Rodger Parker [facility] 1.2.840.1 14 [id number] Univers 09:00:00 09:41:08 Visit [facility] Healthcare[facility]an [facility] 350.1.13.10 ity of [facility] 4.2.7.2.686 Brian as RUBEN?BLEA [phone] Tn dicjefe PEDROZA [address] [facility] 2022-06-11 2022-06-11 Outpatient R ROBERTJoisas SUSAN [facility] [id number] Univers 08:00:00 08:53:17 SUSAN WILEY itjosias [facility] 2022-06-11 2022-06-11 [facility] 1.2.840.114 [id number] Univers 08:00:00 08:53:17 Visit [facility] 350.1.13.10 ity of [place] 4.2.7.2.686 Brian as RUBEN?BLEA [phone] Tn dical YOVANY 044 [facility] OFFICE [facility] 2022-06-11 2022-06-11 Patient Braxton [facility] 1.2.840.114 [id number] Univers 00:00:00 00:00:00 Outreach [facility] 350.1.13.10 i ty of [place] 4.2.7.2.686 Brian as RUBEN?BLEA [phone] Tn dicjefe PEDROZA 044 [facility] OFFICE [facility] 2022-06-11 2022-06-11 Orders Doctor RASHID 1.2.840.114 [id number] Univers 00:00:00 00:00:00 Only Unassigned, AQUILES 350.1.13.10 ity of [place] [facility] 4.2.7.2.686 Brian as [id number] [address] 2022-06-10 2022-06-10 Outpatient R SUNDAY [facility] [id number] Univers 09:15:00 10:14:40 BRIANNA vidal o f [facility] 2022-06-10 2022-06-10 Office [facility] 1.2.840.114 [id number] Univers 09:15:00 10:14:40 Visit Brianna BERRY 350.1.13.10 ity of [facility] [place] [phone] Tn dical ALICJA 204 [facility] 2022-06-08 2022-06-08 Outpatient R CHRISTOFER [facility] [id number] Univers 15:40:00 15:40:00 ALAN hernandezy o f [facility] 2022-06-08 2022-06-08 Telephone [facility] 1.2.032.526 [id number] Univers 00:00:00 00:00:00 Alan [facility] 350.1.13.10 ity of [place] [facility] [phone] Tn dical NAL 059 [facility] 2022-06-05 2022-06-05 Hospital [facility] 1.2.840.114 [id number] Univers 10:54:49 23:59:00 Encounter Susan [place] 350.1.13.10 ity of [place] MCNARY [phone] [facility] [address] 2022-06-05 2022-06-05 Outpatient R SUSAN WILEY [facility] [id number] Univers 09:47:15 10:53:00 SUSAN WILEY [facility] 2022-06-05 2022-06-05 Broadcast Field Supervisor Lab, [facility] 1.2.840.1 14 [id number] Univers 09:45:00 10:33:00 Visit Robertjosias [facility] 350.1.13.10 ity of [place] 4.2.7.2.686 Brian as RUBEN?BLEA [phone] [facility] 353 [facility] OFFICE [facility] 2022-06-05 2022-06-05 Office [facility] 1.2.840.114 [id number] Univers 08:40:00 09:38:18 Visit [facility] 350.1.13.10 ity of [place] 4.2.7.2.686 Brian as RUBEN?BLEA [id number] [facility] 044 [facility] OFFICE [facility] 2022-06-02 2022-06-02 [facility] 1.2.840.114 [id number] Univers 00:00:00 00:00:00 Philip HEALTH 350.1.13.10 it y of [facility] 4.2.7.2.686 Brian as RUBEN?BLEA [phone] [facility]n [facility] 044 [facility] OFFICE [facility] 2022-05-25 2022-05-25 Telephone [facility] 1.2.466.173 [id number] Univers 00:00:00 00:00:00 Philip HEALTH 350.1.13.10 it y of [place] 4.2.7.2.686 Brian as RUBEN?BLEA [phone] [address] OFFICE [facility] 2022-05-24 2022-05-24 [facility] 1.2.840.114 [id number] Univers 00:00:00 00:00:00 Qiangjun WAT[place] 350.1.13.10 ity of [place].2.7.2.[place] [phone] Tn velma [facility] [address] [facility] 2022-05-20 2022-05-20 Telephone [facility] 1.2.050.464 [id number] Univers 00:00:00 00:00:00 Philip HEALTH 350.1.13.10 it y of [place] 4.2.7.2.686 Brian as RUBEN?BLEA [phone] [address] OFFICE [facility] 2022-05-20 2022-05-20 [facility] 1.2.143.384 [id number] Univers 00:00:00 00:00:00 Philip HEALTH 350.1.13.10 it y of [place] 4.2.7.2.686 Brian as RUBEN?BLEA [phone] [address] OFFICE [facility] 2022-05-20 2022-05-20 [facility] 1.2.840.114 [id number] Univers 00:00:00 00:00:00 Philip HEALTH 350.1.13.10 it y of [place] 4.2.7.2.686 Brian as RUBEN?BLEA [phone] Tn dic[address] OFFICE [facility] 2022-05-13 2022-05-13 Office [facility] 1.2.840.114 [id number] Univers 15:15:00 15:30:00 Visit Philip HEALTH 350.1.13.10 it y of [place] 4.2.7.2.686 Brian as RUBEN?BLEA [phone] Tn dical KNEY 044 [facility] OFFICE [facility] 2022-05-13 2022-05-13 Outpatient R SAMIR [facility] [id number] Univers 15:15:00 15:15:00 PHILIP vidal [facility] 2022-05-12 2022-05-12 Outpatient R KAISER [facility] [id number] Univers 13:00:00 14:25:34 ANTONIA vidal [facility] 2022-05-12 2022-05-12 Office [facility] 1.2.840.114 [id number] Univers 13:00:00 14:25:[address] [facility] 350.1.13.10 it y of [place] 4.2.7.2.686 Brian as RUBEN?BLEA [phone] Tn dicny YOVANY 092 [facility] OFFICE [facility] 2022-05-12 2022-05-12 Micha Beaulieu [facility] 1.2.840.114 [id number] Univers 00:00:00 00:00:00 Qiayelitza W[place] 350.1.13.10 ity of [place] 4.2.7.2.686 [place] [phone] Tn dical NAL [address] [facility] 2022-05-07 2022-05-07 Patient Doctor RASHID 1.2.840.114 [id number] Univers 00:00:00 00:00:00 Secure Msg Unassigned, AQUILES 350.1.13.10 ity of [place] [facility] 4.2.7.2.686 Brian as [phone] [address] 2022-05-06 2022-05-06 Telephone [facility] 1.2.938.441 [id number] Univers 00:00:00 00:00:00 [facility] 350.1.13.10 it y of [place] 4.2.7.2.686 Brian as RUBEN?BLEA [phone] Tn dical KNEY 044 [facility] OFFICE [facility] 2022-05-05 2022-05-05 Outpatient Antonia DAWSON [facility] [id number] Univers 10:15:00 10:15:00 PHILIP vidal [facility] 2022-05-04 2022-05-04 Outpatient R SAMIR [facility] [id number] Univers 15:00:00 15:34:06 PHILIP vidal [facility] 2022-05-04 2022-05-04 Office [facility] 1.2.840.114 [id number] Univers 15:00:00 15:34:06 Visit Philip HEALTH 350.1.13.10 it y of [place] 4.2.7.2.686 Brian as RUBEN?BLEA [phone] [address] MEDICAL OFFICE [facility] 2022-05-02 2022-05-02 Refill [facility] 1.2.840.114 [id number] Univers 00:00:00 00:00:00 Philip HEALTH 350.1.13.10 it y of [place] 4.2.7.2.686 Brian as RUBEN?BLEA [phone] [address] MEDICAL OFFICE [facility] 2022-05-01 2022-05-01 [facility] 1.2.817.219 [id number] Univers 11:21:52 23:59:00 Encounter Rania HEALTH 350.1.13.10 ity of [place] 4.2.7.2.686 Brian as RUBEN?BLEA [phone] [facility] [address] [place] [address] OFFICE [facility] 2022-05-01 2022-05-01 [facility] 1.2.156.881 [id number] Univers 11:21:51 23:59:00 Encounter Rania HEALTH 350.1.13.10 ity of [place] 4.2.7.2.686 Brian as RUBEN?BLEA [phone] [facility] [address] [place] [address] MEDICAL OFFICE [facility] 2022-05-01 2022-05-01 [facility] 1.2.447.902 [id number] Univers 11:21:51 23:59:00 Encounter Rania HEALTH 350.1.13.10 ity of [place] 4.2.7.2.686 Brian as RUBEN?BLEA [phone] [facility] [address] [place] [address] MEDICAL OFFICE [facility] 2022-05-01 2022-05-01 Outpatient R HELEN [facility] [id number] Univers 11:21:50 23:59:00 [place] ity of [facility] 2022-05-01 2022-05-01 [facility] 1.2.452.732 [id number] Univers 11:21:50 23:59:00 Encounter [facility] 350.1.13.10 ity of [facility] 4.2.7.2.686 Brian as RUBEN?BLEA [phone] [facility] [address] MEDICAL OFFICE [facility] 2022-05-01 2022-05-01 Urgent Landon Cervantes [facility] 1.2.840.114 [id number] Univers 10:40:00 11:31:41 Care Unknown, [facility] HEALTH 350.1.13.10 ity of [facility] 4.2.7.2.686 Brian as RUBEN?BLEA [phone] [facility] 370 [facility] OFFICE [facility] 2022-05-01 2022-05-01 Orders Doctor RASHID 1.2.840.114 [id number] Univers 00:00:00 00:00:00 Only Unassigned, AQUILES 350.1.13.10 ity of [place] [facility] 4.2.7.2.686 Brian as [phone] [address] 2022-05-01 2022-05-01 Telephone [facility] 1.2.243.861 [id number] Univers 00:00:00 00:00:00 Uriah HEALTH 350.1.13.10 it y of [place] 4.2.7.2.686 Brian as RUBEN?BLEA [phone] [facility] 370 [facility] OFFICE [facility] 2022-04-27 2022-04-27 Telephone [facility] 1.2.503.025 [id number] Univers 00:00:00 00:00:00 Philip HEALTH 350.1.13.10 it y of [facility] 4.2.7.2.686 Brian as RUBEN?BLEA [phone] [facility] [address] MEDICAL OFFICE [facility] 2022-04-272022-04-27 Telephone [facility] 1.2.258.283 [id number] Univers 00:00:00 00:00:00 Philip HEALTH 350.1.13.10 it y of [place] 4.2.7.2.686 Brian as RUBEN?BLEA [phone] Tn velma PEDROZA [address] MEDICAL OFFICE [facility] 2022-04-17 2022-04-17 Svitlana [facility] 1.2.032.023 [id number] Univers 00:00:00 00:00:00 Philip HEALTH 350.1.13.10 it y of [place] 4.2.7.2.686 Brian as RUBEN?BLEA [phone] Tn velma PEDROZA [address] MEDICAL OFFICE [facility] 2022-04-15 2022-04-15 Refgriselda [facility] 1.2.840.114 [id number] Univers 00:00:00 00:00:00 Philip HEALTH 350.1.13.10 it y of [place] 4.2.7.2.686 Brian as RUBEN?BLEA [phone] Tn velma PEDROZA 044 [facility] OFFICE [facility] 2022-04-13 2022-04-13 Svitlana [facility] 1.2.839.467 [id number] Univers 00:00:00 00:00:00 Philip HEALTH 350.1.13.10 it y of [place] 4.2.7.2.686 Brian as RUBEN?BLEA [phone] Tn velma PEDROZA [address] MEDICAL OFFICE [facility] 2022-04-07 2022-04-07 Patient Chandan Sheehan [facility] 1.2.840.114 [id number] Univers 00:00:00 00:00:00 Secure [facility] HEALTH 350.1.13.10 ity of [place] 4.2.7.2.686 Biran as RUBEN?BLEA [phone] Tn velma PEDRO[address] MEDICAL OFFICE BUILDING 2022-04-06 2022-04-06 Refgriselda Awa [facility] 1.2.840.114 [id number] Univers 00:00:00 00:00:00 Juan HEALTH 350.1.13.10 it y of [place] 4.2.7.2.686 Brian as RUBEN?BLEA [phone] Tn dicjefe PEDROZA [address] MEDICAL OFFICE BUILDING 2022-04-01 2022-04-01 Outpatient R CHANDAN SHEEHAN [facility] [id number] Univers 14:30:00 15:19:43 CHANDAN SHEEHAN ity of [facility] 2022-04-01 2022-04-01 Office Chandan Sheehan [facility] 1.2.840.114 [id number] Univers 14:30:00 15:19:43 Visit HEALTH 350.1.13.10 it y of [place] 4.2.7.2.686 Brian as RUBEN?BLEA [phone] Tn dicjefe [address] MEDICAL OFFICE BUILDING 2022-04-01 2022-04-01 [employer] [facility], [facility] 1.2.840.1 14 [id number] Univers 15:00:00 15:15:00 Visit KristanChandan carranza HEALTH 350.1.13.10 it y of [place] 4.2.7.2.686 Brian as RUBEN?BLEA [phone] [facility] [address] MEDICAL OFFICE BUILDING 2022-03-28 2022-03-28 Orders Doctor RASHID 1.2.840.114 [id number] Univers 00:00:00 00:00:00 Only Unassigned, AQUILES 350.1.13.10 ity of [place] [facility] 4.2.7.2.686 Brian as [phone] [address] 2022-03-18 2022-03-18 Micha [facility] 1.2.840.114 [id number] Univers 00:00:00 00:00:00 Philip HEALTH 350.1.13.10 it y of [place] 4.2.7.2.686 Brian as RUBEN?BLEA [phone] [facility] SUSY [address] MEDICAL OFFICE [facility] 2022-03-08 2022-03-08 Micha [facility] 1.2.840.114 [id number] Univers 00:00:00 00:00:00 Philip HEALTH 350.1.13.10 it y of [place] 4.2.7.2.686 Biran as RUBEN?BLEA [phone] [address] OFFICE [facility] 2022-03-03 2022-03-03 [facility] 1.2.840.114 [id number] Univers 00:00:00 00:00:00 Philip HEALTH 350.1.13.10 it y of [place] 4.2.7.2.686 Brian as RUBEN?BLEA [phone] [address] OFFICE [facility] 2022-02-17 2022-02-17 Outpatient R KACI [facility] [id number] Univers 08:30:00 09:20:40 MARCY vidal [facility] 2022-02-17 2022-02-17 Office [facility] 1.2.840.114 [id number] Univers 08:30:00 09:20:40 Visit Marcy [facility] 350.1.13.10 it y of [place] 4.2.7.2.686 Brian as RUBEN?BLEA [phone] [address] OFFICE [facility] 2022-02-11 2022-02-11 [facility] 1.2.840.114 [id number] Univers 00:00:00 00:00:00 Philip HEALTH 350.1.13.10 it y of [place] 4.2.7.2.686 Brian as RUBEN?BLEA [phone] [address] OFFICE [facility] 2022-02-09 2022-02-09 [facility] 1.2.840.114 [id number] Univers 00:00:00 00:00:00 Philip HEALTH 350.1.13.10 it y of [place] 4.2.7.2.686 Brian as RUBEN?BLEA [phone] [address] OFFICE [facility] 2022-01-23 2022-01-23 Outpatient R ALEXANDRA [facility] [id number] Univers 09:00:00 09:49:47 JULIO vidal [facility] 2022-01-23 2022-01-23 Office [facility] 1.2.035.215 [id number] Univers 09:00:00 09:49:47 [facility] 350.1.13.10 it y of [place] 4.2.7.2.686 Brian as RUBEN?BLEA [phone] Me dicjefe PEDROZA 198 [facility] OFFICE [facility] 2022-01-05 2022-01-05 Outpatient R SAMIR [facility] [id number] Univers 10:15:00 10:33:23 PHILIP vidal [facility] 2022-01-05 2022-01-05 Office [facility] 1.2.840.114 [id number] Univers 10:15:00 10:30:00 Visit [facility] 350.1.13.10 it y of [facility] 4.2.7.2.686 Brian as RUBEN?BLEA [phone] Tn dicjefe PEDROZA 044 [facility] OFFICE [facility] 2022-01-05 2022-01-05 Orders Doctor MIKE 1.2.840.114 [id number] Univers 00:00:00 00:00:00 Only Unassigned, AQUILES 350.1.13.10 ity of [place] [facility] 4.2.7.2.686 Brian as [phone] [address] 2021-12-31 2021-12-31 Refill [facility] 1.2.840.114 [id number] Univers 00:00:00 00:00:00 [facility] 350.1.13.10 it y of [facility] 4.2.7.2.686 Brian as RUBEN?BLEA [phone] Tn evlma PEDROZA 044 [facility] 2021-12-29 2021-12-29 Outpatient Antonia DAWSON [facility] [id number] Univers 09:30:00 09:30:00 PHILIP josias [facility] 2021-12-24 2021-12-24 Telephone [facility] 1.2.634.128 [id number] Univers 00:00:00 00:00:00 [facility] 350.1.13.10 it y of [facility] 4.2.7.2.686 Brian as RUBEN?BLEA [phone] Me dicjefe PEDROZA 220 [facility] OFFICE [facility] 2021-12-23 2021-12-23 Transition EL Ivey 1.2.840.114 [id number] Univers 00:00:00 00:00:00 of Rell Jaylin Leach NIKI 350.1.13.10 it y of [place].2.[place] [id number] [facility] [address] 2021-12-19 2021-12-21 Outpatient X CHELOBRANDON [facility] GARY [id number] Univers 09:53:00 16:19:00 MORALES ity of [facility] 2021-12-19 2021-12-21 Emergency Anuj Barroso [facility] 1.2.840. 114 [id number] Univers 09:53:00 16:19:00 Reese Hanson 350.1.13.10 ity of [place]on [place] 4.2.7.2.686 [facility] [phone] [facility] [address] 2021-12-18 2021-12-18 Refgriselda [facility] 1.2.840.114 [id number] Univers 00:00:00 00:00:00 [facility] 350.1.13.10 it y of [place] 4.2.7.2.686 Brian as RUBEN?BLEA [phone] Tn velma JAIN [address] MEDICAL OFFICE BUILDING 2021-12-17 2021-12-17 Outpatient R CHANDAN SHEEHAN [facility] [id number] Univers 09:30:00 09:30:00 CHANDAN SHEEHAN ity of [facility] 2021-12-10 2021-12-10 [facility] [id number] Univers 11:30:00 12:18:32 BRIANNA vidal o f [facility] 2021-12-10 2021-12-10 Office [facility] 1.2.840.114 [id number] Univers 11:30:00 12:18:32 Visit Brianna BERRY 350.1.13.10 ity of [place]2.7.2.[place] [phone] Tn velma [facility] [address] BUILDING 2021-09-27 2021-09-27 Refgriselda [facility] 1.2.840.114 [id number] Univers 00:00:00 00:00:00 [facility] 350.1.13.10 it y of [place] 4.2.7.2.686 Brian as RUBEN?BLEA [phone] Tn velma PEDROZA [address] [place] [address] MEDICAL OFFICE [facility] 2021-09-08 2021-09-08 Letter [facility] 1.2.840.114 [id number] Univers 00:00:00 00:00:00 (Out) Philip HEALTH 350.1.13.10 it y of [place] 4.2.7.2.686 Brian as RUBEN?BLEA [phone] Tn velma PEDROZA [address] [place] [address] MEDICAL OFFICE [facility] 2021-08-25 2021-08-25 Telephone [facility] 1.2.245.737 [id number] Univers 00:00:00 00:00:00 Philip HEALTH 350.1.13.10 it y of [place] 4.2.7.2.686 Brian as RUBEN?BLEA [phone] Tn velma JAIN[address] OFFICE [facility] 2021-08-25 2021-08-25 Letter [facility] 1.2.840.114 [id number] Univers 00:00:00 00:00:00 (Out) Philip HEALTH 350.1.13.10 it y of [place] 4.2.7.2.686 Brian as RUBEN?BLEA [phone] Tn ni[address] OFFICE [facility] 2021-08-25 2021-08-25 Letter [facility] 1.2.840.114 [id number] Univers 00:00:00 00:00:00 (Out) Philip HEALTH 350.1.13.10 it y of [place] 4.2.7.2.686 Brian as RUBEN?BLEA [id number] Tn velma PEDROZA [address] [place] [address] MEDICAL OFFICE [facility] 2021-08-22 2021-08-22 Telephone [facility] 1.2.428.600 [id number] Univers 00:00:00 00:00:00 Rita HEALTH 350.1.13.10 it y of [place] 4.2.7.2.686 Brian as RUBEN?BLEA [phone] [address] OFFICE [facility] 2021-08-22 2021-08-22 Orders Doctor RASHID 1.2.840.114 [id number] Univers 00:00:00 00:00:00 Only Unassigned, AQUILES 350.1.13.10 ity of [place] [facility] 4.2.7.2.686 Brian as [phone] [address] 2021-08-20 2021-08-20 Micha [facility] 1.2.840.114 [id number] Univers 00:00:00 00:00:00 Phliip HEALTH 350.1.13.10 it y of [place] 4.2.7.2.686 Brian as RUBEN?BLEA [phone] [address] OFFICE [facility] 2021-08-20 2021-08-20 Micha [facility] 1.2.840.114 [id number] Univers 00:00:00 00:00:00 Rita HEALTH 350.1.13.10 it y of [place] 4.2.7.2.686 Brian as RUBEN?BLEA [phone] [address] OFFICE [facility] 2021-08-20 2021-08-20 [facility]a [facility] 1.2.840.114 [id number] Univers 00:00:00 00:00:00 Alan [place] 350.1.13.10 ity of [place].2.[place] [phone] [facility] [address] [facility] 2021-08-14 2021-08-14 Outpatient R CHACORTA [facility] [id number] Univers 10:45:00 10:45:00 SKINNY ity of [facility] 2021-07-17 2021-07-17 [facility]a [facility] 1.2.840.114 [id number] Univers 00:00:00 00:00:00 Rita HEALTH 350.1.13.10 it y of [place] 4.2.7.2.686 Brian as RUBEN?BLEA [id number] [address] OFFICE [facility] 2021-07-15 2021-07-15 Micha [facility] 1.2.840.114 [id number] Univers 00:00:00 00:00:00 Philip HEALTH 350.1.13.10 it y of [place] 4.2.7.2.686 Brian as RUBEN?BLEA [phone] Tn velma P[address] MEDICAL OFFICE [facility] 2021-07-10 2021-07-10 Telephone Rossana [facility] 1.2.567.101 [id number] Univers 00:00:00 00:00:00 Susan SPECIALTY 350.1.13.10 ity of [facility] 4.2.7.2.[place] CENTER AT [phone] Tn velma ESTRELLA [address] [place] [address] 2021-07-09 2021-07-09 Outpatient R SUSAN CUETO [facility] [id number] Univers 13:30:00 13:30:00 [facility] 2021-07-07 2021-07-07 Refgriselda [facility] 1.2.840.114 [id number] Univers 00:00:00 00:00:00 Rita HEALTH 350.1.13.10 it y of [place] 4.2.7.2.686 Brian as RUBEN?BLEA [phone] [address] MEDICAL OFFICE [facility] 2021-07-05 2021-07-05 Orders Doctor RASHID 1.2.840.114 [id number] Univers 00:00:00 00:00:00 Only Unassigned, AQUILES 350.1.13.10 ity of [place] [facility] 4.2.7.2.686 Brian as [phone] [address] 2021-07-04 2021-07-04 Telephone [facility] 1.2.736.951 [id number] Univers 00:00:00 00:00:00 Philip HEALTH 350.1.13.10 it y of [place] 4.2.7.2.686 Brian as RUBEN?BLEA [phone] Tn velma PEDROZA [address] [place] [address] MEDICAL OFFICE [facility] 2021-07-03 2021-07-03 Refgriselda [facility] 1.2.840.114 [id number] Univers 00:00:00 00:00:00 Philip HEALTH 350.1.13.10 it y of [facility] 4.2.7.2.686 Brian as RUBEN?BLEA [phone] Tn velma [address] MEDICAL OFFICE BUILDING 2021-07-01 2021-07-01 Telephone [facility] 1.2.860.170 [id number] Univers 00:00:00 00:00:00 [facility] 350.1.13.10 it y of [place] 4.2.7.2.686 Brian as RUBEN?BLEA [phone] [address] MEDICAL OFFICE BUILDING 2021-06-30 2021-06-30 Refill [facility] 1.2.840.114 [id number] Univers 00:00:00 00:00:00 [facility] 350.1.13.10 it y of [place] 4.2.7.2.686 Brian as RUBEN?BLEA [phone] [address] MEDICAL OFFICE [facility] 2021-06-27 2021-06-27 Telephone [facility] 1.2.140.202 [id number] Univers 00:00:00 00:00:00 [facility] 350.1.13.10 it y of [place] 4.2.7.2.686 Rbian as RUBEN?BLEA [phone] [address] OFFICE [facility] 2021-06-26 2021-06-26 Office [facility] 1.2.840.114 [id number] Univers 13:00:00 13:30:00 Visit [facility] 350.1.13.10 it y of [place] 4.2.7.2.686 Brian as RUBEN?BLEA [phone] [address] MEDICAL OFFICE [facility] 2021-06-26 2021-06-26 Outpatient Antonia DAWSON [facility] [id number] Univers 13:00:00 13:00:00 PHILIP vidal [facility] 2021-06-26 2021-06-26 Outpatient Antonia DAWSNO [facility] [id number] [employer] 13:00:00 13:00:00 PHILIP vidal [facility] 2021-06-26 2021-06-26 Orders Doctor MIKE 1.2.840.114 [id number] Univers 00:00:00 00:00:00 Only Unassigned, AQUILES 350.1.13.10 ity of [place] [facility] 4.2.7.2.686 Brian as [phone] [address] 2021-06-16 2021-06-16 Outpatient R BEV [facility] [id number] Univers 13:30:00 14:27:56 [facility] 2021-06-16 2021-06-16 [facility] 1.2.840.114 [id number] Univers 13:30:00 14:00:00 Visit [facility] 350.1.13.10 it y of [place] 4.2.7.2.686 Brian as RUBEN?BLEA [phone] [facility] [address] [facility] OFFICE [facility] 2021-06-16 2021-06-16 [facility] [id number] Univers 13:30:00 13:30:00 [facility] 2021-06-16 2021-06-16 [facility] [id number] Univers 13:30:00 13:30:00 [facility] 2021-06-16 2021-06-16 [facility] [id number] Univers 00:00:00 00:00:00 Rita BERRY 350.1.13.10 i ty [place] [phone] [address] 2021-06-16 2021-06-16 [facility] [id number] Univers 00:00:00 00:00:00 Rita HEALTH 350.1.13.10 it y [place] 4.2.7.2.686 Brian as RUBEN?BLEA [phone] [address] OFFICE [facility] 2021-06-16 2021-06-16 Patient Dawson [facility] 1.2.840.114 [id number] Univers 00:00:00 00:00:00 Secure Msg Philip HEALTH 350.1.13.10 [facility] 4.2.7.2.686 Brian as RUBEN?BLEA [phone] Tn dical YOVANY 044 [facility] OFFICE [facility] 2021-06-16 2021-06-16 Patient Doctor [facility] 1.2.840.114 [id number] Univers 00:00:00 00:00:00 Secure Msg Unassigned, HEALTH 350.1.13.10 ity of [place] 4.2.7.2.686 Brian as RUBEN?BLEA [phone] Tn dical YOVANY 044 [facility] OFFICE [facility] 2021-06-11 2021-06-11 Outpatient R SUNDAY [facility] [id number] Univers 10:00:00 10:45:21 BRIANNA vidal o f [facility] 2021-06-11 2021-06-11 Office Brand, [facility] 1.2.840.114 [id number] Univers 10:00:00 10:45:21 Visit Brianna BERRY 350.1.13.10 [facility] [facility] [place] [phone] Tn dicjefe NAL 204 [facility] 2021-06-08 2021-06-08 [facility] 1.2.840.114 [id number] Univers 00:00:00 00:00:00 Cyrus HEALTH 350.1.13.10 it y of [place] 4.2.7.2.686 Brian as RUBEN?BLEA [phone] Tn dical YOVANY 220 [facility] OFFICE [facility] 2021-05-26 2021-05-26 Micha Patiño [facility] 1.2.840.114 [id number] Univers 00:00:00 00:00:00 Rita HEALTH 350.1.13.10 it y of [facility] 4.2.7.2.686 Brian as RUBEN?BLEA [phone] Tn dical KNEY 044 [facility] OFFICE [facility] 2021-05-21 2021-05-21 [facility]ana [facility] 1.2.368.598 [id number] Univers 00:00:00 00:00:00 Alan [place] 350.1.13.10 ity of [facility] 4.2.7.2.[place] [phone] Tn dical NAL 9 [facility] 2021-05-20 2021-05-20 Patient [facility] 1.2.840.114 [id number] Univers 00:00:00 00:00:00 Secure Msg Alan BERRY 350.1.13.10 ity of [facility] 4.2.7.2.686 [place] [phone] Tn dicny NAL [address] [place] [address] 2021-05-19 2021-05-19 Outpatient R CHRISTOFER, [facility] [id number] Univers 11:00:00 11:00:00 ALAN bolanos [facility] 2021-05-19 2021-05-19 Outpatient R CHRISTOFER, [facility] [id number] Univers 09:42:00 09:42:00 ALAN bolanos [facility] 2021-05-13 2021-05-13 Orders Doctor RASHID 1.2.840.114 [id number] Univers 00:00:00 00:00:00 Only Unassigned, AQUILES 350.1.13.10 ity of [place] [facility] 4.2.7.2.686 Brian as [phone] [address] 2021-05-09 2021-05-09 Outpatient R CHRISTOFER, [facility] [id number] Univers 10:40:00 11:09:07 ALAN bolanos [facility] 2021-05-09 2021-05-09 Office [facility] 1.2.840.114 [id number] Univers 10:40:00 11:09:07 Visit Alan BERRY 350.1.13.10 ity of [place] 4.2.7.2.686 [place] [phone] Tn dical NAL [address] [place] [address] 2021-05-01 2021-05-01 Orders Doctor RASHID 1.2.840.114 [id number] Univers 00:00:00 00:00:00 Only Unassigned, AQUILES 350.1.13.10 ity of [place] [facility] 4.2.7.2.686 Brian as [phone] [address] 2021-04-24 2021-04-24 Out[facility] [id number] Univers 08:00:00 08:00:00 PHILIP itjosias [facility] 2021-04-18 2021-04-18 Orders Doctor RASHID 1.2.840.114 [id number] Univers 00:00:00 00:00:00 Only Unassigned, AQUILES 350.1.13.10 ity of [place] [facility] 4.2.7.2.686 Brian as [phone] [address] 2021-04-10 2021-04-10 Ward [facility] 1.2.840.114 [id number] Univers 00:00:00 00:00:00 Management Dora BERRY 350.1.13.10 ity of [facility] 4.2.7.2.[place] [phone] [address] 2021-03-30 2021-03-30 Refgriselda DawsonMESCALERO [facility] 1.2.840.114 [id number] Univers 00:00:00 00:00:00 [facility] 350.1.13.10 it y of [place] 4.2.7.2.686 Brian as RUBEN?BLEA [phone] [address] OFFICE [facility] 2021-03-23 2021-03-23 Refgriselda WhatleyMESCALERO [facility] 1.2.840.114 [id number] Univers 00:00:00 00:00:00 Skinny BERRY 350.1.13.10 i ty of [place] 4.2.7.2.[place] [phone] [address] 2021-03-06 2021-03-06 Refgriselda DawsonM[facility]CALERO [facility] 1.2.840.114 [id number] Univers 00:00:00 00:00:00 Uriah HEALTH 350.1.13.10 it y of [place] 4.2.7.2.686 Brian as RUBEN?BLEA [phone] [address] OFFICE [facility] 2021-02-28 2021-02-28 Refill [facility] 1.2.840.114 [id number] Univers 00:00:00 00:00:00 Skinnyraul [facility] 350.1.13.10 i ty of [place] 4.2.7.2.686 [place] [facility] [phone] Tn velma [facility] 204 [facility] 2021-02-27 2021-02-27 Outpatient Antonia [facility] [id number] Univers 12:45:00 13:07:08 PHILIP vidal [facility] 2021-02-27 2021-02-27 Office [facility] 1.2.840.114 [id number] Univers 12:45:00 13:00:00 Visit [facility] 350.1.13.10 it y of [place] 4.2.7.2.686 Brian as RUBEN?BLEA [phone] [facility] 044 [facility] 2021-02-27 2021-02-27 Outpatient Antonia [facility] [id number] Univers 12:45:00 12:45:00 PHILIP [facility] 2021-02-24 2021-02-24 Outpatient Antonia [facility] [id number] Univers 09:45:00 09:45:00 [facility] 2021-02-20 2021-02-20 [facility] 1.2.840.114 [id number] Univers 00:00:00 00:00:00 Michael Londono [facility] 350.1.13.10 ity christal [place] 4.2.7.2.686 Brian as RUBEN?BLEA [phone] [facility] 092 [facility] 2021-02-17 2021-02-17 Outpatient MICHAEL LAM [facility] [id number] Univers 10:40:49 23:59:00 MICHAEL CASILLAS [facility] 2021-02-17 2021-02-17 [facility] 1.2.623.368 [id number] Univers 10:40:49 23:59:00 Encounter Michael Londono [facility] 350.1.13.10 ity [facility] 4.2.7.2.686 [place] [facility] [phone] [facility] [address] [place] 2021-02-10 2021-02-10 Refill [facility] 1.2.840.114 [id number] Univers 00:00:00 00:00:00 Philip HEALTH 350.1.13.10 it y of [facility] 4.2.7.2.686 Brian as RUBEN?BLEA [phone] [facility] PEDROZA [address] [place] MEDICAL OFFICE BUILDING 2021-01-28 2021-01-28 Office [facility] 1.2.840.114 [id number] Univers 10:00:00 10:47:59 Visit Michael [facility] 350.1.13.10 ity of [place] 4.2.7.2.686 Brian as RUBEN?BLEA [phone] [facility] 092 [facility] OFFICE [facility] 2021-01-28 2021-01-28 Outpatient R MICHAEL CASILLAS [facility] [id number] Univers 10:00:00 10:47:59 MICHAEL CASILLAS [facility] 2021-01-28 2021-01-28 Outpatient R MICHAEL CASILLAS [facility] [id number] Univers 10:00:00 10:00:00 MICHAEL CASILLAS josias [facility] 2021-01-28 2021-01-28 Orders Doctor RASHID 1.2.840.114 [id number] Univers 00:00:00 00:00:00 Only Unassigned, AQUILES 350.1.13.10 ity of [place] [facility] 4.2.7.2.686 Brian as [phone] [facility] [address] [place] 2021-01-23 2021-01-23 Telephone [facility] 1.2.483.585 [id number] Univers 00:00:00 00:00:00 Dora BERRY 350.1.13.10 ity of [place].2.7.2.686 [place] CH[place] [phone] Tn dicjefe HELM 204 [facility] 2021-01-21 2021-01-21 Telephone [facility] 1.2.840.114 [id number] Univers 00:00:00 00:00:00 Cyrus HEALTH 350.1.13.10 it y of [place] 4.2.7.2.686 Brian as RUBEN?BLEA [phone] Tn velma PEDROZA [address] [place] MEDICAL OFFICE [facility] 2021-01-17 2021-01-17 Refill [facility] 1.2.840.114 [id number] Univers 00:00:00 00:00:00 [place] [facility] 350.1.13.10 it y of [place] 4.2.7.2.686 Brian as RUBEN?BLEA [phone] Tn velma PEDROZA [address] [place] MEDICAL OFFICE [facility] 2021-01-13 2021-01-13 Office [facility] 1.2.840.114 [id number] Univers 09:54:13 10:09:13 Visit Philip [facility] 350..13.10 it y of [place] 4.2.7.2.686 Brian as RUBEN?BLEA [phone] [address] OFFICE [facility] 2021-01-13 2021-01-13 Outpatient R SAMIR [facility] [id number] Univers 09:45:00 09:45:00 [facility] 2021-01-13 2021-01-13 Outpatient R SAMIR [facility] [id number] Univers 09:45:00 09:45:00 [facility] 2021-01-02 2021-01-02 Telephone [facility] 1.2.293.824 [id number] Univers 00:00:00 00:00:00 [place].1.13.10 it y of [place] 4.2.7.2.686 Brian as RUBEN?BLEA [phone] Tn ni[address] OFFICE [facility] 2020-12-30 2020-12-30 Outpatient R KIMBERLEE [facility] [id number] Univers 15:30:00 15:36:48 [facility] 2020-12-30 2020-12-30 Outpatient R KIMBERLEE [facility] [id number] Univers 15:30:00 15:36:48 [facility] 2020-12-30 2020-12-30 Office [facility] 1.2.840.114 [id number] Univers 15:00:54 15:36:48 Visit Dora Erum BERRY 350.1.13.10 ity of [place] 4.2.7.2.686 [place] samia SAUNDERS [phone] Tn velma HELM 204 [facility] 2020-12-30 2020-12-30 Outpatient R KIMBERLEE [facility] [id number] Univers 15:30:00 15:30:00 DORA vidal [facility] 2020-12-25 2020-12-25 Outpatient R [facility] [id number] Univers 10:00:00 10:58:06 PHILIP marcy [facility] 2020-12-25 2020-12-25 Office [facility] 1.2.840.114 [id number] Univers 10:16:30 10:31:30 Visit Philip [facility] 350.1.13.10 it y of [facility] 4.2.7.2.686 Brian as RUBEN?BLEA [phone] Tn velma JAIN 044 [facility] OFFICE [facility] 2020-12-25 2020-12-25 Outpatient R [facility] [id number] Univers 10:00:00 10:00:00 PHILIP josias [facility] 2020-12-25 2020-12-25 Orders Doctor MIKE 1.2.840.114 [id number] Univers 00:00:00 00:00:00 Only Unassigned, AQUILES 350.1.13.10 ity of [place] [facility] 4.2.7.2.686 Brian as [phone] [address] 2020-12-18 2020-12-18 Outpatient R K[facility]BERLEEAC[facility] [id number] Univers 10:30:00 10:30:00 DORA vidal [facility] 2020-12-16 2020-12-16 Office [facility] 1.2.840.114 [id number] Univers 14:08:52 14:38:52 Visit Cyrus HEALTH 350.1.13.10 it y of [facility] 4.2.7.2.686 Brian as RUBEN?BLEA [phone] Tn velma PEDROZA 220 [facility] OFFICE [facility] 2020-12-16 2020-12-16 Outpatient R BEV, [facility] [id number] Univers 14:30:00 14:30:00 CYRUS ity [facility] 2020-12-16 2020-12-16 Outpatient R BEV, [facility] [id number] Univers 14:30:00 14:30:00 [facility] 2020-11-19 2020-11-19 Refill [facility] 1.2.840.114 [id number] Univers 00:00:00 00:00:00 Cyrus Berry 350.1.13.10 i ty of [place]2.7.2.686 [place] [phone] Tn dical [facility] 220 [facility] 2020-11-14 2020-11-14 Transition Ivey Keiladillon 1.2.840.114 [id number] Univers 00:00:00 00:00:00 of Care Jaylin Balderas 350.1.13.10 it y of [place] 4.2.7.2.686 [place] [phone] [facility] [address] 2020-11-12 2020-11-13 Emergency Kellie Evans [facility] 1.2.840. 114 [id number] Univers 17:49:00 17:20:00 Reese Hanson 350.1.13.10 ity of [place] 4.2.7.2.686 [facility] [phone] [facility] [address] [place] 2020-11-13 2020-11-13 Telephone [facility] 1.2.757.210 [id number] Univers 00:00:00 00:00:00 Alan Berry 350.1.13.10 ity of [place].2.7.2.686 [place] [phone] [facility] 059 [facility] 2020-11-12 2020-11-12 Telephone [facility] 1.2.840.114 [id number] Univers 00:00:00 00:00:00 Cyrus [facility] 350.1.13.10 it y of [place] 4.2.7.2.686 Brian as Ruben?Blea [phone] [facility] [address] [facility] Office [facility] 2020-08-19 2020-08-19 Telephone [facility] 1.2.501.890 [id number] Univers 00:00:00 00:00:00 Alan Kristi 350.1.13.10 ity of [place] 4.2.7.2.686 [place] [phone] Tn dical nal 059 [facility] 2020-08-19 2020-08-19 Orders Doctor RASHID 1.2.840.114 [id number] Univers 00:00:00 00:00:00 Only Unassigned, AQUILES 350.1.13.10 ity of [place] [facility] 4.2.7.2.686 Brian as [phone] [address] 2020-08-07 2020-08-07 Office [facility] 1.2.840.114 [id number] Univers 09:32:57 10:27:50 Visit Alan Berry 350.1.13.10 ity of [place] 4.2.7.2.686 [place] Profess[place] [phone] [facility]n [facility] 059 [facility] 2020-08-07 2020-08-07 Outpatient R [facility]ER[facility] [id number] Univers 09:40:00 09:40:00 ALAN vidal o [facility] 2020-06-26 2020-06-26 Outpatient R [facility] [id number] Univers 10:40:00 10:40:00 ALAN vidal o f [facility] 2020-06-12 2020-06-12 Office [facility] 1.2.840.114 [id number] Univers 10:20:19 10:45:04 Visit Dora Berry 350.1.13.10 ity of [place] 4.2.7.2.686 [place] [phone] Tn nijefe nal 204 [facility] 2020-06-12 2020-06-12 Outpatient R [facility] [id number] Univers 10:30:00 10:30:00 DORA vidal [facility] 2020-05-27 2020-05-27 Refill Samir [facility] 1.2.840.114 [id number] Univers 00:00:00 00:00:00 [facility] 350.1.13.10 it y of [place] 4.2.7.2.686 Brian as Professio [phone] Tn dical [facility] [address] [place] Office [facility] One 2020-05-17 2020-05-17 Patient Bev [facility] 1.2.840.114 [id number] Univers 00:00:00 00:00:00 Secure Msg Cyrus Berry 350.1.13.10 ity of [place] 4.2.7.2.686 [place] [phone] Tn dical [facility] 220 [facility] 2020-05-13 2020-05-13 Broadcast Field Supervisor 2, Adc Lab [facility] 1.2.840.114 [id number] Univers 14:16:02 14:31:02 Visit Krystianhongtommy Cyrus [place] 350.1.13.10 ity of [place] 4.2.7.2.686 [place] [phone] Tn [facility] 353 [facility] 2020-05-13 2020-05-13 Office [facility] 1.2.840.114 [id number] Univers 13:18:45 14:11:09 Visit Cyrus Berry 350.1.13.10 i ty of [place] 4.2.7.2.686 [place] Profess[place] [phone] Tn dical [facility] 220 [facility] 2020-05-13 2020-05-13 Outpatient R BEV [facility] [id number] Univers 13:30:00 13:30:00 CYRUS marcy [facility] 2020-04-24 2020-04-24 Orders Doctor RASHID 1.2.840.114 [id number] Univers 00:00:00 00:00:00 Only Unassigned, AQUILES 350.1.13.10 ity of [place] [facility] 4.2.7.2.686 Brian as [phone] [address] 2020-04-22 2020-04-22 Office [facility] 1.2.840.114 [id number] Univers 12:39:04 13:56:26 Visit Dora Berry 350.1.13.10 ity of [place] 4.2.7.2.686 [place] [phone] Tn [facility] 204 [facility] 2020-04-22 2020-04-22 Outpatient R [facility] [id number] Univers 13:00:00 13:00:00 DORA ity of [facility] 2020-04-10 2020-04-10 Refgriselda DawsonM[facility] 1.2.840.114 [id number] Univers 00:00:00 00:00:00 [facility] 350.1.13.10 it y of [place] 4.2.7.2.686 Brian as Professio [phone] [facility] [address] [place] Office [facility] One 2020-04-10 2020-04-10 Orders Doctor RASHID 1.2.840.114 [id number] Univers 00:00:00 00:00:00 Only Unassigned, AQUILES 350.1.13.10 ity of [place] [facility] 4.2.7.2.686 Brian as [phone] [address] 2020-04-08 2020-04-08 Telephone [facility] 1.2.020.286 [id number] Univers 00:00:00 00:00:00 Alan Berry 350.1.13.10 ity of [place] 4.2.7.2.686 [place] [phone] [facility] 059 [facility] 2020-04-08 2020-04-08 Telephone [facility] 1.2.678.004 [id number] Univers 00:00:00 00:00:00 Alan Berry 350.1.13.10 ity of [place] 4.2.7.2.686 [place] [phone] [facility]n [facility] 059 [facility] 2020-04-01 2020-04-01 Outpatient R CAHCORTA [facility] [id number] Univers 09:30:00 09:30:00 SKINNY ity of [facility] 2020-03-27 2020-03-27 Office [facility] 1.2.840.114 [id number] Univers 13:05:40 13:48:46 Visit Alan Berry 350.1.13.10 ity of [place] 4.2.7.2.686 [place] [phone] Tn dical nal 059 [facility] 2020-03-27 2020-03-27 Outpatient R CHRISTOFER, [facility] [id number] Univers 13:20:00 13:20:00 ALAN davidy o f [facility] 2020-03-19 2020-03-19 Outpatient R CHRISTOFER, [facility] [id number] Univers 09:40:00 09:40:00 LUANKO marcy o [facility] 2020-03-16 2020-03-16 Refill [facility] 1.2.840.114 [id number] Univers 00:00:00 00:00:00 [facility] 350.1.13.10 it y of [place] 4.2.7.2.686 Brian as Professio [phone] Tn dical nal [address] [place] Office [facility] One 2020-02-28 2020-02-28 Telephone [facility] 1.2.607.113 [id number] Univers 00:00:00 00:00:00 Dora BERRY 350.1.13.10 ity of [facility] 4.2.7.2.686 [place]ESS[place] [phone] Tn dical NAL 204 [facility] 2020-02-26 2020-02-26 Outpatient R BEV [facility] [id number] Univers 13:30:00 13:30:00 CYRUS ity of [facility] 2020-02-23 2020-02-23 Patient Stephan [facility] 1.2.840.114 [id number] Univers 00:00:00 00:00:00 Outreach Ambrocio HERRMANN 350.1.13.10 i ty of [facility] 4.2.7.2.686 [place] PAV[place]ION [phone] Tn dical [address] [place] 2020-02-22 2020-02-22 Office [facility] 1.2.840.114 [id number] Univers 14:35:25 16:11:21 Visit [facility] 350.1.13.10 it y of [place] 4.2.7.2.686 Brian as Professio [phone] Tn dical nal 044 [facility] 2020-02-22 2020-02-22 Outpatient R HAROON, [facility] [id number] Univers 15:00:00 15:00:00 RITA ity of [facility] 2020-02-21 2020-02-21 Refill Chacorta, [facility] 1.2.840.114 [id number] Univers 00:00:00 00:00:00 Skinnyraul Berry 350.1.13.10 i ty of [place] 4.2.7.2.686 [place] [phone] Tn dical nal 204 [facility] 2020-02-20 2020-02-20 Refill [facility] 1.2.840.114 [id number] Univers 00:00:00 00:00:00 Philip [employer] 350.1.13.10 it y of [place] 4.2.7.2.686 Brian as Professio [phone] Tn dicny nal 044 [facility] 2020-02-15 2020-02-15 Patient Doctor [facility] 1.2.840.114 [id number] Univers 00:00:00 00:00:00 Secure Msg Unassigned, KRISTI 350.1.13.10 ity of [place] 4.2.7.2.686 [place]ESS[place] [phone] Tn dical NAL 059 [facility] 2020-02-14 2020-02-14 Broadcast Field Supervisor 2, Adc Lab [facility] 1.2.840.114 [id number] Univers 14:28:03 14:43:03 Visit Alan Beaulieu 350.1.13.10 ity of [place] 4.2.7.2.686 [place] [phone] Tn dical nal 353 [facility] 2020-02-14 2020-02-14 Office Christofer [facility] 1.2.840.114 [id number] Univers 13:38:40 13:58:40 Visit Alan Berry 350.1.13.10 ity of [place] 4.2.7.2.686 [place] [phone] [facility] 059 [facility] 2020-02-14 2020-02-14 Outpatient R CHRISTOFER [facility] [id number] Univers 13:40:00 13:40:00 ALAN hernandezy o f [facility] 2020-02-14 2020-02-14 Orders Doctor RASHID 1.2.840.114 [id number] Univers 00:00:00 00:00:00 Only Unassigned, AQUILES 350.1.13.10 ity of [facility] 4.2.7.2.686 Brian as [phone] [address] 2020-02-07 2020-02-07 [facility] 1.2.840.114 [id number] Univers 00:00:00 00:00:00 Alan Berry 350.1.13.10 ity of [place] 4.2.7.2.686 [place] Profess[place] [phone] [address] 2020-02-01 2020-02-01 [facility] 1.2.840.114 [id number] Univers 00:00:00 00:00:00 Alan Berry 350.1.13.10 ity of [place] 4.2.7.2.686 [place] [phone] [address] 2020-01-30 2020-01-30 Outpatient R [facility] [id number] Univers 13:20:00 13:20:00 KALINAKENKO hernandezjosias o f [facility] 2020-01-24 2020-01-24 Micha [facility]ño[facility] 1.2.840.114 [id number] Univers 00:00:00 00:00:00 Rita [facility] 350.1.13.10 it y of [place] 4.2.7.2.686 Brian as Professio [phone] [facility] 044 [facility] 2020-01-17 2020-01-17 Orders Doctor RASHID 1.2.840.114 [id number] Univers 00:00:00 00:00:00 Only Unassigned, AQUILES 350.1.13.10 ity of [place] [facility] 4.2.7.2.686 Brian as [phone] [address] 2020-01-09 2020-01-09 Refill [facility] 1.2.840.114 [id number] Univers 00:00:00 00:00:00 Alan Berry 350.1.13.10 ity of [place] 4.2.7.2.686 [place] [phone] Tn dical nal 059 [facility] 2020-01-08 2020-01-08 Office [facility] 1.2.840.114 [id number] Univers 14:35:37 15:22:08 Visit Dora Danielson Kristi 350.1.13.10 ity of [place] 4.2.7.2.686 [place] [phone] Tn dical nal 204 [facility] 2020-01-08 2020-01-08 Office [facility] 1.2.840.114 [id number] Univers 13:22:21 14:29:18 Visit Alan Berry 350.1.13.10 ity of [place] 4.2.7.2.686 [place] [phone] Tn dicny nal 059 [facility] 2020-01-08 2020-01-08 Outpatient [facility] [id number] Univers 13:40:00 13:40:00 ALAN vidal o f [facility] 2020-01-08 2020-01-08 Orders Doctor MIKE 1.2.840.114 [id number] Univers 00:00:00 00:00:00 Only Unassigned, AQUILES 350.1.13.10 ity of [place] [facility] 4.2.7.2.686 Brian as [phone] [address] 2019-12-29 2019-12-29 [facility] 1.2.840.114 [id number] Univers 00:00:00 00:00:00 [facility] 350.1.13.10 it y of [place] 4.2.7.2.686 Brian as Professio [phone] [facility] nal 0[address] Office [facility] 2019-12-19 2019-12-19 Telephone [facility], [facility] [id number] Univers 00:00:00 00:00:00 [facility] 350.1.13.10 [place] [phone] [place] [id number] [place] Office [facility] 2019-12-15 2019-12-15 Broadcast Field Supervisor Pc, Adc Vascular Room 1 - [facility] 1.2.840.114 [id number] Univers 09:40:58 11:16:28 Visit Demian Theodore 350.1.13. 10 [place] [phone] [address] 2019-12-15 2019-12-15 Appointmen Pc, Adc Vascular Room 1 - [facility] 1.2.840.114 [id number] Univers 09:42:09 10:42:09 t Demian Theodore 350.1.13. 10 [place] [phone] [address] 2019-12-15 2019-12-15 Laboratory Pc, Adc Echo Room 1 - [facility] 1 .2.840.114 [id number] Univers 08:53:31 09:53:31 Only Demian Theodore 350.1.13. 10 [place] [phone] [address] 2019-12-15 2019-12-15 Outpatient R [facility] [id number] Univers 09:00:00 09:00:00 ity of [facility] 2019-12-07 2019-12-07 Orders Doctor MIKE 1.2.840.114 [id number] Univers 00:00:00 00:00:00 Only Unassigned, AQUILES 350.1.13.10 ity of [place] [facility] 4.2.7.2.686 Brian as [phone] [place] [address] [place] 2019-12-07 2019-12-07 [facility] 1.2.840.114 [id number] Univers 00:00:00 00:00:00 Secure Msg Alan NGUYỄNAJ 350.1.13.10 ity of [place] [phone] Tn dical NAL 059 [facility] 2019-12-06 2019-12-06 Broadcast Field Supervisor 2, Adc Lab [facility] 1.2.840.114 [id number] Univers 15:04:38 15:19:38 Visit ChristoferAlan 350.1.13.10 [place] [phone] Tn dical alicja 353 [facility] 2019-12-06 2019-12-06 Office [facility] 1.2.840.114 [id number] Univers 13:55:15 14:56:18 Visit Alan Berry 350.1.13.10 ity [place] [phone] Tn dical nal 059 [facility] 2019-12-06 2019-12-06 [facility] [id number] Univers 13:40:00 13:40:00 ALAN hernandezy o f [facility] 2019-12-04 2019-12-04 [facility] 1.2.840.114 [id number] Univers 09:57:56 10:47:23 Visit Skinny Berry 350.1.13.10 i [place] [phone] Tn dical nal 204 [facility] [place] 2019-12-04 2019-12-04 Outpatient R CHACORTA [facility] [id number] Univers 10:00:00 10:00:00 SKINNY marcy [facility] 2019-12-04 2019-12-04 Micha Patiño [facility] 1.2.840.114 [id number] Univers 00:00:00 00:00:00 [facility] 350.1.13.10 it y of [place] 4.2.7.2.686 Brian as Professio [phone] Tn dic[address] 2019-11-15 2019-11-15 Telephone Haroon [facility] 1.2.143.976 [id number] Univers 00:00:00 00:00:00 Rita Mullen 350.1.13.10 it y of [place] 4.2.7.2.686 [place] as Professio [phone] [address] 2019-11-09 2019-11-10 Office Haroon [facility] 1.2.840.114 [id number] Univers 12:49:44 09:31:32 Visit Rita Mullen 350.1.13.10 it y of [place] 4.2.7.2.686 [place] Professio [phone] [address] 2019-11-10 2019-11-10 [facility] 1.2.840.114 [id number] Univers 00:00:00 00:00:00 [facility] 350.1.13.10 it y of [place] 4.2.7.2.686 [place] as Professio [phone] [address] 2019-11-09 2019-11-09 [facility] 1.2.840.114 [id number] Univers 17:57:00 23:23:00 Shinta Kristi 350.1.13.10 i [place] [phone] [address] 2019-11-09 2019-11-09 Emergency [facility] [id number] Univers 17:57:00 23:23:00 SHINTA ity of [facility] 2019-11-09 2019-11-09 Broadcast Field Supervisor Lab, Adc Fam Pob I [facility] 1.2. 840.114 [id number] Univers 14:14:20 14:24:20 Visit Rita Patiño 350.1.13.10 ity of [place] 4.2.7.2.686 [place] as Professio [phone] [address] 2019-11-09 2019-11-09 [facility] [id number] Univers 13:00:00 13:00:00 RITA vidal [facility] 2019-10-31 2019-10-31 Urgent Provider, [facility] 1.2.840.114 [id number] Univers 16:00:27 16:20:27 Rell Rita Patiño 350.1.13.10 ity of [place] 4.2.7.2.686 Brian as Professio [phone] Tn dical [address] Office [facility] [employer] 2019-10-31 2019-10-31 Outpatient R TAYLORJOSE ALBERTO [facility] [id number] Univers 15:40:00 15:40:00 RITA vidal [facility] 2019-10-31 2019-10-31 Orders Doctor RASHID 1.2.840.114 [id number] Univers 00:00:00 00:00:00 Only Unassigned, AQUILES 350.1.13.10 ity of [place] [facility] 4.2.7.2.686 Brian as [phone] [address] 2019-10-21 2019-10-21 Orders Doctor RASHID 1.2.840.114 [id number] Univers 00:00:00 00:00:00 Only Unassigned, AQUILES 350.1.13.10 ity of [place] [facility] 4.2.7.2.686 Brian as [phone] [address] Results Test Description Test Time Test Comments Results Result Comments Source GLYCOSYLATED HEMOGLOBIN (A1C) 2022-09-01 18:37:55 Test Item Value Reference Range Interpretation Comme nts HGB A1C (test code = 4548-4) 7.3 % 4.0-5.7 H JOSEPHINE (test code = JOSEPHINE) Reference RangesNormal: <5.7%Prediabetes: 5.7 - 6.4%Diabetes: > 6.5% Lab Interpretation (test code = Abnormal 34482-5) [facility] (NA, K, CL, CO2, GLUCOSE, BUN, CREATININE, CA)2022-06-11 18:56:43 Test Item Value Reference Range Interpretation Comments NA (test code = 138 mmol/L 135-145 2992009409) K (test code = 4.2 mmol/L 3.5-5.0 9969639072) CL (test code = 100 mmol/L 98-108 4072629554) CO2 TOTAL (test code = 34 mmol/L 23-31 H 9506250417) AGAP (test code = 4 2-16 1285965429) BUN (test code = 31 mg/dL 7-23 H 8939741406) GLUCOSE (test code = 226 mg/dL 70-110 H 6786520627) CREATININE (test code = 1.27 mg/dL 0.60-1.25 H 7591387999) CALCIUM (test code = 9.2 mg/dL 8.6-10.6 1254129262) eGFR (test code = 54.0 mL/min/1.73m2 8250653714) JOSEPHINE (test code = JOSEPHINE) Association of [...] tests). Lab Interpretation Abnormal (test code = 42401-1) [facility] METABOLIC PANEL (NA, K, CL, CO2, GLUCOSE, BUN, CREATININE, CA)2022-06-11 18:56:43 Test Item Value Reference Range Interpretation Comments NA (test code = 138 mmol/L 135-145 8832206926) K (test code = 4.2 mmol/L 3.5-5.0 5920223302) CL (test code = 100 mmol/L 98-108 7649390870) CO2 TOTAL (test code = 34 mmol/L 23-31 H 0495696325) AGAP (test code = 4 2-16 4314127302) BUN (test code = 31 mg/dL 7-23 H 2823832044) GLUCOSE (test code = 226 mg/dL 70-110 H 7402015564) CREATININE (test code = 1.27 mg/dL 0.60-1.25 H 7150772287) CALCIUM (test code = 9.2 mg/dL 8.6-10.6 8127482101) eGFR (test code = 54.0 mL/min/1.73m2 6270536781) JOSEPHINE (test code = JOSEPHINE) Association of [...] tests). Lab Interpretation Abnormal (test code = 24899-6) [facility]IMULATING [id number] 20:40:05 Test Item Value Reference Range Interpretation Comments TSH (test code = 3.26 See_Comment [Automated message] 8598187398) The system [employer] generated this result transmitted ref erence range: 0.45 - 4 .70 mIU/L. The refe rence range was not u sed to interpret this result as normal/abnor mal. Lab Interpretation (test Normal code = 09985-5) [facility] [id number] 20:26:25 Test Item Value Reference Range Interpretation Comments FREE T4 (test code = 1.24 See_Comment [Autom ated message] 1022840378) The system [employer] generated this result transmitted ref erence range: 0.78 - 2 .20 ng/dL:. The ref erence range was not u sed to interpret this result as normal/abnor mal. Lab Interpretation (test Normal code = 46732-2) [facility]AL [id number] 20:18:39 Test Item Value Reference Range Interpretation Comments NT-proBNP (test code = 785 pg/mL <=450 H 4852984156) JOSEPHINE (test code = JOSEPHINE) Biotin has been reported to cause a negative bias, interpret results relative to patient's use of biotin. Lab Interpretation (test Abnormal code = 63020-3) [facility]OLIC PAN[facility] (95491)2022-06-05 20:16:21 Test Item Value Reference Range Interpretation Comments NA (test code = 142 mmol/L 135-145 2933945932) K (test code = 4.5 mmol/L 3.5-5.0 7453385043) CL (test code = 105 mmol/L 98-108 1217806922) CO2 TOTAL (test code = 26 mmol/L 23-31 0802342195) AGAP (test code = 11 2-16 2320627532) BUN (test code = 22 mg/dL 7-23 5328387690) GLUCOSE (test code = 155 mg/dL 70-110 H 2406905504) CREATININE (test code = 0.96 mg/dL 0.60-1.25 4447475076) TOTAL BILI (test code = 0.5 mg/dL 0.1-1.3 1632941902) CALCIUM (test code = 9.5 mg/dL 8.6-10.6 8686855708) T PROTEIN (test code = 7.0 g/dL 6.3-8.2 0458592317) ALBUMIN (test code = 4.0 g/dL 3.5-5.0 4323881668) ALK PHOS (test code = 72 U/L 34-122 7932662141) ALTv (test code = 26 U/L 5-50 1742-6) AST(SGOT) (test code = 25 U/L 13-40 6504865743) eGFR (test code = 74.6 mL/min/1.73m2 0240260613) JOSEPHINE (test code = JOSEPHINE) Association of [...] tests). Lab Interpretation Abnormal (test code = 98141-6) [facility] HospitalLIPID PANEL (29916)(TOTAL CHOLESTEROL, TRIGLYCERIDES, HDL)2022-06-05 20:11:42 Test Item Value Reference Range Interpretation Comments CHOL (test code = 0343830248) 177 mg/dL 120-200 HDL (test code = 0816553711) 38 mg/dL >=40 L HDLC RATIO (test code = 9029820016) 4.7 <=5.0 TRIG (test code = 5656242274) 174 mg/dL 30-170 H LDL CHOL (test code = 90041-3) 104 mg/dL <=160 VLDL (test code = 9621709031) 35 mg/dL 5-60 Lab Interpretation (test code = Abnormal 29212-9) [facility] WITH [id number] 19:38:34 Test Item Value Reference Range Interpretation Comments WBC (test code = 9.70 See_Comment [Automated 7414-2) message] The sy stem which generated this result transmitted reference range : 4.20 - 10.70 10*3/?L. The reference range was not used to interpret this result as normal/abnormal . RBC (test code = 4.76 See_Comment [Automated 400-8) message] The sy stem which generated this [...] RDW-SD (test code = 50.5 fL 38.5-51.6 03618-8) RDW-CV (test code = 14.8 % 12.1-15.4 788-0) PLT (test code = 159 See_Comment [Automated 777-3) message] The sy stem which generated this result transmitted reference range : 150 - 328 10*3/ ?L. The reference r ike was not used to interpret this result as normal/abnormal . MPV (test code = 11.9 fL 9.8-13.0 62096-4) NRBC/100 WBC (test 0.0 See_Comment [Automat ed code = 5209286105) message] The system which generated this result transmitted reference range : 0.0 - 10.0 /100 WBCs. The refer ence range was not u sed to interpret th is result as normal/abnormal . NRBC x10^3 (test code See_Comment [Auto mated = 1152994277) message] The s ystem which generated this result transmitted reference range : 10*3/?L. The reference range was not used to interpret this result as normal/abnormal . GRAN MAT (NEUT) % 53.0 % (test code = 770-8) IMM GRAN % (test code 0.30 % = 7449363672) LYMPH % (test code = 30.6 % 736-9) MONO % (test code = 10.6 % 5905-5) EOS % (test code = 4.7 % 713-8) BASO % (test code = 0.8 % 706-2) GRAN MAT x10^3(ANC) 5.13 10*3/uL 1.99-6.95 (test code = 7280594451) IMM GRAN x10^3 (test 0.03 10*3/uL 0.00-0.06 code = 9561122298) LYMPH x10^3 (test code 2.97 10*3/uL 1.09-3.23 = 731-0) MONO x10^3 (test code 1.03 10*3/uL 0.36-1.02 H = 742-7) EOS x10^3 (test code = 0.46 10*3/uL 0.06-0.53 711-2) BASO x10^3 (test code 0.08 10*3/uL 0.01-0.09 = 704-7) Lab Interpretation Abnormal (test code = 44058-9) [facility] WITH [id number] 19:38:34 Test Item Value Reference Range Interpretation [...] RDW-SD (test code = 50.5 fL 38.5-51.6 42001-4) RDW-CV (test code = 14.8 % 12.1-15.4 788-0) PLT (test code = 159 See_Comment [Automated 777-3) message] The sy stem which generated this result transmitted reference range : 150 - 328 10*3/ ?L. The reference r ike was not used to interpret this result as normal/abnormal . MPV (test code = 11.9 fL 9.8-13.0 05761-5) NRBC/100 WBC (test 0.0 See_Comment [Automat ed code = 9339100567) message] The system which generated this result transmitted reference range : 0.0 - 10.0 /100 WBCs. The refer ence range was not u sed to interpret th is result as normal/abnormal . NRBC x10^3 (test code See_Comment [Auto mated = 4515871714) message] The s ystem which generated this result transmitted reference range : 10*3/?L. The reference range was not used to interpret this result as normal/abnormal . GRAN MAT (NEUT) % 53.0 % (test code = 770-8) IMM GRAN % (test code 0.30 % = 4692186782) LYMPH % (test code = 30.6 % 736-9) MONO % (test code = 10.6 % 5905-5) EOS % (test code = 4.7 % 713-8) BASO % (test code = 0.8 % 706-2) GRAN MAT x10^3(ANC) 5.13 10*3/uL 1.99-6.95 (test code = 9944073114) IMM GRAN x10^3 (test 0.03 10*3/uL 0.00-0.06 code = 4184560782) LYMPH x10^3 (test code 2.97 10*3/uL 1.09-3.23 = 731-0) MONO x10^3 (test code 1.03 10*3/uL 0.36-1.02 H = 742-7) EOS x10^3 (test code = 0.46 10*3/uL 0.06-0.53 711-2) BASO x10^3 (test code 0.08 10*3/uL 0.01-0.09 = 704-7) Lab Interpretation Abnormal (test code = 45284-0) [facility] HEMOGLOBIN A1C [id number] 20:57:00 Test Item Value Reference Range Interpretation Comments POCT HBA1C (test code = 4548-4) 7.4 % 4-6 A Lab Interpretation (test code = Abnormal 17218-1) [facility] HEMOGLOBIN A1C [id number] 20:57:00 Test Item Value Reference Range Interpretation Comments POCT HBA1C (test code = 4548-4) 7.4 % 4-6 A Lab Interpretation (test code = Abnormal 36713-0) [facility] URINALYSIS W SPECIFIC [id number] 16:12:00 Test Item Value Reference Range Interpretation [...] U APPEAR (test code = clear 3267) [facility] URINALYSIS W SPECIFIC [id number] 16:12:00 Test Item Value Reference Range Interpretation [...] U APPEAR (test code = clear 3267) [facility] GLUCOSE (AUTOMATED)2021-12-21 19:15:33 Test Item Value Reference Range Interpretation Comments POCT GLU (test code = 2867508106) 235 mg/dL 70-110 H Lab Interpretation (test code = Abnormal 94838-1) [facility] GLUCOSE (AUTOMATED)2021-12-21 19:15:28 Test Item Value Reference Range Interpretation Comments POCT GLU (test code = 1831773777) 189 mg/dL 70-110 H Lab Interpretation (test code = Abnormal 53479-0) [facility] (NA, K, CL, CO2, GLUCOSE, BUN, CREATININE, CA)2021-12-21 10:15:33 Test Item Value Reference Range Interpretation Comments NA (test code = 137 mmol/L 135-145 6142911884) K (test code = 4.0 mmol/L 3.5-5.0 9796084030) CL (test code = 102 mmol/L 98-108 4758258711) CO2 TOTAL (test code = 28 mmol/L 23-31 3760696708) AGAP (test code = 2-16 6569832822) BUN (test code = 25 mg/dL 7-23 H 4700014509) GLUCOSE (test code = 181 mg/dL 70-110 H 3530956522) CREATININE (test code = 1.25 mg/dL 0.60-1.25 4055851892) CALCIUM (test code = 8.5 mg/dL 8.6-10.6 L 6967114005) eGFR (test code = mL/min/1.73m2 6676234535) JOSEPHINE (test code = JOSEPHINE) Association of [...] tests). Lab Interpretation Abnormal (test code = 42393-4) [facility] WITH [id number] 10:01:53 Test Item Value Reference Range Interpretation [...] RDW-SD (test code = 46.1 fL 38.5-51.6 89083-2) RDW-CV (test code = 13.6 % 12.1-15.4 788-0) PLT (test code = See_Comment L [Automated 777-3) message] The sy stem which generated this result transmitted reference range : 150 - 328 10*3/ ?L. The reference r ike was not used to interpret this result as normal/abnormal . MPV (test code = 10.8 fL 9.8-13.0 18953-8) NRBC/100 WBC (test See_Comment [Automat ed code = 7787767084) message] The system which generated this result transmitted reference range : 0.0 - 10.0 /100 WBCs. The refer ence range was not u sed to interpret th is result as normal/abnormal . NRBC x10^3 (test code See_Comment [Auto mated = 1036896171) message] The s ystem which generated this result transmitted reference range : 10*3/?L. The reference range was not used to interpret this result as normal/abnormal . GRAN MAT (NEUT) % 52.4 % (test code = 770-8) IMM GRAN % (test code 0.40 % = 8022630097) LYMPH % (test code = 31.3 % 736-9) MONO % (test code = 9.5 % 5905-5) EOS % (test code = 5.7 % 713-8) BASO % (test code = 0.7 % 706-2) GRAN MAT x10^3(ANC) 4.03 10*3/uL 1.99-6.95 (test code = 9176194183) IMM GRAN x10^3 (test 0.03 10*3/uL 0.00-0.06 code = 8346969823) LYMPH x10^3 (test code 2.40 10*3/uL 1.09-3.23 = 731-0) MONO x10^3 (test code 0.73 10*3/uL 0.36-1.02 = 742-7) EOS x10^3 (test code = 0.44 10*3/uL 0.06-0.53 711-2) BASO x10^3 (test code 0.05 10*3/uL 0.01-0.09 = 704-7) Lab Interpretation Abnormal (test code = 05918-0) [facility] GLUCOSE (AUTOMATED)2021-12-21 00:58:59 Test Item Value Reference Range Interpretation Comments POCT GLU (test code = 8850049724) 194 mg/dL 70-110 H Lab Interpretation (test code = Abnormal 50528-3) [facility] GLUCOSE (AUTOMATED)2021-12-20 21:29:16 Test Item Value Reference Range Interpretation Comments POCT GLU (test code = 9160177320) 210 mg/dL 70-110 H Lab Interpretation (test code = Abnormal 86016-7) [facility] GLUCOSE (AUTOMATED)2021-12-20 16:26:45 Test Item Value Reference Range Interpretation Comments POCT GLU (test code = 5762197840) 311 mg/dL 70-110 H Lab Interpretation (test code = Abnormal 99170-3) [facility] GLUCOSE (AUTOMATED)2021-12-20 12:55:27 Test Item Value Reference Range Interpretation Comments POCT GLU (test code = 6562860222) 208 mg/dL 70-110 H Lab Interpretation (test code = Abnormal 48534-5) [facility] GLUCOSE (AUTOMATED)2021-12-20 12:55:27 Test Item Value Reference Range Interpretation Comments POCT GLU (test code = 5872392877) 232 mg/dL 70-110 H Lab Interpretation (test code = Abnormal 83956-6) [facility] GLUCOSE (AUTOMATED)2021-12-20 12:42:07 Test Item Value Reference Range Interpretation Comments POCT GLU (test code = 2365470470) 169 mg/dL 70-110 H Lab Interpretation (test code = Abnormal 71278-2) [facility]cos[facility] Hemoglobin (A1C)2021-12-20 01:00:21 Test Item Value Reference Range Interpretation Comments HGB A1C (test code = 8.3 % 4.0-5.7 H 4548-4) JOSEPHINE (test code = JOSEPHINE) Reference RangesNormal: <5.7%Prediabetes: 5.7 - 6.4%Diabetes: > 6.5% Lab Interpretation (test Abnormal code = 47267-7) [facility] Hospital[facility]id [facility] (Total Cholesterol, Triglycerides, HDL) - [id number] 19:41:58 Test Item Value Reference Range Interpretation Comments CHOL (test code = 160 mg/dL 120-200 0137251311) HDL (test code = 35 mg/dL See_Comment L [Automated message] 5489197203) The system [employer] generated this result transmit nae reference range : >=40. The refer ence range was not u sed to interpret th is result as normal/abnormal . HDLC RATIO (test code = See_Comment [Au tomated message] 2515906437) The system [employer] generated this result transmit nae reference range : <=5.0. The refe rence range was not u sed to interpret th is result as normal/abnormal . TRIG (test code = 130 mg/dL 30-170 0333430114) LDL CHOL (test code = 99 mg/dL See_Comment [Auto mated message] 71313-4) The system [employer] generated this result transmit nae reference range : <=160. The refe rence range was not u sed to interpret th is result as normal/abnormal . VLDL (test code = 26 mg/dL 5-60 8204481133) Lab Interpretation (test Abnormal code = 92871-6) [facility] HospitalLactic Acid Whole [id number] 18:19:29 Test Item Value Reference Range Interpretation Comments LACTIC ACID (test code = 1.97 mmol/L 0.50-2.20 1278002574) Lab Interpretation (test code = Normal 84709-3) [facility] HospitalETHANOL2022-11-04 16:09:56 ALCOHOL<10mg/dL12/19/2021 11:09 AM [facility]<10 Qmujlsfl06-113 Toxic>100 Depression of CIVIL CLERK>400 Fatalities ReportedUnTitus [facility] CenterACTIVATED PARTIAL THRMPLAS ZAIRE 2021-12-19 15:48:41 Test Item Value Reference Range Interpretation Comments APTT Patient (test See_Comment [Automat ed code = 3173-2) message] The system which generated this result transmitted reference range : 23 - 38 Seconds . The reference range was not used to interpr et this result as normal/abnormal . JOSEPHINE (test code = JOSEPHINE) The [facility] patient population mean normal value for aPTT is 30 seconds. Lab Interpretation Normal (test code = 93571-0) [facility] HospitalTROPONIN [id number] 15:47:19 Test Item Value Reference Interpretation Comments Range TROPONIN I (test 0.007 ng/mL See_Comment [Automated code = 1964266535) message] The system which generated this result [...] biotin. Lab Interpretation Normal (test code = 04450-3) [facility] HospitalPROTHROMBIN TIME / [id number] 15:46:39 Test Item Value Reference Range Interpretation [...] tions. Lab Interpretation (test Normal code = 17680-8) [facility] HospitalN-TERMINAL [id number] 15:44:04 Test Item Value Reference Range Interpretation Comments NT-proBNP (test code 214 pg/mL See_Comment [Autom ated = 9738766042) message] The system which generated this result transmitted reference range : <=450. The reference range was not used to interpret this result as normal/abnormal . JOSEPHINE (test code = JOSEPHINE) Biotin has been reported to cause a negative bias, interpret results relative to patient's use of biotin. Lab Interpretation Normal (test code = 55306-1) [facility] HospitalCOMP. METABOLIC PANEL (75017)2021-12-19 15:35:18 Test Item Value Reference Range Interpretation Comments NA (test code = 142 mmol/L 135-145 3419817899) K (test code = 4.1 mmol/L 3.5-5.0 2146534800) CL (test code = 104 mmol/L 98-108 8175055722) CO2 TOTAL (test code = 27 mmol/L 23-31 8138877845) AGAP (test code = 2-16 2418782799) BUN (test code = 32 mg/dL 7-23 H 3386871808) GLUCOSE (test code = 164 mg/dL 70-110 H 4032133857) CREATININE (test code = 1.22 mg/dL 0.60-1.25 9345524393) TOTAL BILI (test code = 0.4 mg/dL 0.1-1.5 3601468772) CALCIUM (test code = 9.2 mg/dL 8.6-10.6 1313428488) T PROTEIN (test code = 6.7 g/dL 6.3-8.2 3949460857) ALBUMIN (test code = 4.0 g/dL 3.5-5.0 0490920207) ALK PHOS (test code = 87 U/L 34-122 7994547866) ALTv (test code = 34 U/L 5-50 1742-6) AST(SGOT) (test code = 31 U/L 13-40 7759509863) eGFR (test code = mL/min/1.73m2 3639137719) JOSEPHINE (test code = JOSEPHINE) Association of [...] tests). Lab Interpretation Abnormal (test code = 42418-3) [facility] WITH [id number] 15:29:39 Test Item Value Reference Range Interpretation [...] RDW-SD (test code = 46.5 fL 38.5-51.6 70360-9) RDW-CV (test code = 13.7 % 12.1-15.4 788-0) PLT (test code = See_Comment [Automated 777-3) message] The sy stem which generated this result transmitted reference range : 150 - 328 10*3/ ?L. The reference r ike was not used to interpret this result as normal/abnormal . MPV (test code = 11.2 fL 9.8-13.0 42390-9) NRBC/100 WBC (test See_Comment [Automat ed code = 2621706898) message] The system which generated this result transmitted reference range : 0.0 - 10.0 /100 WBCs. The refer ence range was not u sed to interpret th is result as normal/abnormal . NRBC x10^3 (test code See_Comment [Auto mated = 1629397335) message] The s ystem which generated this result transmitted reference range : 10*3/?L. The reference range was not used to interpret this result as normal/abnormal . GRAN MAT (NEUT) % 69.4 % (test code = 770-8) IMM GRAN % (test code 0.40 % = 8883410009) LYMPH % (test code = 20.6 % 736-9) MONO % (test code = 7.6 % 5905-5) EOS % (test code = 1.4 % 713-8) BASO % (test code = 0.6 % 706-2) GRAN MAT x10^3(ANC) 7.38 10*3/uL 1.99-6.95 H (test code = 5416301622) IMM GRAN x10^3 (test 0.04 10*3/uL 0.00-0.06 code = 4728521643) LYMPH x10^3 (test code 2.19 10*3/uL 1.09-3.23 = 731-0) MONO x10^3 (test code 0.81 10*3/uL 0.36-1.02 = 742-7) EOS x10^3 (test code = 0.15 10*3/uL 0.06-0.53 711-2) BASO x10^3 (test code 0.06 10*3/uL 0.01-0.09 = 704-7) Lab Interpretation Abnormal (test code = 98666-0) [facility] ([facility])2021-12-19 14:53:52 Test Item Value Reference Range Interpretation Comments POCT GLU (test code = 6470547778) 160 mg/dL 70-110 H Lab Interpretation (test code = Abnormal 90201-9) [facility]
[2022-11-19 00:27] LABS: Absolute Lymphocytes (CBC) 4.1 K/uL (0.7-4.9); Hematocrit 38.6 % (39.6-49.0); Lymphocytes % 41.8 % (15.3-44.8); MCV 94.1 fL (80-100); MPV 8.5 fL (7.6-11.3); Platelets 193 thou/uL (152-406)
[2022-11-19 00:34] LABS: Protime INR 0.93
[2022-11-19 00:58] LABS: ALT/SGPT 36 U/L (16-61); AST/SGOT 20 U/L (15-37); Albumin 3.1 g/dL (3.4-5.0); Alkaline Phosphatase 81 U/L (45-117); BUN Blood Urea Nitrogen 40 mg/dL (7-18); Bicarbonate 29 mEq/L (21-32); Bilirubin Direct < 0.1 mg/dL (0-0.2); Bilirubin Indirect, Calculated ND mg/dL (0.2-0.8); Bilirubin Total 0.2 mg/dL (0.2-1.0); Glomerular Filtration Rate 37 ml/min (=/>90); Glucose Level 314 mg/dL (74-106); Magnesium 2.4 mg/dL (1.6-2.4); NT PRO-BNP 298 pg/mL (<450); Potassium 4.3 mEq/L (3.5-5.1); Protein, Total 7.2 g/dL (6.4-8.2); Sodium Level 135 mEq/L (136-145); Troponin High Sensitivity 12.1 pg/mL (<58.9)
[2022-11-19] MEDS ORDERED: NA CHLORIDE 0.9% 1,000 ML ONE ×2 (01:28→01:51)
--- NOTE | 2022-11-19 01:46 | EDPHYS ---
Physician Documentation [facility] Name: Romeo Liao Age: 87 yrs Sex: Male : 1935 Arrival Date: 11/18/2022 Time: 23:42 Bed 4 Private MD: ED Physician Rito Alcantar HPI: 11/19 00:15 This 87 yrs old Male presents to ER via EMS with complaints of syncope, fall, sp4 unresponsiveness . 01:33 Patient is a very pleasant 87-year-old male who presents with syncopal episode from sp4 home and also reported hyperventilation. Patient reports that he stood up to urinate and the next thing he recalls he woke up in an ambulance. EMS was called by the home health anesthesia assistant who found patient on the floor with low respiratory rate. Patient was reportedly unresponsive. Home health anesthesia assistant reported that patient fell to the floor. EMS arrived and administered oxygen after which patient became responsive. On arrival patient has irregular heart rate patient has stable blood pressure. EKG reveals left bundle branch block. Patient is alert and oriented and able to answer questions.. Patient has prior history of syncope when he was assessed here in August. . 01:35 . sp4 Historical: - Allergies: 00:07 No Known Allergies; jb4 - PMHx: 00:07 diabetes mellitus; High Cholesterol; HTN; over active bladder; jb4 - PSHx: 00:07 back; neck; jb4 - Immunization history:: Adult Immunizations up to date. - Social history:: Smoking status: Patient denies any tobacco usage or history of. - Family history:: not pertinent. ROS: 01:35 Constitutional: Negative for fever, chills, and weight loss, positive for sp4 generalized weakness, positive for syncope, positive full at home. 01:35 All other systems are negative, Exam: 01:35 Constitutional: This is a well developed, well nourished patient who is awake, alert, sp4 and in no acute distress. Patient is frail elderly male, with generalized weakness, signs of decreased mobility, signs of physical deconditioning, overweight, posterior neck scar from prior cervical fusion, lower back scar from prior lumbar surgery. Head/Face: Normocephalic, atraumatic. Eyes: Pupils equal round and reactive to light, extra-ocular motions intact. Lids and lashes normal. Conjunctiva and sclera are not injected. Cornea within normal limits. Periorbital areas with no swelling, redness, or edema. ENT: Nares patent. No nasal discharge, no septal abnormalities noted. Tympanic membranes are normal and external auditory canals are clear. Oropharynx with no redness, swelling, or masses, exudates, or evidence of obstruction, uvula midline. Mucous membranes moist. Neck: Trachea midline, no thyromegaly or masses palpated, and no cervical lymphadenopathy. Supple, full range of motion without nuchal rigidity, or vertebral point tenderness. Chest/axilla: Normal chest wall appearance and motion. Nontender with no deformity. No lesions are appreciated. Cardiovascular: Regular rate and rhythm with a normal S1 and S2. No gallops, murmurs, or rubs. Normal PMI, no JVD. No pulse deficits. Respiratory: Lungs have equal breath sounds bilaterally, clear to auscultation and percussion. No rales, rhonchi or wheezes noted. No increased work of breathing, no retractions or nasal flaring. Abdomen/GI: Soft, non-tender, with normal bowel sounds. No distension or tympany. No guarding or rebound. No evidence of tenderness throughout. Back: No spinal tenderness. No costovertebral tenderness. Skin: Warm, dry with normal turgor. Normal color with no rashes, no lesions, and no evidence of cellulitis. MS/ Extremity: Pulses equal, no cyanosis. Neurovascular intact. Full, normal range of motion. Neuro: Awake and alert, GCS 15, oriented to person, place, time, and situation. Cranial nerves II-XII grossly intact. Motor strength 5/5 in all extremities. Sensory grossly intact. Psych: Awake, alert, with orientation to person, place and time. Behavior, mood, and affect are within normal limits 01:35 ECG was reviewed by the Attending Physician. EKG at 0013, sinus rhythm with first-degree AV block, ventricular rate 75, left axis deviation, left bundle branch block, chronic left bundle branch block. Negative STEMI by Sgarbossa criteria. No ectopy Vital Signs: 00:02 BP 150 / 90; Pulse 77; Resp 24; Temp 97.2(TE); Pulse Ox 93% on R/A; jb4 01:23 BP 115 / 50; Pulse 74; Resp 16; Pulse Ox 95% ; bp 03:00 BP 99 / 63; Pulse 79; Resp 16; Pulse Ox 95% on R/A; jb4 04:09 BP 93 / 62; Pulse 80; Resp 20; Pulse Ox 96% on R/A; jb4 MDM: 00:01 Patient medically screened. sp4 01:26 ED course: CT report - COMPARISON: 08/21/2022 CT head, CT C-spine without contrast sp4 FINDINGS: BRAIN: Moderate periventricular and deep white matter microangiopathy. Mild global cerebral atrophy with commensurate sulcal and ventricular enlargement, not greater than expected for patient age. No extra-axial fluid collection. No intracranial hemorrhage. No focal kramer-white matter differentiation abnormality. MIDLINE SHIFT: No midline shift. VENTRICLES: See above. SKULL: See below. SINUSES: Unremarkable as visualized. No acute sinusitis. MASTOID AIR CELLS: Unremarkable as visualized. No mastoid effusion. VERTEBRAE: Severe multilevel cervical spondylosis with partial and complete degenerative fusion of multiple intervertebral levels, including the C3-4 and C7-T1 levels. 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 No acute fracture or subluxation. No dislocation. DISCS/SPINAL CANAL/NEURAL FORAMINA: Multilevel mild to moderate canal narrowing secondary to posterior longitudinal ligament calcification. Multilevel moderate to severe neuroforaminal narrowing, greatest at the left C4-5 level. No transtentorial herniation. No acute disc space abnormality. OTHER BONES/JOINTS: No fracture of the calvarium or visualized facial bones. SOFT TISSUES: Unremarkable. VASCULATURE: Vascular calcifications, densest in the left distal common carotid and proximal internal carotid artery. IMPRESSION: 1. Severe multilevel degenerative changes of cervical spine with postsurgical changes, but no significant change from prior exam. No acute cervical spine abnormality. 2. Chronic and senescent intracranial changes, not greater than expected for patient age, with no acute intracranial abnormality. ED course: Chest - CLINICAL HISTORY: The patient is 87 years old and is Male; syncope TECHNIQUE: Frontal view of the chest. COMPARISON: No relevant prior studies available. FINDINGS: Lungs: Unremarkable. No consolidation. Pleural space: Unremarkable. No pneumothorax. Heart: Unremarkable. Mediastinum: Unremarkable. Bones/joints: No acute findings. IMPRESSION: No acute findings in the chest.. 01:41 Differential Diagnosis altered mental status, sepsis, flu. Data reviewed: vital signs, [facility] nurses notes, EMS record, old medical records, lab test result(s), EKG, radiologic studies, CT scan, plain films. Consideration of Admission/Observation Escalation of care including admission/observation considered. ED course: CT revealed a laminectomy at level C5, C6, and T1. No acute intracranial abnormality, chest x-ray is clear, EKG reveals old left bundle branch block . . 01:45 ED course: At this point patient warrants syncope work-up and admission to the [facility] hospital. Patient prefers to go to [facility] in [place] because this is his hospital of call. . 02:23 Management of patient was discussed with the following: Hospitalist: [place] [id number] Accepting Hospitalist was informed . 11/18 23:51 Order name: Basic Metabolic Panel; Complete Time: 4 11/18 23:51 Order name: CBC with Diff; Complete Time: 4 11/18 23:51 Order name: LFT's; Complete Time: 4 11/18 23:51 Order name: Magnesium; Complete Time: 4 11/18 23:51 Order name: NT PRO-BNP; Complete Time: 4 11/18 23:51 Order name: PT-INR; Complete Time: 4 11/18 23:51 Order name: Troponin HS; Complete Time: 4 11/18 23:53 Order name: Urinalysis W/Microscopic; Complete Time: 03:11 sp4 11/18 23:54 Order name: COVID-19 SARS RT PCR; Complete Time: 4 11/18 23:54 Order name: Influenza Screen (a \T\ B); Complete Time: sp4 11/18 23:54 Order name: Lactate w/ 2H reflex if indic.; Complete Time: sp4 11/18 23:54 Order name: Blood Culture Adult (2) sp4 11/18 23:54 Order name: Procalcitonin; Complete Time: sp4 11/18 23:54 Order name: CRP; Complete Time: sp4 11/18 23:51 Order name: XRAY Chest (1 view) 4 11/18 23:53 Order name: CT Head C Spine sp4 11/18 23:51 Order name: EKG; Complete Time: 23:52 sp4 11/18 23:51 Order name: Cardiac monitoring; Complete Time: 00:16 sp4 11/18 23:51 Order name: EKG - Nurse/Tech; Complete Time: 01:00 sp4 11/18 23:51 Order name: IV Saline Lock; Complete Time: 00:16 sp4 11/18 23:51 Order name: Labs collected and sent; Complete Time: 00:16 sp4 11/18 23:51 Order name: O2 Per Protocol; Complete Time: 00:17 sp4 11/18 23:51 Order name: O2 Sat Monitoring; Complete Time: 00:17 sp4 EC:35 Rate is 75 beats/min. Rhythm is regular, Sinus Rhythm with Left bundle branch block, sp4 1st degree heart block. Left axis deviation noted. PA interval is prolonged. QRS interval is prolonged. No ST changes noted. Clinical impression: No evidence of ischemia. Interpreted by me. Administered Medications: 01:18 Drug: NS 0.9% IV 1000 ml IV at 125 ml/hr continuous Route: IV; Rate: 125 ml/hr; Site: [facility] right antecubital; 01:40 Drug: Insulin Regular Human IVP 5 units IVP once {Co-Signature: carli (Juan Vega RN).} Route: IVP; Site: right antecubital; 03:32 Drug: Albumin IVPB 25 grams 100 ml IVPB once; (Note: Albumin 25% concentration) Volume: jb4 100 ml; Route: IVPB; Site: right antecubital; Disposition Summary: 11/19/22 01:45 Transfer Ordered Notes: Transfer Location: [facility] sp4 Reason: Higher level of care sp4 Condition: Stable sp4 Problem: new sp4 Symptoms: are unchanged sp4 Accepting Physician: [facility] Attending (11/19/22 04:43) jb4 Diagnosis - Type 2 diabetes mellitus with hyperglycemia sp4 - Syncope and Collapse, Fall at home. Generalized weakness sp4 Forms: - Medication Reconciliation Form sp4 - SBAR form sp4 Signatures: Dispatcher [employer] EDJuan Dominguez RN RN jb4 Stoney Anaya RN RN bp Potepalov, Sergey, MD MD sp4 [place], Juan RN jb4 Corrections: (The following items were deleted from the chart) 01:36 01:33 Patient is a very pleasant 87-year-old male who presents with syncopal episode sp4 from home and also reported hyperventilation. Patient reports that he stood up to urinate and the next thing he recalls he woke up in an ambulance. EMS was called by the home health anesthesia assistant who found patient on the floor with low respiratory rate. Patient was reportedly unresponsive. EMS arrived and administered oxygen after which patient became responsive. . sp4 02:27 11/18 23:54 Miguel ordered. sp4 jb4 11/19 04:43 01:45 [facility] Attending MD valdez jb4
--- NOTE | 2022-11-19 01:46 | ER ---
Nurse's Notes [facility] Name: Romeo Liao Age: 87 yrs Sex: Male : 1935 Arrival Date: 11/18/2022 Time: 23:42 Bed 4 Private MD: Diagnosis: Type 2 diabetes mellitus with hyperglycemia;Syncope and Collapse, Fall at home. Generalized weakness Presentation: 11/19 00:02 Chief complaint: EMS states: Pt was with home health, tried to get up to use the jb4 restroom, fell. The home health worker noticed he was unresponsive and not breathing. She began delivering back blows, pt was noted to have agonal respirations upon EMS arrival. Initial B/p was 166/134 HR 25. B/p prior to arrival to ER was 182/86, HR 85. BGL 365, pt now A\T\O 3-4. Coronavirus screen: At this time, the client does not indicate any symptoms associated with coronavirus-19. Ebola Screen: No symptoms or risks identified at this time. Initial Sepsis Screen: Does the patient meet any 2 criteria? RR > 20 per min. Yes Does the patient have a suspected source of infection? No. Patient's initial sepsis screen is negative. Risk Assessment: Do you want to hurt yourself or someone else? Patient reports no desire to harm self or others. Onset of symptoms was November 19, 2022. Transition of care: patient was not received from another setting of care. 00:02 Method Of Arrival: EMS: [facility] jb4 00:02 Acuity: SHAYLEE 2 jb4 Triage Assessment: 00:05 General: Appears in no apparent distress. comfortable, Behavior is calm, cooperative, bp appropriate for age. Pain: Denies pain. EENT: No deficits noted. Neuro: Level of Consciousness is awake, alert, obeys commands, Oriented to Appropriate for age Reports a syncopal episode. Historical: - Allergies: 00:07 No Known Allergies; jb4 - PMHx: 00:07 diabetes mellitus; High Cholesterol; HTN; over active bladder; jb4 - PSHx: 00:07 back; neck; jb4 - Immunization history:: Adult Immunizations up to date. - Social history:: Smoking status: Patient denies any tobacco usage or history of. - Family history:: not pertinent. Screenin:27 [facility] ED Fall Risk Assessment (Adult) History of falling in the last 3 months, bp including since admission No falls in past 3 months (0 pts). Abuse screen: Denies threats or abuse. Denies injuries from another. Nutritional screening: No deficits noted. Tuberculosis screening: No symptoms or risk factors identified. Assessment: 00:10 General: SEE TRIAGE NOTE. bp 01:27 Reassessment: Patient appears in no apparent distress at this time. Patient is alert, bp oriented x 3, equal unlabored respirations, skin warm/dry/pink. 02:30 Reassessment: Patient appears in no apparent distress at this time. Patient and/or jb4 family updated on plan of care and expected duration. Pain level reassessed. Patient is alert, oriented x 3, equal unlabored respirations, skin warm/dry/pink. 03:08 Reassessment: Patient appears in no apparent distress at this time. Patient and/or jb4 family updated on plan of care and expected duration. Pain level reassessed. Patient is alert, oriented x 3, equal unlabored respirations, skin warm/dry/pink. 04:09 Reassessment: Patient appears in no apparent distress at this time. Patient and/or jb4 family updated on plan of care and expected duration. Pain level reassessed. Patient is alert, oriented x 3, equal unlabored respirations, skin warm/dry/pink. Vital Signs: 00:02 BP 150 / 90; Pulse 77; Resp 24; Temp 97.2(TE); Pulse Ox 93% on R/A; jb4 01:23 BP 115 / 50; Pulse 74; Resp 16; Pulse Ox 95% ; bp 03:00 BP 99 / 63; Pulse 79; Resp 16; Pulse Ox 95% on R/A; jb4 04:09 BP 93 / 62; Pulse 80; Resp 20; Pulse Ox 96% on R/A; jb4 ED Course: 11/18 23:51 Patient arrived in ED. lg3 23:51 Rito Alcantar MD is Attending Physician. sp4 23:54 Stoney Anaya, SIMON is Primary Nurse. bp 11/19 00:07 Triage completed. jb4 00:07 Arm band placed on right wrist. jb4 00:10 Maintain EMS IV. Dressing intact. Good blood return noted. Site clean \T\ dry. Gauge \T\ bp site: 22 GA RIGHT AC. 00:28 XRAY Chest (1 view) In Process Unspecified. EDMS 00:53 CT Head C Spine In Process Unspecified. EDMS 01:27 Patient has correct armband on for positive identification. Bed in low position. Call bp light in reach. Side rails up X2. 01:39 Initiated transfer with Ashly at [facility]. rv1 02:[address] Lane at [facility] [place] [address]. rv1 04:43 No provider procedures requiring assistance completed. Patient transferred, IV remains jb4 in place. Administered Medications: 01:18 Drug: NS 0.9% IV 1000 ml IV at 125 ml/hr continuous Route: IV; Rate: 125 ml/hr; Site: jb4 right antecubital; 01:40 Drug: Insulin Regular Human IVP 5 units IVP once {Co-Signature: carli (Juan Vega RN).} Route: IVP; Site: right antecubital; 03:32 Drug: Albumin IVPB 25 grams 100 ml IVPB once; (Note: Albumin 25% concentration) Volume: jb4 100 ml; Route: IVPB; Site: right antecubital; Medication: 01:27 VIS not applicable for this client. bp Outcome: 01:45 ER care complete, transfer ordered by . [email or web address] 04:43 Transferred by ground EMS to [facility], Transfer form jb4 completed. X-rays sent w/ patient. 04:43 Condition: stable 04:43 Discharge instructions given to patient, Instructed on the need for transfer, Demonstrated understanding of instructions, 04:43 Patient left the ED. jb4 Signatures: Dispatcher [employer] Juna Dunbar, RN RN jb4 Stoney Anaya RN RN bp Gibson, Lacie, RN RN lg3 Gaby Waldron1 Rito Alcantar MD MD sp4 Bryson, James RN jb4
[2022-11-19] MEDS ORDERED: INSULIN -REGULAR HUMAN 50 UNIT/0.5 ML ML ONE (01:51)
[2022-11-19 02:52] LABS: Specific Gravity 1.017 (1.005-1.030); Urine Bacteria None Seen /HPF (<20); Urine Bilirubin NEGATIVE (Negative); Urine Blood Negative (Negative); Urine Clarity Clear (Clear); Urine Color Light-Yellow (Yellow); Urine Glucose 4+ (Negative); Urine Mucus Slight /HPF (None Seen); Urine Protein TRACE (Negative); Urine RBC <5 /HPF (None Seen); Urine Urobilinogen Normal (Normal); Urine WBC Clump Rare /HPF (None Seen); Urine pH 6.5 (5.0-7.0)
[2022-11-19] MEDS ORDERED: ALBUMIN HUMAN 25% 100 ML IV ONE (03:38)
[2022-11-19 04:50] VITALS: TEMP 97.2
[2022-11-19 04:53] VITALS: BP 93/62; O2SAT 96
--- NOTE | 2022-11-19 14:38 | RAD REPORT ---
EXAM DESCRIPTION: RAD - Chest Single View - 11/19/2022 12:26 am CLINICAL HISTORY: The patient is 87 years old and is Male; syncope TECHNIQUE: Frontal view of the chest. COMPARISON: No relevant prior studies available. FINDINGS: Lungs: Unremarkable. No consolidation. Pleural space: Unremarkable. No pneumothorax. Heart: Unremarkable. Mediastinum: Unremarkable. Bones/joints: No acute findings. IMPRESSION: No acute findings in the chest. Electronically signed by: Balta Portillo MD 11/19/2022 12:34 AM CDT Due to temporary technical issues with the PACS/Fluency reporting system, reports are being signed by the in house radiologists without review as a courtesy to insure prompt reporting. The interpreting radiologist is fully responsible for the content of the report.
--- NOTE | 2022-11-19 14:43 | RAD REPORT ---
EXAM DESCRIPTION: CT - Head C Spine Mpr Wo Con - 11/19/2022 5:59 am CLINICAL HISTORY: The patient is 87 years old and is Male; [facility] MAIN TECHNIQUE: Axial computed tomography images of the head/brain and cervical spine without intravenous contrast. Sagittal and coronal reformatted images were created and reviewed. This CT exam was pe rformed using one or more of the following dose reduction techniques: automated exposure control, a djustment of the mA and/or kV according to patient size, and/or use of iterative reconstruction techn ique. 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 Mild global cerebral atrophy with commensurate sulcal and ventricular enlargement, not greate r than expected for patient age. No extra-axial fluid collection. No intracranial hemorrhage. No focal kramer-white matter differentiation abnormality. MIDLINE SHIFT: No midline shift. VENTRICLES: See above. SKULL: See below. SINUSES: Unremarkable as visualized. No acute sinusitis. MASTOID AIR CELLS: Unremarkable as visualized. No mastoid effusion. VERTEBRAE: Severe multilevel cervical spondylosis with partial and complete degenerative fusion of multiple intervertebral levels, including the C3-4 and C7-T1 levels. 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 No acute fracture or subluxation. No dislocation. DISCS/SPINAL CANAL/NEURAL FORAMINA: Multilevel mild to moderate canal narrowing secondary to trade show coordinator ior longitudinal ligament calcification. Multilevel moderate to severe neuroforaminal narrowing, greatest at the left C4-5 level. No transtentorial herniation. No acute disc space abnormality. OTHER BONES/JOINTS: No fracture of the calvarium or visualized facial bones. SOFT TISSUES: Unremarkable. VASCULATURE: Vascular calcifications, densest in the left distal common carotid and proximal international relations teacher al carotid artery. IMPRESSION: 1. Severe multilevel degenerative changes of cervical spine with postsurgical changes, but no significant change from prior exam. No acute cervical spine abnormality. 2. Chronic and senescent intracranial changes, not greater than expected for patient age, with no a cute intracranial abnormality. Electronically signed by: Taran Whatley MD 11/19/2022 1:17 AM CDT Due to temporary technical issues with the PACS/Fluency reporting system, reports are being signed by the in house radiologists without review as a courtesy to insure prompt reporting. The interpreting radiologist is fully responsible for the content of the report.
--- NOTE | 2022-11-19 16:58 | EKG ---
Test Date: 2022-11-19 Test Time: 00:13:05 Director Labor Standards: JARAD MEASUREMENT RESULTS: Intervals: Rate: 75 FL: 314 QRSD: 178 QT: 482 QTc: 538 [place]long: P: 61 FL: 314 QRS: -55 T: 66 INTERPRETIVE STATEMENTS: Sinus rhythm with 1st degree AV block Left axis deviation Left bundle branch block Abnormal ECG Compared to ECG 08/21/2022 04:50:45 First degree AV block now present Electronically Signed On 11-19-22 16:56:13 CDT by Loy Sainz
== END 2022-11-19 04:43 | disposition short-term general hospital (02) ==
LOC: ER 23:42
DX: E11.65 Type 2 diabetes mellitus with hyperglycemia (principal); R53.1 Weakness; W18.30XA Fall on same level, unspecified, initial encounter; Y92.002 Bathroom of unspecified non-institutional (private) residence as the place of occurrence of the external cause; I10 Essential (primary) hypertension; Z20.822 Contact with and (suspected) exposure to COVID-19
CPT/HCPCS: 36415; 70450; 71045; 72125; 80048; 80076; 81001; 82947; 83605; 83735; 83880; 84145; 84484; 85025; 85610; 86140; 87040; 87635; 87804; 93005; 96374; 96375; 99285; J1815; J7030; P9047

== ENCOUNTER 2023-07-12 15:59 | Inpatient (IN) | payer OTHER, BC ==
[2023-07-12] MEDS ORDERED: ROCURONIUM 50 MG/5 ML VIAL IV ONE (16:05)
[2023-07-12] MEDS ORDERED: DOPAMINE/D5W 400 MG/250 ML BAG IV ONE (16:14)
--- OUTSIDE RECORDS SUMMARY | 2023-07-12 16:22 | XMS REPORT | Continuity of Care Document ---
Author Name Unknown Address [address] [facility] [address] [place] [address] [facility] Address [address] [facility] [address] [place] [address] Care Team Providers Care [employer] Winding Operator Name Role Phone Philip Dawson MD Primary Care Physician [phone] SKINNY WHATLEY Attending Clinician Unavailable ALAN BEAULIEU Attending Clinician Unavailable PHILIP DAWSON Attending Clinician Unavailable Nivia Sarmiento Attending Clinician [phone] BRIANNA BRAND Attending Clinician Unavaila Brianna Burns Attending Clinician Philip Dawson MD Attending Clinician [phone] JULIO MORRIS Attending Clinician UnavailJULIO Benítez Attending Clinician UnavailJulio Benítez MD Attending Clinician [phone] OLE BROOKS Attending Clinician Unavailable Ole Brooks DO Attending Clinician [phone] Alan Beaulieu MD Attending Clinician [phone] Doctor Unassigned, [place] Attending Clinician U navailable NIVIA ENG Attending Clinician Unavailable 2, [facility] Attending Clinician Unavailable Susan Yadav MD Attending Clinician [phone] CONNIE OSUNA Attending Clinician Unavailable Connie Ferguson S Attending Clinician [phone] Margo MONTES, Maria M Terrell Attending Clinician [phone] ROBERT KENNEDY Attending Clinician Unavailable Ariana GROSS, Leah Attending Clinician [phone] Robert Kennedy DO Attending Clinician [phone] LANDON CERVANTES Attending Clinician Unavailable Lab, Ang - Db Attending Clinician Unavailable Unknown, Attending Attending Clinician Unavailab le Helen RADIO JOURNALIST, Landon Attending Clinician [phone] Nurse, [facility] Attending Clinician Un available [facility] RADIO JOURNALIST, Antonia Attending Clinician + [phone] Adelaide Bentley LVN Attending Clinician Unavacheko Pablo MD, Cyrus Attending Clinician Unavaila sameer Sheehan MD, Chandan Attending Clinician [phone] CHANDAN SHEEHAN Attending Clinician Unavailable PATRICIA SERRANO Attending Clinician Unavailable Ron PSYCHIATRIC CLINICIAN, Kaylee Knight Attending Clinician Unava ilSUSAN Florence Attending Clinician Unavailable Braxton [facility], Ania Infante Attending Clinician [phone] UNKNOWN, ATTENDING Attending Clinician Unavailab Juan Wood MD Attending Clinician [phone] MARCY CLEMONS Attending Clinician Unavailable Kaci RADIO JOURNALIST, Marcy Attending Clinician [phone] Mustapha GROSS, Mickey Attending Clinician [phone] Jaylin Ivey RN Attending Clinician Unavailab MORALES Gomes Attending Clinician Unavailable Anuj Barroso MD Attending Clinician + [phone] Morales Mckeon MD Attending Clinician [phone] Haroon RADIO JOURNALIST, Rita Attending Clinician [phone] Susan Cueto DPM Attending Clinician [phone] SUSAN CUETO Attending Clinician UnavailCYRUS Dewitt Attending Clinician Unavailable Kimberlee RADIO JOURNALIST, Dora Danielson Attending Clinician [phone] Skinny Whatley MD Attending Clinician [phone] Michael Casillas MD Attending Clinician + [phone] MICHAEL CASILLAS Attending Clinician Unavail able MICHAEL CASILLAS Attending Clinician Unavail able DORA MOHAN Attending Clinician Unavailable Kellie Diaz Attending Clinician [phone] Ambrocio Rothman DO Attending Clinician [phone] RITA PATIÑO Attending Clinician Unavailable , [facility] Vascular Room 1 - Attending Clinician Un available Demian Theodore MD Attending Clinician + [phone] , [facility] Echo Room 1 - Attending Clinician Gorge Saenz Attending Clinician [phone] GORGE ROSADO Attending Clinician Unavailable Lab, [facility] Attending Clinician Unavailab le Provider, [facility] Attending Clinician Un available OLE BROOKS Admitting Clinician Unavailable LEAH REIS Admitting Clinician Unavailable Leah Reis MD Admitting Clinician [phone] ALAN BEAULIEU Admitting Clinician Unavailable MORALES MCKEON Admitting Clinician Unavailable Morales Mckeon MD Admitting Clinician [phone] MICHAEL CASILLAS Admitting Clinician Unavail able Robert Kennedy DO Admitting Clinician [phone] Payers Payer Name Policy Type Policy Number Effective Date Expirati on Date Source MEDICARE PART A \\T\\ B [id number] 2002 00:00:00 [facility] [id number] 2014 00:00:[address] [facility] [id number] 2023 00:00:00 Problems Condition Name Condition Details Condition Category Status Onset Date Resolution Date Last Treatment Date Treating Clinician Comments Source Heart murmur Heart murmur Disease Active 2022-02-16 00:00: 00 [facility] Syncope and collapse Syncope and collapse Disease Active 2022-02 0-05 00:00: 00 [facility] LBBB (left bundle branch block) LBBB (left bundle branch block) Disease Active 2022-02 0-05 00:00: 00 [facility] Mixed hyperlipid emia Mixed hyperlipid emia Disease Active 7-18 00:00: 00 [facility] 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 aortic valve stenosis Disease Active 6-21 00:00: 00 [facility] Bilateral carotid artery stenosis Bilateral carotid artery stenosis Disease Active 5-05 00:00: 00 [facility] Leg edema Leg edema Disease Active 5-05 00:00: 00 [facility] Urinary frequency Urinary frequency Disease Active 1-03 00:00: 00 [facility] Bad odor of urine Bad odor of urine Disease Active 1-03 00:00: 00 [facility] Unwitnesse d fall Unwitnesse d fall Disease Active 2021-02 00:00: 00 [facility] Small vessel disease, cerebrovas cular Small vessel disease, cerebrovas cular Disease Active 02-27 00:00: 00 [facility] Obesity (BMI 30-39.9) Obesity (BMI 30-39.9) Disease Active 2020-02 00:00: 00 [facility] Type 2 diabetes mellitus without complicati on, without long-term current use of insulin Type 2 diabetes mellitus without complicati on, without long-term current use of insulin Disease Active 2020-02 00:00: 00 [facility] Constipati on, unspecifie d constipati on type Constipati on, unspecifie d constipati on type Disease Active 2020-02 00:00: 00 [facility] Primary hypertensi on Primary hypertensi on Disease Active 2020-02 00:00: 00 [facility] Pressure injury of buttock, stage 1, unspecifie d laterality Pressure injury of buttock, stage 1, unspecifie d laterality Disease Active 2020-02 00:00: 00 [facility] COVID-19 COVID-19 Disease Active - 00:00: 00 [facility] Allergies, Adverse Reactions, Alerts Allergy Name Allergy Type Status Severity Reaction(s) Onset Date Inactive Date Treating Clinician Comments Source NO KNOWN ALLERGIE S Drug Class Active [facility] Social History Social Habit Start Date Stop Date Quantity Comments Source History of tobacco use Cigarette Smoker [facility] Alcoholic beverage intake 2023-06-09 00:00:00 2023-06-09 00:00:00 Ex-drinker (finding) [facility] Alcohol intake 2023-06-09 00:00:00 2023-06-09 00:00:00 Ex-drinker (finding) [facility] History of Social function 2022-10-07 00:00:00 2022-10-07 00:00:00 [facility] Exposure to SARS-CoV-2 (event) 2022-07-04 00:00:00 2022-07-14 08:26:00 Not sure [facility] History SDOH Food Worry 2021-12-23 00:00:00 2021-12-23 00:00:00 1 [facility] History SDOH Food Scarcity 2021-12-23 00:00:00 2021-12-23 00:00:00 1 [facility] History SDOH Transport Med 2021-12-23 00:00:00 2021-12-23 00:00:00 2 [facility] History SDOH Transport Non-Med 2021-12-23 00:00:00 2021-12-23 00:00:00 2 [facility] Education - What is the highest level of school you have completed or the highest degree you have received? 2021-12-19 00:00:00 2021-12-19 00:00:00 12th grade [facility] Tobacco use and exposure 2021-12-10 00:00:00 2021-12-10 00:00:00 Smokeless tobacco non-user [facility] Tobacco Comment 2021-12-10 00:00:00 2021-12-10 00:00:00 quit over 30 yrs ago [facility] Sex assigned at 1935 00:00:00 1935 00:00:00 [facility] Smoking Status Start Date Stop Date Source Ex-smoker 2021-12-10 00:00:00 2021-12-10 00:00:00 [facility] Medications Ordered Medication Name Filled Medication Name Start Date Stop Date Current Medication? Ordering Clinician Indication Dosage Frequency Signature (SIG) Comments Components Source METFORMIN 500 mg tablet 06-27 00:00: 00 Yes [id number] TAKE 1 TABLET BY MOUTH IN THE MORNING AND IN THE EVENING WITH MEALS [facility] Trospium 60 mg capsule 06-08 00:00: 00 Yes [id number] 60mg Take 1 capsule by mouth in the morning. [facility] nystatin 100,000 unit/gram powder 05-31 00:00: 00 Yes [id number] Apply to area(s) 2 (two) times daily. [facility] Triamcinolo ne Acetonide 0.025 % lotion 05-31 00:00: 00 Yes [id number] Apply to area(s) 2 (two) times daily. [facility] oxybutynin XL 5 mg 24 hr tablet 05-31 00:00: 00 06-08 00:00 :00 No [id number] 5mg Take 1 tablet by mouth every morning. [facility] CLOPIDOGREL 75 mg tablet 05-12 00:00: 00 Yes [id number] 75mg TAKE 1 TABLET BY MOUTH EVERY DAY IN THE MORNING [facility] valACYclovi r (VALTREX) 1 gram tablet 05-11 00:00: 00 Yes [id number] 1g Take 1 tablet by mouth in the morning and 1 tablet at noon and 1 tablet in the evening. [facility] triamcinolo ne acetonide (KENALOG) injection 40 mg 04-21 21:45: 00 04-21 20:50 :00 No [id number] 40mg [facility] KLOR-CON 10 10 mEq CR tablet -12 00:00: 00 Yes [id number] 10meq TAKE 1 TABLET BY MOUTH EVERY DAY IN THE MORNING [facility] glimepiride 2 mg tablet 03-09 00:00: 00 Yes [id number] 2mg Take 1 tablet by mouth in the morning and 1 tablet in the evening. Take with meals. [facility] Triamcinolo ne Acetonide 0.025 % lotion 2022-02 00:00: 00 05-30 00:00 :00 No [id number] Apply to area(s) 2 (two) times daily. [facility] METOPROLOL SUCCINATE XL 25 mg 24 hr tablet 2022-02 00:00: 00 Yes [id number] 25mg TAKE 1 TABLET BY MOUTH EVERY DAY IN THE MORNING [facility] furosemide (LASIX) 40 mg tablet 2022-02 00:00: 00 Yes [id number] 40mg Take 1 tablet by mouth every morning and evening. [facility] HYDRALAZINE 50 mg tablet 2022-02 00:00: 00 Yes [id number] 50mg TAKE 1 TABLET BY MOUTH IN THE MORNING AND IN THE EVENING [facility] nystatin 100,000 unit/gram powder 2022-02 00:00: 00 05-30 00:00 :00 No [id number] Apply to area(s) 2 (two) times daily. [facility] Triamcinolo ne Acetonide 0.025 % lotion 2022-02 00:00: 00 02-01 00:00 :00 No [id number] Apply to area(s) 2 (two) times daily. [facility] multivitami n tablet 2022-02 08:36: 11 Yes 1{tbl} Take 1 tablet by mouth in the morning. [facility] aspirin 81 mg EC tablet 2022-02 08:36: 11 Yes 325mg Take 325 mg by mouth. [facility] Cholecalcif dwight, Vitamin D3, 125 mcg (5,000 unit) tablet 2022-02 08:36: 11 Yes 125ug Take 125 mcg by mouth. [facility] tamsulosin 0.4 mg 24 hr capsule 2022-02 00:00: 00 Yes [id number] .4mg Take 1 capsule by mouth every morning. [facility] oxybutynin XL 5 mg 24 hr tablet 2022-02 0-25 00:00: 00 05-31 00:00 :00 No [id number] 5mg Take 1 tablet by mouth every morning. [facility] metFORMIN 500 mg tablet 2022-02 0-12 00:00: 00 06-27 00:00 :00 No [id number] 500mg Take 1 tablet by mouth in the morning and 1 tablet in the evening. Take with meals. [facility] triamcinolo ne acetonide (KENALOG) injection 40 mg 2022-02 19:15: 00 11-25 18:14 :00 No [id number] 40mg [facility] enoxaparin (LOVENOX) injection 40 mg 2022-02 22:00: 00 Yes 40mg 40 mg, Subcutaneo us, DAILY, First dose on Bonita 11/19/22 at 1700, Until Discontinu ed, Routine [facility] aspirin 81 mg EC tablet 2022-02 005 14:32: 02 Yes 325mg Take 325 mg by mouth. [facility] Cholecalcif dwight, Vitamin D3, 125 mcg (5,000 unit) tablet 2022-02 14:32: 02 Yes 125ug Take 125 mcg by mouth. [facility] multivitami n tablet 2022-02 14:32: 02 Yes 1{tbl} Take 1 tablet by mouth in the morning. [facility] ondansetron (ZOFRAN (PF)) injection 4 mg 2022-02 005 11:03: 35 Yes 4mg 4 mg, Slow IV Push, Q6HPRN, Starting on Bonita 11/19/22 at 0603, Until Discontinu ed, Routine, Nausea and Vomiting (N/V) [facility] traMADoL (ULTRAM) tablet 50 mg 2022-02 005 11:03: 28 11-21 11:02 :28 No 50mg 50 mg, Oral, Q8HPRN, Starting on Bonita 11/19/22 at 0603, Until 11/21/22 at 0602, Routine, Pain (scale 4-6) [facility] acetaminoph en (TYLENOL) tablet 650 mg 2022-02 0 11:03: 23 Yes 650mg 650 mg, Oral, Q6HPRN, Starting on Bonita 11/19/22 at 0603, Until Discontinu ed, Routine, Pain (scale 1-3) [facility] sulfamethox azole-trime thoprim (BACTRIM DS) 800-160 mg per tablet 11-12 00:00: 00 11-19 00:00 :00 No [id number] 1{tbl} Take 1 tablet by mouth in the morning and 1 tablet in the evening. [facility] ezetimibe (ZETIA) 10 mg tablet 11-05 00:00: 00 Yes [id number] 10mg Take 1 tablet by mouth in the morning. [facility] ezetimibe (ZETIA) 10 mg tablet 11-03 00:00: 00 11-05 00:00 :00 No [id number] 10mg Take 1 tablet by mouth in the morning. [facility] hydrALAZINE 50 mg tablet 10-06 00:00: 00 11-19 00:00 :00 No [id number] 50mg Take 1 tablet by mouth in the morning and 1 tablet in the evening. [facility] CLOPIDOGREL 75 mg tablet 10-05 00:00: 00 05-12 00:00 :00 No [id number] 75mg TAKE 1 TABLET BY MOUTH EVERY DAY IN THE MORNING [facility] TAMSULOSIN 0.4 mg 24 hr capsule 10-05 00:00: 00 12-09 00:00 :00 No [id number] .4mg TAKE 1 CAPSULE BY MOUTH EVERY DAY IN THE MORNING [facility] OXYBUTYNIN XL 5 mg 24 hr tablet 10-05 00:00: 00 12-09 00:00 :00 No [id number] 5mg TAKE 1 TABLET BY MOUTH EVERY DAY IN THE MORNING [facility] metFORMIN 500 mg tablet 09-06 00:00: 00 11-26 00:00 :00 No [id number] 500mg Take 1 tablet by mouth daily with breakfast. [facility] glimepiride 2 mg tablet 09-05 00:00: 00 03-09 00:00 :00 No [id number] TAKE 1 TABLET BY MOUTH EVERY DAY WITH BREAKFAST [facility] aspirin 81 mg EC tablet 09-01 11:23: 08 Yes 325mg Take 325 mg by mouth. [facility] Cholecalcif dwight, Vitamin D3, 125 mcg (5,000 unit) tablet 09-01 11:23: 03 Yes 125ug Take 125 mcg by mouth. [facility] multivitami n tablet 09-01 11:23: 02 Yes 1{tbl} Take 1 tablet by mouth in the morning. [facility] furosemide 40 mg tablet 08-27 00:00: 00 02-01 00:00 :00 No [id number] 40mg Take 1 tablet by mouth in the morning. [facility] ezetimibe (ZETIA) 10 mg tablet 08-17 00:00: 00 11-03 00:00 :00 No [id number] 10mg Take 1 tablet by mouth in the morning. [facility] GLIMEPIRIDE 2 mg tablet 08-07 00:00: 00 09-05 00:00 :00 No [id number] TAKE 1 TABLET BY MOUTH EVERY DAY WITH BREAKFAST [facility] potassium chloride (KLOR-CON 10) 10 mEq CR tablet 07-27 00:00: 00 03-29 00:00 :00 No [id number] 10meq Take 1 tablet by mouth in the morning. [facility] ezetimibe (ZETIA) 10 mg tablet 07-20 00:00: 00 08-17 00:00 :00 No [id number] 10mg Take 1 tablet by mouth in the morning. [facility] glimepiride 2 mg tablet 07-20 00:00: 00 08-07 00:00 :00 No [id number] 2mg Take 1 tablet by mouth daily with breakfast. [facility] triamcinolo ne acetonide (KENALOG) injection 40 mg 07-14 14:30: 00 07-14 13:43 :00 No [id number] 40mg [facility] potassium chloride (KLOR-CON 10) 10 mEq CR tablet 07-06 00:00: 00 07-27 00:00 :00 No [id number] 10meq Take 1 tablet by mouth in the morning. [facility] LACTULOSE 10 gram/15 mL solution 06-24 00:00: 00 Yes [id number] TAKE 15 ML BY MOUTH DAILY [facility] ezetimibe (ZETIA) 10 mg tablet 06-22 00:00: 00 07-19 00:00 :00 No [id number] 10mg Take 1 tablet by mouth in the morning. [facility] furosemide 40 mg tablet 06-19 00:00: 00 08-27 00:00 :00 No [id number] 40mg Take 1 tablet by mouth in the morning. [facility] furosemide 40 mg tablet 06-05 00:00: 00 06-19 00:00 :00 No [id number] Take one tablet by mouth twice a day for one week then decrease to daily then every other day based on weight gain/swell ing [facility] lactulose 10 gram/15 mL solution 05-25 00:00: 00 06-24 00:00 :00 No [id number] TAKE 15 ML BY MOUTH DAILY. [facility] aspirin 81 mg EC tablet 05-12 13:27: 25 Yes 325mg Take 325 mg by mouth. [facility] ezetimibe (ZETIA) 10 mg tablet 05-12 00:00: 00 06-21 00:00 :00 No [id number] 10mg Take 1 tablet by mouth in the morning. [facility] rivastigmin e 4.6 mg/24 hour patch 05-12 00:00: 00 06-12 04:59 :00 No [id number] 1{patch } Apply 1 Patch to skin in the morning for 30 days. [facility] Cholecalcif dwight, Vitamin D3, 125 mcg (5,000 unit) tablet 05-04 14:47: 49 Yes 125ug Take 125 mcg by mouth. [facility] multivitami n tablet 05-04 14:47: 49 Yes 1{tbl} Take 1 tablet by mouth in the morning. [facility] metoprolol succinate XL 25 mg 24 hr tablet 05-04 00:00: 00 01-18 00:00 :00 No [id number] 25mg Take 1 tablet by mouth in the morning. [facility] hydrALAZINE 50 mg tablet 05-04 00:00: 00 10-06 00:00 :00 No [id number] 50mg Take 1 tablet by mouth in the morning and 1 tablet in the evening. [facility] tamsulosin 0.4 mg 24 hr capsule 05-04 00:00: 00 10-05 00:00 :00 No [id number] .4mg Take 1 capsule by mouth every morning. [facility] oxybutynin XL 5 mg 24 hr tablet 05-04 00:00: 00 10-05 00:00 :00 No [id number] 5mg Take 1 tablet by mouth in the morning. [facility] clopidogreL 75 mg tablet 05-04 00:00: 00 10-05 00:00 :00 No [id number] 75mg Take 1 tablet by mouth in the morning. [facility] furosemide 20 mg tablet 05-04 00:00: 00 06-19 00:00 :00 No [id number] 20mg Take 1 tablet by mouth in the morning. [facility] metoprolol succinate XL 25 mg 24 hr tablet 14 00:00: 00 2023- 03-20 00:00 :00 No [id number] 25mg Take 1 tablet by mouth in the morning. [facility] hydrALAZINE 50 mg tablet 0 3-02 00:00: 00 05-04 00:00 :00 No TAKE 1 TABLET BY MOUTH TWICE A DAY [facility] TAMSULOSIN 0.4 mg 24 hr capsule 2-20 00:00: 00 05-04 00:00 :00 No [id number] TAKE 1 CAPSULE BY MOUTH EVERY DAY IN THE MORNING [facility] FUROSEMIDE 20 mg tablet 2- 00:00: 00 05-04 00:00 :00 No [id number] TAKE 1 TABLET BY MOUTH EVERY DAY [facility] TAMSULOSIN 0.4 mg 24 hr capsule 1- 00:00: 00 04-06 00:00 :00 No [id number] TAKE 1 CAPSULE BY MOUTH EVERY MORNING [facility] clopidogreL 75 mg tablet 1-17 00:00: 00 05-04 00:00 :00 No [id number] 75mg Take 1 tablet by mouth in the morning. [facility] KLOR-CON 10 10 mEq CR tablet 2021-02 2- 00:00: 00 07-06 00:00 :00 No [id number] TAKE 1 TABLET BY MOUTH EVERY DAY [facility] TAMSULOSIN 0.4 mg 24 hr capsule 2021-02 2- 00:00: 00 03-09 00:00 :00 No [id number] TAKE 1 CAPSULE BY MOUTH EVERY MORNING [facility] oxybutynin XL 5 mg 24 hr tablet 2021-02 1- 10:29: 33 01-05 00:00 :00 No 5mg Take 5 mg by mouth in the morning. [facility] oxybutynin XL 5 mg 24 hr tablet 2021-02 1- 00:00: 00 05-04 00:00 :00 No [id number] 5mg Take 1 tablet by mouth in the morning. [facility] tamsulosin 0.4 mg 24 hr capsule 2021-02 1 00:00: 00 02-10 00:00 :00 No [id number] .4mg Take 1 capsule by mouth in the morning. [facility] METOPROLOL TARTRATE 25 mg tablet 2021-02 00:00: 00 01-05 00:00 :00 No [id number] TAKE 1 TABLET BY MOUTH TWICE A DAY [facility] tamsulosin 0.4 mg 24 hr capsule 2021-02 00:00: 00 01-05 00:00 :00 No [id number] .4mg Take 1 capsule by mouth in the morning for 30 days. [facility] aspirin 81 mg EC tablet 2021-02 16:35: 15 Yes 325mg Take 325 mg by mouth. [facility] Cholecalcif dwight, Vitamin D3, 125 mcg (5,000 unit) tablet 2021-02 16:35: 15 Yes 125ug Take 125 mcg by mouth. [facility] oxybutynin XL 5 mg 24 hr tablet 2021-02 16:35: 15 Yes 5mg Take 5 mg by mouth in the morning. [facility] multivitami n tablet 2021-02 16:35: 15 Yes 1{tbl} Take 1 tablet by mouth in the morning. [facility] hydrALAZINE 50 mg tablet 2021-02 11:40: 21 12-21 00:00 :00 No [id number] 50mg Take 50 mg by mouth daily. [facility] ascorbic acid, vitamin C, 500 mg tablet 2021-02 00:00: 00 01-21 05:59 :00 No [id number] 1000mg Take 2 tablets by mouth in the morning for 30 days. [facility] tamsulosin (FLOMAX) capsule 0.4 mg 2021-02 14:00: 00 Yes .4mg 0.4 mg, Oral, DAILY, First dose on 12/20/21 at 0900, Until Discontinu ed, Routine [facility] ezetimibe (ZETIA) tablet 10 mg 2021-02 14:00: 00 Yes 10mg 10 mg, Oral, DAILY, First dose on 12/20/21 at 0900, Until Discontinu ed, Routine [facility] clopidogreL (PLAVIX) 75 mg tablet 75 mg 2021-02 14:00: 00 Yes 75mg 75 mg, Oral, DAILY, First dose on 12/20/21 at 0900, Until Discontinu ed, Routine [facility] aspirin E.C. (ECOTRIN) tablet 325 mg 2021-02 14:00: 00 Yes 325mg 325 mg, Oral, DAILY, First dose on 12/20/21 at 0900, Until Discontinu ed, Routine [facility] oxybutynin chloride (DITROPAN) tablet 5 mg 2021-02 13:00: 00 Yes 5mg 5 mg, Oral, BID, First dose on 12/20/21 at 0800, Until Discontinu ed, Routine [facility] glimepiride (AMARYL) tablet 2 mg 2021-02 13:00: 00 Yes 2mg 2 mg, Oral, QAM WITH BREAKFAST, First dose on 12/20/21 at 0800, Until Discontinu ed, Routine [facility] Sliding Scale Insulin - Lispro (HumaLOG) + Fsbg Testing 2021-02 22:00: 00 Yes Subcutaneo us, TID MEALS+HS, First dose on Wed12/19/21 at 1700, Until Discontinu ed, Routine [facility] enoxaparin (LOVENOX) injection 40 mg 2021-02 22:00: 00 12-20 01:13 :13 No 40mg 40 mg, Subcutaneo us, DAILY, First dose on Wed12/19/21 at 1700, Until Discontinu ed, Routine [facility] glucagon (GLUCAGEN DIAGNOSTIC KIT) injection 1 mg 2021-02 19:23: 13 Yes 1mg 1 mg, Intramuscu lar, PRN, Starting on Wed12/19/21 at 1423, Until Discontinu ed, MANUEL, Blood Glucose < or = 70 mg/dL and patient is unable to swallow or has mental changes. [facility] dextrose 50 % in water (D50W) injection 25 mL 2021-02 19:23: 13 Yes 25mL 25 mL, Slow IV Push, PRN, Starting on Wed12/19/21 at 1423, Until Discontinu ed, MANUEL, Blood Glucose < or = 70 mg/dL and patient is unable to swallow or has mental status changes. [facility] traMADoL (ULTRAM) tablet 50 mg 2021-02 19:22: 59 12-21 20:21 :59 No 50mg 50 mg, Oral, Q8HPRN, Starting on Wed12/19/21 at 1422, Until 12/21/21 at 1421, Routine, Pain (scale 4-6) [facility] acetaminoph en (TYLENOL) tablet 650 mg 2021-02 19:22: 56 Yes 650mg 650 mg, Oral, Q6HPRN, Starting on Wed12/19/21 at 1422, Until Discontinu ed, Routine, Pain (scale 1-3) [facility] [facility] acetaminoph en (TYLENOL) tablet 975 mg 2021-02 18:30: 00 12-19 17:27 :00 No 975mg 975 mg, Oral, ONCE, 1 dose, On Wed12/19/21 at 1330, MANUEL [facility] furosemide 20 mg tablet 2021-02 00:00: 00 03-18 00:00 :00 No [id number] TAKE 1 TABLET BY MOUTH EVERY DAY [facility] mirabegron (MYRBETRIQ) 25 mg tablet 2021-02 00:00: 00 12-19 00:00 :00 No [id number] 25mg Take 1 tablet by mouth in the morning. [facility] amLODIPine 5 mg tablet 2021-02 00:00: 00 01-05 00:00 :00 No [facility] METOPROLOL TARTRATE 25 mg tablet 8-15 00:00: 00 12-31 00:00 :00 No [id number] TAKE 1 TABLET BY MOUTH TWICE A DAY [facility] ezetimibe (ZETIA) 10 mg tablet 7-14 00:00: 00 05-12 00:00 :00 No [id number] 10mg Take 1 tablet by mouth in the morning. [facility] clopidogreL 75 mg tablet -06 00:00: 00 03-03 00:00 :00 No [id number] 75mg Take 1 tablet by mouth daily. [facility] KLOR-CON 10 10 mEq CR tablet 08-20 00:00: 00 02-11 00:00 :00 No [id number] TAKE 1 TABLET BY MOUTH EVERY DAY [facility] losartan-hy drochloroth iazide 100-25 mg per tablet 07-17 00:00: 00 12-21 00:00 :00 No [id number] 1{tbl} Take 1 tablet by mouth daily. [facility] losartan-hy drochloroth iazide 100-25 mg per tablet 07-15 12:38: 00 07-15 00:00 :00 No [id number] 1{tbl} Take 1 tablet by mouth daily. [facility] losartan-hy drochloroth iazide 100-25 mg per tablet 07-15 00:00: 00 Yes [id number] 1{tbl} Take 1 tablet by mouth daily. [facility] metoprolol tartrate 25 mg tablet 06-30 15:00: 41 06-30 00:00 :00 No 25mg Take 25 mg by mouth 2 (two) times daily. [facility] metoprolol tartrate 25 mg tablet 06-30 00:00: 00 09-29 00:00 :00 No [id number] 25mg Take 1 tablet by mouth 2 (two) times daily. [facility] furosemide 20 mg tablet 06-26 00:00: 00 12-18 00:00 :00 No [id number] 20mg Take 1 tablet by mouth daily. [facility] metFORMIN 1,000 mg tablet 06-16 00:00: 09-06 00:00 :00 No [id number] 1000mg Take 1 tablet by mouth daily. [facility] glimepiride 2 mg tablet 06-16 00:00: 00 07-19 00:00 :00 No [id number] 2mg Take 1 tablet by mouth daily with breakfast. [facility] aspirin 81 mg EC tablet 06-11 11:01: 24 Yes 325mg Take 325 mg by mouth. [facility] Cholecalcif dwight, Vitamin D3, 125 mcg (5,000 unit) tablet 06-11 11:01: 24 Yes 125ug Take 125 mcg by mouth. [facility] oxybutynin XL 5 mg 24 hr tablet 06-11 00:00: 00 12-11 00:00 :00 No [id number] 5mg Take 1 tablet by mouth daily. [facility] clopidogreL 75 mg tablet 05-26 00:00: 00 08-20 00:00 :00 No [id number] 75mg Take 1 tablet by mouth daily. [facility] ezetimibe (ZETIA) 10 mg tablet 05-22 00:00: 00 08-20 00:00 :00 No 10mg Take 1 tablet by mouth daily. [facility] metoprolol tartrate 25 mg tablet 05-09 10:42: 35 Yes 25mg Take 25 mg by mouth 2 (two) times daily. [facility] hydrALAZINE 50 mg tablet 05-09 10:42: 35 Yes [id number] 50mg Take 50 mg by mouth daily. [facility] losartan-hy drochloroth iazide 100-25 mg per tablet 05-09 10:42: 35 Yes [id number] 1{tbl} Take 1 tablet by mouth daily. [facility] oxybutynin XL 5 mg 24 hr tablet 2-24 00:00: 00 12-11 00:00 :00 No [id number] 5mg Take 1 tablet by mouth daily. [facility] ALFUZOSIN 10 mg 24 hr tablet 03-24 00:00: 00 12-19 00:00 :00 No [id number] TAKE 1 TABLET BY MOUTH EVERY DAY [facility] LACTULOSE 10 gram/15 mL solution 1-20 00:00: 00 05-25 00:00 :00 No [id number] TAKE 15 ML BY MOUTH DAILY. [facility] potassium chloride (K-TAB) 10 mEq CR tablet 02-27 00:00: 00 08-20 00:00 :00 No [id number] 10meq Take 1 tablet by mouth daily. [facility] furosemide 40 mg tablet 02-27 00:00: 00 06-26 00:00 :00 No [id number] 40mg Take 1 tablet by mouth daily. [facility] oxybutynin XL 5 mg 24 hr tablet 2020-02 00:00: 00 12-11 00:00 :00 No [id number] 5mg Take 1 tablet by mouth daily. [facility] blood sugar diagnostic strip 2020-02 00:00: 00 Yes [id number] Test glucose qid [facility] blood sugar diagnostic strip 2020-02 00:00: 00 Yes [id number] Test glucose qid [facility] Transparent Dressings (TEGADERM) 2 X 2 3/4 " Bndg 2020-02 00:00: 00 12-19 00:00 :00 No [id number] Use as directed qod [facility] zinc sulfate 50 mg zinc (220 mg) capsule 11-14 00:00: 00 Yes [id number] 220mg Take 1 capsule by mouth daily. [facility] ascorbic acid, vitamin C, 500 mg tablet 11-13 00:00: 00 12-21 00:00 :00 No [id number] 500mg Take 1 tablet by mouth 2 (two) times daily. [facility] acetaminoph en 325 mg tablet 2021-0 9-29 00:00: 00 11-14 04:59 :00 No [id number] 650mg Take 2 tablets by mouth every 6 (six) hours as needed for Pain (scale 1-3) or Temp > 38.5 C. [facility] furosemide 20 mg tablet 2-22 00:00: 00 06-26 00:00 :00 No [id number] 20mg Take 1 tablet by mouth daily. [facility] hydroCHLORO thiazide 25 mg tablet 2019-02 1-10 00:00: 00 12-16 00:00 :00 No 25mg Take 25 mg by mouth daily. [facility] hydrALAZINE 25 mg tablet 2019-02 0-21 00:00: 00 12-16 00:00 :00 No 25mg Take 1 tablet by mouth 2 (two) times daily. [facility] tolnaftate 1 % cream 9-15 00:00: 00 12-19 00:00 :00 No [id number] Apply to area(s) 2 (two) times daily. [facility] glimepiride 2 mg tablet 9-10 00:00: 00 12-16 00:00 :00 No [facility] tamsulosin 0.4 mg 24 hr capsule 8-26 00:00: 00 04-22 00:00 :00 No .4mg Take 0.4 mg by mouth daily. [facility] clopidogreL 75 mg tablet 8-25 00:00: 00 05-26 00:00 :00 No 75mg Take 75 mg by mouth daily. [facility] losartan 100 mg tablet 8-04 00:00: 00 12-16 00:00 :00 No 100mg Take 100 mg by mouth daily. [facility] Immunizations Ordered Immunization Name Filled Immunization Name Date Status Comments Source TDAP 2022-05-04 00:00:00 Completed [facility] Pneumococcal 20 Conjugate, PCV20 (Prevnar 20) 2022-05-04 00:00:00 Completed [facility] TDAP 2022-05-04 00:00:00 Completed [facility] Pneumococcal 20 Conjugate, PCV20 (Prevnar 20) 2022-05-04 00:00:00 Completed [facility] TDAP 2022-05-04 00:00:00 Completed [facility] Pneumococcal 20 Conjugate, PCV20 (Prevnar 20) 2022-05-04 00:00:00 Completed [facility] TDAP 2022-05-04 00:00:00 Completed [facility] Pneumococcal 20 Conjugate, PCV20 (Prevnar 20) 2022-05-04 00:00:00 Completed [facility] TDAP 2022-05-04 00:00:00 Completed [facility] Pneumococcal 20 Conjugate, PCV20 (Prevnar 20) 2022-05-04 00:00:00 Completed [facility] TDAP 2022-05-04 00:00:00 Completed [facility] Pneumococcal 20 Conjugate, PCV20 (Prevnar 20) 2022-05-04 00:00:00 Completed [facility] TDAP 2022-05-04 00:00:00 Completed [facility] Pneumococcal 20 Conjugate, PCV20 (Prevnar 20) 2022-05-04 00:00:00 Completed [facility] TDAP 2022-05-04 00:00:00 Completed [facility] Pneumococcal 20 Conjugate, PCV20 (Prevnar 20) 2022-05-04 00:00:00 Completed [facility] TDAP 2022-05-04 00:00:00 Completed [facility] Pneumococcal 20 Conjugate, PCV20 (Prevnar 20) 2022-05-04 00:00:00 Completed [facility] TDAP 2022-05-04 00:00:00 Completed [facility] Pneumococcal 20 Conjugate, PCV20 (Prevnar 20) 2022-05-04 00:00:00 Completed [facility] TDAP 2022-05-04 00:00:00 Completed [facility] Pneumococcal 20 Conjugate, PCV20 (Prevnar 20) 2022-05-04 00:00:00 Completed [facility] TDAP 2022-05-04 00:00:00 Completed [facility] Pneumococcal 20 Conjugate, PCV20 (Prevnar 20) 2022-05-04 00:00:00 Completed [facility] TDAP 2022-05-04 00:00:00 Completed [facility] Pneumococcal 20 Conjugate, PCV20 (Prevnar 20) 2022-05-04 00:00:00 Completed [facility] TDAP 2022-05-04 00:00:00 Completed [facility] Pneumococcal 20 Conjugate, PCV20 (Prevnar 20) 2022-05-04 00:00:00 Completed [facility] TDAP 2022-05-04 00:00:00 Completed [facility] Pneumococcal 20 Conjugate, PCV20 (Prevnar 20) 2022-05-04 00:00:00 Completed [facility] TDAP 2022-05-04 00:00:00 Completed [facility] Pneumococcal 20 Conjugate, PCV20 (Prevnar 20) 2022-05-04 00:00:00 Completed [facility] TDAP 2022-05-04 00:00:00 Completed [facility] Pneumococcal 20 Conjugate, PCV20 (Prevnar 20) 2022-05-04 00:00:00 Completed [facility] TDAP 2022-05-04 00:00:00 Completed [facility] Pneumococcal 20 Conjugate, PCV20 (Prevnar 20) 2022-05-04 00:00:00 Completed [facility] TDAP 2022-05-04 00:00:00 Completed [facility] Pneumococcal 20 Conjugate, PCV20 (Prevnar 20) 2022-05-04 00:00:00 Completed [facility] TDAP 2022-05-04 00:00:00 Completed [facility] Pneumococcal 20 Conjugate, PCV20 (Prevnar 20) 2022-05-04 00:00:00 Completed [facility] TDAP 2022-05-04 00:00:00 Completed [facility] Pneumococcal 20 Conjugate, PCV20 (Prevnar 20) 2022-05-04 00:00:00 Completed [facility] TDAP 2022-05-04 00:00:00 Completed [facility] Pneumococcal 20 Conjugate, PCV20 (Prevnar 20) 2022-05-04 00:00:00 Completed [facility] TDAP 2022-05-04 00:00:00 Completed [facility] Pneumococcal 20 Conjugate, PCV20 (Prevnar 20) 2022-05-04 00:00:00 Completed [facility] TDAP 2022-05-04 00:00:00 Completed [facility] Pneumococcal 20 Conjugate, PCV20 (Prevnar 20) 2022-05-04 00:00:00 Completed [facility] TDAP 2022-05-04 00:00:00 Completed [facility] Pneumococcal 20 Conjugate, PCV20 (Prevnar 20) 2022-05-04 00:00:00 Completed [facility] TDAP 2022-05-04 00:00:00 Completed [facility] Pneumococcal 20 Conjugate, PCV20 (Prevnar 20) 2022-05-04 00:00:00 Completed [facility] TDAP 2022-05-04 00:00:00 Completed [facility] Pneumococcal 20 Conjugate, PCV20 (Prevnar 20) 2022-05-04 00:00:00 Completed [facility] TDAP 2022-05-04 00:00:00 Completed [facility] Pneumococcal 20 Conjugate, PCV20 (Prevnar 20) 2022-05-04 00:00:00 Completed [facility] TDAP 2022-05-04 00:00:00 Completed [facility] Pneumococcal 20 Conjugate, PCV20 (Prevnar 20) 2022-05-04 00:00:00 Completed [facility] TDAP 2022-05-04 00:00:00 Completed [facility] Pneumococcal 20 Conjugate, PCV20 (Prevnar 20) 2022-05-04 00:00:00 Completed [facility] TDAP 2022-05-04 00:00:00 Completed [facility] Pneumococcal 20 Conjugate, PCV20 (Prevnar 20) 2022-05-04 00:00:00 Completed [facility] TDAP 2022-05-04 00:00:00 Completed [facility] Pneumococcal 20 Conjugate, PCV20 (Prevnar 20) 2022-05-04 00:00:00 Completed [facility] TDAP 2022-05-04 00:00:00 Completed [facility] Pneumococcal 20 Conjugate, PCV20 (Prevnar 20) 2022-05-04 00:00:00 Completed [facility] TDAP 2022-05-04 00:00:00 Completed [facility] Pneumococcal 20 Conjugate, PCV20 (Prevnar 20) 2022-05-04 00:00:00 Completed [facility] TDAP 2022-05-04 00:00:00 Completed [facility] Pneumococcal 20 Conjugate, PCV20 (Prevnar 20) 2022-05-04 00:00:00 Completed [facility] TDAP 2022-05-04 00:00:00 Completed [facility] Pneumococcal 20 Conjugate, PCV20 (Prevnar 20) 2022-05-04 00:00:00 Completed [facility] TDAP 2022-05-04 00:00:00 Completed [facility] Pneumococcal 20 Conjugate, PCV20 (Prevnar 20) 2022-05-04 00:00:00 Completed [facility] TDAP 2022-05-04 00:00:00 Completed [facility] Pneumococcal 20 Conjugate, PCV20 (Prevnar 20) 2022-05-04 00:00:00 Completed [facility] TDAP 2022-05-04 00:00:00 Completed [facility] Pneumococcal 20 Conjugate, PCV20 (Prevnar 20) 2022-05-04 00:00:00 Completed [facility] TDAP 2022-05-04 00:00:00 Completed [facility] Pneumococcal 20 Conjugate, PCV20 (Prevnar 20) 2022-05-04 00:00:00 Completed [facility] TDAP 2022-05-04 00:00:00 Completed [facility] Pneumococcal 20 Conjugate, PCV20 (Prevnar 20) 2022-05-04 00:00:00 Completed [facility] TDAP 2022-05-04 00:00:00 Completed [facility] Pneumococcal 20 Conjugate, PCV20 (Prevnar 20) 2022-05-04 00:00:00 Completed [facility] TDAP 2022-05-04 00:00:00 Completed [facility] Pneumococcal 20 Conjugate, PCV20 (Prevnar 20) 2022-05-04 00:00:00 Completed [facility] TDAP 2022-05-04 00:00:00 Completed [facility] Pneumococcal 20 Conjugate, PCV20 (Prevnar 20) 2022-05-04 00:00:00 Completed [facility] TDAP 2022-05-04 00:00:00 Completed [facility] Pneumococcal 20 Conjugate, PCV20 (Prevnar 20) 2022-05-04 00:00:00 Completed [facility] TDAP 2022-05-04 00:00:00 Completed [facility] Pneumococcal 20 Conjugate, PCV20 (Prevnar 20) 2022-05-04 00:00:00 Completed [facility] TDAP 2022-05-04 00:00:00 Completed [facility] Pneumococcal 20 Conjugate, PCV20 (Prevnar 20) 2022-05-04 00:00:00 Completed [facility] TDAP 2022-05-04 00:00:00 Completed [facility] Pneumococcal 20 Conjugate, PCV20 (Prevnar 20) 2022-05-04 00:00:00 Completed [facility] TDAP 2022-05-04 00:00:00 Completed [facility] Pneumococcal 20 Conjugate, PCV20 (Prevnar 20) 2022-05-04 00:00:00 Completed [facility] TDAP 2022-05-04 00:00:00 Completed [facility] Pneumococcal 20 Conjugate, PCV20 (Prevnar 20) 2022-05-04 00:00:00 Completed [facility] TDAP 2022-05-04 00:00:00 Completed [facility] Pneumococcal 20 Conjugate, PCV20 (Prevnar 20) 2022-05-04 00:00:00 Completed [facility] TDAP 2022-05-04 00:00:00 Completed [facility] Pneumococcal 20 Conjugate, PCV20 (Prevnar 20) 2022-05-04 00:00:00 Completed [facility] TDAP 2022-05-04 00:00:00 Completed [facility] Pneumococcal 20 Conjugate, PCV20 (Prevnar 20) 2022-05-04 00:00:00 Completed [facility] TDAP 2022-05-04 00:00:00 Completed [facility] Pneumococcal 20 Conjugate, PCV20 (Prevnar 20) 2022-05-04 00:00:00 Completed [facility] TDAP 2022-05-04 00:00:00 Completed [facility] Pneumococcal 20 Conjugate, PCV20 (Prevnar 20) 2022-05-04 00:00:00 Completed [facility] TDAP 2022-05-04 00:00:00 Completed [facility] Pneumococcal 20 Conjugate, PCV20 (Prevnar 20) 2022-05-04 00:00:00 Completed [facility] TDAP 2022-05-04 00:00:00 Completed [facility] Pneumococcal 20 Conjugate, PCV20 (Prevnar 20) 2022-05-04 00:00:00 Completed [facility] TDAP 2022-05-04 00:00:00 Completed [facility] Pneumococcal 20 Conjugate, PCV20 (Prevnar 20) 2022-05-04 00:00:00 Completed [facility] TDAP 2022-05-04 00:00:00 Completed [facility] Pneumococcal 20 Conjugate, PCV20 (Prevnar 20) 2022-05-04 00:00:00 Completed [facility] TDAP 2022-05-04 00:00:00 Completed [facility] Pneumococcal 20 Conjugate, PCV20 (Prevnar 20) 2022-05-04 00:00:00 Completed [facility] TDAP 2022-05-04 00:00:00 Completed [facility] Pneumococcal 20 Conjugate, PCV20 (Prevnar 20) 2022-05-04 00:00:00 Completed [facility] TDAP 2022-05-04 00:00:00 Completed [facility] Pneumococcal 20 Conjugate, PCV20 (Prevnar 20) 2022-05-04 00:00:00 Completed [facility] TDAP 2022-05-04 00:00:00 Completed [facility] Pneumococcal 20 Conjugate, PCV20 (Prevnar 20) 2022-05-04 00:00:00 Completed [facility] TDAP 2022-05-04 00:00:00 Completed [facility] Pneumococcal 20 Conjugate, PCV20 (Prevnar 20) 2022-05-04 00:00:00 Completed [facility] TDAP 2022-05-04 00:00:00 Completed [facility] Pneumococcal 20 Conjugate, PCV20 (Prevnar 20) 2022-05-04 00:00:00 Completed [facility] TDAP 2022-05-04 00:00:00 Completed [facility] Pneumococcal 20 Conjugate, PCV20 (Prevnar 20) 2022-05-04 00:00:00 Completed [facility] TDAP 2022-05-04 00:00:00 Completed [facility] Pneumococcal 20 Conjugate, PCV20 (Prevnar 20) 2022-05-04 00:00:00 Completed [facility] TDAP 2022-05-04 00:00:00 Completed [facility] Pneumococcal 20 Conjugate, PCV20 (Prevnar 20) 2022-05-04 00:00:00 Completed [facility] TDAP 2022-05-04 00:00:00 Completed [facility] Pneumococcal 20 Conjugate, PCV20 (Prevnar 20) 2022-05-04 00:00:00 Completed [facility] TDAP 2022-05-04 00:00:00 Completed [facility] Pneumococcal 20 Conjugate, PCV20 (Prevnar 20) 2022-05-04 00:00:00 Completed [facility] TDAP 2022-05-04 00:00:00 Completed [facility] Pneumococcal 20 Conjugate, PCV20 (Prevnar 20) 2022-05-04 00:00:00 Completed [facility] TDAP 2022-05-04 00:00:00 Completed [facility] Pneumococcal 20 Conjugate, PCV20 (Prevnar 20) 2022-05-04 00:00:00 Completed [facility] TDAP 2022-05-04 00:00:00 Completed [facility] Pneumococcal 20 Conjugate, PCV20 (Prevnar 20) 2022-05-04 00:00:00 Completed [facility] TDAP 2022-05-04 00:00:00 Completed [facility] Pneumococcal 20 Conjugate, PCV20 (Prevnar 20) 2022-05-04 00:00:00 Completed [facility] TDAP 2022-05-04 00:00:00 Completed [facility] Pneumococcal 20 Conjugate, PCV20 (Prevnar 20) 2022-05-04 00:00:00 Completed [facility] TDAP 2022-05-04 00:00:00 Completed [facility] Pneumococcal 20 Conjugate, PCV20 (Prevnar 20) 2022-05-04 00:00:00 Completed [facility] TDAP 2022-05-04 00:00:00 Completed [facility] Pneumococcal 20 Conjugate, PCV20 (Prevnar 20) 2022-05-04 00:00:00 Completed [facility] TDAP 2022-05-04 00:00:00 Completed [facility] Pneumococcal 20 Conjugate, PCV20 (Prevnar 20) 2022-05-04 00:00:00 Completed [facility] TDAP 2022-05-04 00:00:00 Completed [facility] Pneumococcal 20 Conjugate, PCV20 (Prevnar 20) 2022-05-04 00:00:00 Completed [facility] TDAP 2022-05-04 00:00:00 Completed [facility] Pneumococcal 20 Conjugate, PCV20 (Prevnar 20) 2022-05-04 00:00:00 Completed [facility] TDAP 2022-05-04 00:00:00 Completed [facility] Pneumococcal 20 Conjugate, PCV20 (Prevnar 20) 2022-05-04 00:00:00 Completed [facility] TDAP 2022-05-04 00:00:00 Completed [facility] Pneumococcal 20 Conjugate, PCV20 (Prevnar 20) 2022-05-04 00:00:00 Completed [facility] TDAP 2022-05-04 00:00:00 Completed [facility] Pneumococcal 20 Conjugate, PCV20 (Prevnar 20) 2022-05-04 00:00:00 Completed [facility] TDAP 2022-05-04 00:00:00 Completed [facility] Pneumococcal 20 Conjugate, PCV20 (Prevnar 20) 2022-05-04 00:00:00 Completed [facility] TDAP 2022-05-04 00:00:00 Completed [facility] Pneumococcal 20 Conjugate, PCV20 (Prevnar 20) 2022-05-04 00:00:00 Completed [facility] TDAP 2022-05-04 00:00:00 Completed [facility] Pneumococcal 20 Conjugate, PCV20 (Prevnar 20) 2022-05-04 00:00:00 Completed [facility] TDAP 2022-05-04 00:00:00 Completed [facility] Pneumococcal 20 Conjugate, PCV20 (Prevnar 20) 2022-05-04 00:00:00 Completed [facility] TDAP 2022-05-04 00:00:00 Completed [facility] Pneumococcal 20 Conjugate, PCV20 (Prevnar 20) 2022-05-04 00:00:00 Completed [facility] TDAP 2022-05-04 00:00:00 Completed [facility] Pneumococcal 20 Conjugate, PCV20 (Prevnar 20) 2022-05-04 00:00:00 Completed [facility] TDAP 2022-05-04 00:00:00 Completed [facility] Pneumococcal 20 Conjugate, PCV20 (Prevnar 20) 2022-05-04 00:00:00 Completed [facility] TDAP 2022-05-04 00:00:00 Completed [facility] Pneumococcal 20 Conjugate, PCV20 (Prevnar 20) 2022-05-04 00:00:00 Completed [facility] TDAP 2022-05-04 00:00:00 Completed [facility] Pneumococcal 20 Conjugate, PCV20 (Prevnar 20) 2022-05-04 00:00:00 Completed [facility] TDAP 2022-05-04 00:00:00 Completed [facility] Pneumococcal 20 Conjugate, PCV20 (Prevnar 20) 2022-05-04 00:00:00 Completed [facility] TDAP 2022-05-04 00:00:00 Completed [facility] Pneumococcal 20 Conjugate, PCV20 (Prevnar 20) 2022-05-04 00:00:00 Completed [facility] TDAP 2022-05-04 00:00:00 Completed [facility] Pneumococcal 20 Conjugate, PCV20 (Prevnar 20) 2022-05-04 00:00:00 Completed [facility] TDAP 2022-05-04 00:00:00 Completed [facility] Pneumococcal 20 Conjugate, PCV20 (Prevnar 20) 2022-05-04 00:00:00 Completed [facility] TDAP 2022-05-04 00:00:00 Completed [facility] Pneumococcal 20 Conjugate, PCV20 (Prevnar 20) 2022-05-04 00:00:00 Completed [facility] TDAP 2022-05-04 00:00:00 Completed [facility] Pneumococcal 20 Conjugate, PCV20 (Prevnar 20) 2022-05-04 00:00:00 Completed [facility] TDAP 2022-05-04 00:00:00 Completed [facility] Pneumococcal 20 Conjugate, PCV20 (Prevnar 20) 2022-05-04 00:00:00 Completed [facility] TDAP 2022-05-04 00:00:00 Completed [facility] Pneumococcal 20 Conjugate, PCV20 (Prevnar 20) 2022-05-04 00:00:00 Completed [facility] TDAP 2022-05-04 00:00:00 Completed [facility] Pneumococcal 20 Conjugate, PCV20 (Prevnar 20) 2022-05-04 00:00:00 Completed [facility] TDAP 2022-05-04 00:00:00 Completed [facility] Pneumococcal 20 Conjugate, PCV20 (Prevnar 20) 2022-05-04 00:00:00 Completed [facility] TDAP 2022-05-04 00:00:00 Completed [facility] Pneumococcal 20 Conjugate, PCV20 (Prevnar 20) 2022-05-04 00:00:00 Completed [facility] TDAP 2022-05-04 00:00:00 Completed [facility] Pneumococcal 20 Conjugate, PCV20 (Prevnar 20) 2022-05-04 00:00:00 Completed [facility] TDAP 2022-05-04 00:00:00 Completed [facility] Pneumococcal 20 Conjugate, PCV20 (Prevnar 20) 2022-05-04 00:00:00 Completed [facility] TDAP 2022-05-04 00:00:00 Completed [facility] Pneumococcal 20 Conjugate, PCV20 (Prevnar 20) 2022-05-04 00:00:00 Completed [facility] TDAP 2022-05-04 00:00:00 Completed [facility] Pneumococcal 20 Conjugate, PCV20 (Prevnar 20) 2022-05-04 00:00:00 Completed [facility] TDAP 2022-05-04 00:00:00 Completed [facility] Pneumococcal 20 Conjugate, PCV20 (Prevnar 20) 2022-05-04 00:00:00 Completed [facility] TDAP 2022-05-04 00:00:00 Completed [facility] Pneumococcal 20 Conjugate, PCV20 (Prevnar 20) 2022-05-04 00:00:00 Completed [facility] TDAP 2022-05-04 00:00:00 Completed [facility] Pneumococcal 20 Conjugate, PCV20 (Prevnar 20) 2022-05-04 00:00:00 Completed [facility] TDAP 2022-05-04 00:00:00 Completed [facility] Pneumococcal 20 Conjugate, PCV20 (Prevnar 20) 2022-05-04 00:00:00 Completed [facility] TDAP 2022-05-04 00:00:00 Completed [facility] Pneumococcal 20 Conjugate, PCV20 (Prevnar 20) 2022-05-04 00:00:00 Completed [facility] TDAP 2022-05-04 00:00:00 Completed [facility] Pneumococcal 20 Conjugate, PCV20 (Prevnar 20) 2022-05-04 00:00:00 Completed [facility] TDAP 2022-05-04 00:00:00 Completed [facility] Pneumococcal 20 Conjugate, PCV20 (Prevnar 20) 2022-05-04 00:00:00 Completed [facility] TDAP 2022-05-04 00:00:00 Completed [facility] Pneumococcal 20 Conjugate, PCV20 (Prevnar 20) 2022-05-04 00:00:00 Completed [facility] TDAP 2022-05-04 00:00:00 Completed [facility] Pneumococcal 20 Conjugate, PCV20 (Prevnar 20) 2022-05-04 00:00:00 Completed [facility] TDAP 2022-05-04 00:00:00 Completed [facility] Pneumococcal 20 Conjugate, PCV20 (Prevnar 20) 2022-05-04 00:00:00 Completed [facility] Td 2021-12-19 00:00:00 Completed [facility] Td 2021-12-19 00:00:00 Completed [facility] Td 2021-12-19 00:00:00 Completed [facility] Td 2021-12-19 00:00:00 Completed [facility] Td 2021-12-19 00:00:00 Completed [facility] Td 2021-12-19 00:00:00 Completed [facility] Td 2021-12-19 00:00:00 Completed [facility] Td 2021-12-19 00:00:00 Completed [facility] Td 2021-12-19 00:00:00 Completed [facility] Td 2021-12-19 00:00:00 Completed [facility] Td 2021-12-19 00:00:00 Completed [facility] TD, NOS 2021-12-19 00:00:00 Completed [facility] TD, NOS 2021-12-19 00:00:00 Completed [facility] TD, NOS 2021-12-19 00:00:00 Completed [facility] TD, NOS 2021-12-19 00:00:00 Completed [facility] TD, NOS 2021-12-19 00:00:00 Completed [facility] TD, NOS 2021-12-19 00:00:00 Completed [facility] TD, NOS 2021-12-19 00:00:00 Completed [facility] TD, NOS 2021-12-19 00:00:00 Completed [facility] TD, NOS 2021-12-19 00:00:00 Completed [facility] TD, NOS 2021-12-19 00:00:00 Completed [facility] TD, NOS 2021-12-19 00:00:00 Completed [facility] TD, NOS 2021-12-19 00:00:00 Completed [facility] TD, NOS 2021-12-19 00:00:00 Completed [facility] TD, NOS 2021-12-19 00:00:00 Completed [facility] TD, NOS 2021-12-19 00:00:00 Completed [facility] TD, NOS 2021-12-19 00:00:00 Completed [facility] TD, NOS 2021-12-19 00:00:00 Completed [facility] TD, NOS 2021-12-19 00:00:00 Completed [facility] TD, NOS 2021-12-19 00:00:00 Completed [facility] TD, NOS 2021-12-19 00:00:00 Completed [facility] TD, NOS 2021-12-19 00:00:00 Completed [facility] TD, NOS 2021-12-19 00:00:00 Completed [facility] TD, NOS 2021-12-19 00:00:00 Completed [facility] TD, NOS 2021-12-19 00:00:00 Completed [facility] TD, NOS 2021-12-19 00:00:00 Completed [facility] TD, NOS 2021-12-19 00:00:00 Completed [facility] TD, NOS 2021-12-19 00:00:00 Completed [facility] TD, NOS 2021-12-19 00:00:00 Completed [facility] TD, NOS 2021-12-19 00:00:00 Completed [facility] TD, NOS 2021-12-19 00:00:00 Completed [facility] TD, NOS 2021-12-19 00:00:00 Completed [facility] TD, NOS 2021-12-19 00:00:00 Completed [facility] TD, NOS 2021-12-19 00:00:00 Completed [facility] TD, NOS 2021-12-19 00:00:00 Completed [facility] TD, NOS 2021-12-19 00:00:00 Completed [facility] TD, NOS 2021-12-19 00:00:00 Completed [facility] TD, NOS 2021-12-19 00:00:00 Completed [facility] TD, NOS 2021-12-19 00:00:00 Completed [facility] TD, NOS 2021-12-19 00:00:00 Completed [facility] TD, NOS 2021-12-19 00:00:00 Completed [facility] TD, NOS 2021-12-19 00:00:00 Completed [facility] TD, NOS 2021-12-19 00:00:00 Completed [facility] TD, NOS 2021-12-19 00:00:00 Completed [facility] TD, NOS 2021-12-19 00:00:00 Completed [facility] TD, NOS 2021-12-19 00:00:00 Completed [facility] TD, NOS 2021-12-19 00:00:00 Completed [facility] TD, NOS 2021-12-19 00:00:00 Completed [facility] TD, NOS 2021-12-19 00:00:00 Completed [facility] TD, NOS 2021-12-19 00:00:00 Completed [facility] TD, NOS 2021-12-19 00:00:00 Completed [facility] TD, NOS 2021-12-19 00:00:00 Completed [facility] TD, NOS 2021-12-19 00:00:00 Completed [facility] TD, NOS 2021-12-19 00:00:00 Completed [facility] TD, NOS 2021-12-19 00:00:00 Completed [facility] TD, NOS 2021-12-19 00:00:00 Completed [facility] TD, NOS 2021-12-19 00:00:00 Completed [facility] TD, NOS 2021-12-19 00:00:00 Completed [facility] TD, NOS 2021-12-19 00:00:00 Completed [facility] TD, NOS 2021-12-19 00:00:00 Completed [facility] TD, NOS 2021-12-19 00:00:00 Completed [facility] TD, NOS 2021-12-19 00:00:00 Completed [facility] TD, NOS 2021-12-19 00:00:00 Completed [facility] TD, NOS 2021-12-19 00:00:00 Completed [facility] TD, NOS 2021-12-19 00:00:00 Completed [facility] TD, NOS 2021-12-19 00:00:00 Completed [facility] TD, NOS 2021-12-19 00:00:00 Completed [facility] TD, NOS 2021-12-19 00:00:00 Completed [facility] TD, NOS 2021-12-19 00:00:00 Completed [facility] TD, NOS 2021-12-19 00:00:00 Completed [facility] TD, NOS 2021-12-19 00:00:00 Completed [facility] TD, NOS 2021-12-19 00:00:00 Completed [facility] TD, NOS 2021-12-19 00:00:00 Completed [facility] TD, NOS 2021-12-19 00:00:00 Completed [facility] TD, NOS 2021-12-19 00:00:00 Completed [facility] TD, NOS 2021-12-19 00:00:00 Completed [facility] TD, NOS 2021-12-19 00:00:00 Completed [facility] TD, NOS 2021-12-19 00:00:00 Completed [facility] TD, NOS 2021-12-19 00:00:00 Completed [facility] TD, NOS 2021-12-19 00:00:00 Completed [facility] TD, NOS 2021-12-19 00:00:00 Completed [facility] TD, NOS 2021-12-19 00:00:00 Completed [facility] TD, NOS 2021-12-19 00:00:00 Completed [facility] TD, NOS 2021-12-19 00:00:00 Completed [facility] TD, NOS 2021-12-19 00:00:00 Completed [facility] TD, NOS 2021-12-19 00:00:00 Completed [facility] TD, NOS 2021-12-19 00:00:00 Completed [facility] TD, NOS 2021-12-19 00:00:00 Completed [facility] TD, NOS 2021-12-19 00:00:00 Completed [facility] TD, NOS 2021-12-19 00:00:00 Completed [facility] TD, NOS 2021-12-19 00:00:00 Completed [facility] TD, NOS 2021-12-19 00:00:00 Completed [facility] TD, NOS 2021-12-19 00:00:00 Completed [facility] TD, NOS 2021-12-19 00:00:00 Completed [facility] TD, NOS 2021-12-19 00:00:00 Completed [facility] TD, NOS 2021-12-19 00:00:00 Completed [facility] TD, NOS 2021-12-19 00:00:00 Completed [facility] TD, NOS 2021-12-19 00:00:00 Completed [facility] TD, NOS 2021-12-19 00:00:00 Completed [facility] TD, NOS 2021-12-19 00:00:00 Completed [facility] TD, NOS 2021-12-19 00:00:00 Completed [facility] TD, NOS 2021-12-19 00:00:00 Completed [facility] TD, NOS 2021-12-19 00:00:00 Completed [facility] TD, NOS 2021-12-19 00:00:00 Completed [facility] TD, NOS 2021-12-19 00:00:00 Completed [facility] TD, NOS 2021-12-19 00:00:00 Completed [facility] TD, NOS 2021-12-19 00:00:00 Completed [facility] TD, NOS 2021-12-19 00:00:00 Completed [facility] TD, NOS 2021-12-19 00:00:00 Completed [facility] TD, NOS 2021-12-19 00:00:00 Completed [facility] TD, NOS 2021-12-19 00:00:00 Completed [facility] TD, NOS 2021-12-19 00:00:00 Completed [facility] TD, NOS 2021-12-19 00:00:00 Completed [facility] TD, NOS 2021-12-19 00:00:00 Completed [facility] TD, NOS 2021-12-19 00:00:00 Completed [facility] TD, NOS 2021-12-19 00:00:00 Completed [facility] TD, NOS 2021-12-19 00:00:00 Completed [facility] TD, NOS 2021-12-19 00:00:00 Completed [facility] TD, NOS 2021-12-19 00:00:00 Completed [facility] TD, NOS 2021-12-19 00:00:00 Completed [facility] TD, NOS 2021-12-19 00:00:00 Completed [facility] TD, NOS 2021-12-19 00:00:00 Completed [facility] TD, NOS 2021-12-19 00:00:00 Completed [facility] TD, NOS 2021-12-19 00:00:00 Completed [facility] TD, NOS 2021-12-19 00:00:00 Completed [facility] TD, NOS 2021-12-19 00:00:00 Completed [facility] TD, NOS 2021-12-19 00:00:00 Completed [facility] TD, NOS 2021-12-19 00:00:00 Completed [facility] TD, NOS 2021-12-19 00:00:00 Completed [facility] TD, NOS 2021-12-19 00:00:00 Completed [facility] TD, NOS 2021-12-19 00:00:00 Completed [facility] TD, NOS 2021-12-19 00:00:00 Completed [facility] TD, NOS 2021-12-19 00:00:00 Completed [facility] TD, NOS 2021-12-19 00:00:00 Completed [facility] TD, NOS 2021-12-19 00:00:00 Completed [facility] TD, NOS 2021-12-19 00:00:00 Completed [facility] TD, NOS 2021-12-19 00:00:00 Completed [facility] TD, NOS 2021-12-19 00:00:00 Completed [facility] TD, NOS 2021-12-19 00:00:00 Completed [facility] TD, NOS 2021-12-19 00:00:00 Completed [facility] TD, NOS 2021-12-19 00:00:00 Completed [facility] TD, NOS 2021-12-19 00:00:00 Completed [facility] TD, NOS 2021-12-19 00:00:00 Completed [facility] TD, NOS 2021-12-19 00:00:00 Completed [facility] TD, NOS 2021-12-19 00:00:00 Completed [facility] TD, NOS 2021-12-19 00:00:00 Completed [facility] TD, NOS 2021-12-19 00:00:00 Completed [facility] TD, NOS 2021-12-19 00:00:00 Completed [facility] TD, NOS 2021-12-19 00:00:00 Completed [facility] TD, NOS 2021-12-19 00:00:00 Completed [facility] Pneumococcal Polysaccharide, PPSV23 (PNEUMOVAX) 2021-04-24 00:00:00 Completed [facility] Influenza Virus Vaccine,quad Im,preserve Free 65+ 2021-04-24 00:00:00 Completed [facility] Pneumococcal Polysaccharide, PPSV23 (PNEUMOVAX) 2021-04-24 00:00:00 Completed [facility] Influenza Virus Vaccine,quad Im,preserve Free 65+ 2021-04-24 00:00:00 Completed [facility] Pneumococcal Polysaccharide, PPSV23 (PNEUMOVAX) 2021-04-24 00:00:00 Completed [facility] Influenza Virus Vaccine,quad Im,preserve Free 65+ 2021-04-24 00:00:00 Completed [facility] Pneumococcal Polysaccharide, PPSV23 (PNEUMOVAX) 2021-04-24 00:00:00 Completed [facility] Influenza Virus Vaccine,quad Im,preserve Free 65+ 2021-04-24 00:00:00 Completed [facility] Pneumococcal Polysaccharide, PPSV23 (PNEUMOVAX) 2021-04-24 00:00:00 Completed [facility] Influenza Virus Vaccine,quad Im,preserve Free 65+ 2021-04-24 00:00:00 Completed [facility] Pneumococcal Polysaccharide, PPSV23 (PNEUMOVAX) 2021-04-24 00:00:00 Completed [facility] Influenza Virus Vaccine,quad Im,preserve Free 65+ 2021-04-24 00:00:00 Completed [facility] Pneumococcal Polysaccharide, PPSV23 (PNEUMOVAX) 2021-04-24 00:00:00 Completed [facility] Influenza Virus Vaccine,quad Im,preserve Free 65+ 2021-04-24 00:00:00 Completed [facility] Pneumococcal Polysaccharide, PPSV23 (PNEUMOVAX) 2021-04-24 00:00:00 Completed [facility] Influenza Virus Vaccine,quad Im,preserve Free 65+ 2021-04-24 00:00:00 Completed [facility] Pneumococcal Polysaccharide, PPSV23 (PNEUMOVAX) 2021-04-24 00:00:00 Completed [facility] Influenza Virus Vaccine,quad Im,preserve Free 65+ 2021-04-24 00:00:00 Completed [facility] Pneumococcal Polysaccharide, PPSV23 (PNEUMOVAX) 2021-04-24 00:00:00 Completed [facility] Influenza Virus Vaccine,quad Im,preserve Free 65+ 2021-04-24 00:00:00 Completed [facility] Pneumococcal Polysaccharide, PPSV23 (PNEUMOVAX) 2021-04-24 00:00:00 Completed [facility] Influenza Virus Vaccine,quad Im,preserve Free 65+ 2021-04-24 00:00:00 Completed [facility] Pneumococcal Polysaccharide, PPSV23 (PNEUMOVAX) 2021-04-24 00:00:00 Completed [facility] Influenza Virus Vaccine,quad Im,preserve Free 65+ 2021-04-24 00:00:00 Completed [facility] Pneumococcal Polysaccharide, PPSV23 (PNEUMOVAX) 2021-04-24 00:00:00 Completed [facility] Influenza Virus Vaccine,quad Im,preserve Free 65+ 2021-04-24 00:00:00 Completed [facility] Pneumococcal Polysaccharide, PPSV23 (PNEUMOVAX) 2021-04-24 00:00:00 Completed [facility] Influenza Virus Vaccine,quad Im,preserve Free 65+ 2021-04-24 00:00:00 Completed [facility] Pneumococcal Polysaccharide, PPSV23 (PNEUMOVAX) 2021-04-24 00:00:00 Completed [facility] Influenza Virus Vaccine,quad Im,preserve Free 65+ 2021-04-24 00:00:00 Completed [facility] Pneumococcal Polysaccharide, PPSV23 (PNEUMOVAX) 2021-04-24 00:00:00 Completed [facility] Influenza Virus Vaccine,quad Im,preserve Free 65+ 2021-04-24 00:00:00 Completed [facility] Pneumococcal Polysaccharide, PPSV23 (PNEUMOVAX) 2021-04-24 00:00:00 Completed [facility] Influenza Virus Vaccine,quad Im,preserve Free 65+ 2021-04-24 00:00:00 Completed [facility] Pneumococcal Polysaccharide, PPSV23 (PNEUMOVAX) 2021-04-24 00:00:00 Completed [facility] Influenza Virus Vaccine,quad Im,preserve Free + 2021-04-24 00:00:00 Completed [facility] Pneumococcal Polysaccharide, PPSV23 (PNEUMOVAX) 2021-04-24 00:00:00 Completed [facility] Influenza Virus Vaccine,quad Im,preserve Free 2021-04-24 00:00:00 Completed [facility] Pneumococcal Polysaccharide, PPSV23 (PNEUMOVAX) 2021-04-24 00:00:00 Completed [facility] Influenza Virus Vaccine,quad Im,preserve Free 2021-04-24 00:00:00 Completed [facility] Pneumococcal Polysaccharide, PPSV23 (PNEUMOVAX) 2021-04-24 00:00:00 Completed [facility] Influenza Virus Vaccine,quad Im,preserve Free 2021-04-24 00:00:00 Completed [facility] Pneumococcal Polysaccharide, PPSV23 (PNEUMOVAX) 2021-04-24 00:00:00 Completed [facility] Influenza Virus Vaccine,quad Im,preserve Free 2021-04-24 00:00:00 Completed [facility] Pneumococcal Polysaccharide, PPSV23 (PNEUMOVAX) 2021-04-24 00:00:00 Completed [facility] Influenza Virus Vaccine,quad Im,preserve Free + 2021-04-24 00:00:00 Completed [facility] Pneumococcal Polysaccharide, PPSV23 (PNEUMOVAX) 2021-04-24 00:00:00 Completed [facility] Influenza Virus Vaccine,quad Im,preserve Free + 2021-04-24 00:00:00 Completed [facility] Pneumococcal Polysaccharide, PPSV23 (PNEUMOVAX) 2021-04-24 00:00:00 Completed [facility] Influenza Virus Vaccine,quad Im,preserve Free 65+ 2021-04-24 00:00:00 Completed [facility] Pneumococcal Polysaccharide, PPSV23 (PNEUMOVAX) 2021-04-24 00:00:00 Completed [facility] Influenza Virus Vaccine,quad Im,preserve Free 65+ 2021-04-24 00:00:00 Completed [facility] Pneumococcal Polysaccharide, PPSV23 (PNEUMOVAX) 2021-04-24 00:00:00 Completed [facility] Influenza Virus Vaccine,quad Im,preserve Free + 2021-04-24 00:00:00 Completed [facility] Pneumococcal Polysaccharide, PPSV23 (PNEUMOVAX) 2021-04-24 00:00:00 Completed [facility] Influenza Virus Vaccine,quad Im,preserve Free + 2021-04-24 00:00:00 Completed [facility] Pneumococcal Polysaccharide, PPSV23 (PNEUMOVAX) 2021-04-24 00:00:00 Completed [facility] Influenza Virus Vaccine,quad Im,preserve Free 2021-04-24 00:00:00 Completed [facility] Pneumococcal Polysaccharide, PPSV23 (PNEUMOVAX) 2021-04-24 00:00:00 Completed [facility] Influenza Virus Vaccine,quad Im,preserve Free 2021-04-24 00:00:00 Completed [facility] Pneumococcal Polysaccharide, PPSV23 (PNEUMOVAX) 2021-04-24 00:00:00 Completed [facility] Influenza Virus Vaccine,quad Im,preserve Free + 2021-04-24 00:00:00 Completed [facility] Pneumococcal Polysaccharide, PPSV23 (PNEUMOVAX) 2021-04-24 00:00:00 Completed [facility] Influenza Virus Vaccine,quad Im,preserve Free + 2021-04-24 00:00:00 Completed [facility] Pneumococcal Polysaccharide, PPSV23 (PNEUMOVAX) 2021-04-24 00:00:00 Completed [facility] Influenza Virus Vaccine,quad Im,preserve Free 65+ 2021-04-24 00:00:00 Completed [facility] Pneumococcal Polysaccharide, PPSV23 (PNEUMOVAX) 2021-04-24 00:00:00 Completed [facility] Influenza Virus Vaccine,quad Im,preserve Free + 2021-04-24 00:00:00 Completed [facility] Pneumococcal Polysaccharide, PPSV23 (PNEUMOVAX) 2021-04-24 00:00:00 Completed [facility] Influenza Virus Vaccine,quad Im,preserve Free 65+ 2021-04-24 00:00:00 Completed [facility] Pneumococcal Polysaccharide, PPSV23 (PNEUMOVAX) 2021-04-24 00:00:00 Completed [facility] Influenza Virus Vaccine,quad Im,preserve Free + 2021-04-24 00:00:00 Completed [facility] Pneumococcal Polysaccharide, PPSV23 (PNEUMOVAX) 2021-04-24 00:00:00 Completed [facility] Influenza Virus Vaccine,quad Im,preserve Free 2021-04-24 00:00:00 Completed [facility] Pneumococcal Polysaccharide, PPSV23 (PNEUMOVAX) 2021-04-24 00:00:00 Completed [facility] Influenza Virus Vaccine,quad Im,preserve Free 2021-04-24 00:00:00 Completed [facility] Pneumococcal Polysaccharide, PPSV23 (PNEUMOVAX) 2021-04-24 00:00:00 Completed [facility] Influenza Virus Vaccine,quad Im,preserve Free 2021-04-24 00:00:00 Completed [facility] Pneumococcal Polysaccharide, PPSV23 (PNEUMOVAX) 2021-04-24 00:00:00 Completed [facility] Influenza Virus Vaccine,quad Im,preserve Free 2021-04-24 00:00:00 Completed [facility] Pneumococcal Polysaccharide, PPSV23 (PNEUMOVAX) 2021-04-24 00:00:00 Completed [facility] Influenza Virus Vaccine,quad Im,preserve Free 2021-04-24 00:00:00 Completed [facility] Pneumococcal Polysaccharide, PPSV23 (PNEUMOVAX) 2021-04-24 00:00:00 Completed [facility] Influenza Virus Vaccine,quad Im,preserve Free + 2021-04-24 00:00:00 Completed [facility] Pneumococcal Polysaccharide, PPSV23 (PNEUMOVAX) 2021-04-24 00:00:00 Completed [facility] Influenza Virus Vaccine,quad Im,preserve Free + 2021-04-24 00:00:00 Completed [facility] Pneumococcal Polysaccharide, PPSV23 (PNEUMOVAX) 2021-04-24 00:00:00 Completed [facility] Influenza Virus Vaccine,quad Im,preserve Free 65+ 2021-04-24 00:00:00 Completed [facility] Pneumococcal Polysaccharide, PPSV23 (PNEUMOVAX) 2021-04-24 00:00:00 Completed [facility] Influenza Virus Vaccine,quad Im,preserve Free 2021-04-24 00:00:00 Completed [facility] Pneumococcal Polysaccharide, PPSV23 (PNEUMOVAX) 2021-04-24 00:00:00 Completed [facility] Influenza Virus Vaccine,quad Im,preserve Free 2021-04-24 00:00:00 Completed [facility] Pneumococcal Polysaccharide, PPSV23 (PNEUMOVAX) 2021-04-24 00:00:00 Completed [facility] Influenza Virus Vaccine,quad Im,preserve Free 2021-04-24 00:00:00 Completed [facility] Pneumococcal Polysaccharide, PPSV23 (PNEUMOVAX) 2021-04-24 00:00:00 Completed [facility] Influenza Virus Vaccine,quad Im,preserve Free 2021-04-24 00:00:00 Completed [facility] Pneumococcal Polysaccharide, PPSV23 (PNEUMOVAX) 2021-04-24 00:00:00 Completed [facility] Influenza Virus Vaccine,quad Im,preserve Free 2021-04-24 00:00:00 Completed [facility] Pneumococcal Polysaccharide, PPSV23 (PNEUMOVAX) 2021-04-24 00:00:00 Completed [facility] Influenza Virus Vaccine,quad Im,preserve Free 2021-04-24 00:00:00 Completed [facility] Pneumococcal Polysaccharide, PPSV23 (PNEUMOVAX) 2021-04-24 00:00:00 Completed [facility] Influenza Virus Vaccine,quad Im,preserve Free + 2021-04-24 00:00:00 Completed [facility] Pneumococcal Polysaccharide, PPSV23 (PNEUMOVAX) 2021-04-24 00:00:00 Completed [facility] Influenza Virus Vaccine,quad Im,preserve Free 65+ 2021-04-24 00:00:00 Completed [facility] Pneumococcal Polysaccharide, PPSV23 (PNEUMOVAX) 2021-04-24 00:00:00 Completed [facility] Influenza Virus Vaccine,quad Im,preserve Free 65+ 2021-04-24 00:00:00 Completed [facility] Pneumococcal Polysaccharide, PPSV23 (PNEUMOVAX) 2021-04-24 00:00:00 Completed [facility] Influenza Virus Vaccine,quad Im,preserve Free 65+ 2021-04-24 00:00:00 Completed [facility] Pneumococcal Polysaccharide, PPSV23 (PNEUMOVAX) 2021-04-24 00:00:00 Completed [facility] Influenza Virus Vaccine,quad Im,preserve Free 65+ 2021-04-24 00:00:00 Completed [facility] Pneumococcal Polysaccharide, PPSV23 (PNEUMOVAX) 2021-04-24 00:00:00 Completed [facility] Influenza Virus Vaccine,quad Im,preserve Free 2021-04-24 00:00:00 Completed [facility] Pneumococcal Polysaccharide, PPSV23 (PNEUMOVAX) 2021-04-24 00:00:00 Completed [facility] Influenza Virus Vaccine,quad Im,preserve Free 2021-04-24 00:00:00 Completed [facility] Pneumococcal Polysaccharide, PPSV23 (PNEUMOVAX) 2021-04-24 00:00:00 Completed [facility] Influenza Virus Vaccine,quad Im,preserve Free 2021-04-24 00:00:00 Completed [facility] Pneumococcal Polysaccharide, PPSV23 (PNEUMOVAX) 2021-04-24 00:00:00 Completed [facility] Influenza Virus Vaccine,quad Im,preserve Free 2021-04-24 00:00:00 Completed [facility] Pneumococcal Polysaccharide, PPSV23 (PNEUMOVAX) 2021-04-24 00:00:00 Completed [facility] Influenza Virus Vaccine,quad Im,preserve Free 65+ 2021-04-24 00:00:00 Completed [facility] Pneumococcal Polysaccharide, PPSV23 (PNEUMOVAX) 2021-04-24 00:00:00 Completed [facility] Influenza Virus Vaccine,quad Im,preserve Free 65+ 2021-04-24 00:00:00 Completed [facility] Pneumococcal Polysaccharide, PPSV23 (PNEUMOVAX) 2021-04-24 00:00:00 Completed [facility] Influenza Virus Vaccine,quad Im,preserve Free 65+ 2021-04-24 00:00:00 Completed [facility] Pneumococcal Polysaccharide, PPSV23 (PNEUMOVAX) 2021-04-24 00:00:00 Completed [facility] Influenza Virus Vaccine,quad Im,preserve Free 65+ 2021-04-24 00:00:00 Completed [facility] Pneumococcal Polysaccharide, PPSV23 (PNEUMOVAX) 2021-04-24 00:00:00 Completed [facility] Influenza Virus Vaccine,quad Im,preserve Free + 2021-04-24 00:00:00 Completed [facility] Pneumococcal Polysaccharide, PPSV23 (PNEUMOVAX) 2021-04-24 00:00:00 Completed [facility] Influenza Virus Vaccine,quad Im,preserve Free 2021-04-24 00:00:00 Completed [facility] Pneumococcal Polysaccharide, PPSV23 (PNEUMOVAX) 2021-04-24 00:00:00 Completed [facility] Influenza Virus Vaccine,quad Im,preserve Free 2021-04-24 00:00:00 Completed [facility] Pneumococcal Polysaccharide, PPSV23 (PNEUMOVAX) 2021-04-24 00:00:00 Completed [facility] Influenza Virus Vaccine,quad Im,preserve Free 2021-04-24 00:00:00 Completed [facility] Pneumococcal Polysaccharide, PPSV23 (PNEUMOVAX) 2021-04-24 00:00:00 Completed [facility] Influenza Virus Vaccine,quad Im,preserve Free 2021-04-24 00:00:00 Completed [facility] Pneumococcal Polysaccharide, PPSV23 (PNEUMOVAX) 2021-04-24 00:00:00 Completed [facility] Influenza Virus Vaccine,quad Im,preserve Free + 2021-04-24 00:00:00 Completed [facility] Pneumococcal Polysaccharide, PPSV23 (PNEUMOVAX) 2021-04-24 00:00:00 Completed [facility] Influenza Virus Vaccine,quad Im,preserve Free + 2021-04-24 00:00:00 Completed [facility] Pneumococcal Polysaccharide, PPSV23 (PNEUMOVAX) 2021-04-24 00:00:00 Completed [facility] Influenza Virus Vaccine,quad Im,preserve Free 65+ 2021-04-24 00:00:00 Completed [facility] Pneumococcal Polysaccharide, PPSV23 (PNEUMOVAX) 2021-04-24 00:00:00 Completed [facility] Influenza Virus Vaccine,quad Im,preserve Free + 2021-04-24 00:00:00 Completed [facility] Pneumococcal Polysaccharide, PPSV23 (PNEUMOVAX) 2021-04-24 00:00:00 Completed [facility] Influenza Virus Vaccine,quad Im,preserve Free + 2021-04-24 00:00:00 Completed [facility] Pneumococcal Polysaccharide, PPSV23 (PNEUMOVAX) 2021-04-24 00:00:00 Completed [facility] Influenza Virus Vaccine,quad Im,preserve Free 2021-04-24 00:00:00 Completed [facility] Pneumococcal Polysaccharide, PPSV23 (PNEUMOVAX) 2021-04-24 00:00:00 Completed [facility] Influenza Virus Vaccine,quad Im,preserve Free 2021-04-24 00:00:00 Completed [facility] Pneumococcal Polysaccharide, PPSV23 (PNEUMOVAX) 2021-04-24 00:00:00 Completed [facility] Influenza Virus Vaccine,quad Im,preserve Free 2021-04-24 00:00:00 Completed [facility] Pneumococcal Polysaccharide, PPSV23 (PNEUMOVAX) 2021-04-24 00:00:00 Completed [facility] Influenza Virus Vaccine,quad Im,preserve Free 2021-04-24 00:00:00 Completed [facility] Pneumococcal Polysaccharide, PPSV23 (PNEUMOVAX) 2021-04-24 00:00:00 Completed [facility] Influenza Virus Vaccine,quad Im,preserve Free + 2021-04-24 00:00:00 Completed [facility] Pneumococcal Polysaccharide, PPSV23 (PNEUMOVAX) 2021-04-24 00:00:00 Completed [facility] Influenza Virus Vaccine,quad Im,preserve Free + 2021-04-24 00:00:00 Completed [facility] Pneumococcal Polysaccharide, PPSV23 (PNEUMOVAX) 2021-04-24 00:00:00 Completed [facility] Influenza Virus Vaccine,quad Im,preserve Free + 2021-04-24 00:00:00 Completed [facility] Pneumococcal Polysaccharide, PPSV23 (PNEUMOVAX) 2021-04-24 00:00:00 Completed [facility] Influenza Virus Vaccine,quad Im,preserve Free + 2021-04-24 00:00:00 Completed [facility] Pneumococcal Polysaccharide, PPSV23 (PNEUMOVAX) 2021-04-24 00:00:00 Completed [facility] Influenza Virus Vaccine,quad Im,preserve Free + 2021-04-24 00:00:00 Completed [facility] Pneumococcal Polysaccharide, PPSV23 (PNEUMOVAX) 2021-04-24 00:00:00 Completed [facility] Influenza Virus Vaccine,quad Im,preserve Free 2021-04-24 00:00:00 Completed [facility] Pneumococcal Polysaccharide, PPSV23 (PNEUMOVAX) 2021-04-24 00:00:00 Completed [facility] Influenza Virus Vaccine,quad Im,preserve Free 2021-04-24 00:00:00 Completed [facility] Pneumococcal Polysaccharide, PPSV23 (PNEUMOVAX) 2021-04-24 00:00:00 Completed [facility] Influenza Virus Vaccine,quad Im,preserve Free 2021-04-24 00:00:00 Completed [facility] Pneumococcal Polysaccharide, PPSV23 (PNEUMOVAX) 2021-04-24 00:00:00 Completed [facility] Influenza Virus Vaccine,quad Im,preserve Free 2021-04-24 00:00:00 Completed [facility] Pneumococcal Polysaccharide, PPSV23 (PNEUMOVAX) 2021-04-24 00:00:00 Completed [facility] Influenza Virus Vaccine,quad Im,preserve Free 2021-04-24 00:00:00 Completed [facility] Pneumococcal Polysaccharide, PPSV23 (PNEUMOVAX) 2021-04-24 00:00:00 Completed [facility] Influenza Virus Vaccine,quad Im,preserve Free + 2021-04-24 00:00:00 Completed [facility] Pneumococcal Polysaccharide, PPSV23 (PNEUMOVAX) 2021-04-24 00:00:00 Completed [facility] Influenza Virus Vaccine,quad Im,preserve Free 65+ 2021-04-24 00:00:00 Completed [facility] Pneumococcal Polysaccharide, PPSV23 (PNEUMOVAX) 2021-04-24 00:00:00 Completed [facility] Influenza Virus Vaccine,quad Im,preserve Free 65+ 2021-04-24 00:00:00 Completed [facility] Pneumococcal Polysaccharide, PPSV23 (PNEUMOVAX) 2021-04-24 00:00:00 Completed [facility] Influenza Virus Vaccine,quad Im,preserve Free 65+ 2021-04-24 00:00:00 Completed [facility] Pneumococcal Polysaccharide, PPSV23 (PNEUMOVAX) 2021-04-24 00:00:00 Completed [facility] Influenza Virus Vaccine,quad Im,preserve Free + 2021-04-24 00:00:00 Completed [facility] Pneumococcal Polysaccharide, PPSV23 (PNEUMOVAX) 2021-04-24 00:00:00 Completed [facility] Influenza Virus Vaccine,quad Im,preserve Free + 2021-04-24 00:00:00 Completed [facility] Pneumococcal Polysaccharide, PPSV23 (PNEUMOVAX) 2021-04-24 00:00:00 [facility] [facility] Influenza Virus Vaccine,quad Im,preserve Free + 2021-04-24 00:00:00 Completed [facility] Pneumococcal Polysaccharide, PPSV23 (PNEUMOVAX) 2021-04-24 00:00:00 Completed [facility] Influenza Virus Vaccine,quad Im,preserve Free 2021-04-24 00:00:00 Completed [facility] Pneumococcal Polysaccharide, PPSV23 (PNEUMOVAX) 2021-04-24 00:00:00 Completed [facility] Influenza Virus Vaccine,quad Im,preserve Free 65+ 2021-04-24 00:00:00 Completed [facility] Pneumococcal Polysaccharide, PPSV23 (PNEUMOVAX) 2021-04-24 00:00:00 Completed [facility] Influenza Virus Vaccine,quad Im,preserve Free + 2021-04-24 00:00:00 Completed [facility] Pneumococcal Polysaccharide, PPSV23 (PNEUMOVAX) 2021-04-24 00:00:00 Completed [facility] Influenza Virus Vaccine,quad Im,preserve Free + 2021-04-24 00:00:00 Completed [facility] Pneumococcal Polysaccharide, PPSV23 (PNEUMOVAX) 2021-04-24 00:00:00 Completed [facility] Influenza Virus Vaccine,quad Im,preserve Free 65+ 2021-04-24 00:00:00 Completed [facility] Pneumococcal Polysaccharide, PPSV23 (PNEUMOVAX) 2021-04-24 00:00:00 Completed [facility] Influenza Virus Vaccine,quad Im,preserve Free 2021-04-24 00:00:00 Completed [facility] Pneumococcal Polysaccharide, PPSV23 (PNEUMOVAX) 2021-04-24 00:00:00 Completed [facility] Influenza Virus Vaccine,quad Im,preserve Free 2021-04-24 00:00:00 Completed [facility] Pneumococcal Polysaccharide, PPSV23 (PNEUMOVAX) 2021-04-24 00:00:00 Completed [facility] Influenza Virus Vaccine,quad Im,preserve Free + 2021-04-24 00:00:00 Completed [facility] Pneumococcal Polysaccharide, PPSV23 (PNEUMOVAX) 2021-04-24 00:00:00 Completed [facility] Influenza Virus Vaccine,quad Im,preserve Free 2021-04-24 00:00:00 Completed [facility] Pneumococcal Polysaccharide, PPSV23 (PNEUMOVAX) 2021-04-24 00:00:00 Completed [facility] Influenza Virus Vaccine,quad Im,preserve Free + 2021-04-24 00:00:00 Completed [facility] Pneumococcal Polysaccharide, PPSV23 (PNEUMOVAX) 2021-04-24 00:00:00 Completed [facility] Influenza Virus Vaccine,quad Im,preserve Free + 2021-04-24 00:00:00 Completed [facility] Pneumococcal Polysaccharide, PPSV23 (PNEUMOVAX) 2021-04-24 00:00:00 Completed [facility] Influenza Virus Vaccine,quad Im,preserve Free 2021-04-24 00:00:00 Completed [facility] Pneumococcal Polysaccharide, PPSV23 (PNEUMOVAX) 2021-04-24 00:00:00 Completed [facility] Influenza Virus Vaccine,quad Im,preserve Free + 2021-04-24 00:00:00 Completed [facility] Pneumococcal Polysaccharide, PPSV23 (PNEUMOVAX) 2021-04-24 00:00:00 Completed [facility] Influenza Virus Vaccine,quad Im,preserve Free + 2021-04-24 00:00:00 Completed [facility] Pneumococcal Polysaccharide, PPSV23 (PNEUMOVAX) 2021-04-24 00:00:00 Completed [facility] Influenza Virus Vaccine,quad Im,preserve Free + 2021-04-24 00:00:00 Completed [facility] Pneumococcal Polysaccharide, PPSV23 (PNEUMOVAX) 2021-04-24 00:00:00 Completed [facility] Influenza Virus Vaccine,quad Im,preserve Free 2021-04-24 00:00:00 Completed [facility] Pneumococcal Polysaccharide, PPSV23 (PNEUMOVAX) 2021-04-24 00:00:00 Completed [facility] Influenza Virus Vaccine,quad Im,preserve Free 2021-04-24 00:00:00 Completed [facility] Pneumococcal Polysaccharide, PPSV23 (PNEUMOVAX) 2021-04-24 00:00:00 Completed [facility] Influenza Virus Vaccine,quad Im,preserve Free + 2021-04-24 00:00:00 Completed [facility] Pneumococcal Polysaccharide, PPSV23 (PNEUMOVAX) 2021-04-24 00:00:00 Completed [facility] Influenza Virus Vaccine,quad Im,preserve Free 2021-04-24 00:00:00 Completed [facility] Pneumococcal Polysaccharide, PPSV23 (PNEUMOVAX) 2021-04-24 00:00:00 Completed [facility] Influenza Virus Vaccine,quad Im,preserve Free 2021-04-24 00:00:00 Completed [facility] Pneumococcal Polysaccharide, PPSV23 (PNEUMOVAX) 2021-04-24 00:00:00 Completed [facility] Influenza Virus Vaccine,quad Im,preserve Free 65+ 2021-04-24 00:00:00 Completed [facility] Pneumococcal Polysaccharide, PPSV23 (PNEUMOVAX) 2021-04-24 00:00:00 Completed [facility] Influenza Virus Vaccine,quad Im,preserve Free 65+ 2021-04-24 00:00:00 Completed [facility] Pneumococcal Polysaccharide, PPSV23 (PNEUMOVAX) 2021-04-24 00:00:00 Completed [facility] Influenza Virus Vaccine,quad Im,preserve Free + 2021-04-24 00:00:00 Completed [facility] Pneumococcal Polysaccharide, PPSV23 (PNEUMOVAX) 2021-04-24 00:00:00 Completed [facility] Influenza Virus Vaccine,quad Im,preserve Free + 2021-04-24 00:00:00 Completed [facility] Pneumococcal Polysaccharide, PPSV23 (PNEUMOVAX) 2021-04-24 00:00:00 Completed [facility] Influenza Virus Vaccine,quad Im,preserve Free + 2021-04-24 00:00:00 Completed [facility] Pneumococcal Polysaccharide, PPSV23 (PNEUMOVAX) 2021-04-24 00:00:00 Completed [facility] Influenza Virus Vaccine,quad Im,preserve Free 65+ 2021-04-24 00:00:00 Completed [facility] Pneumococcal Polysaccharide, PPSV23 (PNEUMOVAX) 2021-04-24 00:00:00 Completed [facility] Influenza Virus Vaccine,quad Im,preserve Free 2021-04-24 00:00:00 Completed [facility] Pneumococcal Polysaccharide, PPSV23 (PNEUMOVAX) 2021-04-24 00:00:00 Completed [facility] Influenza Virus Vaccine,quad Im,preserve Free 65+ 2021-04-24 00:00:00 Completed [facility] Pneumococcal Polysaccharide, PPSV23 (PNEUMOVAX) 2021-04-24 00:00:00 Completed [facility] Influenza Virus Vaccine,quad Im,preserve Free 65+ 2021-04-24 00:00:00 Completed [facility] Pneumococcal Polysaccharide, PPSV23 (PNEUMOVAX) 2021-04-24 00:00:00 Completed [facility] Influenza Virus Vaccine,quad Im,preserve Free 65+ 2021-04-24 00:00:00 Completed [facility] Pneumococcal Polysaccharide, PPSV23 (PNEUMOVAX) 2021-04-24 00:00:00 Completed [facility] Influenza Virus Vaccine,quad Im,preserve Free 65+ 2021-04-24 00:00:00 Completed [facility] Pneumococcal Polysaccharide, PPSV23 (PNEUMOVAX) 2021-04-24 00:00:00 Completed [facility] Influenza Virus Vaccine,quad Im,preserve Free 65+ 2021-04-24 00:00:00 Completed [facility] Pneumococcal Polysaccharide, PPSV23 (PNEUMOVAX) 2021-04-24 00:00:00 Completed [facility] Influenza Virus Vaccine,quad Im,preserve Free + 2021-04-24 00:00:00 Completed [facility] Pneumococcal Polysaccharide, PPSV23 (PNEUMOVAX) 2021-04-24 00:00:00 Completed [facility] Influenza Virus Vaccine,quad Im,preserve Free + 2021-04-24 00:00:00 Completed [facility] Pneumococcal Polysaccharide, PPSV23 (PNEUMOVAX) 2021-04-24 00:00:00 Completed [facility] Influenza Virus Vaccine,quad Im,preserve Free + 2021-04-24 00:00:00 Completed [facility] Pneumococcal Polysaccharide, PPSV23 (PNEUMOVAX) 2021-04-24 00:00:00 Completed [facility] Influenza Virus Vaccine,quad Im,preserve Free 65+ 2021-04-24 00:00:00 Completed [facility] Pneumococcal Polysaccharide, PPSV23 (PNEUMOVAX) 2021-04-24 00:00:00 Completed [facility] Influenza Virus Vaccine,quad Im,preserve Free 65+ 2021-04-24 00:00:00 Completed [facility] Pneumococcal Polysaccharide, PPSV23 (PNEUMOVAX) 2021-04-24 00:00:00 Completed [facility] Influenza Virus Vaccine,quad Im,preserve Free 65+ 2021-04-24 00:00:00 Completed [facility] Pneumococcal Polysaccharide, PPSV23 (PNEUMOVAX) 2021-04-24 00:00:00 Completed [facility] Influenza Virus Vaccine,quad Im,preserve Free 65+ 2021-04-24 00:00:00 Completed [facility] Pneumococcal Polysaccharide, PPSV23 (PNEUMOVAX) 2021-04-24 00:00:00 Completed [facility] Influenza Virus Vaccine,quad Im,preserve Free 65+ 2021-04-24 00:00:00 Completed [facility] Pneumococcal Polysaccharide, PPSV23 (PNEUMOVAX) 2021-04-24 00:00:00 Completed [facility] Influenza Virus Vaccine,quad Im,preserve Free 65+ 2021-04-24 00:00:00 Completed [facility] Pneumococcal Polysaccharide, PPSV23 (PNEUMOVAX) 2021-04-24 00:00:00 Completed [facility] Influenza Virus Vaccine,quad Im,preserve Free 65+ 2021-04-24 00:00:00 Completed [facility] Pneumococcal Polysaccharide, PPSV23 (PNEUMOVAX) 2021-04-24 00:00:00 Completed [facility] Influenza Virus Vaccine,quad Im,preserve Free 65+ 2021-04-24 00:00:00 Completed [facility] Pneumococcal Polysaccharide, PPSV23 (PNEUMOVAX) 2021-04-24 00:00:00 Completed [facility] Influenza Virus Vaccine,quad Im,preserve Free 65+ 2021-04-24 00:00:00 Completed [facility] Pneumococcal Polysaccharide, PPSV23 (PNEUMOVAX) 2021-04-24 00:00:00 Completed [facility] Influenza Virus Vaccine,quad Im,preserve Free 65+ 2021-04-24 00:00:00 Completed [facility] Pneumococcal Polysaccharide, PPSV23 (PNEUMOVAX) 2021-04-24 00:00:00 Completed [facility] Influenza Virus Vaccine,quad Im,preserve Free 65+ 2021-04-24 00:00:00 Completed [facility] Pneumococcal Polysaccharide, PPSV23 (PNEUMOVAX) 2021-04-24 00:00:00 Completed [facility] Influenza Virus Vaccine,quad Im,preserve Free 65+ 2021-04-24 00:00:00 Completed [facility] Pneumococcal Polysaccharide, PPSV23 (PNEUMOVAX) 2021-04-24 00:00:00 Completed [facility] Influenza Virus Vaccine,quad Im,preserve Free 65+ 2021-04-24 00:00:00 Completed [facility] Pneumococcal Polysaccharide, PPSV23 (PNEUMOVAX) 2021-04-24 00:00:00 Completed [facility] Influenza Virus Vaccine,quad Im,preserve Free + 2021-04-24 00:00:00 Completed [facility] Pneumococcal Polysaccharide, PPSV23 (PNEUMOVAX) 2021-04-24 00:00:00 Completed [facility] Influenza Virus Vaccine,quad Im,preserve Free 2021-04-24 00:00:00 Completed [facility] Pneumococcal Polysaccharide, PPSV23 (PNEUMOVAX) 2021-04-24 00:00:00 Completed [facility] Influenza Virus Vaccine,quad Im,preserve Free 2021-04-24 00:00:00 Completed [facility] Pneumococcal Polysaccharide, PPSV23 (PNEUMOVAX) 2021-04-24 00:00:00 Completed [facility] Influenza Virus Vaccine,quad Im,preserve Free 2021-04-24 00:00:00 Completed [facility] Pneumococcal Polysaccharide, PPSV23 (PNEUMOVAX) 2021-04-24 00:00:00 Completed [facility] Influenza Virus Vaccine,quad Im,preserve Free 2021-04-24 00:00:00 Completed [facility] Pneumococcal Polysaccharide, PPSV23 (PNEUMOVAX) 2021-04-24 00:00:00 Completed [facility] Influenza Virus Vaccine,quad Im,preserve Free + 2021-04-24 00:00:00 Completed [facility] Pneumococcal Polysaccharide, PPSV23 (PNEUMOVAX) 2021-04-24 00:00:00 Completed [facility] Influenza Virus Vaccine,quad Im,preserve Free + 2021-04-24 00:00:00 Completed [facility] Pneumococcal Polysaccharide, PPSV23 (PNEUMOVAX) 2021-04-24 00:00:00 Completed [facility] Influenza Virus Vaccine,quad Im,preserve Free 65+ 2021-04-24 00:00:00 Completed [facility] Pneumococcal Polysaccharide, PPSV23 (PNEUMOVAX) 2021-04-24 00:00:00 Completed [facility] Influenza Virus Vaccine,quad Im,preserve Free 65+ 2021-04-24 00:00:00 Completed [facility] Pneumococcal Polysaccharide, PPSV23 (PNEUMOVAX) 2021-04-24 00:00:00 Completed [facility] Influenza Virus Vaccine,quad Im,preserve Free + 2021-04-24 00:00:00 Completed [facility] Pneumococcal Polysaccharide, PPSV23 (PNEUMOVAX) 2021-04-24 00:00:00 Completed [facility] Influenza Virus Vaccine,quad Im,preserve Free + 2021-04-24 00:00:00 Completed [facility] Pneumococcal Polysaccharide, PPSV23 (PNEUMOVAX) 2021-04-24 00:00:00 Completed [facility] Influenza Virus Vaccine,quad Im,preserve Free 2021-04-24 00:00:00 Completed [facility] Pneumococcal Polysaccharide, PPSV23 (PNEUMOVAX) 2021-04-24 00:00:00 Completed [facility] Influenza Virus Vaccine,quad Im,preserve Free 2021-04-24 00:00:00 Completed [facility] Pneumococcal Polysaccharide, PPSV23 (PNEUMOVAX) 2021-04-24 00:00:00 Completed [facility] Influenza Virus Vaccine,quad Im,preserve Free + 2021-04-24 00:00:00 Completed [facility] Pneumococcal Polysaccharide, PPSV23 (PNEUMOVAX) 2021-04-24 00:00:00 Completed [facility] Influenza Virus Vaccine,quad Im,preserve Free + 2021-04-24 00:00:00 Completed [facility] Pneumococcal Polysaccharide, PPSV23 (PNEUMOVAX) 2021-04-24 00:00:00 Completed [facility] Influenza Virus Vaccine,quad Im,preserve Free 65+ 2021-04-24 00:00:00 Completed [facility] Pneumococcal Polysaccharide, PPSV23 (PNEUMOVAX) 2021-04-24 00:00:00 Completed [facility] Influenza Virus Vaccine,quad Im,preserve Free + 2021-04-24 00:00:00 Completed [facility] Pneumococcal Polysaccharide, PPSV23 (PNEUMOVAX) 2021-04-24 00:00:00 Completed [facility] Influenza Virus Vaccine,quad Im,preserve Free 65+ 2021-04-24 00:00:00 Completed [facility] Pneumococcal Polysaccharide, PPSV23 (PNEUMOVAX) 2021-04-24 00:00:00 Completed [facility] Influenza Virus Vaccine,quad Im,preserve Free + 2021-04-24 00:00:00 Completed [facility] Pneumococcal Polysaccharide, PPSV23 (PNEUMOVAX) 2021-04-24 00:00:00 Completed [facility] Influenza Virus Vaccine,quad Im,preserve Free 2021-04-24 00:00:00 Completed [facility] Pneumococcal Polysaccharide, PPSV23 (PNEUMOVAX) 2021-04-24 00:00:00 Completed [facility] Influenza Virus Vaccine,quad Im,preserve Free 2021-04-24 00:00:00 Completed [facility] Pneumococcal Polysaccharide, PPSV23 (PNEUMOVAX) 2021-04-24 00:00:00 Completed [facility] Influenza Virus Vaccine,quad Im,preserve Free 2021-04-24 00:00:00 Completed [facility] Pneumococcal Polysaccharide, PPSV23 (PNEUMOVAX) 2021-04-24 00:00:00 Completed [facility] Influenza Virus Vaccine,quad Im,preserve Free 2021-04-24 00:00:00 Completed [facility] Pneumococcal Polysaccharide, PPSV23 (PNEUMOVAX) 2021-04-24 00:00:00 Completed [facility] Influenza Virus Vaccine,quad Im,preserve Free 2021-04-24 00:00:00 Completed [facility] Pneumococcal Polysaccharide, PPSV23 (PNEUMOVAX) 2021-04-24 00:00:00 Completed [facility] Influenza Virus Vaccine,quad Im,preserve Free + 2021-04-24 00:00:00 Completed [facility] Pneumococcal Polysaccharide, PPSV23 (PNEUMOVAX) 2021-04-24 00:00:00 Completed [facility] Influenza Virus Vaccine,quad Im,preserve Free + 2021-04-24 00:00:00 Completed [facility] Pneumococcal Polysaccharide, PPSV23 (PNEUMOVAX) 2021-04-24 00:00:00 Completed [facility] Influenza Virus Vaccine,quad Im,preserve Free 65+ 2021-04-24 00:00:00 Completed [facility] Pneumococcal Polysaccharide, PPSV23 (PNEUMOVAX) 2021-04-24 00:00:00 Completed [facility] Influenza Virus Vaccine,quad Im,preserve Free 2021-04-24 00:00:00 Completed [facility] Pneumococcal Polysaccharide, PPSV23 (PNEUMOVAX) 2021-04-24 00:00:00 Completed [facility] Influenza Virus Vaccine,quad Im,preserve Free 2021-04-24 00:00:00 Completed [facility] Pneumococcal Polysaccharide, PPSV23 (PNEUMOVAX) 2021-04-24 00:00:00 Completed [facility] Influenza Virus Vaccine,quad Im,preserve Free 2021-04-24 00:00:00 Completed [facility] Pneumococcal Polysaccharide, PPSV23 (PNEUMOVAX) 2021-04-24 00:00:00 Completed [facility] Influenza Virus Vaccine,quad Im,preserve Free 2021-04-24 00:00:00 Completed [facility] Pneumococcal Polysaccharide, PPSV23 (PNEUMOVAX) 2021-04-24 00:00:00 Completed [facility] Influenza Virus Vaccine,quad Im,preserve Free 2021-04-24 00:00:00 Completed [facility] Pneumococcal Polysaccharide, PPSV23 (PNEUMOVAX) 2021-04-24 00:00:00 Completed [facility] Influenza Virus Vaccine,quad Im,preserve Free 2021-04-24 00:00:00 Completed [facility] Pneumococcal Polysaccharide, PPSV23 (PNEUMOVAX) 2021-04-24 00:00:00 Completed [facility] Influenza Virus Vaccine,quad Im,preserve Free + 2021-04-24 00:00:00 Completed [facility] Pneumococcal Polysaccharide, PPSV23 (PNEUMOVAX) 2021-04-24 00:00:00 Completed [facility] Influenza Virus Vaccine,quad Im,preserve Free 65+ 2021-04-24 00:00:00 Completed [facility] Pneumococcal Polysaccharide, PPSV23 (PNEUMOVAX) 2021-04-24 00:00:00 Completed [facility] Influenza Virus Vaccine,quad Im,preserve Free 65+ 2021-04-24 00:00:00 Completed [facility] Pneumococcal Polysaccharide, PPSV23 (PNEUMOVAX) 2021-04-24 00:00:00 Completed [facility] [facility] Influenza Virus Vaccine,quad Im,preserve Free 65+ 2021-04-24 00:00:00 Completed [facility] Pneumococcal Polysaccharide, PPSV23 (PNEUMOVAX) 2021-04-24 00:00:00 Completed [facility] Influenza Virus Vaccine,quad Im,preserve Free 65+ 2021-04-24 00:00:00 Completed [facility] Pneumococcal Polysaccharide, PPSV23 (PNEUMOVAX) 2021-04-24 00:00:00 Completed [facility] Influenza Virus Vaccine,quad Im,preserve Free 65+ 2021-04-24 00:00:00 Completed [facility] Pneumococcal Polysaccharide, PPSV23 (PNEUMOVAX) 2021-04-24 00:00:00 Completed [facility] Influenza Virus Vaccine,quad Im,preserve Free 65+ 2021-04-24 00:00:00 Completed [facility] Pneumococcal Polysaccharide, PPSV23 (PNEUMOVAX) 2021-04-24 00:00:00 Completed [facility] Influenza Virus Vaccine,quad Im,preserve Free 65+ 2021-04-24 00:00:00 Completed [facility] Pneumococcal Polysaccharide, PPSV23 (PNEUMOVAX) 2021-04-24 00:00:00 Completed [facility] Influenza Virus Vaccine,quad Im,preserve Free 65+ 2021-04-24 00:00:00 Completed [facility] Pneumococcal Polysaccharide, PPSV23 (PNEUMOVAX) 2021-04-24 00:00:00 Completed [facility] Influenza Virus Vaccine,quad Im,preserve Free 65+ (FLUAD) 2021-04-24 00:00:00 Completed [facility] Pneumococcal Polysaccharide, PPSV23 (PNEUMOVAX) 2021-04-24 00:00:00 Completed [facility] Influenza Virus Vaccine,quad Im,preserve Free 65+ (FLUAD) 2021-04-24 00:00:00 Completed [facility] Pneumococcal Polysaccharide, PPSV23 (PNEUMOVAX) 2021-04-24 00:00:00 Completed [facility] Influenza Virus Vaccine,quad Im,preserve Free 65+ (FLUAD) 2021-04-24 00:00:00 Completed [facility] Pneumococcal Polysaccharide, PPSV23 (PNEUMOVAX) Unknown Completed [facility] Influenza Virus Vaccine,quad Im,preserve Free 65+ (FLUAD) Unknown Completed [facility] TD, NOS Unknown Completed [facility] TDAP Unknown Completed [facility] Pneumococcal 20 Conjugate, PCV20 (Prevnar 20) Unknown Completed [facility] SARS-COV-2 COVID-19 PFIZER VACCINE Unknown Completed [facility] Pneumococcal Polysaccharide, PPSV23 (PNEUMOVAX) Unknown Completed [facility] Influenza Virus Vaccine,quad Im,preserve Free 65+ (FLUAD) Unknown Completed [facility] TD, NOS Unknown Completed [facility] TDAP Unknown Completed [facility] Pneumococcal 20 Conjugate, PCV20 (Prevnar 20) Unknown Completed [facility] SARS-COV-2 COVID-19 PFIZER VACCINE Unknown Completed [facility] Pneumococcal Polysaccharide, PPSV23 (PNEUMOVAX) Unknown Completed [facility] Influenza Virus Vaccine,quad Im,preserve Free 65+ (FLUAD) Unknown Completed [facility] TD, NOS Unknown Completed [facility] TDAP Unknown Completed [facility] Pneumococcal 20 Conjugate, PCV20 (Prevnar 20) Unknown Completed [facility] SARS-COV-2 COVID-19 PFIZER VACCINE Unknown Completed [facility] Pneumococcal Polysaccharide, PPSV23 (PNEUMOVAX) Unknown Completed [facility] Influenza Virus Vaccine,quad Im,preserve Free 65+ (FLUAD) Unknown Completed [facility] TD, NOS Unknown Completed [facility] TDAP Unknown Completed [facility] Pneumococcal 20 Conjugate, PCV20 (Prevnar 20) Unknown Completed [facility] SARS-COV-2 COVID-19 PFIZER VACCINE Unknown Completed [facility] Pneumococcal Polysaccharide, PPSV23 (PNEUMOVAX) Unknown Completed [facility] Influenza Virus Vaccine,quad Im,preserve Free 65+ (FLUAD) Unknown Completed [facility] TD, NOS Unknown Completed [facility] TDAP Unknown Completed [facility] Pneumococcal 20 Conjugate, PCV20 (Prevnar 20) Unknown Completed [facility] SARS-COV-2 COVID-19 PFIZER VACCINE Unknown Completed [facility] Pneumococcal Polysaccharide, PPSV23 (PNEUMOVAX) Unknown Completed [facility] Influenza Virus Vaccine,quad Im,preserve Free 65+ (FLUAD) Unknown Completed [facility] TD, NOS Unknown Completed [facility] TDAP Unknown Completed [facility] Pneumococcal 20 Conjugate, PCV20 (Prevnar 20) Unknown Completed [facility] SARS-COV-2 COVID-19 PFIZER VACCINE Unknown Completed [facility] Pneumococcal Polysaccharide, PPSV23 (PNEUMOVAX) Unknown Completed [facility] Influenza Virus Vaccine,quad Im,preserve Free 65+ (FLUAD) Unknown Completed [facility] TD, NOS Unknown Completed [facility] TDAP Unknown Completed [facility] Pneumococcal 20 Conjugate, PCV20 (Prevnar 20) Unknown Completed [facility] SARS-COV-2 COVID-19 PFIZER VACCINE Unknown Completed [facility] Pneumococcal Polysaccharide, PPSV23 (PNEUMOVAX) Unknown Completed [facility] Influenza Virus Vaccine,quad Im,preserve Free 65+ (FLUAD) Unknown Completed [facility] TD, NOS Unknown Completed [facility] TDAP Unknown Completed [facility] Pneumococcal 20 Conjugate, PCV20 (Prevnar 20) Unknown Completed [facility] SARS-COV-2 COVID-19 PFIZER VACCINE Unknown Completed [facility] Pneumococcal Polysaccharide, PPSV23 (PNEUMOVAX) Unknown Completed [facility] Influenza Virus Vaccine,quad Im,preserve Free 65+ (FLUAD) Unknown Completed [facility] TD, NOS Unknown Completed [facility] TDAP Unknown Completed [facility] Pneumococcal 20 Conjugate, PCV20 (Prevnar 20) Unknown Completed [facility] SARS-COV-2 COVID-19 PFIZER VACCINE Unknown Completed [facility] Pneumococcal Polysaccharide, PPSV23 (PNEUMOVAX) Unknown Completed [facility] Influenza Virus Vaccine,quad Im,preserve Free 65+ (FLUAD) Unknown Completed [facility] TD, NOS Unknown Completed [facility] TDAP Unknown Completed [facility] Pneumococcal 20 Conjugate, PCV20 (Prevnar 20) Unknown Completed [facility] SARS-COV-2 COVID-19 PFIZER VACCINE Unknown Completed [facility] Pneumococcal Polysaccharide, PPSV23 (PNEUMOVAX) Unknown Completed [facility] Influenza Virus Vaccine,quad Im,preserve Free 65+ (FLUAD) Unknown Completed [facility] TD, NOS Unknown Completed [facility] TDAP Unknown Completed [facility] Pneumococcal 20 Conjugate, PCV20 (Prevnar 20) Unknown Completed [facility] SARS-COV-2 COVID-19 PFIZER VACCINE Unknown Completed [facility] Pneumococcal Polysaccharide, PPSV23 (PNEUMOVAX) Unknown Completed [facility] Influenza Virus Vaccine,quad Im,preserve Free 65+ (FLUAD) Unknown Completed [facility] TD, NOS Unknown Completed [facility] TDAP Unknown Completed [facility] Pneumococcal 20 Conjugate, PCV20 (Prevnar 20) Unknown Completed [facility] SARS-COV-2 COVID-19 PFIZER VACCINE Unknown Completed [facility] Pneumococcal Polysaccharide, PPSV23 (PNEUMOVAX) Unknown Completed [facility] Influenza Virus Vaccine,quad Im,preserve Free 65+ (FLUAD) Unknown Completed [facility] TD, NOS Unknown Completed [facility] TDAP Unknown Completed [facility] Pneumococcal 20 Conjugate, PCV20 (Prevnar 20) Unknown Completed [facility] SARS-COV-2 COVID-19 PFIZER VACCINE Unknown Completed [facility] Pneumococcal Polysaccharide, PPSV23 (PNEUMOVAX) Unknown Completed [facility] Influenza Virus Vaccine,quad Im,preserve Free 65+ (FLUAD) Unknown Completed [facility] TD, NOS Unknown Completed [facility] TDAP Unknown Completed [facility] Pneumococcal 20 Conjugate, PCV20 (Prevnar 20) Unknown Completed [facility] SARS-COV-2 COVID-19 PFIZER VACCINE Unknown Completed [facility] Pneumococcal Polysaccharide, PPSV23 (PNEUMOVAX) Unknown Completed [facility] Influenza Virus Vaccine,quad Im,preserve Free 65+ (FLUAD) Unknown Completed [facility] TD, NOS Unknown Completed [facility] TDAP Unknown Completed [facility] Pneumococcal 20 Conjugate, PCV20 (Prevnar 20) Unknown Completed [facility] SARS-COV-2 COVID-19 PFIZER VACCINE Unknown Completed [facility] Pneumococcal Polysaccharide, PPSV23 (PNEUMOVAX) Unknown Completed [facility] Influenza Virus Vaccine,quad Im,preserve Free 65+ (FLUAD) Unknown Completed [facility] TD, NOS Unknown Completed [facility] TDAP Unknown Completed [facility] Pneumococcal 20 Conjugate, PCV20 (Prevnar 20) Unknown Completed [facility] Pneumococcal Polysaccharide, PPSV23 (PNEUMOVAX) Unknown Completed [facility] Influenza Virus Vaccine,quad Im,preserve Free 65+ (FLUAD) Unknown Completed [facility] TD, NOS Unknown Completed [facility] TDAP Unknown Completed [facility] Pneumococcal 20 Conjugate, PCV20 (Prevnar 20) Unknown Completed [facility] Pneumococcal Polysaccharide, PPSV23 (PNEUMOVAX) Unknown Completed [facility] Influenza Virus Vaccine,quad Im,preserve Free 65+ (FLUAD) Unknown Completed [facility] TD, NOS Unknown Completed [facility] TDAP Unknown Completed [facility] Pneumococcal 20 Conjugate, PCV20 (Prevnar 20) Unknown Completed [facility] Pneumococcal Polysaccharide, PPSV23 (PNEUMOVAX) Unknown Completed [facility] Influenza Virus Vaccine,quad Im,preserve Free 65+ (FLUAD) Unknown Completed [facility] TD, NOS Unknown Completed [facility] TDAP Unknown Completed [facility] Pneumococcal 20 Conjugate, PCV20 (Prevnar 20) Unknown Completed [facility] Pneumococcal Polysaccharide, PPSV23 (PNEUMOVAX) Unknown Completed [facility] Influenza Virus Vaccine,quad Im,preserve Free 65+ (FLUAD) Unknown Completed [facility] TD, NOS Unknown Completed [facility] TDAP Unknown Completed [facility] Pneumococcal 20 Conjugate, PCV20 (Prevnar 20) Unknown Completed [facility] Pneumococcal Polysaccharide, PPSV23 (PNEUMOVAX) Unknown Completed [facility] Influenza Virus Vaccine,quad Im,preserve Free 65+ (FLUAD) Unknown Completed [facility] TD, NOS Unknown Completed [facility] TDAP Unknown Completed [facility] Pneumococcal 20 Conjugate, PCV20 (Prevnar 20) Unknown Completed [facility] Pneumococcal Polysaccharide, PPSV23 (PNEUMOVAX) Unknown Completed [facility] Influenza Virus Vaccine,quad Im,preserve Free 65+ (FLUAD) Unknown Completed [facility] TD, NOS Unknown Completed [facility] TDAP Unknown Completed [facility] Pneumococcal 20 Conjugate, PCV20 (Prevnar 20) Unknown Completed [facility] Pneumococcal Polysaccharide, PPSV23 (PNEUMOVAX) Unknown Completed [facility] Influenza Virus Vaccine,quad Im,preserve Free 65+ (FLUAD) Unknown Completed [facility] TD, NOS Unknown Completed [facility] TDAP Unknown Completed [facility] Pneumococcal 20 Conjugate, PCV20 (Prevnar 20) Unknown Completed [facility] Pneumococcal Polysaccharide, PPSV23 (PNEUMOVAX) Unknown Completed [facility] Influenza Virus Vaccine,quad Im,preserve Free 65+ (FLUAD) Unknown Completed [facility] TD, NOS Unknown Completed [facility] TDAP Unknown Completed [facility] Pneumococcal 20 Conjugate, PCV20 (Prevnar 20) Unknown Completed [facility] Pneumococcal Polysaccharide, PPSV23 (PNEUMOVAX) Unknown Completed [facility] Influenza Virus Vaccine,quad Im,preserve Free 65+ (FLUAD) Unknown Completed [facility] TD, NOS Unknown Completed [facility] TDAP Unknown Completed [facility] Pneumococcal 20 Conjugate, PCV20 (Prevnar 20) Unknown Completed [facility] Pneumococcal Polysaccharide, PPSV23 (PNEUMOVAX) Unknown Completed [facility] Influenza Virus Vaccine,quad Im,preserve Free 65+ (FLUAD) Unknown Completed [facility] TD, NOS Unknown Completed [facility] TDAP Unknown Completed [facility] Pneumococcal 20 Conjugate, PCV20 (Prevnar 20) Unknown Completed [facility] Pneumococcal Polysaccharide, PPSV23 (PNEUMOVAX) Unknown Completed [facility] Influenza Virus Vaccine,quad Im,preserve Free 65+ (FLUAD) Unknown Completed [facility] TD, NOS Unknown Completed [facility] TDAP Unknown Completed [facility] Pneumococcal 20 Conjugate, PCV20 (Prevnar 20) Unknown Completed [facility] Pneumococcal Polysaccharide, PPSV23 (PNEUMOVAX) Unknown Completed [facility] Influenza Virus Vaccine,quad Im,preserve Free 65+ (FLUAD) Unknown Completed [facility] TD, NOS Unknown Completed [facility] TDAP Unknown Completed [facility] Pneumococcal 20 Conjugate, PCV20 (Prevnar 20) Unknown Completed [facility] Pneumococcal Polysaccharide, PPSV23 (PNEUMOVAX) Unknown Completed [facility] Influenza Virus Vaccine,quad Im,preserve Free 65+ (FLUAD) Unknown Completed [facility] TD, NOS Unknown Completed [facility] Pneumococcal Polysaccharide, PPSV23 (PNEUMOVAX) Unknown Completed [facility] Influenza Virus Vaccine,quad Im,preserve Free 65+ (FLUAD) Unknown Completed [facility] Pneumococcal Polysaccharide, PPSV23 (PNEUMOVAX) Unknown Completed [facility] Influenza Virus Vaccine,quad Im,preserve Free 65+ (FLUAD) Unknown Completed [facility] Pneumococcal Polysaccharide, PPSV23 (PNEUMOVAX) Unknown Completed [facility] Influenza Virus Vaccine,quad Im,preserve Free 65+ (FLUAD) Unknown Completed [facility] TD, NOS Unknown Completed [facility] TDAP Unknown Completed [facility] Pneumococcal 20 Conjugate, PCV20 (Prevnar 20) Unknown Completed [facility] Pneumococcal Polysaccharide, PPSV23 (PNEUMOVAX) Unknown Completed [facility] Influenza Virus Vaccine,quad Im,preserve Free 65+ (FLUAD) Unknown Completed [facility] TD, NOS Unknown Completed [facility] TDAP Unknown Completed [facility] Pneumococcal 20 Conjugate, PCV20 (Prevnar 20) Unknown Completed [facility] Pneumococcal Polysaccharide, PPSV23 (PNEUMOVAX) Unknown Completed [facility] Influenza Virus Vaccine,quad Im,preserve Free 65+ (FLUAD) Unknown Completed [facility] TD, NOS Unknown Completed [facility] TDAP Unknown Completed [facility] Pneumococcal 20 Conjugate, PCV20 (Prevnar 20) Unknown Completed [facility] Pneumococcal Polysaccharide, PPSV23 (PNEUMOVAX) Unknown Completed [facility] Influenza Virus Vaccine,quad Im,preserve Free 65+ (FLUAD) Unknown Completed [facility] TD, NOS Unknown Completed [facility] TDAP Unknown Completed [facility] Pneumococcal 20 Conjugate, PCV20 (Prevnar 20) Unknown Completed [facility] Pneumococcal Polysaccharide, PPSV23 (PNEUMOVAX) Unknown Completed [facility] Influenza Virus Vaccine,quad Im,preserve Free 65+ (FLUAD) Unknown Completed [facility] TD, NOS Unknown Completed [facility] TDAP Unknown Completed [facility] Pneumococcal 20 Conjugate, PCV20 (Prevnar 20) Unknown Completed [facility] Pneumococcal Polysaccharide, PPSV23 (PNEUMOVAX) Unknown Completed [facility] Influenza Virus Vaccine,quad Im,preserve Free 65+ (FLUAD) Unknown Completed [facility] TD, NOS Unknown Completed [facility] TDAP Unknown Completed [facility] Pneumococcal 20 Conjugate, PCV20 (Prevnar 20) Unknown Completed [facility] Pneumococcal Polysaccharide, PPSV23 (PNEUMOVAX) Unknown Completed [facility] Influenza Virus Vaccine,quad Im,preserve Free 65+ (FLUAD) Unknown Completed [facility] TD, NOS Unknown Completed [facility] TDAP Unknown Completed [facility] Pneumococcal 20 Conjugate, PCV20 (Prevnar 20) Unknown Completed [facility] Pneumococcal Polysaccharide, PPSV23 (PNEUMOVAX) Unknown Completed [facility] Influenza Virus Vaccine,quad Im,preserve Free 65+ (FLUAD) Unknown Completed [facility] TD, NOS Unknown Completed [facility] TDAP Unknown Completed [facility] Pneumococcal 20 Conjugate, PCV20 (Prevnar 20) Unknown Completed [facility] Pneumococcal Polysaccharide, PPSV23 (PNEUMOVAX) Unknown Completed [facility] Influenza Virus Vaccine,quad Im,preserve Free 65+ (FLUAD) Unknown Completed [facility] TD, NOS Unknown Completed [facility] TDAP Unknown Completed [facility] Pneumococcal 20 Conjugate, PCV20 (Prevnar 20) Unknown Completed [facility] Pneumococcal Polysaccharide, PPSV23 (PNEUMOVAX) Unknown Completed [facility] Influenza Virus Vaccine,quad Im,preserve Free 65+ (FLUAD) Unknown Completed [facility] TD, NOS Unknown Completed [facility] TDAP Unknown Completed [facility] Pneumococcal 20 Conjugate, PCV20 (Prevnar 20) Unknown Completed [facility] Pneumococcal Polysaccharide, PPSV23 (PNEUMOVAX) Unknown Completed [facility] Influenza Virus Vaccine,quad Im,preserve Free 65+ (FLUAD) Unknown Completed [facility] TD, NOS Unknown Completed [facility] TDAP Unknown Completed [facility] Pneumococcal 20 Conjugate, PCV20 (Prevnar 20) Unknown Completed [facility] Pneumococcal Polysaccharide, PPSV23 (PNEUMOVAX) Unknown Completed [facility] Influenza Virus Vaccine,quad Im,preserve Free 65+ (FLUAD) Unknown Completed [facility] TD, NOS Unknown Completed [facility] TDAP Unknown Completed [facility] Pneumococcal 20 Conjugate, PCV20 (Prevnar 20) Unknown Completed [facility] Pneumococcal Polysaccharide, PPSV23 (PNEUMOVAX) Unknown Completed [facility] Influenza Virus Vaccine,quad Im,preserve Free 65+ (FLUAD) Unknown Completed [facility] TD, NOS Unknown Completed [facility] TDAP Unknown Completed [facility] Pneumococcal 20 Conjugate, PCV20 (Prevnar 20) Unknown Completed [facility] Pneumococcal Polysaccharide, PPSV23 (PNEUMOVAX) Unknown Completed [facility] Influenza Virus Vaccine,quad Im,preserve Free 65+ (FLUAD) Unknown Completed [facility] TD, NOS Unknown Completed [facility] TDAP Unknown Completed [facility] Pneumococcal 20 Conjugate, PCV20 (Prevnar 20) Unknown Completed [facility] Pneumococcal Polysaccharide, PPSV23 (PNEUMOVAX) Unknown Completed [facility] Influenza Virus Vaccine,quad Im,preserve Free 65+ (FLUAD) Unknown Completed [facility] TD, NOS Unknown Completed [facility] TDAP Unknown Completed [facility] Pneumococcal 20 Conjugate, PCV20 (Prevnar 20) Unknown Completed [facility] Pneumococcal Polysaccharide, PPSV23 (PNEUMOVAX) Unknown Completed [facility] Influenza Virus Vaccine,quad Im,preserve Free 65+ (FLUAD) Unknown Completed [facility] TD, NOS Unknown Completed [facility] TDAP Unknown Completed [facility] Pneumococcal 20 Conjugate, PCV20 (Prevnar 20) Unknown Completed [facility] Pneumococcal Polysaccharide, PPSV23 (PNEUMOVAX) Unknown Completed [facility] Influenza Virus Vaccine,quad Im,preserve Free 65+ (FLUAD) Unknown Completed [facility] TD, NOS Unknown Completed [facility] TDAP Unknown Completed [facility] Pneumococcal 20 Conjugate, PCV20 (Prevnar 20) Unknown Completed [facility] Pneumococcal Polysaccharide, PPSV23 (PNEUMOVAX) Unknown Completed [facility] Influenza Virus Vaccine,quad Im,preserve Free 65+ (FLUAD) Unknown Completed [facility] TD, NOS Unknown Completed [facility] TDAP Unknown Completed [facility] Pneumococcal 20 Conjugate, PCV20 (Prevnar 20) Unknown Completed [facility] Pneumococcal Polysaccharide, PPSV23 (PNEUMOVAX) Unknown Completed [facility] Influenza Virus Vaccine,quad Im,preserve Free 65+ (FLUAD) Unknown Completed [facility] TD, NOS Unknown Completed [facility] TDAP Unknown Completed [facility] Pneumococcal 20 Conjugate, PCV20 (Prevnar 20) Unknown Completed [facility] Pneumococcal Polysaccharide, PPSV23 (PNEUMOVAX) Unknown Completed [facility] Influenza Virus Vaccine,quad Im,preserve Free 65+ (FLUAD) Unknown Completed [facility] TD, NOS Unknown Completed [facility] TDAP Unknown Completed [facility] Pneumococcal 20 Conjugate, PCV20 (Prevnar 20) Unknown Completed [facility] Pneumococcal Polysaccharide, PPSV23 (PNEUMOVAX) Unknown Completed [facility] Influenza Virus Vaccine,quad Im,preserve Free 65+ (FLUAD) Unknown Completed [facility] TD, NOS Unknown Completed [facility] TDAP Unknown Completed [facility] Pneumococcal 20 Conjugate, PCV20 (Prevnar 20) Unknown Completed [facility] Pneumococcal Polysaccharide, PPSV23 (PNEUMOVAX) Unknown Completed [facility] Influenza Virus Vaccine,quad Im,preserve Free 65+ (FLUAD) Unknown Completed [facility] TD, NOS Unknown Completed [facility] TDAP Unknown Completed [facility] Pneumococcal 20 Conjugate, PCV20 (Prevnar 20) Unknown Completed [facility] Pneumococcal Polysaccharide, PPSV23 (PNEUMOVAX) Unknown Completed [facility] Influenza Virus Vaccine,quad Im,preserve Free 65+ (FLUAD) Unknown Completed [facility] TD, NOS Unknown Completed [facility] TDAP Unknown Completed [facility] Pneumococcal 20 Conjugate, PCV20 (Prevnar 20) Unknown Completed [facility] Pneumococcal Polysaccharide, PPSV23 (PNEUMOVAX) Unknown Completed [facility] Influenza Virus Vaccine,quad Im,preserve Free 65+ (FLUAD) Unknown Completed [facility] TD, NOS Unknown Completed [facility] TDAP Unknown Completed [facility] Pneumococcal 20 Conjugate, PCV20 (Prevnar 20) Unknown Completed [facility] Pneumococcal Polysaccharide, PPSV23 (PNEUMOVAX) Unknown Completed [facility] Influenza Virus Vaccine,quad Im,preserve Free 65+ (FLUAD) Unknown Completed [facility] TD, NOS Unknown Completed [facility] TDAP Unknown Completed [facility] Pneumococcal 20 Conjugate, PCV20 (Prevnar 20) Unknown Completed [facility] Pneumococcal Polysaccharide, PPSV23 (PNEUMOVAX) Unknown Completed [facility] Influenza Virus Vaccine,quad Im,preserve Free 65+ (FLUAD) Unknown Completed [facility] TD, NOS Unknown Completed [facility] TDAP Unknown Completed [facility] Pneumococcal 20 Conjugate, PCV20 (Prevnar 20) Unknown Completed [facility] Pneumococcal Polysaccharide, PPSV23 (PNEUMOVAX) Unknown Completed [facility] Influenza Virus Vaccine,quad Im,preserve Free 65+ (FLUAD) Unknown Completed [facility] TD, NOS Unknown Completed [facility] TDAP Unknown Completed [facility] Pneumococcal 20 Conjugate, PCV20 (Prevnar 20) Unknown Completed [facility] Pneumococcal Polysaccharide, PPSV23 (PNEUMOVAX) Unknown Completed [facility] Influenza Virus Vaccine,quad Im,preserve Free 65+ (FLUAD) Unknown Completed [facility] TD, NOS Unknown Completed [facility] TDAP Unknown Completed [facility] Pneumococcal 20 Conjugate, PCV20 (Prevnar 20) Unknown Completed [facility] SARS-COV-2 COVID-19 PFIZER VACCINE Unknown Completed [facility] Pneumococcal Polysaccharide, PPSV23 (PNEUMOVAX) Unknown Completed [facility] Influenza Virus Vaccine,quad Im,preserve Free 65+ (FLUAD) Unknown Completed [facility] TD, NOS Unknown Completed [facility] TDAP Unknown Completed [facility] Pneumococcal 20 Conjugate, PCV20 (Prevnar 20) Unknown Completed [facility] SARS-COV-2 COVID-19 PFIZER VACCINE Unknown Completed [facility] Pneumococcal Polysaccharide, PPSV23 (PNEUMOVAX) Unknown Completed [facility] Influenza Virus Vaccine,quad Im,preserve Free 65+ (FLUAD) Unknown Completed [facility] TD, NOS Unknown Completed [facility] TDAP Unknown Completed [facility] Pneumococcal 20 Conjugate, PCV20 (Prevnar 20) Unknown Completed [facility] SARS-COV-2 COVID-19 PFIZER VACCINE Unknown Completed [facility] Pneumococcal Polysaccharide, PPSV23 (PNEUMOVAX) Unknown Completed [facility] Influenza Virus Vaccine,quad Im,preserve Free 65+ (FLUAD) Unknown Completed [facility] TD, NOS Unknown Completed [facility] TDAP Unknown Completed [facility] Pneumococcal 20 Conjugate, PCV20 (Prevnar 20) Unknown Completed [facility] SARS-COV-2 COVID-19 PFIZER VACCINE Unknown Completed [facility] Pneumococcal Polysaccharide, PPSV23 (PNEUMOVAX) Unknown Completed [facility] Influenza Virus Vaccine,quad Im,preserve Free 65+ (FLUAD) Unknown Completed [facility] TD, NOS Unknown Completed [facility] TDAP Unknown Completed [facility] Pneumococcal 20 Conjugate, PCV20 (Prevnar 20) Unknown Completed [facility] SARS-COV-2 COVID-19 PFIZER VACCINE Unknown Completed [facility] Pneumococcal Polysaccharide, PPSV23 (PNEUMOVAX) Unknown Completed [facility] Influenza Virus Vaccine,quad Im,preserve Free 65+ (FLUAD) Unknown Completed [facility] TD, NOS Unknown Completed [facility] TDAP Unknown Completed [facility] Pneumococcal 20 Conjugate, PCV20 (Prevnar 20) Unknown Completed [facility] SARS-COV-2 COVID-19 PFIZER VACCINE Unknown Completed [facility] Pneumococcal Polysaccharide, PPSV23 (PNEUMOVAX) Unknown Completed [facility] Influenza Virus Vaccine,quad Im,preserve Free 65+ (FLUAD) Unknown Completed [facility] TD, NOS Unknown Completed [facility] TDAP Unknown Completed [facility] Pneumococcal 20 Conjugate, PCV20 (Prevnar 20) Unknown Completed [facility] SARS-COV-2 COVID-19 PFIZER VACCINE Unknown Completed [facility] Pneumococcal Polysaccharide, PPSV23 (PNEUMOVAX) Unknown Completed [facility] Influenza Virus Vaccine,quad Im,preserve Free 65+ (FLUAD) Unknown Completed [facility] TD, NOS Unknown Completed [facility] TDAP Unknown Completed [facility] Pneumococcal 20 Conjugate, PCV20 (Prevnar 20) Unknown Completed [facility] SARS-COV-2 COVID-19 PFIZER VACCINE Unknown Completed [facility] Pneumococcal Polysaccharide, PPSV23 (PNEUMOVAX) Unknown Completed [facility] Influenza Virus Vaccine,quad Im,preserve Free 65+ (FLUAD) Unknown Completed [facility] TD, NOS Unknown Completed [facility] TDAP Unknown Completed [facility] Pneumococcal 20 Conjugate, PCV20 (Prevnar 20) Unknown Completed [facility] SARS-COV-2 COVID-19 PFIZER VACCINE Unknown Completed [facility] Pneumococcal Polysaccharide, PPSV23 (PNEUMOVAX) Unknown Completed [facility] Influenza Virus Vaccine,quad Im,preserve Free 65+ (FLUAD) Unknown Completed [facility] TD, NOS Unknown Completed [facility] TDAP Unknown Completed [facility] Pneumococcal 20 Conjugate, PCV20 (Prevnar 20) Unknown Completed [facility] SARS-COV-2 COVID-19 PFIZER VACCINE Unknown Completed [facility] Pneumococcal Polysaccharide, PPSV23 (PNEUMOVAX) Unknown Completed [facility] Influenza Virus Vaccine,quad Im,preserve Free 65+ (FLUAD) Unknown Completed [facility] TD, NOS Unknown Completed [facility] TDAP Unknown Completed [facility] Pneumococcal 20 Conjugate, PCV20 (Prevnar 20) Unknown Completed [facility] SARS-COV-2 COVID-19 PFIZER VACCINE Unknown Completed [facility] Pneumococcal Polysaccharide, PPSV23 (PNEUMOVAX) Unknown Completed [facility] Influenza Virus Vaccine,quad Im,preserve Free 65+ (FLUAD) Unknown Completed [facility] TD, NOS Unknown Completed [facility] TDAP Unknown Completed [facility] Pneumococcal 20 Conjugate, PCV20 (Prevnar 20) Unknown Completed [facility] SARS-COV-2 COVID-19 PFIZER VACCINE Unknown Completed [facility] Pneumococcal Polysaccharide, PPSV23 (PNEUMOVAX) Unknown Completed [facility] Influenza Virus Vaccine,quad Im,preserve Free 65+ (FLUAD) Unknown Completed [facility] TD, NOS Unknown Completed [facility] TDAP Unknown Completed [facility] Pneumococcal 20 Conjugate, PCV20 (Prevnar 20) Unknown Completed [facility] SARS-COV-2 COVID-19 PFIZER VACCINE Unknown Completed [facility] Pneumococcal Polysaccharide, PPSV23 (PNEUMOVAX) Unknown Completed [facility] Influenza Virus Vaccine,quad Im,preserve Free 65+ (FLUAD) Unknown Completed [facility] TD, NOS Unknown Completed [facility] TDAP Unknown Completed [facility] Pneumococcal 20 Conjugate, PCV20 (Prevnar 20) Unknown Completed [facility] SARS-COV-2 COVID-19 PFIZER VACCINE Unknown Completed [facility] Pneumococcal Polysaccharide, PPSV23 (PNEUMOVAX) Unknown Completed [facility] Influenza Virus Vaccine,quad Im,preserve Free 65+ (FLUAD) Unknown Completed [facility] TD, NOS Unknown Completed [facility] TDAP Unknown Completed [facility] Pneumococcal 20 Conjugate, PCV20 (Prevnar 20) Unknown Completed [facility] SARS-COV-2 COVID-19 PFIZER VACCINE Unknown Completed [facility] Pneumococcal Polysaccharide, PPSV23 (PNEUMOVAX) Unknown Completed [facility] Influenza Virus Vaccine,quad Im,preserve Free 65+ (FLUAD) Unknown Completed [facility] TD, NOS Unknown Completed [facility] TDAP Unknown Completed [facility] Pneumococcal 20 Conjugate, PCV20 (Prevnar 20) Unknown Completed [facility] SARS-COV-2 COVID-19 PFIZER VACCINE Unknown Completed [facility] Pneumococcal Polysaccharide, PPSV23 (PNEUMOVAX) Unknown Completed [facility] Influenza Virus Vaccine,quad Im,preserve Free 65+ (FLUAD) Unknown Completed [facility] TD, NOS Unknown Completed [facility] TDAP Unknown Completed [facility] Pneumococcal 20 Conjugate, PCV20 (Prevnar 20) Unknown Completed [facility] SARS-COV-2 COVID-19 PFIZER VACCINE Unknown Completed [facility] Pneumococcal Polysaccharide, PPSV23 (PNEUMOVAX) Unknown Completed [facility] Influenza Virus Vaccine,quad Im,preserve Free 65+ (FLUAD) Unknown Completed [facility] TD, NOS Unknown Completed [facility] TDAP Unknown Completed [facility] Pneumococcal 20 Conjugate, PCV20 (Prevnar 20) Unknown Completed [facility] SARS-COV-2 COVID-19 PFIZER VACCINE Unknown Completed [facility] Pneumococcal Polysaccharide, PPSV23 (PNEUMOVAX) Unknown Completed [facility] Influenza Virus Vaccine,quad Im,preserve Free 65+ (FLUAD) Unknown Completed [facility] TD, NOS Unknown Completed [facility] TDAP Unknown Completed [facility] Pneumococcal 20 Conjugate, PCV20 (Prevnar 20) Unknown Completed [facility] SARS-COV-2 COVID-19 PFIZER VACCINE Unknown Completed [facility] Pneumococcal Polysaccharide, PPSV23 (PNEUMOVAX) Unknown Completed [facility] Influenza Virus Vaccine,quad Im,preserve Free 65+ (FLUAD) Unknown Completed [facility] TD, NOS Unknown Completed [facility] TDAP Unknown Completed [facility] Pneumococcal 20 Conjugate, PCV20 (Prevnar 20) Unknown Completed [facility] SARS-COV-2 COVID-19 PFIZER VACCINE Unknown Completed [facility] Pneumococcal Polysaccharide, PPSV23 (PNEUMOVAX) Unknown Completed [facility] Influenza Virus Vaccine,quad Im,preserve Free 65+ (FLUAD) Unknown Completed [facility] TD, NOS Unknown Completed [facility] TDAP Unknown Completed [facility] Pneumococcal 20 Conjugate, PCV20 (Prevnar 20) Unknown Completed [facility] SARS-COV-2 COVID-19 PFIZER VACCINE Unknown Completed [facility] Pneumococcal Polysaccharide, PPSV23 (PNEUMOVAX) Unknown Completed [facility] Influenza Virus Vaccine,quad Im,preserve Free 65+ (FLUAD) Unknown Completed [facility] TD, NOS Unknown Completed [facility] TDAP Unknown Completed [facility] Pneumococcal 20 Conjugate, PCV20 (Prevnar 20) Unknown Completed [facility] SARS-COV-2 COVID-19 PFIZER VACCINE Unknown Completed [facility] Pneumococcal Polysaccharide, PPSV23 (PNEUMOVAX) Unknown Completed [facility] Influenza Virus Vaccine,quad Im,preserve Free 65+ (FLUAD) Unknown Completed [facility] TD, NOS Unknown Completed [facility] TDAP Unknown Completed [facility] Pneumococcal 20 Conjugate, PCV20 (Prevnar 20) Unknown Completed [facility] SARS-COV-2 COVID-19 PFIZER VACCINE Unknown Completed [facility] Pneumococcal Polysaccharide, PPSV23 (PNEUMOVAX) Unknown Completed [facility] Influenza Virus Vaccine,quad Im,preserve Free 65+ (FLUAD) Unknown Completed [facility] TD, NOS Unknown Completed [facility] TDAP Unknown Completed [facility] Pneumococcal 20 Conjugate, PCV20 (Prevnar 20) Unknown Completed [facility] SARS-COV-2 COVID-19 PFIZER VACCINE Unknown Completed [facility] Pneumococcal Polysaccharide, PPSV23 (PNEUMOVAX) Unknown Completed [facility] Influenza Virus Vaccine,quad Im,preserve Free 65+ (FLUAD) Unknown Completed [facility] TD, NOS Unknown Completed [facility] TDAP Unknown Completed [facility] Pneumococcal 20 Conjugate, PCV20 (Prevnar 20) Unknown Completed [facility] SARS-COV-2 COVID-19 PFIZER VACCINE Unknown Completed [facility] Pneumococcal Polysaccharide, PPSV23 (PNEUMOVAX) Unknown Completed [facility] Influenza Virus Vaccine,quad Im,preserve Free 65+ (FLUAD) Unknown Completed [facility] TD, NOS Unknown Completed [facility] TDAP Unknown Completed [facility] Pneumococcal 20 Conjugate, PCV20 (Prevnar 20) Unknown Completed [facility] SARS-COV-2 COVID-19 PFIZER VACCINE Unknown Completed [facility] Pneumococcal Polysaccharide, PPSV23 (PNEUMOVAX) Unknown Completed [facility] Influenza Virus Vaccine,quad Im,preserve Free 65+ (FLUAD) Unknown Completed [facility] TD, NOS Unknown Completed [facility] TDAP Unknown Completed [facility] Pneumococcal 20 Conjugate, PCV20 (Prevnar 20) Unknown Completed [facility] SARS-COV-2 COVID-19 PFIZER VACCINE Unknown Completed [facility] Pneumococcal Polysaccharide, PPSV23 (PNEUMOVAX) Unknown Completed [facility] Influenza Virus Vaccine,quad Im,preserve Free 65+ (FLUAD) Unknown Completed [facility] TD, NOS Unknown Completed [facility] TDAP Unknown Completed [facility] Pneumococcal 20 Conjugate, PCV20 (Prevnar 20) Unknown Completed [facility] SARS-COV-2 COVID-19 PFIZER VACCINE Unknown Completed [facility] Pneumococcal Polysaccharide, PPSV23 (PNEUMOVAX) Unknown Completed [facility] Influenza Virus Vaccine,quad Im,preserve Free 65+ (FLUAD) Unknown Completed [facility] TD, NOS Unknown Completed [facility] TDAP Unknown Completed [facility] Pneumococcal 20 Conjugate, PCV20 (Prevnar 20) Unknown Completed [facility] SARS-COV-2 COVID-19 PFIZER VACCINE Unknown Completed [facility] Pneumococcal Polysaccharide, PPSV23 (PNEUMOVAX) Unknown Completed [facility] Influenza Virus Vaccine,quad Im,preserve Free 65+ (FLUAD) Unknown Completed [facility] TD, NOS Unknown Completed [facility] TDAP Unknown Completed [facility] Pneumococcal 20 Conjugate, PCV20 (Prevnar 20) Unknown Completed [facility] SARS-COV-2 COVID-19 PFIZER VACCINE Unknown Completed [facility] Pneumococcal Polysaccharide, PPSV23 (PNEUMOVAX) Unknown Completed [facility] Influenza Virus Vaccine,quad Im,preserve Free 65+ (FLUAD) Unknown Completed [facility] TD, NOS Unknown Completed [facility] TDAP Unknown Completed [facility] Pneumococcal 20 Conjugate, PCV20 (Prevnar 20) Unknown Completed [facility] SARS-COV-2 COVID-19 PFIZER VACCINE Unknown Completed [facility] Pneumococcal Polysaccharide, PPSV23 (PNEUMOVAX) Unknown Completed [facility] Influenza Virus Vaccine,quad Im,preserve Free 65+ (FLUAD) Unknown Completed [facility] TD, NOS Unknown Completed [facility] TDAP Unknown Completed [facility] Pneumococcal 20 Conjugate, PCV20 (Prevnar 20) Unknown Completed [facility] SARS-COV-2 COVID-19 PFIZER VACCINE Unknown Completed [facility] Pneumococcal Polysaccharide, PPSV23 (PNEUMOVAX) Unknown Completed [facility] Influenza Virus Vaccine,quad Im,preserve Free 65+ (FLUAD) Unknown Completed [facility] TD, NOS Unknown Completed [facility] TDAP Unknown Completed [facility] Pneumococcal 20 Conjugate, PCV20 (Prevnar 20) Unknown Completed [facility] SARS-COV-2 COVID-19 PFIZER VACCINE Unknown Completed [facility] Pneumococcal Polysaccharide, PPSV23 (PNEUMOVAX) Unknown Completed [facility] Influenza Virus Vaccine,quad Im,preserve Free 65+ (FLUAD) Unknown Completed [facility] TD, NOS Unknown Completed [facility] TDAP Unknown Completed [facility] Pneumococcal 20 Conjugate, PCV20 (Prevnar 20) Unknown Completed [facility] SARS-COV-2 COVID-19 PFIZER VACCINE Unknown Completed [facility] Pneumococcal Polysaccharide, PPSV23 (PNEUMOVAX) Unknown Completed [facility] Influenza Virus Vaccine,quad Im,preserve Free 65+ (FLUAD) Unknown Completed [facility] TD, NOS Unknown Completed [facility] TDAP Unknown Completed [facility] Pneumococcal 20 Conjugate, PCV20 (Prevnar 20) Unknown Completed [facility] SARS-COV-2 COVID-19 PFIZER VACCINE Unknown Completed [facility] Vital Signs Vital Name Observation Time Observation Value Comments S ource Systolic blood pressure 2023-06-09 16:25:00 161 mm[Hg] [facility] Diastolic blood pressure 2023-06-09 16:25:00 77 mm[Hg] [facility] Heart rate 2023-06-09 16:25:00 64 /min [facility] Respiratory rate 2023-06-09 16:25:00 18 /min [facility] Body weight 2023-06-09 16:25:00 93.441 kg pt unable to stand on scale [facility] BMI 2023-06-09 16:25:00 27.94 kg/m2 [facility] Oxygen saturation in Arterial blood by Pulse oximetry 2023-06-09 16:25:00 99 /min [facility] Systolic blood pressure 2023-05-12 20:06:00 140 mm[Hg] [facility] Diastolic blood pressure 2023-05-12 20:06:00 80 mm[Hg] [facility] Heart rate 2023-05-12 20:05:00 64 /min [facility] Respiratory rate 2023-05-12 20:05:00 97 /min [facility] Body height 2023-04-22 20:29:00 182.9 cm [facility] Body weight 2023-04-22 20:29:00 93.441 kg [facility] BMI 2023-04-22 20:29:00 27.94 kg/m2 [facility] Systolic blood pressure 2023-04-19 04:43:10 144 mm[Hg] [facility] Diastolic blood pressure 2023-04-19 04:43:10 71 mm[Hg] [facility] Heart rate 2023-04-19 04:43:10 64 /min [facility] Body temperature 2023-04-19 04:43:10 36.56 Yumiko [facility] Respiratory rate 2023-04-19 04:43:10 18 /min [facility] Oxygen saturation in Arterial blood by Pulse oximetry 2023-04-19 04:43:10 98 /min [facility] Body height 2023-04-19 02:35:00 182.9 cm [facility] Body weight 2023-04-19 02:35:00 93.441 kg [facility] BMI 2023-04-19 02:35:00 27.94 kg/m2 [facility] Systolic blood pressure 2023-04-12 16:01:00 184 mm[Hg] [facility] Diastolic blood pressure 2023-04-12 16:01:00 83 mm[Hg] [facility] Heart rate 2023-04-12 16:01:00 67 /min [facility] Oxygen saturation in Arterial blood by Pulse oximetry 2023-04-12 16:01:00 96 /min [facility] Systolic blood pressure 2023-04-05 16:28:00 135 mm[Hg] [facility] Diastolic blood pressure 2023-04-05 16:28:00 66 mm[Hg] [facility] Heart rate 2023-04-05 16:28:00 53 /min [facility] Body height 2023-04-05 16:28:00 182.9 cm [facility] Body weight 2023-04-05 16:28:00 93.441 kg [facility] BMI 2023-04-05 16:28:00 27.94 kg/m2 [facility] Oxygen saturation in Arterial blood by Pulse oximetry 2023-04-05 16:28:00 97 /min [facility] Systolic blood pressure 2023-03-09 15:05:00 124 mm[Hg] [facility] Diastolic blood pressure 2023-03-09 15:05:00 75 mm[Hg] [facility] Heart rate 2023-03-09 15:05:00 68 /min [facility] Respiratory rate 2023-03-09 15:05:00 18 /min [facility] Body height 2023-03-09 15:05:00 182.9 cm [facility] Body weight 2023-03-09 15:05:00 93.441 kg [facility] BMI 2023-03-09 15:05:00 27.94 kg/m2 [facility] Oxygen saturation in Arterial blood by Pulse oximetry 2023-03-09 15:05:00 97 /min [facility] Systolic blood pressure 2023-02-01 20:44:00 105 mm[Hg] [facility] Diastolic blood pressure 2023-02-01 20:44:00 63 mm[Hg] [facility] Heart rate 2023-02-01 20:44:00 77 /min [facility] Body height 2023-02-01 20:44:00 180.3 cm [facility] Body weight 2023-02-01 20:44:00 102.059 kg [facility] BMI 2023-02-01 20:44:00 31.38 kg/m2 [facility] Oxygen saturation in Arterial blood by Pulse oximetry 2023-02-01 20:44:00 95 /min [facility] Systolic blood pressure 2023-01-06 20:34:00 152 mm[Hg] [facility] Diastolic blood pressure 2023-01-06 20:34:00 82 mm[Hg] [facility] Heart rate 2023-01-06 20:34:00 62 /min [facility] Body height 2023-01-06 20:34:00 182.9 cm [facility] Body weight 2023-01-06 20:34:00 101.606 kg [facility] BMI 2023-01-06 20:34:00 30.38 kg/m2 [facility] Oxygen saturation in Arterial blood by Pulse oximetry 2023-01-06 20:34:00 96 /min [facility] Systolic blood pressure 2022-12-31 16:23:00 150 mm[Hg] [facility] Diastolic blood pressure 2022-12-31 16:23:00 68 mm[Hg] [facility] Heart rate 2022-12-31 16:22:00 58 /min [facility] Respiratory rate 2022-12-31 16:22:00 18 /min [facility] Body height 2022-12-31 16:22:00 185.4 cm [facility] Body weight 2022-12-31 16:22:00 102.059 kg [facility] BMI 2022-12-31 16:22:00 29.69 kg/m2 [facility] Oxygen saturation in Arterial blood by Pulse oximetry 2022-12-31 16:22:00 97 /min [facility] Systolic blood pressure 2022-12-09 13:52:00 156 mm[Hg] [facility] Diastolic blood pressure 2022-12-09 13:52:00 79 mm[Hg] [facility] Heart rate 2022-12-09 13:52:00 66 /min [facility] Oxygen saturation in Arterial blood by Pulse oximetry 2022-12-09 13:52:00 96 /min [facility] Body temperature 2022-12-09 13:51:00 36.56 Yumiko [facility] Respiratory rate 2022-12-09 13:51:00 18 /min [facility] Body weight 2022-12-09 13:51:00 102.059 kg [facility] BMI 2022-12-09 13:51:00 30.52 kg/m2 [facility] Systolic blood pressure 2022-11-30 15:17:00 132 mm[Hg] [facility] Diastolic blood pressure 2022-11-30 15:17:00 58 mm[Hg] [facility] Heart rate 2022-11-30 15:17:00 60 /min [facility] Respiratory rate 2022-11-30 15:17:00 18 /min [facility] Body height 2022-11-30 15:17:00 182.9 cm [facility] Body weight 2022-11-30 15:17:00 102.331 kg [facility] BMI 2022-11-30 15:17:00 30.60 kg/m2 [facility] Oxygen saturation in Arterial blood by Pulse oximetry 2022-11-30 15:17:00 96 /min [facility] Systolic blood pressure 2022-11-26 15:30:00 101 mm[Hg] [facility] Diastolic blood pressure 2022-11-26 15:30:00 66 mm[Hg] [facility] Heart rate 2022-11-26 15:30:00 78 /min [facility] Respiratory rate 2022-11-26 15:30:00 18 /min [facility] Body height 2022-11-26 15:30:00 177.8 cm [facility] Body weight 2022-11-26 15:30:00 102.331 kg [facility] BMI 2022-11-26 15:30:00 32.37 kg/m2 [facility] Oxygen saturation in Arterial blood by Pulse oximetry 2022-11-26 15:30:00 98 /min [facility] Body weight 2022-11-25 18:06:00 105.688 kg [facility] BMI 2022-11-25 18:06:00 31.60 kg/m2 [facility] Systolic blood pressure 2022-11-19 16:47:00 132 mm[Hg] [facility] Diastolic blood pressure 2022-11-19 16:47:00 73 mm[Hg] [facility] Heart rate 2022-11-19 16:47:00 70 /min [facility] Body temperature 2022-11-19 16:47:00 36.33 Yumiko [facility] Respiratory rate 2022-11-19 16:47:00 18 /min [facility] Oxygen saturation in Arterial blood by Pulse oximetry 2022-11-19 16:47:00 96 /min [facility] Body weight 2022-11-19 10:21:00 105.96 kg [facility] BMI 2022-11-19 10:21:00 31.68 kg/m2 [facility] Systolic blood pressure 2022-11-12 15:00:00 146 mm[Hg] [facility] Diastolic blood pressure 2022-11-12 15:00:00 68 mm[Hg] [facility] Heart rate 2022-11-12 14:59:00 58 /min [facility] Respiratory rate 2022-11-12 14:59:00 18 /min [facility] Body height 2022-11-12 14:59:00 182.9 cm [facility] Body weight 2022-11-12 14:59:00 97.977 kg [facility] BMI 2022-11-12 14:59:00 29.29 kg/m2 [facility] Oxygen saturation in Arterial blood by Pulse oximetry 2022-11-12 14:59:00 97 /min [facility] Systolic blood pressure 2022-11-12 14:30:00 155 mm[Hg] [facility] Diastolic blood pressure 2022-11-12 14:30:00 69 mm[Hg] [facility] Heart rate 2022-11-12 14:30:00 61 /min [facility] Body temperature 2022-11-12 14:30:00 37.06 Yumiko [facility] Respiratory rate 2022-11-12 14:30:00 20 /min [facility] Body height 2022-11-12 14:30:00 182.9 cm [facility] Body weight 2022-11-12 14:30:00 102.513 kg [facility] BMI 2022-11-12 14:30:00 30.65 kg/m2 [facility] Oxygen saturation in Arterial blood by Pulse oximetry 2022-11-12 14:30:00 99 /min [facility] Systolic blood pressure 2022-10-07 15:11:00 181 mm[Hg] [facility] Diastolic blood pressure 2022-10-07 15:11:00 89 mm[Hg] [facility] Heart rate 2022-10-07 15:10:00 65 /min [facility] Respiratory rate 2022-10-07 15:10:00 18 /min [facility] Body height 2022-10-07 15:10:00 182.9 cm [facility] Body weight 2022-10-07 15:10:00 97.977 kg [facility] BMI 2022-10-07 15:10:00 29.29 kg/m2 [facility] Oxygen saturation in Arterial blood by Pulse oximetry 2022-10-07 15:10:00 96 /min [facility] Systolic blood pressure 2022-09-25 19:06:00 114 mm[Hg] [facility] Diastolic blood pressure 2022-09-25 19:06:00 54 mm[Hg] [facility] Heart rate 2022-09-25 19:06:00 59 /min [facility] Body temperature 2022-09-25 19:06:00 36.67 Yumiko [facility] Respiratory rate 2022-09-25 19:06:00 19 /min [facility] Body weight 2022-09-25 19:06:00 98.884 kg [facility] BMI 2022-09-25 19:06:00 30.40 kg/m2 [facility] Oxygen saturation in Arterial blood by Pulse oximetry 2022-09-25 19:06:00 94 /min [facility] Systolic blood pressure 2022-09-01 15:42:00 175 mm[Hg] [facility] Diastolic blood pressure 2022-09-01 15:42:00 82 mm[Hg] [facility] Heart rate 2022-09-01 15:36:00 59 /min [facility] Oxygen saturation in Arterial blood by Pulse oximetry 2022-09-01 15:36:00 91 /min [facility] Systolic blood pressure 2022-08-14 14:18:00 138 mm[Hg] [facility] Diastolic blood pressure 2022-08-14 14:18:00 64 mm[Hg] [facility] Heart rate 2022-08-14 14:10:00 57 /min [facility] Respiratory rate 2022-08-14 14:10:00 18 /min [facility] Body height 2022-08-14 14:10:00 180.3 cm [facility] Body weight 2022-08-14 14:10:00 102.059 kg [facility] BMI 2022-08-14 14:10:00 31.38 kg/m2 [facility] Systolic blood pressure 2022-08-05 19:03:00 135 mm[Hg] [facility] Diastolic blood pressure 2022-08-05 19:03:00 69 mm[Hg] [facility] Heart rate 2022-08-05 19:03:00 57 /min [facility] Body temperature 2022-08-05 19:03:00 36.11 Yumiko [facility] Body weight 2022-08-05 19:03:00 101.152 kg per pt [facility] BMI 2022-08-05 19:03:00 30.24 kg/m2 [facility] Oxygen saturation in Arterial blood by Pulse oximetry 2022-08-05 19:03:00 95 /min [facility] Body height 2022-07-14 13:28:00 182.9 cm [facility] Body weight 2022-07-14 13:28:00 102.059 kg [facility] BMI 2022-07-14 13:28:00 30.52 kg/m2 [facility] Systolic blood pressure 2022-07-07 15:17:00 138 mm[Hg] [facility] Diastolic blood pressure 2022-07-07 15:17:00 72 mm[Hg] [facility] Heart rate 2022-07-07 15:16:00 60 /min [facility] Body height 2022-07-07 15:16:00 182.9 cm [facility] Body weight 2022-07-07 15:16:00 102.059 kg [facility] BMI 2022-07-07 15:16:00 30.52 kg/m2 [facility] Oxygen saturation in Arterial blood by Pulse oximetry 2022-07-07 15:16:00 96 /min [facility] Systolic blood pressure 2022-07-03 20:41:00 138 mm[Hg] [facility] Diastolic blood pressure 2022-07-03 20:41:00 55 mm[Hg] [facility] Heart rate 2022-07-03 20:41:00 57 /min [facility] Body height 2022-07-03 20:41:00 182.9 cm [facility] Body weight 2022-07-03 20:41:00 100.699 kg [facility] BMI 2022-07-03 20:41:00 30.11 kg/m2 [facility] Oxygen saturation in Arterial blood by Pulse oximetry 2022-07-03 20:41:00 95 /min [facility] Systolic blood pressure 2022-06-19 18:14:00 137 mm[Hg] [facility] Diastolic blood pressure 2022-06-19 18:14:00 69 mm[Hg] [facility] Heart rate 2022-06-19 18:14:00 58 /min [facility] Respiratory rate 2022-06-19 18:14:00 23 /min [facility] Body height 2022-06-19 18:14:00 177.8 cm [facility] Body weight 2022-06-19 18:14:00 102.059 kg [facility] BMI 2022-06-19 18:14:00 32.28 kg/m2 [facility] Oxygen saturation in Arterial blood by Pulse oximetry 2022-06-19 18:14:00 96 /min [facility] Systolic blood pressure 2022-06-12 14:26:00 159 mm[Hg] [facility] Diastolic blood pressure 2022-06-12 14:26:00 75 mm[Hg] [facility] Heart rate 2022-06-12 14:25:00 69 /min [facility] Body height 2022-06-12 14:25:00 182.9 cm [facility] Body weight 2022-06-12 14:25:00 102.105 kg [facility] BMI 2022-06-12 14:25:00 30.53 kg/m2 [facility] Systolic blood pressure 2022-06-11 13:26:00 164 mm[Hg] [facility] Diastolic blood pressure 2022-06-11 13:26:00 73 mm[Hg] [facility] Heart rate 2022-06-11 13:25:00 66 /min [facility] Body temperature 2022-06-11 13:25:00 36.56 Yumiko [facility] Body height 2022-06-11 13:25:00 182.9 cm [facility] Body weight 2022-06-11 13:25:00 101.152 kg [facility] BMI 2022-06-11 13:25:00 30.24 kg/m2 [facility] Oxygen saturation in Arterial blood by Pulse oximetry 2022-06-11 13:25:00 97 /min [facility] Systolic blood pressure 2022-06-10 14:16:00 150 mm[Hg] [facility] Diastolic blood pressure 2022-06-10 14:16:00 69 mm[Hg] [facility] Heart rate 2022-06-10 14:16:00 59 /min [facility] Body temperature 2022-06-10 14:16:00 36.61 Yumiko [facility] Respiratory rate 2022-06-10 14:16:00 18 /min [facility] Body height 2022-06-10 14:16:00 182.9 cm [facility] Body weight 2022-06-10 14:16:00 101.152 kg [facility] BMI 2022-06-10 14:16:00 30.24 kg/m2 [facility] Systolic blood pressure 2022-06-05 14:07:00 197 mm[Hg] [facility] Diastolic blood pressure 2022-06-05 14:07:00 90 mm[Hg] [facility] Heart rate 2022-06-05 14:07:00 60 /min [facility] Respiratory rate 2022-06-05 14:07:00 20 /min [facility] Oxygen saturation in Arterial blood by Pulse oximetry 2022-06-05 14:07:00 99 /min [facility] Body temperature 2022-06-05 13:56:00 36.67 Yumiko [facility] Body height 2022-06-05 13:56:00 182.9 cm [facility] Body weight 2022-06-05 13:56:00 100.699 kg [facility] BMI 2022-06-05 13:56:00 30.11 kg/m2 [facility] Systolic blood pressure 2022-05-13 20:14:00 160 mm[Hg] [facility] Diastolic blood pressure 2022-05-13 20:14:00 81 mm[Hg] [facility] Heart rate 2022-05-13 20:08:00 62 /min [facility] Body weight 2022-05-13 20:08:00 100.699 kg [facility] BMI 2022-05-13 20:08:00 30.11 kg/m2 [facility] Oxygen saturation in Arterial blood by Pulse oximetry 2022-05-13 20:08:00 95 /min [facility] Systolic blood pressure 2022-05-12 18:39:00 172 mm[Hg] [facility] Diastolic blood pressure 2022-05-12 18:39:00 84 mm[Hg] [facility] Heart rate 2022-05-12 18:38:00 64 /min [facility] Body height 2022-05-12 18:38:00 182.9 cm [facility] Body weight 2022-05-12 18:38:00 102.967 kg [facility] BMI 2022-05-12 18:38:00 30.79 kg/m2 [facility] Systolic blood pressure 2022-05-04 19:46:00 176 mm[Hg] [facility] Diastolic blood pressure 2022-05-04 19:46:00 72 mm[Hg] [facility] Heart rate 2022-05-04 19:46:00 65 /min [facility] Body height 2022-05-04 19:45:00 182.9 cm [facility] Body weight 2022-05-04 19:45:00 103.057 kg [facility] BMI 2022-05-04 19:45:00 30.81 kg/m2 [facility] Oxygen saturation in Arterial blood by Pulse oximetry 2022-05-04 19:45:00 97 /min [facility] Systolic blood pressure 2022-05-01 16:12:00 136 mm[Hg] [facility] Diastolic blood pressure 2022-05-01 16:12:00 68 mm[Hg] [facility] Heart rate 2022-05-01 16:12:00 62 /min [facility] Body temperature 2022-05-01 16:12:00 36.56 Yumiko [facility] Respiratory rate 2022-05-01 16:12:00 16 /min [facility] Body weight 2022-05-01 16:12:00 100.699 kg [facility] BMI 2022-05-01 16:12:00 30.11 kg/m2 [facility] Oxygen saturation in Arterial blood by Pulse oximetry 2022-05-01 16:12:00 98 /min [facility] Systolic blood pressure 2022-04-01 20:41:00 138 mm[Hg] [facility] Diastolic blood pressure 2022-04-01 20:41:00 73 mm[Hg] [facility] Heart rate 2022-04-01 20:41:00 64 /min [facility] Body weight 2022-04-01 20:41:00 102.694 kg [facility] BMI 2022-04-01 20:41:00 30.71 kg/m2 [facility] Oxygen saturation in Arterial blood by Pulse oximetry 2022-04-01 20:41:00 98 /min [facility] Systolic blood pressure 2022-02-17 16:13:00 152 mm[Hg] [facility] Diastolic blood pressure 2022-02-17 16:13:00 81 mm[Hg] [facility] Heart rate 2022-02-17 14:50:00 59 /min [facility] Body temperature 2022-02-17 14:50:00 36.94 Yumiko [facility] Body height 2022-02-17 14:50:00 182.9 cm [facility] Body weight 2022-02-17 14:50:00 100.699 kg [facility] BMI 2022-02-17 14:50:00 30.11 kg/m2 [facility] Oxygen saturation in Arterial blood by Pulse oximetry 2022-02-17 14:50:00 95 /min [facility] Systolic blood pressure 2022-01-05 16:06:00 144 mm[Hg] [facility] Diastolic blood pressure 2022-01-05 16:06:00 69 mm[Hg] [facility] Heart rate 2022-01-05 16:06:00 64 /min [facility] Body height 2022-01-05 16:06:00 182.9 cm [facility] Body weight 2022-01-05 16:06:00 106.142 kg [facility] BMI 2022-01-05 16:06:00 31.74 kg/m2 [facility] Oxygen saturation in Arterial blood by Pulse oximetry 2022-01-05 16:06:00 97 /min [facility] Systolic blood pressure 2021-12-21 13:20:00 127 mm[Hg] [facility] Diastolic blood pressure 2021-12-21 13:20:00 69 mm[Hg] [facility] Heart rate 2021-12-21 13:20:00 68 /min [facility] Body temperature 2021-12-21 13:20:00 35.83 Yumiko [facility] Respiratory rate 2021-12-21 13:20:00 18 /min [facility] Oxygen saturation in Arterial blood by Pulse oximetry 2021-12-21 13:20:00 96 /min [facility] Body weight 2021-12-21 09:04:00 101.969 kg [facility] BMI 2021-12-21 09:04:00 30.49 kg/m2 [facility] Body height 2021-12-19 18:50:00 182.9 cm [facility] Systolic blood pressure 2021-12-10 17:00:00 120 mm[Hg] [facility] Diastolic blood pressure 2021-12-10 17:00:00 67 mm[Hg] [facility] Heart rate 2021-12-10 17:00:00 78 /min [facility] Respiratory rate 2021-12-10 17:00:00 18 /min [facility] Body height 2021-12-10 17:00:00 182.9 cm [facility] Body weight 2021-12-10 17:00:00 96.253 kg [facility] BMI 2021-12-10 17:00:00 28.78 kg/m2 [facility] Oxygen saturation in Arterial blood by Pulse oximetry 2021-12-10 17:00:00 95 /min [facility] Systolic blood pressure 2021-06-26 18:16:00 122 mm[Hg] [facility] Diastolic blood pressure 2021-06-26 18:16:00 75 mm[Hg] [facility] Heart rate 2021-06-26 18:16:00 68 /min [facility] Body height 2021-06-26 18:16:00 182.9 cm [facility] Body weight 2021-06-26 18:16:00 101.152 kg stated [facility] BMI 2021-06-26 18:16:00 30.24 kg/m2 [facility] Oxygen saturation in Arterial blood by Pulse oximetry 2021-06-26 18:16:00 96 /min [facility] Procedures Procedure Date / Time Performed Performing Clinician Source MARIVEL,POST-VOID RES,US,NON-IMAGING 2023-06-09 00:00:00 Brianna Brand [facility] POCT URINALYSIS AUTO 2023-06-09 00:00:00 Bebeto Brand [facility] ASSIGNMENT OF BENEFITS 2023-04-19 03:11:47 Docto r Unassigned, [place] [facility] XR SHOULDER 2+ VW RIGHT 2023-04-19 02:55:42 Jose Brooks [facility] CONSENT/REFUSAL FOR DIAGNOSIS AND TREATMENT 2023-04-19 02:21:11 Doctor Unassigned, [place] [facility] - OTHER 2023-03-23 06:01:00 Doctor U nassigned, [place] [facility] - OTHER 2023-03-11 06:01:00 Doctor U nassigned, [place] [facility] - OTHER 2023-02-05 06:01:00 Doctor U nassigned, [place] [facility] BASIC METABOLIC PANEL (NA, K, CL, CO2, GLUCOSE, BUN, CREATININE, CA) 2023-02-01 21:06:00 Alan Beaulieu [facility] N-TERMINAL PRO-BNP 2023-02-01 [facility]:06[facility] 2023-01-06 20:27:57 Docto r Unassigned, [place] [facility] POCT URINALYSIS AUTO 2022-12-09 13:58:00 Bebeto Brand [facility] ASSIGNMENT OF BENEFITS 2022-11-19 10:25:56 Docto r Unassigned, [place] [facility] NOTICE OF PRIVACY PRACTICES 2022-11-19 10:24:08 Doctor Unassigned, [place] [facility] OTHER 2022-10-16 05:01:00 Doctor Curly maynard, [place] [facility] GLYCOSYLATED HEMOGLOBIN (A1C) 2022-09-01 16:51:00 Nivia Eng [facility] EXTERNAL PROVIDER RECORDS 2022-08-28 05:01:00 Do ctor Unassigned, [place] [facility] 485 2022-06-26 05:01:00 Doctor Unass igned, [place] [id number] 2022-06-15 05:01:00 Doctor Unass igned, [place] [facility] MICROALBUMIN URINE 2022-06-11 19:00:00 Ellie Pablo [facility] URINALYSIS 2022-06-11 19:00:00 [facility] BASIC METABOLIC PANEL (NA, K, CL, CO2, GLUCOSE, BUN, CREATININE, CA) 2022-06-11 14:04:00 Susan Yadav [facility] OTHER 2022-06-11 05:01:00 Doctor Curly maynard, [place] [facility] XR CHEST 2 VW 2022-06-05 16:12:02 Inez [facility] CBC WITH DIFF 2022-06-05 15:23:00 Inez [facility] FREE T4 2022-06-05 15:23:00 [facility] THYROID STIMULATING HORMONE 2022-06-05 15:23:00 Kley, Susan [facility] COMP. METABOLIC PANEL (58003) 2022-06-05 15:23:00 Susan Yadav [facility] LIPID PANEL (80947)(TOTAL CHOLESTEROL, TRIGLYCERIDES, HDL) 2022-06-05 15:23:00 KrystiandontaeCyrus rea [facility] N-TERMINAL PRO-BNP 2022-06-05 15:23:00 Susan Yadav [facility] PHYSICIAN CERTIFICATION STATEMENT 2022-05-13 05:01:00 Doctor Unassigned, [place] [facility] TDAP VACCINE, >11 YRS, IM 2022-05-04 20:34:16 Philip Dawson [facility] PNEUMOCOCCAL 20 CONJUGATE (PREVNAR 20) VACCINE 2022-05-04 20:34:16 Philip Dawson [facility] XR ELBOW >3 VW RIGHT 2022-05-01 17:54:00 Carolyn Cervantes [facility] XR HUMERUS 2 VW RIGHT 2022-05-01 17:54:00 EbrahimMele [facility] XR FOREARM 2 VW RIGHT 2022-05-01 17:54:00 EbrahimMele [facility] XR SHOULDER 2+ VW RIGHT 2022-05-01 17:54:00 Antonia Cervantes [facility] XR HUMERUS 2 VW RIGHT 2022-05-01 17:54:00 EbrahimMele [facility] XR FOREARM 2 VW RIGHT 2022-05-01 17:54:00 EbhiMele terrell [facility] XR ELBOW >3 VW RIGHT 2022-05-01 17:54:00 Carolyn Cervantes [facility] PATIENT FINANCIAL POLICY 2022-05-01 16:02:10 Doctor Unassigned, [place] [facility] POCT HEMOGLOBIN A1C TEST 2022-04-01 20:56:00 Chandan Sheehan [facility] PATIENT QUESTIONNAIRE 2022-03-28 06:01:00 Doctor Unassigned, [place] [facility] POCT URINALYSIS 2022-02-17 16:11:00 Marcy Clemons [facility] ASSIGNMENT OF BENEFITS 2022-01-05 15:58:59 Leeanna r Unassigned, [place] [facility] CONSENT/REFUSAL FOR DIAGNOSIS AND TREATMENT 2022-01-05 15:57:56 Doctor Unassigned, [place] [facility] POCT GLUCOSE (AUTOMATED) 2021-12-21 17:29:00 Darrian Mckeon [facility] POCT GLUCOSE (AUTOMATED) 2021-12-21 13:22:00 Darrian Mckeon [facility] BASIC METABOLIC PANEL (NA, K, CL, CO2, GLUCOSE, BUN, CREATININE, CA) 2021-12-21 09:46:00 Padma Sullivan [facility] CBC WITH DIFF 2021-12-21 09:46:00 Padma Sullivan Gris [facility] POCT GLUCOSE (AUTOMATED) 2021-12-21 00:56:00 Darrian Mckeon [facility] POCT GLUCOSE (AUTOMATED) 2021-12-20 21:23:00 Darrian Mckeon [facility] POCT GLUCOSE (AUTOMATED) 2021-12-20 16:24:00 Darrian Mckeon [facility] POCT GLUCOSE (AUTOMATED) 2021-12-20 12:38:00 Darrian Mckeon [facility] BASIC METABOLIC PANEL (NA, K, CL, CO2, GLUCOSE, BUN, CREATININE, CA) 2021-12-20 09:12:00 Padma Sullivan [facility] CBC WITH DIFF 2021-12-20 09:12:00 Padma Sullivan [facility] POCT GLUCOSE (AUTOMATED) 2021-12-20 01:16:00 Adam Kennedy [facility] POCT GLUCOSE (AUTOMATED) 2021-12-19 21:36:00 [facility] NH RESUP NPTERF WND BODY 2.6-7.5 CM 2021-12-19 18:22:00 Anuj Barroso [facility] BLOOD CULTURE SCREEN 2021-12-19 18:09:00 Susy Barroso [facility] BLOOD CULTURE SCREEN 2021-12-19 18:08:00 Susy Barroso [facility] LACTIC ACID WHOLE BLOOD 2021-12-19 18:08:00 Do wes Barroso [facility] URINALYSIS 2021-12-19 16:16:00 [facility] URINE DRUG (IMMUNOASSAY) - COMPREHENSIVE DRUG SCREEN W/O REFLEX 2021-12-19 16:16:00 Anuj Barroso [facility] XR HAND 3+ VW RIGHT 2021-12-19 15:56:29 Jose Barroso [facility] XR SHOULDER 2+ VW RIGHT 2021-12-19 15:56:29 Do wes Barroso [facility] CT CERVICAL SPINE WO CONTRAST 2021-12-19 15:42:28 Anuj Barroso [facility] CT HEAD WO CONTRAST 2021-12-19 15:42:28 Jose Barroso [facility] TROPONIN I 2021-12-19 14:59:00 [facility] COMP. METABOLIC PANEL (92139) 2021-12-19 14:59:00 Anuj Barroso [facility] LIPID PANEL (03306)(TOTAL CHOLESTEROL, TRIGLYCERIDES, HDL) 2021-12-19 14:59:00 Padma Sullivan [facility] ETHANOL 2021-12-19 14:59:00 Anuj Barroso [facility] CBC WITH DIFF 2021-12-19 14:59:00 Anuj Barroso [facility] GLYCOSYLATED HEMOGLOBIN (A1C) 2021-12-19 14:59:00 Padma Sullivan [facility] PROTHROMBIN TIME / INR 2021-12-19 14:59:00 Arjun Barroso [facility] ACTIVATED PARTIAL THRMPLAS ZAIRE 2021-12-19 14:59:00 Anuj Barroso [facility] N-TERMINAL PRO-BNP 2021-12-19 14:59:00 Anuj Barroso [facility] POCT GLUCOSE (AUTOMATED) 2021-12-19 14:51:00 Adam Barroso [facility] INSURANCE CORRESPONDENCE 2021-08-22 05:01:00 Doc tor Unassigned, [place] [facility] EXTERNAL PROVIDER RECORDS 2021-07-05 05:01:00 Do ctor Unassigned, [place] [facility] HOME HEALTH 485 2021-06-26 05:01:00 Doctor Unass igned, [place] [facility] PATIENT QUESTIONNAIRE 2021-05-13 05:01:00 Doctor Unassigned, [place] [facility] PATIENT QUESTIONNAIRE 2020-02-14 06:01:00 Doctor Unassigned, [place] [facility] Encounters Start Date/Time End Date/Time Encounter Type Admission Type Attending [facility] Care Facility Care Department Encounter ID Source 2020-12-17 02:08:19 Emergency [facility] [id number] [facility] 2020-12-13 19:20:51 Emergency [facility] [id number] [facility] 2023-08-10 10:15:00 2023-08-10 10:15:00 Outpatient PHILIP ANDRADE [facility] [id number] [facility] 2023-06-24 00:00:00 2023-06-28 15:22:15 Refill Nivia Eng [facility] 1.2.840.114 350.1.13.10 4.2.7.2.686 [id number] 044 [id number] [facility] 2023-06-09 11:30:00 2023-06-09 12:00:00 [facility] 1.2.840.114 350.1.13.10 4.2.7.2.686 [id number] [facility] 2023-06-09 11:30:00 2023-06-09 11:56:18 Outpatient R [facility] [id number] [facility] 2023-06-01 00:00:00 2023-06-01 00:00:00 Refill Sunday [facility] BUILDING 1.2.840.114 350.1.13.10 4.2.7.2.686 [id number] [facility] 2023-05-31 00:00:00 2023-05-31 00:00:00 Refill Philip Dawson [facility] REAL[facility] OFFICE BUILDING 1.84.114 350.1.13.10 4.2.7.2.686 [id number] 044 [id number] [facility] 2023-05-13 00:00:00 2023-05-13 00:00:00 Refill Philip Dawson [facility] REAL?[facility] OFFICE BUILDING 1.84.114 350.1.13.10 4.2.7.2.686 [id number] 044 [id number] [facility] 2023-05-12 14:45:00 2023-05-12 15:00:00 [facility] OFF[facility] BUILDING 1.84114 350.1.13.10 4.2.7.2.686 [id number] 044 [id number] [facility] 2023-05-12 14:45:00 2023-05-12 14:45:00 Outpatient R PHILIP DAWSON [facility] [id number] [facility] 2023-05-12 00:00:00 2023-05-12 00:00:00 Telephone Dawson, [facility] BU[facility] 1.84.114 350.1.13.10 4.2.7.2.686 [id number] 044 [id number] [facility] 2023-05-03 13:00:00 2023-05-03 13:00:00 Outpatient ALAN HERNANDEZ [facility] [id number] [facility] 2023-04-30 00:00:00 2023-04-30 00:00:00 Telephone Samir [facility] REAL?[facility] BUILDING 1.84.114 350.1.13.10 4.2.7.2.686 [id number] 044 [id number] [facility] 2023-04-23 00:00:00 2023-04-23 00:00:00 Telephone Philip [facility] 1.2.840.114 350.1.13.10 4.2.7.2.686 [id number] 044 [id number] [facility] 2023-04-22 14:30:00 2023-04-22 14:53:32 Outpatient R JULIO MORRIS JULIO [facility] [id number] [facility] 2023-04-22 14:30:00 2023-04-22 14:53:32 Office Visit Julio Morris [facility]?JENNIFER [facility] MEDICAL OFFICE BUILDING 1..840.114 350.1.13.10 4.2.7.2.686 [id number] [facility] 2023-04-18 20:40:00 2023-04-18 22:52:00 Emergency X [facility] [id number] [facility] 2023-04-18 20:40:00 2023-04-18 22:52:00 Emergency Ole Brooks [facility] 1..840.114 350.1.13.10 4.2.7.2.686 [id number] [facility] 2023-04-12 10:15:00 2023-04-12 10:15:00 Office Visit Philip Dawson [facility]?JENNIFER [facility] MEDICAL OFFICE BUILDING 1..840.114 350.1.13.10 4.2.7.2.686 [id number] 044 [id number] [facility] 2023-04-12 10:15:00 2023-04-12 10:12:10 Outpatient R DAWSONPHILIP [facility] [id number] [facility] 2023-04-12 00:00:00 2023-04-12 00:00:00 Letter (Out) [facility] 1.2840.114 350.1.13.10 4.2.7.2.686 [id number] [facility] 2023-04-05 10:20:00 2023-04-05 10:45:00 [facility] [id number] [facility] 2023-04-05 10:20:00 2023-04-05 10:45:00 [facility] 1.2840.114 350.1.13.10 4.2.7.2.686 [id number] 059 [id number] [facility] 2023-03-29 00:00:00 2023-03-29 00:00:00 Refill Samir [facility] REAL?[facility] MEDICAL OFFICE BUILDING 1.2840.114 350.1.13.10 4.2.7.2.686 [id number] 044 [id number] [facility] 2023-03-25 00:00:00 2023-03-25 00:00:00 Telephone Samir [facility] REAL?[facility] MEDICAL OFFICE BUILDING 1.2840.114 350.1.13.10 4.2.7.2.686 [id number] 044 [id number] [facility] 2023-03-23 00:00:00 2023-03-23 00:00:00 Orders Only Doctor Unassigned, [place] [facility] 1.2840.114 350.1.13.10 4.2.7.2.686 [id number] [facility] 2023-03-17 00:00:00 2023-03-17 00:00:00 Refill [facility] MEDICAL OFFICE BUILDING 1.2840.114 350.1.13.10 4.2.7.2.686 [id number] [facility] 2023-03-11 00:00:00 2023-03-11 00:00:00 Orders Only Doctor Unassigned, [place] [facility] 1.2.114 350.1.13.10 4.2.7.2.686 [id number] [facility] 2023-03-09 09:15:00 2023-03-09 09:30:00 Office Visit Samir [facility] REAL?[facility] BUILDING 1.114 350.1.13.10 4.2.7.2.686 [id number] 044 [id number] [facility] 2023-03-09 09:15:00 2023-03-09 09:28:59 [facility] [id number] [facility] 2023-03-09 00:00:00 2023-03-09 00:00:00 Telephone Samir [facility] REAL?[facility] OFF[facility] BUILDING 1.114 350.1.13.10 4.2.7.2.686 [id number] 044 [id number] [facility] 2023-03-08 00:00:00 2023-03-08 00:00:00 Telephone Samir [facility] REAL?[facility] OFF[facility] BUILDING 1.114 350.1.13.10 4.2.7.2.686 [id number] 044 [id number] [facility] 2023-03-05 10:00:00 2023-03-05 10:00:00 Outpatient R ALBERTINA NIVIA [facility] [id number] [facility] 2023-03-05 00:00:00 2023-03-05 00:00:00 Telephone Ciarancheko [facility] REAL?[facility] MEDICAL OFFICE BUILDING 1.114 350.1.13.10 4.2.7.2.686 [id number] [facility] 2023-03-03 10:15:00 2023-03-03 10:15:00 Outpatient PHILIP NADRADE [facility] [id number] [facility] 2023-03-03 00:00:00 2023-03-03 00:00:00 Telephone Philip Dawson [facility] REAL?JENNIFER [facility] MEDICAL OFFICE BUILDING 1.20.114 350.1.13.10 4.2.7.2.686 [id number] 044 [id number] [facility] 2023-02-23 00:00:00 2023-02-23 00:00:00 Telephone Philip Dawson [facility] REAL?[facility] MEDICAL OFFICE BUILDING 1..114 350.1.13.10 4.2.7.2.686 [id number] 044 [id number] [facility] 2023-02-11 00:00:00 2023-02-11 00:00:00 Telephone Philip Dawson [facility] MEDICAL OFFICE BUILDING 1..114 350.1.13.10 4.2.7.2.686 [id number] 044 [id number] [facility] 2023-02-10 10:00:00 2023-02-10 10:00:00 Outpatient PHILIP ANDRADE [facility] [id number] [facility] 2023-02-05 00:00:00 2023-02-05 00:00:00 Orders Only Doctor Unassigned, [place] [facility] 1..114 350.1.13.10 4.2.7.2.686 [id number] [facility] 2023-02-02 00:00:00 2023-02-02 00:00:00 Patient Secure Msg Doctor Unassigned, [place] [facility] MEDICAL OFFICE BUILDING 1..114 350.1.13.10 4.2.7.2.686 [id number] 044 [id number] [facility] 2023-02-02 00:00:00 2023-02-02 00:00:00 [facility] BU[facility] 1.2.840.114 350.1.13.10 4.2.7.2.686 [id number] 044 [id number] [facility] 2023-02-02 00:00:00 2023-02-02 00:00:00 Patient Secure Msg Christofer [facility] BUILDING 1.2840.114 350.1.13.10 4.2.7.2.686 [id number] 059 [id number] [facility] 2023-02-01 15:00:00 2023-02-01 15:07:34 Registered Nurse Practitioner Visit 2, Adc Lab Christofer [facility] BUILDING 1.2840.114 350.1.13.10 4.2.7.2.686 [id number] [facility] 2023-02-01 15:00:00 2023-02-01 15:00:00 [facility] [id number] [facility] 2023-02-01 14:40:00 2023-02-01 15:00:00 Office Visit Christofer [facility] BUILDING 1.2840.114 350.1.13.10 4.2.7.2.686 [id number] [facility] 2023-02-01 00:00:00 2023-02-01 00:00:00 [facility] 1.2.840.114 350.1.13.10 4.2.7.2.686 [id number] [id number] [facility] 2023-01-29 00:00:00 2023-01-29 00:00:00 [facility]phone [facility] BU[facility] 1.2.840.114 350.1.13.10 4.2.7.2.686 [id number] 044 [id number] [facility] 2023-01-25 13:20:00 2023-01-25 13:20:00 Outpatient ALAN HERNANDEZ [facility] [id number] [facility] 2023-01-19 00:00:00 2023-01-19 00:00:00 Telephone Philip Dawson [facility] REAL?JENNIFER [facility] MEDICAL OFFICE BUILDING 1.2.840.114 350.1.13.10 4.2.7.2.686 [id number] 044 [id number] [facility] 2023-01-18 00:00:00 2023-01-18 00:00:00 [facility] MEDICAL OFFICE BUILDING 1.2.840.114 350.1.13.10 4.2.7.2.686 [id number] 044 [id number] [facility] 2023-01-15 00:00:00 2023-01-15 00:00:00 Telephone Samir [facility] REAL?[facility] MEDICAL OFFICE BUILDING 1.2.840.114 350.1.13.10 4.2.7.2.686 [id number] 044 [id number] [facility] 2023-01-06 14:30:00 2023-01-06 14:45:00 Office Visit [facility] MEDICAL OFFICE BUILDING 1.2.840.114 350.1.13.10 4.2.7.2.686 [id number] 044 [id number] [facility] 2023-01-06 14:30:00 2023-01-06 14:30:00 Outpatient R PHILIP DAWSON [facility] [id number] [facility] 2023-01-06 00:00:00 2023-01-06 00:00:00 Orders Only Doctor Unassigned, [place] [facility] 1.2.114 350.1.13.10 4.2.7.2.686 [id number] [facility] 2023-01-02 00:00:00 2023-01-02 00:00:00 Refill Samir [facility] MEDICAL OFFICE BUILDING 1.84.114 350.1.13.10 4.2.7.2.686 [id number] 044 [id number] [facility] 2022-12-31 10:15:00 2022-12-31 10:42:11 Outpatient R PHILIP DAWSON [facility] [id number] [facility] 2022-12-31 10:15:00 2022-12-31 10:30:00 Office Visit Dawson [facility] MEDICAL OFFICE BUILDING 1.84.114 350.1.13.10 4.2.7.2.686 [id number] [facility] 2022-12-30 00:00:00 2022-12-30 00:00:00 Telephone Alan Beaulieu [facility] NAL BUILDING 1.84.114 350.1.13.10 4.2.7.2.686 [id number] [id number] [facility] 2022-12-30 00:00:00 2022-12-30 00:00:00 Telephone Samir [facility] OFFICE BUILDING 1.284.114 350.1.13.10 4.2.7.2.686 [id number] 044 [id number] [facility] 2022-12-09 08:45:00 2022-12-09 09:13:50 Outpatient BRIANNA SELBY [facility] [id number] [facility] 2022-12-09 08:45:00 2022-12-09 09:13:50 Office Visit Brianna Brand [facility] BUILDING 1.2.840.114 350.1.13.10 4.2.7.2.686 [id number] [facility] 2022-12-09 00:00:00 2022-12-09 00:00:00 Telephone Inez Susan [facility]?JENNIFER [facility] MEDICAL OFFICE BUILDING 1..840.114 350.1.13.10 4.2.7.2.686 [id number] 044 [id number] [facility] 2022-12-09 00:00:00 2022-12-09 00:00:00 Patient Secure Msg Doctor Unassigned, [place] [facility]?JENNIFER [facility] MEDICAL OFFICE BUILDING 1..840.114 350.1.13.10 4.2.7.2.686 [id number] [id number] [facility] 2022-11-30 10:00:00 2022-11-30 10:20:00 Office Visit Alan Beaulieu [facility] BUILDING 1..840.114 350.1.13.10 4.2.7.2.686 [id number] [facility] 2022-11-30 10:00:00 2022-11-30 10:00:00 Outpatient R ALAN BEAULIEU [facility] [id number] [facility] 2022-11-26 10:15:00 2022-11-26 10:45:06 Outpatient R PHILIP DAWSON [facility] [id number] [facility] 2022-11-26 10:15:00 2022-11-26 10:45:06 Office Visit Philip [facility] MED[facility] OFF[facility] BUILDING 1.2.840.114 350.1.13.10 4.2.7.2.686 [id number] [id number] [facility] 2022-11-26 00:00:00 2022-11-26 00:00:00 Telephone Susan Yadav [facility] REAL?[facility] BUILDING 1.2840.114 350.1.13.10 4.2.7.2.686 [id number] 044 [id number] [facility] 2022-11-26 00:00:00 2022-11-26 00:00:00 Telephone Philip Dawson [facility] REAL?JENNIFER [facility] MEDICAL OFFICE BUILDING 1.840.114 350.1.13.10 4.2.7.2.686 [id number] 044 [id number] [facility] 2022-11-25 13:15:00 2022-11-25 13:32:37 Outpatient R CONNIE OSUNA [facility] [id number] [facility] 2022-11-25 13:15:00 2022-11-25 13:32:37 Office Visit Julio Morris Brett S [facility] MED[facility] OFF[facility] BUILDING 1.114 350.1.13.10 4.2.7.2.686 [id number] [facility] 2022-11-24 00:00:00 2022-11-24 00:00:00 Telephone Samir Philip [facility] REAL?JENNIFER [facility] MEDICAL OFFICE BUILDING 1.2.114 350.1.13.10 4.2.7.2.686 [id number] 044 [id number] [facility] 2022-11-20 00:00:00 2022-11-20 00:00:00 Transition of Care Maria M Aragon 1.2840.114 350.1.13.10 4.2.7.2.686 [id number] [facility] 2022-11-19 05:10:00 2022-11-19 14:29:00 Outpatient ROBERT MENJIVAR [facility] [id number] [facility] 2022-11-19 05:10:00 2022-11-19 14:29:00 Hospital Encounter Leah Reis David [facility] 1.2.840.114 350.1.13.10 4.2.7.2.686 [id number] [facility] 2022-11-17 00:00:00 2022-11-17 00:00:00 Telephone Philip Dawson [facility] BU[facility] 1.2840.114 350.1.13.10 4.2.7.2.686 [id number] 044 [id number] [facility] 2022-11-12 11:45:00 2022-11-12 11:45:00 [facility] [id number] [facility] 2022-11-12 11:45:00 2022-11-12 11:45:00 Registered Nurse Practitioner Visit Lab, Rodger - Keith Unknown, Attending eHlen [facility] OFFICE BUILDING 1.20.114 350.1.13.10 4.2.7.2.686 [id number] [facility] 2022-11-12 10:15:00 2022-11-12 10:30:00 Office Visit Philip Dawson [facility] OFFICE BUILDING 1.20.114 350.1.13.10 4.2.7.2.686 [id number] 044 [id number] [facility] 2022-11-12 09:30:00 2022-11-12 09:50:00 Nurse Visit Nurse, [facility] Unknown, Attending [facility] OFFICE BUILDING 1.2840.114 350.1.13.10 4.2.7.2.686 [id number] [facility] 2022-11-11 00:00:00 2022-11-11 00:00:00 Telephone Susan Yadav [facility] REAL?SAMEERErum [facility] MEDICAL OFFICE BUILDING 1.2.840.114 350.1.13.10 4.2.7.2.686 [id number] 044 [id number] [facility] 2022-11-03 00:00:00 2022-11-03 00:00:00 [facility]Alan [facility]roy [facility] 1.2.840.114 350.1.13.10 4.2.7.2.686 [id number] 059 [id number] [facility] 2022-10-29 00:00:00 2022-10-29 00:00:00 Telephone Philip Dawson [facility] REAL?JENNIFER [facility] MEDICAL OFFICE BUILDING 1..840.114 350.1.13.10 4.2.7.2.686 [id number] 044 [id number] [facility] 2022-10-27 00:00:00 2022-10-27 00:00:00 Telephone Philip Dawson [facility] REAL?JENNIFER [facility] MEDICAL OFFICE BUILDING 1.2.840.114 350.1.13.10 4.2.7.2.686 [id number] 044 [id number] [facility] 2022-10-16 00:00:00 2022-10-16 00:00:00 Orders Only Doctor Unassigned, [place] [facility] 1.2.840.114 350.1.13.10 4.2.7.2.686 [id number] [facility] 2022-10-15 13:00:00 2022-10-15 13:00:00 Outpatient ALAN HERNANDEZ [facility] [id number] [facility] 2022-10-08 00:00:00 2022-10-08 00:00:00 Tele[facility] BUILDING 1.2.840.114 350.1.13.10 4.2.7.2.686 [id number] 044 [id number] [facility] 2022-10-07 09:30:00 2022-10-07 10:23:18 Outpatient R PHILIP DAWSON [facility] [id number] [facility] 2022-10-07 09:30:00 2022-10-07 09:45:00 Office Visit Philip [facility] 1.2.840.114 350.1.13.10 4.2.7.2.686 [id number] [id number] [facility] 2022-10-07 00:00:00 2022-10-07 00:00:00 Refill Antonia Saab [facility] OFF[facility] BUILDING 1.2.840.114 350.1.13.10 4.2.7.2.686 [id number] [facility] 2022-10-06 00:00:00 2022-10-06 00:00:00 Refill [facility] 1.2.840.114 350.1.13.10 4.2.7.2.686 [id number] 044 [id number] [facility] 2022-10-03 00:00:00 2022-10-03 00:00:00 Refill Samir [facility] BU[facility] 1.2.840.114 350.1.13.10 4.2.7.2.686 [id number] [id number] [facility] 2022-09-25 14:20:00 2022-09-25 14:32:13 Outpatient R ALAN BEAULIEU [facility] [id number] [facility] 2022-09-25 14:20:00 2022-09-25 14:32:13 Office Visit Alan Beaulieu [facility] BUILDING 1.2840.114 350.1.13.10 4.2.7.2.686 [id number] [facility] 2022-09-24 00:00:00 2022-09-24 00:00:00 Telephone Alan Beaulieu [facility] 1.2840.114 350.1.13.10 4.2.7.2.686 [id number] [facility] 2022-09-08 00:00:00 2022-09-08 00:00:00 Telephone [facility] 1.840.114 350.1.13.10 4.2.7.2.686 [id number] [facility] 2022-09-08 00:00:00 2022-09-08 00:00:00 Telephone Philip Dawson [facility] 1..114 350.1.13.10 4.2.7.2.686 [id number] [facility] 2022-09-06 00:00:00 2022-09-06 00:00:00 Refill Cyrus Pablo [facility] 1.0.114 350.1.13.10 4.2.7.2.686 [id number] [facility] 2022-09-06 00:00:00 2022-09-06 00:00:00 Patient Secure Msg Doctor Unassigned, [place] [facility] 1.840.114 350.1.13.10 4.2.7.2.686 [id number] [facility] 2022-09-03 00:00:00 2022-09-03 00:00:00 [facility]andan [facility] 1.84114 350.1.13.10 4.2.7.2.686 [id number] [facility] 2022-09-01 11:45:00 2022-09-01 12:36:58 Registered Nurse Practitioner Visit Lab, [facility] 1.114 350.1.13.10 4.2.7.2.686 [id number] [facility] 2022-09-01 10:30:00 2022-09-01 11:35:28 Outpatient R ALBERTINA [facility] [id number] [facility] 2022-09-01 10:30:00 2022-09-01 11:35:28 [facility] 1.114 350.1.13.10 4.2.7.2.686 [id number] [facility] 2022-09-01 00:00:00 2022-09-01 00:00:00 Patient Secure Msg Doctor Unassigned, [place] [facility] 1.84114 350.1.13.10 4.2.7.2.686 [id number] [facility] 2022-08-31 10:00:00 2022-08-31 10:00:00 Outpatient R CHANDAN SHEEHAN HAW[facility] [id number] [facility] 2022-08-28 00:00:00 2022-08-28 00:00:00 Orders Only Doctor Unassigned, [place] [facility] 1.114 350.1.13.10 4.2.7.2.686 [id number] [id number] [facility] 2022-08-27 00:00:00 2022-08-27 00:00:00 Refill Alan Beaulieu [facility] BUILDING 1.2.840.114 350.1.13.10 4.2.7.2.686 [id number] 059 [id number] [facility] 2022-08-27 00:00:00 2022-08-27 00:00:00 Telephone Dawson PhilipFormerly [facility] REAL?JENNIFER [facility] MEDICAL OFFICE BUILDING 1.2.840.114 350.1.13.10 4.2.7.2.686 [id number] 044 [id number] [facility] 2022-08-17 00:00:00 2022-08-17 00:00:00 Refill Alan Beaulieu [facility] BUILDING 1.2.840.114 350.1.13.10 4.2.7.2.686 [id number] 059 [id number] [facility] 2022-08-14 09:00:00 2022-08-14 09:30:00 Office Visit Moraima SaabFormerly [facility] REAL?JENNIFER [facility] MEDICAL OFFICE BUILDING 1.2.840.114 350.1.13.10 4.2.7.2.686 [id number] 092 [id number] [facility] 2022-08-14 09:00:00 2022-08-14 09:00:00 [facility] [id number] [facility] 2022-08-14 00:00:00 2022-08-14 00:00:00 [facility] BU[facility] 1.2.840.114 350.1.13.10 4.2.7.2.686 [id number] 044 [id number] [facility] 2022-08-07 00:00:00 2022-08-07 00:00:00 Refill Kristan, [facility] BUILDING 1.2.840.114 350.1.13.10 4.2.7.2.686 [id number] [facility] 2022-08-05 14:15:00 2022-08-05 14:22:34 Registered Nurse Practitioner Visit 2, Adc Lab Christofer [facility] BUILDING 1.2.840.114 350.1.13.10 4.2.7.2.686 [id number] [facility] 2022-08-05 14:15:00 2022-08-05 14:15:00 Outpatient R CHRISTOFER [facility] [id number] [facility] 2022-08-05 13:40:00 2022-08-05 14:13:02 Office Visit Christofer [facility] BUILDING 1.2.840.114 350.1.13.10 4.2.7.2.686 [id number] 059 [id number] [facility] 2022-08-05 00:00:00 2022-08-05 00:00:00 Patient Secure Msg Christofer [facility] BUILDING 1.2.840.114 350.1.13.10 4.2.7.2.686 [id number] 059 [id number] [facility] 2022-07-29 11:00:00 2022-07-29 23:59:00 [facility] [id number] [facility] 2022-07-29 00:00:00 2022-07-29 00:00:00 Patient Secure Msg Christofer [facility] BUILDING 1.2.840.114 350.1.13.10 4.2.7.2.686 [id number] 059 [id number] [facility] 2022-07-28 00:00:00 2022-07-28 00:00:00 Telephone Inez [facility] REAL?[facility] MEDICAL OFFICE BUILDING 1.2840.114 350.1.13.10 4.2.7.2.686 [id number] 044 [id number] [facility] 2022-07-27 00:00:00 2022-07-27 00:00:00 Telephone Inez [facility] REAL?[facility] MEDICAL OFFICE BUILDING 1.2840.114 350.1.13.10 4.2.7.2.686 [id number] 044 [id number] [facility] 2022-07-27 00:00:00 2022-07-27 00:00:00 Refill Philip Dawson [facility] REAL?[facility] MEDICAL OFFICE BUILDING 1.2840.114 350.1.13.10 4.2.7.2.686 [id number] 044 [id number] [facility] 2022-07-27 00:00:00 2022-07-27 00:00:00 Telephone Samir [facility] REAL?[facility] MEDICAL OFFICE BUILDING 1.2840.114 350.1.13.10 4.2.7.2.686 [id number] 044 [id number] [facility] 2022-07-22 00:00:00 2022-07-22 00:00:00 Refill Samir [facility] REAL?[facility] MEDICAL OFFICE BUILDING 1.2840.114 350.1.13.10 4.2.7.2.686 [id number] 044 [id number] [facility] 2022-07-21 00:00:00 2022-07-21 00:00:00 Refill Alan Beaulieu [facility] NAL BUILDING 1.2840.114 350.1.13.10 4.2.7.2.686 [id number] 059 [id number] [facility] 2022-07-19 00:00:2022-07-19 00:00:00 Patient Secure Msg Doctor Unassigned, [place] [facility] BUILD[facility] 1.2.840.114 350.1.13.10 4.2.7.2.686 [id number] 044 [id number] [facility] 2022-07-19 00:00:00 2022-07-19 00:00:00 Refill Cyrus Pablo [facility] REAL?[facility] BUILDING 1.2.840.114 350.1.13.10 4.2.7.2.686 [id number] [facility] 2022-07-19 00:00:00 2022-07-19 00:00:00 Refill Kalina Beaulieuko [facility] BUILDING 1..840.114 350.1.13.10 4.2.7.2.686 [id number] 059 [id number] [facility] 2022-07-16 00:00:00 2022-07-16 00:00:00 Patient Outreach Kaylee Velasquez [facility] REAL?[facility] BUILDING 1..840.114 350.1.13.10 4.2.7.2.686 [id number] [facility] 2022-07-15 00:00:00 2022-07-15 00:00:00 [facility] 1..840.114 350.1.13.10 4.2.7.2.686 [id number] 059 [id number] [facility] 2022-07-14 08:30:00 2022-07-14 08:59:44 Outpatient R CONNIE OSUNA [facility] [id number] [facility] 2022-07-14 08:30:00 2022-07-14 08:59:44 Office Visit Connie Osuna [facility] REAL?[facility] OFF[facility] BUILDING 1.840.114 350.1.13.10 4.2.7.2.686 [id number] [facility] 2022-07-12 00:00:00 2022-07-12 00:00:00 [facility] 1..114 350.1.13.10 4.2.7.2.686 [id number] 059 [id number] [facility] 2022-07-10 08:30:00 2022-07-10 08:30:00 Outpatient R CONNIE OSUNA [facility] [id number] [facility] 2022-07-07 10:00:00 2022-07-07 10:30:00 Office Visit Philip Dawson [facility] BUILDING 1.84.114 350.1.13.10 4.2.7.2.686 [id number] 044 [id number] [facility] 2022-07-07 10:00:00 2022-07-07 10:00:00 Outpatient R PHILIP DAWSON [facility] [id number] [facility] 2022-07-06 00:00:00 2022-07-06 00:00:00 RefAdelaide Rao [facility] 1..114 350.1.13.10 4.2.7.2.686 [id number] 044 [id number] [facility] 2022-07-04 00:00:00 2022-07-04 00:00:00 Patient Secure Msg Christofer [facility] BUILDING 1.840.114 350.1.13.10 4.2.7.2.686 [id number] 059 [id number] [facility] 2022-07-03 16:00:00 2022-07-03 16:21:47 Registered Nurse Practitioner Visit 2, Adc Lab [facility] 1.2840.114 350.1.13.10 4.2.7.2.686 [id number] [facility] 2022-07-03 15:40:00 2022-07-03 15:50:51 Outpatient R ALAN BEAULIEU [facility] [id number] [facility] 2022-07-03 15:40:00 2022-07-03 15:50:51 Office [facility] 1.840.114 350.1.13.10 4.2.7.2.686 [id number] 059 [id number] [facility] 2022-06-26 00:00:00 2022-06-26 00:00:00 Telephone Samir [facility] 1.0114 350.1.13.10 4.2.7.2.686 [id number] 044 [id number] [facility] 2022-06-26 00:00:00 2022-06-26 00:00:00 Orders Only Doctor Unassigned, [place] [facility] 1.840.114 350.1.13.10 4.2.7.2.686 [id number] [id number] [facility] 2022-06-24 00:00:00 2022-06-24 00:00:00 [facility] BUILDING 1.840.114 350.1.13.10 4.2.7.2.686 [id number] 044 [id number] [facility] 2022-06-22 00:00:00 2022-06-22 00:00:00 Telephone Susan [facility] MED[facility] OFF[facility] BUILDING 1.840.114 350.1.13.10 4.2.7.2.686 [id number] 044 [id number] [facility] 2022-06-21 00:00:00 2022-06-21 00:00:00 [facility] 1.2.840.114 350.1.13.10 4.2.7.2.686 [id number] 059 [id number] [facility] 2022-06-19 13:00:00 2022-06-19 13:48:49 [facility] [id number] [facility] 2022-06-19 13:00:00 2022-06-19 13:48:49 Office [facility] 1.2.840.114 350.1.13.10 4.2.7.2.686 [id number] 059 [id number] [facility] 2022-06-18 00:00:00 2022-06-18 00:00:00 Telephone Inez [facility] REAL?[facility] MEDICAL OFFICE BUILDING 1.2.840.114 350.1.13.10 4.2.7.2.686 [id number] 044 [id number] [facility] 2022-06-17 00:00:00 2022-06-17 00:00:00 Patient Secure Msg Samir [facility] REAL?[facility] MEDICAL OFFICE BUILDING 1.2.840.114 350.1.13.10 4.2.7.2.686 [id number] 044 [id number] [facility] 2022-06-17 00:00:00 2022-06-17 00:00:00 Telephone Philip Dawson [facility] REAL?[facility] BUILDING 1.2.840.114 350.1.13.10 4.2.7.2.686 [id number] 044 [id number] [facility] 2022-06-16 00:00:00 2022-06-16 00:00:00 Telephone Inez [facility] REAL?[facility] OFF[facility] BUILDING 1.2840.114 350.1.13.10 4.2.7.2.686 [id number] 044 [id number] [facility] 2022-06-15 00:00:00 2022-06-15 00:00:00 Orders Only Doctor Unassigned, [place] [facility] 1.840.114 350.1.13.10 4.2.7.2.686 [id number] [id number] [facility] 2022-06-14 00:00:00 2022-06-14 00:00:00 [facility] BUILDING 1.840.114 350.1.13.10 4.2.7.2.686 [id number] 092 [id number] [facility] 2022-06-12 09:30:00 2022-06-12 10:01:28 Outpatient R [facility] [id number] [facility] 2022-06-12 09:30:00 2022-06-12 10:01:28 [facility] BUILDING 1.840.114 350.1.13.10 4.2.7.2.686 [id number] 092 [id number] [facility] 2022-06-12 00:00:00 2022-06-12 00:00:00 Telephone Alan Beaulieu [facility] NAL BUILDING 1.840.114 350.1.13.10 4.2.7.2.686 [id number] 059 [id number] [facility] 2022-06-11 09:00:00 2022-06-11 09:41:08 Registered Nurse Practitioner Visit Lab, Susan Isidro [facility] MEDICAL OFFICE BUILDING 1.840.114 350.1.13.10 4.2.7.2.686 [id number] [facility] 2022-06-11 08:00:00 2022-06-11 08:53:17 Outpatient [facility] [id number] [facility] 2022-06-11 08:00:00 2022-06-11 08:53:17 Office Visit Inez [facility]?JENNIFER [facility] MED[facility] OFF[facility] BUILDING 1.2840.114 350.1.13.10 4.2.7.2.686 [id number] 044 [id number] [facility] 2022-06-11 00:00:00 2022-06-11 00:00:00 Patient Outreach Braxton Ania L [facility] MEDICAL OFFICE BUILDING 1..840.114 350.1.13.10 4.2.7.2.686 [id number] 044 [id number] [facility] 2022-06-11 00:00:00 2022-06-11 00:00:00 Orders Only Doctor Unassigned, [place] [facility] 1.840.114 350.1.13.10 4.2.7.2.686 [id number] [id number] [facility] 2022-06-10 09:15:00 2022-06-10 10:14:40 Outpatient R BRIANNA BRAND [facility] [id number] [facility] 2022-06-10 09:15:00 2022-06-10 10:14:40 Office Visit Brianna Brand [facility] NAL BUILDING 1.840.114 350.1.13.10 4.2.7.2.686 [id number] [facility] 2022-06-08 15:40:00 2022-06-08 15:40:00 Outpatient R ALAN BEAULIEU [facility] [id number] [facility] 2022-06-08 00:00:00 2022-06-08 00:00:00 Telephone Alan Beaulieu [facility] N[facility] BUILD[facility] 1..840.114 350.1.13.10 4.2.7.2.686 [id number] 059 [id number] [facility] 2022-06-05 10:54:49 2022-06-05 23:59:00 Outpatient [facility] [id number] [facility] 2022-06-05 10:54:49 2022-06-05 23:59:00 Hospital Encounter Inez Susan [facility] 1.840.114 350.1.13.10 4.2.7.2.686 [id number] [facility] 2022-06-05 09:45:00 2022-06-05 10:33:00 Registered Nurse Practitioner Visit Lab, Rodger Jonesjosias [facility] REAL?[facility] MEDICAL OFFICE BUILDING 1.840.114 350.1.13.10 4.2.7.2.686 [id number] [facility] 2022-06-05 08:40:00 2022-06-05 09:38:18 Office Visit Inez [facility] REAL?[facility] MEDICAL OFFICE BUILDING 1.840.114 350.1.13.10 4.2.7.2.686 [id number] 044 [id number] [facility] 2022-06-02 00:00:00 2022-06-02 00:00:00 Refill Dawson [facility] REAL?[facility] MEDICAL OFFICE BUILDING 1.2840.114 350.1.13.10 4.2.7.2.686 [id number] 044 [id number] [facility] 2022-05-25 00:00:00 2022-05-25 00:00:00 Telephone Samir [facility] REAL?[facility] MEDICAL OFFICE BUILDING 1.2.840.114 350.1.13.10 4.2.7.2.686 [id number] 044 [id number] [facility] 2022-05-24 00:00:00 2022-05-24 00:00:00 Refill [facility]er [facility] 1.2.840.114 350.1.13.10 4.2.7.2.686 [id number] 059 [id number] [facility] 2022-05-20 00:00:00 2022-05-20 00:00:00 Telephone Samir [facility] REAL?[facility] MEDICAL OFFICE BUILDING 1.2.840.114 350.1.13.10 4.2.7.2.686 [id number] 044 [id number] [facility] 2022-05-20 00:00:00 2022-05-20 00:00:00 Telephone Samir [facility] REAL?[facility] MEDICAL OFFICE BUILDING 1.2.840.114 350.1.13.10 4.2.7.2.686 [id number] 044 [id number] [facility] 2022-05-20 00:00:00 2022-05-20 00:00:00 Refill Samir [facility] REAL?[facility] MEDICAL OFFICE BUILDING 1.2840.114 350.1.13.10 4.2.7.2.686 [id number] 044 [id number] [facility] 2022-05-13 15:15:00 2022-05-13 15:30:00 Office Visit Samir [facility] REAL?[facility] OFFICE BUILDING 1.2.840.114 350.1.13.10 4.2.7.2.686 [id number] 044 [id number] [facility] 2022-05-13 15:15:00 2022-05-13 15:15:00 Outpatient R PHILIP DAWSON [facility] [id number] [facility] 2022-05-13 00:00:00 2022-05-13 00:00:00 Orders Only Doctor Unassigned, [place] [facility] 1.2840.114 350.1.13.10 4.2.7.2.686 [id number] [facility] 2022-05-12 13:00:00 2022-05-12 14:25:34 Outpatient R [facility] [id number] [facility] 2022-05-12 13:00:00 2022-05-12 14:25:[address] [facility] MED[facility] OFFICE BUILDING 1.2840.114 350.1.13.10 4.2.7.2.686 [id number] 092 [id number] [facility] 2022-05-12 00:00:00 2022-05-12 00:00:00 RefAlan Mon[facility] 1.2.840.114 350.1.13.10 4.2.7.2.686 [id number] 059 [id number] [facility] 2022-05-07 00:00:00 2022-05-07 00:00:00 Patient Secure Msg Doctor Unassigned, [place] [facility] 1.2840.114 350.1.13.10 4.2.7.2.686 [id number] 019 [id number] [facility] 2022-05-06 00:00:00 2022-05-06 00:00:00 Telephone Samir [facility] BUILDING 1.2840.114 350.1.13.10 4.2.7.2.686 [id number] 044 [id number] [facility] 2022-05-05 10:15:00 2022-05-05 10:15:00 Outpatient R PHILIP DAWSON [facility] [id number] [facility] 2022-05-04 15:00:00 2022-05-04 15:34:06 Outpatient R PHILIP DAWSON [facility] [id number] [facility] 2022-05-04 15:00:00 2022-05-04 15:34:06 [facility] BUILDING 1.114 350.1.13.10 4.2.7.2.686 [id number] 044 [id number] [facility] 2022-05-02 00:00:00 2022-05-02 00:00:00 Refill [facility] MED[facility] OFFICE BUILDING 1.114 350.1.13.10 4.2.7.2.686 [id number] 044 [id number] [facility] 2022-05-01 11:21:52 2022-05-01 23:59:00 Outpatient R LANDON CERVANTES [facility] [id number] [facility] 2022-05-01 11:21:52 2022-05-01 23:59:00 Hospital Encounter [facility]le [facility] hospital[facility] MEDICAL OFFICE BUILDING 1.114 350.1.13.10 4.2.7.2.686 [id number] [facility] 2022-05-01 11:21:51 2022-05-01 23:59:00 Hospital Encounter [facility]andon [facility] MED[facility] OFFICE BUILDING 1.114 350.1.13.10 4.2.7.2.686 [id number] 808 [id number] [facility] 2022-05-01 11:21:51 2022-05-01 23:59:00 Hospital Encounter Mele [facility]antesCritical access hospitalAJ [facility] MEDICAL OFFICE BUILDING 1.114 350.1.13.10 4.2.7.2.686 [id number] 808 [id number] [facility] 2022-05-01 11:21:50 2022-05-01 23:59:00 Hospital Encounter Landon Cervantes [facility] REAL?[facility] OFF[facility] BUILDING 1.2840.114 350.1.13.10 4.2.7.2.686 [id number] 808 [id number] [facility] 2022-05-01 10:40:00 2022-05-01 11:31:41 Urgent Care Landon Cervantes Unknown, Attending [facility] MEDICAL OFFICE BUILDING 1.2.114 350.1.13.10 4.2.7.2.686 [id number] [facility] 2022-05-01 00:00:00 2022-05-01 00:00:00 Orders Only Doctor Unassigned, [place] [facility] 1.2840.114 350.1.13.10 4.2.7.2.686 [id number] [id number] [facility] 2022-05-01 00:00:00 2022-05-01 00:00:00 Telephone Samir Philip [facility] REAL?[facility] MEDICAL OFFICE BUILDING 1.284.114 350.1.13.10 4.2.7.2.686 [id number] [facility] 2022-04-27 00:00:00 2022-04-27 00:00:00 Telephone Samir Philip [facility] REAL?[facility] MED[facility] OFF[facility] BUILDING 1.2.114 350.1.13.10 4.2.7.2.686 [id number] 044 [id number] [facility] 2022-04-27 00:00:00 2022-04-27 00:00:00 Telephone Samir Philip [facility] REAL?[facility] MEDICAL OFFICE BUILDING 1.2.114 350.1.13.10 4.2.7.2.686 [id number] 044 [id number] [facility] 2022-04-17 00:00:00 2022-04-17 00:00:00 Telephone Samir [facility] REAL?JENNIFER [facility] MEDICAL OFFICE BUILDING 1.2840.114 350.1.13.10 4.2.7.2.686 [id number] 044 [id number] [facility] 2022-04-15 00:00:00 2022-04-15 00:00:00 Refill Samir [facility] REAL?[facility] MEDICAL OFFICE BUILDING 1.2840.114 350.1.13.10 4.2.7.2.686 [id number] 044 [id number] [facility] 2022-04-13 00:00:00 2022-04-13 00:00:00 Telephone Samir [facility] REAL?[facility] MED[facility] OFF[facility] BUILDING 1.2840.114 350.1.13.10 4.2.7.2.686 [id number] 044 [id number] [facility] 2022-04-07 00:00:00 2022-04-07 00:00:00 Patient Secure Chandan Willard [facility] REAL?[facility] MEDICAL OFFICE BUILDING 1.2840.114 350.1.13.10 4.2.7.2.686 [id number] [facility] 2022-04-06 00:00:00 2022-04-06 00:00:00 Refill Juan Billings [facility] REAL?[facility] MEDICAL OFFICE BUILDING 1.2840.114 350.1.13.10 4.2.7.2.686 [id number] 044 [id number] [facility] 2022-04-01 14:30:00 2022-04-01 15:19:43 Outpatient R CHANDAN SHEEHAN YU [facility] [id number] [facility] 2022-04-01 14:30:00 2022-04-01 15:19:43 Office Visit Chandan Sheehan [facility] REAL?[facility] OFF[facility] BUILDING 1.2840.114 350.1.13.10 4.2.7.2.686 [id number] [facility] 2022-04-01 15:00:00 2022-04-01 15:15:00 Registered Nurse Practitioner Visit Lab, Rodger - Keith Chandan Sheehan [facility] MED[facility] OFF[facility] BUILDING 1.2840.114 350.1.13.10 4.2.7.2.686 [id number] [facility] 2022-03-28 00:00:00 2022-03-28 00:00:00 Orders Only Doctor Unassigned, [place] [facility] 1.2840.114 350.1.13.10 4.2.7.2.686 [id number] [facility] 2022-03-18 00:00:00 2022-03-18 00:00:00 [facility] 1.2840.114 350.1.13.10 4.2.7.2.686 [id number] [facility] 2022-03-08 00:00:00 2022-03-08 00:00:00 Refill Samir [facility] REAL[facility] 1.2840.114 350.1.13.10 4.2.7.2.686 [id number] [facility] 2022-03-03 00:00:00 2022-03-03 00:00:00 [facility] 1.2840.114 350.1.13.10 4.2.7.2.686 [id number] [facility] 2022-02-17 08:30:00 2022-02-17 09:20:40 Outpatient R SHAQUILLEMARCY Danielson [facility] [id number] [facility] 2022-02-17 08:30:00 2022-02-17 09:20:40 Office Visit ShaquilleMarcy danielson [facility] REAL?[facility]ENN[facility] 1.2.840.114 350.1.13.10 4.2.7.2.686 [id number] [facility] 2022-02-11 00:00:00 2022-02-11 00:00:00 Refill Dawson, Philip [facility] REAL?[facility] 1.2.840.114 350.1.13.10 4.2.7.2.686 [id number] [facility] 2022-02-09 00:00:00 2022-02-09 00:00:00 Refill Samir [facility] REAL?[facility] 1.2.840.114 350.1.13.10 4.2.7.2.686 [id number] [facility] 2022-01-23 09:00:00 2022-01-23 09:49:47 Outpatient R JULIO MORRIS [facility] [id number] [facility] 2022-01-23 09:00:00 2022-01-23 09:49:47 Office Visit Julio Morris [facility] REAL[facility] 1.2.840.114 350.1.13.10 4.2.7.2.686 [id number] [facility] 2022-01-05 10:15:00 2022-01-05 10:33:23 Outpatient R PHILIP DAWSON [facility] [id number] [facility] 2022-01-05 10:15:00 2022-01-05 10:30:00 Office Visit Philip Dawson [facility] 1.2840.114 350.1.13.10 4.2.7.2.686 [id number] [facility] 2022-01-05 00:00:00 2022-01-05 00:00:00 Orders Only Doctor Unassigned, [place] [facility] 1.2.840.114 350.1.13.10 4.2.7.2.686 [id number] [facility] 2021-12-31 00:00:00 2021-12-31 00:00:00 Refill Samir [facility] 1.2840.114 350.1.13.10 4.2.7.2.686 [id number] [facility] 2021-12-29 09:30:00 2021-12-29 09:30:00 Outpatient R SAMIR PHILIP [facility] [id number] [facility] 2021-12-24 00:00:00 2021-12-24 00:00:00 Telephone Mickey Luciano [facility] MEDICAL OFFICE BUILDING 1.2840.114 350.1.13.10 4.2.7.2.686 [id number] 220 [id number] [facility] 2021-12-23 00:00:00 2021-12-23 00:00:00 Transition of Care Jaylin Ivey 1.2840.114 350.1.13.10 4.2.7.2.686 [id number] 403 [id number] [facility] 2021-12-19 09:53:00 2021-12-21 16:19:00 Outpatient MORALES MCGHEE [facility] [id number] [facility] 2021-12-19 09:53:00 2021-12-21 16:19:00 Emergency Barroso, Anuj Kennedy, Robert Mckeon, Morales [facility] 1.2840.114 350.1.13.10 4.2.7.2.686 [id number] [facility] 2021-12-18 00:00:00 2021-12-18 00:00:00 [facility] OFF[facility] BUILDING 1.2840.114 350.1.13.10 4.2.7.2.686 [id number] 044 [id number] [facility] 2021-12-17 09:30:00 2021-12-17 09:30:00 Outpatient R CHANDAN SHEEHAN YU [facility] [id number] [facility] 2021-12-10 11:30:00 2021-12-10 12:18:32 Outpatient R BRUNA BRANDTNEY [facility] [id number] [facility] 2021-12-10 11:30:00 2021-12-10 12:18:32 [facility] 1.284.114 350.1.13.10 4.2.7.2.686 [id number] [facility] 2021-09-27 00:00:00 2021-09-27 00:00:00 Micha Dawson [facility] REAL[facility] MED[facility] BUILDING 1.284.114 350.1.13.10 4.2.7.2.686 [id number] 044 [id number] [facility] 2021-09-08 00:00:00 2021-09-08 00:00:00 Letter (Out) Samir [facility] REAL?SAMEERErum [facility] MEDICAL OFFICE BUILDING 1.284.114 350.1.13.10 4.2.7.2.686 [id number] 044 [id number] [facility] 2021-08-25 00:00:00 2021-08-25 00:00:00 Telephone [facility] BUILD[facility] 1.2.114 350.1.13.10 4.2.7.2.686 [id number] 044 [id number] [facility] 2021-08-25 00:00:00 2021-08-25 00:00:00 Letter (Out) [facility] MEDICAL OFFICE BUILDING 1.20.114 350.1.13.10 4.2.7.2.686 [id number] 044 [id number] [facility] 2021-08-25 00:00:00 2021-08-25 00:00:00 Letter (Out) [facility]ir [facility] MEDICAL OFFICE BUILDING 1.0.114 350.1.13.10 4.2.7.2.686 [id number] 044 [id number] [facility] 2021-08-22 00:00:00 2021-08-22 00:00:00 Telephone Yukojose Rita [facility] REAL?[facility] MEDICAL OFFICE BUILDING 1.2.114 350.1.13.10 4.2.7.2.686 [id number] 044 [id number] [facility] 2021-08-22 00:00:00 2021-08-22 00:00:00 Orders Only Doctor Unassigned, [place] [facility] 1.20.114 350.1.13.10 4.2.7.2.686 [id number] [id number] [facility] 2021-08-20 00:00:00 2021-08-20 00:00:00 Refill Samir [facility] REAL?[facility] MEDICAL OFFICE BUILDING 1..114 350.1.13.10 4.2.7.2.686 [id number] 044 [id number] [facility] 2021-08-20 00:00:00 2021-08-20 00:00:00 [facility] MEDICAL OFFICE BUILDING 1.2.840.114 350.1.13.10 4.2.7.2.686 [id number] 044 [id number] [facility] 2021-08-20 00:00:00 2021-08-20 00:00:00 Refill ChristoferAlan [facility] PROFESSIO NAL BUILDING 1..840.114 350.1.13.10 4.2.7.2.686 [id number] 059 [id number] [facility] 2021-08-14 10:45:00 2021-08-14 10:45:00 Outpatient SKINNY TORRES [facility] [id number] [facility] 2021-07-17 00:00:00 2021-07-17 00:00:00 [facility] MED[facility] OFF[facility] BUILDING 1..840.114 350.1.13.10 4.2.7.2.686 [id number] 044 [id number] [facility] 2021-07-15 00:00:00 2021-07-15 00:00:00 Refill [facility] MEDICAL OFFICE BUILDING 1..840.114 350.1.13.10 4.2.7.2.686 [id number] 044 [id number] [facility] 2021-07-10 00:00:00 2021-07-10 00:00:00 Telephone Susan Cueto [facility] 1.2.840.114 350.1.13.10 4.2.7.2.686 [id number] [facility] 2021-07-09 13:30:00 2021-07-09 13:30:00 Outpatient SUSAN MOSS, SUSAN [facility] [id number] [facility] 2021-07-07 00:00:00 2021-07-07 00:00:00 Refill [facility] BUILD[facility] 1.2840.114 350.1.13.10 4.2.7.2.686 [id number] 044 [id number] [facility] 2021-07-05 00:00:00 2021-07-05 00:00:00 Orders Only Doctor Unassigned, [place] [facility] 1.2840.114 350.1.13.10 4.2.7.2.686 [id number] [id number] [facility] 2021-07-04 00:00:00 2021-07-04 00:00:00 Telephone Dawson, Philip [facility] REAL?[facility] MEDICAL OFFICE BUILDING 1.2840.114 350.1.13.10 4.2.7.2.686 [id number] 044 [id number] [facility] 2021-07-03 00:00:00 2021-07-03 00:00:00 [facility] MEDICAL OFFICE BUILDING 1.2840.114 350.1.13.10 4.2.7.2.686 [id number] 044 [id number] [facility] 2021-07-01 00:00:00 2021-07-01 00:00:00 Telephone [facility] MEDICAL OFF[facility] BUILDING 1.2840.114 350.1.13.10 4.2.7.2.686 [id number] 044 [id number] [facility] 2021-06-30 00:00:00 2021-06-30 00:00:00 [facility]ill [facility] MEDICAL OFFICE BUILDING 1.2840.114 350.1.13.10 4.2.7.2.686 [id number] 044 [id number] [facility] 2021-06-27 00:00:00 2021-06-27 00:00:00 Telephone Philip Dawson [facility] MEDICAL OFFICE BUILDING 1.2840.114 350.1.13.10 4.2.7.2.686 [id number] 044 [id number] [facility] 2021-06-26 13:00:00 2021-06-26 13:30:00 Office Visit Philip Dawson [facility] MEDICAL OFFICE BUILDING 1.84.114 350.1.13.10 4.2.7.2.686 [id number] 044 [id number] [facility] 2021-06-26 13:00:00 2021-06-26 13:00:00 Outpatient R PHILIP DAWSON [facility] [id number] [facility] 2021-06-26 13:00:00 2021-06-26 13:00:00 Outpatient R PHILIP DAWSON [facility] [id number] [facility] 2021-06-26 00:00:00 2021-06-26 00:00:00 Orders Only Doctor Unassigned, [place] [facility] 1.840.114 350.1.13.10 4.2.7.2.686 [id number] [id number] [facility] 2021-06-16 13:30:00 2021-06-16 14:27:56 Outpatient R CYRUS PABLO [facility] [id number] [facility] 2021-06-16 13:30:00 2021-06-16 14:00:00 Office Visit Bev [facility] MEDICAL OFFICE BUILDING 1.284.114 350.1.13.10 4.2.7.2.686 [id number] [facility] 2021-06-16 13:30:00 2021-06-16 13:30:00 Outpatient R CYRUS PABLO [facility] [id number] [facility] 2021-06-16 13:30:00 2021-06-16 13:30:00 Outpatient R CYRUS PABLO [facility] [id number] [facility] 2021-06-16 00:00:00 2021-06-16 00:00:00 Telephone Rita Patiño [facility] 1.2.840.114 350.1.13.10 4.2.7.2.686 [id number] 044 [id number] [facility] 2021-06-16 00:00:00 2021-06-16 00:00:00 Telephone [facility] MEDICAL OFFICE BUILDING 1.2.840.114 350.1.13.10 4.2.7.2.686 [id number] 044 [id number] [facility] 2021-06-16 00:00:00 2021-06-16 00:00:00 Patient Secure Msg DawsonPhilip [facility] MEDICAL OFFICE BUILDING 1.2.840.114 350.1.13.10 4.2.7.2.686 [id number] 044 [id number] [facility] 2021-06-16 00:00:00 2021-06-16 00:00:00 Patient Secure Msg Doctor Unassigned, [place] [facility] MEDICAL OFFICE BUILDING 1.2.840.114 350.1.13.10 4.2.7.2.686 [id number] 044 [id number] [facility] 2021-06-11 10:00:00 2021-06-11 10:45:21 Outpatient R BRIANNA BRAND [facility] [id number] [facility] 2021-06-11 10:00:00 2021-06-11 10:45:21 Office Visit Brianna Brand [facility] NAL BUILDING 1.2.840.114 350.1.13.10 4.2.7.2.686 [id number] [facility] 2021-06-08 00:00:00 2021-06-08 00:00:00 Refill Cyrus Pablo [facility] MEDICAL OFFICE BUILDING 1.2.840.114 350.1.13.10 4.2.7.2.686 [id number] 220 [id number] [facility] 2021-05-26 00:00:00 2021-05-26 00:00:00 Refill Rita Patiño [facility] MEDICAL OFFICE BUILDING 1.2.840.114 350.1.13.10 4.2.7.2.686 [id number] 044 [id number] [facility] 2021-05-21 00:00:00 2021-05-21 00:00:00 [facility] 1.2.840.114 350.1.13.10 4.2.7.2.686 [id number] [id number] [facility] 2021-05-20 00:00:00 2021-05-20 00:00:00 Patient Secure Msg [facility] 1.2.840.114 350.1.13.10 4.2.7.2.686 [id number] 059 [id number] [facility] 2021-05-19 11:00:00 2021-05-19 11:00:00 Outpatient R ALAN BEAULIEU [facility] [id number] [facility] 2021-05-19 09:42:00 2021-05-19 09:42:00 Outpatient R ALAN BEAULIEU [facility] [id number] [facility] 2021-05-13 00:00:00 2021-05-13 00:00:00 Orders Only Doctor Unassigned, [place] [facility] 1.2.840.114 350.1.13.10 4.2.7.2.686 [id number] [id number] [facility] 2021-05-09 10:40:00 2021-05-09 11:09:07 Outpatient R CHRISTOFER [facility] [id number] [facility] 2021-05-09 10:40:00 2021-05-09 11:09:07 Office Visit Christofer [facility] 1..840.114 350.1.13.10 4.2.7.2.686 [id number] [facility] 2021-05-01 00:00:00 2021-05-01 00:00:00 Orders Only Doctor Unassigned, [place] [facility] 1.2840.114 350.1.13.10 4.2.7.2.686 [id number] [id number] [facility] 2021-04-24 08:00:00 2021-04-24 08:00:00 Outpatient PHILIP ANDRADE [facility] [id number] [facility] 2021-04-18 00:00:00 2021-04-18 00:00:00 Orders Only Doctor Unassigned, [place] [facility] 1.2840.114 350.1.13.10 4.2.7.2.686 [id number] [id number] [facility] 2021-04-10 00:00:00 2021-04-10 00:00:00 Case Management Doar Mohan [facility] 1.2.840.114 350.1.13.10 4.2.7.2.686 [id number] [facility] 2021-03-30 00:00:00 2021-03-30 00:00:00 Refill Dawson, [facility] REAL?[facility] BUILDING 1.2.840.114 350.1.13.10 4.2.7.2.686 [id number] 044 [id number] [facility] 2021-03-23 00:00:00 2021-03-23 00:00:00 Refill Chacorta [facility] BUILDING 1.2.840.114 350.1.13.10 4.2.7.2.686 [id number] [facility] 2021-03-06 00:00:00 2021-03-06 00:00:00 Refill Philip Dawson [facility] REAL?[facility] MED[facility] OFF[facility] BUILDING 1.2.840.114 350.1.13.10 4.2.7.2.686 [id number] 044 [id number] [facility] 2021-02-28 00:00:00 2021-02-28 00:00:00 Refill Chacorta [facility] BUILDING 1.2.840.114 350.1.13.10 4.2.7.2.686 [id number] [facility] 2021-02-27 12:45:00 2021-02-27 13:07:08 Outpatient R PHILIP DAWSON [facility] [id number] [facility] 2021-02-27 12:45:00 2021-02-27 13:00:00 Office Visit Philip Dawson [facility] REAL?[facility] 1.2.840.114 350.1.13.10 4.2.7.2.686 [id number] 044 [id number] [facility] 2021-02-27 12:45:00 2021-02-27 12:45:00 Outpatient R PHILIP DAWSON [facility] [id number] [facility] 2021-02-24 09:45:00 2021-02-24 09:45:00 Outpatient R DAWSON, PHILIP [facility] [id number] [facility] 2021-02-20 00:00:00 2021-02-20 00:00:00 Telephone Michael Casillas [facility] REAL?[facility] BUILDING 1.2.840.114 350.1.13.10 4.2.7.2.686 [id number] [id number] [facility] 2021-02-17 10:40:49 2021-02-17 23:59:00 Outpatient Antonia SONJA, MICHAEL CASILLAS MICHAEL [facility] [id number] [facility] 2021-02-17 10:40:49 2021-02-17 23:59:00 [facility] Encounter Michael Casillas [facility] 1.2.840.114 350.1.13.10 4.2.7.2.686 [id number] [facility] 2021-02-10 00:00:00 2021-02-10 00:00:00 Refgriselda Dawson [facility] REAL?[facility] MEDICAL OFFICE BUILDING 1.2.840.114 350.1.13.10 4.2.7.2.686 [id number] 044 [id number] [facility] 2021-01-28 10:00:00 2021-01-28 10:47:59 Office Visit [facility] MEDICAL OFF[facility] BUILDING 1.2.840.114 350.1.13.10 4.2.7.2.686 [id number] [facility] 2021-01-28 10:00:00 2021-01-28 10:47:59 Outpatient Antonia MICHAEL CASILLAS HOWARD [facility] [id number] [facility] 2021-01-28 10:00:00 2021-01-28 10:00:00 Outpatient MICHAEL LAM [facility] [id number] [facility] 2021-01-28 00:00:00 2021-01-28 00:00:00 Orders Only Doctor Unassigned, [place] [facility] 1.2.840.114 350.1.13.10 4.2.7.2.686 [id number] [id number] [facility] 2021-01-23 00:00:00 2021-01-23 00:00:00 Telephone [facility]ora Moh[facility] 1.2.840.114 350.1.13.10 4.2.7.2.686 [id number] [facility] 2021-01-21 00:00:00 2021-01-21 00:00:00 Telephone Cyrus Pablo [facility] MEDICAL OFFICE BUILDING 1.2.840.114 350.1.13.10 4.2.7.2.686 [id number] [facility] 2021-01-17 00:00:00 2021-01-17 00:00:00 Refill Samir Philip [facility] MEDICAL OFFICE BUILDING 1.2.840.114 350.1.13.10 4.2.7.2.686 [id number] 044 [id number] [facility] 2021-01-13 09:54:13 2021-01-13 10:09:13 Office Visit Philip Dawson [facility] MEDICAL OFFICE BUILDING 1.2.840.114 350.1.13.10 4.2.7.2.686 [id number] 044 [id number] [facility] 2021-01-13 09:45:00 2021-01-13 09:45:00 Outpatient PHILIP ANDRADE [facility] [id number] [facility] 2021-01-13 09:45:00 2021-01-13 09:45:00 Outpatient PHILIP ANDRADE [facility] [id number] [facility] 2021-01-02 00:00:00 2021-01-02 00:00:00 Telephone Philip Dawson [facility] REAL?[facility] BUILDING 1.2.840.114 350.1.13.10 4.2.7.2.686 [id number] [facility] 2020-12-30 15:30:00 2020-12-30 15:36:48 Outpatient R KIMBERLEE DORA [facility] [id number] [facility] 2020-12-30 15:30:00 2020-12-30 15:36:48 Outpatient R KIMBERLEE DORA [facility] [id number] [facility] 2020-12-30 15:00:54 2020-12-30 15:36:48 Office Visit Dora Mohan [facility] NAL BUILDING 1..840.114 350.1.13.10 4.2.7.2.686 [id number] [facility] 2020-12-30 15:30:00 2020-12-30 15:30:00 Outpatient R KIMBERLEE DORA [facility] [id number] [facility] 2020-12-25 10:00:00 2020-12-25 10:58:06 Outpatient R DAWSON, PHILIP [facility] [id number] [facility] 2020-12-25 10:16:30 2020-12-25 10:31:30 Office Visit Philip Dawson [facility] REAL?[facility] BUILDING 1.2.840.114 350.1.13.10 4.2.7.2.686 [id number] 044 [id number] [facility] 2020-12-25 10:00:00 2020-12-25 10:00:00 Outpatient R DAWSON, PHILIP [facility] [id number] [facility] 2020-12-25 00:00:00 2020-12-25 00:00:00 Orders Only Doctor Unassigned, [place] [facility] 1.84.114 350.1.13.10 4.2.7.2.686 [id number] [id number] [facility] 2020-12-18 10:30:00 2020-12-18 10:30:00 Outpatient R DORA MOHAN [facility] [id number] [facility] 2020-12-16 14:08:52 2020-12-16 14:38:52 Office Visit Bev [facility] BUILDING 1.840.114 350.1.13.10 4.2.7.2.686 [id number] [facility] 2020-12-16 14:30:00 2020-12-16 14:30:[address] [facility] [id number] [facility] 2020-12-16 14:30:00 2020-12-16 14:30:[address] [facility] [id number] [facility] 2020-11-19 00:00:00 2020-11-19 00:00:[address] [facility] Professio nal Building 1.840.114 350.1.13.10 4.2.7.2.686 [id number] 220 [id number] [facility] 2020-11-14 00:00:00 2020-11-14 00:00:00 Transition of Care Jaylin Ivey 1.840.114 350.1.13.10 4.2.7.2.686 [id number] [facility] 2020-11-12 17:49:00 2020-11-13 17:20:00 Emergency Kellie Evans [place], Jelani [facility] 1.2.840.114 350.1.13.10 4.2.7.2.686 [id number] 080 [id number] [facility] 2020-11-13 00:00:00 2020-11-13 00:00:00 [facility] 1.2.840.114 350.1.13.10 4.2.7.2.686 [id number] 059 [id number] [facility] 2020-11-12 00:00:00 2020-11-12 00:00:00 Telephone [facility]abel [facility] Building 1.2.840.114 350.1.13.10 4.2.7.2.686 [id number] 220 [id number] [facility] 2020-08-19 00:00:00 2020-08-19 00:00:00 [facility] 1.2.840.114 350.1.13.10 4.2.7.2.686 [id number] 059 [id number] [facility] 2020-08-19 00:00:00 2020-08-19 00:00:00 Orders Only Doctor Unassigned, [place] [facility] 1.2.840.114 350.1.13.10 4.2.7.2.686 [id number] 009 [id number] [facility] 2020-08-07 09:32:57 2020-08-07 10:27:50 [facility] 1.2.840.114 350.1.13.10 4.2.7.2.686 [id number] [facility] 2020-08-07 09:40:00 2020-08-07 09:40:00 [facility] [id number] 2020-06-26 10:40:00 2020-06-26 10:40:00 Outpatient R ALAN BEAULIEU [facility] [id number] [facility] 2020-06-12 10:20:19 2020-06-12 10:45:04 Office Visit Dora Mohan [facility] Building 1.2.840.114 350.1.13.10 4.2.7.2.686 [id number] [facility] 2020-06-12 10:30:00 2020-06-12 10:30:00 Outpatient R DORA MOHAN [facility] [id number] [facility] 2020-05-27 00:00:00 2020-05-27 00:00:00 Philip Pleitez [facility] Office Building One 1.2.840.114 350.1.13.10 4.2.7.2.686 [id number] 044 [id number] [facility] 2020-05-17 00:00:00 2020-05-17 00:00:00 Patient Secure Msg Bev [facility] Building 1.2.840.114 350.1.13.10 4.2.7.2.686 [id number] 220 [id number] [facility] 2020-05-13 14:16:02 2020-05-13 14:31:02 Registered Nurse Practitioner Visit 2, Adc Lab Bev [facility] Building 1.2.840.114 350.1.13.10 4.2.7.2.686 [id number] [facility] 2020-05-13 13:18:45 2020-05-13 14:11:09 Office Visit Bev [facility] Building 1.2.840.114 350.1.13.10 4.2.7.2.686 [id number] [facility] 2020-05-13 13:30:00 2020-05-13 13:30:00 Outpatient R CYRUS PABLO [facility] [id number] [facility] 2020-04-24 00:00:00 2020-04-24 00:00:00 Orders Only Doctor Unassigned, [place] [facility] 1.0.114 350.1.13.10 4.2.7.2.686 [id number] [id number] [facility] 2020-04-22 12:39:04 2020-04-22 13:56:26 Office Visit Dora Mohan [facility] Building 1..114 350.1.13.10 4.2.7.2.686 [id number] [facility] 2020-04-22 13:00:00 2020-04-22 13:00:00 Outpatient R DORA MOHAN [facility] [id number] [facility] 2020-04-10 00:00:00 2020-04-10 00:00:00 Philip Pleitez [facility] Office Building One 1..114 350.1.13.10 4.2.7.2.686 [id number] [id number] [facility] 2020-04-10 00:00:00 2020-04-10 00:00:00 Orders Only Doctor Unassigned, [place] [facility] 1..114 350.1.13.10 4.2.7.2.686 [id number] [id number] [facility] 2020-04-08 00:00:00 2020-04-08 00:00:00 Telephone Alan Beaulieu [facility] Building 1.840.114 350.1.13.10 4.2.7.2.686 [id number] 059 [id number] [facility] 2020-04-08 00:00:00 2020-04-08 00:00:00 Telephone Christofer [facility] Building 1.2.840.114 350.1.13.10 4.2.7.2.686 [id number] [facility] 2020-04-01 09:30:00 2020-04-01 09:30:00 Outpatient R SKINNY WHATLEY [facility] [id number] [facility] 2020-03-27 13:05:40 2020-03-27 13:48:46 Office Visit Christofer [facility] Building 1.2.840.114 350.1.13.10 4.2.7.2.686 [id number] [facility] 2020-03-27 13:20:00 2020-03-27 13:20:00 Outpatient R CHRISOTFER [facility] [id number] [facility] 2020-03-19 09:40:00 2020-03-19 09:40:00 Outpatient R CHRISTOFER [facility] [id number] [facility] 2020-03-16 00:00:00 2020-03-16 00:00:00 Philip Pleitez [facility] Office Building One 1.2.840.114 350.1.13.10 4.2.7.2.686 [id number] [facility] 2020-02-28 00:00:00 2020-02-28 00:00:00 Telephone Dora Mohan [facility] 1.2.840.114 350.1.13.10 4.2.7.2.686 [id number] [facility] 2020-02-26 13:30:00 2020-02-26 13:30:00 Outpatient R CYRUS PABLO [facility] [id number] [facility] 2020-02-23 00:00:00 2020-02-23 00:00:00 Patient Outreach StephanSerjios Zechariah [facility] 1.84.114 350.1.13.10 4.2.7.2.686 [id number] [facility] 2020-02-22 14:35:25 2020-02-22 16:11:21 Office Visit Haroon Rita [facility] Office [facility] 1.84.114 350.1.13.10 4.2.7.2.686 [id number] [facility] 2020-02-22 15:00:00 2020-02-22 15:00:00 [facility] [id number] 2020-02-21 00:00:00 2020-02-21 00:00:00 Refill Skinny Whatley [facility] Building 1.840.114 350.1.13.10 4.2.7.2.686 [id number] [facility] 2020-02-20 00:00:00 2020-02-20 00:00:00 Refill Philip Dawson [facility] Office [facility] 1.840.114 350.1.13.10 4.2.7.2.686 [id number] [facility] 2020-02-15 00:00:00 2020-02-15 00:00:00 Patient Secure Msg Doctor Unassigned, [place] [facility] 1.840.114 350.1.13.10 4.2.7.2.686 [id number] [facility] 2020-02-14 14:28:03 2020-02-14 14:43:03 Registered Nurse Practitioner Visit 2, Adc Lab Alan Beaulieu [facility] 1.114 350.1.13.10 4.2.7.2.686 [id number] [facility] 2020-02-14 13:38:40 2020-02-14 13:58:40 [facility].114 350.1.13.10 4.2.7.2.686 [id number] 059 [id number] [facility] 2020-02-14 13:40:00 2020-02-14 13:40:00 Outpatient R CHRISTOFER [facility] [id number] [facility] 2020-02-14 00:00:00 2020-02-14 00:00:00 Orders Only Doctor Unassigned, [place] [facility] 1.114 350.1.13.10 4.2.7.2.686 [id number] [id number] [facility] 2020-02-07 00:00:00 2020-02-07 00:00:00 [facility] 1.114 350.1.13.10 4.2.7.2.686 [id number] [id number] [facility] 2020-02-01 00:00:00 2020-02-01 00:00:00 [facility] 1.114 350.1.13.10 4.2.7.2.686 [id number] [id number] [facility] 2020-01-30 13:20:00 2020-01-30 13:20:00 [facility] [id number] [facility] 2020-01-24 00:00:00 2020-01-24 00:00:00 Refill Rita Patiño [facility] Office Building One 1.2.840.114 350.1.13.10 4.2.7.2.686 [id number] [facility] 2020-01-17 00:00:00 2020-01-17 00:00:00 Orders Only Doctor Unassigned, [place] [facility] 1.2.840.114 350.1.13.10 4.2.7.2.686 [id number] [id number] [facility] 2020-01-09 00:00:00 2020-01-09 00:00:00 [facility] 1.2840.114 350.1.13.10 4.2.7.2.686 [id number] [id number] [facility] 2020-01-08 14:35:37 2020-01-08 15:22:08 Office Visit Dora Mohan [facility] Building 1.2840.114 350.1.13.10 4.2.7.2.686 [id number] [facility] 2020-01-08 13:22:21 2020-01-08 14:29:18 [facility] 1.2840.114 350.1.13.10 4.2.7.2.686 [id number] [id number] [facility] 2020-01-08 13:40:00 2020-01-08 13:40:00 [facility] [id number] [facility] 2020-01-08 00:00:00 2020-01-08 00:00:00 Orders Only Doctor Unassigned, [place] [facility] 1.2840.114 350.1.13.10 4.2.7.2.686 [id number] [id number] [facility] 2019-12-29 00:00:00 2019-12-29 00:00:00 Refill Rita Patiño [facility] Office Building One 1.2.840.114 350.1.13.10 4.2.7.2.686 [id number] 044 [id number] [facility] 2019-12-19 00:00:00 2019-12-19 00:00:00 Telephone Alan Beaulieu [facility] Medical Office Building 1.2.840.114 350.1.13.10 4.2.7.2.686 [id number] 059 [id number] [facility] 2019-12-15 09:40:58 2019-12-15 11:16:28 Registered Nurse Practitioner Visit Pc, [facility] Vascular Room 1 - Demian TheodoreGraciaHay [facility] Building 1.2.840.114 350.1.13.10 4.2.7.2.686 [id number] 059 [id number] [facility] 2019-12-15 09:42:09 2019-12-15 10:42:09 Appointmen t , [facility] Vascular Room 1 - TheodoreDemian trevizo [facility] Building 1.2.840.114 350.1.13.10 4.2.7.2.686 [id number] [id number] [facility] 2019-12-15 08:53:31 2019-12-15 09:53:31 Laboratory Only , [facility] Echo [facility] Building 1.2.840.114 350.1.13.10 4.2.7.2.686 [id number] [id number] [facility] 2019-12-15 09:00:00 2019-12-15 09:00:00 Outpatient R [facility] [id number] [facility] 2019-12-07 00:00:00 2019-12-07 00:00:00 Orders Only Doctor Unassigned, [place] [facility] 1.2.840.114 350.1.13.10 4.2.7.2.686 [id number] [id number] [facility] 2019-12-07 00:00:00 2019-12-07 00:00:00 Patient Secure Msg Christofer [facility] BUILDING 1.2840.114 350.1.13.10 4.2.7.2.686 [id number] 059 [id number] [facility] 2019-12-06 15:04:38 2019-12-06 15:19:38 Registered Nurse Practitioner Visit 2, Adc Lab Christofer [facility] Building 1.20.114 350.1.13.10 4.2.7.2.686 [id number] [facility] 2019-12-06 13:55:15 2019-12-06 14:56:18 Office Visit Christofer [facility] Building 1.2840.114 350.1.13.10 4.2.7.2.686 [id number] [id number] [facility] 2019-12-06 13:40:00 2019-12-06 13:40:00 [facility] [id number] [facility] 2019-12-04 09:57:56 2019-12-04 10:47:23 Office Visit Fredisdonnie [facility] Building 1.284.114 350.1.13.10 4.2.7.2.686 [id number] [facility] 2019-12-04 10:00:00 2019-12-04 10:00:00 [facility] [id number] [facility] 2019-12-04 00:00:00 2019-12-04 00:00:00 Rita Ross [facility] Office Building One 1.284.114 350.1.13.10 4.2.7.2.686 [id number] 044 [id number] [facility] 2019-11-15 00:00:00 2019-11-15 00:00:00 [facility] 1.2840.114 350.1.13.10 4.2.7.2.686 [id number] 044 [id number] [facility] 2019-11-09 12:49:44 2019-11-10 09:31:32 [facility] One 1.2840.114 350.1.13.10 4.2.7.2.686 [id number] 044 [id number] [facility] 2019-11-10 00:00:00 2019-11-10 00:00:00 Refill Haroon [facility] Office Building One 1.2840.114 350.1.13.10 4.2.7.2.686 [id number] 044 [id number] [facility] 2019-11-09 17:57:00 2019-11-09 23:23:00 Emergency Gorge Rosado [facility] 1.2.840.114 350.1.13.10 4.2.7.2.686 [id number] 084 [id number] [facility] 2019-11-09 17:57:00 2019-11-09 23:23:00 Emergency X [facility] [id number] [facility] 2019-11-09 14:14:20 2019-11-09 14:24:20 Registered Nurse Practitioner Visit Lab, Adc Fam Pob I Haroon [facility] Office Building One 1.2.114 350.1.13.10 4.2.7.2.686 [id number] [id number] [facility] 2019-11-09 13:00:00 2019-11-09 13:00:00 Outpatient [facility] [id number] [facility] 2019-10-31 16:00:27 2019-10-31 16:20:27 Urgent Care Provider, [facility] Office Building One 1.2.840.114 350.1.13.10 4.2.7.2.686 [id number] 044 [id number] [facility] 2019-10-31 15:40:00 2019-10-31 15:40:00 Outpatient R RITA PATIÑO [facility] [id number] [facility] 2019-10-31 00:00:00 2019-10-31 00:00:00 Orders Only Doctor Unassigned, [place] [facility] 1.2.840.114 350.1.13.10 4.2.7.2.686 [id number] [id number] [facility] 2019-10-21 00:00:00 2019-10-21 00:00:00 Orders Only Doctor Unassigned, [place] [facility] 1.2.840.114 350.1.13.10 4.2.7.2.686 [id number] [id number] [facility] Results Test Description Test Time Test Comments Results Result Co mments Source [facility] Urinalysis, [id number] 16:42:00 * Test Item Value Reference Range Interpretation Comme nts POCT U SP GRAV (test code = 3255) 1.025 mg/dl 1.005-1.025 POCT PH U (test code = 3254) 5.5 mg/dl 5-8 POCT U LEUK EST (test code = 3263) neg Negative - Negative POCT U NIT (test code = 3262) neg Negative - Negati ve POCT U PROT (test code = 3259) neg Negative - Negative POCT U GLU (test code = 3256) neg Negative - Negati ve POCT U KETONE (test code = 3258) neg Negative - Negative POCT U UROBILI (test code = 3260) 0.2 mg/dl 0.2-1 POCT U BILI (test code = 3261) neg Negative - Negative POCT U BLD (test code = 3257) neg Negative - Negati ve POCT U COLOR (test code = 3266) yellow POCT U APPEAR (test code = 3267) clear [facility] CampusMEAS,POST-VOID RES,US,[id number] 00:00:00* Test Item Value Reference Range Interpretation Comme nts PVR (URINE VOLUME) (test code = 5193) 64 ml 0-100 [facility]MEAS,POST-VOID RES,US,[id number] 00:00:00* Test Item Value Reference Range Interpretation Comme nts PVR (URINE VOLUME) (test code = 5193) 64 ml 0-100 [facility] CampusXR SHOULDER 2+ VW [id number] 03:48:40 Shoulder series: ?04/18/2023 9:00 PM HISTORY: shoulder pain no trauma. COMPARISON: None. FINDINGS: 2 views of the right shoulder are received for interpretation. There is no fracture or dislocation. There are no radiopaque foreignbodies. There is degenerative joint space narrowing of the right shoulder.There is no fracture in the adjacent scapula, clavicle, or ribs.[facility] CampusN-Terminal [id number] 22:57:41* Test Item Value Reference Range Interpretation Comme nts NT-proBNP (test code = 01814-0) 785 pg/mL <=125 JOSEPHINE (test code = JOSEPHINE) Result Indeterminate-Consid er causes of NT-proBNP elevation other than Heart failure such as acute coronary syndrome, pulmonary embolism, pulmonary hypertension, sepsis, stroke, and renal dysfunction. Lab Interpretation (test code = 52033-9) Abnormal [facility] CampusBasi Metabolic Panel (NA, K, CL, CO2, GLUCOSE, BUN, CREATININE, CA)2023-02-01 22:50:24* Test Item Value Reference Range Interpretation Comme nts NA (test code = 8393482741) 138 mmol/L 135-145 K (test code = 3888463281) 4.8 mmol/L 3.5-5.0 CL (test code = 2204183497) 100 mmol/L 98-108 CO2 TOTAL (test code = 4542737098) 25 mmol/L 23-31 AGAP (test code = 0593899043) 13 2-16 BUN (test code = 4622643107) 30 mg/dL 7-23 H GLUCOSE (test code = 4994963140) 313 mg/dL 70-110 H CREATININE (test code = 8534310444) 1.10 mg/dL 0.60-1.25 CALCIUM (test code = 7041787340) 9.5 mg/dL 8.6-10.6 eGFR (test code = 40361-7) 65.8 mL/min/1.73m2 CKD-EPI eGFR (2020). Assuming creatinine has been stable day-to-day for at least three months, the eGFR indicates Category G2 (60 - 89 mL/min/1.73 m2) Lab Interpretation (test code = 02533-6) Abnormal [facility] URINALYSIS, [id number] 14:00:00 * Test Item Value Reference Range Interpretation Comme nts POCT U SP GRAV (test code = 3255) 1.020 mg/dl 1.005-1.025 POCT PH U (test code = 3254) 5.5 mg/dl 5-8 POCT U LEUK EST (test code = 3263) negative Negative - Negative POCT U NIT (test code = 3262) negative Negative - Negati ve POCT U PROT (test code = 3259) trace Negative - Negative POCT U GLU (test code = 3256) negative Negative - Negati ve POCT U KETONE (test code = 3258) negative Negative - Negative POCT U UROBILI (test code = 3260) 0.2 mg/dl 0.2-1 POCT U BILI (test code = 3261) negative Negative - Negative POCT U BLD (test code = 3257) negative Negative - Negati ve POCT U COLOR (test code = 3266) yellow POCT U APPEAR (test code = 3267) clear [facility] URINALYSIS, [id number] 14:00:00 * Test Item Value Reference Range Interpretation Comme nts POCT U SP GRAV (test code = 3255) 1.020 mg/dl 1.005-1.025 POCT PH U (test code = 3254) 5.5 mg/dl 5-8 POCT U LEUK EST (test code = 3263) negative Negative - Negative POCT U NIT (test code = 3262) negative Negative - Negati ve POCT U PROT (test code = 3259) trace Negative - Negative POCT U GLU (test code = 3256) negative Negative - Negati ve POCT U KETONE (test code = 3258) negative Negative - Negative POCT U UROBILI (test code = 3260) 0.2 mg/dl 0.2-1 POCT U BILI (test code = 3261) negative Negative - Negative POCT U BLD (test code = 3257) negative Negative - Negati ve POCT U COLOR (test code = 3266) yellow POCT U APPEAR (test code = 3267) clear [facility] CampusPOCT URINALYSIS, [id number] 14:00:00 * Test Item Value Reference Range Interpretation Comme nts POCT U SP GRAV (test code = 3255) 1.020 mg/dl 1.005-1.025 POCT PH U (test code = 3254) 5.5 mg/dl 5-8 POCT U LEUK EST (test code = 3263) negative Negative - Negative POCT U NIT (test code = 3262) negative Negative - Negati ve POCT U PROT (test code = 3259) trace Negative - Negative POCT U GLU (test code = 3256) negative Negative - Negati ve POCT U KETONE (test code = 3258) negative Negative - Negative POCT U UROBILI (test code = 3260) 0.2 mg/dl 0.2-1 POCT U BILI (test code = 3261) negative Negative - Negative POCT U BLD (test code = 3257) negative Negative - Negati ve POCT U COLOR (test code = 3266) yellow POCT U APPEAR (test code = 3267) clear [facility] CampusGLYCOSYLATED HEMOGLOBIN (A1C)2022-09-01 18:37:55* Test Item Value Reference Range Interpretation Comme nts HGB A1C (test code = 4548-4) 7.3 % 4.0-5.7 H JOSEPHINE (test code = JOSEPHINE) Reference RangesNormal: <5.7%Prediabetes: 5.7 - 6.4%Diabetes: > 6.5% Lab Interpretation (test code = 73326-9) Abnormal [facility] CampusBASI METABOLIC PANEL (NA, K, CL, CO2, GLUCOSE, BUN, CREATININE, CA)2022-06-11 18:56:43* Test Item Value Reference Range Interpretation Comme nts NA (test code = 4939925483) 138 mmol/L 135-145 K (test code = 6529254955) 4.2 mmol/L 3.5-5.0 CL (test code = 5668346723) 100 mmol/L 98-108 CO2 TOTAL (test code = 6115714495) 34 mmol/L 23-31 H AGAP (test code = 5177282063) 4 2-16 BUN (test code = 3246345395) 31 mg/dL 7-23 H GLUCOSE (test code = 7080773372) 226 mg/dL 70-110 H CREATININE (test code = 0604784062) 1.27 mg/dL 0.60-1.25 H CALCIUM (test code = 6752854918) 9.2 mg/dL 8.6-10.6 eGFR (test code = 7354002554) 54.0 mL/min/1.73m2 JOSEPHINE (test code = JOSEPHINE) [...] imaging tests). Lab Interpretation (test code = 60953-0) Abnormal [facility] METABOLIC PANEL (NA, K, CL, CO2, GLUCOSE, BUN, CREATININE, CA)2022-06-11 18:56:43* Test Item Value Reference Range Interpretation Comme nts NA (test code = 0801279044) 138 mmol/L 135-145 K (test code = 9585909722) 4.2 mmol/L 3.5-5.0 CL (test code = 1823948733) 100 mmol/L 98-108 CO2 TOTAL (test code = 1655062088) 34 mmol/L 23-31 H AGAP (test code = 4023259290) 4 2-16 BUN (test code = 8929719954) 31 mg/dL 7-23 H GLUCOSE (test code = 6793271235) 226 mg/dL 70-110 H CREATININE (test code = 1711884576) 1.27 mg/dL 0.60-1.25 H CALCIUM (test code = 6571389949) 9.2 mg/dL 8.6-10.6 eGFR (test code = 5711692246) 54.0 mL/min/1.73m2 JOSEPHINE (test code = JOSEPHINE) [...] imaging tests). Lab Interpretation (test code = 15407-7) Abnormal [facility] CampusTHYROID STIMULATING [id number] 20:40:05 * Test Item Value Reference Range Interpretation Comme nts TSH (test code = 6101796355) 3.26 See_Comment [Automated [employer]] The system which generated this result transmitted reference range: 0.45 - 4.70 mIU/L. The reference range was not used to interpret this result as normal/abnormal. Lab Interpretation (test code = 08105-3) Normal [facility] CampusFR [id number] 20:26:25* Test Item Value Reference Range Interpretation Comme nts FREE T4 (test code = 2158488241) 1.24 See_Comment [Automated [employer] [facility]] The system which generated this result transmitted reference range: 0.78 - 2.20 ng/dL:. The reference range was not used to interpret this result as normal/abnormal. Lab Interpretation (test code = 58452-9) Normal [facility] CampusN-TERMINAL [id number] 20:18:39* Test Item Value Reference Range Interpretation Comme nts NT-proBNP (test code = 3298535805) 785 pg/mL <=450 H JOSEPHINE (test code = JOSEPHINE) Biotin has been reported to cause a negative bias, interpret results relative to patient's use of biotin. Lab Interpretation (test code = 74120-4) Abnormal [facility] CampusCOM. METABOLIC PANEL (20639)2022-06-05 20:16:21* Test Item Value Reference Range Interpretation Comme nts NA (test code = 0825123958) 142 mmol/L 135-145 K (test code = 9196375526) 4.5 mmol/L 3.5-5.0 CL (test code = 9655325338) 105 mmol/L 98-108 CO2 TOTAL (test code = 5623798121) 26 mmol/L 23-31 AGAP (test code = 8727553660) 11 2-16 BUN (test code = 7829726488) 22 mg/dL 7-23 GLUCOSE (test code = 9694317659) 155 mg/dL 70-110 H CREATININE (test code = 4933421903) 0.96 mg/dL 0.60-1.25 TOTAL BILI (test code = 4773976359) 0.5 mg/dL 0.1-1.1 CALCIUM (test code = 9697594500) 9.5 mg/dL 8.6-10.6 T PROTEIN (test code = 9137470092) 7.0 g/dL 6.3-8.2 ALBUMIN (test code = 5960511878) 4.0 g/dL 3.5-5.0 ALK PHOS (test code = 0616889589) 72 U/L 34-122 ALTv (test code = 1742-6) 26 U/L 5-50 AST(SGOT) (test code = 3357323258) 25 U/L 13-40 eGFR (test code = 6393691691) 74.6 mL/min/1.73m2 JOSEPHINE (test code = JOSEPHINE) Association [...] imaging tests). Lab Interpretation (test code = 96538-8) Abnormal [facility] CampusLIPID PANEL (49285)(TOTAL CHOLESTEROL, TRIGLYCERIDES, HDL)2022-06-05 20:11:42* Test Item Value Reference Range Interpretation Comme nts CHOL (test code = 7022894480) 177 mg/dL 120-200 HDL (test code = 3725965026) 38 mg/dL >=40 L HDLC RATIO (test code = 1477130347) 4.7 <=5.0 TRIG (test code = 5338305144) 174 mg/dL 30-170 H LDL CHOL (test code = 88986-6) 104 mg/dL <=160 VLDL (test code = 0766769396) 35 mg/dL 5-60 Lab Interpretation (test cod e = 01543-0) Abnormal [facility] CampusCBC WITH [id number] 19:38:34* Test Item Value Reference Range Interpretation Comme nts WBC (test code = 6690-2) 9.70 See_Comment [Automated [employer]] The system which generated this result transmitted reference range: 4.20 - 10.70 10*3/?L. The reference range was not used to interpret this result as normal/abnormal. RBC (test code = 789-8) 4.76 See_Comment [[employer]] The system which generated this result transmitted reference range: 4.26 - 5.52 10*6/?L. The reference range was not used to interpret this result as normal/abnormal. HGB (test code = 718-7) 14.3 g/dL 12.2-16.4 HCT (test code = 4544-3) 43.9 % 38.4-49.3 MCV (test code = 787-2) 92.2 fL 81.7-95.6 MCH (test code = 785-6) 30.0 pg 26.1-32.7 MCHC (test code = 786-4) 32.6 g/dL 31.2-35.0 RDW-SD (test code = 42024-4) 50.5 fL 38.5-51.6 RDW-CV (test code = 788-0) 14.8 % 12.1-15.4 PLT (test code = 777-3) 159 See_Comment [Automated messa ge] The system which generated this result transmitted reference range: 150 - 328 10*3/?L. The reference range was not used to interpret this result as normal/abnormal. MPV (test code = 38291-9) 11.9 fL 9.8-13.0 NRBC/100 WBC (test code = 5815390214) 0.0 See_Comment [Automated [employer]] The system which generated this result transmitted reference range: 0.0 - 10.0 /100 WBCs. The reference range was not used to interpret this result as normal/abnormal. NRBC x10^3 (test code = 7068188855) See_Comment [Automated [employer]] The system which generated this result transmitted reference range: 10*3/?L. The reference range was not used to interpret this result as normal/abnormal. GRAN MAT (NEUT) % (test code = 770-8) 53.0 % IMM GRAN % (test code = 3806761003) 0.30 % LYMPH % (test code = 736-9) 30.6 % MONO % (test code = 5905-5) 10.6 % EOS % (test code = 713-8) 4.7 % BASO % (test code = 706-2) 0.8 % GRAN MAT x10^3(ANC) (test code = 6206198256) 5.13 10*3/uL 1.99-6.95 IMM GRAN x10^3 (test code = 7822503226) 0.03 10*3/uL 0.00-0.06 LYMPH x10^3 (test code = 731-0) 2.97 10*3/uL 1.09-3.23 MONO x10^3 (test code = 742-7) 1.03 10*3/uL 0.36-1.02 H EOS x10^3 (test code = 711-2) 0.46 10*3/uL 0.06-0.53 BASO x10^3 (test code = 704-7) 0.08 10*3/uL 0.01-0.09 Lab Interpretation (test code = 39595-6) Abnormal [facility] WITH [id number] 19:38:34* Test Item Value Reference Range Interpretation Comme nts WBC (test code = 6690-2) 9.70 See_Comment [Automated messa ge] The system which generated this result transmitted reference range: 4.20 - 10.70 10*3/?L. The reference range was not used to interpret this result as normal/abnormal. RBC (test code = 789-8) 4.76 See_Comment [Automated messa ge] The system which generated this result transmitted reference range: 4.26 - 5.52 10*6/?L. The reference range was not used to interpret this result as normal/abnormal. HGB (test code = 718-7) 14.3 g/dL 12.2-16.4 HCT (test code = 4544-3) 43.9 % 38.4-49.3 MCV (test code = 787-2) 92.2 fL 81.7-95.6 MCH (test code = 785-6) 30.0 pg 26.1-32.7 MCHC (test code = 786-4) 32.6 g/dL 31.2-35.0 RDW-SD (test code = 44317-1) 50.5 fL 38.5-51.6 RDW-CV (test code = 788-0) 14.8 % 12.1-15.4 PLT (test code = 777-3) 159 See_Comment [Automated messa ge] The system which generated this result transmitted reference range: 150 - 328 10*3/?L. The reference range was not used to interpret this result as normal/abnormal. MPV (test code = 46300-7) 11.9 fL 9.8-13.0 NRBC/100 WBC (test code = 8307681511) 0.0 See_Comment [Automated [employer]age] The system which generated this result transmitted reference range: 0.0 - 10.0 /100 WBCs. The reference range was not used to interpret this result as normal/abnormal. NRBC x10^3 (test code = 0718469676) See_Comment [Automated messa ge] The system which generated this result transmitted reference range: 10*3/?L. The reference range was not used to interpret this result as normal/abnormal. GRAN MAT (NEUT) % (test code = 770-8) 53.0 % IMM GRAN % (test code = 4479155583) 0.30 % LYMPH % (test code = 736-9) 30.6 % MONO % (test code = 5905-5) 10.6 % EOS % (test code = 713-8) 4.7 % BASO % (test code = 706-2) 0.8 % GRAN MAT x10^3(ANC) (test code = 4778802723) 5.13 10*3/uL 1.99-6.95 IMM GRAN x10^3 (test code = 1554893307) 0.03 10*3/uL 0.00-0.06 LYMPH x10^3 (test code = 731-0) 2.97 10*3/uL 1.09-3.23 MONO x10^3 (test code = 742-7) 1.03 10*3/uL 0.36-1.02 H EOS x10^3 (test code = 711-2) 0.46 10*3/uL 0.06-0.53 BASO x10^3 (test code = 704-7) 0.08 10*3/uL 0.01-0.09 Lab Interpretation (test code = 08972-8) Abnormal [facility] HEMOGLOBIN A1C [id number] 20:57:00* Test Item Value Reference Range Interpretation Comme nts POCT HBA1C (test code = 4548-4) 7.4 % 4-6 A Lab Interpretation (test cod e = 18860-0) Abnormal [facility] HEMOGLOBIN A1C [id number] 20:57:00* Test Item Value Reference Range Interpretation Comme nts POCT HBA1C (test code = 4548-4) 7.4 % 4-6 A Lab Interpretation (test cod e = 77678-4) Abnormal [facility] URINALYSIS W SPECIFIC [id number] 16:12:00* Test Item Value Reference Range Interpretation Comme nts POCT U SP GRAV (test code = 3255) 1.020 mg/dl 1.005-1.025 POCT PH U (test code = 3254) 5 mg/dl 5-8 POCT U LEUK EST (test code = 3263) neg Negative - Negative POCT U NIT (test code = 3262) neg Negative - Negati ve POCT U PROT (test code = 3259) trace Negative - Negative POCT U GLU (test code = 3256) Negative - Negati ve POCT U KETONE (test code = 3258) neg Negative - Negative POCT U UROBILI (test code = 3260) neg 0.2-1 POCT U BILI (test code = 3261) neg Negative - Negative POCT U BLD (test code = 3257) neg Negative - Negati ve POCT U COLOR (test code = 3266) dark yellow POCT U APPEAR (test code = 3267) clear [facility] URINALYSIS W SPECIFIC [id number] 16:12:00* Test Item Value Reference Range Interpretation Comme nts POCT U SP GRAV (test code = 3255) 1.020 mg/dl 1.005-1.025 POCT PH U (test code = 3254) 5 mg/dl 5-8 POCT U LEUK EST (test code = 3263) neg Negative - Negative POCT U NIT (test code = 3262) neg Negative - Negati ve POCT U PROT (test code = 3259) trace Negative - Negative POCT U GLU (test code = 3256) Negative - Negati ve POCT U KETONE (test code = 3258) neg Negative - Negative POCT U UROBILI (test code = 3260) neg 0.2-1 POCT U BILI (test code = 3261) neg Negative - Negative POCT U BLD (test code = 3257) neg Negative - Negati ve POCT U COLOR (test code = 3266) dark yellow POCT U APPEAR (test code = 3267) clear [facility] GLUCOSE (AUTOMATED)2021-12-21 19:15:33* Test Item Value Reference Range Interpretation Comme nts POCT GLU (test code = 1725424801) 235 mg/dL 70-110 H Lab Interpretation (test cod e = 34178-4) Abnormal [facility] GLUCOSE (AUTOMATED)2021-12-21 19:15:28* Test Item Value Reference Range Interpretation Comme [facility] POCT GLU (test code = 2885116091) 189 mg/dL 70-110 H Lab Interpretation (test cod e = 08761-6) Abnormal [facility] METABOLIC PANEL (NA, K, CL, CO2, GLUCOSE, BUN, CREATININE, CA)2021-12-21 10:15:33* Test Item Value Reference Range Interpretation Comme [facility] NA (test code = 1915236152) 137 mmol/L 135-145 K (test code = 1929335504) 4.0 mmol/L 3.5-5.0 CL (test code = 2531156814) 102 mmol/L 98-108 CO2 TOTAL (test code = 9332241013) 28 mmol/L 23-31 AGAP (test code = 3363766262) 2-16 BUN (test code = 7241771847) 25 mg/dL 7-23 H GLUCOSE (test code = 6487306501) 181 mg/dL 70-110 H CREATININE (test code = 4910840693) 1.25 mg/dL 0.60-1.25 CALCIUM (test code = 8572899856) 8.5 mg/dL 8.6-10.6 L eGFR (test code = 7014209347) mL/min/1.73m2 JOSEPHINE (test code = JOSEPHINE) Association [...] imaging tests). Lab Interpretation (test code = 16285-0) Abnormal [facility] WITH NVVI6011-71-52 10:01:53* Test Item Value Reference Range Interpretation Comme nts WBC (test code = 6690-2) See_Comment [Automated [facility]] The system which generated this result transmitted reference range: 4.20 - 10.70 10*3/?L. The reference range was not used to interpret this result as normal/abnormal. RBC (test code = 789-8) See_Comment L [Automated [facility]] The system which generated this result transmitted reference range: 4.26 - 5.52 10*6/?L. The reference range was not used to interpret this result as normal/abnormal. HGB (test code = 718-7) 12.1 g/dL 12.2-16.4 L HCT (test code = 4544-3) 36.3 % 38.4-49.3 L MCV (test code = 787-2) 91.9 fL 81.7-95.6 MCH (test code = 785-6) 30.6 pg 26.1-32.7 MCHC (test code = 786-4) 33.3 g/dL 31.2-35.0 RDW-SD (test code = 30919-7) 46.1 fL 38.5-51.6 RDW-CV (test code = 788-0) 13.6 % 12.1-15.4 PLT (test code = 777-3) See_Comment L [Automated [facility]] The system which generated this result transmitted reference range: 150 - 328 10*3/?L. The reference range was not used to interpret this result as normal/abnormal. MPV (test code = 94747-2) 10.8 fL 9.8-13.0 NRBC/100 WBC (test code = 1566718462) See_Comment [Automated me ssage] The system which generated this result transmitted reference range: 0.0 - 10.0 /100 WBCs. The reference range was not used to interpret this result as normal/abnormal. NRBC x10^3 (test code = 6515141115) See_Comment [Automated messa ge] The system which generated this result transmitted reference range: 10*3/?L. The reference range was not used to interpret this result as normal/abnormal. GRAN MAT (NEUT) % (test code = 770-8) 52.4 % IMM GRAN % (test code = 1208801939) 0.40 % LYMPH % (test code = 736-9) 31.3 % MONO % (test code = 5905-5) 9.5 % EOS % (test code = 713-8) 5.7 % BASO % (test code = 706-2) 0.7 % GRAN MAT x10^3(ANC) (test code = 5732183923) 4.03 10*3/uL 1.99-6.95 IMM GRAN x10^3 (test code = 1011965793) 0.03 10*3/uL 0.00-0.06 LYMPH x10^3 (test code = 731-0) 2.40 10*3/uL 1.09-3.23 MONO x10^3 (test code = 742-7) 0.73 10*3/uL 0.36-1.02 EOS x10^3 (test code = 711-2) 0.44 10*3/uL 0.06-0.53 BASO x10^3 (test code = 704-7) 0.05 10*3/uL 0.01-0.09 Lab Interpretation (test code = 91922-9) Abnormal [facility] GLUCOSE (AUTOMATED)2021-12-21 00:58:59* Test Item Value Reference Range Interpretation Comme [facility] POCT GLU (test code = 7022425065) 194 mg/dL 70-110 H Lab Interpretation (test cod e = 14061-6) Abnormal [facility] GLUCOSE (AUTOMATED)2021-12-20 21:29:16* Test Item Value Reference Range Interpretation Comme [facility] POCT GLU (test code = 6849941362) 210 mg/dL 70-110 H Lab Interpretation (test cod e = 02109-6) Abnormal [facility] GLUCOSE (AUTOMATED)2021-12-20 16:26:45* Test Item Value Reference Range Interpretation Comme nts POCT GLU (test code = 7829219856) 311 mg/dL 70-110 H Lab Interpretation (test cod e = 41252-7) Abnormal [facility] GLUCOSE (AUTOMATED)2021-12-20 12:55:27* Test Item Value Reference Range Interpretation Comme nts POCT GLU (test code = 1367970254) 208 mg/dL 70-110 H Lab Interpretation (test cod e = 51144-7) Abnormal [facility] GLUCOSE (AUTOMATED)2021-12-20 12:55:27* Test Item Value Reference Range Interpretation Comme nts POCT GLU (test code = 4664666035) 232 mg/dL 70-110 H Lab Interpretation (test cod e = 37981-3) Abnormal [facility] GLUCOSE (AUTOMATED)2021-12-20 12:42:07* Test Item Value Reference Range Interpretation Comme nts POCT GLU (test code = 1026637689) 169 mg/dL 70-110 H Lab Interpretation (test cod e = 91578-5) Abnormal [facility] Hem[facility] (A1C)2021-12-20 01:00:21* Test Item Value Reference Range Interpretation Comme nts HGB A1C (test code = 4548-4) 8.3 % 4.0-5.7 H JOSEPHINE (test code = JOSEPHINE) Reference RangesNormal: <5.7%Prediabetes: 5.7 - 6.4%Diabetes: > 6.5% Lab Interpretation (test code = 16206-1) Abnormal [facility] CampusLipid Panel (Total Cholesterol, Triglycerides, HDL) - Ujymalm1787-07-64 19:41:58* Test Item Value Reference Range Interpretation Comme nts CHOL (test code = 8283853112) 160 mg/dL 120-200 HDL (test code = 6754481122) 35 mg/dL See_Comment L [Automated [employer]] The system which generated this result transmitted reference range: >=40. The reference range was not used to interpret this result as normal/abnormal. HDLC RATIO (test code = 8294233738) See_Comment [Automated [employer]] The system which generated this result transmitted reference range: <=5.0. The reference range was not used to interpret this result as normal/abnormal. TRIG (test code = 8908653594) 130 mg/dL 30-170 LDL CHOL (test code = 74528-1) 99 mg/dL See_Comment [Automated [employer]] The system which generated this result transmitted reference range: <=160. The reference range was not used to interpret this result as normal/abnormal. VLDL (test code = 4476950290) 26 mg/dL 5-60 Lab Interpretation (test code = 94178-5) Abnormal [facility] CampusLactic Acid Whole Akvbp7966-96-52 18:19:29* Test Item Value Reference Range Interpretation Comme nts LACTIC ACID (test code = 1727072507) 1.97 mmol/L 0.50-2.20 Lab Interpretation (test cod e = 42861-7) Normal [facility] CampusETHANOL2022-11-04 16:09:56 ALCOHOL<10mg/dL12/19/2021 11:09 AM [facility]<10 Cfqyqnfh88-663 Toxic>100 Depression of LEASING CONSULTANT>400 Fatalities ReportedThe [facility] CampusACTIVATED PARTIAL THRMPLAS GUH5707-17-45 15:48:41* Test Item Value Reference Range Interpretation Comme nts APTT Patient (test code = 3173-2) See_Comment [Automated message] The system which generated this result transmitted reference range: 23 - 38 Seconds. The reference range was not used to interpret this result as normal/abnormal. JOSEPHINE (test code = JOSEPHINE) The [facility] patient population mean normal value for aPTT is 30 seconds. Lab Interpretation (test code = 56945-2) Normal [facility] CampusTROPONIN X3539-50-60 15:47:19* Test Item Value Reference Range Interpretation Comments TROPONIN I (test code = 5988904591) 0.007 ng/mL See_Comment [Automated message] The system which generated this result transmitted reference range: <=0.034. The reference range was not used to interpret this result as normal/abnormal. JOSEPHINE (test code = JOSEPHINE) Reference (Normal) Range (defined by the 99th percentile reference [...] patient's use of biotin. Lab Interpretation (test code = 70612-0) Normal [facility] CampusPROTHROMBIN TIME / BVD9723-25-82 15:46:39* Test Item Value Reference Range Interpretation Comme nts PROTIME PATIENT (test code = 5964-2) See_Comment [Automated [employer]] The system which generated this result transmitted reference range: 12.0 - 14.7 Seconds. The reference range was not used to interpret this result as normal/abnormal. INR (test code = 6301-6) Normal INR <1.1; Warfarin Therapeutic range 2.0 to 3.0 or 2.5 to 3.5, depending upon the indications. Lab Interpretation (test code = 24011-1) Normal [facility] CampusN-TERMINAL GTC-FMG4108-28-04 15:44:04* Test Item Value Reference Range Interpretation Comme nts NT-proBNP (test code = 8219143549) 214 pg/mL See_Comment [Automated message] The system which generated this result transmitted reference range: <=450. The reference range was not used to interpret this result as normal/abnormal. JOSEPHINE (test code = JOSEPHINE) Biotin has been reported to cause a negative bias, interpret results relative to patient's use of biotin. Lab Interpretation (test code = 59725-2) Normal [facility] CampusCOMP. METABOLIC PANEL (62576)2021-12-19 15:35:18* Test Item Value Reference Range Interpretation Comme nts NA (test code = 5207195321) 142 mmol/L 135-145 K (test code = 6959731107) 4.1 mmol/L 3.5-5.0 CL (test code = 9390158553) 104 mmol/L 98-108 CO2 TOTAL (test code = 2476984577) 27 mmol/L 23-31 AGAP (test code = 2263417083) 2-16 BUN (test code = 1443786593) 32 mg/dL 7-23 H GLUCOSE (test code = 7258764751) 164 mg/dL 70-110 H CREATININE (test code = 6209680413) 1.22 mg/dL 0.60-1.25 TOTAL BILI (test code = 7820820292) 0.4 mg/dL 0.1-1.1 CALCIUM (test code = 4114210457) 9.2 mg/dL 8.6-10.6 T PROTEIN (test code = 7788786182) 6.7 g/dL 6.3-8.2 ALBUMIN (test code = 5191444797) 4.0 g/dL 3.5-5.0 ALK PHOS (test code = 3736577805) 87 U/L 34-122 ALTv (test code = 1742-6) 34 U/L 5-50 AST(SGOT) (test code = 5730215041) 31 U/L 13-40 eGFR (test code = 6541188499) mL/min/1.73m2 JOSEPHINE (test code = JOSEPHINE) Association [...] imaging tests). Lab Interpretation (test code = 78446-1) Abnormal [facility] WITH HZSB5003-25-58 15:29:39* Test Item Value Reference Range Interpretation Comme nts WBC (test code = 6690-2) See_Comment [Automated [employer]] The system which generated this result transmitted reference range: 4.20 - 10.70 10*3/?L. The reference range was not used to interpret this result as normal/abnormal. RBC (test code = 789-8) See_Comment [Automated [employer]] The system which generated this result transmitted reference range: 4.26 - 5.52 10*6/?L. The reference range was not used to interpret this result as normal/abnormal. HGB (test code = 718-7) 14.0 g/dL 12.2-16.4 HCT (test code = 4544-3) 41.4 % 38.4-49.3 MCV (test code = 787-2) 91.6 fL 81.7-95.6 MCH (test code = 785-6) 31.0 pg 26.1-32.7 MCHC (test code = 786-4) 33.8 g/dL 31.2-35.0 RDW-SD (test code = 91460-4) 46.5 fL 38.5-51.6 RDW-CV (test code = 788-0) 13.7 % 12.1-15.4 PLT (test code = 777-3) See_Comment [Automated [employer]] The system which generated this result transmitted reference range: 150 - 328 10*3/?L. The reference range was not used to interpret this result as normal/abnormal. MPV (test code = 87402-5) 11.2 fL 9.8-13.0 NRBC/100 WBC (test code = 0489690519) See_Comment [Automated [employer] ssage] The system which generated this result transmitted reference range: 0.0 - 10.0 /100 WBCs. The reference range was not used to interpret this result as normal/abnormal. NRBC x10^3 (test code = 5499334658) See_Comment [Automated messa ge] The system which generated this result transmitted reference range: 10*3/?L. The reference range was not used to interpret this result as normal/abnormal. GRAN MAT (NEUT) % (test code = 770-8) 69.4 % IMM GRAN % (test code = 3263331157) 0.40 % LYMPH % (test code = 736-9) 20.6 % MONO % (test code = 5905-5) 7.6 % EOS % (test code = 713-8) 1.4 % BASO % (test code = 706-2) 0.6 % GRAN MAT x10^3(ANC) (test code = 1319639510) 7.38 10*3/uL 1.99-6.95 H IMM GRAN x10^3 (test code = 8988806510) 0.04 10*3/uL 0.00-0.06 LYMPH x10^3 (test code = 731-0) 2.19 10*3/uL 1.09-3.23 MONO x10^3 (test code = 742-7) 0.81 10*3/uL 0.36-1.02 EOS x10^3 (test code = 711-2) 0.15 10*3/uL 0.06-0.53 BASO x10^3 (test code = 704-7) 0.06 10*3/uL 0.01-0.09 Lab Interpretation (test code = 60519-9) Abnormal [facility]PO[facility]SE (AUTOMATED)2021-12-19 14:53:52* Test Item Value Reference Range Interpretation Comme nts POCT GLU (test code = 7841686886) 160 mg/dL 70-110 H Lab Interpretation (test cod e = 66987-7) Abnormal [facility] Notes Date/Time Note Provider Source 2023-06-28 14:54:19 dc1Y4oaFa34LAUUhcvrwOuMJIacUmFokZq VG5SgU2NjGacIXaZoM0rE3QNVVV4ud4920 -05-13T14:54:19 Images from the original note were not included.Requested RenewalsName from pharmacy: METFORMIN HCL 500 MG TABLETWill file in chart as: METFORMIN 500 mg tabletSig: TAKE 1 TABLET BY MOUTH IN THE MORNING AND IN THE EVENING WITH MEALSDisp: 180 tablet Refills: 1Start: 06/24/2023lass: eRXFor: Type 2 diabetes mellitus with hyperglycemia, without long-term current use of insulinLast ordered: 7 months ago (11/26/2022) by Jatin Alexander refill: 4Rx #: [id number]: Diabetes - Biguanides Orcssr4906/28/2023 02:46 PMProtocol Details HBA1C within 180 daysValid encounter within last 12 monthsCr is between 0 and 1.3 and within 360 daysTo be filled at: [facility]/pharmacy #[id number] - [place], [place] - [address] AT [facility] HBA1C (%)Date Value04/01/2022 7.4 (A)Recent VisitsDate Type Provider Dept05/12/23 Office Visit Philip Dawson MD [facility]04/12/23 Office Visit Philip Dawson MD [facility]03/09/23 Office Visit Philip Dawson MD [facility]01/06/23 Office Visit Philip Dawson MD [facility]12/31/22 Office Visit Philip Dawson MD [facility]11/26/22 Office Visit Philip Dawson MD [facility]11/12/22 Office Visit Philip Dawson MD [facility]10/07/22 Office Visit Philip Dawson MD [facility]09/01/22 Office Visit Nivia Eng AGPCNP [facility] Komurdxconhsz80/23/23 Office Visit Philip Dawson MD [facility] MedShowing recent visits within past 540 days with a meds authorizing provider and meeting all other requirementsFuture AppointmentsDate Type Provider Dept08/10/23 Appointment Philip Dawson MD [facility] MedShowing future appointments within next 150 days with a meds authorizing provider and meeting all other requirements 04258-6Yowycmkar encounter MnuzZU6193-81-87A39:54:40Telephone encounter NoteTXT1.2.840.264912.1.13.104.2.7 .2.745584|[id number] for patient pkyt68612-5ZrvmGUNPKWXJLWGKwkvsihw d C-CDA narrative text[address] DchpHmxmwjfxkExwvwdaueIILC23406206 45AROJEKVCVXTSTAYVAFSXZV9897-35-82 T14:54:401.2.840.539440.1.72.3.15| 1.2.840.677345.1.13.104.2.7.2.7278 [id number] [facility] 2023-05-31 13:08:31 WMxjxdHxR0/9OEx0er8E9NGJpqw/R1E/5N wPCmvAouJq0h8q3aLWiyzt2RKMUZ7o8742 -04-15T13:08:31 From: Nichol Mejia: Office of [facility] Danielsent: 05/31/2023 12:48 PM CDTSubject: Medication Renewal RequestRefills have been requested for the following medications:nystatin 100,000 unit/gram powder [Philip Dawson]Triamcinolone Acetonide 0.025 % lotion [Philip Dawson]Preferred pharmacy: [facility]/PHARMACY #[id number] [place], [place] - [facility] [address] LANGLOISDeliver method: PickupRecent VisitsDate Type Provider Dept05/12/23 Office Visit Philip Dawson MD [facility] Med04/12/23 Office Visit Philip Dawson MD [facility] Med03/09/23 Office Visit Philip Dawson MD [facility] Med01/06/23 Office Visit Philip Dawson MD [facility] Med12/31/22 Office Visit Philip Dawson MD [facility] Med11/26/22 Office Visit Philip Dawson MD [facility] Med11/12/22 Office Visit Philip Dawson MD [facility] Med10/07/22 Office Visit Philip Dawson MD [facility] Med07/07/22 Office Visit Philip Dawson MD [facility] Med06/11/22 Office Visit Susan Yadav MD [facility] MedShowing recent visits within past 540 days with a meds authorizing provider and meeting all other requirementsFuture AppointmentsDate Type Provider Dept08/10/23 Appointment Philip Dawson MD [facility] MedShowing future appointments within next 150 days with a meds authorizing provider and meeting all other requirements 08647-6Qnelfukcp encounter VjklYH9212-87-76C20:08:44Telephone encounter NoteTXT1.2.840.264909.1.13.104.2.7 .2.817671|[id number] for patient veeg38808-3XmrdKYAVFNYLFEIHxpxvdmj d C-CDA narrative text[address] IqklVlycizfjnIuvkbmlchXGNK54240427 11PWNKHMOWALMSNWIUZIMWZX3131-71-90 T13:08:441.2.840.939653.1.72.3.15| 1.2.840.698885.1.13.104.2.7.2.7278 [id number] [facility] 2023-05-13 07:27:52 ZAJ9z1Mom3Zr+TD5ahUW+ThwWS+AWeBlI3 p0laSMkyEYraqFCuaT4mLkRp4FAqWy5908 -03-28T07:27:52 Images from the original note were not included.Requested RenewalsName from pharmacy: CLOPIDOGREL 75 MG TABLETWill file in chart as: CLOPIDOGREL 75 mg tabletSig: TAKE 1 TABLET BY MOUTH EVERY DAY IN THE MORNINGDisp: 90 tablet Refills: 1Start: 05/13/2023lass: eRXFor: Medication refillLast ordered: 7 months ago (10/05/2022) by Jatin Alexander refill: 02/15/2023x #: [id number]-Ofwummpvy Sepjrf3205/13/2023 12:52 AMProtocol Details RBC in normal range and within 360 daysValid encounter within last 12 monthsHGB in normal range and within 360 daysHCT in normal range and within 360 daysPLT in normal range and within 360 daysTo be filled at: [facility]/pharmacy #[id number] - [place], [place] - [address] [address] LANGLOISRecRiple[facility]11/12/928564QAJ 4.13*Recent VisitsDate Type Provider Dept05/12/23 Office Visit Philip Dawson MD [facility] Med04/12/23 Office Visit Philip Dawson MD [facility]03/09/23 Office Visit Philip Dawson MD [facility]01/06/23 Office Visit Philip Dawson MD [facility]12/31/22 Office Visit Philip Dawson MD [facility]11/26/22 Office Visit Philip Dawson MD [facility]11/12/22 Office Visit Philip Dawson MD [facility] Med10/07/22 Office Visit Philip Dawson MD [facility]07/07/22 Office Visit Philip Dawson MD [facility] Med06/11/22 Office Visit Susan Yadav MD [facility] MedShowing recent visits within past 540 days with a meds authorizing provider and meeting all other requirementsFuture AppointmentsDate Type Provider Dept08/10/23 Appointment Philip Dawson MD [facility] F[facility] MedShowing future appointments within next 150 days with a meds authorizing provider and meeting all other requirements 66191-0Rjkttuuhd encounter NdcjCH9799-66-56L09:28:11Telephone encounter NoteTXT1.2.840.579724.1.13.104.2.7 .2.693291|[id number] for patient jcyo11337-5QkooUBHIINHNMHVXixfbkmw d C-CDA narrative [id number] 11LSKSVZBLNAWTACCNNLSLST3159-25-89 T07:28:111.2.840.612307.1.72.3.15| 1.2.840.285739.1.13.104.2.7.2.7278 [id number] [facility] 2023-05-12 13:57:24 AP1cfY+K0mUblS6JIFWJXl38qItWS9sTUq wAjyIE7IsERR1nyeECJFrs71dKjgly0835 -03-27T13:57:24 Contacted EC, Stewart Liao and notified him per Dr. Dawson we do not offer telehealth. Reminded him of patent appt today. He verbalized understanding and stated patient will be here.Next Appt: With Family Medicine (Philip Dawson MD)05/12/2023 at 2:45 Cathy Bentley LVN 05/12/2023 1:58 PM 86530-3Enfnjlqen encounter IkeoEO2166-47-70R64:58:18Telephone encounter NoteTXT1.2.840.861667.1.13.104.2.7 .2.012178|[id number] for patient ptia98222-7DesyDAMGDBEEJDFWlkvuqje d C-CDA narrative [id number] 73ONZOICBAMRQXOZFWRMFLOG9706-49-58 T13:58:181.2.840.911749.1.72.3.15| 1.2.840.190850.1.13.104.2.7.2.7278 [id number] [facility] 2023-05-12 13:53:19 suu/aOEb6uIHaKpo/Sj0mrHiWBS25r42sX OwrXtAYQqbeFUbXrXvPlhIVHXh2zD27587 -03-27T13:53:19 I don't do telehealth. Perhaps one of the other providers. 26533-9Kadvwpitj encounter MrwrGZ8604-09-61F15:53:55Telephone encounter NoteTXT1.2.840.478915.1.13.104.2.7 .2.673275|[id number] for patient sikl98572-3KyelYXUVHEKOFOIMtedflem d C-CDA narrative textUT[address] AtxgAytzghsalBzkysakjnRMDY25930460 54ZBGLUGNZVVSEVGTPEYWEYF8000-62-73 T13:53:551.2.840.906840.1.72.3.15| 1.2.840.533953.1.13.104.2.7.2.7278 [id number] [facility] 2023-05-12 13:23:17 PvChnQe0ET3U+6IPeeajSX7jFGr5YZ1A0Q sGPShtkA3bWvnzMul+0n8MgoUIDiOq2536 -03-27T13:23:17 Please review and advise 19369-0Jchjfqrwk encounter LmdfWQ2992-97-19G22:23:24Telephone encounter NoteTXT1.2.840.030486.1.13.104.2.7 .2.070447|[id number] for patient fxdb86171-1ZljhQZFECLOOEPSIpvffump d C-CDA narrative textUT[address] [id number] 82PVWACLYHRMGOFAFSMLUDJF1657-16-87 T13:23:241.2.840.160693.1.72.3.15| 1.2.840.962181.1.13.104.2.7.2.7278 [id number] [facility] 2023-05-12 12:16:32 HOHr2YSZi9j7+rd3MlU/BwlblcAkM1vRun iczyeia94cd+OWEXQ9t8OQJsOwYrMQ4974 -03-27T12:16:32 Nichol Liao is a 87 year old male . Stewart is calling stating patient has open blister all over body x 2-3 days . Requesting a [facility] health appointment . 90018-4Axebhwlln encounter OekfCJ4071-52-34F68:18:01Telephone encounter NoteTXT1.2.840.488490.1.13.104.2.7 .2.821738|[id number] for patient akpu24798-8JjimPPUFKJHBNDDTymcqwsp d C-CDA narrative gdvz050050925OxqehWhitney Velez[id number] 75GDXVQDTDUURZTPPUBUEAAI3927-93-10 T12:18:011.2.840.107893.1.72.3.15| 1.2.840.799687.1.13.104.2.7.2.7278 [id number] Whitney Camacho [facility] 2023-04-30 08:23:34 wCfE7txd+2X9N58Ub1kGAWFWPC5xQgRxU+ pxSBlWcB1p8kR4vD5ZRXLlrdC1Av5k1678 -03-15T08:23:34 Noted 19878-7Uebezwgca encounter MdvzRJ9765-28-58K61:23:38Telephone encounter NoteTXT1.2.840.727331.1.13.104.2.7 .2.111307|[id number] for patient voqg14478-7UlfsZZZPKNXSXRKVxlsapdx d C-CDA narrative textUT[address] VtojTtbiocwlzRbwtqzhibPWIU80851837 79VPQZUHWBYDDEBMISTQMWYN7238-84-74 T08:23:381.2.840.765720.1.72.3.15| 1.2.840.959826.1.13.104.2.7.2.7278 [id number] [facility] 2023-04-30 08:16:53 v69wa+hIhJYJTYJE6F92yFzbdvMi8+OXca mQRdM5oOSTCaTYk8iy/XlZUPokrQw+2023T08:16:53 Copied from [facility] #[id number]. Topic: Clinical - Order>> Apr 30, 2023 8:15 AM Patient Charge Attendant wrote:Cierra Cruz Physical Therapist [facility] is calling in to notify PCP that patient was seen for Physical Therapy to recertify for continued physical therapy at home. the orders will be sent to PCP through [employer] 79371-3Vjolkljps encounter EggeLZ0456-12-60W32:23:38Telephone encounter NoteTXT1.2.840.642627.1.13.104.2.7 .2.809062|[id number] for patient kjox01042-3XnioMFCTLVBYLRIAgeqahfi d C-CDA narrative [id number] Craw[address]yes [id number] 83AMXROERVVBIGEEXBFKSLEE7320-36-10 T08:23:381.2.840.955359.1.72.3.15| 1.2.840.940667.1.13.104.2.7.2.7278 79_[id number] [facility] 11:34:45 t2Tumfu89/kKhTl1wnmdWqI+2QFTUWeSi4 Re9I1OBli68rzchzSZrEXYT6ISAB5g3782 -03-08T11:34:45 Copied from [facility] #[id number]. Topic: Clinical - Medical Advice>> Apr 23, 2023 11:32 AM Patient Charge Attendant wrote:Nichol Liao is a 87 year old maleJordan with [facility] correction care is calling to report pt went to ER in [facility] for shoulder pain. 81434-8Fgqtlfqes encounter TvyhII2516-03-63Y94:39:25Telephone encounter NoteTXT1.2.840.864508.1.13.104.2.7 .2.922993|[id number] for patient bbmw63375-9TnhmNFMXCVCMEOROqhsamyq d C-CDA narrative teoq807991286Aqbcli N Miller[address] 32RRUVOLJGIVKNLQIXHEFKKE2948-14-46 T18:39:251.2.840.715420.1.72.3.15| 1.2.840.979132.1.13.104.2.7.2.7278 79_[id number] Beatriz Velasco [facility] 2023-04-18 22:51:24 /+OPo8apx+XOJ1c4cscoJC/X7wxiIvnka8 58+SSziUiwcDifoD8DE+uhZdj1JRoH2366 -03-03T22:51:24 Pt given printed and verbal discharge instructions regarding acute pain of right shoulder.Encouraged hydration,Discussed ibuprofen and to take with food to avoid GI distress.Pt verbalized understanding of instructions, pt awake alert oriented, resp reg unlabored, skin w/d, color appropriate for race, moves all ext well,pt encouraged to follow up with Ortho.Advised to seek medical attention for new/prolonged/worsening of symptoms,Symptoms unchangedNo adverse reaction to meds given in ER noted upon dischargeAwake, alert oriented, resp reg unlabored, skin w/d, pt leaving in personal wheelchair being pushed by son, in no apparent distress, accompanied by family. 28384-5Jpguhdxeq department KqaeZJ5383-01-12O88:52:37[facility] NoteTXT1.2.840.185147.1.13.104.2.7 .2.988184|[id number] for patient uicj04869-7OotfGZTXAGEKDHCIdxxrbbr d C-CDA narrative [id number] Nino RNUT[address] XfaoUphjbillbEgshusckhFLEI11977861 90WBMHRFSAGHKYGYEPMEMVZL6924-37-13 T22:52:371.2.840.797191.1.72.3.15| 1.2.840.705758.1.13.104.2.7.2.7278 79_[id number] Miya Nino RN [facility] 2023-04-18 20:25:09 WIPnrgBMaevh/4EmrnjD2snckFWHxYNVlH JvgSfifICYQD7MiWJIsgPpoBa6VMqI9958 -03-03T20:25:09 Pt arrives in wheelchair accompanied by son reporting that earlier today he was c/o right side shoulder pain. States that he was given ibuprofen around 1800 and caregiver called son telling him that the pain was not relieved and that pt was requesting to go to the ED. When son went to get him they transferred pt to chair and he says the pain went away, but they still wanted him to be checked out. Pt does receive Cortizone injections to the right shoulder and missed the last injection they report. 57790-4Mphjyphbm department Triage mzqyQA8220-34-32U16:35:33[facility] Triage noteTXT1.2.840.433219.1.13.104.2.7 .2.116910|[id number] for patient egme28025-9Znvkeazwn department NoteLNNARRATIVEFormatted C-CDA narrative [id number] L Williams RNUT[address] JqdlZ[id number] 89LYYLQKCVWNKMRYPKSODOQW7561-56-89 T20:35:331.2.840.093803.1.72.3.15| 1.2.840.985350.1.13.104.2.7.2.7278 79_[id number] Gracy Stephen RN [facility] 2023-03-25 14:54:31 KKC1zQWOvNkY0bk/mGkBQ8qoRvUenHFyu9 Rw6zSOpbI5V/KiivtFSa3zTeHF7+jF63432023T14:54:31 Re[facility]. Placed in the providers box. 26269-8Xhsfpqrzk encounter HxvpWQ1450-74-87F21:58:50Telephone encounter NoteTXT1.2.840.630420.1.13.104.2.7 .2.827809|9055130745ZTXxeurgbuu for patient tyit26136-4PwffSPNYQRMPUTVCsxfxczy d C-CDA narrative zctt237019302Qdewxldpf [address]TXTX[address] 59ZRNRPUMJMXKJGMCDKLQMAH5970-15-69 T14:58:501.2.840.321651.1.72.3.15| 1.2.840.597325.1.13.104.2.7.2.7278 79_[id number] [facility] 08:22:13 GZICCXfeW/slNqc5CgonksbDVzj5zMF8wt KdPG8o1SAwCe+1cYqwJlhVUGTtFF2g7776 -01-31T08:22:13 CHAIM 09/01/2022No Appt ScheduledPt needs F/U Appt for future refillsGlimepiride 2 mg.Please schedule F/U appt.Quiana Corona MA 03/17/2023 8:26 AM 44838-3Fhkvwsvlz encounter NkcxUK2578-51-32T96:26:50Telephone encounter NoteTXT1.2.840.985450.1.13.104.2.7 .2.738505|8233027997BLBquprncnm for patient ujgf46614-6WltjJUFZYJHIGDMLyuiuxaw d C-CDA narrative kebp421489864Eieqbkt L Lopez [address] 42BZODWSMAKZBLGDKYYRRPVM1927-78-69 T08:26:501.2.840.264717.1.72.3.15| 1.2.840.828859.1.13.104.2.7.2.7278 79_[id number] Quiana Corona MA [facility] 2023-03-09 10:51:11 jMZAPWmudpfpNn89ygYDKZ2/64+5Sx54lY 0Pjv7kJ9hg79GiVFJyqKgWvhY22sxM2696 -01-23T10:51:11 Received Coordination Note Report from [facility].Placed in Providers box. 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 Dawson that pt had his evaluation done today. They will be seeing pt for generalized weakness, right hand weakness, and right shoulder pain. If there are any questions or concerns, please reach out to her at [phone]. 76695-6Nknqjjoav encounter RdekEK9388-23-29L85:45:10Telephone encounter NoteTXT1.2.840.954218.1.13.104.2.7 .2.048362|4407909756ZUJzwmcxiev for patient rgmh29452-1OfvjBBNTWQFNAIBWtaamjux d C-CDA narrative sqvf52236896Xjuxktj R [address] 26VWAKIJDSXZZACNZBZCFDCC6309-76-42 T14:45:101.2.840.955374.1.72.3.15| 1.2.840.133391.1.13.104.2.7.2.7278 79_[id number] Quiana Knight [facility] 2023-03-05 10:45:45 +SvjdGm4p81hRAL9Jja3iWqduhLwm4SZ5N /ISGpMMsaWz+1ermYaBXr1pcAqaDNg1870 -01-19T10:45:45 Cannot discuss care/condition over phone. Patient must come to follow up appointments in order to continue to receive refills, ect. 89307-2Xjfssxwsc encounter RlgxBH7314-57-61F60:46:45Telephone encounter NoteTXT1.2.840.298954.1.13.104.2.7 .2.565806|2307630504PPVtvubutfs for patient bzfe69777-3DojzLVWKNOSTDOOHxeanoam d C-CDA narrative [id number] D Jetton [address]TXTX[address] 96BPNAGHHEPSNFKHFNKSNZER5571-00-08 T10:46:451.2.840.098316.1.72.3.15| 1.2.840.118068.1.13.104.2.7.2.7278 79_[id number] Екатерина ARREGUINN [facility] 2023-03-05 08:41:43 RJ6iU6O+GjUtU4BzjdxANFfoKgLHv6daoI czkvvS7LB1akPE+0hhbdzr3yGlwJFm5105 -01-19T08:41:43 Nichol Liao is a 87 year old malePt's daughter Aleshia is calling requesting to speak with a nurse regarding the pt not wanting to come in to his appointment. She is wanting to discuss pt's condition over the phone. Please advise.[phone] red signed by Judy Lawson at 03/05/2023 8:44 AM CZK14827-4Qkmfdqgao encounter IbzmOD7724-78-53Q50:44:05Telephone encounter NoteTXT1.2.840.486646.1.13.104.2.7 .2.200413|8866388433WYKrtonrfxc for patient lisf53153-2GxhvEIVHVNVEGBIBlortqxh d C-CDA narrative orgf418367298Gtentt T Gilbert[address] RysrVhrbxjsofGlvlfbctnBAEC15890773 75VBEUSPQUBCCCANAKJDRSXA1700-73-59 T08:44:051.2.840.851537.1.72.3.15| 1.2.840.022776.1.13.104.2.7.2.7278 79_[id number] Judy Lawson [facility] 2023-03-04 09:00:40 sDZ2EcYQTLY2DCp8sG0ZOktNxER3HI1S6H Db2s+Ql793dWrdnISOFEkOipCwBsE/2023T09:00:40 Orders to readmit for group home and PT eval with office visit notes from 01/06/2023 faxed to [phone] Jhony Valentine.Spoke to Meme with [facility] and notified her the orders have been faxed. She verbalized understanding.Adelaide Bentley LVN 03/04/2023 9:01 AM 55762-0Wqmilwzct encounter AcaoAX4329-83-57O39:04:15Telephone encounter NoteTXT1.2.840.772962.1.13.104.2.7 .2.418833|1362025088PWWdnohvqqx for patient hpba28381-9TzwaEOSBBWTGKPWTcaxcbca d C-CDA narrative text[address]TXTX[address] 80DMABKJYXOGEKVVYSLTZYUM1402-53-89 T09:04:151.2.840.903438.1.72.3.15| 1.2.840.936049.1.13.104.2.7.2.7278 79_[id number] [facility] 2023-03-04 08:10:09 ntxeLG5zOE6tozzGsGF1OpwDRlsRSw/Ci0 KNcvHrZ5Fzkq1qQvLKc0eZEfI5cyMf0078 -01-18T08:10:09 Duplicate encounter. Will re-cert patient for and send last clinical notes. Closing this encounter.Adelaide Bentley LVN 03/04/2023 8:10 AM 58493-5Jywpffdet encounter IpsuOA6154-22-45Q52:10:38Telephone encounter NoteTXT1.2.840.161449.1.13.104.2.7 .2.222843|1496169517MNExrakjfqv for patient qgmt75207-3SwydBFJCMBPWVSHFqrzflyj d C-CDA narrative text[address]TXTX[address] 84QCRIJIHBWPECCMMZIQCDHN6521-94-73 T08:10:381.2.840.066249.1.72.3.15| 1.2.840.206579.1.13.104.2.7.2.7278 79_[id number] [facility] 2023-03-03 11:49:22 NdmwivA0GhLgTUdSGu6+3wMEld1IT+rvzs 0wi2cBBpfYQHoHTUBR3efhlrRRwx1J7974 -01-17T11:49:22 [place] [address]-8Nptbufkor encounter DgsfTH4953-71-07H29:49:32Telephone encounter NoteTXT1.2.840.632745.1.13.104.2.7 .2.438493|8544570500ROOmmhyvjya for patient zqmi93414-5AymvCEVIDOGOEIOGyhqhiyd d C-CDA narrative textUT[address] CjbpAkcdmjhupNftmabxjrOUWC24829716 05CZHQARFAMOVQTBNFKEOIBK1922-50-55 T11:49:321.2.840.560639.1.72.3.15| 1.2.840.489810.1.13.104.2.7.2.7278 79_[id number] [facility] 2023-03-03 10:51:42 IMPLEMENTATION COORDINATOR+vxVvxQwiN5yg+UWiRlWhZFaVYvo11zd H0ptnXdCt9QFIyFV2Pr92FX8J91pOq7025 -01-17T10:51:42 Spoke with Meme from [facility], she is requesting and reorder for Home Health to re-cert him for services. She requests that the last Office visit notes be sent with the order. She states that this visit is good for the next 30days for re-cert. 01959-1Kdkekcqlr encounter HuzeHR1083-12-07U12:57:14Telephone encounter NoteTXT1.2.840.046749.1.13.104.2.7 .2.130167|2931421348HLTjkkbjiwa for patient mpsq04956-5EdduZZOTDRWKHVXWapbczod d C-CDA narrative risi904800805Dfejg J Bunte RN[address]TXTX[address] 05BVRHTKOJZLGFQFPTYKWJXS3560-27-66 T10:57:141.2.840.398497.1.72.3.15| 1.2.840.051369.1.13.104.2.7.2.7278 79_[id number] Ashia Meyer RN [facility] 2023-03-03 06:28:58 qSvU+ee9hmKLHXegdatl6r0MuHXXBxZLGJ xtXzsLDVjXv8R09/wLIRd7xVrx8ec39222 -01-17T06:28:58 [place] [address]-4Eqnshzrvp encounter GwkkBB6380-87-01R20:29:05Telephone encounter NoteTXT1.2.840.004098.1.13.104.2.7 .2.568764|5402278445QXEjrdmlvcr for patient snyv94436-9NoxwHWQNYLDBKCKLbdixegh d C-CDA narrative text[address]TXTX[address] 31SYRRWSMBMUTEFLIUEUNOUU1177-72-63 T06:29:051.2.840.315465.1.72.3.15| 1.2.840.487323.1.13.104.2.7.2.7278 79_[id number] [facility] 2023-03-02 13:14:27 g4w13sHCMzRVetzP7ahhRhEtPVTOvBKsS5 F1hZMR0DdD/L8dRPX4iqFZVSa9u9J41068 T13:14:27 Please review and advise if okay.Recent VisitsDate Type Provider Dept103/08/22 Office Visit Philip Dawson MD [facility]12/31/22 Office Visit Philip Dawson MD [facility]11/26/22 Office Visit Philip Dawson MD [facility]11/12/22 Office Visit Philip Dawson MD [facility]10/07/22 Office Visit Philip Dawson MD [facility]07/07/22 Office Visit Philip Dawson MD [facility]06/11/22 Office Visit Susan Yadav MD [facility]06/05/22 Office Visit Susan Yadav MD [facility]05/13/22 Office Visit Philip Dawson MD [facility]05/04/22 Office Visit Philip Dawson MD [facility] MedShowing recent visits within past 540 days with a meds authorizing provider and meeting all other requirementsFuture AppointmentsDate Type Provider Dept03/09/23 Appointment Philip Dawson MD [facility]04/12/23 Appointment Philip Dawson MD [facility]Showing future appointments within next 150 days with a meds authorizing provider and meeting all other requirements 19173-5Piwrmgqhq encounter ZdeiOL0185-15-07P81:14:53Telephone encounter NoteTXT1.2.840.199154.1.13.104.2.7 .2.146279|2487467707XLVgblgoakl for patient trfv84653-4RxfvGWMVNIMTEOXCderrqds d C-CDA narrative textUT[address]veston[place] 91GYIUHUYJPOCCGFVZGWNUUX2546-02-90 T13:14:531.2.840.921448.1.72.3.15| 1.2.840.218098.1.13.104.2.7.2.7278 79_[id number] [facility] 2023-03-02 13:01:59 SqENFJpuosNEEBtkAqp4Gxc1X8KlqtTxwA +vgAmSbOQW6Th7zglejHNEPAJguTI/2023T13:01:59 Nichol Liao is a 87 year old male Meme with [facility] is requesting update on status of clinical notes and re-admitting the patient of home health orders. Please advise. [phone] signed by Leno Tesfaye at 03/02/2023 1:03 PM FOY23466-1Odigimcqv encounter BrsaCA5135-18-56Z29:03:55Telephone encounter NoteTXT1.2.840.933134.1.13.104.2.7 .2.918454|9726594815SOQionlttjz for patient slxz87657-6QhlrHGXHZKPZZPGThbsynnm d C-CDA narrative zzur696673001Nknbea D [address] 05IQWOUSHIVVDCRQPGGFAVCC0823-35-09 T13:03:551.2.840.601002.1.72.3.15| 1.2.840.663563.1.13.104.2.7.2.7278 79_[id number] Leno Tesfaye [facility] 2023-02-26 15:26:52 BTWkO3gFcLrz37Xi4oqk7Po7YFypWYzChV UhQG0gcLwbTf47gFU3NQoU9U5jPmWc0004 -01-12T15:26:52 Attempted to contact patient. No answer. Left message to call back.Adelaide Bentley LVN 02/26/2023 3:27 PM 96873-6Lrzrnzafk encounter QpymVD6929-97-00E47:27:38Telephone encounter NoteTXT1.2.840.244238.1.13.104.2.7 .2.262373|2649143440CEVhxbfzdwx for patient gknr70704-7TnarCRKTICHKYGUIqtmgzlb d C-CDA narrative [address] 00CMGXHFOGTTZVXDTCTODJWR7479-16-83 T15:27:381.2.840.966378.1.72.3.15| 1.2.840.099530.1.13.104.2.7.2.7278 79_[id number] [facility] 2023-02-26 09:29:39 cuAhmJX10jJ27V2Rs7WrL+fztLQOtdrve5 RG472Fm1bng4A/u8x8PZSwF1x/E1HL02142023T09:29:39 Nichol Ward is a 87 year old maleJulie with [facility] calling to check status of re-admitting the patient home health orders 25539-2Eidvlvfsb encounter AvaxZU8066-84-22F93:31:06Telephone encounter NoteTXT1.2.840.473725.1.13.104.2.7 .2.957141|2667881508QAOlgwrdkdd for patient fjfn20029-6CneuQCKHPVMYECBDrdxyqup d C-CDA narrative nisl962452364TcGsozfo [place]TX[address] 00XKKFGRJCKUQIKZEWUSYLEK6775-22-20 T09:31:061.2.840.176865.1.72.3.15| 1.2.840.131271.1.13.104.2.7.2.7278 79_[id number] Danielle Segura [facility] 2023-02-24 14:39:48 /iYXP1umz8zCtfA/wm/VgPzokHF6BAtzAX 6dH6cmgq7cLf9tnHQQzC3GVmvkhePH4886 -01-10T14:39:48 Attempted to contact patient. No answer. Left message to call back.Adelaide Bentley LVN 02/24/2023 2:39 PM 66322-7Mwmhibruk encounter ZiqhMM0694-85-01C50:40:00Telephone encounter NoteTXT1.2.840.837868.1.13.104.2.7 .2.365128|0561338706IIRohsbxhkr for patient qlfg18382-7SdhcBLLLYGWIDMEQiyjaxnz d C-CDA narrative text[address] ZrehMbpzvbvpfAeaqulptcBDGV59306139 06YPMIVCNNLIKRMFLTVFYCDP4720-95-39 T14:40:001.2.840.531874.1.72.3.15| 1.2.840.299147.1.13.104.2.7.2.7278 79_[id number] [facility] 2023-02-23 13:09:12 5MNuZkapHAt/1+YY94nAF04u6IzAdLdx8X DXOEYIeXaUNcVk5Rdqkx7LxTSw4x/k202T13:09:12 Nichol Liao is a 87 year old maleJulie from [facility] is calling wanting to get updates on needing new orders faxed over w recent clinical notes to readmit pt into care.Please advisethank you 13298-5Bbsbkgmtb encounter OtopJO7059-38-78V66:14:03Telephone encounter NoteTXT1.2.840.662853.1.13.104.2.7 .2.034405|1408783916LBXauymietb for patient kbiv17644-5KhefADBIMKIXZPZQfefnjrb d C-CDA narrative emnf315883901Bqkys Bigg Carranzaanabell[address]TXTX[address] 71QGWUCWWYVRGNISPWKXTLEI8417-52-77 T13:14:031.2.840.809313.1.72.3.15| 1.2.840.960144.1.13.104.2.7.2.7278 79_[id number] Luis Alberto Crenshaw [facility] 2023-02-16 06:28:02 qDuc+D5OkDfKBqkkNx375EeXqdNbgjYxCl KGicjwVe85bL3fkNxJy6z1Et0VKgF61719 -01-02T06:28:02 [place] [address]-2Ormzoovjl encounter TosmZU1620-37-13G90:28:08Telephone encounter NoteTXT1.2.840.660614.1.13.104.2.7 .2.776516|0434681233XNDkjlouqlr for patient cafd07684-7RgamVDQADRAWDDFHntvltkl d C-CDA narrative text[address]TXTX[address] 84FVBNEYDAXRGPZZLIYUQVRT7998-46-80 T06:28:081.2.840.385630.1.72.3.15| 1.2.840.005138.1.13.104.2.7.2.7278 79_[id number] [facility] 2023-02-11 15:59:32 r2V4wD47cEh/lFEbfWAYKzkSpeQAFL6iOM ZxVJ3x961QIFNZmKxyxFlUxDCtUiid0833 -12-28T15:59:32 Please review and advise. 14251-9Efqjgkhtp encounter LbqrSQ9352-78-79S60:59:41Telephone encounter NoteTXT1.2.840.981050.1.13.104.2.7 .2.332788|6209514102MRJwnacxler for patient tdrp42736-7CqufPFSKKTIRNMPLfjigtas d C-CDA narrative textUT[address] UdmqJgjkffjkvCetwxeupzVEER69738808 48TGLPEQVZPKLFZXVHNLNWWZ6860-01-42 T15:59:411.2.840.713085.1.72.3.15| 1.2.840.524028.1.13.104.2.7.2.7278 79_[id number] [facility] 2023-02-11 15:54:05 KsjSUkBinuVorAp16sq3uWCphL+Bh9nHAK 8XoTvsV7GgEYntE18lcbosII6s35Hg8973 -12-28T15:54:05 Nichol Liao is a 87 year old male and Meme with [facility] is calling needing new orders faxed over with most recent clinical notes to readmit pt into care at the start of the year. Pt was discharged due to insurance coverage, but is switching to [facility] PVA plan. Wpv: [phone] signed by Yenni High at 02/11/2023 3:57 PM KWA61790-2Seaarhrea encounter TxuoIU0091-07-96C83:57:57Telephone encounter NoteTXT1.2.840.439407.1.13.104.2.7 .2.067881|0657270590XQEmpmqoisf for patient ntxq58821-6BmqyOKFYLXYRSPBFxtmrfll d C-CDA narrative xfsq02867583Qvagxnb S [address] 33WBUJHFWSADJYAIYUCTCPHK4841-16-45 T15:57:571.2.840.850575.1.72.3.15| 1.2.840.861417.1.13.104.2.7.2.7278 79_[id number] Yenni Crandall [facility] 2022-11-03 08:14:42 x1cjZDOzVTsYSkQqXqd4cxT2SxkEqLRCgo /awb9puoVxXGUGLFjX2vEyX/chBBkD31082022T08:14:42 Images from the original note were not included.Refill approved per cardiology protocol:Antilipid: Sterol Transport Inhibitors Passed 11/03/2022 06:56 AM Protocol Details Valid encounter within last 12 months AST in normal range and within 360 days ALT in normal range and within 360 days HDL within 360 days LDL within 360 days Total Cholesterol within 360 days Triglycerides within 360 days 57417-6Barjgznwm encounter VqkaOF3797-44-02I39:14:42Telephone encounter NoteTXT1.2.840.137072.1.13.104.2.7 .2.104121|4091551581MFXnprrsqce for patient tibg47793-6EfilJY591199839Wnnyanpe e D Garcia [address] 15GQVEQIPRQIIOKMHDDUVGPN1767-10-13 T08:14:421.2.840.790221.1.72.3.15| 1.2.840.234068.1.13.104.2.7.2.7278 [id number] Hailee Adam Dumont MA [facility] 2022-10-30 13:14:18 JViXEahnOiFD6J1gK9lzciblgdZlIzMwg2 EwpS5Dc7ata51gC9FIFMeRVrDlWFEJ6562 -09-15T13:14:18 Order for Hoyerlift placed with [facility]. Notified ENRIQUE Monk. She verbalized understanding. Adelaide Bentley LVN 10/30/2022 1:14 PM 17585-3Bmoknunfu encounter AnrtWE7406-61-00O31:17:44Telephone encounter NoteTXT1.2.840.088130.1.13.104.2.7 .2.502220|[id number] for patient hbsk29594-7GhgdQK084084998Nidsjkt M Fisher [address] On[id number] 10KAZGRCYHJGWDZJMJNTQDPG1256-20-74 T13:17:441.2.840.172940.1.72.3.15| 1.2.840.960725.1.13.104.2.7.2.7278 [id number] Adelaide Bentley [employer] [facility] 2022-10-29 16:20:11 5cF+2hoPwVUMkWDjIu4w4DkwqFyEs4+73o RqcWXxnotc24DXuwMmLOmnAZ7Wct3Z9961 -09-14T16:20:11 Pt daughter is calling says the Ana Cristina Lift still has not been completed [facility] is saying they do not have information they need from clinic. She want clinic to call [facility]#[phone] fax#[phone] signed by Elidia Marie at 10/29/2022 4:23 PM KSA09119-3Kbnibuaov encounter NghyDK0921-73-92T68:23:02Telephone encounter NoteTXT1.2.840.586074.1.13.104.2.7 .2.217113|[id number] for patient hxda08207-0HzpbSP413687915Tzodp[id number] 76DCDODDDLUYPUCWQGHVJJUL5761-88-45 T16:23:021.2.840.558869.1.72.3.15| 1.2.840.080953.1.13.104.2.7.2.7278 [id number] Elidia Frank [facility] 2022-10-28 06:27:15 ub78NqIk3hk0ZtE02tLWGWZbYoyZVmG+RN oYlQItCKl9yOFjPMmILFKGimXOkf2g8920 -09-13T06:27:15 [place] [address]-5Tzjtvrqzs encounter WjvzQB7306-11-53E65:27:26Telephone encounter NoteTXT1.2.840.996998.1.13.104.2.7 .2.555041|7977590826LRRhpsbkdef for patient ewyl10911-5AywrIQQJUDHNSP[id number] 81GGWDTGGWAONVANFDVEKOES0418-78-93 T06:27:261.2.840.814194.1.72.3.15| 1.2.840.281537.1.13.104.2.7.2.7278 79_[id number] [facility] 2022-10-27 14:07:09 w+3AY6IqVITvjKjo0BnX8ZNkAOs13aLGcp dUkEaX4VF/9uU+u29fm8RsHNmZO7Ni7283 -09-12T14:07:09 Nichol Liao is a 87 year old maleJacob with [facility] calling to report Patient had a fall about 1pm landed on his back, RT shoulder . at the time PT refuses to be seen UC,Patient states he will keep an eye on pain, no noticeble injuryPlease -[phone] (home) 39411-8Pckncnssu encounter JikiOU1058-76-46A05:10:32Telephone encounter NoteTXT1.2.840.433411.1.13.104.2.7 .2.509699|6584226709HXEfcibnbkc for patient ztjw16305-3JtyhYX488258442Yayg A [address] LtpmXtcdbajvgJpcdxtqgwQKQJ73465351 43DXWOKGSWAIIGEFUSSTAWBF3606-07-44 T14:10:321.2.840.504913.1.72.3.15| 1.2.840.795414.1.13.104.2.7.2.7278 [id number] Khushi Danielson [facility] 2022-10-08 10:28:26 fpWORl3PJUbiFC83M3BqX8XRjOkYaP8o41 aXMO8AvApauiUfLbBxDuqg2fQQfhJs6140 -08-24T10:28:26 Spoke to Yusra with [facility] to let her know re-cert for group home is approved per dr. Dawson verbal okay. She verbalized understanding. Adelaide Bentley LVN 10/08/2022 10:29 AM 33447-9Sahtgpikq encounter MatdOO1862-87-25N52:29:23Telephone encounter NoteTXT1.2.840.280727.1.13.104.2.7 .2.332902|4730432694IRVrctpedyh for patient pzdj51611-9BaavLH939455840Ogilllb M Fisher [id number] 67YEJTBMCXMRZAFENTRUSYOI2598-61-18 T10:29:231.2.840.286898.1.72.3.15| 1.2.840.851179.1.13.104.2.7.2.7278 79_[id number] Adelaide Bentley [facility] 2022-10-08 10:13:21 j5o4SrFPdgaM78ifad3vKcjC8WkhV9cBlR tOkwq1/sBkQ1lkl6eSQ6/MPTERKVgQ9706 -08-24T10:13:21 [place] [address]-4Ljqqpfpsc encounter SahwQZ2745-08-56O60:13:27Telephone encounter NoteTXT1.2.840.998544.1.13.104.2.7 .2.378968|4036659393QJHennyctuc for patient omcm44203-2SrmqUYYDJKFXYQ[id number] 80LGUNPLSLMXDZZCZULIIMVB0423-47-57 T10:13:271.2.840.374866.1.72.3.15| 1.2.840.449071.1.13.104.2.7.2.7278 79_[id number] [facility] 2022-10-08 09:27:02 DEMLXbuGle3lzUGYlCf84uKQBVGgMWIozK dlokdLhIFFOtU+WdmjQkEJe4t/b3za3069 -08-24T09:27:02 Yusra calling from [facility] to get verbal order for adding skilled nurse to home health plan for this patient 94837-8Udlhjhtts encounter UeyxSK0333-81-69G70:30:02Telephone encounter NoteTXT1.2.840.390005.1.13.104.2.7 .2.028201|3095272654PEHtseifmsc for patient reif31611-2IymvWQ464312394Mbttd [address] KsvbGvxjawvkzPpkossregPKNS31039170 76WTOFOIGGIGVXAVZXOJCHSI9628-39-96 T09:30:021.2.840.516152.1.72.3.15| 1.2.840.960921.1.13.104.2.7.2.7278 [id number] [facility] 15:34:39 DzWKC5VYp9afXW9crnZRB7sVhdpwxRmqrj 0MHivRlCNZgCHBzFft6hN+v0Occh0I2084 -08-23T15:34:39 Refill denied - med was d/c CHAIM note : He reports that he started rivastigmine patch and it caused him to have profuse diarrhea. He discontinued the medication and does not desire to start any new memory loss medications at this time.Requested Prescriptions Refused Prescriptions Disp Refills RIVASTIGMINE 4.6 mg/24 hour patch [Pharmacy Med Name: RIVASTIGMINE 4.6 MG/24HR PATCH] 30 Patch 0 Sig: APPLY 1 PATCH TO SKIN IN THE MORNING FOR 30 DAYS. Refused By: BEATRIZ HIGH Reason for Refusal: Refill not appropriate 62441-6Ccepfkysg encounter FxjuQF2707-26-30J33:35:47Telephone encounter NoteTXT1.2.840.517860.1.13.104.2.7 .2.146784|[id number] for patient ulgi86224-7JhpfFJHMQXIZXB[id number] 88OKVHCWQOXYGUVCSNBZHMYW4161-70-40 T15:35:471.2.840.477798.1.72.3.15| 1.2.840.864384.1.13.104.2.7.2.7278 [id number] [facility] 2022-10-06 07:09:23 B6YJ9NIHOnABtjKGKpJUeSexjd3tswiBsu XSgeRrl2vfDQLCdMwCQpFhbrHoCm834539 -08-22T07:09:23 Message from [employer]:Refills have been requested for the following medications: hydrALAZINE 50 mg tablet [Philip Dawson]Preferred pharmacy: [id number] [place] [address] AT [facility] [address] [facility] method: Pickup 38801-6Dpncqaxrw encounter QmppGM8948-27-73P91:09:23Telephone encounter NoteTXT1.2.840.527304.1.13.104.2.7 .2.660771|[id number] for patient pkke37829-6UvkpHHZLISFKEX[id number] 21NIWEIEYDQCFTIMSMHDDPHS9072-54-36 T07:09:231.2.840.999057.1.72.3.15| 1.2.840.921251.1.13.104.2.7.2.7278 [id number] [facility] 2022-09-24 09:20:18 Dycd6Dr1IWxfuP0PiKn7kf7Y3yvB1sGuMj tuQGKRkIK0ZhCFt0jmxBUztZHgRTWN1283 -08-10T09:20:[address] Beaulieu 79497-3Appcaenbg encounter FhlfCD7318-87-55U99:20:29Telephone encounter NoteTXT1.2.840.470048.1.13.104.2.7 .2.733317|[id number] for patient [id number] A Roller RN[address] Se[id number] 38XLQMHNYVFOYXCUTFDWVZHF4418-59-46 T09:20:291.2.840.914540.1.72.3.15| 1.2.840.961629.1.13.104.2.7.2.7278 [id number] Lesly Callaway RN [facility] 2022-09-24 09:11:47 BETvwncBhnAbC5r2kxW2dokONWIVeurvwD 9hyoUQB4UpsCsJhFbFUqSTlnQYGLqC7304 -08-10T09:11:47 Nichol Liao is a 87 year old male. Patient son called stating that he will not be able to go with the patient but the care center manager will be there with the patient.He just would like to leave a message to Dr. 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 Please call son in case of any questions or notification to: [phone] signed by Shelley Khanna V at 09/24/2022 9:18 AM AXH76577-7Whiizuhcu encounter VlydQR9681-24-40Q79:18:23Telephone encounter NoteTXT1.2.840.209220.1.13.104.2.7 .2.849238|[id number] for patient edip93799-9UdnsGK167447574Pvshmem Tsuruta Moreno [id number] 52OBDIJTGOCACJPGSLBHBTGL3095-06-19 T09:18:231.2.840.854108.1.72.3.15| 1.2.840.558627.1.13.104.2.7.2.7278 [id number] Shelley [facility]illon [facility] 2022-09-09 09:21:27 W5nFLKv8uJ9Z63fMoudKWmTmmxYBhWjlVQ Fbrx79ZFp3OUbmRGVXIfxGhUwJT9FN4498 -07-26T09:21:27 Chart notes have been faxed to [facility]. 03236-5Fqhhmttft encounter MxiiMZ8709-47-64F06:21:49Telephone encounter NoteTXT1.2.840.468707.1.13.104.2.7 .2.931477|[id number] for patient [id number] J Medina [id number] 60DQWSRIFNQCBRUIFENAPQDW4344-32-28 T09:21:491.2.840.788926.1.72.3.15| 1.2.840.156970.1.13.104.2.7.2.7278 [id number] Taniya Mcallister MA [facility] 2022-09-08 13:44:59 lOBwCoBDyJGDgkKah1lDYU6W615Jd2lnDm telmZgsK/Nwt0VQUe4TpTf+M7zRHJZ0691 -07-25T13:44:59 Received "Episode Detail Report".Placed in provider box for review. 68097-8Vekojxuzk encounter YxgfVF4794-02-12Y13:45:59Telephone encounter NoteTXT1.2.840.104585.1.13.104.2.7 .2.740212|[id number] for patient cdqu75983295Rbdmepol M [id number] 06PWEVIJVWTBICDEPVJBRRTV3298-78-54 T13:45:591.2.840.147556.1.72.3.15| 1.2.840.924579.1.13.104.2.7.2.7278 [id number] [facility] 10:15:20 UZJvCwabTFUM8uFpOCZ1qSRQSZheprG270 BY5WjrdZDR25Ijr78xc+3GVUMJ/6759170 T10:15:20 What do we need to do for this 10172-7Npaaegdim encounter GzjqPI2261-94-27M09:15:41Telephone encounter NoteTXT1.2.840.642521.1.13.104.2.7 .2.149266|[id number] for patient [id number] 53AEXMICDLYDTKOCNSJDEHPL8435-99-89 T10:15:411.2.840.717834.1.72.3.15| 1.2.840.980515.1.13.104.2.7.2.7278 [id number] [facility] 2022-09-08 09:10:50 LEHSh28GC3trwN9Q8cvdfQVCsDmjeea8lQ hpzpOISt/SSwnodoN6tNYbIx6Hm5cY8409 -07-25T09:10:50 Patients daughter is calling in stating that since April [facility] has been faxing requesting clinicals so that patient can receive Ana Cristina Lift due to no response [employer] has closed encounter/case but patient is in desperate need of supplies.Please advise and fax notes to [phone] signed by Hal Dumont at 09/08/2022 9:14 AM QIX33391-7Igspawgnw encounter WdmcGI1571-79-48N83:14:02Telephone encounter NoteTXT1.2.840.921455.1.13.104.2.7 .2.326660|[id number] for patient gjzp697894043Gjtevaagnjo S Garcia[address] PvkfOhnamnjidFmpcdupvqIYHF11162364 86GDJZBERQRQNFWFKQLZXMIB9793-69-45 T09:14:021.2.840.316960.1.72.3.15| 1.2.840.482945.1.13.104.2.7.2.7278 [id number] Hal Dumont [facility] 2022-09-06 16:29:55 3bvs8bBA2Xqlri/J1sNh8c1Qjy2Jb7/NVv h89aOK52khoVAQNe69hwlYO5WWTAQl9815 -07-23T16:29:55 Will lower his Metformin dose to 500 mg daily from 1000 mg daily.For his age, he his managing his Diabetes well. Please start taking Metformin 500 mg daily. 64469-5Gclvpgpzm encounter GevzFR1630-54-31U40:32:33Telephone encounter NoteTXT1.2.840.543107.1.13.104.2.7 .2.110118|[id number] for patient care[id number] 58JBGLJIGIHCMEGHRYHCEQGK9313-81-03 T16:32:331.2.840.517470.1.72.3.15| 1.2.840.775415.1.13.104.2.7.2.7278 [id number] [facility] 2022-09-06 13:23:55 cyapfj4aC7xmkJ1UqIsnCRnPUIhLgGtoHw JoP+g1iXj9xphMlqpzDPprE7qfLJLq1726 -07-23T13:23:55 Please advise, NOV: 03/05/23LOV: 09/01/22Requesting refill on Metformin but patient has been taking 2 tablets a day. Ok to for for 2 tablets or fill for 1 a day? 06280-0Xiyelhpyz encounter TqbwTO0952-29-95Z53:25:14Telephone encounter NoteTXT1.2.840.462395.1.13.104.2.7 .2.386003|[id number] for patient hbwr651490989JheqqkBeatriz Pérez RN[address] [id number] 14ZRTOCTZQRTBJFXAZUCLWJO1173-90-80 T13:25:141.2.840.804095.1.72.3.15| 1.2.840.887196.1.13.104.2.7.2.7278 [id number] Beatriz Pérez RN [facility] 2022-09-05 06:14:33 OCvbcFQU71myaB//GCdzgZPJHdeulxHOuy HwOKtZvUTU8Ks7MKDb31UM8XZYnZpd9521 -07-22T06:14:33 NOV: 03/05/23LOV: 09/01/22Refill sent 27132-2Egughrbps encounter MgmlAL2141-78-56R96:15:30Telephone encounter NoteTXT1.2.840.290546.1.13.104.2.7 .2.858276|[id number] for patient [address] RfwqCbtqzxzojXykdrnywsTMHF86157312 43DCAGXSQKISPXCRFYQCJQNW6979-91-19 T06:15:301.2.840.803074.1.72.3.15| 1.2.840.612089.1.13.104.2.7.2.7278 [id number] [facility] 2022-09-01 11:45:00 KCAuJ4sBlDx9tvwDtDXNA0bOV0SjVaC8GA lNM2+8IC5uko6jc3DErFH31GmWxgL78800 -07-18T11:45:00 Images from the original note were not included.Venipuncture collection performed by clean technique on the right anticubitus. Total of 1 attempts were made. Slight pressure and a bandage/dressing were applied to the site(s). The patient experienced no complications. The following specimens were processed according to instructions and sent to [facility] laboratories per lab order on LT BLUE SST RED LAV 1 PPT DK GREEN (LiHep) DK GREEN (SodH) MONTENEGRO DK BLUE (K2) DK BLUE (S) ACD Blood Culture NIPT/NTD Unpreserved Urine Culture Aptima tube Other urine 22851-4Pvety RrhwZW1148-50-03I74:34:17Nurse NoteTXT1.2.840.478442.1.13.104.2.7 .2.671095|[id number] for patient [id number] 89SKIJKZIIYUSQRLGVCAULED6281-53-58 T12:34:171.2.840.205265.1.72.3.15| 1.2.840.365884.1.13.104.2.7.2.7278 [id number] [facility] 2022-09-01 11:45:00 j7Y4VatCJm53QtlTC2y7dLZHvbbsnrDhu4 0Iy+SbuB68jHv3GMzd5eOxN4iM8FL/2022T11:45:00 Patient provider will bring specimen back later today 81526-8Gcmcz XqwsQF5381-38-14I17:30:51Nurse NoteTXT1.2.840.774141.1.13.104.2.7 .2.894312|[id number] for patient [id number] 02HVMDQJRBCQPLVONNUPUUYZ7046-13-58 T12:30:511.2.840.054716.1.72.3.15| 1.2.840.344346.1.13.104.2.7.2.7278 [id number] [facility] 2022-06-11 09:00:00 gjJvjf73CE1TTN6K6nKadBKKLIgAr1Btio ZM/i8BCzRdy2kLzXfyQzUn17M9gOLV5779 -04-27T09:00:00 Images from the original note were not included.Venipuncture collection performed by clean technique on the left anticubitus. Total of 1 attempts were made. Slight pressure and a bandage/dressing were applied to the site(s). The patient experienced no complications. The following specimens were processed according to instructions and sent to [facility] laboratories per lab order on today: LT BLUE SST RED LAV PPT DK GREEN (LiHep) DK GREEN (SodH) MONTENEGRO DK BLUE (K2) DK BLUE (S) ACD Blood Culture NIPT/NTD 89263-6Ciotb KdexXJ7967-74-39X71:07:02Nurse NoteTXT1.2.840.748426.1.13.104.2.7 .2.243516|[id number] for patient [address] Da[id number] 31TSTSITHTWDGKKOQIHNXSWJ1634-03-20 T09:07:021.2.840.746940.1.72.3.15| 1.2.840.091269.1.13.104.2.7.2.7278 [id number] [facility] 2022-06-11 09:00:00 /prAwD7TEKutVy9PD6Fq+uUDws8/TyOXWn P5u2LVPvl0gji1+zkQNSIpDoDmi+cP04012022T09:00:00 Patient unable to use the bathroom at this time. Home health aide will bring specimen back later today. 45198-6Zqeyu RcakID1813-27-79A77:07:02Nurse NoteTXT1.2.840.519253.1.13.104.2.7 .2.449186|[id number] for patient [address] CvvzEbzoaufdzWzdigzgodNQQH29506063 90XZXOIITHANSGGHKGJGJGQP6762-70-18 T09:07:021.2.840.072171.1.72.3.15| 1.2.840.290749.1.13.104.2.7.2.7278 [id number] [facility]
--- NOTE | 2023-07-12 16:47 | RAD REPORT ---
EXAM DESCRIPTION: RAD - Chest Single View - 07/12/2023 4:40 pm CLINICAL HISTORY: cpr COMPARISON: <Comparisons> FINDINGS: Lines: Endotracheal tube at the aortic arch in satisfactory position. Enteric tube below t he diaphragm and terminates overlying the stomach. Lungs: No evidence of edema or pneumonia. Pleural: No significant pleural effusions or pneumothorax. Cardiac: Similar size and configuration Mediastinum: Within normal limits. Bones: No acute fractures. Other: Defibrillator pads present. IMPRESSION: No acute cardiopulmonary disease. Support apparatus in satisfactory position.
[2023-07-12 16:53] LABS: Absolute Basophils 0.1 K/uL (0-0.5); Absolute Eosinophils 0.3 K/uL (0-0.5); Absolute Lymphocytes (CBC) 4.8 K/uL (0.7-4.9); Absolute Monocytes 0.6 K/uL (0.1-1.3); Basophils % 0.5 % (0-1.3); Hematocrit 37.2 % (39.6-49.0); Hemoglobin 12.1 g/dL (13.6-17.9); Lymphocytes % 37.5 % (15.3-44.8); MCHC 32.5 g/dL (32.0-36.0); MCV 95.5 fL (80-100); MPV 8.9 fL (7.6-11.3); Monocytes % 4.8 % (3.3-12.3); Neutrophils % 55.2 % (41.7-73.7); Nucleated Red Blood Cells % 0.1 % (0-0); Platelets 157 thou/uL (152-406); Red Cell Distribution Width 16.1 % (12.1-15.2)
[2023-07-12 16:53] LABS: Arterial Blood Carboxyhemoglob 0.7 % (0-1.5); Blood Gas Oxyhemoglobin 96.3 % (94-97); Blood O2 Saturation 99.1 % (92-98.5)
[2023-07-12] MEDS ORDERED: FENTANYL CITR 100 MCG/2 ML ONE (17:01)
[2023-07-12] MEDS ORDERED: NA CHLORIDE 0.9% 50 ML ONE (17:01)
[2023-07-12 17:06] LABS: PT Prothrombin Time 10.9 SECONDS (9.5-12.5); PTT, Activated Partial Thromb 23.8 SECONDS (24.3-36.9); Protime INR 0.99
[2023-07-12 17:16] LABS: Albumin 2.7 g/dL (3.4-5.0); Albumin/Globulin Ratio 0.7 (1.1-1.8); Bilirubin Direct 0.2 mg/dL (0-0.2); Bilirubin Indirect, Calculated 0.2 mg/dL (0.2-0.8); Bilirubin Total 0.4 mg/dL (0.2-1.0); Globulin 3.7 g/dL (2.3-3.5); Magnesium 2.2 mg/dL (1.6-2.4); Protein, Total 6.4 g/dL (6.4-8.2); Troponin High Sensitivity 24.2 pg/mL (<58.9)
--- NOTE | 2023-07-12 18:38 | ER ---
Nurse's Notes [facility] Name: Romeo Nampa Age: 87 yrs Sex: Male : 1935 Arrival Date: 07/12/2023 Time: 15:59 Bed 4 Private MD: Diagnosis: Cardiac arrest;Third-degree heart block;Acute respiratory failure Presentation: 07/11 15:55 Chief complaint: EMS states: "pt was sitting in chair and stated he needed to use mb9 restroom. Upon standing, family saw pt fall and start having seizure like activity for 3-4 minutes. No central pulses were palpated, rhythm was PEA and CPR started. Administered 4 rounds of Epinephrine, Bicarb, and Amiodarone via 20 g to left wrist. ROSC was obtained.". 15:55 Coronavirus screen: At this time, the client does not indicate any symptoms associated mb9 with coronavirus-19. Ebola Screen: Unable to complete the Ebola screening because:. 16:03 Initial Sepsis Screen: Does the patient meet any 2 criteria? No. Patient's initial 1 sepsis screen is negative. Does the patient have a suspected source of infection? No. Patient's initial sepsis screen is negative. Risk Assessment: Do you want to hurt yourself or someone else? Patient reports no desire to harm self or others. 16:03 Acuity: SHAYLEE 1 ll1 16:03 Method Of Arrival: EMS: [facility] 16:39 Onset of symptoms was July 12, 2023. 9 Triage Assessment: 16:31 General: Appears ill, Behavior is unresponsive. Pain: Unable to use pain scale. Patient mb9 is unresponsive. EENT: No signs and/or symptoms were reported regarding the EENT system. Neuro: Level of Consciousness is unresponsive. Cardiovascular: Heart tones S1 S2 present Rhythm is sinus bradycardia. Respiratory: Airway is compromised. GI: Abdomen is round distended, Bowel sounds present X 4 quads. : No signs and/or symptoms were reported regarding the genitourinary system. Derm: Skin is fragile, is thin, Skin is dry, Skin is pale, Skin temperature is cool. Musculoskeletal: Range of motion: limited in all extremities. Historical: - Allergies: 15:57 No Known Allergies; ll1 - PMHx: 15:57 diabetes mellitus; High Cholesterol; HTN; over active bladder; ll1 - PSHx: 15:57 back; neck; ll1 - Immunization history:: Adult Immunizations up to date. - Infectious Disease History:: Denies. - Social history:: Smoking status: unknown. - Family history:: not pertinent. Screenin:39 [facility] ED Fall Risk Assessment (Adult) History of falling in the last 3 months, mb9 including since admission No falls in past 3 months (0 pts) Confusion or Disorientation No (0 pts) Intoxicated or Sedated Yes (3 pts) Impaired Gait Yes (1 pt) Mobility Assist Device Used No (0 pt) Altered Elimination Yes (1 pt) Score/Fall Risk Level 3 or more points = High Risk Oriented to surroundings, Maintained a safe environment, Educated pt \\T\\ family on fall prevention, incl call for assistance when getting out of bed, Assessed \\T\\ reinforced patient's understanding of fall precautions. Abuse screen: Denies threats or abuse. Nutritional screening: No deficits noted. Tuberculosis screening: No symptoms or risk factors identified. Assessment: 16:40 Reassessment: see triage assessment. mb9 17:05 Reassessment: Dr. Paul at bedside speaking with family. mb9 17:05 Reassessment: No changes from previously documented assessment. mb9 17:27 Reassessment: Assisted Dr. Paul with extubation of ET and NG tube. Dopamine drip mb9 stopped and Fentanyl Drip continued for pt comfort. Family at bedside. 18:00 Reassessment: No changes from previously documented assessment. Patient and/or family mb9 updated on plan of care and expected duration. Pain level reassessed. 19:24 General: Pt's family member is at the bedside. Pt has a fentanyl drip running at 50 kd3 mcg/ hr. Pt respirations are snoring/grunting with low O2. Family member states that he just spike with a doctor regarding an order to "help him breath easier" but he does not want to prolong the process. . Neuro: Level of Consciousness is unresponsive. Respiratory: Airway is patent Respiratory effort is labored, with nasal flaring, Respiratory pattern is snoring. 21:23 Reassessment: Patient appears in no apparent distress at this time. No changes from bm8 previously documented assessment. Patient and/or family updated on plan of care and expected duration. Pain level reassessed. Respiratory: Airway is patent Respiratory effort is labored, with nasal flaring, Respiratory pattern is hypoventilation snoring. Vital Signs: 15:55 BP 131 / 101; Pulse 28; Resp 18; Pulse Ox 100% on Ambu bag; mb9 16:05 BP 171 / 134; Pulse 31; Resp 18; Temp 97.5(Ca); Pulse Ox 100% on ETT vent; Weight 99.79 mb9 kg; Height 5 ft. 10 in. ; 16:10 BP 102 / 49; Pulse 42; Resp 18; Pulse Ox 100% on ETT vent; mb9 16:14 BP 93 / 30; Pulse 32; Resp 18; Pulse Ox 100% on ETT vent; mb9 16:20 BP 137 / 63; Pulse 85; Resp 18; Pulse Ox 100% on ETT vent; mb9 16:25 BP 133 / 69; Pulse 97; Resp 18; Pulse Ox 100% on ETT vent; mb9 16:35 BP 113 / 65; Pulse 85; Resp 18; Pulse Ox 100% on ETT vent; mb9 16:50 BP 74 / 61; Pulse 72; Resp 18; Temp 98.4(Ca); Pulse Ox 100% on ETT vent; mb9 17:05 BP 92 / 47; Pulse 75; Resp 18; Pulse Ox 98% on ETT vent; mb9 17:34 BP 90 / 46; Pulse 55; Resp 20; Pulse Ox 88% on R/A; mb9 17:54 BP 61 / 42; Pulse 98; Resp 28; Pulse Ox 84% ; ko1 18:11 BP 61 / 40; Pulse 88; Resp 30; Pulse Ox 85% ; ko1 18:49 BP 80 / 50; Pulse 84; Resp 24; Pulse Ox 86% on R/A; mb9 18:58 BP 90 / 49; Pulse 85; Resp 14; Pulse Ox 85% ; ko1 19:16 BP 101 / 50; Pulse 72; Resp 12; Pulse Ox 87% on R/A; kd3 21:23 BP 110 / 54; Pulse 94; Resp 8; Temp 98.4; Pulse Ox 78% on R/A; bm8 16:05 Body Mass Index 31.57 (99.79 kg, 177.8 cm) mb9 ED Course: 15:55 Arm band placed on Patient placed in an exam room, on a stretcher. ll1 16:00 Placed in gown. Bed in low position. Call light in reach. Side rails up X2. Client mb9 placed on continuous cardiac and pulse oximetry monitoring. NIBP monitoring applied. chief controller on. 16:00 EKG done, by ED staff. mb9 16:00 Maintain EMS IV. Dressing intact. Good blood return noted. Site clean \\T\\ dry. Gauge \\T\\ mb 9 site: 20g left wrist. 16:01 Patient arrived in ED. ll1 16:03 Triage completed. ll1 16:05 Assisted provider with intubation using 8.0 mm ETT via oral route. ET tube secured at mb9 28cm at the teeth. Set up intubation tray. Intubated by Robel Paul MD Placement verified by CO2 detector w/ + color change, auscultating bilateral breath sounds, End-tidal CO2 montioring CXR, Patient tolerated well. 16:08 NGT: inserted 14 Fr. via left nare. verified placement of air over stomach, verified mb9 return of gastric contents, Placement verified by X-ray, to intermittent suction. Patient tolerated well. 16:22 Assisted provider with central line placement. Set up central line tray. Triple lumen mb9 line placed in right femoral. Line placed by Robel Paul MD Placement verified by CXR, blood return, Dressed with 4X4s, Tegaderm, Patient tolerated well. 16:26 Khushi White RN is Primary Nurse. mb9 16:31 Robel Paul MD is Attending Physician. rt 16:40 Rivera cath inserted, using sterile technique, 16 Fr., by nm, returned clear yellow mb9 urine. Patient tolerated well. 16:41 XRAY Chest (1 view) In Process Unspecified. EDMS 18:36 Raúl Machado MD is Hospitalizing Provider. rt 21:23 Provided Education on: need for admission. bm8 21:23 Patient admitted, IV remains in place. bm8 Administered Medications: 17:34 Discontinued: DOPamine 5 mcg/kg/min IV at calculated rate Per protocol mb9 16:02 Drug: Atropine IVP 1 mg IVP once Route: IVP; Site: left wrist; mb9 17:14 Follow up: Response: No adverse reaction mb9 16:02 Drug: Lactated Ringers Solution IV 1000 ml IV at 999 ml/hr continuous Route: IV; Rate: mb9 999 ml/hr; Site: left wrist; 21:35 Follow up: Response: No adverse reaction; IV Status: Completed infusion; IV Intake: bm8 1000ml 16:13 Drug: Atropine IVP 1 mg IVP once Route: IVP; Site: left wrist; mb9 17:14 Follow up: Response: No adverse reaction mb9 16:17 Drug: DOPamine 5 mcg/kg/min IV at calculated rate Per protocol Route: IV; Rate: mb9 calculated rate; Site: right femoral; 21:35 Follow up: Response: No adverse reaction; IV Status: Order to discontinue infusion bm8 16:44 Not Given (Physician Discretion): DOPamine 0.5 mcg/kg/min IV at mcg/kg/min continuous mb9 17:09 Drug: fentaNYL (PF) IV 25 mcg/kg/h IV at calculated rate See Administration mb9 Instructions; (Standard concentration 500 mcg / 50 mL NS [10 mcg / 1 mL); Recommended max rate 4 mcg/kg/hr; Titrate 0.25 mcg/kg/hr as often as every 3 minutes to achieve goal (see titration policy); Goal parameter RASS score 0 to -2 Route: IV; Rate: calculated rate; Site: left wrist; 21:24 Follow up: Response: No adverse reaction; IV Status: Infusion continued upon admission bm8 Medication: 16:39 VIS not applicable for this client. mb9 Intake: 21:35 IV: 1000ml; Total: 1000ml. bm8 Outcome: 18:37 Decision to Hospitalize by Provider. rt 21:34 Admitted to Med/surg accompanied by nurse, via stretcher, room 222, with chart, Report bm8 called to simon arellano 21:34 Condition: stable 21:34 Instructed on the need for admit, Demonstrated understanding of follow-up care, 22:09 Patient left the ED. jb4 Signatures: Dispatcher [employer] EDMS Juan Vega RN RN jb4 Aniya Varma RN RN Milena Blood RN RN kd3 Kaylee Sadler, SIMON RN Khushi Bauer RN RN mb9 Robel Paul MD MD rt Cesar Ford RN RN bm8 Corrections: (The following items were deleted from the chart) 16:42 16:05 BP 171 / 134; Pulse 31bpm; Resp 18bpm; Pulse Ox 100% ET / Ventilator; mb9 mb9 16:43 16:05 BP 171 / 134; Pulse 31bpm; Resp 18bpm; Pulse Ox 100% ET / Ventilator; Temp 97.5F mb9 Catheter; mb9 16:44 16:17 DOPamine 49.895 mcg/min IV at mcg/kg/min in left forearm mb9 mb9 16:46 16:22 Assisted provider with central line placement. Set up central line tray. Triple mb9 lumen line placed in left femoral. Line placed by Robel Paul MD Placement verified by CXR, blood return, Dressed with 4X4s, Tegaderm, Patient tolerated well. mb9 18:49 18:49 BP 80 / 50; Pulse 84bpm; Resp 18bpm; Pulse Ox 86% RA; mb9 mb9 19:15 17:27 Reassessment: Assisted Dr. Paul with removal of ET and NG tube. Dopamine mb9 drip stopped and Fentanyl Drip continued for pt comfort. Family at bedside. mb9
--- NOTE | 2023-07-12 18:38 | EDPHYS ---
Physician Documentation [facility] – [place], [place] Name: Romeo Liao Age: 87 yrs Sex: Male : 1935 Arrival Date: 07/12/2023 Time: 15:59 Bed 4 Private MD: ED Physician Robel Paul HPI: 07/11 18:07 This 87 yrs old Male presents to ER via EMS with complaints of Altered Mental Status, rt CPR - s/p. 18:07 Patient presents to the ED with cardiac arrest. Patient was reportedly in his usual rt state of health, when he lost consciousness, had reported seizure-like activity. The paramedics arrived, patient was in cardiac arrest, rhythm was noted to be PEA. ROSC was obtained just prior to arrival. No further history could be obtained, symptoms are severe in severity, no other aggravating alleviating factors.. Historical: - Allergies: 15:57 No Known Allergies; ll1 - PMHx: 15:57 diabetes mellitus; High Cholesterol; HTN; over active bladder; ll1 - PSHx: 15:57 back; neck; ll1 - Immunization history:: Adult Immunizations up to date. - Infectious Disease History:: Denies. - Social history:: Smoking status: unknown. - Family history:: not pertinent. ROS: 18:07 Unable to obtain ROS due to obtunded state, rt Exam: 18:07 Head/Face: Normocephalic, atraumatic. Chest/axilla: Normal chest wall appearance and rt motion. Nontender with no deformity. No lesions are appreciated. Abdomen/GI: Soft, non-tender, with normal bowel sounds. No distension or tympany. No guarding or rebound. No evidence of tenderness throughout. Skin: Warm, dry with normal turgor. Normal color with no rashes, no lesions, and no evidence of cellulitis. 18:07 Constitutional: The patient appears Unresponsive, agonal respirations 18:07 Neck: Hyperflex neck, 18:07 Respiratory: Agonal respirations, coarse breath sounds, 18:07 Neuro: GCS 3, 18:07 ECG was reviewed by the Attending Physician. rt 18:07 ECG was reviewed by the Attending Physician. Vital Signs: 15:55 BP 131 / 101; Pulse 28; Resp 18; Pulse Ox 100% on Ambu bag; mb9 16:05 BP 171 / 134; Pulse 31; Resp 18; Temp 97.5(Ca); Pulse Ox 100% on ETT vent; Weight 99.79 mb9 kg; Height 5 ft. 10 in. ; 16:10 BP 102 / 49; Pulse 42; Resp 18; Pulse Ox 100% on ETT vent; mb9 16:14 BP 93 / 30; Pulse 32; Resp 18; Pulse Ox 100% on ETT vent; mb9 16:20 BP 137 / 63; Pulse 85; Resp 18; Pulse Ox 100% on ETT vent; mb9 16:25 BP 133 / 69; Pulse 97; Resp 18; Pulse Ox 100% on ETT vent; mb9 16:35 BP 113 / 65; Pulse 85; Resp 18; Pulse Ox 100% on ETT vent; mb9 16:50 BP 74 / 61; Pulse 72; Resp 18; Temp 98.4(Ca); Pulse Ox 100% on ETT vent; mb9 17:05 BP 92 / 47; Pulse 75; Resp 18; Pulse Ox 98% on ETT vent; mb9 17:34 BP 90 / 46; Pulse 55; Resp 20; Pulse Ox 88% on R/A; mb9 17:54 BP 61 / 42; Pulse 98; Resp 28; Pulse Ox 84% ; ko1 18:11 BP 61 / 40; Pulse 88; Resp 30; Pulse Ox 85% ; ko1 18:49 BP 80 / 50; Pulse 84; Resp 24; Pulse Ox 86% on R/A; mb9 18:58 BP 90 / 49; Pulse 85; Resp 14; Pulse Ox 85% ; ko1 19:16 BP 101 / 50; Pulse 72; Resp 12; Pulse Ox 87% on R/A; kd3 21:23 BP 110 / 54; Pulse 94; Resp 8; Temp 98.4; Pulse Ox 78% on R/A; bm8 16:05 Body Mass Index 31.57 (99.79 kg, 177.8 cm) mb9 Procedures: 18:07 Intubation: Intubated orally using 4. Hyper angulated with 8.0 mm ETT. was successful rt on first attempt. Ventilated with Ambu bag. ventilator. Tube secured with ETT berg Placement verified by CXR, CO2 detector with (+) color change, auscultating bilateral breath sounds, O2 saturation after procedure was 100 %. Central Line: the site was prepped with Chlorhexidine, a triple lumen catheter was inserted, in the right femoral vein, in 1 attempts. placement was verified, by blood return, the site was dressed with Chlorhexidine impregnated Tegaderm. MDM: 16:31 Patient medically screened. rt 18:07 Differential Diagnosis: Cardiac arrest, dysrhythmia. Data reviewed: vital signs, nurses rt notes. Independent interpretation of the following test(s) in the Emergency Department X-Ray: My interpretation is No pneumothorax seen on interpretation of x-ray images. Care significantly affected by the following chronic conditions: Diabetes. 18:07 ED course: I had a long discussion with the family to include the son, [id number]. rt Son is the patient's surrogate decision maker. Son states that the patient has had poor premorbid quality of life, stating that he mostly spends all day sitting down and has done so for the past 8 years. He states that his father would not want to be put on any form of life support. Long discussion regarding prognosis. Son states that he wishes to have a palliative extubation to be performed and for comfort measures only. Do not believe that this is unreasonable given the patient's poor prognosis. I extubated the patient, dopamine was stopped.. 07/11 16:25 Order name: Glucose, Ancillary Testing; Complete Time: 16:58 EDMS 07/11 16:32 Order name: Basic Metabolic Panel; Complete Time: 17:33 rt 07/11 16:32 Order name: CBC with Diff; Complete Time: 16:58 rt 07/11 16:32 Order name: LFT's; Complete Time: 17:33 rt 07/11 16:32 Order name: Magnesium; Complete Time: 17:33 rt 07/11 16:32 Order name: NT PRO-BNP; Complete Time: 17:33 rt 07/11 16:32 Order name: PT-INR; Complete Time: 17:10 rt 07/11 16:32 Order name: Troponin HS; Complete Time: 17:33 rt 07/11 16:32 Order name: CPK; Complete Time: 17:33 rt 07/11 16:32 Order name: Ptt, Activated; Complete Time: 17:10 rt 07/11 16:32 Order name: Blood Culture Adult (2) rt 07/11 16:32 Order name: Lactate w/ 2H reflex if indic.; Complete Time: 17:33 rt 07/11 16:36 Order name: ABG; Complete Time: 16:58 rt 07/11 19:59 Order name: Urinalysis w/ reflexes EDMS 07/11 16:32 Order name: XRAY Chest (1 view); Complete Time: 16:58 rt 07/11 16:32 Order name: EKG; Complete Time: 16:33 rt 07/11 16:32 Order name: Cardiac monitoring; Complete Time: 16:35 rt 07/11 16:32 Order name: EKG - Nurse/Tech; Complete Time: 16:35 rt 07/11 16:32 Order name: IV Saline Lock; Complete Time: 16:35 rt 07/11 16:32 Order name: Labs collected and sent; Complete Time: 16:35 rt 07/11 16:32 Order name: O2 Per Protocol; Complete Time: 16:35 rt 07/11 16:32 Order name: O2 Sat Monitoring; Complete Time: 16:35 rt 07/11 16:32 Order name: Accucheck; Complete Time: 16:35 rt 07/11 16:32 Order name: IV Saline Lock - Large Bore; Complete Time: 16:35 rt 07/11 16:32 Order name: Vital Signs; Complete Time: 16:35 rt EC:07 Rate is 33 beats/min. Rhythm is regular, 33 heart block. Left axis deviation noted. QRS rt interval is normal. QT interval is normal. No Q waves. 18:07 Rate is 77 beats/min. Rhythm is regular, A fib with No ectopy, Right bundle branch rt block. QRS [place] is Normal. QRS interval is normal. QT interval is normal. No Q waves. Administered Medications: 17:34 Discontinued: DOPamine 5 mcg/kg/min IV at calculated rate Per protocol mb9 16:02 Drug: Atropine IVP 1 mg IVP once Route: IVP; Site: left wrist; mb9 17:14 Follow up: Response: No adverse reaction mb9 16:02 Drug: Lactated Ringers Solution IV 1000 ml IV at 999 ml/hr continuous Route: IV; Rate: mb9 999 ml/hr; Site: left wrist; 21:35 Follow up: Response: No adverse reaction; IV Status: Completed infusion; IV Intake: bm8 1000ml 16:13 Drug: Atropine IVP 1 mg IVP once Route: IVP; Site: left wrist; mb9 17:14 Follow up: Response: No adverse reaction mb9 16:17 Drug: DOPamine 5 mcg/kg/min IV at calculated rate Per protocol Route: IV; Rate: mb9 calculated rate; Site: right femoral; 21:35 Follow up: Response: No adverse reaction; IV Status: Order to discontinue infusion bm8 16:44 Not Given (Physician Discretion): DOPamine 0.5 mcg/kg/min IV at mcg/kg/min continuous mb9 17:09 Drug: fentaNYL (PF) IV 25 mcg/kg/h IV at calculated rate See Administration mb9 Instructions; (Standard concentration 500 mcg / 50 mL NS [10 mcg / 1 mL); Recommended max rate 4 mcg/kg/hr; Titrate 0.25 mcg/kg/hr as often as every 3 minutes to achieve goal (see titration policy); Goal parameter RASS score 0 to -2 Route: IV; Rate: calculated rate; Site: left wrist; 21:24 Follow up: Response: No adverse reaction; IV Status: Infusion continued upon admission bm8 Disposition Summary: 07/12/23 18:37 Hospitalization Ordered Notes: Hospitalization Status: Observation rt Provider: Raúl Machado rt Location: Telemetry/MedSurg (observation) rt Condition: Critical rt Problem: new rt Symptoms: are unchanged rt Bed/Room Type: Standard rt Room Assignment: 222(07/12/23 20:43) vk Diagnosis - Cardiac arrest rt - Third-degree heart block rt - Acute respiratory failure rt Forms: - Medication Reconciliation Form rt - SBAR form rt - Leadership Thank You Letter rt Signatures: Dispatcher [employer] Aniya Dumont RN RN ll1 Khushi White RN RN mb9 Robel Paul MD MD rt Yesi Chung Brad RN bm8 Corrections: (The following items were deleted from the chart) 17:59 16:33 Head Brain Wo [id number] ordered. EDMS EDMS 20:43 18:37 rt vk
[2023-07-12] MEDS ORDERED: ONDANSETRON 4 MG/2 ML VIAL IV PRN (19:54)
[2023-07-12] MEDS ORDERED: ACETAMINOPHEN 325 MG TABLET PO PRN (19:54)
[2023-07-12] MEDS ORDERED: MORPHINE 2 MG/ML SYR IV PRN ×2 (19:56→23:11)
--- NOTE | 2023-07-12 19:58 | P.HP ---
Certification for Inpatient Patient admitted to: Inpatient With expected LOS: >2 Midnights Practitioner: I am a practitioner with admitting privileges, knowledge of patient current condition, hospital course, and medical plan of care. Services: Services provided to patient in accordance with Admission requirements found in Title 42 Section 412.3 of the Code of Federal Regulations Patient History Date of Service: 07/12/23 Reason for admission: S/p CPR History of Present Illness: 87 yrs old Male past medical history of diabetes, hypertension, hyperlipidemia, overactive bladder, who was brought to ER status post cardiac arrest. Initially was assessed in the ER and was ROSC was obtained and was intubated. Family requested comfort measures and was extubated terminally. Patient is being admitted for hospice and palliative care. Patient is altered hence no history can be obtained Patient admitted for palliative care Allergies No Known Allergies Allergy (Verified 06/15/13 15:56) Home medications list reviewed: Yes Home Medications: Amlodipine [Norvasc*] 10 mg PO DAILY 06/16/13 Bimatoprost [Lumigan Opthalmic Drops*] 1 gtt OPTH BID 06/16/13 Olmesartan/Hydrochlorothiazide [Benicar Hct 40-12.5 mg Tablet] 40 mg PO DAILY 06/16/13 Valacyclovir [Valtrex*] 500 mg PO DAILY 06/16/13 levoFLOXacin [Levaquin*] 500 mg PO DAILY #7 tab 06/18/13 metroNIDAZOLE [Flagyl*] 500 mg PO TID #20 tablet 06/18/13 Hydrocodone 7.5/APAP 325 [[place] 7.5/325 mg*] 1 tab PO Q6H PRN #20 tab 06/19/13 - Past Medical/Surgical History Diabetic: No Past Medical History: Reviewed- Non-Contributory -: pre diabetic handled with diet -: htn Past Surgical History: Reviewed- Non-Contributory -: lap cholley -: knee sx -: rt implant for cataract - Social History Smoking Status: Never smoker Alcohol use: Yes CD- Drugs: No Caffeine use: Yes Review of Systems is unable to be obtained Physical Examination - Vital Signs Temperature: 97.1 F Blood Pressure: 88/65 Pulse: 102 Respirations: 16 Pulse Ox (%): 98 - Physical Exam General: Severe distress, Confused HEENT: Atraumatic, Normocephalic Neck: Supple, No Thyromegaly Respiratory: Normal air movement, Diminished Cardiovascular: No edema, Regular rate/rhythm, Normal S1 S2 Capillary refill: <2 Seconds Gastrointestinal: Soft and benign, W/out hepatosplenomegaly, No ascites Musculoskeletal: No clubbing, No swelling Integumentary: No rashes Neurological: Other (Altered ) Lymphatics: No axilla or inguinal lymphadenopathy - Studies Laboratory Data (last 24 hrs) 07/12/23 07/12/23 07/12/23 16:44 16:44 16:44 WBC 12.70 H Hgb 12.1 L Hct 37.2 L Plt Count 157 PT 10.9 INR 0.99 APTT 23.8 L Sodium 140 Potassium 4.0 BUN 34 H Creatinine 1.33 H Glucose 292 H Magnesium 2.2 Total Bilirubin 0.4 AST 224 H ALT 176 H Alkaline Phosphatase 83 Assessment and Plan - Problems (Diagnosis) (1) Cardiac arrest with successful resuscitation Current Visit: Yes Status: Acute Plan: Cardiac arrest status post CPR with ROSC Palliative care was patient with family Patient was terminally extubated Supportive measures Morphine Ativan as needed Case management consulted for hospice care - Advance Directives Does patient have a Living Will: No Does patient have a Durable POA for Healthcare: Yes - Code Status/Comfort Care Code Status: Do Not Attempt Resuscitat Time Spent Managing Pts Care (In Minutes): 48
[2023-07-12] MEDS ORDERED: LORazepam 2 MG/ML VIAL ONE (21:38)
[2023-07-12] MEDS: LORazepam 2 MG/ML VIAL IV PRN (21:48)
[2023-07-12 23:02] VITALS: BP 110/54; TEMP 98.4; O2SAT 78
[2023-07-12] MEDS ORDERED: LORazepam 2 MG/ML VIAL IV PRN (23:10)
[2023-07-12] MEDS: LORazepam 2 MG/ML VIAL IV ONE (23:10)
[2023-07-12 23:52] VITALS: BMI 32.6
[2023-07-13] MEDS ORDERED: ATROPINE SULF 1 MG/10 ML SYR IV ONE (00:01)
--- NOTE | 2023-07-13 01:39 | P.DS ---
Admission Date: 07/12/23 Discharge Date: 07/13/23 Disposition: Discharge Condition: Reason for Admission: S/p CPR - Problems (1) Cardiac arrest with successful resuscitation Current Visit: Yes Status: Acute Brief History of Present Illness: 87 yrs old Male past medical history of diabetes, hypertension, hyperlipidemia, overactive bladder, who was brought to ER status post cardiac arrest. Initially was assessed in the ER and was ROSC was obtained and was intubated. Family requested comfort measures and was extubated terminally. Patient is being admitted for hospice and palliative care. Patient is altered hence no history can be obtained Patient admitted for palliative care Hospital Course: Patient was placed on comfort measures only Started on Ativan and morphine as needed Patient subsequently Cardiorespiratory arrest Acute hypoxic respiratory failure Acute hypoxic encephalopathy Multiorgan failure Elevated LFTs Diabetes Hypertension overactive bladder Vital Signs/Physical Exam: Temp Pulse Resp BP Pulse Ox 98.4 F 94 H 8 L 110/54 L 89 L 07/12/23 22:53 07/12/23 22:53 07/12/23 22:53 07/12/23 22:53 07/12/23 22:30 Laboratory Data at Discharge: WBC 12.70 thou/uL (4.3-10.9) H 07/12/23 16:44 Hgb 12.1 g/dL (13.6-17.9) L 07/12/23 16:44 Hct 37.2 % (39.6-49.0) L 07/12/23 16:44 Plt Count 157 thou/uL (152-406) 07/12/23 16:44 PT 10.9 SECONDS (9.5-12.5) 07/12/23 16:44 INR 0.99 07/12/23 16:44 APTT 23.8 SECONDS (24.3-36.9) L 07/12/23 16:44 Sodium 140 mEq/L (136-145) 07/12/23 16:44 Potassium 4.0 mEq/L (3.5-5.1) 07/12/23 16:44 BUN 34 mg/dL (7-18) H 07/12/23 16:44 Creatinine 1.33 mg/dL (0.70-1.30) H 07/12/23 16:44 Glucose 292 mg/dL (74-106) H 07/12/23 16:44 Magnesium 2.2 mg/dL (1.6-2.4) 07/12/23 16:44 Total Bilirubin 0.4 mg/dL (0.2-1.0) 07/12/23 16:44 AST 224 U/L (15-37) H 07/12/23 16:44 ALT 176 U/L (16-61) H 07/12/23 16:44 Alkaline Phosphatase 83 U/L (45-117) 07/12/23 16:44 Home Medications: Amlodipine [Norvasc*] 10 mg PO DAILY 06/16/13 Bimatoprost [Lumigan Opthalmic Drops*] 1 gtt OPTH BID 06/16/13 Olmesartan/Hydrochlorothiazide [Benicar Hct 40-12.5 mg Tablet] 40 mg PO DAILY 06/16/13 Valacyclovir [Valtrex*] 500 mg PO DAILY 06/16/13 levoFLOXacin [Levaquin*] 500 mg PO DAILY #7 tab 06/18/13 metroNIDAZOLE [Flagyl*] 500 mg PO TID #20 tablet 06/18/13 Hydrocodone 7.5/APAP 325 [[place] 7.5/325 mg*] 1 tab PO Q6H PRN #20 tab 06/19/13 Followup: Philip Dawson MD [Primary Care Provider] -
--- NOTE | 2023-07-13 14:13 | EKG ---
Test Date: 2023-07-12 Test Time: 16:46:18 Spine Surgeon: NELI MEASUREMENT RESULTS: Intervals: Rate: 77 [place]: QRSD: 142 QT: 416 QTc: 470 [place]: P: [place]: QRS: 41 T: -23 INTERPRETIVE STATEMENTS: Atrial fibrillation Right bundle branch block T wave abnormality, consider inferior ischemia Abnormal ECG Compared to ECG 07/12/2023 16:00:29 Right bundle-branch block now present T-wave abnormality now present Possible ischemia now present Bradycardia, nonsinus no longer present AV block, complete (third-degree) no longer present Left-axis deviation no longer present ST (T wave) deviation no longer present Electronically Signed On 07-13-23 14:10:07 CDT by Loy Sainz
--- NOTE | 2023-07-13 14:13 | EKG ---
Test Date: 2023-07-12 Test Time: 16:00:29 Employment Officer: DIANA MEASUREMENT RESULTS: Intervals: Rate: 33 SD: QRSD: 82 QT: 440 QTc: 325 [place]: P: -89 [place]: QRS: -12 T: -15 INTERPRETIVE STATEMENTS: Complete heart block 3rd degree. Left axis deviation Low voltage QRS Nonspecific ST abnormality Compared to ECG 11/19/2022 00:13:05 Bradycardia, nonsinus now present AV block, complete (third-degree) now present Low QRS voltage now present ST (T wave) deviation now present Sinus rhythm no longer present Electronically Signed On 07-13-23 14:11:18 CDT by Loy Sainz
== END 2023-07-13 00:02 | disposition expired | DRG 208 ==
LOC: ER 15:59 → ERHOLD 19:54 → 2ND 21:35
PROVIDERS: ADMIT Family Medicine; ATTEND Hospitalist
PROC: 5A1935Z Respiratory Ventilation, Less than 24 Consecutive Hours (ICD-10-PCS; principal; 2023-07-12)
PROC: 0BH17EZ Insertion of Endotracheal Airway into Trachea, Via Natural or Artificial Opening (ICD-10-PCS; 2023-07-12)
PROC: 4A033R1 Measurement of Arterial Saturation, Peripheral, Percutaneous Approach (ICD-10-PCS; 2023-07-12)
PROC: 5A12012 Performance of Cardiac Output, Single, Manual (ICD-10-PCS; 2023-07-12)
DX: J96.01 Acute respiratory failure with hypoxia (principal); E87.20 Acidosis, unspecified; G93.1 Anoxic brain damage, not elsewhere classified; I44.2 Atrioventricular block, complete; I46.9 Cardiac arrest, cause unspecified; N32.81 Overactive bladder; E11.9 Type 2 diabetes mellitus without complications; E78.00 Pure hypercholesterolemia, unspecified; I10 Essential (primary) hypertension; R79.89 Other specified abnormal findings of blood chemistry; Z66 Do not resuscitate; Z51.5 Encounter for palliative care; Z90.49 Acquired absence of other specified parts of digestive tract; Z79.899 Other long term (current) drug therapy
CPT/HCPCS: 31500; 36415; 36600; 51702; 71045; 80048; 80076; 82550; 82805; 82947; 83605; 83735; 83880; 84484; 85025; 85610; 85730; 87040; 93005; 94002; 99291; 99292; J0461; J1265; J3010